=== PATIENT | female | born 1975 | race Caucasian/White ===

== ENCOUNTER 2019-10-17 22:17 | Emergency (ER) | payer OTHER, MEDICARE, SELFPAY ==
--- NOTE | ~2019-10-17 | XR_ITS ---
EXAMINATION: XR foot RT min 3V EXAM DATE: 10/17/2019 23:07 INDICATION: Stubbed toes on chair, 4th and 5th digit pain. TECHNIQUE: Right foot dorsoplantar, lateral and oblique projections obtained and reviewed. There is no prior study for comparison. FINDINGS: Right metatarsal bones unremarkable. There are no acute fractures or dislocations identifi ed. There is no subcutaneous gas. The soft tissue is unremarkable. There are no radiopaque foreig n bodies. IMPRESSION: 1. Right foot exam without acute osseous findings. Reviewed, dictated and finalized at location B.
[2019-10-17 22:26] VITALS: BP 131/95; PULSE 96; RESP 20; TEMP 36.7; O2SAT 97
--- NOTE | 2019-10-17 23:28 | ED.LOWEXIN ---
HPI - Extremity Injury (Lower) General Chief Complaint: Extremity Injury, Lower Stated Complaint: foot pain Time Seen by Provider: 10/17/19 22:26 History of Present Illness HPI Narrative: Patient is a 44-year-old female who presents to the ER after striking her foot on the spindle of a chair while chasing child. This occurred at about 3 in the afternoon. Has been unable to bear weight on the affected part of her foot due to pain. Worse when she flexes and extends at the toes well. No numbness or tingling. Mainly tender over the fourth digit is mildly over the fifth digit. Related Data Home Medications Medication Instructions Recorded Confirmed insulin aspart U-100 [Novolog unit SUBCUT 10/17/19 Flexpen U-100 Insulin] metformin 500 mg PO BID 10/17/19 10/17/19 omeprazole 20 mg PO DAILY 10/17/19 10/17/19 sumatriptan succinate 25 mg PO DAILY 10/17/19 10/17/19 Allergies Allergy/AdvReac Type Severity Reaction Status Date / Time iodine Allergy Mild Rash Verified 10/17/19 22:33 Parada Allergy Severe Anaphylactic Uncoded 10/17/19 22:33 Shock Review of Systems Musculoskeletal: Musculoskeletal: Reports arthralgias, Denies joint swelling and Denies muscle cramps Neurologic: Denies focal weakness and Denies numbness PMFSH Past Medical History Medical History (Updated 10/17/19 @ 23:34 by Aquilino Alford MD) COPD (chronic obstructive pulmonary disease) Diabetes History of bipolar disorder Hyperlipidemia associated with type 2 diabetes mellitus Surgical History Surgical History (Updated 10/17/19 @ 23:32 by Aquilino Alford MD) History of cholecystectomy Social History Social History (Updated 10/17/19 @ 23:32 by Aquilino Alford MD) Smoking status: Never smoker Exam Narrative: Exam Narrative: GENERAL: Well-appearing, well-nourished, and in no acute distress. HEAD: Normocephalic, atraumatic. EXTREMITIES: Tender to palpation of the fourth and fifth digits of the right toe as well as the MTPs. No swelling or bruising. SKIN: Warm, dry, no rash. NEURO: No focal deficits. Alert and oriented x3. PSYCH: Normal mood and affect. Course Course Emergency Course: Nurse applied brandt tape and applied a hard soled shoe and instructed patient on crutch use. Vital Signs Vital signs: Vital Signs Temperature 98.1 F 10/17/19 22:26 Pulse Rate 96 10/17/19 22:26 Respiratory Rate 20 10/17/19 22:26 Blood Pressure 131/95 H 10/17/19 22:26 Pulse Oximetry 97 10/17/19 22:26 Temperature 98.1 F 10/17/19 22:26 Pulse Rate 96 10/17/19 22:26 Respiratory Rate 20 10/17/19 22:26 Blood Pressure 131/95 H 10/17/19 22:26 Pulse Oximetry 97 10/17/19 22:26 MDM - Extremity Injury (Lower) Imaging Data My impression: XR right foot: Questionable fracture of the distal aspect of the proximal phalanx of the fourth digit. Discharge Plan Discharge Clinical Impression: Fracture of toe Patient Disposition: Home, Self-Care Condition: Stable Instructions: Toe Fracture (ED) Additional Instructions: Your weight as tolerated. Over the next week you would benefit from continue to wear your hard soled shoe and using crutches while you heal. There is a questionable fracture on x-ray of the fourth toe of your foot. Prescriptions: New hydrocodone-acetaminophen 5-325 mg tablet 1 tablet PO Q6H PRN (Reason: pain) Qty: 12 RF: 0 No Action metformin 500 mg Tablet 500 mg PO BID RF: 0 sumatriptan succinate 25 mg tablet 25 mg PO DAILY RF: 0 omeprazole 20 mg capsule,delayed release(DR/EC) 20 mg PO DAILY RF: 0 insulin aspart U-100 [Novolog Flexpen U-100 Insulin] 100 unit/mL (3 mL) insulin pen SUBCUT RF: 0 Follow-up/Referrals: Wilmer Carnes MD [Physician] - 1 Week PHYSICIAN,[employer] [Primary Care Provider] -
[2019-10-17 23:49] VITALS: BP 128/79; PULSE 88; RESP 18; O2SAT 97
== END 2019-10-17 23:54 | disposition home or self-care (01) ==
PROVIDERS: Emergency Provider Emergency Medicine
DX: S92.531A Displaced fracture of distal phalanx of right lesser toe(s), initial encounter for closed fracture (principal); J44.9 Chronic obstructive pulmonary disease, unspecified; E11.9 Type 2 diabetes mellitus without complications; Z79.4 Long term (current) use of insulin; Z79.84 Long term (current) use of oral hypoglycemic drugs; E78.5 Hyperlipidemia, unspecified; W22.03XA Walked into furniture, initial encounter
CPT/HCPCS: 73630; 99284

== ENCOUNTER 2019-10-26 10:23 | Outpatient (CLI) | payer OTHER, MEDICARE, SELFPAY ==
--- NOTE | ~2019-10-26 | XR_ITS ---
EXAMINATION: XR abdomen/kub 1V INDICATION: Abdominal pain with recent constipation TECHNIQUE: Supine views of the abdomen were obtained on 2 radiographs. COMPARISON: None FINDINGS: The bowel gas pattern is normal. There are no dilated loops of bowel. Surgical clips in the right upper quadrant are likely from prior cholecystectomy. Surgical changes noted at L4-5. There is mild bilateral hip osteoarthritis. The visualized lung bases are clear. IMPRESSION: 1. Unremarkable abdominal radiographs. Reviewed, dictated and finalized at location A.
[2019-10-26 12:06] LABS: Basophils Absolute Auto 0.1 K/mm3 (0.0-0.1); Basophils Percent Auto 0.9 % (0.2-1.2); Eosinophils Absolute Auto 0.7 K/mm3 (0-0.3); Eosinophils Percent Auto 8.5 % (0-4.4); Hematocrit 43.4 % (37.0-47.0); Hemoglobin 14.5 g/dL (12.0-15.0); Immature Granulocyte Absolute 0.02 K/mm3 (0.00-0.031); Immature Granulocyte Percent A 0.3 % (0-0.5); Lymphocytes Absolute Auto 1.96 K/mm3 (0.9-3.2); Lymphocytes Percent Auto 25.3 % (18.3-44.2); Mean Corpuscular HGB Conc 33.4 g/dl (32-36); Mean Corpuscular Hemoglobin 27.1 pg (26-34); Mean Platelet Volume 9.8 fl (7.4-10.4); Monocytes Absolute Auto 0.3 K/mm3 (0.1-0.6); Monocytes Percent Auto 4.4 % (2.6-8.5); Neutrophils Absolute Auto 4.7 K/mm3 (1.3-6.7); Neutrophils Percent Auto 60.6 % (45.5-73.1); Platelet Count Result 278 k/mm3 (150-375); Red Blood Count 5.36 M/mm3 (4.2-5.4); Red Cell Distribution Width 13.8 % (11.5-14.5); White Blood Count 7.8 K/mm3 (4.5-10.0)
[2019-10-26 12:24] LABS: Alanine Aminotransferase 63 U/L (4-35); Albumin Level 4.2 g/dL (3.5-5.1); Alkaline Phosphatase 83 U/L (38-126); Anion Gap 6 mmol/L (8-16); Aspartate Amino Transferase 53 U/L (14-36); Blood Urea Nitrogen 11 mg/dL (7-17); Calcium 9.1 mg/dL (8.4-10.2); Carbon Dioxide 24 mmol/L (22-30); Chloride 104 mmol/L (98-107); Cholesterol 249 mg/dL (0-200); Estimated Glomerular Filt Rate > 60; Glucose 263 mg/dL (65-105); HDL Direct 50 mg/dL; Potassium 4.1 mmol/L (3.4-5.0); Sodium 134 mmol/L (137-145); Triglycerides 226 mg/dL (<150)
[2019-10-26 12:32] LABS: Microalbumin Urine Random 15.4 mg/L (0-16.7)
[2019-10-26 12:33] LABS: Creatinine Urine 197.7 mg/dL; MALB Creatinine Ratio 7.8 mg/g (0-30)
[2019-10-26 12:35] LABS: LDL Cholesterol Direct 149 mg/dL
[2019-10-26 12:37] LABS: Hemoglobin A1C 8.7 % (<5.7)
[2019-10-26 12:54] LABS: Thyroid Stimulating Hormone 0.528 uIU/mL (0.465-4.680)
[2019-10-26 13:16] LABS: Free T4 Free Thyroxine 1.29 ng/mL (0.78-2.19); Vitamin D 25 Hydroxy 32.6 ng/mL
== END 2019-10-26 10:24 | disposition home or self-care (01) ==
LOC: ANHIMG 10:38
PROVIDERS: PCP Family Medicine; Visit Provider Nurse Practitioner
DX: R10.9 Unspecified abdominal pain (principal); K59.00 Constipation, unspecified
CPT/HCPCS: 36415; 74018; 80053; 80061; 82043; 82306; 83036; 84439; 84443; 84480; 85025

== ENCOUNTER 2020-06-06 14:34 | Outpatient (CLI) | payer MEDICARE, SELFPAY | END 2020-06-06 14:35 | disposition home or self-care (01) | LOC: ANHCOVIDVC 14:34 | PROVIDERS: PCP Family Medicine | DX: Z23 Encounter for immunization (principal) | CPT/HCPCS: 0001A; 91300 ==

== ENCOUNTER 2020-06-27 14:39 | Outpatient (CLI) | payer MEDICARE, SELFPAY | END 2020-06-27 14:40 | disposition home or self-care (01) | LOC: ANHCOVIDVC 14:40 | PROVIDERS: PCP Family Medicine | DX: Z23 Encounter for immunization (principal) | CPT/HCPCS: 0002A; 91300 ==

== ENCOUNTER 2020-11-10 07:52 | Outpatient (CLI) | payer MEDICARE, SELFPAY ==
[2020-11-10 08:43] LABS: Basophils Absolute Auto 0.1 K/mm3 (0.0-0.1); Basophils Percent Auto 0.7 % (0.2-1.2); Eosinophils Absolute Auto 0.4 K/mm3 (0-0.3); Eosinophils Percent Auto 6.4 % (0-4.4); Hematocrit 40.8 % (37.0-47.0); Hemoglobin 13.7 g/dL (12.0-15.0); Immature Granulocyte Absolute 0.01 K/mm3 (0.00-0.031); Immature Granulocyte Percent A 0.1 % (0-0.5); Lymphocytes Absolute Auto 1.54 K/mm3 (0.9-3.2); Mean Corpuscular HGB Conc 33.6 g/dl (32-36); Mean Corpuscular Hemoglobin 27.4 pg (26-34); Mean Corpuscular Volume 81.6 fl (80-100); Mean Platelet Volume 9.7 fl (7.4-10.4); Monocytes Absolute Auto 0.3 K/mm3 (0.1-0.6); Monocytes Percent Auto 4.8 % (2.6-8.5); Neutrophils Absolute Auto 4.4 K/mm3 (1.3-6.7); Platelet Count Result 258 k/mm3 (150-375); Red Cell Distribution Width 13.9 % (11.5-14.5); White Blood Count 6.7 K/mm3 (4.5-10.0)
[2020-11-10 09:19] LABS: Alanine Aminotransferase 92 U/L (4-35); Albumin Level 4.2 g/dL (3.5-5.1); Alkaline Phosphatase 79 U/L (38-126); Anion Gap 9 mmol/L (8-16); Aspartate Amino Transferase 70 U/L (14-36); Bilirubin,Total 1.2 mg/dL (0.2-1.3); Blood Urea Nitrogen 10 mg/dL (7-17); CRP < 0.5 mg/dL (<1.0); Carbon Dioxide 21 mmol/L (22-30); Chloride 106 mmol/L (98-107); Creatine Kinase 65 U/L (30-135); Estimated Glomerular Filt Rate > 60; Glucose 252 mg/dL (65-110); Potassium 4.2 mmol/L (3.4-5.0); Sodium 136 mmol/L (137-145)
[2020-11-10 09:22] LABS: Complement C3 130 mg/dL (88-165); Immunoglobulin A 148 mg/dL (70-400)
[2020-11-10 09:45] LABS: Total Triiodothyronine (T3) 1.18 NG/ML (0.97-1.69)
[2020-11-10 10:14] LABS: Erythrocyte Sedimentation Rate 23 mm/hr (0-20)
[2020-11-10 10:23] LABS: Rheumatoid Factor < 8.6 IU/ML (<12)
[2020-11-10 11:26] LABS: Hepatitis C Virus Antibody Negative (Negative)
[2020-11-13 18:59] LABS: ANA Pattern Nuclear, Speckled; Anti Nuclear Antibody Titer >=1:1280 (Negative)
[2020-11-13 19:59] LABS: Anti Centromere B Antibody <1.0; Chromatin Antibody <1.0; RNP Antibodies <1.0; SS-A <1.0; SS-B <1.0; Scleroderma 70 Antibody <1.0
[2020-11-14 23:57] LABS: Histone Antibody <1.0 U (<1.0)
[2020-11-15 11:09] LABS: Complement Total CH50 >60 U/mL (31-60)
== END 2020-11-10 07:53 | disposition home or self-care (01) ==
PROVIDERS: PCP Family Medicine; Visit Provider Nurse Practitioner
DX: M79.642 Pain in left hand (principal); M79.641 Pain in right hand
CPT/HCPCS: 36415; 80053; 82550; 82784; 83516; 84480; 84550; 85025; 85652; 86038; 86039; 86140; 86160; 86162; 86225; 86235; 86430; 86803

== ENCOUNTER 2021-03-15 10:37 | Emergency (ER) | payer MEDICARE, SELFPAY ==
--- NOTE | ~2021-03-15 | XR_ITS ---
EXAMINATION: XR chest 1V portable DATE: 03/15/2021 11:05 INDICATION: Cough, shortness of breath. COVID positive. TECHNIQUE: frontal view of the chest was obtained. COMPARISON: None FINDINGS: The lungs are clear with no focal airspace opacities, pulmonary edema, pleural effusion or pneumothor ax. The cardiomediastinal silhouette is normal. Mild scattered degenerative skeletal changes in the s pine and bilateral shoulders. IMPRESSION: 1. No acute cardiopulmonary disease. Reviewed, dictated and finalized at location A. PHERE ARCHITECT
[2021-03-15 10:40] VITALS: BP 170/84; PULSE 85; RESP 16; TEMP 36.6; O2SAT 97
[2021-03-15 11:24] VITALS: O2SAT 98
[2021-03-15] MEDS: IPRATROPIUM BR 0.02% INH SOLN 0.5 MG/2.5 ML VIAL INHALATION (11:26)
[2021-03-15] MEDS: ALBUTEROL SULFATE NEB 2.5 MG/0.5 ML INH 5 MG INHALATION (11:26)
[2021-03-15 11:29] VITALS: PULSE 81; RESP 21
[2021-03-15 12:10] VITALS: BP 133/75; PULSE 88; O2SAT 96
--- NOTE | 2021-03-15 12:47 | ED.GENADULT ---
HPI - General Adult General Chief complaint: Upper Respiratory Infection <Nati Wallis PA-C - Last Filed: 03/15/21 13:37> Stated complaint: fever, sob <Nati Wallis PA-C - Last Filed: 03/15/21 13:37> Time Seen by Provider: 03/15/21 10:50 <Nati Wallis PA-C - Last Filed: 03/15/21 13:37> Source: patient <NATALY Miles Last Filed: 03/15/21 13:37> Mode of arrival: ambulatory <NATALY Miles Last Filed: 03/15/21 13:37> Limitations: no limitations <NATALY Miles Last Filed: 03/15/21 13:37> History of Present Illness HPI narrative: Patient is a 45-year-old female with asthma presenting chief complaint of chest congestion and low-grade fevers over the past few days. Patient reports that she has had a cough. She reports she has been using her albuterol inhaler but has not noticed any wheezing. Patient reports that she saw her primary care provider 2 days ago who prescribed hydrochlorothiazide, but she has not taken it. Patient reports that she has a history of bronchitis and pneumonia so she wants to make sure that was not the cause of her symptoms.Patient denies chest pain, n/v/d, or any other emergent symptoms. <Nati Wallis PA-C - Last Filed: 03/15/21 13:37> Related Data Home medications: Home Medications Medication Instructions Recorded Confirmed insulin aspart U-100 [Novolog unit SUBCUT 10/17/19 Flexpen U-100 Insulin] metformin 500 mg PO BID 10/17/19 10/17/19 omeprazole 20 mg PO DAILY 10/17/19 10/17/19 sumatriptan succinate 25 mg PO DAILY 10/17/19 10/17/19 <Nati Wallis PA-C - Last Filed: 03/15/21 13:37> Allergies/adverse reactions: Allergies Allergy/AdvReac Type Severity Reaction Status Date / Time iodine Allergy Mild Rash Verified 10/17/19 22:33 Parada Allergy Severe Anaphylactic Uncoded 10/17/19 22:33 Shock <Nati Wallis PA-C - Last Filed: 03/15/21 13:37> Review of Systems Review of Systems: CONSTITUTIONAL: Reports intermittent low-grade fever denies chills, or sweats. EYES: Denies visual changes, redness, or discharge. ENT: Denies rhinorrhea, congestion, sore throat, or otalgia. CARDIOVASCULAR: Denies chest pain, palpitations, or edema. RESPIRATORY: Reports cough and chest congestion GASTROINTESTINAL: Denies abdominal pain, nausea, vomiting, or diarrhea. GENITOURINARY: Denies dysuria or hematuria. SKIN: Denies rash or itching. MUSCULOSKELETAL: Denies back pain, joint pain, or myalgia. NEUROLOGIC: Denies headache, numbness, dizziness, or weakness. PSYCHIATRIC: Denies anxiety or depression. <Nait Wallis PA-C - Last Filed: 03/15/21 13:37> PMFSH Past Medical History Medical History: Medical History (Updated 03/15/21 @ 12:52 by Nati Wallis PA-C) COPD (chronic obstructive pulmonary disease) Diabetes History of bipolar disorder Hyperlipidemia associated with type 2 diabetes mellitus <Nati Wallis PA-C - Last Filed: 03/15/21 13:37> Surgical History Surgical History: Surgical History (Updated 10/17/19 @ 23:32 by Aquilino Alford MD) History of cholecystectomy <Nati Wallis PA-C - Last Filed: 03/15/21 13:37> Social History Social History: Social History (Updated 10/17/19 @ 23:32 by Aquilino Alford MD) Smoking status: Never smoker <Nati Wallis PA-C - Last Filed: 03/15/21 13:37> Exam Narrative: GENERAL: Well-appearing, well-nourished, and in no acute distress. HEAD: Normocephalic, atraumatic. EYES: PERRLA and EOMI. CHEST: Clear to auscultation. No respiratory distress. No wheezes rales or rhonchi. No tachypnea. Air movement noted. HEART: Regular rate and rhythm. EXTREMITIES: Normal range of motion. No edema. SKIN: Warm, dry, no rash. NEURO: No focal deficits. Alert and oriented x3. PSYCH: Normal mood and affect. <Nati Wallis PA-C - Last Filed: 03/15/21 13:37> Course BUSINESS AGENT/PA Physician Supervision For this patient encounter, I reviewe
[2021-03-15 13:27] VITALS: BP 132/77; PULSE 82; RESP 18; TEMP 37; O2SAT 100
== END 2021-03-15 13:29 | disposition home or self-care (01) ==
PROVIDERS: Emergency Provider Emergency Medicine; PCP Family Medicine
DX: U07.1 COVID-19 (principal); E11.69 Type 2 diabetes mellitus with other specified complication; E78.5 Hyperlipidemia, unspecified; J44.9 Chronic obstructive pulmonary disease, unspecified; Z79.4 Long term (current) use of insulin; Z79.84 Long term (current) use of oral hypoglycemic drugs; Z87.01 Personal history of pneumonia (recurrent)
CPT/HCPCS: 71045; 94640; 99283

== ENCOUNTER 2021-06-05 10:03 | Emergency (ER) | payer MEDICARE, SELFPAY ==
[2021-06-05 10:07] VITALS: BP 126/90; PULSE 98; RESP 12; TEMP 36.4; O2SAT 100
[2021-06-05 10:13] VITALS: BP 126/90; PULSE 98; RESP 12; TEMP 36.4; O2SAT 100
--- NOTE | 2021-06-05 10:14 | ED.URI ---
HPI - URI/Sore Throat General Chief Complaint: Upper Respiratory Infection Stated Complaint: COUGH/DRY THROAT/WEAK Time Seen by Provider: 06/05/21 10:14 Source: patient Mode of arrival: ambulatory Limitations: no limitations History of Present Illness HPI Narrative: 45-year-old female presents with complaint of runny nose, nasal congestion, postnasal drainage, hoarse voice, ears itching, cough for 1 week. States that she is getting short of breath with coughing fits and with exertion over the last 2 to 3 days. Reports history of COPD and asthma and has been out of inhalers. Did have nebulizer treatment but ran out of that 1 week ago. Does have appointment with new product test specialist coming up. Denies fever, chills, body aches. Had her Covid booster 1 week ago. Took Zyrtec for 1 to 2 days but did not help so she stopped. History of seasonal allergies when she lived in [place] but reports no problems here since. All systems reviewed and negative except as noted above. Related Data Home Medications Medication Instructions Recorded Confirmed insulin aspart U-100 [Novolog unit SUBCUT 10/17/19 Flexpen U-100 Insulin] metformin 500 mg PO BID 10/17/19 10/17/19 omeprazole 20 mg PO DAILY 10/17/19 10/17/19 sumatriptan succinate 25 mg PO DAILY 10/17/19 10/17/19 Allergies Allergy/AdvReac Type Severity Reaction Status Date / Time iodine Allergy Mild Rash Verified 10/17/19 22:33 Parada Allergy Severe Anaphylactic Uncoded 10/17/19 22:33 Shock Review of Systems Review of Systems: CONSTITUTIONAL: Denies fever, chills, or sweats. EYES: Denies visual changes, redness, or discharge. ENT: Reports rhinorrhea, congestion, sore throat. Denies otalgia. CARDIOVASCULAR: Denies chest pain, palpitations, or edema. RESPIRATORY: Reports cough or dyspnea. GASTROINTESTINAL: Denies abdominal pain, nausea, vomiting, or diarrhea. GENITOURINARY: Denies dysuria or hematuria. SKIN: Denies rash or itching. MUSCULOSKELETAL: Denies back pain, joint pain, or myalgia. NEUROLOGIC: Denies headache, numbness, or weakness. PSYCHIATRIC: Denies anxiety or depression. All other systems reviewed are negative, except as documented in HPI. [facility] Past Medical History Medical History (Updated 06/05/21 @ 10:23 by Viola Nelson NP) COPD (chronic obstructive pulmonary disease) Diabetes History of bipolar disorder Hyperlipidemia associated with type 2 diabetes mellitus Surgical History Surgical History (Updated 10/17/19 @ 23:32 by Aquilino Alford MD) History of cholecystectomy Social History Social History (Updated 10/17/19 @ 23:32 by Aquilino Alford MD) Smoking status: Never smoker Comments At time of signature, agree with nursing past medical, surgical, social and family history. There is no relevant family history pertinent to the presenting complaint. Exam Narrative: GENERAL: This is a well-nourished, well-developed patient, in no apparent distress. HEAD: normocephalic, atraumatic. EYES: PERRL. Sclera clear/white. Vision is grossly intact. EARS: External ears normal, auditory canals clear and without drainage, TMs normal without perforation. Hearing grossly intact. NOSE: External nose normal with clear nasal discharge, nares without redness, no rhinorrhea. THROAT: Mucous membranes moist, mild erythema to posterior pharynx with clear postnasal drainage. Hoarse voice noted. NECK: Neck supple, non-tender without lymphadenopathy, masses or thyromegaly. CARDIOVASCULAR: Regular rate and rhythm without murmurs, gallops, or rubs. RESPIRATORY: Clear to auscultation. Breath sounds equal bilaterally. Mild expiratory wheeze to lower lobes. SKIN: warm, Dry, intact with no suspicious lesions or rash, good texture and turgor. NEURO: awake, alert, and oriented to person, place and time. There were no obvious focal neurologic abnormalities. EXTREMITIES: Normal range of motion to all extremities. Course Course Level of Care: Express Care Visit
== END 2021-06-05 10:29 | disposition home or self-care (01) ==
PROVIDERS: Emergency Provider Nurse Practitioner Family; PCP Family Medicine
DX: J06.9 Acute upper respiratory infection, unspecified (principal); J30.2 Other seasonal allergic rhinitis; J04.0 Acute laryngitis; J44.9 Chronic obstructive pulmonary disease, unspecified; E11.9 Type 2 diabetes mellitus without complications; E78.5 Hyperlipidemia, unspecified; Z79.84 Long term (current) use of oral hypoglycemic drugs; Z79.4 Long term (current) use of insulin
CPT/HCPCS: 99213; G0463

== ENCOUNTER 2021-08-06 15:20 | Outpatient (CLI) | payer MEDICARE, SELFPAY ==
--- NOTE | ~2021-08-06 | US_ITS ---
EXAMINATION: US soft tissue head and neck DATE: 08/06/2021 15:46 INDICATION: Enlarged lymph node. TECHNIQUE: Multiple grayscale and Doppler ultrasound images of the neck were obtained. COMPARISON: None FINDINGS: There are normal lymph nodes in right neck. IMPRESSION: 1. No abnormal neck mass or lymphadenopathy. Reviewed, dictated and finalized at location B.
== END 2021-08-06 15:21 ==
LOC: MICIMG 15:22
PROVIDERS: PCP Family Medicine; Visit Provider Nurse Practitioner Adult Health
DX: R59.1 Generalized enlarged lymph nodes (principal)
CPT/HCPCS: 76536

== ENCOUNTER 2021-09-04 15:43 | Outpatient (CLI) | payer MEDICARE, SELFPAY ==
--- NOTE | ~2021-09-04 | XR_ITS ---
XR chest 2V 09/04/2021 16:16 Indication: Shortness of breath. Post Covid. Procedure: 2 view chest Comparison: 03/15/2021 Findings: Heart size normal. No focal air space disease, pulmonary edema, pleural effusion or suspect ed pneumothorax. No acute osseous abnormality. Impression: 1: No acute cardiopulmonary disease. Reviewed, dictated and finalized at location A. Impression: 1: No acute cardiopulmonary disease.
== END 2021-09-04 15:44 | disposition home or self-care (01) ==
PROVIDERS: PCP Family Medicine; Visit Provider Internal Medicine Pulmonary Disease
DX: U09.9 Post COVID-19 condition, unspecified (principal)
CPT/HCPCS: 71046

== ENCOUNTER 2021-09-14 07:59 | Outpatient (CLI) | payer MEDICARE, SELFPAY ==
[2021-09-14 08:45] VITALS: PULSE 80; O2SAT 96
[2021-09-14 08:50] VITALS: PULSE 89; O2SAT 97
[2021-09-14 09:05] VITALS: PULSE 84; O2SAT 97
--- NOTE | 2021-09-14 09:09 | HOMEO2EVAL ---
Evaluation was performed at [facility] Home Oxygen Evaluation RC: Home Oxygen (O2) Evaluation Start: 09/14/21 09:03 Freq: Status: Active Protocol: RPE Activity Type Activity Date Activity User E-sign Co-sign Detail Recorded Client Recorded Date Recorded By Document 09/14/21 08:45 [facility] [email or web address] 09/14/21 09:07 [facility] Document 09/14/21 08:50 [facility] [email or web address] 09/14/21 09:07 [facility] Document 09/14/21 09:05 [facility] [email or web address] 09/14/21 09:07 [facility] 09/14/21 09/14/21 09/14/21 08:45 08:50 09:05 Home O2 Evaluation Test Phase Resting Exercise Resting Oxygen Delivery Room Air Room Air Room Air Pulse Oximetry (90-100 %) 96 97 97 Pulse Rate (60-100 beats/min) 80 89 84 Activity Tolerance Good Good Good Ambulation Distance (feet) 300 Ambulation Distance (meters) 91.43 Home Oxygen Evaluation Comments PATIENT DOES NOT REQUIRE HOME O2. Treatment Charges O2 Evaluation - Outpatient
== END 2021-09-14 08:00 | disposition home or self-care (01) ==
PROVIDERS: PCP Family Medicine; Visit Provider Internal Medicine Pulmonary Disease
DX: R06.02 Shortness of breath (principal)
CPT/HCPCS: 94618

== ENCOUNTER 2021-10-09 07:58 | Outpatient (CLI) | payer MEDICARE, SELFPAY ==
--- NOTE | 2021-11-12 21:35 | WPDSLEEPSTUD ---
Sleep Study Date of Study: 10/09/21 Ordering Provider: Marv Armstrong MD Interpreting Physician: Michelle Carmen DO Sleep Study Type: Split Polysomnogram Height: 1.57 m Weight: 92.533 kg Body Mass Index: 37.3 Neck Circumference (inches): 14 [place]: 18 Reason for Sleep Study The patient had a sleep study on April 09, 2018 with an AHI of 13 and a REM AHI of 60.8 with desaturation down to 73%. CPAP titration on May 21, 2018 showed an optimal pressure of CPAP 11 cm H2O with residual AHI being 0. The patient has not been compliant with CPAP. Needs to requalify for PAP Therapy. Sleep History The patient is a 46-year-old female with asthma-COPD overlap, post COVID syndrome, diabetes, hyperlipidemia, GERD, migraines and previously diagnosed sleep apnea that had a sleep study ordered by her nremt so she can requalify for PAP therapy. *The patient didn't fill out the sleep intake forms.* [facility] Past Medical History Medical History COPD (chronic obstructive pulmonary disease) Diabetes History of bipolar disorder Hyperlipidemia associated with type 2 diabetes mellitus Surgical History Surgical History History of cholecystectomy Social History Social History Smoking status: Former smoker Medications Home Medications Medication Instructions Recorded Confirmed Type insulin aspart U-100 100 unit/mL unit subcut 10/17/19 10/25/21 History (3 mL) subcutaneous pen (Novolog Flexpen U-100 Insulin aspart) metformin 500 mg tablet 500 mg PO BID 10/17/19 10/25/21 History omeprazole 20 mg capsule,delayed 20 mg PO DAILY 10/17/19 10/25/21 History release sumatriptan succinate 25 mg tablet 25 mg PO DAILY 10/17/19 10/25/21 History albuterol sulfate 2.5 mg/3 mL 2.5 mg (3 mL) inhalation Q4-6H PRN 06/05/21 10/25/21 Rx (0.083 %) solution for nebulization shortness of breath or wheezing #90 mL fluticasone propionate 50 1 spray intranasal BID #16 grams 06/05/21 10/25/21 Rx mcg/actuation nasal spray,suspension (Flonase Allergy Relief) fluticasone fur. 200 mcg-umeclid 1 inh inhalation DAILY #60 ea 08/29/21 10/25/21 Rx 62.5 mcg-vilant 25 mcg inhalat.powder eszopiclone 2 mg tablet 2 mg PO QHS #1 tablet 09/20/21 10/25/21 Rx prednisone 20 mg tablet 40 mg PO DAILY 5 days #10 tabs 10/19/21 10/25/21 Rx azithromycin 250 mg tablet See Rx Instructions PO .COMPLEX #6 10/21/21 10/25/21 Rx tabs albuterol sulfate 90 mcg/actuation 2 puff inhalation QID PRN 10/25/21 10/25/21 Rx aerosol inhaler shortness of breath or wheezing #8.5 grams budesonide 0.5 mg/2 mL suspension 0.5 mg (2 mL) inhalation DAILY #60 10/25/21 10/25/21 Rx for nebulization mL ipratropium 0.5 mg-albuterol 3 mg 3 ml inhalation Q4H #180 mL 10/25/21 10/25/21 Rx (2.5 mg base)/3 mL nebulization soln prednisone 10 mg tablet 60 mg PO DAILY #30 tabs 10/25/21 10/25/21 Rx Sleep Procedure This test was performed using the [employer] multiple channel system including EOG, EEG, submental EMG, EKG, nasal and oral airflow using thermistors and nasal pressure sensors, chest and abdominal belts for body position data, and pulse oximetry. Video monitoring was also performed. The study was scored using [facility] guidelines. Sleep Architecture Diagnostic: The patient had a total recording time of 173.2 minutes and total sleep time of 126 minutes. The sleep efficiency was 72.7%. Sleep latency was 6.7. REM sleep was not achieved during this portion of the study. The patient had 15 awakenings. The patient spent 13.5 minutes, 10.7% of total sleep time in stage N1. The patient spent 107 minutes, 84.9% of total sleep time in stage N2. The patient spent 5.5 minutes, 4.4% of total sleep time in stage N3. The patient spent 0 minutes in REM sleep. Treatment: The homa
[2021-11-12 21:41] VITALS: BMI 37.3
== END 2021-10-10 05:44 | disposition home or self-care (01) ==
LOC: ANHCSM 08:00
PROVIDERS: PCP Family Medicine; Visit Provider Internal Medicine Pulmonary Disease
DX: G47.10 Hypersomnia, unspecified (principal); G47.33 Obstructive sleep apnea (adult) (pediatric)
CPT/HCPCS: 95811

== ENCOUNTER 2021-10-18 06:50 | Outpatient (CLI) | payer MEDICARE, SELFPAY ==
--- NOTE | 2021-10-18 07:15 | ECHO_ITS ---
Patient Info Name: Oumou Middleton Age: 46 years : 1975 Gender: Female Ht: 62 in Wt: 205 lbs BSA: 2.06 m2 HR: 73 bpm BP: 117 / 89 mmHg Technical Quality: Fair Exam Date: 10/18/2021 8:18 AM Exam Location: [facility] Patient Status: Outpatient Admit Date: 10/18/2021 Staff Ordering Physician: Marv Armstrong MD Churn Operator: Elizabeth Ramirez RDCS Attending Provider: Marv Armstrong MD Referring Physician: Nathaniel WATSON; Exam Type: CA echo doppler color flow Study Info Indications U09.9 - POST COVID-19 CONDITION, UNSPECIFIED Complete two-dimensional, color flow and Doppler transthoracic echocardiogram is performed. Summary 1. Complete two-dimensional, color flow and Doppler transthoracic echocardiogram is performed. 2. Left ventricular chamber dimension is normal. 3. Left ventricular systolic function is normal, estimated at 55-60%. 4. The left ventricular diastolic function is grade II diastolic dysfunction. 5. E/e' 12 is mildly elevated. 6. Global longitudinal strain is mildly abnormal at -16.1%. 7. No pulmonary hypertension, estimated pulmonary arterial systolic pressure is 21 mmHg. Left Ventricle E/e' 12 is mildly elevated. Global longitudinal strain is mildly abnormal at -16.1%. Left ventricular chamber dimension is normal. Left ventricular systolic function is normal, estimated at 55-60%. The left ventricular diastolic function is grade II diastolic dysfunction. Right Ventricle Right ventricular systolic function is normal and with normal TAPSE 2.2 cm. Right ventricular chamber dimension is normal. Left Atria Left atrial chamber dimension is normal. Right Atria Right atrial chamber dimension is normal. Aortic Valve The aortic valve is not well visualized. Cannot determine number of aortic valve leaflets. There is no aortic valve stenosis based on normal valve area and gradients. There is no aortic valve regurgitation. Pulmonic Valve There is no pulmonic regurgitation. Mitral Valve There is no mitral valve stenosis. There is no mitral valve regurgitation. Tricuspid Valve There is no tricuspid valve regurgitation. No pulmonary hypertension, estimated pulmonary arterial systolic pressure is 21 mmHg. Pericardium/Pleural There is no pericardial effusion. Inferior Vena Cava Normal inferior vena cava with >50% collapse upon inspiration consistent with normal right atrial pressure, 5 mmHg. Aorta The aortic root size at the sinus of Valsalva is not well visualized. Left Ventricular Outflow Tract Name Value Normal LVOT 2D LVOT Diameter 2.0 cm LVOT Doppler LVOT Peak Gradient 3 mmHg LVOT Mean Gradient 2 mmHg LVOT VTI 17 cm LVOT VTI/AV VTI Ratio 0.9 LVOT Stroke Volume 55 ml LVOT CO 4.4 l/min LVOT CI 2.1 l/min/m2 Pulmonic Valve Name Value
--- NOTE | 2021-10-18 12:16 | WPDPFTINT ---
PFT Procedure Performed PFT Procedure Performed Spirometry with Pre/Post Bronchodilator Plethysmography (Lung Vol) Diffusing Cap (DLCO) Flow Vol Loop PFT Interpretation This is a pulmonary function test with pre and post-bronchodilator spirometry, plethysmography and diffusing capacity. The test was performed and results interpreted in accordance with the 2019 and 2005 ATS/ERS Task Force guidelines respectively using the Global Lung Function Initiative-2012 reference equations. Patient demonstrated good effort and cooperation. Reproducibility criteria were met. The quality of the pre bronchodilator spirometry maneuver was Grade B and post bronchodilator spirometry maneuver was Grade E. Of note the patient had coughing throughout all testing. Patient had difficulty with maximal inspiration. Patient could only complete 1 post bronchodilator maneuver due to the coughing. Findings: Spirometry: The contour the pre bronchodilator inspiratory and expiratory flow tracing are normal. The pre bronchodilator FVC is 3.02 L, 89% predicted. The pre bronchodilator FEV1 is 2.49 L, 91% predicted. The pre bronchodilator FEV1: FVC ratio was 82%. The post bronchodilator FVC is 2.76 L, representing a 9% decrease. The post bronchodilator FEV1 is 2.37 L, representing a 5% decrease. The post bronchodilator FEV1: FVC ratio was 86%. Plethysmography: The total lung capacity is 3.77 L, 77% predicted. The functional residual capacity is 2.19 L, 80% predicted. The residual volume is 0.75 L, 44% predicted. Diffusing capacity: The diffusing capacity unadjusted for hemoglobin and carboxyhemoglobin is 16.7, 74% predicted. The diffusing capacity adjusted for alveolar volume is 4.68, 100% predicted. Impression: There is a mild restrictive ventilatory abnormality with a normal FEV1. The spirometry is normal without evidence of an obstructive abnormality. The post bronchodilator spirometry was performed only once due to coughing and therefore reproducibility was not confirmed, using the available data there is no significant improvement after inhaling a single dose of albuterol. The diffusing capacity is normal. There are no prior studies for comparison
== END 2021-10-18 06:51 | disposition home or self-care (01) ==
PROVIDERS: PCP Family Medicine; Visit Provider Internal Medicine Pulmonary Disease
DX: R06.00 Dyspnea, unspecified (principal); U09.9 Post COVID-19 condition, unspecified; R94.2 Abnormal results of pulmonary function studies; R93.1 Abnormal findings on diagnostic imaging of heart and coronary circulation
CPT/HCPCS: 93306; 94060; 94726; 94729

== ENCOUNTER 2021-10-19 13:04 | Emergency (ER) | payer MEDICARE, SELFPAY ==
[2021-10-19] VITALS (13 sets, daily range): BP systolic 118–158; BP diastolic 66–94; PULSE 88–111; RESP 9–28; TEMP 36.4; O2SAT 98–100
--- NOTE | ~2021-10-19 | CT_ITS ---
EXAMINATION: CT soft tissue neck chest wo DATE: 10/19/2021 15:04 INDICATION: Stridor. Shortness of breath. TECHNIQUE: Computed tomography (CT) of the neck and chest was performed without intravenous contrast. Automated exposure control and iterative reconstruction technique were employed. The dose-length pro duct was 1289.87 mGy-cm. COMPARISON: None FINDINGS: CT NECK: There are no pathologically enlarged lymph nodes. The pharynx and larynx are normal. There i s mild cervical spondylosis. CT CHEST: The lungs demonstrate minimal atelectasis. No pleural effusion. The heart size is normal. N o pericardial effusion. There are no pathologically enlarged lymph nodes. There is mild thoracic spon dylosis. IMPRESSION: 1. No etiology for the patient's symptoms. Reviewed, dictated and finalized at location A.
--- NOTE | 2021-10-19 13:10 | ECG_ITS ---
Measurements Intervals [place] Rate: 95 P: 34 [place]: 182 QRS: 8 QRSD: 81 T: 58 QT: 322 QTc: 406 Interpretive Statements SINUS RHYTHM NO PREVIOUS ECG AVAILABLE FOR COMPARISON Electronically Signed On 10-23-2021 20:21:50 CDT by Ashlee Negro M.D.
--- NOTE | 2021-10-19 13:25 | ED.GENADULT ---
HPI - General Adult General Chief complaint: Shortness of Breath/Dyspnea Stated complaint: SOB Time Seen by Provider: 10/19/21 13:08 History of Present Illness HPI narrative: 46-year-old female with diagnosis of long COVID presented to the emergency department for evaluation of increased difficulty breathing. Patient states since she was diagnosed with COVID in February she has had intermittent issues with breathing. Patient has been following up with her silverlight developer, Dr. Armstrong. Patient had pulmonary function testing yesterday and states since then she has had increased difficulty breathing. Patient presented to an urgent care and was transferred to the hospital by ambulance. Patient is speaking during inspiration and does have some stridorous sound. Related Data Home Medications Medication Instructions Recorded Confirmed insulin aspart U-100 100 unit/mL unit subcut 10/17/19 09/20/21 (3 mL) subcutaneous pen (Novolog Flexpen U-100 Insulin aspart) metformin 500 mg tablet 500 mg PO BID 10/17/19 09/20/21 omeprazole 20 mg capsule,delayed 20 mg PO DAILY 10/17/19 09/20/21 release sumatriptan succinate 25 mg tablet 25 mg PO DAILY 10/17/19 09/20/21 Allergies Allergy/AdvReac Type Severity Reaction Status Date / Time lynn Allergy Severe Anaphylactic Verified 10/19/21 13:23 Shock lynn flavor Allergy Severe Anaphylactic Verified 10/19/21 13:23 Shock iodine Allergy Mild Rash Verified 10/19/21 13:23 Review of Systems Review of Systems: CONSTITUTIONAL: Denies fever, chills, or sweats. EYES: Denies visual changes, redness, or discharge. ENT: Denies rhinorrhea, congestion, sore throat, or otalgia. CARDIOVASCULAR: Denies chest pain, palpitations, or edema. RESPIRATORY: See HPI GASTROINTESTINAL: Denies abdominal pain, nausea, vomiting, or diarrhea. GENITOURINARY: Denies dysuria or hematuria. SKIN: Denies rash or itching. MUSCULOSKELETAL: Denies back pain, joint pain, or myalgia. NEUROLOGIC: Denies headache, numbness, or weakness. [facility] Past Medical History Medical History COPD (chronic obstructive pulmonary disease) Diabetes History of bipolar disorder Hyperlipidemia associated with type 2 diabetes mellitus Surgical History Surgical History History of cholecystectomy Social History Social History Smoking status: Former smoker Exam Narrative: APPEARANCE: Well appearing, no pain, no distress, well-nourished. HEAD: normocephalic, atraumatic. EYES: PERRLA/EOMI, conjunctivae clear. NOSE: Normal no drainage THROAT: Pharynx clear, no exudate. NECK: Supple. No adenopathy, no masses. RESPIRATORY: Airway patent, respirations nonlabored. Patient had intermittent stridorous inspirations. CARDIOVASCULAR: Regular rate and rhythm without murmurs rubs or gallops. ABDOMINAL: Soft, nontender, nondistended, normal bowel sounds MUSCULOSKELETAL: Moves all extremities. Strength/ROM intact, No edema, No calf tenderness. NEURO: Alert. Cranial nerves II through XII intact. Grossly intact SKIN: Warm, dry. Normal Color Course Course Emergency Course: CT showed no structural abnormality no evidence of pneumonia. Patient was resting comfortably with no stridor after her initial breathing treatment. Case was discussed with pulmonology and Dr. Alcala was comfortable with starting a prednisone treatment for the next 5 days and recommended close follow-up. I feel the patient is safe for discharge to home and patient is well-appearing. Patient was also comfortable to plan for discharge to home and she was updated on reasons to return to the ED. Vital Signs Vital signs: Vital Signs Temperature 97.6 F 10/19/21 13:00 Pulse Rate 97 10/19/21 13:00 Respiratory Rate 28 H 10/19/21 13:00 Blood Pressure 158/94 H 10/19/21 13:00 Pulse Oximetry 98 10/19/21 1
[2021-10-19] MEDS: ALBUTEROL SULFATE NEB 2.5 MG/3 ML INH 5 MG INHALATION ×2 (13:27→15:59)
[2021-10-19] MEDS: IPRATROPIUM BR 0.02% INH SOLN 0.5 MG/2.5 ML VIAL 1 MG INHALATION (13:27)
[2021-10-19] MEDS: methylPREDNISolone SOD SUCC 125 MG VIAL IV PUSH (13:35)
[2021-10-19] MEDS: LORazepam INJ (*CRX) 2 MG/ML VIAL 0.5 MG IV PUSH (13:35)
[2021-10-19 13:58] LABS: Basophils Absolute Auto 0.1 K/mm3 (0.0-0.1); Basophils Percent Auto 0.7 % (0.2-1.2); Eosinophils Absolute Auto 0.2 K/mm3 (0-0.3); Eosinophils Percent Auto 2.4 % (0-4.4); Hematocrit 38.9 % (37.0-47.0); Hemoglobin 12.9 g/dL (12.0-15.0); Immature Granulocyte Absolute 0.02 K/mm3 (0.00-0.031); Immature Granulocyte Percent A 0.3 % (0-0.5); Mean Corpuscular HGB Conc 33.2 g/dl (32-36); Mean Corpuscular Hemoglobin 27.5 pg (26-34); Mean Corpuscular Volume 82.9 fl (80-100); Mean Platelet Volume 9.4 fl (7.4-10.4); Monocytes Absolute Auto 0.5 K/mm3 (0.1-0.6); Monocytes Percent Auto 6.2 % (2.6-8.5); Neutrophils Percent Auto 67.4 % (45.5-73.1); Platelet Count Result 220 k/mm3 (150-375); Red Blood Count 4.69 M/mm3 (4.2-5.4); Red Cell Distribution Width 13.8 % (11.5-14.5); White Blood Count 7.4 K/mm3 (4.5-10.0)
[2021-10-19 14:17] LABS: Potassium 3.8 mmol/L (3.4-5.0)
[2021-10-19 14:53] LABS: Alanine Aminotransferase 63 U/L (6-35); Albumin Level 4.1 g/dL (3.5-5.1); Alkaline Phosphatase 82 U/L (38-126); Anion Gap 7 mmol/L (8-16); Aspartate Amino Transferase 52 U/L (14-36); Bilirubin,Total 1.5 mg/dL (0.2-1.3); Blood Urea Nitrogen 9 mg/dL (7-17); Calcium 9.3 mg/dL (8.4-10.2); Carbon Dioxide 23 mmol/L (22-30); Chloride 103 mmol/L (98-107); Estimated Glomerular Filt Rate > 60; Glucose 205 mg/dL (65-110); Sodium 133 mmol/L (137-145)
[2021-10-19] MEDS: predniSONE 20 MG TABLET 40 MG PO (15:49)
== END 2021-10-19 16:15 | disposition home or self-care (01) ==
PROVIDERS: Emergency Provider Emergency Medicine; PCP Family Medicine
DX: R05.9 Cough, unspecified (principal); U09.9 Post COVID-19 condition, unspecified; R06.9 Unspecified abnormalities of breathing; J44.9 Chronic obstructive pulmonary disease, unspecified; E11.69 Type 2 diabetes mellitus with other specified complication; E78.5 Hyperlipidemia, unspecified; F31.9 Bipolar disorder, unspecified; Z79.4 Long term (current) use of insulin; Z79.84 Long term (current) use of oral hypoglycemic drugs
CPT/HCPCS: 36415; 70490; 71250; 80053; 85025; 93005; 94640; 96374; 96375; 99284; J2060; J2930; J7512

== ENCOUNTER 2021-10-21 11:29 | Emergency (ER) | payer MEDICARE, SELFPAY ==
--- NOTE | ~2021-10-21 | XR_ITS ---
EXAMINATION: XR chest 1V portable INDICATION: Cough and shortness of breath TECHNIQUE: Portable AP chest at 1152 hours COMPARISON: 09/04/2021 FINDINGS: The lungs are free of acute opacities. No pleural effusion or pneumothorax. The cardiomedia stinal silhouette is normal. The visualized bones and soft tissues are unremarkable. IMPRESSION: 1. No acute cardiopulmonary abnormality. Reviewed, dictated and finalized at location A.
[2021-10-21 11:30] VITALS: BP 142/78; PULSE 101; RESP 22; TEMP 36.1; O2SAT 99
--- NOTE | 2021-10-21 12:42 | ED.GENADULT ---
HPI - General Adult General Chief complaint: Shortness of Breath/Dyspnea Stated complaint: SOB Time Seen by Provider: 10/21/21 11:54 History of Present Illness HPI narrative: 46-year-old female presenting the emergency department for evaluation of increased shortness of breath. Patient did have COVID back in February and has since been following up with her range ecologist for symptoms of long COVID. Patient had a pulmonary function test last week and states since then she has had increased shortness of breath. Patient was evaluated in the emergency department a few days ago and had negative work-up patient states that she did feel improved at that time. Patient states that she did go to work yesterday and her symptoms began to worsen again. Patient was inquiring if I recommend that she should stay home from work. Patient does have some expiratory stridor but patient is also speaking on the inspiration. Patient is in no distress. Related Data Home Medications Medication Instructions Recorded Confirmed insulin aspart U-100 100 unit/mL unit subcut 10/17/19 09/20/21 (3 mL) subcutaneous pen (Novolog Flexpen U-100 Insulin aspart) metformin 500 mg tablet 500 mg PO BID 10/17/19 09/20/21 omeprazole 20 mg capsule,delayed 20 mg PO DAILY 10/17/19 09/20/21 release sumatriptan succinate 25 mg tablet 25 mg PO DAILY 10/17/19 09/20/21 Allergies Allergy/AdvReac Type Severity Reaction Status Date / Time lynn Allergy Severe Anaphylactic Verified 10/19/21 13:23 Shock lynn flavor Allergy Severe Anaphylactic Verified 10/19/21 13:23 Shock iodine Allergy Mild Rash Verified 10/19/21 13:23 Review of Systems Review of Systems: CONSTITUTIONAL: Denies fever, chills, or sweats. EYES: Denies visual changes, redness, or discharge. ENT: Denies rhinorrhea, congestion, sore throat, or otalgia. CARDIOVASCULAR: Denies chest pain, palpitations, or edema. RESPIRATORY: Patient reports some shortness of breath and increased cough GASTROINTESTINAL: Denies abdominal pain, nausea, vomiting, or diarrhea. GENITOURINARY: Denies dysuria or hematuria. SKIN: Denies rash or itching. MUSCULOSKELETAL: Denies back pain, joint pain, or myalgia. NEUROLOGIC: Denies headache, numbness, or weakness. [facility] Past Medical History Medical History COPD (chronic obstructive pulmonary disease) Diabetes History of bipolar disorder Hyperlipidemia associated with type 2 diabetes mellitus Surgical History Surgical History History of cholecystectomy Social History Social History Smoking status: Former smoker Exam Narrative: APPEARANCE: Well appearing, no pain, no distress, well-nourished. HEAD: normocephalic, atraumatic. EYES: PERRLA/EOMI, conjunctivae clear. NOSE: Normal no drainage EARS:TMS clear with good light reflex. THROAT: Pharynx clear, no exudate. RESPIRATORY: Airway patent, respirations nonlabored. No wheezing on exam. Patient does have audible inspiration. Also speaking on inspiration rather than expiration CARDIOVASCULAR: Regular rate and rhythm without murmurs rubs or gallops. ABDOMINAL: Soft, nontender, nondistended, normal bowel sounds MUSCULOSKELETAL: Moves all extremities. Strength/ROM intact, No edema, No calf tenderness. NEURO: Alert. Cranial nerves II through XII intact. SKIN: Warm, dry. Normal Color Course Course Emergency Course: Patient did feel improved with treatment. Patient is still on her steroid burst. Patient was advised to have close follow-up with her range ecologist Dr. Armstrong. Patient was comfortable with the plan for discharge and close follow-up. Vital Signs Vital signs: Vital Signs Temperature 96.9 F L 10/21/21 11:30 Pulse Rate 101 H 10/21/21 11:30 Respiratory Rate 22 H 10/21/21 11:30 Blood Pressure 142/78 H 10/21/21 11:30 Pulse Oximet
[2021-10-21] MEDS: IPRATROPIUM BR 0.02% INH SOLN 0.5 MG/2.5 ML VIAL 1 MG INHALATION (12:50)
[2021-10-21] MEDS: ALBUTEROL SULFATE NEB 2.5 MG/3 ML INH 15 MG INHALATION (12:50)
[2021-10-21 12:51] VITALS: PULSE 74; RESP 36
[2021-10-21 14:02] VITALS: PULSE 106; RESP 24
[2021-10-21 14:14] VITALS: BP 144/72; PULSE 102; RESP 18; O2SAT 97
== END 2021-10-21 15:13 | disposition home or self-care (01) ==
PROVIDERS: Emergency Provider Emergency Medicine; PCP Family Medicine
DX: R05.9 Cough, unspecified (principal); U09.9 Post COVID-19 condition, unspecified; J44.9 Chronic obstructive pulmonary disease, unspecified; E11.69 Type 2 diabetes mellitus with other specified complication; E78.5 Hyperlipidemia, unspecified; Z79.84 Long term (current) use of oral hypoglycemic drugs; Z79.4 Long term (current) use of insulin; Z87.891 Personal history of nicotine dependence
CPT/HCPCS: 71045; 94640; 99283

== ENCOUNTER 2022-07-12 09:00 | Outpatient (RCR) | payer MEDICARE, SELFPAY ==
--- NOTE | 2022-07-01 16:23 | PTOPEVAL1 ---
Assessment and note entered by Ethel Connell, PT Evaluation Information Assessment Status Evaluation Diagnosis BPPV/ vestibular therapy Onset Mar 2022 Subjective Information increase dizziness with ear infections in Mar 2022 saw ENT at [facility]--they did hearing test- was normal; imaging of head; swab of ear-- was told ear was swollen and could not swab them; did not like them there; saw her general dr- Dr. Carnes and her ear infections were cleared, then went to Dr Esparza, ENT. symptoms: dizzy, room is shifting, off balance with walking and stumble- like floor is moving; room is spinning; ears ring all time and pop; increase: bend forward to grape picker something, driving and turn head, walking and turning head, sweeping floor; sit to stand; rolling in bed, Dizziness Handicap Index score 76/100; have had 3 falls in the past month; vision checked in April- sent for further testing for glaucoma not have results yet Reported Pain Level Pain Score Self Report Additional Pain Score Comments pain range of the past week: 2-5/10; sharp pain in L ear; migraines about once/week; nasal congestion, popping in ears; problems with focusing when someone is talking with her; problems sleeping when lie on her L side- L ear throbs; Assessment PT Clinical Summary Oumou has the diagnosis of BPPV, vestibular therapy. Her self assessment Dizziness handicap index score is 76/100. Her medical history includes multiple risk factors for vestibular issues: tinnitis both ears, migraines, neck pain, ear pain, ear infection, septal deviation, sinus/allergy issues, multiple meds, long COVID. With the testing: positional changes increase her dizziness, but also had onset of increase with sitting still and talking with giving her history; unsteady gait/ balance, reports 3 falls in the past month. Dizziness increased with eye tracking and gaze stabilization.
--- NOTE | 2022-07-19 10:11 | PCPTNOTE ---
pt called and canceled today's appt; saw the Dr yesterday and to have more testing--HOLD PT at this time.
--- NOTE | 2022-08-22 15:18 | PTOPDC ---
Assessment and note entered by Ethel Connell, PT Evaluation Information Assessment PT Clinical Summary Oumou has received the PT evaluation and one treatment session. She then called and canceled 07-19-22, after seeing the dr and he said to HOLD PT. No further word from pt, therefore she will be discharged at this time. The goals were not addressed. Plan of Care PT Services Indicated No
== END 2022-08-23 13:07 | disposition home or self-care (01) ==
LOC: ANHPT 09:00
PROVIDERS: PCP Family Medicine; Visit Provider Otolaryngology
DX: H81.10 Benign paroxysmal vertigo, unspecified ear (principal)
CPT/HCPCS: 97162; 97530

== ENCOUNTER 2022-07-25 15:20 | Outpatient (CLI) | payer MEDICARE, SELFPAY ==
--- NOTE | ~2022-07-25 | CT_ITS ---
EXAMINATION: CT sinus wo con DATE: 07/25/2022 15:47 INDICATION: Chronic sinusitis. TECHNIQUE: Computed tomography (CT) of the paranasal sinuses was performed without intravenous contra st. Coronal reconstructions were obtained. The dose-length product was 329.94 mGy-cm. COMPARISON: None FINDINGS: There is opacification of a single small right ethmoid air cell and there is minimal mucosal thickeni ng at the cephalad left maxillary sinus along a small George cell. Remainder of the paranasal sinuses are unremarkable. Bilateral ostiomeatal units are patent. The ortega of the paranasal sinuses appear intact with no wall thickening or sclerosis to suggest sequela of chronic sinusitis. Nasal septum is midline. Bilateral orbits are normal. Mastoid air cells and middle ear cavities are clear. The brain appears normal. Maxillofacial soft tissues are unremarkable. IMPRESSION: 1. Minimal sinus disease as detailed above. Reviewed, dictated and finalized at location A.
== END 2022-07-25 15:21 | disposition home or self-care (01) ==
PROVIDERS: PCP Family Medicine; Visit Provider Otolaryngology
DX: J32.9 Chronic sinusitis, unspecified (principal); R44.8 Other symptoms and signs involving general sensations and perceptions; J34.89 Other specified disorders of nose and nasal sinuses; R09.81 Nasal congestion; R09.82 Postnasal drip; J34.3 Hypertrophy of nasal turbinates; J34.2 Deviated nasal septum
CPT/HCPCS: 70486

== ENCOUNTER 2022-08-15 08:01 | Emergency (ER) | payer MEDICARE, SELFPAY ==
--- NOTE | ~2022-08-15 | XR_ITS ---
AP, oblique, and lateral views of the left first toe CLINICAL HISTORY: Injury FINDINGS: Possible small avulsion fracture from the dorsal aspect of the base of the distal phalanx o f the great toe. No other fracture or dislocation seen. Joint spaces are preserved. Soft tissues are unremarkable. IMPRESSION: Possible small oblique avulsion fracture of the dorsal aspect of the base of the distal phalanx of th e great toe. Correlate for point tenderness. Reviewed, dictated and finalized at location M. IMPRESSION: Possible small oblique avulsion fracture of the dorsal aspect of the base of th e distal phalanx of the great toe. Correlate for point tenderness.
[2022-08-15 08:04] VITALS: BP 131/72; PULSE 96; RESP 18; TEMP 36.6; O2SAT 100
--- NOTE | 2022-08-15 08:50 | PC.NURSE ---
Radiology at bedside to obtain xray of toe.
[2022-08-15] MEDS: IBUPROFEN 600 MG TABLET PO (09:12)
--- NOTE | 2022-08-15 09:40 | ED.LOWEXIN ---
HPI - Extremity Injury (Lower) General Chief Complaint: Extremity Injury, Lower Stated Complaint: broken toe Time Seen by Provider: 08/15/22 08:21 History of Present Illness HPI Narrative: Patient is a 46-year-old female who presents ER with concerns for broken toe. She was bringing her dog back from using the restroom when she struck her french on the crate and then bent her left great toe down under her foot. She had sudden onset pain. It is increased throughout the evening. She has pain with attempts to ambulate. No numbness or tingling. She does report new swelling. No alleviating factors but then not standing on it. Related Data Home Medications Medication Instructions Recorded Confirmed metformin 500 mg tablet 500 mg PO BID 10/17/19 07/18/22 omeprazole 20 mg capsule,delayed 20 mg PO DAILY 10/17/19 07/18/22 release sumatriptan succinate 25 mg tablet 25 mg PO DAILY 10/17/19 07/18/22 semaglutide 0.25 mg or 0.5 mg (2 0.25 mg subcut WEEKLY 07/18/22 07/18/22 mg/3 mL) subcutaneous pen injector (Ozempic) Allergies Allergy/AdvReac Type Severity Reaction Status Date / Time lynn Allergy Severe Anaphylactic Verified 07/18/22 15:39 Shock lynn flavor Allergy Severe Anaphylactic Verified 07/18/22 15:39 Shock iodine Allergy Mild Rash Verified 07/18/22 15:39 Review of Systems Musculoskeletal: Musculoskeletal: Reports arthralgias, Reports joint swelling and Denies muscle cramps Integumentary/Breasts: Skin/Breast: Denies rash and Denies skin ulcer Neurologic: Denies focal weakness and Denies numbness PMFSH Past Medical History Medical History COPD (chronic obstructive pulmonary disease) Diabetes History of bipolar disorder Hyperlipidemia associated with type 2 diabetes mellitus Surgical History Surgical History History of cholecystectomy Social History Social History Smoking status: Former smoker Alcohol intake: current Lack of Transportation: No Lack of Food: Never True Current Housing: I Have Housing Concerned About Future Housing: No Difficulty Paying Gas/Electric Bills: No Difficulty Paying for Meds: YES Currently Unemployed: No Education: High School Diploma/GED Difficulty w/ Childcare or Family Care: No Exam Narrative: GENERAL: Well-appearing, well-nourished, and in no acute distress. HEAD: Normocephalic, atraumatic. ENT: Mucous membranes moist. HEART: Regular rate and rhythm. Normal peripheral pulses. EXTREMITIES: Left great toe with bruising and swelling at the DIP with point tenderness. No other abnormalities of the foot or toes on the left side. Normal perfusion and sensation. SKIN: Warm, dry, no rash. NEURO: Alert and oriented x3. PSYCH: Normal mood and affect. Course Course Emergency Course: Patient resting comfortably. She has been put in a postop shoe. Educated on the diagnosis and treatment plan for her fractured toe. She is verbalized understanding. Vital Signs Vital signs: Vital Signs Temperature 97.9 F 08/15/22 08:04 Pulse Rate 96 08/15/22 08:04 Respiratory Rate 18 08/15/22 08:04 Blood Pressure 131/72 08/15/22 08:04 Pulse Oximetry 100 08/15/22 08:04 Oxygen Delivery Room Air 08/15/22 08:04 Temperature 97.9 F 08/15/22 08:04 Pulse Rate 96 08/15/22 08:04 Respiratory Rate 18 08/15/22 08:04 Blood Pressure 131/72 08/15/22 08:04 Pulse Oximetry 100 08/15/22 08:04 Oxygen Delivery Room Air 08/15/22 08:04 MDM - Extremity Injury (Lower) Imaging Data Radiologist's impression: ITS Impressions Toe X-Ray 08/15/22 09:09 IMPRESSION: Possible small oblique avulsion fracture of the dorsal aspect of the base of the distal phalanx of the great toe. Correlate for point tenderness. Discharge Plan Discharge
[2022-08-15 10:05] VITALS: BP 121/81; PULSE 83; RESP 16; O2SAT 97
== END 2022-08-15 10:24 | disposition home or self-care (01) ==
PROVIDERS: Emergency Provider Emergency Medicine; PCP Family Medicine
DX: S92.422A Displaced fracture of distal phalanx of left great toe, initial encounter for closed fracture (principal); J44.9 Chronic obstructive pulmonary disease, unspecified; E11.69 Type 2 diabetes mellitus with other specified complication; E78.49 Other hyperlipidemia; Z87.891 Personal history of nicotine dependence; Z90.49 Acquired absence of other specified parts of digestive tract; Z79.85 Long-term (current) use of injectable non-insulin antidiabetic drugs; Z79.84 Long term (current) use of oral hypoglycemic drugs; W22.8XXA Striking against or struck by other objects, initial encounter
CPT/HCPCS: 73660; 99284; A9270

== ENCOUNTER 2022-09-26 13:01 | Outpatient (CLI) | payer MEDICARE, SELFPAY ==
[2022-09-26 14:08] LABS: Anion Gap 4 mmol/L (8-16); Blood Urea Nitrogen 8 mg/dL (7-17); Calcium 9.3 mg/dL (8.4-10.2); Carbon Dioxide 27 mmol/L (22-30); Chloride 106 mmol/L (98-107); Estimated Glomerular Filt Rate > 60; Glucose 102 mg/dL (65-110); Sodium 137 mmol/L (137-145)
== END 2022-09-26 13:02 | disposition home or self-care (01) ==
LOC: ANHSURGERY 13:25
PROVIDERS: Anesthesiology; PCP Family Medicine; Visit Provider Otolaryngology
DX: Z01.818 Encounter for other preprocedural examination (principal); E11.9 Type 2 diabetes mellitus without complications
CPT/HCPCS: 36415; 80048

== ENCOUNTER 2022-10-01 00:06 | Day surgery (SDC) | payer MEDICARE, SELFPAY ==
[2022-09-25 14:16] VITALS: BMI 32.2
--- NOTE | 2022-09-25 14:28 | PC.NURSE ---
Report to the Outpatient Waiting Room, entrance under the green pavilion located off [facility], at time __1200 on date __10/01/22_. Planned Procedure Time: _1400_. Time changes happen often and if your time is changed the preop area will call you the afternoon before. - You and your visitor will be asked to self-screen and do not enter if you have any COVID symptoms. - A mask is optional within the hospital at this time. Patients may have clear liquids (water, carbonated beverages, clear teas, apple juice) until 3 hours prior to surgery with a maximum of 20 ounces. - No food from midnight until time of surgery - Infants may have breast milk until 4 hours before surgery, formula 6 hours prior to surgery. - Children will be allowed to drink immediately following surgery. If applicable, please bring a bottle or sippy cup to assist with drinking. Juice, water, soda, and popsicles are readily available. For infants on formula, please bring formula the day of surgery. Pacifiers are allowed. Take the following medications with a SIP of water the morning of surgery: ___INHALERS, UPDRAFT IF NEEDED DO NOT STOP ANY OF YOUR OTHER PRESCRIPTION MEDICATIONS PRIOR TO SURGERY ?EXCEPT THE FOLLOWING Medications to discontinue per physician NONE Date to take last dose Please no make-up, nail malagasy, hairspray, perfume, deodorant, or body powder the day of surgery. No jewelry (including any body piercings) or valuables the day of surgery, leave them at home. Please take a shower or bath the night before, or the morning of, surgery with an antibacterial soap. Wear comfortable, loose fitting clothing. Children are encouraged to wear pajamas. - Jewelry must be removed prior to entering the operating room. Rings and piercings that are not removed may be cut off. - The hospital will not accept responsibility for valuables. - Please leave all valuables, including medications, at home the day of surgery. If you are going home after surgery, a licensed transport driver must drive you home. - NO public transportation without another adult if you receive anesthesia. - We recommend that an adult stay with you for 24 hours following discharge. - We also recommend that you do not drive, make important decision, drink alcoholic beverages, or take any drugs that were not prescribed by your health care provider for at least 24 hours after your discharge time. For Pediatric surgeries, we recommend two adults accompany the child home. Follow any additional instructions given to you from your surgeon. If you or anyone in your household have experienced Covid symptoms in the past week, please notify your surgeon or the nurse liaison at the phone number below for possible testing. Telephone instructions given to PATIENT__and asked if any additional questions and then verbalized understanding. Patient advised to call surgeon office or pre surgery nurse liaison [phone] if any additional questions.
--- NOTE | 2022-09-30 13:07 | PM.IMHP ---
H&P: HPI History of Present Illness Date/Time: 09/30/22 13:07 Chief Complaint: septal deviation turbinate hypertrophy chronic sinusitis the right anterior ethmoid Narrative: planned surgical procedure Review of Systems Review of Systems: All systems reviewed & are unremarkable except as noted in HPI and below [facility] Past Medical History Medical History COPD (chronic obstructive pulmonary disease) Diabetes History of bipolar disorder Hyperlipidemia associated with type 2 diabetes mellitus Surgical History Surgical History History of cholecystectomy Social History Social History Smoking packs per day: 2.5 Smoking cigarettes per day: 50.0 Years smoked: 17 Smoking pack-years: 42.50 Smoking status: Former smoker Additional smoking assessment comments: HAS NOT SMOKED FOR 4 MONTHS Alcohol intake: current Alcohol use details: 2 TIMES PER YEAR Lack of Transportation: No Lack of Food: Never True Current Housing: I Have Housing Concerned About Future Housing: No Difficulty Paying Gas/Electric Bills: No Difficulty Paying for Meds: YES Currently Unemployed: No Education: High School Diploma/GED Difficulty w/ Childcare or Family Care: No Living arrangements: with family Meds Home Medications and Allergies Home Medications Medication Instructions Recorded Confirmed Type metformin 500 mg tablet 500 mg PO BID 10/17/19 09/25/22 History omeprazole 20 mg capsule,delayed 20 mg PO DAILY 10/17/19 09/25/22 History release sumatriptan succinate 25 mg tablet 25 mg PO DAILY PRN MIGRANE 10/17/19 09/25/22 History albuterol sulfate 2.5 mg/3 mL 2.5 mg (3 mL) inhalation Q4-6H PRN 06/05/21 09/25/22 Rx (0.083 %) solution for nebulization shortness of breath or wheezing #90 mL albuterol sulfate 90 mcg/actuation 2 puff inhalation QID PRN 10/25/21 09/25/22 Rx aerosol inhaler shortness of breath or wheezing #8.5 grams ipratropium 0.5 mg-albuterol 3 mg 3 ml inhalation Q4H #180 mL 10/25/21 09/25/22 Rx (2.5 mg base)/3 mL nebulization soln fluticasone fur. 200 mcg-umeclid 1 inh inhalation DAILY #60 ea 02/28/22 09/25/22 Rx 62.5 mcg-vilant 25 mcg inhalat.powder semaglutide 0.25 mg or 0.5 mg (2 0.25 mg subcut WEEKLY 07/18/22 09/25/22 History mg/3 mL) subcutaneous pen injector (Ozempic) Allergies Allergy/AdvReac Type Severity Reaction Status Date / Time lynn Allergy Severe Anaphylactic Verified 09/25/22 09:06 Shock lynn flavor Allergy Severe Anaphylactic Verified 09/25/22 09:06 Shock iodine Allergy Mild Rash Verified 09/25/22 09:06 Exam Narrative: septal deviation turbinate hypertrophy chronic appearing sinuses Assessment and Plan Assessment and plan (1) Chronic sinusitis: Code(s): J32.9 - Chronic sinusitis, unspecified Status: Acute Assessment and Plan: plan OR right-sided image guided endoscopic right-sided anterior ethmoidectomy. Discuss with patient she is having recurrent sinus infections we could consider anterior based ESS as well. Septoplasty turbinate reduction with outfracture bilaterally. Risks were discussed including septal perforation regrowth the turbinates postoperative bleeding postoperative infection need for multiple debridements the resolve symptoms she needs or sinus opening there does not diseased on the CT. CSF leak brain brain damage change in vision total blindness. Need further procedures failure to resolve symptoms especially if due to headache gayatri (2) Nasal obstruction: Code(s): J34.89 - Other specified disorders of nose and nasal sinuses Status: Acute (3) Nasal congestion: Code(s): R09.81 - Nasal congestion Status: Acute (4) Nasal septal deviation: Code(s): J34.2 - Deviated n
[2022-10-01] VITALS (10 sets, daily range): BP systolic 111–159; BP diastolic 58–93; PULSE 78–99; RESP 10–18; TEMP 36.2–36.3; O2SAT 92–100
--- NOTE | 2022-10-01 07:18 | WPDHPUPDATE1 ---
History and Physical Update Update Date/Time: 10/01/22 07:18 History and Physical has been reviewed, including an updated exam of the patient. There are NO changes in the patient's condition. Risks, benefits, and alternatives have been discussed and questions answered. Patient agrees to proceed with procedure.
[2022-10-01] MEDS: ACETAMINOPHEN 500 MG TABLET 1000 MG PO (08:58)
[2022-10-01] MEDS: LACTATED RINGERS 1,000 ML 30 ML IV CONT ×3 (09:20→14:35)
--- NOTE | 2022-10-01 09:46 | WPDANESEPPF ---
Anes - Initial Pre Proc Eval Procedure: Operation Date: 10/01/22 11:00 Proposed Procedures p Image Guided Right Anterior Ethmoidectomy, Bilateral Inferior Turbinectomy with Outfracture, - Gustavo Esparza MD s Endoscopic Septoplasty - Gustavo Esparza MD Date/Time: 10/01/22 09:46 Surgeon: Gustavo Esparza MD Pre Op Diagnosis: chronic sinusitis Patient Data Age: 47 Gender: F Height: 1.57 m Weight: 85 kg Last Vital Signs Temp 36.3 C L 10/01/22 09:13 Pulse 89 10/01/22 09:13 Resp 18 10/01/22 09:13 BP 155/87 H 10/01/22 09:13 Pulse Ox 100 10/01/22 09:13 O2 Del Method Room Air 10/01/22 09:13 Allergies Allergy/AdvReac Type Severity Reaction Status Date / Time lynn Allergy Severe Anaphylactic Verified 10/01/22 08:54 Shock lynn flavor Allergy Severe Anaphylactic Verified 10/01/22 08:54 Shock iodine Allergy Mild Rash Verified 10/01/22 08:54 Home Medications Medication Instructions Recorded Confirmed Type metformin 500 mg tablet 500 mg PO BID 10/17/19 09/25/22 History omeprazole 20 mg capsule,delayed 20 mg PO DAILY 10/17/19 09/25/22 History release sumatriptan succinate 25 mg tablet 25 mg PO DAILY PRN MIGRANE 10/17/19 09/25/22 History albuterol sulfate 2.5 mg/3 mL 2.5 mg (3 mL) inhalation Q4-6H PRN 06/05/21 09/25/22 Rx (0.083 %) solution for nebulization shortness of breath or wheezing #90 mL albuterol sulfate 90 mcg/actuation 2 puff inhalation QID PRN 10/25/21 09/25/22 Rx aerosol inhaler shortness of breath or wheezing #8.5 grams ipratropium 0.5 mg-albuterol 3 mg 3 ml inhalation Q4H #180 mL 10/25/21 09/25/22 Rx (2.5 mg base)/3 mL nebulization soln fluticasone fur. 200 mcg-umeclid 1 inh inhalation DAILY #60 ea 02/28/22 09/25/22 Rx 62.5 mcg-vilant 25 mcg inhalat.powder semaglutide 0.25 mg or 0.5 mg (2 0.25 mg subcut WEEKLY 07/18/22 09/25/22 History mg/3 mL) subcutaneous pen injector (Ozempic) Patient hx anesthesia problems: other (had to stay overnight after lap rhona due to her DINESH) Family hx anesthesia problems: none Results Review: All pre-operative results and documents have been reviewed as part of the pre-operative evaluation. [facility] Past Medical History Medical History (Updated 10/01/22 @ 09:47 by Manny Amaya DO) Asthma COPD (chronic obstructive pulmonary disease) Diabetes History of bipolar disorder Hyperlipidemia associated with type 2 diabetes mellitus DINESH (obstructive sleep apnea) Surgical History Surgical History History of cholecystectomy Social History Social History Smoking packs per day: 2.5 Smoking cigarettes per day: 50.0 Years smoked: 17 Smoking pack-years: 42.50 Smoking status: Former smoker Additional smoking assessment comments: HAS NOT SMOKED FOR 4 MONTHS Alcohol intake: current Alcohol use details: 2 TIMES PER YEAR Lack of Transportation: No Lack of Food: Never True Current Housing: I Have Housing Concerned About Future Housing: No Difficulty Paying Gas/Electric Bills: No Difficulty Paying for Meds: YES Currently Unemployed: No Education: High School Diploma/GED Difficulty w/ Childcare or Family Care: No Living arrangements: with family Deannes - [employer] Final PreProcedure Day of Procedure 10/01/22 09:46 Patient weight: obese Heart: regular rate and rhythm Lungs: clear to auscultation Airway: Mallampati scale class III Neurological: alert and oriented Last oral intake: >/= 8 hours ASA classification: III Emergent: no Anesthetic plan: proceed Anesthesia type and monitoring: general ETT and standard monitoring Results Review: All pre-operative results and documents have been reviewed as part of the pre-operative evaluation. Informed Consent: The patient's anesthetic plan and its attendant risks and benefits were discussed with the patient/
--- NOTE | 2022-10-01 11:04 | SUR.PREOP ---
Discussed delay with patient. Voiced understanding.
[2022-10-01 11:27] LABS: Glucose Point of Care 93 mg/dl (65-105)
[2022-10-01] MEDS: ceFAZolin 2 GM/D5W 50 ML 2 GM/50 ML BAG IVPB (12:12)
[2022-10-01] MEDS: OXYMETAZOLINE HCL 0.05% NAS 15 ML BTL (*BKC) 1 SPRAY NASAL (12:13)
[2022-10-01] MEDS: LIDO 1%/EPINEPHRINE 1:100,000 20 ML VIAL 10 ML INFILTRATE (12:14)
[2022-10-01] MEDS: MUPIROCIN 2% OINT 22 GM TUBE 1 APPLIC EACH NARE ×2 (13:09→13:14)
[2022-10-01 13:42] LABS: Glucose Point of Care 130 mg/dl (65-105)
[2022-10-01] MEDS: fentaNYL CITRATE INJ (*CRX) 100 MCG/2 ML VIAL 25 MCG IV PUSH ×7 (13:44→15:12)
[2022-10-01] MEDS: ONDANSETRON INJ 4 MG/2 ML VIAL IV PUSH (13:52)
--- NOTE | 2022-10-01 14:07 | W.PM.PROC2 ---
Procedure Note - Detailed Date of Procedure 10/01/22 Pre-op Diagnosis chronic sinusitis Nasal obstruction nasal congestion septal deviation turbinate hypertrophy Post-op Diagnosis Same Procedure Performed endoscopic assisted septoplasty, turbinate reduction with outfracture, right-sided anterior ethmoidectomy image guided endoscopic Surgeon Gustavo Esparza MD Anesthesia General Findings edematous tissue in the right anterior ethmoids severely deviated rightward nasal septum corrected small perforation right-sided non on the left large turbinates well reduced Description of Procedure patient identified consent verified preop. Patient brought operating room. Time-out performed. General anesthesia induced endotracheal tube secured. Patient prepped draped position procedure confirmed 2nd time-out performed. Image guidance initiated confirmed. Afrin-soaked pledgets placed for 5 minutes then removed. 0 degree endoscope utilized. 14 cc 1% lidocaine 1 100,000 parts epinephrine injected the bilateral nasal septum. Left-sided Marlo incision left nasal septal flap elevated 7 [place] suction perforation osteotome utilized to cross over the septum. Right-sided nasal septal flap elevated 7 [place]ian suction. Deviated septum removed osteotome Meet Nguyen forceps and Janice forceps. Marlo incision closed 3 interrupted 5 0 fast gut sutures. Turbinates reduced submucosal plane with microdebrider turbinate blade and outfractured with [place] elevator. The insertion point was cauterized as well as mulberry tips. Right-sided anterior ethmoidectomy performed under image guidance with [place] and microdebrider. There was polypoid edema in 1-2 cells Nova pack was placed on the right side. Patient tolerated the procedure well no complications blood loss about 25 cc. I performed all dictated portions procedure 0 Higgins splints were also placed insertion tear sutured anteriorly using 3-0 mattressed nylon suture. Was ensured to be lateral to the right middle turbinate. Estimated Blood Loss -25.0 Drains No Packing Yes ( Nova pack) Pathology None sent Complications No immediate complications Condition Stable Disposition PACU [facility] Billing Surgery - Charge Forward: Surgery Billing
[2022-10-01] MEDS: diphenhydrAMINE HCl INJ 50 MG/ML VIAL 25 MG IV PUSH (14:25)
[2022-10-01] MEDS: SCOPOLAMINE 1.5 MG PATCH TRANSDERM (14:25)
[2022-10-01] MEDS: oxyCODONE HCL (*CRX) 5 MG TAB IR PO (15:50)
--- NOTE | 2022-10-01 22:40 | P.PNAN_ITS ---
Anes - Eval Final PreProcedure Day of Procedure 10/01/22 22:40 Patient weight: obese Heart: regular rate and rhythm Lungs: clear to auscultation Airway: Mallampati scale class II Neurological: alert and oriented Last oral intake: >/= 8 hours ASA classification: III Emergent: yes Anesthetic plan: proceed Anesthesia type and monitoring: general ETT and standard monitoring Results Review: All pre-operative results and documents have been reviewed as part of the pre- operative evaluation. Informed Consent: The patient's anesthetic plan and its attendant risks and benefits were discussed with the patient/family/POA. Questions were solicited and answers provided to the satisfaction of the patient/family/POA.
== END 2022-10-01 16:30 | disposition home or self-care (01) ==
PROVIDERS: PCP Family Medicine; Visit Provider Otolaryngology
PROC: (CPT 31254; principal; 2022-10-01 11:00)
PROC: (CPT 30520; 2022-10-01 11:00)
DX: J32.9 Chronic sinusitis, unspecified (principal); J34.2 Deviated nasal septum; J34.3 Hypertrophy of nasal turbinates; J34.89 Other specified disorders of nose and nasal sinuses; R09.81 Nasal congestion; J44.9 Chronic obstructive pulmonary disease, unspecified; E11.9 Type 2 diabetes mellitus without complications; E78.5 Hyperlipidemia, unspecified; G47.33 Obstructive sleep apnea (adult) (pediatric); Z79.51 Long term (current) use of inhaled steroids; Z79.899 Other long term (current) drug therapy; Z79.84 Long term (current) use of oral hypoglycemic drugs; Z87.891 Personal history of nicotine dependence; E66.9 Obesity, unspecified; Z68.34 Body mass index [BMI] 34.0-34.9, adult
CPT/HCPCS: 31254; 61782; 30520; 30140; 82948; A9270; J0330; J0690; J1100; J1200; J2250; J2371; J2405; J2704; J3010; J7120

== ENCOUNTER 2022-10-01 21:01 | Day surgery (SDC) | payer MEDICARE, SELFPAY ==
[2022-10-01 21:04] VITALS: BP 156/84; PULSE 92; RESP 16; TEMP 36.7; O2SAT 99
--- NOTE | 2022-10-01 21:30 | ED.GENADULT ---
HPI - General Adult General Chief complaint: Unspecified <NATALY Jean Last Filed: 10/02/22 02:41> Stated complaint: surgery today, coughing up blood <Iona Foy PA-C - Last Filed: 10/02/22 02:41> Time Seen by Provider: 10/01/22 21:10 <Iona Foy PA-C - Last Filed: 10/02/22 02:41> History of Present Illness HPI narrative: 47-year-old female with a history of migraines, BPPV, chronic sinusitis, DINESH, asthma, diabetes reports for evaluation for epistaxis x 4 hours. Patient had a endoscopic assisted septoplasty and turbinate reduction today performed by ENT Dr. Esparza. Patient states she had mild bleeding after surgery, however when she got home the bleeding increased. She has been spitting up blood and states the blood in the back of her throat. Reports she contacted Dr. Esparza who advised her to come to the ED and states he would evaluate her at that time. She is reporting a frontal headache and through her sinuses with associated photophobia and nausea. She has a history of migraines and states she feels like this headache is turning into a migraine. Denies chest pain or shortness of breath, fever, vomiting. <NATALY Jean Last Filed: 10/02/22 02:41> Related Data Home medications: Home Medications Medication Instructions Recorded Confirmed metformin 500 mg tablet 500 mg PO BID 10/17/19 09/25/22 omeprazole 20 mg capsule,delayed 20 mg PO DAILY 10/17/19 09/25/22 release sumatriptan succinate 25 mg tablet 25 mg PO DAILY PRN MIGRANE 10/17/19 09/25/22 semaglutide 0.25 mg or 0.5 mg (2 0.25 mg subcut WEEKLY 07/18/22 09/25/22 mg/3 mL) subcutaneous pen injector (ServiceT[employer]) <Iona Foy PA-C - Last Filed: 10/02/22 02:41> Allergies/adverse reactions: Allergies Allergy/AdvReac Type Severity Reaction Status Date / Time lynn Allergy Severe Anaphylactic Verified 10/01/22 21:08 Shock lynn flavor Allergy Severe Anaphylactic Verified 10/01/22 21:08 Shock iodine Allergy Mild Rash Verified 10/01/22 21:08 <Iona Foy PA-C - Last Filed: 10/02/22 02:41> Review of Systems Review of Systems: CONSTITUTIONAL: Denies fever, chills EYES: Denies visual changes, redness, or discharge. ENT: See HPI CARDIOVASCULAR: Denies chest pain, palpitations, or edema. RESPIRATORY: Denies cough or dyspnea. GASTROINTESTINAL: Denies abdominal pain, nausea, vomiting, or diarrhea. GENITOURINARY: Denies dysuria or hematuria. SKIN: Denies rash or itching. MUSCULOSKELETAL: Denies back pain, joint pain, or myalgia. NEUROLOGIC: Denies headache, numbness, dizziness, or weakness. PSYCHIATRIC: Denies anxiety or depression. <Iona Foy PA-C - Last Filed: 10/02/22 02:41> [facility] Past Medical History Medical History: Medical History Asthma COPD (chronic obstructive pulmonary disease) Diabetes History of bipolar disorder Hyperlipidemia associated with type 2 diabetes mellitus DINESH (obstructive sleep apnea) <Iona Foy PA-C - Last Filed: 10/02/22 02:41> Surgical History Surgical History: Surgical History History of cholecystectomy <Iona Foy PA-C - Last Filed: 10/02/22 02:41> Social History Social History: Social History Smoking packs per day: 2.5 Smoking cigarettes per day: 50.0 Years smoked: 17 Smoking pack-years: 42.50 Smoking status: Former smoker Additional smoking assessment comments: HAS NOT SMOKED FOR 4 MONTHS Alcohol intake: current Alcohol use details: 2 TIMES PER YEAR Lack of Transportation: No Lack of Food: Never True Current Housing: I Have Housing Concerned About Future Housing: No Difficulty Paying Gas/Electric Bills: No Difficulty Paying for Meds: YES Currently Unemployed: No Education: High School Dipl
--- NOTE | 2022-10-01 21:36 | WPDCN ---
Assessment and Plan Assessment and plan (1) Postoperative hemorrhage: Status: Acute Assessment and Plan: plan OR nasal endoscopy control of epistaxis/postoperative hemorrhage. Risks were discussed in failure to resolve symptoms continued bleeding and bleeding vessel not identified. Patient voiced understanding of these risks and agreed. HPI Data of Consult Date/Time: 10/01/22 21:36 Primary Care Provider: Wilmer Carnes MD Consult Narrative Narrative: Oumou Middleton is a 47 year old female Does right-sided anterior ethmoidectomy septoplasty to reduction. Minimal bleeding and drop. Bleeding postoperatively which resolved in PACU. Patient reports he began bleeding again. ENT consult to manage bleeding Review of Systems Review of Systems: All systems reviewed & are unremarkable except as noted in HPI and below [facility] Past Medical History Medical History Asthma COPD (chronic obstructive pulmonary disease) Diabetes History of bipolar disorder Hyperlipidemia associated with type 2 diabetes mellitus DINESH (obstructive sleep apnea) Surgical History Surgical History History of cholecystectomy Social History Social History Smoking packs per day: 2.5 Smoking cigarettes per day: 50.0 Years smoked: 17 Smoking pack-years: 42.50 Smoking status: Former smoker Additional smoking assessment comments: HAS NOT SMOKED FOR 4 MONTHS Alcohol intake: current Alcohol use details: 2 TIMES PER YEAR Lack of Transportation: No Lack of Food: Never True Current Housing: I Have Housing Concerned About Future Housing: No Difficulty Paying Gas/Electric Bills: No Difficulty Paying for Meds: YES Currently Unemployed: No Education: High School Diploma/GED Difficulty w/ Childcare or Family Care: No Living arrangements: with family Meds Home Medications and Allergies Home Medications Medication Instructions Recorded Confirmed Type metformin 500 mg tablet 500 mg PO BID 10/17/19 09/25/22 History omeprazole 20 mg capsule,delayed 20 mg PO DAILY 10/17/19 09/25/22 History release sumatriptan succinate 25 mg tablet 25 mg PO DAILY PRN MIGRANE 10/17/19 09/25/22 History albuterol sulfate 2.5 mg/3 mL 2.5 mg (3 mL) inhalation Q4-6H PRN 04/12/22 08/02/23 Rx (0.083 %) solution for nebulization shortness of breath or wheezing #90 mL albuterol sulfate 90 mcg/actuation 2 puff inhalation QID PRN 10/25/21 09/25/22 Rx aerosol inhaler shortness of breath or wheezing #8.5 grams ipratropium 0.5 mg-albuterol 3 mg 3 ml inhalation Q4H #180 mL 10/25/21 09/25/22 Rx (2.5 mg base)/3 mL nebulization soln fluticasone fur. 200 mcg-umeclid 1 inh inhalation DAILY #60 ea 02/28/22 09/25/22 Rx 62.5 mcg-vilant 25 mcg inhalat.powder semaglutide 0.25 mg or 0.5 mg (2 0.25 mg subcut WEEKLY 07/18/22 09/25/22 History mg/3 mL) subcutaneous pen injector ([employer] [place]) doxycycline hyclate 100 mg capsule 100 mg PO DAILY #10 caps 10/01/22 Rx oxycodone 5 mg tablet 5 mg PO Q12H PRN pain #10 tabs 10/01/22 Rx prednisone 5 mg tablet 5 mg PO DAILY #10 tabs 10/01/22 Rx Allergies Allergy/AdvReac Type Severity Reaction Status Date / Time lynn Allergy Severe Anaphylactic Verified 10/01/22 21:08 Shock lynn flavor Allergy Severe Anaphylactic Verified 10/01/22 21:08 Shock iodine Allergy Mild Rash Verified 10/01/22 21:08 Vital Signs Vital Signs - 24 hr 10/01/22 21:04 Temperature 36.7 C Pulse Rate 92 Respiratory Rate 16 Blood Pressure 156/84 H Pulse Oximetry 99 Oxygen Delivery Room Air Exam Narrative: of bright red blood coming out of the front of the nose but more importantly there was bright red blood trickling down the back the nose much more than expected for the type procedure the patient.
[2022-10-01] MEDS: ONDANSETRON INJ 4 MG/2 ML VIAL IV PUSH (21:47)
[2022-10-01] MEDS: MORPHINE SULFATE (*CRX) 4 MG/ML INJ IV PUSH (21:47)
[2022-10-01] MEDS: SODIUM CHLORIDE 0.9% IV 1,000 ML 999 ML IV CONT (21:47)
--- NOTE | 2022-10-01 21:53 | WPDANESEPP ---
Anes - Eval Pre Procedure Procedure: Post op control of bleeding Date/Time: 10/01/22 21:53 Surgeon: Isaias Preop Diagnosis: Post op bleed Pre Op Diagnosis: surgery today, coughing up blood Patient Data Age: 47 Gender: F Height: 1.57 m Weight: 85 kg Last Vital Signs Temp 98.1 F 10/01/22 21:04 Pulse 92 10/01/22 21:04 Resp 16 10/01/22 21:04 BP 156/84 H 10/01/22 21:04 Pulse Ox 99 10/01/22 21:04 O2 Del Method Room Air 10/01/22 21:04 Allergies Allergy/AdvReac Type Severity Reaction Status Date / Time lynn Allergy Severe Anaphylactic Verified 10/01/22 21:08 Shock lynn flavor Allergy Severe Anaphylactic Verified 10/01/22 21:08 Shock iodine Allergy Mild Rash Verified 10/01/22 21:08 Home Medications Medication Instructions Recorded Confirmed Type metformin 500 mg tablet 500 mg PO BID 10/17/19 09/25/22 History omeprazole 20 mg capsule,delayed 20 mg PO DAILY 10/17/19 09/25/22 History release sumatriptan succinate 25 mg tablet 25 mg PO DAILY PRN MIGRANE 10/17/19 09/25/22 History albuterol sulfate 2.5 mg/3 mL 2.5 mg (3 mL) inhalation Q4-6H PRN 06/05/21 09/25/22 Rx (0.083 %) solution for nebulization shortness of breath or wheezing #90 mL albuterol sulfate 90 mcg/actuation 2 puff inhalation QID PRN 10/25/21 09/25/22 Rx aerosol inhaler shortness of breath or wheezing #8.5 grams ipratropium 0.5 mg-albuterol 3 mg 3 ml inhalation Q4H #180 mL 10/25/21 09/25/22 Rx (2.5 mg base)/3 mL nebulization soln fluticasone fur. 200 mcg-umeclid 1 inh inhalation DAILY #60 ea 02/28/22 09/25/22 Rx 62.5 mcg-vilant 25 mcg inhalat.powder semaglutide 0.25 mg or 0.5 mg (2 0.25 mg subcut WEEKLY 07/18/22 09/25/22 History mg/3 mL) subcutaneous pen injector (OzempSciona) doxycycline hyclate 100 mg capsule 100 mg PO DAILY #10 caps 10/01/22 Rx oxycodone 5 mg tablet 5 mg PO Q12H PRN pain #10 tabs 10/01/22 Rx prednisone 5 mg tablet 5 mg PO DAILY #10 tabs 10/01/22 Rx Patient hx anesthesia problems: none Family hx anesthesia problems: none Results Review: All pre-operative results and documents have been reviewed as part of the pre-operative evaluation. [facility] Past Medical History Medical History Asthma COPD (chronic obstructive pulmonary disease) Diabetes History of bipolar disorder Hyperlipidemia associated with type 2 diabetes mellitus DINESH (obstructive sleep apnea) Surgical History Surgical History History of cholecystectomy Social History Social History Smoking packs per day: 2.5 Smoking cigarettes per day: 50.0 Years smoked: 17 Smoking pack-years: 42.50 Smoking status: Former smoker Additional smoking assessment comments: HAS NOT SMOKED FOR 4 MONTHS Alcohol intake: current Alcohol use details: 2 TIMES PER YEAR Lack of Transportation: No Lack of Food: Never True Current Housing: I Have Housing Concerned About Future Housing: No Difficulty Paying Gas/Electric Bills: No Difficulty Paying for Meds: YES Currently Unemployed: No Education: High School Diploma/GED Difficulty w/ Childcare or Family Care: No Living arrangements: with family Exam Day of Procedure 10/01/22 21:53 Patient weight: obese Heart: regular rate and rhythm Lungs: clear to auscultation Airway: Mallampati scale class II
[2022-10-01 22:00] LABS: Basophils Absolute Auto 0.1 K/mm3 (0.0-0.1); Basophils Percent Auto 0.5 % (0.2-1.2); Eosinophils Percent Auto 0.1 % (0-4.4); Hemoglobin 13.4 g/dL (12.0-15.0); Immature Granulocyte Absolute 0.04 K/mm3 (0.00-0.031); Immature Granulocyte Percent A 0.4 % (0-0.5); Lymphocytes Absolute Auto 1.09 K/mm3 (0.9-3.2); Lymphocytes Percent Auto 10.3 % (18.3-44.2); Mean Corpuscular HGB Conc 33.5 g/dl (32-36); Mean Corpuscular Hemoglobin 27.7 pg (26-34); Mean Corpuscular Volume 82.6 fl (80-100); Mean Platelet Volume 9.3 fl (7.4-10.4); Monocytes Absolute Auto 0.3 K/mm3 (0.1-0.6); Monocytes Percent Auto 2.8 % (2.6-8.5); Neutrophils Absolute Auto 9.1 K/mm3 (1.3-6.7); Neutrophils Percent Auto 85.9 % (45.5-73.1); Platelet Count Result 285 k/mm3 (150-375); Red Blood Count 4.84 M/mm3 (4.2-5.4); Red Cell Distribution Width 13.7 % (11.5-14.5); White Blood Count 10.6 K/mm3 (4.5-10.0)
[2022-10-01 22:10] LABS: Anion Gap 9 mmol/L (8-16); Blood Urea Nitrogen 9 mg/dL (7-17); Calcium 9.1 mg/dL (8.4-10.2); Carbon Dioxide 23 mmol/L (22-30); Chloride 102 mmol/L (98-107); Estimated CRCL calculation 97 ml/min; Estimated Glomerular Filt Rate > 60; Glucose 169 mg/dL (65-110); Potassium 4.2 mmol/L (3.4-5.0); Sodium 134 mmol/L (137-145)
[2022-10-01 22:12] LABS: Partial Thromboplastin Time 30.2 SECONDS (22.3-36.8); Prothrombin Time 13.2 Seconds (11.1-14.7)
[2022-10-01] MEDS: OXYMETAZOLINE HCL 0.05% NAS 15 ML BTL (*BKC) 1 SPRAY NASAL (22:46)
[2022-10-01] MEDS: MUPIROCIN 2% OINT 22 GM TUBE 1 APPLIC EACH NARE (22:55)
[2022-10-01 23:59] VITALS: BP 159/92; PULSE 102; RESP 10; TEMP 36.8; O2SAT 97
[2022-10-01] MEDS: LACTATED RINGERS 1,000 ML 30 ML IV CONT (23:59)
[2022-10-02] VITALS (9 sets, daily range): BP systolic 170–196; BP diastolic 79–106; PULSE 75–86; RESP 8–12; O2SAT 92–100
--- NOTE | 2022-10-02 00:08 | P.OP_ITS ---
Procedure Note - Detailed Date of Procedure 10/02/22 Pre-op Diagnosis Postoperative epistaxis Post-op Diagnosis Same Procedure Performed control of epistaxis would be complex in nature it is operative, nasal endoscopy Surgeon Gustavo Esparza MD Anesthesia General Indications see above Findings bleeding from bilateral turbinates kind of global oozing but significant bleeding from cancellous bone located the top of the supra the the superior portion of the septoplasty. Description of Procedure Patient identified consent verified preop. Patient brought to the OR. Time- out performed. General anesthesia induced endotracheal tube secured airway. Patient prepped draped position. Time-out performed. Second time-out performed. Higgins splints removed. Afrin-soaked pledgets placed bilaterally. The postoperative right-sided sinus cavity looks good. Suction Bovie electrocautery setting of 15 his unit utilized to cauterize the turbinates bilaterally. The most the majority of blood was noted be coming from the septum and there is a postoperative septal hematoma. The 3 stitches anteriorly in the septum were cut. All the clot and blood were suctioned out of the septum. Significant bleeding was noted coming from cancellous located the superior portion of the septum superior and posterior. This was cauterized with Bovie suction electrocautery at a setting of 15. FloSeal was placed against this. Septum was closed again with 3 interrupted 5 0 fast gut sutures. Higgins splints were placed. The right was made sure to be lateral to the middle turbinate. This was sutured anteriorly using a 3-0 mattressed suture. Total blood loss about 25 cc. No immediate complications. I performed all dictated portions of the procedure. Estimated Blood Loss 25 Drains No Packing No Pathology None sent Complications No immediate complications Condition Stable Disposition PACU [facility] Billing Surgery - Charge Forward: Surgery Billing
[2022-10-02 00:11] LABS: Glucose Point of Care 165 mg/dl (65-105)
[2022-10-02] MEDS: LACTATED RINGERS 1,000 ML 30 ML IV CONT (00:23)
[2022-10-02] MEDS: ONDANSETRON INJ 4 MG/2 ML VIAL IV PUSH (00:42)
[2022-10-02] MEDS: fentaNYL CITRATE INJ (*CRX) 100 MCG/2 ML VIAL 25 MCG IV PUSH ×2 (00:45→00:59)
[2022-10-02] MEDS: oxyCODONE HCL (*CRX) 5 MG TAB IR PO (01:36)
[2022-10-02] MEDS: METOPROLOL TARTRATE INJ 5 MG/5 ML VIAL IV PUSH (01:47)
== END 2022-10-02 02:25 | disposition home or self-care (01) ==
LOC: ANHED 21:28 → ANHSURGERY 21:37
PROVIDERS: Emergency Provider Physician Assistant; PCP Family Medicine; Visit Provider Otolaryngology
PROC: (CPT 31238; principal; 2022-10-01 22:15)
DX: J95.830 Postprocedural hemorrhage of a respiratory system organ or structure following a respiratory system procedure (principal); R04.0 Epistaxis; Y83.8 Other surgical procedures as the cause of abnormal reaction of the patient, or of later complication, without mention of misadventure at the time of the procedure; R51.9 Headache, unspecified; G47.33 Obstructive sleep apnea (adult) (pediatric); E11.9 Type 2 diabetes mellitus without complications; J44.9 Chronic obstructive pulmonary disease, unspecified; E78.5 Hyperlipidemia, unspecified; Z79.84 Long term (current) use of oral hypoglycemic drugs; Z87.891 Personal history of nicotine dependence
CPT/HCPCS: 31238; 36415; 80048; 82948; 85025; 85610; 85730; 96374; 96375; 99285; A9270; J0330; J0690; J1100; J1200; J2250; J2270; J2371; J2405; J2704; J3010; J7030; J7120

== ENCOUNTER 2023-03-17 07:54 | Emergency (ER) | payer OTHER, SELFPAY ==
--- NOTE | ~2023-03-17 | CT_ITS ---
Noncontrast CT scan of the cervical spine Technique: Multiple contiguous axial [address] images of the cervical spine were obtained and rec onstructed in 2D sagittal and coronal planes on the acquisition scanner. Dose reduction technique was used on this scan by utilizing automated exposure control, adjustment of the mA and/or kV according to patient size. The dose-length product (DLP) was 441.20 mGy-cm. Clinical History: Pain Findings: No fractures or dislocations. Unremarkable visualized bony structures. The intervertebral disc spaces are preserved. No prevertebral soft tissue swelling. Impression: No fracture or subluxation of the cervical spine. Reviewed, dictated and finalized at location . [employer]EL[employer] Impression: No fracture or subluxation of the cervical spine.
--- NOTE | ~2023-03-17 | CT_ITS ---
Non-contrast Head CT History: Status post fall Technique: Axial non-contrast imaging of the brain was performed. Dose reduction technique was used on this scan by utilizing automated exposure control and iterative reconstruction technique. The dose -length product (DLP) was 605.33 mGy-cm. Findings: There is no evidence of intracranial hemorrhage, mass lesion, or acute infarct. Brain par enchyma appears normal. The ventricles and subarachnoid spaces are normal in size. The calvarium ap pears normal. The visualized paranasal sinuses and mastoid air cells are clear. There is soft tissue swelling at the occipital scalp. Impression: No intracranial abnormality seen. Occipital scalp soft tissue swelling. Reviewed, dictated and finalized at [facility]. ER THROUGH Impression: No intracranial abnormality seen. Occipital scalp soft tissue swelling.
[2023-03-17 07:52] VITALS: BP 116/75; PULSE 86; RESP 13; TEMP 36.4; O2SAT 99
--- NOTE | 2023-03-17 08:20 | PC.NURSE ---
Patient to CT
[2023-03-17 08:59] VITALS: BP 116/77; PULSE 82; RESP 17; O2SAT 98
--- NOTE | 2023-03-17 10:11 | ED.FALL ---
HPI - Fall General Chief Complaint: Fall Stated Complaint: fall Time Seen by Provider: 03/17/23 08:12 History of Present Illness HPI Narrative: 47-year-old female presenting to the emergency department for evaluation after having a ground level fall on the ice. Patient did strike her head but denies loss consciousness. Patient states after the head injury she did have a period where she fell her speech was off but she was able to text. Upon arrival to emergency department patient is back at her normal baseline. Patient does have a posterior scalp laceration. Related Data Home Medications Medication Instructions Recorded Confirmed metformin 500 mg tablet 500 mg PO BID 10/17/19 02/21/23 omeprazole 20 mg capsule,delayed 20 mg PO DAILY 10/17/19 02/21/23 release sumatriptan succinate 25 mg tablet 25 mg PO DAILY PRN MIGRANE 10/17/19 02/21/23 semaglutide 1 mg/dose (2 mg/1.5 1 mg subcut WEEKLY 10/31/22 02/21/23 mL) subcutaneous pen injector (Ozempic) Allergies Allergy/AdvReac Type Severity Reaction Status Date / Time lynn Allergy Severe Anaphylactic Verified 03/17/23 08:01 Shock lynn flavor Allergy Severe Anaphylactic Verified 03/17/23 08:01 Shock iodine Allergy Mild Rash Verified 03/17/23 08:01 risperidone AdvReac Other Verified 03/17/23 08:01 Review of Systems Review of Systems: All systems reviewed & are unremarkable except as noted in HPI and below PMFSH Past Medical History Medical History Asthma COPD (chronic obstructive pulmonary disease) Diabetes History of bipolar disorder Hyperlipidemia associated with type 2 diabetes mellitus DINESH (obstructive sleep apnea) Surgical History Surgical History History of cholecystectomy Family History Family History (Updated 03/12/23 @ 14:32 by Keyla Martinez CMA) Sibling Cerebrovascular accident Social History Social History Smoking packs per day: 2.5 Smoking cigarettes per day: 50.0 Years smoked: 17 Smoking pack-years: 42.50 Smoking status: Former smoker Additional smoking assessment comments: HAS NOT SMOKED FOR 4 MONTHS Alcohol intake: current Alcohol use details: 2 TIMES PER YEAR Lack of Transportation: No Lack of Food: Never True Current Housing: I Have Housing Concerned About Future Housing: No Difficulty Paying Gas/Electric Bills: No Difficulty Paying for Meds: YES Currently Unemployed: No Education: High School Diploma/GED Difficulty w/ Childcare or Family Care: No Living arrangements: with family Exam Narrative: APPEARANCE: Well appearing, no pain, no distress, well-nourished. HEAD: normocephalic, posterior scalp laceration. EYES: PERRLA/EOMI, conjunctivae clear. NOSE: Normal no drainage EARS:TMS clear with good light reflex. THROAT: Pharynx clear, no exudate. NECK: Supple. No adenopathy, no masses. RESPIRATORY: Airway patent, respirations nonlabored. Clear to auscultation bilaterally, no rales, rhonchi, wheezing. CARDIOVASCULAR: Regular rate and rhythm without murmurs rubs or gallops. ABDOMINAL: Soft, nontender, nondistended, normal bowel sounds MUSCULOSKELETAL: Moves all extremities. Strength/ROM intact, No edema, No calf tenderness. NEURO: Alert. Cranial nerves II through XII intact. Grossly intact Course Course Emergency Course: 47-year-old female present to the emergency department for evaluation after a head injury. While the emergency department patient was alert oriented and neurologically intact with no deficit. Patient's head and cervical spine CT were negative. Patient's laceration was repaired as described in the procedure note. Patient was updated on wound care and of the importance of close follow-up with her physicians. Patient was able to ambulate in the emergency department at her baseline.
[2023-03-17] MEDS: LIDO 1%/EPINEPHRINE 1:100,000 20 ML VIAL 10 ML INFILTRATE (10:29)
[2023-03-17 10:49] VITALS: BP 119/79; PULSE 86; RESP 18; O2SAT 99
== END 2023-03-17 10:57 | disposition home or self-care (01) ==
PROVIDERS: Emergency Provider Emergency Medicine; PCP Family Medicine
DX: S01.01XA Laceration without foreign body of scalp, initial encounter (principal); E11.69 Type 2 diabetes mellitus with other specified complication; E78.5 Hyperlipidemia, unspecified; J44.9 Chronic obstructive pulmonary disease, unspecified; G47.33 Obstructive sleep apnea (adult) (pediatric); Z87.891 Personal history of nicotine dependence; Z90.49 Acquired absence of other specified parts of digestive tract; Z79.85 Long-term (current) use of injectable non-insulin antidiabetic drugs; Z79.84 Long term (current) use of oral hypoglycemic drugs
CPT/HCPCS: 12002; 70450; 72125; 99284

== ENCOUNTER 2023-03-27 14:58 | Emergency (ER) | payer OTHER, SELFPAY ==
[2023-03-27 15:00] VITALS: BP 131/62; PULSE 96; RESP 16; TEMP 36.4; O2SAT 98
[2023-03-27 15:58] LABS: Influenza A QL RT-PCR Negative (Negative); Influenza B QL RT-PCR Negative (Negative); RSV RNA, RT-PCR Positive (Negative); SARS-CoV-2 RNA PCR Negative (Negative)
[2023-03-27] MEDS: predniSONE 20 MG TABLET 40 MG PO (16:25)
[2023-03-27] MEDS: ONDANSETRON HCL ODT 4 MG TABLET PO (16:25)
[2023-03-27 16:45] VITALS: O2SAT 100
[2023-03-27 16:50] VITALS: BP 133/82; PULSE 88; RESP 16; O2SAT 98
--- NOTE | 2023-03-27 18:31 | ED.URI ---
HPI - URI/Sore Throat General Chief Complaint: Upper Respiratory Infection Stated Complaint: UPPER RESP Time Seen by Provider: 03/27/23 16:01 History of Present Illness HPI Narrative: patient states that for last 3-4 days she has had URI symptoms, with congestion, cough. About 10 days ago she had slipped and fallen and landed on her tailbone, and head, and diagnosed with a concussion. Related Data Home Medications Medication Instructions Recorded Confirmed metformin 500 mg tablet 500 mg PO BID 10/17/19 02/21/23 omeprazole 20 mg capsule,delayed 20 mg PO DAILY 10/17/19 02/21/23 release sumatriptan succinate 25 mg tablet 25 mg PO DAILY PRN MIGRANE 10/17/19 02/21/23 semaglutide 1 mg/dose (2 mg/1.5 1 mg subcut WEEKLY 10/31/22 02/21/23 mL) subcutaneous pen injector (Thumb Friendly) Allergies Allergy/AdvReac Type Severity Reaction Status Date / Time lynn Allergy Severe Anaphylactic Verified 03/27/23 15:40 Shock lynn flavor Allergy Severe Anaphylactic Verified 03/27/23 15:40 Shock iodine Allergy Mild Rash Verified 03/27/23 15:40 risperidone AdvReac Other Verified 03/27/23 15:40 Review of Systems Review of Systems: CONST: chills HEENT: congestion, sore throat C/V: No chest pain RESP: cough GI: Nausea : No dysuria. M/S: tailbone pain SKIN: No rash. NEURO: [No focal numbness or weakness] PSYCH: [No depression] [facility] Past Medical History Medical History Asthma COPD (chronic obstructive pulmonary disease) Diabetes History of bipolar disorder Hyperlipidemia associated with type 2 diabetes mellitus DINESH (obstructive sleep apnea) Surgical History Surgical History History of cholecystectomy Family History Family History (Updated 03/12/23 @ 14:32 by Keyla Martinez CMA) Sibling Cerebrovascular accident Social History Social History Smoking packs per day: 2.5 Smoking cigarettes per day: 50.0 Years smoked: 17 Smoking pack-years: 42.50 Smoking status: Former smoker Additional smoking assessment comments: HAS NOT SMOKED FOR 4 MONTHS Alcohol intake: current Alcohol use details: 2 TIMES PER YEAR Lack of Transportation: No Lack of Food: Never True Current Housing: I Have Housing Concerned About Future Housing: No Difficulty Paying Gas/Electric Bills: No Difficulty Paying for Meds: YES Currently Unemployed: No Education: High School Diploma/GED Difficulty w/ Childcare or Family Care: No Living arrangements: with family Exam Narrative: EXAMINATION OF ORGAN SYSTEMS/BODY AREAS: Constitutional: Vital signs per nursing GENERAL:[No acute distress, non-toxic appearing.] HEAD: Normal with no signs of head trauma. EYES: EOMI, conjunctiva normal ENT: nasal congestion LUNGS: Nonlabored breathing. clear to auscultation bilaterally. HEART: [Regular rate and rhythm] ABD: [Soft], [nontender to palpation] EXT: Normal range of motion, normal gait. Some tenderness to tailbone. SKIN: [No rashes or lesions.] NEURO: [Alert and oriented x 3. No gross focal sensory or strength deficits.] PSYCH: Normal affect Course Vital Signs Vital signs: Vital Signs Temperature 97.5 F L 03/27/23 15:00 Pulse Rate 96 03/27/23 15:00 Respiratory Rate 16 03/27/23 15:00 Blood Pressure 131/62 03/27/23 15:00 Pulse Oximetry 98 03/27/23 15:00 Temperature 97.5 F L 03/27/23 15:00 Pulse Rate 88 03/27/23 16:50 Respiratory Rate 16 03/27/23 16:50 Blood Pressure 133/82 03/27/23 16:50 Pulse Oximetry 98 03/27/23 16:50 Oxygen Delivery Room Air 03/27/23 16:45 MDM - URI/Sore Throat MDM Narrative Medical decision making narrative: ED COURSE AND MEDICAL DECISION MAKING: This 47 year old patient presents with symptoms most suggestive of viral upper respirat
== END 2023-03-27 16:51 | disposition home or self-care (01) ==
PROVIDERS: Emergency Medicine; Emergency Provider Emergency Medicine; PCP Nurse Practitioner Adult Health
DX: J20.5 Acute bronchitis due to respiratory syncytial virus (principal); S33.8XXA Sprain of other parts of lumbar spine and pelvis, initial encounter; Z20.822 Contact with and (suspected) exposure to COVID-19; J44.9 Chronic obstructive pulmonary disease, unspecified; E11.69 Type 2 diabetes mellitus with other specified complication; E78.5 Hyperlipidemia, unspecified; G47.33 Obstructive sleep apnea (adult) (pediatric); Z87.891 Personal history of nicotine dependence; Z90.49 Acquired absence of other specified parts of digestive tract; Z79.84 Long term (current) use of oral hypoglycemic drugs; Z79.85 Long-term (current) use of injectable non-insulin antidiabetic drugs; W01.0XXA Fall on same level from slipping, tripping and stumbling without subsequent striking against object, initial encounter
CPT/HCPCS: 87637; 99283; A9270; J7512

== ENCOUNTER 2023-05-22 09:41 | Outpatient (CLI) | payer OTHER, SELFPAY ==
--- NOTE | ~2023-05-22 | MM_ITS ---
EXAMINATION: MM screening [facility] w [facility] HISTORY: Screening mammogram TECHNIQUE: Craniocaudal and mediolateral oblique 3-D tomosynthesis images were obtained and synthetic 2-D images were generated. CAD analysis was submitted and interpreted. COMPARISON: No prior mammogram is available for comparison at this institution. BREAST PARENCHYMAL COMPOSITION: There are scattered areas of fibroglandular density. FINDINGS: There is no evidence of suspicious mass, calcification, or architectural distortion to sugg est malignancy either breast. IMPRESSION: 1. No mammographic evidence of malignancy. 2. Recommend routine screening mammography in one year. BI-RADS Category 1: Negative Reviewed, dictated and finalized at location A.
== END 2023-05-22 09:42 | disposition home or self-care (01) ==
PROVIDERS: PCP Nurse Practitioner Adult Health; Visit Provider Obstetrics & Gynecology
DX: Z12.31 Encounter for screening mammogram for malignant neoplasm of breast (principal)
CPT/HCPCS: 77063; 77067

== ENCOUNTER 2024-02-07 19:50 | Emergency (ER) | payer OTHER, MEDICAID, SELFPAY ==
--- NOTE | ~2024-02-07 | CT_ITS ---
EXAMINATION: CT brain wo con DATE: 02/07/2024 20:26 INDICATION: ams . TECHNIQUE: Computed tomography (CT) of the head was performed without intravenous contrast. The mA wa s adjusted according to patient size. Iterative reconstruction technique was employed. The dose-lengt h product was 681.00 mGy-cm. COMPARISON: 03/17/2023. FINDINGS: No acute intracranial hemorrhage or extra-axial fluid collection. No hydrocephalus, mass, or herniation. No acute ischemic infarct. Unremarkable dural venous sinus attenuation. No acute osseous abnormality. The aerated spaces are clear. IMPRESSION: No acute intracranial process. Reviewed, dictated and finalized at location [facility]. [facility]
--- NOTE | 2024-02-07 20:00 | ECG_ITS ---
Test Date: 2024-02-07 20:06:52 Measurements Intervals [place] Rate: 98 P: 56 TX: 202 QRS: 12 QRSD: 81 T: 76 QT: 331 QTc: 423 Interpretive Statements SINUS RHYTHM POSSIBLE LEFT ATRIAL ENLARGEMENT [-0.1mV P-WAVE IN V1/V2] LOW QRS VOLTAGE IN PRECORDIAL LEADS [QRS DEFLECTION < 1.0 mV IN CHEST LEADS] NONSPECIFIC T-WAVE ABNORMALITY No previous ECG available for comparison Electronically Signed On 02-08-2024 08:41:06 [employer]IC[employer] by Shavon Sanchez M.D.
[2024-02-07 20:01] VITALS: BP 139/83; PULSE 102; RESP 13; TEMP 37.2; O2SAT 99
--- NOTE | 2024-02-07 20:12 | ED_ITS ---
HPI - Neuro Symptoms/Deficit General Chief Complaint: Suspected CVA Stated Complaint: not been right for a while ; shaking, vision issu Time Seen by Provider: 02/07/24 20:01 History of Present Illness HPI Narrative: This is a 48-year-old female with a past medical history significant for PTSD, anxiety and depression. Today she presents to the emergency department with generalized shaking and feeling nauseous. Patient states that she is having uncontrollable spasms in both her arms and legs and previously was diagnosed with frozen shoulder for left upper extremity after a injury. She states that she was going about her day normally and watching TV and felt like her blood sugar might have been elevated as she is a diet-controlled diabetic but did start taking semaglutide recently. Patient was brought back to the emergency department initially for her vague complaints of bilateral shaking with concern that she could be having a stroke although she has an NIH stroke scale 0 with symmetric strength throughout both arms and legs, no facial asymmetry or facial droop. Patient appears to be very anxious and having what appears to be a panic attack at this time with her symmetric shaking of the extremities, normal mental status and lack of focal findings. She has no history of strokes or TIAs, no history of cardiovascular disease. No recent injuries or trauma. Related Data Home Medications ?Medication ?Instructions ?Recorded ?Confirmed ?Last Taken ?Type metformin 500 mg tablet 500 mg PO BID 10/17/19 02/21/23 10/17/19 History omeprazole 20 mg capsule,delayed 20 mg PO DAILY 10/17/19 02/21/23 10/17/19 History release sumatriptan succinate 25 mg tablet 25 mg PO DAILY PRN MIGRANE 10/17/19 02/21/23 10/17/19 History semaglutide 1 mg/dose (2 mg/1.5 1 mg subcut WEEKLY 10/31/22 02/21/23 Unknown History mL) subcutaneous pen injector (Ozempic) Allergies Allergy/AdvReac Type Severity Reaction Status Date / Time lynn Allergy Severe Anaphylactic Verified 03/27/23 15:40 Shock lynn flavor Allergy Severe Anaphylactic Verified 03/27/23 15:40 Shock iodine Allergy Mild Rash Verified 03/27/23 15:40 risperidone AdvReac Other Verified 03/27/23 15:40 Review of Systems 2 Review of Systems: As reviewed above in HPI [facility] Past Medical History Medical History Asthma DINESH (obstructive sleep apnea) COPD (chronic obstructive pulmonary disease) Hyperlipidemia associated with type 2 diabetes mellitus Diabetes History of bipolar disorder Surgical History Surgical History History of cholecystectomy Family History Family History Sibling Cerebrovascular accident Social History Social History Smoking packs per day: 2.5 Smoking cigarettes per day: 50.0 Years smoked: 17 Smoking pack-years: 42.50 Smoking status: Former smoker Additional smoking assessment comments: HAS NOT SMOKED FOR 4 MONTHS Alcohol intake: current Alcohol use details: 2 TIMES PER YEAR Lack of Transportation: No Lack of Food: Never True Current Housing: I Have Housing Concerned About Future Housing: No Difficulty Paying Gas/Electric Bills: No Difficulty Paying for Meds: YES Currently Unemployed: No Education: High School Diploma/GED Difficulty w/ Childcare or Family Care: No Living arrangements: with family Exam 2 Narrative: GENERAL: Very anxious appearing, awake alert oriented answers all questions. NIH stroke scale 0 HEAD: [Normocephalic, atraumatic.] EYES: [PERRLA and EOMI.] ENT: Nares clear, no rhinorrhea or epistaxis. Mucous membranes moist. NECK: Supple. CHEST: [Clear to auscultation. No respiratory distress.] HEART: [Regular rate and rhythm]. No murmur heard. [Normal peripheral pulses.] ABDOMEN: [Soft, nondistended], [nontender], [No rigidity or guarding] EXTREMITIES: Normal range of motion. [No edema.] SKIN: Warm, dry, no rash. NEURO: [No focal deficits]. Alert and oriented [x3.] Moves both arms and legs without any weakness but seems to be shaking them symmetrically and rhythmically without any loss of consciousness. Answers all questions, no aphasia, no facial asymmetry or droop. Seems to be volitionally holding her extremities flexed and when trying to extend them passively she resists this motion full strength. No drift in the arms or legs. PSYCH: Very anxious mood and affect, tearful Course Vital Signs Vital signs: Vital Signs Temperature 37.2 C 02/07/24 20:01 Pulse Rate 102 H 02/07/24 20:01 Respiratory Rate 13 02/07/24 20:01 Blood Pressure 139/83 02/07/24 20:01 Pulse Oximetry 99 02/07/24 20:01 Oxygen Delivery Room Air 02/07/24 20:01 Temperature 37.2 C 02/07/24 20:01 Pulse Rate 83 02/08/24 00:11 Respiratory Rate 18 02/08/24 00:11 Blood Pressure 136/87 02/08/24 00:11 Pulse Oximetry 98 02/08/24 00:11 Oxygen Delivery Room Air 02/07/24 20:01 MDM - Neuro Symptoms/Deficit MDM Narrative Medical decision making narrative: 48-year-old female with a past medical history including anxiety, depression, PTSD and ?frozen shoulder history. Today she presents to the emergency room with generalized shaking, feeling like her extremities are stuck and feeling really anxious. She states she was otherwise feeling fine throughout the day. She recently started semaglutide for diabetes and weight control. Point of care glucose was slightly elevated 206. She has an NIH stroke scale is 0 without any facial asymmetries, facial droop, aphasia, ataxia. She has full strength in both arms and legs without any drift. She is holding her arms and legs flexed very volitionally and actively resists when I try to extend her legs or arms to gauge range of motion and strength. She is very anxious and appears to be having a panic attack. Triage concerns was that this could be a stroke however she has an negative stroke scale and no focality findings that would make me suspicious for that at this time. A CT head was ordered in addition to laboratory assessment, test, urine drug screen, toxicological screenings and she was provide Valium for her muscle cramping and for anxiety. EKG was obtained and nonischemic in nature. Patient was re-evaluated frequently and had complete symptomatic resolution after getting Valium here in the emergency department. She provides me little better collateral information at this time that she is feeling better and states that she recently cut her benzodiazepine therapy completely cold turkey and previously was on 3 times daily. She stopped 4 days prior which could explain that she might be actually undergoing some very mild withdrawal type symptoms from her benzodiazepine therapy chronically. Her laboratory studies were all reassuring as well as her CT scans without any acute evidence of stroke or any other concerns such as a mass. Given her symptomatic improvement resolution with benzodiazepine therapy I believe that could be contributing to the history and presentation today in can combination with her baseline anxiety. Went over this extensively with the patient and the family members at bedside. Ultimately we came to the conclusion that given patient's symptomatic improvement and stable vital signs and workup that she can safely follow up with her outpatient primary care provider and we gave her a prescription for Atarax and encouraged her to make an appointment on a short-term basis to see if she needs any assistance with her benzodiazepine therapy regimen and if she has any worsening or new symptoms to return to the ER at any time. Patient verbalized understanding and was safe for discharge at this time. Medical Records Attestation: I reviewed the patient's medical records. Lab Data Attestation: I reviewed the patient's lab results. 02/07/24 20:07 02/07/24 20:07 Labs: Lab Results 02/07/24 02/07/24 Range/Units 19:55 20:07 WBC 7.7 (4.5-10.0) K/mm3 RBC 4.87 (4.2-5.4) M/mm3 Hgb 13.7 (12.0-15.0) g/dL Hct 41.2 (37.0-47.0) % MCV 84.6 (80-100) fl MCH 28.1 (26-34) pg MCHC 33.3 (32-36) g/dl RDW 13.9 (11.5-14.5) % Plt Count 258 (150-375) k/mm3 MPV 9.4 (7.4-10.4) fl Immature Gran % (Auto) 0.3 (0-0.5) % Neut % (Auto) 59.7 (45.5-73.1) % Lymph % (Auto) 25.4 (18.3-44.2) % [place] % (Auto) 7.1 (2.6-8.5) % Eos % (Auto) 6.9 H (0-4.4) % Baso % (Auto) 0.6 (0.2-1.2) % Lymph # (Auto) 1.96 (0.9-3.2) K/mm3 [place] # (Auto) 0.6 (0.1-0.6) K/mm3 Eos # (Auto) 0.5 H (0-0.3) K/mm3 Baso # (Auto) 0.1 (0.0-0.1) K/mm3 Abs Immat Gran (auto) 0.02 (0.00-0.031) K/mm3 Absolute Neuts (auto) 4.6 (1.3-6.7) K/mm3 Absolute Nucleated RBC 0.000 (0.0-0.012) K/mm3 Nucleated RBC % 0.0 (0.0-0.2) % Sodium 138 (137-145) mmol/L Potassium 4.4 (3.4-5.0) mmol/L Chloride 105 (98-107) mmol/L Carbon Dioxide 24 (22-30) mmol/L Anion Gap 9 (4-12) mmol/L BUN 18 H (7-17) mg/dL Creatinine 0.60 L (0.7-1.0) mg/dL Estim Creat Clear Calc 160 ml/min Estimated GFR > 60 (59 - ) Glucose 209 H (65-110) mg/dL POC Capillary Glucose 209 H (65-105) mg/dl Calcium 9.6 (8.4-10.2) mg/dL Total Bilirubin 1.3 (0.2-1.3) mg/dL AST 49 H (14-36) U/L ALT 47 H (6-35) U/L Alkaline Phosphatase 79 (38-126) U/L Total Protein 9.0 H (6.3-8.2) g/dL Albumin 4.8 (3.5-5.1) g/dL Beta-Hydroxybutyrate/Acetoacetate 0.10 (0.02-0.27) mmol/L Serum HCG, Qual Negative Urine Color Yellow (Yellow) Urine Appearance Clear (Clear) Urine pH 5.5 (5.0-9.0) Ur Specific [place] 1.023 (1.001-1.035) Urine Protein Trace (Negative) mg/dL Urine Glucose (UA) 2+ H (Negative) mg/dL Urine Ketones Negative (Negative) mg/dL Ur Blood (Man) Negative (Negative) Urine Nitrate Negative (Negative) Urine Bilirubin Negative (Negative) Urine Urobilinogen 0.2 (<2.0) mg/dL Leukocyte Esterase Rfl Negative (Negative) TAWNYA/UL Urine RBC 0-2 (0-2) /hpf Urine WBC 0-5 (0-3) /hpf Ur Squamous Epith Cells None seen (Few) /hpf Urine Bacteria None seen /hpf Urine Casts 0-2 Salicylates < 1.0 L (2-20) mg/dL Urine Opiates Screen Negative (Negative) Urine Methadone Screen Negative (Negative) Acetaminophen < 10 L (10-30) ug/mL Ur Barbiturates Screen Negative (Negative) Ur Phencyclidine Scrn Negative (Negative) Ur Amphetamine Screen Negative (Negative) U Benzodiazepines Scrn Negative (Negative) Urine Cocaine Screen Negative (Negative) U Cannabinoids Screen Positive A (Negative) Ethyl Alcohol < 10 (<10) mg/dL Imaging Data Attestation: I personally reviewed and interpreted this imaging study as follows: My impression: Impressions Head CT 02/07/24 20:29 IMPRESSION: No acute intracranial process. Discharge Plan Discharge Clinical Impression: Benzodiazepine withdrawal, Anxiety Patient Disposition: Home, Self-Care Condition: Stable Instructions: Antibiotic Form, Anxiety (ED) Additional Instructions: Your workup is overall very reassuring including her were blood test and CT scans. After he told me live about your history I believe that your recent stopping of benzodiazepine therapy several days ago could have also contributed to your feelings of anxiety and your shaking today. Ultimately we will send you home with some medications to try for this and if you have your as needed benzodiazepines at home for any anxiety continue taking them when you need to. If you have any worsening or new concerns please return to the emergency department otherwise please follow-up with your primary care provider and whoever prescribed her regular medications. Patient Language: Cameroonian Prescriptions: New hydroxyzine HCl 10 mg tablet 10 mg PO TID PRN (Reason: anxiety) Qty: 30 0RF No Action albuterol sulfate 2.5 mg /3 mL (0.083 %) solution for nebulization 2.5 mg inhalation Q4-6H PRN (Reason: shortness of breath or wheezing) Qty: 90 0RF ipratropium-albuterol 0.5 mg-3 mg(2.5 mg base)/3 mL solution for nebulization 3 ml inhalation Q4H Qty: 180 6RF albuterol sulfate 90 mcg/actuation HFA aerosol inhaler 2 puff inhalation QID PRN (Reason: shortness of breath or wheezing) Qty: 8.5 6RF nwzccgchfod-zjoxkhydn-zlmweqen 200-62.5-25 mcg blister with device 1 inh inhalation DAILY Qty: 60 3RF Ozempic 1 mg/dose (2 mg/1.5 mL) pen injector 1 mg subcut WEEKLY mupirocin 2 % ointment 1 applic topical BID Qty: 22 3RF metformin 500 mg Tablet 500 mg PO BID sumatriptan succinate 25 mg tablet 25 mg PO DAILY PRN (Reason: MIGRANE) omeprazole 20 mg capsule,delayed release(DR/EC) 20 mg PO DAILY prednisone 20 mg tablet 40 mg PO DAILY 5 Days Qty: 10 0RF ondansetron 4 mg tablet,disintegrating 4 mg PO Q8H PRN (Reason: nausea and vomiting) Qty: 10 0RF Follow-up/Referrals: Hannah,Marv Chen APRN [Non-Staff] - Stand Alone Forms: Work/School Release IP Time of Disposition: 23:39
[2024-02-07 20:14] LABS: Basophils Absolute Auto 0.1 K/mm3 (0.0-0.1); Basophils Percent Auto 0.6 % (0.2-1.2); Eosinophils Absolute Auto 0.5 K/mm3 (0-0.3); Eosinophils Percent Auto 6.9 % (0-4.4); Hematocrit 41.2 % (37.0-47.0); Hemoglobin 13.7 g/dL (12.0-15.0); Immature Granulocyte Absolute 0.02 K/mm3 (0.00-0.031); Immature Granulocyte Percent A 0.3 % (0-0.5); Lymphocytes Absolute Auto 1.96 K/mm3 (0.9-3.2); Lymphocytes Percent Auto 25.4 % (18.3-44.2); Mean Corpuscular HGB Conc 33.3 g/dl (32-36); Mean Corpuscular Hemoglobin 28.1 pg (26-34); Mean Corpuscular Volume 84.6 fl (80-100); Mean Platelet Volume 9.4 fl (7.4-10.4); Monocytes Absolute Auto 0.6 K/mm3 (0.1-0.6); Monocytes Percent Auto 7.1 % (2.6-8.5); Neutrophils Absolute Auto 4.6 K/mm3 (1.3-6.7); Neutrophils Percent Auto 59.7 % (45.5-73.1); Platelet Count Result 258 k/mm3 (150-375); Red Blood Count 4.87 M/mm3 (4.2-5.4); Red Cell Distribution Width 13.9 % (11.5-14.5); White Blood Count 7.7 K/mm3 (4.5-10.0)
[2024-02-07 20:26] LABS: Acetaminophen < 10 ug/mL (10-30); Alanine Aminotransferase 47 U/L (6-35); Albumin Level 4.8 g/dL (3.5-5.1); Alkaline Phosphatase 79 U/L (38-126); Anion Gap 9 mmol/L (4-12); Aspartate Amino Transferase 49 U/L (14-36); Bilirubin,Total 1.3 mg/dL (0.2-1.3); Blood Urea Nitrogen 18 mg/dL (7-17); Calcium 9.6 mg/dL (8.4-10.2); Carbon Dioxide 24 mmol/L (22-30); Chloride 105 mmol/L (98-107); Estimated CRCL calculation 160 ml/min; Estimated Glomerular Filt Rate > 60; Ethanol < 10 mg/dL (<10); Glucose 209 mg/dL (65-110); Potassium 4.4 mmol/L (3.4-5.0); Salicylate < 1.0 mg/dL (2-20); Sodium 138 mmol/L (137-145)
[2024-02-07 20:31] LABS: SPREG INTERNAL CONTROL Positive; Serum Qual hCG Negative
--- NOTE | 2024-02-07 20:37 | PC.NURSE ---
Attempted to obtain urine sample from pt, pt states she cannot open her eyes and cannot give a sample at this time
--- NOTE | 2024-02-07 20:40 | PC.NURSE ---
pt c/o chest pain, Dr. Shoemaker notified no new orders at this time
[2024-02-07 20:43] LABS: Glucose Point of Care 209 mg/dl (65-105)
[2024-02-07] MEDS: LACTATED RINGERS 1,000 ML 999 ML IV CONT (20:48)
[2024-02-07] MEDS: diazePAM INJ (*CRX) 10 MG/2 ML SYRINGE 5 MG IV PUSH (20:48)
[2024-02-07 21:56] LABS: Add Urine Microscopic? YES; Appearance Urine Clear (Clear); Bacteria Urine None Seen /hpf; Bilirubin Urine Negative (Negative); Blood Urine Negative (Negative); Color Urine Yellow (Yellow); Glucose Urine UA 2+ mg/dL (Negative); Ketones Urine Negative (Negative); Leukocyte Esterase Ur Negative LEU/UL (Negative); Nitrate Urine Negative (Negative); Non Pathogenic Casts 0-2; Protein Urine Trace mg/dL (Negative); RBC Urine 0-2 /hpf (0-2); Specific Grav Ur 1.023 (1.001-1.035); Squamous Epithelial Cell Urine None Seen /hpf (Few); Urobilinogen Urine 0.2 mg/dL (<2.0); WBC Urine 0-5 /hpf (0-3); pH Urine 5.5 (5.0-9.0)
--- NOTE | 2024-02-07 22:19 | PC.NURSE ---
Pt in no signs of distress and is resting quietly, pt states she feels better sometimes, but it comes and goes . Pt ambulated with steady gait to restroom
[2024-02-07 22:22] VITALS: BP 148/76; PULSE 84; RESP 15; O2SAT 95
--- NOTE | 2024-02-07 22:31 | PC.NURSE ---
Called lab to check on progress of UDS, Lab states they have it and they are working on it
[2024-02-07 22:53] LABS: Amphetamine Screen Urine Negative (Negative); Barbiturate Screen Urine Negative (Negative); Benzodiazepines Screen Urine Negative (Negative); Cannabinoid Screen Urine Positive (Negative); Cocaine Screen Urine Negative (Negative); Methadone Screen Urine Negative (Negative); Opiate Screen Urine Negative (Negative); Phencyclidine Screen Urine Negative (Negative)
[2024-02-07 23:26] VITALS: BP 132/60; PULSE 90; RESP 16; O2SAT 99
[2024-02-08 00:11] VITALS: BP 136/87; PULSE 83; RESP 18; O2SAT 98
--- OUTSIDE RECORDS SUMMARY | 2024-02-12 03:26 | XMS_ITS | Encounter Summary ---
Author Organization [facility] Address [address] [place] [address] Care Team Providers Care Technology Adoption Manager Name Role Phone Wilmer Carnes MD Primary Care Provider Encounter Details Date Type Department Care Team (Latest Contact Info) Description 02/18/2023 Travel Social History Tobacco Use Types Packs/Day Years Used Date Smoking Tobacco: Former Cigarettes 0 07/11/1982 - 07/11/2010 Smokeless Tobacco: Never Alcohol Use Standard Drinks/Week Comments Yes 0 (1 standard drink = 0.6 oz pur e alcohol) occasionally Sex and Gender Information Value Date Recorded Sex Assigned at Not on file Gender Identity Not on file Sexual Orientation Not on file documented as of this encounter Functional Status Functional Status Response Date of Assess ment Is person deaf or have serious hearing difficult y? No 02/12/2023 Is person blind or have serious difficulty seein g? No 02/12/2023 Does person have serious dif ficulty walking/climbing stairs? No 02/12/2023 Does person have difficulty dressing/bathing? No 02/12/2023 Does person have difficulty doing errands alone? No 02/12/2023 Cognitive Status Response Date of Assessm ent Does person have difficulty concentrating/remembering/making decisions? No 02/12/2023 documented as of this encounter Plan of Treatment Not on file documented as of this encounter Visit Diagnoses Not on filedocumented in this encounter Care Teams Technology Adoption Manager Relationship Specialty Start Date End Date Wilmer Carnes MD [address] [place] [address] PCP - General Family Medicine 01/16/21 documented as of this encounter
--- OUTSIDE RECORDS SUMMARY | 2024-02-12 03:26 | XMS_ITS | Encounter Summary ---
Author Organization [facility] Address [address] [place] [address] Care Team Providers Care Pattern Drafter Name Role Phone Wilmer Carnes MD Primary Care Provider Reason for Visit * Reason Onset Date Comments Question 02/15/2021 Encounter Details Date Type Department Care Team (Late st Contact Info) Description 02/15/2021 Telephone [facility] - Rheumatology [address], [address] [place] [address] Walter Schaefer DO [address] [place] [address] Question Social History Tobacco Use Types Packs/Day Years [...] on file documented as of this encounter Miscellaneous Notes * Telephone Encounter - Yaneth Gaytan LPN - 02/15/2021 2:51 PM CRITICAL CARE CNS Called patient back with Dr Schaefer's directions : continue taking her hydroxychloriqiune as ordered,it not not contraindicated with antibiotc therapy. No answer so LVM. Also sent her a [employer] message. [facility]AL [facility] CNS * Telephone Encounter - Walter Schaefer DO - 02/15/2021 2:46 PM CST There really is no indication to hold hydroxychloroquine while receiving treatment for an infectionsince it has no significant immune suppressive affects however missing a few days of this medication probably will not cause any significant problem with her underlying rheumatoid arthritis condition. ICAL CARE CNS * Telephone Encounter - Yaneth Gaytan LPN - 02/15/2021 11:31 AM CRITICAL CARE CNS Has sinus infection, just started antibiotics last dorothy, amoxicillin 875 mg BID , does she need to hold her hydroxycholiquine ? Please advise ICAL CARE CNS documented in this encounter Plan of Treatment Not on file documented as of this encounter Visit Diagnoses Not on filedocumented in this encounter Care Teams Pattern Drafter Relationship Specialty Start Date End Date Wilmer Carnes MD [address] [place] [address] PCP - General Family Medicine 01/16/21 documented as of this encounter
--- OUTSIDE RECORDS SUMMARY | 2024-02-12 03:26 | XMS_ITS | Encounter Summary ---
Author Organization [facility] Address [address] [place] [address] Care Team Providers Care Template Reproduction Technician Name Role Phone Wilmer Carnes MD Primary Care Provider [phone] Reason for Visit * Reason Onset Date Comments Surgery Scheduling 01/24/2023 Encounter Details Date Type Department Care Team (Late st Contact Info) Description 01/24/2023 Telephone [facility] - ENT [address], [address] [place] [address] Magdalena Dowd Surgery Scheduling Social History Tobacco Use Types Packs/Day Years [...] encounter Miscellaneous Notes * Telephone Encounter - Magdalena Dowd - 01/24/2023 10:26 AM CST Note in Epic says patient called head and neck and left message saying she wants to reschedule her surgery. Called patient to verify and discuss reschedule. Left 2nd voice message [employer] documented in this encounter Plan of Treatment Not on file documented as of this encounter Visit Diagnoses Not on filedocumented in this encounter Care Teams Template Reproduction Technician Relationship Specialty Start Date End Date Wilmer Carnes MD [address] [place] [id number] PCP - General Family Medicine 01/16/21 documented as of this encounter
--- OUTSIDE RECORDS SUMMARY | 2024-02-12 03:26 | XMS_ITS | Encounter Summary ---
Author Organization [facility] Address [address] [place] [address] Care Team Providers Care Lens Shaper Grinder Name Role Phone Wilmer Carnes MD Primary Care Provider Encounter Details Date Type Department Care Team (Latest Contact Info) Description 11/13/2022 Travel Social History Tobacco Use Types Packs/Day [...] on file documented as of this encounter Plan of Treatment Not on file documented as of this encounter Visit Diagnoses Not on filedocumented in this encounter Care Teams Lens Shaper Grinder Relationship Specialty Start Date End Date Wilmer Carnes MD [address] [place] [address] PCP - General Family Medicine 01/16/21 documented as of this encounter
--- OUTSIDE RECORDS SUMMARY | 2024-02-12 03:26 | XMS_ITS | Encounter Summary ---
Author Organization [facility] Address [address] [place] [address] Care Team Providers Care Parking Control Officer Name Role Phone Wilmer Carnes MD Primary Care Provider Reason for Visit * Auth/Cert (Routine) Specialty Diagnoses / Procedures Referred By Contac t Referred To Contact Diagnoses Nasal valve collapse NASAL VALVE COLLAPSE Procedures CA REPAIR NASAL CAVITY STENOSIS RECONSTRUCTION/REPAIR NASAL Referral ID Status Reason Start Date Expiration Date Visits Re quested Visits Authorized [id number] 1 1 Encounter Details Date Type Department Care Team (Late st Contact Info) Description 02/12/2023 9:07 AM CLIENT EXPERIENCE ADMINISTRATOR Anesthesia Event [facility] [address] [place] [address] Morgan Wesley MD [address] [place] [address] Anesthesia Record Procedure Summary Procedure Name Responsible Anesthesiologist Anesthesia Start Time Anesthesia Stop Time NASAL VALVE REPAIR, LEFT AURICULAR CARTILAGE GRAFT (Nose) Morgan Wesley MD 02/12/23 0907 02/12/23 1039 Events Date Time Event Comment 02/12/2023 0836 0907 An Start 0907 Pt In Room 0907 An Start Data 0911 PT Reassessment 0913 Induction 0916 An Intubation 0919 Anes Ready 0922 Quick Note No temperature probe available. Patient had aydin hugger on at high in pre-op. Lower body aydin hugger covering from foot to upper chest for the duration of procedure intra-op. Will check frequent manual skin temp. 0931 Time Out Anesthesia part icipated in timeout at the time documented in the record by nursing 0934 Quick Note Patient feels w arm to touch. Aydin hugger on at high flow, 43 degrees celcius. 0936 Proc Start 0944 Quick Note Patient feels w arm to touch. Aydin hugger on at high flow, 43 degrees celcius. 1001 Quick Note Patient feels w arm to touch. Aydin hugger on at high flow, 43 degrees celcius. 1017 Quick Note Patient feels w arm to touch. Aydin hugger on at high flow, 43 degrees celcius. 1029 Proc Stop 1029 An Emergence 1029 Quick Note Patient vomited bloody secretion while ETT still in place. Suctioned completely before extubating 1030 Extubation 1034 an stop data 1034 Pt out of Room 1034 ANPTO2 1039 An Stop Meds Name Total ceFAZolin 2,000 mg IVPB 2 g midazolam 2 mg/2mL injection 2 mg fentaNYL 100 mcg/2ml injection 100 mcg lidocaine PF 2% 100 mg propofol 200mg/20mL injection 160 mg rocuronium 50 mg/5 mL injection 70 mg dexamethasone 10 mg/ml PF injection 10 m g neostigmine 1 mg/ml injection 4 mg lidocaine 4% topical solution 4 mg lactated ringers infusion 600 mL * Agents Name Insp. N2O Exp. Sevoflurane Exp. N2O O2 Air Insp. Sevoflurane N2O * Blood No blood administrations on file. Lines, Drains, and Airways Type Details Placement Removal Peripheral IV Date: 02/12/23; Time : 734; Orientation: Right; Placed By: hortencia aj; Tolerance: Well 02/12/23 0735 by Hortencia Thomas RN 02/12/23 1255 by Hortencia Thomas RN ETT Date: 02/12/23; Time : 918; Placed By: Sampson Urrutia DO; Vent: easy with oral airway mask; Induction: Standard IV; Blade Type: Aron; Blade Size: 3; Laryngoscopy View: Grade 2 (partial cords); Intubation Adjuncts: Stylet; Tube: Endotracheal Tube; Placement: Oral; Tube Type: Cuffed-inflated; Tube Size(mm): 7 MM; Measured From: lips; Attempts: 1; Cuff Infated: Air; Cuff Vol(mL): 8 mL; Verified By: Direct visualization, Bilateral breath sounds, Chest Auscultation, CO2 Monitor 02/12/23 0919 by Sampson Urrutia DO 02/12/23 1031 by Sampson Urrutia DO documented in this encounter Social History Tobacco Use Types Packs/Day Years [...] on file documented as of this encounter Progress Notes * Morgan Wesley MD - 02/12/2023 11:21 AM CST ANESTHESIA POSTOP EVALUATION NOTE Procedure: NASAL VALVE REPAIR, LEFT AURICULAR CARTILAGE GRAFT (Nose) Oumou Middleton is a 47 year old female Patient Vitals for the past 6 hrs: BP Temp Pulse Resp SpO2 Pain Rating Score #1 Pain Scale/Observation Pulse - (SPO2/Cuff) 02/12/23 0732 125/91 98 ??F (36.7 ??C) 80 16 97 % 0 N -- 02/12/23 0745 130/78 -- 81 12 97 % -- -- 80 bpm 02/12/23 1035 131/65 -- 83 11 99 % -- -- -- 02/12/23 1040 120/68 98.1 ??F (36.7 ??C) 82 (!) 8 93 % -- -- -- 02/12/23 1045 100/78 -- 82 10 92 % -- -- -- 02/12/23 1050 116/64 -- 75 12 95 % -- -- -- 02/12/23 1100 110/64 -- 81 (!) 0 90 % 3 -- -- 02/12/23 1105 -- -- 85 10 94 % -- -- -- 02/12/23 1115 112/63 -- 73 12 93 % -- -- -- Anesthesia Type: general ETT Pre-op Diagnosis Codes: * Nasal valve collapse [M95.0] Mental Status: awake, alert, oriented and sufficiently recovered from acute administration of anesthesia to participate in the evaluation Neuro Status: No numbness, tingling or visual disturbances Respiratory Function: natural Cardiac Function: stable Postop Pain: acceptable to the patient and adequate Postop Hydration: adequate Postop Nausea: treated/stable Assessment: no apparent anesthetic complications and patient tolerated procedure well Patient Disposition: Release from Anesthesia Care NOTABLE EVENTS: No notable events documented. NT EXPERIENCE ADMINISTRATOR * Morgan Wesley MD - 02/12/2023 8:58 AM CST ANESTHESIA PREOPERATIVE EVALUATION NOTE Procedure: NASAL VALVE REPAIR, AURICULAR CARTILAGE GRAFT (Nose) Vitals: Patient Vitals for the past 6 hrs: BP Temp Pulse Resp SpO2 02/06/23 1058 138/85 97.9 ??F (36.6 ??C) 92 18 100 % LMP: No LMP recorded. Patient is premenopausal. OB Status: Premenopausal ANESTHESIA PRE-EVALUATION NOTE History of Present Illness: 47 year female with a PMHx of Anxiety, Asthma, COPD (inhaler uses rescue inhaler 2-4 times per day d/t nasal obstruction, feeling like she can't get enough air) post surgery in 10/2022 for septoplasty), Type 2 DM (Hgb A1c 5.2 10/2022), Lumbar herniated disc, RA, PTSD, DINESH (cpap) and Nasal valve collapse. She is s/p Septoplasty 10/2022. She is scheduled for a Nasal Valve Repair, Auricular Cartilage Graft (Nose) with Dr. Montano. Allergies: Ranitidine, Risperidone, Parada, Iodine Previous Airway Management: ETT Placed: The patient is a current non-smoker (quit 2010). Physical Exam: Orientation X3 Airway/Mallampati Score: II Mouth Opening Distance: 3 fingerwidths Neck ROM: full TM Distance: > 3 FB Teeth: normal Heart: normal - S1 S2 Lungs: clear to ausculation bilaterally Abdomen Exam: normal Physical Exam Additional Comments: She lives a sedentary lifestyle. She can walk one block without sob or cp Review of Systems: History of anesthetic complications: Yes Sleep Apnea Risk: Yes Malignant Hyperthermia: No Delayed Emergence: Yes (patient states she had to stay overnight 10/2022) Difficult IV Access: Yes GERD: Yes (no meds), well controlled Poor Exercise Tolerance: Yes (limited d/t copd) Recent Chest Pain: No Shortness of Breath: Yes (SERRANO) AICD/Pacemaker: No Renal Disease: No Diagnostic Tests: Lab(s) reviewed: Yes (02/06/2023 grossly wnl). Start of PAT Evaluation: - if BP is poorly controlled (eg SBP >180 or DBP >110) then contact Dr. Kong or KEITH - if patient taking JOSE-I or ARB or Entresto then hold ONLY AM dose on DOS unless severe CHF or poorly controlled HTN This evaluation was based on PAT clinic visit I. Perioperative Cardiac Risk Index Stratification based on 2014 ACC/AHA Guidelines for patients undergoing noncardiac surgery Perioperative risk of a Major Adverse Cardiac Event (MACE) during hospitalization. Add one point (0-6) for each positive RCRI (Revised Cardiac Risk Indicator) 1. Is the Surgical Procedure High-Risk? NO 2. History of Ischemic Heart Disease? NO If yes then paste summary of most recent cath / stress tests under Other Additional Findings/Comments section above: 3. History of CHF? no If yes then paste summary of most recent TTE / SHAWANDA under Other Additional Findings/Comments sectionabove: Murmur? no if yes and without recent echocardiogram then may need TTE contact Dr. Kong or KEITH 4. History of Cerebrovascular Disease? Prior TIA or stroke no If yes then paste summary of most any relevant neurovascular imaging or carotid duplex results under Other Additional Findings/Comments section above: Carotid bruit? no if yes then may need carotid duplex - contact Dr. Kong or KEITH 5. Insulin-Dependent Diabetes? yes No results for input(s): HGBA1C , A1C , LTWBSTINE3C , EAG in the last 55332 hours. Insulin pump? no if yes then patient was instructed to continue at 75% basal rate on DOS? no Long acting insulin: glargine (Lantus,Toujeo, Basaglar), detemir (Lemenir), degludec (Tresiba) NO 6. Preoperative Creatinine > 2 mg/dl? no Baseline Cr? 0.62 Total RCRI / MACE score 1 Point >= 0.9% Functional capacity > 4 METS? no If MACE < 1%, no further testing required. Proceed to surgery. Patient is at low risk of MACE. If MACE > 1% Elevated risk. Need to assess the patient's functional capacity. 4 METs = Can walk up a flight of steps or a hill or walk on level ground at 3 mph If > 4 METs. Proceed to surgery. If < 4 METs or unknown functional capacity then discuss with attending, as further workup may beindicated. II. Consults: NO Copy and paste relevant results Follow up N/A III. CIEDs: Does patient have a CIED (cardiovascular implantable electronic device eg: PM, AICD)? no If yes then copy and paste interrogation report here. Timing of interrogation should be within 1 year for PM and Within 6 months for AICD Rolla Information needed (parachute supervisor, mode, indication for CIED, battery life, magnet function): IV. Anticoagulants: Are they receiving antiplatelet/anticoagulant medications (besides ASA)? What is the periop plan? NO Follow up N/A V. Previous blood transfusion? no If potential for large EBL: then obtain 1st T&S in PAT clinic (unless previously done and no transfusions since). Order repeat T&S (aka re-type) for DOS :If chart review only and h/o previous transfusions without recent T&S, then need to come in for T&S as above and order retype for DOS Patients with previous transfusions may have developed alloantibodies to donor RBC surface antigens, which may cause hemolytic or delayed hemolytic transfusion reactions upon subsequent exposure to donor PRBCs. VII. Known DINESH or STOP-BANG> 5: yes Snoring, Tired, Observed apnea, high blood Pressure, BMI>35, Age>50, Neck circumference>18 If yes then: update Epic problem list to include: DINESH If patient has already diagnosed DINESH and is being admitted then initiate order set: DINESH --> Pul Inpatient Sleep Apnea Standing orders (order set 4525) 1. Also click Home CPAP for hospital use if applicable. 2. Select Phase of Care under options tab in upper right corner. 3. Choose post-op and sign (not sign and hold) phase of care and select the scheduled procedure. Remind patient to bring home unit if staying overnight. If pt has STOP-BANG >=5 with undiagnosed DINESH and is being admitted then order: IP Consult to Lighting Engineering Technician (comment regarding consult for undiagnosed DINESH) - Follow steps 2 and 3 above If pt has STOP-BANG >=5 with undiagnosed DINESH and is outpatient and interested in setting up a sleep study then: - send Epic message to DAVID and cc Dr. Kong Patient was educated about the potential implications of DINESH on their perioperative course and recommendations for follow-up care were addressed - including inpatient consult(s) as above? yes VIII. Known or suspected difficult airway no and complete previous airway management section above If yes then: update Epic problem list to include: difficult airway and call Dr. Kong or AIC IX. Frailty screen: No data recorded X. Suboxone (Buprenorphine / Naloxone) therapy? N/A GLP-1 Agonists yes AND asked to skip last dose within 1 week of surgery XI. Most recent EKG: EKG needed within 6 months if: (ASA >= 3 OR any RCRI) AND non-low risk procedure XI. Additional testing needed within 3 months prior to DOS (if possible, else on DOS): - CBC w/o Diff if ASA >= 3 OR expected blood loss >250 OR previously abnormal - BMP is ASA >= 3 OR taking diuretics, K+ supplements, JOSE-I, ARBs OR any RCRI - CMP (instead of BMP) for patient with chronic liver disease or previously abnormal - PT/ PTT/ INR if recent use of anticoagulants OR scheduled for major vascular procedures includingaortic and carotid stents / aneurysm coiling / TIPS Additional testing needed on DOS : - EPOC blood glucose for patients w/ DM - EPOC whole blood K+ for patient with ESRD or poorly controlled K+ Labs ordered today including PAT and surgeon orders: CBC and BMP Labs/tests ordered or in need of review on DOS: hCG Summary: Oumou Middleton is a 47 year old female presenting for NASAL VALVE REPAIR, AURICULAR CARTILAGE GRAFT (Nose). They have an ASA score of 3 and a RCRI / MACE score of 1 Point >= 0.9% Follow up results - have ALL the above ordered labs and vital signs been reviewed? YES - results are grossly WNL for this patient They ARE OPTIMIZED - PAT EVALUATION COMPLETE Nutressa Lakhani, LARGE ENGINE ASSEMBLER-SHEET METAL SHOP HELPER 02/06/2023 3:29 PM for this procedure. Final clearance pending Exchange Floor Manager evaluation DOS in ACU. Preoperative plan was not discussed w/ PAT attending. To be discussed DOS in ACU. End of PAT Evaluation: ANESTHESIA PLAN ASA Score: 3 NPO Status: No solids since midnight Anesthesia Plan: general ETT Planned Induction: intravenous Planned Postop Destination: PACU Anesthetic plan was discussed with: patient Anesthetic Plan discussion was: Consented Use of blood products were discussed with: patient Use of blood product discussion was: Consented The patient's procedural Anesthetic Plan was discussed with the resident. BMI, Height, Weight Tobacco History Estimated body mass index is 34.5 kg/m?? as calculated from the following: Height as of this encounter: 1.575 m (5' 2 ). Weight as of this encounter: 85.5 kg (188 lb 9.6 oz). Social History Tobacco Use Smoking Status Former ??? Years: 28 ??? Types: Cigarettes ??? Quit date: 07/11/2010 ??? Years since quittin.5 Smokeless Tobacco Never Alcohol History Drug History Social History Substance and Sexual Activity Alcohol Use Yes Comment: occasionally Social History Substance and Sexual Activity Drug Use No Outpatient Medications: Inpatient Medications: No outpatient medications have been marked as taking for the 02/06/23 encounter (Hospital Encounter) with [facility] PAT ROOM 1. No current facility-administered medications for this encounter. Allergies: Allergies Allergen Reactions ??? Ranitidine Unknown ??? Risperidone Other Reaction: OTHER REACTION ??? Parada Anaphylaxis ??? Iodine Rash Relevant Problems Other (+) Seronegative rheumatoid arthritis of multiple sites ([facility]) Problem List: Patient Active Problem List Diagnosis Date Noted ??? Seronegative rheumatoid arthritis of multiple sites ([facility]) 01/16/2021 Priority: Not Prioritized ??? Elevated liver enzymes 01/16/2021 Priority: Not Prioritized ??? ART positive 01/16/2021 Priority: Not Prioritized Laboratory testing collected 11/10/2020 indicated presence of a positive ART at a titer >= 1-1280 with a nuclear dot pattern (multiple nuclear dot (MND), or pseudocentromere, anti-nuclear antibody(ART) is an uncommon pattern associated primarily with primary biliary cirrhosis (PBC) and anti-mitochondrial antibody (AMA). Her lab has also been significant for serum AST elevated at 70 at approximately 2 times upper limit of normal and ALT elevated at 92 at approximately 2.5 times upper limit of normal with consideration for possible autoimmune liver disease. Medical History: Past Medical History: Diagnosis Date ??? Anxiety ??? Asthma Dr. mcdaniels controls ??? [place] ??? [place] ??? Lumbar herniated disc ??? PTSD (post-traumatic stress disorder) ??? Sleep apnea in adult Surgical History: Past Surgical History: Procedure Laterality Date ??? ADENOIDECTOMY ??? Back Surgery Frontal fusion ??? Cholecystectomy ??? Septoplasty 11/01/2022 ON SITE CONSTRUCTION SUPERINTENDENT Status: No LMP recorded. Patient is premenopausal. Premenopausal OB History No obstetric history on file. Covid Vaccine: Lab Results: Recent Labs Component Name 02/06/23 1140 WBC 7.3 RBC 4.83 HCT 39.6 HGB 13.0 PLTCOUNT 248 MCV 82.0 MCH 26.9 MCHC 32.8 MPV 10.1 Recent Labs Component Name 02/06/23 1140 POTASSIUM 3.4* CALCIUM 9.2 CO2 25 GLUCOSE 177* BUN 10 CREATININE 0.62 No results found for requested labs within last 120 days. Recent Labs Result Component Current Result Anion Gap 6 (02/06/2023) eGFR by CKD-EPI >90 (02/06/2023) NT EXPERIENCE ADMINISTRATOR documented in this encounter Procedure Notes * Sampson Urrutia DO - 02/12/2023 9:35 AM CSTAssociated Order(s): ETT Placement Endotracheal Tube Placement: Patient Location: OR. Intubation Event Date/Time: 02/12/2023 9:19 AM Procedure: intubation (03979). Procedure Section: Sedation: under general anesthesia. Indications for Airway Management: anesthesia Procedure pretreatments used? No Induction: standard IV Patient Position: supine and sniffing Mask Ventilation: easy with oral airway. Blade Type: Aron Blade Size: 3 Laryngoscopy View: grade 2 (partial cords) Intubation Adjuncts: stylet Tube: endotracheal tube Placement: oral Tube type: cuff - inflated Tube Size (MM): 7 Measured From: lips Cuff volume (mL): 8 Cuff Inflated With: air Number of Attempts: 1. Placement Verified By: direct visualization, bilateral breath sounds, chest auscultation and CO2 monitor Tube secured with: adhesive tape. Dentition unchanged? Yes Difficult Airway? No. Procedure Start Time: 02/12/2023 9:19 AM. Staff Section Anesthesia Provider: Sampson Urrutia DO, Performed the procedure Provider #1: Morgan Wesley MD. NT EXPERIENCE ADMINISTRATOR documented in this encounter Miscellaneous Notes * Anesthesia Transfer of Care - Kelsie Magana DO - 02/12/2023 10:40 AM CLIENT EXPERIENCE ADMINISTRATOR ANESTHESIA TRANSFER OF CARE NOTE Today's Date: 02/12/2023 Date of : 1975 Patient: Oumou Middleton Procedure(s): NASAL VALVE REPAIR, LEFT AURICULAR CARTILAGE GRAFT Surgeon(s): Primary: Ellis Montano MD Resident - Assisting: Antonio Frausto MD Preop Diagnosis: Pre-op Diagnois: * Nasal valve collapse [M95.0] Pre-op Meds (From admission, onward) Start Stop Status Route Frequency Ordered 02/12/23 0730 acetaminophen (Tylenol) tablet 650 mg 02/12/23 0752 Completed PO PRE-OP ONCE 02/12/23 0718 02/12/23 1032 albuterol-ipratropium (Duo-Neb) nebulizer solution 3 mL -- Verified IN POST-OP MULTIPLE 02/12/23 1032 02/12/23 1032 diphenhydrAMINE (Benadryl) injection 25 mg -- Verified IV ONCE PRN 02/12/23 1032 02/12/23 1032 fentaNYL (PF) (Sublimaze) injection 25 mcg -- Verified IV EVERY 10 MIN PRN 02/12/23 1032 02/12/23 1032 fentaNYL (PF) (Sublimaze) injection 50 mcg -- Verified IV EVERY 10 MIN PRN 02/12/23 1032 02/12/23 1032 HYDROmorphone (Dilaudid) injection 0.5 mg -- Verified IV EVERY 10 MIN PRN 02/12/23 1032 02/12/23 0730 insulin regular human (HumuLIN R; NovoLIN R) 100 UNIT/ML injection 0-6 Units 02/12/23 1929 Verified IV ONCE 02/12/23 0718 02/12/23 1032 labetalol (Normodyne; Trandate) injection 5 mg -- Verified IV POST-OP MULTIPLE 02/12/23 1032 02/12/23 0730 lactated ringers infusion -- Dispensed IV PRE-OP CONTINUOUS 02/12/23 0718 02/12/23 1045 lactated ringers infusion -- Dispensed IV CONTINUOUS 02/12/23 1032 02/12/23 1032 metoclopramide (Reglan) injection 10 mg -- Verified IV ONCE PRN 02/12/23 1032 02/12/23 1032 naloxone (Narcan) injection 0.04 mg -- Verified IV POST-OP MULTIPLE 02/12/23 1032 02/12/23 1032 prochlorperazine (Compazine) injection 10 mg -- Verified IV ONCE PRN 02/12/23 1032 Post-op Diagnosis: * Nasal valve collapse [M95.0] . Allergies Allergen Reactions ??? Risperidone Other Reaction: OTHER REACTION ??? Parada Anaphylaxis ??? Iodine Rash Vitals: Patient Vitals for the past 3 hrs: BP Pulse Resp SpO2 02/12/23 0745 130/78 81 12 97 % Lines, Drains, and Airways Type Details Placement Removal Peripheral IV Date: 02/12/23; Time: 734; Orientation: Right; Location: Wrist; Placed By: hortencia aj; Gauge: 20 Gauge; Locals: None; Tolerance: Well 02/12/23 0735 by Hortencia Thomas RN ETT Date: 02/12/23; Time: 918; Placed By: Sampson Urrutia DO; Vent: easy with oral airway mask; Induction: Standard IV; Blade Type: Aron; Blade Size: 3; Laryngoscopy View: Grade 2 (partial cords);Intubation Adjuncts: Stylet; Tube: Endotracheal Tube; Placement: Oral; Tube Type: Cuffed-inflated; Tube Size(mm): 7 MM; Measured From: lips; Attempts: 1; Cuff Infated: Air; Cuff Vol(mL): 8 mL; Verified By: Direct visualization, Bilateral breath sounds, Chest Auscultation, CO2 Monitor 02/12/23 09 by Sampson Urrutia DO 02/12/23 103 by Sampson Urrutia DO Intraprocedure I/O Totals Intake lactated ringers infusion 600.00 mL Total Intake 600 mL Patient Transfer Location: PACU Transport Airway: supplemental O2 and spontaneous respirations Transport Monitoring: heart rate and continuous pulse oximetry Complications: None Handoff Given? Yes Checklist or Protocol - The lopez handoff elements that must be included in the transfer of care checklist include: 1. Identification of patient. 2. Identification of responsible practitioner (PACU nurse or advanced practitioner). 3. Discussion of pertinent medical history. 4. Discussion of the surgical/procedure course (procedure, reason for surgery, procedure performed). 5. Intraoperative anesthetic management and issue/concerns. 6. Expectations/Plans for the early post-procedure period. 7. Opportunity for questions and acknowledgement of understanding of report from the receiving PACU team. Kelsie Magana DO NT EXPERIENCE ADMINISTRATOR documented in this encounter Plan of Treatment Not on file documented as of this encounter Procedures Procedure Name Priority Date/Time Associated Diagnosis Comments ENDOTRACHEAL TUBE NOTE Routine 02/12/2023 9:35 AM CLIENT EXPERIENCE ADMINISTRATOR documented in this encounter Results * ETT LINE PERFORMABLE (02/12/2023 9:35 AM CLIENT EXPERIENCE ADMINISTRATOR) Narrative Sampson Urrutia DO - 02/12/2023 9:35 AM CLIENT EXPERIENCE ADMINISTRATOR Sampson Urrutia DO ? 02/12/2023 ??9:36 AM Endotracheal Tube Placement: ? Patient Location: OR. Intubation Event Date/Time: ??02/12/2023 9:19 AM Procedure: intubation ([id number]). Procedure Section: ?? Sedation: under general anesthesia. Indications for Airway Management: ??anesthesia Procedure pretreatments used? ??No Induction: standard IV Patient Position: ??supine and sniffing Mask Ventilation: easy with oral airway. Blade Type: Aron Blade Size: 3 Laryngoscopy View: grade 2 (partial cords) Intubation Adjuncts: stylet Tube: endotracheal tube Placement: oral Tube type: cuff - inflated Tube Size (MM): 7 Measured From: lips Cuff volume (mL): ??8 Cuff Inflated With: air Number of Attempts: 1. Placement Verified By: direct visualization, bilateral breath sounds, chest auscultation and CO2 monitor Tube secured with: ??adhesive tape. Dentition unchanged? ??Yes Difficult Airway? ??No. Procedure Start Time: 02/12/2023 9:19 AM. Staff Section ? Anesthesia Provider: Sampson Urrutia, DO, Performed the procedure ? Provider #1: Morgan Wesley MD. Morgan Wesley MD GENERAL ANESTHESI A ORDERABLES documented in this encounter Visit Diagnoses Not on filedocumented in this encounter Administered Medications Inactive Administered Medications - up to 3 most recent administrations Medication Order MAR Action Action Date Dose Rate Site ceFAZolin (Ancef) 2,000 mg in 50 mL IVPB Intravenous, PRN, Starting on Fri02/12/23 at 0931, Until Fri02/12/23 at 1040, Anesthesia Intra-op $ Given 02/12/2023 9:31 AM CLIENT EXPERIENCE ADMINISTRATOR 2 g dexAMETHasone Sod Phosphate PF injection Intravenous, PRN, Starting on Fri02/12/23 at 0938, Until Fri02/12/23 at 1040, Anesthesia Intra-op $ Given 02/12/2023 9:38 AM CLIENT EXPERIENCE ADMINISTRATOR 10 mg fentaNYL (PF) (Sublimaze) injection Intravenous, PRN, Starting on Fri02/12/23 at 0913, Until Fri02/12/23 at 1040, Anesthesia Intra-op $ Given 02/12/2023 10:38 AM CLIENT EXPERIENCE ADMINISTRATOR 50 mcg $ Given 02/12/2023 9:13 AM CLIENT EXPERIENCE ADMINISTRATOR 50 mcg lidocaine (Xylocaine) 4 % solution Topical, PRN, Starting on Fri02/12/23 at 0915, Until Fri02/12/23 at 1040, Anesthesia Intra-op $ Given 02/12/2023 9:15 AM CLIENT EXPERIENCE ADMINISTRATOR 4 mg lidocaine HCl (PF) (Xylocaine MPF) 2 % injection Intravenous, PRN, Starting on Fri02/12/23 at 0913, Until Fri02/12/23 at 1040, Anesthesia Intra-op $ Given 02/12/2023 9:13 AM CLIENT EXPERIENCE ADMINISTRATOR 100 mg midazolam (Versed) injection Intravenous, PRN, Starting on Fri02/12/23 at 0905, Until Fri02/12/23 at 1040, Anesthesia Intra-op $ Given 02/12/2023 9:05 AM CLIENT EXPERIENCE ADMINISTRATOR 2 mg neostigmine (Prostigmin/Bloxiverz) injection Intravenous, PRN, Starting on Fri02/12/23 at 1022, Until Fri02/12/23 at 1049, Anesthesia Intra-op $ Given 02/12/2023 10:22 AM CLIENT EXPERIENCE ADMINISTRATOR 4 mg propofol (Diprivan) injection Intravenous, PRN, Starting on Fri02/12/23 at 0913, Until Fri02/12/23 at 1040, Anesthesia Intra-op $ Given 02/12/2023 9:13 AM CLIENT EXPERIENCE ADMINISTRATOR 160 mg rocuronium (Zemuron) injection Intravenous, PRN, Starting on Fri02/12/23 at 0914, Until Fri02/12/23 at 1040, Anesthesia Intra-op $ Given 02/12/2023 9:14 AM CLIENT EXPERIENCE ADMINISTRATOR 70 mg documented in this encounter Care Teams Parking Control Officer Relationship Specialty Start Date End Date Wilmer Carnes MD [address] [place] [address] PCP - General Family Medicine 01/16/21 documented as of this encounter
--- OUTSIDE RECORDS SUMMARY | 2024-02-12 03:26 | XMS_ITS | Encounter Summary ---
Author Organization [facility] Address [address] [facility] [place] [address] Care Team Providers Care Medical Office Manager Name Role Phone Wilmer Carnes MD Primary Care Provider Reason for Visit * Reason Onset Date Comments Follow-up 02/14/[address] surgery Encounter Details Date Type Department Care Team (Late st Contact Info) Description 02/14/2023 Telephone [facility] - ENT [address] [place] [phone] Veronica Maravilla, RN Follow-up (Note for work after surgery) Social History Tobacco Use Types Packs/Day Years [...] No 02/12/2023 documented as of this encounter Miscellaneous Notes * Telephone Encounter - Veronica Maravilla, RN - 02/14/2023 8:08 AM CST Doing well after surgery, Ear is throbbing, Nose is tender but does not hurt. Asks for note for work, will fax today and mail pt a copy. Reviewed next appt 02/18/23, suggested clarify at upcoming appointment when to return to work at job at [employer]. Pt acknowledges understanding. ICAL TRAINER documented in this encounter Plan of Treatment Not on file documented as of this encounter Visit Diagnoses Not on filedocumented in this encounter Care Teams Medical Office Manager Relationship Specialty Start Date End Date Wilmer Carnes MD [address] [place] [address] PCP - General Family Medicine 01/16/21 documented as of this encounter
--- OUTSIDE RECORDS SUMMARY | 2024-02-12 03:26 | XMS_ITS | Encounter Summary ---
Author Organization [facility] Address [address] [place] [address] Care Team Providers Care Inspector Technician Name Role Phone Wilmer Carnes MD Primary Care Provider Reason for Visit * Reason Onset Date Comments Surgery Rescheduled 01/23/2023 Encounter Details Date Type Department Care Team (Late st Contact Info) Description 01/23/2023 Telephone [facility] - ENT [address] [place] [address] Magdalena Dowd Surgery Rescheduled Social History Tobacco Use Types Packs/Day Years [...] * Telephone Encounter - Magdalena Dowd - 01/23/2023 2:09 PM CST Called patient to discuss rescheduling surgery. 

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
--- OUTSIDE RECORDS SUMMARY | 2024-02-12 03:26 | XMS_ITS | Encounter Summary ---
Author Organization [facility] Health Address [address] [place] [address] Care Team Providers Care Electro Mechanical Technologist Name Role Phone Wilmer Carnes MD Primary Care Provider Reason for Visit * Reason Comments Nose Problem 1 post op Encounter Details Date Type Department Care Team (Late st Contact Info) Description 03/04/2023 2:15 PM PRODUCTION SPECIALIST Office Visit [facility] - ENT [address] [place] [address] [phone] Ellis Montano MD [address] [place] [address] [place] [address] Nasal valve collapse (Primary Dx); Hoarseness or changing voice Social History Tobacco Use Types Packs/Day Years [...] on file documented as of this encounter Last Filed Vital Signs Vital Sign Reading Time Taken Comments Blood Pressure 143/83 03/04/2023 2:33 PM PRODUCTION SPECIALIST Pulse 92 03/04/2023 2:33 PM PRODUCTION SPECIALIST Temperature - - Respiratory Rate - - Oxygen Saturation - - Inhaled Oxygen Concentration - - Weight 86.6 kg (191 lb) 03/04/2023 2:33 PM PRODUCTION SPECIALIST Height 160 cm (5' 3 ) 03/04/2023 2:33 PM PRODUCTION SPECIALIST Body Mass Index 33.83 03/04/2023 2:33 PM PRODUCTION SPECIALIST documented in this encounter Functional Status Functional Status Response [...] No 02/12/2023 documented as of this encounter Patient Instructions * Patient Instructions* Dee Pham - 03/04/2023 2:33 PM PRODUCTION SPECIALIST Thank you for visiting [facility] Otolaryngology - Head & Neck Surgery. We appreciate your confidence in allowing us to participate in your health care. You may receive a survey about your visit with us today. Making our patients happy isn???t just happy talk; it???s ourmission. Please tell us if we made the right impression on you- and how we can serve you better. Please SAVE the information below, it will assist you when it???s time for you to contact us. To MAKE - CHANGE - CANCEL an office appointment If you become ill, need to be seen before your next scheduled appointment, or need to cancel or reschedule an appointment, please call our office at [phone] Friday through Friday from 8:00 am to4:30 pm. You can also request a routine appointment through your [email or web address] account. Prescription Refills Contact your pharmacy to request all refills. The pharmacy will need to fax the request to us at . Please allow a minimum of 48-72 hours for your prescription to be completed. Medical Emergency / After Hours Contact Information If you have a medical emergency, please call 911 or go to the nearest emergency room. For urgent medical calls, which cannot wait until the office opens, please call the medical exchange at and ask the skip hoist operator to page the ENT physician camera person. *Caller ID blocking service will need to be turned off for your call to be returned. We also specialize in Hearing Aids, Allergy testing, swallowing disorders, voice problems, cancer diagnosis, and so much more. Visit our website at [email or web address] for information about our practice and an interactive health encyclopedia. UCTION SPECIALIST documented in this encounter Progress Notes * Ellis Montano MD - 03/04/2023 8:26 PM CST History of Present Illness: 47 year old who presents for postoperative visit. The patient underwent nasal valve repair with bilateral alar pham grafts using auricular cartilage on 02/12/23 for the diagnosis of nasal valve collapse Today the patient returns for post op appointment. She had seen Dr. Stearns in the immediate post op period for removal of left ear bolster. Her breathing is much improved. She returns today because 1-2days ago she had severe sore throat, difficulty swallowing due to the pain, voice changes. Her voice sounds more strained. She has no neck masses, no neck swelling. She is breathing fine. Review of Systems: ROS x 14 was performed and was negative except for : voice changes, throat tightness Past Medical History: Diagnosis Date ??? Anxiety ??? Asthma Dr. mcdaniels controls ??? COPD (chronic obstructive pulmonary disease) (CMS-HCC) ??? Delayed emergence from anesthesia ??? Diabetes (CMS-HCC) ??? Difficult intravenous access ??? Disorder of liver ??? Lumbar herniated disc ??? PTSD (post-traumatic stress disorder) ??? Sleep apnea bipap ??? Sleep apnea in adult PSH: has a past surgical history that includes adenoidectomy; back surgery; cholecystectomy; septoplasty(11/01/2022); and plastic surgery procedure (N/A, 02/12/2023). Current Outpatient Medications Medication Sig Dispense Refill ??? acetaminophen (Tylenol) 325 MG tablet Take 2 (two) tablets by mouth every 6 hours as needed forFever or Pain Maximum allowable Acetaminophen amount = 4 Grams (4000 mg) / 24 hours. 30 tablet 1 ??? albuterol HFA (PROVENTIL;VENTOLIN;PROAIR) 108 (90 Base) MCG/ACT inhaler Inhale 2 (two) puffs bymouth ??? Alcohol Swabs (B-D SINGLE USE SWABS REGULAR) USE TO CHECK BLOOD SUGAR 3 TO 4 TIMES A DAY ??? ALPRAZolam (Xanax) 0.5 MG tablet TAKE 1 ORAL TABLET ONCE A DAY FOR ANXIETY ONSET ??? ARIPiprazole (ABILIFY) 5 MG tablet 1 (one) tablet ??? B-D UF III MINI PEN NEEDLES 31G X 5 MM needle ??? Blood Glucose Monitoring Suppl (ONE TOUCH ULTRA 2) w/Device KIT USE WITH TEST STRIP FOUR TIMES DAILY DIRECTED ??? cyclobenzaprine (FLEXERIL) 10 MG tablet Take 1 (one) tablet by mouth ??? DULoxetine (CYMBALTA) 30 MG capsule Take 1 (one) capsule by mouth once daily ??? estradiol (Estrace) 2 MG tablet Take 1 (one) tablet by mouth once daily ??? fluticasone propionate (Flonase) 50 MCG/ACT nasal spray SHAKE LIQUID AND USE 2 SPRAYS IN EACH NOSTRIL DAILY ??? hydroxychloroquine (PLAQUENIL) 200 MG tablet Take 1 (one) tablet by mouth 2 times daily Reasons: Rheumatoid Arthritis 60 tablet 1 ??? ibuprofen (Motrin) 600 MG tablet Take 1 (one) tablet by mouth every 6 hours as needed for Pain 30 tablet 0 ??? Lancets (ONETOUCH DELICA PLUS 33G EXTRA FINE LANCET) TEST 3 TO 4 TIMES DAILY ??? medroxyPROGESTERone (Provera) 5 MG tablet ??? mupirocin (Bactroban) 2 % ointment ??? norethindrone (Aygestin) 5 MG tablet Take 1 (one) tablet by mouth once daily ??? [employer] Ultra test strip USE WITH METER FOUR TIMES DAILY TO CHECK BLOOD GLUCOSE ??? oxyCODONE, immediate release, (Roxicodone) 5 MG tablet Take 1 (one) tablet by mouth every 6 hours as needed for Pain 12 tablet 0 ??? Ozempic, 1 MG/DOSE, 4 MG/3ML pen INJECT 1 MG UNDER THE SKIN ONCE WEEKLY FOR THE NEXT 12 WEEKS ??? Progesterone 100 MG capsule Take 1 (one) capsule by mouth once daily ??? Respiratory Therapy Supplies (NEBULIZER) WILLI Use as directed ??? SUMAtriptan (Imitrex) 25 MG tablet TAKE 1 TABLET BY MOUTH EVERY 24 HOURS AT ONSET OF MIGRAINE NEEDED No current facility-administered medications for this visit. Allergies Risperidone, Parada, and Iodine Social History Tobacco Use ??? Smoking status: Former Years: 26 Types: Cigarettes Quit date: 07/11/2010 Years since quittin.6 ??? Smokeless tobacco: Never Vaping Use ??? Vaping Use: Never used Substance Use Topics ??? Alcohol use: Yes Comment: occasionally ??? Drug use: No Family History Problem Relation Name Age of Onset ??? Arthritis - Rheumatoid Maternal Grandmother Physical Exam: Gen: awake, alert, NAD Nasal wound: clean, dry, intact, no drainage. Small suture abscess in the right marginal incision, resolved nasal valve collapse, minimal swelling, no bleeding, nasal cavities clear Left ear wound: clean, dry, intact, no drainage. Incision healed well Neck: no masses, normal range of motion Voice: strained and breathy MusculoSkeletal: moves all extremities well CV/Pulm: Breathing comfortably on room air. Extremities warm to palpation. Procedure- Flexible nasolaryngoscopy Due to the need to have clear and detailed visualization of the nasopharynx, oropharynx, hypopharynx, and larynx, a flexible endoscopy was indicated. The procedure and alternatives were explained to the patient and verbal consent was obtained. The patient's nasal cavity was anesthetized with a mixture of topical lidocaine and oxymetazoline. A flexible laryngoscope was advanced through the right nasal cavity. The nasal cavity contained no masses. Mucus membranes moist. There were no masses in the nasopharynx. The tongue base was normal. The true vocal cords were visualized and mobile bilaterally. There were no masses or mucosal lesions in the hypopharynx. 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 Assessment and Plan: The patient is a 47 year old female who presents today for a post operative visit. The patient is s/p nasal valve repair with bilateral alar pham grafts using auricular cartilage on 02/12/23. Her wounds are healed well and her breathing is much improved. She returns today dueto neck tightness, strained voice. We discussed her endoscopic exam findings, showing there is supraglottic hyperfunction with muscle tension dysphonia and otherwise normal neck and larynx exam. We discussed this can happen after general anesthesia with oral intubation. We discussed the planned treatment option of follow up scope exam and voice therapy. No nose blowing 2 more weeks. All of the patient's questions were answered to the best of my ability. F/u with Dr. Antunez and PRINCIPAL MECHANICAL ENGINEER within 1-2 weeks Follow up in 3 months with me UCTION SPECIALIST documented in this encounter Procedure Notes * Ellis Montano MD - 03/04/2023 8:29 PM CSTAssociated Order(s): PROC ENDOSCOPY-LARYNX Procedure(s): UT LARYNGOSCOPY,FLEX FIBER,DIAGNOSTIC Pre-Procedure Diagnose(s): Hoarseness or changing voice Procedure- Flexible nasolaryngoscopy Due to the need to have clear and detailed visualization of the nasopharynx, oropharynx, hypopharynx, and larynx, a flexible endoscopy was indicated. The procedure and alternatives were explained to the patient and verbal consent was obtained. The patient's nasal cavity was anesthetized with a mixture of topical lidocaine and oxymetazoline. A flexible laryngoscope was advanced through the right nasal cavity. The nasal cavity contained no masses. Mucus membranes moist. There were no masses in the nasopharynx. The tongue base was normal. The true vocal cords were visualized and mobile bilaterally. There were no masses or mucosal lesions in the hypopharynx. 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 UCTION SPECIALIST documented in this encounter Plan of Treatment Not on file documented as of this encounter Procedures Procedure Name Priority Date/Time Associated Diagnosis Comments UT LARYNGOSCOPY,FLEX FIBER,DIAGNOSTIC Routine 03/04/2023 8:29 PM PRODUCTION SPECIALIST Hoarseness or changing voice documented in this encounter Results * UT LARYNGOSCOPY,FLEX FIBER,DIAGNOSTIC (03/04/2023 8:29 PM PRODUCTION SPECIALIST) Narrative Ellis Montano MD - 03/04/2023 8:29 PM PRODUCTION SPECIALIST Ellis Montano MD ? 03/04/2023 ??8:33 PM Procedure- Flexible nasolaryngoscopy Due to the need to have clear and detailed visualization of the nasopharynx, oropharynx, hypopharynx, and larynx, a flexible endoscopy was indicated. The procedure and alternatives were explained to the patient and verbal consent was obtained. The patient's nasal cavity was anesthetized with a mixture of topical lidocaine and oxymetazoline. A flexible laryngoscope was advanced through the right nasal cavity. The nasal cavity contained no masses. Mucus membranes moist. There were no masses in the nasopharynx. The tongue base was normal. The true vocal cords were visualized and mobile bilaterally. There were no masses or mucosal lesions in the hypopharynx. 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 Ellis Montano MD PROCEDURE/MINOR SURG ICAL ORDERABLES documented in this encounter Visit Diagnoses Diagnosis Nasal valve collapse- Primary Other diseases of nasal cavity and sinuses Hoarseness or changing voice Other voice and resonance disorders documented in this encounter Care Teams Electro Mechanical Technologist Relationship Specialty Start Date End Date Wilmer Carnes MD [address] [place] [address] PCP - General Family Medicine 01/16/21 documented as of this encounter
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
--- OUTSIDE RECORDS SUMMARY | 2024-02-12 03:26 | XMS_ITS | Referral Summary ---
Author Organization [facility] [employer] Address [address] [place] [address] Care Team Providers Care Broadband Installer Name Role Phone Wlimer Carnes MD Primary Care Provider Source Comments [facility] [employer],non-owned Affiliates and Associated Physician Practices is amultiple site organization consisting of ambulatory clinics and hospital sitesin [place], [place], [place] and [place]. This disclosure is being madepursuant to the Care Everywhere program and may not contain all information available regarding this patient. Last updated 17.[facility] [employer] Allergies Active Allergy Reactions Criticality Noted Date Comments Parada Anaphylaxis High 08/11/2010 Iodine Rash Low 03/17/2010 Risperidone Other Low 01/16/2021 Reaction: OTHER REACTION Medications * Be aware that medications may not be up to date on this document. Alwaysverify current medications with the patient. Medication Sig Dispensed Refills Start Date End Date Status Respiratory Therapy Supplies (NEBULIZER) WILLI Use as directed 08/24/2018 Act zach DULoxetine (CYMBALTA) 30 MG capsule Take 1 (one) capsule by mouth once daily 08/10/2016 Active cyclobenzaprine (FLEXERIL) 10 MG tablet Take 1 (one) tablet by mouth 08/08/2016 Active ARIPiprazole (ABILIFY) 5 MG tablet 1 (one) tablet 09/30/2013 Active albuterol HFA (PROVENTIL;VENTOLI N;PROAIR) 108 (90 Base) MCG/ACT inhaler Inhale 2 (two) puffs by mouth Active hydroxychloroquine (PLAQUENIL) 200 MG tabletIndications: Rheumatoid Arthritis Take 1 (one) tablet by mouth 2 times daily Reasons: Rheumatoid Arthritis 60 tablet 1 01/16/2021 Active SUMAtriptan (Imitrex) 25 MG tablet TAKE 1 TABLET BY MOUTH EVERY 24 HOURS AT ONSET OF MIGRAINE NEEDED 07/04/2022 Active Ozempic, 1 MG/DOSE, 4 MG/3ML pen INJECT 1 MG UNDER THE SKIN ONCE WEEKLY FOR THE NEXT 12 WEEKS 10/29/2022 Active Progesterone 100 MG capsule Take 1 (one) capsule by mouth once daily 11/12/2022 Active mupirocin (Bactroban) 2 % ointment 10/31/2022 Active Lancets (Bill.ForwardTOUCH DELICA PLUS 33G EXTRA FINE LANCET) TEST 3 TO 4 TIMES DAILY 08/05/2022 Active B-D UF III MINI PEN NEEDLES 31G X 5 MM needle 02/07/2021 Active OneTouch Ultra test strip USE WITH METER FOUR TIMES DAILY TO CHECK BLOOD GLUCOSE 08/05/2022 Active fluticasone propionate (Flonase) 50 MCG/ACT nasal spray SHAKE LIQUID AND USE 2 SPRAYS IN EACH NOSTRIL DAILY 03/28/2022 Active Alcohol Swabs (B-D SINGLE USE SWABS REGULAR) USE TO CHECK BLOOD SUGAR 3 TO 4 TIMES A DAY 08/01/2022 Active ALPRAZolam (Xanax) 0.5 MG tablet TAKE 1 ORAL TABLET ONCE A DAY FOR ANXIETY ONSET 07/26/2022 Active Blood Glucose Monitoring Suppl (ONE TOUCH ULTRA 2) w/Device KIT USE WITH TEST STRIP FOUR TIMES DAILY DIRECTED 08/05/2022 Active estradiol (Estrace) 2 MG tablet Take 1 (one) tablet by mouth once daily Active acetaminophen (Tylenol) 325 MG tablet Take 2 (two) tablets by mouth every 6 hours as needed for Fever or Pain Maximum allowable Acetaminophen amount = 4 Grams (4000 mg) / 24 hours. 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 Strong family history for rheumatoid arthritis. Will plan to repeat CRP and sedimentation rate and also check rheumatoid factor and anti CCP antibody again. Baseline bilateral hand and foot radiographs although doubt probable early erosive arthritis changes will be noted. Would refrain from the use of systemic steroid medication due to her diabetes mellitus and potential for adverse and undesirable weight gain side effects. Will discontinue ckbn-vli-rfbwlty ibuprofen in place her on prescription straight naproxen 500 mg twice daily to be taken with meals. Will initiate a DMARD treatment with hydroxychloroquine 200 mg twice daily and at this point will defer initiating methotrexate given her abnormal liver function serum enzyme test results and need for further workup especially in consideration of possible autoimmune liver disease. I have suggested clinical reassessment in 1 month. Elevated liver enzymes 01/16/2021 Assessment & Plan (01/16/2021 3:18 PM CAPITAL MARKETS SPECIALIST): Lab significant for serum AST elevated at 70 at approximately 2 times upper limit of normal and ALT elevated at 92 at approximately 2.5 times upper limit of normal. Laboratory testing collected 11/10/2020 indicated presence of a positive ART at a titer >= 1-1280 with a nuclear dot pattern (multiple nuclear dot (MND), or pseudocentromere, anti-nuclear antibody (ART) is an uncommon pattern associated primarily with primary biliary cirrhosis (PBC) and anti-mitochondrial antibody (AMA). ART positive 01/16/2021 Overview (01/16/2021): Laboratory testing collected 11/10/2020 indicated presence of a positive ART at a titer >= 1-1280 with a nuclear dot pattern (multiple nuclear dot (MND), or pseudocentromere, anti-nuclear antibody (ART) is an uncommon pattern associated primarily with primary biliary cirrhosis (PBC) and anti-mitochondrial antibody (AMA). Her lab has also been significant for serum AST elevated at 70 at approximately 2 times upper limit of normal and ALT elevated at 92 at approximately 2.5 times upper limit of normal with consideration for possible autoimmune liver disease. Assessment & Plan (01/16/2021 3:17 PM CAPITAL MARKETS SPECIALIST): Previous history suggesting non alcoholic fatty liver disease as related to obesity and diabetes mellitus. Laboratory testing collected 11/10/2020 indicated presence of a positive ART at a titer >= 1-1280 with a nuclear dot pattern (multiple nuclear dot (MND), or pseudocentromere, anti-nuclear antibody (ART) is an uncommon pattern associated primarily with primary biliary cirrhosis (PBC) and anti-mitochondrial antibody (AMA). Her lab has also been significant for serum AST elevated at 70 at approximately 2 times upper limit of normal and ALT elevated at 92 at approximately 2.5 times upper limit of normal with consideration for possible autoimmune liver disease. Resolved Problems Problem Noted Date Diagnosed Date [...] Comments Blood Pressure 143/83 03/04/2023 2:33 PM CAPITAL MARKETS SPECIALIST Pulse 92 03/04/2023 2:33 PM CAPITAL MARKETS SPECIALIST Temperature 36.6 ??C (97.8 ??F) 02/12/2023 11:[address] Respiratory Rate 16 02/12/2023 11:39 AM CAPITAL MARKETS SPECIALIST Oxygen Saturation 95% 02/12/2023 12:45 PM CAPITAL MARKETS SPECIALIST Inhaled Oxygen Concentration - - Weight 86.6 kg (191 lb) 03/04/2023 2:33 PM CAPITAL MARKETS SPECIALIST Height 160 cm (5' 3 ) 03/04/2023 2:33 PM CAPITAL MARKETS SPECIALIST Body Mass Index 33.83 03/04/2023 2:33 PM CAPITAL MARKETS SPECIALIST Functional Status Functional Status Response Date of [...] person have difficulty concentrating/remembering/making decisions? No 02/12/2023 Plan of Treatment Not on file Procedures Procedure Name Priority Date/Time Associated Diagnosis Comments GLUCOSE - POINT OF CARE Routine 02/12/2023 7:44 AM CAPITAL MARKETS SPECIALIST from Last 3 Months or Most Recently Relevant to Health Maintenance Results * GLUCOSE - POINT OF CARE (02/12/2023 7:44 AM CAPITAL MARKETS SPECIALIST) Pathologist [facility] Glucose WB/POC 74 70 - 115 mg/dL 02/12/2023 7:47 AM CAPITAL MARKETS SPECIALIST [facility] Specimen Type Venous 02/12/2023 7:47 AM CAPITAL MARKETS SPECIALIST [facility] Blood BLOOD SPECIMEN / Unknown 02/12/2023 7:44 AM CAPITAL MARKETS SPECIALIST 02/12/2023 7:47 AM CAPITAL MARKETS SPECIALIST Ellis Montano MD LAB - POINT OF CARE ORDERABLES Performing Organization Address [facility]/State/ZIP Co de Phone Number [facility] [address] [place] [id number], [facility] [phone] from Last 3 Months or Most Recently Relevant to Health Maintenance Care Teams Broadband Installer Relationship Specialty Start Date End Date Wilmer Carnes MD [address] [place] [address] PCP - General Family Medicine 01/16/21
--- OUTSIDE RECORDS SUMMARY | 2024-02-12 03:26 | XMS_ITS | Encounter Summary ---
Author Organization [facility] Address [address] [place] [address] Care Team Providers Care Sand Plant Attendant Name Role Phone Wilmer Carnes MD Primary Care Provider Reason for Visit * Reason Onset Date Comments Med Question 03/08/2021 Encounter Details Date Type Department Care Team (Late st Contact Info) Description 03/08/2021 Telephone [facility] - Rheumatology [address] [facility], [address] [place] [address] Walter Schaefer DO [address] [facility] [address] [place] [address] Med Question Social History Tobacco Use Types Packs/Day [...] Miscellaneous Notes * Telephone Encounter - Yaneth aGytan LPN - 03/08/2021 2:09 PM TAILOR GARMENT FITTER Called and spoke to patient re Dr Schaefer's instructions, continue with hydroxychlorquine medication but hold naprosyn until well from Covid infection due to possibility of being dehydrated. Patient states she understands and no further questions. OR GARMENT FITTER * Telephone Encounter - Walter Schaefer DO - 03/08/2021 1:32 PM CST She recently been diagnosed by me with a seronegative inflammatory arthritis. ??There is no indication that she would need to stop hydroxychloroquine however would probably hold further use of naproxen in view of an acute COVID infection just in case she becomes dehydrated and it potentially could increase the risk for developing kidney insufficiency. OR GARMENT FITTER * Telephone Encounter - Yaneth Gaytan LPN - 03/08/2021 1:18 PM TAILOR GARMENT FITTER Has covid, ill since Friday, any advice of medication taking/holding? She is under the care of her PCP. She takes naprosyn and hydroxychloroquine. Please advise OR GARMENT FITTER documented in this encounter Plan of Treatment Not on file documented as of this encounter Visit Diagnoses Not on filedocumented in this encounter Care Teams Sand Plant Attendant Relationship Specialty Start Date End Date Wilmer Carnes MD [address] [place], [place] [id number] PCP - General Family Medicine 01/16/21 documented as of this encounter
--- OUTSIDE RECORDS SUMMARY | 2024-02-12 03:26 | XMS_ITS | Encounter Summary ---
Author Organization [facility] Address [address] [place] [address] Care Team Providers Care Public Administration Professor Name Role Phone Wilmer Carnes MD Primary Care Provider Reason for Visit * Reason Comments Surgical Follow-up Encounter Details Date Type Department Care Team (Late st Contact Info) Description 02/18/2023 3:30 PM MASTER POLICE DETECTIVE Office Visit [facility] - ENT [address], [facility] [address] [place] [address] Pillo Stearns MD [address] [facility] [address] [place] [address] Obstruction of nasal valve (Primary Dx) Social History Tobacco Use Types Packs/Day Years [...] No 02/12/2023 documented as of this encounter Progress Notes * Pillo Stearns MD - 02/18/2023 3:36 PM CST Facial Plastic Surgery Post Operative Note Oumou Middleton Post-Op: 1 week after undergoing nasal valve repair with left conchal cartilage grafting . - Pain: 1 - Swelling: Yes - Infection: No - Other: left ear bolster removed, excellent healing. Few sutures clipped inranasally. - Instructed: clean and lubricate QID, saline spray used liberally. - A/P: Doing well. Released to return to work - FU in [address] Charmaine Stearns MD ER POLICE DETECTIVE documented in this encounter Plan of Treatment Not on file documented as of this encounter Visit Diagnoses Diagnosis Obstruction of nasal valve- Primary Other diseases of nasal cavity and sinuses documented in this encounter Care Teams Public Administration Professor Relationship Specialty Start Date End Date Wilmer Carnes MD [address] [place] [address] PCP - General Family Medicine 01/16/21 documented as of this encounter
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
--- OUTSIDE RECORDS SUMMARY | 2024-02-12 03:26 | XMS_ITS | Encounter Summary ---
Author Organization [facility] Address [address] [place] [address] Care Team Providers Care Maintenance Foreman Name Role Phone Wilmer Carnes MD Primary Care Provider [phone] Encounter Details Date Type Department Care Team (Latest Contact Info) Description 02/12/2023 Travel Social History Tobacco Use Types Packs/Day [...] on filedocumented in this encounter Care Teams Maintenance Foreman Relationship Specialty Start Date End Date Wilmer Carnes MD [address] [place] [address] PCP - General Family Medicine 01/16/21 documented as of this encounter
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
--- OUTSIDE RECORDS SUMMARY | 2024-02-12 03:26 | XMS_ITS | Encounter Summary ---
Author Organization [facility] Address [address] [place] [address] Care Team Providers Care Workforce Consultant Name Role Phone Wilmer Carnes MD Primary Care Provider Reason for Visit * Auth/Cert (Routine) Specialty Diagnoses / Procedures Referred By Contac t Referred To Contact Diagnoses Nasal valve collapse NASAL VALVE COLLAPSE Procedures NV REPAIR NASAL CAVITY STENOSIS RECONSTRUCTION/REPAIR NASAL Referral ID Status Reason Start Date Expiration Date Visits Re quested Visits Authorized [id number] 1 1 Encounter Details Date Type Department Care Team (Late st Contact Info) Description 02/12/2023 9:15 AM FIFTH HAND - 02/12/2023 11:20 AM FIFTH HAND Surgery [facility] [address] [place] [address] Ellis Montano MD [address] [place] [address] NASAL VALVE REPAIR, LEFT AURICULAR CARTILAGE GRAFT Surgery Details Date/Time Status Location OR Service Patient Class Case Class Case Type Trauma Case? 02/12/2023 9:15 AM Posted [facility] OR OR 04 ENT Surgery Day Care Elective > 5 days Panel 1 Procedure LRB Anes Op Region Wound Class Comments NASAL VALVE REPAIR, LEFT AUR ICULAR CARTILAGE GRAFT N/A General Nose Clean Contaminated Surgeon Surgeon Role Service Panel Ellis Montano MD Primary ENT 1 Antonio Frausto MD Resident - Assisting ENT 1 Case Notes Scheduling reviewed 02/10cp Special Needs SUPINE, DS 02/06 documented in this encounter Social History Tobacco [...] Sign Reading Time Taken Comments Blood Pressure 112/63 02/12/2023 11:15 AM FIFTH HAND Pulse 73 02/12/2023 11:15 AM FIFTH HAND Temperature 36.7 ??C (98.1 ??F) 02/12/2023 10:[address] Respiratory Rate 12 02/12/2023 11:15 AM FIFTH HAND Oxygen Saturation 93% 02/12/2023 11:15 AM FIFTH HAND Inhaled Oxygen Concentration - - Weight 85.4 kg (188 lb 4.8 oz) 02/12/2023 7:32 A M FIFTH HAND Height 160 cm (5' 3 ) 02/12/2023 7:32 AM FIFTH HAND Body Mass Index 33.36 02/12/2023 7:32 AM FIFTH HAND documented in this encounter Functional Status Functional [...] No 02/12/2023 documented as of this encounter Medications at [...] needed for Pain 30 tablet 02/12/2023 Lancets (TransfercarTOUCH DELICA PLUS 33G EXTRA FINE LANCET) TEST 3 TO 4 TIMES DAILY 08/05/2022 mupirocin (Bactroban) 2 % ointment 10/31/2022 norethindrone (Aygestin) 5 MG tablet Take 1 (one) tablet by mouth once daily 02/08/2023 [employer] Ultra test strip USE WITH METER FOUR [...] for 5 days 10 capsule 02/12/2023 02/17/2023 documented as of this encounter H&P Notes * Antonio Frausto MD - 02/12/2023 8:52 AM CST Otolaryngology Pre-Procedure History and Physical DATE: 02/12/2023 TIME: 8:52 AM PROCEDURE: 1. Open nasal valve repair, auricular cartilage graft HISTORY OF PRESENT ILLNESS (HPI): Oumou Middleton is a 47 year old female with nasal obstruction and nasal valve collapse s/p prior septoplasty. She presents for planned procedures, and there have been no significant interval changes in health since last visit. PAST MEDICAL HISTORY (PMH): Major Medical Past Medical History: Diagnosis Date ??? Anxiety ??? Asthma Dr. mcdaniels controls ??? COPD (chronic obstructive pulmonary disease) (CMS-HCC) ??? Delayed emergence from anesthesia ??? Diabetes (CMS-HCC) ??? Difficult intravenous access ??? Disorder of liver ??? Lumbar herniated disc ??? PTSD (post-traumatic stress disorder) ??? Sleep apnea bipap ??? Sleep apnea in adult Surgical Past Surgical History: Procedure Laterality Date ??? ADENOIDECTOMY ??? Back Surgery Frontal fusion ??? Cholecystectomy ??? Septoplasty 11/01/2022 Family Family History Problem Relation Name Age of Onset ??? Arthritis - Rheumatoid Maternal Grandmother Social History Tobacco Use ??? Smoking status: Former Years: 28 Types: Cigarettes Quit date: 07/11/2010 Years since quittin.6 ??? Smokeless tobacco: Never Substance Use Topics ??? Alcohol use: Yes Comment: occasionally MEDICATIONS Current Facility-Administered Medications Medication Dose Route Frequency Provider Last Rate Last Admin ??? insulin regular human (HumuLIN R; NovoLIN R) 100 UNIT/ML injection 0-6 Units 0-6 Units Intravenous Once Lakhani, Nutressa A, [employer] MEMBER-MAINTENANCE SHOP CLERK ??? lactated ringers infusion Intravenous pre-OP continuous Lakhani, Nutressa A, [employer] MEMBER-MAINTENANCE SHOP CLERK 20 mL/hr at 02/12/23 0751 New Bag at 02/12/23 0751 REVIEW OF SYSTEMS 11 point review of systems was obtained and is negative except for as noted in the HPI and per medical office technician notes PHYSICAL EXAM BP 130/78 Pulse 81 Temp 98 ??F (36.7 ??C) (Oral) Resp 12 Ht 1.6 m (5' 3 ) Wt 85.4 kg (188lb 4.8 oz) SpO2 97% General: NAD HEENT: Eyes: EOMI Ears: Normal landmarks, atraumatic Nose: Septum midline, moist nasal mucosa Oral Cavity, Oropharynx: moist mucosa, uvula midline Laryngopharynx by mirror: deferred Neck: No appreciable LAD Cardiovascular: Warm and well perfused, regular rate and rhythm Respiratory: unlabored breathing bilaterally Neuro/Psych: CN II-XII intact bilaterally ALLERGIES 1. Risperidone 2. Parada 3. iodine PLAN OF CARE - To the OR for Open nasal valve repair, auricular cartilage graft. - Risks, benefits, and alternatives discussed with patient and they elect to proceed. - Consent to be obtained. Resident signature: Daren Frausto MD Otolaryngology Head & Neck Surgery PGY-5 02/12/2023 H HAND Associated attestation - Ellis Montano MD - 02/12/2023 8:57 AM FIFTH HAND Also consented for possible bilateral inferior turbinate reduction documented in this encounter Nursing Notes * Hortencia Thomas RN - 02/12/2023 1:15 PM CST Patient cam back from PACU at 11:35am and had intranasal sutures and left ear bolster. All intact. H HAND documented in this encounter OR Notes * Operative - Ellis Montano MD - 02/12/2023 9:36 AM CST OPERATIVE REPORT NAME: Oumou Middleton : 1975 CSN: [id number] DATE OF OPERATION: 02/12/2023 ATTENDING SURGEON: Ellis Montano MD Pre-Op Diagnosis: -Nasal obstruction -Nasal valve collapse Post-Op Diagnosis: Same Procedure: -Nasal valve repair (CPT 79716) -Auricular cartilage graft (CPT 42586) Operative findings: -Bilateral alar pham grafts placed through marginal incisions, cartilage harvested from left auricular hoda [employer] Daren Frausto MD Indications for procedure: Oumou Middleton is a 47 year old female with a history of septoplasty, turbinate reduction, right anterior ethmoidectomy Sept [address] Gustavo Esparza. I have personally discussed her surgery with Dr. Esparza. She was referred to me because though her septal deviation was fixed, she had external nasal valve collapse as a great contributor to her nasal obstruction. She was evaluated in the officeon 12/12/22 and surgical treatment was discussed in detail. She presents on this date for the scheduled procedure. Details of Procedure: After the patient was identified in the preoperative holding area, She was transported to the operating room. Upon arrival in the OR, the patient and intended procedure were reviewed. She was placed in a supine position on the table. The patient was intubated by Anesthesia and the table was turned 90-180 degrees. The eyes were protected. The patient was examined. All planned incisions were marked. Lidocaine 1% with 1:100,000 epinephrine was injected into the incision sites. The patient was prepped and draped in the usual sterile manner. First we performed the auricular cartilage graft. An incision was made just inside of the rim of the left hoda through the skin. The cartilage was exposed and the anterior skin was elevated off of the hoda cavum and hoda symba cartilage. The cartilage was cut sharply just inside the conchal rim. The posterior skin was preserved, and elevated off the back side of the cartilage. The conchal cartilage was removed en bloc with no breaks. It was placed on the back table and carved into 2 largefusiform shaped pieces with the ideal convexity for use as alar pham grafts. The skin incision onthe ear was closed with 5-0 fast. A large piece of xeroform was cut into 2 and these pieces were used to bolster the ear. The xeroform was secured with 4-0 prolene. We proceeded with the open nasal valve repair. A marginal incision was made in the left nare at thecaudal border of the lateral sebastián of the lower lateral cartilage. This was then opened with scissors, and the dissection was taken over the lower lateral cartilage to create a pocket. The location ofthe maximal supra-alar collapse, which was identified preoperatively, was elevated off of the underlying nasal soft tissue. The dissection pocket was overlying the medial end of the [place] lower lateral cartilage, and extended laterally to the bony piriform rim. The carved auricular cartilage graftwas placed into this pocket, and confirmed to be sitting along the left ala, from piriform rim to the domal cartilage medially. The exact same procedure was done on the right side. The marginal incisions were closed with 5-0 chromic. An intranasal exam was performed, and the patient was found to have a straight septum, healed mucosa, with normal sized bilateral inferior turbinates. Nasal cavities clear. Estimated Blood Loss: minimal Complications: None apparent. Condition: Stable I was present and performed all critical portions of the surgery. Ellis Montano MD Retention Manager Facial Plastic and Reconstructive Surgery Otolaryngology- Head and Neck Surgery H HAND documented in this encounter Plan of Treatment Not on file documented as of this encounter Procedures Procedure Name Priority Date/Time Associated Diagnosis Comments GLUCOSE - POINT OF CARE Routine 02/12/2023 11:45 AM FIFTH HAND NV REPAIR NASAL CAVITY STENOSIS 02/12/2023 9:36 AM FIFTH HAND Nasal valve collapse Case Notes Scheduling reviewed 02/10cp Special Needs SUPINE, DS 02/06 HCG URINE QUALITATIVE - POCT (IP) INTERFACED Routine 02/12/2023 7:46 AM FIFTH HAND GLUCOSE - POINT OF CARE Routine 02/12/2023 7:44 AM FIFTH HAND HCG URINE QUAL POCT NOTIFICATION STAT 02/12/2023 7:41 AM FIFTH HAND Pre-op testing documented in this encounter Results * GLUCOSE - POINT OF CARE (02/12/2023 11:45 AM FIFTH HAND) Glucose WB/POC 92 70 - 115 mg/dL 02/12/2023 11:50 AM FIFTH HAND [facility] Specimen Type Venous 02/12/2023 11:50 AM FIFTH HAND [facility] Blood BLOOD SPECIMEN / Unknown 02/12/2023 11:45 AM FIFTH HAND 02/12/2023 11:50 AM FIFTH HAND Ellis Montano MD LAB - POINT OF CARE ORDERABLES [address] [address], [place] [phone] * HCG URINE QUALITATIVE - POCT (IP) INTERFACED (02/12/2023 7:46 AM FIFTH HAND) HCG Qual Urine Negative Negative 02/12/2023 7:53 AM FIFTH HAND [facility] Urine URINE / Unknown 02/12/2023 7 :46 AM FIFTH HAND 02/12/2023 7:53 AM FIFTH HAND Ellis Montano MD LAB - POINT OF CARE ORDERABLES Performing Organization Address City/[facility]/ZIP Co de Phone Number [address] [address], [place] [phone] * GLUCOSE - POINT OF CARE (02/12/2023 7:44 AM FIFTH HAND) Glucose WB/POC 74 70 - 115 mg/dL 02/12/2023 7:47 AM FIFTH HAND [facility] Specimen Type Venous 02/12/2023 7:47 AM FIFTH HAND [facility] Blood BLOOD SPECIMEN / Unknown 02/12/2023 7:44 AM FIFTH HAND 02/12/2023 7:47 AM FIFTH HAND Ellis Montano MD LAB - POINT OF CARE ORDERABLES Performing Organization Address City/[facility]/ZIP Co de Phone Number [address] [address], [place] [phone] * HCG URINE QUAL POCT NOTIFICATION (02/12/2023 7:41 AM FIFTH HAND) Comment Notification Label Only - See Separate Report 02/12/2023 9:01 AM [facility] Urine URINE / Unknown 02/12/2023 7 :41 AM FIFTH HAND 02/12/2023 7:41 AM FIFTH HAND Ellis Montano MD LAB - URINALYSIS ORD ERABLES [address] [address], [facility] [phone] documented in this encounter Visit Diagnoses Diagnosis Pre-op testing- Primary Preoperative examination, unspecified Nasal obstruction Other diseases of nasal cavity and sinuses Nasal valve collapse Other diseases of nasal cavity and sinuses documented in this encounter Administered Medications Inactive Administered Medications - up to 3 most recent administrations Medication Order MAR Action Action Date Dose Rate Site acetaminophen (Tylenol) tablet 650 mg 650 mg, Oral, PRE-OP ONCE, 1 dose, On Fri02/12/23 at 0730, Patient preference for lesser PRN pain meds may be honored when the patient requests a less strong medication, a lower dose, or a less intrusive route of administration when the lesser drug, dose and route have been ordered for the patient. This patient request must be documented in the MAR., Pre-op $ Given 02/12/2023 7:52 AM FIFTH HAND 650 mg albuterol-ipratropium (Duo-Neb) nebulizer solution 3 mL 3 mL, Inhalation, POST-OP MULTIPLE, Starting on Fri02/12/23 at 1032, Until Fri02/12/23 at 1452, For wheezing. Notify anesthesia immediately., PACU diphenhydrAMINE (Benadryl) injection 25 mg 25 mg, Intravenous, ONCE PRN, Nausea/Vomiting, 1 dose, Starting on Fri02/12/23 at 1032, Until Fri02/12/23 at 1452, Second choice, use if first choice was ineffective., PACU fentaNYL (PF) (Sublimaze) injection 25 mcg 25 mcg, Intravenous, EVERY 10 MIN PRN, Mild Pain, 4 doses, Starting on Fri02/12/23 at 1032, Until Fri02/12/23 at 1452, Maximum total of 4 doses. If patient reaches max total dose, please consult anesthesiologist prior to further administration of pain meds. Hold pain meds if there are signs of hypoventilation. Patient preference for lesser PRN pain meds may be honored when the patient requests a less strong medication, a lower dose, or a less intrusive route of administration when the lesser drug, dose and route have been ordered for the patient. This patient request must be documented in the MAR., PACU fentaNYL (PF) (Sublimaze) injection 50 mcg 50 mcg, Intravenous, EVERY 10 MIN PRN, Moderate Pain, 4 doses, Starting on Fri02/12/23 at 1032, Until Fri02/12/23 at 1452, Maximum total of 4 doses. If patient reaches max total dose, please consult anesthesiologist prior to further administration of pain meds. Hold pain meds if there are signs of hypoventilation. Patient preference for lesser PRN pain meds may be honored when the patient requests a less strong medication, a lower dose, or a less intrusive route of administration when the lesser drug, dose and route have been ordered for the patient. This patient request must be documented in the MAR., PACU HYDROmorphone (Dilaudid) injection 0.5 mg 0.5 mg, Intravenous, EVERY 10 MIN PRN, Severe Pain, 4 doses, Starting on Fri02/12/23 at 1032, Until Fri02/12/23 at 1452, Maximum total of 4 doses If patient reaches max total dose, please consult anesthesiologist prior to further administration of pain meds. Hold pain meds if there are signs of hypoventilation. Patient preference for lesser PRN pain meds may be honored when the patient requests a less strong medication, a lower dose, or a less intrusive route of administration when the lesser drug, dose and route have been ordered for the patient. This patient request must be documented in the MAR., PACU labetalol (Normodyne; Trandate) injection 5 mg 5 mg, Intravenous, POST-OP MULTIPLE, 4 doses, Starting on Fri02/12/23 at 1032, Until Fri02/12/23 at 1452, IV given slowly over 1 minute up to 20 mg. Repeat every 10-15 minutes in 5 mg doses. Hold if heart rate is less than 60. Give for hypertension SBP greater than 180, DBP greater than 100., PACU lactated ringers infusion at 20 mL/hr, Intravenous, PRE-OP CONTINUOUS, Starting on Fri02/12/23 at 0730, Until Fri02/12/23 at 1452, Pre-op $ New Bag/Syringe 02/12/2023 7:51 AM FIFTH HAND 20 mL/hr lactated ringers infusion at 75 mL/hr, Intravenous, CONTINUOUS, Starting on Fri02/12/23 at 1045, Until Fri02/12/23 at 1452, PACU *Current Bag - New Order 02/12/2023 10:35 AM FIFTH HAND 75 mL/hr lidocaine 1% (Xylocaine) - EPINEPHrine 1:100,000 injection PRN, Starting on Fri02/12/23 at 0949, Until Fri02/12/23 at 1036, Intra-op $ Given 02/12/2023 9:49 AM FIFTH HAND 7 mL Operative Site metoclopramide (Reglan) injection 10 mg 10 mg, Intravenous, ONCE PRN, Nausea/Vomiting, 1 dose, Starting on Fri02/12/23 at 1032, Until Fri02/12/23 at 1452, Third choice, use if first and second choice was ineffective., PACU naloxone (Narcan) injection 0.04 mg 0.04 mg, Intravenous, POST-OP MULTIPLE, Starting on Fri02/12/23 at 1032, Until Fri02/12/23 at 1452, If respirations are less than 8 per minute and O2 sat is less than 90%, bag/mask patient and notify anesthesia immediately. If directed to administer naloxone, dilute 0.4mg in 9mL normal saline for dilution of 0.04mg/mL. Administer 1mL over 30 seconds while observing the patient response and titrating to effect. If no response, continue IV naloxone at the same rate up to a total of 0.8 mg of diluted naloxone., PACU prochlorperazine (Compazine) injection 10 mg 10 mg, Intravenous, ONCE PRN, Nausea/Vomiting, 1 dose, Starting on Fri02/12/23 at 1032, Until Fri02/12/23 at 1039, First choice, PACU $ Given 02/12/2023 10:39 AM FIFTH HAND 10 mg documented in this encounter Active and Recently Administered Medications Times are shown in FIFTH HAND. Scheduled Medication Order 02/10/2023 02/11/2023 02/12/2023 acetaminophen (Tylenol) tablet 650 mg (COMPLETED) 650 mg, Oral, PRE-OP ONCE, 1 dose, On Fri02/12/23 at 0730, Patient preference for lesser PRN pain meds may be honored when the patient requests a less strong medication, a lower dose, or a less intrusive route of administration when the lesser drug, dose and route have been ordered for the patient. This patient request must be documented in the MAR., Pre-op 0752 ($ Given - Prov ider: Hortencia Thomas RN - Comment: pre op) albuterol-ipratropium (Duo-Neb) nebulizer solution 3 mL 3 mL, Inhalation, POST-OP MULTIPLE, Starting on Fri02/12/23 at 1032, Until Fri02/12/23 at 1452, For wheezing. Notify anesthesia immediately., PACU insulin regular human (HumuLIN R; NovoLIN R) 100 UNIT/ML injection 0-6 Units 0-6 Units, Intravenous, ONCE, 1 dose, On Fri02/12/23 at 0730, POC Glucose Regular Insulin Dose 0 - 151 mg/dL = 0 units 151 - 180 mg/dL = 2 units 181 - 220 mg/dL = 3 units 221 - 260 mg/dL = 4 units 261 - 300 mg/dL = 5 units Above 300 mg/dL = 6 units . WASTE DISPOSAL INSTRUCTIONS: Black Bin Disposal required., Pre-op 0730 (Due) labetalol (Normodyne; Trandate) injection 5 mg 5 mg, Intravenous, POST-OP MULTIPLE, 4 doses, Starting on Fri02/12/23 at 1032, Until Fri02/12/23 at 1452, IV given slowly over 1 minute up to 20 mg. Repeat every 10-15 minutes in 5 mg doses. Hold if heart rate is less than 60. Give for hypertension SBP greater than 180, DBP greater than 100., PACU naloxone (Narcan) injection 0.04 mg 0.04 mg, Intravenous, POST-OP MULTIPLE, Starting on Fri02/12/23 at 1032, Until Fri02/12/23 at 1452, If respirations are less than 8 per minute and O2 sat is less than 90%, bag/mask patient and notify anesthesia immediately. If directed to administer naloxone, dilute 0.4mg in 9mL normal saline for dilution of 0.04mg/mL. Administer 1mL over 30 seconds while observing the patient response and titrating to effect. If no response, continue IV naloxone at the same rate up to a total of 0.8 mg of diluted naloxone., PACU Continuous Medication Order 02/10/2023 02/11/2023 02/12/2023 lactated ringers infusion at 20 mL/hr, Intravenous, PRE-OP CONTINUOUS, Starting on Fri02/12/23 at 0730, Until Fri02/12/23 at 1452, Pre-op 0751 ($ New Bag/Syri nge - Provider: Hortencia Thomas, ELVIE)1039 (Anesthesia Volume Adjustment - Provider: Kelsie Magana DO) lactated ringers infusion at 75 mL/hr, Intravenous, CONTINUOUS, Starting on Fri02/12/23 at 1045, Until Fri02/12/23 at 1452, PACU 1035 (*Current Bag - New Order - Provider: Gloria Edwards RN) PRN Medication Order 02/10/2023 02/11/2023 02/12/2023 diphenhydrAMINE (Benadryl) injection 25 mg 25 mg, Intravenous, ONCE PRN, Nausea/Vomiting, 1 dose, Starting on Fri02/12/23 at 1032, Until Fri02/12/23 at 1452, Second choice, use if first choice was ineffective., PACU fentaNYL (PF) (Sublimaze) injection 25 mcg 25 mcg, Intravenous, EVERY 10 MIN PRN, Mild Pain, 4 doses, Starting on Fri02/12/23 at 1032, Until Fri02/12/23 at 1452, Maximum total of 4 doses. If patient reaches max total dose, please consult anesthesiologist prior to further administration of pain meds. Hold pain meds if there are signs of hypoventilation. Patient preference for lesser PRN pain meds may be honored when the patient requests a less strong medication, a lower dose, or a less intrusive route of administration when the lesser drug, dose and route have been ordered for the patient. This patient request must be documented in the MAR., PACU fentaNYL (PF) (Sublimaze) injection 50 mcg 50 mcg, Intravenous, EVERY 10 MIN PRN, Moderate Pain, 4 doses, Starting on Fri02/12/23 at 1032, Until Fri02/12/23 at 1452, Maximum total of 4 doses. If patient reaches max total dose, please consult anesthesiologist prior to further administration of pain meds. Hold pain meds if there are signs of hypoventilation. Patient preference for lesser PRN pain meds may be honored when the patient requests a less strong medication, a lower dose, or a less intrusive route of administration when the lesser drug, dose and route have been ordered for the patient. This patient request must be documented in the MAR., PACU HYDROmorphone (Dilaudid) injection 0.5 mg 0.5 mg, Intravenous, EVERY 10 MIN PRN, Severe Pain, 4 doses, Starting on Fri02/12/23 at 1032, Until Fri02/12/23 at 1452, Maximum total of 4 doses If patient reaches max total dose, please consult anesthesiologist prior to further administration of pain meds. Hold pain meds if there are signs of hypoventilation. Patient preference for lesser PRN pain meds may be honored when the patient requests a less strong medication, a lower dose, or a less intrusive route of administration when the lesser drug, dose and route have been ordered for the patient. This patient request must be documented in the MAR., PACU lidocaine 1% (Xylocaine) - EPINEPHrine 1:100,000 injection (CANCELED) PRN, Starting on Fri02/12/23 at 0949, Until Fri02/12/23 at 1036, Intra-op 0949 ($ Given - Prov ider: Ellis Montano MD) metoclopramide (Reglan) injection 10 mg 10 mg, Intravenous, ONCE PRN, Nausea/Vomiting, 1 dose, Starting on Fri02/12/23 at 1032, Until Fri02/12/23 at 1452, Third choice, use if first and second choice was ineffective., PACU prochlorperazine (Compazine) injection 10 mg (COMPLETED) 10 mg, Intravenous, ONCE PRN, Nausea/Vomiting, 1 dose, Starting on Fri02/12/23 at 1032, Until Fri02/12/23 at 1039, First choice, PACU 1039 ($ Given - Prov ider: Gloria Edwards RN) documented in this encounter Care Teams Workforce Consultant Relationship Specialty Start Date End Date Wilmer Carnes MD [address] [place] [address] PCP - General Family Medicine 01/16/21 documented as of this encounter
--- OUTSIDE RECORDS SUMMARY | 2024-02-12 03:26 | XMS_ITS | Encounter Summary ---
Author Organization [facility] Address [address] [facility] [place] [address] Care Team Providers Care Due Diligence Coordinator Name Role Phone Wilmer Carnes MD Primary Care Provider Reason for Visit * Reason Onset Date Comments Speech Therapy 03/06/2023 Encounter Details Date Type Department Care Team (Late st Contact Info) Description 03/06/2023 Telephone [facility] - [facility] [address] [place] [address] Leyla Sears, CARMELA [address] [address] Speech Therapy Social History Tobacco Use Types Packs/Day Years [...] encounter Miscellaneous Notes * Telephone Encounter - Ainsley Salazar - 03/06/2023 10:08 AM PACK OUT OPERATOR Speech Therapy Prior Auth Check Primary Insurance: [employer] HMO-POS CPT Codes Voice/VCD/Chronic Cough/Throat Clearing Eval [id number]: NPR Treat 96015: NPR Only need to check CPT codes that pertain to the visit. Not all codes will be billed for. Please refer to physician's note. OUT OPERATOR documented in this encounter Plan of Treatment Not on file documented as of this encounter Visit Diagnoses Not on filedocumented in this encounter Care Teams Due Diligence Coordinator Relationship Specialty Start Date End Date Wilmer Carnes MD [address] [place] [address] PCP - General Family Medicine 01/16/21 documented as of this encounter
--- OUTSIDE RECORDS SUMMARY | 2024-02-12 03:26 | XMS_ITS | Encounter Summary ---
Author Organization [facility] Address [address] [facility] [place] [address] Care Team Providers Care Donor Technician Name Role Phone Wilmer Carnes MD Primary Care Provider [phone] Reason for Visit * Reason Comments Consultation Encounter Details Date Type Department Care Team (Late st Contact Info) Description 12/12/2022 3:00 PM CDT Office Visit [facility] - ENT [address], [address] [place] [id number] Ellis Montano MD [address] [facility] [address] DEPT [place] [address] Nasal valve collapse (Primary Dx); Smoking Social History Tobacco Use Types Packs/Day Years [...] as of this encounter Progress Notes * Ellis Montano MD - 12/12/2022 4:01 PM CDT History of Present Illness: 47 year old who presents with nasal airway complaints. Patient has hx of COPD, not on oxygen. She is accompanied by her . She is referred by Dr. Gustavo Esparza. I have reviewed his office notes from 10/31/22. The patient describes symptoms as difficult breathing, nasal obstruction, feeling like she can't get enough air. These symptoms are lifelong. The patient currently uses no nasal sprays, but has used Flonase and irrigations in the past prescribed by Dr. Esparza The nasal symptoms are worse on the- Codominant The degree of symptom severity: severe The patient's symptoms are alleviated by certain factors- yes, nose cones help, but she can't standto wear them all the time The patient's symptoms are exacerbated by certain factors- yes, when she sleeps on her right side The patient has history of nasal trauma- no The patient has history of nasal or sinus surgery- yes, FESS and septoplasty with Dr. Esparza Oct 2022 The patient has history of nasal steroid use- yes The patient desires cosmetic changes- no The patient uses nicotine- yes, she smokes 1-2 packs every 3 days. 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 Anxiety ??? Asthma Dr. mcdaniels controls ??? COPD (chronic obstructive pulmonary disease) ([facility]) ??? Diabetes ([facility]) ??? Lumbar herniated disc ??? PTSD (post-traumatic stress disorder) ??? Sleep apnea in adult PSH: has a past surgical history that includes adenoidectomy; back surgery; cholecystectomy; and septoplasty (11/01/2022). Current Outpatient Medications Medication Sig Dispense Refill ??? albuterol HFA (PROVENTIL;VENTOLIN;PROAIR) 108 (90 Base) [...] (one) capsule by mouth once daily ??? fluticasone propionate (Flonase) 50 MCG/ACT nasal spray SHAKE LIQUID AND USE 2 SPRAYS IN EACH NOSTRIL DAILY ??? hydroxychloroquine (PLAQUENIL) 200 MG tablet Take 1 (one) tablet by mouth 2 times daily Reasons: Rheumatoid Arthritis 60 tablet 1 ? ? Insulin Aspart Prot & Aspart (Insulin Asp Prot & Asp FlexPen) (70-30) 100 UNIT/ML SUPN INJECT PER SLIDING SCALE UP TO 40 UNITS PER DAY ??? Lancets (SberbankTOUCH DELICA PLUS 33G EXTRA FINE LANCET) TEST 3 TO 4 TIMES DAILY ??? mupirocin (Bactroban) 2 % ointment ??? JazzD MarketsTouch Ultra test strip USE WITH METER FOUR TIMES DAILY TO CHECK BLOOD GLUCOSE ??? Ozempic, 1 MG/DOSE, 4 MG/3ML pen [...] current facility-administered medications for this visit. Allergies Ranitidine, Risperidone, Parada, and Iodine Social History Tobacco Use ??? Smoking status: Former Years: 26 Types: Cigarettes Quit date: 07/11/2010 Years since quittin.4 ??? Smokeless tobacco: Never Vaping Use ??? Vaping Use: Never used Substance Use Topics ??? Alcohol use: Yes Comment: occasionally ??? Drug use: No Family History Problem Relation Name Age of Onset ??? Arthritis - Rheumatoid Maternal Grandmother Physical Exam: Constitutional: Alert, No acute Distress; Well developed/well nourished Neuro: Facial sensation intact to light touch, facial expressions symmetrical Eyes: conjunctiva clear, EOMI Face/Skin: normal appearance, no lesions/masses Ears: Right: External auricle normal Left: External auricle normal Nose: External- No external skin lesions, nasal dorsum is midline, midvault is midline, nasal tip is midline Internal- Nasal septum is midline, inferior turbinates normal, external nasal valve collapse improved with Terrell and Modified Terrell Mouth: symmetric tongue mobility, no lesions/masses/ulcers Neck: supple, no lymphadenopathy, no masses Voice: strong MusculoSkeletal: moves all extremities well CV/Pulm: Breathing comfortably on room air. Extremities warm to palpation. Procedure- flexible nasal endoscopy The procedure and alternatives were explained to the patient and verbal consent was obtained. The patient's bilateral nasal cavities were anesthetized with mixture of topical lidocaine and oxymetazoline. A zero degree flexible endoscope was advanced into both nasal cavities for evaluations. The patient tolerated the procedure well and there were no complications. Findings- There are no nasal masses, mucosal lesions, polyps, or purulent drainage. Posterior septum is straight. No septal perforation. Nasopharynx clear. Assessment and Plan: The patient is a 47 year old female who presents today with complaints relating to the nasal airway. On exam, the patient has at least 50% obstruction of the right nasal cavity and at least 50% obstruction of the left nasal cavity. The patient's history of nasal valve collapse has resulted in significant anatomic setbacks causing poor nasal function. These static anatomic deformities are not expected to resolve with medications. Instead, we discussed surgical treatment. We discussed surgical treatment in the form of open treatment of nasal valve collapse The surgery would involve a small internal nasal skin incision which has a risk for scarring. In addition to risks of bleeding, infection, pain, there will be postoperative nasal swelling and periorbital swelling,risk for dissatisfaction with the aesthetic appearance of the nose, asymmetry, persistent nasal airway obstruction. The nasal tip may be numb for up to 6 months. Any aesthetic changes to make the nose smaller may result in worse nasal breathing. Any grafts placed into the nose has the potential to make the nose appear bigger. Any aesthetic changes discussed represent goals we strive to achieve, ae sthetic results are dependent on many factors including wound healing, and aesthetic satisfaction cannot be guaranteed. There will be need for harvesting auricular cartilage to use for grafts inside the nose. This would require a postoperative dressing on the ear, slight change in ear position, earasymmetry, and a potential scar. We discussed endonasal approach for nasal valve repair using bilateral alar pham grafts harvestedfrom auricular cartilage. She does not need her septum instrumented. We discussed nicotine cessation and the negative effects of nicotine on wound healing. The patient understands that postoperatively, nicotine use will increase the risks of poor wound healing, poor scarring, and need for revision procedures in the future. This counseling was 3-10 minutes. Plan: -Patient and wish to proceed with surgery -Photos taken, orders submitted Ellis Montano MD Health Safety Manager Facial Plastic and Reconstructive Surgery Otolaryngology- Head and Neck Surgery documented in this encounter Procedure Notes * Ellis Montano MD - 12/12/2022 5:03 PM CDTAssociated Order(s): PROC SINUS ENDOSCOPY Procedure(s): MT NASAL ENDOSCOPY,DX Pre-Procedure Diagnose(s): Nasal valve collapse Procedure- flexible nasal endoscopy The procedure and alternatives were explained to the patient and verbal consent was obtained. The patient's bilateral nasal cavities were anesthetized with mixture of topical lidocaine and oxymetazoline. A zero degree flexible endoscope was advanced into both nasal cavities for evaluations. The patient tolerated the procedure well and there were no complications. Findings- There are no nasal masses, mucosal lesions, polyps, or purulent drainage. Posterior septum is straight. No septal perforation. Nasopharynx clear. documented in this encounter Plan of Treatment Not on file documented as of this encounter Procedures Procedure Name Priority Date/Time Associated Diagnosis Comments MT NASAL ENDOSCOPY,DX Routine 12/12/2022 5:03 PM CDT Nasal valve collapse documented in this encounter Results * MT NASAL ENDOSCOPY,DX (12/12/2022 5:03 PM CDT) Narrative [...] Other diseases of nasal cavity and sinuses Smoking Tobacco use disorder documented in this encounter Care Teams Donor Technician Relationship Specialty Start Date End Date Wilmer Carnes MD [address] [facility] [address] [place] [address] PCP - General Family Medicine 01/16/21 documented as of this encounter
--- OUTSIDE RECORDS SUMMARY | 2024-02-12 03:26 | XMS_ITS | Encounter Summary ---
Author Organization [facility] Address [address] [place] [address] Care Team Providers Care Rn Correctional Name Role Phone Wilmer Carnes MD Primary Care Provider [phone] Encounter Details Date Type Department Care Team (Latest Contact Info) Description 02/06/2023 Travel Social History Tobacco Use Types Packs/Day [...] on filedocumented in this encounter Care Teams Rn Correctional Relationship Specialty Start Date End Date Wilmer Carnes MD [address] [facility] [address] [place] [address] PCP - General Family Medicine 01/16/21 documented as of this encounter
--- OUTSIDE RECORDS SUMMARY | 2024-02-12 03:26 | XMS_ITS | Encounter Summary ---
Author Organization [facility] Address [address] [facility] [place] [address] Care Team Providers Care Farm Equipment Operator Name Role Phone Wilmer Carnes MD Primary Care Provider Reason for Visit * Auth/Cert (Routine) Specialty Diagnoses / Procedures Referred By Contac t Referred To Contact Diagnoses Nasal valve collapse NASAL VALVE COLLAPSE Procedures MT REPAIR NASAL CAVITY STENOSIS RECONSTRUCTION/REPAIR NASAL Referral ID Status Reason Start Date Expiration Date Visits Re quested Visits Authorized [id number] 1 1 Encounter Details Date Type Department Care Team (Latest Contact Info) Description 02/12/2023 6:54 AM ACADEMIC SUPPORT DIRECTOR - 02/12/2023 1:10 PM ACADEMIC SUPPORT DIRECTOR Hospital Encounter [facility] [address] [place] [id number] Ellis Montano MD [address] [place] [address] Surgery General Discharge Disposition: Home or Self Care Social [...] Sign Reading Time Taken Comments Blood Pressure 121/75 02/12/2023 12:45 PM ACADEMIC SUPPORT DIRECTOR Pulse 78 02/12/2023 12:45 PM ACADEMIC SUPPORT DIRECTOR Temperature 36.6 ??C (97.8 ??F) 02/12/2023 11:[address] Respiratory Rate 16 02/12/2023 11:39 AM ACADEMIC SUPPORT DIRECTOR Oxygen Saturation 95% 02/12/2023 12:45 PM ACADEMIC SUPPORT DIRECTOR Inhaled Oxygen Concentration - - Weight 85.4 kg (188 lb 4.8 oz) 02/12/2023 7:32 A M ACADEMIC SUPPORT DIRECTOR Height 160 cm (5' 3 ) 02/12/2023 7:32 AM ACADEMIC SUPPORT DIRECTOR Body Mass Index 33.36 02/12/2023 7:32 AM ACADEMIC SUPPORT DIRECTOR documented in this encounter Functional Status Functional [...] needed for Pain 30 tablet 02/12/2023 Lancets (DogeoTOUCH DELICA PLUS 33G EXTRA FINE LANCET) TEST 3 TO 4 TIMES DAILY 08/05/2022 mupirocin (Bactroban) 2 % ointment 10/31/2022 norethindrone (Aygestin) 5 MG tablet Take 1 (one) tablet by mouth once daily 02/08/[address] Ultra test strip USE WITH METER FOUR [...] controls ??? COPD (chronic obstructive pulmonary disease) ([facility]) ??? Delayed emergence from anesthesia ??? Diabetes [...] 0-6 Units Intravenous Once Lakhani, Nutressa A, COBOL MAINFRAME DEVELOPER-CELLOPHANE TESTER ??? lactated ringers infusion Intravenous pre-OP continuous Lakhani, Nutressa A, COBOL MAINFRAME DEVELOPER-CELLOPHANE TESTER 20 mL/hr at 02/12/23 0751 New Bag at 02/12/23 0751 REVIEW OF SYSTEMS 11 point review of systems was obtained and is negative except for as noted in the HPI and per clinical medical assistant notes PHYSICAL EXAM BP 130/78 Pulse 81 [...] Otolaryngology Head & Neck Surgery PGY-5 02/12/2023 EMIC SUPPORT DIRECTOR Associated attestation - Ellis Montano MD - 02/12/2023 8:57 AM ACADEMIC SUPPORT DIRECTOR Also consented for possible bilateral inferior turbinate reduction documented in this encounter Nursing Notes * Hortencia Thomas RN - 02/12/2023 1:15 PM CST Patient cam back from PACU at 11:35am and had intranasal sutures and left ear bolster. All intact. EMIC SUPPORT DIRECTOR documented in this encounter OR Notes * Operative - Ellis Montano MD - 02/12/2023 9:36 AM CST OPERATIVE REPORT NAME: Oumou Middleton : 1975 CSN: [id number] DATE OF OPERATION: 02/12/2023 ATTENDING SURGEON: Ellis Montano MD Pre-Op Diagnosis: -Nasal obstruction -Nasal valve collapse Post-Op Diagnosis: Same Procedure: -Nasal valve repair (CPT 06388) -Auricular cartilage graft (CPT 92527) Operative findings: -Bilateral alar pham grafts placed through marginal incisions, cartilage harvested from left auricular hoda Cable Former Daren Frausto MD Indications for procedure: Oumou [...] was overlying the medial end of the [place] lower lateral cartilage, and extended laterally to [...] portions of the surgery. Ellis Montano MD Cooperative Manager Facial Plastic and Reconstructive Surgery Otolaryngology- Head and Neck Surgery EMIC SUPPORT DIRECTOR documented in this encounter Plan of Treatment Not on file documented as of this encounter Procedures Procedure Name Priority Date/Time Associated Diagnosis Comments GLUCOSE - POINT OF CARE Routine 02/12/2023 11:45 AM ACADEMIC SUPPORT DIRECTOR MT REPAIR NASAL CAVITY STENOSIS 02/12/2023 9:36 AM ACADEMIC SUPPORT DIRECTOR Nasal valve collapse Case Notes Scheduling reviewed 02/10cp Special Needs SUPINE, DS 02/06 HCG URINE QUALITATIVE - POCT (IP) INTERFACED Routine 02/12/2023 7:46 AM ACADEMIC SUPPORT DIRECTOR GLUCOSE - POINT OF CARE Routine 02/12/2023 7:44 AM ACADEMIC SUPPORT DIRECTOR HCG URINE QUAL POCT NOTIFICATION STAT 02/12/2023 7:41 AM ACADEMIC SUPPORT DIRECTOR Pre-op testing documented in this encounter Results * GLUCOSE - POINT OF CARE (02/12/2023 11:45 AM ACADEMIC SUPPORT DIRECTOR) Glucose WB/POC 92 70 - 115 mg/dL 02/12/2023 11:50 AM ACADEMIC SUPPORT DIRECTOR [facility] Specimen Type Venous 02/12/2023 11:50 AM ACADEMIC SUPPORT DIRECTOR [facility] Blood BLOOD SPECIMEN / Unknown 02/12/2023 11:45 AM ACADEMIC SUPPORT DIRECTOR 02/12/2023 11:50 AM ACADEMIC SUPPORT DIRECTOR Ellis Montano MD LAB - POINT OF CARE ORDERABLES [facility] [address] [place] [address], [facility] [phone] * HCG URINE QUALITATIVE - POCT (IP) INTERFACED (02/12/2023 7:46 AM ACADEMIC SUPPORT DIRECTOR) HCG Qual Urine Negative Negative 02/12/2023 7:53 AM ACADEMIC SUPPORT DIRECTOR [facility] Urine URINE / Unknown 02/12/2023 7 :46 AM ACADEMIC SUPPORT DIRECTOR 02/12/2023 7:53 AM ACADEMIC SUPPORT DIRECTOR Ellis Montano MD LAB - POINT OF CARE ORDERABLES Performing Organization Address [facility]/ZIP Co de Phone Number [address] [address], [place] [phone] * GLUCOSE - POINT OF CARE (02/12/2023 7:44 AM ACADEMIC SUPPORT DIRECTOR) Glucose WB/POC 74 70 - 115 mg/dL 02/12/2023 7:47 AM ACADEMIC SUPPORT DIRECTOR [facility] Specimen Type Venous 02/12/2023 7:47 AM ACADEMIC SUPPORT DIRECTOR [facility] Blood BLOOD SPECIMEN / Unknown 02/12/2023 7:44 AM ACADEMIC SUPPORT DIRECTOR 02/12/2023 7:47 AM ACADEMIC SUPPORT DIRECTOR Ellis Montano MD LAB - POINT OF CARE ORDERABLES Performing Organization Address [facility] Co de Phone Number [address] [address], [place] [phone] * HCG URINE QUAL POCT NOTIFICATION (02/12/2023 7:41 AM ACADEMIC SUPPORT DIRECTOR) Comment Notification Label Only - See Separate Report 02/12/2023 9:01 AM ACADEMIC SUPPORT DIRECTOR [facility] Urine URINE / Unknown 02/12/2023 7 :41 AM ACADEMIC SUPPORT DIRECTOR 02/12/2023 7:41 AM ACADEMIC SUPPORT DIRECTOR Ellis Montano MD LAB - URINALYSIS ORD ERABLES Performing Organization Address [facility]/ZIP Co de Phone Number [address] [address], [place] [phone] documented in this encounter Visit Diagnoses Diagnosis [...] MAR., Pre-op $ Given 02/12/2023 7:52 AM ACADEMIC SUPPORT DIRECTOR 650 mg albuterol-ipratropium (Duo-Neb) nebulizer solution 3 [...] Pre-op $ New Bag/Syringe 02/12/2023 7:51 AM ACADEMIC SUPPORT DIRECTOR 20 mL/hr lactated ringers infusion at 75 mL/hr, Intravenous, CONTINUOUS, Starting on Fri02/12/23 at 1045, Until Fri02/12/23 at 1452, PACU *Current Bag - New Order 02/12/2023 10:35 AM ACADEMIC SUPPORT DIRECTOR 75 mL/hr metoclopramide (Reglan) injection 10 mg 10 mg, [...] choice, PACU $ Given 02/12/2023 10:39 AM ACADEMIC SUPPORT DIRECTOR 10 mg documented in this encounter Active and Recently Administered Medications Times are shown in ACADEMIC SUPPORT DIRECTOR. Scheduled Medication Order 02/10/2023 02/11/2023 02/12/2023 acetaminophen [...] ($ New Bag/Syri nge - Provider: Hortencia Thomas RN)1039 (Anesthesia Volume Adjustment - Provider: Kelsie Magana [...] RN) documented in this encounter Care Teams Farm Equipment Operator Relationship Specialty Start Date End Date Wilmer Cranes MD [address] [place] [address] PCP - General Family Medicine 01/16/21 documented as of this encounter
--- OUTSIDE RECORDS SUMMARY | 2024-02-12 03:26 | XMS_ITS | Encounter Summary ---
Author Organization [facility] Address [address] [place] [address] Care Team Providers Care Fur Floor Worker Name Role Phone Wilmer Carnes MD Primary Care Provider Encounter Details Date Type Department Care Team (Latest Contact Info) Description 02/06/2023 10:58 AM CLAM BED WORKER - 02/06/2023 11:[address] [facility] Hospital Encounter [facility] PAT [address] [place] [phone] Ellis Montano MD [address] [place] [address] Otolaryngology Discharge Disposition: Home or Self Care Anesthesia Record Procedure Summary Procedure Name Responsible [...] Room 1034 ANPTO2 1039 An Stop Meds * Agents No agents on file. * Blood No blood administrations on file. [...] Sign Reading Time Taken Comments Blood Pressure 138/85 02/06/2023 10:58 AM CLAM BED WORKER Pulse 92 02/06/2023 10:58 AM CLAM BED WORKER Temperature 36.6 ??C (97.9 ??F) 02/06/2023 10:[address] Respiratory Rate 18 02/06/2023 10:58 AM CLAM BED WORKER Oxygen Saturation 100% 02/06/2023 10:58 AM CLAM BED WORKER Inhaled Oxygen Concentration - - Weight 85.5 kg (188 lb 9.6 oz) 02/06/2023 10:58 AM CLAM BED WORKER Height 157.5 cm (5' 2 ) 02/06/2023 10:58 AM CLAM BED WORKER Body Mass Index 34.5 02/06/2023 10:58 AM CLAM BED WORKER documented in this encounter Medications at Time of Discharge [...] 08/05/2022 mupirocin (Bactroban) 2 % ointment 10/31/2022 [employer] Ultra test strip USE WITH METER [...] Procedure Name Priority Date/Time Associated Diagnosis Comments CBC W/O DIFFERENTIAL STAT 02/06/2023 11:40 AM CLAM BED WORKER Pre-op evaluation BASIC METABOLIC PANEL (CALCIUM TOTAL) STAT 02/06/2023 11:40 AM CLAM BED WORKER Pre-op evaluation documented in this encounter Results * (ABNORMAL) BASIC METABOLIC PANEL (CALCIUM TOTAL) (02/06/2023 11:40 AM CLAM BED WORKER) BUN 10 7 - 26 mg/dL 02/06/2023 1:10 PM [facility] Creatinine 0.62 0.56 - 0.96 mg/dL 02/06/2023 1:10 PM [facility] Sodium 139 136 - 145 mmol/L 02/06/2023 1:10 PM [facility] Potassium 3.4(L) 3.5 - 4.5 mmol/L 02/06/2023 1:10 PM [facility] Chloride 108(H) 98 - 107 mmol/L 02/06/2023 1:10 PM [facility] CO2 25 22 - 29 mmol/L 02/06/2023 1:10 PM [facility] Glucose 177(H) 70 - 115 mg/dL 02/06/2023 1:10 PM [facility] Calcium 9.2 8.4 - 10.2 mg/dL 02/06/2023 1:10 PM [facility] Anion Gap 6 6 - 16 02/06/2023 1:10 PM [facility] BUN/Creatinine Ratio 16 7 - 23 02/06/2023 1:10 PM [facility] Osmolality Calculated 291 275 - 295 mOsm/kg 02/06/2023 1:10 PM [facility] eGFR by CKD-EPI >90 >=90 mL/min/1.7 3 m2 02/06/2023 1:10 PM [facility] Blood BLOOD SPECIMEN / Unknown Lab Venipuncture / Unknown 02/06/2023 11:40 AM CLAM BED WORKER 02/06/2023 11:[address] [facility] Blessing Lakhani NURSE QUALITY-PRE BILLING CLINICIAN LAB - TREE [employer] FOREMAN RY ORDERABLES [facility] [address] [place] [id number], [facility] [phone] * CBC W/O DIFFERENTIAL (02/06/2023 11:[address] [facility]) Pathologist [facility] WBC 7.3 3.5 - 10.5 10? 3 /uL 02/06/2023 12:07 PM [facility] RBC 4.83 3.80 - 5.20 10? 6 /uL 02/06/2023 12:07 PM [facility] Hemoglobin 13.0 12.0 - 15.6 g/dL 02/06/2023 12:07 PM [facility] Hematocrit 39.6 35.0 - 45.0 % 02/06/2023 12:07 PM [facility] MCV 82.0 80.7 - 98.3 fL 02/06/2023 12:07 PM [facility] MCH 26.9 26.7 - 34.0 pg 02/06/2023 12:07 PM [facility] MCHC 32.8 30.8 - 35.9 g/dL 02/06/2023 12:07 PM [facility] RDW-SD 41.5 36.0 - 50.0 fL 02/06/2023 12:07 PM [facility] RDW-CV 14.0 11.2 - 14.8 % 02/06/2023 12:07 PM [facility] Platelet Count 248 150 - 400 10? 3 /uL 02/06/2023 12:07 PM [facility] MPV 10.1 9.4 - 12.9 fL 02/06/2023 12:07 PM [facility] nRBC Absolute 0.00 0 10? 3 /uL 02/06/2023 12:07 PM [facility] nRBC Auto 0.0 0 /100 WBC 02/06/2023 12:07 PM [facility] Blood BLOOD SPECIMEN / Unknown Lab Venipuncture / Unknown 02/06/2023 11:40 AM CLAM BED WORKER 02/06/2023 11:56 AM CLAM BED WORKER Blessing [employer]hani NURSE QUALITY-PRE BILLING CLINICIAN LAB - HEMATOL OGY ORDERABLES [facility] [address] [place] [phone], [facility] [phone] documented in this encounter Visit Diagnoses Diagnosis Pre-op evaluation- Primary Preoperative examination, unspecified documented in this encounter Care Teams Fur Floor Worker Relationship Specialty Start Date End Date Wilmer Carnes MD [address] [place] [address] PCP - General Family Medicine 01/16/21 documented as of this encounter
--- OUTSIDE RECORDS SUMMARY | 2024-02-12 03:26 | XMS_ITS | Encounter Summary ---
Author Organization [facility] Health Address [address] [place] [address] Care Team Providers Care Finished Stock Inspector Name Role Phone Wilmer Carnes MD Primary Care Provider [phone] Encounter Details Date Type Department Care Team (Latest Contact Info) Description 01/16/2021 4:04 PM BED RUBBER - 01/16/2021 11:59 PM [facility] Hospital Encounter [facility] Health Imaging Services [address] [place] [address] Walter Schaefer DO [address] [place] [phone] Discharge Disposition: Home or Self Care Social [...] Sig Dispensed Refills Start Date End Date albuterol HFA (PROVENTIL;VENTOLIN;P ROAIR) 108 (90 Base) MCG/ACT inhaler Inhale 2 (two) puffs by mouth ARIPiprazole (ABILIFY) 5 MG tablet 1 (one) tablet 09/30/2013 cyclobenzaprine (FLEXERIL) 10 MG tablet Take 1 (one) tablet by mouth 08/08/2016 DULoxetine (CYMBALTA) 30 MG capsule Take 1 (one) capsule by mouth once daily 08/10/2016 hydroxychloroquine (PLAQUENIL) 200 MG tabletIndications:Rhe umatoid Arthritis Take 1 (one) tablet by mouth 2 times daily Reasons: Rheumatoid Arthritis 60 tablet 1 01/16/2021 Respiratory Therapy Supplies (NEBULIZER) WILLI Use as directed 08/24/2018 Barium Sulfate (VOLUMEN PO) 12/12/2022 benzonatate (TESSALON) 200 MG capsuleIndications:Co ugh Take 1 capsule by mouth 3 times daily as needed for Cough 30 capsule 01/18/2019 12/12/2022 diazePAM (VALIUM) 5 MG tablet Take 5 mg by mouth 3 times daily as needed for Anxiety 12/12/2022 insulin aspart (NOVOLOG) vial 12/12/2022 LANTUS SOLOSTAR pen ADMINISTER 30 UNITS UNDER THE SKIN EVERY EVENING 06/09/2020 12/12/2022 metFORMIN (GLUCOPHAGE) 1000 MG tablet Take 1,000 mg by mouth once daily 12/12/2022 naproxen (NAPROSYN) 500 MG tabletIndications:Rhe umatoid Arthritis Take 1 (one) tablet by mouth 2 times daily Reasons: Rheumatoid Arthritis 60 tablet 1 01/16/2021 12/12/2022 rizatriptan (MAXALT) 10 MG tablet TK ONE T PO MAY REPEAT Q TWO H FOR TWO DOSES. MAX OF 3 TS PER 24 H. 0 11/03/2018 12/12/2022 traZODone (DESYREL) 100 MG tablet Take 100 mg by mouth 09/30/20132022 documented as of this encounter Progress Notes * Walter Schaefer DO - 01/16/2021 11:59 PM CST Appearance of Achilles and calcaneal and the sites potentially would raise consideration of polyarticular spondyloarthritis/psoriatic arthritis versus seronegative rheumatoid arthritis. No change in initial current treatment recommendations to initiate a trial of hydroxychloroquine and naproxen and recheck in 1 month. 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 No change in initial treatment recommendations including the start of hydroxychloroquine and naproxen and recheck in 1 month. RUBBER documented in this encounter Plan of Treatment Not on file documented as of this encounter Procedures Procedure Name Priority Date/Time Associated Diagnosis Comments XR FOOT BILAT 3VW OR MORE Routine 01/16/2021 4:28 PM BED RUBBER 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) XR HAND BILAT 3VW OR MORE Routine 01/16/2021 4:28 PM BED RUBBER 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) documented in this encounter Results * XR HAND BILAT 3VW OR MORE (01/16/2021 4:28 PM BED RUBBER) Anatomical Region Laterality Modality Upper Extremity, Wrist / Hand Ra diographic Imaging 01/16/2021 4:33 PM BED RUBBER Narrative 01/16/2021 4:43 PM BED RUBBER BILATERAL HANDS, THREE VIEW HISTORY: Pain. There [...] Ayon on 01/16/2021 at 4:43 PM Walter Schaefer DO DIAGNOSTIC IMAGING O RDERABLES * XR FOOT BILAT 3VW OR MORE (01/16/2021 4:28 PM BED RUBBER) Anatomical Region Laterality Modality Ankle / Foot, Lower Extremity Ra diographic Imaging 01/16/2021 4:41 PM BED RUBBER Narrative 01/16/2021 5:06 PM BED RUBBER BILATERAL FEET, SIX VIEW HISTORY: Seronegative arthropathy. [...] Walter Schaefer DO DIAGNOSTIC IMAGING O RDERABLES documented in this encounter Visit Diagnoses Diagnosis 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) documented in this encounter Care Teams Finished Stock Inspector Relationship Specialty Start Date End Date Wilmer Carnes MD [address] [place] [address] PCP - General Family Medicine 01/16/21 documented as of this encounter
--- OUTSIDE RECORDS SUMMARY | 2024-02-12 03:26 | XMS_ITS | Encounter Summary ---
Author Organization [facility] Address [address] [place] [address] Care Team Providers Care Dry Boss Name Role Phone Wilmer Carnes MD Primary Care Provider [phone] Reason for Visit * Reason Onset Date Comments Appointment 01/22/2023 Encounter Details Date Type Department Care Team (Late st Contact Info) Description 01/22/2023 Telephone [facility] - ENT [address] [place] [phone] Ellis Montano MD [address] [place] [address] [place] [address] Appointment Social History Tobacco Use Types Packs/Day Years [...] encounter Miscellaneous Notes * Telephone Encounter - Elena Astudillo - 01/22/2023 3:32 PM FIRMWARE ARCHITECT The patient left a message on the H&N line requesting to reschedule her surgery with Dr. Montano that's scheduled on 02/12. WARE ARCHITECT documented in this encounter Plan of Treatment Not on file documented as of this encounter Visit Diagnoses Not on filedocumented in this encounter Care Teams Dry Boss Relationship Specialty Start Date End Date Wilmer Carnes MD [address] [place] [id number] PCP - General Family Medicine 01/16/21 documented as of this encounter
--- OUTSIDE RECORDS SUMMARY | 2024-02-12 03:27 | XMS_ITS | Clinical Summary ---
Author Organization [facility] Address [facility] [place] [address] [place] [address] Care Team Providers Care Highway Maintenance Supervisor Name Role Phone Holger Soriano Primary Care Provider [phone] Allergies Active Allergy Reactions Criticality Noted Date Comments Parada Anaphylaxis High 08/11/2010 Iodinated Contrast Media Unknown 07/06/2014 Itching Iodine Rash,Hives,Other (se e comment) Medium 03/17/2010 Reaction: Hives, Lidocaine Hives 06/17/2023 Ranitidine Unknown 09/03/2020 Risperidone Other (see comment) Low 01/16/2021 Reaction: OTHER REACTION Medications albuterol sulfate HFA 108 (90 Base) MCG/ACT inhalerIndicat ions:Acute cough,Wheezing Inhale 2 puffs into the lungs every 4 (four) hours as needed for Wheezing or Shortness of breath. 18 g 04/01/19 24 Active QUEtiapine (SEROQUEL) 100 MG tabletIndicati ons:Bipolar I disorder with depression (CMS/HCC [facility]) Take 1 tablet (100 mg total) by mouth nightly at bedtime. at bedtime 90 tablet 09/16/19 24 Active DULoxetine (CYMBALTA) 30 MG capsuleIndicat ions:Depressio n, unspecified depression type Take 1 capsule (30 mg total) by mouth daily. 180 capsule 1 09/16/19 24 Active semaglutide (OZEMPIC) 1 mg/dose injection (PEN)Indicatio ns:Diabetes Mellitus Inject 1 mg into the skin once a week. Indications: Diabetes 3 mL 3 11/19/19 24 025 Active SUMAtriptan (IMITREX) 25 MG tabletIndicati ons:Migraine with status migrainosus, not intractable, unspecified migraine type Take 1 tablet (25 mg total) by mouth daily as needed for Migraine. Max of 8 tablets (200 mg) in a 24 hour period. 30 tablet 2 11/28/19 24 Active terconazole (TERAZOL 3) 0.8 % vaginal creamIndicatio ns:Acute vaginitis Place 1 applicator vaginally nightly at bedtime. 1 g 12/29/19 24 Active meloxicam (MOBIC) 15 MG tabletIndicati ons:Acute bilateral low back pain with bilateral sciatica TAKE 1 TABLET (15 MG TOTAL) BY MOUTH DAILY. 30 tablet 1 12/31/19 24 Active gabapentin (NEURONTIN) 300 MG capsuleIndicat ions:Chronic left shoulder pain Take 1 tablet in the morning and 2 tablets at night time. 90 capsule 1 01/20/20 24 Active nystatin (MYCOSTATIN) powderIndicati ons:Intertrigo Apply topically 2 (two) times daily for 30 days. 60 g 3 01/20/20 24 024 Active fluticasone propionate (FLONASE) 50 MCG/ACT nasal sprayIndicatio ns:Acute non-recurrent frontal sinusitis 2 sprays by Nasal route daily for 30 days. 2 puffs each nostril twice a day for 3 days, then 2 puffs each nostril daily 18.2 mL 1 01/20/20 24 024 Active progesterone (PROMETRIUM) 100 MG capsuleIndicat ions:Menopausa l and female climacteric states Take 1 capsule (100 mg total) by mouth daily. 90 capsule 01/20/20 24 Active estradiol (ESTRACE) 2 MG tabletIndicati ons:Menopausal and female climacteric states Take 1 tablet (2 mg total) by mouth daily. 90 tablet 01/20/20 24 025 Active hydrOXYzine (ATARAX) 10 MG tablet Take 1 tablet (10 mg total) by mouth. 02/08/20 24 Active cyclobenzaprin e (FLEXERIL) 10 MG tablet Take 1 tablet (10 mg total) by mouth as needed. FOR MUSCLE SPASMS 12/22/19 24 Active fluticasone propionate (FLONASE) 50 MCG/ACT nasal spray 2 sprays by Each Nostril route daily. SHAKE LIQUID 03/28/19 024 Discontinued estradiol (ESTRACE) 2 MG tabletIndicati ons:Menopausal and female climacteric states Take 1 tablet (2 mg total) by mouth daily. 28 tablet 2 03/18/19 24 024 Discontinued(Re order) progesterone (PROMETRIUM) 100 MG capsuleIndicat ions:Menopausa l and female climacteric states take 1 capsule by mouth every day 90 capsule 1 06/10/19 24 024 Discontinued(Re order) diazePAM (VALIUM) 5 MG tabletIndicati ons:Acute bilateral low back pain with bilateral sciatica Take 1 tablet (5 mg total) by mouth every 12 (twelve) hours as needed for Anxiety. 10 tablet 11/07/19 24 024 Discontinued gabapentin (NEURONTIN) 300 MG capsuleIndicat ions:Chronic left shoulder pain Take 2 capsules (600 mg total) by mouth every evening for 30 days. 60 capsule 1 12/22/19 24 024 Discontinued cyclobenzaprin e (FLEXERIL) 10 MG tabletIndicati ons:Other muscle spasm Take 1 tablet (10 mg total) by mouth as needed. FOR MUSCLE SPASMS 90 tablet 12/22/19 24 024 diazePAM (VALIUM) 5 MG tabletIndicati ons:Chronic low back pain, unspecified back pain laterality, unspecified whether sciatica present Take 2 tablets 30-60 minutes prior to scheduled MRI 2 tablet 12/24/19 24 024 Discontinued cefdinir (OMNICEF) 300 MG Cap capsuleIndicat ions:Bronchiti s Take 1 capsule (300 mg total) by mouth 2 (two) times daily. 20 capsule 12/29/19 24 024 Discontinued amoxicillin (AMOXIL) 875 MG tabletIndicati ons:Acute non-recurrent frontal sinusitis Take 1 tablet (875 mg total) by mouth 2 (two) times daily for 10 days. 20 tablet 01/20/20 24 024 Active Problems Problem Noted Date Diagnosed Date Frozen shoulder 12/23/2023 Assessment & Plan (12/23/2023 8:14 PM CDT): Recommendation at this time, we went over the risks and benefits as well as the alternatives. She's already failed conservative therapy. We'll get her set up with manipulation under anesthesia with injection to the left shoulder. Get her set up for an MRI to the lumbar spine. History of spinal fusion 12/23/2023 Low back pain 12/23/2023 Bilateral lower extremity pain 12/23/2023 Left shoulder pain 10/23/2023 Numbness and tingling in left arm 07/09/2023 Radiculopathy of cervicothoracic region 07/07/19 24 Complex regional pain syndro me type 1 of left upper extremity 07/07/2023 Assessment & Plan (07/07/2023 6:54 PM CDT): Diagnosis, more consistent with complex regional pain syndrome, although she did have a head injury, the MRI of her brain was unremarkable, no evidence of an intracranial issue. Recommendation at this time: We discussed the risks, benefits, as well as the alternatives. We will get an MRI of her neck with the numbness and tingling and the intractable pain down the left upper extremity. We'll get her started on meloxicam and then Valium for the MRI. We'll see you back after the MRI. If there's no significant relief, could consider steroid injection to the shoulder and or an arthrogram of the shoulder. All questions answered. Disrupted sleep-wake cycle 01/28/2022 Tinnitus of both ears 01/28/2022 ART positive 01/16/2021 Overview (11/07/2023): Laboratory testing collected 11/10/2020 indicated presence of [...] with consideration for possible autoimmune liver disease. Last Assessment & Plan: Previous history suggesting non alcoholic fatty liver [...] with consideration for possible autoimmune liver disease. 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 Will discontinue odby-olr-mrkdkek ibuprofen in place her on prescription straight [...] have suggested clinical reassessment in 1 month. Restless legs syndrome (RLS) 08/24/2018 Hypersomnia 03/31/2018 Mild persistent asthma without complication ([facility]HS /HCC) 03/31/2018 DINESH (obstructive sleep apnea) 03/31/2018 Dermatitis of foot 11/28/2016 Diabetic polyneuropathy asso ciated with type 2 diabetes mellitus ([facility]) 11/28/2016 Posttraumatic stress disorder 10/04/2013 Overview (11/07/2023): PTSD Type 2 diabetes mellitus ([facility]) 10/04 Overview (11/07/2023): Diabetes mellitus type 2 Encounters Date Type Department Care Team Description 02/11/2024 Smaato Message Enc [facility] Interventional [facility] [place] [address] [id number] [facility] Provider Pain Clinic Referral 02/09/2024 9:47 AM FILER FINISH - 02/09/2024 11:59 PM FILER FINISH Hospital Encounter [facility] Laboratory [address] [place], [place] [phone] Holger Soriano PA Arrived Discharge Disposition: Home or Self Care (Routine Discharge) 02/09/2024 8:20 AM FILER FINISH Office Visit [facility] Family & Internal Medicine [facility] [address] [place] [address] Holger Soriano PA ER F/U (Pt was seen at [facility] 02/07/2024 for extreme muscle spasms. Pt stated she couldn't talk, breath and felt like her body wasn't her body) 02/09/2024 Telephone [facility] & Internal [facility] [address] [place] [address] Holger Soriano PA Other (MRI order ) 02/09/2024 Travel 02/05/2024 10:55 AM FILER FINISH - 02/05/2024 11:59 PM FILER FINISH Hospital Encounter [facility] Outpatient Rehab [address] [place] [address] Padmaja Marie, PT Holger Soriano PA Back Pain; Shoulder Pain Discharge Disposition: Home or Self Care (Routine Discharge) 02/05/2024 Telephone [facility] Orthopedic Surgery [address] [phone] Ihsan Macias DO Pre-op Question(s) 02/05/2024 Travel 01/20/2024 10:20 AM FILER FINISH Office Visit [facility] Internal [address] [phone] Holger Soriano PA Follow Up (1 month follow up); Medication Management; Sinus Problem (Pt c/o sinus congestion X 3 days/Pt completed antibiotics for same symptom 1 week ago) 01/20/2024 8:58 AM FILER FINISH - 01/20/2024 11:59 PM FILER FINISH Hospital Encounter [facility] Outpatient Rehab [address] [place] [address] Holger Soriano PA Eddy, Sandi L, PTA Shoulder Pain; Back Pain Discharge Disposition: Home or Self Care (Routine Discharge) 01/20/2024 Travel 01/12/2024 1:00 PM FILER FINISH - 01/12/2024 11:59 PM FILER FINISH Hospital Encounter [facility] Outpatient Rehab [address] [place] [address] Padmaja Marie, PT Holger Soriano PA Back Pain; Shoulder Pain Discharge Disposition: Home or Self Care (Routine Discharge) 01/12/2024 Travel 01/09/2024 8:23 AM FILER FINISH - 01/09/2024 11:59 PM FILER FINISH Hospital Encounter [facility] Outpatient Rehab [address] [place] [address] Padmaja Marie, PT Ihsan Macias DO Bowen, Jeremy S, PA Shoulder Pain Discharge Disposition: Home or Self Care (Routine Discharge) 01/09/2024 Travel 01/01/[address] [facility] [place] [address] Ihsan Macias DO 12/31/2023 Telephone [facility] Orthopedic Surgery [address] [address] Ihsan Macias DO Question 12/30/2023 11:59 PM FILER FINISH Anesthesia Event [facility] Surgery [address] [place] [address] Lalita Rodriguez, HUMAN RESOURCES TRAINEE 12/30/2023 Telephone [facility] One Day Services [address] [place] [address] Raven Watson RN Surgery 12/29/2023 1:33 PM FILER FINISH - 12/29/2023 11:59 PM FILER FINISH Hospital Encounter [facility] Cardiopulmonary Services [address] [place] [address] Ihsan Macias DO Discharge Disposition: Home or Self Care (Routine Discharge) 12/29/2023 1:20 PM FILER FINISH Office Visit [facility] Family & Internal Medicine [address] [phone] Holger Soriano PA Billhartz, Lynn D, PA Sinus Problem (S/s x 3-4 weeks ) 12/29/2023 10:15 AM FILER FINISH - 12/29/2023 1:32 PM FILER FINISH Hospital Encounter [facility] Outpatient Rehab [address] [place] [address] Padmaja Marie, PT Holger Soriano PA Back Pain Discharge Disposition: Home or Self Care (Routine Discharge) 12/29/2023 Travel 12/25/2023 9:56 AM CDT - 12/25/2023 11:59 PM CDT Hospital Encounter [facility] Outpatient Rehab [address] [place] [address] Padmaja Marie, PT Holger Soriano PA Back Pain Discharge Disposition: Home or Self Care (Routine Discharge) 12/25/2023 Telephone [facility] Orthopedic Surgery [facility] [address] [address] Ihsan Macias, Surgery Questions 12/25/2023 Travel 12/24/2023 Prep for Procedure [facility] Orthopedic Surgery [facility] [address] [address] Ihsan Macias DO 12/23/2023 7:30 AM CDT - 12/23/2023 11:59 PM CDT Hospital Encounter [facility] Outpatient Rehab [address] [place] [address] Sampson Mukherjee, PT Ihsan Macias DO Shoulder Pain Discharge Disposition: Home or Self Care (Routine Discharge) 12/23/2023 Travel 12/22/2023 4:00 PM CDT Office Visit [facility] Orthopedic Surgery [address] [address] Ihsan Macias DO Follow Up (Left shoulder/neck pain) 12/22/2023 2:20 PM CDT Office Visit [facility] Family & Internal Medicine [facility] [address] [place] [address] Holger Soriano PA Follow Up (3 month follow up); Diabetes 12/22/2023 9:54 AM CDT - 12/22/2023 11:59 PM CDT Hospital Encounter [facility] Outpatient Rehab [id number] [place] [address] Padmaja Marie, PT Holger Soriano PA Shoulder Pain Discharge Disposition: Home or Self Care (Routine Discharge) 12/22/2023 Telephone [facility] Family & Internal Medicine [facility] [address] [place] [phone] Holger Soriano PA Question; Forms 12/22/2023 Travel 12/18/2023 9:26 AM CDT - 12/18/2023 11:59 PM CDT Hospital Encounter [facility] [address] [place] [address] Padmaja aMrie, PT Holger Soriano PA Shoulder Pain; Back Pain Discharge Disposition: Home or Self Care (Routine Discharge) 12/18/2023 Travel 12/11/2023 8:06 AM CDT - 12/11/2023 11:59 PM CDT Hospital Encounter [facility] [address] [place] [address] Padmaja Marie, Holger Patel PA Shoulder Pain; Back Pain Discharge Disposition: Home or Self Care (Routine Discharge) 12/11/2023 Travel 12/10/2023 1:29 PM CDT - 12/10/2023 11:59 PM CDT Hospital Encounter [facility] [address] [place] [address] Ihsan Macias, DO Discharge Disposition: Home or Self Care (Routine Discharge) 12/10/2023 Travel 12/08/2023 4:45 PM CDT - 12/08/2023 11:59 PM CDT Hospital Encounter [facility] [address] [place] [address] Padmaja Marie, Holger Patel PA Shoulder Pain; Back Pain Discharge Disposition: Home or Self Care (Routine Discharge) 12/08/2023 Travel 12/04/2023 9:33 AM CDT - 12/04/2023 11:59 PM CDT Hospital Encounter [facility] [address] [place] [address] Padmaja Marie, PT Holger Soriano PA Shoulder Pain (Shoulder Re-eval/) Discharge Disposition: Home or Self Care (Routine Discharge) 12/04/2023 Travel 12/02/2023 3:20 PM CDT Office Visit [facility] Family & Internal [address] [phone] Dionne Haskins PA Sinus Problem (Stuffy head, drainage, pressure to eyes-no fever-x1 week) 12/02/2023 1:45 PM CDT - 12/02/2023 11:59 PM CDT Hospital Encounter [facility] [address] [place] [address] Holger Soriano PA Korte, Heather E, MANAGER FRENCH Shoulder Pain; Back Pain Discharge Disposition: Home or Self Care (Routine Discharge) 12/02/2023 Travel 11/28/2023 MyChart Message Enc [facility] [address] [phone] [facility] Provider medication 11/27/2023 3:30 PM CDT - 11/27/2023 11:59 PM CDT Hospital Encounter [facility] [address] [place] [address] Padmaja Marie, PT Holger oSriano PA Shoulder Pain; Back Pain Discharge Disposition: Home or Self Care (Routine Discharge) 11/27/2023 Travel 11/24/2023 9:00 AM CDT - 11/24/2023 11:59 PM CDT Hospital Encounter [facility] [address] [place] [address] Holger Soriano PA Sackett, Kim, CAROLA Back Pain; Shoulder Pain Discharge Disposition: Home or Self Care (Routine Discharge) 11/24/2023 Travel 11/21/2023 7:45 AM CDT - 11/21/2023 11:59 PM CDT Hospital Encounter [facility] [address] [place] [phone] Padmaja Marie, PT Holger Soriano PA Back Pain; Shoulder Pain Discharge Disposition: Home or Self Care (Routine Discharge) 11/21/2023 Travel 11/19/2023 Telephone [facility] Family [facility] [address] [place] [address] Holger Soriano PA Medication 11/17/2023 1:39 PM CDT - 11/17/2023 11:59 PM CDT Hospital Encounter [facility] Outpatient Rehab [address] [place] [address] Padmaja Marie, PT Holger Soriano PA Shoulder Pain Discharge Disposition: Home or Self Care (Routine Discharge) 11/17/2023 Travel from Last 3 Months Immunizations Name Administration Dates Next Due Fluarix 10/30/2012 Flucelvax 2 YRS+ (Multi-Dose Vial) 01/12/2020 Fluzone 6 Months+ Quad (0.5 mL Prefilled Syringe) 10/30/2016,12/06/2014 Influenza (Generic) 11/26/2018,12/20/2015,2012 Influenza Adult (Generic) 01/12/2020,10/30/2016, 12/06/2014 Pneumovax 23 25 Mcg/0.5Ml Ij Inj 11/26/2018 Family History Medical History Relation Comments Dementia Maternal Grandmother Dementia Mother Osteoarthritis Mother Ovarian Cancer Mother Thyroid cancer Mother Endometriosis Sister Thyroid cancer Sister thyroid cancer Sister Relation Status Comments Maternal Grandmother Mother Sister Social History Tobacco Use Types Packs/Day Years Used Date Smoking Tobacco: Former Cigarettes Q uit: 03/18/2023 Passive Smoke Exposure: Current Smokeless Tobacco: Never Tobacco Cessation:Counseling Given: Yes Comments:na Alcohol Use Standard Drinks/Week Comments Yes 0 (1 standard drink = 0.6 oz pur e alcohol) socially PHQ-2 Answer Date Recorded Patient Health Questionnaire-2 Score 4 09/16/2023 Comments No Sex and Gender Information Value Date Recorded Sex Assigned at Female 06/05/2023 1:14 PM CDT Legal Sex Female 5:27 PM CDT Gender Identity Female 06/05/2023 1:14 PM CDT Sexual Orientation Straight 06/05/2023 1: 14 PM CDT Last Filed Vital Signs Vital Sign Reading Time Taken Comments Blood Pressure 155/89 02/09/2024 8:59 AM FILER FINISH Pulse 78 02/09/2024 8:59 AM FILER FINISH Temperature 36.7 ??C (98.1 ??F) 02/09/2024 8:59 AM CS T Respiratory Rate 22 02/09/2024 8:59 AM FILER FINISH Oxygen Saturation 98% 02/09/2024 8:59 AM FILER FINISH Inhaled Oxygen Concentration - - Weight 88.7 kg (195 lb 9.6 oz) 02/09/2024 8:59 A M FILER FINISH Height 159.4 cm (5' 2.75 ) 02/09/2024 8:59 AM CS T Body Mass Index 34.93 02/09/2024 8:59 AM FILER FINISH Plan of Treatment Upcoming Encounters Date Type Department Care Team (Late st Contact Info) Description 02/12/2024 9:00 AM FILER FINISH Appointment [facility] Outpatient Rehab [id number] [place] [address] [place] [address] [place] [address] [place] [address] [place] [address] 02/12/2024 2:00 PM FILER FINISH Appointment [facility] [address] [place] [address] [place] [address] [place] [address] 02/16/2024 9:00 AM FILER FINISH Appointment [facility] Outpatient Rehab [address] [place] [address] [place] [address] [place] [address] [place] [address] [place] [address] 02/19/2024 8:45 AM FILER FINISH Appointment [facility]patient [facility]hab [address] [place] [address] [place] [address] [place] [address] [place] [address] [place] [address] 02/19/2024 9:00 AM FILER FINISH Appointment [facility]patient [facility]hab [address] [place] [address] [place] [address] [place] [address] [place] [address] [place] [address] 02/23/2024 9:00 AM FILER FINISH Appointment [facility]hab [address] [place] [address] [place] [address] [place] [address] [place] [address] [place] [address] 02/24/2024 1:30 PM FILER FINISH Appointment [facility] [address] [place] [address] Ihsan Macias, [address] [place] [address] 02/26/2024 9:00 AM FILER FINISH Appointment [facility] Outpatient Rehab [address] [place] [address] [place] [address] [place] [address] [place] [address] [place] [address] 02/26/2024 9:15 AM FILER FINISH Appointment [facility] Outpatient Rehab [address] [place] [address] [place] [address] [place] [address] [place] [address] [place] [address] 03/01/2024 9:00 AM FILER FINISH Appointment [facility] Outpatient Rehab [address] [place] [address] [place] [address] [place] [address] [place] [address] [place] [address] Lorene Branch, MANAGER FRENCH 03/02/2024 12:27 PM FILER FINISH Hospital Encounter [facility] Surgery [address] [place] [address] [place] [address] [place] [address] 03/02/2024 12:27 PM FILER FINISH - 03/02/2024 1:07 PM FILER FINISH Surgery [facility] [address] [place] [address] [place] [address] [place] [address] MANIPULATION SHOULDER 03/05/2024 9:00 AM FILER FINISH Appointment [facility] Outpatient Rehab [address] [place] [address] [place] [address] [place] [address] Lorene Branch, MANAGER FRENCH 03/08/2024 9:00 AM FILER FINISH Appointment [facility]hab [address] [place] [address] [place] [address] [place] [address] Lorene Branch, MANAGER FRENCH 03/11/2024 9:15 AM FILER FINISH Appointment [facility]hab [address] [place] [address] [place] [address] [place] [address] Lorene Branch, MANAGER FRENCH 03/15/2024 9:00 AM FILER FINISH Appointment [facility] [address] [place] [address] [place] [address] [place] [address] Lorene Branch, MANAGER FRENCH 03/18/2024 9:15 AM FILER FINISH Appointment [facility] Outpatient Rehab [address] [place] [address], [place] [address] [place] [address] [place] [address] Lorene Branch, MANAGER FRENCH 03/22/2024 9:00 AM FILER FINISH Appointment [facility]hab [address] [place] [address] [place] [address] [place] [address] Lorene Branch, MANAGER FRENCH 03/25/2024 9:15 AM FILER FINISH Appointment [facility] [address] [place] [address] [place] [address] [place], [place] [phone] Lorene Branch, MANAGER FRENCH 04/21/2024 11:20 AM FILER FINISH Office Visit [facility] Family [facility] [address] [place] [phone] [place] [address] [place] [address] Scheduled Procedures Name Priority Associated Diagnoses Date/Ti me MANIPULATION SHOULDER Adhesive capsulitis of left shoulder 03/02/2024 12:27 PM FILER FINISH INJECTION JOINT Adhesive capsulitis of left shoulder 03/02/2024 12:27 PM FILER FINISH Health Maintenance Due Date Last Done Comments Cervical Cancer Screening Pap Smear (Age 30 to 64) Every 3 Years 1973 Colorectal Cancer Screening Colonoscopy (10 Years) 1973 Kidney Health Evaluation 1973 Lipid Panel 1973 Annual Physical 1976 Diabetes: Retinopathy Eye Exam 09/11/1991 Hepatitis C 09/11/1991 DTaP, Tdap and Td Vaccines (1 - Tdap) 1992 Hepatitis B Vaccines (1 of 3 - 19+ 3-dose series) 1992 Cervical Cancer Screening Pap with HPV Testing (Age 30 to 64) Every 5 Years 09/11/2003 Cervical Cancer Screening with HPV 09/11/2003 Pneumococcal Vaccine: Pediatrics (0 to 5 Years) and At-Risk Patients (6 to 64 Years) (2 of 2 - PCV) 11/27/2019 11/26/2018 Mammogram Screening 06/19/2020 06/19/2018 Zoster Vaccines (1 of 2) 09/11/2023 COVID-19 Vaccine (3 - season) 2023 06/27/2020, 06/06/2020 Influenza Adult (#1) 2023 01/12/2020, 01/12/2020, 11/26/2018, Additional history exists Hemoglobin A1C 06/21/2024 12/22/2023, 05/26, 03/18/2023 Meningococcal Vaccine Aged Out No mariana maykel eligible based on patient's age to complete this topic RSV Immunizations Under 20 Months Aged Out No longer eligible based on patient's age to complete this topic Procedures Procedure Name Priority Date/Time Associated Diagnosis Comments TSH W/REFLEX Routine 02/09/2024 9:50 AM FILER FINISH Post concussion syndrome Muscle spasm Vitamin D deficiency Type 2 diabetes mellitus without complications ([facility]) VITAMIN D, 25 OH Routine 02/09/2024 9:50 AM FILER FINISH Vitamin D deficiency MAGNESIUM STAT 02/09/2024 9:50 AM FILER FINISH Post concussion syndrome Muscle spasm CBC W/DIFF AUTOMATED STAT 02/09/2024 9:50 AM FILER FINISH Post concussion syndrome Muscle spasm COMPREHENSIVE METABOLIC PANEL STAT 02/09/2024 9:50 AM FILER FINISH Muscle spasm ECG 12-LEAD Routine 12/29/2023 1:41 PM FILER FINISH Adhesive capsulitis of left shoulder ART positive Type 2 diabetes mellitus without complication, without long-term current use of insulin ([facility]) CORONAVIRUS (COVID-19) INFLUENZA A & B ANTIGEN IA PANEL Routine 12/29/2023 Bronchitis Suspected COVID-19 virus infection COLLECT.CAPILLARY (FNGR,HEEL,EAR) Routine 12/22/2023 2:01 PM CDT Type 2 diabetes mellitus without complication, without long-term current use of insulin ([facility]) HEMOGLOBIN, GLYCOSYLATED Routine 12/22/2023 Type 2 diabetes mellitus without complication, without long-term current use of insulin ([facility]) MRI CERV SPINE WO CON Routine 12/10/2023 2:35 PM CDT Radiculopathy of cervicothoracic region Numbness and tingling in left arm from Last 3 Months Results * TSH W/REFLEX (02/09/2024 9:50 AM FILER FINISH) TSH 0.761 0.358 - 3.74 uIU/ML 02/09/2024 11:36 AM FILER FINISH [facility] Comment: HIGH DOSES OF BIOTIN MAY INTERFERE WITH THIS TEST RESULT. CORRELATION TO CLINICAL HISTORY AND PRESENTATION RECOMMENDED. FREE T4 NOT INDICATED 02/09/2024 9:50 AM FILER FINISH us [facility] Final Result [facility] [address] [place] [address], [place] [phone] * (ABNORMAL) COMPREHENSIVE METABOLIC PANEL (02/09/2024 9:50 AM FILER FINISH) GLUCOSE 90 70 - 99 MG/DL 02/09/2024 10:20 AM FILER FINISH [facility] BUN 14 7 - 18 MG/DL 02/09/2024 10:20 AM FILER FINISH [facility] CREATININE S/P/B 0.63 0.55 - 1.02 MG/DL 02/09/2024 10:20 AM FILER FINISH [facility] SODIUM S/P/B 141 136 - 145 MMOL/L 02/09/2024 10:[address] [facility] POTASSIUM S/P/B 4.1 3.5 - 5.1 MMOL/L 02/09/2024 10:[address] [facility] CHLORIDE S/P/B 107 100 - 108 MMOL/L 02/09/2024 10:[address] [facility] CO2 25.3 21 - 32 MMOL/L 02/09/2024 10:[address] [facility] CALCIUM S/P/B 9.1 8.5 - 10.1 MG/DL 02/09/2024 10:[address] [facility] BILIRUBIN TOTAL S/P/B 1.2 0.2 - 1.2 MG/DL 02/09/2024 10:[address] [facility] TOTAL PROTEIN S/P/B 7.9 6.4 - 8.2 G/DL 02/09/2024 10:[address] [facility] ALBUMIN S/P/B 3.8 3.4 - 5.0 G/DL 02/09/2024 10:[address] [facility] AST 35 15 - 37 U/L 02/09/2024 10:[address] [facility] ALT 49 14 - 55 U/L 02/09/2024 10:[address] [facility] ALKALINE PHOSPHATASE S/P/B 86 50 - 136 U/L 02/09/2024 10:[address] [facility] ANION GAP 8.7 5 - 15 MMOL/L 02/09/2024 10:[address] [facility] BUN CREATININE RATIO 22.2 6 - 26 02/09/2024 10:[address] [facility] A/G RATIO 0.9(L) 1.0 - 2.0 RATIO 02/09/2024 10:[address] [facility] GFR ESTIMATE >90 >90 ML/MIN/1.7 3 M2 02/09/2024 10:[address] [facility] Comment: NOTE: eGFR is not calculated for patients <18 years of age. This is an estimated GFR calculation using the new CKD EPI creatinine equation without race and so does not require a correction factor for race. This estimated GFR should not be used for calculating drug doses. 02/09/2024 9:50 AM FILER FINISH us [facility] Final Result [facility] [address] [place] [address], [place] [phone] * (ABNORMAL) CBC W/DIFF AUTOMATED (02/09/2024 9:50 AM FILER FINISH) WBC 7.25 4.4 - 11.0 x10'3/uL 02/09/2024 10:[address] [facility] RBC 4.92 4.50 - 5.10 x10'6/uL 02/09/2024 10:[address] [facility] HGB 13.9 12.3 - 15.3 G/DL 02/09/2024 10:[address] [facility] HCT 41.3 35.9 - 44.6 % 02/09/2024 10:[address] [facility] MCV 83.9 80.0 - 96.0 FL 02/09/2024 10:[address] [facility] MCH 28.3 25.3 - 30.9 PG 02/09/2024 10:[address] [facility] MCHC 33.7 31.0 - 34.1 G/DL 02/09/2024 10:[address] [facility] RDW 13.8 12.4 - 15.1 % 02/09/2024 10:[address] [facility] PLT 244 151 - 353 x10'3/uL 02/09/2024 10:[address] [facility] MPV 9.1(L) 9.6 - 12.0 FL 02/09/2024 10:[address] [facility] RBC MORPHOLOGY NORMAL 02/09/2024 10:[address] [facility] PLT MORPH. NORMAL 02/09/2024 10:[address] [facility] WBC MORPHOLOGY NORMAL 02/09/2024 10:[address] [facility] LYMPHOCYTES % 24.7 15.8 - 45.0 % 02/09/2024 10:[address] [facility] NEUTROPHILS % 59.3 42.1 - 71.9 % 02/09/2024 10:[address] [facility] MONOCYTES % 4.8(L) 5.7 - 12.5 % 02/09/2024 10:[address] [facility] EOSINOPHILS 10.3(H) 0.0 - 5.6 % 02/09/2024 10:[address] [facility] BASOPHILS 0.8 0.0 - 1.3 % 02/09/2024 10:[address] [facility] ABS. NEUTROPHILS 4.29 1.40 - 6.00 x10'3/uL 02/09/2024 10:[address] [facility] IMMATURE GRANS % 0.1 0.0 - 0.5 % 02/09/2024 10:[address] [facility] ABS. LYMPHOCYTES 1.79 0.80 - 4.70 x10'3/uL 02/09/2024 10:[address] [facility] 02/09/2024 9:50 AM FILER FINISH [facility] Final Result Performing Organization Address [facility] de Phone Number [facility] [address] [place] [address], [place] [phone] * (ABNORMAL) VITAMIN D, 25 OH (02/09/2024 9:50 AM FILER FINISH) VITAMIN D 25 HYDROXY S/P/B 15(L) 30 - 100 NG/ML 02/09/2024 10:43 AM FILER FINISH [facility] Comment: ? INTERPRETATION ? DEFICIENT ??<20 ? INSUFFICIENT 20-29 ?SUFFICIENT 30-100 02/09/2024 9:50 AM FILER FINISH us [facility] Final Result Performing Organization Address [facility] de Phone Number [facility] [address] [place] [address], [place] [phone] * MAGNESIUM (02/09/2024 9:50 AM FILER FINISH) Pathologist [facility] MAGNESIUM 1.9 1.8 - 2.4 MG/DL 02/09/2024 10:20 AM FILER FINISH [facility] 02/09/2024 9:50 AM FILER FINISH us [facility] Final Result Performing Organization Address [facility] Co de Phone Number [facility] [address] [place] [address], [place] [phone] * ECG 12 lead (12/29/2023 1:41 PM FILER FINISH) 12/29/2023 1:41 PM FILER FINISH Narrative [facility] [place] ([facility]) RAD - 12/30/2023 8:20 AM FILER FINISH ?[facility] ? Test Date: ?2023-12-29 Pat Name: ? OUMOU DOUBET ? Department: ?? 85 ? Room: ? Gender: ? Female ? [place] Man: ?? : ?1975 ? Requested By: IHSAN MACIAS Order Number: [id number] ? Reading MD: ?? Blue Paul ? Measurements Intervals ?[place] ? Rate: ? 80 ? P: ?49 NC: ? 200 ?QRS: ?25 QRSD: ? 83 ? T: ?80 QT: ? 373 ? QTc: ?432 ? Interpretive Statements SINUS RHYTHM LOW QRS VOLTAGE IN PRECORDIAL LEADS ??[QRS DEFLECTION < 1.0 mV IN CHEST LEADS] No previous ECG available for comparison R FINISH Procedure Note Blue Paul MD - 12/30/2023 [facility] Test Date: 2023-12-29 Pat Name: OUMOU MIDDLETON Department: 85 Room: Gender: Female [place] Man: : 1975 Requested By: IHSAN MACIAS Order Number: [id number] Loreta MD: Blue Paul Measurements Intervals [place]an Rate: 80 P: 49 NC: 200 QRS: 25 QRSD: 83 T: 80 QT: 373 QTc: 432 Interpretive Statements SINUS RHYTHM LOW QRS VOLTAGE IN PRECORDIAL LEADS [QRS DEFLECTION < 1.0 mV IN CHESTLEADS] No previous ECG available for comparison R FINISH us Ihsan Macias DO ECG ORDERABLES Final Result [facility] ([facility]) RAD * CORONAVIRUS (COVID-19) INFLUENZA A & B ANTIGEN IA PANEL (12/29/2023) CORONAVIRUS ANTIGEN IA NEGATIVE NEGATIVE -[address], [place] INFLUENZA A NEGATIVE NEGATIVE -[address], [place] INFLUENZA B NEGATIVE NEGATIVE -[address], [place] Internal Control: VALID VALID -[id number] [facility] [place] NASAL STRUCTURE / Unknown 12/29/2023 [facility] - GENERAL ORDER DORIS Final Result -[address], [place] [address] [place] [address], * A1C (BACK OFFICE) (12/22/2023) Pathologist [facility] HGB A1C 5.2 % -[address] [address] [facility] [place] 12/22/2023 [facility] Final Result Performing Organization Address [facility]/ZIP Co de Phone Number -[address], [place] [address] [place] [address], * MRI CERV SPINE WO CON (12/10/2023 2:35 PM CDT) Anatomical Region Laterality Modality Spine Magnetic Resonan ce 12/10/2023 3:45 PM CDT Impressions 12/10/2023 3:48 PM CDT IMPRESSION: 1. ??Small broad-based midline disc protrusion at C5/C6 causing minimal effacement of ventral thecal sac. ??No significant cervical central canal or neural foraminal stenosis. 2. ??No acute osseous abnormality or ligamentous injury. Referred By: IHSAN MACIAS Interpreted By: Morgan Borjas MD, 12/10/2023 3:45 PM Narrative 12/10/2023 3:48 PM CDT [facility] [address] [facility] [place] [address] EXAMINATION:MRI of the cervical spine without contrast 12/10/2023 INDICATION:Cervical pain, left upper extremity paresthesias TECHNIQUE: Multiplanar multisequence MR imaging of the cervical spine was performed without intravenous contrast. COMPARISON: None FINDINGS:Cervical spine is in anatomic alignment with preservation of vertebral body heights and disc spaces. ??Bone marrow signal is within normal limits with no acute fracture or dislocation. ??No ligamentous discontinuity or signal abnormality. Partially visualized intrarenal contents are unremarkable. ??The cervical spinal cord is unremarkable in course caliber contour and signal. ??No prevertebral edema. ??No paraspinal mass or fluid collection No stenosis at the foramen magnum or C1/C2 level C2/C3: Negative C3/C4: Negative C4/C5: Negative C5/C6: Small broad-based midline protrusion causing minimal effacement of ventral thecal sac. C6/C7: Negative C7/T1: Negative. Flow voids are noted within the carotid and vertebral arteries. ??The left vertebral artery is dominant. Procedure Note Morgan Borjas MD - 12/10/2023 [facility] [address] [facility] [place] [address] EXAMINATION:MRI of the cervical spine without contrast 12/10/2023 INDICATION:Cervical pain, left upper extremity paresthesias TECHNIQUE: Multiplanar multisequence MR imaging of the cervical spine wasperformed without intravenous contrast. COMPARISON: None FINDINGS:Cervical spine is in anatomic alignment with preservation ofvertebral body heights and disc spaces. Bone marrow signal is withinnormal limits with no acute fracture or dislocation. No ligamentousdiscontinuity or signal abnormality. Partially visualized intrarenal contents are unremarkable. The cervicalspinal cord is unremarkable in course caliber contour and signal. Noprevertebral edema. No paraspinal mass or fluid collection No stenosis at the foramen magnum or C1/C2 level C2/C3: Negative C3/C4: Negative C4/C5: Negative C5/C6: Small broad-based midline protrusion causing minimal effacement ofventral thecal sac. C6/C7: Negative C7/T1: Negative. Flow voids are noted within the carotid and vertebral arteries. The leftvertebral artery is dominant. IMPRESSION: 1. Small broad-based midline disc protrusion at C5/C6 causing minimaleffacement of ventral thecal sac. No significant cervical central canalor neural foraminal stenosis. 2. No acute osseous abnormality or ligamentous injury. Referred By: IHSAN MACIAS Interpreted By: Morgan Borjas MD, 12/10/2023 3:45 PM us Ihsanhayder Macias DO MRI Final Result from Last 3 Months Insurance [facility] MEDICAID Care Teams Highway Maintenance Supervisor Relationship Specialty [place] [address] [place] [address] PCP - General Physician [employer] 09/16/23
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
--- OUTSIDE RECORDS SUMMARY | 2024-02-12 03:27 | XMS_ITS | Encounter Summary ---
Author Organization [facility] Address [facility] [place] [place] [address] [place] [address] Care Team Providers Care Parts Counterman Name Role Phone Holger Soriano Primary Care Provider [phone] Encounter Details Date Type Department Care Team (Latest Contact Info) Description 02/09/2024 9:47 AM QUALITY ASSURANCE TESTER - 02/09/2024 11:59 PM [facility] Hospital Encounter [facility] [address] [place] [address] [place] [address] [place], [place] [phone] Arrived Discharge Disposition: Home or Self Care (Routine Discharge) Social History Tobacco Use Types Packs/Day Years Used Date Smoking Tobacco: Former Cigarettes Q uit: 03/18/2023 Passive Smoke Exposure: Current Smokeless Tobacco: Never Comments:na Alcohol Use Standard Drinks/Week Comments Yes [...] Orientation Straight 06/05/2023 1: 14 PM CDT documented as of this encounter Medications at Time of Discharge albuterol sulfate HFA 108 (90 Base) MCG/ACT inhalerIndication s:Acute cough,Wheezing Inhale 2 puffs into the lungs every 4 (four) hours as needed for Wheezing or Shortness of breath. 18 g 04/01/2023 cyclobenzaprine (FLEXERIL) 10 MG tablet Take 1 tablet (10 mg total) by mouth as needed. FOR MUSCLE SPASMS 12/22/2023 DULoxetine (CYMBALTA) 30 MG capsuleIndication s:Depression, unspecified depression type Take 1 capsule (30 mg total) by mouth daily. 180 capsule 1 09/16/2023 estradiol (ESTRACE) 2 MG tabletIndications :Menopausal and female climacteric states Take 1 tablet (2 mg total) by mouth daily. 90 tablet 01/20/2024 5 fluticasone propionate (FLONASE) 50 MCG/ACT nasal sprayIndications: Acute non-recurrent frontal sinusitis 2 sprays by Nasal route daily for 30 days. 2 puffs each nostril twice a day for 3 days, then 2 puffs each nostril daily 18.2 mL 1 01/20/2024 gabapentin (NEURONTIN) 300 MG capsuleIndication s:Chronic left shoulder pain Take 1 tablet in the morning and 2 tablets at night time. 90 capsule 1 01/20/2024 hydrOXYzine (ATARAX) 10 MG tablet Take 1 tablet (10 mg total) by mouth. 02/08/2024 meloxicam (MOBIC) 15 MG tabletIndications :Acute bilateral low back pain with bilateral sciatica TAKE 1 TABLET (15 MG TOTAL) BY MOUTH DAILY. 30 tablet 1 12/31/2023 nystatin (MYCOSTATIN) powderIndications :Intertrigo Apply topically 2 (two) times daily for 30 days. 60 g 3 01/20/2024 4 progesterone (PROMETRIUM) 100 MG capsuleIndication s:Menopausal and female climacteric states Take 1 capsule (100 mg total) by mouth daily. 90 capsule 01/20/2024 QUEtiapine (SEROQUEL) 100 MG tabletIndications :Bipolar I disorder with depression (CMS/HCC HHS/HCC) Take 1 tablet (100 mg total) by mouth nightly at bedtime. at bedtime 90 tablet 09/16/2023 semaglutide (OZEMPIC) 1 mg/dose injection (PEN)Indications: Diabetes Mellitus Inject 1 mg into the skin once a week. Indications: Diabetes 3 mL 3 11/19/2023 SUMAtriptan (IMITREX) 25 MG tabletIndications :Migraine with status migrainosus, not intractable, unspecified migraine type Take 1 tablet (25 mg total) by mouth daily as needed for Migraine. Max of 8 tablets (200 mg) in a 24 hour period. 30 tablet 2 11/28/2023 terconazole (TERAZOL 3) 0.8 % vaginal creamIndications: Acute vaginitis Place 1 applicator vaginally nightly at bedtime. 1 g 12/29/2023 documented as of this encounter Plan of Treatment Upcoming Encounters Date Type Department Care Team (Late st Contact Info) Description 02/12/2024 9:00 AM QUALITY ASSURANCE TESTER Appointment [facility] [id number] [place] [address] [place] [address] [place] [address] [place] [address] [place] [address] 02/12/2024 2:00 PM QUALITY ASSURANCE TESTER Appointment [address] [address] [place] [address] [place] [address] 02/16/2024 9:00 AM QUALITY ASSURANCE TESTER Appointment [facility] [address] [place] [address] [place] [address] [place] [address] [place] [address] [place] [address] 02/19/2024 8:45 AM QUALITY ASSURANCE TESTER Appointment [facility] [address] [place] [address] [place] [address] [place] [address] [place] [address] [place] [address] 02/19/2024 9:00 AM QUALITY ASSURANCE TESTER Appointment [facility] [address] [place] [address] [place] [address] [place] [address] [place] [address] [place] [address] 02/23/2024 9:00 AM QUALITY ASSURANCE TESTER Appointment [facility] [address] [place] [address] [place] [address] [place] [address] [place] [address] [place] [address] 02/24/2024 1:30 PM QUALITY ASSURANCE TESTER Appointment [address] [address] [place] [address] [place] [address] 02/26/2024 9:00 AM QUALITY ASSURANCE TESTER Appointment [facility] [address] [place] [address] [place] [address] [place] [address] [place] [address] [place] [address] 02/26/2024 9:15 AM QUALITY ASSURANCE TESTER Appointment [facility] [address] [place] [address] [place] [address] [place] [address] [place] [address] [place] [address] 03/01/2024 9:00 AM QUALITY ASSURANCE TESTER Appointment [facility] [address] [place] [address] [place] [address] [place] [address] [place] [address] [place] [address] Lorene Branch, COOPERATIVE MANAGER 03/02/2024 12:27 PM QUALITY ASSURANCE TESTER Hospital Encounter [facility] [id number] [place] [address] [place] [address] [place] [address] 03/02/2024 12:27 PM QUALITY ASSURANCE TESTER - 03/02/2024 1:07 PM QUALITY ASSURANCE TESTER Surgery [facility] [address] [place] [address] [place] [address] [place] [address] MANIPULATION SHOULDER 03/05/2024 9:00 AM QUALITY ASSURANCE TESTER Appointment [facility] [address] [place] [address] [place] [address] [place] [address] Lorene Branch, COOPERATIVE MANAGER 03/08/2024 9:00 AM QUALITY ASSURANCE TESTER Appointment [facility] [address] [place] [address] [place] [address] [place] [address] Lorene Branch, COOPERATIVE MANAGER 03/11/2024 9:15 AM QUALITY ASSURANCE TESTER Appointment [facility] [address] [place] [address] [place] [address] [place] [address] Lorene Branch, COOPERATIVE MANAGER 03/15/2024 9:00 AM QUALITY ASSURANCE TESTER Appointment [facility] [address] [place] [address] [place] [address] [place] [address] Lorene Branch, COOPERATIVE MANAGER 03/18/2024 9:15 AM QUALITY ASSURANCE TESTER Appointment [facility] [address] [place] [address] [place] [address] [place] [address] Lorene Branch, COOPERATIVE MANAGER 03/22/2024 9:00 AM QUALITY ASSURANCE TESTER Appointment [facility] [address] [place] [address] [place] [address] [place] [address] Lorene Branch, COOPERATIVE MANAGER 03/25/2024 9:15 AM QUALITY ASSURANCE TESTER Appointment [facility] [address] [place] [address] [place] [address] [place] [address] Lorene Branch, COOPERATIVE MANAGER 04/21/2024 11:20 AM QUALITY ASSURANCE TESTER Office Visit [facility] Family [facility] Internal [facility] [address] [place] [address] [place] [address] [place] [address] Scheduled Procedures Name Priority Associated Diagnoses Date/Ti me MANIPULATION SHOULDER Adhesive capsulitis of left shoulder 03/02/2024 12:27 PM QUALITY ASSURANCE TESTER INJECTION JOINT Adhesive capsulitis of left shoulder 03/02/2024 12:27 PM QUALITY ASSURANCE TESTER documented as of this encounter Procedures Procedure Name Priority Date/Time Associated Diagnosis Comments TSH W/REFLEX Routine 02/09/2024 9:50 AM QUALITY ASSURANCE TESTER Post concussion syndrome Muscle spasm Vitamin D deficiency Type 2 diabetes mellitus without complications ([facility]/HCC HHS/HCC) COMPREHENSIVE METABOLIC PANEL STAT 02/09/2024 9:50 AM QUALITY ASSURANCE TESTER Muscle spasm CBC W/DIFF AUTOMATED STAT 02/09/2024 9:50 AM QUALITY ASSURANCE TESTER Post concussion syndrome Muscle spasm VITAMIN D, 25 OH Routine 02/09/2024 9:50 AM QUALITY ASSURANCE TESTER Vitamin D deficiency MAGNESIUM STAT 02/09/2024 9:50 AM QUALITY ASSURANCE TESTER Post concussion syndrome Muscle spasm documented in this encounter Results * TSH W/REFLEX (02/09/2024 9:50 AM QUALITY ASSURANCE TESTER) TSH 0.761 0.358 - 3.74 uIU/ML 02/09/2024 11:36 [address] [facility] Comment: HIGH DOSES OF BIOTIN MAY INTERFERE WITH THIS TEST RESULT. CORRELATION TO CLINICAL HISTORY AND PRESENTATION RECOMMENDED. FREE T4 NOT INDICATED 02/09/2024 9:50 AM QUALITY ASSURANCE TESTER [facility] Final Result Performing Organization Address [facility] de Phone Number [facility] [address] [place] [address], * (ABNORMAL) VITAMIN D, 25 OH (02/09/2024 9:50 AM QUALITY ASSURANCE TESTER) VITAMIN D 25 HYDROXY S/P/B 15(L) 30 - 100 NG/ML 02/09/2024 10:43 AM QUALITY ASSURANCE TESTER [facility] Comment: ? INTERPRETATION ? DEFICIENT ??<20 ? INSUFFICIENT 20-29 ?SUFFICIENT 30-100 02/09/2024 9:50 AM QUALITY ASSURANCE TESTER [facility] Final Result Performing Organization Address [facility] Co de Phone Number [facility] [address] [place] [address], [place] [phone] * MAGNESIUM (02/09/2024 9:50 AM QUALITY ASSURANCE TESTER) Pathologist [facility] MAGNESIUM 1.9 1.8 - 2.4 MG/DL 02/09/2024 10:20 AM [facility] 02/09/2024 9:50 AM QUALITY ASSURANCE TESTER [facility] Final Result [facility] [address] [place] [address], * (ABNORMAL) CBC W/DIFF AUTOMATED (02/09/2024 9:50 AM QUALITY ASSURANCE TESTER) [facility] WBC 7.25 4.4 - 11.0 x10'3/uL 02/09/2024 10:06 AM [facility] RBC 4.92 4.50 - 5.10 x10'6/uL 02/09/2024 10:06 AM [facility] HGB 13.9 12.3 - 15.3 G/DL 02/09/2024 10:06 AM [facility] HCT 41.3 35.9 - 44.6 % 02/09/2024 10:06 AM [facility] MCV 83.9 80.0 - 96.0 FL 02/09/2024 10:06 AM [facility] MCH 28.3 25.3 - 30.9 PG 02/09/2024 10:06 AM [facility] MCHC 33.7 31.0 - 34.1 G/DL 02/09/2024 10:06 AM [facility] RDW 13.8 12.4 - 15.1 % 02/09/2024 10:06 AM [facility] PLT 244 151 - 353 x10'3/uL 02/09/2024 10:06 AM [facility] MPV 9.1(L) 9.6 - 12.0 FL 02/09/2024 10:06 AM [facility] RBC MORPHOLOGY NORMAL 02/09/2024 10:06 AM [facility] PLT MORPH. NORMAL 02/09/2024 10:06 AM [facility] WBC MORPHOLOGY NORMAL 02/09/2024 10:06 AM [facility] LYMPHOCYTES % 24.7 15.8 - 45.0 % 02/09/2024 10:06 AM [facility] NEUTROPHILS % 59.3 42.1 - 71.9 % 02/09/2024 10:06 AM [facility] MONOCYTES % 4.8(L) 5.7 - 12.5 % 02/09/2024 10:06 AM [facility] EOSINOPHILS 10.3(H) 0.0 - 5.6 % 02/09/2024 10:06 AM [facility] BASOPHILS 0.8 0.0 - 1.3 % 02/09/2024 10:06 AM [facility] ABS. NEUTROPHILS 4.29 1.40 - 6.00 x10'3/uL 02/09/2024 10:06 AM [facility] IMMATURE GRANS % 0.1 0.0 - 0.5 % 02/09/2024 10:06 AM [facility] ABS. LYMPHOCYTES 1.79 0.80 - 4.70 x10'3/uL 02/09/2024 10:06 AM [facility] 02/09/2024 9:50 AM QUALITY ASSURANCE TESTER us [facility] Final Result [facility] [address] [place] [address], [place] [phone] * (ABNORMAL) COMPREHENSIVE METABOLIC PANEL (02/09/2024 9:50 AM [facility]) [facility] GLUCOSE 90 70 - 99 MG/DL 02/09/2024 10:20 AM [facility] BUN 14 7 - 18 MG/DL 02/09/2024 10:20 AM [facility] CREATININE S/P/B 0.63 0.55 - 1.02 MG/DL 02/09/2024 10:20 AM [facility] SODIUM S/P/B 141 136 - 145 MMOL/L 02/09/2024 10:20 AM [facility] POTASSIUM S/P/B 4.1 3.5 - 5.1 MMOL/L 02/09/2024 10:20 AM [facility] CHLORIDE S/P/B 107 100 - 108 MMOL/L 02/09/2024 10:20 AM [facility] CO2 25.3 21 - 32 MMOL/L 02/09/2024 10:20 AM [facility] CALCIUM S/P/B 9.1 8.5 - 10.1 MG/DL 02/09/2024 10:20 AM [facility] BILIRUBIN TOTAL S/P/B 1.2 0.2 - 1.2 MG/DL 02/09/2024 10:20 AM [facility] TOTAL PROTEIN S/P/B 7.9 6.4 - 8.2 G/DL 02/09/2024 10:20 AM [facility] ALBUMIN S/P/B 3.8 3.4 - 5.0 G/DL 02/09/2024 10:20 AM [facility] AST 35 15 - 37 U/L 02/09/2024 10:20 AM [facility] ALT 49 14 - 55 U/L 02/09/2024 10:20 AM [facility] ALKALINE PHOSPHATASE S/P/B 86 50 - 136 U/L 02/09/2024 10:20 AM [facility] ANION GAP 8.7 5 - 15 MMOL/L 02/09/2024 10:20 AM [facility] BUN CREATININE RATIO 22.2 6 - 26 02/09/2024 10:20 AM [facility] A/G RATIO 0.9(L) 1.0 - 2.0 RATIO 02/09/2024 10:20 AM [facility] GFR ESTIMATE >90 >90 ML/MIN/1.7 3 M2 02/09/2024 10:20 AM [facility] Comment: NOTE: eGFR is not calculated for patients <18 years of age. This is an estimated GFR calculation using the new CKD EPI creatinine equation without race and so does not require a correction factor for race. This estimated GFR should not be used for calculating drug doses. 02/09/2024 9:50 AM QUALITY ASSURANCE TESTER us [facility] Final Result Performing Organization Address City/State/[facility] Co de Phone Number [facility] [address] [place] [address], [place] [phone] documented in this encounter Visit Diagnoses Diagnosis Frozen shoulder- Primary Adhesive capsulitis of shoulder Muscle spasm Spasm of muscle Post concussion syndrome Postconcussion syndrome Vitamin D deficiency Unspecified vitamin D deficiency Type 2 diabetes mellitus without complications (CMS/HCC HHS/HCC) Type II or unspecified type diabetes mellitus without mention of complication, not stated as uncontrolled Adhesive capsulitis of left shoulder Adhesive capsulitis of shoulder documented in this encounter Additional Health Concerns Assessment Noted Time PHQ-9 Depression Total Score: 24 024 3:24 PM CDT documented as of this encounter Care Teams Parts Counterman Relationship Specialty [place] [address] [place] [address] PCP - General Physician Ice Delivery Driver Medical 09/16/23 documented as of this encounter
--- OUTSIDE RECORDS SUMMARY | 2024-02-12 03:27 | XMS_ITS | Encounter Summary ---
Author Organization [facility] Address [address] [place] [address] Care Team Providers Care Oral Surgery Physician Name Role Phone Unavailable Primary Care Provider Unavailabl e Reason for Visit * Reason Comments Fall Pt fell yesterday mo rning at work and is having right hip, left shoulder and low back pain. Encounter Details Date Type Department Care Team (Late st Contact Info) Description 03/17/2010 12:40 AM [facility] - 03/17/2010 3:56 AM [facility] Emergency ER at [address] [address] Florentin Galvez MD [address] [place] [id number] Multiple joint pain; Fall from other slipping, tripping, or stumbling Discharge Disposition: Home or Self Care Social History Tobacco Use Types Packs/Day Years Used Date Smoking Tobacco: Every Day Smokeless Tobacco: Never Alcohol Use Standard Drinks/Week Comments No 0 (1 standard drink = 0.6 oz pur e alcohol) Sex and Gender Information Value Date Recorded Sex Assigned at Not on file Gender Identity Not on file Sexual Orientation Not on file documented as of this encounter Last Filed Vital Signs Vital Sign Reading Time Taken Comments Blood Pressure 136/85 03/17/2010 12:47 AM [facility] Pulse 84 03/17/2010 12:47 AM [facility] Temperature 36.4 ??C (97.6 ??F) 03/17/2010 12:[address] Respiratory Rate 20 03/17/2010 12:47 AM [facility] Oxygen Saturation 100% 03/17/2010 12:47 AM [facility] Inhaled Oxygen Concentration - - Weight 111.1 kg (245 lb) 03/17/2010 12:47 AM [facility] Height 157.5 cm (5' 2 ) 03/17/2010 12:47 AM [facility] Body Mass Index 44.81 03/17/2010 12:47 AM [facility] documented in this encounter Discharge Instructions * Discharge Instructions* Jaja Faye Rubin Girard-, POSITION CLASSIFICATION MANAGER - 03/17/2010 3:02 AM [facility] Myalgia, Muscle Pain Myalgia is the medical term for muscle pain. It is a symptom of many things. Nearly everyone at some time in their life has this. The most common cause for muscle pain is overuse or straining and more so when you are not in shape. Injuries and muscle bruises cause myalgias. Muscle pain without a history of injury can also be caused by a virus. It frequently comes along with the flu. Myalgia not caused by muscle strain can be present in a large number of infectious diseases. Some autoimmune diseases like lupus and fibromyalgia can cause muscle pain. Myalgia may be mild, or severe. SYMPTOMS The symptoms of myalgia are simply muscle pain. Most of the time this is short lived and the pain goes away without treatment. DIAGNOSIS Myalgia is diagnosed by your caregiver by taking your history. This means you tell him when the problems began, what they are, and what has been happening. If this has not been a bed bug exterminator problem, your caregiver may want to watch for a while to see what will happen. If it has been assisted, they may want to do additional testing. TREATMENT The treatment depends on what the underlying cause of the muscle pain is. Often anti-inflammatory medications will help. HOME CARE INSTRUCTIONS ?? If the pain in your muscles came from overuse, slow down your activities until the problems go away. ?? Myalgia from overuse of a muscle can be treated with alternating hot and cold packs on the muscle affected or with cold for the first couple days. If either heat or cold seems to make things worse, stop their use. ?? Apply ice to the sore area for 15 to 20 minutes four times per day while awake for the first 2 days of muscle soreness, or as directed. Put the ice in a plastic bag and place a towel between the bag of ice and your skin. ?? Only take evzb-yrq-cbfteth or prescription medicines for pain, discomfort, or fever as directed by your caregiver. ?? Regular gentle exercise may help if you are not active. ?? Stretching before strenuous exercise can help lower the risk of myalgia. It is normal when beginning an exercise regimen to feel some muscle pain after exercising. Muscles that have not been used frequently will be sore at first. If the pain is extreme, this may mean injury to a muscle. seek medical care if: ?? You have an increase in muscle pain that is not relieved with medication. ?? You begin to run a temperature. ?? You develop nausea and vomiting. ?? You develop a stiff and painful neck. ?? You develop a rash. ?? You develop muscle pain after a tick bite. ?? You have continued muscle pain while working out even after you are in good condition. seek immediate medical care if: Any of your problems are getting worse and medications are not helping. MAKE SURE YOU: ?? Understand these instructions. ?? Will watch your condition. ?? Will get help right away if you are not doing well or get worse. Document Released: 03/01/2008 Document Re-Released: 05/09/2009 ExitCare?? Patient Information ??2010 [employer]. Musculo-Skeletal Pain You have muscle and andrea aches and pains. These pains can occur in any part of the body. There is often not a definite cause or reason for these pains. Your caregiver may treat you without knowing the cause of the pain. They may treat you if laboratory (blood or urine), x-ray, and other tests werenormal. These pains may be caused by a virus. The discomfort may also come from overuse. Overuse includes working out too hard when your body is not fit. Andrea aches also come from weather changes. Bone is sensitive to atmospheric pressure changes. It is important to follow up with you caregiver if you have a painful condition and no reason can be found for the pain. If the pain becomes worse or does not go away, it may be necessary to repeat tests or do additional testing. Your caregiver may need to look further for a possible cause. HOME CARE INSTRUCTIONS ?? Only take oldw-ywc-nnvbbqq or prescription medicines for pain, discomfort, or fever as directed by your caregiver. ?? For the protection of your privacy, test results can not be given over the phone. Make sure you receive the results of your test. Ask as to how these results are to be obtained if you have not been informed. It is your responsibility to obtain your test results. ?? You may continue all activities unless the activities cause more pain. When the pain lessens, itis important to gradually resume normal activities. Resume activities by beginning slowly. Gradually increase the intensity and duration of the activities or exercise. During periods of severe pain, bed rest may be helpful. Lay or sit in any position that is comfortable. ?? Ice used for acute (sudden) conditions may be effective. Use a large plastic bag filled with iceand wrapped in a towel. This may provide pain relief. If ice is not helpful, try applying heat. This may provides comfort. Use ice or heat for thirty minutes four times per day. Do not sleep with a heating pad. If you are diabetic, do not use a heating pad unless instructed to do so. ?? See your caregiver for continued problems. They can help or refer you for exercises or physical therapy if necessary. If given medications for your condition do not drive, operate machinery or power tools, or sign legal documents for 24 hours. Do not drink alcohol. Do not take sleeping pills or other medications that may interfere with treatment. SEEK IMMEDIATE MEDICAL CARE IF ?? You have pain that is getting worse and is not relieved by medications. ?? You develop chest pain that is associated with shortness or breath, sweating, nausea, or vomiting. ?? Your pain becomes localized to the abdomen. ?? You develop any new symptoms that seem different or that concern you. MAKE SURE YOU: ?? Understand these instructions. ?? Will watch your condition. ?? Will get help right away if you are not doing well or get worse. Document Released: 02/10/2006 Document Re-Released: 01/23/2009 ExitCare?? Patient Information ??2009 [employer]. [facility] * Discharge Instructions* Document, Scanned - 03/17/2010 8:33 AM [facility] documented in this encounter Medications at Time of Discharge Medication Sig Dispensed Refills Start Date End Date cyclobenzaprine (FLEXERIL) 10 MG tablet Take 1 Tab by mouth 3 times daily as needed for Muscle Spasms for 5 days. 15 Tab 0 03/17/2010 03/22/2010 ibuprofen (MOTRIN) 800 MG tablet Take 1 Tab by mouth every 8 hours as needed for Pain (with food). 20 Tab 0 03/17/2010 08/12/2010 traMADol (ULTRAM) 50 MG tablet Take 1 Tab by mouth 2 times daily as needed for Pain. 20 Tab 0 03/17/2010 08/12/2010 documented as of this encounter ED Notes * Pamella Nieto RN - 03/17/2010 2:38 AM CST Patient returned from radiology at this time. [facility] * Liam Laird - 03/17/2010 2:08 AM CST HCG performed in order for xray to run procedures. [facility] * Liam Laird - 03/17/2010 2:08 AM CST HCG test negative. [facility] * Pamella Nieto RN - 03/17/2010 1:55 AM CST Guardian returned call with 20 minute ETA. [facility] * Pamella Nieto RN - 03/17/2010 1:47 AM CST Guardian notified at this time. [facility] * Jaja Faye-, LEONILA - 03/17/2010 1:04 AM CST Images from the original note were not included. 03/17/2010 1:04 AM Oumou Middleton [id number] [facility] EMERGENCY DEPARTMENT History Chief Complaint Patient presents with ??? Fall Pt fell yesterday morning at work and is having right hip, left shoulder and low back pain. HPI Comments: Pt in with left shoulder, right hip, and lower back pain. After the fall last night on ice. Pt states continue to work soon after the fall, then pain worse today so came in for evaluation. Denies of LOC. Trauma The history is provided by the patient. Episode onset: yesterday. She came to the ER via personal transport. She was found alert by EMS personnel. Incident location: at work. There was no loss of consciousness. The current glascow coma score is 15.Body Location: right hip, lower back and left shoulder pain.The amount of blood lost was moderate. The pain has been constant since the injury. The pain is moderate. Pertinent negatives include no abdominal pain, no chest pain, no disorientation, no numbness, no shortness of breath, no tingling or no visual change.The police were not notified of theincident.The fall occurred walking.She fell from a height of 1 - 2 ft. The point of impact was the left side. She landed on concrete. She was ambulatory at the scene.There was no entrapment after thefall. Past Medical History Diagnosis Date ??? ASTHMA Past Surgical History Procedure Date ??? Adenoidectomy History Social History ??? Marital Status: Spouse Name: N/A Number of Children: N/A ??? Years of Education: N/A Occupational History ??? Not on file. Social History Main Topics ??? Smoking status: Current Everyday Smoker ??? Smokeless tobacco: Never Used ??? Alcohol Use: No ??? Drug Use: No ??? Sexually Active: Not on file Other Topics Concern ??? Not on file Social History Narrative ??? No narrative on file Medications Current outpatient prescriptions Medication Sig Dispense Refill ??? ibuprofen (MOTRIN) 800 MG tablet Take 1 Tab by mouth every 8 hours as needed for Pain (with food). 20 Tab 0 ??? cyclobenzaprine (FLEXERIL) 10 MG tablet Take 1 Tab by mouth 3 times daily as needed for Muscle Spasms for 5 days. 15 Tab 0 ??? traMADol (ULTRAM) 50 MG tablet Take 1 Tab by mouth 2 times daily as needed for Pain. 20 Tab 0 Review of Systems Respiratory: Negative for shortness of breath. Cardiovascular: Negative for chest pain. Gastrointestinal: Negative for abdominal pain. Musculoskeletal: Positive for back pain and joint pain. Has left shoulder, right hip, and lower back pain Neurological: Negative for tingling and numbness. All other systems reviewed and are negative. BP 136/85 Pulse 84 Temp 97.6 ??F Resp 20 Ht 5' 2 (1.575 m) Wt 245 lb (111.131 kg) [id number]% Physical Exam Constitutional: She is oriented to person, place, and time. Morbidly obese white female c/o multiple areas of pain from falling last night. Neck: Normal range of motion. Neck supple. Cardiovascular: Normal rate and regular rhythm. Pulmonary/Chest: Effort normal and breath sounds normal. Abdominal: Soft. Bowel sounds are normal. Musculoskeletal: Normal range of motion. She exhibits tenderness. She exhibits no edema. Arms: Legs: Left shoulder : has limited ROM to all directions due to pain. No visible abnormal findings. Has pain to right posterior hip on palpation and on flexion of the right hip. Has pain to lower back on palpation. No visible abnormal findings. Neurological: She is alert and oriented to person, place, and time. Gait normal. GCS score is 15. Skin: Skin is warm and dry. Procedures Procedures EKG Interpretation Lab/SPO2 Interpretation XR LUMBAR SPINE 2 OR 3 VW (Results Pending) XR HIP 2+ VW RIGHT (Results Pending) XR SHOULDER 2+ VW LEFT (Results Pending) Medical Decision Making I have reviewed the: Nursing Notes and Vitals. I have interpreted the following results: X-Ray. Progress Notes Pt ambulated to bathroom with even steady gait with no limping. ED Plan/Course: Pt to f/u with PMD or work comp doctor or referred doctor in 3-5 days for re-evaluation Xrays to left shoulder, right hip, and s pine: unremarkable Pain meds Rx provided with discharge instruction Clinical Impression Encounter Diagnoses Name Primary? Multiple joint pain ??? Fall from other slipping, tripping, or stumbling [facility] documented in this encounter Miscellaneous Notes * Miscellaneous Scans - Document, Scanned - 03/17/2010 8:38 AM [facility] documented in this encounter Plan of Treatment Not on file documented as of this encounter Procedures Procedure Name Priority Date/Time Associated Diagnosis Comments XR LUMBAR SPINE 2 OR 3VW STAT 03/17/2010 2:32 AM [facility] XR SHOULDER LEFT 2VW OR MORE STAT 03/17/2010 2:31 AM [facility] XR HIP RIGHT 2VW OR MORE STAT 03/17/2010 2:30 AM [facility] HCG URINE QUALITATIVE - POINT OF CARE STAT 03/17/2010 2:06 AM [facility] documented in this encounter Results * XR LUMBAR SPINE 2 OR 3 VW (03/17/2010 2:32 AM [facility]) Anatomical Region Laterality Modality Spine Radiographic Evelyn ging 03/17/2010 9:01 AM [facility] Impressions 03/17/2010 10:00 AM [facility] No acute osseous abnormality. Narrative 03/17/2010 10:00 AM [facility] LUMBOSACRAL SPINE 2 VIEWS INDICATION: ??Low back pain, trauma and injury. FINDINGS: AP and lateral views of the lumbar spine show mild endplate degenerative changes. There is no acute fracture, subluxation or dislocation. Procedure Note Nakul Hopkins MD - 03/17/2010 LUMBOSACRAL SPINE 2 VIEWS INDICATION: Low back pain, trauma and injury. FINDINGS: AP and lateral views of the lumbar spine show mild endplate degenerative changes. There is no acute fracture, subluxation or dislocation. IMPRESSION No acute osseous abnormality. Jaja Christopher INDUSTRIAL AUTOMATION SPECIALIST-[employer]ANCHISE BUSINESS CONSULTANT DIAGNOSTIC IMAGING ORDERABLES * XR SHOULDER 2+ VW LEFT (03/17/2010 2:31 AM [facility]) Anatomical Region Laterality Modality Upper Extremity Radiographic Evelyn ging 03/17/2010 9:00 AM [facility] Impressions 03/17/2010 10:00 AM [facility] No acute osseous abnormality. Narrative 03/17/2010 10:00 AM [facility] LEFT SHOULDER 2 VIEWS INDICATION: ??Left shoulder [...] IMPRESSION No acute osseous abnormality. So Samuel [facility] ORDERABLES * XR HIP 2+ VW RIGHT (03/17/2010 2:30 AM [facility]) Anatomical Region Laterality Modality Pelvis, Lower Extremity Radiogra phic Imaging 03/17/2010 9:01 AM [facility] Impressions 03/17/2010 10:00 AM [facility] ??No acute osseous abnormality. Narrative 03/17/2010 10:00 AM [facility] RIGHT HIP 2 VIEWS INDICATION: ??Right hip [...] - POINT OF CARE (03/17/2010 2:06 AM [facility]) HCG Qual Urine neg Negative [facility] POCT TESTING QC Verified yes Yes [facility] POC T TESTING Urine specimen (specimen) URINE / Unknown 03/17/2010 2:06 AM [facility] So Samuel Christopher [facility] - POIN T OF CARE ORDERABLES [facility] POCT TESTING [id number] [place] [address] documented in this encounter Visit Diagnoses Diagnosis Multiple joint pain Pain in joint, multiple sites Fall from other slipping, tripping, or stumbling Fall Unspecified fall documented in this encounter Administered Medications Inactive Administered Medications - up to 3 most recent administrations Medication Order MAR Action Action Date Dose Rate Site cyclobenzaprine (FLEXERIL) tablet 10 mg 10 mg, Oral, ONCE, 1 dose, On 03/17/10 at 0200 $ Given 03/17/2010 2:05 AM [facility] 10 mg ketorolac (TORADOL) 30 mg/ml injection ADS Med 1 dose, Starting on 03/17/10 at 0200, Until 03/17/10 at 0205, PAMELLA NIETO: Cabinet Override . WASTE DISPOSAL INSTRUCTIONS: Black Bin Disposal required. . ketorolac (TORADOL) injection 60 mg 60 mg, Intramuscular, ONCE, 1 dose, On 03/17/10 at 0200, . WASTE DISPOSAL INSTRUCTIONS: Black Bin Disposal required. . $ Given 03/17/2010 2:05 AM [facility] 60 mg documented in this encounter Active and Recently Administered Medications Times are shown in [facility]. Scheduled Medication Order 03/15/2010 03/16/2010 03/17/2010 cyclobenzaprine (FLEXERIL) tablet 10 mg (COMPLETED) 10 mg, Oral, ONCE, 1 dose, On 03/17/10 at 0200 0205 ($ Given - Prov ider: Pamella Nieto, RN) ketorolac (TORADOL) injection 60 mg (COMPLETED) 60 mg, Intramuscular, ONCE, 1 dose, On 03/17/10 at 0200, . WASTE DISPOSAL INSTRUCTIONS: Black Bin Disposal required. . 0205 ($ Given - Prov ider: Pamella Nieto, RN) documented in this encounter
--- OUTSIDE RECORDS SUMMARY | 2024-02-12 03:27 | XMS_ITS | Encounter Summary ---
Author Organization [facility] Address [address] [place] [address] Care Team Providers Care Account Collector Name Role Phone Unavailable Primary Care Provider Unavailabl e Reason for Visit * Reason Onset Date Comments Follow-up 01/20/2019 Encounter Details Date Type Department Care Team (Late st Contact Info) Description 01/20/2019 Telephone [facility] [place] [facility] [address] [id number] Britt Santillan Follow-up Social History Tobacco Use Types Packs/Day Years [...]
--- OUTSIDE RECORDS SUMMARY | 2024-02-12 03:27 | XMS_ITS | Encounter Summary ---
Author Organization [facility] Address [address] [place] [address] Care Team Providers Care Semiconductor Manufacturing Technician Name Role Phone Wilmer Carnes MD Primary Care Provider [phone] Reason for Visit * Reason Comments Establish Care +ART, joint pain Encounter Details Date Type Department Care Team (Late st Contact Info) Description 01/16/2021 2:40 PM CURRICULUM MANAGER Office Visit [facility] - Rheumatology [address], [address] [place] [address] Walter Schaefer DO [address] [place] [address] 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) (Primary Dx); Elevated liver enzymes; ART positive Social History Tobacco Use Types Packs/Day Years [...] Sign Reading Time Taken Comments Blood Pressure 110/60 01/16/2021 2:48 PM CURRICULUM MANAGER Pulse 90 01/16/2021 2:48 PM CURRICULUM MANAGER Temperature 36.1 ??C (97 ??F) 01/16/2021 2:48 PM CURRICULUM MANAGER Respiratory Rate 16 01/16/2021 2:48 PM CURRICULUM MANAGER Oxygen Saturation 94% 01/16/2021 2:48 PM CURRICULUM MANAGER Inhaled Oxygen Concentration - - Weight 93.4 kg (206 lb) 01/16/2021 2:48 PM CURRICULUM MANAGER Height 157.5 cm (5' 2 ) 01/16/2021 2:48 PM CURRICULUM MANAGER Body Mass Index 37.68 01/16/2021 2:48 PM CURRICULUM MANAGER documented in this encounter Patient Instructions * Patient Instructions* Silvano DO Walter - 01/16/2021 3:23 PM CURRICULUM MANAGER Images from the original note were not included. Patient Education Rheumatoid Arthritis CLIENT SERVICES MANAGER: Rheumatoid arthritis is a long-term autoimmune disease that causes inflammation and damage to your joints. RA causes your body's immune system to attack the synovial membrane (lining) in your joints.RA can also affect other organs, such as your eyes, heart, or lungs. It may also increase your riskof osteoporosis (weakened bones). Common symptoms include the following: ?? Joint pain and stiffness that lasts longer than 1 hour ?? Swollen joints in the same joint on both sides of your body ?? Loss of joint movement ?? Firm, round nodules (growths) on your joints ?? Fatigue or muscle weakness ?? Loss of appetite or weight loss Call your doctor or casting house worker if: ?? You have a fever. ?? You have increased joint swelling, pain, or redness. ?? Your skin is itchy, swollen, or has a rash. ?? Your symptoms are getting worse, even with treatment. ?? You have questions or concerns about your condition or care. Treatment: The goal of treatment within the first year is remission (no pain or inflammation). If full remission cannot be reached, the goal is as few arthritis flares as possible. Early treatment can also help prevent or slow joint damage. Treatment may change after the first year, depending on how your body responds. ?? Antirheumatics help slow the progress of RA, and reduce pain, stiffness, and inflammation. ?? NSAIDs , such as ibuprofen, help decrease swelling, pain, and fever. This medicine is available with or without a doctor's order. NSAIDs can cause stomach bleeding or kidney problems in certain people. If you take blood thinner medicine, always ask your healthcare provider if NSAIDs are safe foryou. Always read the medicine label and follow directions. ?? Steroids help decrease inflammation. ?? Biologic therapy helps decrease joint swelling, pain, and stiffness. These medicines increase the risk of serious infection and need careful monitoring. ?? Surgery may be needed to remove all or part of your joint. An implant may be placed to help reduce pain and repair the joint. Manage your symptoms: ?? Rest when needed. Rest is important if your joints are painful. Limit your activities until yoursymptoms improve. Gradually start your normal activities when you can do them without pain. Avoid motions and activities that cause strain on your joints, such as heavy exercise and lifting. ?? Use ice or heat. Both can help decrease swelling and pain. Ice may also help prevent tissue damage. Use an ice pack, or put crushed ice in a plastic bag. Cover it with a towel and place it on yourjoint for 15 to 20 minutes every hour or as directed. You can apply heat for 20 minutes every 2 hours. Heat treatment includes hot packs, heat lamps, warm baths, or showers. ?? Elevate your joint. Elevation helps reduce swelling and pain. Raise your joint above the level of your heart as often as you can. Prop your painful joint on pillows to keep it above your heart comfortably. Manage RA: ?? Talk to your healthcare providers about your arthritis medicines. Some medicines may only be needed when you have arthritis pain. You may need to take other medicines every day to prevent arthritis from getting worse. Your healthcare providers will help you understand all your medicines and whento take them. It is important to take the medicines as directed, even if you start to feel better. You can continue to have joint damage and inflammation even if you do not feel it. ?? Eat a variety of healthy foods. Healthy foods include fruits, vegetables, whole-grain breads, low-fat dairy products, beans, lean meats, and fish. Ask if you need to be on a special diet. A diet rich in calcium and vitamin D may decrease your risk of osteoporosis. Foods high in calcium include milk, cheese, broccoli, and tofu. Vitamin D may be found in meat, fish, fortified milk, cereal and bread. Ask if you need calcium or vitamin D supplements. ?? Maintain a healthy weight. This may help decrease strain on joints in your back, knees, ankles, and feet. Ask your healthcare provider what a healthy weight is for you. Ask him or her to help you create a weight loss plan if you are overweight. Exercise can help you maintain a healthy weight. ?? Go to physical or occupational therapy as directed. Physical activity can help relieve pain and stiffness. A physical therapist can teach you exercises to improve flexibility and range of motion. You may also be shown ldh-axxyyx-qdavcnf exercises that are safe for your joints, such as swimming. An occupational therapist can help you learn to do your daily activities when your joints are stiff or sore. ?? Do not smoke. Nicotine and other chemicals in cigarettes and cigars can damage your bones and joints. Ask your healthcare provider for information if you currently smoke and need help to quit. E-cigarettes or smokeless tobacco still contain nicotine. Talk to your healthcare provider before you use these products. RA medicines and : ?? Men: Talk to your doctor about your RA and the medicines you take. Some medicines may keep your partner from getting . Talk to your doctor if you and your partner are discussing . ?? Women: Talk to your vocational rehabilitation administrator about contraceptives. Tell him or her about your RA and what medicines you take. He or she will tell you what the best contraceptive for will be. Not all contraceptives are effective if you have RA and are taking certain medicines. You may not be able to breastfeed if you are taking certain RA medicines. Support devices to help manage arthritis: ?? Orthotic shoes or insoles help support your feet when you walk. ?? Crutches, a cane, or a walker may help decrease your risk for falling. They also decrease stresson affected joints. ?? Devices to prevent falls include raised toilet seats and bathtub bars to help you get up from sitting. Handrails can be placed in areas where you need balance and support. ?? Devices to help with support and rest include splints to wear on your hands and a firm pillow while you sleep. Use a pillow that is firm enough to support your neck and head. Ask your healthcare provider about vaccines: RA or its treatment may increase your risk for infections. Vaccines can help protect you from infections caused by certain bacteria or viruses. Follow up with your healthcare provider as directed: Write down your questions so you remember to ask them during your visits. ?? Copyright [employer] 2020 Information is for End User's use only and may not be sold, redistributed or otherwise used for commercial purposes. All illustrations and images included in CareNotes?? are the copyrighted property of [employer] or [employer] The above information is an congressional aide only. It is not intended as medical advice for individual conditions or treatments. Talk to your doctor, nurse or pharmacist before following any medical regimen to see if it is safe and effective for you. Patient Education Hydroxychloroquine (By mouth) Hydroxychloroquine (zfe-cmhq-vt-YQUN-gu-cxuh) Prevents and treats malaria. Also treats lupus and arthritis. Also treats coronavirus (COVID-19) incertain hospitalized patients. Brand Name(s): Plaquenil There may be other brand names for this medicine. When This Medicine Should Not Be Used: This medicine is not right for everyone. Do not use it if you had an allergic reaction to hydroxychloroquine or similar medicines. This medicine may increase your risk of heart rhythm problems (including QT prolongation, ventricular fibrillation, ventricular tachycardia). Hydroxychloroquine should only be used for COVID-19 in a hospital or during clinical trials. Do not take any medicine that contains hydroxychloroquine unless prescribed by your doctor. How to Use This Medicine: Tablet ?? Your doctor will tell you how much medicine to use. Do not use more than directed. ?? Swallow the tablet whole. Do not crush, break, or chew it. It is best to take this medicine withfood or milk. ?? Take all of the medicine in your prescription to clear up your infection, even if you feel better after the first few doses. ?? Missed dose: Take a dose as soon as you remember. If it is almost time for your next dose, wait until then and take a regular dose. Do not take extra medicine to make up for a missed dose. ?? Store the medicine in a closed container at room temperature, away from heat, moisture, and direct light. Drugs and Foods to Avoid: Ask your doctor or pharmacist before using any other medicine, including ljvk-mwz-llffpgx medicines, vitamins, and herbal products. ?? Some medicines can affect how hydrochloroquine works. Tell your doctor if you are using any of the following: ? Ampicillin, azithromycin, cimetidine, cyclosporine, digoxin, mefloquine, methotrexate, praziquantel, tamoxifen ? Medicine for diabetes, including insulin ? Medicine for heart rhythm problems ? Medicine for seizures ?? Take antacids or kaolin at least 4 hours before or after taking this medicine. ?? Do not drink alcohol while you are using this medicine. Warnings While Using This Medicine: ?? Tell your doctor if you are or , or if you have kidney disease, liver disease, heart disease, diabetes, stomach or bowel problems, nerve problems, blood disorders (including G6PD deficiency, porphyria), psoriasis, or vision or eye problems. Tell your doctor if you drink alcohol. ?? This medicine may cause the following problems: ? Changes in vision, eye damage ? Heart problems ? Changes in heart rhythm, including as QT prolongation ? Muscle and nerve problem ? Changes in mood or behavior ? Low blood sugar levels ? Serious skin reactions ?? This medicine may make you bleed, bruise, or get infections more easily. Take precautions to prevent illness and injury. Wash your hands often. ?? Your doctor will do lab tests at regular visits to check on the effects of this medicine. Keep all appointments. ?? Keep all medicine out of the reach of children. Never share your medicine with anyone. Possible Side Effects While Using This Medicine: Call your doctor right away if you notice any of these side effects: ?? Allergic reaction: Itching or hives, swelling in your face or hands, swelling or tingling in your mouth or throat, chest tightness, trouble breathing ?? Blistering, peeling, red skin rash ?? Blurred vision, hearing problems ?? Dark urine or pale stools, nausea, vomiting, loss of appetite, stomach pain, yellow skin or eyes ?? Fast, pounding, or uneven heartbeat ?? Increased hunger, headache, confusion, shaking, trembling, sweating ?? Lightheadedness, dizziness, fainting ?? Muscle pain, tenderness, or weakness ?? Unusual bleeding or bruising ?? Unusual changes in mood or behavior, or thoughts of hurting yourself or others If you notice these less serious side effects, talk with your doctor: ?? Diarrhea ?? Tiredness If you notice other side effects that you think are caused by this medicine, tell your doctor. Call your doctor for medical advice about side effects. You may report side effects to FDA at 7-641-BWN-1403 ?? Copyright [employer] 2020 Information is for End User's use only and may not be sold, redistributed or otherwise used for commercial purposes. The above information is an congressional aide only. It is not intended as medical advice for individual conditions or treatments. Talk to your doctor, nurse or pharmacist before following any medical regimen to see if it is safe and effective for you. Patient Education Naproxen (By mouth) Naproxen (na-PROX-en) Treats fever and pain. Also treats arthritis, gout, and menstrual cramps or pain. This medicine is an NSAID. Brand Name(s): Aleve, Aleve Arthritis, All Day Pain Relief, All Day Relief, Anaprox, Anaprox DS, ECNaprosyn, Flanax Pain Relief, [facility] All Day Pain Relief, [facility] Naproxen Sodium, Good Sense Naproxen Sodium, Leader All Day Pain Relief, Mediproxen, Naprelan, Naprosyn There may be other brand names for this medicine. When This Medicine Should Not Be Used: This medicine is not right for everyone. Do not use it if you had an allergic reaction (including asthma) to naproxen, aspirin, or other NSAIDs. Do not use it if you have had a heart surgery (such ascoronary artery bypass graft). How to Use This Medicine: Liquid Filled Capsule, Liquid, Tablet, Coated Tablet, Long Acting Tablet ?? Your doctor will tell you how much medicine to use. Do not use more than directed. ?? Take this medicine with food or milk so it does not upset your stomach. Drink a full glass of water after each dose. ?? Delayed-release tablet: Swallow whole. Do not crush, break, or chew it. ?? Oral liquid: Shake well just before you measure the dose. Measure the oral liquid medicine with a marked measuring spoon, oral syringe, or medicine cup. ?? Follow the instructions on the medicine label if you are using this medicine without a prescription. ?? This medicine should come with a Medication Guide. Ask your pharmacist for a copy if you do not have one. ?? Missed dose: Take a dose as soon as you remember. If it is almost time for your next dose, wait until then and take a regular dose. Do not take extra medicine to make up for a missed dose. ?? Store the medicine in a closed container at room temperature, away from heat, moisture, and direct light. Oral liquid: Do not freeze. Drugs and Foods to Avoid: Ask your doctor or pharmacist before using any other medicine, including tjdz-reh-qxnqect medicines, vitamins, and herbal products. ?? Do not use any other NSAID medicine unless your doctor says it is okay. Some other NSAIDs are aspirin, celecoxib, diclofenac, diflunisal, ibuprofen, or salsalate. ?? Some medicines can affect how naproxen works. Tell your doctor if you are using any of the following: ? Cholestyramine, cyclosporine, digoxin, lithium, methotrexate, probenecid, sucralfate ? Antacids ? Blood pressure medicine ? Blood thinner (including warfarin) ? Diuretic (water pill) ? Medicine to treat depression ? Steroid medicine ?? Do not drink alcohol while you are using this medicine. Warnings While Using This Medicine: ?? Tell your doctor if you are or . Do not use this medicine during the laterpart of a , unless your doctor tells you to. ?? Tell your doctor if you have kidney disease, liver disease, anemia, asthma, bleeding problems, high blood pressure, heart failure, a recent heart attack, or a history of stomach or bowel problems (including ulcers or bleeding). Tell your doctor if you smoke or drink alcohol. ?? This medicine may cause the following problems: ? Higher risk of blood clots, heart attack, stroke, or heart failure ? Bleeding and ulcers in the stomach or intestines ? Liver damage ? Kidney damage ? High potassium levels in the blood ? Serious skin reactions ?? Call your doctor if symptoms get worse, pain lasts more than 10 days, or fever lasts more than 3days. ?? Tell any doctor or dentist who treats that you are using this medicine, especially if you have surgery or a procedure. ?? This medicine may make you dizzy or drowsy. Do not drive or do anything else that could be dangerous until you know how this medicine affects you. ?? Ovulation may be delayed in some women while this medicine is being used. Talk to your doctor ifyou have concerns about this. ?? Tell any doctor or dentist who treats you that you are using this medicine. This medicine may affect certain medical test results. ?? Your doctor will do lab tests at regular visits to check on the effects of this medicine. Keep all appointments. ?? Keep all medicine out of the reach of children. Never share your medicine with anyone. Possible Side Effects While Using This Medicine: Call your doctor right away if you notice any of these side effects: ?? Allergic reaction: Itching or hives, swelling in your face or hands, swelling or tingling in your mouth or throat, chest tightness, trouble breathing ?? Blistering, peeling, red skin rash ?? Bloody or black, tarry stools, severe stomach pain, vomiting blood or something that looks like coffee grounds ?? Change in how much or how often you urinate ?? Chest pain that may spread, trouble breathing, unusual sweating, fainting ?? Dark urine or pale stools, nausea, vomiting, loss of appetite, stomach pain, yellow skin or eyes ?? Numbness or weakness on one side of your body, sudden or severe headache, problems with vision, speech, or walking ?? Rapid weight gain, swelling in your hands, ankles, or feet ?? Unusual bleeding, bruising, or weakness ?? Vision changes If you notice these less serious side effects, talk with your doctor: ?? Mild nausea, diarrhea, or constipation ?? Ringing in your ears, dizziness, headache If you notice other side effects that you think are caused by this medicine, tell your doctor. Call your doctor for medical advice about side effects. You may report side effects to FDA at 3-868-KKG-7493 ?? Copyright [employer] 2020 Information is for End User's use only and may not be sold, redistributed or otherwise used for commercial purposes. The above information is an congressional aide only. It is not intended as medical advice for individual conditions or treatments. Talk to your doctor, nurse or pharmacist before following any medical regimen to see if it is safe and effective for you. ICULUM MANAGER documented in this encounter Progress Notes * Walter Schaefer DO - 01/17/2021 4:04 PM CST Negative antibody testing results for antibodies that can be associated with chronic autoimmune hepatitis or primary biliary cirrhosis. ICULUM MANAGER * Walter Schaefer DO - 01/16/2021 2:40 PM CST Images from the original note were not included. RHEUMATOLOGY INITIAL OFFICE VISIT NOTE 01/16/2021 REFERRING PHYSICIAN/PROVIDER: Wilmer Carnes [address] [place] [address] REASON FOR CONSULT: Chief Complaint Patient presents with ??? Establish Care +ART, joint pain HISTORY OF PRESENTING ILLNESS: Oumou Middleton is a 45 year old female who has a history of diabetes mellitus was referred to rheumatology for evaluation of the development of painful swelling and stiffness of the fingers of bothhands that began developing about 4 months ago followed by the development of pain felt along the plantar aspect of the metatarsophalangeal joints of both feet. 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 In the morning she has to walk on her heels due to significant pain felt across the plantar aspect of her toes. She has been unable to wear her rings due to swelling on her fingers. She began noticing a developing nodule over her left thumb that made her worried about the possibility of rheumatoid arthritis. She has a strong family history of rheumatoid arthritis affecting many relatives on her maternal side including her maternal grandmother, great maternal aunt and perhaps also involving her mother. Interestingly her early laboratory testing returned un remarkable results for rheumatoid factor and anti CCP antibody and also had a normal C-reactive protein however quite high titer antinuclear antibody was detected (see below). She has been utilizing ogoy-ddb-lrwrjdy ibuprofen 400 mg taken every 4-6 hours with some modest relief. She has previously been told that she has evidence of ???fatty liver disease?? and has done quite well with weight loss measures decreasing down from the 400 lb range to her current weight but still is having trouble with controlling her blood sugars. She has an upcoming follow-up appointment scheduled with her tail end rider. We also reviewed the results of her elevated serum liver transaminase enzyme results which would certainly raise consideration of possible fatty liver disease however cannot exclude the possibility of autoimmune liver disease especially given her strongly positive ART with the dot pattern. Outside records reviewed: Records received from [facility] in [facility] I included single a chart note with an encounter date of 11/09/2020 indicating that the patient was presenting for evaluation of left hand pain. She had noted that her left hand had been hurting when she could hardly close her hand. The thumb was hurting as well on both sides and stated she had to popher thumb to relieve the pressure. Her hand had been swelling where she could no longer put her rings on because they would get stuck. Patient was concerned about having rheumatoid arthritis in her hands. Left hand pain score was rated 8-9/10. Examination identified swelling and tenderness to the eva ints of both hands left worse than right and she had nodules noted on the sides of some fingers andhad difficulty making a fist with her left hand. Laboratory testing collected 11/10/2020 indicated presence of [...] approximately 2.5 times upper limit of normal. Rheumatoid factor negative. Comprehensive chemistry profile with a low serum sodium it potassium 2, chloride 1 glucose elevated to 152. Serum uric acid at 4.0 mg/dL. Serum calcium 9.0. Totalbilirubin 1.2. CK 65. C-reactive protein less than 0.5. Total protein 8.0. Albumin 4.2. Alkaline phosphatase 79. Anti Ny antibody negative, anticentromere B antibody negative, anti histone antibody negative, C3 complement 130, C4 complement 28.2, total complement greater than 60, anti CCP antibody negative. Laboratory testing collected on 10/26/2019 included 25 hydroxy vitamin-D 32.6. Hemoglobin A1c 8.7%. CBC is white blood cell count 7600, hemoglobin 14.5 g, hematocrit 43.4% platelet count [id number]. REVIEW OF SYSTEMS: ROS See pertinent positive and/or negative in HPI All other systems are negative PAST MEDICAL HISTORY: Past Medical History: Diagnosis Date ??? Anxiety ??? Asthma Dr. mcdaniels controls ??? COPD (chronic obstructive pulmonary disease) ??? Diabetes ??? Lumbar herniated disc ??? PTSD (post-traumatic stress disorder) ??? Sleep apnea in adult PAST SURGICAL HISTORY: Past Surgical History: Procedure Laterality Date ??? ADENOIDECTOMY ??? Back Surgery Frontal fusion ??? Cholecystectomy FAMILY HISTORY: Family History Problem Relation Name Age of Onset ??? Arthritis - Rheumatoid Maternal Grandmother Allergies Allergen Reactions ??? Ranitidine Unknown ??? Risperidone Other Reaction: OTHER REACTION ??? Parada Anaphylaxis ??? Iodine Rash Social history Social History Socioeconomic History ??? Marital status: Spouse name: Not on file ??? Number of children: Not on file ??? Years of education: Not on file ??? Highest education level: Not on file Occupational History ??? Not on file Tobacco Use ??? Smoking status: Former Smoker Years: 28.00 Quit date: 07/11/2010 Years since quittin.5 ??? Smokeless tobacco: Never Used Vaping Use ??? Vaping Use: Never used Substance and Sexual Activity ??? Alcohol use: Yes Comment: occasionally ??? Drug use: No ??? Sexual activity: Not on file Other Topics Concern ??? Not on file Social History Narrative ??? Not on file Social Determinants of Health Financial Resource Strain: Not on file Food Insecurity: Not on file Transportation Needs: Not on file Physical Activity: Not on file Stress: Not on file Social Connections: Not on file Intimate Partner Violence: Not on file Housing Stability: Not on file There is no immunization history on file for this patient. Current Outpatient Medications Medication Sig Dispense Refill ??? albuterol HFA (PROVENTIL;VENTOLIN;PROAIR) 108 (90 Base) MCG/ACT inhaler Inhale 2 puffs by mouth ??? ARIPiprazole (ABILIFY) 5 MG tablet 5 mg ??? Barium Sulfate (VOLUMEN PO) ??? benzonatate (TESSALON) 200 MG capsule Take 1 capsule by mouth 3 times daily as needed for Cough30 capsule 0 ??? cyclobenzaprine (FLEXERIL) 10 MG tablet Take 10 mg by mouth ??? diazePAM (VALIUM) 5 MG tablet Take 5 mg by mouth 3 times daily as needed for Anxiety ??? DULoxetine (CYMBALTA) 30 MG capsule Take 30 mg by mouth once daily ??? hydroxychloroquine (PLAQUENIL) 200 MG tablet Take 1 (one) tablet by mouth 2 times daily Reasons: Rheumatoid Arthritis 60 tablet 1 ??? insulin aspart (NOVOLOG) vial ??? LANTUS SOLOSTAR pen ADMINISTER 30 UNITS UNDER THE SKIN EVERY EVENING ??? metFORMIN (GLUCOPHAGE) 1000 MG tablet Take 1,000 mg by mouth once daily ??? naproxen (NAPROSYN) 500 MG tablet Take 1 (one) tablet by mouth 2 times daily Reasons: Rheumatoid Arthritis 60 tablet 1 ??? Respiratory Therapy Supplies (NEBULIZER) WILLI Use as directed ??? rizatriptan (MAXALT) 10 MG tablet TK ONE T PO MAY REPEAT Q TWO H FOR TWO DOSES. MAX OF 3 TS PER24 H. 0 ??? traZODone (DESYREL) 100 MG tablet Take 100 mg by mouth No current facility-administered medications for this visit. VITALS: Wt Readings from Last 3 Encounters: 01/16/21 93.4 kg (206 lb) 01/18/19 93 kg (205 lb) 08/11/10 111.1 kg (245 lb) Temp Readings from Last 3 Encounters: 01/16/21 97 ??F (36.1 ??C) 01/18/19 98.6 ??F (37 ??C) (Oral) 08/12/10 97.8 ??F (36.6 ??C) BP Readings from Last 3 Encounters: 01/16/21 110/60 01/18/19 122/76 08/12/10 92/52 Pulse Readings from Last 3 Encounters: 01/16/21 90 01/18/19 83 08/12/10 75 Physical Exam GEN: NAD. Accompanied by her to the office. HEENT: Anicteric, noninjected sclera, no appearance of episcleritis, scleritis or ciliary flush. MSK: Physical Exam SKIN: No rash, but with a small nontender left thumb palmar nodule identified. EXT: No distal LE edema PSYCH: Alert. Appropriate. LABS: No results for input(s): WBC, RBC, HGB, HCT, MCV, MCHC, PLTCOUNT, NEUTPCT, LYMPHPCT, MONOCYTPCT, EOSINPCT, BASOPHILPCT, GRANSIMMPCT, NEUTABS, LYMPHABS, MONOCYTABS, EOSINABS, BASOABS, IMMGRANSABS in the last 61625 hours. No results for input(s): SODIUM, POTASSIUM, CHLORIDE, CO2, BUN, CREATININE, GLUCOSE, CALCIUM, ALBUMIN, ALKPHOS, ALT, AST, TBIL, TPROT, EGFR in the last 90300 hours. No results for input(s): CRP in the last 82591 hours. No results for input(s): SEDRATE in the last 65263 hours. No results for input(s): RAQNT in the last 35611 hours. No results for input(s): CCPIGG in the last 60435 hours. No results for input(s): ART, ANATITER in the last 01361 hours. No results for input(s): DNAABDS in the last 49950 hours. No results for input(s): C3 in the last 75207 hours., No results for input(s): C4 in the last 83986ohqkb. No results for input(s): SMAB, SMRNPAB, SSAAB, SSBAB, NTA48BW in the last 78863 hours. No results for input(s): CK in the last 15017 hours., No results for input(s): COLORUA, CLARITYUA, SPECGRAVUA, PHUA, PROTEINUA, BLOODUA, LEUKOCYTEUA, NITRITEUA, GLUCOSEUA, KETONEUA, BILIRUBINUA, UROBILINUA, REDSUBUA, WBCUAAUTO, RBCUAAUTO, EPITHUAAUTO, BACTUAAUTO, YEASTUAAUTO, SPERMUAAUTO, CASTUAAUTO, CRYSUAAUTO, MUCUSUAAUTO in the last 40077 hours. No results for input(s): BRNAVMUMC4LZ in the last 32980 hours. IMAGING: XR RIBS UNILATERAL RIGHT W PA CHEST Narrative: INDICATION: Right rib pain Two views of the right ribs are provided in a single PA view the chest. Lung roca are clear. Heart size and mediastinal contour within normal limits. There are low lung volumes. Views of the ribs show no fracture or dislocation. There is no hemothorax or pneumothorax. Impression: No fracture. XR LUMBAR SPINE 2 OR 3 VW Narrative: INDICATION: Back pain AP and lateral views of the lumbosacral spine are provided. There is normal alignment. There is normal mineralization. No fracture or compression is noted. Tiny anterior osteophytes are present. Impression: No fracture. XR HIP 2+ VW LEFT Narrative: INDICATION: Left hip pain Two views of the left hip are provided. There is no acute fracture, dislocation or destructive lesion. There is minimal degenerative change. Small calcification is seen adjacent to the greater trochanter. Impression: No fracture. XR TIBIA AND FIBULA 2 VW RIGHT Narrative: INDICATION: Right lower leg pain AP and lateral views of the right tibia and fibula are provided. There is no acute fracture, dislocation or destructive lesion. Alignment of the knee and ankle joints are unremarkable. There is soft tissue swelling about the ankle. Impression: No fracture is seen. XR PELVIS 1 OR 2 VW Narrative: INDICATION: Pelvic pain A single AP view of the pelvis shows both hips are located. No fracture or destructive lesion is seen. Mineralization is within normal limits. Impression: No fracture. CT SOFT TISSUE NECK W0 CONTRAST Narrative: CT EXAMINATION OF THE NECK INDICATION: Neck [...] lips appear thickened. I consulted with our fiber technologist who indicated the patient did not appear to have bruising or thickening of the lips therefore this could be an artifact secondary to the cervical collar. This report was transcribed with a computerized speech recognition system. In an effort to expedite patient care, it has not been adjusted for typographical, grammatical or syntax problems by a trained medical services assistant. For questions about the report, please contact the Radiology Department. Impression: No hematoma or fluid collection can be identified in the neck. The cervical esophagus appears normal in caliber. Mild supraglottic thickening is noted on the left. The etiology of this finding is unclear. Direct visual inspection of the larynx is recommended. CT CHEST NON CONTRAST Narrative: CT EXAMINATION OF THE CHEST WITHOUT CONTRAST [...] be identified. The no pleural effusions. No kqwgnji-twc-nrhycsi rib fracture identified. The heart size appears normal. This report was transcribed with a computerized speech recognition system. In an effort to expedite patient care, it has not been adjusted for typographical, grammatical or syntax problems by a trained medical services assistant. For questions about the report, please contact the Radiology Department. Impression: Essentially negative study. No pneumothorax or lung contusion can be identified. CT CERVICAL SPINE NON CONTRAST Narrative: Examination: CT Cervical Spine, without contrast. Indication: [...] or syntax problems by a trained medical services assistant. For questions about the report, please contact the Radiology Department. Impression: No fracture can be identified. Please see above. CT HEAD - NON CONTRAST Narrative: EXAMINATION: CT BRAIN WITHOUT CONTRAST. Indication: Trauma [...] or syntax problems by a trained medical services assistant. Findings: There is no intracranial mass-effect or midline shift identified. The ventricular system is normal in size for the stated age. No focal intraparenchymal hemorrhage can be identified. If the patient's symptoms persist or worsen, a followup brain CT or MRI is recommended for further evaluation. Impression: No acute intracranial findings. Emergency noncontrast brain CT. Please see above. Orders Placed This Encounter ??? XR FOOT BILAT 3VW OR MORE ??? XR HAND BILAT 3VW OR MORE ??? SMOOTH MUSCLE ANTIBODY ??? MITOCHONDRIAL ANTIBODY SCREEN ??? C-REACTIVE PROTEIN ??? ERYTHROCYTE SEDIMENTATION RATE ??? CYCLIC CITRUL PEPTIDE ANTIBODY IGG/IGA (CCP) ??? RHEUMATOID FACTOR BLOOD QUANTITATIVE ??? naproxen (NAPROSYN) 500 MG tablet ??? hydroxychloroquine (PLAQUENIL) 200 MG tablet ICD-10-CM 1. Seronegative rheumatoid arthritis of multiple sites Active M06.09 2. Elevated liver enzymes R74.8 3. 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 Strong family [...] undesirable weight gain side effects. Will discontinue bsbg-nsi-flbnvzs ibuprofen in place her on prescription straight naproxen 500 mg twice daily to be taken with meals. Will initiate a DMARD treatment with hydroxychloroquine 200 mg twice daily and at this point will defer initiating methotrexate given her abnormal liver function serum enzyme testresults and need for further workup especially in consideration of possible autoimmune liver disease. I have suggested clinical reassessment in 1 month. Orders: - C-REACTIVE PROTEIN - ERYTHROCYTE SEDIMENTATION RATE - CYCLIC CITRUL PEPTIDE ANTIBODY IGG/IGA (CCP) - RHEUMATOID FACTOR BLOOD QUANTITATIVE - XR FOOT BILAT 3VW OR MORE; Future - XR HAND BILAT 3VW OR MORE; Future - naproxen (NAPROSYN) 500 MG tablet; Take 1 (one) tablet by mouth 2 times daily Reasons: RheumatoidArthritis - hydroxychloroquine (PLAQUENIL) 200 MG tablet; Take 1 (one) tablet by mouth 2 times daily Reasons:Rheumatoid Arthritis Elevated liver enzymes Assessment & Plan: Lab significant for serum AST elevated at 70 at approximately 2 times upper limit of normal and ALTelevated at 92 at approximately 2.5 times upper limit of normal. Laboratory testing collected 11/10/2020 indicated presence of a positive ART at a titer >= 1-1280 with a nuclear dot pattern (multiple nuclear dot (MND), or pseudocentromere, anti-nuclear antibody (ART) is an uncommon pattern associ ated primarily with primary biliary cirrhosis (PBC) and anti-mitochondrial antibody (AMA). Orders: - SMOOTH MUSCLE ANTIBODY - MITOCHONDRIAL ANTIBODY SCREEN ART positive Assessment & Plan: Previous history suggesting non [...] with consideration for possible autoimmune liver disease. I have reviewed the potential side effects associated with the use of hydroxychloroquine including but not limited to the recurrence of ocular toxicity and the for an annual eye screening examinations for the safe long-term use of this medication. Oumou Middleton has voiced good understanding of these risks, need for appropriate monitoring and is in agreement to continue initiate use of this medication. All questions were answered. No follow-ups on file. Thank you for allowing me to participate in the rheumatologic care of your pleasant patient. Ple[place] not hesitate to contact me if I can provide any additional follow-up information that you may require. Walter Schaefer D.O., [facility] Medical group Division of Rheumatology at [facility] The total time spent today in the visit with the patient for this initial encounter, including performing chart preparation, review of available data, and documentation, patient education, not related to any procedure or preventative visit services was 60 minutes. Portions of the record was created with voice recognition software.Variances in billet recorder may occur Walter Schaefer DO 01/16/2021 3:22 PM ICULUM MANAGER documented in this encounter Plan of Treatment Not on file documented as of this encounter Procedures Procedure Name Priority Date/Time Associated Diagnosis Comments MITOCHONDRIAL ANTIBODY SCREEN Routine 01/16/2021 3:53 PM CURRICULUM MANAGER Elevated liver enzymes CYCLIC CITRUL PEPTIDE ANTIBODY IGG/IGA (CCP) Routine 01/16/2021 3:53 PM CURRICULUM MANAGER 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) RHEUMATOID FACTOR BLOOD QUANTITATIVE Routine 01/16/2021 3:53 PM CURRICULUM MANAGER 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) C-REACTIVE PROTEIN Routine 01/16/2021 3: 53 PM CURRICULUM MANAGER 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) SMOOTH MUSCLE ANTIBODY Routine 3:53 PM CURRICULUM MANAGER Elevated liver enzymes ERYTHROCYTE SEDIMENTATION RATE Routine 01/16/2021 3:53 PM CURRICULUM MANAGER 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) documented in this encounter Results * XR HAND BILAT 3VW OR MORE (01/16/2021 4:28 PM CURRICULUM MANAGER) Anatomical Region Laterality Modality Upper Extremity, Wrist / Hand Ra diographic Imaging 01/16/2021 4:33 PM CURRICULUM MANAGER Narrative 01/16/2021 4:43 PM CURRICULUM MANAGER BILATERAL HANDS, THREE VIEW HISTORY: Pain. There [...] BILAT 3VW OR MORE (01/16/2021 4:28 PM CURRICULUM MANAGER) Anatomical Region Laterality Modality Ankle / Foot, Lower Extremity Ra diographic Imaging 01/16/2021 4:41 PM CURRICULUM MANAGER Narrative 01/16/2021 5:06 PM CURRICULUM MANAGER BILATERAL FEET, SIX VIEW HISTORY: Seronegative arthropathy. [...] Schaefer DO DIAGNOSTIC IMAGING O RDERABLES * RHEUMATOID FACTOR BLOOD QUANTITATIVE (01/16/2021 3:53 PM CURRICULUM MANAGER) Rheumatoid Factor <15 <30 IU/mL [facility] INSURANCE BILL Blood BLOOD SPECIMEN / Unknown 01/16/2021 3:53 PM CURRICULUM MANAGER 01/16/2021 Narrative Resulting Agency Comment Lab Testing performed at: [address] ??[facility] [id number] Walter Schaefer DO LAB - CHEMISTRY JASMIN BARBOUR [facility] INSURANCE BILL [address] [place] [address] * CYCLIC CITRUL PEPTIDE ANTIBODY IGG/IGA (CCP) (01/16/2021 3:53 PM CURRICULUM MANAGER) CCP Antibodies IgG/IgA 7 0 - 19 units [facility] INSURANCE BILL Comment: ? Negative ? <20 ? Weak positive ?20 - 39 ? Moderate positive ??40 - 59 ? Strong positive ?>59 Blood BLOOD SPECIMEN / Unknown 01/16/2021 3:53 PM CURRICULUM MANAGER 01/16/2021 Narrative Resulting Agency Comment Lab Testing performed at: [address] ??[facility] [id number] Walter Schaefer DO LAB - SEROLOGY ORDER DORIS [facility] INSURANCE BILL [address] [place] [address] * ERYTHROCYTE SEDIMENTATION RATE (01/16/2021 3:53 PM CURRICULUM MANAGER) Erythrocyte Sedimentation Rate Westergren 12 0 - 20 MM/HR [facility] INSURANCE BILL Blood BLOOD SPECIMEN / Unknown 01/16/2021 3:53 PM CURRICULUM MANAGER 01/16/2021 Narrative Resulting Agency Comment Lab Testing performed at: [address] ??[facility] [id number] Walter Schaefer DO LAB - HEMATOLOGY ORD HERMELINDA Performing Organization Address [facility] de Phone Number [facility] INSURANCE BILL [address] [place] [address] * (ABNORMAL) C-REACTIVE PROTEIN (01/16/2021 3:53 PM CURRICULUM MANAGER) Pathologist [facility] C-Reactive Protein 0.74(H) <=0.50 mg/dL [facility] INSURANCE BILL Blood BLOOD SPECIMEN / Unknown 01/16/2021 3:53 PM CURRICULUM MANAGER 01/16/2021 Narrative Resulting Agency Comment Lab Testing performed at: [address] ??[facility] [id number] Walter Schaefer DO LAB - CHEMISTRY JASMIN BARBOUR Performing Organization Address [facility] de Phone Number [facility] INSURANCE BILL [address] [place] [address] * MITOCHONDRIAL ANTIBODY SCREEN (01/16/2021 3:53 PM CURRICULUM MANAGER) Pathologist [facility] Mitochondrial M2 Antibody <20.0 0.0 - 20.0 Units [facility] INSURANCE BILL Comment: ? Negative ?0.0 - 20.0 ? Equivocal ??20.1 - 24.9 ? Positive ? >24.9 ? . ? Mitochondrial (M2) Antibodies are found in 90-96% of ? patients with primary biliary cirrhosis. FASTING Blood BLOOD SPECIMEN / Unknown 01/16/2021 3:53 PM CURRICULUM MANAGER 01/16/2021 Narrative Resulting Agency Comment Lab Testing performed at: [facility] [address] ??[facility] [id number] Walter Schaefer DO LAB - CHEMISTRY JASMIN BARBOUR [facility] INSURANCE BILL [address] [place] [address] * SMOOTH MUSCLE ANTIBODY (01/16/2021 3:53 PM CURRICULUM MANAGER) Actin (Smooth Muscle) Antibody 13 0 - 19 [facility] Comment: ?Negative ? 0 - 19 ?Weak positive ? 20 - 30 ?Moderate to strong positive ? >30 ?. ?Actin Antibodies are found in 52-85% of patients with ?autoimmune hepatitis or chronic active hepatitis and ?in 22% of patients with primary biliary cirrhosis. FASTING Blood BLOOD SPECIMEN / Unknown 01/16/2021 3:53 PM CURRICULUM MANAGER 01/16/2021 Narrative Resulting Agency Comment Lab Testing performed at: [facility] [address] ??[facility] [id number] Walter Schaefer DO LAB - SEROLOGY ORDER DORIS [facility] INSURANCE BILL [address] [place] [address] documented in this encounter Visit Diagnoses Diagnosis 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)- Primary Elevated liver enzymes Nonspecific elevation of levels of transaminase or lactic acid dehydrogenase (LDH) ART positive Other and unspecified nonspecific immunological findings 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) * Assessment & Plan Note - Walter Schaefer DO - 01/16/2021 3:18 PM CSTAssociated Problem(s): 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) Describes onset of features 4 months ago initially involving 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 Strong family [...] undesirable weight gain side effects. Will discontinue nedv-dnj-vgjvrsi ibuprofen in place her on prescription straight naproxen 500 mg twice daily to be taken with meals. Will initiate a DMARD treatment with hydroxychloroquine 200 mg twice daily and at this point will defer initiating methotrexate given her abnormal liver function serum enzyme testresults and need for further workup especially in consideration of possible autoimmune liver disease. I have suggested clinical reassessment in 1 month. ICULUM MANAGER * Assessment & Plan Note - Walter Schaefer DO - 01/16/2021 3:17 PM CSTAssociated Problem(s): Elevated liver enzymes Lab significant for serum AST elevated at 70 at approximately 2 times upper limit of normal and ALTelevated at 92 at approximately 2.5 times upper limit of normal. Laboratory testing collected 11/10/2020 indicated presence of a positive ART at a titer >= 1-1280 with a nuclear dot pattern (multiple nuclear dot (MND), or pseudocentromere, anti-nuclear antibody (ART) is an uncommon pattern associ ated primarily with primary biliary cirrhosis (PBC) and anti-mitochondrial antibody (AMA). ICULUM MANAGER * Assessment & Plan Note - Walter Schaefer DO - 01/16/2021 3:16 PM CSTAssociated Problem(s): ART positive Previous history suggesting non alcoholic fatty liver [...] with consideration for possible autoimmune liver disease. ICULUM MANAGER documented in this encounter Care Teams Semiconductor Manufacturing Technician Relationship Specialty Start Date End Date Wilmer Carnes MD [address] [place] [address] PCP - General Family Medicine 01/16/21 documented as of this encounter
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
--- OUTSIDE RECORDS SUMMARY | 2024-02-12 03:27 | XMS_ITS | Encounter Summary ---
Author Organization [facility] Address [facility] [place] [address] [place] [address] Care Team Providers Care Seismographer Name Role Phone Holger Soriano Primary Care Provider [phone] Reason for Visit * Reason Onset Date Comments Other 02/09/2024 MRI order Encounter Details Date Type Department Care Team (Late st Contact Info) Description 02/09/2024 Telephone [facility] Family & Internal Medicine [facility] [address] [place] [address] [place]ger Sor[place] [id number] [place] [address] Other (MRI order ) Social History Tobacco Use Types Packs/Day Years [...] PM CDT documented as of this encounter Progress Notes * Susana Nunez MA - 02/10/2024 1:53 PM CST FYI WASHER * Alejandra Zamudio LPN - 02/10/2024 1:33 PM CST Pt called states she is having the trouble with her speech and getting words to come out right she is not having muscle spasms but the speech is a little worse than when she went to ER last time Denies CP SOB states she is not having any problems cognitively I Spoke to Chin DOWNEY she said that if she feels worse go to ER but Adelina said waiting until 02/12/24 for MRI is ok Informed pt V/U states if this last more than 2 hours she will go to ER other horne just wanted to inform PCP of above WASHER * Susana Nunez MA - 02/09/2024 3:09 PM CST I spoke to Adelina and he is fine with her waiting until 02/12/24 since it is only 3 days away WASHER * Alejandra Zamudio LPN - 02/09/2024 11:09 AM CST Pt called she was seen by Adelina pt said that she was told that [facility] wanted MRI brain STAT and at [facility] earliest is 02/12/24 I spoke to Chin DOWNEY and the order say CHELE and the is only 3 days away She will talk to adelina but for now pt to keep 02/12/24 date Pt V/U We will call her if needs sooner [phone] WASHER documented in this encounter Plan of Treatment Upcoming Encounters Date Type Department Care Team (Late st Contact Info) Description 02/12/2024 9:00 AM POT WASHER Appointment [facility] [address] [place] [address] [place] [address] [place] [address] [place] [address] [place] [address] 02/12/2024 2:00 PM [address] [facility] MRI [address] [place] [address] [place] [address] [place] [address] 02/16/2024 9:00 AM POT WASHER Appointment [facility] [address] [place] [address] [place] [address] [place] [address] [place] [address] [place] [address] 02/19/2024 8:45 AM POT WASHER [facility]oint[address] [facility] [address] [place] [address] [place] [address] [place] [address] [place] [address] [place] [address] 02/19/2024 9:00 AM POT WASHER Appointment [facility] [address] [place] [address] [place] [address] [place] [address] [place] [address] [place] [address] 02/23/2024 9:00 AM POT WASHER [facility]ointment [facility] [address] [place] [address] [place] [address] [place] [address] [place] [address] [place] [address] 02/24/2024 1:30 PM POT WASHER Appointment [address] [address] [place] [address] [place] [address] 02/26/2024 9:00 AM POT WASHER Appointment [facility] [address] [place] [address] [place] [address] [place] [address] [place] [address] [place] [address] 02/26/2024 9:15 AM POT WASHER Appointment [facility] [address] [place] [address] [place] [address] [place] [address] [place] [address] [place] [address] 03/01/2024 9:00 AM POT WASHER Appointment [facility] [address] [place] [address] [place] [address] [place] [address] [place] [address] [place] [address] Lorene Branch, CREPE MAKER 03/02/2024 12:27 PM POT WASHER Hospital Encounter [facility] [address] [place] [address] [place] [address] [place] [address] 03/02/2024 12:27 PM POT WASHER - 03/02/2024 1:07 PM POT WASHER Surgery [facility] [address] [place] [address] [place] [address] [place] [address] MANIPULATION SHOULDER 03/05/2024 9:00 AM POT WASHER Appointment [facility] [address] [place] [address] [place] [address] [place] [address] Lorene Branch, CREPE MAKER 03/08/2024 9:00 AM POT WASHER Appointment [facility] [address] [place] [address] [place] [address] [place] [address] Lorene Branch, CREPE MAKER 03/11/2024 9:15 AM POT WASHER Appointment [facility] [address] [place] [address] [place] [address] [place] [address] Lorene Branch, CREPE MAKER 03/15/2024 9:00 AM POT WASHER Appointment [facility] [address] [place] [address] [place] [address] [place] [address] Lorene Branch, CREPE MAKER 03/18/2024 9:15 AM POT WASHER Appoint[address] [facility] [address] [place] [address] [place] [address] [place] [address] Lorene Branch, CREPE MAKER 03/22/2024 9:00 AM POT WASHER Appointment [facility] [address] [place] [address] [place] [address] [place] [address] Lorene Branch, CREPE MAKER 03/25/2024 9:15 AM POT WASHER Appointment [facility] [address] [place] [address] [place] [address] [place] [address] Lorene Branch, CREPE MAKER 04/21/2024 11:20 AM POT WASHER Office Visit [facility] Family & Internal Medicine [facility] [address] [place] [phone] [place] [address] [place] [address] Scheduled Procedures Name Priority Associated Diagnoses Date/Ti me MANIPULATION SHOULDER Adhesive capsulitis of left shoulder 03/02/2024 12:27 PM POT WASHER INJECTION JOINT Adhesive capsulitis of left shoulder 03/02/2024 12:27 PM POT WASHER documented as of this encounter Visit Diagnoses Not on filedocumented in this encounter Additional Health Concerns Assessment Noted Time PHQ-9 Depression Total Score: 024 3:24 PM CDT documented as of this encounter Care Teams Seismographer Relationship Specialty [place] [address] [place] [address] PCP - General Physician Air Quality Manager Medical 09/16/23 documented as of this encounter
--- OUTSIDE RECORDS SUMMARY | 2024-02-12 03:27 | XMS_ITS | Encounter Summary ---
Author Organization [facility] Address [address] [place] [address] Care Team Providers Care Scrap Hooker Name Role Phone Unavailable Primary Care Provider Unavailabl e Reason for Visit * Reason Onset Date Comments Referral 12/08/2020 to [facility] Rheumatol vidal Encounter Details Date Type Department Care Team (Late st Contact Info) Description 12/08/2020 Telephone [facility] - Rheumatology [address], [address] [place] [address] Walter Schaefer DO [address] [place] [address] Referral (to [facility] Rheumatology) Social History Tobacco Use Types Packs/Day Years [...] Telephone Encounter - Yaneth Gaytan LPN - 12/08/2020 4:16 PM CDT Called patient as a referral to [facility] Rheumatology by Dr Wilmer Carnes for +ART, ongoing joint pain in hands and feet. Scheduled CIGARETTE MAKING EXAMINER appt with Dr Schaefer. documented in this encounter Plan of Treatment Not on file documented as of this encounter Visit Diagnoses Not on filedocumented in this encounter
--- OUTSIDE RECORDS SUMMARY | 2024-02-12 03:28 | XMS_ITS | Encounter Summary ---
Author Organization [facility] Address [facility] [place] [address] [place] [address] Care Team Providers Care Ergonomics Consultant Name Role Phone Holger Soriano Primary Care Provider [phone] Reason for Visit * Reason Onset Date Comments Question 12/31/2023 Encounter Details Date Type Department Care Team (Late st Contact Info) Description 12/31/2023 Telephone [facility] Orthopedic Surgery [facility] [address] [address] [facility] [address] [place] [address] [place] [address] [place], [place] [phone] Question Social History Tobacco Use Types Packs/Day [...] as of this encounter Progress Notes * Anali Cormier RN - 01/02/2024 10:42 AM CST Left a voice message informing patient that she can continue physical therapy if she would like. Dr. Logan said that it probably wouldn't hurt but can be expensive and he would rather her have therapy after her shoulder manipulation. Advised the patient to contact our office if she has any further questions or concerns. ECTOR PROCESS * Anali Cormier RN - 01/01/2024 10:11 AM CST Patient had to reschedule her left shoulder manipulation surgery until 03/02/2024. Asking if she should continue PT until her surgery? Please advise. ECTOR PROCESS * Kimberly Langley - 12/31/2023 4:20 PM CST Patient called and wants to know if doctor wants her to continue PT, please call her at [phone] ECTOR PROCESS documented in this encounter Plan of Treatment Upcoming Encounters Date Type Department Care Team (Late st Contact Info) Description 02/12/2024 9:00 AM INSPECTOR PROCESS Appointment [facility] [address] [place] [address] [place] [address] [place] [address] [place] [address] [place] [address] 02/12/2024 2:00 PM INSPECTOR PROCESS Appointment [facility] [address] [place] [address] [place] [address] [place] [address] 02/16/2024 9:00 AM INSPECTOR PROCESS Appointment [facility] [address] [place] [address] [place] [address] [place] [address] [place] [address] [place] [address] 02/19/2024 8:45 AM INSPECTOR PROCESS Appointment [facility] [address] [place] [address] [place] [address] [place] [address] [place] [address] [place] [address] 02/19/2024 9:00 AM INSPECTOR PROCESS Appointment [facility] [address] [place] [address] [place] [address] [place] [address] [place] [address] [place] [address] 02/23/2024 9:00 AM INSPECTOR PROCESS Appointment [facility] [address] [place] [address] [place] [address] [place] [address] [place] [address] [place] [address] 02/24/2024 1:30 PM INSPECTOR PROCESS Appointment [facility] [address] [place] [address] Ihsan LoganDO [address] [place] [address] 02/26/2024 9:00 AM INSPECTOR PROCESS Appointment [facility] [address] [place] [address] [place] [address] [place] [address] [place] [address] [place] [address] 02/26/2024 9:15 AM INSPECTOR PROCESS Appointment [facility] [address] [place] [address] [place] [address] [place] [address] [place] [address] [place] [address] 03/01/2024 9:00 AM INSPECTOR PROCESS Appointment [facility] [address] [place] [address] [place] [address] [place] [address] [place] [address] [place] [address] Lorene Branch, GREASE CUP FILLER 03/02/2024 12:27 PM INSPECTOR PROCESS Hospital Encounter [facility] [address] [place] [address] [place] [address] [place] [address] 03/02/2024 12:27 PM INSPECTOR PROCESS - 03/02/2024 1:07 PM INSPECTOR PROCESS Surgery [facility] [address] [place] [address] [place] [address] [place] [address] MANIPULATION SHOULDER 03/05/2024 9:00 AM INSPECTOR PROCESS Appointment [facility] [address] [place] [address] [place] [address] [place] [address] Lorene Branch, GREASE CUP FILLER 03/08/2024 9:00 AM INSPECTOR PROCESS Appointment [facility] [address] [place] [address] [place] [address] [place] [address] Lorene Branch, GREASE CUP FILLER 03/11/2024 9:15 AM INSPECTOR PROCESS Appointment [facility] [address] [place] [address] [place] [address] [place] [address] Lorene Branch, GREASE CUP FILLER 03/15/2024 9:00 AM INSPECTOR PROCESS Appointment [facility] [address] [place] [address] [place] [address] [place] [address] Lorene Branch, GREASE CUP FILLER 03/18/2024 9:15 AM INSPECTOR PROCESS Appointment [facility] [address] [place] [address] [place] [address] [place] [address] Lorene Branch, GREASE CUP FILLER 03/22/2024 9:00 AM INSPECTOR PROCESS Appointment [facility] [address] [place] [address] [place] [address] [place] [address] Lorene Branch, GREASE CUP FILLER 03/25/2024 9:15 AM INSPECTOR PROCESS [facility]ment [facility] [address] [place] [address] [place] [address] [place] [address] Lorene Branch, GREASE CUP FILLER 04/21/2024 11:20 AM INSPECTOR PROCESS Office Visit [facility] Medical Group Family & Internal Medicine [address] [address] [place] [address] [place], [place] [id number] Scheduled Procedures Name Priority Associated Diagnoses Date/Ti me MANIPULATION SHOULDER Adhesive capsulitis of left shoulder 03/02/2024 12:27 PM INSPECTOR PROCESS INJECTION JOINT Adhesive capsulitis of left shoulder 03/02/2024 12:27 PM INSPECTOR PROCESS documented as of this encounter Visit Diagnoses Not on filedocumented in this encounter Additional Health Concerns Assessment Noted Time PHQ-9 Depression Total Score: 24 024 3:24 PM CDT documented as of this encounter Care Teams Ergonomics Consultant Relationship Specialty [place] [address] [place] [address] PCP - General Physician Landscape Horticulture Instructor Medical 09/16/23 documented as of this encounter
--- OUTSIDE RECORDS SUMMARY | 2024-02-12 03:28 | XMS_ITS | Encounter Summary ---
Author Organization [facility] Address [facility]. [place], [place] [address] [place] [address] Care Team Providers Care Codifier Name Role Phone Holger Soriano Primary Care Provider [phone] Reason for Visit * Reason Comments Back Pain Shoulder Pain * Physical Medicine (Urgent) - Authorized Specialty Diagnoses / Procedures Referred By Contac t Referred To Contact PHYSICAL THERAPY Diagnoses Left shoulder pain Low back pain Procedures OFFICE/OUTPATIENT NEW LOW MDM 30-44 MINUTES OFFICE/OUTPT VISIT,NEW,LEVL IV OFFICE/OUTPT VISIT,NEW,LEVL V OFFICE/OUTPT VISIT,EST,LEVL III OFFICE/OUTPT VISIT,EST,LEVL IV OFFICE/OUTPT VISIT,EST,[place] [address] [place] [address] Phone: tel: fax: [facility] [address] [place] [address] Phone: tel: fax: Referral ID Status Reason Start Date Expiration Date Visits Requested Visits Authorized [id number] Authorized Physical Therapy 10/13/2023 11/11/2024 99 99 Encounter Details Date Type Department Care Team (Latest Contact Info) Description 02/05/2024 10:55 AM SENIOR UI WEB DEVELOPER - 02/05/2024 11:59 PM [facility] Hospital Encounter [facility] [address] [place] [address] [place] [address] [place], [place] [id number] [place] [address] [place], [place] [id number] Back Pain; Shoulder Pain Discharge Disposition: Home [...] total) by mouth daily. 90 tablet 01/20/2024 fluticasone propionate (FLONASE) 50 MCG/ACT nasal sprayIndications: Acute non-recurrent frontal sinusitis 2 sprays by Nasal route daily for 30 days. 2 puffs each nostril twice a day for 3 days, then 2 puffs each nostril daily 18.2 mL 1 01/20/2024 4 gabapentin (NEURONTIN) 300 MG capsuleIndication s:Chronic left shoulder pain Take 1 tablet in the morning and 2 tablets at night time. 90 capsule 1 01/20/2024 meloxicam (MOBIC) 15 MG tabletIndications :Acute bilateral low back pain with bilateral sciatica TAKE 1 TABLET (15 MG TOTAL) BY MOUTH DAILY. 30 tablet 1 12/31/2023 nystatin (MYCOSTATIN) powderIndications :Intertrigo Apply topically 2 (two) times daily for 30 days. 60 g 3 01/20/2024 progesterone (PROMETRIUM) 100 MG capsuleIndication s:Menopausal and [...] week. Indications: Diabetes 3 mL 3 11/19/2023 5 SUMAtriptan (IMITREX) 25 MG tabletIndications :Migraine with [...] g 12/29/2023 documented as of this encounter Progress Notes * Padmaja Marie, PT - 02/05/2024 11:00 AM CST Physical Therapy Visit Note: Patient Name: Oumou Middleton Diagnosis: Left shoulder pain (primary encounter diagnosis) SUBJECTIVE Therapy Visit Start Time: 1057 Stop Time: 1200 Time Calculation (min): 63 min Treatment Day: 18 for SH/ 7 for LB Total Approved Visits: 20 for SH (re-eval 10th visit for SH), 16 for back Therapy Plan of Care: 2x/week for 8 weeks Current Therapy Orders: eval and tx Diagnosis: L shoulder pain, low back pain Referring Provider: Holger Soriano Date of Injury: Shoulder- Fell Feb 2023 but pain started in Nov 2022. Low back - exacerbated early Oct. 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[employer], [employer] Job Duties: Has help at work to lift things currently Subjective Note: Missed a few appointments for the flu and work. Confirmed she is going on a 12 day cruise in March. Back and hips have been hurting, numbness going down the L leg when standing for too long. OBJECTIVE Treatment provided today: Therapeutic Exercise - 61519 Number of Minutes - 43192: 43 Exercise: Pulleys scaption, butterfly x 3 min each (longer holds) with MHP Exercise: Wall slides flexion and scap (towel), with light assist from RUE x 10 each with MHP on Exercise: gentle PROM L shoulder all planes (supine, with MHP held down by sheet) LLLD x 20 min Exercise: prone over 1 pillow - L piriformis release & rolling stick over B glute x 8 min, hip IR PROM gentle x 10 long holds Manual Therapy - 10230 Number of Minutes - 34670: 20 Modalities Non-Timed Hot Pack - 38271: MHP to L shoulder and low back throughout tx as able Education Was Education Provided: Yes Topic: ex technique, PT POC Recipient: Patient Method: Demonstration, Verbal, Return Demonstration Response: Verbalized understanding, Asked questions ASSESSMENT Assessment Note: Ongoing significant limitation in ER ROM but slight improvement noted in flexion and scaptionwithout significant pain/grimacing today. Improved ability to relax LLE in prone position after useof rolling stick and gentle PROM. Response to Treatment : No adverse reactions Goal Progression: ongoing/progressing Continue on Functional Deficit of: L shoulder pain with dressing, bathing, work, sleep PLAN Plan Next Visit Plan: Progress activities as tolerated. Total Time Total Time in Minutes: 63 Timed Code Treatment Minutes : 63 OR UI WEB DEVELOPER documented in this encounter Plan of Treatment Upcoming Encounters Date Type Department Care Team (Late st Contact Info) Description 02/12/2024 9:00 AM SENIOR UI WEB DEVELOPER Appointment [facility] [address] [place] [address] [place] [address] [place] [address] [place] [address] [place] [address] 02/12/2024 2:00 PM SENIOR UI WEB DEVELOPER Appointment [address] [address] [place] [address] [place] [address] 02/16/2024 9:00 AM SENIOR UI WEB DEVELOPER Appointment [facility] [address] [place] [address] [place] [address] [place] [address] [place] [address] [place] [address] 02/19/2024 8:45 AM SENIOR UI WEB DEVELOPER Appointment [facility] [address] [place] [address] [place] [address] [place] [address] [place] [address] [place] [address] 02/19/2024 9:00 AM SENIOR UI WEB DEVELOPER Appointment [facility] [address] [place] [address] [place] [address] [place] [address] [place] [address] [place] [address] 02/23/2024 9:00 AM SENIOR UI WEB DEVELOPER Appointment [facility] [address] [place] [address] [place] [address] [place] [address] [place] [address] [place] [address] 02/24/2024 1:30 PM SENIOR UI WEB DEVELOPER Appointment [facility] [address] [place] [address] Ihsan Logan, [id number] [place] [address] 02/26/2024 9:00 AM SENIOR UI WEB DEVELOPER Appointment [facility] [address] [place] [address] [place] [address] [place] [address] [place] [address] [place] [address] 02/26/2024 9:15 AM SENIOR UI WEB DEVELOPER Appointment [facility] [address] [place] [address] [place] [address] [place] [address] [place] [address] [place] [address] 03/01/2024 9:00 AM SENIOR UI WEB DEVELOPER Appointment [facility] [address] [place] [address] [place] [address] [place] [address] [place] [address] [place] [address] Lorene Branch, CAKE WRAPPER 03/02/2024 12:27 PM SENIOR UI WEB DEVELOPER Hospital Encounter [facility] [address] [place] [address] Ihsan Logan, [address] [place] [address] 03/02/2024 12:27 PM SENIOR UI WEB DEVELOPER - 03/02/2024 1:07 PM SENIOR UI WEB DEVELOPER Surgery [facility] [address] [place] [address] [place] [address] [place] [address] MANIPULATION SHOULDER 03/05/2024 9:00 AM SENIOR UI WEB DEVELOPER Appointment [facility] [address] [place] [address] [place] [address] [place] [address] Lorene Branch, CAKE WRAPPER 03/08/2024 9:00 AM SENIOR UI WEB DEVELOPER Appointment [facility] [address] [place] [address] [place] [address] [place] [address] Lorene Branch, CAKE WRAPPER 03/11/2024 9:15 AM SENIOR UI WEB DEVELOPER Appointment [facility] [address] [place] [address] [place] [address] [place] [address] Lorene Branch, CAKE WRAPPER 03/15/2024 9:00 AM SENIOR UI WEB DEVELOPER Appointment [facility] [address] [place] [address] [place] [address] [place] [address] Lorene Branch, CAKE WRAPPER 03/18/2024 9:15 AM SENIOR UI WEB DEVELOPER Appointment [facility] [address] [place] [address] [place] [address] [place] [address] Lorene Branch, CAKE WRAPPER 03/22/2024 9:00 AM SENIOR UI WEB DEVELOPER Appointment [facility] [address] [place] [address] [place] [address] [place] [address] Lorene Branch, CAKE WRAPPER 03/25/2024 9:15 AM SENIOR UI WEB DEVELOPER Appointment [facility] [address] [place] [address] [place] [address] [place] [address] Lorene Branch PTA 04/21/2024 11:20 AM SENIOR UI WEB DEVELOPER Office Visit [facility] Family & Internal Medicine [facility] [address] [place] [phone] [place] [address] [place] [address] Scheduled Procedures Name Priority Associated Diagnoses Date/Ti me MANIPULATION SHOULDER Adhesive capsulitis of left shoulder 03/02/2024 12:27 PM SENIOR UI WEB DEVELOPER INJECTION JOINT Adhesive capsulitis of left shoulder 03/02/2024 12:27 PM SENIOR UI WEB DEVELOPER documented as of this encounter Visit Diagnoses Diagnosis Frozen shoulder- Primary Adhesive capsulitis of shoulder Left shoulder pain- Primary Pain in joint, shoulder region Adhesive capsulitis of left shoulder Adhesive capsulitis of shoulder documented in this encounter Additional Health Concerns Assessment Noted Time PHQ-9 Depression Total Score: 24 024 3:24 PM CDT documented as of this encounter Care Teams Codifier Relationship Specialty [place] [address] [place] [address] PCP - General Physician [employer] 09/16/23 documented as of this encounter
--- OUTSIDE RECORDS SUMMARY | 2024-02-12 03:28 | XMS_ITS | Encounter Summary ---
Author Organization [facility] Address [facility]. [place], [place] [address] [place] [address] Care Team Providers Care [place] Name Role Phone Holger Soriano Primary Care Provider [phone] Reason for Visit * Reason Comments Shoulder Pain * Physical Medicine (Urgent) - Authorized Specialty Diagnoses / Procedures Referred By Contac t Referred To Contact PHYSICAL THERAPY Diagnoses Left shoulder pain Low back pain Procedures OFFICE/OUTPATIENT NEW LOW MDM 30-44 MINUTES OFFICE/OUTPT VISIT,NEW,LEVL IV OFFICE/OUTPT VISIT,NEW,LEVL V OFFICE/OUTPT VISIT,EST,LEVL III OFFICE/OUTPT VISIT,EST,LEVL IV OFFICE/OUTPT VISIT,EST,[place] [address] [place] [address] Phone: tel: fax: [facility] [address] [place] [address] Phone: tel: fax: Referral ID Status Reason Start Date Expiration Date Visits Requested Visits Authorized [id number] Authorized Physical Therapy 10/13/2023 11/11/2024 99 99 Encounter Details Date Type Department Care Team (Late st Contact Info) Description 01/09/2024 8:23 AM CORD TIRE BUILDER - 01/09/2024 11:59 PM CORD TIRE BUILDER Hospital Encounter [facility] [address] [place] [address] [place] [address] [place], [place] [id number] [place] [address] [place], [place] [address] [place] [address] [place], [place] [id number] Shoulder Pain Discharge Disposition: Home or Self [...] by mouth daily. 180 capsule 1 09/16/2023 meloxicam (MOBIC) 15 MG tabletIndications :Acute bilateral low back pain with bilateral sciatica TAKE 1 TABLET (15 MG TOTAL) BY MOUTH DAILY. 30 tablet 1 12/31/2023 QUEtiapine (SEROQUEL) 100 MG tabletIndications :Bipolar I disorder with depression (CMS/HCC [facility]/HCC) Take 1 tablet (100 mg total) by [...] vaginally nightly at bedtime. 1 g 12/29/2023 cefdinir (OMNICEF) 300 MG Cap capsuleIndication s:Bronchitis Take 1 capsule (300 mg total) by mouth 2 (two) times daily. 20 capsule 12/29/2023 4 cyclobenzaprine (FLEXERIL) 10 MG tabletIndications :Other muscle spasm Take 1 tablet (10 mg total) by mouth as needed. FOR MUSCLE SPASMS 90 tablet 12/22/2023 4 diazePAM (VALIUM) 5 MG tabletIndications :Acute bilateral low back pain with bilateral sciatica Take 1 tablet (5 mg total) by mouth every 12 (twelve) hours as needed for Anxiety. 10 tablet 11/07/2023 4 diazePAM (VALIUM) 5 MG tabletIndications :Chronic low back pain, unspecified back pain laterality, unspecified whether sciatica present Take 2 tablets 30-60 minutes prior to scheduled MRI 2 tablet 12/24/2023 4 estradiol (ESTRACE) 2 MG tabletIndications :Menopausal and female climacteric states Take 1 tablet (2 mg total) by mouth daily. 28 tablet 2 03/18/2023 4 fluticasone propionate (FLONASE) 50 MCG/ACT nasal spray 2 sprays by Each Nostril route daily. SHAKE LIQUID 03/28/2022 4 gabapentin (NEURONTIN) 300 MG capsuleIndication s:Chronic left shoulder pain Take 2 capsules (600 mg total) by mouth every evening for 30 days. 60 capsule 1 12/22/2023 4 progesterone (PROMETRIUM) 100 MG capsuleIndication s:Menopausal and female climacteric states take 1 capsule by mouth every day 90 capsule 1 06/10/2023 4 documented as of this encounter Progress Notes * Padmaja Marie, PT - 01/09/2024 8:30 AM CSTEncounter addended by: Padmaja Marie, PT on: 01/09/2024 1:55 PM Actions taken: Episode edited, Chief Complaint modified TIRE BUILDER * Padmaja Marie, PT - 01/09/2024 8:30 AM CST Physical Therapy Visit Note: Patient Name: Oumou Middleton Diagnosis: Left shoulder pain (primary encounter diagnosis) SUBJECTIVE Therapy Visit Start Time: 829 Stop Time: 919 Time Calculation (min): 50 min Treatment Day: 15 for SH/4 for LB Total Approved Visits: 20 for [...] exacerbated early Oct. 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[employer], [employer] Job Duties: Has help at work to lift things currently Subjective Note: Manipulation for shoulder got cancelled because she had bronchitis. Only days available to [facility] were the day before linda or hermann de la cruz so she decided to move it to Mar 02. Her arm has actually been okay except for yesterday she started getting tingling and pain in the usual spot again, describes it as nerve pain. Cannot even twist her hand up or down now. Huge knot in that area. Cannot even turn the door knob which she used to be able to do. Was told to save her PT until her manipulation but does not want to lose progress and is getting new insurance anyways. Says she triedto call to cancel her previous few visits but did not have service - went to [facility] to fiber picker hernew service dog. Reported Falls since last visit: no Medications changes since last visit : no OBJECTIVE Treatment provided today: Therapeutic Exercise - 47387 Number of Minutes - 29867: 35 Exercise: NEXT- Pulleys scaption, butterfly x 2-3 min each (longer holds) with MHP Exercise: next- Table slides (longer holds) flexion, scaption, ER x [address] each [address] (chair laterally attable) Exercise: next - Supine cane flex x 10 Exercise: PROM L shoulder all planes x 20 min (supine, with MHP held down by sheet) LLLD Exercise: next- chin tucks supine (gentle) Exercise: HELD- hip IR/ER PROM in supine x 10 each (slow,gentle, longer holds into IR) Exercise: HELD- supine with MHP to low back, LEs on orange SB: LTR, distraction, DKTC x 15 Exercise: HELD- supine with MHP to low back: hamstring stretching 20 x 3 each, held- gentle sciatic nerve glides x 5 each LE Exercise: HELD- slant board L3 x 2 min Patient/Family Education: Home exercise program, Edema management Other (Comments): Time also includes education on PT POC, home modalities, edema management. Manual Therapy - 28636 Number of Minutes - 16019: 15 Instrument Assisted STM: IASTM (no cups) to L upper arm (supine, pillow under LUE) attempting to disperse swelling in mid humerus area Modalities Non-Timed Hot Pack - 61261: MHP to L shoulder and low back in supine today during tx Education Was Education Provided: Yes Topic: ex technique, PT POC Recipient: Patient Method: Verbal, Demonstration Response: Verbalized understanding, Asked questions ASSESSMENT Assessment Note: Pt returns to PT today after about 10 days. She continues with severe limitations throughout all planes of L shoulder. Pronation/supination limited and painful as well. Performed PROM at low load/long duration holds using MHP to control pain and promote relaxation. Also performed IASTM in attempt to decrease pain as well as control mild edema noted to upper arm upon entering clinic today. Will continue with current POC addressing both SH and back regions as requested by patient. Continue on Functional Deficit of: L shoulder pain with dressing, bathing, work, sleep PLAN Plan Next Visit Plan: Continue progressing activities as tolerated Total Time Total Time in Minutes: 50 Timed Code Treatment Minutes : 50 TIRE BUILDER documented in this encounter Plan of Treatment Upcoming Encounters Date Type Department Care Team (Late st Contact Info) Description 02/12/2024 9:00 AM CORD TIRE BUILDER Appointment [facility] [address] [place] [address] [place] [address] [place] [address] [place] [address] [place] [address] 02/12/2024 2:00 PM CORD TIRE BUILDER Appointment [address] [address] [place] [address] [place] [address] 02/16/2024 9:00 AM CORD TIRE BUILDER Appointment [facility] [address] [place] [address] [place] [address] [place] [address] [place] [address] [place] [address] 02/19/2024 8:45 AM CORD TIRE BUILDER Appointment [facility] [address] [place] [address] [place] [address] [place] [address] [place] [address] [place] [address] 02/19/2024 9:00 AM CORD TIRE BUILDER Appointment [facility] [address] [place] [address] [place] [address] [place] [address] [place] [address] [place] [address] 02/23/2024 9:00 AM CORD TIRE BUILDER Appointment [facility] [address] [place] [address] [place] [address] [place] [address] [place] [address] [place] [address] 02/24/2024 1:30 PM CORD TIRE BUILDER Appointment [facility] [address] [place] [address] Ihsan Logan, [address] [place] [address] 02/26/2024 9:00 AM CORD TIRE BUILDER Appointment [facility] [address] [place] [address] [place] [address] [place] [address] [place] [address] [place] [address] 02/26/2024 9:15 AM CORD TIRE BUILDER Appointment [facility] [address] [place] [address] [place] [address] [place] [address] [place] [address] [place] [address] 03/01/2024 9:00 AM CORD TIRE BUILDER Appointment [facility] [address] [place] [address] [place] [address] [place] [address] [place] [address] [place] [address] Lorene Branch, [employer] 03/02/2024 12:27 PM CORD TIRE BUILDER Hospital Encounter [address] [address] [place] [address] [place] [address] 03/02/2024 12:27 PM CORD TIRE BUILDER - 03/02/2024 1:07 PM CORD TIRE BUILDER Surgery [facility] [address] [place] [address] [place] [address] [place] [address] MANIPULATION SHOULDER 03/05/2024 9:00 AM CORD TIRE BUILDER Appointment [facility] [address] [place] [address] [place] [address] [place] [address] Lorene Branch, [employer] 03/08/2024 9:00 AM CORD TIRE BUILDER Appointment [facility] [address] [place] [address] [place] [address] [place] [address] Lorene Branch, [employer] 03/11/2024 9:15 AM CORD TIRE BUILDER Appointment [facility] [address] [place] [address] [place] [address] [place] [address] Lorene Branch, [employer] 03/15/2024 9:00 AM CORD TIRE BUILDER Appointment [facility] [address] [place] [address] [place] [address] [place] [address] Lorene Branch, [employer] 03/18/2024 9:15 AM CORD TIRE BUILDER Appointment [facility] [address] [place] [address] [place] [address] [place] [address] Lorene Branch, [employer] 03/22/2024 9:00 AM CORD TIRE BUILDER Appointment [facility] [address] [place] [address] [place] [address] [place] [address] Jose CarlosChantal hernandezreginald Kennedy, [employer] 03/25/2024 9:15 AM CORD TIRE BUILDER Appointment [facility] [address] [place] [address] [place] [address] [place] [address] Jose CarlosLorene hernandez Marcia, [employer] 04/21/2024 11:20 AM CORD TIRE BUILDER Office Visit [facility] Family & Internal Medicine - [place] [address] [place] [address] [place] [address] [place] [address] Scheduled Procedures Name Priority Associated Diagnoses Date/Ti me MANIPULATION SHOULDER Adhesive capsulitis of left shoulder 03/02/2024 12:27 PM CORD TIRE BUILDER INJECTION JOINT Adhesive capsulitis of left shoulder 03/02/2024 12:27 PM CORD TIRE BUILDER documented as of this encounter Visit Diagnoses Diagnosis Frozen shoulder- Primary Adhesive capsulitis of shoulder Left shoulder pain- Primary Pain in joint, shoulder region Adhesive capsulitis of left shoulder Adhesive capsulitis of shoulder documented in this encounter Additional Health Concerns Assessment Noted Time PHQ-9 Depression Total Score: 24 024 3:24 PM CDT documented as of this encounter Care Teams [place] Relationship Specialty [place] [address] [place] [address] PCP - General Physician Fur Blowing Machine Operator Medical 09/16/23 documented as of this encounter
--- OUTSIDE RECORDS SUMMARY | 2024-02-12 03:28 | XMS_ITS | Encounter Summary ---
Author Organization [facility] Address [facility]6 [facility]. [place], [place] [id number] [place] [address] Care Team Providers Care Dynamite Packing Machine Operator Name Role Phone Holger Soriano Primary Care Provider [phone] Encounter Details Date Type Department Care Team (Latest Contact Info) Description 02/05/2024 Travel Social History Tobacco Use Types Packs/Day [...] PM CDT documented as of this encounter Plan of Treatment Upcoming Encounters Date Type Department Care Team (Late st Contact Info) Description 02/12/2024 9:00 AM RATTLE LEAK AND SQUEAK REPAIRER Appointment [facility] Outpatient Rehab [address] [place], [place] [id number] [place] [address] [place], [place] [id number] [place] [address] [place] [address] 02/12/2024 2:00 PM RATTLE LEAK AND SQUEAK REPAIRER Appointment [facility] [address] [place] [address] [place] [address] [place] [address] 02/16/2024 9:00 AM RATTLE LEAK AND SQUEAK REPAIRER Appointment [facility] Outpatient Rehab [address] [place] [address] [place] [address] [place] [address] [place] [address] [place] [address] 02/19/2024 8:45 AM RATTLE LEAK AND SQUEAK REPAIRER Appointment [facility]patient Rehab [address] [place] [address] [place] [address] [place] [address] [place] [address] [place] [address] 02/19/2024 9:00 AM RATTLE LEAK AND SQUEAK REPAIRER Appointment [facility] Outpatient Rehab [address] [place] [address] [place] [address] [place] [address] [place] [address] [place] [address] 02/23/2024 9:00 AM RATTLE LEAK AND SQUEAK REPAIRER Appointment [facility]hab [address] [place] [address] [place] [address] [place] [address] [place] [address] [place] [address] 02/24/2024 1:30 PM RATTLE LEAK AND SQUEAK REPAIRER Appointment [facility] [place] [address] [place] [address] [place] [address] [place] [address] 02/26/2024 9:00 AM RATTLE LEAK AND SQUEAK REPAIRER Appointment [facility]hab [address] [place] [address] [place] [address] [place] [address] [place] [address] [place] [address] 02/26/2024 9:15 AM RATTLE LEAK AND SQUEAK REPAIRER Appointment [facility]hab [address] [place] [address] [place] [address] [place] [address] [place] [address] [place] [address] 03/01/2024 9:00 AM RATTLE LEAK AND SQUEAK REPAIRER Appointment [facility]hab [address] [place] [address] [place] [address] [place] [address] [place] [address] [place] [address] Lorene Branch, DERRICK MAN 03/02/2024 12:27 PM RATTLE LEAK AND SQUEAK REPAIRER Hospital Encounter [facility] [address] [place] [address] [place] [address] [place] [address] 03/02/2024 12:27 PM RATTLE LEAK AND SQUEAK REPAIRER - 03/02/2024 1:07 PM RATTLE LEAK AND SQUEAK REPAIRER Surgery [facility] Surgery [address] [place] [address] [place] [address] [place] [address] MANIPULATION SHOULDER 03/05/2024 9:00 AM RATTLE LEAK AND SQUEAK REPAIRER Appointment [facility] [address] [place] [address] [place] [address] [place] [address] Lorene Branch, DERRICK MAN 03/08/2024 9:00 AM RATTLE LEAK AND SQUEAK REPAIRER Appointment [facility] [address] [place] [address] [place] [address] [place] [address] Lorene Branch, DERRICK MAN 03/11/2024 9:15 AM RATTLE LEAK AND SQUEAK REPAIRER Appointment [facility] [address] [place] [address] [place] [address] [place] [address] Lorene Branch, DERRICK MAN 03/15/2024 9:00 AM RATTLE LEAK AND SQUEAK REPAIRER Appointment [facility] [address] [place] [address] [place] [address] [place] [address] Lorene Branch, DERRICK MAN 03/18/2024 9:15 AM RATTLE LEAK AND SQUEAK REPAIRER Appointment [facility] [address] [place] [address] [place] [address] [place] [address] Lorene Branch, DERRICK MAN 03/22/2024 9:00 AM RATTLE LEAK AND SQUEAK REPAIRER Appointment [facility] [address] [place] [address] [place] [address] [place] [address] Lorene Branch, DERRICK MAN 03/25/2024 9:15 AM RATTLE LEAK AND SQUEAK REPAIRER Appointment [facility] [address] [place] [address] [place] [address] [place] [address] Lorene Branch, DERRICK MAN 04/21/2024 11:20 AM RATTLE LEAK AND SQUEAK REPAIRER Office Visit [facility] Family & Internal Medicine - [address] [address] [place] [address] [place] [address] Scheduled Procedures Name Priority Associated Diagnoses Date/Ti me MANIPULATION SHOULDER Adhesive capsulitis of left shoulder 03/02/2024 12:27 PM RATTLE LEAK AND SQUEAK REPAIRER INJECTION JOINT Adhesive capsulitis of left shoulder 03/02/2024 12:27 PM RATTLE LEAK AND SQUEAK REPAIRER documented as of this encounter Visit Diagnoses Not on filedocumented in this encounter Additional Health Concerns Assessment Noted Time PHQ-9 Depression Total Score: 024 3:24 PM CDT documented as of this encounter Care Teams Dynamite Packing Machine Operator Relationship Specialty [place] [address] [place] [address] PCP - General Physician Metal Alloy Scientist Medical 09/16/23 documented as of this encounter
--- OUTSIDE RECORDS SUMMARY | 2024-02-12 03:28 | XMS_ITS | Encounter Summary ---
Author Organization [facility] Address [facility]. [place], [place] [address] [place] [address] Care Team Providers Care Dietetics Teacher Name Role Phone Holger Soriano Primary Care Provider [phone] Encounter Details Date Type Department Care Team (Latest Contact Info) Description 01/09/2024 Travel Social History Tobacco Use Types Packs/Day [...] st Contact Info) Description 02/12/2024 9:00 AM ACTIVITIES LEADER Appointment [facility] Outpatient Rehab [address] [place], [place] [id number] [place] [address] [place], [place] [id number] [place] [address] [place] [address] 02/12/2024 2:00 PM ACTIVITIES LEADER Appointment [facility] [place] [address] [place] [address] [place] [address] [place] [address] 02/16/2024 9:00 AM ACTIVITIES LEADER Appointment [facility] Outpatient Rehab [address] [place] [address] [place] [address] [place] [address] [place] [address] [place] [address] 02/19/2024 8:45 AM ACTIVITIES LEADER Appointment [facility]patient [facility]hab [address] [place] [address] [place] [address] [place] [address] [place] [address] [place] [address] 02/19/2024 9:00 AM ACTIVITIES LEADER Appointment [facility]patient [facility]hab [address] [place] [address] [place] [address] [place] [address] [place] [address] [place] [address] 02/23/2024 9:00 AM ACTIVITIES LEADER Appointment [facility]hab [address] [place] [address] [place] [address] [place] [address] [place] [address] [place] [address] 02/24/2024 1:30 PM ACTIVITIES LEADER Appointment [facility] MRI [address] [place] [address] [place] [address] [place] [address] 02/26/2024 9:00 AM ACTIVITIES LEADER Appointment [facility]patient [facility]hab [address] [place] [address] [place] [address] [place] [address] [place] [address] [place] [address] 02/26/2024 9:15 AM ACTIVITIES LEADER Appointment [facility]hab [address] [place] [address] [place] [address] [place] [address] [place] [address] [place] [address] 03/01/2024 9:00 AM ACTIVITIES LEADER Appointment [facility]hab [address] [place] [address] [place] [address] [place] [address] [place] [address] [place] [address] Lorene Branch, PATTERNMAKER APPRENTICE METAL 03/02/2024 12:27 PM ACTIVITIES LEADER Hospital Encounter [facility] Surgery [address] [place] [address] [place] [address] [place] [address] 03/02/2024 12:27 PM ACTIVITIES LEADER - 03/02/2024 1:07 PM ACTIVITIES LEADER Surgery [facility] Surgery [address] [place] [address] [place] [address] [place] [address] MANIPULATION SHOULDER 03/05/2024 9:00 AM ACTIVITIES LEADER Appointment [facility] Out[facility]hab [address] [place] [address] [place] [address] [place] [address] Lorene Branch, PATTERNMAKER APPRENTICE METAL 03/08/2024 9:00 AM ACTIVITIES LEADER Appointment [facility] [address] [place] [address] [place] [address] [place] [address] Lorene Branch, PATTERNMAKER APPRENTICE METAL 03/11/2024 9:15 AM ACTIVITIES LEADER Appointment [facility] [address] [place] [address] [place] [address] [place] [address] Lorene Branch, PATTERNMAKER APPRENTICE METAL 03/15/2024 9:00 AM ACTIVITIES LEADER Appointment [facility] [address] [place] [address] [place] [address] [place] [address] Lorene Branch, PATTERNMAKER APPRENTICE METAL 03/18/2024 9:15 AM ACTIVITIES LEADER Appointment [facility] [address] [place] [address] [place] [address] [place] [address] Lorene Branch, PATTERNMAKER APPRENTICE METAL 03/22/2024 9:00 AM ACTIVITIES LEADER Appointment [facility] [address] [place] [address] [place] [address] [place] [address] Lorene Branch, PATTERNMAKER APPRENTICE METAL 03/25/2024 9:15 AM ACTIVITIES LEADER Appointment [facility] [address] [place] [address] [place] [address] [place] [address] Lorene Branch, PATTERNMAKER APPRENTICE METAL 04/21/2024 11:20 AM ACTIVITIES LEADER Office Visit [facility] Family & Internal Medicine - [address] [address] [place] [address] [place] [address] Scheduled Procedures Name Priority Associated Diagnoses Date/Ti me MANIPULATION SHOULDER Adhesive capsulitis of left shoulder 03/02/2024 12:27 PM ACTIVITIES LEADER INJECTION JOINT Adhesive capsulitis of left shoulder 03/02/2024 12:27 PM ACTIVITIES LEADER documented as of this encounter Visit Diagnoses Not on filedocumented in this encounter Additional Health Concerns Assessment Noted Time PHQ-9 Depression Total Score: 024 3:24 PM CDT documented as of this encounter Care Teams Dietetics Teacher Relationship Specialty [place] [address] [place] [address] PCP - General Physician Business Law Professor Medical 09/16/23 documented as of this encounter
--- OUTSIDE RECORDS SUMMARY | 2024-02-12 03:28 | XMS_ITS | Encounter Summary ---
Author Organization [facility] Address [facility] [place] [address] [place] [address] Care Team Providers Care Grease Monkey Name Role Phone Holger Soriano Primary Care Provider [phone] Reason for Visit * Reason Comments Follow Up 1 month follow up Medication Management Sinus Problem Pt c/o sinus congest ion X 3 daysPt completed antibiotics for same symptom 1 week ago Encounter Details Date Type Department Care Team (Late st Contact Info) Description 01/20/2024 10:20 AM PRINTED CIRCUIT DESIGNER Office Visit [facility] Medical [facility] Family & Internal Medicine [facility] [id number] [place] [phone] Holger Soriano [place] [id number] [place] [phone] Follow Up (1 month follow up); Medication Management; Sinus Problem (Pt c/o sinus congestion X 3 days/Pt completed antibiotics for same symptom 1 week ago) Social History Tobacco Use Types Packs/Day Years [...] PM CDT documented as of this encounter Last Filed Vital Signs Vital Sign Reading Time Taken Comments Blood Pressure 127/85 01/20/2024 10:11 AM PRINTED CIRCUIT DESIGNER Pulse 84 01/20/2024 10:11 AM PRINTED CIRCUIT DESIGNER Temperature 36.8 ??C (98.2 ??F) 01/20/2024 10:[address] Respiratory Rate 18 01/20/2024 10:11 AM PRINTED CIRCUIT DESIGNER Oxygen Saturation 100% 01/20/2024 10:11 AM PRINTED CIRCUIT DESIGNER Inhaled Oxygen Concentration - - Weight 88 kg (194 lb) 01/20/2024 10:11 AM PRINTED CIRCUIT DESIGNER Height 159.4 cm (5' 2.75 ) 01/20/2024 10:[address] Body Mass Index 34.64 01/20/2024 10:11 AM PRINTED CIRCUIT DESIGNER documented in this encounter Progress Notes * TYLER Weaver - 01/20/2024 10:20 AM CST Reason for Visit: Follow Up (1 month follow up), Medication Management, and Sinus Problem (Pt c/o sinus congestion X 3 days/Pt completed antibiotics for same symptom 1 week ago) History of Present Illness: 48-year-old female here for follow-up on left shoulder pain. Currently seeing Dr. Logan for this and undergoing physical therapy. Possible neck being the etiology of her pain was evaluated with MRIshowing broad-based disc bulge with mild protrusion and to the spinal canal at level C5-C6. No encroachment on the neural foramina bilaterally seen. She is scheduled to have a exam under anesthesia for presumed adhesive capsulitis on March 02, [address] Logan. Patient still having pain going down the arm. She states she has dry needling by day and at physical therapy that this relieves the pain 80%. This makes me believe that this pain that she is having is muscular in nature. Complains of sinus pressure pain for 4 to 5 days. She was treated for this earlier this month and is now coming back again. Complains of green thick mucus as well. No fever no chills no shortness of breath or wheezing. Complains of persistent foul-smelling rash in the intertriginous areas of her abdominal fold and underneath her breasts. She tried the Zeasorb powder does not seem to keep it away but does help. We will try some nystatin powder in combination with this. Perimenopausal symptoms with hot flashes especially at nighttime. Patient is currently on 2 mg of estradiol and 100 mg progesterone daily. She was given this by previous PCP. I would recommend she see PLANT AND EQUIPMENT WORKER for further evaluation and treatment of this. She is also already on Cymbalta so an SSRI most likely would not help with her current symptoms. Continue hormonal medication and follow-up with PLANT AND EQUIPMENT WORKER. Patient has not had a normal menses since May 2023. Follow Up Sinus Problem ROS: Review of Systems Medications: Current Outpatient Medications: albuterol sulfate HFA 108 (90 Base) MCG/ACT inhaler, Inhale 2 puffs into the lungs every 4 (four) hours as needed for Wheezing or Shortness of breath., Disp: 18 g, Rfl: 0 amoxicillin (AMOXIL) 875 MG tablet, Take 1 tablet (875 mg total) by mouth 2 (two) times daily for 10 days., Disp: 20 tablet, Rfl: 0 cyclobenzaprine (FLEXERIL) 10 MG tablet, Take 1 tablet (10 mg total) by mouth as needed. FOR MUSCLESPASMS, Disp: 90 tablet, Rfl: 0 DULoxetine (CYMBALTA) 30 MG capsule, Take 1 capsule (30 mg total) by mouth daily., Disp: 180 capsule, Rfl: 1 estradiol (ESTRACE) 2 MG tablet, Take 1 tablet (2 mg total) by mouth daily., Disp: 90 tablet, Rfl: 0 fluticasone propionate (FLONASE) 50 MCG/ACT nasal spray, 2 sprays by Nasal route daily for 30 days.2 puffs each nostril twice a day for 3 days, then 2 puffs each nostril daily, Disp: 18.2 mL, Rfl: 1 gabapentin (NEURONTIN) 300 MG capsule, Take 1 tablet in the morning and 2 tablets at night time., Disp: 90 capsule, Rfl: 1 meloxicam (MOBIC) 15 MG tablet, TAKE 1 TABLET (15 MG TOTAL) BY MOUTH DAILY., Disp: 30 tablet, Rfl: 1 nystatin (MYCOSTATIN) powder, Apply topically 2 (two) times daily for 30 days., Disp: 60 g, Rfl: 3 progesterone (PROMETRIUM) 100 MG capsule, Take 1 capsule (100 mg total) by mouth daily., Disp: 90 capsule, Rfl: 0 QUEtiapine (SEROQUEL) 100 MG tablet, Take 1 tablet (100 mg total) by mouth nightly at bedtime. at bedtime, Disp: 90 tablet, Rfl: 0 semaglutide (OZEMPIC) 1 mg/dose injection (PEN), Inject 1 mg into the skin once a week. Indications: Diabetes, Disp: 3 mL, Rfl: 3 SUMAtriptan (IMITREX) 25 MG tablet, Take 1 tablet (25 mg total) by mouth daily as needed for Migraine. Max of 8 tablets (200 mg) in a 24 hour period., Disp: 30 tablet, Rfl: 2 terconazole (TERAZOL 3) 0.8 % vaginal cream, Place 1 applicator vaginally nightly at bedtime., Disp: 1 g, Rfl: 0 Allergies Allergen Reactions Parada Anaphylaxis Iodine Rash, Hives and Other (see comment) Reaction: Hives, Iodinated Contrast Media Unknown Itching Lidocaine Hives Ranitidine Unknown Risperidone Other (see comment) Reaction: OTHER REACTION Past Medical History: Diagnosis Date ADHD Asthma ([facility]) COPD (chronic obstructive pulmonary disease) ([facility]) DINESH (obstructive sleep apnea) Past Surgical History: Procedure Laterality Date EAR CARTILAGE GRAFT TO FACE LAPAROSCOPIC CHOLECYSTECTOMY 2006 had reaction to anesthesia with this procedure REPAIR OF NASAL SEPTUM hemorrhage SINUS SURGERY PROC UNLISTED SPINAL FUSION,ANT,EA ADNL LEVEL L4-L5 Social History Socioeconomic History Marital status: Tobacco Use Smoking status: Former Current packs/day: 0.00 Types: Cigarettes Quit date: 03/18/2023 Years since quittin.8 Passive exposure: Current Smokeless tobacco: Never Tobacco comments: na Vaping Use Vaping status: Never Used Substance and Sexual Activity Alcohol use: Yes Comment: socially Drug use: Never Comment: na Social History Narrative Lives with E-Cigarettes Questions Responses E-Cigarette Use Never User Cartridges/Day na Family History Problem Relation Name Age of Onset Thyroid cancer Mother Dementia Mother Ovarian Cancer Mother Osteoarthritis Mother Endometriosis Sister Thyroid cancer Sister Other (thyroid cancer) Sister Dementia Maternal Grandmother Family Status Relation Name Status Mother (Not Specified) Sister (Not Specified) MGM (Not Specified) No partnership data on file Physical Exam Vitals reviewed. Constitutional: Appearance: Normal appearance. HENT: Head: Comments: TTP over frontal sinuses Right Ear: Tympanic membrane normal. Left Ear: Tympanic membrane normal. Nose: Nose normal. Mouth/Throat: Mucous membranes are moist. Oropharynx is clear. Eyes: Pupils: Pupils are equal, round, and reactive to light. Cardiovascular: Rate and Rhythm: Normal rate and regular rhythm. Pulses: Normal pulses. Heart sounds: Normal heart sounds. No murmur heard. No gallop. Pulmonary: Effort: Pulmonary effort is normal. No respiratory distress. Breath sounds: Normal breath sounds. No wheezing or rales. Musculoskeletal: Cervical back: Normal range of motion. Skin: General: Skin is warm and dry. Capillary Refill: Capillary refill takes less than 2 seconds. Neurological: Mental Status: She is alert. Psychiatric: Mood and Affect: Mood normal. Behavior: Behavior normal. Thought Content: Thought content normal. Judgment: Judgment normal. Filed Vitals: 01/20/24 1011 BP: 127/85 Pulse: 84 Resp: 18 Temp: 98.2 ??F (36.8 ??C) TempSrc: Core SpO2: 100% Weight: 88 kg (194 lb) Height: 1.594 m (5' 2.75 ) Diagnoses/Impression: 1. Chronic left shoulder pain gabapentin (NEURONTIN) 300 MG capsule 2. Intertrigo nystatin (MYCOSTATIN) powder 3. Acute non-recurrent frontal sinusitis fluticasone propionate (FLONASE) 50 MCG/ACT nasal spray amoxicillin (AMOXIL) 875 MG tablet 4. Menopausal and female climacteric states progesterone (PROMETRIUM) 100 MG capsule estradiol (ESTRACE) 2 MG tablet Recommendations and Plan: Medications as directed follow-up in 3 months. Orders Placed This Encounter gabapentin (NEURONTIN) 300 MG capsule nystatin (MYCOSTATIN) powder fluticasone propionate (FLONASE) 50 MCG/ACT nasal spray amoxicillin (AMOXIL) 875 MG tablet progesterone (PROMETRIUM) 100 MG capsule estradiol (ESTRACE) 2 MG tablet Reviewed and updated this visit by provider: Allergies TYLER WEAVER Referring Provider: No ref. provider found PCP: TYLER WEAVER TED CIRCUIT DESIGNER TED CIRCUIT DESIGNER documented in this encounter Plan of Treatment Upcoming Encounters Date Type Department Care Team (Late st Contact Info) Description 02/12/2024 9:00 AM PRINTED CIRCUIT DESIGNER Appointment [facility] [address] [place] [address] [place] [address] [place] [address] [place] [address] [place] [address] 02/12/2024 2:00 PM PRINTED CIRCUIT DESIGNER Appointment [facility] [address] [place] [address] [place] [address] [place] [address] 02/16/2024 9:00 AM PRINTED CIRCUIT DESIGNER Appointment [facility] [address] [place] [address] [place] [address] [place] [address] [place] [address] [place] [address] 02/19/2024 8:45 AM PRINTED CIRCUIT DESIGNER Appointment [facility] [address] [place] [address] [place] [address] [place] [address] [place] [address] [place] [phone] 02/19/2024 9:00 AM PRINTED CIRCUIT DESIGNER Appointment [facility] [address] [place] [address] [place] [address] [place] [address] [place] [address] [place] [address] 02/23/2024 9:00 AM PRINTED CIRCUIT DESIGNER Appointment [facility] [address] [place] [address] [place] [address] [place] [address] [place] [address] [place] [address] 02/24/2024 1:30 PM PRINTED CIRCUIT DESIGNER Appointment [facility] [address] [place] [address] [place] [address] [place] [address] [place] [address] 02/26/2024 9:00 AM PRINTED CIRCUIT DESIGNER Appointment [facility] [address] [place] [address] [place] [address] [place] [address] [place] [address] [place] [address] 02/26/2024 9:15 AM PRINTED CIRCUIT DESIGNER Appointment [facility] [address] [place] [address] [place] [address] [place] [address] [place] [address] [place] [address] 03/01/2024 9:00 AM PRINTED CIRCUIT DESIGNER Appointment [facility] [address] [place] [address] [place] [address] [place] [address] [place] [address] [place] [address] Lorene Branch, CAROLA 03/02/2024 12:27 PM PRINTED CIRCUIT DESIGNER Hospital Encounter [address] [address] [place] [address] [place] [address] 03/02/2024 12:27 PM PRINTED CIRCUIT DESIGNER - 03/02/2024 1:07 PM [facility] Surgery [facility] [address] [place] [address] [place] [address] [place] [address] MANIPULATION SHOULDER 03/05/2024 9:00 AM PRINTED CIRCUIT DESIGNER Appointment [facility] [address] [place] [address] [place] [address] [place] [address] Lorene Branch, LAWN MOWER REPAIRER 03/08/2024 9:00 AM PRINTED CIRCUIT DESIGNER Appointment [facility] [address] [place] [address] [place] [address] [place] [address] Lorene Branch, LAWN MOWER REPAIRER 03/11/2024 9:15 AM PRINTED CIRCUIT DESIGNER Appointment [facility] [address] [place] [address] [place] [address] [place] [address] Lorene Branch, LAWN MOWER REPAIRER 03/15/2024 9:00 AM PRINTED CIRCUIT DESIGNER Appointment [facility] [address] [place] [address] [place] [address] [place] [address] Lorene Branch, LAWN MOWER REPAIRER 03/18/2024 9:15 AM PRINTED CIRCUIT DESIGNER Appointment [facility] [address] [place] [address] [place] [address] [place] [address] Lorene Branch, LAWN MOWER REPAIRER 03/22/2024 9:00 AM PRINTED CIRCUIT DESIGNER Appointment [facility] [address] [place] [address] [place] [address] [place] [address] Lorene Branch, LAWN MOWER REPAIRER 03/25/2024 9:15 AM PRINTED CIRCUIT DESIGNER Appointment [facility] [address] [place] [address] [place] [address] [place] [address] Lorene Branch, LAWN MOWER REPAIRER 04/21/2024 11:20 AM PRINTED CIRCUIT DESIGNER Office Visit [facility] Medical Group Family & Internal Medicine [facility] [address] [place] [phone] [place] [address] [place] [address] Scheduled Procedures Name Priority Associated Diagnoses Date/Ti me MANIPULATION SHOULDER Adhesive capsulitis of left shoulder 03/02/2024 12:27 PM PRINTED CIRCUIT DESIGNER INJECTION JOINT Adhesive capsulitis of left shoulder 03/02/2024 12:27 PM PRINTED CIRCUIT DESIGNER documented as of this encounter Visit Diagnoses Diagnosis Frozen shoulder- Primary Adhesive capsulitis of shoulder Chronic left shoulder pain- Primary Pain in joint, shoulder region Intertrigo Other specified erythematous condition Acute non-recurrent frontal sinusitis Menopausal and female climacteric states Adhesive capsulitis of left shoulder Adhesive capsulitis of shoulder documented in this encounter Additional Health Concerns Assessment Noted Time PHQ-9 Depression Total Score: 24 024 3:24 PM CDT documented as of this encounter Care Teams Grease Monkey Relationship Specialty [place] [address] [place] [address] PCP - General Physician [facility] 09/16/23 documented as of this encounter
--- OUTSIDE RECORDS SUMMARY | 2024-02-12 03:28 | XMS_ITS | Encounter Summary ---
Author Organization [facility] Address [facility] 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 Does not want to have surgery during the holidays. New surgery date scheduled for 03/02/2024. Patients insurance is switching as of 02/25/2024. Advised patient that I need her new insurance information as soon as possible for her surgery to get authorized. Patient aware that, if insurance doesnot authorize in time, she may have to push back her surgery from 03/02/2024. [facility] surgery team and Dr. Logan notified. SEWER * Anali Cormier RN - 12/30/2023 2:54 PM CST Attempted to contact patient. No answer. Left a voice message asking the patient to return my call regarding her upcoming surgery and recent URI diagnosis. SEWER documented in this encounter Plan of Treatment Upcoming Encounters Date Type Department Care Team (Late st Contact Info) Description 02/12/2024 9:00 AM HEEL SEWER Appointment [facility] [address] [place] [address] [place] [address] [place] [address] [place] [address] [place] [address] 02/12/2024 2:00 PM HEEL SEWER Appointment [facility] MRI [address] [place] [address] [place] [address] [place] [address] 02/16/2024 9:00 AM HEEL SEWER Appointment [facility] [address] [place] [address] [place] [address] [place] [address] [place] [address] [place] [address] 02/19/2024 8:45 AM HEEL SEWER Appointment [facility] [address] [place] [address] [place] [address] [place] [address] [place] [address] [place] [address] 02/19/2024 9:00 AM HEEL SEWER Appointment [facility] [address] [place] [address] [place] [address] [place] [address] [place] [address] [place] [address] 02/23/2024 9:00 AM HEEL SEWER Appointment [facility] [address] [place] [address] [place] [address] [place] [address] [place] [address] [place] [address] 02/24/2024 1:30 PM HEEL SEWER Appointment [facility] MRI [address] [place] [address] [place] [address] [place] [address] 02/26/2024 9:00 AM HEEL SEWER Appointment [facility] [address] [place] [address] [place] [address] [place] [address] [place] [address] [place] [address] 02/26/2024 9:15 AM HEEL SEWER Appointment [facility] [address] [place] [address] [place] [address] [place] [address] [place] [address] [place] [address] 03/01/2024 9:00 AM HEEL SEWER Appointment [facility] [address] [place] [address] [place] [address] [place] [address] [place] [address] [place] [address] Lorene Branch PTA 03/02/2024 12:27 PM HEEL SEWER Hospital Encounter [facility] Surgery [address] [place] [address] Ihsan Logan, [address] [place] [address] 03/02/2024 12:27 PM HEEL SEWER - 03/02/2024 1:07 PM HEEL SEWER Surgery [facility] [address] [place] [address] Logan IhsanDO [address] [place] [address] MANIPULATION SHOULDER 03/05/2024 9:00 AM HEEL SEWER Appointment [facility] [address] [place] [address] [place] [address] [place] [address] Lorene Branch, RODEO CLOWN 03/08/2024 9:00 AM HEEL SEWER Appointment [facility] [address] [place] [address] [place] [address] [place] [address] Lorene Branch, RODEO CLOWN 03/11/2024 9:15 AM HEEL SEWER Appointment [facility] [address] [place] [address] [place] [address] [place] [address] Lorene Branch, RODEO CLOWN 03/15/2024 9:00 AM HEEL SEWER Appointment [facility] [address] [place] [address] [place] [address] [place] [address] Lorene Branch, RODEO CLOWN 03/18/2024 9:15 AM HEEL SEWER Appointment [facility] [address] [place] [address] [place] [address] [place] [address] Lorene Branch, RODEO CLOWN 03/22/2024 9:00 AM HEEL SEWER Appointment [facility] [address] [place] [address] [place] [address] [place] [address] Lorene Branch, RODEO CLOWN 03/25/2024 9:15 AM HEEL SEWER Appointment [facility] [address] [place] [address] [place] [address] [place] [address] Lorene Branch, RODEO CLOWN 04/21/2024 11:20 AM HEEL SEWER Office Visit [facility] Family & Internal Medicine [address] [phone] [place] [address] [place], [place] [phone] Scheduled Procedures Name Priority Associated Diagnoses Date/Ti me MANIPULATION SHOULDER Adhesive capsulitis of left shoulder 03/02/2024 12:27 PM HEEL SEWER INJECTION JOINT Adhesive capsulitis of left shoulder 03/02/2024 12:27 PM HEEL SEWER documented as of this encounter Visit Diagnoses Not on filedocumented in this encounter Additional Health Concerns Assessment Noted Time PHQ-9 Depression Total Score: 24 024 3:24 PM CDT documented as of this encounter Care Teams Coating Machine Helper Relationship Specialty Start Date End Date Holger Soriano PA [address] [place] [address] PCP - General Physician Air Technician Medical 09/16/23 documented as of this encounter
--- OUTSIDE RECORDS SUMMARY | 2024-02-12 03:28 | XMS_ITS | Encounter Summary ---
Author Organization [facility] Address Critical access hospital6 [facility] [place] [address] [place] [address] Care Team Providers Care Senior Corporate Strategy Manager Name Role Phone Holger Soriano Primary Care Provider Reason for Referral * Surgical (Routine) - New Request Specialty Diagnoses / Procedures Referred By Shmuel angel Referred To Contact Diagnoses Adhesive capsulitis of left shoulder Procedures Case request operating room: MANIPULATION SHOULDER, [place] [address] [place] [address] Phone: tel: fax: Referral ID Status Reason Start Date Expiration Date V isits Requested Visits Authorized [id number] New Request 01/01/2024 12/31/2024 1 1 ICER Encounter Details Date Type Department Care Team (Late st Contact Info) Description 01/01/[address] [facility] [address] [place], [place] [id number] [place] [address] [place] [address] Social History Tobacco Use Types Packs/Day Years [...] st Contact Info) Description 02/12/2024 9:00 AM FISH ICER Appointment [facility]hab [address] [place] [address] [place] [address] [place] [address] [place] [address] [place] [address] 02/12/2024 2:00 PM FISH ICER [facility]oint[address] [facility] [address] [place] [address] [place] [address] [place] [address] 02/16/2024 9:00 AM FISH ICER Appointment [facility] Rehab [address] [place] [address] [place] [address] [place] [address] [place] [address] [place] [address] 02/19/2024 8:45 AM FISH ICER Appointment [facility] Outpatient Rehab [address] [place] [address] [place] [address] [place] [address] [place] [address] [place] [address] 02/19/2024 9:00 AM FISH ICER Appointment [facility] Outpatient Rehab [address] [place] [address] [place] [address] [place] [address] [place] [address] [place] [address] 02/23/2024 9:00 AM FISH ICER Appointment [facility] Outpatient Rehab [address] [place] [address] [place] [address] [place] [address] Holger Soriano, TYLER [address] [place] [address] 02/24/2024 1:30 PM FISH ICER Appointment [facility] [place] [address] [place] [address] Ihsan Logan, [address] [place] [address] 02/26/2024 9:00 AM FISH ICER Appointment [facility] Outpatient Rehab [address] [place] [address] [place] [address] [place] [address] [place] [address] [place] [address] 02/26/2024 9:15 AM FISH ICER Appointment [facility] Out[facility]hab [address] [place] [address] [place] [address] [place] [address] [place] [address] [place] [address] 03/01/2024 9:00 AM FISH ICER Appointment [facility] [address] [place] [address] [place] [address] [place] [address] [place] [address] [place] [address] Lorene Branch, CLEANING PORTER 03/02/2024 12:27 PM FISH ICER Hospital Encounter [facility] [address] [address] [place] [address] [place] [address] 03/02/2024 12:27 PM FISH ICER - 03/02/2024 1:07 PM FISH ICER Surgery [facility] Surgery [address] [place] [address] [place] [address] [place] [address] MANIPULATION SHOULDER 03/05/2024 9:00 AM FISH ICER Appointment [facility] [address] [place] [address] [place] [address] [place] [address] Lorene Branch, CLEANING PORTER 03/08/2024 9:00 AM FISH ICER Appointment [facility] [address] [place] [address] [place] [address] [place] [address] Lorene Branch, CLEANING PORTER 03/11/2024 9:15 AM FISH ICER Appointment [facility]hab [address] [place] [address] [place] [address] [place] [address] Lorene Branch, CLEANING PORTER 03/15/2024 9:00 AM FISH ICER Appointment [facility] [address] [place] [address] [place] [address] [place] [address] Lorene Branch, CLEANING PORTER 03/18/2024 9:15 AM FISH ICER Appointment [facility] [address] [place] [address] [place] [address] [place] [address] Lorene Branch, CLEANING PORTER 03/22/2024 9:00 AM FISH ICER Appointment [facility]hab [address] [place] [address] [place] [address] [place] [address] Lorene Branch, CLEANING PORTER 03/25/2024 9:15 AM FISH ICER Appointment [facility]hab [address] [place] [address] [place] [address] [place] [address] Lorene Branch, CLEANING PORTER 04/21/2024 11:20 AM FISH ICER Office Visit [facility] Family & Internal Medicine [facility] [address] [place] [address] [place] [address] [place] [address] Scheduled Procedures Name Priority Associated Diagnoses Date/Ti me MANIPULATION SHOULDER Adhesive capsulitis of left shoulder 03/02/2024 12:27 PM FISH ICER INJECTION JOINT Adhesive capsulitis of left shoulder 03/02/2024 12:27 PM FISH ICER documented as of this encounter Visit Diagnoses Diagnosis Adhesive capsulitis of left shoulder- Primary Adhesive capsulitis of shoulder Adhesive capsulitis of left shoulder Adhesive capsulitis of shoulder documented in this encounter Additional Health Concerns Assessment Noted Time PHQ-9 Depression Total Score: 024 3:24 PM CDT documented as of this encounter Care Teams Senior Corporate Strategy Manager Relationship Specialty [place] [address] [place] [address] PCP - General Physician Clinical Supervisor Medical 09/16/23 documented as of this encounter
--- OUTSIDE RECORDS SUMMARY | 2024-02-12 03:28 | XMS_ITS | Encounter Summary ---
Author Organization [facility] Address [facility]. [place], [place] [address] [place] [address] Care Team Providers Care Printer'S Devil Name Role Phone Holger Soriano Primary Care Provider [phone] Encounter Details Date Type Department Care Team (Latest Contact Info) Description 02/09/2024 Travel Social History Tobacco Use Types Packs/Day [...] st Contact Info) Description 02/12/2024 9:00 AM DENTAL HYGIENIST MOBILE COORDINATOR Appointment [facility] Outpatient Rehab [address] [place], [place] [id number] [place] [address] [place] [address] [place] [address] [place] [address] 02/12/2024 2:00 PM DENTAL HYGIENIST MOBILE COORDINATOR Appointment [facility] MRI [address] [place] [address] [place] [address] [place] [address] 02/16/2024 9:00 AM DENTAL HYGIENIST MOBILE COORDINATOR Appointment [facility] Outpatient Rehab [address] [place] [address] [place] [address] [place] [address] [place] [address] [place] [address] 02/19/2024 8:45 AM DENTAL HYGIENIST MOBILE COORDINATOR Appointment [facility] Outpatient Rehab [address] [place] [address] [place] [address] [place] [address] [place] [address] [place] [address] 02/19/2024 9:00 AM DENTAL HYGIENIST MOBILE COORDINATOR Appointment [facility] Outpatient Rehab [address] [place] [address] [place] [address] [place] [address] [place] [address] [place] [address] 02/23/2024 9:00 AM DENTAL HYGIENIST MOBILE COORDINATOR Appointment [facility] Outpatient Rehab [address] [place] [address] [place] [address] [place] [address] [place] [address] [place] [address] 02/24/2024 1:30 PM DENTAL HYGIENIST MOBILE COORDINATOR Appointment [facility] MRI [address] [place] [address] [place] [address] [place] [address] 02/26/2024 9:00 AM DENTAL HYGIENIST MOBILE COORDINATOR Appointment [facility] Outpatient Rehab [address] [place] [address] [place] [address] [place] [address] [place] [address] [place] [address] 02/26/2024 9:15 AM DENTAL HYGIENIST MOBILE COORDINATOR Appointment [facility] Outpatient Rehab [address] [place] [address] [place] [address] [place] [address] [place] [address] [place] [address] 03/01/2024 9:00 AM DENTAL HYGIENIST MOBILE COORDINATOR Appointment [facility] Outpatient Rehab [address] [place] [address] [place] [address] [place] [address] [place] [address] [place] [address] Lorene Branch, CONDUIT CLEANER 03/02/2024 12:27 PM DENTAL HYGIENIST MOBILE COORDINATOR Hospital Encounter [facility] Surgery [address] [place] [address] [place] [address] [place] [address] 03/02/2024 12:27 PM DENTAL HYGIENIST MOBILE COORDINATOR - 03/02/2024 1:07 PM DENTAL HYGIENIST MOBILE COORDINATOR Surgery [facility] Surgery [address] [place] [address] [place] [address] [place] [address] MANIPULATION SHOULDER 03/05/2024 9:00 AM DENTAL HYGIENIST MOBILE COORDINATOR Appointment [facility] Outpatient Rehab [address] [place] [address] [place] [address] [place] [address] Lorene Branch, CONDUIT CLEANER 03/08/2024 9:00 AM DENTAL HYGIENIST MOBILE COORDINATOR Appointment [facility] Outpatient Rehab [address] [place] [address] [place] [address] [place] [address] Lorene Branch, CONDUIT CLEANER 03/11/2024 9:15 AM DENTAL HYGIENIST MOBILE COORDINATOR Appointment [facility] Outpatient Rehab [address] [place] [address] [place] [address] [place] [address] Lorene Branch, CONDUIT CLEANER 03/15/2024 9:00 AM DENTAL HYGIENIST MOBILE COORDINATOR Appointment [facility] Outpatient Rehab [address] [place] [address] [place] [address] [place] [address] Lorene Branch, CONDUIT CLEANER 03/18/2024 9:15 AM DENTAL HYGIENIST MOBILE COORDINATOR Appointment [facility] Outpatient Rehab [address] [place] [address] [place] [address] [place] [address] Lorene Branch, CONDUIT CLEANER 03/22/2024 9:00 AM DENTAL HYGIENIST MOBILE COORDINATOR Appointment [facility] Outpatient Rehab [address] [place] [address] [place] [address] [place] [address] Lorene Branch, CONDUIT CLEANER 03/25/2024 9:15 AM DENTAL HYGIENIST MOBILE COORDINATOR Appointment [facility] Outpatient Rehab [address] [place] [address] [place] [address] [place] [address] Lorene Branch, CONDUIT CLEANER 04/21/2024 11:20 AM DENTAL HYGIENIST MOBILE COORDINATOR Office Visit [facility] Family & Internal Medicine - [address] [address] [place] [address] [place] [address] Scheduled Procedures Name Priority Associated Diagnoses Date/Ti me MANIPULATION SHOULDER Adhesive capsulitis of left shoulder 03/02/2024 12:27 PM DENTAL HYGIENIST MOBILE COORDINATOR INJECTION JOINT Adhesive capsulitis of left shoulder 03/02/2024 12:27 PM DENTAL HYGIENIST MOBILE COORDINATOR documented as of this encounter Visit Diagnoses Not on filedocumented in this encounter Additional Health Concerns Assessment Noted Time PHQ-9 Depression Total Score: 024 3:24 PM CDT documented as of this encounter Care Teams Printer'S Devil Relationship Specialty [place] [address] [place] [address] PCP - General Physician Glass Laminating Operator Medical 09/16/23 documented as of this encounter
--- OUTSIDE RECORDS SUMMARY | 2024-02-12 03:28 | XMS_ITS | Encounter Summary ---
Author Organization [facility] Address [facility]. [place], [place] [address] [place] [address] Care Team Providers Care International Marketing Intern Name Role Phone Holger Soriano Primary Care Provider [phone] Encounter Details Date Type Department Care Team (Latest Contact Info) Description 01/20/2024 Travel Social History Tobacco Use Types Packs/Day [...] st Contact Info) Description 02/12/2024 9:00 AM OIL DISTRIBUTOR Appointment [facility] Outpatient Rehab [address] [place], [place] [address] [place] [address] [place] [address] [place] [address] [place] [address] 02/12/2024 2:00 PM OIL DISTRIBUTOR Appointment [facility] MRI [address] [place] [address] [place] [address] [place] [address] 02/16/2024 9:00 AM OIL DISTRIBUTOR Appointment [facility] Outpatient Rehab [address] [place] [address] [place] [address] [place] [address] [place] [address] [place] [address] 02/19/2024 8:45 AM OIL DISTRIBUTOR Appointment [facility] Outpatient Rehab [address] [place] [address] [place] [address] [place] [address] [place] [address] [place] [address] 02/19/2024 9:00 AM OIL DISTRIBUTOR Appointment [facility] Outpatient Rehab [address] [place] [address] [place] [address] [place] [address] [place] [address] [place] [address] 02/23/2024 9:00 AM OIL DISTRIBUTOR Appointment [facility] Outpatient Rehab [address] [place] [address] [place] [address] [place] [address] [place] [address] [place] [address] 02/24/2024 1:30 PM OIL DISTRIBUTOR Appointment [facility] MRI [address] [place] [address] [place] [address] [place] [address] 02/26/2024 9:00 AM OIL DISTRIBUTOR Appointment [facility] Outpatient Rehab [address] [place] [address] [place] [address] [place] [address] [place] [address] [place] [address] 02/26/2024 9:15 AM OIL DISTRIBUTOR Appointment [facility] Outpatient Rehab [address] [place] [address] [place] [address] [place] [address] [place] [address] [place] [address] 03/01/2024 9:00 AM OIL DISTRIBUTOR Appointment [facility] Outpatient Rehab [address] [place] [address] [place] [address] [place] [address] [place] [address] [place] [address] Lorene Branch, PLACEMENT OFFICER 03/02/2024 12:27 PM OIL DISTRIBUTOR Hospital Encounter [facility] Surgery [address] [place] [address] [place] [address] [place] [address] 03/02/2024 12:27 PM OIL DISTRIBUTOR - 03/02/2024 1:07 PM OIL DISTRIBUTOR Surgery [facility] Surgery [address] [place] [address] [place] [address] [place] [address] MANIPULATION SHOULDER 03/05/2024 9:00 AM OIL DISTRIBUTOR Appointment [facility] Outpatient Rehab [address] [place] [address] [place] [address] [place] [address] Lorene Branch, PLACEMENT OFFICER 03/08/2024 9:00 AM OIL DISTRIBUTOR Appointment [facility] Outpatient Rehab [address] [place] [address] [place] [address] [place] [address] Lorene Branch, PLACEMENT OFFICER 03/11/2024 9:15 AM OIL DISTRIBUTOR Appointment [facility] Outpatient Rehab [address] [place] [address] [place] [address] [place] [address] Lorene Branch, PLACEMENT OFFICER 03/15/2024 9:00 AM OIL DISTRIBUTOR Appointment [facility] Outpatient Rehab [address] [place] [address] [place] [address] [place] [address] Lorene Branch, PLACEMENT OFFICER 03/18/2024 9:15 AM OIL DISTRIBUTOR Appointment [facility] Outpatient Rehab [address] [place] [address] [place] [address] [place] [address] Lorene Branch, PLACEMENT OFFICER 03/22/2024 9:00 AM OIL DISTRIBUTOR Appointment [facility] Outpatient Rehab [address] [place] [address] [place] [address] [place] [address] Lorene Branch, PLACEMENT OFFICER 03/25/2024 9:15 AM OIL DISTRIBUTOR Appointment [facility] Outpatient Rehab [address] [place] [address] [place] [address] [place] [address] Lorene Branch, PLACEMENT OFFICER 04/21/2024 11:20 AM OIL DISTRIBUTOR Office Visit [facility] Family & Internal Medicine - [address] [address] [place] [address] [place] [address] Scheduled Procedures Name Priority Associated Diagnoses Date/Ti me MANIPULATION SHOULDER Adhesive capsulitis of left shoulder 03/02/2024 12:27 PM OIL DISTRIBUTOR INJECTION JOINT Adhesive capsulitis of left shoulder 03/02/2024 12:27 PM OIL DISTRIBUTOR documented as of this encounter Visit Diagnoses Not on filedocumented in this encounter Additional Health Concerns Assessment Noted Time PHQ-9 Depression Total Score: 024 3:24 PM CDT documented as of this encounter Care Teams International Marketing Intern Relationship Specialty [place] [address] [place] [address] PCP - General Physician Oil Tank Car Cleaner Medical 09/16/23 documented as of this encounter
--- OUTSIDE RECORDS SUMMARY | 2024-02-12 03:28 | XMS_ITS | Encounter Summary ---
Author Organization [facility] Address [facility] [place] [address] [place] [address] Care Team Providers Care Media Production Operator Name Role Phone Holger Soriano Primary Care Provider [phone] Encounter Details Date Type Department Care Team (Late st Contact Info) Description 01/08/2024 11:59 PM VIRTUALIZATION CONSULTANT Anesthesia Event [facility] [address] [place], [place] [id number] Lalita Rodriguez, [address] [place] [address] Anesthesia Record Procedure Summary Procedure Name Responsible Anesthesiologist Anesthesia Start Time Anesthesia Stop Time MANIPULATION SHOULDER (Left: Shoulder) Events No events on file. Meds * Agents No agents on file. * Blood No blood administrations on file. Lines, Drains, and Airways No LDAs on file. documented in this encounter Social History Tobacco [...] PM CDT documented as of this encounter OR Notes * Anesthesia Preprocedure Evaluation - Laltia Rodriguez CRNA - 12/30/2023 12:26 PM CST Anesthesia ROS/MED History Reviewed: Patient summary Pre-Anesthetic State: Pulmonary (+) COPD, sleep apnea, asthma Cardiovascular Neuro/Psych (+) neuromuscular disease Substance Use GI/Hepatic/Renal Endo/Other GENERAL COMMENTS Pt at Drs office on 12/29/2023 with URI symptoms nasal congestion, sore throat and headache. Feverish at home per pt. NeedsTo be symptom free 2 weeks. SINUS RHYTHM LOW QRS VOLTAGE IN PRECORDIAL LEADS [QRS DEFLECTION < 1.0 mV IN CHEST LEADS] No previous ECG available for comparison UALIZATION CONSULTANT NPO Status: Physical Exam STOP-Bang Assessment: Anesthesia Plan . UALIZATION CONSULTANT documented in this encounter Plan of Treatment Upcoming Encounters Date Type Department Care Team (Late st Contact Info) Description 02/12/2024 9:00 AM VIRTUALIZATION CONSULTANT Appointment [facility] Outpatient Rehab [address] [place] [address] [place] [address] [place] [address] [place] [address] [place] [address] 02/12/2024 2:00 PM VIRTUALIZATION CONSULTANT Appointment [facility] [place] [address] [place] [address] [place] [address] [place] [address] 02/16/2024 9:00 AM VIRTUALIZATION CONSULTANT Appointment [facility] Outpatient Rehab [address] [place] [address] [place] [address] [place] [address] [place] [address] [place] [address] 02/19/2024 8:45 AM VIRTUALIZATION CONSULTANT Appointment [facility] Outpatient Rehab [address] [place] [address] [place] [address] [place] [address] [place] [address] [place] [address] 02/19/2024 9:00 AM VIRTUALIZATION CONSULTANT Appointment [facility] Outpatient Rehab [address] [place] [address] [place] [address] [place] [address] [place] [address] [place] [address] 02/23/2024 9:00 AM VIRTUALIZATION CONSULTANT Appointment [facility] Outpatient Rehab [address] [place] [address] [place] [address] [place] [address] [place] [address] [place] [address] 02/24/2024 1:30 PM VIRTUALIZATION CONSULTANT Appointment [facility] MRI [address] [place] [address] [place] [address] [place] [address] 02/26/2024 9:00 AM VIRTUALIZATION CONSULTANT Appointment [facility] Outpatient Rehab [address] [place] [address] [place] [address] [place] [address] [place] [address] [place] [address] 02/26/2024 9:15 AM VIRTUALIZATION CONSULTANT Appointment [facility] Outpatient Rehab [address] [place] [address] [place] [address] [place] [address] [place] [address] [place] [address] 03/01/2024 9:00 AM VIRTUALIZATION CONSULTANT Appointment [facility] Outpatient Rehab [address] [place] [address] [place] [address] [place] [address] [place] [address] [place] [address] Lorene Branch, VINEYARD TENDER 03/02/2024 12:27 PM VIRTUALIZATION CONSULTANT Hospital Encounter [facility] Surgery [address] [place] [address] [place] [address] [place] [address] 03/02/2024 12:27 PM VIRTUALIZATION CONSULTANT - 03/02/2024 1:07 PM VIRTUALIZATION CONSULTANT Surgery [facility] [address] [address] [place] [address] [place] [address] MANIPULATION SHOULDER 03/05/2024 9:00 AM VIRTUALIZATION CONSULTANT Appointment [facility] Outpatient Rehab [address] [address] [place] [address] [place] [address] Lorene Branch, VINEYARD TENDER 03/08/2024 9:00 AM VIRTUALIZATION CONSULTANT Appointment [facility] Outpatient Rehab [address] [address] [place] [address] [place] [address] Lorene Branch, VINEYARD TENDER 03/11/2024 9:15 AM VIRTUALIZATION CONSULTANT Appointment [facility] Outpatient Rehab [address] [address] [place] [address] [place] [address] Lorene Branch, VINEYARD TENDER 03/15/2024 9:00 AM VIRTUALIZATION CONSULTANT Appointment [facility] Outpatient Rehab [address] [address] [place] [address] [place] [address] Lorene Branch, VINEYARD TENDER 03/18/2024 9:15 AM VIRTUALIZATION CONSULTANT Appointment [facility] Outpatient Rehab [address] [address] [place] [address] [place] [address] Lorene Branch, VINEYARD TENDER 03/22/2024 9:00 AM VIRTUALIZATION CONSULTANT Appointment [facility] Outpatient Rehab [address] [address] [place] [address] [place] [address] Lorene Branch, VINEYARD TENDER 03/25/2024 9:15 AM VIRTUALIZATION CONSULTANT Appointment [facility] Outpatient Rehab [address] [address] [place] [address] [place] [address] Lorene Branch, VINEYARD TENDER 04/21/2024 11:20 AM VIRTUALIZATION CONSULTANT Office Visit [facility] Medical Group Family & Internal Medicine [address] [address] [place] [address] [place] [address] Scheduled Procedures Name Priority Associated Diagnoses Date/Ti me MANIPULATION SHOULDER Adhesive capsulitis of left shoulder 03/02/2024 12:27 PM VIRTUALIZATION CONSULTANT INJECTION JOINT Adhesive capsulitis of left shoulder 03/02/2024 12:27 PM VIRTUALIZATION CONSULTANT documented as of this encounter Visit Diagnoses Not on filedocumented in this encounter Additional Health Concerns Assessment Noted Time PHQ-9 Depression Total Score: 24 09/15/ 024 3:24 PM CDT documented as of this encounter Care Teams Media Production Operator Relationship Specialty [place] [address] [facility] [place] [address] PCP - General Physician Recruiting Scheduler Medical 09/16/23 documented as of this encounter
--- OUTSIDE RECORDS SUMMARY | 2024-02-12 03:28 | XMS_ITS | Encounter Summary ---
Author Organization [facility] Address [facility] [place] [place], [place] [address] [place] [address] Care Team Providers Care Psychiatric Np Name Role Phone Holger Soriano Primary Care Provider [phone] Encounter Details Date Type Department Care Team (Latest Contact Info) Description 01/12/2024 Travel Social History Tobacco Use Types Packs/Day [...] st Contact Info) Description 02/12/2024 9:00 AM ACCESS TECH Appointment [facility] Outpatient Rehab [address] [place], [place] [id number] [place] [address] [place], [place] [phone] [place] [address] [place] [address] 02/12/2024 2:00 PM ACCESS TECH Appointment [facility] [place] [address] [place] [address] [place] [address] [place] [address] 02/16/2024 9:00 AM ACCESS TECH Appointment [facility] Outpatient Rehab [address] [place] [address] [place] [address] [place] [address] [place] [address] [place] [address] 02/19/2024 8:45 AM ACCESS TECH Appointment [facility] Outpatient Rehab [address] [place] [address] [place] [address] [place] [address] [place] [address] [place] [address] 02/19/2024 9:00 AM ACCESS TECH Appointment [facility] Outpatient Rehab [address] [place] [address] [place] [address] [place] [address] [place] [address] [place] [address] 02/23/2024 9:00 AM ACCESS TECH Appointment [facility] Outpatient Rehab [address] [place] [address] [place] [address] [place] [address] [place] [address] [place] [address] 02/24/2024 1:30 PM ACCESS TECH Appointment [facility] [place] [address] [place] [address] [place] [address] [place] [address] 02/26/2024 9:00 AM ACCESS TECH Appointment [facility] Outpatient Rehab [address] [place] [address] [place] [address] [place] [address] [place] [address] [place] [address] 02/26/2024 9:15 AM ACCESS TECH Appointment [facility] Outpatient Rehab [address] [place] [address] [place] [address] [place] [address] [place] [address] [place] [address] 03/01/2024 9:00 AM ACCESS TECH Appointment [facility] Outpatient Rehab [address] [place] [address] [place] [address] [place] [address] [place] [address] [place] [address] Lorene Branch, GREEN CHAIN WORKER 03/02/2024 12:27 PM ACCESS TECH Hospital Encounter [facility] Surgery [address] [place] [address] [place] [address] [place] [address] 03/02/2024 12:27 PM ACCESS TECH - 03/02/2024 1:07 PM ACCESS TECH Surgery [facility] Surgery [address] [place] [address] [place] [address] [place] [address] MANIPULATION SHOULDER 03/05/2024 9:00 AM ACCESS TECH Appointment [facility] Outpatient Rehab [address] [place] [address] [place] [address] [place] [address] Lorene Branch, GREEN CHAIN WORKER 03/08/2024 9:00 AM ACCESS TECH Appointment [facility] Outpatient Rehab [address] [place] [address] [place] [address] [place] [address] Lorene Branch, GREEN CHAIN WORKER 03/11/2024 9:15 AM ACCESS TECH Appointment [facility] Outpatient Rehab [address] [place] [address] [place] [address] [place] [address] Lorene Branch, GREEN CHAIN WORKER 03/15/2024 9:00 AM ACCESS TECH Appointment [facility] Outpatient Rehab [address] [place] [address] [place] [address] [place] [address] Lorene Branch, GREEN CHAIN WORKER 03/18/2024 9:15 AM ACCESS TECH Appointment [facility] Outpatient Rehab [address] [place] [address] [place] [address] [place] [address] Lorene Branch, GREEN CHAIN WORKER 03/22/2024 9:00 AM ACCESS TECH Appointment [facility] Outpatient Rehab [address] [place] [address] [place] [address] [place] [address] Lorene Branch, GREEN CHAIN WORKER 03/25/2024 9:15 AM ACCESS TECH Appointment [facility] Outpatient Rehab [address] [place] [address] [place] [address] [place] [address] Lorene Branch, GREEN CHAIN WORKER 04/21/2024 11:20 AM ACCESS TECH Office Visit [facility] Family & Internal Medicine - [address] [address] [place] [address] [place] [address] Scheduled Procedures Name Priority Associated Diagnoses Date/Ti me MANIPULATION SHOULDER Adhesive capsulitis of left shoulder 03/02/2024 12:27 PM ACCESS TECH INJECTION JOINT Adhesive capsulitis of left shoulder 03/02/2024 12:27 PM ACCESS TECH documented as of this encounter Visit Diagnoses Not on filedocumented in this encounter Additional Health Concerns Assessment Noted Time PHQ-9 Depression Total Score: 024 3:24 PM CDT documented as of this encounter Care Teams Psychiatric Np Relationship Specialty [place] [address] [place] [address] PCP - General Physician [employer] [facility] 09/16/23 documented as of this encounter
--- OUTSIDE RECORDS SUMMARY | 2024-02-12 03:28 | XMS_ITS | Encounter Summary ---
Author Organization [facility] Address [facility] [place] [address] [place] [address] Care Team Providers Care Pens And Pencils Repairer Name Role Phone Holger Soriano Primary Care Provider [phone] Encounter Details Date Type Department Care Team (Latest Contact Info) Description 12/29/2023 1:33 PM BRIM IRONER HAND - 12/29/2023 11:59 PM [facility] Hospital Encounter [facility] Cardiopulmonary Services [address] [place], [place] [id number] [place] [address] [place] [address] Discharge Disposition: Home or Self Care (Routine [...] by mouth daily. 180 capsule 1 09/16/2023 QUEtiapine (SEROQUEL) 100 MG tabletIndications :Bipolar I [...] 30 days. 60 capsule 1 12/22/2023 4 meloxicam (MOBIC) 15 MG tabletIndications :Acute bilateral low back pain with bilateral sciatica TAKE 1 TABLET (15 MG TOTAL) BY MOUTH DAILY. 30 tablet 12/04/2023 4 progesterone (PROMETRIUM) 100 MG capsuleIndication s:Menopausal and female climacteric states take 1 capsule by mouth every day 90 capsule 1 06/10/2023 4 documented as of this encounter Plan of Treatment Upcoming Encounters Date Type Department Care Team (Late st Contact Info) Description 02/12/2024 9:00 AM BRIM IRONER HAND Appointment [facility] Outpatient Rehab [address] [place] [address] [place] [address] [place] [address] [place] [address] [place] [address] 02/12/2024 2:00 PM BRIM IRONER HAND Appointment [facility] [place] [address] [place] [address] [place] [address] [place] [address] 02/16/2024 9:00 AM BRIM IRONER HAND Appointment [facility] Outpatient Rehab [address] [place] [address] [place] [address] [place] [address] [place] [address] [place] [address] 02/19/2024 8:45 AM BRIM IRONER HAND Appointment [facility] Outpatient Rehab [address] [place] [address] [place] [address] [place] [address] [place] [address] [place] [address] 02/19/2024 9:00 AM BRIM IRONER HAND Appointment [facility] Outpatient Rehab [address] [place] [address] [place] [address] [place] [address] [place] [address] [place] [address] 02/23/2024 9:00 AM BRIM IRONER HAND Appointment [facility] [address] [place] [address] [place] [address] [place] [address] [place] [address] [place] [address] 02/24/2024 1:30 PM BRIM IRONER HAND Appointment [facility] [address] [place] [address] Ihsan LoganDO [address] [place] [address] 02/26/2024 9:00 AM BRIM IRONER HAND Appointment [facility] Outpatient Rehab [address] [place] [address] [place] [address] [place] [address] [place] [address] [place] [address] 02/26/2024 9:15 AM BRIM IRONER HAND Appointment [facility] Outpatient Rehab [address] [place] [address] [place] [address] [place] [address] [place] [address] [place] [address] 03/01/2024 9:00 AM BRIM IRONER HAND Appointment [facility] Outpatient Rehab [address] [place] [address] [place] [address] [place] [address] [place] [address] [place] [address] Lorene Branch, MUCK BOSS 03/02/2024 12:27 PM [facility]IM IRONER HAND Hospital Encounter [facility] [address] [place] [address] [place] [address] [place] [address] 03/02/2024 12:27 PM BRIM IRONER HAND - 03/02/2024 1:07 PM BRIM IRONER HAND Surgery [facility] [address] [place] [address] [place] [address] [place] [address] MANIPULATION SHOULDER 03/05/2024 9:00 AM BRIM IRONER HAND Appointment [facility] Outpatient Rehab [address] [place] [address] [place] [address] [place] [address] Lorene Branch, MUCK BOSS 03/08/2024 9:00 AM BRIM IRONER HAND Appointment [facility] Outpatient Rehab [address] [place] [address] [place] [address] [place] [address] Lorene Branch, MUCK BOSS 03/11/2024 9:15 AM BRIM IRONER HAND Appointment [facility] Outpatient Rehab [address] [place] [address] [place] [address] [place] [address] Lorene Branch, MUCK BOSS 03/15/2024 9:00 AM BRIM IRONER HAND Appointment [facility] Outpatient Rehab [address] [place] [address] [place] [address] [place] [address] Lorene Branch, MUCK BOSS 03/18/2024 9:15 AM BRIM IRONER HAND Appointment [facility] Outpatient Rehab [address] [place] [address] [place] [address] [place] [address] Lorene Branch, MUCK BOSS 03/22/2024 9:00 AM BRIM IRONER HAND Appointment [facility] Outpatient Rehab [address] [place] [address] [place] [address] [place] [address] Lorene Branch, MUCK BOSS 03/25/2024 9:15 AM BRIM IRONER HAND Appointment [facility] Outpatient Rehab [address] [place] [address] [place] [address] [place] [address] Lorene Branch, MUCK BOSS 04/21/2024 11:20 AM BRIM IRONER HAND Office Visit [facility] Family & Internal Medicine [address] [phone] [place] [address] [place] [address] Scheduled Procedures Name Priority Associated Diagnoses Date/Ti me MANIPULATION SHOULDER Adhesive capsulitis of left shoulder 03/02/2024 12:27 PM BRIM IRONER HAND INJECTION JOINT Adhesive capsulitis of left shoulder 03/02/2024 12:27 PM BRIM IRONER HAND documented as of this encounter Procedures Procedure Name Priority Date/Time Associated Diagnosis Comments ECG 12-LEAD Routine 12/29/2023 1:41 PM BRIM IRONER HAND Adhesive capsulitis of left shoulder ART positive Type 2 diabetes mellitus without complication, without long-term current use of insulin ([facility]/HCC [facility]CC) documented in this encounter Results * ECG 12 lead (12/29/2023 1:41 PM BRIM IRONER HAND) 12/29/2023 1:41 PM BRIM IRONER HAND Narrative [facility] RAD - 12/30/2023 8:20 AM BRIM IRONER HAND ?[facility] ? Test Date: ?2023-12-29 Pat Name: ? OUMOU DOUBET ? Department: ?? 85 ? Room: ? Gender: ? Female ? Smocking Machine Operator: ?? : ?1975 ? Requested By: IHSAN LOGAN Order Number: [id number] ? Reading : ?? Blue Paul ? Measurements Intervals ?[place] ? Rate: ? 80 ? P: ?49 NH: ? 200 ?QRS: ?25 QRSD: ? 83 ? T: ?80 QT: ? 373 ? QTc: ?432 ? Interpretive Statements SINUS RHYTHM LOW QRS VOLTAGE IN PRECORDIAL LEADS ??[QRS DEFLECTION < 1.0 mV IN CHEST LEADS] No previous ECG available for comparison IRONER HAND Procedure Note Blue Paul MD - 12/30/2023 [facility] Date: 2023-12-29 Pat Name: OUMOU MIDDLETON Department: 85 Room: Gender: Female Smocking Machine Operator: : 1975 Requested By: IHSAN LOGAN Order Number: [id number] Loreta MD: Blue Paul Measurements Intervals [place] Rate: 80 P: 49 NH: 200 QRS: 25 QRSD: 83 T: 80 QT: 373 QTc: 432 Interpretive Statements SINUS RHYTHM LOW QRS VOLTAGE IN PRECORDIAL LEADS [QRS DEFLECTION < 1.0 mV IN CHESTLEADS] No previous ECG available for comparison IRONER HAND us Ihsan Logan DO ECG ORDERABLES Final Result [facility]) [facility] documented in this encounter Visit Diagnoses Diagnosis Adhesive capsulitis of left shoulder Adhesive capsulitis of shoulder ART positive Other and unspecified nonspecific immunological findings Type 2 diabetes mellitus without complication, without long-term current use of insulin ([facility]) Adhesive capsulitis of left shoulder Adhesive capsulitis of shoulder documented in this encounter Additional Health Concerns Assessment Noted Time PHQ-9 Depression Total Score: 24 024 3:24 PM CDT documented as of this encounter Care Teams Pens And Pencils Repairer Relationship Specialty [place] [address] [place] [address] PCP - General Physician [employer] [facility] 09/16/23 documented as of this encounter
--- OUTSIDE RECORDS SUMMARY | 2024-02-12 03:28 | XMS_ITS | Encounter Summary ---
Author Organization [facility] Address [facility] [place], [place] [address] [place] [address] Care Team Providers Care Fur Tinter Name Role Phone Holger Soriano Primary Care Provider [phone] Reason for Visit * Reason Comments Shoulder Pain Back Pain * Physical Medicine (Urgent) - Authorized Specialty Diagnoses / Procedures Referred By Shmuel t Referred To Contact PHYSICAL THERAPY Diagnoses Left shoulder pain Low back pain Procedures OFFICE/OUTPATIENT NEW LOW MDM 30-44 MINUTES OFFICE/OUTPT VISIT,NEW,LEVL IV OFFICE/OUTPT VISIT,NEW,LEVL V OFFICE/OUTPT VISIT,EST,LEVL III OFFICE/OUTPT VISIT,EST,LEVL IV OFFICE/OUTPT VISIT,EST[place] [address] [place] [address] Phone: tel: fax: [facility] Outpatient Rehab [address] [place] [address] Phone: tel: fax: Referral ID Status Reason Start Date Expiration Date Visits Requested Visits Authorized [id number] Authorized Physical Therapy 10/13/2023 11/11/2024 99 99 Encounter Details Date Type Department Care Team (Latest Contact Info) Description 01/20/2024 8:58 AM BEACH LIFEGUARD - 01/20/2024 11:59 PM BEACH LIFEGUARD Hospital Encounter [facility] Outpatient Rehab [address] [place], [place] [address] [place] [address] [place] [address] Lorene Branch PTA Shoulder Pain; Back Pain Discharge Disposition: [...] vaginally nightly at bedtime. 1 g 12/29/2023 amoxicillin (AMOXIL) 875 MG tabletIndications :Acute non-recurrent frontal sinusitis Take 1 tablet (875 mg total) by mouth 2 (two) times daily for 10 days. 20 tablet 01/20/2024 4 cyclobenzaprine (FLEXERIL) 10 MG tabletIndications :Other muscle spasm Take 1 tablet (10 mg total) by mouth as needed. FOR MUSCLE SPASMS 90 tablet 12/22/2023 4 documented as of this encounter Progress Notes * Lorene Branch, HEEL CEMENTER - 01/20/2024 9:00 AM CST Physical Therapy Visit Note: Patient Name: Oumou Middleton Diagnosis: Left shoulder pain (primary encounter diagnosis) SUBJECTIVE Therapy Visit Start Time: 906 Stop Time: 1001 Time Calculation (min): 55 min Treatment Day: 17 for SH / 6 for LB Total Approved Visits: 20 for [...] exacerbated early Oct. 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[employer] Job Duties: Has help at work to lift things currently Subjective Note: Patient reports that her SH is tense today. States that she hasn't had to take any pain pillssince starting the dry needling, but still can't lift her arm up. Reports that she continues to have L hip pain, but was able to lift her leg better after last appt with use of roller. Pain Current Location of Pain: L SH , L hip Current Pain Level: 7/10, 8-9/10 OBJECTIVE Treatment provided today: Therapeutic Exercise - 82451 Number of Minutes - 35634: 40 Exercise: Pulleys scaption, butterfly x 2-3 min each (longer holds) with MHP Exercise: Wall slides flexion and scap (towel), with light assist from RUE x 10 each with MHP on Exercise: Table slides (longer holds) flexion, scaption, ER x [address] (chair laterally at table) - slow, long holds Exercise: next - Supine cane flex x 10 Exercise: gentle PROM L shoulder all planes (supine, with MHP held down by sheet) LLLD Exercise: next- chin tucks supine (gentle) Exercise: prone over 1 pillow - L piriformis release & rolling stick over L glute x 8 min, hip IR PROM gentle x 10 long holds Exercise: HELD- hip IR/ER PROM in supine x 10 each (slow,gentle, longer holds into IR) Exercise: HELD- supine with MHP to low back, LEs on orange SB: LTR, distraction, DKTC x 15 Exercise: HELD- supine with MHP to low back: hamstring stretching 20 x 3 each, held- gentle sciatic nerve glides x 5 each LE Exercise: HELD- slant board L3 x 2 min Manual Therapy - 34087 Number of Minutes - 44680: 15 Instrument Assisted STM: IASTM (no cups) to L upper arm (supine, pillow under LUE) attempting to disperse swelling in mid humerus area Modalities Non-Timed Hot Pack - 61172: MHP to L shoulder and low back in supine today during tx Education Was Education Provided: Yes Topic: ther ex, avoiding SH shrug bilaterally, cervical stretches Recipient: Patient Method: Demonstration, Verbal, Return Demonstration Response: Verbalized understanding, Asked questions ASSESSMENT Assessment Note: Utilized heat to LB and L SH as able throughout treatment. Pt presents with pain and sorenessin both L hip and L SH. Tightness noted with piriformis release with limited hip rotation . Gentle L SH ROM in supine as well as MTT to L upper arm for swelling and pain. Pt continues to hold L arm very stiff and guarded and encouraged pt to try to let it relax with walking and daily activiites. Response to Treatment : L hip feeling better Continue on Functional Deficit of: L shoulder pain with dressing, bathing, work, sleep PLAN Plan Next Visit Plan: Continue PT per POC Total Time Total Time in Minutes: 55 Timed Code Treatment Minutes : 55 H LIFEGUARD documented in this encounter Plan of Treatment Upcoming Encounters Date Type Department Care Team (Late st Contact Info) Description 02/12/2024 9:00 AM BEACH LIFEGUARD Appointment [facility] Outpatient Rehab [address] [place] [address] [place] [address] [place] [address] [place] [address] [place] [address] 02/12/2024 2:00 PM BEACH LIFEGUARD Appointment [facility] MRI [address] [place] [address] [place] [address] [place] [address] 02/16/2024 9:00 AM BEACH LIFEGUARD Appointment [facility] Outpatient Rehab [address] [place] [address] [place] [address] [place] [address] [place] [address] [place] [address] 02/19/2024 8:45 AM BEACH LIFEGUARD Appointment [facility] Outpatient Rehab [address] [place] [address] [place] [address] [place] [address] [place] [address] [place] [address] 02/19/2024 9:00 AM BEACH LIFEGUARD Appointment [facility] [address] [place] [address] [place] [address] [place] [address] [place] [address] [place] [address] 02/23/2024 9:00 AM BEACH LIFEGUARD Appointment [facility] [address] [place] [address] [place] [address] [place] [address] [place] [address] [place] [address] 02/24/2024 1:30 PM BEACH LIFEGUARD Appointment [facility] [address] [place] [address] [place] [address] [place] [address] 02/26/2024 9:00 AM BEACH LIFEGUARD Appointment [facility] Outpatient Rehab [address] [place] [address] [place] [address] [place] [address] [place] [address] [place] [address] 02/26/2024 9:15 AM BEACH LIFEGUARD Appointment [facility] Outpatient Rehab [address] [place] [address] [place] [address] [place] [address] [place] [address] [place] [address] 03/01/2024 9:00 AM BEACH LIFEGUARD Appointment [facility] Outpatient Rehab [address] [place] [address] [place] [address] [place] [address] [place] [address] [place] [address] Lorene Branch, HEEL CEMENTER 03/02/2024 12:27 PM BEACH LIFEGUARD Hospital Encounter [facility] [address] [place] [address] [place] [address] [place] [address] 03/02/2024 12:27 PM BEACH LIFEGUARD - 03/02/2024 1:07 PM BEACH LIFEGUARD Surgery [facility] [address] [place] [address] [place] [address] [place] [address] MANIPULATION SHOULDER 03/05/2024 9:00 AM BEACH LIFEGUARD Appointment [facility] Outpatient Rehab [address] [place] [address] [place] [address] [place] [address] Lorene Branch, HEEL CEMENTER 03/08/2024 9:00 AM BEACH LIFEGUARD Appointment [facility] Outpatient Rehab [address] [place] [address] [place] [address] [place] [address] Lorene Branch, HEEL CEMENTER 03/11/2024 9:15 AM BEACH LIFEGUARD Appointment [facility] Outpatient Rehab [address] [place] [address] [place] [address] [place] [address] Lorene Branch, HEEL CEMENTER 03/15/2024 9:00 AM BEACH LIFEGUARD Appointment [facility] Outpatient Rehab [address] [place] [address] [place] [address] [place] [address] Lorene Branch, HEEL CEMENTER 03/18/2024 9:15 AM BEACH LIFEGUARD Appointment [facility]patient [facility]hab [address] [place] [address] [place] [address] [place] [address] Lorene Branch, HEEL CEMENTER 03/22/2024 9:00 AM BEACH LIFEGUARD Appointment [facility] Outpatient [facility]hab [address] [place] [address] [place] [address] [place] [address] Lorene Branch, HEEL CEMENTER 03/25/2024 9:15 AM BEACH LIFEGUARD Appointment [facility] [address] [place] [address] [place] [address] [place] [address] Lorene Branch, HEEL CEMENTER 04/21/2024 11:20 AM BEACH LIFEGUARD Office Visit [facility] Medical Group Family & Internal Medicine [address] [phone] [place] [address] [place] [address] Scheduled Procedures Name Priority Associated Diagnoses Date/Ti me MANIPULATION SHOULDER Adhesive capsulitis of left shoulder 03/02/2024 12:27 PM BEACH LIFEGUARD INJECTION JOINT Adhesive capsulitis of left shoulder 03/02/2024 12:27 PM BEACH LIFEGUARD documented as of this encounter Visit Diagnoses Diagnosis Frozen shoulder- Primary Adhesive capsulitis of shoulder Left shoulder pain- Primary Pain in joint, shoulder region Adhesive capsulitis of left shoulder Adhesive capsulitis of shoulder documented in this encounter Additional Health Concerns Assessment Noted Time PHQ-9 Depression Total Score: 024 3:24 PM CDT documented as of this encounter Care Teams Fur Tinter Relationship Specialty [place] [address] [place] [address] PCP - General Physician Director Style Medical 09/16/23 documented as of this encounter
--- OUTSIDE RECORDS SUMMARY | 2024-02-12 03:28 | XMS_ITS | Encounter Summary ---
Author Organization [facility] Address [facility]. [place], [place] [id number] [place] [address] Care Team Providers Care Title Camera Operator Name Role Phone Holger Soriano Primary Care Provider [phone] Reason for Visit * Reason Comments Back Pain Shoulder Pain * Physical Medicine (Urgent) - Authorized Specialty Diagnoses / Procedures Referred By Contac t Referred To Contact PHYSICAL THERAPY Diagnoses Left shoulder pain Low back pain Procedures OFFICE/OUTPATIENT NEW LOW MDM 30-44 MINUTES OFFICE/OUTPT VISIT,NEW,LEVL IV OFFICE/OUTPT VISIT,NEW,LEVL V OFFICE/OUTPT VISIT,EST,LEVL III OFFICE/OUTPT VISIT,EST,LEVL IV OFFICE/OUTPT VISIT,EST[place] [address] [place] [address] Phone: tel: fax: [facility] [address] [place] [address] Phone: tel: fax: Referral ID Status Reason Start Date Expiration Date Visits Requested Visits Authorized [id number] Authorized Physical Therapy 10/13/2023 11/11/2024 99 99 Encounter Details Date Type Department Care Team (Latest Contact Info) Description 01/12/2024 1:00 PM ENGLISH TEACHER - 01/12/2024 11:59 PM ENGLISH TEACHER Hospital Encounter [facility] [address] [place] [address] [place] [address] [place], [place] [id number] [place] [address] [place], [place] [id number] Back Pain; Shoulder Pain Discharge Disposition: Home [...] as of this encounter Progress Notes * Sampson Mukherjee, PT - 01/12/2024 1:00 PM CSTEncounter addended by: Sampson Mukherjee PT on: 01/12/2024 3:20 PM Actions taken: Clinical Note Signed ISH TEACHER * Sampson Mukhejree, PT - 01/12/2024 1:00 PM CST Physical Therapy Visit Note: Patient Name: Oumou Middleton Diagnosis: Left shoulder pain (primary encounter diagnosis) SUBJECTIVE Therapy Visit Start Time: 1302 Stop Time: 1400 Time Calculation (min): 58 min Treatment Day: 16 for SH/5 for LB Total Approved Visits: 20 for [...] exacerbated early Oct. 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 Still having a hard time moving her arm. Says she needs help with her left hip, was crying this morning due to pain trying to put on her shoes. Has to sit on the edge of tub to pull her leg in. OBJECTIVE Treatment provided today: Therapeutic Exercise - 42916 Number of Minutes - 29855: 43 Exercise: Pulleys scaption, butterfly x 2-3 min each (longer holds) with MHP Exercise: Table slides (longer holds) flexion, scaption, ER x [address] each way (chair laterally at table) - slow, long holds Exercise: prone over 1 pillow - L piriformis release & rolling stick over L glute x 8 min, hip IR PROM gentle x 10 long holds Manual Therapy - 46311 Number of Minutes - 48252: 15 TDN not included in time / charge Myofacial release prone to upper trap, levator x 15 TDN Procedure: Informed consent obtained after thorough explanation of risks and benefits of TDN. Signed consent form may be found scanned in medical record. Pre-procedure time out performed which included verification of name, , and site of treatment. 70% isopropyl alcohol wipe down performed to treatment site with single use sterile prep pads. I was present at bedside throughout the procedure for patient safety. 3 -.30 x 30 Serin J type needle used to infraspinatus, supraspinatus, TM 4 -.30 x 40 Serin J type needle used to upper trapezius L Modalities Non-Timed Hot Pack - 62540: MHP to L shoulder and low back in supine today during tx Education Was Education Provided: Yes Topic: ther ex, avoiding SH shrug bilaterally Recipient: Patient Method: Demonstration, Verbal, Return Demonstration Response: Verbalized understanding, Asked questions ASSESSMENT Assessment Note: Oumou responded well to gentle AAROM activities for L shoulder today using pulleys and table slides. Performed release and use of rolling stick to L glute due to pain and limited ROM noted this AM. Hip IR ROM slightly improves after several reps with long duration holds. Improved active ROMwith decreased pain noted to L hip at end of session. However she notes pain in R shoulder and limited ROM from laying prone with RUE under her head. Response to Treatment : L hip feels better Continue on Functional Deficit of: L shoulder pain with dressing, bathing, work, sleep PLAN Plan Next Visit Plan: Continue PT per POC Total Time Total Time in Minutes: 58 Timed Code Treatment Minutes : 58 ISH TEACHER ISH TEACHER documented in this encounter Plan of Treatment Upcoming Encounters Date Type Department Care Team (Late st Contact Info) Description 02/12/2024 9:00 AM ENGLISH TEACHER Appointment [facility] [address] [place], [place] [id number] [place] [address] [place], [place] [id number] [place] [address] [place] [address] 02/12/2024 2:00 PM ENGLISH TEACHER Appointment [address] [address] [place] [address] [place] [address] 02/16/2024 9:00 AM ENGLISH TEACHER Appointment [facility] [address] [place] [address] [place] [address] [place] [address] [place] [address] [place] [address] 02/19/2024 8:45 AM ENGLISH TEACHER Appointment [facility] [address] [place] [address] [place] [address] [place] [address] [place] [address] [place] [address] 02/19/2024 9:00 AM ENGLISH TEACHER Appointment [facility] [address] [place] [address] [place] [address] [place] [address] [place] [address] [place] [address] 02/23/2024 9:00 AM ENGLISH TEACHER Appointment [facility] [address] [place] [address] [place] [address] [place] [address] [place] [address] [place] [address] 02/24/2024 1:30 PM ENGLISH TEACHER Appointment [address] [address] Ihsan Logan [address] [place] [address] 02/26/2024 9:00 AM ENGLISH TEACHER Appointment [facility] [address] [place] [address] [place] [address] [place] [address] [place] [address] [place] [address] 02/26/2024 9:15 AM ENGLISH TEACHER Appointment [facility] [address] [place] [address] [place] [address] [place] [address] [place] [address] [place] [address] 03/01/2024 9:00 AM ENGLISH TEACHER Appointment [facility] [address] [place] [address] [place] [address] [place] [address] [place] [address] [place] [address] Lorene Branch, RUG RECEIVING CLERK 03/02/2024 12:27 PM ENGLISH TEACHER Hospital Encounter [facility] [address] [place] [address] [place] [address] [place] [address] 03/02/2024 12:27 PM ENGLISH TEACHER - 03/02/2024 1:07 PM ENGLISH TEACHER Surgery [facility] Surgery [address] [place] [address] [place] [address] [place] [address] MANIPULATION SHOULDER 03/05/2024 9:00 AM ENGLISH TEACHER Appointment [facility] [address] [place] [address] [place] [address] [place] [address] Lorene Branch, RUG RECEIVING CLERK 03/08/2024 9:00 AM ENGLISH TEACHER Appointment [facility] [address] [place] [address] [place] [address] [place] [address] Lorene Branch, RUG RECEIVING CLERK 03/11/2024 9:15 AM ENGLISH TEACHER Appointment [facility] [address] [place] [address] [place] [address] [place] [address] Lorene Branch, RUG RECEIVING CLERK 03/15/2024 9:00 AM ENGLISH TEACHER Appointment [facility] [address] [place] [address] [place] [address] [place] [address] Lorene Brnach, RUG RECEIVING CLERK 03/18/2024 9:15 AM ENGLISH TEACHER Appointment [facility] [address] [place] [address] [place] [address] [place] [address] Lorene Branch, RUG RECEIVING CLERK 03/22/2024 9:00 AM ENGLISH TEACHER Appointment [facility] [address] [place] [address] [place] [address] [place] [address] Lorene Branch, RUG RECEIVING CLERK 03/25/2024 9:15 AM ENGLISH TEACHER Appointment [facility] [address] [place] [address] [place] [address] [place] [address] Lorene Branch, RUG RECEIVING CLERK 04/21/2024 11:20 AM ENGLISH TEACHER Office Visit [facility] Family & Internal Medicine [facility] [address] [place] [address] [place] [address] [place] [address] Scheduled Procedures Name Priority Associated Diagnoses Date/Ti me MANIPULATION SHOULDER Adhesive capsulitis of left shoulder 03/02/2024 12:27 PM ENGLISH TEACHER INJECTION JOINT Adhesive capsulitis of left shoulder 03/02/2024 12:27 PM ENGLISH TEACHER documented as of this encounter Visit Diagnoses Diagnosis Frozen shoulder- Primary Adhesive capsulitis of shoulder Left shoulder pain- Primary Pain in joint, shoulder region Adhesive capsulitis of left shoulder Adhesive capsulitis of shoulder documented in this encounter Additional Health Concerns Assessment Noted Time PHQ-9 Depression Total Score: 024 3:24 PM CDT documented as of this encounter Care Teams Title Camera Operator Relationship Specialty [place] [address] [place] [address] PCP - General Physician Poultry Veterinarian Medical 09/16/23 documented as of this encounter
--- OUTSIDE RECORDS SUMMARY | 2024-02-12 03:28 | XMS_ITS | Encounter Summary ---
Author Organization [facility] Address Critical access hospital6 [facility] [place] [address] [place] [address] Care Team Providers Care Flight Steward Name Role Phone Holger Soriano Primary Care Provider [phone] Reason for Visit * Reason Onset Date Comments Pre-op Question(s) 02/05/2024 Encounter Details Date Type Department Care Team (Late st Contact Info) Description 02/05/2024 Telephone [facility] Medical [facility] Orthopedic Surgery [facility] [address] [address] [facility] [address] [place] [address] [place] [address] [place], [place] [phone] Pre-op Question(s) Social History Tobacco Use Types Packs/Day Years [...] Progress Notes * Anali Cormier RN - 02/05/2024 2:26 PM CST Patients insurance will change as of 02/25/2024 [facility] and [place] secondary. Will now have [facility] PPO plan and Medicare A&B. Unsure as to if [facility] will be primary or not due to her disability. Medicare ID#: [id number] [facility] ID#: [id number] Patient also said that she has been unable to schedule her lumbar spine MRI. Number for Central Scheduling given to the patient. SENIOR SOFTWARE ENGINEER JAVA * Veronica Melton - 02/05/2024 12:47 PM CST Patient called in to let us know that her new insurance is now in effect and wanted to know if their is anything she needs to do to be able to have surgery 03/02/24, also has questions regarding the MRI that Dr Logan ordered SENIOR SOFTWARE ENGINEER JAVA documented in this encounter Plan of Treatment Upcoming Encounters Date Type Department Care Team (Late st Contact Info) Description 02/12/2024 9:00 AM IT SENIOR SOFTWARE ENGINEER JAVA Appointment [facility] [address] [place] [address] [place] [address] [place] [address] [place] [address] [place] [address] 02/12/2024 2:00 PM IT SENIOR SOFTWARE ENGINEER JAVA [facility]ment [facility] [address] [place] [address] [place] [address] [place] [address] 02/16/2024 9:00 AM IT SENIOR SOFTWARE ENGINEER JAVA App[facility]ment [facility] [address] [place] [address] [place] [address] [place] [address] [place] [address] [place] [address] 02/19/2024 8:45 AM IT SENIOR SOFTWARE ENGINEER JAVA Appointment [facility] [address] [place] [address] [place] [address] [place] [address] [place] [address] [place] [address] 02/19/2024 9:00 AM IT SENIOR SOFTWARE ENGINEER JAVA Appointment [facility] [address] [place] [address] [place] [address] [place] [address] [place] [address] [place] [address] 02/23/2024 9:00 AM IT SENIOR SOFTWARE ENGINEER JAVA Appointment [facility] [address] [place] [address] [place] [address] [place] [address] [place] [address] [place] [address] 02/24/2024 1:30 PM IT SENIOR SOFTWARE ENGINEER JAVA Appointment [facility] MRI [address] [place] [address] [place] [address] [place] [address] 02/26/2024 9:00 AM IT SENIOR SOFTWARE ENGINEER JAVA Appointment [facility] [address] [place] [address] [place] [address] [place] [address] [place] [address] [place] [address] 02/26/2024 9:15 AM IT SENIOR SOFTWARE ENGINEER JAVA Appointment [facility] [address] [place] [address] [place] [address] [place] [address] [place] [address] [place] [address] 03/01/2024 9:00 AM IT SENIOR SOFTWARE ENGINEER JAVA Appointment [facility] [address] [place] [address] [place] [address] [place] [address] [place] [address] [place] [address] Lorene Branch, CHIEF HYDROELECTRIC STATION OPERATOR 03/02/2024 12:27 PM IT SENIOR SOFTWARE ENGINEER JAVA Hospital Encounter [facility] Surgery [address] [place] [address] [place] [address] [place] [address] 03/02/2024 12:27 PM IT SENIOR SOFTWARE ENGINEER JAVA - 03/02/2024 1:07 PM IT SENIOR SOFTWARE ENGINEER JAVA Surgery [facility] Surgery [address] [place] [address] [place] [address] [place] [address] MANIPULATION SHOULDER 03/05/2024 9:00 AM IT SENIOR SOFTWARE ENGINEER JAVA Appointment [facility] [address] [place] [address] [place] [address] [place] [address] Lorene Branch, CHIEF HYDROELECTRIC STATION OPERATOR 03/08/2024 9:00 AM IT SENIOR SOFTWARE ENGINEER JAVA Appointment [facility] [address] [place] [address] [place] [address] [place] [address] Lorene Branch, CHIEF HYDROELECTRIC STATION OPERATOR 03/11/2024 9:15 AM IT SENIOR SOFTWARE ENGINEER JAVA Appointment [facility] [address] [place] [address] [place] [address] [place] [address] Lorene Branch, CHIEF HYDROELECTRIC STATION OPERATOR 03/15/2024 9:00 AM IT SENIOR SOFTWARE ENGINEER JAVA Appointment [facility] [address] [place] [address] [place] [address] [place] [address] Lorene Branch, CHIEF HYDROELECTRIC STATION OPERATOR 03/18/2024 9:15 AM IT SENIOR SOFTWARE ENGINEER JAVA Appointment [facility] [address] [place] [address] [place] [address] [place] [address] Lorene Branch, CHIEF HYDROELECTRIC STATION OPERATOR 03/22/2024 9:00 AM IT SENIOR SOFTWARE ENGINEER JAVA Appointment [facility] [address] [place] [address] [place] [address] [place] [address] Lorene Branch, CHIEF HYDROELECTRIC STATION OPERATOR 03/25/2024 9:15 AM IT SENIOR SOFTWARE ENGINEER JAVA Appointment [facility] [address] [place] [address] [place] [address] [place] [address] Lorene Branch, CHIEF HYDROELECTRIC STATION OPERATOR 04/21/2024 11:20 AM IT SENIOR SOFTWARE ENGINEER JAVA Office Visit [facility] Medical [facility] Family & Internal Medicine [facility] [address] [place] [address] [place] [address] [place] [address] Scheduled Procedures Name Priority Associated Diagnoses Date/Ti me MANIPULATION SHOULDER Adhesive capsulitis of left shoulder 03/02/2024 12:27 PM IT SENIOR SOFTWARE ENGINEER JAVA INJECTION JOINT Adhesive capsulitis of left shoulder 03/02/2024 12:27 PM IT SENIOR SOFTWARE ENGINEER JAVA documented as of this encounter Visit Diagnoses Not on filedocumented in this encounter Additional Health Concerns Assessment Noted Time PHQ-9 Depression Total Score: 24 024 3:24 PM CDT documented as of this encounter Care Teams Flight Steward Relationship Specialty [place] [address] [place] [address] PCP - General Physician Temporary Staff Accountant Medical 09/16/23 documented as of this encounter
--- OUTSIDE RECORDS SUMMARY | 2024-02-12 03:28 | XMS_ITS | Encounter Summary ---
Author Organization [facility] Address [facility] [place] [address] [place] [address] Care Team Providers Care Outreach Counselor Name Role Phone Holger Soriano Primary Care Provider [phone] Reason for Referral * Imaging (Urgent) - Authorized Specialty Diagnoses / Procedures Referred By Contac t Referred To Contact RADIOLOGY Diagnoses Post concussion syndrome Procedures [place] [address] [place] [address] Phone: tel: fax: Referral ID Status Reason Start Date Expiration Date V isits Requested Visits Authorized [id number] Authorized 02/09/2024 03/10/2025 1 1 PAPER PHOTO EDITOR Reason for Visit * Reason Comments ER F/U Pt was seen at [facility] ER 02/07/2024 for extreme muscle spasms. Pt stated she couldn't talk, breath and felt like her body wasn't her body Encounter Details Date Type Department Care Team (Late st Contact Info) Description 02/09/2024 8:20 AM NEWSPAPER PHOTO EDITOR Office Visit [facility] Family & Internal Medicine [facility] [address] [place] [address] [place] [address] [place] [address] ER F/U (Pt was seen at [place] [facility] 02/07/2024 for extreme muscle spasms. Pt stated she couldn't talk, breath and felt like her body wasn't her body) Social History Tobacco Use Types Packs/Day Years [...] Comments Blood Pressure 155/89 02/09/2024 8:59 AM NEWSPAPER PHOTO EDITOR Pulse 78 02/09/2024 8:59 AM NEWSPAPER PHOTO EDITOR Temperature 36.7 ??C (98.1 ??F) 02/09/2024 8:59 AM CS T Respiratory Rate 22 02/09/2024 8:59 AM NEWSPAPER PHOTO EDITOR Oxygen Saturation 98% 02/09/2024 8:59 AM NEWSPAPER PHOTO EDITOR Inhaled Oxygen Concentration - - Weight 88.7 kg (195 lb 9.6 oz) 02/09/2024 8:59 A M NEWSPAPER PHOTO EDITOR Height 159.4 cm (5' 2.75 ) 02/09/2024 8:59 AM CS T Body Mass Index 34.93 02/09/2024 8:59 AM NEWSPAPER PHOTO EDITOR documented in this encounter Progress Notes * Yajaira Nunez MA - 02/09/2024 8:20 AM CSTAddended by: YAJAIRA NUNEZ on: 02/09/2024 11:13 AM Modules accepted: Orders PAPER PHOTO EDITOR * TYLER Weaver - 02/09/2024 8:20 AM CST Reason for Visit: ER F/U (Pt was seen at [place] [facility] 02/07/2024 for extreme muscle spasms. Pt stated she couldn't talk, breath and felt like her body wasn't her body) History of Present Illness: 48-year-old female here for follow-up from ER visit on 02/07/2024. She states she had multiple symptoms with facial twitching muscle spasms of bilateral upper extremities and felt like her whole bodywas going into spasm. She went to [facility] where they had a CT of her head and did not find anything. They did give her some IV Valium which she states did not really help much but was discharged after they cannot find anything. She states they concluded that her problem was due to benzodiazepine withdrawal. Patient states she had not taken any benzodiazepine in the last 2 weeks prior to onsetof the symptoms. Noted no new medications no new supplements [id number]. No new no illicit drug use. She did have a concussion in February 2023 and MRI was done post concussion which was normal. Currently denies any residual side effects although she states she can feel like she is on the verge of having it again with facial twitching. Patient states the ER did not run any labs we do not have the ER visit report yet denies headache blurry vision weakness at this time ROS: Review of Systems All other systems reviewed and are negative. Medications: Current Outpatient Medications: albuterol sulfate HFA 108 (90 Base) MCG/ACT inhaler, Inhale 2 puffs into the lungs every 4 (four) hours as needed for Wheezing or Shortness of breath., Disp: 18 g, Rfl: 0 cyclobenzaprine (FLEXERIL) 10 MG tablet, Take 1 tablet (10 mg total) by mouth as needed. FOR MUSCLESPASMS, Disp: , Rfl: DULoxetine (CYMBALTA) 30 MG capsule, Take 1 [...] night time., Disp: 90 capsule, Rfl: 1 hydrOXYzine (ATARAX) 10 MG tablet, Take 1 tablet (10 mg total) by mouth., Disp: , Rfl: meloxicam (MOBIC) 15 MG tablet, TAKE 1 [...] Past Medical History: Diagnosis Date ADHD Asthma ([facility]) COPD (chronic obstructive pulmonary disease) ([facility]) DINESH (obstructive sleep apnea) Past Surgical History: [...] Vitals reviewed. Constitutional: Appearance: Normal appearance. HENT: Right Ear: Tympanic membrane normal. Left Ear: [...] refill takes less than 2 seconds. Neurological: General: No focal deficit present. Mental Status: She is alert. Mental status is at baseline. She is disoriented. Cranial Nerves: No cranial nerve deficit. Sensory: No sensory deficit. Motor: No weakness. Coordination: Coordination abnormal. Gait: Gait normal. Deep Tendon Reflexes: Reflexes normal. Comments: Abnormal [id number] test. Psychiatric: Mood and Affect: Mood normal. Behavior: Behavior normal. Thought Content: Thought content normal. Judgment: Judgment normal. Filed Vitals: 02/09/24 0859 BP: (!) 155/89 Pulse: 78 Resp: 22 Temp: 98.1 ??F (36.7 ??C) TempSrc: Temporal SpO2: 98% Weight: 88.7 kg (195 lb 9.6 oz) Height: 1.594 m (5' 2.75 ) Diagnoses/Impression: 1. Post concussion syndrome CBC W/DIFF AUTOMATED MAGNESIUM MRI BRAIN WWO CON 2. Muscle spasm COMPREHENSIVE METABOLIC PANEL CBC W/DIFF AUTOMATED MAGNESIUM 3. Vitamin D deficiency VITAMIN D, 25 OH Recommendations and Plan: Will get MRI and check labs on her. May need referral to neurology Orders Placed This Encounter COMPREHENSIVE METABOLIC PANEL CBC W/DIFF AUTOMATED MAGNESIUM VITAMIN D, 25 OH MRI BRAIN WWO CON hydrOXYzine (ATARAX) 10 MG tablet cyclobenzaprine (FLEXERIL) 10 MG tablet Reviewed and updated this visit by provider: TYLER WEAVER Referring Provider: No ref. provider found PCP: TYLER WEAVER PAPER PHOTO EDITOR documented in this encounter Plan of Treatment Upcoming Encounters Date Type Department Care Team (Late st Contact Info) Description 02/12/2024 9:00 AM NEWSPAPER PHOTO EDITOR Appointment [facility] [address] [place] [address] [place] [address] [place] [address] [place] [address] [place], [place] [id number] 02/12/2024 2:00 PM NEWSPAPER PHOTO EDITOR Appointment [facility] [place] [address] [place] [address] [place] [address] [place] [address] 02/16/2024 9:00 AM NEWSPAPER PHOTO EDITOR Appointment [facility] [address] [place] [address] [place] [address] [place] [address] [place] [address] [place] [address] 02/19/2024 8:45 AM NEWSPAPER PHOTO EDITOR Appointment [facility]hab [address] [place] [address] [place] [address] [place] [address] [place] [address] [place] [address] 02/19/2024 9:00 AM NEWSPAPER PHOTO EDITOR Appointment [facility] [address] [place] [address] [place] [address] [place] [address] [place] [address] [place] [address] 02/23/2024 9:00 AM NEWSPAPER PHOTO EDITOR Appointment [facility] [address] [place] [address] [place] [address] [place] [address] [place] [address] [place] [address] 02/24/2024 1:30 PM NEWSPAPER PHOTO EDITOR Appointment [facility] [place] [address] [place] [address] Ihsan Logan, [address] [place] [address] 02/26/2024 9:00 AM NEWSPAPER PHOTO EDITOR Appointment [facility]hab [address] [place] [address] [place] [address] [place] [address] [place] [address] [place] [address] 02/26/2024 9:15 AM NEWSPAPER PHOTO EDITOR Appointment [facility] Outpatient Rehab [address] [place] [address] [place] [address] [place] [address] [place] [address] [place] [address] 03/01/2024 9:00 AM NEWSPAPER PHOTO EDITOR Appointment [facility] [address] [place] [address] [place] [address] [place] [address] Holger Soriano, TYLER [address] [place] [address] Lorene Branch, SHOE PARTS CASER 03/02/2024 12:27 PM NEWSPAPER PHOTO EDITOR Hospital Encounter [address] [address] [place] [address] [place] [address] 03/02/2024 12:27 PM NEWSPAPER PHOTO EDITOR - 03/02/2024 1:07 PM NEWSPAPER PHOTO EDITOR Surgery [facility] Surgery [address] [place] [address] [place] [address] [place] [address] MANIPULATION SHOULDER 03/05/2024 9:00 AM NEWSPAPER PHOTO EDITOR Appointment [facility] Out[facility]hab [address] [place] [address] [place] [address] [place] [address] Lorene Branch, SHOE PARTS CASER 03/08/2024 9:00 AM NEWSPAPER PHOTO EDITOR Appointment [facility]hab [address] [place] [address] [place] [address] [place] [address] Lorene Branch, SHOE PARTS CASER 03/11/2024 9:15 AM NEWSPAPER PHOTO EDITOR Appointment [facility] Outpatient [facility]hab [address] [place] [address] [place] [address] [place] [address] Lorene Branch, SHOE PARTS CASER 03/15/2024 9:00 AM NEWSPAPER PHOTO EDITOR Appointment [facility] [address] [place] [address] [place] [address] [place] [address] Lorene Branch, SHOE PARTS CASER 03/18/2024 9:15 AM NEWSPAPER PHOTO EDITOR Appointment [facility] Out[facility]hab [address] [place] [address] [place] [address] [place] [address] Lorene Branch, SHOE PARTS CASER 03/22/2024 9:00 AM NEWSPAPER PHOTO EDITOR Appointment [facility]hab [address] [place] [address] [place] [address] [place] [address] Lorene Branch, SHOE PARTS CASER 03/25/2024 9:15 AM NEWSPAPER PHOTO EDITOR Appointment [facility]hab [address] [place] [address] [place] [address] [place] [address] Lorene Branch, SHOE PARTS CASER 04/21/2024 11:20 AM NEWSPAPER PHOTO EDITOR Office Visit [facility] Family & Internal Medicine [facility] [address] [place] [phone] [place] [address] [place] [address] Scheduled Orders Name Type Priority Associated Diagnoses Orde r Schedule MRI BRAIN WWO CON MRI CHELE Post concussion syndrome Expected: 02/09/2024, Expires: 02/08/2025 Scheduled Procedures Name Priority Associated Diagnoses Date/Ti me MANIPULATION SHOULDER Adhesive capsulitis of left shoulder 03/02/2024 12:27 PM NEWSPAPER PHOTO EDITOR INJECTION JOINT Adhesive capsulitis of left shoulder 03/02/2024 12:27 PM NEWSPAPER PHOTO EDITOR documented as of this encounter Results * TSH W/REFLEX (02/09/2024 9:50 AM NEWSPAPER PHOTO EDITOR) TSH 0.761 0.358 - 3.74 uIU/ML 02/09/2024 11:36 AM NEWSPAPER PHOTO EDITOR [facility] Comment: HIGH DOSES OF BIOTIN MAY INTERFERE WITH THIS TEST RESULT. CORRELATION TO CLINICAL HISTORY AND PRESENTATION RECOMMENDED. FREE T4 NOT INDICATED 02/09/2024 9:50 AM NEWSPAPER PHOTO EDITOR [facility] Final Result Performing Organization Address [facility] Co de Phone Number [facility] [address] [place] [address], * (ABNORMAL) VITAMIN D, 25 OH (02/09/2024 9:50 AM NEWSPAPER PHOTO EDITOR) [facility] VITAMIN D 25 HYDROXY S/P/B 15(L) 30 - 100 NG/ML 02/09/2024 10:43 AM NEWSPAPER PHOTO EDITOR [facility] Comment: ? INTERPRETATION ? DEFICIENT ??<20 ? INSUFFICIENT 20-29 ?SUFFICIENT 30-100 02/09/2024 9:50 AM NEWSPAPER PHOTO EDITOR [facility] Final Result Performing Organization Address [facility] Co de Phone Number [facility] [address] [place] [address], * MAGNESIUM (02/09/2024 9:50 AM NEWSPAPER PHOTO EDITOR) [facility] MAGNESIUM 1.9 1.8 - 2.4 MG/DL 02/09/2024 10:20 AM NEWSPAPER PHOTO EDITOR [facility] 02/09/2024 9:50 AM NEWSPAPER PHOTO EDITOR [facility] Final Result Performing Organization Address [facility] Co de Phone Number [facility] [address] [place] [address], * (ABNORMAL) CBC W/DIFF AUTOMATED (02/09/2024 9:50 AM NEWSPAPER PHOTO EDITOR) [facility] WBC 7.25 4.4 - 11.0 x10'3/uL 02/09/2024 10:06 AM [facility] RBC 4.92 4.50 - 5.10 x10'6/uL 02/09/2024 10:06 AM [facility] HGB 13.9 12.3 - 15.3 G/DL 02/09/2024 10:06 AM [facility] HCT 41.3 35.9 - 44.6 % 02/09/2024 10:06 AM [facility] MCV 83.9 80.0 - 96.0 FL 02/09/2024 10:06 AM [facility] MCH 28.3 25.3 - 30.9 PG 02/09/2024 10:06 AM [facility] MCHC 33.7 31.0 - 34.1 G/DL 02/09/2024 10:06 AM [facility] RDW 13.8 12.4 - 15.1 % 02/09/2024 10:06 AM [facility] PLT 244 151 - 353 x10'3/uL 02/09/2024 10:06 AM [facility] MPV 9.1(L) 9.6 - 12.0 FL 02/09/2024 10:06 AM [facility] RBC MORPHOLOGY NORMAL 02/09/2024 10:06 AM [facility] PLT MORPH. NORMAL 02/09/2024 10:06 AM [facility] WBC MORPHOLOGY NORMAL 02/09/2024 10:06 AM [facility] LYMPHOCYTES % 24.7 15.8 - 45.0 % 02/09/2024 10:06 AM [facility] NEUTROPHILS % 59.3 42.1 - 71.9 % 02/09/2024 10:06 AM [facility] MONOCYTES % 4.8(L) 5.7 - 12.5 % 02/09/2024 10:06 AM [facility] EOSINOPHILS 10.3(H) 0.0 - 5.6 % 02/09/2024 10:06 AM [facility] BASOPHILS 0.8 0.0 - 1.3 % 02/09/2024 10:06 AM [facility] ABS. NEUTROPHILS 4.29 1.40 - 6.00 x10'3/uL 02/09/2024 10:06 AM [facility] IMMATURE GRANS % 0.1 0.0 - 0.5 % 02/09/2024 10:06 AM [facility] ABS. LYMPHOCYTES 1.79 0.80 - 4.70 x10'3/uL 02/09/2024 10:06 AM [facility] 02/09/2024 9:50 AM [facility] Final Result [facility] [address] [place] [address], * (ABNORMAL) COMPREHENSIVE METABOLIC PANEL (02/09/2024 9:50 AM NEWSPAPER PHOTO EDITOR) GLUCOSE 90 70 - 99 MG/DL 02/09/2024 10:20 AM [facility] BUN 14 7 - 18 MG/DL 02/09/2024 10:20 AM [facility] CREATININE S/P/B 0.63 0.55 - 1.02 MG/DL 02/09/2024 10:20 AM [facility] SODIUM S/P/B 141 136 - 145 MMOL/L 02/09/2024 10:20 AM [facility] POTASSIUM S/P/B 4.1 3.5 - 5.1 MMOL/L 02/09/2024 10:20 AM [facility] CHLORIDE S/P/B 107 100 - 108 MMOL/L 02/09/2024 10:20 AM [facility] CO2 25.3 21 - 32 MMOL/L 02/09/2024 10:20 AM [facility] CALCIUM S/P/B 9.1 8.5 - 10.1 MG/DL 02/09/2024 10:20 AM [facility] BILIRUBIN TOTAL S/P/B 1.2 0.2 - 1.2 MG/DL 02/09/2024 10:20 AM [facility] TOTAL PROTEIN S/P/B 7.9 6.4 - 8.2 G/DL 02/09/2024 10:20 AM [facility] ALBUMIN S/P/B 3.8 3.4 - 5.0 G/DL 02/09/2024 10:20 AM [facility] AST 35 15 - 37 U/L 02/09/2024 10:20 AM [facility] ALT 49 14 - 55 U/L 02/09/2024 10:20 AM [facility] ALKALINE PHOSPHATASE S/P/B 86 50 - 136 U/L 02/09/2024 10:20 AM [facility] ANION GAP 8.7 5 - 15 MMOL/L 02/09/2024 10:20 AM [facility] BUN CREATININE RATIO 22.2 6 - 26 02/09/2024 10:20 AM [facility] A/G RATIO 0.9(L) 1.0 - 2.0 RATIO 02/09/2024 10:20 AM [facility] GFR ESTIMATE >90 >90 ML/MIN/1.7 3 M2 02/09/2024 10:20 AM NEWSPAPER PHOTO EDITOR [facility] Comment: NOTE: eGFR is not calculated for patients <18 years of age. This is an estimated GFR calculation using the new CKD EPI creatinine equation without race and so does not require a correction factor for race. This estimated GFR should not be used for calculating drug doses. 02/09/2024 9:50 AM NEWSPAPER PHOTO EDITOR [facility] Final Result [facility] [address] [place] [address], documented in this encounter Visit Diagnoses Diagnosis Frozen shoulder- Primary Adhesive capsulitis of shoulder Post concussion syndrome- Primary Postconcussion syndrome Muscle spasm Spasm of muscle Vitamin D deficiency Unspecified vitamin D deficiency Type 2 diabetes mellitus without complications ([facility]) Type II or unspecified type diabetes mellitus without mention of complication, not stated as uncontrolled Adhesive capsulitis of left shoulder Adhesive capsulitis of shoulder documented in this encounter Additional Health Concerns Assessment Noted Time PHQ-9 Depression Total Score: 24 024 3:24 PM CDT documented as of this encounter Care Teams Outreach Counselor Relationship Specialty [place] [address] [place] [address] PCP - General Physician Salon Assistant Medical 09/16/23 documented as of this encounter
--- OUTSIDE RECORDS SUMMARY | 2024-02-12 03:28 | XMS_ITS | Encounter Summary ---
Author Organization [facility] Address [facility]. [place], [place] [address] [place] [address] Care Team Providers Care Material Handling Warehouse Supervisor Name Role Phone Holger oSriano Primary Care Provider [phone] Encounter Details Date Type Department Care Team (Latest Contact Info) Description 12/29/2023 Travel Social History Tobacco Use Types Packs/Day [...] st Contact Info) Description 02/12/2024 9:00 AM HYDROLOGY TECHNICIAN Appointment [facility] [address] [place], [place] [id number] [place] [address] [place] [phone] [place] [address] [place] [address] 02/12/2024 2:00 PM HYDROLOGY TECHNICIAN Appointment [facility] MRI [address] [place] [address] [place] [address] [place] [address] 02/16/2024 9:00 AM HYDROLOGY TECHNICIAN Appointment [facility] [address] [place] [address] [place] [address] [place] [address] [place] [address] [place] [address] 02/19/2024 8:45 AM HYDROLOGY TECHNICIAN Appointment [facility] [address] [place] [address] [place] [address] [place] [address] [place] [address] [place] [address] 02/19/2024 9:00 AM HYDROLOGY TECHNICIAN Appointment [facility] [address] [place] [address] [place] [address] [place] [address] [place] [address] [place] [address] 02/23/2024 9:00 AM HYDROLOGY TECHNICIAN Appointment [facility] [address] [place] [address] [place] [address] [place] [address] [place] [address] [place] [address] 02/24/2024 1:30 PM HYDROLOGY TECHNICIAN Appointment [facility] [address] [place] [address] [place] [address] [place] [address] 02/26/2024 9:00 AM HYDROLOGY TECHNICIAN Appointment [facility] [address] [place] [address] [place] [address] [place] [address] [place] [address] [place] [address] 02/26/2024 9:15 AM HYDROLOGY TECHNICIAN Appointment [facility] [address] [place] [address] [place] [address] [place] [address] [place] [address] [place] [address] 03/01/2024 9:00 AM HYDROLOGY TECHNICIAN Appointment [facility] [address] [place] [address] [place] [address] [place] [address] [place] [address] [place] [address] Lorene Branch, MARKET RISK SPECIALIST 03/02/2024 12:27 PM HYDROLOGY TECHNICIAN Hospital Encounter [facility] Surgery [address] [place] [address] [place] [address] [place] [address] 03/02/2024 12:27 PM HYDROLOGY TECHNICIAN - 03/02/2024 1:07 PM HYDROLOGY TECHNICIAN Surgery [facility] [address] [place] [address] [place] [address] [place] [address] MANIPULATION SHOULDER 03/05/2024 9:00 AM HYDROLOGY TECHNICIAN Appointment [facility] [address] [place] [address] [place] [address] [place] [address] Lorene Branch, MARKET RISK SPECIALIST 03/08/2024 9:00 AM HYDROLOGY TECHNICIAN Appointment [facility] [address] [place] [address] [place] [address] [place] [address] Lorene Branch, MARKET RISK SPECIALIST 03/11/2024 9:15 AM HYDROLOGY TECHNICIAN Appointment [facility] [address] [place] [address] [place] [address] [place] [address] Lorene Branch, MARKET RISK SPECIALIST 03/15/2024 9:00 AM HYDROLOGY TECHNICIAN Appointment [facility] [address] [place] [address] [place] [address] [place] [address] Lorene Branch, MARKET RISK SPECIALIST 03/18/2024 9:15 AM HYDROLOGY TECHNICIAN Appointment [facility] [address] [place] [address] [place] [address] [place] [address] Lorene Branch, MARKET RISK SPECIALIST 03/22/2024 9:00 AM HYDROLOGY TECHNICIAN Appointment [facility] [address] [place] [address] [place] [address] [place] [address] Lorene Branch, MARKET RISK SPECIALIST 03/25/2024 9:15 AM HYDROLOGY TECHNICIAN Appointment [facility] [address] [place] [address] [place] [address] [place] [address] Lorene Branch, MARKET RISK SPECIALIST 04/21/2024 11:20 AM HYDROLOGY TECHNICIAN Office Visit [facility] Family & Internal Medicine - [address] [phone] [place] [address] [place] [address] Scheduled Procedures Name Priority Associated Diagnoses Date/Ti me MANIPULATION SHOULDER Adhesive capsulitis of left shoulder 03/02/2024 12:27 PM HYDROLOGY TECHNICIAN INJECTION JOINT Adhesive capsulitis of left shoulder 03/02/2024 12:27 PM HYDROLOGY TECHNICIAN documented as of this encounter Visit Diagnoses Not on filedocumented in this encounter Additional Health Concerns Infection Onset Date Last Indicated Resolved Time COVID-19 Rule Out 12/29/2023 12/29/2023 12/29/2023 12:59 PM HYDROLOGY TECHNICIAN Assessment Noted Time PHQ-9 Depression Total Score: 024 3:24 PM CDT documented as of this encounter Care Teams Material Handling Warehouse Supervisor Relationship Specialty [place] [address] [place] [address] PCP - General Physician Scallop Binder Medical 09/16/23 documented as of this encounter
--- OUTSIDE RECORDS SUMMARY | 2024-02-12 03:28 | XMS_ITS | Encounter Summary ---
Author Organization [facility] Address [facility]. [place], [place] [address] [place] [id number] Care Team Providers Care Cloth Grader Name Role Phone Holger Soriano Primary Care Provider [phone] Reason for Visit * Reason Comments Sinus Problem S/s x 3-4 weeks Encounter Details Date Type Department Care Team (Late st Contact Info) Description 12/29/2023 1:20 PM PREFITTER Office Visit [facility] Family & Internal Medicine [facility] [address] [place] [address] [place] [address] [place] [address] [place] [address] [place] [address] Sinus Problem (S/s x 3-4 weeks ) Social History Tobacco Use Types Packs/Day Years Used Date Smoking Tobacco: Former Cigarettes Q uit: 03/18/2023 Passive Smoke Exposure: Current Smokeless Tobacco: Never Tobacco Cessation:Counseling Given: No Comments:na Alcohol Use Standard Drinks/Week Comments Yes [...] Sign Reading Time Taken Comments Blood Pressure 137/82 12/29/2023 11:55 AM PREFITTER Pulse 81 12/29/2023 11:55 AM PREFITTER Temperature 36.4 ??C (97.6 ??F) 12/29/2023 11:[address] Respiratory Rate 18 12/29/2023 11:55 AM PREFITTER Oxygen Saturation 99% 12/29/2023 11:55 AM PREFITTER Inhaled Oxygen Concentration - - Weight 87.6 kg (193 lb 3.2 oz) 12/29/2023 11:55 AM PREFITTER Height 159.4 cm (5' 2.75 ) 12/29/2023 11:[address] Body Mass Index 34.5 12/29/2023 11:55 AM PREFITTER documented in this encounter Patient Instructions * Attachments The following attachments cannot be sent through Care Everywhere. * Acute bronchitis (Puerto Rican) * Sinusitis Discharge Instructions, Adult ([place]ican) documented in this encounter Progress Notes * TYLER White - 12/29/2023 1:20 PM CSTAddended by: YANG HASKINS on: 12/29/2023 01:26 PM Modules accepted: Orders ITTER * TYLER White - 12/29/2023 1:20 PM CST Images from the original note were not included. _ Reason for Visit: Sinus Problem (S/s x 3-4 weeks ) History of Present Illness: HPI Oumou Middleton is a 48-year-old female here for patient or evaluation through the walk-in clinic for symptoms of upper respiratory infection to include nasal congestion, sore throat, and headache. Patient denies symptoms of visual disturbance or vomiting. Patient has noticed a fever. Patient has a cough with out wheezing. Patient denies shortness of breath. Patient has not had loose stools. Patient has been symptomatic for 3 to 4 weeks but did have a period of time in between there there where she felt improved. ROS: Review of Systems Feeling ill. Denies vision or hearing problems. Denies dysphagia, heartburn or indigestion. No dyspnea or chest pain on exertion. No nausea, abdominal pain, change in bowel habits, black or bloody stools. No urinary tract symptoms. No muscle or joint aches or pains. No foot or leg edema. No numbness, tingling,or weakness. No anxiety or depressive symptoms, Sleeping well. No significant weight gain or loss. Positive fatigue. Medications: Outpatient Medications Marked as Taking for the 12/29/23 encounter (Office Visit) with TYLER White Medication Sig Dispense Refill albuterol sulfate HFA 108 (90 Base) MCG/ACT inhaler Inhale 2 puffs into the lungs every 4 (four) hours as needed for Wheezing or Shortness of breath. 18 g 0 cefdinir (OMNICEF) 300 MG Cap capsule Take 1 capsule (300 mg total) by mouth 2 (two) times daily. 20 capsule 0 cyclobenzaprine (FLEXERIL) 10 MG tablet Take 1 tablet (10 mg total) by mouth as needed. FOR MUSCLE SPASMS 90 tablet 0 DULoxetine (CYMBALTA) 30 MG capsule Take 1 capsule (30 mg total) by mouth daily. 180 capsule 1 estradiol (ESTRACE) 2 MG tablet Take 1 tablet (2 mg total) by mouth daily. 28 tablet 2 fluticasone propionate (FLONASE) 50 MCG/ACT nasal spray 2 sprays by Each Nostril route daily. SHAKELIQUID gabapentin (NEURONTIN) 300 MG capsule Take 2 capsules (600 mg total) by mouth every evening for 30 days. 60 capsule 1 meloxicam (MOBIC) 15 MG tablet TAKE 1 TABLET (15 MG TOTAL) BY MOUTH DAILY. 30 tablet 0 progesterone (PROMETRIUM) 100 MG capsule take 1 capsule by mouth every day 90 capsule 1 QUEtiapine (SEROQUEL) 100 MG tablet Take 1 tablet (100 mg total) by mouth nightly at bedtime. at bedtime 90 tablet 0 semaglutide (OZEMPIC) 1 mg/dose injection (PEN) Inject 1 mg into the skin once a week. Indications:Diabetes 3 mL 3 SUMAtriptan (IMITREX) 25 MG tablet Take 1 tablet (25 mg total) by mouth daily as needed for Migraine. Max of 8 tablets (200 mg) in a 24 hour period. 30 tablet 2 terconazole (TERAZOL 3) 0.8 % vaginal cream Place 1 applicator vaginally nightly at bedtime. 1 g 0 Review of patient's allergies indicates: Allergen Reactions Parada Anaphylaxis Iodine Rash, Hives and Other (see comment) Reaction: Hives, Iodinated Contrast Media Unknown Itching Lidocaine Hives Ranitidine Unknown Risperidone Other (see comment) Reaction: OTHER REACTION Past Medical History: Diagnosis Date ADHD Asthma (HHS/HCC) COPD (chronic obstructive pulmonary disease) (CMS/HCC HHS/HCC) DINESH (obstructive sleep apnea) Past Surgical History: Procedure Laterality Date EAR CARTILAGE GRAFT TO FACE LAPAROSCOPIC CHOLECYSTECTOMY 2006 had reaction to anesthesia with this procedure REPAIR OF NASAL SEPTUM hemorrhage SINUS SURGERY PROC UNLISTED SPINAL FUSION,ANT,EA ADNL LEVEL L4-L5 Social History Tobacco Use Smoking status: Former Current packs/day: 0.00 Types: Cigarettes Quit date: 03/18/2023 Years since quittin.7 Passive exposure: Current Smokeless tobacco: Never Tobacco comments: na Vaping Use Vaping status: Never Used Substance Use Topics Alcohol use: Yes Comment: socially Drug use: Never Comment: na Family History Problem Relation Name Age of Onset Thyroid cancer Mother Dementia Mother Ovarian Cancer Mother Osteoarthritis Mother Endometriosis Sister Thyroid cancer Sister Other (thyroid cancer) Sister Dementia Maternal Grandmother Family Status Relation Name Status Mother (Not Specified) Sister (Not Specified) MGM (Not Specified) No partnership data on file Physical Exam Constitutional: Patient is oriented to person, place, and time. Patient appears well-developed and well-nourished. HENT: Right Ear: External ear normal. Left Ear: External ear normal. TMs do reveal air-fluid levels bilaterally. Head: Normocephalic. Maxillary and frontal sinus tenderness Nose: Nose normal. Turbinates are swollen Mouth/Throat: Oropharynx is clear and moist. Positive postnasal drainage yellow in color Eyes: Pupils are equal, round, and reactive to light. Neck: No JVD present. No thyromegaly present. No nuchal rigidity Cardiovascular: Normal rate, regular rhythm, normal heart sounds and intact distal pulses. No murmur heard. Pulmonary/Chest: No respiratory distress. Patient has no wheezes. Patient has no rales. Patient exhibits no tenderness. Abdominal: Patient exhibits no distension and no mass. There is no tenderness. There is no rebound and no guarding. Musculoskeletal: Normal range of motion. Patient exhibits no edema, tenderness or deformity. Lymphadenopathy: Patient has positive cervical adenopathy. Neurological: Patient is alert and oriented to person, place, and time. Skin: No rash noted. No erythema. Psychiatric: Patient has a normal mood and affect. The behavior is normal. Thought content normal. No data to display Vitals: 12/29/23 1155 BP: 137/82 Pulse: 81 Body mass index is 34.5 kg/m??. Assessment and Plan Encounter Diagnose(s) ICD-10-CM SNOMED CT(R) 1. Bronchitis J40 BRONCHITIS CORONAVIRUS (COVID-19) INFLUENZA A & B ANTIGEN IA PANEL cefdinir (OMNICEF) 300 MG Cap capsule 2. Suspected COVID-19 virus infection Z20.822 SUSPECTED COVID-19 CORONAVIRUS (COVID-19) INFLUENZA A& B ANTIGEN IA PANEL 3. Acute non-recurrent frontal sinusitis J01.10 ACUTE FRONTAL SINUSITIS 4. Acute vaginitis N76.0 ACUTE VAGINITIS terconazole (TERAZOL 3) 0.8 % vaginal cream Had to use Terazol instead of diflucan due to interaction QT with Seroquel Orders Placed This Encounter cefdinir (OMNICEF) 300 MG Cap capsule terconazole (TERAZOL 3) 0.8 % vaginal cream CORONAVIRUS (COVID-19) INFLUENZA A & B ANTIGEN IA PANEL Patient was told to push liquids and get lots of rest. Patient was told to use Tylenol for fever. Patient was told that if symptoms do not improve to utilize the emergency room, call their PCP, or follow back up with the walk-in clinic. If patient needs any additional time off not discussed and spelled out in a work release at this office visit they will need to contact the PCP or be seen in the walk in clinic. Patient should follow annual wellness exams recommended for age and sex of patient. Items to consider but not limited included yearly annual fasting labs, colonscopy or cologuard when indicated. PSA and prostate for males. Mammogram and female exam for females, Portions of this note were dictated using [employer] speech recognition software. Occasional wrong wordor sound-alike substitutions may have occurred due to the inherent limitations of voice recognition software. Please read the chart carefully and recognize, using context, where the substitutions may have occurred. Yang Haskins PA-C evaluated and Dr. Veronique Guzman reviewed and agrees with plan. Cosigned by Veronique Guzman MD at 12/30/2023 10:40 PM PREFITTER ITTER ITTER ITTER documented in this encounter Plan of Treatment Upcoming Encounters Date Type Department Care Team (Late st Contact Info) Description 02/12/2024 9:00 AM PREFITTER Appointment [facility] [address] [place] [address] [place] [address] [place] [address] [place] [address] [place] [address] 02/12/2024 2:00 PM PREFITTER Appointment [facility] [address] [place] [address] [place] [address] [place] [address] 02/16/2024 9:00 AM PREFITTER Appointment [facility] [address] [place] [address] [place] [address] [place] [address] [place] [address] [place] [address] 02/19/2024 8:45 AM PREFITTER Appointment [facility] [address] [place] [address] [place] [address] [place] [address] [place] [address] [place] [address] 02/19/2024 9:00 AM PREFITTER Appointment [facility] [address] [place] [address] [place] [address] [place] [address] [place] [address] [place] [address] 02/23/2024 9:00 AM PREFITTER Appointment [facility] [address] [place] [address] [place] [address] [place] [address] Holger Soriano, TYLER [address] [place] [address] 02/24/2024 1:30 PM PREFITTER Appointment [facility] [place] [address] [place] [address] Ihsan Logan, [address] [place] [address] 02/26/2024 9:00 AM PREFITTER Appointment [facility] [address] [place] [address] [place] [address] [place] [address] [place] [address] [place] [address] 02/26/2024 9:15 AM PREFITTER Appointment [facility] [address] [place] [address] [place] [address] [place] [address] [place] [address] [place] [address] 03/01/2024 9:00 AM PREFITTER Appointment [facility] [address] [place] [address] [place] [address] [place] [address] [place] [address] [place] [address] Lorene Branch, AUTO WHEEL ALIGNMENT SPECIALIST 03/02/2024 12:27 PM PREFITTER Hospital Encounter [address] [address] [place] [address] [place] [address] 03/02/2024 12:27 PM PREFITTER - 03/02/2024 1:07 PM PREFITTER Surgery [facility] Surgery [address] [place] [address] [place] [address] [place] [address] MANIPULATION SHOULDER 03/05/2024 9:00 AM PREFITTER Appointment [facility] [address] [place] [address] [place] [address] [place] [address] Lorene Branch, AUTO WHEEL ALIGNMENT SPECIALIST 03/08/2024 9:00 AM PREFITTER Appointment [facility] [address] [place] [address] [place] [address] [place] [address] Lorene Branch, AUTO WHEEL ALIGNMENT SPECIALIST 03/11/2024 9:15 AM PREFITTER Appointment [facility] [address] [place] [address] [place] [address] [place] [address] Lorene Branch, AUTO WHEEL ALIGNMENT SPECIALIST 03/15/2024 9:00 AM PREFITTER Appointment [facility] [address] [place] [address] [place] [address] [place] [address] Lorene Branch, AUTO WHEEL ALIGNMENT SPECIALIST 03/18/2024 9:15 AM PREFITTER Appointment [facility] [address] [place] [address] [place] [address] [place] [address] Lorene Branch, AUTO WHEEL ALIGNMENT SPECIALIST 03/22/2024 9:00 AM PREFITTER Appointment [facility] [address] [place] [address] [place] [address] [place] [address] Lorene Branch, AUTO WHEEL ALIGNMENT SPECIALIST 03/25/2024 9:[address] [facility] [address] [place] [address] [place] [address] [place] [address] Lorene Branch, AUTO WHEEL ALIGNMENT SPECIALIST 04/21/2024 11:20 AM PREFITTER Office Visit [facility] Family & Internal Medicine [facility] [address] [place] [address] [place] [address] [place] [address] Scheduled Procedures Name Priority Associated Diagnoses Date/Ti me MANIPULATION SHOULDER Adhesive capsulitis of left shoulder 03/02/2024 12:27 PM PREFITTER INJECTION JOINT Adhesive capsulitis of left shoulder 03/02/2024 12:27 PM PREFITTER documented as of this encounter Procedures Procedure Name Priority Date/Time Associated Diagnosis Comments CORONAVIRUS (COVID-19) INFLUENZA A & B ANTIGEN IA PANEL Routine 12/29/2023 Bronchitis Suspected COVID-19 virus infection documented in this encounter Results * CORONAVIRUS (COVID-19) INFLUENZA A & B ANTIGEN IA PANEL (12/29/2023) CORONAVIRUS ANTIGEN IA NEGATIVE NEGATIVE -[id number] [facility] INFLUENZA A NEGATIVE NEGATIVE -61217 [facility] INFLUENZA B NEGATIVE NEGATIVE MG-[id number] [facility] Internal Control: VALID VALID -[id number] [facility] NASAL STRUCTURE / Unknown 12/29/2023 us Yang [facility] - GENERAL ORDER DORIS Final Result [id number] [address] [place] [address] [place] [address], documented in this encounter Visit Diagnoses Diagnosis Bronchitis- Primary Bronchitis, not specified as acute or chronic Suspected COVID-19 virus infection Acute non-recurrent frontal sinusitis Acute vaginitis Vaginitis and vulvovaginitis, unspecified Adhesive capsulitis of left shoulder Adhesive capsulitis of shoulder documented in this encounter Additional Health Concerns Assessment Noted Time PHQ-9 Depression Total Score: 024 3:24 PM CDT documented as of this encounter Care Teams Cloth Grader Relationship Specialty [place] [address] [place] [address] PCP - General Physician Train Driver Medical 09/16/23 documented as of this encounter
--- OUTSIDE RECORDS SUMMARY | 2024-02-12 03:29 | XMS_ITS | Encounter Summary ---
Author Organization [facility] Address [facility]. [place], [place] [address] [place] [id number] Care Team Providers Care Director Of Event Sales Name Role Phone Holger Soriano Primary Care Provider [phone] Reason for Visit * Reason Comments Shoulder Pain Shoulder Re-eval * Physical Medicine (Urgent) - Authorized Specialty Diagnoses / Procedures Referred By Shmuel angel Referred To Contact PHYSICAL THERAPY Diagnoses Left shoulder pain Low back pain Procedures OFFICE/OUTPATIENT NEW LOW MDM 30-44 MINUTES OFFICE/OUTPT VISIT,NEW,LEVL IV OFFICE/OUTPT VISIT,NEW,LEVL V OFFICE/OUTPT VISIT,EST,LEVL III OFFICE/OUTPT VISIT,EST,LEVL IV OFFICE/OUTPT VISIT,[place] [address] [place] [address] Phone: tel: fax: [facility] [address] [place] [address] Phone: tel: fax: Referral ID Status Reason Start Date Expiration Date Visits Requested Visits Authorized [id number] Authorized Physical Therapy 10/13/2023 11/11/2024 99 [phone] Encounter Details Date Type Department Care Team (Latest Contact Info) Description 12/04/2023 9:33 AM CDT - 12/04/2023 11:59 PM CDT Hospital Encounter [facility] [address] [place] [address] [place] [address] [place], [place] [phone] [place] [address] [place], [place] [phone] Shoulder Pain (Shoulder Re-eval/) Discharge Disposition: Home or Self Care (Routine Discharge) Social History Tobacco Use Types Packs/Day Years Used Date Smoking Tobacco: Former Cigarettes Q uit: 03/18/2023 Passive Smoke Exposure: Current Smokeless Tobacco: Never Alcohol Use Standard Drinks/Week Comments Yes 0 (1 standard drink = 0.6 oz pur e alcohol) PHQ-2 Answer Date Recorded Patient Health Questionnaire-2 [...] or Shortness of breath. 18 g 04/01/2023 DULoxetine (CYMBALTA) 30 MG capsuleIndication s:Depression, unspecified [...] 24 hour period. 30 tablet 2 11/28/2023 cyclobenzaprine (FLEXERIL) 10 MG tablet Take 1 tablet (10 mg total) by mouth as needed. FOR MUSCLE SPASMS 07/01/2023 4 diazePAM (VALIUM) 5 MG tabletIndications :Acute bilateral low back pain with bilateral sciatica Take 1 tablet (5 mg total) by mouth every 12 (twelve) hours as needed for Anxiety. 10 tablet 11/07/2023 4 doxycycline hyclate (VIBRAMYCIN) 100 MG capsuleIndication s:Acute non-recurrent frontal sinusitis Take 1 capsule (100 mg total) by mouth 2 (two) times daily for 10 days. 20 capsule 12/02/2023 4 estradiol (ESTRACE) 2 MG tabletIndications :Menopausal and female climacteric states Take 1 tablet (2 mg total) by mouth daily. 28 tablet 2 03/18/2023 4 fluconazole (DIFLUCAN) 150 MG tabletIndications :Acute non-recurrent frontal sinusitis One now one in a week.Patient has taken with Seroquel in the past without incident. 2 tablet 12/02/2023 4 fluticasone propionate (FLONASE) 50 MCG/ACT nasal spray 2 sprays by Each Nostril route daily. SHAKE LIQUID 03/28/2022 4 gabapentin (NEURONTIN) 300 MG capsuleIndication s:Chronic left shoulder pain TAKE 1 CAPSULE(300 MG) BY MOUTH EVERY EVENING 30 capsule 11/11/2023 4 meloxicam (MOBIC) 15 MG tabletIndications :Acute bilateral low back pain with bilateral sciatica TAKE 1 TABLET (15 MG TOTAL) BY MOUTH DAILY. 30 tablet 12/04/2023 4 ondansetron (ZOFRAN) 4 MG tabletIndications :Type 2 diabetes mellitus without complication, with long-term current use of insulin ([facility]) Take 1 tablet (4 mg total) by mouth every 8 (eight) hours as needed for Nausea. 20 tablet 11/19/2023 4 progesterone (PROMETRIUM) 100 MG capsuleIndication s:Menopausal and female climacteric states take 1 capsule by mouth every day 90 capsule 1 06/10/2023 4 documented as of this encounter Progress Notes * Padmaja Marcia Marie, PT - 12/04/2023 10:15 AM CDT [facility] [address] [facility] [address] Dept: [phone] Dept Physical Therapy Recertification Patient name: Oumou Middleton : 1975 Date: 12/04/23 Diagnosis: The encounter diagnosis was Left shoulder pain. Referring Provider: Bo Date of reporting period from 10/23/23 to 12/04/23 Visits: 10 for L shoulder (also completed a LBP evaluation but no further tx for low back performedfor emph on L shoulder) Subjective: Pain Level: L shoulder 4-5/10, up to 8/10 with end range stretches Current Function: Does note overall she is making some progress with PT. On good days she can lift a gallon of milk or quickly grab her dog's collar without dropping to her knees in pain. Function continues to fluctuate. Used to not be able to put her arms up into the sink to do dishes, some daysnow she can but then other days she cannot tolerate this. Takes regular cycle of meloxicam and gabapentin to control pain. Has not yet tried injection but did take prednisone when the pain first started. Does feel like recent increase in pain is from weather changing. Also notes ongoing tingling across shoulder blades. Objective Data: Eval Status (10/23/23) Current Status (12/04/23) CERVICAL AROM in Degrees Flexion: 25% (pain B scap) Extension: 50% (pain B scap) Rotation R: 60 (L side neck pain) Rotation L: 45 (L side neck pain) CERVICAL AROM in Degrees Flexion: 25% (pain B scap) Extension: 50% (pain B scap) Rotation R: 60 (L side neck pain) Rotation L: 60 (L side neck pain) SHOULDER AROM in Degrees Flexion L: 70 active, 102 self AAROM - pain ABDuction L: 90 (pain) Internal rotation L: 40 (pain) External rotation L: 10 (pain) Functional IR L: L lateral hip (pain) Functional ER L: L side of forehead (pain) SHOULDER AROM in Degrees Flexion L: 110 active, 120 AAROM (pain) ABDuction L: 95 (pain) (Scaption 110) Internal rotation L: 55 (pain) External rotation L: 12 (pain) Functional IR L: L back pocket with thumb and index finger (pain) Functional ER L: C2 (pain) Goals: (to be achieved by discharge) PROGRESSING FOR NEW EX- Decreased knowledge of how to manage symptoms independently: GOAL: Patient able to perform individualized home exercise program for independent symptom management within 8 weeks. ONGOING- Impaired sleep: GOAL: Patient to report pain less than or equal to 1/10, as shown by visual analog scale, for restful sleeping in bed within 8 weeks. PROGRESSING- Impaired overhead dressing: GOAL: Patient to increase Left shoulder flexion active range of motion to greater than or equal to 150 degrees to assist with overhead dressing within 8 weeks PROGRESSING- Impaired ability to wash hair: GOAL: Patient to exhibit Left functional external rotation to at least C7 to allow reaching behind head and washing hair within 8 weeks. PROGRESSING- Impaired ability to reach behind back: GOAL: Patient to exhibit Left functional internal rotation to at least T8 to allow reaching behind their back for washing and dressing within 8 weeks. ONGOING- Limited strength affecting functional activity: GOAL: Patient to increase Left shoulder strength to 4/5 so they can return to lifting objects at work within 8 weeks. PROGRESSING SLOWLY- Functional/Disability scale shows deficits in activity: GOAL: Patient to score at least 40% disability on the Quick DASH scale to demonstrate improvement in overall function within 8 weeks. PROGRESSING SLOWLY- Other GOAL: Patient to report at least 50% decrease in LUE numbness and tingling for improved comfort with sleeping and driving within 8 weeks. PROGRESSING- Patient to improve B cervical ROT to at least 70 degrees and flexion to 75% for improved ability to turn head with driving and working within 8 weeks. Assessment Statement: Oumou is making progress toward her PT goals. Pain levels remain high though she notes subjective function is gradually improving. ROM overall has improved but still painful. Cervical ROM has improved as well, and she demonstrates some signs/symptoms of nerve tension in her LUE. I do feel continued skilled PT is appropriate to continue addressing her functional deficits and improve use of LUE. Recommendations: Continue PT 2x/week for 10 additional visits - total of 20 per POC Therapist: Padmaja Marie, PT Date: 12/04/23 Time: 10:11 AM I certify that the above rehabilitative services are required, authorized, and reviewed. Physician signature: Date: Time: Patient Name: Oumou Middleton : 1975 Cosigned by TYLER Weaver at 12/05/2023 8:15 AM CDT * Padmaja Marie, PT - 12/04/2023 10:15 AM CDT Physical Therapy Visit Note: Patient Name: Oumou Middleton Diagnosis: Left shoulder pain (primary encounter diagnosis) SUBJECTIVE Therapy Visit Start Time: 1015 Stop Time: 1120 Time Calculation (min): 65 min Treatment Day: 10 for SH/1 for LB (SH re-eval today, pt wants to focus on that) Total Approved Visits: 20 for both SH (re-eval 10th visit for SH), 16 for back Therapy Plan of Care: 2x/week for 8 weeks Current Therapy Orders: eval and tx Diagnosis: L shoulder pain, low back pain Referring Provider: Holger Suarez MD Visit: MRI 12/10/23 Date of Injury: Shoulder- Fell Feb 2023 but pain started in Nov 2022. Low back - exacerbated early Oct. 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 PROM: gentle, slow PROM all planes (with MHP held down with sheet) x 8 min - supine LEs on bolster (pillow under LUE also with towel roll) Exercise: Pulleys scaption, butterfly x 2-3 min each (longer holds) with MHP Exercise: Wall slides flexion and scap (towel), with light assist from RUE x 10 each with MHP on Exercise: Table slides (longer holds) flexion, scaption, ER x [address] (chair laterally at table) Exercise: next- SB on table SH flexion and scap x 15 each Exercise: next - Supine cane flex x 10 Exercise: next - pendulums fwd/retro and L/R x 10 ea direction Exercise: supine median nerve glides 2 x 10 gentle Exercise: Chin tucks standing x 5 (inc pain) Exercise: Seated ER with cane (neutral SH) x 10 - next Exercise: cervical distraction x 10, cervical ROT and SB PROM x [address] Exercise: held - SO release x 3 Exercise: next- attempt LTR, DKTC, lumbar distraction on SB as tolerated Exercise: next- may trial prone over pillows/prone lying as tolerated, or lumbar ext at wall Other (Comments): Time also includes objective measures for re-evaluation today. See note for details. Education Was Education Provided: Yes Topic: ther ex, progress with PT, PT POC Recipient: Patient Method: Demonstration, Verbal, Return Demonstration Response: Verbalized understanding, Asked questions, Demonstrates adequately ASSESSMENT Assessment Note: Oumou is making progress toward her PT goals. Ongoing high level of pain at this time. ROM measurements are improving. See note for details. Response to Treatment : pt pleased she is making progress Continue on Functional Deficit of: L shoulder pain with dressing, bathing, work, sleep PLAN Plan Next Visit Plan: Continue PT per POC, 2x/week for 10 additional minutes Total Time Total Time in Minutes: 65 Timed Code Treatment Minutes : 65 documented in this encounter Plan of Treatment Upcoming Encounters Date Type Department Care Team (Late [facility] Info) Description 02/12/2024 9:00 AM CARDIOVASCULAR TECHNOLOGIST Appointment [facility] [address] [place] [address] [place] [address] [place] [address] [place] [address] [place] [address] 02/12/2024 2:00 PM CARDIOVASCULAR TECHNOLOGIST Appointment [facility] [address] [place] [address] [place] [address] [place] [address] 02/16/2024 9:00 AM CARDIOVASCULAR TECHNOLOGIST Appointment [facility] [address] [place] [address] [place] [address] [place] [address] [place] [address] [place] [address] 02/19/2024 8:45 AM CARDIOVASCULAR TECHNOLOGIST Appointment [facility] [address] [place] [address] [place] [address] [place] [address] [place] [address] [place] [address] 02/19/2024 9:00 AM CARDIOVASCULAR TECHNOLOGIST Appointment [facility] [address] [place] [address] [place] [address] [place] [address] [place] [address] [place] [address] 02/23/2024 9:00 AM CARDIOVASCULAR TECHNOLOGIST Appointment [facility] [address] [place] [address] [place] [address] [place] [address] [place] [address] [place] [address] 02/24/2024 1:30 PM CARDIOVASCULAR TECHNOLOGIST Appointment [facility] [address] [place] [address] Ihsan Logan, [address] [place] [address] 02/26/2024 9:00 AM CARDIOVASCULAR TECHNOLOGIST Appointment [facility] [address] [place] [address] [place] [address] [place] [address] [place] [address] [place], [place] [id number] 02/26/2024 9:15 AM CARDIOVASCULAR TECHNOLOGIST Appointment [facility] [address] [place] [address] [place] [address] [place] [address] [place] [address] [place] [address] 03/01/2024 9:00 AM CARDIOVASCULAR TECHNOLOGIST Appointment [facility] [address] [place] [address] [place] [address] [place] [address] [place] [address] [place] [address] Lorene Branch, RAILCAR FOREMAN 03/02/2024 12:27 PM CARDIOVASCULAR TECHNOLOGIST Hospital Encounter [facility] [address] [place] [address] [place] [address] [place] [address] 03/02/2024 12:27 PM CARDIOVASCULAR TECHNOLOGIST - 03/02/2024 1:07 PM CARDIOVASCULAR TECHNOLOGIST Surgery [facility] [address] [place] [address] [place] [address] [place] [address] MANIPULATION SHOULDER 03/05/2024 9:00 AM CARDIOVASCULAR TECHNOLOGIST Appointment [facility] [address] [place] [address] [place] [address] [place] [address] Lorene Branch, RAILCAR FOREMAN 03/08/2024 9:00 AM CARDIOVASCULAR TECHNOLOGIST Appointment [facility] [address] [place] [address] [place] [address] [place] [address] Lorene Branch, RAILCAR FOREMAN 03/11/2024 9:15 AM CARDIOVASCULAR TECHNOLOGIST Appointment [facility] [address] [place] [address] [place] [address] [place] [address] Lorene Branch, RAILCAR FOREMAN 03/15/2024 9:00 AM CARDIOVASCULAR TECHNOLOGIST Appointment [facility] [address] [place] [address] [place] [address] [place] [address] Lorene Branch, RAILCAR FOREMAN 03/18/2024 9:15 AM CARDIOVASCULAR TECHNOLOGIST Appointment [facility] [address] [place] [address] [place] [address] [place] [address] Lorene Branch, RAILCAR FOREMAN 03/22/2024 9:00 AM CARDIOVASCULAR TECHNOLOGIST Appointment [facility] [address] [place] [address] [place] [address] [place] [address] Lorene Branch, RAILCAR FOREMAN 03/25/2024 9:15 AM CARDIOVASCULAR TECHNOLOGIST Appointment [facility] [address] [place] [address] [place] [address] [place] [address] Lornee Branch, RAILCAR FOREMAN 04/21/2024 11:20 AM CARDIOVASCULAR TECHNOLOGIST Office Visit [facility] [address] [place] [phone] [place] [address] [place], [place] [phone] Scheduled Procedures Name Priority Associated Diagnoses Date/Ti me MANIPULATION SHOULDER Adhesive capsulitis of left shoulder 03/02/2024 12:27 PM CARDIOVASCULAR TECHNOLOGIST INJECTION JOINT Adhesive capsulitis of left shoulder 03/02/2024 12:27 PM CARDIOVASCULAR TECHNOLOGIST documented as of this encounter Visit Diagnoses Diagnosis Left shoulder pain- Primary Pain in joint, shoulder region Adhesive capsulitis of left shoulder Adhesive capsulitis of shoulder documented in this encounter Additional Health Concerns Assessment Noted Time PHQ-9 Depression Total Score: 024 3:24 PM CDT documented as of this encounter Care Teams Director Of Event Sales Relationship Specialty [place] [address] [place] [address] PCP - General Physician Food Cart Attendant Medical 09/16/23 documented as of this encounter
--- OUTSIDE RECORDS SUMMARY | 2024-02-12 03:29 | XMS_ITS | Encounter Summary ---
Author Organization [facility] Address [facility]. [place], [place] [address] [place] [id number] Care Team Providers Care Chief Of Service Name Role Phone Holger Soriano Primary Care Provider [phone] Reason for Visit * Reason Comments Back Pain Shoulder Pain * Physical Medicine (Urgent) - Authorized Specialty Diagnoses / Procedures Referred By Shmuel t Referred To Contact PHYSICAL THERAPY Diagnoses Left shoulder pain Low back pain Procedures OFFICE/OUTPATIENT NEW LOW MDM 30-44 MINUTES OFFICE/OUTPT VISIT,NEW,LEVL IV OFFICE/OUTPT VISIT,NEW,LEVL V OFFICE/OUTPT VISIT,EST,LEVL III OFFICE/OUTPT VISIT,EST,LEVL IV OFFICE/OUTPT VISIT,[place] [address] [place] [address] Phone: tel: fax: [facility] Outpatient Rehab [address] [place] [address] Phone: tel: fax: Referral ID Status Reason Start Date Expiration Date Visits Requested Visits Authorized [id number] Authorized Physical Therapy 10/13/2023 11/11/2024 99 99 Encounter Details Date Type Department Care Team (Latest Contact Info) Description 11/24/2023 9:00 AM CDT - 11/24/2023 11:59 PM CDT Hospital Encounter [facility] Outpatient Rehab [address] [place], [place] [id number] [place] [address] [place] [address] Era Field PTA Back Pain; Shoulder Pain Discharge Disposition: Home [...] Indications: Diabetes 3 mL 3 11/19/2023 5 cyclobenzaprine (FLEXERIL) 10 MG tablet Take 1 tablet (10 mg total) by mouth as needed. FOR MUSCLE SPASMS 07/01/2023 4 diazePAM (VALIUM) 5 MG tabletIndications :Acute bilateral low back pain with bilateral sciatica Take 1 tablet (5 mg total) by mouth every 12 (twelve) hours as needed for Anxiety. 10 tablet 11/07/2023 4 DULoxetine (CYMBALTA) 30 MG capsule Take 1 capsule (30 mg total) by mouth daily. 4 estradiol (ESTRACE) 2 MG tabletIndications :Menopausal [...] pain with bilateral sciatica Take 1 tablet (15 mg total) by mouth daily. 30 tablet 11/07/2023 4 ondansetron (ZOFRAN) 4 MG tabletIndications :Type 2 diabetes mellitus without complication, with long-term current use of insulin ([facility]/HCC HHS/HCC) Take 1 tablet (4 mg total) by mouth every 8 (eight) hours as needed for Nausea. 20 tablet 11/19/2023 4 progesterone (PROMETRIUM) 100 MG capsuleIndication s:Menopausal and female climacteric states take 1 capsule by mouth every day 90 capsule 1 06/10/2023 4 SUMAtriptan (IMITREX) 25 MG tabletIndications :Migraine with status migrainosus, not intractable, unspecified migraine type Take 1 tablet (25 mg total) by mouth daily as needed for Migraine. Max of 8 tablets (200 mg) in a 24 hour period. 30 tablet 2 09/16/2023 4 documented as of this encounter Progress Notes * Era Field PTA - 11/24/2023 9:00 AM CDT Physical Therapy Visit Note: Patient Name: Oumou Middleton Diagnosis: Left shoulder pain SUBJECTIVE Therapy Visit Start Time: 902 Stop Time: 944 Time Calculation (min): 42 min Treatment Day: 7 for SH/1 for LB Total Approved Visits: 16 per POC for both SH and back Therapy Plan of Care: 2x/week for 8 weeks Current Therapy Orders: eval and tx Diagnosis: L shoulder pain, low back pain Referring Provider: Holger Suarez MD Visit: MRI 12/10/23 Date of Injury: Shoulder- Fell Feb 2023 but pain started in Nov 2022. Low back - exacerbated early Oct. 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[employer] Job Duties: Has help at work to lift things currently Subjective Note: My SH is stiff and sore. My back is much looser. 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 Exercise: Pulleys scaption, butterfly x 2 min each (longer holds) Exercise: Wall slides flexion (towel), with light assist from RUE x 10 Exercise: Table slides (longer holds) flexion, scaption x [address] Exercise: SB on table SH flexion x 15 Exercise: Supine cane flex x 10 Exercise: next - pendulums fwd/retro and L/R x 10 ea direction (held due to back pain) Exercise: PROM all planes (with MHP) x 15 min (gentle, slow) Exercise: joint mobs - next Exercise: Chin tucks supine x 15 Exercise: cervical retraction + extension progression as appropriate Exercise: Seated ER with cane (neutral SH) x 10 Exercise: cervical distraction x 5, cervical ROT PROM x [address] Exercise: SO release x 3 Exercise: Gentle elbow PROM flex/ext x 10 with gentle distraction (unable to extend elbow today dueto pain) Exercise: held - attempted gentle distraction and LTR with LEs on orange SB but inc pain (pt crying) Modalities Non-Timed Electrical Stimulation Unattended - 29047/G0283: IFC to low back x 15 min (supine, bolster under knees) (performed cervical/SH stretches during) Hot Pack - 95545: MHP to L shoulder and low back Other (Comments): Not performed this session Home Exercise Program Current Home Exercise Program: Continue HEP Education Was Education Provided: Yes Topic: PT POC, ther ex, modalities/IFC Recipient: Patient Method: Demonstration, Verbal, Return Demonstration Response: Verbalized understanding, Asked questions ASSESSMENT Assessment Note: Focus was on SH this session. Her pain levels have decreased since beginning PT intervention.She continues to have lateral elbow pain and stiffness with elbow EXT. Tenderness during cervical distraction, rotation and SO release, L>R. During pulleys she was unable to keep SH @ 90??flexion & neutral ABD. Response to Treatment : I feel a little better. Continue on Functional Deficit of: L shoulder pain with dressing, bathing, work, sleep PLAN Plan Next Visit Plan: Progress activities for SH/low back as tolerated Total Time Total Time in Minutes: 42 Timed Code Treatment Minutes : 42 documented in this encounter Plan of Treatment Upcoming Encounters Date Type Department Care Team (Late st Contact Info) Description 02/12/2024 9:00 AM HOMICIDE INVESTIGATOR Appointment [facility] Outpatient Rehab [address] [place] [address] [place] [address] [place] [address] [place] [address] [place] [address] 02/12/2024 2:00 PM HOMICIDE INVESTIGATOR Appointment [facility] MRI [address] [place] [address] [place] [address] [place] [address] 02/16/2024 9:00 AM HOMICIDE INVESTIGATOR Appointment [facility] Outpatient Rehab [address] [place] [address] [place] [address] [place] [address] [place] [address] [place] [address] 02/19/2024 8:45 AM HOMICIDE INVESTIGATOR Appointment [facility] Outpatient Rehab [address] [place] [address] [place] [address] [place] [address] [place] [address] [place] [address] 02/19/2024 9:00 AM HOMICIDE INVESTIGATOR Appointment [facility] Outpatient Rehab [address] [place] [address] [place] [address] [place] [address] [place] [address] [place] [address] 02/23/2024 9:00 AM HOMICIDE INVESTIGATOR Appointment [facility] Outpatient Rehab [address] [place] [address] [place] [address] [place] [address] [place] [address] [place] [address] 02/24/2024 1:30 PM HOMICIDE INVESTIGATOR Appointment [facility] [address] [place] [address] [place] [address] [place] [address] 02/26/2024 9:00 AM HOMICIDE INVESTIGATOR Appointment [facility] Outpatient Rehab [address] [place] [address] [place] [address] [place] [address] [place] [address] [place] [address] 02/26/2024 9:15 AM HOMICIDE INVESTIGATOR Appointment [facility] Outpatient Rehab [address] [place] [address] [place] [address] [place] [address] [place] [address] [place] [address] 03/01/2024 9:00 AM HOMICIDE INVESTIGATOR Appointment [facility] Outpatient Rehab [address] [place] [address] [place] [address] [place] [address] [place] [address] [place] [address] Lorene Branch, TOOL LATHE OPERATOR 03/02/2024 12:27 PM HOMICIDE INVESTIGATOR Hospital Encounter [facility] Surgery [address] [place] [address] [place] [address] [place] [address] 03/02/2024 12:27 PM HOMICIDE INVESTIGATOR - 03/02/2024 1:07 PM HOMICIDE INVESTIGATOR Surgery [facility] [address] [place] [address] [place] [address] [place] [address] MANIPULATION SHOULDER 03/05/2024 9:00 AM HOMICIDE INVESTIGATOR Appointment [facility] Outpatient Rehab [address] [place] [address] [place] [address] [place] [address] Lorene Branch, TOOL LATHE OPERATOR 03/08/2024 9:00 AM HOMICIDE INVESTIGATOR Appointment [facility] Outpatient Rehab [address] [place] [address] [place] [address] [place] [address] Lorene Branch, TOOL LATHE OPERATOR 03/11/2024 9:15 AM HOMICIDE INVESTIGATOR Appointment [facility] Outpatient Rehab [address] [place] [address] [place] [address] [place] [address] Lorene Branch, TOOL LATHE OPERATOR 03/15/2024 9:00 AM HOMICIDE INVESTIGATOR Appointment [facility] Outpatient Rehab [address] [place] [address] [place] [address] [place] [address] Lorene Branch, TOOL LATHE OPERATOR 03/18/2024 9:15 AM HOMICIDE INVESTIGATOR Appointment [facility] Outpatient Rehab [address] [place] [address] [place] [address] [place] [address] Lorene Branch, TOOL LATHE OPERATOR 03/22/2024 9:00 AM HOMICIDE INVESTIGATOR Appointment [facility] Outpatient Rehab [address] [place] [address] [place] [address] [place] [address] Lorene Branch, TOOL LATHE OPERATOR 03/25/2024 9:15 AM HOMICIDE INVESTIGATOR Appointment [facility] Outpatient Rehab [address] [place] [address] [place] [address] [place] [address] Lorene Branch, TOOL LATHE OPERATOR 04/21/2024 11:20 AM HOMICIDE INVESTIGATOR Office Visit [facility] Family & Internal Medicine - [address] [address] [place] [address] [place] [address] Scheduled Procedures Name Priority Associated Diagnoses Date/Ti me MANIPULATION SHOULDER Adhesive capsulitis of left shoulder 03/02/2024 12:27 PM HOMICIDE INVESTIGATOR INJECTION JOINT Adhesive capsulitis of left shoulder 03/02/2024 12:27 PM HOMICIDE INVESTIGATOR documented as of this encounter Visit Diagnoses Diagnosis Left shoulder pain- Primary Pain in joint, shoulder region Adhesive capsulitis of left shoulder Adhesive capsulitis of shoulder documented in this encounter Additional Health Concerns Assessment Noted Time PHQ-9 Depression Total Score: 24 024 3:24 PM CDT documented as of this encounter Care Teams Chief Of Service Relationship Specialty [place] [address] [place] [address] PCP - General Physician Customer Project Manager Medical 09/16/23 documented as of this encounter
--- OUTSIDE RECORDS SUMMARY | 2024-02-12 03:29 | XMS_ITS | Encounter Summary ---
Author Organization [facility] Address [facility]. [place], [place] [address] [place] [address] Care Team Providers Care Side Hemmer Name Role Phone Holger Soriano Primary Care Provider [phone] Reason for Referral * Physical Medicine (Routine) - Canceled Specialty Diagnoses / Procedures Referred By Shmuel angel Referred To Contact PHYSICAL THERAPY Diagnoses Numbness and tingling in left arm Adhesive capsulitis of left shoulder Procedures OFFICE/OUTPATIENT NEW LOW MDM 30-44 MINUTES OFFICE/OUTPT VISIT,NEW,LEVL IV OFFICE/OUTPT VISIT,NEW,LEVL V OFFICE/OUTPT VISIT,EST,LEVL III OFFICE/OUTPT VISIT,EST,LEVL IV OFFICE/OUTPT VISIT,[place] [address] [place] [address] Phone: tel: fax: [facility] [address] [place] [address] Phone: tel: fax: Referral ID Status Reason Start Date Expiration Date V isits Requested Visits Authorized [id number] Canceled Physical Therapy 12/22/2023 01/20/2025 1 1 Scheduling Instructions Patient is scheduled for a left shoulder manipulation on 01/08/2024. Will need PT daily x4 days post surgery then as directed by physical therapist to maintain ROM. * Imaging (Routine) - Authorized Specialty Diagnoses / Procedures Referred By Contac t Referred To Contact RADIOLOGY Diagnoses Numbness and tingling in left arm Chronic low back pain, unspecified back pain laterality, unspecified whether sciatica present Procedures [place] [address] [place] [address] Phone: tel: fax: Referral ID Status Reason Start Date Expiration Date V isits Requested Visits Authorized [id number] Authorized 12/22/2023 12/21/2024 1 1 Reason for Visit * Reason Comments Follow Up Left shoulder/neck p ain * Consultation (Urgent) - Authorized Specialty Diagnoses / Procedures Referred By Contact Referred To Contact ORTHOPAEDICS / ORTHOPAEDICS SURGERY Diagnoses Pain in left arm Procedures OFFICE/OUTPATIENT NEW LOW MDM 30-44 MINUTES OFFICE/OUTPT VISIT,NEW,LEVL IV OFFICE/OUTPT VISIT,NEW,LEVL V OFFICE/OUTPT VISIT,EST,LEVL III OFFICE/OUTPT VISIT,EST,LEVL IV OFFICE/OUTPT VISIT,EST,LEVL V Marv Young, GRACE Phone: tel: fax: [facility] [address] [employer] [address] [place] [address] Phone: tel: fax: Referral ID Status Reason Start Date Expiration Date Visits Requested Visits Authorized [id number] Authorized Specialty Services 07/05/2024 99 99 Encounter Details Date Type Department Care Team (Late st Contact Info) Description 12/22/2023 4:00 PM CDT Office Visit [facility] [address] [employer] [address] [place] [address] [place] [address] [place] [address] Follow Up (Left shoulder/neck pain) Social History Tobacco Use Types Packs/Day Years [...] Sign Reading Time Taken Comments Blood Pressure 128/82 12/22/2023 3:06 PM CDT Pulse 77 12/22/2023 3:06 PM CDT Temperature 36.8 ??C (98.2 ??F) 12/22/2023 3:06 PM CD T Respiratory Rate 19 12/22/2023 3:06 PM CDT Oxygen Saturation 97% 12/22/2023 3:06 PM CDT Inhaled Oxygen Concentration - - Weight 86.4 kg (190 lb 6.4 oz) 12/22/2023 3:06 P M CDT Height 157.5 cm (5' 2 ) 12/22/2023 3:06 PM CDT Body Mass Index 34.82 12/22/2023 3:06 PM CDT documented in this encounter Progress Notes * Alexis Collazo - 12/23/2023 8:14 PM CDTAssociated Problem(s): Frozen shoulder Recommendation at this time, we went over the risks and benefits as well as the alternatives. She'salready failed conservative therapy. We'll get her set up with manipulation under anesthesia with injection to the left shoulder. Get her set up for an MRI to the lumbar spine. * Ihsan Logan DO - 12/22/2023 4:00 PM CDT Images from the original note were not included. Office Visit Reason for Visit: Follow Up (Left shoulder/neck pain) History of Present Illness: Oumou Middleton is a 48-year-old female who presents for follow up on left shoulder/neck pain. Thepatient states she's having arm, back, and neck pain. She gets a shooting pain across her back to her shoulders then down. It goes from a shooting pain to hot. She's taking prednisone pills and it's helped, but when she doesn't take them, the pain comes back. She's thrown her back out three times. She's also had a spinal fusion at L4-5. X-rays were reviewed. She has failed formal therapy and homeexercises with no significant improvement. Review of Systems: Constitutional: Negative for chills and fever. HENT: Negative for sore throat and trouble swallowing. Eyes: Negative for pain and discharge. Respiratory: Negative for chest tightness and shortness of breath. Cardiovascular: Negative for chest pain and palpitations. Gastrointestinal: Negative for abdominal pain and nausea. Endocrine: Negative for cold intolerance and heat intolerance. Genitourinary: Negative for difficulty urinating and dysuria. Skin: Negative for rash and wound. Allergic/Immunologic: Negative for immunocompromised state. Neurological: Negative for light-headedness and numbness. Hematological: Negative for adenopathy. Does not bruise/bleed easily. Psychiatric/Behavioral: Negative for agitation and confusion. All other systems reviewed and are negative. Outpatient Medications Marked as Taking for the 12/22/23 encounter (Office Visit) with Ihsan Logan, Medication Sig Dispense Refill albuterol sulfate HFA 108 (90 Base) MCG/ACT inhaler Inhale 2 puffs into the lungs every 4 (four) hours as needed for Wheezing or Shortness of breath. 18 g 0 cyclobenzaprine (FLEXERIL) 10 MG tablet Take 1 tablet (10 mg total) by mouth as needed. FOR MUSCLE SPASMS 90 tablet 0 diazePAM (VALIUM) 5 MG tablet Take 1 tablet (5 mg total) by mouth every 12 (twelve) hours as neededfor Anxiety. 10 tablet 0 diazePAM (VALIUM) 5 MG tablet Take 2 tablets 30-60 minutes prior to scheduled MRI 2 tablet 0 DULoxetine (CYMBALTA) 30 MG capsule [...] a 24 hour period. 30 tablet 2 Review of patient's allergies indicates: Allergen Reactions Parada Anaphylaxis Iodine Rash, Hives and Other (see comment) Reaction: Hives, Iodinated Contrast Media Unknown Itching Lidocaine Hives Ranitidine Unknown Risperidone Other (see comment) Reaction: OTHER REACTION Past Medical History: Diagnosis Date ADHD Asthma ([facility]/HCC) COPD (chronic obstructive pulmonary disease) ([facility] HHS/HCC) History reviewed. No pertinent surgical history. Social History Tobacco Use Smoking status: Former Current packs/day: 0.00 Types: Cigarettes Quit date: 03/18/2023 Years since quittin.7 Passive exposure: Current Smokeless tobacco: Never Tobacco comments: na Vaping Use Vaping status: Never Used Substance Use Topics Alcohol use: Yes Drug use: Never Comment: na Family History Problem Relation Name Age of Onset Thyroid cancer Mother Dementia Mother Ovarian Cancer Mother Osteoarthritis Mother Endometriosis Sister Thyroid cancer Sister Other (thyroid cancer) Sister Dementia Maternal Grandmother Vital Signs: Filed Vitals: 12/22/23 1506 BP: 128/82 Pulse: 77 Resp: 19 Temp: 98.2 ??F (36.8 ??C) TempSrc: Core SpO2: 97% Weight: 86.4 kg (190 lb 6.4 oz) Height: 1.575 m (5' 2 ) Estimated BMI Today: Estimated body mass index is 34.82 kg/m?? as calculated from the following: Height as of this encounter: 1.575 m (5' 2 ). Weight as of this encounter: 86.4 kg (190 lb 6.4 oz). Physical Exam: Constitutional: she is oriented to person, place, and time. she appears well- developed and well-nourished. No distress. HENT: Head: Normocephalic and atraumatic. Eyes: Conjunctivae are normal. No scleral icterus. Neck: Neck supple. Cardiovascular: Regular rate and intact distal pulses. Pulmonary/Chest: Effort normal. No stridor. No respiratory distress. Neurological: she is alert and oriented to person, place, and time. Skin: Skin is warm and dry. Psychiatric: she has a normal mood and affect. Nursing note and vitals reviewed. Ortho Exam: Markedly diminished range of motion about the left shoulder, greater than 50%. Marked tenderness topalpation over the sternoclavicular joint, AC joint, biceps tendon. Compartments are soft and nontender with no evidence of DVT or infection. No open wounds or skin ulcerations. There is no clubbing,cyanosis, edema, or adenopathy although she feels like she may be a little bit more swollen on the left chest wall a little bit. Imaging: XR SHOULDER LT 3V on 05/29/23. No evidence of fracture, dislocation, or subluxation. MRI SHOULDER LT WO CON 06/18/23. Mild impingement, mild bursitis, mild effusion. No evidence of fracture, dislocation, or subluxation. No evidence of a rotator cuff tear. Assessment/Plan: Problem List Items Addressed This Visit Nervous Numbness and tingling in left arm Relevant Orders MRI LUMB SPINE WO CON Ambulatory referral to Physical Therapy History of spinal fusion Orthopedic/Musculoskeletal Frozen shoulder - Primary Recommendation at this time, we went over the risks and benefits as well as the alternatives. She'salready failed conservative therapy. We'll get her set up with manipulation under anesthesia with injection to the left shoulder. Get her set up for an MRI to the lumbar spine. Relevant Orders Ambulatory referral to Physical Therapy Low back pain Relevant Medications diazePAM (VALIUM) 5 MG tablet Other Relevant Orders MRI LUMB SPINE WO CON Bilateral lower extremity pain IHSAN LOGAN DO 12/22/2023 Alexis Hodgson scribe, am personally taking down the notes in the presence of IHSAN LOGAN DO. [12/24/23, 7:05 PM] IIhsan DO personally performed the services described in this documentation. All medical record entries and diagnoses made by the ireneibe were at my direction and in my presence. I have reviewed the chart and agree that the record reflects my personal performance and is accurate and complete. H REPAIR PERSON documented in this encounter Plan of Treatment Upcoming Encounters Date Type Department Care Team (Late st Contact Info) Description 02/12/2024 9:00 AM WATCH REPAIR PERSON Appointment [facility] [address] [place] [address] [place] [address] [place] [address] [place] [address] [place] [address] 02/12/2024 2:00 PM WATCH REPAIR PERSON Appointment [facility] [address] [place] [address] [place] [address] [place] [address] 02/16/2024 9:00 AM WATCH REPAIR PERSON Appointment [facility] [address] [place] [address] [place] [address] [place] [address] [place] [address] [place] [address] 02/19/2024 8:45 AM WATCH REPAIR PERSON Appointment [facility] [address] [place] [address] [place] [address] [place] [address] [place] [address] [place] [address] 02/19/2024 9:00 AM WATCH REPAIR PERSON Appointment [facility] [address] [place] [address] [place] [address] [place] [address] [place] [address] [place] [address] 02/23/2024 9:00 AM WATCH REPAIR PERSON Appointment [facility] [address] [place] [address] [place] [address] [place] [address] [place] [address] [place] [address] 02/24/2024 1:30 PM WATCH REPAIR PERSON Appointment [facility] [address] [place] [address] [place] [address] [place] [address] 02/26/2024 9:00 AM WATCH REPAIR PERSON Appointment [facility] [address] [place] [address] [place] [address] [place] [address] [place] [address] [place] [address] 02/26/2024 9:15 AM WATCH REPAIR PERSON Appointment [facility] [address] [place] [address] [place] [address] [place] [address] [place] [address] [place] [address] 03/01/2024 9:00 AM WATCH REPAIR PERSON Appointment [facility] [address] [place] [address] [place] [address] [place] [address] [place] [address] [place] [address] Lorene Branch, PENSION FUND MANAGER 03/02/2024 12:27 PM WATCH REPAIR PERSON Hospital Encounter [facility] [address] [place] [address] [place] [address] [place] [address] 03/02/2024 12:27 PM WATCH REPAIR PERSON - 03/02/2024 1:07 PM WATCH REPAIR PERSON Surgery [facility] [address] [place] [address] [place] [address] [place] [address] MANIPULATION SHOULDER 03/05/2024 9:00 AM WATCH REPAIR PERSON Appointment [facility] [address] [place] [address] [place] [address] [place] [address] Lorene Branch, PENSION FUND MANAGER 03/08/2024 9:00 AM WATCH REPAIR PERSON Appointment [facility] [address] [place] [address] [place] [address] [place] [address] Lorene Branch, PENSION FUND MANAGER 03/11/2024 9:15 AM WATCH REPAIR PERSON Appointment [facility] [address] [place] [address] [place] [address] [place] [address] Lorene Branch, PENSION FUND MANAGER 03/15/2024 9:00 AM WATCH REPAIR PERSON Appointment [facility] [address] [place] [address] [place] [address] [place] [address] Lorene Branch, PENSION FUND MANAGER 03/18/2024 9:15 AM WATCH REPAIR PERSON Appointment [facility] [address] [place] [address] [place] [address] [place] [address] Lorene Branch, PENSION FUND MANAGER 03/22/2024 9:00 AM WATCH REPAIR PERSON Appointment [facility] [address] [place] [address] [place] [address] [place] [address] Lorene Branch, PENSION FUND MANAGER 03/25/2024 9:15 AM WATCH REPAIR PERSON Appointment [facility] [address] [place] [address] [place] [address] [place] [address] Lorene Branch, PENSION FUND MANAGER 04/21/2024 11:20 AM WATCH REPAIR PERSON Office Visit [facility] Family [facility] Internal [facility] [address] [place] [phone] [place] [address] [place] [address] Scheduled Orders Name Type Priority Associated Diagnoses Orde r Schedule MRI LUMB SPINE WO CON MRI Routine Numbness and tingling in left arm Chronic low back pain, unspecified back pain laterality, unspecified whether sciatica present Expected: 12/22/2023, Expires: 12/21/2024 Scheduled Procedures Name Priority Associated Diagnoses Date/Ti me MANIPULATION SHOULDER Adhesive capsulitis of left shoulder 03/02/2024 12:27 PM WATCH REPAIR PERSON INJECTION JOINT Adhesive capsulitis of left shoulder 03/02/2024 12:27 PM WATCH REPAIR PERSON Scheduled Referrals Name Type Priority Associated Diagnoses Orde r Schedule Ambulatory referral to Physical Therapy Referral Routine Numbness and tingling in left arm Adhesive capsulitis of left shoulder Ordered: 12/22/2023 documented as of this encounter Visit Diagnoses Diagnosis Adhesive capsulitis of left shoulder- Primary Adhesive capsulitis of shoulder History of spinal fusion Arthrodesis status Chronic low back pain, unspecified back pain laterality, unspecified whether sciatica present Bilateral lower extremity pain Pain in limb Numbness and tingling in left arm Disturbance of skin sensation Adhesive capsulitis of left shoulder Adhesive capsulitis of shoulder documented in this encounter Additional Health Concerns Infection Onset Date Last Indicated Resolved Time COVID-19 Rule Out 12/29/2023 12/29/2023 12/29/2023 12:59 PM WATCH REPAIR PERSON Assessment Noted Time PHQ-9 Depression Total Score: 024 3:24 PM CDT documented as of this encounter Care Teams Side Hemmer Relationship Specialty [place] [address] [place] [address] PCP - General Physician Support Coordinator Medical 09/16/23 documented as of this encounter
--- OUTSIDE RECORDS SUMMARY | 2024-02-12 03:29 | XMS_ITS | Encounter Summary ---
Author Organization [facility] Address [facility]. [place], [place] [address] [place] [address] Care Team Providers Care Electric Spot Welder Name Role Phone Holger Soriano Primary Care Provider [phone] Encounter Details Date Type Department Care Team (Latest Contact Info) Description 12/22/2023 Travel Social History Tobacco Use Types Packs/Day [...] st Contact Info) Description 02/12/2024 9:00 AM WEARING APPAREL ASSEMBLER Appointment [facility] [address] [place], [place] [id number] [place] [address] [place], [place] [id number] [place] [address] [place], [place] [id number] 02/12/2024 2:00 PM WEARING APPAREL ASSEMBLER [facility]ointment [facility] [address] [place] [address] [place] [address] [place] [address] 02/16/2024 9:00 AM WEARING APPAREL ASSEMBLER Appointment [facility] [address] [place] [address] [place] [address] [place] [address] [place] [address] [place] [address] 02/19/2024 8:45 AM WEARING APPAREL ASSEMBLER Appointment [facility] [address] [place] [address] [place] [address] [place] [address] [place] [address] [place] [address] 02/19/2024 9:00 AM WEARING APPAREL ASSEMBLER Appointment [facility] [address] [place] [address] [place] [address] [place] [address] [place] [address] [place] [address] 02/23/2024 9:00 AM WEARING APPAREL ASSEMBLER Appointment [facility] [address] [place] [address] [place] [address] [place] [address] [place] [address] [place] [address] 02/24/2024 1:30 PM WEARING APPAREL ASSEMBLER [facility]ointment [facility] [address] [place] [address] [place] [address] [place] [address] 02/26/2024 9:00 AM WEARING APPAREL ASSEMBLER Appointment [facility] [address] [place] [address] [place] [address] [place] [address] [place] [address] [place] [address] 02/26/2024 9:15 AM WEARING APPAREL ASSEMBLER Appointment [facility] [address] [place] [address] [place] [address] [place] [address] [place] [address] [place] [address] 03/01/2024 9:00 AM WEARING APPAREL ASSEMBLER Appointment [facility] [address] [place] [address] [place] [address] [place] [address] [place] [address] [place] [address] Lorene Branch, PLATE MILL HAND 03/02/2024 12:27 PM WEARING APPAREL ASSEMBLER Hospital Encounter [facility] [address] [place] [address] [place] [address] [place] [address] 03/02/2024 12:27 PM WEARING APPAREL ASSEMBLER - 03/02/2024 1:07 PM WEARING APPAREL ASSEMBLER Surgery [address] [address] [place] [address] [place] [address] MANIPULATION SHOULDER 03/05/2024 9:00 AM WEARING APPAREL ASSEMBLER Appointment [facility] [address] [place] [address] [place] [address] [place] [address] Lorene Branch, PLATE MILL HAND 03/08/2024 9:00 AM WEARING APPAREL ASSEMBLER Appointment [facility] [address] [place] [address] [place] [address] [place] [address] Lorene Branch, PLATE MILL HAND 03/11/2024 9:15 AM WEARING APPAREL ASSEMBLER Appointment [facility] [address] [place] [address] [place] [address] [place] [address] Lorene Branch, PLATE MILL HAND 03/15/2024 9:00 AM WEARING APPAREL ASSEMBLER Appointment [facility] [address] [place] [address] [place] [address] [place] [address] Lorene Branch, PLATE MILL HAND 03/18/2024 9:15 AM WEARING APPAREL ASSEMBLER Appointment [facility] [address] [place] [address] [place] [address] [place] [address] Lorene Branch, PLATE MILL HAND 03/22/2024 9:00 AM WEARING APPAREL ASSEMBLER Appointment [facility] [address] [place] [address] [place] [address] [place] [address] Lorene Branch, PLATE MILL HAND 03/25/2024 9:15 AM WEARING APPAREL ASSEMBLER Appointment [facility] [address] [place] [address] [place] [address] [place] [address] Loreen Branch, PLATE MILL HAND 04/21/2024 11:20 AM WEARING APPAREL ASSEMBLER Office Visit [facility] Family & Internal Medicine - [address] [phone] [place] [address] [place] [address] Scheduled Procedures Name Priority Associated Diagnoses Date/Ti me MANIPULATION SHOULDER Adhesive capsulitis of left shoulder 03/02/2024 12:27 PM WEARING APPAREL ASSEMBLER INJECTION JOINT Adhesive capsulitis of left shoulder 03/02/2024 12:27 PM WEARING APPAREL ASSEMBLER documented as of this encounter Visit Diagnoses Not on filedocumented in this encounter Additional Health Concerns Assessment Noted Time PHQ-9 Depression Total Score: 024 3:24 PM CDT documented as of this encounter Care Teams Electric Spot Welder Relationship Specialty [place] [address] [place] [address] PCP - General Physician Snow Ranger Medical 09/16/23 documented as of this encounter
--- OUTSIDE RECORDS SUMMARY | 2024-02-12 03:29 | XMS_ITS | Encounter Summary ---
Author Organization [facility] Address [facility] [place] [address] [place] [address] Care Team Providers Care Tank Filler Name Role Phone Holger Soriano Primary Care Provider [phone] Encounter Details Date Type Department Care Team (Latest Contact Info) Description 12/10/2023 Travel Social History Tobacco Use Types Packs/Day [...] Contact Info) Description 02/12/2024 9:00 AM HEEL SEAT FITTER Appointment [facility] Out[facility]hab [address] [place] [address] [place] [address] [place] [address] [place] [address] [place], [place] [address] 02/12/2024 2:00 PM HEEL SEAT FITTER Appointment [facility] MRI [address] [place] [address] [place] [address] [place] [address] 02/16/2024 9:00 AM HEEL SEAT FITTER Appointment [facility] Outpatient Rehab [address] [place] [address] [place] [address] [place] [address] [place] [address] [place] [address] 02/19/2024 8:45 AM HEEL SEAT FITTER Appointment [facility] Outpatient Rehab [address] [place] [address] [place] [address] [place] [address] [place] [address] [place] [address] 02/19/2024 9:00 AM HEEL SEAT FITTER Appointment [facility] Outpatient Rehab [address] [place] [address] [place] [address] [place] [address] [place] [address] [place] [address] 02/23/2024 9:00 AM HEEL SEAT FITTER Appointment [facility] Outpatient Rehab [address] [place] [address] [place] [address] [place] [address] [place] [address] [place] [address] 02/24/2024 1:30 PM HEEL SEAT FITTER Appointment [facility] [address] [place] [address] [place] [address] [place] [address] 02/26/2024 9:00 AM HEEL SEAT FITTER Appointment [facility] Outpatient Rehab [address] [place] [address] [place] [address] [place] [address] [place] [address] [place] [address] 02/26/2024 9:15 AM HEEL SEAT FITTER Appointment [facility] Outpatient Rehab [address] [place] [address] [place] [address] [place] [address] [place] [address] [place] [address] 03/01/2024 9:00 AM HEEL SEAT FITTER Appointment [facility] Out[facility] Rehab [address] [place] [address] [place] [address] [place] [address] [place] [address] [place] [address] Lorene Branch, LOCAL COMPANY TRUCK DRIVER 03/02/2024 12:27 PM HEEL SEAT FITTER Hospital Encounter [facility] [id number] [place] [address] [place] [address] [place] [address] 03/02/2024 12:27 PM HEEL SEAT FITTER - 03/02/2024 1:07 PM HEEL SEAT FITTER Surgery [address] [address] [place] [address] [place] [address] MANIPULATION SHOULDER 03/05/2024 9:00 AM HEEL SEAT FITTER Appointment [facility] Out[facility]hab [address] [place] [address] [place] [address] [place] [address] Lorene Branch, LOCAL COMPANY TRUCK DRIVER 03/08/2024 9:00 AM HEEL SEAT FITTER Appointment [facility] Out[facility] [address] [place] [address] [place] [address] [place] [address] Lorene Branch, LOCAL COMPANY TRUCK DRIVER 03/11/2024 9:15 AM HEEL SEAT FITTER Appointment [facility] Out[facility]hab [address] [place] [address] [place] [address] [place] [address] Lorene Branch, LOCAL COMPANY TRUCK DRIVER 03/15/2024 9:00 AM HEEL SEAT FITTER Appointment [facility] [address] [place] [address] [place] [address] [place] [address] Lorene Branch, [employer]AL COMPANY TRUCK DRIVER 03/18/2024 9:15 AM HEEL SEAT FITTER Appointment [facility] [address] [place] [address] [place] [address] [place] [address] Lorene Branch, [employer]AL COMPANY TRUCK DRIVER 03/22/2024 9:00 AM HEEL SEAT FITTER Appointment [facility] [address] [place] [address] [place] [address] [place] [address] Lorene Branch, LOCAL COMPANY TRUCK DRIVER 03/25/2024 9:15 AM HEEL SEAT FITTER Appointment [facility] [address] [place] [address] [place] [address] [place] [address] Lorene Branch, [employer] COMPANY TRUCK DRIVER 04/21/2024 11:20 AM HEEL SEAT FITTER Office Visit [facility] Family & Internal Medicine - [address] [address] [place] [address] [place] [address] Scheduled Procedures Name Priority Associated Diagnoses Date/Ti me MANIPULATION SHOULDER Adhesive capsulitis of left shoulder 03/02/2024 12:27 PM HEEL SEAT FITTER INJECTION JOINT Adhesive capsulitis of left shoulder 03/02/2024 12:27 PM HEEL SEAT FITTER documented as of this encounter Visit Diagnoses Not on filedocumented in this encounter Additional Health Concerns Assessment Noted Time PHQ-9 Depression Total Score: 024 3:24 PM CDT documented as of this encounter Care Teams Tank Filler Relationship Specialty [place] [address] [place] [address] PCP - General Physician Morgue Technician Medical 09/16/23 documented as of this encounter
--- OUTSIDE RECORDS SUMMARY | 2024-02-12 03:29 | XMS_ITS | Encounter Summary ---
Author Organization [facility] Address [facility] [place] [address] [place] [address] Care Team Providers Care Senior Network Security Architect Name Role Phone Holger Soriano Primary Care Provider [phone] Encounter Details Date Type Department Care Team (Late st Contact Info) Description 12/24/2023 Prep for Procedure [facility] Orthopedic Surgery [facility] [address] [facility] [address] [place] [address] [place] [address] [place] [address] Social History Tobacco Use Types [...] st Contact Info) Description 02/12/2024 9:00 AM BAKERY HELPER Appointment [facility] Outpatient Rehab [address] [place] [address] [place] [address] [place] [address] [place] [address] [place] [address] 02/12/2024 2:00 PM BAKERY HELPER Appointment [facility] MRI [address] [place] [address] [place] [address] [place] [address] 02/16/2024 9:00 AM BAKERY HELPER Appointment [facility] Outpatient Rehab [address] [place] [address] [place] [address] [place] [address] [place] [address] [place] [address] 02/19/2024 8:45 AM BAKERY HELPER Appointment [facility]patient [facility]hab [address] [place] [address] [place] [address] [place] [address] [place] [address] [place] [address] 02/19/2024 9:00 AM BAKERY HELPER Appointment [facility]patient [facility]hab [address] [place] [address] [place] [address] [place] [address] [place] [address] [place] [address] 02/23/2024 9:00 AM BAKERY HELPER Appointment [facility]patient [facility]hab [address] [place] [address] [place] [address] [place] [address] [place] [address] [place] [address] 02/24/2024 1:30 PM BAKERY HELPER Appointment [facility] MRI [address] [place] [address] [place] [address] [place] [address] 02/26/2024 9:00 AM BAKERY HELPER Appointment [facility] Outpatient [facility]hab [address] [place] [address] [place] [address] [place] [address] [place] [address] [place] [address] 02/26/2024 9:15 AM BAKERY HELPER Appointment [facility]hab [address] [place] [address] [place] [address] [place] [address] [place] [address] [place] [address] 03/01/2024 9:00 AM BAKERY HELPER Appointment [facility]hab [address] [place] [address] [place] [address] [place] [address] [place] [address] [place] [address] Lorene Branch, OIL PIT ATTENDANT 03/02/2024 12:27 PM BAKERY HELPER Hospital Encounter [facility] Surgery [address] [place] [address] [place] [address] [place] [address] 03/02/2024 12:27 PM BAKERY HELPER - 03/02/2024 1:07 PM BAKERY HELPER Surgery [facility] Surgery [address] [place] [address] [place] [address] [place] [address] MANIPULATION SHOULDER 03/05/2024 9:00 AM BAKERY HELPER Appointment [facility]hab [address] [place] [address] [place] [address] [place] [address] Lorene Branch, OIL PIT ATTENDANT 03/08/2024 9:00 AM BAKERY HELPER Appointment [facility]hab [address] [place] [address] [place] [address] [place] [address] Lorene Branch, OIL PIT ATTENDANT 03/11/2024 9:15 AM BAKERY HELPER Appointment [facility] [address] [place] [address] [place] [address] [place] [address] Lorene Branch, OIL PIT ATTENDANT 03/15/2024 9:00 AM BAKERY HELPER Appointment [facility] [address] [place] [address] [place] [address] [place] [address] Lorene Branch, OIL PIT ATTENDANT 03/18/2024 9:15 AM BAKERY HELPER Appointment [facility] [address] [place] [address] [place] [address] [place] [address] Lorene Branch, OIL PIT ATTENDANT 03/22/2024 9:00 AM BAKERY HELPER Appointment [facility] [address] [place] [address] [place] [address] [place] [address] Lorene Branch, OIL PIT ATTENDANT 03/25/2024 9:15 AM BAKERY HELPER Appointment [facility] [address] [place] [address] [place] [address] [place] [address] Jose CarlosLorene CAROLA Kennedy 04/21/2024 11:20 AM BAKERY HELPER Office Visit [facility] Family & Internal Medicine [facility] [address] [place] [address] Holger Soriano, TYLER [address] [place] [address] Scheduled Procedures Name Priority Associated Diagnoses Date/Ti me MANIPULATION SHOULDER Adhesive capsulitis of left shoulder 03/02/2024 12:27 PM BAKERY HELPER INJECTION JOINT Adhesive capsulitis of left shoulder 03/02/2024 12:27 PM BAKERY HELPER documented as of this encounter Results * ECG 12 lead (12/29/2023 1:41 PM BAKERY HELPER) 12/29/2023 1:41 PM BAKERY HELPER Narrative [facility] RAD - 12/30/2023 8:20 AM BAKERY HELPER [facility] Test Date: ?2023-12-29 Pat Name: ? MARY LOU DOUBET ? Department: ?? 85 ? Room: ? Gender: ? Female ? General Inspector: ?? : ?1975 ? Requested By: IHSAN LOGAN Order Number: [id number] ? Reading MD: ?? Blue Paul ? Measurements Intervals ?[place] ? Rate: ? 80 ? P: ?49 NE: ? 200 ?QRS: ?25 QRSD: ? 83 ? T: ?80 QT: ? 373 ? QTc: ?432 ? Interpretive Statements SINUS RHYTHM LOW QRS VOLTAGE IN PRECORDIAL LEADS ??[QRS DEFLECTION < 1.0 mV IN CHEST LEADS] No previous ECG available for comparison RY HELPER Procedure Note Blue Paul MD - 12/30/2023 [facility] Date: 2023-12-29 Pat Name: [facility] Department: Room: Gender: Female General Inspector: : 1975 Requested By: IHSAN LOGNA Order Number: [id number] Reading MD: Blue Paul Measurements Intervals [place] Rate: 80 P: 49 NE: 200 QRS: 25 QRSD: 83 T: 80 QT: 373 QTc: 432 Interpretive Statements SINUS RHYTHM LOW QRS VOLTAGE IN PRECORDIAL LEADS [QRS DEFLECTION < 1.0 mV IN CHESTLEADS] No previous ECG available for comparison RY HELPER us Ihsan Logan DO ECG ORDERABLES Final Result [facility]) [facility] documented in this encounter Visit Diagnoses Diagnosis Adhesive capsulitis of left shoulder- Primary Adhesive capsulitis of shoulder ART positive Other and unspecified nonspecific immunological findings Type 2 diabetes mellitus without complication, without long-term current use of insulin ([facility] HHS/HCC) Adhesive capsulitis of left shoulder Adhesive capsulitis of shoulder ART positive Other and unspecified nonspecific immunological findings Type 2 diabetes mellitus without complication, without long-term current use of insulin ([facility] HHS/HCC) Adhesive capsulitis of left shoulder Adhesive capsulitis of shoulder documented in this encounter Additional Health Concerns Assessment Noted Time PHQ-9 Depression Total Score: 24 024 3:24 PM CDT documented as of this encounter Care Teams Senior Network Security Architect Relationship Specialty [place] [address] [place] [address] PCP - General Physician Excavator Operator Medical 09/16/23 documented as of this encounter
--- OUTSIDE RECORDS SUMMARY | 2024-02-12 03:29 | XMS_ITS | Encounter Summary ---
Author Organization [facility] Address [facility]6 [facility] [place], [place] [address] [place] [address] Care Team Providers Care Database Tester Name Role Phone Holger Soriano Primary Care Provider [phone] Reason for Visit * Reason Comments Shoulder Pain Back Pain * Physical Medicine (Urgent) - Authorized Specialty Diagnoses / Procedures Referred By Shmuel t Referred To Contact PHYSICAL THERAPY Diagnoses Left shoulder pain Low back pain Procedures OFFICE/OUTPATIENT NEW LOW MDM 30-44 MINUTES OFFICE/OUTPT VISIT,NEW,LEVL IV OFFICE/OUTPT VISIT,NEW,LEVL V OFFICE/OUTPT VISIT,EST,LEVL III OFFICE/OUTPT VISIT,EST,LEVL IV OFFICE/OUTPT VISIT,EST[place] [address] [place] [address] Phone: tel: fax: [facility] [address] [place] [address] Phone: tel: fax: Referral ID Status Reason Start Date Expiration Date Visits Requested Visits Authorized [id number] Authorized Physical Therapy 10/13/2023 11/11/2024 99 99 Encounter Details Date Type Department Care Team (Latest Contact Info) Description 11/27/2023 3:30 PM CDT - 11/27/2023 11:59 PM CDT Hospital Encounter [facility] Outpatient [facility]hab [address] [place] [address] [place] [address] [place] [address] [place] [address] [place] [address] Shoulder Pain; Back Pain Discharge Disposition: Home [...] complication, with long-term current use of insulin (CMS/HCC HHS/HCC) Take 1 tablet (4 mg total) by mouth every 8 (eight) hours as needed for Nausea. 20 tablet 11/19/2023 4 progesterone (PROMETRIUM) 100 MG capsuleIndication s:Menopausal and female climacteric states take 1 capsule by mouth every day 90 capsule 1 06/10/2023 4 documented as of this encounter Progress Notes * Padmaja Marie, PT - 11/27/2023 3:30 PM CDT Physical Therapy Visit Note: Patient Name: Oumou Middleton Diagnosis: Left shoulder pain (primary encounter diagnosis) SUBJECTIVE Therapy Visit Start Time: 1540 Stop Time: 1628 Time Calculation (min): 48 min Treatment Day: 8 for SH/1 for LB (pt requested emph on SH today) Total Approved Visits: 16 per POC for both SH and back Therapy Plan of Care: 2x/week for 8 weeks Current Therapy Orders: eval and tx Diagnosis: L shoulder pain, low back pain Referring Provider: Holger Suarez MD Visit: MRI 12/10/23 Date of Injury: Shoulder- Fell Feb 2023 but pain started in Nov 2022. Low back - exacerbated early Oct. 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[employer], [employer] Job Duties: Has help at work to lift things currently Subjective Note: Has been using her L arm more doing some cleaning, so this pain is intense today. Was able tomove it better yesterday but today can hardly move it. Low back still hurting. Started getting dizzy coming to PT due to low blood sugar, so she is eating a candy bar. Has been fighting a migraine for the last 2 days. Started up the day after PT, not sure if it was from PT session or not. 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 PROM: gentle, slow PROM all planes (with MHP held down with sheet) x 15 min - supine LEs on bolster(pillow under LUE), also performed gentle elbow flex/ext x 10 in supinated position Exercise: Pulleys scaption, butterfly x 2 min each (longer holds) (consider MHP with this next) Exercise: Table slides (longer holds) flexion, scaption x [address] (chair laterally at table) Exercise: Supine cane flex x 10 - next Exercise: supine median nerve glides 2 x 10 gentle (instructed for HEP also 11/26) Exercise: cervical retraction + extension progression as appropriate Exercise: cervical distraction x 5, cervical ROT PROM x [address] Exercise: SO release x 3 Exercise: next- attempt LTR, DKTC, lumbar distraction on SB as tolerated Exercise: next- may trial prone over pillows/prone lying as tolerated, or lumbar ext at wall Modalities Non-Timed Electrical Stimulation Unattended - 71979/G0283: HELD TODAY- IFC to low back x 15 min (supine, bolster under knees) (performed cervical/SH stretches during) Hot Pack - 33153: MHP to L shoulder and low back (during SH PROM today - no back tx today 11/26) Home Exercise Program Current Home Exercise Program: gentle median nerve glides in supine as judy Education Was Education Provided: Yes Topic: ther ex, HEP, PT POC Recipient: Patient Method: Demonstration, Verbal, Return Demonstration Response: Verbalized understanding, Asked questions, Demonstrates adequately ASSESSMENT Assessment Note: Continued emph on SH tx today, as pt expresses concern for inc pain with decreased ROM today compared to how she felt yesterday. Significant pain and tightness in all planes. Able to achieve near full elbow ext in supination but inc pain in pronation. Pain occuring both in the elbow and SH today. Also very tight and guarded with cervical ROM again today. Pt becomes tearful with transfers/bed mobility. Also provided towel over eyes due to light sensitivity with migraine today. Continue on Functional Deficit of: L shoulder pain with dressing, bathing, work, sleep PLAN Plan Next Visit Plan: Continue ROM/pain relief techniques as able. Introduce low back interventions as able. Total Time Total Time in Minutes: 48 Timed Code Treatment Minutes : 48 documented in this encounter Plan of Treatment Upcoming Encounters Date Type Department Care Team (Late st Contact Info) Description 02/12/2024 9:00 AM EMBOSSER OPERATOR Appointment [facility] [address] [place] [id number] [place] [address] [place], [place] [address] [place] [address] [place] [address] 02/12/2024 2:00 PM EMBOSSER OPERATOR Appointment [facility] MRI [address] [place] [address] [place] [address] [place] [address] 02/16/2024 9:00 AM EMBOSSER OPERATOR Appointment [facility] [address] [place] [address] [place] [address] [place] [address] [place] [address] [place] [address] 02/19/2024 8:45 AM EMBOSSER OPERATOR Appointment [facility]hab [address] [place] [address] [place] [address] [place] [address] [place] [address] [place] [address] 02/19/2024 9:00 AM EMBOSSER OPERATOR Appointment [facility]hab [address] [place] [address] [place] [address] [place] [address] [place] [address] [place] [address] 02/23/2024 9:00 AM EMBOSSER OPERATOR Appointment [facility] [address] [place] [address] [place] [address] [place] [address] [place] [address] [place] [address] 02/24/2024 1:30 PM EMBOSSER OPERATOR Appointment [facility] [address] [place] [address] [place] [address] [place] [address] 02/26/2024 9:00 AM EMBOSSER OPERATOR Appointment [facility]hab [address] [place] [address] [place] [address] [place] [address] [place] [address] [place] [address] 02/26/2024 9:15 AM EMBOSSER OPERATOR Appointment [facility] [address] [place] [address] [place] [address] [place] [address] [place] [address] [place] [address] 03/01/2024 9:00 AM EMBOSSER OPERATOR Appointment [facility] [address] [place] [address] [place] [address] [place] [address] [place] [address] [place] [address] Lorene Branch, SURGICAL SERVICES TECH 03/02/2024 12:27 PM EMBOSSER OPERATOR Hospital Encounter [address] [address] [place] [address] [place] [address] 03/02/2024 12:27 PM EMBOSSER OPERATOR - 03/02/2024 1:07 PM EMBOSSER OPERATOR Surgery [address] [address] [place] [address] [place] [address] MANIPULATION SHOULDER 03/05/2024 9:00 AM EMBOSSER OPERATOR Appointment [facility] [address] [place] [address] [place] [address] [place] [address] Lorene Branch, SURGICAL SERVICES TECH 03/08/2024 9:00 AM EMBOSSER OPERATOR Appointment [facility] [address] [place] [address] [place] [address] [place] [address] Lorene Branch, SURGICAL SERVICES TECH 03/11/2024 9:15 AM EMBOSSER OPERATOR Appointment [facility] [address] [place] [address] [place] [address] [place] [address] Lorene Branch, SURGICAL SERVICES TECH 03/15/2024 9:00 AM EMBOSSER OPERATOR Appointment [facility] [address] [place] [address] [place] [address] [place] [address] Lorene Branch, SURGICAL SERVICES TECH 03/18/2024 9:15 AM EMBOSSER OPERATOR Appointment [facility] [address] [place] [address] [place] [address] [place] [address] Lorene Branch, SURGICAL SERVICES TECH 03/22/2024 9:00 AM EMBOSSER OPERATOR Appointment [facility] [address] [place] [address] [place] [address] [place] [address] Lorene Branch, SURGICAL SERVICES TECH 03/25/2024 9:15 AM EMBOSSER OPERATOR Appointment [facility] [address] [place] [address] [place] [address] [place] [address] Lorene Branch, SURGICAL SERVICES TECH 04/21/2024 11:20 AM EMBOSSER OPERATOR Office Visit [facility] Family & Internal Medicine - [address] [phone] [place] [address] [place] [address] Scheduled Procedures Name Priority Associated Diagnoses Date/Ti me MANIPULATION SHOULDER Adhesive capsulitis of left shoulder 03/02/2024 12:27 PM EMBOSSER OPERATOR INJECTION JOINT Adhesive capsulitis of left shoulder 03/02/2024 12:27 PM EMBOSSER OPERATOR documented as of this encounter Visit Diagnoses Diagnosis Left shoulder pain- Primary Pain in joint, shoulder region Adhesive capsulitis of left shoulder Adhesive capsulitis of shoulder documented in this encounter Additional Health Concerns Assessment Noted Time PHQ-9 Depression Total Score: 024 3:24 PM CDT documented as of this encounter Care Teams Database Tester Relationship Specialty [place] [address] [place] [address] PCP - General Physician Premium Note Interest Calculator Clerk Medical 09/16/23 documented as of this encounter
--- OUTSIDE RECORDS SUMMARY | 2024-02-12 03:29 | XMS_ITS | Encounter Summary ---
Author Organization [facility] Address [facility]. [place], [place] [id number] [place] [address] Care Team Providers Care Fourth Grade Teacher Name Role Phone Holger Soriano Primary Care Provider [phone] Encounter Details Date Type Department Care Team (Latest Contact Info) Description 12/25/2023 Travel Social History Tobacco Use Types Packs/Day [...] st Contact Info) Description 02/12/2024 9:00 AM BATCH AND FURNACE OPERATOR Appointment [facility] [address] [place], [place] [id number] [place] [address] [place], [place] [id number] [place] [address] [place] [address] 02/12/2024 2:00 PM BATCH AND FURNACE OPERATOR Appointment [facility] [address] [place] [address] [place] [address] [place] [address] 02/16/2024 9:00 AM BATCH AND FURNACE OPERATOR Appointment [facility] [address] [place] [address] [place] [address] [place] [address] [place] [address] [place] [address] 02/19/2024 8:45 AM BATCH AND FURNACE OPERATOR Appointment [facility] [address] [place] [address] [place] [address] [place] [address] [place] [address] [place] [address] 02/19/2024 9:00 AM BATCH AND FURNACE OPERATOR Appointment [facility] [address] [place] [address] [place] [address] [place] [address] [place] [address] [place] [address] 02/23/2024 9:00 AM BATCH AND FURNACE OPERATOR Appointment [facility] [address] [place] [address] [place] [address] [place] [address] [place] [address] [place] [address] 02/24/2024 1:30 PM BATCH AND FURNACE OPERATOR Appointment [facility] [address] [place] [address] [place] [address] [place] [address] 02/26/2024 9:00 AM BATCH AND FURNACE OPERATOR Appointment [facility] [address] [place] [address] [place] [address] [place] [address] [place] [address] [place] [address] 02/26/2024 9:15 AM BATCH AND FURNACE OPERATOR Appointment [facility] [address] [place] [address] [place] [address] [place] [address] [place] [address] [place] [address] 03/01/2024 9:00 AM BATCH AND FURNACE OPERATOR Appointment [facility] [address] [place] [address] [place] [address] [place] [address] [place] [address] [place] [address] Lorene Branch, STARS COORDINATOR 03/02/2024 12:27 PM BATCH AND FURNACE OPERATOR Hospital Encounter [facility] [address] [place] [address] [place] [address] [place] [address] 03/02/2024 12:27 PM BATCH AND FURNACE OPERATOR - 03/02/2024 1:07 PM BATCH AND FURNACE OPERATOR Surgery [facility] [address] [place] [address] [place] [address] [place] [address] MANIPULATION SHOULDER 03/05/2024 9:00 AM BATCH AND FURNACE OPERATOR Appointment [facility] [address] [place] [address] [place] [address] [place] [address] Lorene Branch, STARS COORDINATOR 03/08/2024 9:00 AM BATCH AND FURNACE OPERATOR Appointment [facility] [address] [place] [address] [place] [address] [place] [address] Lorene Branch, STARS COORDINATOR 03/11/2024 9:15 AM BATCH AND FURNACE OPERATOR Appointment [facility] [address] [place] [address] [place] [address] [place] [address] Lorene Branch, STARS COORDINATOR 03/15/2024 9:00 AM BATCH AND FURNACE OPERATOR Appointment [facility] [address] [place] [address] [place] [address] [place] [address] Lorene Branch, STARS COORDINATOR 03/18/2024 9:15 AM BATCH AND FURNACE OPERATOR Appointment [facility] [address] [place] [address] [place] [address] [place] [address] Lorene Branch, STARS COORDINATOR 03/22/2024 9:00 AM BATCH AND FURNACE OPERATOR Appointment [facility] [address] [place] [address] [place] [address] [place] [address] Lorene Branch, STARS COORDINATOR 03/25/2024 9:15 AM BATCH AND FURNACE OPERATOR Appointment [facility] [address] [place] [address] [place] [address] [place] [address] Lorene Branch, STARS COORDINATOR 04/21/2024 11:20 AM BATCH AND FURNACE OPERATOR Office Visit [facility] Family & Internal Medicine - [address] [address] [place] [address] [place] [address] Scheduled Procedures Name Priority Associated Diagnoses Date/Ti me MANIPULATION SHOULDER Adhesive capsulitis of left shoulder 03/02/2024 12:27 PM BATCH AND FURNACE OPERATOR INJECTION JOINT Adhesive capsulitis of left shoulder 03/02/2024 12:27 PM BATCH AND FURNACE OPERATOR documented as of this encounter Visit Diagnoses Not on filedocumented in this encounter Additional Health Concerns Assessment Noted Time PHQ-9 Depression Total Score: 024 3:24 PM CDT documented as of this encounter Care Teams Fourth Grade Teacher Relationship Specialty [place] [address] [place] [address] PCP - General Physician [facility] 09/16/23 documented as of this encounter
--- OUTSIDE RECORDS SUMMARY | 2024-02-12 03:29 | XMS_ITS | Encounter Summary ---
Author Organization [facility] Address [facility]6 [facility]. [place], [place] [address] [place] [address] Care Team Providers Care Director Of Purchasing Name Role Phone Holger Soriano Primary Care Provider [phone] Reason for Visit * Reason Comments Shoulder Pain * Physical Medicine (Urgent) - Authorized Specialty Diagnoses / Procedures Referred By Contac t Referred To Contact PHYSICAL THERAPY Diagnoses Left shoulder pain Low back pain Procedures OFFICE/OUTPATIENT NEW LOW MDM 30-44 MINUTES OFFICE/OUTPT VISIT,NEW,LEVL IV OFFICE/OUTPT VISIT,NEW,LEVL V OFFICE/OUTPT VISIT,EST,LEVL III OFFICE/OUTPT VISIT,EST,LEVL IV OFFICE/OUTPT VISIT,EST[place] [address] [place] [address] Phone: tel: fax: [facility] [address] [place] [address] Phone: tel: fax: Referral ID Status Reason Start Date Expiration Date Visits Requested Visits Authorized [id number] Authorized Physical Therapy 10/13/2023 11/11/2024 99 99 Encounter Details Date Type Department Care Team (Latest Contact Info) Description 12/22/2023 9:54 AM CDT - 12/22/2023 11:59 PM CDT Hospital Encounter [facility] [address] [place], [place] [id number] [place] [address] [place], [place] [id number] [place] [address] [place], [place] [phone] Shoulder Pain Discharge Disposition: Home or Self [...] tablet 2 11/28/2023 cyclobenzaprine (FLEXERIL) 10 MG tabletIndications :Other muscle [...] Progress Notes * Padmaja Marie, PT - 12/22/2023 10:00 AM CDT Physical Therapy Visit Note: Patient Name: Oumou Middleton Diagnosis: Left shoulder pain (primary encounter diagnosis) SUBJECTIVE Therapy Visit Start Time: 1001 Stop Time: 1116 Time Calculation (min): 75 min Treatment Day: 13 for SH/2 for LB Total Approved Visits: 20 for [...] exacerbated early Oct. 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[employer] works [employer] Job Duties: Has help at work to lift things currently Subjective Note: Having a rough time. Her dog was hit by a car over the weekend while she was walking it. She had to jump into the ditch to avoid being hit. Was able to move it for 2 days after last session with less pain but then tightened up again. Feeling very tight this morning. Sees her PCP and Dr. Logan today. 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 PROM: gentle, slow PROM all planes (with MHP held down with sheet) x 15 min - supine LEs on bolster(pillow under LUE also with towel roll) Exercise: Pulleys scaption, butterfly x 2-3 min each (longer holds) with MHP Exercise: Wall slides flexion and scap (towel), with light assist from RUE x 10 each with MHP on Exercise: Table slides (longer holds) flexion, scaption, ER x [address] each [address] (chair laterally at table) Exercise: Chin tucks standing x 10, + R ROT x 10, + L ROT x 1 but inc pain in UT/spasms Other (Comments): IASTM before PROM see below Manual Therapy - 36258 Number of Minutes - 73251: 15 Instrument Assisted STM: IASTM (no cups) to L upper arm (supine, pillow under LUE) - before PROM Modalities Non-Timed Electrical Stimulation Unattended - Minutes- 46971: 15 Electrical Stimulation Unattended - 65704/G0283: IFC to L shoulder at end of session - supine with bolster under LEs. Also with MHP to L shoulder and low back for comfort Hot Pack - 13874: MHP to L shoulder and low back while in supine. MHP also with pulleys and table slides today Total Non- Timed Modality Minutes: 15 Education Was Education Provided: Yes Topic: ther ex, PT POC Recipient: Patient Method: Verbal, Demonstration, Return Demonstration Response: Verbalized understanding, Asked questions, Demonstrates adequately ASSESSMENT Assessment Note: Not as painful with PROM and decreased tenderness with IASTM performed today. Pt did have radiating pain down to L upper trap and upper arm after performing chin tucks + L ROT today. No increased pain with regular or R ROT chin tucks. Continues to demonstrate signs and symptoms of both cervical pathology as well as adhesive capsulitis. Continues to be tearful with pain when spasms occur. Response to Treatment : no adverse reactions Goal Progression: very gradual progression Continue on Functional Deficit of: L shoulder pain with dressing, bathing, work, sleep PLAN Plan Next Visit Plan: Continue PT per POC, progress as tolerated. Total Time Total Time in Minutes: 75 Timed Code Treatment Minutes : 60 documented in this encounter Plan of Treatment Upcoming Encounters Date Type Department Care Team (Late [facility]) Description 02/12/2024 9:00 AM PESTICIDE APPLICATOR Appointment [facility] [address] [place] [address] [place] [address] [place] [address] [place] [address] [place] [address] 02/12/2024 2:00 PM PESTICIDE APPLICATOR Appointment [facility] [address] [place] [address] [place] [address] [place] [address] 02/16/2024 9:00 AM PESTICIDE APPLICATOR Appointment [facility] [address] [place] [address] [place] [address] [place] [address] [place] [address] [place] [address] 02/19/2024 8:45 AM PESTICIDE APPLICATOR Appointment [facility] [address] [place] [address] [place] [address] [place] [address] [place] [address] [place] [address] 02/19/2024 9:00 AM PESTICIDE APPLICATOR Appointment [facility] [address] [place] [address] [place] [address] [place] [address] [place] [address] [place] [address] 02/23/2024 9:00 AM PESTICIDE APPLICATOR Appointment [facility] [address] [place] [address] [place] [address] [place] [address] [place] [address] [place] [address] 02/24/2024 1:30 PM PESTICIDE APPLICATOR Appointment [facility] [address] [place] [address] [place] [address] [place] [address] 02/26/2024 9:00 AM PESTICIDE APPLICATOR Appointment [facility] [address] [place] [address] [place] [address] [place] [address] [place] [address] [place] [address] 02/26/2024 9:15 AM PESTICIDE APPLICATOR Appointment [facility] [address] [place] [address] [place] [address] [place] [address] [place] [address] [place] [address] 03/01/2024 9:00 AM PESTICIDE APPLICATOR Appointment [facility] [address] [place] [address] [place] [address] [place] [address] [place] [address] [place] [address] Lorene Branch, ENTRY MANAGER 03/02/2024 12:27 PM PESTICIDE APPLICATOR Hospital Encounter [facility] [address] [place] [address] [place] [address] [place] [address] 03/02/2024 12:27 PM PESTICIDE APPLICATOR - 03/02/2024 1:07 PM PESTICIDE APPLICATOR Surgery [facility] [address] [place] [address] [place] [address] [place] [address] MANIPULATION SHOULDER 03/05/2024 9:00 AM PESTICIDE APPLICATOR Appointment [facility] [address] [place] [address] [place] [address] [place] [address] Lorene Branch, ENTRY MANAGER 03/08/2024 9:00 AM PESTICIDE APPLICATOR Appointment [facility] [address] [place] [address] [place] [address] [place] [address] Lorene Branch, ENTRY MANAGER 03/11/2024 9:15 AM PESTICIDE APPLICATOR Appointment [facility] [address] [place] [address] [place] [address] [place] [address] Lorene Branch, ENTRY MANAGER 03/15/2024 9:00 AM PESTICIDE APPLICATOR Appointment [facility] [address] [place] [address] [place] [address] [place] [address] Lorene Barnch, ENTRY MANAGER 03/18/2024 9:15 AM PESTICIDE APPLICATOR Appointment [facility] [address] [place] [address] [place] [address] [place] [address] Lorene Branch, ENTRY MANAGER 03/22/2024 9:00 AM PESTICIDE APPLICATOR Appointment [facility] [address] [place] [address] [place] [address] [place] [address] Lorene Branch, ENTRY MANAGER 03/25/2024 9:15 AM PESTICIDE APPLICATOR [facility]ointment [facility] [address] [place] [address] [place] [address] [place] [address] Lorene Branch, ENTRY MANAGER 04/21/2024 11:20 AM PESTICIDE APPLICATOR Office Visit [facility] Family & Internal Medicine [address] [phone] [place] [address] [place], [place] [phone] Scheduled Procedures Name Priority Associated Diagnoses Date/Ti me MANIPULATION SHOULDER Adhesive capsulitis of left shoulder 03/02/2024 12:27 PM PESTICIDE APPLICATOR INJECTION JOINT Adhesive capsulitis of left shoulder 03/02/2024 12:27 PM PESTICIDE APPLICATOR documented as of this encounter Visit Diagnoses Diagnosis Left shoulder pain- Primary Pain in joint, shoulder region Adhesive capsulitis of left shoulder Adhesive capsulitis of shoulder documented in this encounter Additional Health Concerns Assessment Noted Time PHQ-9 Depression Total Score: 024 3:24 PM CDT documented as of this encounter Care Teams Director Of Purchasing Relationship Specialty [place] [address] [place] [address] PCP - General Physician [facility] 09/16/23 documented as of this encounter
--- OUTSIDE RECORDS SUMMARY | 2024-02-12 03:29 | XMS_ITS | Encounter Summary ---
Author Organization [facility] Address [facility]. [place], [place] [address] [place] [address] Care Team Providers Care Wireless Network Engineer Name Role Phone Holger Soriano Primary Care Provider [phone] Reason for Visit * Reason Comments Shoulder Pain Back Pain * Physical Medicine (Urgent) - Authorized Specialty Diagnoses / Procedures Referred By Shmuel t Referred To Contact PHYSICAL THERAPY Diagnoses Left shoulder pain Low back pain Procedures OFFICE/OUTPATIENT NEW LOW MDM 30-44 MINUTES OFFICE/OUTPT VISIT,NEW,LEVL IV OFFICE/OUTPT VISIT,NEW,LEVL V OFFICE/OUTPT VISIT,EST,LEVL III OFFICE/OUTPT VISIT,EST,LEVL IV OFFICE/OUTPT VISIT,EST[place] [address] [place] [address] Phone: tel: fax: [facility] [address] [place] [address] Phone: tel: fax: Referral ID Status Reason Start Date Expiration Date Visits Requested Visits Authorized [id number] Authorized Physical Therapy 10/13/2023 11/11/2024 99 99 Encounter Details Date Type Department Care Team (Latest Contact Info) Description 12/08/2023 4:45 PM CDT - 12/08/2023 11:59 PM CDT Hospital Encounter [facility] [address] [place] [address] [place] [address] [place] [address] [place] [address] [place] [address] Shoulder Pain; Back Pain Discharge Disposition: Home [...] (FLEXERIL) 10 MG tabletIndications :Other muscle spasm take 1 tablet by mouth three times a day as needed for muscle spasms 30 tablet 12/08/2023 4 diazePAM (VALIUM) 5 MG tabletIndications :Acute [...] complication, with long-term current use of insulin ([facility]) Take 1 tablet (4 mg total) by mouth every 8 (eight) hours as needed for Nausea. 20 tablet 11/19/2023 4 progesterone (PROMETRIUM) 100 MG capsuleIndication s:Menopausal and female climacteric states take 1 capsule by mouth every day 90 capsule 1 06/10/2023 4 documented as of this encounter Progress Notes * Padmaja Marie, PT - 12/08/2023 5:00 PM CDT Physical Therapy Visit Note: Patient Name: Oumou Middleton Diagnosis: Left shoulder pain (primary encounter diagnosis) SUBJECTIVE Therapy Visit Start Time: 1653 Stop Time: 1755 Time Calculation (min): 62 min Treatment Day: 10 for SH/2 for LB (LB tx only today) Total Approved Visits: 20 for both SH (re-eval 10th visit for SH), 16 for back Therapy Plan of Care: 2x/week for 8 weeks Current Therapy Orders: eval and tx Diagnosis: L shoulder pain, low back pain Referring Provider: Holger Suarez MD Visit: Cervical MRI 12/10/23 Date of Injury: Shoulder- Fell Feb 2023 but pain started in Nov 2022. Low back - exacerbated early Oct. 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[employer], [employer], [employer] Job Duties: Has help at work to lift things currently Subjective Note: Back really hurting, wants to focus on that today. Low and middle to upper back are hurting. Lower back hurts with sit to stand. The longer she stands the worse her mid to upper back hurts and tingles. Just came from work today for about 5 hours. Feels her L shoulder is swollen also. Hurts upinto her L upper trap. Can hardly move when she gets home from work. 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 Also LTR, knees to L only x 20 Exercise: prone over 1 pillow x 5 min with gentle STM to L lumbar paraspinals. Gentle TYLER glides grade 1 2 x 10 (instructed in prone over pillows to prone progression for HEP) Patient/Family Education: Home exercise program, Joint Protection Principles Other (Comments): Performed supine activities with MHP and IFC. See modalities. Education on lumbaranatomy, HEP including attempting prone lying/LTR (knees to left), x-ray results also performed today. Modalities Non-Timed Electrical Stimulation Unattended - Minutes- 79477: 15 Electrical Stimulation Unattended - 68925/G0283: IFC to low back x 15 min (supine, bolster under knees) (during supine activities today) Total Non- Timed Modality Minutes: 15 Education Was Education Provided: Yes Topic: see above Recipient: Patient Method: Verbal, Demonstration Response: Asked questions, Verbalized understanding ASSESSMENT Assessment Note: Increased time required for all bed mobility today. Pain does relieve some after interventions today until attempting to return to sitting EOB position. Palpable muscle guarding felt to L low back with reports of spasm during session. Tx emph on back today per pt request. Continue on Functional Deficit of: L shoulder pain with dressing, bathing, work, sleep PLAN Plan Next Visit Plan: Cont PT per POC. Total Time Total Time in Minutes: 77 Timed Code Treatment Minutes : 62 documented in this encounter Plan of Treatment Upcoming Encounters Date Type Department Care Team (Late st Contact Info) Description 02/12/2024 9:00 AM FINANCIAL INVESTMENT ADVISER Appointment [facility] [address] [place] [address] [place] [address] [place] [address] [place] [address] [place] [address] 02/12/2024 2:00 PM FINANCIAL INVESTMENT ADVISER Appointment [facility] [address] [place] [address] [place] [address] [place] [address] 02/16/2024 9:00 AM FINANCIAL INVESTMENT ADVISER Appointment [facility] [address] [place] [address] [place] [address] [place] [address] [place] [address] [place] [address] 02/19/2024 8:45 AM FINANCIAL INVESTMENT ADVISER Appointment [facility] [address] [place] [address] [place] [address] [place] [address] [place] [address] [place] [address] 02/19/2024 9:00 AM FINANCIAL INVESTMENT ADVISER Appointment [facility] [address] [place] [address] [place] [address] [place] [address] [place] [address] [place] [address] 02/23/2024 9:00 AM FINANCIAL INVESTMENT ADVISER Appointment [facility] [address] [place] [address] [place] [address] [place] [address] [place] [address] [place] [address] 02/24/2024 1:30 PM FINANCIAL INVESTMENT ADVISER Appointment [facility] [address] [place] [address] [place] [address] [place] [address] 02/26/2024 9:00 AM FINANCIAL INVESTMENT ADVISER Appointment [facility] [address] [place] [address] [place] [address] [place] [address] [place] [address] [place] [address] 02/26/2024 9:15 AM FINANCIAL INVESTMENT ADVISER Appointment [facility] [address] [place] [address] [place] [address] [place] [address] [place] [address] [place] [address] 03/01/2024 9:00 AM FINANCIAL INVESTMENT ADVISER Appointment [facility] [address] [place] [address] [place] [address] [place] [address] [place] [address] [place] [address] Lorene Branch, KILN MAINTENANCE 03/02/2024 12:27 PM FINANCIAL INVESTMENT ADVISER Hospital Encounter [facility] [id number] [place] [address] [place] [address] [place] [address] 03/02/2024 12:27 PM FINANCIAL INVESTMENT ADVISER - 03/02/2024 1:07 PM FINANCIAL INVESTMENT ADVISER Surgery [address] [address] [place] [address] [place] [address] MANIPULATION SHOULDER 03/05/2024 9:00 AM FINANCIAL INVESTMENT ADVISER Appointment [facility] [address] [place] [address] [place] [address] [place] [address] Lorene Branch, KILN MAINTENANCE 03/08/2024 9:00 AM FINANCIAL INVESTMENT ADVISER Appointment [facility] [address] [place] [address] [place] [address] [place] [address] Lorene Branch, KILN MAINTENANCE 03/11/2024 9:15 AM FINANCIAL INVESTMENT ADVISER Appointment [facility] [address] [place] [address] [place] [address] [place] [address] Lorene Branch, KILN MAINTENANCE 03/15/2024 9:00 AM FINANCIAL INVESTMENT ADVISER Appointment [facility] [address] [place] [address] [place] [address] [place] [address] Lorene Branch, KILN MAINTENANCE 03/18/2024 9:15 AM FINANCIAL INVESTMENT ADVISER Appointment [facility] [address] [place] [address] [place] [address] [place] [address] Lorene Branch, KILN MAINTENANCE 03/22/2024 9:00 AM FINANCIAL INVESTMENT ADVISER Appointment [facility] [address] [place] [address] [place] [address] [place] [address] Lorene Branch, KILN MAINTENANCE 03/25/2024 9:15 AM FINANCIAL INVESTMENT ADVISER Appointment [facility] [address] [place] [address] [place] [address] [place] [address] Lornee Branch, KILN MAINTENANCE 04/21/2024 11:20 AM FINANCIAL INVESTMENT ADVISER Office Visit [facility] Family & Internal Medicine - [address] [address] [place] [address] [place] [address] Scheduled Procedures Name Priority Associated Diagnoses Date/Ti me MANIPULATION SHOULDER Adhesive capsulitis of left shoulder 03/02/2024 12:27 PM FINANCIAL INVESTMENT ADVISER INJECTION JOINT Adhesive capsulitis of left shoulder 03/02/2024 12:27 PM FINANCIAL INVESTMENT ADVISER documented as of this encounter Visit Diagnoses Diagnosis Left shoulder pain- Primary Pain in joint, shoulder region Adhesive capsulitis of left shoulder Adhesive capsulitis of shoulder documented in this encounter Additional Health Concerns Assessment Noted Time PHQ-9 Depression Total Score: 024 3:24 PM CDT documented as of this encounter Care Teams Wireless Network Engineer Relationship Specialty [place] [address] [place] [address] PCP - General Physician Risk Consulting Treasury Director Medical 09/16/23 documented as of this encounter
--- OUTSIDE RECORDS SUMMARY | 2024-02-12 03:29 | XMS_ITS | Encounter Summary ---
Author Organization [facility] Address [facility]. [place], [place] [address] [place] [address] Care Team Providers Care Department Operations Manager Name Role Phone Holger Soriano Primary Care Provider [phone] Reason for Visit * Reason Comments Shoulder Pain Back Pain * Physical Medicine (Urgent) - Authorized Specialty Diagnoses / Procedures Referred By Shmuel t Referred To Contact PHYSICAL THERAPY Diagnoses Left shoulder pain Low back pain Procedures OFFICE/OUTPATIENT NEW LOW MDM 30-44 MINUTES OFFICE/OUTPT VISIT,NEW,LEVL IV OFFICE/OUTPT VISIT,NEW,LEVL V OFFICE/OUTPT VISIT,EST,LEVL III OFFICE/OUTPT VISIT,EST,LEVL IV OFFICE/OUTPT VISIT,EST,[place] [address] [place] [address] Phone: tel: fax: [facility] [address] [place] [address] Phone: tel: fax: Referral ID Status Reason Start Date Expiration Date Visits Requested Visits Authorized [id number] Authorized Physical Therapy 10/13/2023 11/11/2024 99 99 Encounter Details Date Type Department Care Team (Latest Contact Info) Description 12/18/2023 9:26 AM CDT - 12/18/2023 11:59 PM CDT Hospital Encounter [facility] [address] [place], [place] [address] [place] [address] [place] [address] [place] [address] [place] [address] Shoulder Pain; Back Pain Discharge Disposition: Home [...] needed for Anxiety. 10 tablet 11/07/2023 4 estradiol (ESTRACE) 2 MG tabletIndications :Menopausal [...] complication, with long-term current use of insulin ([facility]) Take 1 tablet (4 mg total) by mouth every 8 (eight) hours as needed for Nausea. 20 tablet 11/19/2023 4 progesterone (PROMETRIUM) 100 MG capsuleIndication s:Menopausal and female climacteric states take 1 capsule by mouth every day 90 capsule 1 06/10/2023 4 documented as of this encounter Progress Notes * Padmaja Marie, PT - 12/18/2023 9:30 AM CDT Physical Therapy Visit Note: Patient Name: Oumou Middleton Diagnosis: Left shoulder pain (primary encounter diagnosis) SUBJECTIVE Therapy Visit Start Time: 929 Stop Time: 5 Time Calculation (min): 65 min Treatment Day: 12 for SH/2 for LB Total Approved Visits: [...] exacerbated early Oct. 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 Back is actually feeling pretty good, only hurts at work. Hurts to drape her arm over her body pillow after about an hour. Feelslike a sharp electrical feeling when she goes to move it. Response to prior treatment: was sore in the usual spot but overall felt like it helped. 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[employer], 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, 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 PROM: gentle, slow PROM all planes (with MHP held down with sheet) x 15 min - supine LEs on bolster(pillow under LUE also with towel roll) Exercise: Pulleys scaption, butterfly x 2-3 min each (longer holds) with MHP Exercise: Table slides (longer holds) flexion, scaption, ER x [address] each [address] (chair laterally at table) Other (Comments): IASTM before PROM see below Manual Therapy - 76184 Number of Minutes - 68363: 15 Instrument Assisted STM: IASTM (hands and cups) to L upper arm (supine, pillow under LUE) - before PROM Modalities Non-Timed Electrical Stimulation Unattended - Minutes- 73236: 15 Electrical Stimulation Unattended - 42614/G0283: IFC to L shoulder at end of session - supine with bolster under LEs. Also with MHP to L shoulder and low back for comfort Hot Pack - 44485: MHP to L shoulder and low back while in supine. MHP also with pulleys and table slides today Total Non- Timed Modality Minutes: 15 Education Was Education Provided: Yes Topic: ex technique/ROM, IFC Recipient: Patient Method: Return Demonstration, Demonstration, Verbal Response: Verbalized understanding, Asked questions, Demonstrates adequately ASSESSMENT Assessment Note: Improved ER ROM after several reps table slides in this plane. However PROM in all planes wasdecreased some from last session. Tight end feel noted in each direction, pt continues to grimace in pain. Utilized IFC for pain relief as pt has responded well to this in the past. She did demonstrate slightly less guarded UE movement afterwards. Response to Treatment : it still spasms some but feels better after tx/IFC Continue on Functional Deficit of: L shoulder pain with dressing, bathing, work, sleep PLAN Total Time Total Time in Minutes: 65 Timed Code Treatment Minutes : 50 documented in this encounter Plan of Treatment Upcoming Encounters Date Type Department Care Team (Late st Contact Info) Description 02/12/2024 9:00 AM CQ DEVELOPER Appointment [facility] [address] [place], [place] [id number] [place] [address] [place] [address] [place] [address] [place], [place] [id number] 02/12/2024 2:00 PM CQ DEVELOPER Appointment [facility] [address] [place] [address] [place] [address] [place] [address] 02/16/2024 9:00 AM CQ DEVELOPER Appointment [facility] [address] [place] [address] [place] [address] [place] [address] [place] [address] [place] [address] 02/19/2024 8:45 AM CQ DEVELOPER Appointment [facility] [address] [place] [address] [place] [address] [place] [address] [place] [address] [place] [address] 02/19/2024 9:00 AM CQ DEVELOPER Appointment [facility] [address] [place] [address] [place] [address] [place] [address] [place] [address] [place] [address] 02/23/2024 9:00 AM CQ DEVELOPER Appointment [facility] [address] [place] [address] [place] [address] [place] [address] [place] [address] [place] [address] 02/24/2024 1:30 PM CQ DEVELOPER Appointment [facility] [address] [place] [address] Ihsan Logan, [address] [place] [address] 02/26/2024 9:00 AM CQ DEVELOPER Appointment [facility] [address] [place] [address] [place] [address] [place] [address] [place] [address] [place] [address] 02/26/2024 9:15 AM CQ DEVELOPER Appointment [facility] [address] [place] [address] [place] [address] [place] [address] [place] [address] [place] [address] 03/01/2024 9:00 AM CQ DEVELOPER Appointment [facility] [address] [place] [address] [place] [address] [place] [address] [place] [address] [place] [address] Lorene Branch, ELECTRONIC VIDEO GAMES SERVICER 03/02/2024 12:27 PM CQ DEVELOPER Hospital Encounter [facility] [address] [place] [address] [place] [address] [place] [address] 03/02/2024 12:27 PM CQ DEVELOPER - 03/02/2024 1:07 PM CQ DEVELOPER Surgery [facility] [address] [place] [address] [place] [address] [place] [address] MANIPULATION SHOULDER 03/05/2024 9:00 AM CQ DEVELOPER Appointment [facility] [address] [place] [address] [place] [address] [place] [address] Lorene Branch, ELECTRONIC VIDEO GAMES SERVICER 03/08/2024 9:00 AM CQ DEVELOPER Appointment [facility] [address] [place] [address] [place] [address] [place] [address] Lorene Branch, ELECTRONIC VIDEO GAMES SERVICER 03/11/2024 9:15 AM CQ DEVELOPER Appointment [facility] [address] [place] [address] [place] [address] [place] [address] Lorene Branch, ELECTRONIC VIDEO GAMES SERVICER 03/15/2024 9:00 AM CQ DEVELOPER Appointment [facility] [address] [place] [address] [place] [address] [place] [address] Lorene Branch, ELECTRONIC VIDEO GAMES SERVICER 03/18/2024 9:15 AM CQ DEVELOPER Appointment [facility] [address] [place] [address] [place] [address] [place] [address] Lorene Branch, ELECTRONIC VIDEO GAMES SERVICER 03/22/2024 9:00 AM CQ DEVELOPER Appointment [facility] [address] [place] [address] [place] [address] [place] [address] Lorene Branch, ELECTRONIC VIDEO GAMES SERVICER 03/25/2024 9:15 AM CQ DEVELOPER Appointment [facility] [address] [place] [address] [place] [address] [place] [address] Lorene Branch, ELECTRONIC VIDEO GAMES SERVICER 04/21/2024 11:20 AM CQ DEVELOPER Office Visit [facility] Family & Internal Medicine [address] [address] [place] [address] [place] [address] Scheduled Procedures Name Priority Associated Diagnoses Date/Ti me MANIPULATION SHOULDER Adhesive capsulitis of left shoulder 03/02/2024 12:27 PM CQ DEVELOPER INJECTION JOINT Adhesive capsulitis of left shoulder 03/02/2024 12:27 PM CQ DEVELOPER documented as of this encounter Visit Diagnoses Diagnosis Left shoulder pain- Primary Pain in joint, shoulder region Adhesive capsulitis of left shoulder Adhesive capsulitis of shoulder documented in this encounter Additional Health Concerns Assessment Noted Time PHQ-9 Depression Total Score: 024 3:24 PM CDT documented as of this encounter Care Teams Department Operations Manager Relationship Specialty [place] [address] [place] [address] PCP - General Physician Acquisitions Editor Medical 09/16/23 documented as of this encounter
--- OUTSIDE RECORDS SUMMARY | 2024-02-12 03:29 | XMS_ITS | Encounter Summary ---
Author Organization [facility] Address [facility] [place] [address] [place] [address] Care Team Providers Care Acid Conditioner Name Role Phone Holger Soriano Primary Care Provider [phone] Encounter Details Date Type Department Care Team (Latest Contact Info) Description 11/24/2023 Travel Social History Tobacco Use Types Packs/Day [...] st Contact Info) Description 02/12/2024 9:00 AM PUBLIC AFFAIRS OFFICER Appointment [facility] Outpatient Rehab [address] [place] [address] [place] [address] [place] [address] [place] [address] [place] [id number] 02/12/2024 2:00 PM PUBLIC AFFAIRS OFFICER Appointment [facility] [place] [address] [place] [address] [place] [address] [place] [address] 02/16/2024 9:00 AM PUBLIC AFFAIRS OFFICER Appointment [facility] Outpatient Rehab [address] [place] [address] [place] [address] [place] [address] [place] [address] [place] [address] 02/19/2024 8:45 AM PUBLIC AFFAIRS OFFICER Appointment [facility] Outpatient Rehab [address] [place] [address] [place] [address] [place] [address] [place] [address] [place] [address] 02/19/2024 9:00 AM PUBLIC AFFAIRS OFFICER Appointment [facility] Outpatient Rehab [address] [place] [address] [place] [address] [place] [address] [place] [address] [place] [address] 02/23/2024 9:00 AM PUBLIC AFFAIRS OFFICER Appointment [facility] Outpatient Rehab [address] [place] [address] [place] [address] [place] [address] [place] [address] [place] [address] 02/24/2024 1:30 PM PUBLIC AFFAIRS OFFICER Appointment [facility] [address] [place] [address] [place] [address] [place] [address] 02/26/2024 9:00 AM PUBLIC AFFAIRS OFFICER Appointment [facility] Outpatient Rehab [address] [place] [address] [place] [address] [place] [address] [place] [address] [place] [address] 02/26/2024 9:15 AM PUBLIC AFFAIRS OFFICER Appointment [facility] Outpatient Rehab [address] [place] [address] [place] [address] [place] [address] [place] [address] [place] [address] 03/01/2024 9:00 AM PUBLIC AFFAIRS OFFICER Appointment [facility] Outpatient Rehab [address] [place] [address] [place] [address] [place] [address] [place] [address] [place] [address] Lorene Branch, OVERHAULER HELPER 03/02/2024 12:27 PM PUBLIC AFFAIRS OFFICER Hospital Encounter [facility] [id number] [place] [address] [place] [address] [place] [address] 03/02/2024 12:27 PM PUBLIC AFFAIRS OFFICER - 03/02/2024 1:07 PM PUBLIC AFFAIRS OFFICER Surgery [address] [address] [place] [address] [place] [address] MANIPULATION SHOULDER 03/05/2024 9:00 AM PUBLIC AFFAIRS OFFICER Appointment [facility] Outpatient Rehab [address] [place] [address] [place] [address] [place] [address] Lorene Branch, OVERHAULER HELPER 03/08/2024 9:00 AM PUBLIC AFFAIRS OFFICER Appointment [facility] Outpatient Rehab [address] [place] [address] [place] [address] [place] [address] Lorene Branch, OVERHAULER HELPER 03/11/2024 9:15 AM PUBLIC AFFAIRS OFFICER Appointment [facility] Outpatient Rehab [address] [place] [address] [place] [address] [place] [address] Lorene Branch, OVERHAULER HELPER 03/15/2024 9:00 AM PUBLIC AFFAIRS OFFICER Appointment [facility] [address] [place] [address] [place] [address] [place] [address] Lorene Branch, OVERHAULER HELPER 03/18/2024 9:15 AM PUBLIC AFFAIRS OFFICER Appointment [facility] [address] [place] [address] [place] [address] [place] [address] Lorene Branch, OVERHAULER HELPER 03/22/2024 9:00 AM PUBLIC AFFAIRS OFFICER Appointment [facility] [address] [place] [address] [place] [address] [place] [address] Lorene Branch, OVERHAULER HELPER 03/25/2024 9:15 AM PUBLIC AFFAIRS OFFICER Appointment [facility] [address] [place] [address] [place] [address] [place] [address] Lorene Branch, OVERHAULER HELPER 04/21/2024 11:20 AM PUBLIC AFFAIRS OFFICER Office Visit [facility] Family & Internal Medicine - [address] [address] [place] [address] [place] [address] Scheduled Procedures Name Priority Associated Diagnoses Date/Ti me MANIPULATION SHOULDER Adhesive capsulitis of left shoulder 03/02/2024 12:27 PM PUBLIC AFFAIRS OFFICER INJECTION JOINT Adhesive capsulitis of left shoulder 03/02/2024 12:27 PM PUBLIC AFFAIRS OFFICER documented as of this encounter Visit Diagnoses Not on filedocumented in this encounter Additional Health Concerns Assessment Noted Time PHQ-9 Depression Total Score: 024 3:24 PM CDT documented as of this encounter Care Teams Acid Conditioner Relationship Specialty [place] [address] [place] [address] PCP - General Physician Tool Hardener Medical 09/16/23 documented as of this encounter
--- OUTSIDE RECORDS SUMMARY | 2024-02-12 03:29 | XMS_ITS | Encounter Summary ---
Author Organization [facility] Address Critical access hospital6 [facility] [place] [address] [place] [address] Care Team Providers Care Coremaker Helper Name Role Phone Holger Soriano Primary Care Provider [phone] Encounter Details Date Type Department Care Team (Latest Contact Info) Description 12/04/2023 Travel Social History Tobacco Use Types Packs/Day [...] st Contact Info) Description 02/12/2024 9:00 AM TITLE SUPERVISOR Appointment [facility] Outpatient Rehab [address] [place] [address] [place] [address] [place] [address] [place] [address] [place] [address] 02/12/2024 2:00 PM TITLE SUPERVISOR Appointment [facility] MRI [address] [place] [address] [place] [address] [place] [address] 02/16/2024 9:00 AM TITLE SUPERVISOR Appointment [facility] Outpatient Rehab [address] [place] [address] [place] [address] [place] [address] [place] [address] [place] [address] 02/19/2024 8:45 AM TITLE SUPERVISOR Appointment [facility] Outpatient Rehab [address] [place] [address] [place] [address] [place] [address] [place] [address] [place] [address] 02/19/2024 9:00 AM TITLE SUPERVISOR Appointment [facility] Outpatient Rehab [address] [place] [address] [place] [address] [place] [address] [place] [address] [place] [address] 02/23/2024 9:00 AM TITLE SUPERVISOR Appointment [facility] Outpatient Rehab [address] [place] [address] [place] [address] [place] [address] [place] [address] [place] [address] 02/24/2024 1:30 PM TITLE SUPERVISOR Appointment [facility] [address] [place] [address] [place] [address] [place] [address] 02/26/2024 9:00 AM TITLE SUPERVISOR Appointment [facility] Outpatient Rehab [address] [place] [address] [place] [address] [place] [address] [place] [address] [place] [address] 02/26/2024 9:15 AM TITLE SUPERVISOR Appointment [facility] Outpatient Rehab [address] [place] [address] [place] [address] [place] [address] [place] [address] [place] [address] 03/01/2024 9:00 AM TITLE SUPERVISOR Appointment [facility] Outpatient Rehab [address] [place] [address] [place] [address] [place] [address] [place] [address] [place] [address] Lorene Branch, PRE OWNED SALES CONSULTANT 03/02/2024 12:27 PM TITLE SUPERVISOR Hospital Encounter [facility] [id number] [place] [address] [place] [address] [place] [address] 03/02/2024 12:27 PM TITLE SUPERVISOR - 03/02/2024 1:07 PM TITLE SUPERVISOR Surgery [address] [address] [place] [address] [place] [address] MANIPULATION SHOULDER 03/05/2024 9:00 AM TITLE SUPERVISOR Appointment [facility] Outpatient Rehab [address] [place] [address] [place] [address] [place] [address] Lorene Branch, PRE OWNED SALES CONSULTANT 03/08/2024 9:00 AM TITLE SUPERVISOR Appointment [facility] Outpatient Rehab [address] [place] [address] [place] [address] [place] [address] Lorene Branch, PRE OWNED SALES CONSULTANT 03/11/2024 9:15 AM TITLE SUPERVISOR Appointment [facility] Outpatient Rehab [address] [place] [address] [place] [address] [place] [address] Lorene Branch, PRE OWNED SALES CONSULTANT 03/15/2024 9:00 AM TITLE SUPERVISOR Appointment [facility] [address] [place] [address] [place] [address] [place] [address] Lorene Branch, PRE OWNED SALES CONSULTANT 03/18/2024 9:15 AM TITLE SUPERVISOR Appointment [facility] [address] [place] [address] [place] [address] [place] [address] Lorene Branch, PRE OWNED SALES CONSULTANT 03/22/2024 9:00 AM TITLE SUPERVISOR Appointment [facility] [address] [place] [address] [place] [address] [place] [address] Lorene Branch, PRE OWNED SALES CONSULTANT 03/25/2024 9:15 AM TITLE SUPERVISOR Appointment [facility] [address] [place] [address] [place] [address] [place] [address] Lorene Branch, PRE OWNED SALES CONSULTANT 04/21/2024 11:20 AM TITLE SUPERVISOR Office Visit [facility] Family & Internal Medicine - [address] [address] [place] [address] [place] [address] Scheduled Procedures Name Priority Associated Diagnoses Date/Ti me MANIPULATION SHOULDER Adhesive capsulitis of left shoulder 03/02/2024 12:27 PM TITLE SUPERVISOR INJECTION JOINT Adhesive capsulitis of left shoulder 03/02/2024 12:27 PM TITLE SUPERVISOR documented as of this encounter Visit Diagnoses Not on filedocumented in this encounter Additional Health Concerns Assessment Noted Time PHQ-9 Depression Total Score: 024 3:24 PM CDT documented as of this encounter Care Teams Coremaker Helper Relationship Specialty [place] [address] [place] [address] PCP - General Physician Auto Body Repair Teacher Medical 09/16/23 documented as of this encounter
--- OUTSIDE RECORDS SUMMARY | 2024-02-12 03:29 | XMS_ITS | Encounter Summary ---
Author Organization [facility] Address [facility] [place] [address] [place] [address] Care Team Providers Care Ibm Mainframe Developer Name Role Phone Holger Christopher Primary Care Provider [phone] Reason for Visit * Reason Onset Date Comments Question 12/22/2023 Forms 12/22/2023 Encounter Details Date Type Department Care Team (Late st Contact Info) Description 12/22/2023 Telephone [facility] Family & Internal Medicine [facility] [address] [place] [address] [place] [address] [place] [address] Question; Forms Social History Tobacco Use Types Packs/Day Years [...] Progress Notes * Susana Nunez MA - 12/23/2023 11:19 AM CDT desk editor spoke to patient and informed her of information below. No questions/concerns. * Susana Nunez MA - 12/23/2023 9:07 AM CDT [facility] to inform her of information below * Susana Nunez MA - 12/22/2023 4:05 PM CDT Please advise * Liam Bonds - 12/22/2023 3:54 PM CDT Pt stopped by saw dr logan on 12/22/23 stated that she is needing Manipulation on her left shoulder for her frozen shoulder. She is going to be put under and he is going to break up the muscles and is needing a note from Dr christopher for insurance purposes saying it is safe for the pt to do this type of Surgery he is not cutting her open she stated that she had her Deviated septum fixed in January by Dr Esparza stated that she did just fine being under while doing so. Please advise. Appt date 01/08/24 documented in this encounter Plan of Treatment Upcoming Encounters Date Type Department Care Team (Late st Contact Info) Description 02/12/2024 9:00 AM HYDRAULIC STRAINER OPERATOR Appointment [facility] Outpatient Rehab [address] [place], [place] [id number] [place] [address] [place] [address] [place] [address] [place], [place] [address] 02/12/2024 2:00 PM HYDRAULIC STRAINER OPERATOR Appointment [facility] MRI [address] [place] [address] [place] [address] [place] [address] 02/16/2024 9:00 AM HYDRAULIC STRAINER OPERATOR Appointment [facility] Outpatient Rehab [address] [place] [address] [place] [address] [place] [address] [place] [address] [place] [address] 02/19/2024 8:45 AM HYDRAULIC STRAINER OPERATOR Appointment [facility] Outpatient Rehab [address] [place] [address] [place] [address] [place] [address] [place] [address] [place] [address] 02/19/2024 9:00 AM HYDRAULIC STRAINER OPERATOR Appointment [facility] Outpatient Rehab [address] [place] [address] [place] [address] [place] [address] [place] [address] [place] [address] 02/23/2024 9:00 AM HYDRAULIC STRAINER OPERATOR Appointment [facility] Outpatient Rehab [address] [place] [address] [place] [address] [place] [address] [place] [address] [place] [address] 02/24/2024 1:30 PM HYDRAULIC STRAINER OPERATOR Appointment [facility] MRI [address] [place] [address] [place] [address] [place] [address] 02/26/2024 9:00 AM HYDRAULIC STRAINER OPERATOR Appointment [facility] Outpatient Rehab [address] [place] [address] [place] [address] [place] [address] [place] [address] [place] [address] 02/26/2024 9:15 AM HYDRAULIC STRAINER OPERATOR Appointment [facility] Outpatient Rehab [address] [place] [address] [place] [address] [place] [address] [place] [address] [place] [address] 03/01/2024 9:00 AM HYDRAULIC STRAINER OPERATOR Appointment [facility] Outpatient Rehab [address] [place] [address] [place] [address] [place] [address] [place] [address] [place] [address] Lorene Branch, SLIVER CHOPPER 03/02/2024 12:27 PM HYDRAULIC STRAINER OPERATOR Hospital Encounter [facility] Surgery [address] [place] [address] [place] [address] [place] [address] 03/02/2024 12:27 PM HYDRAULIC STRAINER OPERATOR - 03/02/2024 1:07 PM HYDRAULIC STRAINER OPERATOR Surgery [address] [address] [place] [address] [place] [address] MANIPULATION SHOULDER 03/05/2024 9:00 AM HYDRAULIC STRAINER OPERATOR Appointment [facility] Outpatient Rehab [address] [place] [address] [place] [address] [place] [address] Lorene Branch, SLIVER CHOPPER 03/08/2024 9:00 AM HYDRAULIC STRAINER OPERATOR Appointment [facility] Outpatient Rehab [address] [place] [address] [place] [address] [place] [address] Lorene Branch, SLIVER CHOPPER 03/11/2024 9:15 AM HYDRAULIC STRAINER OPERATOR Appointment [facility] Outpatient Rehab [address] [place] [address] [place] [address] [place] [address] Lorene Branch, SLIVER CHOPPER 03/15/2024 9:00 AM HYDRAULIC STRAINER OPERATOR Appointment [facility] Outpatient Rehab [address] [place] [address] [place] [address] [place] [address] Lorene Branch, SLIVER CHOPPER 03/18/2024 9:15 AM HYDRAULIC STRAINER OPERATOR Appointment [facility] Outpatient Rehab [address] [place] [address] [place] [address] [place] [address] Lorene Branch, SLIVER CHOPPER 03/22/2024 9:00 AM HYDRAULIC STRAINER OPERATOR Appointment [facility] Outpatient Rehab [address] [place] [address] [place] [address] [place] [address] Lorene Branch, SLIVER CHOPPER 03/25/2024 9:15 AM HYDRAULIC STRAINER OPERATOR Appointment [facility] Outpatient Rehab [address] [place] [address] [place] [address] [place] [address] Lorene Branch, SLIVER CHOPPER 04/21/2024 11:20 AM HYDRAULIC STRAINER OPERATOR Office Visit [facility] Family & Internal Medicine [address] [address] [place] [address] [place] [address] Scheduled Procedures Name Priority Associated Diagnoses Date/Ti me MANIPULATION SHOULDER Adhesive capsulitis of left shoulder 03/02/2024 12:27 PM HYDRAULIC STRAINER OPERATOR INJECTION JOINT Adhesive capsulitis of left shoulder 03/02/2024 12:27 PM HYDRAULIC STRAINER OPERATOR documented as of this encounter Visit Diagnoses Not on filedocumented in this encounter Additional Health Concerns Assessment Noted Time PHQ-9 Depression Total Score: 024 3:24 PM CDT documented as of this encounter Care Teams Ibm Mainframe Developer Relationship Specialty [place] [address] [place] [address] PCP - General Physician Fireworks Assembly Supervisor Medical 09/16/23 documented as of this encounter
--- OUTSIDE RECORDS SUMMARY | 2024-02-12 03:29 | XMS_ITS | Encounter Summary ---
Author Organization [facility] Address [facility] [place], [place] [address] [place] [address] Care Team Providers Care Curb Setter Helper Name Role Phone Holger Soriano Primary Care Provider [phone] Encounter Details Date Type Department Care Team (Latest Contact Info) Description 12/23/2023 Travel Social History Tobacco Use Types Packs/Day [...] Contact Info) Description 02/12/2024 9:00 AM FISH SEINER Appointment [facility] Outpatient Rehab [address] [place], [place] [address] [place] [address] [place] [phone] [place] [address] [place], [place] [address] 02/12/2024 2:00 PM FISH SEINER Appointment [facility] [place] [address] [place] [address] [place] [address] [place] [address] 02/16/2024 9:00 AM FISH SEINER Appointment [facility] Outpatient Rehab [address] [place] [address] [place] [address] [place] [address] [place] [address] [place] [address] 02/19/2024 8:45 AM FISH SEINER Appointment [facility] Outpatient Rehab [address] [place] [address] [place] [address] [place] [address] [place] [address] [place] [address] 02/19/2024 9:00 AM FISH SEINER Appointment [facility] Outpatient Rehab [address] [place] [address] [place] [address] [place] [address] [place] [address] [place] [address] 02/23/2024 9:00 AM FISH SEINER Appointment [facility] Outpatient Rehab [address] [place] [address] [place] [address] [place] [address] [place] [address] [place] [address] 02/24/2024 1:30 PM FISH SEINER Appointment [facility] MRI [address] [place] [address] [place] [address] [place] [address] 02/26/2024 9:00 AM FISH SEINER Appointment [facility] Outpatient Rehab [address] [place] [address] [place] [address] [place] [address] [place] [address] [place] [address] 02/26/2024 9:15 AM FISH SEINER Appointment [facility] Outpatient Rehab [address] [place] [address] [place] [address] [place] [address] [place] [address] [place] [address] 03/01/2024 9:00 AM FISH SEINER Appointment [facility] Outpatient Rehab [address] [place] [address] [place] [address] [place] [address] [place] [address] [place] [address] Lorene Branch, CHILD DEVELOPMENT ASSISTANT 03/02/2024 12:27 PM FISH SEINER Hospital Encounter [facility] Surgery [address] [place] [address] [place] [address] [place] [address] 03/02/2024 12:27 PM FISH SEINER - 03/02/2024 1:07 PM FISH SEINER Surgery [address] [address] [place] [address] [place] [address] MANIPULATION SHOULDER 03/05/2024 9:00 AM FISH SEINER Appointment [facility] Outpatient Rehab [address] [place] [address] [place] [address] [place] [address] Lorene Branch, CHILD DEVELOPMENT ASSISTANT 03/08/2024 9:00 AM FISH SEINER Appointment [facility] Outpatient Rehab [address] [place] [address] [place] [address] [place] [address] Lorene Branch, CHILD DEVELOPMENT ASSISTANT 03/11/2024 9:15 AM FISH SEINER Appointment [facility]patient [facility]hab [address] [place] [address] [place] [address] [place] [address] Lorene Branch, CHILD DEVELOPMENT ASSISTANT 03/15/2024 9:00 AM FISH SEINER Appointment [facility]hab [address] [place] [address] [place] [address] [place] [address] Lorene Branch, CHILD DEVELOPMENT ASSISTANT 03/18/2024 9:15 AM FISH SEINER Appointment [facility]hab [address] [place] [address] [place] [address] [place] [address] Lorene Branch, CHILD DEVELOPMENT ASSISTANT 03/22/2024 9:00 AM FISH SEINER Appointment [facility]hab [address] [place] [address] [place] [address] [place] [address] Lorene Branch, CHILD DEVELOPMENT ASSISTANT 03/25/2024 9:15 AM FISH SEINER Appointment [facility]hab [address] [place] [address] [place] [address] [place] [address] Lorene Branch, CHILD DEVELOPMENT ASSISTANT 04/21/2024 11:20 AM FISH SEINER Office Visit [facility] Family & Internal Medicine - [address] [address] [place] [address] [place] [address] Scheduled Procedures Name Priority Associated Diagnoses Date/Ti me MANIPULATION SHOULDER Adhesive capsulitis of left shoulder 03/02/2024 12:27 PM FISH SEINER INJECTION JOINT Adhesive capsulitis of left shoulder 03/02/2024 12:27 PM FISH SEINER documented as of this encounter Visit Diagnoses Not on filedocumented in this encounter Additional Health Concerns Assessment Noted Time PHQ-9 Depression Total Score: 024 3:24 PM CDT documented as of this encounter Care Teams Curb Setter Helper Relationship Specialty [place] [address] [place] [address] PCP - General Physician Hand Candle Dipper Medical 09/16/23 documented as of this encounter
--- OUTSIDE RECORDS SUMMARY | 2024-02-12 03:29 | XMS_ITS | Encounter Summary ---
Author Organization [facility] Address [facility]6 [facility] [place] [address] [place] [address] Care Team Providers Care Refining Engineer Name Role Phone Holger Soriano Primary Care Provider [phone] Encounter Details Date Type Department Care Team (Latest Contact Info) Description 11/27/2023 Travel Social History Tobacco Use Types Packs/Day [...] st Contact Info) Description 02/12/2024 9:00 AM BORING MACHINE OPERATOR HORIZONTAL Appointment [facility]hab [address] [place] [address] [place] [address] [place] [address] [place] [address] [place] [address] 02/12/2024 2:00 PM BORING MACHINE OPERATOR HORIZONTAL Appointment [facility] MRI [address] [place] [address] [place] [address] [place] [address] 02/16/2024 9:00 AM BORING MACHINE OPERATOR HORIZONTAL Appointment [facility]patient Rehab [address] [place] [address] [place] [address] [place] [address] [place] [address] [place] [address] 02/19/2024 8:45 AM BORING MACHINE OPERATOR HORIZONTAL Appointment [facility]patient Rehab [address] [place] [address] [place] [address] [place] [address] [place] [address] [place] [address] 02/19/2024 9:00 AM BORING MACHINE OPERATOR HORIZONTAL Appointment [facility] Outpatient Rehab [address] [place] [address] [place] [address] [place] [address] [place] [address] [place] [address] 02/23/2024 9:00 AM BORING MACHINE OPERATOR HORIZONTAL Appointment [facility]patient [facility]hab [address] [place] [address] [place] [address] [place] [address] [place] [address] [place] [address] 02/24/2024 1:30 PM BORING MACHINE OPERATOR HORIZONTAL Appointment [facility] [address] [place] [address] [place] [address] [place] [address] 02/26/2024 9:00 AM BORING MACHINE OPERATOR HORIZONTAL Appointment [facility]patient [facility]hab [address] [place] [address] [place] [address] [place] [address] [place] [address] [place] [address] 02/26/2024 9:15 AM BORING MACHINE OPERATOR HORIZONTAL Appointment [facility]patient Rehab [address] [place] [address] [place] [address] [place] [address] [place] [address] [place] [address] 03/01/2024 9:00 AM BORING MACHINE OPERATOR HORIZONTAL Appointment [facility] Outpatient Rehab [address] [place] [address] [place] [address] [place] [address] [place] [address] [place] [address] Lorene Branch, CUT IN STATION OPERATOR 03/02/2024 12:27 PM BORING MACHINE OPERATOR HORIZONTAL Hospital Encounter [facility] [id number] [place] [address] [place] [address] [place] [address] 03/02/2024 12:27 PM BORING MACHINE OPERATOR HORIZONTAL - 03/02/2024 1:07 PM BORING MACHINE OPERATOR HORIZONTAL Surgery [address] [address] [place] [address] [place] [address] MANIPULATION SHOULDER 03/05/2024 9:00 AM BORING MACHINE OPERATOR HORIZONTAL Appointment [facility] [address] [place] [address] [place] [address] [place] [address] Lorene Branch, CUT IN STATION OPERATOR 03/08/2024 9:00 AM BORING MACHINE OPERATOR HORIZONTAL Appointment [facility] [address] [place] [address] [place] [address] [place] [address] Lorene Branch, CUT IN STATION OPERATOR 03/11/2024 9:15 AM BORING MACHINE OPERATOR HORIZONTAL Appointment [facility] [address] [place] [address] [place] [address] [place] [address] Lorene Branch, CUT IN STATION OPERATOR 03/15/2024 9:00 AM BORING MACHINE OPERATOR HORIZONTAL Appointment [facility] [address] [place] [address] [place] [address] [place] [address] Lorene Branch, CUT IN STATION OPERATOR 03/18/2024 9:15 AM BORING MACHINE OPERATOR HORIZONTAL Appointment [facility] [address] [place] [address] [place] [address] [place] [address] Lorene Branch, CUT IN STATION OPERATOR 03/22/2024 9:00 AM BORING MACHINE OPERATOR HORIZONTAL Appointment [facility] [address] [place] [address] [place] [address] [place] [address] Lorene Branch, CUT IN STATION OPERATOR 03/25/2024 9:15 AM BORING MACHINE OPERATOR HORIZONTAL Appointment [facility] [address] [place] [address] [place] [address] [place] [address] Lorene Branch, CUT IN STATION OPERATOR 04/21/2024 11:20 AM BORING MACHINE OPERATOR HORIZONTAL Office Visit [facility] Medical Group Family & Internal Medicine - [address] [address] [place] [address] [place] [address] Scheduled Procedures Name Priority Associated Diagnoses Date/Ti me MANIPULATION SHOULDER Adhesive capsulitis of left shoulder 03/02/2024 12:27 PM BORING MACHINE OPERATOR HORIZONTAL INJECTION JOINT Adhesive capsulitis of left shoulder 03/02/2024 12:27 PM BORING MACHINE OPERATOR HORIZONTAL documented as of this encounter Visit Diagnoses Not on filedocumented in this encounter Additional Health Concerns Assessment Noted Time PHQ-9 Depression Total Score: 024 3:24 PM CDT documented as of this encounter Care Teams Refining Engineer Relationship Specialty [place] [address] [place] [address] PCP - General Physician Warp Tension Tester Medical 09/16/23 documented as of this encounter
--- OUTSIDE RECORDS SUMMARY | 2024-02-12 03:29 | XMS_ITS | Encounter Summary ---
Author Organization [facility] Address [facility]6 [facility] [place] [address] [place] [address] Care Team Providers Care Engineer Systems Name Role Phone Holger Soriano Primary Care Provider [phone] Encounter Details Date Type Department Care Team (Latest Contact Info) Description 12/08/2023 Travel Social History Tobacco Use Types Packs/Day [...] st Contact Info) Description 02/12/2024 9:00 AM TAKE OFF MAN Appointment [facility]hab [address] [place] [address] [place] [address] [place] [address] [place] [address] [place] [id number] 02/12/2024 2:00 PM TAKE OFF MAN Appointment [facility] MRI [address] [place] [address] [place] [address] [place] [address] 02/16/2024 9:00 AM TAKE OFF MAN Appointment [facility]hab [address] [place] [address] [place] [address] [place] [address] [place] [address] [place] [address] 02/19/2024 8:45 AM TAKE OFF MAN Appointment [facility]hab [address] [place] [address] [place] [address] [place] [address] [place] [address] [place] [address] 02/19/2024 9:00 AM TAKE OFF MAN Appointment [facility]hab [address] [place] [address] [place] [address] [place] [address] [place] [address] [place] [address] 02/23/2024 9:00 AM TAKE OFF MAN Appointment [facility]hab [address] [place] [address] [place] [address] [place] [address] [place] [address] [place] [address] 02/24/2024 1:30 PM TAKE OFF MAN Appointment [facility] [address] [place] [address] [place] [address] [place] [address] 02/26/2024 9:00 AM TAKE OFF MAN Appointment [facility] [address] [place] [address] [place] [address] [place] [address] [place] [address] [place] [address] 02/26/2024 9:15 AM TAKE OFF MAN Appointment [facility] [address] [place] [address] [place] [address] [place] [address] [place] [address] [place] [address] 03/01/2024 9:00 AM TAKE OFF MAN Appointment [facility] [address] [place] [address] [place] [address] [place] [address] [place] [address] [place] [address] Lorene Branch, EXECUTIVE SALES ASSISTANT 03/02/2024 12:27 PM TAKE OFF MAN Hospital Encounter [facility] [id number] [place] [address] [place] [address] [place] [address] 03/02/2024 12:27 PM TAKE OFF MAN - 03/02/2024 1:07 PM TAKE OFF MAN Surgery [address] [address] [place] [address] [place] [address] MANIPULATION SHOULDER 03/05/2024 9:00 AM TAKE OFF MAN Appointment [facility] [address] [place] [address] [place] [address] [place] [address] Lorene Branch, EXECUTIVE SALES ASSISTANT 03/08/2024 9:00 AM TAKE OFF MAN Appointment [facility] [address] [place] [address] [place] [address] [place] [address] Lorene Branch, EXECUTIVE SALES ASSISTANT 03/11/2024 9:15 AM TAKE OFF MAN Appointment [facility] [address] [place] [address] [place] [address] [place] [address] Lorene Branch, EXECUTIVE SALES ASSISTANT 03/15/2024 9:00 AM TAKE OFF MAN Appointment [facility] [address] [place] [address] [place] [address] [place] [address] Lorene Branch, EXECUTIVE SALES ASSISTANT 03/18/2024 9:15 AM TAKE OFF MAN Appointment [facility] [address] [place] [address] [place] [address] [place] [address] Lorene Branch, EXECUTIVE SALES ASSISTANT 03/22/2024 9:00 AM TAKE OFF MAN Appointment [facility] [address] [place] [address] [place] [address] [place] [address] Lorene Branch, EXECUTIVE SALES ASSISTANT 03/25/2024 9:15 AM TAKE OFF MAN Appointment [facility] [address] [place] [address] [place] [address] [place] [address] Lorene Branch, EXECUTIVE SALES ASSISTANT 04/21/2024 11:20 AM TAKE OFF MAN Office Visit [facility] Medical Group Family & Internal Medicine - [address] [address] [place] [address] [place] [address] Scheduled Procedures Name Priority Associated Diagnoses Date/Ti me MANIPULATION SHOULDER Adhesive capsulitis of left shoulder 03/02/2024 12:27 PM TAKE OFF MAN INJECTION JOINT Adhesive capsulitis of left shoulder 03/02/2024 12:27 PM TAKE OFF MAN documented as of this encounter Visit Diagnoses Not on filedocumented in this encounter Additional Health Concerns Assessment Noted Time PHQ-9 Depression Total Score: 024 3:24 PM CDT documented as of this encounter Care Teams Engineer Systems Relationship Specialty [place] [address] [place] [address] PCP - General Physician Geochemist Medical 09/16/23 documented as of this encounter
--- OUTSIDE RECORDS SUMMARY | 2024-02-12 03:29 | XMS_ITS | Encounter Summary ---
Author Organization [facility] Address [facility]6 [facility]. [place], [place] [address] [place] [address] Care Team Providers Care Fur Examiner Name Role Phone Holger Soriano Primary Care Provider [phone] Encounter Details Date Type Department Care Team (Late st Contact Info) Description 11/28/2023 Handpay Message Enc [facility] Medical Group Family & Internal Medicine [facility] [address] [place] [address] [facility], [facility] Provider medication Social History Tobacco Use Types Packs/Day Years [...] Encounters Date Type Department Care Team (Late Contact Info) Description 02/12/2024 9:00 AM INSOLE CEMENTER Appointment [facility] Outpatient Rehab [address] [place] [address] [place] [address] [place] [address] [place] [address] [place] [address] 02/12/2024 2:00 PM INSOLE CEMENTER Appointment [facility] [place] [address] [place] [address] [place] [address] [place] [address] 02/16/2024 9:00 AM INSOLE CEMENTER Appointment [facility] Outpatient Rehab [address] [place] [address] [place] [address] [place] [address] [place] [address] [place] [address] 02/19/2024 8:45 AM INSOLE CEMENTER Appointment [facility] Outpatient Rehab [address] [place] [address] [place] [address] [place] [address] [place] [address] [place] [address] 02/19/2024 9:00 AM INSOLE CEMENTER Appointment [facility] Outpatient Rehab [address] [place] [address] [place] [address] [place] [address] [place] [address] [place] [address] 02/23/2024 9:00 AM INSOLE CEMENTER Appointment [facility] Outpatient Rehab [address] [place] [address] [place] [address] [place] [address] [place] [address] [place] [address] 02/24/2024 1:30 PM INSOLE CEMENTER Appointment [address] [address] Ihsan Logan [address] [place] [address] 02/26/2024 9:00 AM INSOLE CEMENTER Appointment [facility] Outpatient Rehab [address] [place] [address] [place] [address] [place] [address] [place] [address] [place] [address] 02/26/2024 9:15 AM INSOLE CEMENTER Appointment [facility] Outpatient Rehab [address] [place] [address] [place] [address] [place] [address] [place] [address] [place] [address] 03/01/2024 9:00 AM INSOLE CEMENTER Appointment [facility] Outpatient Rehab [address] [place] [address] [place] [address] [place] [address] [place] [address] [place] [address] Lorene Branch, NAIL MAKING MACHINE TENDER 03/02/2024 12:27 PM INSOLE CEMENTER Hospital Encounter [facility] [address] [place] [address] [place] [address] [place] [address] 03/02/2024 12:27 PM INSOLE CEMENTER - 03/02/2024 1:07 PM INSOLE CEMENTER Surgery [facility] Surgery [address] [place] [address] [place] [address] [place] [address] MANIPULATION SHOULDER 03/05/2024 9:00 AM INSOLE CEMENTER Appointment [facility] Outpatient Rehab [address] [place] [address] [place] [address] [place] [address] Lorene Branch, NAIL MAKING MACHINE TENDER 03/08/2024 9:00 AM INSOLE CEMENTER Appointment [facility] Outpatient Rehab [address] [place] [address] [place] [address] [place], [place] [address] Lorene Branch, NAIL MAKING MACHINE TENDER 03/11/2024 9:15 AM INSOLE CEMENTER Appointment [facility] Outpatient Rehab [address] [place] [address] [place] [address] [place] [address] Lorene Branch, NAIL MAKING MACHINE TENDER 03/15/2024 9:00 AM INSOLE CEMENTER Appointment [facility] Outpatient Rehab [address] [place] [address] [place] [address] [place] [address] Lorene Branch, NAIL MAKING MACHINE TENDER 03/18/2024 9:15 AM INSOLE CEMENTER Appointment [facility] Outpatient Rehab [address] [place] [address] [place] [address] [place] [address] Lorene Branch, NAIL MAKING MACHINE TENDER 03/22/2024 9:00 AM INSOLE CEMENTER Appointment [facility] Outpatient Rehab [address] [place] [address] [place] [address] [place] [address] Lorene Branch, NAIL MAKING MACHINE TENDER 03/25/2024 9:15 AM INSOLE CEMENTER Appointment [facility] Outpatient Rehab [address] [place] [address] [place] [address] [place] [address] Lorene Branch, NAIL MAKING MACHINE TENDER 04/21/2024 11:20 AM INSOLE CEMENTER Office Visit [facility] Medical Group Family & Internal Medicine [facility] [address] [place] [address] [place] [address] [place] [address] Scheduled Procedures Name Priority Associated Diagnoses Date/Ti me MANIPULATION SHOULDER Adhesive capsulitis of left shoulder 03/02/2024 12:27 PM INSOLE CEMENTER INJECTION JOINT Adhesive capsulitis of left shoulder 03/02/2024 12:27 PM INSOLE CEMENTER documented as of this encounter Visit Diagnoses Not on filedocumented in this encounter Additional Health Concerns Infection Onset Date Last Indicated Resolved Time COVID-19 Rule Out 12/29/2023 12/29/2023 12/29/2023 12:59 PM INSOLE CEMENTER Assessment Noted Time PHQ-9 Depression Total Score: 024 3:24 PM CDT documented as of this encounter Care Teams Fur Examiner Relationship Specialty [place] [address] [place] [address] PCP - General Physician Roentgenology Teacher Medical 09/16/23 documented as of this encounter
--- OUTSIDE RECORDS SUMMARY | 2024-02-12 03:29 | XMS_ITS | Encounter Summary ---
Author Organization [facility] Address [facility]6 [place] [address] [place] [address] Care Team Providers Care Radiation Engineer Name Role Phone Holger Soriano Primary Care Provider [phone] Encounter Details Date Type Department Care Team (Latest Contact Info) Description 12/18/2023 Travel Social History Tobacco Use Types Packs/Day [...] st Contact Info) Description 02/12/2024 9:00 AM WOMEN'S SOCCER COACH Appointment [facility] Outpatient Rehab [address] [place] [address] [place] [address] [place] [address] [place] [address] [place] [address] 02/12/2024 2:00 PM WOMEN'S SOCCER COACH Appointment [facility] MRI [address] [place] [address] [place] [address] [place] [address] 02/16/2024 9:00 AM WOMEN'S SOCCER COACH Appointment [facility] Outpatient Rehab [address] [place] [address] [place] [address] [place] [address] [place] [address] [place] [address] 02/19/2024 8:45 AM WOMEN'S SOCCER COACH Appointment [facility] Outpatient Rehab [address] [place] [address] [place] [address] [place] [address] [place] [address] [place] [address] 02/19/2024 9:00 AM WOMEN'S SOCCER COACH Appointment [facility] Outpatient Rehab [address] [place] [address] [place] [address] [place] [address] [place] [address] [place] [address] 02/23/2024 9:00 AM WOMEN'S SOCCER COACH Appointment [facility] Outpatient Rehab [address] [place] [address] [place] [address] [place] [address] [place] [address] [place] [address] 02/24/2024 1:30 PM WOMEN'S SOCCER COACH Appointment [facility] [address] [place] [address] [place] [address] [place] [address] 02/26/2024 9:00 AM WOMEN'S SOCCER COACH Appointment [facility] Outpatient Rehab [address] [place] [address] [place] [address] [place] [address] [place] [address] [place] [address] 02/26/2024 9:15 AM WOMEN'S SOCCER COACH Appointment [facility]patient Rehab [address] [place] [address] [place] [address] [place] [address] [place] [address] [place] [address] 03/01/2024 9:00 AM WOMEN'S SOCCER COACH Appointment [facility]patient [facility]hab [address] [place] [address] [place] [address] [place] [address] [place] [address] [place] [address] Lorene Branch, TELEVISION SCHEDULE COORDINATOR 03/02/2024 12:27 PM WOMEN'S SOCCER COACH Hospital Encounter [facility] [address] [place] [address] [place] [address] [place] [address] 03/02/2024 12:27 PM WOMEN'S SOCCER COACH - 03/02/2024 1:07 PM WOMEN'S SOCCER COACH Surgery [address] [address] [place] [address] [place] [address] MANIPULATION SHOULDER 03/05/2024 9:00 AM WOMEN'S SOCCER COACH Appointment [facility] Out[facility]hab [address] [place] [address] [place] [address] [place] [address] Lorene Branch, TELEVISION SCHEDULE COORDINATOR 03/08/2024 9:00 AM WOMEN'S SOCCER COACH Appointment [facility] [address] [place] [address] [place] [address] [place] [address] Lorene Branch, TELEVISION SCHEDULE COORDINATOR 03/11/2024 9:15 AM WOMEN'S SOCCER COACH Appointment [facility]hab [address] [place] [address] [place] [address] [place] [address] Lorene Branch, TELEVISION SCHEDULE COORDINATOR 03/15/2024 9:00 AM WOMEN'S SOCCER COACH Appointment [facility] [address] [place] [address] [place] [address] [place] [address] Lorene Branch, TELEVISION SCHEDULE COORDINATOR 03/18/2024 9:15 AM WOMEN'S SOCCER COACH Appointment [facility] [address] [place] [address] [place] [address] [place] [address] Lorene Branch, TELEVISION SCHEDULE COORDINATOR 03/22/2024 9:00 AM WOMEN'S SOCCER COACH Appointment [facility] [address] [place] [address] [place] [address] [place] [address] Lorene Branch, TELEVISION SCHEDULE COORDINATOR 03/25/2024 9:15 AM WOMEN'S SOCCER COACH Appointment [facility] [address] [place] [address] [place] [address] [place] [address] Lorene Branch, TELEVISION SCHEDULE COORDINATOR 04/21/2024 11:20 AM WOMEN'S SOCCER COACH Office Visit [facility] Medical Group Family & Internal Medicine - [address] [address] [place] [address] [place] [address] Scheduled Procedures Name Priority Associated Diagnoses Date/Ti me MANIPULATION SHOULDER Adhesive capsulitis of left shoulder 03/02/2024 12:27 PM WOMEN'S SOCCER COACH INJECTION JOINT Adhesive capsulitis of left shoulder 03/02/2024 12:27 PM WOMEN'S SOCCER COACH documented as of this encounter Visit Diagnoses Not on filedocumented in this encounter Additional Health Concerns Assessment Noted Time PHQ-9 Depression Total Score: 024 3:24 PM CDT documented as of this encounter Care Teams Radiation Engineer Relationship Specialty [place] [address] [place] [address] PCP - General Physician Phototypesetter Operator Medical 09/16/23 documented as of this encounter
--- OUTSIDE RECORDS SUMMARY | 2024-02-12 03:29 | XMS_ITS | Encounter Summary ---
Author Organization [facility] Address [facility]6 [facility]. [place], [place] [id number] [place] [id number] Care Team Providers Care Placement Secretary Name Role Phone Holger Soriano Primary Care Provider [phone] Reason for Visit * Reason Comments Back Pain * Physical Medicine (Urgent) - Authorized Specialty Diagnoses / Procedures Referred By Contac t Referred To Contact PHYSICAL THERAPY Diagnoses Left shoulder pain Low back pain Procedures OFFICE/OUTPATIENT NEW LOW MDM 30-44 MINUTES OFFICE/OUTPT VISIT,NEW,LEVL IV OFFICE/OUTPT VISIT,NEW,LEVL V OFFICE/OUTPT VISIT,EST,LEVL III OFFICE/OUTPT VISIT,EST,LEVL IV OFFICE/OUTPT VISIT,[place] [address] [place] [address] Phone: tel: fax: [facility] [address] [place] [address] Phone: tel: fax: Referral ID Status Reason Start Date Expiration Date Visits Requested Visits Authorized [id number] Authorized Physical Therapy 10/13/2023 11/11/2024 99 99 Encounter Details Date Type Department Care Team (Latest Contact Info) Description 12/29/2023 10:15 AM HOTEL LOBBY [facility]CIERGE - 12/29/2023 1:32 PM [facility]EL [facility] Hospital Encounter [facility] [address] [place] [address] [place] [address] [place] [address] [place] [address] [place] [address] Back Pain Discharge Disposition: Home or Self [...] Progress Notes * Padmaja Marie, PT - 12/29/2023 10:15 AM CST Physical Therapy Visit Note: Patient Name: Oumou Middleton Diagnosis: Left shoulder pain (primary encounter diagnosis) SUBJECTIVE Therapy Visit Start Time: 1018 Stop Time: 1130 Time Calculation (min): 72 min Treatment Day: 14 for SH/4 for LB Total Approved Visits: [...] exacerbated early Oct. 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[employer] Job Duties: Has help at work to lift things currently Subjective Note: Pt reports that she feels like she has french splints [place] the [place]. Not surewhy because she walks on the treadmill, stairmaster, leg press for exercise. Legs are really hurting, R worse than L today. Started hurting within an hour of her being there but then was there for about 7 hours. Also has another sinus infection so going to the walk in clinic after this. Also getting her ECG done in the ED after her appt today. Compliance to Home Program: yes Reported Falls since last visit: no Medications changes since last visit : no OBJECTIVE Treatment provided today: Objective Observation: DF strength grossly 3 to 3+/5 bilaterally - increased pain and tearful with testing Therapeutic Exercise - 74586 Number of Minutes - 66872: 57 Supine (Reps/Sets): HOLDING ON SHOULDER TX UNTIL MANIPULATION 01/07 Exercise: hip IR/ER PROM in supine x 10 each (slow,gentle, longer holds into IR) (MHP to opposite french during) Exercise: supine with MHP to low back, LEs on orange SB: LTR, distraction, DKTC x 15 (MHP to shins during also) Exercise: supine with MHP to low back: hamstring stretching 20 x 3 each, held- gentle sciatic nerve glides x 5 each LE Exercise: slant board L3 x 2 min Exercise: gentle ankle PF/DF ROM, long holds (LE resting on orange SB and MHP to shins) x 5, 20 holds each (performed today due to french pain) Manual Therapy - 17396 Number of Minutes - 33854: 15 Myofascial Release: upper trap, levator L Intervention: TDN not included in time / charge Education Was Education Provided: Yes Topic: ther ex Recipient: Patient Method: Demonstration, Verbal Response: Verbalized understanding, Asked questions ASSESSMENT Assessment Note: Pt notes pain relief with use of MHP and gentle ROM to B shins today. However she notes increased pain again upon standing back up and pivoting to turn while walking. Ongoing L hip pain with R hamstring and ROT PROM stretches today. No increased L hip pain with L hamstring stretch, actually feels relief of pain. Goal Progression: ongoing Continue on Functional Deficit of: L shoulder pain with dressing, bathing, work, sleep PLAN Plan Next Visit Plan: continue PT per POC Total Time Total Time in Minutes: 72 Timed Code Treatment Minutes : 72 L LOBBY CONCIERGE documented in this encounter Plan of Treatment Upcoming Encounters Date Type Department Care Team (Late st Contact Info) Description 02/12/2024 9:00 AM [facility] Appointment [facility] [address] [place] [address] [place] [address] [place] [address] [place] [address] [place] [address] 02/12/2024 2:00 PM [facility] Appointment [facility] MRI [address] [place] [address] [place] [address] [place] [address] 02/16/2024 9:00 AM [facility] Appointment [facility] [address] [place] [address] [place] [address] [place] [address] [place] [address] [place] [address] 02/19/2024 8:45 AM [facility]ER[facility] Appointment [facility] [address] [place] [address] [place] [address] [place] [address] [place] [address] [place] [address] 02/19/2024 9:00 AM [facility] Appointment [facility] [address] [place] [address] [place] [address] [place] [address] [place] [address] [place] [address] 02/23/2024 9:00 AM [facility] Appointment [facility] [address] [place] [address] [place] [address] [place] [address] [place] [address] [place] [address] 02/24/2024 1:30 PM [facility] Appointment [facility] MRI [address] [place] [address] Desmond IhsnaDO [address] [place] [address] 02/26/2024 9:00 AM [facility]CIER[facility] Appointment [facility] [address] [place] [address] [place] [address] [place] [address] [place] [address] [place] [address] 02/26/2024 9:15 AM [facility]EL [facility] CONCIER[facility] Appointment [facility] [address] [place] [address] [place] [address] [place] [address] [place] [address] [place] [address] 03/01/2024 9:00 AM [facility]ER[facility] Appointment [facility] [address] [place] [address] [place] [address] [place] [address] [place] [address] [place] [address] Lorene Branch, DRESS DESIGNER 03/02/2024 12:27 PM [facility] Hospital Encounter [facility] [address] [place] [address] [place] [address] [place] [address] 03/02/2024 12:27 PM [facility]OTEL [facility]CIER[facility] - 03/02/2024 1:07 PM HOTEL [facility]BY CON[facility]ER[facility] Surgery [facility] [address] [place] [address] [place] [address] [place] [address] MANIPULATION SHOULDER 03/05/2024 9:00 AM HOTEL LOBBY CONCIER[facility] Appointment [facility] [address] [place] [address] [place] [address] [place] [address] Lorene Branch, DRESS DESIGNER 03/08/2024 9:00 AM HOTEL [facility]CIER[facility] Appointment [facility] [address] [place] [address] [place] [address] [place] [address] Lorene Branch, DRESS DESIGNER 03/11/2024 9:15 AM [facility]EL [facility]CIER[facility] Appointment [facility] [address] [place] [address] [place] [address] [place] [address] Lorene Branch, DRESS DESIGNER 03/15/2024 9:00 AM [facility]ER[facility] Appointment [facility] [address] [place] [address] [place] [address] [place] [address] Lorene Branch, DRESS DESIGNER 03/18/2024 9:15 AM [facility]BY CONCIER[facility] Appointment [facility] [address] [place] [address] [place] [address] [place] [address] Lorene Branch, DRESS DESIGNER 03/22/2024 9:00 AM [facility]CIER[facility] Appointment [facility] [address] [place] [address] [place] [address] [place] [address] Lorene Branch, DRESS DESIGNER 03/25/2024 9:15 AM HOTEL L[facility]BY CONCIER[facility] Appointment [facility] [address] [place] [address] [place] [address] [place] [address] Lorene Branch, DRESS DESIGNER 04/21/2024 11:20 AM HOTEL [facility] CONCIER[facility] Office Visit [facility] [address] [phone] [place] [address] [place] [address] Scheduled Procedures Name Priority Associated Diagnoses Date/Ti me MANIPULATION SHOULDER Adhesive capsulitis of left shoulder 03/02/2024 12:27 PM [facility] INJECTION JOINT Adhesive capsulitis of left shoulder 03/02/2024 12:27 PM HOTEL [facility]BY CONCIERGE documented as of this encounter Visit Diagnoses Diagnosis Left shoulder pain- Primary Pain in joint, shoulder region Adhesive capsulitis of left shoulder Adhesive capsulitis of shoulder documented in this encounter Additional Health Concerns Infection Onset Date Last Indicated Resolved Time COVID-19 Rule Out 12/29/2023 12/29/2023 12/29/2023 12:59 PM [facility] Assessment Noted Time PHQ-9 Depression Total Score: 024 3:24 PM CDT documented as of this encounter Care Teams Placement Secretary Relationship Specialty [place] [address] [place] [address] PCP - General Physician [facility] 09/16/23 documented as of this encounter
--- OUTSIDE RECORDS SUMMARY | 2024-02-12 03:29 | XMS_ITS | Encounter Summary ---
Author Organization [facility] Address [facility]. [place], [place] [address] [place] [address] Care Team Providers Care Deputy United [place] Marshal Name Role Phone Holger Soriano Primary Care Provider [phone] Reason for Referral * Consultation/Treatment (Routine) - New Request Specialty Diagnoses / Procedures Referred By Contac t Referred To Contact PAIN MANAGEMENT / [facility] Pain Management Diagnoses Chronic left shoulder pain Procedures OFFICE/OUTPATIENT NEW LOW MDM 30-44 MINUTES OFFICE/OUTPT VISIT,NEW,LEVL IV OFFICE/OUTPT VISIT,NEW,LEVL V OFFICE/OUTPT VISIT,EST,LEVL III OFFICE/OUTPT VISIT,EST,LEVL IV OFFICE/OUTPT VISIT,[place] [address] [place] [address] Phone: tel: fax: Lor Welch MD [facility] [address] [place] [address] Phone: tel: fax: Referral ID Status Reason Start Date Expiration Date Visits Requested Visits Authorized [id number] New Request Specialty Services 12/21/2024 1 1 * Surgical (Routine) - Authorized Specialty Diagnoses / Procedures Referred By Contac t Referred To Contact SURGERY Diagnoses Encounter for screening colonoscopy Rectal prolapse Procedures OFFICE/OUTPATIENT NEW LOW MDM 30-44 MINUTES OFFICE/OUTPT VISIT,NEW,LEVL IV OFFICE/OUTPT VISIT,NEW,LEVL V OFFICE/OUTPT VISIT,EST,LEVL III OFFICE/OUTPT VISIT,EST,LEVL IV OFFICE/OUTPT VISIT,EST,[place] [address] [place] [address] Phone: tel: [place]: [place] [address] [facility] [address] [place] [address] Phone: tel: fax: Referral ID Status Reason Start Date Expiration Date V isits Requested Visits Authorized [id number] Authorized 12/22/2023 01/21/2025 99 99 Reason for Visit * Reason Comments Follow Up 3 month follow up Diabetes Encounter Details Date Type Department Care Team (Late st Contact Info) Description 12/22/2023 2:20 PM CDT Office Visit [facility] Medical Group Family & Internal Medicine [facility] [id number] [place] [phone] [place] [address] [place] [address] Follow Up (3 month follow up); Diabetes Social History Tobacco Use Types Packs/Day Years [...] Sign Reading Time Taken Comments Blood Pressure 124/63 12/22/2023 1:59 PM CDT Pulse 77 12/22/2023 1:59 PM CDT Temperature 36.8 ??C (98.2 ??F) 12/22/2023 1:59 PM CD T Respiratory Rate 16 12/22/2023 1:59 PM CDT Oxygen Saturation 97% 12/22/2023 1:59 PM CDT Inhaled Oxygen Concentration - - Weight 86.6 kg (191 lb) 12/22/2023 1:59 PM CDT Height 157.5 cm (5' 2 ) 12/22/2023 1:59 PM CDT Body Mass Index 34.93 12/22/2023 1:59 PM CDT documented in this encounter Patient Instructions * Patient Instructions* TYLER Weaver - 12/22/2023 2:20 PM CDT Zeasorb powder use twice Night splints for carpal tunnel Increase ozempic after finishing 1mg documented in this encounter Progress Notes * TYLER Weaver - 12/22/2023 2:20 PM CDT Reason for Visit: Follow Up (3 month follow up) and Diabetes History of Present Illness: 48-year-old female here for 3-month follow-up on multiple medical problems 1. Diabetes: Hemoglobin A1c 5.2 stable from last appointment. She is on 1 mg of Ozempic. The patient has history of morbid obesity weighing over 400 pounds and now weighs 190 but has been stable herefor at least 3 years. Will try to increase Ozempic to help with weight loss as well as manage her diabetes. Patient has 2 mg at home to start after finishing the 1 mg doses that she has now. 2. Chronic left shoulder pain. She is seeing Dr. Logan orthopedic surgeon today for follow-up on her MRI of her neck which was essentially normal she did have 1 broad-based disc bulging but not impinging on any neural foramen. She is seeing physical therapy as well. She has muscle spasm in the trap that seems to be entrapping a nerve. Recommend pain management referral and/or dry needling which physical therapy can do downstairs. She will see them on and mention that to them at that appointment. Will also have her take gabapentin 600 mg nightly. She states she was taking 300 mg nightly and it would wear off. Still having trouble sleeping due to the left shoulder pain Pait. 3. Rectal prolapse: Patient states she has had rectal prolapse that is recurring over the last 3 years. Patient states she has mentioned it to several providers and has not gotten anywhere. Also needs a screening colonoscopy as she is 48 years old. Has episodes of constipation and diarrhea. Patientstates rectum sometimes will come out a few inches. And she has to push it back in. Will will referher to a surgeon for the colonoscopy and possible repair of rectal prolapse. 4. Complains of bilateral 3rd through 5th fingers going numb while driving and also waking up at night with those feeling fingers numb. Did not cause pain at this time. She is on meloxicam and is been on this for chronic low back pain. Will have her get night splints use that nightly and follow-up in 1 month. 5. Chronic sweating and skin breakdown underneath her pannus. Due to the massive weight loss of over 200 pounds patient has a large pannus complains of skin breakdown and sores underneath this. She has tried baby powder and other powders in the past. I will have her get Zeasorb to use once or twicea day she can also can also use this underneath her breasts which she is complaining of similar symptoms. Will follow-up in 1 month on this. Follow Up Diabetes ROS: Review of Systems All other systems [...] FOR MUSCLESPASMS, Disp: 90 tablet, Rfl: 0 diazePAM (VALIUM) 5 MG tablet, Take 1 tablet (5 mg total) by mouth every 12 (twelve) hours as needed for Anxiety., Disp: 10 tablet, Rfl: 0 DULoxetine (CYMBALTA) 30 MG capsule, Take 1 capsule (30 mg total) by mouth daily., Disp: 180 capsule, Rfl: 1 estradiol (ESTRACE) 2 MG tablet, Take 1 tablet (2 mg total) by mouth daily., Disp: 28 tablet, Rfl: 2 fluticasone propionate (FLONASE) 50 MCG/ACT nasal spray, 2 sprays by Each Nostril route daily. SHAKE LIQUID, Disp: , Rfl: gabapentin (NEURONTIN) 300 MG capsule, Take 2 capsules (600 mg total) by mouth every evening for 30days., Disp: 60 capsule, Rfl: 1 meloxicam (MOBIC) 15 MG tablet, TAKE 1 TABLET (15 MG TOTAL) BY MOUTH DAILY., Disp: 30 tablet, Rfl: 0 progesterone (PROMETRIUM) 100 MG capsule, take 1 capsule by mouth every day, Disp: 90 capsule, Rfl:1 QUEtiapine (SEROQUEL) 100 MG tablet, Take 1 [...] hour period., Disp: 30 tablet, Rfl: 2 Review of patient's allergies indicates: Allergen Reactions Parada Anaphylaxis Iodine Rash, Hives and Other (see comment) Reaction: Hives, Iodinated Contrast Media Unknown Itching Lidocaine Hives Ranitidine Unknown Risperidone Other (see comment) Reaction: OTHER REACTION Past Medical History: Diagnosis Date ADHD Asthma ([facility]) COPD (chronic obstructive pulmonary disease) ([facility]) History reviewed. No pertinent surgical history. Social History Socioeconomic History Marital status: Tobacco Use Smoking status: Former Current packs/day: 0.00 Types: Cigarettes Quit date: 03/18/2023 Years since quittin.7 Passive exposure: Current Smokeless tobacco: Never Tobacco comments: na Vaping Use Vaping status: Never Used Substance and Sexual Activity Alcohol use: Yes Drug use: Never Comment: na Social History [...] Capillary refill takes less than 2 seconds. Comments: Large abdominal pannus with intertriginous redness. No erosions or skin breakdown at thistime. No evidence of fungal infection at this time. Neurological: Mental Status: She is alert. Psychiatric: Mood and Affect: Mood normal. Behavior: Behavior normal. Thought Content: Thought content normal. Judgment: Judgment normal. Filed Vitals: 12/22/23 1359 BP: 124/63 Pulse: 77 Resp: 16 Temp: 98.2 ??F (36.8 ??C) TempSrc: Core SpO2: 97% Weight: 86.6 kg (191 lb) Height: 1.575 m (5' 2 ) Results for orders placed or performed in visit on 12/22/23 A1C (BACK OFFICE) Result Value Ref Range HGB A1C 5.2 % Diagnoses/Impression: 1. Type 2 diabetes mellitus without complication, without long-term current use of insulin ([facility]) A1C (BACK OFFICE) COLLECT.CAPILLARY (FNGR,HEEL,EAR) 2. Encounter for screening colonoscopy Ambulatory referral to General Surgery (OTHER) CANCELED: Ambulatory referral to Gastroenterology (OTHER) 3. Chronic left shoulder pain gabapentin (NEURONTIN) 300 MG capsule Ambulatory Referral to Pain Management 4. Other muscle spasm cyclobenzaprine (FLEXERIL) 10 MG tablet 5. Rectal prolapse Ambulatory referral to General Surgery (OTHER) 6. Bilateral carpal tunnel syndrome Recommendations and Plan: Medications as directed. 600 mg gabapentin nightly. Will follow-up in 1 month Ozempic increased to 2 mg after finishing 1 mg weekly. Referrals to general surgery for colonoscopy and possible repair of rectal prolapse. Referral to pain management for chronic left shoulder pain. Orders Placed This Encounter COLLECT.CAPILLARY (FNGR,HEEL,EAR) A1C (BACK OFFICE) Ambulatory referral to General Surgery (OTHER) Ambulatory Referral to Pain Management gabapentin (NEURONTIN) 300 MG capsule cyclobenzaprine (FLEXERIL) 10 MG tablet Reviewed and updated this visit by provider: Addendum: Dr. Logan would like to do a manipulation under anesthesia for left frozen shoulder. Pt is medically cleared for this procedure. TYLER WEAVER Referring Provider: No ref. provider found PCP: TYLER WEAVER documented in this encounter Plan of Treatment Upcoming Encounters Date Type Department Care Team (Late st Contact Info) Description 02/12/2024 9:00 AM CHIEF OPERATING OFFICER Appointment [facility] [address] [place] [address] [place] [address] [place] [address] [place] [address] [place] [address] 02/12/2024 2:00 PM CHIEF OPERATING OFFICER Appointment [facility] [place] [address] [place] [address] [place] [address] [place] [address] 02/16/2024 9:00 AM CHIEF OPERATING OFFICER Appointment [facility] [address] [place] [address] [place] [address] [place] [address] [place] [address] [place] [address] 02/19/2024 8:45 AM CHIEF OPERATING OFFICER Appointment [facility] [address] [place] [address] [place] [address] [place] [address] [place] [address] [place] [address] 02/19/2024 9:00 AM CHIEF OPERATING OFFICER Appointment [facility] [address] [place] [address] [place] [address] [place] [address] [place] [address] [place] [address] 02/23/2024 9:00 AM CHIEF OPERATING OFFICER Appointment [facility] [address] [place] [address] [place] [address] [place] [address] [place] [address] [place] [address] 02/24/2024 1:30 PM CHIEF OPERATING OFFICER Appointment [facility] [place] [address] [place] [address] Ihsan Logan, [address] [place] [address] 02/26/2024 9:00 AM CHIEF OPERATING OFFICER Appointment [facility] [id number] [place] [address] [place] [address] [place] [address] [place] [address] [place] [address] 02/26/2024 9:15 AM CHIEF OPERATING OFFICER Appointment [facility] [address] [place] [address] [place] [address] [place] [address] [place] [address] [place] [address] 03/01/2024 9:00 AM CHIEF OPERATING OFFICER Appointment [facility] [address] [place] [address] [place] [address] [place] [address] [place] [address] [place] [address] Lorene Branch, WEB SYSTEMS DEVELOPER 03/02/2024 12:27 PM CHIEF OPERATING OFFICER Hospital Encounter [facility] [address] [place] [address] [place] [address] [place] [address] 03/02/2024 12:27 PM CHIEF OPERATING OFFICER - 03/02/2024 1:07 PM CHIEF OPERATING OFFICER Surgery [facility] [address] [place] [address] [place] [address] [place] [address] MANIPULATION SHOULDER 03/05/2024 9:00 AM CHIEF OPERATING OFFICER Appointment [facility] [address] [place] [address] [place] [address] [place] [address] Lorene Branch, WEB SYSTEMS DEVELOPER 03/08/2024 9:00 AM CHIEF OPERATING OFFICER Appointment [facility] [address] [place] [address] [place] [address] [place] [address] Lorene Branch, WEB SYSTEMS DEVELOPER 03/11/2024 9:15 AM CHIEF OPERATING OFFICER Appointment [facility] [address] [place] [address] [place] [address] [place] [address] Lorene Branch, WEB SYSTEMS DEVELOPER 03/15/2024 9:00 AM CHIEF OPERATING OFFICER Appointment [facility] [address] [place] [address] [place] [address] [place] [address] Lorene Branch, WEB SYSTEMS DEVELOPER 03/18/2024 9:15 AM CHIEF OPERATING OFFICER Appointment [facility] [address] [place] [address] [place] [address] [place] [address] Lorene Branch, WEB SYSTEMS DEVELOPER 03/22/2024 9:00 AM CHIEF OPERATING OFFICER Appointment [facility] [address] [place] [address] [place] [address] [place] [address] Lorene Branch, WEB SYSTEMS DEVELOPER 03/25/2024 9:15 AM CHIEF OPERATING OFFICER Appointment [facility] [address] [place] [address] [place] [address] [place] [address] Lorene Branch, WEB SYSTEMS DEVELOPER 04/21/2024 11:20 AM CHIEF OPERATING OFFICER Office Visit [facility] Medical Group Family & Internal Medicine [address] [phone] [place] [address] [place], [place] [id number] Scheduled Procedures Name Priority Associated Diagnoses Date/Ti me MANIPULATION SHOULDER Adhesive capsulitis of left shoulder 03/02/2024 12:27 PM CHIEF OPERATING OFFICER INJECTION JOINT Adhesive capsulitis of left shoulder 03/02/2024 12:27 PM CHIEF OPERATING OFFICER Scheduled Referrals Name Type Priority Associated Diagnoses Orde r Schedule Ambulatory referral to General Surgery (OTHER) Referral Routine Encounter for screening colonoscopy Rectal prolapse Ordered: 12/22/2023 Ambulatory Referral to Pain Management Referral Routine Chronic left shoulder pain Ordered: 12/22/2023 documented as of this encounter Procedures Procedure Name Priority Date/Time Associated Diagnosis Comments COLLECT.CAPILLARY (FNGR,HEEL,EAR) Routine 12/22/2023 2:01 PM CDT Type 2 diabetes mellitus without complication, without long-term current use of insulin ([facility]) HEMOGLOBIN, GLYCOSYLATED Routine 12/22/2023 Type 2 diabetes mellitus without complication, without long-term current use of insulin ([facility]) documented in this encounter Results * A1C (BACK OFFICE) (12/22/2023) HGB A1C 5.2 % [id number] 12/22/2023 us Holger [facility] Final Result Performing Organization Address City/[facility]/ZIP Co de Phone Number [phone] [facility] [address] [place] [address], documented in this encounter Visit Diagnoses Diagnosis Type 2 diabetes mellitus without complication, without long-term current use of insulin ([facility])- Primary Encounter for screening colonoscopy Special screening for malignant neoplasms, colon Chronic left shoulder pain Pain in joint, shoulder region Other muscle spasm Rectal prolapse Bilateral carpal tunnel syndrome Carpal tunnel syndrome Adhesive capsulitis of left shoulder Adhesive capsulitis of shoulder documented in this encounter Additional Health Concerns Assessment Noted Time PHQ-9 Depression Total Score: 024 3:24 PM CDT documented as of this encounter Care Teams Deputy [place] Marshal Relationship Specialty [place] [address] [place] [address] PCP - General Physician Lubricator Granulator Medical 09/16/23 documented as of this encounter
--- OUTSIDE RECORDS SUMMARY | 2024-02-12 03:29 | XMS_ITS | Encounter Summary ---
Author Organization [facility] Address Counts include 234 beds at the [facility]6 [facility] [place] [address] [place] [address] Care Team Providers Care Patient Scheduler Name Role Phone Holger Soriano Primary Care Provider [phone] Reason for Visit * Reason Onset Date Comments Surgery Questions 12/25/2023 Encounter Details Date Type Department Care Team (Late st Contact Info) Description 12/25/2023 Telephone [facility] Medical Group Orthopedic Surgery [facility] [address] [address] [facility] [address] [place], [place] [id number] [place] [address] [place] [address] Surgery Questions Social History Tobacco Use Types Packs/Day Years [...] Progress Notes * Anali Cormier RN - 12/25/2023 12:56 PM CDT Attempted to contact patient. No answer. Left a voice message informing patient that the EKG can bedone on a walk in basis. She needs to go to the outpatient registration portion of the hospital where they can check her in and take her back to have the testing done. Advised to contact our office if she had any further questions or concerns. * Kimberly Langley - 12/25/2023 11:20 AM CDT Patient just came by and showed me her phone messages she got from [facility] that showed appts she did not know about and test for an ECG, she did not know about. Please call her and explain what she needs to do at [phone] documented in this encounter Plan of Treatment Upcoming Encounters Date Type Department Care Team (Late st Contact Info) Description 02/12/2024 9:00 AM BUS DRIVER/MONITOR Appointment [facility] [address] [place] [address] [place] [address] [place] [address] [place] [address] [place], [place] [id number] 02/12/2024 2:00 PM BUS DRIVER/MONITOR Appointment [facility] [address] [place] [address] [place] [address] [place], [place] [id number] 02/16/2024 9:00 AM BUS DRIVER/MONITOR Appointment [facility] [address] [place] [address] [place] [address] [place] [address] [place] [address] [place] [address] 02/19/2024 8:45 AM BUS DRIVER/MONITOR Appointment [facility] [address] [place] [address] [place] [address] [place] [address] [place] [address] [place] [address] 02/19/2024 9:00 AM BUS DRIVER/MONITOR Appointment [facility] [address] [place] [address] [place] [address] [place] [address] [place] [address] [place] [address] 02/23/2024 9:00 AM BUS DRIVER/MONITOR Appointment [facility] [address] [place] [address] [place] [address] [place] [address] [place] [address] [place] [address] 02/24/2024 1:30 PM BUS DRIVER/MONITOR Appointment [facility] [place] [address] [place] [address] [place] [address] [place] [address] 02/26/2024 9:00 AM BUS DRIVER/MONITOR Appointment [facility] [address] [place] [address] [place] [address] [place] [address] [place] [address] [place] [address] 02/26/2024 9:15 AM BUS DRIVER/MONITOR Appointment [facility] [address] [place] [address] [place] [address] [place] [address] [place] [address] [place] [address] 03/01/2024 9:00 AM BUS DRIVER/MONITOR Appointment [facility] [address] [place] [address] [place] [address] [place] [address] [place] [address] [place] [address] oLrene Branch PTA 03/02/2024 12:27 PM BUS DRIVER/MONITOR Hospital Encounter [facility] Surgery [address] [place] [address] [place] [address] [place] [address] 03/02/2024 12:27 PM BUS DRIVER/MONITOR - 03/02/2024 1:07 PM BUS DRIVER/MONITOR Surgery [facility] [address] [place] [address] [place] [address] [place] [address] MANIPULATION SHOULDER 03/05/2024 9:00 AM BUS DRIVER/MONITOR Appointment [facility] Out[facility] [address] [place] [address] [place] [address] [place] [address] Lorene Branch, CEPHALOMETRIC TRACER 03/08/2024 9:00 AM BUS DRIVER/MONITOR Appointment [facility] [address] [place] [address] [place] [address] [place] [address] Lorene Branch, CEPHALOMETRIC TRACER 03/11/2024 9:15 AM BUS DRIVER/MONITOR Appointment [facility] [address] [place] [address] [place] [address] [place] [address] Lorene Branch, CEPHALOMETRIC TRACER 03/15/2024 9:00 AM BUS DRIVER/MONITOR Appointment [facility] [address] [place] [address] [place] [address] [place] [address] Lorene Branch, CEPHALOMETRIC TRACER 03/18/2024 9:15 AM BUS DRIVER/MONITOR Appointment [facility] [address] [place] [address] [place] [address] [place] [address] Lorene Branch, CEPHALOMETRIC TRACER 03/22/2024 9:00 AM BUS DRIVER/MONITOR Appointment [facility] [address] [place] [address] [place] [address] [place] [address] Lorene Branch, CEPHALOMETRIC TRACER 03/25/2024 9:15 AM BUS DRIVER/MONITOR Appointment [facility] [address] [place] [address] [place] [address] [place] [address] Lorene Branch, CEPHALOMETRIC TRACER 04/21/2024 11:20 AM BUS DRIVER/MONITOR Office Visit [facility] Medical Group Family & Internal Medicine [address] [address] [place] [address] [place] [address] Scheduled Procedures Name Priority Associated Diagnoses Date/Ti me MANIPULATION SHOULDER Adhesive capsulitis of left shoulder 03/02/2024 12:27 PM BUS DRIVER/MONITOR INJECTION JOINT Adhesive capsulitis of left shoulder 03/02/2024 12:27 PM BUS DRIVER/MONITOR documented as of this encounter Visit Diagnoses Not on filedocumented in this encounter Additional Health Concerns Assessment Noted Time PHQ-9 Depression Total Score: 24 024 3:24 PM CDT documented as of this encounter Care Teams Patient Scheduler Relationship Specialty [place] [address] [place] [address] PCP - General Physician Artificial Log Machine Operator Medical 09/16/23 documented as of this encounter
--- OUTSIDE RECORDS SUMMARY | 2024-02-12 03:29 | XMS_ITS | Encounter Summary ---
Author Organization [facility] Address [facility]. [place], [place] [address] [place] [address] Care Team Providers Care Telegraph Repeater Mechanic Name Role Phone Holger Soriano Primary Care Provider [phone] Reason for Visit * Reason Comments Shoulder Pain Back Pain * Physical Medicine (Urgent) - Authorized Specialty Diagnoses / Procedures Referred By Shmuel t Referred To Contact PHYSICAL THERAPY Diagnoses Left shoulder pain Low back pain Procedures OFFICE/OUTPATIENT NEW LOW MDM 30-44 MINUTES OFFICE/OUTPT VISIT,NEW,LEVL IV OFFICE/OUTPT VISIT,NEW,LEVL V OFFICE/OUTPT VISIT,EST,LEVL III OFFICE/OUTPT VISIT,EST,LEVL IV OFFICE/OUTPT VISIT,EST,[place] [address] [place] [address] Phone: tel: fax: [facility] [address] [place] [address] Phone: tel: fax: Referral ID Status Reason Start Date Expiration Date Visits Requested Visits Authorized [id number] Authorized Physical Therapy 10/13/2023 11/11/2024 99 99 Encounter Details Date Type Department Care Team (Latest Contact Info) Description 12/02/2023 1:45 PM CDT - 12/02/2023 11:59 PM CDT Hospital Encounter [facility] [address] [place], [place] [id number] [place] [address] [place] [address] Isabela Pedro PTA Shoulder Pain; Back Pain Discharge Disposition: [...] complication, with long-term current use of insulin ([facility]) Take 1 tablet (4 mg total) by mouth every 8 (eight) hours as needed for Nausea. 20 tablet 11/19/2023 4 progesterone (PROMETRIUM) 100 MG capsuleIndication s:Menopausal and female climacteric states take 1 capsule by mouth every day 90 capsule 1 06/10/2023 4 documented as of this encounter Progress Notes * Isabela Pedro PTA - 12/02/2023 1:45 PM CDTEncounter addended by: Isabela Pedro PTA on: 12/02/2023 4:01 PM Actions taken: Flowsheet accepted, Clinical Note Signed, Charge Capture section accepted * Isabela Pedro PTA - 12/02/2023 1:45 PM CDT Physical Therapy Visit Note: Patient Name: Oumou Middleton Diagnosis: Left shoulder pain (primary encounter diagnosis) SUBJECTIVE Therapy Visit Start Time: 1350 Stop Time: 1440 Time Calculation (min): 50 min Treatment Day: 9 for SH/1 for LB (emphasis on L SH this session) Total Approved Visits: 16 per POC for both SH and back Therapy Plan of Care: 2x/week for 8 weeks Current Therapy Orders: eval and tx Diagnosis: L shoulder pain, low back pain Referring Provider: Holger Suarez MD Visit: MRI 12/10/23 Date of Injury: Shoulder- Fell Feb 2023 but pain started in Nov 2022. Low back - exacerbated early Oct. 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[employer], [email or web address] Job Duties: Has help at work to lift things currently Subjective Note: Pt reports that since the weather has gotten colder that her L SH is more limited and painful. She explains that the same thing happened with her R SH when it was frozen previously. Oumou reports her low back is also painful and she was unable to stand up fully this morning when she got outof bed; she explains it was 4-5 minutes before she was able to stand fully erect. She reports having numbness in lateral B LEs. 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 PROM: gentle, slow PROM all planes (with MHP held down with sheet) x 8 min - supine LEs on bolster (pillow under LUE) Exercise: Pulleys scaption, butterfly x 2 min each (longer holds) with MHP Exercise: Wall slides flexion (towel), with light assist from RUE x 10 Exercise: Table slides (longer holds) flexion, scaption x [address] (chair laterally at table) Exercise: SB on table SH flexion and scap x 15 each Exercise: next - Supine cane flex x 10 Exercise: next - pendulums fwd/retro and L/R x 10 ea direction Exercise: joint mobs - next Exercise: supine median nerve glides 2 x 10 gentle (instructed for HEP also 11/26) Exercise: Chin tucks seated x 15; chin tucks seated with rot x 7 L, x 8 R (has c/o dizziness) Exercise: cervical retraction + extension progression as appropriate - next Exercise: Seated ER with cane (neutral SH) x 10 - next Exercise: cervical distraction x 10, cervical ROT PROM x [address] Exercise: held - SO release x 3 (held this session as pt reports it caused migraine previously) Exercise: next- attempt LTR, DKTC, lumbar distraction on SB as tolerated Exercise: next- may trial prone over pillows/prone lying as tolerated, or lumbar ext at wall Modalities Non-Timed Electrical Stimulation Unattended - 13228/G0283: HELD TODAY- IFC to low back x 15 min (supine, bolster under knees) (performed cervical/SH stretches during) Hot Pack - 47370: MHP to L shoulder and low back (during SH PROM today - no back tx today 12/01) Home Exercise Program Current Home Exercise Program: Continue current HEP. Education Was Education Provided: Yes Topic: ther ex technique, home modalities for pain management, PT POC Recipient: Patient Method: Demonstration, Verbal, Return Demonstration Response: Verbalized understanding, Asked questions, Demonstrates adequately ASSESSMENT Assessment Note: Pt is able to complete AAROM and PROM ex but continues to be limited by painful symptoms in LSH and low back. MHP on L SH for all ex except wall slides and AAROM on SB and MHP does slightly decrease tightness. She notes the most pain in L bicep and deltoid t/o rx. She was able to tolerate cervical PROM and gentle distraction and SH PROM in supine with MHP under low back and on L SH and with L UE propped on pillow. She needed several rest breaks due to increased pain throughout rx. Response to Treatment : Dizzy immediately after standing from plinthe but improved with standing rest break; low back feels better but L SH is painful Continue on Functional Deficit of: L shoulder pain with dressing, bathing, work, sleep PLAN Plan Next Visit Plan: Continue ROM/pain relief techniques as able. Introduce low back interventions as able. Total Time Total Time in Minutes: 50 Timed Code Treatment Minutes : 50 documented in this encounter Plan of Treatment Upcoming Encounters Date Type Department Care Team (Late st Contact Info) Description 02/12/2024 9:00 AM ENVIRONMENTAL HEALTH INSPECTOR Appointment [facility] [address] [place] [address] [place] [address] [place] [address] [place] [address] [place] [address] 02/12/2024 2:00 PM ENVIRONMENTAL HEALTH INSPECTOR [place]ointment [facility] [place] [address] [place] [address] [place] [address] [place] [address] 02/16/2024 9:00 AM ENVIRONMENTAL HEALTH INSPECTOR Appointment [facility] [address] [place] [address] [place] [address] [place] [address] [place] [address] [place] [address] 02/19/2024 8:45 AM ENVIRONMENTAL HEALTH INSPECTOR Appointment [facility] [address] [place] [address] [place] [address] [place] [address] [place] [address] [place] [address] 02/19/2024 9:00 AM ENVIRONMENTAL HEALTH INSPECTOR Appointment [facility] [address] [place] [address] [place] [address] [place] [address] [place] [address] [place] [address] 02/23/2024 9:00 AM ENVIRONMENTAL HEALTH INSPECTOR Appointment [facility] [address] [place] [address] [place] [address] [place] [address] [place] [address] [place] [address] 02/24/2024 1:30 PM ENVIRONMENTAL HEALTH INSPECTOR Appointment [facility] [address] [place] [address] Ihsan Logan, [address] [place] [address] 02/26/2024 9:00 AM ENVIRONMENTAL HEALTH INSPECTOR Appointment [facility] [address] [place] [address] [place] [address] [place] [address] [place] [address] [place] [address] 02/26/2024 9:15 AM ENVIRONMENTAL HEALTH INSPECTOR Appointment [facility] [address] [place] [address] [place] [address] [place] [address] [place] [address] [place] [address] 03/01/2024 9:00 AM ENVIRONMENTAL HEALTH INSPECTOR Appointment [facility] [address] [place] [address] [place] [address] [place] [address] [place] [address] [place] [address] Lorene Branch, RACE RELATIONS ADVISER 03/02/2024 12:27 PM ENVIRONMENTAL HEALTH INSPECTOR Hospital Encounter [facility] [address] [place] [address] [place] [address] [place] [address] 03/02/2024 12:27 PM ENVIRONMENTAL HEALTH INSPECTOR - 03/02/2024 1:07 PM ENVIRONMENTAL HEALTH INSPECTOR Surgery [facility] [address] [place] [address] [place] [address] [place] [address] MANIPULATION SHOULDER 03/05/2024 9:00 AM ENVIRONMENTAL HEALTH INSPECTOR Appointment [facility] [address] [place] [address] [place] [address] [place] [address] Lorene Branch, RACE RELATIONS ADVISER 03/08/2024 9:00 AM ENVIRONMENTAL HEALTH INSPECTOR Appointment [facility] [address] [place] [address] [place] [address] [place] [address] Lorene Branch, RACE RELATIONS ADVISER 03/11/2024 9:15 AM ENVIRONMENTAL HEALTH INSPECTOR Appointment [facility] [address] [place] [address] [place] [address] [place] [address] Lorene Branch, RACE RELATIONS ADVISER 03/15/2024 9:00 AM ENVIRONMENTAL HEALTH INSPECTOR Appointment [facility] [address] [place] [address] [place] [address] [place] [address] Lorene Branch, RACE RELATIONS ADVISER 03/18/2024 9:15 AM ENVIRONMENTAL HEALTH INSPECTOR Appointment [facility] [address] [place] [address] [place] [address] [place] [address] [place] [address] Lorene Branch, RACE RELATIONS ADVISER 03/22/2024 9:00 AM ENVIRONMENTAL HEALTH INSPECTOR Appointment [facility] [address] [place] [address] [place] [address] [place] [address] Lorene Branch, RACE RELATIONS ADVISER 03/25/2024 9:15 AM ENVIRONMENTAL HEALTH INSPECTOR Appointment [facility] [address] [place] [address] [place] [address] [place], [place] [id number] Lorene Branch, RACE RELATIONS ADVISER 04/21/2024 11:20 AM ENVIRONMENTAL HEALTH INSPECTOR Office Visit [facility] [address] [place] [phone] [place] [address] [place] [address] Scheduled Procedures Name Priority Associated Diagnoses Date/Ti me MANIPULATION SHOULDER Adhesive capsulitis of left shoulder 03/02/2024 12:27 PM ENVIRONMENTAL HEALTH INSPECTOR INJECTION JOINT Adhesive capsulitis of left shoulder 03/02/2024 12:27 PM ENVIRONMENTAL HEALTH INSPECTOR documented as of this encounter Visit Diagnoses Diagnosis Left shoulder pain- Primary Pain in joint, shoulder region Adhesive capsulitis of left shoulder Adhesive capsulitis of shoulder documented in this encounter Additional Health Concerns Assessment Noted Time PHQ-9 Depression Total Score: 24 024 3:24 PM CDT documented as of this encounter Care Teams Telegraph Repeater Mechanic Relationship Specialty Start Date End Date [place]ger Soriano [place] [id number] [place] [address] PCP - General Physician [employer] 09/16/23 documented as of this encounter
--- OUTSIDE RECORDS SUMMARY | 2024-02-12 03:29 | XMS_ITS | Encounter Summary ---
Author Organization [facility] Address [facility]6 [facility]. [place], [place] [address] [place] [address] Care Team Providers Care Food Service Kitchen Supervisor Name Role Phone Holger Soriano Primary Care Provider [phone] Reason for Visit * Reason Comments Shoulder Pain * Physical Medicine (Urgent) - Authorized Specialty Diagnoses / Procedures Referred By Shmuel t Referred To Contact PHYSICAL THERAPY Diagnoses Left shoulder pain Low back pain Procedures OFFICE/OUTPATIENT NEW LOW MDM 30-44 MINUTES OFFICE/OUTPT VISIT,NEW,LEVL IV OFFICE/OUTPT VISIT,NEW,LEVL V OFFICE/OUTPT VISIT,EST,LEVL III OFFICE/OUTPT VISIT,EST,LEVL IV OFFICE/OUTPT VISIT,EST,[place] [address] [place] [address] Phone: tel: fax: [facility] [address] [place] [address] Phone: tel: fax: Referral ID Status Reason Start Date Expiration Date Visits Requested Visits Authorized [id number] Authorized Physical Therapy 10/13/2023 11/11/2024 99 99 Encounter Details Date Type Department Care Team (Late st Contact Info) Description 12/23/2023 7:30 AM CDT - 12/23/2023 11:59 PM CDT Hospital Encounter [facility] [address] [place], [place] [phone] [place] [address] [place] [phone] [place] [address] [place], [place] [phone] Shoulder Pain Discharge Disposition: Home or Self [...] Progress Notes * Sampson Mukherjee, PT - 12/23/2023 7:30 AM CDT Physical Therapy Visit Note: Patient Name: Oumou Middleton Diagnosis: Left shoulder pain (primary encounter diagnosis) SUBJECTIVE Therapy Visit Start Time: 729 Total Approved Visits: 20 for SH (re-eval 10th visit for SH), 16 for back Therapy Plan of Care: 2x/week for 8 weeks Current Therapy Orders: eval and tx Diagnosis: L shoulder pain, low back pain Referring Provider: Holger Soriano Date of Injury: Shoulder- Fell Feb 2023 but pain started in Nov 2022. Low back - exacerbated early Oct. 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[employer], [employer], [employer] Job Duties: Has help at work to lift things currently Subjective Note: Presents for trial of TDN. Scheduled for [place] January 07. 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 6 -.30 x 40 Serin J type needle used to upper trap x 3, TM,infraspinatus, supraspinatus Education Was Education Provided: Yes Topic: HEP Recipient: Patient Method: Verbal, Demonstration, Return Demonstration Response: Verbalized understanding, Asked questions, Demonstrates adequately ASSESSMENT Assessment Note: Tolerated TDN well with positive response- patient states her arm feel looser. She would liketo incorporate TDN in next session due to immediate comfort and release of muscle spasm noted today. She acknowledges understanding of HEP, LLLD. Response to Treatment : no adverse reactions Continue on Functional Deficit of: L shoulder pain with dressing, bathing, work, sleep PLAN Plan Next Visit Plan: Continue PT per POC, progress as tolerated. Total Time Total Time in Minutes: 45 Timed Code Treatment Minutes : 45 documented in this encounter Plan of Treatment Upcoming Encounters Date Type Department Care Team ([facility]) Description 02/12/2024 9:00 AM VACUUM TANK TENDER Appointment [facility] [address] [place] [address] [place] [address] [place] [address] [place] [address] [place] [address] 02/12/2024 2:00 PM VACUUM TANK TENDER [facility]ointment [facility] [address] [place] [address] [place] [address] 02/16/2024 9:00 AM VACUUM TANK TENDER Appointment [facility] [address] [place] [address] [place] [address] [place] [address] [place] [address] [place] [address] 02/19/2024 8:45 AM VACUUM TANK TENDER Appointment [facility] [address] [place] [address] [place] [address] [place] [address] [place] [address] [place] [address] 02/19/2024 9:00 AM VACUUM TANK TENDER Appointment [facility] [address] [place] [address] [place] [address] [place] [address] [place] [address] [place] [address] 02/23/2024 9:00 AM VACUUM TANK TENDER Appointment [facility] [address] [place] [address] [place] [address] [place] [address] [place] [address] [place] [address] 02/24/2024 1:30 PM VACUUM TANK TENDER Appointment [facility] [address] [place] [address] [place] [address] [place] [address] 02/26/2024 9:00 AM VACUUM TANK TENDER Appointment [facility] [address] [place] [address] [place] [address] [place] [address] [place] [address] [place] [address] 02/26/2024 9:15 AM VACUUM TANK TENDER Appointment [facility] [address] [place] [address] [place] [address] [place] [address] [place] [address] [place] [address] 03/01/2024 9:00 AM VACUUM TANK TENDER Appointment [facility] [address] [place] [address] [place] [address] [place] [address] [place] [address] [place] [address] Lorene Branch, FORM COVERER 03/02/2024 12:27 PM VACUUM TANK TENDER Hospital Encounter [facility] [address] [place] [address] [place] [address] [place] [address] 03/02/2024 12:27 PM VACUUM TANK TENDER - 03/02/2024 1:07 PM VACUUM TANK TENDER Surgery [facility] [address] [place] [address] [place] [address] [place] [address] MANIPULATION SHOULDER 03/05/2024 9:00 AM VACUUM TANK TENDER Appointment [facility] [address] [place] [address] [place] [address] [place] [address] Lorene Branch, FORM COVERER 03/08/2024 9:00 AM VACUUM TANK TENDER Appointment [facility] [address] [place] [address] [place] [address] [place] [address] Lorene Branch, FORM COVERER 03/11/2024 9:15 AM VACUUM TANK TENDER Appointment [facility] [address] [place] [address] [place] [address] [place] [address] Lorene Branch, FORM COVERER 03/15/2024 9:00 AM VACUUM TANK TENDER Appointment [facility] [address] [place] [address] [place] [address] [place] [address] Lorene Branch, FORM COVERER 03/18/2024 9:15 AM VACUUM TANK TENDER Appointment [facility] [address] [place] [address] [place] [address] [place] [address] Lorene Branch, FORM COVERER 03/22/2024 9:00 AM VACUUM TANK TENDER Appointment [facility] [address] [place] [address] [place] [address] [place] [address] Lorene Branch, FORM COVERER 03/25/2024 9:15 AM VACUUM TANK TENDER Appointment [facility] [address] [place] [address] [place] [address] [place] [address] Lorene Branch, FORM COVERER 04/21/2024 11:20 AM VACUUM TANK TENDER Office Visit [facility] Family [facility] - [place] [address] [place] [phone] [place] [address] [place], [place] [phone] Scheduled Procedures Name Priority Associated Diagnoses Date/Ti me MANIPULATION SHOULDER Adhesive capsulitis of left shoulder 03/02/2024 12:27 PM VACUUM TANK TENDER INJECTION JOINT Adhesive capsulitis of left shoulder 03/02/2024 12:27 PM VACUUM TANK TENDER documented as of this encounter Visit Diagnoses Diagnosis Left shoulder pain- Primary Pain in joint, shoulder region Adhesive capsulitis of left shoulder Adhesive capsulitis of shoulder documented in this encounter Additional Health Concerns Assessment Noted Time PHQ-9 Depression Total Score: 24 024 3:24 PM CDT documented as of this encounter Care Teams Food Service Kitchen Supervisor Relationship Specialty [place] [address] [place] [address] PCP - General Physician Data Officer Medical 09/16/23 documented as of this encounter
--- OUTSIDE RECORDS SUMMARY | 2024-02-12 03:29 | XMS_ITS | Encounter Summary ---
Author Organization [facility] Address [facility] [place] [address] [place] [address] Care Team Providers Care Supplier Quality Specialist Name Role Phone Holger Soriano Primary Care Provider Reason for Referral * Imaging (Routine) - Closed Specialty Diagnoses / Procedures Referred By Shmuel anegl Referred To Contact RADIOLOGY Diagnoses Radiculopathy of cervicothoracic region Numbness and tingling in left arm Procedures MRI CERV SPINE WO CON Ihsan Logan DO Phone: tel: fax: Referral ID Status Reason Start Date Expiration Date Visits Re quested Visits Authorized [id number] Closed 07/07/2023 08/05/2024 1 1 Reason for Visit * Imaging (Routine) - Closed Specialty Diagnoses / Procedures Referred By Shmuel angel Referred To Contact RADIOLOGY Diagnoses Radiculopathy of cervicothoracic region Numbness and tingling in left arm Procedures MRI CERV SPINE WO CON Ihsan Logan DO Phone: tel: fax: Referral ID Status Reason Start Date Expiration Date Visits Re quested Visits Authorized [id number] Closed 07/07/2023 08/05/2024 1 1 Encounter Details Date Type Department Care Team (Late st Contact Info) Description 12/10/2023 1:29 PM CDT - 12/10/2023 11:59 PM CDT Hospital Encounter [facility] [address] [place] [address] LoganIhsan monterroso, [address] [place] [address] Discharge Disposition: Home or Self Care (Routine [...] complication, with long-term current use of insulin ([facility]) Take 1 tablet (4 mg total) by mouth every 8 (eight) hours as needed for Nausea. 20 tablet 11/19/2023 4 progesterone (PROMETRIUM) 100 MG capsuleIndication s:Menopausal and female climacteric states take 1 capsule by mouth every day 90 capsule 1 06/10/2023 documented as of this encounter Plan of Treatment Upcoming Encounters Date Type Department Care Team (Late st [facility]) Description 02/12/2024 9:00 AM STILL RUNNER Appointment [facility] [address] [place] [address] [place] [address] [place] [address] [place] [address] [place], [place] [id number] 02/12/2024 2:00 PM STILL RUNNER [facility]ment [facility] [address] [place] [address] [place] [address] [place] [address] 02/16/2024 9:00 AM STILL RUNNER Appointment [facility] [address] [place] [address] [place] [address] [place] [address] [place] [address] [place] [address] 02/19/2024 8:45 AM STILL RUNNER Appointment [facility] [address] [place] [address] [place] [address] [place] [address] [place] [address] [place] [address] 02/19/2024 9:00 AM STILL RUNNER Appointment [facility] [address] [place] [address] [place] [address] [place] [address] [place] [address] [place] [address] 02/23/2024 9:00 AM STILL RUNNER Appointment [facility] [address] [place] [address] [place] [address] [place] [address] [place] [address] [place] [address] 02/24/2024 1:30 PM STILL RUNNER Appointment [facility] [address] [place] [address] Ihsan Logan, [address] [place] [address] 02/26/2024 9:00 AM STILL RUNNER Appointment [facility] [address] [place] [address] [place] [address] [place] [address] [place] [address] [place] [address] 02/26/2024 9:15 AM STILL RUNNER Appointment [facility] [address] [place] [address] [place] [address] [place] [address] [place] [address] [place] [address] 03/01/2024 9:00 AM STILL RUNNER Appointment [facility] [address] [place] [address] [place] [address] [place] [address] [place] [address] [place] [address] Lorene Branch, RN WOUND CARE 03/02/2024 12:27 PM STILL RUNNER Hospital Encounter [address] [address] [place] [address] [place] [address] 03/02/2024 12:27 PM STILL RUNNER - 03/02/2024 1:07 PM STILL RUNNER Surgery [facility] Surgery [address] [place] [address] [place] [address] [place] [address] MANIPULATION SHOULDER 03/05/2024 9:00 AM STILL RUNNER Appointment [facility] Outpatient [facility]hab [address] [place] [address] [place] [address] [place] [address] Lorene Branch, RN WOUND CARE 03/08/2024 9:00 AM STILL RUNNER Appointment [facility] Outpatient [facility]hab [address] [place] [address] [place] [address] [place] [address] Lorene Branch, RN WOUND CARE 03/11/2024 9:15 AM STILL RUNNER Appointment [facility] [address] [place] [address] [place] [address] [place] [address] Lorene Branch, RN WOUND CARE 03/15/2024 9:00 AM STILL RUNNER Appointment [facility] [address] [place] [address] [place] [address] [place] [address] Lorene Branch, RN WOUND CARE 03/18/2024 9:15 AM STILL RUNNER Appointment [facility] [address] [place] [address] [place] [address] [place] [address] Lorene Branch, RN WOUND CARE 03/22/2024 9:00 AM STILL RUNNER Appointment [facility] [address] [place] [address] [place] [address] [place] [address] Lorene Branch, RN WOUND CARE 03/25/2024 9:15 AM STILL RUNNER Appointment [facility] [address] [place], [place] [id number] [place] [address] [place], [place] [phone] Lorene Branch, RN WOUND CARE 04/21/2024 11:20 AM STILL RUNNER Office Visit [facility] Family & Internal Medicine [facility] [address] [place] [address] [place] [address] [place] [address] Scheduled Procedures Name Priority Associated Diagnoses Date/Ti me MANIPULATION SHOULDER Adhesive capsulitis of left shoulder 03/02/2024 12:27 PM STILL RUNNER INJECTION JOINT Adhesive capsulitis of left shoulder 03/02/2024 12:27 PM STILL RUNNER documented as of this encounter Procedures Procedure Name Priority Date/Time Associated Diagnosis Comments MRI CERV SPINE WO CON Routine 12/10/2023 2:35 PM CDT Radiculopathy of cervicothoracic region Numbness and tingling in left arm documented in this encounter Results * MRI CERV SPINE WO CON (12/10/2023 2:35 PM CDT) Anatomical Region Laterality Modality Spine Magnetic Resonan ce 12/10/2023 3:45 PM CDT Impressions 12/10/2023 3:48 PM CDT IMPRESSION: 1. ??Small broad-based midline disc protrusion at C5/C6 causing minimal effacement of ventral thecal sac. ??No significant cervical central canal or neural foraminal stenosis. 2. ??No acute osseous abnormality or ligamentous injury. Referred By: IHSAN LOGAN Interpreted By: Morgan Borjas MD, 12/10/2023 3:45 PM Narrative 12/10/2023 3:[address] [facility] [address] [place] [address] EXAMINATION:MRI of the cervical spine without contrast [...] Procedure Note Morgan Borjas MD - 12/10/2023 [facility] [address] [place] [address] EXAMINATION:MRI of the cervical spine without contrast [...] abnormality or ligamentous injury. Referred By: IHSAN LOGAN Interpreted By: Morgan Borjas MD, 12/10/2023 3:45 PM Ihsan Logan DO MRI Final Result documented in this encounter Visit Diagnoses Diagnosis Radiculopathy of cervicothoracic region Brachial neuritis or radiculitis nos Numbness and tingling in left arm Disturbance of skin sensation Adhesive capsulitis of left shoulder Adhesive capsulitis of shoulder documented in this encounter Additional Health Concerns Assessment Noted Time PHQ-9 Depression Total Score: 024 3:24 PM CDT documented as of this encounter Care Teams Supplier Quality Specialist Relationship Specialty [place] [address] [place] [address] PCP - General Physician Drill Rig Operator [employer] 09/16/23 documented as of this encounter
--- OUTSIDE RECORDS SUMMARY | 2024-02-12 03:29 | XMS_ITS | Encounter Summary ---
Author Organization [facility] Address [facility] [place] [address] [place] [address] Care Team Providers Care Film Examiner Name Role Phone Holger Soriano Primary Care Provider [phone] Reason for Visit * Reason Comments Sinus Problem Stuffy head, drainag e, pressure to eyes-no fever-x1 week Encounter Details Date Type Department Care Team (Late st Contact Info) Description 12/02/2023 3:20 PM CDT Office Visit [facility] Medical [facility] Family & Internal Medicine [facility] [id number] [place] [phone] Dionne H[place]ins [place] [phone] [place] [address] Sinus Problem (Stuffy head, drainage, pressure to eyes-no fever-x1 week) Social History Tobacco Use Types Packs/Day Years Used Date Smoking Tobacco: Former Cigarettes Q uit: 03/18/2023 Passive Smoke Exposure: Current Smokeless Tobacco: Never Tobacco Cessation:Counseling Given: No Alcohol Use Standard Drinks/Week Comments Yes 0 [...] Sign Reading Time Taken Comments Blood Pressure 120/77 12/02/2023 3:13 PM CDT Pulse 72 12/02/2023 3:13 PM CDT Temperature 37 ??C (98.6 ??F) 12/02/2023 3:13 PM CDT Respiratory Rate 20 12/02/2023 3:13 PM CDT Oxygen Saturation 98% 12/02/2023 3:13 PM CDT Inhaled Oxygen Concentration - - Weight 85.7 kg (189 lb) 12/02/2023 3:13 PM CDT Height 157.5 cm (5' 2 ) 12/02/2023 3:13 PM CDT Body Mass Index 34.57 12/02/2023 3:13 PM CDT documented in this encounter Patient Instructions * Attachments The following attachments cannot be sent through Care Everywhere. * Sinusitis Discharge Instructions, Adult ([place]uxembourgish) documented in this encounter Progress Notes * TYLER White - 12/02/2023 3:20 PM CDT Images from the original note were not included. _ Reason for Visit: Sinus Problem (Stuffy head, drainage, pressure to eyes-no fever-x1 week) History of Present Illness: KEL Midd[place] is a 48-year-old female here for patient or evaluation through the walk-in clinic for symptoms of upper respiratory infection to include nasal congestion, sore throat, and headache. Planes of a lot of stuffiness in her head and pressure behind her eyes. Patient denies symptoms of visual disturbance or vomiting. Patient has not noticed a fever. Patient has a slight cough with out wheezing. Patient denies shortness of breath. Patient has not had loose stools. Patient has been symptomatic for 7+ days and is not improving with symptoms. ROS: Review of Systems Feeling ill. Denies [...] Outpatient Medications Marked as Taking for the 12/02/23 encounter (Office Visit) with TYLER White Medication Sig Dispense Refill albuterol sulfate HFA 108 (90 Base) MCG/ACT inhaler Inhale 2 puffs into the lungs every 4 (four) hours as needed for Wheezing or Shortness of breath. 18 g 0 cyclobenzaprine (FLEXERIL) 10 MG tablet Take 1 tablet (10 mg total) by mouth as needed. FOR MUSCLE SPASMS diazePAM (VALIUM) 5 MG tablet Take 1 tablet (5 mg total) by mouth every 12 (twelve) hours as neededfor Anxiety. 10 tablet 0 doxycycline hyclate (VIBRAMYCIN) 100 MG capsule Take 1 capsule (100 mg total) by mouth 2 (two) times daily for 10 days. 20 capsule 0 DULoxetine (CYMBALTA) 30 MG capsule Take 1 capsule (30 mg total) by mouth daily. 180 capsule 1 estradiol (ESTRACE) 2 MG tablet Take 1 tablet (2 mg total) by mouth daily. 28 tablet 2 fluconazole (DIFLUCAN) 150 MG tablet One now one in a week.Patient has taken with Seroquel in the past without incident. 2 tablet 0 fluticasone propionate (FLONASE) 50 MCG/ACT nasal spray 2 sprays by Each Nostril route daily. SHAKELIQUID gabapentin (NEURONTIN) 300 MG capsule TAKE 1 CAPSULE(300 MG) BY MOUTH EVERY EVENING 30 capsule 0 meloxicam (MOBIC) 15 MG tablet Take 1 tablet (15 mg total) by mouth daily. 30 tablet 0 ondansetron (ZOFRAN) 4 MG tablet Take 1 tablet (4 mg total) by mouth every 8 (eight) hours as needed for Nausea. 20 tablet 0 progesterone (PROMETRIUM) 100 MG capsule [...] Past Medical History: Diagnosis Date ADHD Asthma ([facility]) COPD (chronic obstructive pulmonary disease) ([facility]) History reviewed. No pertinent surgical history. Social History Tobacco Use Smoking status: Former Current packs/day: 0.00 Types: Cigarettes Quit date: 03/18/2023 Years since quittin.7 Passive exposure: Current Smokeless tobacco: Never Vaping Use Vaping status: Never Used Substance Use Topics Alcohol use: Yes Drug use: Never Family History Problem Relation Name Age of Onset Dementia Mother Ovarian Cancer Mother Osteoarthritis Mother Endometriosis Sister Thyroid cancer Sister Dementia Maternal Grandmother Family Status Relation Name Status Mother (Not Specified) Sister (Not Specified) MGM (Not Specified) No partnership data on file Physical Exam Constitutional: Patient is oriented to person, place, and time. Patient appears well-developed and well-nourished. HENT: Right Ear: External ear normal. Left Ear: External ear normal. Tympanic membrane's do reveal slight bulging and air-fluid levels bilaterally Head: Normocephalic. Maxillary and frontal sinus tenderness Nose: Nose normal. Turbinates are swollen Mouth/Throat: Oropharynx is clear and moist. Positive postnasal drainage Eyes: Pupils are equal, round, and reactive [...] content normal. No data to display Vitals: 12/02/23 1513 Patient Position: Sitting BP Location: Left arm Cuff size: Adult Long BP: 120/77 Pulse: 72 Body mass index is 34.57 kg/m??. Assessment and Plan Encounter Diagnose(s) ICD-10-CM SNOMED CT(R) 1. Acute non-recurrent frontal sinusitis J01.10 ACUTE FRONTAL SINUSITIS fluconazole (DIFLUCAN) 150 MG tablet doxycycline hyclate (VIBRAMYCIN) 100 MG capsule Orders Placed This Encounter fluconazole (DIFLUCAN) 150 MG tablet doxycycline hyclate (VIBRAMYCIN) 100 MG capsule Patient was told to push liquids and [...] Portions of this note were dictated using [employer] speech recognition software. Occasional wrong wordor sound-alike substitutions may have occurred due to the inherent limitations of voice recognition software. Please read the chart carefully and recognize, using context, where the substitutions may have occurred. Dionne Haskins PA-C evaluated and Dr. Veronique Guzman reviewed and agrees with plan. documented in this encounter Plan of Treatment Upcoming Encounters Date Type Department Care Team (Late st Contact Info) Description 02/12/2024 9:00 AM DIRECTOR ERP Appointment [facility] [address] [place], [place] [id number] [place] [address] [place] [address] [place] [address] [place] [address] 02/12/2024 2:00 PM DIRECTOR ERP Appointment [facility] [address] [place] [address] [place] [address] [place] [address] 02/16/2024 9:00 AM DIRECTOR ERP Appointment [facility] [address] [place] [address] [place] [address] [place] [address] [place] [address] [place] [address] 02/19/2024 8:45 AM DIRECTOR ERP Appointment [facility] [address] [place] [address] [place] [address] [place] [address] [place] [address] [place] [address] 02/19/2024 9:00 AM DIRECTOR ERP Appointment [facility]patient [facility] [address] [place] [address] [place] [address] [place] [address] [place] [address] [place] [address] 02/23/2024 9:00 AM DIRECTOR ERP Appointment [facility] [address] [place] [address] [place] [address] [place] [address] [place] [address] [place] [address] 02/24/2024 1:30 PM DIRECTOR ERP Appointment [facility] [address] [place] [address] Ihsan Logan, [address] [place] [address] 02/26/2024 9:00 AM DIRECTOR ERP Appointment [facility]patient [facility]hab [id number] [place] [address] [place] [address] [place] [address] [place] [address] [place] [address] 02/26/2024 9:15 AM DIRECTOR ERP Appointment [facility]patient [facility] [address] [place] [address] [place] [address] [place] [address] [place] [address] [place] [address] 03/01/2024 9:00 AM DIRECTOR ERP Appointment [facility]patient [facility] [address] [place] [address] [place] [address] [place] [address] [place] [address] [place] [address] Lorene Branch, CARDIAC TECH 03/02/2024 12:27 PM DIRECTOR ERP Hospital Encounter [facility] Surgery [address] [place] [address] [place] [address] [place] [address] 03/02/2024 12:27 PM DIRECTOR ERP - 03/02/2024 1:07 PM DIRECTOR ERP Surgery [facility] Surgery [address] [place] [address] [place] [address] [place] [address] MANIPULATION SHOULDER 03/05/2024 9:00 AM DIRECTOR ERP Appointment [facility] Outpatient Rehab [address] [place] [address] [place] [address] [place] [address] Lorene Branch, CARDIAC TECH 03/08/2024 9:00 AM DIRECTOR ERP Appointment [facility] Outpatient [facility]hab [address] [place] [address] [place] [address] [place] [address] Lorene Branch, CARDIAC TECH 03/11/2024 9:15 AM DIRECTOR ERP Appointment [facility]patient [facility]hab [address] [place] [address] [place] [address] [place] [address] Lorene Branch, CARDIAC TECH 03/15/2024 9:00 AM DIRECTOR ERP Appointment [facility] Outpatient [facility]hab [address] [place] [address] [place] [address] [place] [address] Lorene Branch, CARDIAC TECH 03/18/2024 9:15 AM DIRECTOR ERP Appointment [facility] Outpatient [facility]hab [address] [place] [address] [place] [address] [place] [address] Lorene Branch, CARDIAC TECH 03/22/2024 9:00 AM DIRECTOR ERP Appointment [facility] Outpatient [facility]hab [address] [place] [address] [place] [address] [place] [address] Lorene Branch, CARDIAC TECH 03/25/2024 9:15 AM DIRECTOR ERP Appointment [facility] Outpatient [facility]hab [address] [place] [address] [place] [address] [place] [address] Lorene Branch, CARDIAC TECH 04/21/2024 11:20 AM DIRECTOR ERP Office Visit [facility] Medical Group Family & Internal Medicine - [address] [phone] Holger Soriano PA [address] [place] [address] Scheduled Procedures Name Priority Associated Diagnoses Date/Ti me MANIPULATION SHOULDER Adhesive capsulitis of left shoulder 03/02/2024 12:27 PM DIRECTOR ERP INJECTION JOINT Adhesive capsulitis of left shoulder 03/02/2024 12:27 PM DIRECTOR ERP documented as of this encounter Visit Diagnoses Diagnosis Acute non-recurrent frontal sinusitis- Primary Adhesive capsulitis of left shoulder Adhesive capsulitis of shoulder documented in this encounter Additional Health Concerns Assessment Noted Time PHQ-9 Depression Total Score: 024 3:24 PM CDT documented as of this encounter Care Teams Film Examiner Relationship Specialty [place] [address] [place] [address] PCP - General Physician Armature Winder [employer] 09/16/23 documented as of this encounter
--- OUTSIDE RECORDS SUMMARY | 2024-02-12 03:29 | XMS_ITS | Encounter Summary ---
Author Organization [facility] Address [facility] [place] [address] [place] [address] Care Team Providers Care Plumber Assistant Name Role Phone Holger Soriano Primary Care Provider [phone] Encounter Details Date Type Department Care Team (Latest Contact Info) Description 12/02/2023 Travel Social History Tobacco Use Types Packs/Day [...] st Contact Info) Description 02/12/2024 9:00 AM MATRIX DRIER TENDER Appointment [facility] [address] [place] [address] [place] [address] [place] [address] [place] [address] [place], [place] [id number] 02/12/2024 2:00 PM MATRIX DRIER TENDER Appointment [facility] [place] [address] [place] [address] [place] [address] [place] [address] 02/16/2024 9:00 AM MATRIX DRIER TENDER Appointment [facility] [address] [place] [address] [place] [address] [place] [address] [place] [address] [place] [address] 02/19/2024 8:45 AM MATRIX DRIER TENDER Appointment [facility] [address] [place] [address] [place] [address] [place] [address] [place] [address] [place] [address] 02/19/2024 9:00 AM MATRIX DRIER TENDER Appointment [facility] [address] [place] [address] [place] [address] [place] [address] [place] [address] [place] [address] 02/23/2024 9:00 AM MATRIX DRIER TENDER Appointment [facility] [address] [place] [address] [place] [address] [place] [address] [place] [address] [place] [address] 02/24/2024 1:30 PM MATRIX DRIER TENDER Appointment [facility] [address] [place] [address] [place] [address] [place] [address] 02/26/2024 9:00 AM MATRIX DRIER TENDER Appointment [facility] [address] [place] [address] [place] [address] [place] [address] [place] [address] [place] [address] 02/26/2024 9:15 AM MATRIX DRIER TENDER Appointment [facility] [address] [place] [address] [place] [address] [place] [address] [place] [address] [place] [address] 03/01/2024 9:00 AM MATRIX DRIER TENDER Appointment [facility] [address] [place] [address] [place] [address] [place] [address] [place] [address] [place] [address] Lorene Branch, SUGAR CANE PLANTING EQUIPMENT OPERATOR 03/02/2024 12:27 PM MATRIX DRIER TENDER Hospital Encounter [facility] [id number] [place] [address] [place] [address] [place] [address] 03/02/2024 12:27 PM MATRIX DRIER TENDER - 03/02/2024 1:07 PM MATRIX DRIER TENDER Surgery [address] [address] [place] [address] [place] [address] MANIPULATION SHOULDER 03/05/2024 9:00 AM MATRIX DRIER TENDER Appointment [facility] [address] [place] [address] [place] [address] [place] [address] Lorene Branch, SUGAR CANE PLANTING EQUIPMENT OPERATOR 03/08/2024 9:00 AM MATRIX DRIER TENDER Appointment [facility] [address] [place] [address] [place] [address] [place] [address] Lorene Branch, SUGAR CANE PLANTING EQUIPMENT OPERATOR 03/11/2024 9:15 AM MATRIX DRIER TENDER Appointment [facility] [address] [place] [address] [place] [address] [place] [address] Lorene Branch, SUGAR CANE PLANTING EQUIPMENT OPERATOR 03/15/2024 9:00 AM MATRIX DRIER TENDER Appointment [facility] [address] [place] [address] [place] [address] [place] [address] Lorene Branch, SUGAR CANE PLANTING EQUIPMENT OPERATOR 03/18/2024 9:15 AM MATRIX DRIER TENDER Appointment [facility] [address] [place] [address] [place] [address] [place] [address] Lorene Branch, SUGAR CANE PLANTING EQUIPMENT OPERATOR 03/22/2024 9:00 AM MATRIX DRIER TENDER Appointment [facility] [address] [place] [address] [place] [address] [place] [address] Lorene Branch, SUGAR CANE PLANTING EQUIPMENT OPERATOR 03/25/2024 9:15 AM MATRIX DRIER TENDER Appointment [facility] [address] [place] [address] [place] [address] [place] [address] Lorene Branch, SUGAR CANE PLANTING EQUIPMENT OPERATOR 04/21/2024 11:20 AM MATRIX DRIER TENDER Office Visit [facility] Family & Internal Medicine - [address] [address] [place] [address] [place] [address] Scheduled Procedures Name Priority Associated Diagnoses Date/Ti me MANIPULATION SHOULDER Adhesive capsulitis of left shoulder 03/02/2024 12:27 PM MATRIX DRIER TENDER INJECTION JOINT Adhesive capsulitis of left shoulder 03/02/2024 12:27 PM MATRIX DRIER TENDER documented as of this encounter Visit Diagnoses Not on filedocumented in this encounter Additional Health Concerns Assessment Noted Time PHQ-9 Depression Total Score: 024 3:24 PM CDT documented as of this encounter Care Teams Plumber Assistant Relationship Specialty [place] [address] [place] [address] PCP - General Physician Rn Women Services Medical 09/16/23 documented as of this encounter
--- OUTSIDE RECORDS SUMMARY | 2024-02-12 03:29 | XMS_ITS | Encounter Summary ---
Author Organization [facility] Address [facility] [facility] [place] [address] [place] [address] Care Team Providers Care Stock Supervisor Name Role Phone Holger Soriano Primary Care Provider [phone] Encounter Details Date Type Department Care Team (Latest Contact Info) Description 12/11/2023 Travel Social History Tobacco Use Types Packs/Day [...] st Contact Info) Description 02/12/2024 9:00 AM OPERATIONS ASST Appointment [facility] [address] [place] [address] [place] [address] [place] [address] [place] [address] [place] [id number] 02/12/2024 2:00 PM OPERATIONS ASST Appointment [facility] [place] [address] [place] [address] [place] [address] [place] [address] 02/16/2024 9:00 AM OPERATIONS ASST Appointment [facility] [address] [place] [address] [place] [address] [place] [address] [place] [address] [place] [address] 02/19/2024 8:45 AM OPERATIONS ASST Appointment [facility] [address] [place] [address] [place] [address] [place] [address] [place] [address] [place] [address] 02/19/2024 9:00 AM OPERATIONS ASST Appointment [facility] [address] [place] [address] [place] [address] [place] [address] [place] [address] [place] [address] 02/23/2024 9:00 AM OPERATIONS ASST Appointment [facility] [address] [place] [address] [place] [address] [place] [address] [place] [address] [place] [address] 02/24/2024 1:30 PM OPERATIONS ASST Appointment [facility] [address] [place] [address] [place] [address] [place] [address] 02/26/2024 9:00 AM OPERATIONS ASST Appointment [facility] [address] [place] [address] [place] [address] [place] [address] [place] [address] [place] [address] 02/26/2024 9:15 AM OPERATIONS ASST Appointment [facility] [address] [place] [address] [place] [address] [place] [address] [place] [address] [place] [address] 03/01/2024 9:00 AM OPERATIONS ASST Appointment [facility] [address] [place] [address] [place] [address] [place] [address] [place] [address] [place] [address] Lorene Branch, MAINTENANCE AND ENGINEERING MANAGER 03/02/2024 12:27 PM OPERATIONS ASST Hospital Encounter [facility] [address] [place] [address] [place] [address] [place] [address] 03/02/2024 12:27 PM OPERATIONS ASST - 03/02/2024 1:07 PM OPERATIONS ASST Surgery [address] [address] [place] [address] [place] [address] MANIPULATION SHOULDER 03/05/2024 9:00 AM OPERATIONS ASST Appointment [facility] [address] [place] [address] [place] [address] [place] [address] Lorene Branch, MAINTENANCE AND ENGINEERING MANAGER 03/08/2024 9:00 AM OPERATIONS ASST Appointment [facility] [address] [place] [address] [place] [address] [place] [address] Lorene Branch, MAINTENANCE AND ENGINEERING MANAGER 03/11/2024 9:15 AM OPERATIONS ASST Appointment [facility] [address] [place] [address] [place] [address] [place] [address] Lorene Branch, MAINTENANCE AND ENGINEERING MANAGER 03/15/2024 9:00 AM OPERATIONS ASST Appointment [facility] [address] [place] [address] [place] [address] [place] [address] Lorene Branch, MAINTENANCE AND ENGINEERING MANAGER 03/18/2024 9:15 AM OPERATIONS ASST Appointment [facility] [address] [place] [address] [place] [address] [place] [address] Lorene Branch, MAINTENANCE AND ENGINEERING MANAGER 03/22/2024 9:00 AM OPERATIONS ASST Appointment [facility] [address] [place] [address] [place] [address] [place] [address] Lorene Branch, MAINTENANCE AND ENGINEERING MANAGER 03/25/2024 9:15 AM OPERATIONS ASST Appointment [facility] [address] [place] [address] [place] [address] [place] [address] Lorene Branch, MAINTENANCE AND ENGINEERING MANAGER 04/21/2024 11:20 AM OPERATIONS ASST Office Visit [facility] Family & Internal Medicine - [address] [address] [place] [address] [place] [address] Scheduled Procedures Name Priority Associated Diagnoses Date/Ti me MANIPULATION SHOULDER Adhesive capsulitis of left shoulder 03/02/2024 12:27 PM OPERATIONS ASST INJECTION JOINT Adhesive capsulitis of left shoulder 03/02/2024 12:27 PM OPERATIONS ASST documented as of this encounter Visit Diagnoses Not on filedocumented in this encounter Additional Health Concerns Assessment Noted Time PHQ-9 Depression Total Score: 024 3:24 PM CDT documented as of this encounter Care Teams Stock Supervisor Relationship Specialty [place] [address] [place] [address] PCP - General Physician Customer Service Representative Medical 09/16/23 documented as of this encounter
--- OUTSIDE RECORDS SUMMARY | 2024-02-12 03:29 | XMS_ITS | Encounter Summary ---
Author Organization [facility] Address [facility]. [place], [place] [address] [place] [address] Care Team Providers Care Director Of Student Life Name Role Phone Holger Soriano Primary Care Provider [phone] Reason for Visit * Reason Comments Back Pain * Physical Medicine (Urgent) - Authorized Specialty Diagnoses / Procedures Referred By Contac t Referred To Contact PHYSICAL THERAPY Diagnoses Left shoulder pain Low back pain Procedures OFFICE/OUTPATIENT NEW LOW MDM 30-44 MINUTES OFFICE/OUTPT VISIT,NEW,LEVL IV OFFICE/OUTPT VISIT,NEW,LEVL V OFFICE/OUTPT VISIT,EST,LEVL III OFFICE/OUTPT VISIT,EST,LEVL IV OFFICE/OUTPT VISIT,[place] [address] [place] [address] Phone: tel: fax: [facility] [address] [place] [address] Phone: tel: fax: Referral ID Status Reason Start Date Expiration Date Visits Requested Visits Authorized [id number] Authorized Physical Therapy 10/13/2023 11/11/2024 99 99 Encounter Details Date Type Department Care Team (Latest Contact Info) Description 12/25/2023 9:56 AM CDT - 12/25/2023 11:59 PM CDT Hospital Encounter [facility] [address] [place], [place] [id number] [place] [address] [place], [place] [id number] [place] [address] [place], [place] [id number] Back Pain Discharge Disposition: Home or Self [...] Progress Notes * Sampson Mukherjee, PT - 12/25/2023 10:00 AM CDT Physical Therapy Visit Note: Patient Name: Oumou Middleton Diagnosis: Left shoulder pain (primary encounter diagnosis) SUBJECTIVE Therapy Visit Start Time: 1000 Stop Time: 1115 Time Calculation (min): 75 min Treatment Day: 14 for SH/3 for LB Total Approved Visits: 20 for [...] exacerbated early Oct. 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[employer] Job Duties: Has help at work to lift things currently Subjective Note: [place] better after th dry needling until last night. Notes she did work yesterday and tried touse it gingerly but wonders if that is why she is feeling her shoulder knot up again. 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 L leg is tight today as well as the back. Reported Falls since last visit: no Medications changes since last visit : taking gabapentin 600 instead of 300 now OBJECTIVE Treatment provided today: Therapeutic Exercise - 48754 Number of Minutes - 74519: 45 Supine (Reps/Sets): HOLDING ON SHOULDER TX UNTIL MANIPULATION 01/07 Exercise: hip IR/ER PROM in supine x 10 each (slow,gentle, longer holds) (very limited IR bilaterally) Exercise: supine with MHP, LEs on orange SB: LTR, distraction, DKTC x 15 Exercise: supine with MHP: hamstring stretching 20 x 3 each, gentle sciatic nerve glides x 5 each LE Exercise: slant board L3 x 2 min Patient/Family Education: Home exercise program, Joint Protection Principles Other (Comments): instruction in seated hamstring stretch/hip hinging for HEP Manual Therapy - 80318 Number of Minutes - 78662: 30 Myofascial Release: upper trap, levator L Intervention: TDN not included in time / charge TDN Procedure: Informed consent obtained after thorough [...] 30 Serin J type needle used to infra, supra, TM L 4 -.30 x 40 Serin J type needle used to upper trap L Education Was Education Provided: Yes Topic: ex technique, PT POC Recipient: Patient Method: Verbal, Demonstration, Return Demonstration Response: Asked questions, Verbalized understanding, Demonstrates adequately ASSESSMENT Assessment Note: Patient has significant tightness into B hip IR and causes pain on contralateral side of low back. Hamstring tightness noted bilaterally with increased pain and decreased ROM with sciatic nerveglides. Continue on Functional Deficit of: L shoulder pain with dressing, bathing, work, sleep PLAN Plan Next Visit Plan: Progress activities as tolerated. Total Time Total Time in Minutes: 75 Timed Code Treatment Minutes : 75 documented in this encounter Plan of Treatment Upcoming Encounters Date Type Department Care Team (Late st Contact Info) Description 02/12/2024 9:00 AM CREDIT CARD CLERK Appointment [facility] [address] [place] [address] [place] [address] [place] [address] [place] [address] [place] [address] 02/12/2024 2:00 PM CREDIT CARD CLERK Appointment [facility] [place] [address] [place] [address] [place] [address] [place] [address] 02/16/2024 9:00 AM CREDIT CARD CLERK Appointment [facility] [address] [place] [address] [place] [address] [place] [address] [place] [address] [place] [address] 02/19/2024 8:45 AM CREDIT CARD CLERK Appointment [facility] [address] [place] [address] [place] [address] [place] [address] [place] [address] [place] [address] 02/19/2024 9:00 AM CREDIT CARD CLERK Appointment [facility] [address] [place] [address] [place] [address] [place] [address] [place] [address] [place] [address] 02/23/2024 9:00 AM CREDIT CARD CLERK Appointment [facility] [address] [place] [address] [place] [address] [place] [address] [place] [address] [place] [address] 02/24/2024 1:30 PM CREDIT CARD CLERK Appointment [facility] MRI [address] [place] [address] Ihsan Logan, [address] [place] [address] 02/26/2024 9:00 AM CREDIT CARD CLERK Appointment [facility] [address] [place] [address] [place] [address] [place] [address] [place] [address] [place] [address] 02/26/2024 9:15 AM CREDIT CARD CLERK Appointment [facility] [address] [place] [address] [place] [address] [place] [address] [place] [address] [place] [address] 03/01/2024 9:00 AM CREDIT CARD CLERK Appointment [facility] [address] [place] [address] [place] [address] [place] [address] [place] [address] [place] [address] Lorene Branch, TERRITORY ACCOUNT EXECUTIVE 03/02/2024 12:27 PM CREDIT CARD CLERK Hospital Encounter [facility] Surgery [address] [place] [address] [place] [address] [place] [address] 03/02/2024 12:27 PM CREDIT CARD CLERK - 03/02/2024 1:07 PM CREDIT CARD CLERK Surgery [facility] [address] [place] [address] [place] [address] [place] [address] MANIPULATION SHOULDER 03/05/2024 9:00 AM CREDIT CARD CLERK Appointment [facility] [address] [place] [address] [place] [address] [place] [address] Lorene Branch, TERRITORY ACCOUNT EXECUTIVE 03/08/2024 9:00 AM CREDIT CARD CLERK Appointment [facility] [address] [place] [address] [place] [address] [place] [address] Lorene Branch, TERRITORY ACCOUNT EXECUTIVE 03/11/2024 9:15 AM CREDIT CARD CLERK Appointment [facility] [address] [place] [address] [place] [address] [place] [address] Lorene Branch, TERRITORY ACCOUNT EXECUTIVE 03/15/2024 9:00 AM CREDIT CARD CLERK Appointment [facility] [address] [place] [address] [place] [address] [place] [address] Lorene Branch, TERRITORY ACCOUNT EXECUTIVE 03/18/2024 9:15 AM CREDIT CARD CLERK Appointment [facility] [address] [place] [address] [place] [address] [place] [address] Lorene Branch, TERRITORY ACCOUNT EXECUTIVE 03/22/2024 9:00 AM CREDIT CARD CLERK Appointment [facility] [address] [place] [address] [place] [address] [place] [address] Lorene Branch, TERRITORY ACCOUNT EXECUTIVE 03/25/2024 9:15 AM CREDIT CARD CLERK Appointment [facility] [address] [place] [address] [place] [address] [place] [address] Lorene Branch, TERRITORY ACCOUNT EXECUTIVE 04/21/2024 11:20 AM CREDIT CARD CLERK Office Visit [facility] Family & Internal Medicine [address] [address] [place] [address] [place] [address] Scheduled Procedures Name Priority Associated Diagnoses Date/Ti me MANIPULATION SHOULDER Adhesive capsulitis of left shoulder 03/02/2024 12:27 PM CREDIT CARD CLERK INJECTION JOINT Adhesive capsulitis of left shoulder 03/02/2024 12:27 PM CREDIT CARD CLERK documented as of this encounter Visit Diagnoses Diagnosis Left shoulder pain- Primary Pain in joint, shoulder region Adhesive capsulitis of left shoulder Adhesive capsulitis of shoulder documented in this encounter Additional Health Concerns Assessment Noted Time PHQ-9 Depression Total Score: 24 024 3:24 PM CDT documented as of this encounter Care Teams Director Of Student Life Relationship Specialty [place] [address] [place] [address] PCP - General Physician Real Estate Office Manager Medical 09/16/23 documented as of this encounter
--- OUTSIDE RECORDS SUMMARY | 2024-02-12 03:29 | XMS_ITS | Encounter Summary ---
Author Organization [facility] Address [facility]6 [facility]. [place], [place] [address] [place] [address] Care Team Providers Care Stud Setter Name Role Phone Holger Soriano Primary Care Provider [phone] Reason for Visit * Reason Comments Shoulder Pain Back Pain * Physical Medicine (Urgent) - Authorized Specialty Diagnoses / Procedures Referred By Shmuel t Referred To Contact PHYSICAL THERAPY Diagnoses Left shoulder pain Low back pain Procedures OFFICE/OUTPATIENT NEW LOW MDM 30-44 MINUTES OFFICE/OUTPT VISIT,NEW,LEVL IV OFFICE/OUTPT VISIT,NEW,LEVL V OFFICE/OUTPT VISIT,EST,LEVL III OFFICE/OUTPT VISIT,EST,LEVL IV OFFICE/OUTPT VISIT,EST[place] [address] [place] [address] Phone: tel: fax: [facility] Outpatient Rehab [address] [place] [address] Phone: tel: fax: Referral ID Status Reason Start Date Expiration Date Visits Requested Visits Authorized [id number] Authorized Physical Therapy 10/13/2023 11/11/2024 99 [phone] Encounter Details Date Type Department Care Team (Latest Contact Info) Description 12/11/2023 8:06 AM CDT - 12/11/2023 11:59 PM CDT Hospital Encounter [facility] Outpatient Rehab [address] [place] [address] [place] [address] [place] [address] [place] [address] [place] [address] Shoulder Pain; Back Pain Discharge Disposition: Home [...] complication, with long-term current use of insulin ([facility]) Take 1 tablet (4 mg total) by mouth every 8 (eight) hours as needed for Nausea. 20 tablet 11/19/2023 4 progesterone (PROMETRIUM) 100 MG capsuleIndication s:Menopausal and female climacteric states take 1 capsule by mouth every day 90 capsule 1 06/10/2023 4 documented as of this encounter Progress Notes * Padmaja Marie, PT - 12/11/2023 8:15 AM CDT Physical Therapy Visit Note: Patient Name: Oumou Middleton Diagnosis: Left shoulder pain (primary encounter diagnosis) SUBJECTIVE Therapy Visit Start Time: 814 Stop Time: 909 Time Calculation (min): 55 min Treatment Day: 11 for SH/2 for LB Total Approved Visits: [...] exacerbated early Oct. 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[employer], [employer] Job Duties: Has help at work to lift things currently Subjective Note: Pt reports that she woke up in pain this morning in her SH. Has been up since 4am. Wants to focus on this today. Feels very tight. 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 Less resistance felt with PROM after performing IASTM and appeared less painful (less facial grimacing). Response to Treatment : no adverse reaction Goal Progression: ongoing Continue on Functional Deficit of: L shoulder pain with dressing, bathing, work, sleep PLAN Plan Next Visit Plan: Assess response to IASTM. Progress as tolerated Total Time Total Time in Minutes: 55 Timed Code Treatment Minutes : 55 documented in this encounter Plan of Treatment Upcoming Encounters Date Type Department Care Team (Late st Contact Info) Description 02/12/2024 9:00 AM DUMPMAN Appointment [facility] Outpatient Rehab [address] [place] [address] [place] [address] [place] [address] [place] [address] [place] [address] 02/12/2024 2:00 PM DUMPMAN Appointment [facility] MRI [address] [place] [address] [place] [address] [place] [address] 02/16/2024 9:00 AM DUMPMAN Appointment [facility] Outpatient Rehab [address] [place] [address] [place] [address] [place] [address] [place] [address] [place] [address] 02/19/2024 8:45 AM DUMPMAN Appointment [facility] Outpatient Rehab [address] [place] [address] [place] [address] [place] [address] [place] [address] [place] [address] 02/19/2024 9:00 AM DUMPMAN Appointment [facility] Outpatient Rehab [address] [place] [address] [place] [address] [place] [address] [place] [address] [place] [address] 02/23/2024 9:00 AM DUMPMAN Appointment [facility] Outpatient Rehab [address] [place] [address] [place] [address] [place] [address] [place] [address] [place] [address] 02/24/2024 1:30 PM DUMPMAN Appointment [facility] MRI [address] [place] [address] Ihsan Logan, [address] [place] [address] 02/26/2024 9:00 AM DUMPMAN Appointment [facility] Outpatient Rehab [address] [place] [address] [place] [address] [place] [address] [place] [address] [place] [address] 02/26/2024 9:15 AM DUMPMAN Appointment [facility] Outpatient [facility]hab [address] [place] [address] [place] [address] [place] [address] [place] [address] [place] [address] 03/01/2024 9:00 AM DUMPMAN Appointment [facility] Outpatient Rehab [address] [place] [address] [place] [address] [place] [address] [place] [address] [place] [address] Lorene Branch, OBSERVATION NURSE 03/02/2024 12:27 PM DUMPMAN Hospital Encounter [facility] Surgery [address] [place] [address] [place] [address] [place] [address] 03/02/2024 12:27 PM DUMPMAN - 03/02/2024 1:07 PM DUMPMAN Surgery [facility] [address] [place] [address] [place] [address] [place] [address] MANIPULATION SHOULDER 03/05/2024 9:00 AM DUMPMAN Appointment [facility] Outpatient Rehab [address] [place] [address] [place] [address] [place] [address] Lorene Branch, OBSERVATION NURSE 03/08/2024 9:00 AM DUMPMAN Appointment [facility] Outpatient [facility]hab [address] [place] [address] [place] [address] [place] [address] Lorene Branch, OBSERVATION NURSE 03/11/2024 9:15 AM DUMPMAN Appointment [facility] Outpatient Rehab [address] [place] [address] [place] [address] [place] [address] Lorene Branch, OBSERVATION NURSE 03/15/2024 9:00 AM DUMPMAN Appointment [facility] Outpatient [facility]hab [address] [place] [address] [place] [address] [place] [address] Lorene Branch, OBSERVATION NURSE 03/18/2024 9:15 AM DUMPMAN Appointment [facility] Outpatient [facility] [address] [place] [address] [place] [address] [place] [address] Lorene Branch, OBSERVATION NURSE 03/22/2024 9:00 AM DUMPMAN Appointment [facility] Outpatient Rehab [address] [place] [address] [place] [address] [place] [address] Lorene Branch, OBSERVATION NURSE 03/25/2024 9:15 AM DUMPMAN Appointment [facility] Outpatient Rehab [address] [place] [address] [place] [address] [place] [address] Lorene Branch, OBSERVATION NURSE 04/21/2024 11:20 AM DUMPMAN Office Visit [facility] Family & Internal Medicine [facility] [address] [place] [address] [place] [address] [place] [address] Scheduled Procedures Name Priority Associated Diagnoses Date/Ti me MANIPULATION SHOULDER Adhesive capsulitis of left shoulder 03/02/2024 12:27 PM DUMPMAN INJECTION JOINT Adhesive capsulitis of left shoulder 03/02/2024 12:27 PM DUMPMAN documented as of this encounter Visit Diagnoses Diagnosis Left shoulder pain- Primary Pain in joint, shoulder region Adhesive capsulitis of left shoulder Adhesive capsulitis of shoulder documented in this encounter Additional Health Concerns Assessment Noted Time PHQ-9 Depression Total Score: 24 024 3:24 PM CDT documented as of this encounter Care Teams Stud Setter Relationship Specialty Start Date End Date [place]ger Soriano [place] [address] [place] [address] PCP - General Physician [employer] Director Medical 09/16/23 documented as of this encounter
--- OUTSIDE RECORDS SUMMARY | 2024-02-12 03:30 | XMS_ITS | Encounter Summary ---
Author Organization [facility] Address [facility]6 [place] [address] [place] [address] Care Team Providers Care Anchor Operator Name Role Phone Marv Young NP Primary Care Provide r Brennon Flores MD Primary Care Provider [phone] Holger Soriano Primary Care Provider [phone] Encounter Details Date Type Department Care Team (Late Contact Info) Description 08/12/2023 RealOps Message Enc [facility] Family & Internal Medicine [facility] [address] [place] [address] [facility] Provider medications Social History Tobacco Use Types Packs/Day Years Used Date Smoking Tobacco: Former Cigarettes Q uit: 03/18/2023 Passive Smoke Exposure: Current Smokeless Tobacco: Never Alcohol Use Standard Drinks/Week Comments Yes 0 (1 standard drink = 0.6 oz pur e alcohol) PHQ-2 Answer Date Recorded Patient Health Questionnaire-2 Score 0 05/16/2023 Comments No Sex and Gender Information Value Date Recorded Sex Assigned at Female 06/05/2023 1:14 PM CDT Legal Sex Female 5:27 PM CDT Gender Identity Female 06/05/2023 1:14 PM CDT Sexual Orientation Straight 06/05/2023 1: 14 PM CDT documented as of this encounter Plan of Treatment Upcoming Encounters Date Type Department Care Team (Late Contact Info) Description 02/12/2024 9:00 AM MANAGER OF RADIOLOGY Appointment [facility] Outpatient Rehab [id number] [place] [address] [place] [address] [place] [address] [place] [address] [place] [address] 02/12/2024 2:00 PM MANAGER OF RADIOLOGY Appointment [facility] MRI [address] [place] [address] [place] [address] [place] [address] 02/16/2024 9:00 AM MANAGER OF RADIOLOGY Appointment [facility] Outpatient Rehab [address] [place] [address] [place] [address] [place] [address] [place] [address] [place] [address] 02/19/2024 8:45 AM MANAGER OF RADIOLOGY Appointment [facility] Outpatient Rehab [address] [place] [address] [place] [address] [place] [address] [place] [address] [place] [address] 02/19/2024 9:00 AM MANAGER OF RADIOLOGY Appointment [facility] Outpatient Rehab [address] [place] [address] [place] [address] [place] [address] [place] [address] [place] [address] 02/23/2024 9:00 AM MANAGER OF RADIOLOGY Appointment [facility] Outpatient Rehab [address] [place] [address] [place] [address] [place] [address] [place] [address] [place] [address] 02/24/2024 1:30 PM MANAGER OF RADIOLOGY Appointment [address] [address] Ihsan Logan, [address] [place] [address] 02/26/2024 9:00 AM MANAGER OF RADIOLOGY Appointment [facility] Outpatient Rehab [address] [place] [address] [place] [address] [place] [address] [place] [address] [place] [address] 02/26/2024 9:15 AM MANAGER OF RADIOLOGY Appointment [facility] Outpatient Rehab [address] [place] [address] [place] [address] [place] [address] [place] [address] [place] [address] 03/01/2024 9:00 AM MANAGER OF RADIOLOGY Appointment [facility] Outpatient [facility]hab [address] [place] [address] [place] [address] [place] [address] [place] [address] [place] [address] Lorene Branch, COMPTROLLER 03/02/2024 12:27 PM MANAGER OF RADIOLOGY Hospital Encounter [facility] [address] [place] [address] [place] [address] [place] [address] 03/02/2024 12:27 PM MANAGER OF RADIOLOGY - 03/02/2024 1:07 PM MANAGER OF RADIOLOGY Surgery [facility] Surgery [address] [place] [address] [place] [address] [place] [address] MANIPULATION SHOULDER 03/05/2024 9:00 AM MANAGER OF RADIOLOGY Appointment [facility] Outpatient [facility]hab [address] [place] [address] [place] [address] [place] [address] Lorene Branch, COMPTROLLER 03/08/2024 9:00 AM MANAGER OF RADIOLOGY Appointment [facility] Out[facility]hab [address] [place] [address] [place] [address] [place] [address] Lorene Branch, COMPTROLLER 03/11/2024 9:15 AM MANAGER OF RADIOLOGY Appointment [facility] Outpatient Rehab [address] [place] [address] [place] [address] [place] [address] Lorene Branch, COMPTROLLER 03/15/2024 9:00 AM MANAGER OF RADIOLOGY Appointment [facility] Outpatient [facility]hab [address] [place] [address] [place] [address] [place] [address] Lorene Branch, COMPTROLLER 03/18/2024 9:15 AM MANAGER OF RADIOLOGY Appointment [facility] Outpatient [facility]hab [address] [place] [address] [place] [address] [place] [address] Lorene Branch, COMPTROLLER 03/22/2024 9:00 AM MANAGER OF RADIOLOGY Appointment [facility] Outpatient Rehab [address] [place] [address] [place] [address] [place] [address] Lorene Branch, COMPTROLLER 03/25/2024 9:15 AM MANAGER OF RADIOLOGY Appointment [facility] Outpatient Rehab [address] [place] [address] [place] [address] [place] [address] Lorene Branch, COMPTROLLER 04/21/2024 11:20 AM MANAGER OF RADIOLOGY Office Visit [facility] Family & Internal Medicine [facility] [address] [place] [address] [place] [address] [place] [address] Scheduled Procedures Name Priority Associated Diagnoses Date/Ti me MANIPULATION SHOULDER Adhesive capsulitis of left shoulder 03/02/2024 12:27 PM MANAGER OF RADIOLOGY INJECTION JOINT Adhesive capsulitis of left shoulder 03/02/2024 12:27 PM MANAGER OF RADIOLOGY documented as of this encounter Visit Diagnoses Not on filedocumented in this encounter Additional Health Concerns Infection Onset Date Last Indicated Resolved Time COVID-19 Rule Out 10/17/2023 10/17/2023 10/17/2023 10:57 AM CDT COVID-19 Rule Out 12/29/2023 12/29/2023 12/29/2023 12:59 PM MANAGER OF RADIOLOGY Assessment Noted Time PHQ-9 Depression Total Score: 5 03/18/19 2:22 PM MANAGER OF RADIOLOGY documented as of this encounter Care Teams Anchor Operator Relationship Specialty Start Date End Date Marv Young NP PCP - General NURSE [facility] 03/11/23 09/14/23 [place] [address] [facility] [address] [place] [address] PCP - General INTERNAL MEDICINE 09/15/23 09/15/23 [place] [address] [place] [address] PCP - General Physician Exercise Instructor Medical 09/16/23 documented as of this encounter
--- OUTSIDE RECORDS SUMMARY | 2024-02-12 03:30 | XMS_ITS | Encounter Summary ---
Author Organization [facility] Address [facility]6 [facility] [place], [place] [id number] [place] [address] Care Team Providers Care Solvent Station Attendant Name Role Phone Holger Soriano Primary Care Provider [phone] Encounter Details Date Type Department Care Team (Latest Contact Info) Description 11/07/2023 2:30 PM CDT - 11/07/2023 11:59 PM CDT Hospital Encounter [facility] [address] [place] [address] Syeda Sahni, [facility] [address] [facility], [address] [place] [address] Discharge Disposition: Home or Self Care (Routine [...] at bedtime. at bedtime 90 tablet 09/16/2023 cyclobenzaprine (FLEXERIL) 10 MG tablet Take 1 [...] capsuleIndication s:Chronic left shoulder pain Take 1 capsule (300 mg total) by mouth every evening for 30 days. 30 capsule 10/17/2023 4 meloxicam (MOBIC) 15 MG tabletIndications :Acute bilateral low back pain with bilateral sciatica Take 1 tablet (15 mg total) by mouth daily. 30 tablet 11/07/2023 4 progesterone (PROMETRIUM) 100 MG capsuleIndication s:Menopausal and female climacteric states take 1 capsule by mouth every day 90 capsule 1 06/10/2023 4 semaglutide (OZEMPIC) 1 mg/dose injection (PEN)Indications: Type 2 diabetes mellitus without complication, with long-term current use of insulin ([facility]) Inject 1 mg into the skin once a week. 3 mL 3 07/04/2023 4 SUMAtriptan (IMITREX) 25 MG tabletIndications :Migraine with status migrainosus, not intractable, unspecified migraine type Take 1 tablet (25 mg total) by mouth daily as needed for Migraine. Max of 8 tablets (200 mg) in a 24 hour period. 30 tablet 2 09/16/2023 4 documented as of this encounter Plan of Treatment Upcoming Encounters Date Type Department Care Team (Late st Contact Info) Description 02/12/2024 9:00 AM HOSPITAL WARD CLERK Appointment [facility] [address] [place] [address] [place] [address] [place] [address] [place] [address] [place] [address] 02/12/2024 2:00 PM HOSPITAL WARD CLERK Appointment [facility] [address] [place] [address] [place] [address] [place] [address] 02/16/2024 9:00 AM HOSPITAL WARD CLERK Appointment [facility] [address] [place] [address] [place] [address] [place] [address] [place] [address] [place] [address] 02/19/2024 8:45 AM HOSPITAL WARD CLERK Appointment [facility] [address] [place] [address] [place] [address] [place] [address] [place] [address] [place] [address] 02/19/2024 9:00 AM HOSPITAL WARD CLERK Appointment [facility] [address] [place] [address] [place] [address] [place] [address] [place] [address] [place] [address] 02/23/2024 9:00 AM HOSPITAL WARD CLERK Appointment [facility] [address] [place] [address] [place] [address] [place] [address] [place] [address] [place] [address] 02/24/2024 1:30 PM HOSPITAL WARD CLERK Appointment [facility] [address] [place] [address] [place] [address] [place] [address] 02/26/2024 9:00 AM HOSPITAL WARD CLERK Appointment [facility] [address] [place] [address], [place] [address] [place] [address] [place] [address] [place] [address] [place] [address] 02/26/2024 9:15 AM HOSPITAL WARD CLERK Appointment [facility] [address] [place] [address] [place] [address] [place] [address] [place] [address] [place] [address] 03/01/2024 9:00 AM HOSPITAL WARD CLERK Appointment [facility] [address] [place] [address] [place] [address] [place] [address] [place] [address] [place] [address] Lorene Branch, TRAVELING NURSE 03/02/2024 12:27 PM HOSPITAL WARD CLERK Hospital Encounter [address] [address] [place] [address] [place] [address] 03/02/2024 12:27 PM HOSPITAL WARD CLERK - 03/02/2024 1:07 PM HOSPITAL WARD CLERK Surgery [facility] Surgery [address] [place] [address] [place] [address] [place] [address] MANIPULATION SHOULDER 03/05/2024 9:00 AM HOSPITAL WARD CLERK Appointment [facility] [address] [place] [address] [place] [address] [place] [address] Lorene Branch, TRAVELING NURSE 03/08/2024 9:00 AM HOSPITAL WARD CLERK Appointment [facility] [address] [place] [address] [place] [address] [place] [address] Lorene Branch, TRAVELING NURSE 03/11/2024 9:15 AM HOSPITAL WARD CLERK Appointment [facility] [address] [place] [address] [place] [address] [place] [address] Lorene Branch, TRAVELING NURSE 03/15/2024 9:00 AM HOSPITAL WARD CLERK Appointment [facility] [address] [place] [address] [place] [address] [place] [address] Lorene Branch, TRAVELING NURSE 03/18/2024 9:15 AM HOSPITAL WARD CLERK Appointment [facility] [address] [place] [address] [place] [address] [place] [address] Chantal Branchreginald Kennedy, TRAVELING NURSE 03/22/2024 9:00 AM HOSPITAL WARD CLERK Appointment [facility] [address] [place] [address] [place] [address] [place], [place] [id number] hCantal Branchreginald Kennedy, TRAVELING NURSE 03/25/2024 9:15 AM HOSPITAL WARD CLERK Appointment [facility] [address] [place] [address] [place] [address] [place] [address] Jose Carlos, Lorene L, TRAVELING NURSE 04/21/2024 11:20 AM HOSPITAL WARD CLERK Office Visit [facility] Medical [facility] Family & Internal Medicine [facility] [address] [place] [phone] [place] [address] [place], [place] [id number] Scheduled Procedures Name Priority Associated Diagnoses Date/Ti me MANIPULATION SHOULDER Adhesive capsulitis of left shoulder 03/02/2024 12:27 PM HOSPITAL WARD CLERK INJECTION JOINT Adhesive capsulitis of left shoulder 03/02/2024 12:27 PM HOSPITAL WARD CLERK documented as of this encounter Procedures Procedure Name Priority Date/Time Associated Diagnosis Comments XR LUMB SPINE 3V Routine 11/07/2023 2:42 PM CDT Acute bilateral low back pain with bilateral sciatica documented in this encounter Results * XR LUMB SPINE 3V (11/07/2023 2:42 PM CDT) Anatomical Region Laterality Modality Spine Radiographic Evelyn ging 11/07/2023 6:26 PM CDT Impressions 11/07/2023 6:28 PM CDT IMPRESSION: 1. ??No acute findings. Postoperative findings as detailed above. Ordered By: SYEDA SAHNI Interpreted By: Justice Walker, 11/07/2023 6:26 PM Narrative 11/07/2023 6:[address] [facility] [address] [place] [address] IMAGING STUDIES: ? XR LUMB SPINE 3V ? DATE: ??11/07/2023 2:31 PM COMPARISON: ??No comparisons. CLINICAL HISTORY: ??back pain, prior surgery, fall in February ?? . FINDINGS: No evidence of acute fracture or dislocation. Osteopenia limits exam. Vertebral body heights are well-maintained.. No spondylolisthesis. Mild to moderate multilevel endplate and facet joint degenerative change. Interbody fusion at L4-5. Anterior fixating plate and screws are intact at L4 and L5.. Minor degenerative change in both sacroiliac joints. No paraspinal lesions. Procedure Note Basil Walker MD - 11/07/2023 [facility] [address] [place] [address] IMAGING STUDIES: XR LUMB SPINE 3V DATE: 11/07/2023 2:31 PM COMPARISON: No comparisons. CLINICAL HISTORY: back pain, prior surgery, fall in February . FINDINGS: No evidence of acute fracture or dislocation. Osteopenia limits exam. Vertebral body heights are well-maintained.. No spondylolisthesis. Mild tomoderate multilevel endplate and facet joint degenerative change. Interbody fusion at L4-5. Anterior fixating plate and screws are intact atL4 and L5.. Minor degenerative change in both sacroiliac joints. No paraspinallesions. IMPRESSION: 1. No acute findings. Postoperative findings as detailed above. Ordered By: SYEDA SAHNI Interpreted By: Justice Walker, 11/07/2023 6:26 PM us Syeda R Mayco [facility] Final Re sult documented in this encounter Visit Diagnoses Diagnosis Acute bilateral low back pain with bilateral sciatica Adhesive capsulitis of left shoulder Adhesive capsulitis of shoulder documented in this encounter Additional Health Concerns Assessment Noted Time PHQ-9 Depression Total Score: 024 3:24 PM CDT documented as of this encounter Care Teams Solvent Station Attendant Relationship Specialty [place] [address] [place] [address] PCP - General Physician Hemstitcher Medical 09/16/23 documented as of this encounter
--- OUTSIDE RECORDS SUMMARY | 2024-02-12 03:30 | XMS_ITS | Encounter Summary ---
Author Organization [facility] Address [facility] [place] [address] [place] [address] Care Team Providers Care Wash Driller Name Role Phone Holger Soriano Primary Care Provider [phone] Encounter Details Date Type Department Care Team (Latest Contact Info) Description 10/23/2023 Travel Social History Tobacco Use Types Packs/Day [...] st Contact Info) Description 02/12/2024 9:00 AM ACADEMIC PROGRAM SPECIALIST Appointment [facility] [address] [place] [address] [place] [address] [place] [address] [place] [address] [place], [place] [id number] 02/12/2024 2:00 PM ACADEMIC PROGRAM SPECIALIST Appointment [facility] MRI [address] [place] [address] [place] [address] [place] [address] 02/16/2024 9:00 AM ACADEMIC PROGRAM SPECIALIST Appointment [facility] [address] [place] [address] [place] [address] [place] [address] [place] [address] [place] [address] 02/19/2024 8:45 AM ACADEMIC PROGRAM SPECIALIST Appointment [facility] [address] [place] [address] [place] [address] [place] [address] [place] [address] [place] [address] 02/19/2024 9:00 AM ACADEMIC PROGRAM SPECIALIST Appointment [facility] [address] [place] [address] [place] [address] [place] [address] [place] [address] [place] [address] 02/23/2024 9:00 AM ACADEMIC PROGRAM SPECIALIST Appointment [facility] [address] [place] [address] [place] [address] [place] [address] [place] [address] [place] [address] 02/24/2024 1:30 PM ACADEMIC PROGRAM SPECIALIST Appointment [facility] [address] [place] [address] [place] [address] [place] [address] 02/26/2024 9:00 AM ACADEMIC PROGRAM SPECIALIST Appointment [facility] [address] [place] [address] [place] [address] [place] [address] [place] [address] [place] [address] 02/26/2024 9:15 AM ACADEMIC PROGRAM SPECIALIST Appointment [facility] [address] [place] [address] [place] [address] [place] [address] [place] [address] [place] [address] 03/01/2024 9:00 AM ACADEMIC PROGRAM SPECIALIST Appointment [facility] [address] [place] [address] [place] [address] [place] [address] [place] [address] [place] [address] Lorene Branch, CLOTH BIN PACKER 03/02/2024 12:27 PM ACADEMIC PROGRAM SPECIALIST Hospital Encounter [facility] [address] [place] [address] [place] [address] [place] [address] 03/02/2024 12:27 PM ACADEMIC PROGRAM SPECIALIST - 03/02/2024 1:07 PM ACADEMIC PROGRAM SPECIALIST Surgery [address] [address] [place] [address] [place] [address] MANIPULATION SHOULDER 03/05/2024 9:00 AM ACADEMIC PROGRAM SPECIALIST Appointment [facility] [address] [place] [address] [place] [address] [place] [address] Lorene Branch, CLOTH BIN PACKER 03/08/2024 9:00 AM ACADEMIC PROGRAM SPECIALIST Appointment [facility] [address] [place] [address] [place] [address] [place] [address] Lorene Branch, CLOTH BIN PACKER 03/11/2024 9:15 AM ACADEMIC PROGRAM SPECIALIST Appointment [facility] [address] [place] [address] [place] [address] [place] [address] Lorene Branch, CLOTH BIN PACKER 03/15/2024 9:00 AM ACADEMIC PROGRAM SPECIALIST Appointment [facility] [address] [place] [address] [place] [address] [place] [address] Lorene Branch, CLOTH BIN PACKER 03/18/2024 9:15 AM ACADEMIC PROGRAM SPECIALIST Appointment [facility] [address] [place] [address] [place] [address] [place] [address] Lorene Branch, CLOTH BIN PACKER 03/22/2024 9:00 AM ACADEMIC PROGRAM SPECIALIST Appointment [facility] [address] [place] [address] [place] [address] [place] [address] Lorene Branch, CLOTH BIN PACKER 03/25/2024 9:15 AM ACADEMIC PROGRAM SPECIALIST Appointment [facility] [address] [place] [address] [place] [address] [place] [address] Lorene Branch, CLOTH BIN PACKER 04/21/2024 11:20 AM ACADEMIC PROGRAM SPECIALIST Office Visit [facility] Medical Group Family & Internal Medicine - [address] [address] [place] [address] [place] [address] Scheduled Procedures Name Priority Associated Diagnoses Date/Ti me MANIPULATION SHOULDER Adhesive capsulitis of left shoulder 03/02/2024 12:27 PM ACADEMIC PROGRAM SPECIALIST INJECTION JOINT Adhesive capsulitis of left shoulder 03/02/2024 12:27 PM ACADEMIC PROGRAM SPECIALIST documented as of this encounter Visit Diagnoses Not on filedocumented in this encounter Additional Health Concerns Assessment Noted Time PHQ-9 Depression Total Score: 024 3:24 PM CDT documented as of this encounter Care Teams Wash Driller Relationship Specialty [place] [address] [place] [address] PCP - General Physician Hand I Blocker Medical 09/16/23 documented as of this encounter
--- OUTSIDE RECORDS SUMMARY | 2024-02-12 03:30 | XMS_ITS | Encounter Summary ---
Author Organization [facility] Address [facility]6 [facility] [place], [place] [address] [place] [address] Care Team Providers Care Portrait Consultant Name Role Phone Holger Soriano Primary Care Provider [phone] Reason for Referral * Physical Medicine (Urgent) - Authorized Specialty Diagnoses / Procedures Referred By Contac t Referred To Contact PHYSICAL THERAPY Diagnoses Left shoulder pain Low back pain Procedures OFFICE/OUTPATIENT NEW LOW MDM 30-44 MINUTES OFFICE/OUTPT VISIT,NEW,LEVL IV OFFICE/OUTPT VISIT,NEW,LEVL V OFFICE/OUTPT VISIT,EST,LEVL III OFFICE/OUTPT VISIT,EST,LEVL IV OFFICE/OUTPT VISIT,EST[place] [address] [place] [address] Phone: tel: fax: [facility] [address] [place] [address] Phone: tel: fax: Referral ID Status Reason Start Date Expiration Date Visits Requested Visits Authorized [id number] Authorized Physical Therapy 10/13/2023 11/11/2024 99 99 Reason for Visit * Reason Onset Date Comments Orders 10/08/2023 Encounter Details Date Type Department Care Team (Late st Contact Info) Description 10/08/2023 Telephone [facility] Family & Internal Medicine [facility] [address] [place] [address] [place] [address] [place] [address] Orders Social History Tobacco Use Types Packs/Day Years [...] as of this encounter Progress Notes * Jasiel Barber RN - 11/13/2023 4:10 PM CDTAddended by: JASIEL BARBER on: 11/13/2023 04:10 PM Modules accepted: Orders * Jasiel Barber RN - 11/13/2023 3:52 PM CDTAddended by: JASIEL BARBER on: 11/13/2023 03:52 PM Modules accepted: Orders * Isabela Fernandes RN - 10/15/2023 4:07 PM CDT Noted. * Ani Rayo - 10/15/2023 2:55 PM CDT Pt called to check on referral Let pt know that it was sent and she would need to wait for a call * Isabela Fernandes RN - 10/13/2023 1:58 PM CDT Referral placed. * Isabela Fernandes RN - 10/13/2023 1:58 PM CDTAddended by: ISABELA FERNANDES on: 10/13/2023 01:58 PM Modules accepted: Orders * Jen De Guzman - 10/13/2023 11:08 AM CDT Pt came by the clinic to check and see if this referral was placed. Please send referral to [facility]. Thanks * Chanelle Buckner MA - 10/09/2023 8:29 AM CDT Okay to place PT referral? * Jen De Guzman - 10/08/2023 4:14 PM CDT Pt called as she is under the care of a chiropractor for L frozen shoulder and was recommended to be referred for PT. Pt is asked for PT for her L shoulder to be done here at [facility]. Thanks documented in this encounter Plan of Treatment Upcoming Encounters Date Type Department Care Team (Late st Contact Info) Description 02/12/2024 9:00 AM SOLAR INSTALLATION SUPERVISOR Appointment [facility] [address] [place], [place] [id number] [place] [address] [place], [place] [address] [place] [address] [place] [address] 02/12/2024 2:00 PM SOLAR INSTALLATION SUPERVISOR Appointment [facility] MRI [address] [place] [address] [place] [address] [place] [address] 02/16/2024 9:00 AM SOLAR INSTALLATION SUPERVISOR Appointment [facility] [address] [place] [address] [place] [address] [place] [address] [place] [address] [place] [address] 02/19/2024 8:45 AM SOLAR INSTALLATION SUPERVISOR Appointment [facility] [address] [place] [address] [place] [address] [place] [address] [place] [address] [place] [address] 02/19/2024 9:00 AM SOLAR INSTALLATION SUPERVISOR Appointment [facility] [address] [place] [address] [place] [address] [place] [address] [place] [address] [place] [address] 02/23/2024 9:00 AM SOLAR INSTALLATION SUPERVISOR Appointment [facility] [address] [place] [address] [place] [address] [place] [address] [place] [address] [place] [address] 02/24/2024 1:30 PM SOLAR INSTALLATION SUPERVISOR Appointment [address] [address] [place] [address] [place] [address] 02/26/2024 9:00 AM SOLAR INSTALLATION SUPERVISOR Appointment [facility] [address] [place] [address] [place] [address] [place] [address] [place] [address] [place] [address] 02/26/2024 9:15 AM SOLAR INSTALLATION SUPERVISOR Appointment [facility] [address] [place] [address] [place] [address] [place] [address] [place] [address] [place] [address] 03/01/2024 9:00 AM SOLAR INSTALLATION SUPERVISOR Appointment [facility] [address] [place] [address] [place] [address] [place] [address] [place] [address] [place] [address] Lorene Branch, PASSENGER CAR INSPECTOR 03/02/2024 12:27 PM SOLAR INSTALLATION SUPERVISOR Hospital Encounter [facility] Surgery [address] [place] [address] [place] [address] [place] [address] 03/02/2024 12:27 PM SOLAR INSTALLATION SUPERVISOR - 03/02/2024 1:07 PM SOLAR INSTALLATION SUPERVISOR Surgery [facility] Surgery [address] [place] [address] [place] [address] [place] [address] MANIPULATION SHOULDER 03/05/2024 9:00 AM SOLAR INSTALLATION SUPERVISOR Appointment [facility] [address] [place] [address] [place] [address] [place] [address] Lorene Branch, PASSENGER CAR INSPECTOR 03/08/2024 9:00 AM SOLAR INSTALLATION SUPERVISOR Appointment [facility] [address] [place] [address] [place] [address] [place] [address] Lorene Branch, PASSENGER CAR INSPECTOR 03/11/2024 9:15 AM SOLAR INSTALLATION SUPERVISOR Appointment [facility] [address] [place] [address] [place] [address] [place] [address] Lorene Branch, PASSENGER CAR INSPECTOR 03/15/2024 9:00 AM SOLAR INSTALLATION SUPERVISOR Appointment [facility] [address] [place] [address] [place] [address] [place] [address] Lorene Branch, PASSENGER CAR INSPECTOR 03/18/2024 9:15 AM SOLAR INSTALLATION SUPERVISOR Appointment [facility] [address] [place] [address] [place] [address] [place] [address] Lorene Branch, PASSENGER CAR INSPECTOR 03/22/2024 9:00 AM SOLAR INSTALLATION SUPERVISOR Appointment [facility] [address] [place] [address] [place] [address] [place] [address] Lorene Branch, PASSENGER CAR INSPECTOR 03/25/2024 9:15 AM SOLAR INSTALLATION SUPERVISOR Appointment [facility] [address] [place] [address] [place] [address] [place] [address] Lorene Branch, PASSENGER CAR INSPECTOR 04/21/2024 11:20 AM SOLAR INSTALLATION SUPERVISOR Office Visit [facility] Family & Internal Medicine [address] [address] [place] [address] [place] [address] Scheduled Procedures Name Priority Associated Diagnoses Date/Ti me MANIPULATION SHOULDER Adhesive capsulitis of left shoulder 03/02/2024 12:27 PM SOLAR INSTALLATION SUPERVISOR INJECTION JOINT Adhesive capsulitis of left shoulder 03/02/2024 12:27 PM SOLAR INSTALLATION SUPERVISOR Scheduled Referrals Name Type Priority Associated Diagnoses Orde r Schedule Ambulatory referral to Physical Therapy Referral Routine Left shoulder pain Low back pain Ordered: 11/13/2023 documented as of this encounter Visit Diagnoses Diagnosis Left shoulder pain- Primary Pain in joint, shoulder region Low back pain Lumbago Adhesive capsulitis of left shoulder Adhesive capsulitis of shoulder documented in this encounter Additional Health Concerns Infection Onset Date Last Indicated Resolved Time COVID-19 Rule Out 10/17/2023 10/17/2023 10/17/2023 10:57 AM CDT Assessment Noted Time PHQ-9 Depression Total Score: 24 024 3:24 PM CDT documented as of this encounter Care Teams Portrait Consultant Relationship Specialty [place] [address] [place] [address] PCP - General Physician Print Room Worker Medical 09/16/23 documented as of this encounter
--- OUTSIDE RECORDS SUMMARY | 2024-02-12 03:30 | XMS_ITS | Encounter Summary ---
Author Organization [facility] Address [facility] [place] [address] [place] [address] Care Team Providers Care Digital Design Engineer Name Role Phone Holger Soriano Primary Care Provider [phone] Reason for Visit * Reason Comments Follow Up 3 month follow upPt has not had any of her medication due to no refill from previous PCP Diabetes Depression Insomnia NOS Encounter Details Date Type Department Care Team (Late st Contact Info) Description 09/16/2023 2:20 PM CDT Office Visit [facility] Medical Group Family & Internal Medicine [facility] [address] [place] [address] Marv Young, GRACE [address] [place] [address] [place] [address] Holger Soriano [place] [id number] [place] [id number] Follow Up (3 month follow up/Pt has not had any of her medication due to no refill from previous PCP); Diabetes; Depression; Insomnia NOS Social History Tobacco Use Types Packs/Day Years Used Date Smoking Tobacco: Former Cigarettes Q uit: 03/18/2023 Passive Smoke Exposure: Current Smokeless Tobacco: Never Tobacco Cessation:Counseling Given: Yes Alcohol Use Standard Drinks/Week Comments Yes 0 (1 standard drink = 0.6 oz pur e alcohol) PHQ-2 Answer Date Recorded Patient Health Questionnaire-2 Score 4 09/16/2023 Comments No Sex and Gender Information Value Date Recorded Sex Assigned at Female 06/05/2023 1:14 PM CDT Legal Sex Female 5:27 PM CDT Gender Identity Female 06/05/2023 1:14 PM CDT Sexual Orientation Straight 06/05/2023 1 :14 PM CDT documented as of this encounter Last Filed Vital Signs Vital Sign Reading Time Taken Comments Blood Pressure 129/88 09/16/2023 2:36 PM CDT Pulse 84 09/16/2023 2:36 PM CDT Temperature 36.7 ??C (98 ??F) 09/16/2023 2:36 PM CDT Respiratory Rate 18 09/16/2023 2:36 PM CDT Oxygen Saturation 98% 09/16/2023 2:36 PM CDT Inhaled Oxygen Concentration - - Weight 84.8 kg (187 lb) 09/16/2023 2:36 PM CDT Height 157.5 cm (5' 2 ) 09/16/2023 2:36 PM CDT Body Mass Index 34.2 09/16/2023 2:36 PM CDT documented in this encounter Progress Notes * TYLER Weaver - 09/16/2023 2:20 PM CDT Reason for Visit: Follow Up (3 month follow up/Pt has not had any of her medication due to no refill from previous PCP), Diabetes, Depression, and Insomnia NOS History of Present Illness: 48-year-old female here to transfer care from [place] to [place]. She was to see Dr. Tripp but patient states she does not want to have to see another doctor. Would rather stick with me. Patient has multiple medical problems as been out of her medications for 2 months now. Hannah would not refill her medications because she had moved out of town temporarily but was back a month ago. 1.Type 2 diabetes without long-term insulin. Patient was on Ozempic 1 mg weekly. Tolerating it welland losing weight. Hemoglobin A1c was controlled nicely at 5.2. Denies any nausea vomiting or abdominal pain. 2. Bipolar with depression patient was on duloxetine 30 mg daily Abilify 15 mg daily and Seroquel 100 mg daily. She also takes Xanax 0.5 mg as needed but usually not more than once a day. I told her she should not be on the Abilify and Seroquel they are very similar medications and can discern thatshe may have adverse reactions due to this. So we will hold off on the Abilify for now. Denies SI/HI. I reviewed her depression and anxiety screenings and discussed them with patient. 3. Mild intermittent asthma controlled with albuterol HFA only uses less than 4 times a month. 4. Left shoulder pain radiating from the neck: Patient has seen Dr. Logan in the past for this MRIshowed no rotator cuff tear. Patient states that he may be ordering another MRI but would like to get a C-spine MRI first. Thinking it may be radiation from the neck. Patient was taking meloxicam 15 mg daily. Will have her do this for now and she needs to follow-up with Dr. Logan. The MRI [place] but she states she has moved back and she should be able to go ahead and call and get this scheduled no numbness or weakness in the left arm or hand. Pain with lifting things overhead Follow Up Diabetes Depression ROS: Review of Systems Psychiatric/Behavioral: Positive for depression. All other systems reviewed and are negative. Medications: Current Outpatient Medications: ALPRAZolam (XANAX) 0.5 MG tablet, Take 1 tablet (0.5 mg total) by mouth daily as needed for Sleep.,Disp: 30 tablet, Rfl: 2 DULoxetine (CYMBALTA) 30 MG capsule, Take 1 capsule (30 mg total) by mouth daily., Disp: 180 capsule, Rfl: 1 meloxicam (MOBIC) 15 MG tablet, Take 1 tablet (15 mg total) by mouth daily., Disp: 30 tablet, Rfl: 2 QUEtiapine (SEROQUEL) 100 MG tablet, Take 1 tablet (100 mg total) by mouth nightly at bedtime. at bedtime, Disp: 90 tablet, Rfl: 0 semaglutide (OZEMPIC) 1 mg/dose injection (PEN), Inject 1 mg into the skin once a week for 28 days.Indications: Diabetes, Disp: 3 mL, Rfl: 0 SUMAtriptan (IMITREX) 25 MG tablet, Take 1 tablet (25 mg total) by mouth daily as needed for Migraine. Max of 8 tablets (200 mg) in a 24 hour period., Disp: 30 tablet, Rfl: 2 albuterol sulfate HFA 108 (90 Base) MCG/ACT inhaler, Inhale 2 puffs into the lungs every 4 (four) hours as needed for Wheezing or Shortness of breath. (Patient not taking: Reported on 09/16/2023), Disp: 18 g, Rfl: 0 cyclobenzaprine (FLEXERIL) 10 MG tablet, Take 1 tablet (10 mg total) by mouth as needed. FOR MUSCLESPASMS (Patient not taking: Reported on 09/16/2023), Disp: , Rfl: diazePAM (VALIUM) 10 MG tablet, Take 1 tablet (10 mg total) by mouth every 6 (six) hours as needed for Anxiety. One tablet 45 minutes prior to MRI (Patient not taking: Reported on 09/16/2023), Disp: 1tablet, Rfl: 0 DULoxetine (CYMBALTA) 30 MG capsule, Take 1 capsule (30 mg total) by mouth daily. (Patient not taking: Reported on 09/16/2023), Disp: , Rfl: estradiol (ESTRACE) 2 MG tablet, Take 1 tablet (2 mg total) by mouth daily. (Patient not taking: Reported on 09/16/2023), Disp: 28 tablet, Rfl: 2 fluticasone propionate (FLONASE) 50 MCG/ACT nasal spray, 2 sprays by Each Nostril route daily. SHAKE LIQUID (Patient not taking: Reported on 09/16/2023), Disp: , Rfl: progesterone (PROMETRIUM) 100 MG capsule, take 1 capsule by mouth every day (Patient not taking: Reported on 09/16/2023), Disp: 90 capsule, Rfl: 1 semaglutide (OZEMPIC) 1 mg/dose injection (PEN), Inject 1 mg into the skin once a week. (Patient not taking: Reported on 09/16/2023), Disp: 3 mL, Rfl: 3 Allergies Allergen Reactions Parada Anaphylaxis Iodine Rash, Hives and Other (see comment) Reaction: Hives, Iodinated Contrast Media Unknown Itching Lidocaine Hives Ranitidine Unknown Risperidone Other (see comment) Reaction: OTHER REACTION Past Medical History: Diagnosis Date ADHD Asthma ([facility]) COPD (chronic obstructive pulmonary disease) ([facility]) History reviewed. No pertinent surgical history. Social History Socioeconomic History Marital status: Tobacco Use Smoking status: Former Current packs/day: 0.00 Types: Cigarettes Quit date: 03/18/2023 Years since quittin.4 Passive exposure: Current Smokeless tobacco: Never Vaping Use Vaping status: Never Used Substance and Sexual Activity Alcohol use: Yes Drug use: Never Social History Narrative Lives with E-Cigarettes Questions Responses E-Cigarette Use Never User Family History Problem Relation Name Age of Onset Dementia Mother Ovarian Cancer Mother Osteoarthritis Mother Endometriosis Sister Dementia Maternal Grandmother Family Status Relation Name Status Mother (Not Specified) Sister (Not Specified) MGM (Not Specified) No partnership data on file Physical Exam Vitals reviewed. Constitutional: Appearance: Normal appearance. She is obese. Neurological: Mental Status: She is alert. Psychiatric: Mood and Affect: Mood normal. Behavior: Behavior normal. Thought Content: Thought content normal. Judgment: Judgment normal. Filed Vitals: 09/16/23 1436 BP: 129/88 Pulse: 84 Resp: 18 Temp: 98 ??F (36.7 ??C) TempSrc: Core SpO2: 98% Weight: 84.8 kg (187 lb) Height: 1.575 m (5' 2 ) Diagnoses/Impression: 1. Type 2 diabetes mellitus without complication, with long-term current use of insulin (CMS/HCC HHS/HCC) semaglutide (OZEMPIC) 1 mg/dose injection (PEN) 2. Migraine with status migrainosus, not intractable, unspecified migraine type SUMAtriptan (IMITREX) 25 MG tablet 3. Bipolar I disorder with depression (CMS/HCC HHS/HCC) QUEtiapine (SEROQUEL) 100 MG tablet 4. Mild intermittent asthma without complication (HHS/HCC) 5. Radiculopathy of cervicothoracic region meloxicam (MOBIC) 15 MG tablet 6. Depression, unspecified depression type DULoxetine (CYMBALTA) 30 MG capsule 7. Generalized anxiety disorder ALPRAZolam (XANAX) 0.5 MG tablet Recommendations and Plan: Continue medications as below follow-up in 3 months sooner if needed. Orders Placed This Encounter cyclobenzaprine (FLEXERIL) 10 MG tablet SUMAtriptan (IMITREX) 25 MG tablet semaglutide (OZEMPIC) 1 mg/dose injection (PEN) QUEtiapine (SEROQUEL) 100 MG tablet meloxicam (MOBIC) 15 MG tablet DULoxetine (CYMBALTA) 30 MG capsule ALPRAZolam (XANAX) 0.5 MG tablet Reviewed and updated this visit by provider: TYLER WEAVER Referring Provider: No ref. provider found PCP: TYLER WEAVER documented in this encounter Plan of Treatment Upcoming Encounters Date Type Department Care Team (Late st Contact Info) Description 02/12/2024 9:00 AM COPY CENTER ASSOCIATE Appointment [facility] [address] [place] [address] [place] [address] [place] [address] [place] [address] [place], [place] [id number] 02/12/2024 2:00 PM COPY CENTER ASSOCIATE Appointment [facility] [address] [place] [address] [place] [address] [place] [address] 02/16/2024 9:00 AM COPY CENTER ASSOCIATE Appointment [facility] [address] [place] [address] [place] [address] [place] [address] [place] [address] [place], [place] [id number] 02/19/2024 8:45 AM COPY CENTER ASSOCIATE Appointment [facility] [address] [place] [address] [place] [address] [place] [address] [place] [address] [place] [address] 02/19/2024 9:00 AM COPY CENTER ASSOCIATE Appointment [facility] [address] [place] [address] [place] [address] [place] [address] [place] [address] [place] [address] 02/23/2024 9:00 AM COPY CENTER ASSOCIATE Appointment [facility] [address] [place] [address] [place] [address] [place] [address] [place] [address] [place] [address] 02/24/2024 1:30 PM COPY CENTER ASSOCIATE Appointment [facility] MRI [address] [place] [address] Ihsan Logan, [address] [place] [address] 02/26/2024 9:00 AM COPY CENTER ASSOCIATE Appointment [facility] [address] [place] [address] [place] [address] [place] [address] [place] [address] [place] [address] 02/26/2024 9:15 AM COPY CENTER ASSOCIATE Appointment [facility] [address] [place] [address] [place] [address] [place] [address] [place] [address] [place] [address] 03/01/2024 9:00 AM COPY CENTER ASSOCIATE Appointment [facility] [address] [place] [address] [place] [address] [place] [address] [place] [address] [place] [address] Lorene Branch, COLOR PRINTER OPERATOR 03/02/2024 12:27 PM COPY CENTER ASSOCIATE Hospital Encounter [address] [address] [place] [address] [place] [address] 03/02/2024 12:27 PM COPY CENTER ASSOCIATE - 03/02/2024 1:07 PM COPY CENTER ASSOCIATE Surgery [facility] Surgery [address] [place] [address] [place] [address] [place] [address] MANIPULATION SHOULDER 03/05/2024 9:00 AM COPY CENTER ASSOCIATE Appointment [facility] [address] [place] [address] [place] [address] [place] [address] Lorene Branch, COLOR PRINTER OPERATOR 03/08/2024 9:00 AM COPY CENTER ASSOCIATE Appointment [facility] [address] [place] [address] [place] [address] [place] [address] Lorene Branch, COLOR PRINTER OPERATOR 03/11/2024 9:15 AM COPY CENTER ASSOCIATE Appointment [facility] [address] [place] [address] [place] [address] [place] [address] Lorene Branch, COLOR PRINTER OPERATOR 03/15/2024 9:00 AM COPY CENTER ASSOCIATE Appointment [facility] [address] [place] [address] [place] [address] [place] [address] Lorene Branch, COLOR PRINTER OPERATOR 03/18/2024 9:15 AM COPY CENTER ASSOCIATE Appointment [facility] [address] [place] [address] [place] [address] [place] [address] Lorene Branch, COLOR PRINTER OPERATOR 03/22/2024 9:00 AM COPY CENTER ASSOCIATE Appointment [facility] [address] [place] [address] [place] [address] [place] [address] Lorene Branch, COLOR PRINTER OPERATOR 03/25/2024 9:15 AM COPY CENTER ASSOCIATE Appointment [facility] [address] [place] [address] [place] [address] [place] [address] Lorene Branch, COLOR PRINTER OPERATOR 04/21/2024 11:20 AM COPY CENTER ASSOCIATE Office Visit [facility] Medical Group Family & Internal Medicine [facility] [address] [place] [id number] [place] [address] [place] [address] Scheduled Procedures Name Priority Associated Diagnoses Date/Ti me MANIPULATION SHOULDER Adhesive capsulitis of left shoulder 03/02/2024 12:27 PM COPY CENTER ASSOCIATE INJECTION JOINT Adhesive capsulitis of left shoulder 03/02/2024 12:27 PM COPY CENTER ASSOCIATE documented as of this encounter Visit Diagnoses Diagnosis Type 2 diabetes mellitus without complication, with long-term current use of insulin ([facility])- Primary Migraine with status migrainosus, not intractable, unspecified migraine type Bipolar I disorder with depression ([facility]) Bipolar I disorder, most recent episode (or current) depressed, unspecified Mild intermittent asthma without complication ([facility]) Unspecified asthma Radiculopathy of cervicothoracic region Brachial neuritis or radiculitis nos Depression, unspecified depression type Generalized anxiety disorder Adhesive capsulitis of left shoulder Adhesive capsulitis of shoulder documented in this encounter Additional Health Concerns Assessment Noted Time PHQ-9 Depression Total Score: 24 024 3:24 PM CDT documented as of this encounter Care Teams Digital Design Engineer Relationship Specialty Start Date End Date Holger Soriano PA [address] [place] [address], [place] [address] PCP - General Physician Conference Center Manager Medical 09/16/23 documented as of this encounter
--- OUTSIDE RECORDS SUMMARY | 2024-02-12 03:30 | XMS_ITS | Encounter Summary ---
Author Organization [facility] Address [facility] [place] [address] [place] [address] Care Team Providers Care Epitaxial Reactor Technician Name Role Phone Marv Young NP Primary Care Provide r Reason for Visit * Reason Onset Date Comments Medication Request 07/08/2023 Encounter Details Date Type Department Care Team (Late st Contact Info) Description 07/08/2023 Telephone [facility] Medical Group Family & Internal Medicine [facility] [address] [place] [address] Marv Young, GRACE [address] [facility] [place] [address] Medication Request Social History Tobacco Use Types Packs/Day Years [...] as of this encounter Progress Notes * Marv Young NP - 07/08/2023 2:59 PM CDT Patient getting one last refill. She will be seen by ortho this coming next week for a shoulder injection. MRI on board as well. documented in this encounter Plan of Treatment Upcoming Encounters Date Type Department Care Team (Late st Contact Info) Description 02/12/2024 9:00 AM EXECUTIVE SEARCH CONSULTANT Appointment [facility] [address] [place] [address] [place] [address] [place] [address] [place] [address] [place] [address] 02/12/2024 2:00 PM EXECUTIVE SEARCH CONSULTANT [facility]ointment [facility] [address] [place] [address] [place] [address] [place] [address] 02/16/2024 9:00 AM EXECUTIVE SEARCH CONSULTANT [facility]ointment [facility] [address] [place] [address] [place] [address] [place] [address] [place] [address] [place] [address] 02/19/2024 8:45 AM EXECUTIVE SEARCH CONSULTANT Appointment [facility] [address] [place] [address] [place] [address] [place] [address] [place] [address] [place] [address] 02/19/2024 9:00 AM EXECUTIVE SEARCH CONSULTANT Appointment [facility] [address] [place] [address] [place] [address] [place] [address] [place] [address] [place] [address] 02/23/2024 9:00 AM EXECUTIVE SEARCH CONSULTANT Appointment [facility] [address] [place] [address] [place] [address] [place] [address] [place] [address] [place] [address] 02/24/2024 1:30 PM EXECUTIVE SEARCH CONSULTANT Appointment [facility] [address] [place] [address] Ihsan Logan, [address] [place] [address] 02/26/2024 9:00 AM EXECUTIVE SEARCH CONSULTANT Appointment [facility] [address] [place] [address] [place] [address] [place] [address] [place] [address] [place] [address] 02/26/2024 9:15 AM EXECUTIVE SEARCH CONSULTANT Appointment [facility] [address] [place] [address] [place] [address] [place] [address] [place] [address] [place] [address] 03/01/2024 9:00 AM EXECUTIVE SEARCH CONSULTANT Appointment [facility] [address] [place] [address] [place] [address] [place] [address] [place] [address] [place] [address] Lorene Branch, SHEET METAL WORKER APPRENTICE 03/02/2024 12:27 PM EXECUTIVE SEARCH CONSULTANT Hospital Encounter [address] [address] [place] [address] [place] [address] 03/02/2024 12:27 PM EXECUTIVE SEARCH CONSULTANT - 03/02/2024 1:07 PM EXECUTIVE SEARCH CONSULTANT Surgery [facility] Surgery [address] [place] [address] [place] [address] [place] [address] MANIPULATION SHOULDER 03/05/2024 9:00 AM EXECUTIVE SEARCH CONSULTANT Appointment [facility] [address] [place] [address] [place] [address] [place] [address] Lorene Branch, SHEET METAL WORKER APPRENTICE 03/08/2024 9:00 AM EXECUTIVE SEARCH CONSULTANT Appointment [facility] [address] [place] [address] [place] [address] [place] [address] Lorene Branch, SHEET METAL WORKER APPRENTICE 03/11/2024 9:15 AM EXECUTIVE SEARCH CONSULTANT Appointment [facility] [address] [place] [address] [place] [address] [place] [address] Lorene Branch, SHEET METAL WORKER APPRENTICE 03/15/2024 9:00 AM EXECUTIVE SEARCH CONSULTANT Appointment [facility] [address] [place] [address] [place] [address] [place] [address] Lorene Branch, SHEET METAL WORKER APPRENTICE 03/18/2024 9:15 AM EXECUTIVE SEARCH CONSULTANT Appointment [facility] [address] [place] [address] [place] [address] [place] [address] Lorene Branch, SHEET METAL WORKER APPRENTICE 03/22/2024 9:00 AM EXECUTIVE SEARCH CONSULTANT Appointment [facility] [address] [place] [address] [place] [address] [place] [address] Jose Carlos Lorene L, SHEET METAL WORKER APPRENTICE 03/25/2024 9:15 AM EXECUTIVE SEARCH CONSULTANT Appointment [facility] [address] [place] [address] [place] [address] [place], [place] [id number] Lorene Branch Marcia, SHEET METAL WORKER APPRENTICE 04/21/2024 11:20 AM EXECUTIVE SEARCH CONSULTANT Office Visit [facility] Medical Group Family & Internal Medicine - [place] [address] [place] [phone] [place] [address] [place] [address] Scheduled Procedures Name Priority Associated Diagnoses Date/Ti me MANIPULATION SHOULDER Adhesive capsulitis of left shoulder 03/02/2024 12:27 PM EXECUTIVE SEARCH CONSULTANT INJECTION JOINT Adhesive capsulitis of left shoulder 03/02/2024 12:27 PM EXECUTIVE SEARCH CONSULTANT documented as of this encounter Visit Diagnoses Diagnosis Chronic left shoulder pain Pain in joint, shoulder region Adhesive capsulitis of left shoulder Adhesive capsulitis of shoulder documented in this encounter Additional Health Concerns Assessment Noted Time PHQ-9 Depression Total Score: 5 03/18/19 24 2:22 PM EXECUTIVE SEARCH CONSULTANT documented as of this encounter Care Teams Epitaxial Reactor Technician Relationship Specialty Start Date End Date Marv Yuong NP PCP - General NURSE PRACTITIONER ADULT HEALTH 03/11/23 09/14/23 documented as of this encounter
--- OUTSIDE RECORDS SUMMARY | 2024-02-12 03:30 | XMS_ITS | Encounter Summary ---
Author Organization [facility] Address Pending sale to [facility] [place] [address] [place] [address] Care Team Providers Care Hosiery Mender Name Role Phone Holger Soriano Primary Care Provider [phone] Reason for Visit * Reason Onset Date Comments Error 10/23/2023 Encounter Details Date Type Department Care Team (Late st Contact Info) Description 10/23/2023 Telephone [facility] Medical Group Family & Internal Medicine [facility] [address] [place] [address] [place] [address] [place] [address] Error Social History Tobacco Use Types Packs/Day Years [...] as of this encounter Progress Notes * Violeta Haong - 10/23/2023 12:23 PM CDT Error documented in this encounter Plan of Treatment Upcoming Encounters Date Type Department Care Team (Late st [facility]) Description 02/12/2024 9:00 AM FIRE PREVENTION CAPTAIN Appointment [facility] [address] [place] [address] [place] [address] [place] [address] [place] [address] [place] [address] 02/12/2024 2:00 PM FIRE PREVENTION CAPTAIN Appointment [facility] [address] [place] [address] [place] [address] [place] [address] 02/16/2024 9:00 AM FIRE PREVENTION CAPTAIN Appointment [facility] [address] [place] [address] [place] [address] [place] [address] [place] [address] [place] [address] 02/19/2024 8:45 AM FIRE PREVENTION CAPTAIN Appointment [facility] [address] [place] [address] [place] [address] [place] [address] [place] [address] [place] [address] 02/19/2024 9:00 AM FIRE PREVENTION CAPTAIN Appointment [facility] [address] [place] [address] [place] [address] [place] [address] [place] [address] [place] [address] 02/23/2024 9:00 AM FIRE PREVENTION CAPTAIN Appointment [facility] [address] [place] [address] [place] [address] [place] [address] [place] [address] [place] [address] 02/24/2024 1:30 PM FIRE PREVENTION CAPTAIN Appointment [facility] [address] [place] [address] Ihsan Logan, [address] [place] [address] 02/26/2024 9:00 AM FIRE PREVENTION CAPTAIN Appointment [facility] [address] [place] [address] [place] [address] [place] [address] [place] [address] [place], [place] [id number] 02/26/2024 9:15 AM FIRE PREVENTION CAPTAIN Appointment [facility] [address] [place] [address] [place] [address] [place] [address] [place] [address] [place] [address] 03/01/2024 9:00 AM FIRE PREVENTION CAPTAIN Appointment [facility] [address] [place] [address] [place] [address] [place] [address] [place] [address] [place] [address] Lorene Branch, FLOOR INSTALLATION MECHANIC 03/02/2024 12:27 PM FIRE PREVENTION CAPTAIN Hospital Encounter [facility] Surgery [address] [place] [address] [place] [address] [place] [address] 03/02/2024 12:27 PM FIRE PREVENTION CAPTAIN - 03/02/2024 1:07 PM FIRE PREVENTION CAPTAIN Surgery [facility] Surgery [address] [place] [address] [place] [address] [place] [address] MANIPULATION SHOULDER 03/05/2024 9:00 AM FIRE PREVENTION CAPTAIN Appointment [facility] [address] [place] [address] [place] [address] [place] [address] Lorene Barnch, FLOOR INSTALLATION MECHANIC 03/08/2024 9:00 AM FIRE PREVENTION CAPTAIN Appointment [facility] [address] [place] [address] [place] [address] [place] [address] Lorene Branch, FLOOR INSTALLATION MECHANIC 03/11/2024 9:15 AM FIRE PREVENTION CAPTAIN Appointment [facility] [address] [place] [address] [place] [address] [place] [address] Lorene Branch, FLOOR INSTALLATION MECHANIC 03/15/2024 9:00 AM FIRE PREVENTION CAPTAIN Appointment [facility] [address] [place] [address] [place] [address] [place] [address] Lorene Branch, FLOOR INSTALLATION MECHANIC 03/18/2024 9:15 AM FIRE PREVENTION CAPTAIN Appointment [facility] [address] [place] [address] [place] [address] [place] [address] Lorene Branch, FLOOR INSTALLATION MECHANIC 03/22/2024 9:00 AM FIRE PREVENTION CAPTAIN Appointment [facility] [address] [place] [address] [place] [address] [place] [address] Lorene Branch, FLOOR INSTALLATION MECHANIC 03/25/2024 9:15 AM FIRE PREVENTION CAPTAIN Appointment [facility] [address] [place] [address] [place] [address] [place] [address] Lorene Branch, FLOOR INSTALLATION MECHANIC 04/21/2024 11:20 AM FIRE PREVENTION CAPTAIN Office Visit [facility] Medical Group Family & Internal Medicine [facility] [address] [place] [phone] [place] [address] [place] [address] Scheduled Procedures Name Priority Associated Diagnoses Date/Ti me MANIPULATION SHOULDER Adhesive capsulitis of left shoulder 03/02/2024 12:27 PM FIRE PREVENTION CAPTAIN INJECTION JOINT Adhesive capsulitis of left shoulder 03/02/2024 12:27 PM FIRE PREVENTION CAPTAIN documented as of this encounter Visit Diagnoses Not on filedocumented in this encounter Additional Health Concerns Assessment Noted Time PHQ-9 Depression Total Score: 24 024 3:24 PM CDT documented as of this encounter Care Teams Hosiery Mender Relationship Specialty [place] [address] [place] [address] PCP - General Physician Systems Engineer Medical 09/16/23 documented as of this encounter
--- OUTSIDE RECORDS SUMMARY | 2024-02-12 03:30 | XMS_ITS | Encounter Summary ---
Author Organization [facility] Address [facility] [place] [address] [place] [address] Care Team Providers Care Distribution Spec Name Role Phone Holger Soriano Primary Care Provider [phone] Encounter Details Date Type Department Care Team (Latest Contact Info) Description 11/07/2023 Travel Social History Tobacco Use Types Packs/Day [...] st Contact Info) Description 02/12/2024 9:00 AM PRODUCT COMMUNICATIONS MANAGER Appointment [facility] [address] [place] [address] [place] [address] [place] [address] [place] [address] [place] [id number] 02/12/2024 2:00 PM PRODUCT COMMUNICATIONS MANAGER Appointment [facility] [address] [place] [address] [place] [address] [place] [address] 02/16/2024 9:00 AM PRODUCT COMMUNICATIONS MANAGER Appointment [facility] [address] [place] [address] [place] [address] [place] [address] [place] [address] [place] [address] 02/19/2024 8:45 AM PRODUCT COMMUNICATIONS MANAGER Appointment [facility] [address] [place] [address] [place] [address] [place] [address] [place] [address] [place] [address] 02/19/2024 9:00 AM PRODUCT COMMUNICATIONS MANAGER Appointment [facility] [address] [place] [address] [place] [address] [place] [address] [place] [address] [place] [address] 02/23/2024 9:00 AM PRODUCT COMMUNICATIONS MANAGER Appointment [facility] [address] [place] [address] [place] [address] [place] [address] [place] [address] [place] [address] 02/24/2024 1:30 PM PRODUCT COMMUNICATIONS MANAGER Appointment [facility] [address] [place] [address] [place] [address] [place] [address] 02/26/2024 9:00 AM PRODUCT COMMUNICATIONS MANAGER Appointment [facility] [address] [place] [address] [place] [address] [place] [address] [place] [address] [place] [address] 02/26/2024 9:15 AM PRODUCT COMMUNICATIONS MANAGER Appointment [facility] [address] [place] [address] [place] [address] [place] [address] [place] [address] [place] [address] 03/01/2024 9:00 AM PRODUCT COMMUNICATIONS MANAGER Appointment [facility] [address] [place] [address] [place] [address] [place] [address] [place] [address] [place] [address] Lorene Branch, RECREATION FACILITY ATTENDANT 03/02/2024 12:27 PM PRODUCT COMMUNICATIONS MANAGER Hospital Encounter [facility] [id number] [place] [address] [place] [address] [place] [address] 03/02/2024 12:27 PM PRODUCT COMMUNICATIONS MANAGER - 03/02/2024 1:07 PM PRODUCT COMMUNICATIONS MANAGER Surgery [address] [address] [place] [address] [place] [address] MANIPULATION SHOULDER 03/05/2024 9:00 AM PRODUCT COMMUNICATIONS MANAGER Appointment [facility] [address] [place] [address] [place] [address] [place] [address] Lorene Branch, RECREATION FACILITY ATTENDANT 03/08/2024 9:00 AM PRODUCT COMMUNICATIONS MANAGER Appointment [facility] [address] [place] [address] [place] [address] [place] [address] Lorene Branch, RECREATION FACILITY ATTENDANT 03/11/2024 9:15 AM PRODUCT COMMUNICATIONS MANAGER Appointment [facility] [address] [place] [address] [place] [address] [place] [address] Lorene Branch, RECREATION FACILITY ATTENDANT 03/15/2024 9:00 AM PRODUCT COMMUNICATIONS MANAGER Appointment [facility] [address] [place] [address] [place] [address] [place] [address] Lorene Branch, RECREATION FACILITY ATTENDANT 03/18/2024 9:15 AM PRODUCT COMMUNICATIONS MANAGER Appointment [facility] [address] [place] [address] [place] [address] [place] [address] Lorene Branch, RECREATION FACILITY ATTENDANT 03/22/2024 9:00 AM PRODUCT COMMUNICATIONS MANAGER Appointment [facility] [address] [place] [address] [place] [address] [place] [address] Lorene Branch, RECREATION FACILITY ATTENDANT 03/25/2024 9:15 AM PRODUCT COMMUNICATIONS MANAGER Appointment [facility] [address] [place] [address] [place] [address] [place] [address] Lorene Branch, RECREATION FACILITY ATTENDANT 04/21/2024 11:20 AM PRODUCT COMMUNICATIONS MANAGER Office Visit [facility] Medical Group Family & Internal Medicine - [address] [address] [place] [address] [place] [address] Scheduled Procedures Name Priority Associated Diagnoses Date/Ti me MANIPULATION SHOULDER Adhesive capsulitis of left shoulder 03/02/2024 12:27 PM PRODUCT COMMUNICATIONS MANAGER INJECTION JOINT Adhesive capsulitis of left shoulder 03/02/2024 12:27 PM PRODUCT COMMUNICATIONS MANAGER documented as of this encounter Visit Diagnoses Not on filedocumented in this encounter Additional Health Concerns Assessment Noted Time PHQ-9 Depression Total Score: 024 3:24 PM CDT documented as of this encounter Care Teams Distribution Spec Relationship Specialty [place] [address] [place] [address] PCP - General Physician Rn Plastic Surgery Medical 09/16/23 documented as of this encounter
--- OUTSIDE RECORDS SUMMARY | 2024-02-12 03:30 | XMS_ITS | Encounter Summary ---
Author Organization [facility] Address [facility]. [place], [place] [address] [place] [address] Care Team Providers Care Ed Physicians Name Role Phone Holger Soriano Primary Care Provider [phone] Reason for Visit * Reason Comments Shoulder Pain Left SH pain * Physical Medicine (Urgent) - Authorized Specialty Diagnoses / Procedures Referred By Contteri t Referred To Contact PHYSICAL THERAPY Diagnoses Left shoulder pain Low back pain Procedures OFFICE/OUTPATIENT NEW LOW MDM 30-44 MINUTES OFFICE/OUTPT VISIT,NEW,LEVL IV OFFICE/OUTPT VISIT,NEW,LEVL V OFFICE/OUTPT VISIT,EST,LEVL III OFFICE/OUTPT VISIT,EST,LEVL IV OFFICE/OUTPT VISIT,EST,[place] [address] [place] [address] Phone: tel: fax: [facility] [address] [place] [address] Phone: tel: fax: Referral ID Status Reason Start Date Expiration Date Visits Requested Visits Authorized [id number] Authorized Physical Therapy 10/13/2023 11/11/2024 99 [phone] Encounter Details Date Type Department Care Team (Latest Contact Info) Description 11/12/2023 3:30 PM CDT - 11/12/2023 11:59 PM CDT Hospital Encounter [facility] [address] [place], [place] [phone] [place] [address] [place] [address] Era Field PTA Shoulder Pain (Left SH pain/) Discharge Disposition: Home or Self Care (Routine [...] mouth as needed. FOR MUSCLE SPASMS 07/01/2023 diazePAM (VALIUM) 5 MG tabletIndications :Acute bilateral [...] complication, with long-term current use of insulin ([facility]) Inject 1 mg into the [...] of this encounter Progress Notes * Era Field, ESCALATOR OPERATOR - 11/12/2023 3:30 PM CDT Physical Therapy Visit Note: Patient Name: Oumou Middleton Diagnosis: Left shoulder pain (primary encounter diagnosis) SUBJECTIVE Therapy Visit Start Time: 1531 Stop Time: 1620 Time Calculation (min): 49 min Treatment Day: 4 Total Approved Visits: 16 per POC Therapy Plan of Care: 2x/week for 8 weeks Current Therapy Orders: eval and tx Diagnosis: L shoulder pain Referring Provider: Holger Soriano Date of Injury: Fell Feb 2023 but pain started in Nov 2022 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 My back is killing me. I have a hard time putting weight on the L side. It started about 2 weeks ago, that it has got worse, but it has been hurting for over a month. I get a tingling and hot feeling from the base of my neck to in between my SH blades. Reported Falls since last visit: no Medications changes since last visit : Flexeril, meloxicam Pain Current Location of Pain: L shoulder, low back left side Current Pain Level: tight, 8/10 constant OBJECTIVE Treatment provided today: Therapeutic Exercise - 80397 Number of Minutes - 06561: 49 Exercise: Pulleys scaption, butterfly x 2 min each (longer holds) (difficult to isolate flex and scap motions) Exercise: Wall slides flexion (towel), with light assist from RUE x 10 Exercise: next - Table slides (longer holds) flexion, scaption x [address] Exercise: SB on table SH flexion x 15 (Pt liked this exercises, it felt good.) Exercise: Supine cane flex x 10 Exercise: next - pendulums fwd/retro and L/R x 10 ea direction Exercise: PROM all planes (with MHP) x 15 min (gentle, slow) (use largest MHP and then a sheet to hold MHP in place) Exercise: joint mobs - next Exercise: Chin tucks supine x 15 Exercise: cervical retraction + extension progression as appropriate Exercise: Seated ER with cane (neutral SH) x 10 (very limited ROM without compensation) Exercise: cervical distraction x 5 (next cervical PROM) Exercise: 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 She is taking meds for pain control. PT principal secretary called to get referral for LBP, as it has not been put through per Sheryl Mao's Assessment/POC. Increase in SH symptoms with certain exercises. She did have N/T in B hands during ther ex, when SH were above 90??. Initiated SO release, that was tight and caused lightheadedness that subsidedafter release. Pt has large breast that most likely play into her symptoms. Response to Treatment : It feels better, but still sore. Continue on Functional Deficit of: L shoulder pain with dressing, bathing, work, sleep PLAN Plan Next Visit Plan: Continue progressing PT per POC. Total Time Total Time in Minutes: 49 Timed Code Treatment Minutes : 49 documented in this encounter Plan of Treatment Upcoming Encounters Date Type Department Care Team (Late st Contact Info) Description 02/12/2024 9:00 AM ASSISTED LIVING EXECUTIVE DIRECTOR Appointment [facility] [address] [place] [address] [place] [address] [place] [address] [place] [address] [place] [address] 02/12/2024 2:00 PM ASSISTED LIVING EXECUTIVE DIRECTOR Appointment [facility] [address] [place] [address] [place] [address] [place] [address] 02/16/2024 9:00 AM ASSISTED LIVING EXECUTIVE DIRECTOR Appointment [facility] [address] [place] [address] [place] [address] [place] [address] [place] [address] [place] [address] 02/19/2024 8:45 AM ASSISTED LIVING EXECUTIVE DIRECTOR Appointment [facility] [address] [place] [address] [place] [address] [place] [address] [place] [address] [place] [address] 02/19/2024 9:00 AM ASSISTED LIVING EXECUTIVE DIRECTOR Appointment [facility] [address] [place] [address] [place] [address] [place] [address] [place] [address] [place] [address] 02/23/2024 9:00 AM ASSISTED LIVING EXECUTIVE DIRECTOR Appointment [facility] [address] [place] [address] [place] [address] [place] [address] [place] [address] [place] [address] 02/24/2024 1:30 PM ASSISTED LIVING EXECUTIVE DIRECTOR Appointment [facility] [address] [place] [address] Ihsan Logan, [address] [place] [address] 02/26/2024 9:00 AM ASSISTED LIVING EXECUTIVE DIRECTOR Appointment [facility] [address] [place] [address] [place] [address] [place] [address] [place] [address] [place] [address] 02/26/2024 9:15 AM ASSISTED LIVING EXECUTIVE DIRECTOR Appointment [facility] [address] [place] [address] [place] [address] [place] [address] [place] [address] [place] [address] 03/01/2024 9:00 AM ASSISTED LIVING EXECUTIVE DIRECTOR Appointment [facility] [address] [place] [address] [place] [address] [place] [address] [place] [address] [place] [address] Lorene Branch PTA 03/02/2024 12:27 PM ASSISTED LIVING EXECUTIVE DIRECTOR Hospital Encounter [facility] [address] [place] [address] Ihsan Logan, [address] [place] [address] 03/02/2024 12:27 PM ASSISTED LIVING EXECUTIVE DIRECTOR - 03/02/2024 1:07 PM ASSISTED LIVING EXECUTIVE DIRECTOR Surgery [facility] [address] [place] [address] [place] [address] [place] [address] MANIPULATION SHOULDER 03/05/2024 9:00 AM ASSISTED LIVING EXECUTIVE DIRECTOR Appointment [facility] [address] [place] [address] [place] [address] [place] [address] Lorene Branch, ESCALATOR OPERATOR 03/08/2024 9:00 AM ASSISTED LIVING EXECUTIVE DIRECTOR Appointment [facility] [address] [place] [address] [place] [address] [place] [address] Lorene Branch, ESCALATOR OPERATOR 03/11/2024 9:15 AM ASSISTED LIVING EXECUTIVE DIRECTOR Appointment [facility] [address] [place] [address] [place] [address] [place] [address] Lorene Branch, ESCALATOR OPERATOR 03/15/2024 9:00 AM ASSISTED LIVING EXECUTIVE DIRECTOR Appointment [facility] [address] [place] [address] [place] [address] [place] [address] Lorene Branch, ESCALATOR OPERATOR 03/18/2024 9:15 AM ASSISTED LIVING EXECUTIVE DIRECTOR Appointment [facility] [address] [place] [address] [place] [address] [place] [address] Lorene Branch, ESCALATOR OPERATOR 03/22/2024 9:00 AM ASSISTED LIVING EXECUTIVE DIRECTOR Appointment [facility] [address] [place] [address] [place] [address] [place] [address] Lorene Branch, ESCALATOR OPERATOR 03/25/2024 9:15 AM ASSISTED LIVING EXECUTIVE DIRECTOR Appointment [facility] [address] [place] [address] [place] [address] [place], [place] [id number] Lorene Branch, ESCALATOR OPERATOR 04/21/2024 11:20 AM ASSISTED LIVING EXECUTIVE DIRECTOR Office Visit [facility] Medical Group Family & Internal Medicine - [place] [address] [place] [phone] [place] [address] [place] [address] Scheduled Procedures Name Priority Associated Diagnoses Date/Ti me MANIPULATION SHOULDER Adhesive capsulitis of left shoulder 03/02/2024 12:27 PM ASSISTED LIVING EXECUTIVE DIRECTOR INJECTION JOINT Adhesive capsulitis of left shoulder 03/02/2024 12:27 PM ASSISTED LIVING EXECUTIVE DIRECTOR documented as of this encounter Visit Diagnoses Diagnosis Left shoulder pain- Primary Pain in joint, shoulder region Adhesive capsulitis of left shoulder Adhesive capsulitis of shoulder documented in this encounter Additional Health Concerns Assessment Noted Time PHQ-9 Depression Total Score: 24 024 3:24 PM CDT documented as of this encounter Care Teams Ed Physicians Relationship Specialty Start Date End Date Holger Soriano PA [address] [place] [address] PCP - General Physician [employer] Specialist Medical 09/16/23 documented as of this encounter
--- OUTSIDE RECORDS SUMMARY | 2024-02-12 03:30 | XMS_ITS | Encounter Summary ---
Author Organization [facility] Address [facility]. [place], [place] [address] [place] [id number] Care Team Providers Care Environmental Engineering Technician Name Role Phone Holger Soriano Primary Care Provider [phone] Reason for Visit * Reason Comments Shoulder Pain * Physical Medicine (Urgent) - Authorized Specialty Diagnoses / Procedures Referred By Contac t Referred To Contact PHYSICAL THERAPY Diagnoses Left shoulder pain Low back pain Procedures OFFICE/OUTPATIENT NEW LOW MDM 30-44 MINUTES OFFICE/OUTPT VISIT,NEW,LEVL IV OFFICE/OUTPT VISIT,NEW,LEVL V OFFICE/OUTPT VISIT,EST,LEVL III OFFICE/OUTPT VISIT,EST,LEVL IV OFFICE/OUTPT VISIT,[place] [address] [place] [address] Phone: tel: fax: [facility] [address] [place] [address] Phone: tel: fax: Referral ID Status Reason Start Date Expiration Date Visits Requested Visits Authorized [id number] Authorized Physical Therapy 10/13/2023 11/11/2024 99 99 Encounter Details Date Type Department Care Team (Latest Contact Info) Description 10/30/2023 7:22 AM CDT - 10/30/2023 11:59 PM CDT Hospital Encounter [facility] [address] [place], [place] [id number] [place] [address] [place], [place] [phone] [place] [address] [place], [place] [id number] Shoulder Pain Discharge Disposition: Home or Self [...] albuterol sulfate HFA 108 (90 Base) MCG/ACT inhalerIndications:A cute cough,Wheezing Inhale 2 puffs into the lungs every 4 (four) hours as needed for Wheezing or Shortness of breath. 18 g 04/01/2023 DULoxetine (CYMBALTA) 30 MG capsuleIndications:D epression, unspecified depression type Take 1 capsule (30 mg total) by mouth daily. 180 capsule 1 09/16/2023 QUEtiapine (SEROQUEL) 100 MG tabletIndications:Bi polar I disorder with depression (CMS/HCC HHS/HCC) Take 1 tablet (100 mg total) by mouth nightly at bedtime. at bedtime 90 tablet 09/16/2023 cyclobenzaprine (FLEXERIL) 10 MG tablet Take 1 tablet (10 mg total) by mouth as needed. FOR MUSCLE SPASMS 07/01/2023 diazePAM (VALIUM) 10 MG tabletIndications:Ra diculopathy of cervicothoracic region Take 1 tablet (10 mg total) by mouth every 6 (six) hours as needed for Anxiety. One tablet 45 minutes prior to MRI 1 tablet 07/07/2023 4 DULoxetine (CYMBALTA) 30 MG capsule Take 1 capsule (30 mg total) by mouth daily. 4 estradiol (ESTRACE) 2 MG tabletIndications:Me nopausal and female climacteric states Take 1 tablet (2 mg total) by mouth daily. 28 tablet 2 03/18/2023 4 fluticasone propionate (FLONASE) 50 MCG/ACT nasal spray 2 sprays by Each Nostril route daily. SHAKE LIQUID 03/28/2022 4 gabapentin (NEURONTIN) 300 MG capsuleIndications:C hronic left shoulder pain Take 1 capsule (300 mg total) by mouth every evening for 30 days. 30 capsule 10/17/2023 4 meloxicam (MOBIC) 15 MG tabletIndications:Ra diculopathy of cervicothoracic region Take 1 tablet (15 mg total) by mouth daily. 30 tablet 2 09/16/2023 4 progesterone (PROMETRIUM) 100 MG capsuleIndications:M enopausal and female climacteric states take 1 capsule by mouth every day 90 capsule 1 06/10/2023 4 semaglutide (OZEMPIC) 1 mg/dose injection (PEN)Indications:Typ e 2 diabetes mellitus without complication, with long-term current use of insulin ([facility]/HCC [facility]) Inject 1 mg into the skin once a week. 3 mL 3 07/04/2023 4 SUMAtriptan (IMITREX) 25 MG tabletIndications:Janet godoy with status migrainosus, not intractable, unspecified migraine type Take 1 tablet (25 mg total) by mouth daily as needed for Migraine. Max of 8 tablets (200 mg) in a 24 hour period. 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 Hadcovid so had to cancel her last appointment. Compliance to Home Program: still trying to do them but was sick since last visit Reported Falls since last visit: no Medications changes since last visit : no Pain Current Location of Pain: L shoulder Current Pain Level: tight OBJECTIVE Treatment provided today: Therapeutic Exercise - 02175 Number of Minutes - 06323: 46 Exercise: pulleys scaption, butterfly x 2 min each (longer holds) (difficult to isolate flex and scap motions) Exercise: wall slides flexion (towel), with light assist from RUE x 10 Exercise: table slides (longer holds) flexion, scaption x [address] Exercise: SB on table - next Exercise: supine cane flex x 10 Exercise: pendulums - next Exercise: PROM all planes (with MHP) x 15 min (gentle, slow) Exercise: joint mobs - next Exercise: chin tucks supine x 10 Exercise: cervical retraction + extension progression as appropriate Exercise: Seated ER with cane (neutral SH) x 10 Exercise: cervical distraction x 5 (next cervical PROM) Exercise: 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 End range in all planes produces pain that does reduce some with rest. Improved flexion ROM noted after several reps with assist using cane. Passive ROM performed very slow and gently today, pt hesitant to relax secondary to a bad experience at a past PT appointment. Response to Treatment : feels good right now Continue on Functional Deficit of: L shoulder pain with dressing, bathing, work, sleep PLAN Plan Next Visit Plan: Continue progressing PT per POC. Total Time Total Time in Minutes: 46 Timed Code Treatment Minutes : 46 documented in this encounter Plan of Treatment Upcoming Encounters Date Type Department Care Team (Late [facility]) Description 02/12/2024 9:00 AM RN ORTHOPAEDIC Appointment [facility] [address] [place] [address] [place] [address] [place] [address] [place] [address] [place], [place] [id number] 02/12/2024 2:00 PM RN ORTHOPAEDIC Appointment [facility] [address] [place] [address] [place] [address] [place] [address] 02/16/2024 9:00 AM RN ORTHOPAEDIC Appointment [facility] [address] [place] [address] [place] [address] [place] [address] [place] [address] [place] [address] 02/19/2024 8:45 AM RN ORTHOPAEDIC Appointment [facility] [address] [place] [address] [place] [address] [place] [address] [place] [address] [place] [address] 02/19/2024 9:00 AM RN ORTHOPAEDIC Appointment [facility] [address] [place] [address] [place] [address] [place] [address] [place] [address] [place] [address] 02/23/2024 9:00 AM RN ORTHOPAEDIC Appointment [facility] [address] [place] [address] [place] [address] [place] [address] [place] [address] [place] [address] 02/24/2024 1:30 PM RN ORTHOPAEDIC Appointment [facility] [address] [place] [address] Ihsan Logan, [address] [place] [address] 02/26/2024 9:00 AM RN ORTHOPAEDIC Appointment [facility] [address] [place] [address] [place] [address] [place] [address] [place] [address] [place] [address] 02/26/2024 9:15 AM RN ORTHOPAEDIC Appointment [facility] [address] [place] [address] [place] [address] [place] [address] [place] [address] [place] [address] 03/01/2024 9:00 AM RN ORTHOPAEDIC Appointment [facility] [address] [place] [address] [place] [address] [place] [address] [place] [address] [place] [address] Lorene Branch, SCENERY BUILDER 03/02/2024 12:27 PM RN ORTHOPAEDIC Hospital Encounter [address] [address] [place] [address] [place] [address] 03/02/2024 12:27 PM RN ORTHOPAEDIC - 03/02/2024 1:07 PM RN ORTHOPAEDIC Surgery [facility] [address] [place] [address] [place] [address] [place] [address] MANIPULATION SHOULDER 03/05/2024 9:00 AM RN ORTHOPAEDIC Appointment [facility] [address] [place] [address] [place] [address] [place] [address] Lorene Branch, SCENERY BUILDER 03/08/2024 9:00 AM RN ORTHOPAEDIC Appointment [facility] [address] [place] [address] [place] [address] [place] [address] Lorene Branch, SCENERY BUILDER 03/11/2024 9:15 AM RN ORTHOPAEDIC Appointment [facility] [address] [place] [address] [place] [address] [place] [address] Lorene Branch, SCENERY BUILDER 03/15/2024 9:00 AM RN ORTHOPAEDIC Appointment [facility] [address] [place] [address] [place] [address] [place] [address] Lorene Branch, SCENERY BUILDER 03/18/2024 9:15 AM RN ORTHOPAEDIC Appointment [facility] [address] [place] [address] [place] [address] [place] [address] Lorene Branch, SCENERY BUILDER 03/22/2024 9:00 AM RN ORTHOPAEDIC Appointment [facility] [address] [place] [address] [place] [address] [place] [address] Lorene Branch, CAROLA 03/25/2024 9:15 AM RN ORTHOPAEDIC Appointment [facility] [address] [place] [address] [place] [address] [place] [address] Lorene Branch, SCENERY BUILDER 04/21/2024 11:20 AM RN ORTHOPAEDIC Office Visit [facility] Family & Internal Medicine [facility] [address] [place] [phone] [place] [address] [place] [address] Scheduled Procedures Name Priority Associated Diagnoses Date/Ti me MANIPULATION SHOULDER Adhesive capsulitis of left shoulder 03/02/2024 12:27 PM RN ORTHOPAEDIC INJECTION JOINT Adhesive capsulitis of left shoulder 03/02/2024 12:27 PM RN ORTHOPAEDIC documented as of this encounter Visit Diagnoses Diagnosis Left shoulder pain- Primary Pain in joint, shoulder region Adhesive capsulitis of left shoulder Adhesive capsulitis of shoulder documented in this encounter Additional Health Concerns Assessment Noted Time PHQ-9 Depression Total Score: 24 024 3:24 PM CDT documented as of this encounter Care Teams Environmental Engineering Technician Relationship Specialty [place] [address] [place] [address] PCP - General Physician Client Experience Administrator Medical 09/16/23 documented as of this encounter
--- OUTSIDE RECORDS SUMMARY | 2024-02-12 03:30 | XMS_ITS | Encounter Summary ---
Author Organization [facility] Address [facility] [place] [address] [place] [address] Care Team Providers Care Industrial Sales Manager Name Role Phone Marv Young NP Primary Care Provide r Encounter Details Date Type Department Care Team (Latest Contact Info) Description 07/07/2023 Travel Social History Tobacco Use Types Packs/Day [...] st Contact Info) Description 02/12/2024 9:00 AM HANDHOLE MACHINE OPERATOR Appointment [facility] [address] [place] [address] [place] [address] [place] [address] [place] [address] [place] [address] 02/12/2024 2:00 PM HANDHOLE MACHINE OPERATOR Appointment [facility] [address] [place] [address] [place] [address] [place] [address] 02/16/2024 9:00 AM HANDHOLE MACHINE OPERATOR Appointment [facility] [address] [place] [address] [place] [address] [place] [address] [place] [address] [place] [address] 02/19/2024 8:45 AM HANDHOLE MACHINE OPERATOR Appointment [facility] [address] [place] [address] [place] [address] [place] [address] [place] [address] [place] [address] 02/19/2024 9:00 AM HANDHOLE MACHINE OPERATOR Appointment [facility] [address] [place] [address] [place] [address] [place] [address] [place] [address] [place] [address] 02/23/2024 9:00 AM HANDHOLE MACHINE OPERATOR Appointment [facility] [address] [place] [address] [place] [address] [place] [address] [place] [address] [place] [address] 02/24/2024 1:30 PM HANDHOLE MACHINE OPERATOR Appointment [facility] [address] [place] [address] [place] [address] [place] [address] 02/26/2024 9:00 AM HANDHOLE MACHINE OPERATOR Appointment [facility] [address] [place] [address] [place] [address] [place] [address] [place] [address] [place] [address] 02/26/2024 9:15 AM HANDHOLE MACHINE OPERATOR Appointment [facility] [address] [place] [address] [place] [address] [place] [address] [place] [address] [place] [address] 03/01/2024 9:00 AM HANDHOLE MACHINE OPERATOR Appointment [facility] [address] [place] [address] [place] [address] [place] [address] [place] [address] [place] [address] Lorene Branch, PUFF IRONER 03/02/2024 12:27 PM HANDHOLE MACHINE OPERATOR Hospital Encounter [facility] [address] [place] [address] [place] [address] [place] [address] 03/02/2024 12:27 PM HANDHOLE MACHINE OPERATOR - 03/02/2024 1:07 PM HANDHOLE MACHINE OPERATOR Surgery [address] [address] [place] [address] [place] [address] MANIPULATION SHOULDER 03/05/2024 9:00 AM HANDHOLE MACHINE OPERATOR Appointment [facility] [address] [place] [address] [place] [address] [place] [address] Lorene Branch, PUFF IRONER 03/08/2024 9:00 AM HANDHOLE MACHINE OPERATOR Appointment [facility] [address] [place] [address] [place] [address] [place] [address] Lorene Branch, PUFF IRONER 03/11/2024 9:15 AM HANDHOLE MACHINE OPERATOR Appointment [facility] [address] [place] [address] [place] [address] [place] [address] Lorene Branch, PUFF IRONER 03/15/2024 9:00 AM HANDHOLE MACHINE OPERATOR Appointment [facility] [address] [place] [address] [place] [address] [place] [address] Lorene Branch, PUFF IRONER 03/18/2024 9:15 AM HANDHOLE MACHINE OPERATOR Appointment [facility] [address] [place] [address] [place] [address] [place] [address] Lorene Branch, PUFF IRONER 03/22/2024 9:00 AM HANDHOLE MACHINE OPERATOR Appointment [facility] [address] [place] [address] [place] [address] [place] [address] Lorene Branch, PUFF IRONER 03/25/2024 9:15 AM HANDHOLE MACHINE OPERATOR Appointment [facility] [address] [place] [address] [place] [address] [place] [address] Lorene Branch, PUFF IRONER 04/21/2024 11:20 AM HANDHOLE MACHINE OPERATOR Office Visit [facility] Family [facility] [place] [address] [place] [address] [place] [address] [place] [address] Scheduled Procedures Name Priority Associated Diagnoses Date/Ti me MANIPULATION SHOULDER Adhesive capsulitis of left shoulder 03/02/2024 12:27 PM HANDHOLE MACHINE OPERATOR INJECTION JOINT Adhesive capsulitis of left shoulder 03/02/2024 12:27 PM HANDHOLE MACHINE OPERATOR documented as of this encounter Visit Diagnoses Not on filedocumented in this encounter Additional Health Concerns Assessment Noted Time PHQ-9 Depression Total Score: 5 03/18/19 2:22 PM HANDHOLE MACHINE OPERATOR documented as of this encounter Care Teams Industrial Sales Manager Relationship Specialty Start Date End Date Marv Young NP PCP - General NURSE PRACTITIONER [facility] 03/11/23 09/14/23 documented as of this encounter
--- OUTSIDE RECORDS SUMMARY | 2024-02-12 03:30 | XMS_ITS | Encounter Summary ---
Author Organization [facility] Address [facility]. [place], [place] [address] [place] [address] Care Team Providers Care Forensic Scientist Name Role Phone Hogler Soriano Primary Care Provider [phone] Reason for Visit * Reason Comments Shoulder Pain * Physical Medicine (Urgent) - Authorized Specialty Diagnoses / Procedures Referred By Contac t Referred To Contact PHYSICAL THERAPY Diagnoses Left shoulder pain Low back pain Procedures OFFICE/OUTPATIENT NEW LOW MDM 30-44 MINUTES OFFICE/OUTPT VISIT,NEW,LEVL IV OFFICE/OUTPT VISIT,NEW,LEVL V OFFICE/OUTPT VISIT,EST,LEVL III OFFICE/OUTPT VISIT,EST,LEVL IV OFFICE/OUTPT VISIT,EST[place] [address] [place] [address] Phone: tel: fax: [facility] [address] [place] [address] Phone: tel: fax: Referral ID Status Reason Start Date Expiration Date Visits Requested Visits Authorized [id number] Authorized Physical Therapy 10/13/2023 11/11/2024 99 99 Encounter Details Date Type Department Care Team (Latest Contact Info) Description 11/04/2023 8:50 AM CDT - 11/04/2023 11:59 PM CDT Hospital Encounter [facility] [address] [place] [address] [place] [address] [place] [address] Willis Isabela HenryCAROLA Shoulder Pain Discharge Disposition: Home or Self [...] minutes prior to MRI 1 tablet 07/07/2023 09/13/202 4 DULoxetine (CYMBALTA) 30 MG capsule Take [...] complication, with long-term current use of insulin ([facility]/HCC HHS/HCC) Inject 1 mg into the skin once a week. 3 mL 3 07/04/2023 4 SUMAtriptan (IMITREX) 25 MG tabletIndications:Mi graine with status migrainosus, not intractable, unspecified migraine type Take 1 tablet (25 mg total) by mouth daily as needed for Migraine. Max of 8 tablets (200 mg) in a 24 hour period. 30 tablet 2 09/16/2023 4 documented as of this encounter Progress Notes * Isabela Pedro, REEXAMINER - 11/04/2023 9:15 AM CDT Physical Therapy Visit Note: Patient Name: Oumou Middleton Diagnosis: Left shoulder pain (primary encounter diagnosis) SUBJECTIVE Therapy Visit Start Time: 917 Stop Time: 1005 Time Calculation (min): 47 min Treatment Day: 3 Total Approved Visits: 16 per POC Therapy Plan of Care: 2x/week for 8 weeks Current Therapy Orders: eval and tx Diagnosis: L shoulder pain Referring Provider: Holger Soriano Date of Injury: Fell Feb 2023 but pain started in Nov 2022 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[employer], [employer] Job Duties: Has help at work to lift things currently Subjective Note: Pt reports her L shoulder is very painful today and explains that it even hurts for the bra strap to push on that shoulder. Pt also reports increased low back pain and thinks it is due to the weather changing. Pt states that she feels like her L SH and bicep have just gotten tighter since theday after the last treatment and that each day the tightness incraeses. Response to prior treatment: Initially felt better and looser after last session but by the next day it was tight again. Reported Falls since last visit: no Medications changes since last visit : no Pain Current Location of Pain: L shoulder, low back left side Current Pain Level: L SH 9/10; LB 5/10 OBJECTIVE Treatment provided today: Therapeutic Exercise - 11920 Number of Minutes - 00356: 47 Exercise: pulleys scaption, butterfly x 2 min each (longer holds) (difficult to isolate flex and scap motions) Exercise: wall slides flexion (towel), with light assist from RUE x 10 Exercise: table slides (longer holds) flexion, scaption x [address] Exercise: SB on table SH flexion x 10 Exercise: supine cane flex x 10 Exercise: pendulums fwd/retro and L/R x 10 ea direction Exercise: PROM all planes (with MHP) x 15 min (gentle, slow) (use largest MHP and then a sheet to hold MHP in place) Exercise: joint mobs - next Exercise: chin tucks supine x 15 Exercise: cervical retraction + extension progression as appropriate Exercise: Seated ER with cane (neutral SH) x 10 (very limited ROM without compensation) Exercise: cervical distraction x 5 (next cervical PROM) Exercise: 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 InitiatedSH flex on SB which slightly increased ROM but c/o increased L SH pain. MHP slightly decreases painful symptoms during PROM. Pt remains guarded with all active and passive motion of L SH. Trigger point noted medial to inferior angle of L scapula during PROM which pt describes as tingling . Pt is tearful at times with ther ex due to increased pain, but is motivated to participate to return to PLOF. Response to Treatment : A little looser but still painful Continue on Functional Deficit of: L shoulder pain with dressing, bathing, work, sleep PLAN Plan Next Visit Plan: Continue progressing PT per POC. Total Time Total Time in Minutes: 47 Timed Code Treatment Minutes : 47 documented in this encounter Plan of Treatment Upcoming Encounters Date Type Department Care Team (Late st Contact Info) Description 02/12/2024 9:00 AM CLINICAL SERVICES SPECIALIST Appointment [facility] [address] [place] [address] [place] [address] [place] [address] [place] [address] [place] [address] 02/12/2024 2:00 PM CLINICAL SERVICES SPECIALIST Appointment [facility] [place] [address] [place] [address] [place] [address] [place] [address] 02/16/2024 9:00 AM CLINICAL SERVICES SPECIALIST Appointment [facility] [address] [place] [address] [place] [address] [place] [address] [place] [address] [place] [address] 02/19/2024 8:45 AM CLINICAL SERVICES SPECIALIST Appointment [facility] [address] [place] [address] [place] [address] [place] [address] [place] [address] [place] [address] 02/19/2024 9:00 AM CLINICAL SERVICES SPECIALIST Appointment [facility] [address] [place] [address] [place] [address] [place] [address] [place] [address] [place] [address] 02/23/2024 9:00 AM CLINICAL SERVICES SPECIALIST Appointment [facility] [address] [place] [address] [place] [address] [place] [address] [place] [address] [place] [address] 02/24/2024 1:30 PM CLINICAL SERVICES SPECIALIST Appointment [facility] [address] [place] [address] [place] [address] [place] [address] 02/26/2024 9:00 AM CLINICAL SERVICES SPECIALIST Appointment [facility] [address] [place] [address] [place] [address] [place] [address] [place] [address] [place] [address] 02/26/2024 9:15 AM CLINICAL SERVICES SPECIALIST Appointment [facility] [address] [place] [address] [place] [address] [place] [address] [place] [address] [place] [address] 03/01/2024 9:00 AM CLINICAL SERVICES SPECIALIST Appointment [facility] [address] [place] [address] [place] [address] [place] [address] [place] [address] [place] [address] Lorene Branch PTA 03/02/2024 12:27 PM CLINICAL SERVICES SPECIALIST Hospital Encounter [facility] [address] [place] [address] Ihsan Logan, [address] [place] [address] 03/02/2024 12:27 PM CLINICAL SERVICES SPECIALIST - 03/02/2024 1:07 PM CLINICAL SERVICES SPECIALIST Surgery [facility] [address] [place] [address] [place]DO [address] [place] [address] MANIPULATION SHOULDER 03/05/2024 9:00 AM CLINICAL SERVICES SPECIALIST Appointment [facility] [address] [place] [address] [place] [address] [place] [address] Lorene Branch, REEXAMINER 03/08/2024 9:00 AM CLINICAL SERVICES SPECIALIST Appointment [facility] [address] [place] [address] [place] [address] [place] [address] Lorene Branch, REEXAMINER 03/11/2024 9:15 AM CLINICAL SERVICES SPECIALIST Appointment [facility] [address] [place] [address] [place] [address] [place] [address] Lorene Branch, REEXAMINER 03/15/2024 9:00 AM CLINICAL SERVICES SPECIALIST Appointment [facility] [address] [place] [address] [place] [address] [place] [address] Lorene Branch, REEXAMINER 03/18/2024 9:15 AM CLINICAL SERVICES SPECIALIST Appointment [facility] [address] [place] [address] [place] [address] [place] [address] Lorene Branch, REEXAMINER 03/22/2024 9:00 AM CLINICAL SERVICES SPECIALIST Appointment [facility] [address] [place] [address] [place] [address] [place] [address] Lorene Branch, REEXAMINER 03/25/2024 9:15 AM CLINICAL SERVICES SPECIALIST Appointment [facility] [address] [place] [address] [place] [address] [place] [address] Lorene Branch, REEXAMINER 04/21/2024 11:20 AM CLINICAL SERVICES SPECIALIST Office Visit [facility] Family & Internal Medicine [address] [phone] [place] [address] [place], [place] [id number] Scheduled Procedures Name Priority Associated Diagnoses Date/Ti me MANIPULATION SHOULDER Adhesive capsulitis of left shoulder 03/02/2024 12:27 PM CLINICAL SERVICES SPECIALIST INJECTION JOINT Adhesive capsulitis of left shoulder 03/02/2024 12:27 PM CLINICAL SERVICES SPECIALIST documented as of this encounter Visit Diagnoses Diagnosis Left shoulder pain- Primary Pain in joint, shoulder region Adhesive capsulitis of left shoulder Adhesive capsulitis of shoulder documented in this encounter Additional Health Concerns Assessment Noted Time PHQ-9 Depression Total Score: 24 024 3:24 PM CDT documented as of this encounter Care Teams Forensic Scientist Relationship Specialty [place] [address] [place] [address] PCP - General Physician Bottling Room Worker Medical 09/16/23 documented as of this encounter
--- OUTSIDE RECORDS SUMMARY | 2024-02-12 03:30 | XMS_ITS | Encounter Summary ---
Author Organization [facility] Address [facility] [place] [address] [place] [address] Care Team Providers Care Scratcher Tender Name Role Phone Holger Soriano Primary Care Provider Encounter Details Date Type Department Care Team (Latest Contact Info) Description 11/12/2023 Travel Social History Tobacco Use Types Packs/Day [...] st Contact Info) Description 02/12/2024 9:00 AM PATROL MOTHER Appointment [facility] [address] [place] [address] [place] [address] [place] [address] [place] [address] [place] [id number] 02/12/2024 2:00 PM PATROL MOTHER Appointment [facility] MRI [address] [place] [address] [place] [address] [place] [address] 02/16/2024 9:00 AM PATROL MOTHER Appointment [facility] [address] [place] [address] [place] [address] [place] [address] [place] [address] [place] [address] 02/19/2024 8:45 AM PATROL MOTHER Appointment [facility] [address] [place] [address] [place] [address] [place] [address] [place] [address] [place] [address] 02/19/2024 9:00 AM PATROL MOTHER Appointment [facility] [address] [place] [address] [place] [address] [place] [address] [place] [address] [place] [address] 02/23/2024 9:00 AM PATROL MOTHER Appointment [facility] [address] [place] [address] [place] [address] [place] [address] [place] [address] [place] [address] 02/24/2024 1:30 PM PATROL MOTHER Appointment [facility] [address] [place] [address] [place] [address] [place] [address] 02/26/2024 9:00 AM PATROL MOTHER Appointment [facility] [address] [place] [address] [place] [address] [place] [address] [place] [address] [place] [address] 02/26/2024 9:15 AM PATROL MOTHER Appointment [facility] [address] [place] [address] [place] [address] [place] [address] [place] [address] [place] [address] 03/01/2024 9:00 AM PATROL MOTHER Appointment [facility] [address] [place] [address] [place] [address] [place] [address] [place] [address] [place] [address] Lorene Branch, FUR MIXER 03/02/2024 12:27 PM PATROL MOTHER Hospital Encounter [facility] [id number] [place] [address] [place] [address] [place] [address] 03/02/2024 12:27 PM PATROL MOTHER - 03/02/2024 1:07 PM PATROL MOTHER Surgery [address] [address] [place] [address] [place] [address] MANIPULATION SHOULDER 03/05/2024 9:00 AM PATROL MOTHER Appointment [facility] [address] [place] [address] [place] [address] [place] [address] Lorene Branch, FUR MIXER 03/08/2024 9:00 AM PATROL MOTHER Appointment [facility] [address] [place] [address] [place] [address] [place] [address] Lorene Branch, FUR MIXER 03/11/2024 9:15 AM PATROL MOTHER Appointment [facility] [address] [place] [address] [place] [address] [place] [address] Lorene Branch, FUR MIXER 03/15/2024 9:00 AM PATROL MOTHER Appointment [facility] [address] [place] [address] [place] [address] [place] [address] Lorene Branch, FUR MIXER 03/18/2024 9:15 AM PATROL MOTHER Appointment [facility] [address] [place] [address] [place] [address] [place] [address] Lorene Branch, FUR MIXER 03/22/2024 9:00 AM PATROL MOTHER Appointment [facility] [address] [place] [address] [place] [address] [place] [address] Lorene Branch, FUR MIXER 03/25/2024 9:15 AM PATROL MOTHER Appointment [facility] [address] [place] [address] [place] [address] [place] [address] Lorene Branch, FUR MIXER 04/21/2024 11:20 AM PATROL MOTHER Office Visit [facility] Family & Internal Medicine - [address] [phone] [place] [address] [place] [address] Scheduled Procedures Name Priority Associated Diagnoses Date/Ti me MANIPULATION SHOULDER Adhesive capsulitis of left shoulder 03/02/2024 12:27 PM PATROL MOTHER INJECTION JOINT Adhesive capsulitis of left shoulder 03/02/2024 12:27 PM PATROL MOTHER documented as of this encounter Visit Diagnoses Not on filedocumented in this encounter Additional Health Concerns Assessment Noted Time PHQ-9 Depression Total Score: 024 3:24 PM CDT documented as of this encounter Care Teams Scratcher Tender Relationship Specialty [place] [address] [place] [address] PCP - General Physician Financial Planning Consultant Medical 09/16/23 documented as of this encounter
--- OUTSIDE RECORDS SUMMARY | 2024-02-12 03:30 | XMS_ITS | Encounter Summary ---
Author Organization [facility] Address [facility] [place] [address] [place] [address] Care Team Providers Care Internet Webmaster Name Role Phone Holger Soriano Primary Care Provider [phone] Encounter Details Date Type Department Care Team (Latest Contact Info) Description 10/17/2023 Travel Social History Tobacco Use Types Packs/Day [...] st Contact Info) Description 02/12/2024 9:00 AM ANTENNA MACHINE OPERATOR Appointment [facility] [address] [place] [address] [place] [address] [place] [address] [place] [address] [place] [address] 02/12/2024 2:00 PM ANTENNA MACHINE OPERATOR Appointment [facility] MRI [address] [place] [address] [place] [address] [place] [address] 02/16/2024 9:00 AM ANTENNA MACHINE OPERATOR Appointment [facility] [address] [place] [address] [place] [address] [place] [address] [place] [address] [place] [address] 02/19/2024 8:45 AM ANTENNA MACHINE OPERATOR Appointment [facility] [address] [place] [address] [place] [address] [place] [address] [place] [address] [place] [address] 02/19/2024 9:00 AM ANTENNA MACHINE OPERATOR Appointment [facility] [address] [place] [address] [place] [address] [place] [address] [place] [address] [place] [address] 02/23/2024 9:00 AM ANTENNA MACHINE OPERATOR Appointment [facility] [address] [place] [address] [place] [address] [place] [address] [place] [address] [place] [address] 02/24/2024 1:30 PM ANTENNA MACHINE OPERATOR Appointment [facility] [address] [place] [address] [place] [address] [place] [address] 02/26/2024 9:00 AM ANTENNA MACHINE OPERATOR Appointment [facility] [address] [place] [address] [place] [address] [place] [address] [place] [address] [place] [address] 02/26/2024 9:15 AM ANTENNA MACHINE OPERATOR Appointment [facility] [address] [place] [address] [place] [address] [place] [address] [place] [address] [place] [address] 03/01/2024 9:00 AM ANTENNA MACHINE OPERATOR Appointment [facility] [address] [place] [address] [place] [address] [place] [address] [place] [address] [place] [address] Lorene Branch, ACCOUNTS PAYABLE SPECIALIST 03/02/2024 12:27 PM ANTENNA MACHINE OPERATOR Hospital Encounter [facility] [address] [place] [address] [place] [address] [place] [address] 03/02/2024 12:27 PM ANTENNA MACHINE OPERATOR - 03/02/2024 1:07 PM ANTENNA MACHINE OPERATOR Surgery [address] [address] [place] [address] [place] [address] MANIPULATION SHOULDER 03/05/2024 9:00 AM ANTENNA MACHINE OPERATOR Appointment [facility] [address] [place] [address] [place] [address] [place] [address] Lorene Branch, ACCOUNTS PAYABLE SPECIALIST 03/08/2024 9:00 AM ANTENNA MACHINE OPERATOR Appointment [facility] [address] [place] [address] [place] [address] [place] [address] Lorene Branch, ACCOUNTS PAYABLE SPECIALIST 03/11/2024 9:15 AM ANTENNA MACHINE OPERATOR Appointment [facility] [address] [place] [address] [place] [address] [place] [address] Lorene Branch, ACCOUNTS PAYABLE SPECIALIST 03/15/2024 9:00 AM ANTENNA MACHINE OPERATOR Appointment [facility] [address] [place] [address] [place] [address] [place] [address] Lorene Branch, ACCOUNTS PAYABLE SPECIALIST 03/18/2024 9:15 AM ANTENNA MACHINE OPERATOR Appointment [facility] [address] [place] [address] [place] [address] [place] [address] Lorene Branch, ACCOUNTS PAYABLE SPECIALIST 03/22/2024 9:00 AM ANTENNA MACHINE OPERATOR Appointment [facility] [address] [place] [address] [place] [address] [place] [address] Lorene Branch, ACCOUNTS PAYABLE SPECIALIST 03/25/2024 9:15 AM ANTENNA MACHINE OPERATOR Appointment [facility] [address] [place] [address] [place] [address] [place] [address] Lorene Branch, ACCOUNTS PAYABLE SPECIALIST 04/21/2024 11:20 AM ANTENNA MACHINE OPERATOR Office Visit [facility] Family & Internal Medicine - [address] [address] [place] [address] [place] [address] Scheduled Procedures Name Priority Associated Diagnoses Date/Ti me MANIPULATION SHOULDER Adhesive capsulitis of left shoulder 03/02/2024 12:27 PM ANTENNA MACHINE OPERATOR INJECTION JOINT Adhesive capsulitis of left shoulder 03/02/2024 12:27 PM ANTENNA MACHINE OPERATOR documented as of this encounter Visit Diagnoses Not on filedocumented in this encounter Additional Health Concerns Infection Onset Date Last Indicated Resolved Time COVID-19 Rule Out 10/17/2023 10/17/2023 10/17/2023 10:57 AM CDT Assessment Noted Time PHQ-9 Depression Total Score: 024 3:24 PM CDT documented as of this encounter Care Teams Internet Webmaster Relationship Specialty [place] [address] [place] [address] PCP - General Physician Career Technical Counselor Medical 09/16/23 documented as of this encounter
--- OUTSIDE RECORDS SUMMARY | 2024-02-12 03:30 | XMS_ITS | Encounter Summary ---
Author Organization [facility] Address [facility] [place], [place] [address] [place] [id number] Care Team Providers Care Service Desk Agent Name Role Phone Holger Soriano Primary Care Provider [phone] Reason for Visit * Reason Comments Back Pain Shoulder Pain * Physical Medicine (Urgent) - Authorized Specialty Diagnoses / Procedures Referred By Shmuel t Referred To Contact PHYSICAL THERAPY Diagnoses Left shoulder pain Low back pain Procedures OFFICE/OUTPATIENT NEW LOW MDM 30-44 MINUTES OFFICE/OUTPT VISIT,NEW,LEVL IV OFFICE/OUTPT VISIT,NEW,LEVL V OFFICE/OUTPT VISIT,EST,LEVL III OFFICE/OUTPT VISIT,EST,LEVL IV OFFICE/OUTPT VISIT,[place] [address] [place] [address] Phone: tel: fax: [facility] [address] [place] [address] Phone: tel: fax: Referral ID Status Reason Start Date Expiration Date Visits Requested Visits Authorized [id number] Authorized Physical Therapy 10/13/2023 11/11/2024 99 99 Encounter Details Date Type Department Care Team (Latest Contact Info) Description 11/21/2023 7:45 AM CDT - 11/21/2023 11:59 PM CDT Hospital Encounter [facility] [address] [place], [place] [id number] [place] [address] [place] [address] [place] [address] [place] [address] Back Pain; Shoulder Pain Discharge Disposition: Home [...] week. Indications: Diabetes 3 mL 3 11/19/2023 cyclobenzaprine (FLEXERIL) 10 MG tablet Take 1 [...] complication, with long-term current use of insulin ([facility]/HCC HHS/HCC) Take 1 tablet (4 mg [...] Progress Notes * Padmaja Haskins, PT - 11/21/2023 7:45 AM CDT Physical Therapy Visit Note: Patient Name: Oumou Middleton Diagnosis: Left shoulder pain (primary encounter diagnosis) SUBJECTIVE Therapy Visit Start Time: 748 Stop Time: 903 Time Calculation (min): 75 min Treatment Day: 6 for SH/ 1 for back Total Approved Visits: 16 per POC for both SH and back Therapy Plan of Care: 2x/week for 8 weeks Current Therapy Orders: eval and tx Diagnosis: L shoulder pain, low back pain Referring Provider: Holger Soriano Date of Injury: Shoulder- Fell Feb 2023 but pain started in Nov 2022. Low back - exacerbated early Oct. 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 May trial progressing to lumbar ext to determinepreference pending symptom control next visit. Modalities Non-Timed Electrical Stimulation Unattended - Minutes- 59477: 15 Electrical Stimulation Unattended - 86883/G0283: IFC to low back x 15 min (supine, bolster under knees) (performed cervical/SH stretches during) Hot Pack - 60629: MHP to L shoulder and low back Total Non- Timed Modality Minutes: 15 Education Was Education Provided: Yes Topic: PT POC, ther ex, modalities/IFC Recipient: Patient Method: Demonstration, Verbal, Return Demonstration Response: Verbalized understanding, Asked questions ASSESSMENT Assessment Note: Pt tolerating very minimal activity today compared to previous session. Pt did not take any pain medications before evaluation/session today. Pain relieved some with modalities today. See low back evaluation note. Response to Treatment : painful Goal Progression: ongoing Continue on Functional Deficit of: L shoulder pain with dressing, bathing, work, sleep PLAN Plan Next Visit Plan: Progress activities for SH/low back as tolerated Total Time Total Time in Minutes: 45 Timed Code Treatment Minutes : 30 * Padmaja Haskins, PT - 11/21/2023 7:45 AM CDT PT Initial Evaluation-Lumbar: Diagnosis: Left shoulder pain (primary encounter diagnosis) SUBJECTIVE Therapy Visit Start Time: 748 Stop Time: 903 Time Calculation (min): 75 min Visit Diagnosis: LBP Referring Provider: Holger Soriano Current Therapy Orders: eval and tx Date of Injury/Onset: worse starting 2 weeks ago Date of Surgery/Weeks post-op: anterior fusion L4-5 in 2018 Subjective History of Present Condition: Pt reports about 2 weeks ago she really noticed her back pain gettingworse. Did have surgery back in 2018. After she fell in the winter she was having some pain but it just progressively got worse. 2-3 weeks ago she says her back gave out and she could hardly walk. Now at the point where she is limping. Worst pain comes with sit to stand, especially toilet. All the p ain is on the left side, and goes down into the back of her L leg. It becomes very painful to weight bear when her back goes out. Nothing that she knows of will relieve the pain when she gets it, just has to wait for it pass unless she can lay perfectly flat for a long time (4-5 hours). Has triedmany modalities, medications, massage. Does get N/T in both legs but has had this since her surgery(outer thighs). Does feel now like her L leg will give out or she has to drag it. Having trouble getting pants on and socks/shoes. Other (Comments): Already coming to PT for L shoulder pain. Pain Current Pain Level: 8/10 Lowest Pain Level: 6/10 Highest Pain Level: 10/10 Activities That Increase Pain: sit to stand transfers, putting on shoes/socks Location of Pain: Back, L leg currently Review With Patient Medication Reviewed: on file Diagnostics: x-ray on file Patient stated goals for therapy: decrease pain OBJECTIVE Posture Lumbar: decreased lordosis Functional mobility Other (Comments): Pt very guarded with ambulation and bed mobility. Tearful with nearly all movement today. Lumbar Spine AROM Flexion: 25% Extension: 15% Side Bending R: 25% Side Bending L: 25% Rotation R: minimal Rotation L: minimal Flexibility Other (Comments): Difficult to assess due to limited mobility today LUMBAR STRENGTH Iliopsoas R: 4+/5 Iliopsoas L: 4/5 Quadriceps R: 5/5 Quadriceps L: 4-/5 Anterior Tibialis R: 4+/5 Anterior Tibialis L: 3+/5 Joint Play Assessment Lumbar intervertebral mobility: Unable to get into prone position today to assess Lumbar Special Tests Slump: positive ASSESSMENT Assessment Note: Oumou is 48 year old female who presents to [facility] PT with c/o low back and LLE pain. Currently being treated for L shoulder/cervical pain as well. Evaluation today was somewhat limited by pain that inhibited most movement. She demo LE weakness, more prominant in LLE. Slump test positive for disc pathology. Lumbar ROM is limited throughout. Pt would benefit from skilled PT to control pain and improve these deficits to optimize her functional mobility. Therapy Diagnosis: back pain Problem List: Decreased Flexibility, Decreased ROM, Decreased Strength, Limited Functional Activities, Gait Abnormality, Pain Prognosis: Good, Fair PT EVAL COMPLEXITY PT - Personal Factors/Comorbidities Impacting Care: 1-2 personal factors/comorbidities PT - Examination of Body Systems: Moderate (3 or more Elements) PT - Clinical Presentation of Patient: Evolving and changing characteristics PT - Decision Making: Moderate PT Eval Moderate Complexity - Minutes - 03085: 45 (includes chart review and documentation time) Education Was Education Provided: Yes Topic: ther ex, PT POC, differential diagnosis Recipient: Patient Method: Demonstration, Verbal, Return Demonstration Response: Verbalized understanding, Asked questions PLAN Plan Treatments/Interventions: Therapeutic Activities - 71623, Neuromuscular Re- education - 49664, Gait Training - 33391, Therapeutic Exercise - 64828, Electrical Stimulation Unattended - 73453, Ultrasound - 27483, Mechanical Traction - 50130, Manual Therapy - 12997, Hot/Cold Pack - , Dry Needling - , Dry Needling - Therapy Frequency: 2 times/week Duration of treatment time: 8 weeks Instruction Provided Comments: Did not have time to issue HEP for low back today. Will issue at later date. TREATMENT PROVIDED TODAY Total Times Evaluation + Treatment = Total Time For Today's Visit: 45 Goals: Functional deficits and goals: Decreased knowledge of how to manage symptoms independently: GOAL: Patient able to perform individualized home exercise program for independent symptom management within 8 weeks. Pain affects functional tasks: GOAL: Patient to rate back pain no greater than 3/10, as shown by visual analog scale, to assist with the task of sit to stand transfers within 8 weeks. Impaired sleep: GOAL: Patient to rate back pain no greater than 3/10, as shown by visual analog scale to sleep undisturbed through the night without pain medications within 8 weeks. Impaired lower extremity dressing and washing: GOAL: Patient to demonstrate trunk ROM WFL for improved ease with donning shoes and socks and washing lower extremities within 8 weeks. Poor body mechanics: GOAL: Patient will improve hip strength and core strength to 4+/5 to demonstrate proper body mechanics with squatting and lifting within 8 weeks. THE PROVIDER, I AM IN AGREEMENT WITH THE STATED THERAPY PLAN OF CARE. Provider Signature: Date: In signing this document, provider certifies that prescribed rehabilitation is a medical necessity. Date: 11/21/2023 Patient Name: Oumou Middleton Patient : 1975 Patient [facility] [address] [facility] [address] Dept: [phone] Dept Cosigned by TYLER Weaver at 11/21/2023 10:39 AM CDT documented in this encounter Plan of Treatment Upcoming Encounters Date Type Department Care Team (Late st Contact Info) Description 02/12/2024 9:00 AM PALLET REPAIRER Appointment [facility] [address] [place] [address] [place] [address] [place] [address] [place] [address] [place] [address] 02/12/2024 2:00 PM PALLET REPAIRER Appointment [facility] [place] [address] [place] [address] [place] [address] [place] [address] 02/16/2024 9:00 AM PALLET REPAIRER Appointment [facility] [address] [place] [address] [place] [address] [place] [address] [place] [address] [place] [address] 02/19/2024 8:45 AM PALLET REPAIRER Appointment [facility] [address] [place] [address] [place] [address] [place] [address] [place] [address] [place] [address] 02/19/2024 9:00 AM PALLET REPAIRER Appointment [facility] [address] [place] [address] [place] [address] [place] [address] [place] [address] [place] [address] 02/23/2024 9:00 AM PALLET REPAIRER Appointment [facility] [address] [place] [address] [place] [address] [place] [address] [place] [address] [place] [address] 02/24/2024 1:30 PM PALLET REPAIRER Appointment [address] [address] [place] [address] [place] [address] 02/26/2024 9:00 AM PALLET REPAIRER Appointment [facility] [address] [place] [address] [place] [address] [place] [address] [place] [address] [place] [address] 02/26/2024 9:15 AM PALLET REPAIRER Appointment [facility] [address] [place] [address] [place] [address] [place] [address] [place] [address] [place] [address] 03/01/2024 9:00 AM PALLET REPAIRER Appointment [facility] [address] [place] [address] [place] [address] [place] [address] [place] [address] [place] [address] Lorene Branch, [employer] 03/02/2024 12:27 PM PALLET REPAIRER Hospital Encounter [facility] [address] [place] [address] [place] [address] [place] [address] 03/02/2024 12:27 PM PALLET REPAIRER - 03/02/2024 1:07 PM PALLET REPAIRER Surgery [facility] [address] [place] [address] [place] [address] [place] [address] MANIPULATION SHOULDER 03/05/2024 9:00 AM PALLET REPAIRER Appointment [facility] [address] [place] [address] [place] [address] [place] [address] Lorene Branch, [employer] 03/08/2024 9:00 AM PALLET REPAIRER Appointment [facility] [address] [place] [address] [place] [address] [place] [address] Lorene Branch, [employer] 03/11/2024 9:15 AM PALLET REPAIRER Appointment [facility] [address] [place] [address] [place] [address] [place] [address] Lorene Branch, [employer] 03/15/2024 9:00 AM PALLET REPAIRER Appointment [facility] [address] [place] [address] [place] [address] [place] [address] Lorene Branch, [employer] 03/18/2024 9:15 AM PALLET REPAIRER Appointment [facility] [address] [place] [address] [place] [address] [place] [address] Lorene Branch, [employer] 03/22/2024 9:00 AM PALLET REPAIRER Appointment [facility] [address] [place] [address] [place] [address] [place] [address] Lorene Branch, [employer] 03/25/2024 9:15 AM PALLET REPAIRER Appointment [facility] [address] [place] [address] [place] [address] [place] [address] Lorene Branch PTA 04/21/2024 11:20 AM PALLET REPAIRER Office Visit [facility] [address] [place] [address] [place] [address] [place] [address] Scheduled Procedures Name Priority Associated Diagnoses Date/Ti me MANIPULATION SHOULDER Adhesive capsulitis of left shoulder 03/02/2024 12:27 PM PALLET REPAIRER INJECTION JOINT Adhesive capsulitis of left shoulder 03/02/2024 12:27 PM PALLET REPAIRER documented as of this encounter Visit Diagnoses Diagnosis Left shoulder pain- Primary Pain in joint, shoulder region Adhesive capsulitis of left shoulder Adhesive capsulitis of shoulder documented in this encounter Additional Health Concerns Assessment Noted Time PHQ-9 Depression Total Score: 024 3:24 PM CDT documented as of this encounter Care Teams Service Desk Agent Relationship Specialty [place] [address] [place] [address] PCP - General Physician [employer] Route Supervisor Medical 09/16/23 documented as of this encounter
--- OUTSIDE RECORDS SUMMARY | 2024-02-12 03:30 | XMS_ITS | Encounter Summary ---
Author Organization [facility] Address [facility] [place] [address] [place] [address] Care Team Providers Care Business Performance Manager Name Role Phone Marv Young NP Primary Care Provide r Reason for Referral * Imaging (Routine) - Closed Specialty Diagnoses / Procedures Referred By Contac t Referred To Contact RADIOLOGY Diagnoses Radiculopathy of cervicothoracic region Numbness and tingling in left arm Procedures MRI CERV SPINE WO CON Ihsan Logan DO Phone: tel: fax: Referral ID Status Reason Start Date Expiration Date Visits Re quested Visits Authorized [id number] Closed 07/07/2023 08/05/2024 1 1 Reason for Visit * Reason Comments Shoulder Pain Left Shoulder/Arm Pa in * Consultation (Urgent) - Authorized Specialty Diagnoses / Procedures Referred By Contact Referred To Contact ORTHOPAEDICS / ORTHOPAEDICS SURGERY Diagnoses Pain in left arm Procedures OFFICE/OUTPATIENT NEW LOW MDM 30-44 MINUTES OFFICE/OUTPT VISIT,NEW,LEVL IV OFFICE/OUTPT VISIT,NEW,LEVL V OFFICE/OUTPT VISIT,EST,LEVL III OFFICE/OUTPT VISIT,EST,LEVL IV OFFICE/OUTPT VISIT,EST,LEVL V Marv Young, GRACE Phone: tel: fax: [facility] Orthopedic [facility] [address] [facility] [address] [place] [address] Phone: tel: fax: Referral ID Status Reason Start Date Expiration Date Visits Requested Visits Authorized [id number] Authorized Specialty Services 07/05/2024 99 99 Encounter Details Date Type Department Care Team (Late st Contact Info) Description 07/07/2023 3:00 PM CDT Office Visit [facility] Orthopedic Surgery - [place] [address] [place], [place] [id number] [place] [address] [place] [address] Shoulder Pain (Left Shoulder/Arm Pain) Social History Tobacco Use Types Packs/Day Years [...] Sign Reading Time Taken Comments Blood Pressure 153/89 07/07/2023 2:54 PM CDT Pulse 77 07/07/2023 2:54 PM CDT Temperature 35.7 ??C (96.2 ??F) 07/07/2023 2:54 PM CD T Respiratory Rate - - Oxygen Saturation 96% 07/07/2023 2:54 PM CDT Inhaled Oxygen Concentration - - Weight 88.3 kg (194 lb 9.6 oz) 07/07/2023 2:54 P M CDT Height 157.5 cm (5' 2 ) 07/07/2023 2:54 PM CDT Body Mass Index 35.59 07/07/2023 2:54 PM CDT documented in this encounter Progress Notes * Lauren Stvil - 07/07/2023 6:54 PM CDTAssociated Problem(s): Complex regional pain syndrome type 1 of left upper extremity Diagnosis, more consistent with complex regional pain syndrome, although she did have a head injury, the MRI of her brain was unremarkable, no evidence of an intracranial issue. Recommendation at this time: We discussed the risks, benefits, as well as the alternatives. We willget an MRI of her neck with the numbness and tingling and the intractable pain down the left upper extremity. We'll get her started on meloxicam and then Valium for the MRI. We'll see you back after the MRI. If there's no significant relief, could consider steroid injection to the shoulder and or an arthrogram of the shoulder. All questions answered. * Ihsan Logan DO - 07/07/2023 3:00 PM CDT Images from the original note were not included. Office Visit Reason for Visit: Shoulder Pain (Left Shoulder/Arm Pain) History of Present Illness: Oumou Middleton is a 47-year-old female who presents for Left shoulder/arm pain. The patient states that she had a fall Jnauary 2023 on the concrete in the back porch. She notes that she was going to walk her dogs and ended up falling from the second step on her back. The patient had a concussion with a 2 inch laceration at the back of the head.. After the fall shehad arm pain which was throught to be a tear or strain but her shoulder also began to hurt with certain movements. Shenotes that one day her puppy was laying on her arm and when he got up her arm popped and she experienced extreme pain. The patient notes that her pain was so severe she had emesis and was taken to the emergency room. The patient states that she is claustrophobic and was sent to take several MRIs which were painful due to the position she had to lay. The patient stated that he pain scale is usually at a 10 and can get even worse. She was previously seen by Dr. Murillo. However, she could not be seen after her visit to the ER because Dr. Morgan does not accept her insunrance. Dr. Young prescribed the patient 25 mg of Tramadol and told the patient it was safe to return to work as there was no tear in imaging. 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 She reports numbness that radiates to her pinky and a burning pain. Dr. Wall prescribed the patient prednisone for swelling and hydrocodone. She notes that she takes half a pill if it is severeduring the day, a whole pill if she experiences pain at night. However, she notes that her pain canbe so severe to where she has to take two or three throughout the night. The patient has taken ibuprofen every six hours, Naproxen, and Cymbalta. She currently takes Xanax for anxiety. Review of Systems: Constitutional: Negative for chills [...] Outpatient Medications Marked as Taking for the 07/07/23 encounter (Office Visit) with Ihsan Logan, DO Medication Sig Dispense Refill albuterol sulfate HFA 108 (90 Base) MCG/ACT inhaler Inhale 2 puffs into the lungs every 4 (four) hours as needed for Wheezing or Shortness of breath. 18 g 0 ALPRAZolam (XANAX) 0.5 MG tablet TAKE 1 ORAL TABLET ONCE A DAY FOR ANXIETY ONSET ARIPiprazole (ABILIFY) 15 MG tablet Take 1 tablet (15 mg total) by mouth daily. 30 tablet 2 cyclobenzaprine (FLEXERIL) 5 MG tablet Take 1 tablet (5 mg total) by mouth as needed. diazePAM (VALIUM) 10 MG tablet Take 1 tablet (10 mg total) by mouth every 6 (six) hours as needed for Anxiety. One tablet 45 minutes prior to MRI 1 tablet 0 DULoxetine (CYMBALTA) 30 MG capsule TAKE 1 CAPSULE BY MOUTH 2 TIMES DAILY. 180 capsule 1 DULoxetine (CYMBALTA) 30 MG capsule Take 1 capsule (30 mg total) by mouth daily. estradiol (ESTRACE) 2 MG tablet Take 1 tablet (2 mg total) by mouth daily. 28 tablet 2 famotidine (PEPCID) 20 MG tablet Take 1 tab by mouth every morning. 90 tablet 1 fluticasone propionate (FLONASE) 50 MCG/ACT nasal spray 2 sprays by Each Nostril route daily. SHAKELIQUID [DISCONTINUED] HYDROcodone-acetaminophen (NORCO) 5-325 MG tablet Take 1-2 tablets by mouth every 6 (six) hours as needed for Pain. Indications: Chronic Pain 60 tablet 0 meloxicam (MOBIC) 15 MG tablet Take 1 tablet (15 mg total) by mouth daily. 30 tablet 2 predniSONE (DELTASONE) 20 MG tablet Take 3 tablets for 3 days, then 2 tabs for 3 days, then 1 tab for 3 days, then 1/2 tab for 4 days. 20 tablet 0 progesterone (PROMETRIUM) 100 MG capsule take 1 capsule by mouth every day 90 capsule 1 QUEtiapine (SEROQUEL) 100 MG tablet TAKE 1 TABLET BY MOUTH NIGHTLY AT BEDTIME. 90 tablet 0 semaglutide (OZEMPIC) 1 mg/dose injection (PEN) Inject 1 mg into the skin once a week. 3 mL 3 SUMAtriptan (IMITREX) 25 MG tablet Take 1 tablet (25 mg total) by mouth daily as needed for Migraine. Max of 8 tablets (200 mg) in a 24 hour period. 30 tablet 2 traMADol (ULTRAM) 50 MG tablet Take 1 tablet (50 mg total) by mouth every 6 (six) hours as needed for Pain. Indications: Acute Pain < 7 Day Supply 28 tablet 0 traZODone (DESYREL) 100 MG tablet TAKE 1 TABLET (100 MG TOTAL) BY MOUTH NIGHTLY AT BEDTIME FOR 30 DAYS. 90 tablet 0 Review of patient's allergies indicates: Allergen Reactions Parada Anaphylaxis Iodine Rash, Hives and Other (see comment) Reaction: Hives, Iodinated Contrast Media Unknown Itching Lidocaine Hives Ranitidine Unknown Risperidone Other (see comment) Reaction: OTHER REACTION Past Medical History: Diagnosis Date ADHD Asthma ([facility]) COPD (chronic obstructive pulmonary disease) ([facility]) History reviewed. No pertinent surgical history. Social History Tobacco Use Smoking status: Former Current packs/day: 0.00 Types: Cigarettes Quit date: 03/18/2023 Years since quittin.3 Passive exposure: Current Smokeless tobacco: Never Vaping Use Vaping status: Never Used Substance Use Topics Alcohol use: Yes Drug use: Never Family History Problem Relation Name Age of Onset Dementia Mother Ovarian Cancer Mother Osteoarthritis Mother Endometriosis Sister Dementia Maternal Grandmother Vital Signs: Filed Vitals: 07/07/23 1454 BP: (!) 153/89 Pulse: 77 Temp: 96.2 ??F (35.7 ??C) TempSrc: Temporal SpO2: 96% Weight: 88.3 kg (194 lb 9.6 oz) Height: 1.575 m (5' 2 ) Estimated BMI Today: Estimated body mass index is 35.59 kg/m?? as calculated from the following: Height as of this encounter: 1.575 m (5' 2 ). Weight as of this encounter: 88.3 kg (194 lb 9.6 oz). Physical Exam: Constitutional: she is oriented [...] Nursing note and vitals reviewed. Ortho Exam: Positive spurling. Head is normocephallic and atruamatic. She has a scar in the back that is well healed. The compartments are otherwise soft and not tender, although she has significant amount of guarding to her left shoulder. There's no open wound or skin breakdown. There's no clubbing cyanosis,edema, adenopathy. No swelling, no redness. She denies that there was any before to suggest complex regional pain syndrome. Marked decreased range of motion. May now have a component of adhesive capsulitis. Radial, ulnar and median nerves are intact with motor sensation, although she has more dysesthesia than the ulnar nerve distribution. Imaging: MRI SHOULDER LT WO CON 06/18/23 MRI HUMERUS LT WO CON 06/04/23 XR HUMERUS LT MIN 2V 05/29/23 XR SHOULDER LT 3V 05/29/23 X-rays and MRI of both her shoulder and her humerus show no evidence of fracture, dislocation, or evidence of a rotator cuff tear. Assessment/Plan: Problem List Items Addressed This Visit Nervous Numbness and tingling in left arm Relevant Orders MRI CERV SPINE WO CON Orthopedic/Musculoskeletal Radiculopathy of cervicothoracic region - Primary Relevant Medications meloxicam (MOBIC) 15 MG tablet diazePAM (VALIUM) 10 MG tablet Other Relevant Orders MRI CERV SPINE WO CON Complex regional pain syndrome type 1 of left upper extremity Diagnosis, more consistent with complex regional pain syndrome, although she did have a head injury, the MRI of her brain was unremarkable, no evidence of an intracranial issue. Recommendation at this time: We discussed the risks, benefits, as well as the alternatives. We willget an MRI of her neck with the numbness and tingling and the intractable pain down the left upper extremity. We'll get her started on meloxicam and then Valium for the MRI. We'll see you back after the MRI. If there's no significant relief, could consider steroid injection to the shoulder and or an arthrogram of the shoulder. All questions answered. I, Ihsan Logan DO personally performed the services described in this documentation. All medical record entries and diagnoses made by the scribe were at my direction and in my presence. I have reviewed the chart and agree that the record reflects my personal performance and is accurate and complete. By signing below, ILauren attest that this documentation has been prepared in the presence of and under the direction of Dr. Ihsan Logan DO. Portions of this note were dictated using [employer] speech recognition software. Occasional wrong wordor sound-alike substitutions may have occurred due to the inherent limitations of voice recognition software. Please read the chart carefully and recognize, using context, where the substitutions may have occurred. documented in this encounter Plan of Treatment Upcoming Encounters Date Type Department Care Team (Late st Contact Info) Description 02/12/2024 9:00 AM ENVIRONMENTAL CONSTRUCTION ENGINEER Appointment [facility] Outpatient Rehab [address] [place] [address] [place] [address] [place] [address] [place] [address] [place] [address] 02/12/2024 2:00 PM ENVIRONMENTAL CONSTRUCTION ENGINEER Appointment [facility] MRI [address] [place] [address] [place] [address] [place] [address] 02/16/2024 9:00 AM ENVIRONMENTAL CONSTRUCTION ENGINEER Appointment [facility] Outpatient Rehab [address] [place] [address] [place] [address] [place] [address] [place] [address] [place] [address] 02/19/2024 8:45 AM ENVIRONMENTAL CONSTRUCTION ENGINEER Appointment [facility] Outpatient Rehab [address] [place] [address] [place] [address] [place] [address] [place] [address] [place] [address] 02/19/2024 9:00 AM ENVIRONMENTAL CONSTRUCTION ENGINEER Appointment [facility] Outpatient Rehab [address] [place] [address] [place] [address] [place] [address] [place] [address] [place] [address] 02/23/2024 9:00 AM ENVIRONMENTAL CONSTRUCTION ENGINEER Appointment [facility] Outpatient Rehab [address] [place] [address] [place] [address] [place] [address] [place] [address] [place] [address] 02/24/2024 1:30 PM ENVIRONMENTAL CONSTRUCTION ENGINEER [facility] [address] [place] [address] [place] [address] [place] [address] 02/26/2024 9:00 AM ENVIRONMENTAL CONSTRUCTION ENGINEER Appointment [facility] Outpatient Rehab [address] [place] [address] [place] [address] [place] [address] [place] [address] [place] [address] 02/26/2024 9:15 AM ENVIRONMENTAL CONSTRUCTION ENGINEER Appointment [facility] Outpatient Rehab [address] [place] [address] [place] [address] [place] [address] [place] [address] [place] [address] 03/01/2024 9:00 AM ENVIRONMENTAL CONSTRUCTION ENGINEER Appointment [facility] Outpatient Rehab [address] [place] [address] [place] [address] [place] [address] [place] [address] [place], [place] [id number] Lorene Branch, HIDE HANDLER 03/02/2024 12:27 PM ENVIRONMENTAL CONSTRUCTION ENGINEER Hospital Encounter [facility] [address] [place] [address] [place] [address] [place] [address] 03/02/2024 12:27 PM ENVIRONMENTAL CONSTRUCTION ENGINEER - 03/02/2024 1:07 PM ENVIRONMENTAL CONSTRUCTION ENGINEER Surgery [facility] [address] [place] [address] [place] [address] [place] [address] MANIPULATION SHOULDER 03/05/2024 9:00 AM ENVIRONMENTAL CONSTRUCTION ENGINEER Appointment [facility] Outpatient Rehab [address] [place] [address] [place] [address] [place], [place] [id number] Lorene Branch, HIDE HANDLER 03/08/2024 9:00 AM ENVIRONMENTAL CONSTRUCTION ENGINEER Appointment [facility] Outpatient Rehab [address] [place] [address] [place] [address] [place] [address] Lorene Branch, HIDE HANDLER 03/11/2024 9:15 AM ENVIRONMENTAL CONSTRUCTION ENGINEER Appointment [facility] Outpatient Rehab [address] [place] [address] [place] [address] [place] [address] Lorene Branch, HIDE HANDLER 03/15/2024 9:00 AM ENVIRONMENTAL CONSTRUCTION ENGINEER Appointment [facility] Outpatient Rehab [address] [place] [address] [place] [address] [place] [address] Lorene Branch, HIDE HANDLER 03/18/2024 9:15 AM ENVIRONMENTAL CONSTRUCTION ENGINEER Appointment [facility] Outpatient Rehab [address] [place] [address] [place] [address] [place] [address] Lorene Branch, HIDE HANDLER 03/22/2024 9:00 AM ENVIRONMENTAL CONSTRUCTION ENGINEER Appointment [facility] Outpatient Rehab [address] [place] [address] [place] [address] [place] [address] Lorene Branch, HIDE HANDLER 03/25/2024 9:15 AM ENVIRONMENTAL CONSTRUCTION ENGINEER Appointment [facility] Outpatient Rehab [address] [place] [address] [place] [address] [place], [place] [id number] Lorene Branch, HIDE HANDLER 04/21/2024 11:20 AM ENVIRONMENTAL CONSTRUCTION ENGINEER Office Visit [facility] Family & Internal Medicine - [place] [address] [place] [address] [place] [address] [place] [address] Scheduled Procedures Name Priority Associated Diagnoses Date/Ti me MANIPULATION SHOULDER Adhesive capsulitis of left shoulder 03/02/2024 12:27 PM ENVIRONMENTAL CONSTRUCTION ENGINEER INJECTION JOINT Adhesive capsulitis of left shoulder 03/02/2024 12:27 PM ENVIRONMENTAL CONSTRUCTION ENGINEER documented as of this encounter Results * MRI CERV SPINE [...] 3:45 PM Narrative 12/10/2023 3:48 PM CDT [facility] [address] [place] [address] EXAMINATION:MRI of the cervical spine without contrast [...] Procedure Note Morgan Borjas MD - 12/10/2023 [facility] [address] [facility] [place] [address] EXAMINATION:MRI of the cervical spine without contrast [...] Morgan Borjas MD, 12/10/2023 3:45 PM us Ihsan Logan DO MRI Final Result documented in this encounter Visit Diagnoses Diagnosis Radiculopathy of cervicothoracic region- Primary Brachial neuritis or radiculitis nos Numbness and tingling in left arm Disturbance of skin sensation Complex regional pain syndrome type 1 of left upper extremity Radiculopathy of cervicothoracic region Brachial neuritis or radiculitis nos Numbness and tingling in left arm Disturbance of skin sensation Adhesive capsulitis of left shoulder Adhesive capsulitis of shoulder documented in this encounter Additional Health Concerns Assessment Noted Time PHQ-9 Depression Total Score: 5 03/18/19 24 2:22 PM ENVIRONMENTAL CONSTRUCTION ENGINEER documented as of this encounter Care Teams Business Performance Manager Relationship Specialty Start Date End Date Marv Young NP PCP - General NURSE PRACTITIONER ADULT HEALTH 03/11/23 09/14/23 documented as of this encounter
--- OUTSIDE RECORDS SUMMARY | 2024-02-12 03:30 | XMS_ITS | Encounter Summary ---
Author Organization [facility] Address [facility] [place] [address] [place] [address] Care Team Providers Care Laser Beam Machine Operator Name Role Phone Holger Soriano Primary Care Provider [phone] Encounter Details Date Type Department Care Team (Latest Contact Info) Description 11/17/2023 Travel Social History Tobacco Use Types Packs/Day [...] st Contact Info) Description 02/12/2024 9:00 AM MANAGEMENT SUPERVISOR Appointment [facility] Outpatient Rehab [address] [place] [address] [place] [address] [place] [address] [place] [address] [place] [id number] 02/12/2024 2:00 PM MANAGEMENT SUPERVISOR Appointment [facility] [address] [place] [address] [place] [address] [place] [address] 02/16/2024 9:00 AM MANAGEMENT SUPERVISOR Appointment [facility] Outpatient Rehab [address] [place] [address] [place] [address] [place] [address] [place] [address] [place] [address] 02/19/2024 8:45 AM MANAGEMENT SUPERVISOR Appointment [facility]patient Rehab [address] [place] [address] [place] [address] [place] [address] [place] [address] [place] [address] 02/19/2024 9:00 AM MANAGEMENT SUPERVISOR Appointment [facility]hab [address] [place] [address] [place] [address] [place] [address] [place] [address] [place] [address] 02/23/2024 9:00 AM MANAGEMENT SUPERVISOR Appointment [facility]hab [address] [place] [address] [place] [address] [place] [address] [place] [address] [place] [address] 02/24/2024 1:30 PM MANAGEMENT SUPERVISOR Appointment [facility] [address] [place] [address] [place] [address] [place] [address] 02/26/2024 9:00 AM MANAGEMENT SUPERVISOR Appointment [facility] Outpatient Rehab [address] [place] [address] [place] [address] [place] [address] [place] [address] [place] [address] 02/26/2024 9:15 AM MANAGEMENT SUPERVISOR Appointment [facility]hab [address] [place] [address] [place] [address] [place] [address] [place] [address] [place] [address] 03/01/2024 9:00 AM MANAGEMENT SUPERVISOR Appointment [facility]hab [address] [place] [address] [place] [address] [place] [address] [place] [address] [place] [address] Lorene Branch, HOME VISITOR HOME BASE HEAD START 03/02/2024 12:27 PM MANAGEMENT SUPERVISOR Hospital Encounter [facility] [id number] [place] [address] [place] [address] [place] [address] 03/02/2024 12:27 PM MANAGEMENT SUPERVISOR - 03/02/2024 1:07 PM MANAGEMENT SUPERVISOR Surgery [address] [address] [place] [address] [place] [address] MANIPULATION SHOULDER 03/05/2024 9:00 AM MANAGEMENT SUPERVISOR Appointment [facility] Outpatient Rehab [address] [place] [address] [place] [address] [place] [address] Lorene Branch, HOME VISITOR HOME BASE HEAD START 03/08/2024 9:00 AM MANAGEMENT SUPERVISOR Appointment [facility]hab [address] [place] [address] [place] [address] [place] [address] Lorene Branch, HOME VISITOR HOME BASE HEAD START 03/11/2024 9:15 AM MANAGEMENT SUPERVISOR Appointment [facility] [address] [place] [address] [place] [address] [place] [address] Lorene Branch, HOME VISITOR HOME BASE HEAD START 03/15/2024 9:00 AM MANAGEMENT SUPERVISOR Appointment [facility] [address] [place] [address] [place] [address] [place] [address] Lorene Branch, HOME VISITOR HOME BASE HEAD START 03/18/2024 9:15 AM MANAGEMENT SUPERVISOR Appointment [facility] [address] [place] [address] [place] [address] [place] [address] Lorene Branch, HOME VISITOR HOME BASE HEAD START 03/22/2024 9:00 AM MANAGEMENT SUPERVISOR Appointment [facility] [address] [place] [address] [place] [address] [place] [address] Lorene Branch, HOME VISITOR HOME BASE HEAD START 03/25/2024 9:15 AM MANAGEMENT SUPERVISOR Appointment [facility] [address] [place] [address] [place] [address] [place] [address] Lorene Branch, HOME VISITOR HOME BASE HEAD START 04/21/2024 11:20 AM MANAGEMENT SUPERVISOR Office Visit [facility] Medical Group Family & Internal Medicine - [address] [address] [place] [address] [place] [address] Scheduled Procedures Name Priority Associated Diagnoses Date/Ti me MANIPULATION SHOULDER Adhesive capsulitis of left shoulder 03/02/2024 12:27 PM MANAGEMENT SUPERVISOR INJECTION JOINT Adhesive capsulitis of left shoulder 03/02/2024 12:27 PM MANAGEMENT SUPERVISOR documented as of this encounter Visit Diagnoses Not on filedocumented in this encounter Additional Health Concerns Assessment Noted Time PHQ-9 Depression Total Score: 024 3:24 PM CDT documented as of this encounter Care Teams Laser Beam Machine Operator Relationship Specialty [place] [address] [place] [address] PCP - General Physician [employer] 09/16/23 documented as of this encounter
--- OUTSIDE RECORDS SUMMARY | 2024-02-12 03:30 | XMS_ITS | Encounter Summary ---
Author Organization [facility] Address [facility] [place] [address] [place] [address] Care Team Providers Care Grommet Machine Operator Name Role Phone Holger Soriano Primary Care Provider Encounter Details Date Type Department Care Team (Latest Contact Info) Description 11/21/2023 Travel Social History Tobacco Use Types Packs/Day [...] st Contact Info) Description 02/12/2024 9:00 AM AIRCRAFT MAINTENANCE INSTRUCTOR Appointment [facility] [address] [place] [address] [place] [address] [place] [address] [place] [address] [place], [place] [id number] 02/12/2024 2:00 PM AIRCRAFT MAINTENANCE INSTRUCTOR Appointment [facility] [place] [address] [place] [address] [place] [address] [place] [address] 02/16/2024 9:00 AM AIRCRAFT MAINTENANCE INSTRUCTOR Appointment [facility] [address] [place] [address] [place] [address] [place] [address] [place] [address] [place] [address] 02/19/2024 8:45 AM AIRCRAFT MAINTENANCE INSTRUCTOR Appointment [facility] [address] [place] [address] [place] [address] [place] [address] [place] [address] [place] [address] 02/19/2024 9:00 AM AIRCRAFT MAINTENANCE INSTRUCTOR Appointment [facility] [address] [place] [address] [place] [address] [place] [address] [place] [address] [place] [address] 02/23/2024 9:00 AM AIRCRAFT MAINTENANCE INSTRUCTOR Appointment [facility] [address] [place] [address] [place] [address] [place] [address] [place] [address] [place] [address] 02/24/2024 1:30 PM AIRCRAFT MAINTENANCE INSTRUCTOR Appointment [facility] [address] [place] [address] [place] [address] [place] [address] 02/26/2024 9:00 AM AIRCRAFT MAINTENANCE INSTRUCTOR Appointment [facility] [address] [place] [address] [place] [address] [place] [address] [place] [address] [place] [address] 02/26/2024 9:15 AM AIRCRAFT MAINTENANCE INSTRUCTOR Appointment [facility] [address] [place] [address] [place] [address] [place] [address] [place] [address] [place] [address] 03/01/2024 9:00 AM AIRCRAFT MAINTENANCE INSTRUCTOR Appointment [facility] [address] [place] [address] [place] [address] [place] [address] [place] [address] [place] [address] Lorene Branch, MARZIPAN MAKER 03/02/2024 12:27 PM AIRCRAFT MAINTENANCE INSTRUCTOR Hospital Encounter [facility] [id number] [place] [address] [place] [address] [place] [address] 03/02/2024 12:27 PM AIRCRAFT MAINTENANCE INSTRUCTOR - 03/02/2024 1:07 PM AIRCRAFT MAINTENANCE INSTRUCTOR Surgery [address] [address] [place] [address] [place] [address] MANIPULATION SHOULDER 03/05/2024 9:00 AM AIRCRAFT MAINTENANCE INSTRUCTOR Appointment [facility] [address] [place] [address] [place] [address] [place] [address] Lorene Branch, MARZIPAN MAKER 03/08/2024 9:00 AM AIRCRAFT MAINTENANCE INSTRUCTOR Appointment [facility] [address] [place] [address] [place] [address] [place] [address] Lorene Branch, MARZIPAN MAKER 03/11/2024 9:15 AM AIRCRAFT MAINTENANCE INSTRUCTOR Appointment [facility] [address] [place] [address] [place] [address] [place] [address] Lorene Branch, MARZIPAN MAKER 03/15/2024 9:00 AM AIRCRAFT MAINTENANCE INSTRUCTOR Appointment [facility] [address] [place] [address] [place] [address] [place] [address] Lorene Branch, MARZIPAN MAKER 03/18/2024 9:15 AM AIRCRAFT MAINTENANCE INSTRUCTOR Appointment [facility] [address] [place] [address] [place] [address] [place] [address] Lorene Branch, MARZIPAN MAKER 03/22/2024 9:00 AM AIRCRAFT MAINTENANCE INSTRUCTOR Appointment [facility] [address] [place] [address] [place] [address] [place] [address] Lorene Branch, MARZIPAN MAKER 03/25/2024 9:15 AM AIRCRAFT MAINTENANCE INSTRUCTOR Appointment [facility] [address] [place] [address] [place] [address] [place] [address] Lorene Branch, MARZIPAN MAKER 04/21/2024 11:20 AM AIRCRAFT MAINTENANCE INSTRUCTOR Office Visit [facility] Family & Internal Medicine - [address] [address] [place] [address] [place] [address] Scheduled Procedures Name Priority Associated Diagnoses Date/Ti me MANIPULATION SHOULDER Adhesive capsulitis of left shoulder 03/02/2024 12:27 PM AIRCRAFT MAINTENANCE INSTRUCTOR INJECTION JOINT Adhesive capsulitis of left shoulder 03/02/2024 12:27 PM AIRCRAFT MAINTENANCE INSTRUCTOR documented as of this encounter Visit Diagnoses Not on filedocumented in this encounter Additional Health Concerns Assessment Noted Time PHQ-9 Depression Total Score: 024 3:24 PM CDT documented as of this encounter Care Teams Grommet Machine Operator Relationship Specialty [place] [address] [place] [address] PCP - General Physician [facility] 09/16/23 documented as of this encounter
--- OUTSIDE RECORDS SUMMARY | 2024-02-12 03:30 | XMS_ITS | Encounter Summary ---
Author Organization [facility] Address [facility]6 [facility]. [place], [place] [address] [place] [address] Care Team Providers Care [employer] Social Studies Tutor Name Role Phone Brennon Flores MD Primary Care Provider [phone] Holger Soriano Primary Care Provider [phone] Encounter Details Date Type Department Care Team (Late Contact Info) Description 09/15/2023 [employer] Message Enc [facility] Family & Internal Medicine [facility] [address] [place] [address] Kayla, [facility] Provider Rescedule appt Social History Tobacco Use Types Packs/Day Years [...] st Contact Info) Description 02/12/2024 9:00 AM MANAGER DISH Appointment [facility] [address] [place] [address] [place] [address] [place] [address] [place] [address] [place] [address] 02/12/2024 2:00 PM MANAGER DISH Appointment [facility] [place] [address] [place] [address] [place] [address] [place] [address] 02/16/2024 9:00 AM MANAGER DISH Appointment [facility] [address] [place] [address] [place] [address] [place] [address] [place] [address] [place] [address] 02/19/2024 8:45 AM MANAGER DISH Appointment [facility] [address] [place] [address] [place] [address] [place] [address] [place] [address] [place] [address] 02/19/2024 9:00 AM MANAGER DISH Appointment [facility] [address] [place] [address] [place] [address] [place] [address] [place] [address] [place] [address] 02/23/2024 9:00 AM MANAGER DISH Appointment [facility] [address] [place] [address] [place] [address] [place] [address] [place] [address] [place] [address] 02/24/2024 1:30 PM MANAGER DISH Appointment [address] [address] [place] [address] [place] [address] 02/26/2024 9:00 AM MANAGER DISH Appointment [facility] [address] [place] [address] [place] [address] [place] [address] [place] [address] [place] [address] 02/26/2024 9:15 AM MANAGER DISH Appointment [facility] [address] [place] [address] [place] [address] [place] [address] [place] [address] [place] [address] 03/01/2024 9:00 AM MANAGER DISH Appointment [facility] [address] [place] [address] [place] [address] [place] [address] [place] [address] [place] [address] Lorene Branch, CRNA 03/02/2024 12:27 PM MANAGER DISH Hospital Encounter [facility] Surgery [address] [place] [address] [place] [address] [place] [address] 03/02/2024 12:27 PM MANAGER DISH - 03/02/2024 1:07 PM MANAGER DISH Surgery [facility] Surgery [address] [place] [address] [place] [address] [place] [address] MANIPULATION SHOULDER 03/05/2024 9:00 AM MANAGER DISH Appointment [facility] [address] [place] [address] [place] [address] [place] [address] Lorene Branch, CRNA 03/08/2024 9:00 AM MANAGER DISH Appointment [facility] [address] [place] [address] [place] [address] [place] [address] Lorene Branch, CRNA 03/11/2024 9:15 AM MANAGER DISH Appointment [facility] [address] [place] [address] [place] [address] [place] [address] Lorene Branch, CRNA 03/15/2024 9:00 AM MANAGER DISH Appointment [facility] [address] [place] [address] [place] [address] [place] [address] Lorene Branch, CRNA 03/18/2024 9:15 AM MANAGER DISH Appointment [facility] [address] [place] [address] [place] [address] [place] [address] Lorene Branch, CRNA 03/22/2024 9:00 AM MANAGER DISH Appointment [facility] [address] [place] [address] [place] [address] [place] [address] Lorene Branch, CRNA 03/25/2024 9:15 AM MANAGER DISH Appointment [facility] [address] [place] [address] [place] [address] [place] [address] Lorene Branch, CRNA 04/21/2024 11:20 AM MANAGER DISH Office Visit [facility] Family & Internal Medicine [facility] [address] [place] [address] [place] [address] [place] [address] Scheduled Procedures Name Priority Associated Diagnoses Date/Ti me MANIPULATION SHOULDER Adhesive capsulitis of left shoulder 03/02/2024 12:27 PM MANAGER DISH INJECTION JOINT Adhesive capsulitis of left shoulder 03/02/2024 12:27 PM MANAGER DISH documented as of this encounter Visit Diagnoses Not on filedocumented in this encounter Additional Health Concerns Infection Onset Date Last Indicated Resolved Time COVID-19 Rule Out 10/17/2023 10/17/2023 10/17/2023 10:57 AM CDT COVID-19 Rule Out 12/29/2023 12/29/2023 12/29/2023 12:59 PM MANAGER DISH Assessment Noted Time PHQ-9 Depression Total Score: 5 03/18/19 2:22 PM MANAGER DISH documented as of this encounter Care Teams [employer] Social Studies Tutor Relationship Specialty Start Date End Date Bren[place] Flores [place] [address] [place] [address] PCP - General INTERNAL MEDICINE 09/15/23 09/15/23 [place] [address] [place] [address] PCP - General Physician [facility] 09/16/23 documented as of this encounter
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
--- OUTSIDE RECORDS SUMMARY | 2024-02-12 03:30 | XMS_ITS | Encounter Summary ---
Author Organization [facility] Address [facility] [place] [address] [place] [address] Care Team Providers Care Engineering Production Worker Name Role Phone Holger Soriano Primary Care Provider [phone] Reason for Visit * Reason Onset Date Comments Medication 11/19/2023 Encounter Details Date Type Department Care Team (Late st Contact Info) Description 11/19/2023 Telephone [facility] Family & Internal Medicine [facility] [address] [place] [address] [place] [address] [place] [address] Medication Social History Tobacco Use Types Packs/Day Years [...] as of this encounter Progress Notes * Sanjuana Choi MA - 11/19/2023 11:02 AM CDT Pt informed. * TYLER Weaver - 11/19/2023 10:16 AM CDT Meds sent * Sanjuana Choi MA - 11/19/2023 10:12 AM CDT Patient called in and informed us the pharmacy filled her Ozempic, but used an old prescription from a provider that is no longer practicing with our office. They filled Ozempic 2mg and patient is very nauseous and fatigued. Wants to know if she can take anything for the nausea and if we can send in a correct prescription for Ozempic 1mg? Please advise? documented in this encounter Plan of Treatment Upcoming Encounters Date Type Department Care Team (Late st Contact Info) Description 02/12/2024 9:00 AM ASPHALT PLANT WORKER Appointment [facility] [address] [place] [address] [place] [address] [place] [address] [place] [address] [place] [address] 02/12/2024 2:00 PM ASPHALT PLANT WORKER Appointment [facility] MRI [address] [place] [address] [place] [address] [facility] [place] [address] 02/16/2024 9:00 AM ASPHALT PLANT WORKER Appointment [facility] [address] [place] [address] [place] [address] [place] [address] [place] [address] [place] [address] 02/19/2024 8:45 AM ASPHALT PLANT WORKER Appointment [facility] [address] [place] [address] [place] [address] [place] [address] [place] [address] [place] [address] 02/19/2024 9:00 AM ASPHALT PLANT WORKER Appointment [facility] [address] [place] [address] [place] [address] [place] [address] [place] [address] [place] [address] 02/23/2024 9:00 AM ASPHALT PLANT WORKER Appointment [facility] [address] [place] [address] [place] [address] [place] [address] [place] [address] [place] [address] 02/24/2024 1:30 PM ASPHALT PLANT WORKER Appointment [facility] [address] [place] [address] Ihsan Logan, [address] [place] [address] 02/26/2024 9:00 AM ASPHALT PLANT WORKER Appointment [facility] [address] [place] [address] [place] [address] [place] [address] [place] [address] [place] [address] 02/26/2024 9:15 AM ASPHALT PLANT WORKER Appointment [facility] [address] [place] [address] [place] [address] [place] [address] [place] [address] [place] [address] 03/01/2024 9:00 AM ASPHALT PLANT WORKER Appointment [facility] [address] [place] [address] [place] [address] [place] [address] [place] [address] [place] [address] Lorene Branch, PROGRAM CONTROL ANALYST 03/02/2024 12:27 PM ASPHALT PLANT WORKER Hospital Encounter [facility] [address] [place] [address] [place] [address] [place] [address] 03/02/2024 12:27 PM ASPHALT PLANT WORKER - 03/02/2024 1:07 PM ASPHALT PLANT WORKER Surgery [facility] [address] [place] [address] [place] [address] [place] [address] MANIPULATION SHOULDER 03/05/2024 9:00 AM ASPHALT PLANT WORKER Appointment [facility] [address] [place] [address] [place] [address] [place] [address] Lorene Branch, PROGRAM CONTROL ANALYST 03/08/2024 9:00 AM ASPHALT PLANT WORKER Appointment [facility] [address] [place] [address] [place] [address] [place] [address] Lorene Branch, PROGRAM CONTROL ANALYST 03/11/2024 9:15 AM ASPHALT PLANT WORKER Appointment [facility] [address] [place] [address] [place] [address] [place] [address] Lorene Branch, PROGRAM CONTROL ANALYST 03/15/2024 9:00 AM ASPHALT PLANT WORKER Appointment [facility] [address] [place] [address] [place] [address] [place] [address] Lorene Branch, PROGRAM CONTROL ANALYST 03/18/2024 9:15 AM ASPHALT PLANT WORKER Appointment [facility] [address] [place] [address] [place] [address] [place], [place] [id number] Lorene Branch, PROGRAM CONTROL ANALYST 03/22/2024 9:00 AM ASPHALT PLANT WORKER Appointment [facility] [address] [place] [address] [place] [address] [place] [address] Lorene Branch, PROGRAM CONTROL ANALYST 03/25/2024 9:15 AM ASPHALT PLANT WORKER Appointment [facility] [address] [place] [address] [place] [address] [place], [place] [address] Lorene Branch, PROGRAM CONTROL ANALYST 04/21/2024 11:20 AM ASPHALT PLANT WORKER Office Visit [facility] Family & Internal Medicine - [address] [address] [place] [address] [place] [address] Scheduled Procedures Name Priority Associated Diagnoses Date/Ti me MANIPULATION SHOULDER Adhesive capsulitis of left shoulder 03/02/2024 12:27 PM ASPHALT PLANT WORKER INJECTION JOINT Adhesive capsulitis of left shoulder 03/02/2024 12:27 PM ASPHALT PLANT WORKER documented as of this encounter Visit Diagnoses Diagnosis Type 2 diabetes mellitus without complication, with long-term current use of insulin ([facility]) Adhesive capsulitis of left shoulder Adhesive capsulitis of shoulder documented in this encounter Additional Health Concerns Assessment Noted Time PHQ-9 Depression Total Score: 24 024 3:24 PM CDT documented as of this encounter Care Teams Engineering Production Worker Relationship Specialty [place] [address] [place] [address] PCP - General Physician Assistant Cross Country Coach Medical 09/16/23 documented as of this encounter
--- OUTSIDE RECORDS SUMMARY | 2024-02-12 03:30 | XMS_ITS | Encounter Summary ---
Author Organization [facility] Address [facility] Formerly [facility] [place] [address] [place] [address] Care Team Providers Care Real Estate Sales Supervisor Name Role Phone Holger Soriano Primary Care Provider [phone] Reason for Visit * Reason Comments Cough Sx started Friday e vening Sore Throat Fever Body Aches Congestion Encounter Details Date Type Department Care Team (Late st Contact Info) Description 10/17/2023 10:40 AM CDT Office Visit [facility] Family & Internal Medicine [facility] [id number] [place] [phone] [place] Soriano [place] [id number] [place] [address] Cough (Sx started Friday evening ); Sore Throat; Fever; Body Aches; Congestion Social History Tobacco Use Types Packs/Day Years [...] Sign Reading Time Taken Comments Blood Pressure 135/85 10/17/2023 10:26 AM CDT Pulse 75 10/17/2023 10:26 AM CDT Temperature 36.9 ??C (98.5 ??F) 10/17/2023 10:26 AM C DT Respiratory Rate 16 10/17/2023 10:26 AM CDT Oxygen Saturation 98% 10/17/2023 10:26 AM CDT Inhaled Oxygen Concentration - - Weight 84.8 kg (187 lb) 10/17/2023 10:26 AM CDT Height 157.5 cm (5' 2 ) 10/17/2023 10:26 AM CDT Body Mass Index 34.2 10/17/2023 10:26 AM CDT documented in this encounter Progress Notes * TYLER Weaver - 10/17/2023 10:40 AM CDT Reason for Visit: Cough (Sx started Friday evening ), Sore Throat, Fever, Body Aches, and Congestion History of Present Illness: 48-year-old female complains of headache congestion sore throat persistent cough and chest tightness x 1 week. She was doing better for few days and then got worse. No fever no chills. Also complains of left shoulder pain has been increasing recently. She was sent to our orthopedic surgeon which recommended a steroid injection but at the time she did not want it. She has been seeing chiropractor for manipulation and has been having increased lateral shoulder pain shooting down the arm. Appears to be neuropathic in nature. She really needs to have a steroid injection to help with frozen shoulder. Recommend she follow-up with orthopedic surgeon for this. In the meantime we willtry gabapentin for the pain Cough Associated symptoms include a fever and a sore throat. Sore Throat Associated symptoms include congestion and coughing. Fever Associated symptoms include congestion, coughing and a sore throat. Congestion Associated symptoms include congestion, coughing, a fever and a sore throat. ROS: Review of Systems Constitutional: Positive for fever. HENT: Positive for congestion and sore throat. Respiratory: Positive for cough. All other systems reviewed and are negative. Medications: Current Outpatient Medications: albuterol sulfate HFA 108 (90 Base) MCG/ACT inhaler, Inhale 2 puffs into the lungs every 4 (four) hours as needed for Wheezing or Shortness of breath., Disp: 18 g, Rfl: 0 azithromycin (ZITHROMAX Z-ISAIAH) 250 MG tablet, Take 2 tablets by mouth on day one then 1 daily for four days., Disp: 6 tablet, Rfl: 0 diazePAM (VALIUM) 10 MG tablet, Take 1 tablet (10 mg total) by mouth every 6 (six) hours as needed for Anxiety. One tablet 45 minutes prior to MRI, Disp: 1 tablet, Rfl: 0 DULoxetine (CYMBALTA) 30 MG capsule, Take 1 capsule (30 mg total) by mouth daily., Disp: , Rfl: DULoxetine (CYMBALTA) 30 MG [...] Rfl: gabapentin (NEURONTIN) 300 MG capsule, Take 1 capsule (300 mg total) by mouth every evening for 30 days., Disp: 30 capsule, Rfl: 0 meloxicam (MOBIC) 15 MG tablet, Take 1 tablet (15 mg total) by mouth daily., Disp: 30 tablet, Rfl: 2 progesterone (PROMETRIUM) 100 MG capsule, take 1 capsule by mouth every day, Disp: 90 capsule, Rfl:1 QUEtiapine (SEROQUEL) 100 MG tablet, Take 1 tablet (100 mg total) by mouth nightly at bedtime. at bedtime, Disp: 90 tablet, Rfl: 0 semaglutide (OZEMPIC) 1 mg/dose injection (PEN), Inject 1 mg into the skin once a week., Disp: 3 mL, Rfl: 3 SUMAtriptan (IMITREX) 25 MG tablet, Take 1 tablet (25 mg total) by mouth daily as needed for Migraine. Max of 8 tablets (200 mg) in a 24 hour period., Disp: 30 tablet, Rfl: 2 cyclobenzaprine (FLEXERIL) 10 MG tablet, Take 1 tablet (10 mg total) by mouth as needed. FOR MUSCLESPASMS (Patient not taking: Reported on 09/16/2023), Disp: , Rfl: Allergies Allergen Reactions Parada Anaphylaxis Iodine Rash, Hives and Other (see comment) Reaction: Hives, Iodinated Contrast Media Unknown Itching Lidocaine Hives Ranitidine Unknown Risperidone Other (see comment) Reaction: OTHER REACTION Past Medical History: Diagnosis Date ADHD Asthma ([facility]) COPD (chronic obstructive pulmonary disease) ([facility]) History reviewed. No pertinent surgical history. Social History Socioeconomic History Marital status: Tobacco Use Smoking status: Former Current packs/day: 0.00 Types: Cigarettes Quit date: 03/18/2023 Years since quittin.5 Passive exposure: Current Smokeless tobacco: Never Vaping [...] is normal. No respiratory distress. Breath sounds: No wheezing or rales. Comments: Positive end expiratory wheezing and decreased inspiratory effort Musculoskeletal: Cervical back: Normal range of motion. Skin: General: Skin is warm and dry. Capillary Refill: Capillary refill takes less than 2 seconds. Neurological: Mental Status: She is alert. Psychiatric: Mood and Affect: Mood normal. Behavior: Behavior normal. Thought Content: Thought content normal. Judgment: Judgment normal. Filed Vitals: 10/17/23 1026 BP: 135/85 Pulse: 75 Resp: 16 Temp: 98.5 ??F (36.9 ??C) SpO2: 98% Weight: 84.8 kg (187 lb) Height: 1.575 m (5' 2 ) Results for orders placed or performed in visit on 10/17/23 CORONAVIRUS (COVID-19) INFLUENZA A & B ANTIGEN IA PANEL Specimen: NASAL Result Value Ref Range CORONAVIRUS ANTIGEN IA NEGATIVE NEGATIVE INFLUENZA A NEGATIVE NEGATIVE INFLUENZA B NEGATIVE NEGATIVE Internal Control: VALID VALID RAPID STREP A Specimen: THROAT Result Value Ref Range RAPID STREP TEST NEGATIVE NEGATIVE Internal Control: VALID VALID Diagnoses/Impression: 1. Suspected COVID-19 virus infection CORONAVIRUS (COVID-19) INFLUENZA A & B ANTIGEN IA PANEL 2. Sore throat RAPID STREP A CULTURE STREP A 3. Acute bronchiolitis due to unspecified organism azithromycin (ZITHROMAX Z- ISAIAH) 250 MG tablet methylPREDNISolone acetate (DEPO-Medrol) injection 80 mg 4. Chronic left shoulder pain gabapentin (NEURONTIN) 300 MG capsule Recommendations and Plan: Medication as directed follow-up as needed Orders Placed This Encounter azithromycin (ZITHROMAX Z-ISAIAH) 250 MG tablet methylPREDNISolone acetate (DEPO-Medrol) injection 80 mg gabapentin (NEURONTIN) 300 MG capsule CORONAVIRUS (COVID-19) INFLUENZA A & B ANTIGEN IA PANEL RAPID STREP A CULTURE STREP A Reviewed and updated this visit by provider: TYLER WEAVER Referring Provider: No ref. provider found PCP: TYLER WEAVER documented in this encounter Plan of Treatment Upcoming Encounters Date Type Department Care Team (Late st Contact Info) Description 02/12/2024 9:00 AM BIBLICAL STUDIES PROFESSOR Appointment [facility] Outpatient Rehab [address] [place] [address] [place] [address] [place] [address] [place] [address] [place] [address] 02/12/2024 2:00 PM BIBLICAL STUDIES PROFESSOR Appointment [facility] [place] [address] [place] [address] [place] [address] [place] [address] 02/16/2024 9:00 AM BIBLICAL STUDIES PROFESSOR Appointment [facility]hab [address] [place] [address] [place] [address] [place] [address] [place] [address] [place] [address] 02/19/2024 8:45 AM BIBLICAL STUDIES PROFESSOR Appointment [facility]hab [address] [place] [address] [place] [address] [place] [address] [place] [address] [place] [address] 02/19/2024 9:00 AM BIBLICAL STUDIES PROFESSOR Appointment [facility]hab [address] [place] [address] [place] [address] [place] [address] [place] [address] [place] [address] 02/23/2024 9:00 AM BIBLICAL STUDIES PROFESSOR Appointment [facility]patient [facility]hab [address] [place] [address] [place] [address] [place] [address] [place] [address] [place] [address] 02/24/2024 1:30 PM BIBLICAL STUDIES PROFESSOR Appointment [facility] [address] [place] [address] Ihsan Logan, [address] [place] [address] 02/26/2024 9:00 AM BIBLICAL STUDIES PROFESSOR Appointment [facility]hab [address] [place] [address] [place] [address] [place] [address] [place] [address] [place] [address] 02/26/2024 9:15 AM BIBLICAL STUDIES PROFESSOR Appointment [facility]hab [address] [place] [address] [place] [address] [place] [address] [place] [address] [place] [address] 03/01/2024 9:00 AM BIBLICAL STUDIES PROFESSOR Appointment [facility]hab [address] [place] [address] [place] [address] [place] [address] [place] [address] [place] [address] Lorene Branch, OTHER SPORTS COACH OR INSTRUCTOR 03/02/2024 12:27 PM BIBLICAL STUDIES PROFESSOR Hospital Encounter [facility] Surgery [address] [place] [address] [place] [address] [place] [address] 03/02/2024 12:27 PM BIBLICAL STUDIES PROFESSOR - 03/02/2024 1:07 PM BIBLICAL STUDIES PROFESSOR Surgery [facility] Surgery [address] [place] [address] [place] [address] [place] [address] MANIPULATION SHOULDER 03/05/2024 9:00 AM BIBLICAL STUDIES PROFESSOR Appointment [facility]hab [address] [place] [address] [place] [address] [place] [address] Lorene Branch, OTHER SPORTS COACH OR INSTRUCTOR 03/08/2024 9:00 AM BIBLICAL STUDIES PROFESSOR Appointment [facility]hab [address] [place] [address] [place] [address] [place] [address] Lorene Branch, OTHER SPORTS COACH OR INSTRUCTOR 03/11/2024 9:15 AM BIBLICAL STUDIES PROFESSOR Appointment [facility]hab [address] [place] [address] [place] [address] [place] [address] Lorene Branch, OTHER SPORTS COACH OR INSTRUCTOR 03/15/2024 9:00 AM BIBLICAL STUDIES PROFESSOR Appointment [facility] [address] [place] [address] [place] [address] [place] [address] Lorene Branch, OTHER SPORTS COACH OR INSTRUCTOR 03/18/2024 9:15 AM BIBLICAL STUDIES PROFESSOR Appointment [facility] [address] [place] [address] [place] [address] [place] [address] Lorene Branch, OTHER SPORTS COACH OR INSTRUCTOR 03/22/2024 9:00 AM BIBLICAL STUDIES PROFESSOR Appointment [facility] [address] [place] [address] [place] [address] [place] [address] Lorene Branch, OTHER SPORTS COACH OR INSTRUCTOR 03/25/2024 9:15 AM BIBLICAL STUDIES PROFESSOR Appointment [facility] [address] [place] [address] [place] [address] [place] [address] Lorene Branch, OTHER SPORTS COACH OR INSTRUCTOR 04/21/2024 11:20 AM BIBLICAL STUDIES PROFESSOR Office Visit [facility] Family & Internal Medicine [facility] [address] [place] [phone] [place] [address] [place] [address] Scheduled Procedures Name Priority Associated Diagnoses Date/Ti me MANIPULATION SHOULDER Adhesive capsulitis of left shoulder 03/02/2024 12:27 PM BIBLICAL STUDIES PROFESSOR INJECTION JOINT Adhesive capsulitis of left shoulder 03/02/2024 12:27 PM BIBLICAL STUDIES PROFESSOR documented as of this encounter Procedures Procedure Name Priority Date/Time Associated Diagnosis Comments CORONAVIRUS (COVID-19) INFLUENZA A & B ANTIGEN IA PANEL Routine 10/17/2023 Suspected COVID-19 virus infection RAPID STREP A Routine 10/17/2023 Sore throat documented in this encounter Results * CULTURE STREP A (10/17/2023 10:59 AM CDT) SPEC DESCRIPTION THROAT 10/17/2023 12:21 PM CDT [facility] SPECIAL REQUESTS NO SPECIAL REQUEST 10/17/2023 12:21 PM CDT [facility] CULTURE RESULT NO STREPTOCOCCUS PYOGENES (GROUP A) ISOLATED 10/20/2023 7:13 AM CDT [facility] THROAT SWAB / Unknown 10/17/2023 10:59 AM CDT 10/17/2023 12:31 PM CDT Holger SCOTT MICROBIOLOGY - GENERAL ORDERAB LES Final Result [facility] [address] [place] [address], [place] [phone] [facility] [address] [place] [address], [place] [phone] * RAPID STREP A (10/17/2023) RAPID STREP TEST NEGATIVE NEGATIVE [id number] ALEXEI COWAN Internal Control: VALID VALID [id number] ARVIND HILLMAN [place] STRUCTURE OF ANTERIOR PORTION OF NECK / Unknown 10/17/2023 Holger SCOTT MICROBIOLOGY - GENERAL ORDERAB LES Final Result [id number] ARVIND HILLMAN, [place] [address] [place] [address], * CORONAVIRUS (COVID-19) INFLUENZA A & B ANTIGEN IA PANEL (10/17/2023) CORONAVIRUS ANTIGEN IA NEGATIVE NEGATIVE -[id number], [place] INFLUENZA A NEGATIVE NEGATIVE -[address], [place] INFLUENZA B NEGATIVE NEGATIVE [id number] [facility], [place] Internal Control: VALID VALID -[id number], [place] NASAL STRUCTURE / Unknown 10/17/2023 us Holger SCOTT MICROBIOLOGY - GENERAL ORDERAB LES Final Result Performing Organization Address [facility] Co de Phone Number -[phone] ARVIND HILLMAN, [place] [address] [place] [address], documented in this encounter Visit Diagnoses Diagnosis Suspected COVID-19 virus infection- Primary Sore throat Acute pharyngitis Acute bronchiolitis due to unspecified organism Chronic left shoulder pain Pain in joint, shoulder region Adhesive capsulitis of left shoulder Adhesive capsulitis of shoulder documented in this encounter Administered Medications Inactive Administered Medications - up to 3 most recent administrations Medication Order MAR Action Action Date Dose Rate Site methylPREDNISolone acetate (DEPO-Medrol) injection 80 mg 80 mg, Intramuscular, Once, 1 dose, On Fri10/17/23 at 1130, Shake WellIndications:Acute bronchiolitis due to unspecified organism Given 10/17/2023 11:16 AM CDT 80 mg Left Dorsal Gluteal documented in this encounter Additional Health Concerns Infection Onset Date Last Indicated Resolved Time COVID-19 Rule Out 10/17/2023 10/17/2023 10/17/2023 10:57 AM CDT Assessment Noted Time PHQ-9 Depression Total Score: 24 024 3:24 PM CDT documented as of this encounter Care Teams Real Estate Sales Supervisor Relationship Specialty [place] [address] [place] [address] PCP - General Physician Various [employer]ional[employer] Teacher Medical 09/16/23 documented as of this encounter
--- OUTSIDE RECORDS SUMMARY | 2024-02-12 03:30 | XMS_ITS | Encounter Summary ---
Author Organization [facility] Address [facility] [place] [address] [place] [address] Care Team Providers Care Television Program Director Name Role Phone Holger Soriano Primary Care Provider [phone] Encounter Details Date Type Department Care Team (Latest Contact Info) Description 11/04/2023 Travel Social History Tobacco Use Types Packs/Day [...] st Contact Info) Description 02/12/2024 9:00 AM SCHOOL PLANT CONSULTANT Appointment [facility] Outpatient Rehab [address] [place] [address] [place] [address] [place] [address] [place] [address] [address] [place] [id number] 02/12/2024 2:00 PM SCHOOL PLANT CONSULTANT Appointment [facility] [place] [address] [place] [address] [place] [address] [place] [address] 02/16/2024 9:00 AM SCHOOL PLANT CONSULTANT Appointment [facility]patient Rehab [address] [place] [address] [place] [address] [place] [address] [place] [address] [place] [address] 02/19/2024 8:45 AM SCHOOL PLANT CONSULTANT Appointment [facility]patient Rehab [address] [place] [address] [place] [address] [place] [address] [place] [address] [place] [address] 02/19/2024 9:00 AM SCHOOL PLANT CONSULTANT Appointment [facility]patient Rehab [address] [place] [address] [place] [address] [place] [address] [place] [address] [place] [address] 02/23/2024 9:00 AM SCHOOL PLANT CONSULTANT Appointment [facility]hab [address] [place] [address] [place] [address] [place] [address] [place] [address] [place] [address] 02/24/2024 1:30 PM SCHOOL PLANT CONSULTANT Appointment [facility] [address] [place] [address] [place] [address] [place] [address] 02/26/2024 9:00 AM SCHOOL PLANT CONSULTANT Appointment [facility]hab [address] [place] [address] [place] [address] [place] [address] [place] [address] [place] [address] 02/26/2024 9:15 AM SCHOOL PLANT CONSULTANT Appointment [facility]hab [address] [place] [address] [place] [address] [place] [address] [place] [address] [place] [address] 03/01/2024 9:00 AM SCHOOL PLANT CONSULTANT Appointment [facility]hab [address] [place] [address] [place] [address] [place] [address] [place] [address] [place] [address] Lorene Branch, LIGHT RAIL TRANSIT OPERATOR 03/02/2024 12:27 PM SCHOOL PLANT CONSULTANT Hospital Encounter [facility] [address] [place] [address] [place] [address] [place] [address] 03/02/2024 12:27 PM SCHOOL PLANT CONSULTANT - 03/02/2024 1:07 PM SCHOOL PLANT CONSULTANT Surgery [address] [address] [place] [address] [place] [address] MANIPULATION SHOULDER 03/05/2024 9:00 AM SCHOOL PLANT CONSULTANT Appointment [facility] Outpatient Rehab [address] [place] [address] [place] [address] [place] [address] Lorene Branch, LIGHT RAIL TRANSIT OPERATOR 03/08/2024 9:00 AM SCHOOL PLANT CONSULTANT Appointment [facility] [address] [place] [address] [place] [address] [place] [address] Lorene Branch, LIGHT RAIL TRANSIT OPERATOR 03/11/2024 9:15 AM SCHOOL PLANT CONSULTANT Appointment [facility] [address] [place] [address] [place] [address] [place] [address] Lorene Branch, LIGHT RAIL TRANSIT OPERATOR 03/15/2024 9:00 AM SCHOOL PLANT CONSULTANT Appointment [facility] [address] [place] [address] [place] [address] [place] [address] Lorene Branch, LIGHT RAIL TRANSIT OPERATOR 03/18/2024 9:15 AM SCHOOL PLANT CONSULTANT Appointment [facility] [address] [place] [address] [place] [address] [place] [address] Lorene Branch, LIGHT RAIL TRANSIT OPERATOR 03/22/2024 9:00 AM SCHOOL PLANT CONSULTANT Appointment [facility] [address] [place] [address] [place] [address] [place] [address] Lorene Branch, LIGHT RAIL TRANSIT OPERATOR 03/25/2024 9:15 AM SCHOOL PLANT CONSULTANT Appointment [facility] [address] [place] [address] [place] [address] [place] [address] Lorene Branch, LIGHT RAIL TRANSIT OPERATOR 04/21/2024 11:20 AM SCHOOL PLANT CONSULTANT Office Visit [facility] Family & Internal Medicine - [address] [phone] [place] [address] [place] [address] Scheduled Procedures Name Priority Associated Diagnoses Date/Ti me MANIPULATION SHOULDER Adhesive capsulitis of left shoulder 03/02/2024 12:27 PM SCHOOL PLANT CONSULTANT INJECTION JOINT Adhesive capsulitis of left shoulder 03/02/2024 12:27 PM SCHOOL PLANT CONSULTANT documented as of this encounter Visit Diagnoses Not on filedocumented in this encounter Additional Health Concerns Assessment Noted Time PHQ-9 Depression Total Score: 024 3:24 PM CDT documented as of this encounter Care Teams Television Program Director Relationship Specialty [place] [address] [place] [address] PCP - General Physician Boat Tender Medical 09/16/23 documented as of this encounter
--- OUTSIDE RECORDS SUMMARY | 2024-02-12 03:30 | XMS_ITS | Encounter Summary ---
Author Organization [facility] Address [facility] [place] [address] [place] [address] Care Team Providers Care Neurosurgical Physician Assistant Name Role Phone Holger Soriano Primary Care Provider [phone] Encounter Details Date Type Department Care Team (Latest Contact Info) Description 10/30/2023 Travel Social History Tobacco Use Types Packs/Day [...] st Contact Info) Description 02/12/2024 9:00 AM RESEARCH AND DEVELOPMENT RESEARCHER Appointment [facility] Outpatient Rehab [address] [place] [address] [place] [address] [place] [address] [place] [address] [place] [id number] 02/12/2024 2:00 PM RESEARCH AND DEVELOPMENT RESEARCHER Appointment [facility] MRI [address] [place] [address] [place] [address] [place] [address] 02/16/2024 9:00 AM RESEARCH AND DEVELOPMENT RESEARCHER Appointment [facility] Outpatient Rehab [address] [place] [address] [place] [address] [place] [address] [place] [address] [place] [address] 02/19/2024 8:45 AM RESEARCH AND DEVELOPMENT RESEARCHER Appointment [facility] Outpatient Rehab [address] [place] [address] [place] [address] [place] [address] [place] [address] [place] [address] 02/19/2024 9:00 AM RESEARCH AND DEVELOPMENT RESEARCHER Appointment [facility] Outpatient Rehab [address] [place] [address] [place] [address] [place] [address] [place] [address] [place] [address] 02/23/2024 9:00 AM RESEARCH AND DEVELOPMENT RESEARCHER Appointment [facility]patient Rehab [address] [place] [address] [place] [address] [place] [address] [place] [address] [place] [address] 02/24/2024 1:30 PM RESEARCH AND DEVELOPMENT RESEARCHER Appointment [facility] [address] [place] [address] [place] [address] [place] [address] 02/26/2024 9:00 AM RESEARCH AND DEVELOPMENT RESEARCHER Appointment [facility] Outpatient Rehab [address] [place] [address] [place] [address] [place] [address] [place] [address] [place] [address] 02/26/2024 9:15 AM RESEARCH AND DEVELOPMENT RESEARCHER Appointment [facility]patient Rehab [address] [place] [address] [place] [address] [place] [address] [place] [address] [place] [address] 03/01/2024 9:00 AM RESEARCH AND DEVELOPMENT RESEARCHER Appointment [facility]patient [facility]hab [address] [place] [address] [place] [address] [place] [address] [place] [address] [place] [address] Lorene Branch, PRINTED CIRCUIT BOARD PCB DESIGNER 03/02/2024 12:27 PM RESEARCH AND DEVELOPMENT RESEARCHER Hospital Encounter [facility] [id number] [place] [address] [place] [address] [place] [address] 03/02/2024 12:27 PM RESEARCH AND DEVELOPMENT RESEARCHER - 03/02/2024 1:07 PM RESEARCH AND DEVELOPMENT RESEARCHER Surgery [address] [address] [place] [address] [place] [address] MANIPULATION SHOULDER 03/05/2024 9:00 AM RESEARCH AND DEVELOPMENT RESEARCHER Appointment [facility]hab [address] [place] [address] [place] [address] [place] [address] Lorene Branch, PRINTED CIRCUIT BOARD PCB DESIGNER 03/08/2024 9:00 AM RESEARCH AND DEVELOPMENT RESEARCHER Appointment [facility] [address] [place] [address] [place] [address] [place] [address] Lorene Branch, PRINTED CIRCUIT BOARD PCB DESIGNER 03/11/2024 9:15 AM RESEARCH AND DEVELOPMENT RESEARCHER Appointment [facility] [address] [place] [address] [place] [address] [place] [address] Lorene Branch, PRINTED CIRCUIT BOARD PCB DESIGNER 03/15/2024 9:00 AM RESEARCH AND DEVELOPMENT RESEARCHER Appointment [facility] [address] [place] [address] [place] [address] [place] [address] Lorene Branch, PRINTED CIRCUIT BOARD PCB DESIGNER 03/18/2024 9:15 AM RESEARCH AND DEVELOPMENT RESEARCHER Appointment [facility] [address] [place] [address] [place] [address] [place] [address] Lorene Branch, PRINTED CIRCUIT BOARD PCB DESIGNER 03/22/2024 9:00 AM RESEARCH AND DEVELOPMENT RESEARCHER Appointment [facility] [address] [place] [address] [place] [address] [place] [address] Lorene Branch, PRINTED CIRCUIT BOARD PCB DESIGNER 03/25/2024 9:15 AM RESEARCH AND DEVELOPMENT RESEARCHER Appointment [facility] [address] [place] [address] [place] [address] [place] [address] Lorene Branch, PRINTED CIRCUIT BOARD PCB DESIGNER 04/21/2024 11:20 AM RESEARCH AND DEVELOPMENT RESEARCHER Office Visit [facility] Family & Internal Medicine - [address] [phone] [place] [address] [place] [address] Scheduled Procedures Name Priority Associated Diagnoses Date/Ti me MANIPULATION SHOULDER Adhesive capsulitis of left shoulder 03/02/2024 12:27 PM RESEARCH AND DEVELOPMENT RESEARCHER INJECTION JOINT Adhesive capsulitis of left shoulder 03/02/2024 12:27 PM RESEARCH AND DEVELOPMENT RESEARCHER documented as of this encounter Visit Diagnoses Not on filedocumented in this encounter Additional Health Concerns Assessment Noted Time PHQ-9 Depression Total Score: 024 3:24 PM CDT documented as of this encounter Care Teams Neurosurgical Physician Assistant Relationship Specialty [place] [address] [place] [address] PCP - General Physician Power Shovel Mechanic Medical 09/16/23 documented as of this encounter
--- OUTSIDE RECORDS SUMMARY | 2024-02-12 03:30 | XMS_ITS | Encounter Summary ---
Author Organization [facility] Address [facility]. [place], [place] [address] [place] [address] Care Team Providers Care Access Developer Name Role Phone Holger Soriano Primary Care Provider [phone] Reason for Visit * Reason Comments Shoulder Pain * Physical Medicine (Urgent) - Authorized Specialty Diagnoses / Procedures Referred By Contac t Referred To Contact PHYSICAL THERAPY Diagnoses Left shoulder pain Low back pain Procedures OFFICE/OUTPATIENT NEW LOW MDM 30-44 MINUTES OFFICE/OUTPT VISIT,NEW,LEVL IV OFFICE/OUTPT VISIT,NEW,LEVL V OFFICE/OUTPT VISIT,EST,LEVL III OFFICE/OUTPT VISIT,EST,LEVL IV OFFICE/OUTPT VISIT,EST[place] [address] [place] [address] Phone: tel: fax: [facility] [address] [place] [address] Phone: tel: fax: Referral ID Status Reason Start Date Expiration Date Visits Requested Visits Authorized [id number] Authorized Physical Therapy 10/13/2023 11/11/2024 99 99 Encounter Details Date Type Department Care Team (Latest Contact Info) Description 11/17/2023 1:39 PM CDT - 11/17/2023 11:59 PM CDT Hospital Encounter [facility] [address] [place], [place] [id number] [place] [address] [place], [place] [id number] [place] [address] [place], [place] [id number] Shoulder Pain Discharge Disposition: Home or Self [...] long-term current use of insulin ([facility]/HCC [facility]/HCC) Inject 1 mg into the skin once [...] Progress Notes * Padmaja Haskins, PT - 11/17/2023 1:45 PM CDT Physical Therapy Visit Note: Patient Name: Oumou Middleton Diagnosis: Left shoulder pain (primary encounter diagnosis) SUBJECTIVE Therapy Visit Start Time: 1345 Stop Time: 1433 Time Calculation (min): 48 min Treatment Day: 5 Total Approved Visits: 16 per POC Therapy Plan of Care: 2x/week for 8 weeks Current Therapy Orders: eval and tx Diagnosis: L shoulder pain Referring Provider: Holger Soriano Date of Injury: Fell Feb 2023 but pain started in Nov 2022 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 Having a hard time walking. Had tomiss a few appiontments because of this and can tell her shoulder is suffering. Had a lot of pain in the shoulder yesterday. Sharp pain that even that even took her breath away while trying to dangleher arm to the side. Has also been noticing more numbness in her fingers with driving and sitting in her recliner (occurs in both hands). 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 Pt achieves minimal ER ROM in neutral today but self corrects her compensations. Tx somewhatlimited by back pain. Global ROM in L shoulder remains significantly limited. Response to Treatment : feels good Continue on Functional Deficit of: L shoulder pain with dressing, bathing, work, sleep PLAN Plan Next Visit Plan: Progress activities as tolerated. Low back evaluation to be performed also. Total Time Total Time in Minutes: 48 Timed Code Treatment Minutes : 48 documented in this encounter Plan of Treatment Upcoming Encounters Date Type Department Care Team (Late st Contact Info) Description 02/12/2024 9:00 AM RADIATION CONTROL TECHNICIAN Appointment [facility] Out[facility] [id number] [place] [address] [place] [address] [place] [address] [place] [address] [place] [address] 02/12/2024 2:00 PM RADIATION CONTROL TECHNICIAN Appointment [facility] [address] [place] [address] [place] [address] [place] [address] 02/16/2024 9:00 AM RADIATION CONTROL TECHNICIAN Appointment [facility] [address] [place] [address] [place] [address] [place] [address] [place] [address] [place] [address] 02/19/2024 8:45 AM RADIATION CONTROL TECHNICIAN Appointment [facility] [address] [place] [address] [place] [address] [place] [address] [place] [address] [place] [address] 02/19/2024 9:00 AM RADIATION CONTROL TECHNICIAN Appointment [facility] [address] [place] [address] [place] [address] [place] [address] [place] [address] [place] [address] 02/23/2024 9:00 AM RADIATION CONTROL TECHNICIAN Appointment [facility] [address] [place] [address] [place] [address] [place] [address] [place] [address] [place] [address] 02/24/2024 1:30 PM RADIATION CONTROL TECHNICIAN Appointment [facility] [place] [address] [place] [address] [place] [address] [place] [address] 02/26/2024 9:00 AM RADIATION CONTROL TECHNICIAN Appointment [facility] [address] [place] [address] [place] [address] [place] [address] [place] [address] [place] [address] 02/26/2024 9:15 AM RADIATION CONTROL TECHNICIAN Appointment [facility] [address] [place] [address] [place] [address] [place] [address] [place] [address] [place] [address] 03/01/2024 9:00 AM RADIATION CONTROL TECHNICIAN Appointment [facility] [address] [place] [address] [place] [address] [place] [address] [place] [address] [place] [address] Lorene Branch, BUSINESS PERFORMANCE MANAGER 03/02/2024 12:27 PM RADIATION CONTROL TECHNICIAN Hospital Encounter [facility] [address] [place] [address] [place] [address] [place] [address] 03/02/2024 12:27 PM RADIATION CONTROL TECHNICIAN - 03/02/2024 1:07 PM RADIATION CONTROL TECHNICIAN Surgery [facility] [address] [place] [address] [place] [address] [place] [address] MANIPULATION SHOULDER 03/05/2024 9:00 AM RADIATION CONTROL TECHNICIAN Appointment [facility] [address] [place] [address] [place] [address] [place] [address] Lorene Branch, BUSINESS PERFORMANCE MANAGER 03/08/2024 9:00 AM RADIATION CONTROL TECHNICIAN Appointment [facility] [address] [place] [address] [place] [address] [place] [address] Lorene Branch, BUSINESS PERFORMANCE MANAGER 03/11/2024 9:15 AM RADIATION CONTROL TECHNICIAN Appointment [facility] [address] [place] [address] [place] [address] [place] [address] Lorene Branch, BUSINESS PERFORMANCE MANAGER 03/15/2024 9:00 AM RADIATION CONTROL TECHNICIAN Appointment [facility] [address] [place] [address] [place] [address] [place] [address] Lorene Branch, BUSINESS PERFORMANCE MANAGER 03/18/2024 9:15 AM RADIATION CONTROL TECHNICIAN Appointment [facility] [address] [place] [address] [place] [address] [place] [address] Lorene Branch, BUSINESS PERFORMANCE MANAGER 03/22/2024 9:00 AM RADIATION CONTROL TECHNICIAN Appointment [facility] [address] [place] [address] [place] [address] [place], [place] [address] Lorene Branch, BUSINESS PERFORMANCE MANAGER 03/25/2024 9:15 AM RADIATION CONTROL TECHNICIAN Appointment [facility] [address] [place] [address] [place] [address] [place], [place] [id number] Lorene Branch, BUSINESS PERFORMANCE MANAGER 04/21/2024 11:20 AM RADIATION CONTROL TECHNICIAN Office Visit [facility] Family & Internal Medicine [facility] [address] [place] [phone] [place] [address] [place] [address] Scheduled Procedures Name Priority Associated Diagnoses Date/Ti me MANIPULATION SHOULDER Adhesive capsulitis of left shoulder 03/02/2024 12:27 PM RADIATION CONTROL TECHNICIAN INJECTION JOINT Adhesive capsulitis of left shoulder 03/02/2024 12:27 PM RADIATION CONTROL TECHNICIAN documented as of this encounter Visit Diagnoses Diagnosis Left shoulder pain- Primary Pain in joint, shoulder region Adhesive capsulitis of left shoulder Adhesive capsulitis of shoulder documented in this encounter Additional Health Concerns Assessment Noted Time PHQ-9 Depression Total Score: 24 024 3:24 PM CDT documented as of this encounter Care Teams Access Developer Relationship Specialty [place] [address] [place] [address] PCP - General Physician State Appellate Clerk Medical 09/16/23 documented as of this encounter
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
--- OUTSIDE RECORDS SUMMARY | 2024-02-12 03:30 | XMS_ITS | Encounter Summary ---
Author Organization [facility] Address [facility] [place] [address] [place] [address] Care Team Providers Care Strap Stitcher Name Role Phone Holger Soriano Primary Care Provider [phone] Reason for Visit * Reason Onset Date Comments Referral 11/12/2023 Encounter Details Date Type Department Care Team (Late st Contact Info) Description 11/12/2023 Telephone [facility] [address] [place], [place] [id number] Litzy Ferro, PT [address] [place], [place] [phone] Referral Social History Tobacco Use Types Packs/Day Years [...] as of this encounter Progress Notes * Clarice Crooks RN - 11/13/2023 4:11 PM CDT Low back pain added. * RAVI Joy - 11/13/2023 2:20 PM CDT PT was ordered by [facility] 10/13/23. Okay to add shoulder and and back pain * Clarice Crooks RN - 11/13/2023 9:37 AM CDT Did you order physical therapy? OK to add back to referral? * Joan Gregorio - 11/12/2023 3:50 PM CDT We are seeing patient for left shoulder pain. She saw Sri Herring on 11/07/23 for low back pain, can we please get a referral for low back. Thank you. documented in this encounter Plan of Treatment Upcoming Encounters Date Type Department Care Team (Late st Contact Info) Description 02/12/2024 9:00 AM SEAM PRESS OPERATOR Appointment [facility] [address] [place] [address] [place] [address] [place] [address] [place] [address] [place] [address] 02/12/2024 2:00 PM SEAM PRESS OPERATOR Appointment [facility] [place] [address] [place] [address] [place] [address] [place] [address] 02/16/2024 9:00 AM SEAM PRESS OPERATOR Appointment [facility] [address] [place] [address] [place] [address] [place] [address] [place] [address] [place] [address] 02/19/2024 8:45 AM SEAM PRESS OPERATOR Appointment [facility] [address] [place] [address] [place] [address] [place] [address] [place] [address] [place] [address] 02/19/2024 9:00 AM SEAM PRESS OPERATOR Appointment [facility] [address] [place] [address] [place] [address] [place] [address] [place] [address] [place] [address] 02/23/2024 9:00 AM SEAM PRESS OPERATOR Appointment [facility] [address] [place] [address] [place] [address] [place] [address] [place] [address] [place] [address] 02/24/2024 1:30 PM SEAM PRESS OPERATOR Appointment [facility] [address] [place] [address] Desmond IhsanDO [address] [place] [address] 02/26/2024 9:00 AM SEAM PRESS OPERATOR Appointment [facility] [address] [place] [address] [place] [address] [place] [address] [place] [address] [place] [address] 02/26/2024 9:15 AM SEAM PRESS OPERATOR Appointment [facility] [address] [place] [address] [place] [address] [place] [address] [place] [address] [place] [address] 03/01/2024 9:00 AM SEAM PRESS OPERATOR Appointment [facility] [address] [place] [address] [place] [address] [place] [address] [place] [address] [place] [address] Lorene Branch, NEGATIVE TURNER APPRENTICE 03/02/2024 12:27 PM SEAM PRESS OPERATOR Hospital Encounter [facility] [address] [place] [address] [place] [address] [place] [address] 03/02/2024 12:27 PM SEAM PRESS OPERATOR - 03/02/2024 1:07 PM SEAM PRESS OPERATOR Surgery [facility] [address] [place] [address] [place] [address] [place] [address] MANIPULATION SHOULDER 03/05/2024 9:00 AM SEAM PRESS OPERATOR Appointment [facility] [address] [place] [address] [place] [address] [place] [address] Lorene Branch, NEGATIVE TURNER APPRENTICE 03/08/2024 9:00 AM SEAM PRESS OPERATOR Appointment [facility] [address] [place] [address] [place] [address] [place] [address] Lorene Branch, NEGATIVE TURNER APPRENTICE 03/11/2024 9:15 AM SEAM PRESS OPERATOR Appointment [facility] [address] [place] [address] [place] [address] [place] [address] Lorene Branch, NEGATIVE TURNER APPRENTICE 03/15/2024 9:00 AM SEAM PRESS OPERATOR Appointment [facility] [address] [place] [address] [place] [address] [place] [address] Lorene Branch, NEGATIVE TURNER APPRENTICE 03/18/2024 9:15 AM SEAM PRESS OPERATOR Appointment [facility] [address] [place] [address] [place] [address] [place] [address] Lorene Branch, NEGATIVE TURNER APPRENTICE 03/22/2024 9:00 AM SEAM PRESS OPERATOR Appointment [facility] [address] [place] [address] [place] [address] [place] [address] Lorene Branch, NEGATIVE TURNER APPRENTICE 03/25/2024 9:15 AM SEAM PRESS OPERATOR Appointment [facility] [address] [place] [address] [place] [address] [place] [address] Lorene Branch, NEGATIVE TURNER APPRENTICE 04/21/2024 11:20 AM SEAM PRESS OPERATOR Office Visit [facility] Family & Internal Medicine [facility] [id number] [place] [address] [place] [address] [place] [address] Scheduled Procedures Name Priority Associated Diagnoses Date/Ti me MANIPULATION SHOULDER Adhesive capsulitis of left shoulder 03/02/2024 12:27 PM SEAM PRESS OPERATOR INJECTION JOINT Adhesive capsulitis of left shoulder 03/02/2024 12:27 PM SEAM PRESS OPERATOR documented as of this encounter Visit Diagnoses Not on filedocumented in this encounter Additional Health Concerns Assessment Noted Time PHQ-9 Depression Total Score: 24 024 3:24 PM CDT documented as of this encounter Care Teams Strap Stitcher Relationship Specialty [place] [address] [place] [address] PCP - General Physician Clinic Physician Medical 09/16/23 documented as of this encounter
--- OUTSIDE RECORDS SUMMARY | 2024-02-12 03:30 | XMS_ITS | Encounter Summary ---
Author Organization [facility] Address [facility] [place] [address] [place] [address] Care Team Providers Care Mortgage Funder Name Role Phone Holger Soriano Primary Care Provider [phone] Encounter Details Date Type Department Care Team (Latest Contact Info) Description 10/17/2023 12:21 PM CDT - 10/17/2023 11:59 PM CDT Hospital Encounter [facility] Laboratory [address] [place], [place] [phone] [place] [address] [place], [place] [id number] Discharge Disposition: Home or Self Care (Routine [...] at bedtime. at bedtime 90 tablet 09/16/2023 azithromycin (ZITHROMAX Z-ISAIAH) 250 MG tabletIndications:Ac daria bronchiolitis due to unspecified organism Take 2 tablets by mouth on day one then 1 daily for four days. 6 tablet 10/17/2023 4 cyclobenzaprine (FLEXERIL) 10 MG tablet Take 1 tablet (10 mg total) by mouth as needed. FOR MUSCLE SPASMS 07/01/2023 4 diazePAM (VALIUM) 10 MG tabletIndications:Ra diculopathy of [...] complication, with long-term current use of insulin ([facility]) Inject 1 mg into the [...] st Contact Info) Description 02/12/2024 9:00 AM BIOLOGY DEPARTMENT CHAIR Appointment [facility] Outpatient Rehab [address] [place] [address] [place] [address] [place] [address] [place] [address] [place] [address] 02/12/2024 2:00 PM BIOLOGY DEPARTMENT CHAIR Appointment [facility] [address] [place] [address] [place] [address] [place] [address] 02/16/2024 9:00 AM BIOLOGY DEPARTMENT CHAIR Appointment [facility] Outpatient Rehab [address] [place] [address] [place] [address] [place] [address] [place] [address] [place] [address] 02/19/2024 8:45 AM BIOLOGY DEPARTMENT CHAIR Appointment [facility] Outpatient Rehab [address] [place] [address] [place] [address] [place] [address] [place] [address] [place] [address] 02/19/2024 9:00 AM BIOLOGY DEPARTMENT CHAIR Appointment [facility] Outpatient Rehab [address] [place] [address] [place] [address] [place] [address] [place] [address] [place] [address] 02/23/2024 9:00 AM BIOLOGY DEPARTMENT CHAIR Appointment [facility] Outpatient Rehab [address] [place] [address] [place] [address] [place] [address] [place] [address] [place] [address] 02/24/2024 1:30 PM BIOLOGY DEPARTMENT CHAIR Appointment [facility] MRI [address] [place] [address] [place] [address] [place] [address] 02/26/2024 9:00 AM BIOLOGY DEPARTMENT CHAIR Appointment [facility] Outpatient Rehab [address] [place] [address] [place] [address] [place] [address] [place] [address] [place] [address] 02/26/2024 9:15 AM BIOLOGY DEPARTMENT CHAIR Appointment [facility] Outpatient Rehab [address] [place] [address] [place] [address] [place] [address] [place] [address] [place] [address] 03/01/2024 9:00 AM BIOLOGY DEPARTMENT CHAIR Appointment [facility] Outpatient Rehab [address] [place] [address] [place] [address] [place] [address] [place] [address] [place] [address] Lorene Branch PTA 03/02/2024 12:27 PM BIOLOGY DEPARTMENT CHAIR Hospital Encounter [facility] Surgery [address] [place] [address] [place] [address] [place] [address] 03/02/2024 12:27 PM BIOLOGY DEPARTMENT CHAIR - 03/02/2024 1:07 PM BIOLOGY DEPARTMENT CHAIR Surgery [facility] [address] [place] [address] [place] [address] [place] [address] MANIPULATION SHOULDER 03/05/2024 9:00 AM BIOLOGY DEPARTMENT CHAIR Appointment [facility] Outpatient Rehab [address] [place] [address] [place] [address] [place] [address] Lorene Branch, BASKET GRADER 03/08/2024 9:00 AM BIOLOGY DEPARTMENT CHAIR Appointment [facility] Outpatient Rehab [address] [place] [address] [place] [address] [place] [address] Lorene Branch, BASKET GRADER 03/11/2024 9:15 AM BIOLOGY DEPARTMENT CHAIR Appointment [facility] Outpatient Rehab [address] [place] [address] [place] [address] [place] [address] Lorene Branch, BASKET GRADER 03/15/2024 9:00 AM BIOLOGY DEPARTMENT CHAIR Appointment [facility] Outpatient Rehab [address] [place] [address] [place] [address] [place] [address] Lorene Branch, BASKET GRADER 03/18/2024 9:15 AM BIOLOGY DEPARTMENT CHAIR Appointment [facility] Outpatient Rehab [address] [place] [address] [place] [address] [place] [address] Lorene Branch, BASKET GRADER 03/22/2024 9:00 AM BIOLOGY DEPARTMENT CHAIR Appointment [facility] Outpatient Rehab [address] [place] [address] [place] [address] [place], [place] [id number] Lorene Branch, BASKET GRADER 03/25/2024 9:15 AM BIOLOGY DEPARTMENT CHAIR Appointment [facility] Outpatient Rehab [address] [place] [address] [place] [address] [place] [address] Lorene Branch, BASKET GRADER 04/21/2024 11:20 AM BIOLOGY DEPARTMENT CHAIR Office Visit [facility] Family & Internal Medicine - [address] [phone] [place] [address] [place] [address] Scheduled Procedures Name Priority Associated Diagnoses Date/Ti me MANIPULATION SHOULDER Adhesive capsulitis of left shoulder 03/02/2024 12:27 PM BIOLOGY DEPARTMENT CHAIR INJECTION JOINT Adhesive capsulitis of left shoulder 03/02/2024 12:27 PM BIOLOGY DEPARTMENT CHAIR documented as of this encounter Procedures Procedure Name Priority Date/Time Associated Diagnosis Comments CULTURE STREP A Routine 10/17/2023 10:59 AM CDT Sore throat documented in this encounter Results * CULTURE STREP A (10/17/2023 10:59 AM CDT) SPEC DESCRIPTION THROAT 10/17/2023 12:21 PM CDT [facility] SPECIAL REQUESTS NO SPECIAL REQUEST 10/17/2023 12:21 PM CDT [facility] CULTURE RESULT NO STREPTOCOCCUS PYOGENES (GROUP A) ISOLATED 10/20/2023 7:13 AM CDT [facility] THROAT SWAB / Unknown 10/17/2023 10:59 AM CDT 10/17/2023 12:31 PM CDT us Holger SCOTT MICROBIOLOGY - GENERAL ORDERAB LES Final Result [facility] [address] [place] [address], [facility] [address] [place] [address], documented in this encounter Visit Diagnoses Diagnosis Sore throat Acute pharyngitis Adhesive capsulitis of left shoulder Adhesive capsulitis of shoulder documented in this encounter Additional Health Concerns Assessment Noted Time PHQ-9 Depression Total Score: 24 024 3:24 PM CDT documented as of this encounter Care Teams Mortgage Funder Relationship Specialty [place] [address] [place] [address] PCP - General Physician Manager Ethics Medical 09/16/23 documented as of this encounter
--- OUTSIDE RECORDS SUMMARY | 2024-02-12 03:30 | XMS_ITS | Encounter Summary ---
Author Organization [facility] Address [id number] [place] [address] [place] [address] Care Team Providers Care Machined Parts Metal Sprayer Name Role Phone Holger Soriano Primary Care Provider Reason for Visit * Reason Onset Date Comments Question 10/20/2023 Encounter Details Date Type Department Care Team (Late st Contact Info) Description 10/20/2023 Telephone [facility] Medical [facility] Family & Internal Medicine [facility] [address] [place] [address] [place] [address] [place] [address] Question Social History Tobacco Use Types Packs/Day [...] of this encounter Progress Notes * Isabela Dias RN - 10/20/2023 11:16 AM CDT Please advise. Thanks! * Rand Galvez - 10/20/2023 10:30 AM CDT Oumou calling to give an update from her Friday appointment: Still coughing a lot, low grade fever and weakness. CB # [phone] documented in this encounter Plan of Treatment Upcoming Encounters Date Type Department Care Team (Late st Contact Info) Description 02/12/2024 9:00 AM SKIN SPECIALIST Appointment [facility] [address] [place] [address] [place] [address] [place] [address] [place] [address] [place] [address] 02/12/2024 2:00 PM SKIN SPECIALIST Appointment [facility] [address] [place] [address] [place] [address] [place] [address] 02/16/2024 9:00 AM SKIN SPECIALIST [facility]ointment [facility] [address] [place] [address] [place] [address] [place] [address] [place] [address] [place] [address] 02/19/2024 8:45 AM SKIN SPECIALIST [facility]ointment [facility] [address] [place] [address] [place] [address] [place] [address] [place] [address] [place] [address] 02/19/2024 9:00 AM SKIN SPECIALIST Appointment [facility] Outpatient Rehab [address] [place] [address] [place] [address] [place] [address] [place] [address] [place] [address] 02/23/2024 9:00 AM SKIN SPECIALIST Appointment [facility] Outpatient Rehab [address] [place] [address] [place] [address] [place] [address] [place] [address] [place] [address] 02/24/2024 1:30 PM SKIN SPECIALIST Appointment [facility] [address] [place] [address] [place] [address] [place] [address] 02/26/2024 9:00 AM SKIN SPECIALIST Appointment [facility] Outpatient Rehab [address] [place] [address] [place] [address] [place] [address] [place] [address] [place] [address] 02/26/2024 9:15 AM SKIN SPECIALIST Appointment [facility] Outpatient Rehab [address] [place] [address] [place] [address] [place] [address] [place] [address] [place] [address] 03/01/2024 9:00 AM SKIN SPECIALIST Appointment [facility] Outpatient Rehab [address] [place] [address] [place] [address] [place] [address] [place] [address] [place] [address] Lorene Branch, ANIME ARTIST 03/02/2024 12:27 PM SKIN SPECIALIST Hospital Encounter [facility] [address] [place] [address] [place] [address] [place] [address] 03/02/2024 12:27 PM SKIN SPECIALIST - 03/02/2024 1:07 PM SKIN SPECIALIST Surgery [facility] Surgery [address] [place] [address] [place]hs[place] [address] [place] [address] MANIPULATION [facility] 03/05/2024 9:00 AM SKIN SPECIALIST Appointment [facility] Outpatient Rehab [address] [place] [address] [place] [address] [place] [address] Lorene Branch, ANIME ARTIST 03/08/2024 9:00 AM SKIN SPECIALIST Appointment [facility] Outpatient Rehab [address] [place] [address] [place] [address] [place] [address] Lorene Branch, ANIME ARTIST 03/11/2024 9:15 AM SKIN SPECIALIST Appointment [facility] Outpatient Rehab [address] [place] [address] [place] [address] [place] [address] Lorene Branch, ANIME ARTIST 03/15/2024 9:00 AM SKIN SPECIALIST Appointment [facility] Outpatient Rehab [address] [place] [address] [place] [address] [place] [address] Lorene Branch, ANIME ARTIST 03/18/2024 9:15 AM SKIN SPECIALIST Appointment [facility] Outpatient Rehab [address] [place] [address] [place] [address] [place] [address] Lorene Branch, ANIME ARTIST 03/22/2024 9:00 AM SKIN SPECIALIST Appointment [facility] Outpatient Rehab [address] [place] [address] [place] [address] [place] [address] Lorene Branch, ANIME ARTIST 03/25/2024 9:15 AM SKIN SPECIALIST Appointment [facility] Outpatient Rehab [address] [place] [address] [place] [address] [place] [address] Lorene Branch, ANIME ARTIST 04/21/2024 11:20 AM SKIN SPECIALIST Office Visit [facility] Medical Group Family & Internal Medicine [facility] [address] [place] [phone] [place] [address] [place] [address] Scheduled Procedures Name Priority Associated Diagnoses Date/Ti me MANIPULATION SHOULDER Adhesive capsulitis of left shoulder 03/02/2024 12:27 PM SKIN SPECIALIST INJECTION JOINT Adhesive capsulitis of left shoulder 03/02/2024 12:27 PM SKIN SPECIALIST documented as of this encounter Visit Diagnoses Not on filedocumented in this encounter Additional Health Concerns Assessment Noted Time PHQ-9 Depression Total Score: 024 3:24 PM CDT documented as of this encounter Care Teams Machined Parts Metal Sprayer Relationship Specialty [place] [address] [place] [address] PCP - General Physician Social Services Technician Medical 09/16/23 documented as of this encounter
--- OUTSIDE RECORDS SUMMARY | 2024-02-12 03:30 | XMS_ITS | Encounter Summary ---
Author Organization [facility] Address Counts include 234 beds at the [facility] [place] [address] [place] [address] Care Team Providers Care Employee Development Manager Name Role Phone Holger Soriano Primary Care Provider Encounter Details Date Type Department Care Team (Latest Contact Info) Description 09/16/2023 Travel Social History Tobacco Use Types Packs/Day [...] Contact Info) Description 02/12/2024 9:00 AM OIL FIELD LABORER Appointment [facility] Outpatient Rehab [address] [place] [address] [place] [address] [place] [address] [place] [address] [place] [address] 02/12/2024 2:00 PM OIL FIELD LABORER Appointment [facility] MRI [address] [place] [address] [place] [address] [place] [address] 02/16/2024 9:00 AM OIL FIELD LABORER Appointment [facility] Outpatient Rehab [address] [place] [address] [place] [address] [place] [address] [place] [address] [place] [address] 02/19/2024 8:45 AM OIL FIELD LABORER Appointment [facility] Outpatient Rehab [address] [place] [address] [place] [address] [place] [address] [place] [address] [place] [address] 02/19/2024 9:00 AM OIL FIELD LABORER Appointment [facility] Outpatient Rehab [address] [place] [address] [place] [address] [place] [address] [place] [address] [place] [address] 02/23/2024 9:00 AM OIL FIELD LABORER Appointment [facility] Outpatient Rehab [address] [place] [address] [place] [address] [place] [address] [place] [address] [place] [address] 02/24/2024 1:30 PM OIL FIELD LABORER Appointment [facility] [address] [place] [address] [place] [address] [place] [address] 02/26/2024 9:00 AM OIL FIELD LABORER Appointment [facility] Outpatient Rehab [address] [place] [address] [place] [address] [place] [address] [place] [address] [place] [address] 02/26/2024 9:15 AM OIL FIELD LABORER Appointment [facility] Outpatient Rehab [address] [place] [address] [place] [address] [place] [address] [place] [address] [place] [address] 03/01/2024 9:00 AM OIL FIELD LABORER Appointment [facility] Outpatient Rehab [address] [place] [address] [place] [address] [place] [address] [place] [address] [place] [address] Lorene Branch, SHOE TURNER 03/02/2024 12:27 PM OIL FIELD LABORER Hospital Encounter [facility] [address] [place] [address] [place] [address] [place] [address] 03/02/2024 12:27 PM OIL FIELD LABORER - 03/02/2024 1:07 PM OIL FIELD LABORER Surgery [address] [address] [place] [address] [place] [address] MANIPULATION SHOULDER 03/05/2024 9:00 AM OIL FIELD LABORER Appointment [facility] Outpatient Rehab [address] [place] [address] [place] [address] [place] [address] Lorene Branch, SHOE TURNER 03/08/2024 9:00 AM OIL FIELD LABORER Appointment [facility] Outpatient Rehab [address] [place] [address] [place] [address] [place] [address] Lorene Branch, SHOE TURNER 03/11/2024 9:15 AM OIL FIELD LABORER Appointment [facility] Outpatient Rehab [address] [place] [address] [place] [address] [place] [address] Lorene Branch, SHOE TURNER 03/15/2024 9:00 AM OIL FIELD LABORER Appointment [facility] [address] [place] [address] [place] [address] [place] [address] Lorene Branch, SHOE TURNER 03/18/2024 9:15 AM OIL FIELD LABORER Appointment [facility] [address] [place] [address] [place] [address] [place] [address] Lorene Branch, SHOE TURNER 03/22/2024 9:00 AM OIL FIELD LABORER Appointment [facility] [address] [place] [address] [place] [address] [place] [address] Lorene Branch, SHOE TURNER 03/25/2024 9:15 AM OIL FIELD LABORER Appointment [facility] [address] [place] [address] [place] [address] [place] [address] Lorene Branch, SHOE TURNER 04/21/2024 11:20 AM OIL FIELD LABORER Office Visit [facility] Medical Group Family & Internal Medicine - [address] [address] [place] [address] [place] [address] Scheduled Procedures Name Priority Associated Diagnoses Date/Ti me MANIPULATION SHOULDER Adhesive capsulitis of left shoulder 03/02/2024 12:27 PM OIL FIELD LABORER INJECTION JOINT Adhesive capsulitis of left shoulder 03/02/2024 12:27 PM OIL FIELD LABORER documented as of this encounter Visit Diagnoses Not on filedocumented in this encounter Additional Health Concerns Assessment Noted Time PHQ-9 Depression Total Score: 024 3:24 PM CDT documented as of this encounter Care Teams Employee Development Manager Relationship Specialty [place] [address] [place] [address] PCP - General Physician Community Engagement Leader Medical 09/16/23 documented as of this encounter
--- OUTSIDE RECORDS SUMMARY | 2024-02-12 03:30 | XMS_ITS | Encounter Summary ---
Author Organization [facility] Address [facility] [place] [address] [place] [address] Care Team Providers Care Coal Miner Name Role Phone Marv Young NP Primary Care Provide r Brennon Flores MD Primary Care Provider [phone] Holger Soriano Primary Care Provider [phone] Encounter Details Date Type Department Care Team (Late st Contact Info) Description 09/11/2023 [employer] Message Enc [facility] Medical [facility] Family & Internal Medicine [facility] [address] [place] [address] Kayla, [facility] Provider reschedule appoitment Social History Tobacco Use Types Packs/Day Years [...] st Contact Info) Description 02/12/2024 9:00 AM CO FOUNDER AND CHAIRMAN Appointment [facility] [address] [place] [address] [place] [address] [place] [address] [place] [address] [place] [address] 02/12/2024 2:00 PM CO FOUNDER AND CHAIRMAN Appointment [place] [address] [place] [address] [place] [address] [place] [address] 02/16/2024 9:00 AM CO FOUNDER AND CHAIRMAN Appointment [facility] [address] [place] [address] [place] [address] [place] [address] [place] [address] [place] [address] 02/19/2024 8:45 AM CO FOUNDER AND CHAIRMAN Appointment [facility] [address] [place] [address] [place] [address] [place] [address] [place] [address] [place] [address] 02/19/2024 9:00 AM CO FOUNDER AND CHAIRMAN Appointment [facility] [address] [place] [address] [place] [address] [place] [address] [place] [address] [place] [address] 02/23/2024 9:00 AM CO FOUNDER AND CHAIRMAN Appointment [facility] [address] [place] [address] [place] [address] [place] [address] [place] [address] [place] [address] 02/24/2024 1:30 PM CO FOUNDER AND CHAIRMAN Appointment [facility] MRI [address] [place] [address] Ihsan Logan, [address] [place] [address] 02/26/2024 9:00 AM CO FOUNDER AND CHAIRMAN Appointment [facility] [address] [place] [address] [place] [address] [place] [address] [place] [address] [place] [address] 02/26/2024 9:15 AM CO FOUNDER AND CHAIRMAN Appointment [facility] [address] [place] [address] [place] [address] [place] [address] [place] [address] [place] [address] 03/01/2024 9:00 AM CO FOUNDER AND CHAIRMAN Appointment [facility] [address] [place] [address] [place] [address] [place] [address] [place] [address] [place] [address] Lorene Branch, SUPPLY CLERK 03/02/2024 12:27 PM CO FOUNDER AND CHAIRMAN Hospital Encounter [facility] Surgery [address] [place] [address] [place] [address] [place] [address] 03/02/2024 12:27 PM CO FOUNDER AND CHAIRMAN - 03/02/2024 1:07 PM CO FOUNDER AND CHAIRMAN Surgery [facility] Surgery [address] [place] [address] [place] [address] [place] [address] MANIPULATION SHOULDER 03/05/2024 9:00 AM CO FOUNDER AND CHAIRMAN Appointment [facility] [address] [place] [address] [place] [address] [place] [address] Lorene Branch, SUPPLY CLERK 03/08/2024 9:00 AM CO FOUNDER AND CHAIRMAN Appointment [facility] [address] [place] [address] [place] [address] [place] [address] Lorene Branch, SUPPLY CLERK 03/11/2024 9:15 AM CO FOUNDER AND CHAIRMAN Appointment [facility] [address] [place] [address] [place] [address] [place] [address] Lorene Branch, SUPPLY CLERK 03/15/2024 9:00 AM CO FOUNDER AND CHAIRMAN Appointment [facility] [address] [place] [address] [place] [address] [place] [address] Lorene Branch, SUPPLY CLERK 03/18/2024 9:15 AM CO FOUNDER AND CHAIRMAN Appointment [facility] [address] [place] [address] [place] [address] [place] [address] Lorene Branch, SUPPLY CLERK 03/22/2024 9:00 AM CO FOUNDER AND CHAIRMAN Appointment [facility] [address] [place] [address] [place] [address] [place] [address] Lorene Branch, SUPPLY CLERK 03/25/2024 9:15 AM CO FOUNDER AND CHAIRMAN Appointment [facility] [address] [place] [address] [place] [address] [place] [address] Lorene Branch, SUPPLY CLERK 04/21/2024 11:20 AM CO FOUNDER AND CHAIRMAN Office Visit [facility] Family & Internal Medicine [facility] [address] [place] [phone] [place] [address] [place], [place] [id number] Scheduled Procedures Name Priority Associated Diagnoses Date/Ti me MANIPULATION SHOULDER Adhesive capsulitis of left shoulder 03/02/2024 12:27 PM CO FOUNDER AND CHAIRMAN INJECTION JOINT Adhesive capsulitis of left shoulder 03/02/2024 12:27 PM CO FOUNDER AND CHAIRMAN documented as of this encounter Visit Diagnoses Not on filedocumented in this encounter Additional Health Concerns Infection Onset Date Last Indicated Resolved Time COVID-19 Rule Out 10/17/2023 10/17/2023 10/17/2023 10:57 AM CDT COVID-19 Rule Out 12/29/2023 12/29/2023 12/29/2023 12:59 PM CO FOUNDER AND CHAIRMAN Assessment Noted Time PHQ-9 Depression Total Score: 5 03/18/19 2:22 PM CO FOUNDER AND CHAIRMAN documented as of this encounter Care Teams Coal Miner Relationship Specialty Start Date End Date Marv Young NP PCP - General NURSE PRACTITIONER ADULT HEALTH 03/11/23 09/14/23 [place] [address] [address] PCP - General INTERNAL MEDICINE 09/15/23 09/15/23 [place] [address] [place] [address] PCP - General Physician Clinical Sciences Professor Medical 09/16/23 documented as of this encounter
--- OUTSIDE RECORDS SUMMARY | 2024-02-12 03:30 | XMS_ITS | Encounter Summary ---
Author Organization [facility] Address [facility] [place] [address] [place] [address] Care Team Providers Care Instructional Technology Specialist Name Role Phone Marv Young NP Primary Care Provide r Brennon Flores MD Primary Care Provider [phone] Holger Soriano Primary Care Provider [phone] Encounter Details Date Type Department Care Team (Late st Contact Info) Description 08/22/2023 [employer] Message Enc [facility] Medical Group Family & Internal Medicine [facility] [address] [place] [address] [facility] medication refills Social History Tobacco Use Types Packs/Day Years [...] st Contact Info) Description 02/12/2024 9:00 AM TEST CONDUCTOR Appointment [facility] Out[facility]hab [address] [place] [address], [place] [address] [place] [address] [place] [address] [place] [address] [place] [address] 02/12/2024 2:00 PM TEST CONDUCTOR Appointment [facility] [place] [address] [place] [address] [place] [address] [place] [address] 02/16/2024 9:00 AM TEST CONDUCTOR Appointment [facility] [address] [place] [address] [place] [address] [place] [address] [place] [address] [place] [address] 02/19/2024 8:45 AM TEST CONDUCTOR Appointment [facility] [address] [place] [address] [place] [address] [place] [address] [place] [address] [place] [address] 02/19/2024 9:00 AM TEST CONDUCTOR Appointment [facility] [address] [place] [address] [place] [address] [place] [address] [place] [address] [place] [address] 02/23/2024 9:00 AM TEST CONDUCTOR Appointment [facility] [address] [place] [address] [place] [address] [place] [address] [place] [address] [place] [address] 02/24/2024 1:30 PM TEST CONDUCTOR Appointment [address] [address] Ihsan Logan, [address] [place] [address] 02/26/2024 9:00 AM TEST CONDUCTOR Appointment [facility] [address] [place] [address] [place] [address] [place] [address] [place] [address] [place] [address] 02/26/2024 9:15 AM TEST CONDUCTOR Appointment [facility] [address] [place] [address] [place] [address] [place] [address] [place] [address] [place] [address] 03/01/2024 9:00 AM TEST CONDUCTOR Appointment [facility] [address] [place] [address] [place] [address] [place] [address] [place] [address] [place] [address] Lorene Branch, RESERVATIONS MANAGER 03/02/2024 12:27 PM TEST CONDUCTOR Hospital Encounter [facility] Surgery [address] [place] [address] [place] [address] [place] [address] 03/02/2024 12:27 PM TEST CONDUCTOR - 03/02/2024 1:07 PM TEST CONDUCTOR Surgery [facility] Surgery [address] [place] [address] [place] [address] [place] [address] MANIPULATION SHOULDER 03/05/2024 9:00 AM TEST CONDUCTOR Appointment [facility] [address] [place] [address] [place] [address] [place] [address] Lorene Branch, RESERVATIONS MANAGER 03/08/2024 9:00 AM TEST CONDUCTOR Appointment [facility] [address] [place] [address] [place] [address] [place] [address] Lorene Branch, RESERVATIONS MANAGER 03/11/2024 9:15 AM TEST CONDUCTOR Appointment [facility] [address] [place] [address] [place] [address] [place] [address] Lorene Branch, RESERVATIONS MANAGER 03/15/2024 9:00 AM TEST CONDUCTOR Appointment [facility] [address] [place] [address] [place] [address] [place] [address] Lorene Branch, RESERVATIONS MANAGER 03/18/2024 9:15 AM TEST CONDUCTOR Appointment [facility] [address] [place] [address] [place] [address] [place] [address] Lorene Branch, RESERVATIONS MANAGER 03/22/2024 9:00 AM TEST CONDUCTOR Appointment [facility] [address] [place] [address] [place] [address] [place] [address] Lorene Branch, RESERVATIONS MANAGER 03/25/2024 9:15 AM TEST CONDUCTOR Appointment [facility] [address] [place] [address] [place] [address] [place] [address] Lorene Branch, RESERVATIONS MANAGER 04/21/2024 11:20 AM TEST CONDUCTOR Office Visit [facility] Medical Group Family & Internal Medicine [facility] [address] [place] [address] [place] [address] [place] [address] Scheduled Procedures Name Priority Associated Diagnoses Date/Ti me MANIPULATION SHOULDER Adhesive capsulitis of left shoulder 03/02/2024 12:27 PM TEST CONDUCTOR INJECTION JOINT Adhesive capsulitis of left shoulder 03/02/2024 12:27 PM TEST CONDUCTOR documented as of this encounter Visit Diagnoses Not on filedocumented in this encounter Additional Health Concerns Infection Onset Date Last Indicated Resolved Time COVID-19 Rule Out 10/17/2023 10/17/2023 10/17/2023 10:57 AM CDT COVID-19 Rule Out 12/29/2023 12/29/2023 12/29/2023 12:59 PM TEST CONDUCTOR Assessment Noted Time PHQ-9 Depression Total Score: 5 03/18/19 24 2:22 PM TEST CONDUCTOR documented as of this encounter Care Teams Instructional Technology Specialist Relationship Specialty Start Date End Date Marv Young NP PCP - General NURSE PRACTITIONER ADULT HEALTH 03/11/23 09/14/23 [place] [address] [facility] [address] [place] [address] PCP - General INTERNAL MEDICINE 09/15/23 09/15/23 [place] [address] [place] [address] PCP - General Physician [facility] 09/16/23 documented as of this encounter
--- OUTSIDE RECORDS SUMMARY | 2024-02-12 03:31 | XMS_ITS | Encounter Summary ---
Author Organization [facility] Address [facility] [place] [address] [place] [address] Care Team Providers Care Concrete Batching Plant Operator Name Role Phone Marv Young VALET RUNNER Primary Care Provide r Encounter Details Date Type Department Care Team (Late st Contact Info) Description 05/23/2023 Care Management [facility] Medical Group Family & Internal Medicine [address] [address] Marv Young, VALET RUNNER [address] [facility] [place] [address] Social History Tobacco Use Types Packs/Day Years [...] Progress Notes * Jasiel Barber RN - 05/23/2023 2:13 PM CDTAddended by: JASIEL BARBER on: 05/26/2023 04:02 PM Modules accepted: Orders * Marv Young NP - 05/23/2023 2:13 PM CDT MRI needs to be ordered for possible left arm bicep tear. Work note created and given to patient. documented in this encounter Plan of Treatment Upcoming Encounters Date Type Department Care Team (Late st Contact Info) Description 02/12/2024 9:00 AM SHAREPOINT ARCHITECT Appointment [facility] Out[facility] [address] [place] [address] [place] [address] [place] [address] [place] [address] [place] [address] 02/12/2024 2:00 PM SHAREPOINT ARCHITECT Appointment [facility] [address] [place] [address] [place] [address] [place] [address] 02/16/2024 9:00 AM SHAREPOINT ARCHITECT Appointment [facility] [address] [place] [address] [place] [address] [place] [address] [place] [address] [place] [address] 02/19/2024 8:45 AM SHAREPOINT ARCHITECT Appointment [facility] [address] [place] [address] [place] [address] [place] [address] [place] [address] [place] [address] 02/19/2024 9:00 AM SHAREPOINT ARCHITECT Appointment [facility] [address] [place] [address] [place] [address] [place] [address] [place] [address] [place] [address] 02/23/2024 9:00 AM SHAREPOINT ARCHITECT Appointment [facility] [address] [place] [address] [place] [address] [place] [address] [place] [address] [place] [address] 02/24/2024 1:30 PM SHAREPOINT ARCHITECT Appointment [facility] [address] [place] [address] Ihsan Logan, [address] [place] [address] 02/26/2024 9:00 AM SHAREPOINT ARCHITECT Appointment [facility] [address] [place] [address] [place] [address] [place] [address] [place] [address] [place] [address] 02/26/2024 9:15 AM SHAREPOINT ARCHITECT Appointment [facility] [address] [place] [address] [place] [address] [place] [address] [place] [address] [place] [address] 03/01/2024 9:00 AM SHAREPOINT ARCHITECT Appointment [facility] [address] [place] [address] [place] [address] [place] [address] Holger Soriano, TYLER [address] [place] [address] Lorene Branch, POWERHOUSE LABORER 03/02/2024 12:27 PM SHAREPOINT ARCHITECT Hospital Encounter [address] [address] [place] [address] [place] [address] 03/02/2024 12:27 PM SHAREPOINT ARCHITECT - 03/02/2024 1:07 PM SHAREPOINT ARCHITECT Surgery [facility] Surgery [address] [place] [address] [place] [address] [place] [address] MANIPULATION SHOULDER 03/05/2024 9:00 AM SHAREPOINT ARCHITECT Appointment [facility] [address] [place] [address] [place] [address] [place] [address] Lorene Branch, POWERHOUSE LABORER 03/08/2024 9:00 AM SHAREPOINT ARCHITECT Appointment [facility] [address] [place] [address] [place] [address] [place] [address] Lorene Branch, POWERHOUSE LABORER 03/11/2024 9:15 AM SHAREPOINT ARCHITECT Appointment [facility] [address] [place] [address] [place] [address] [place] [address] Lorene Branch, POWERHOUSE LABORER 03/15/2024 9:00 AM SHAREPOINT ARCHITECT Appointment [facility] [address] [place] [address] [place] [address] [place] [address] Lornee Branch, POWERHOUSE LABORER 03/18/2024 9:15 AM SHAREPOINT ARCHITECT Appointment [facility] [address] [place] [address] [place] [address] [place] [address] Lorene Branch, POWERHOUSE LABORER 03/22/2024 9:00 AM SHAREPOINT ARCHITECT Appointment [facility] [address] [place] [address] [place] [address] [place] [address] Lorene Branch, POWERHOUSE LABORER 03/25/2024 9:15 AM SHAREPOINT ARCHITECT Appointment [facility] [address] [place] [address] [place] [address] [place] [address] Lorene Branch, POWERHOUSE LABORER 04/21/2024 11:20 AM SHAREPOINT ARCHITECT Office Visit [facility] Medical Group Family & Internal Medicine [facility] [address] [place] [phone] [place] [address] [place] [address] Scheduled Procedures Name Priority Associated Diagnoses Date/Ti me MANIPULATION SHOULDER Adhesive capsulitis of left shoulder 03/02/2024 12:27 PM SHAREPOINT ARCHITECT INJECTION JOINT Adhesive capsulitis of left shoulder 03/02/2024 12:27 PM SHAREPOINT ARCHITECT documented as of this encounter Visit Diagnoses Diagnosis Strain of left biceps, initial encounter- Primary Tendinopathy of left biceps tendon Adhesive capsulitis of left shoulder Adhesive capsulitis of shoulder documented in this encounter Additional Health Concerns Assessment Noted Time PHQ-9 Depression Total Score: 5 03/18/19 24 2:22 PM SHAREPOINT ARCHITECT documented as of this encounter Care Teams Concrete Batching Plant Operator Relationship Specialty Start Date End Date Marv Young NP PCP - General NURSE PRACTITIONER ADULT HEALTH 03/11/23 09/14/23 documented as of this encounter
--- OUTSIDE RECORDS SUMMARY | 2024-02-12 03:31 | XMS_ITS | Encounter Summary ---
Author Organization [facility] Address [facility] [place] [address] [place] [address] Care Team Providers Care Planetarium Technician Name Role Phone Marv Young INSIDE SOLAR SALES CONSULTANT Primary Care Provide r Reason for Visit * Reason Onset Date Comments FYI 05/29/2023 Encounter Details Date Type Department Care Team (Late st Contact Info) Description 05/29/2023 Telephone [facility] Family & Internal Medicine [facility] [id number] [place] [phone] Marv Young, INSIDE SOLAR SALES CONSULTANT [address] [facility] [place] [address] FYI Social History Tobacco Use Types Packs/Day Years [...] Progress Notes * Susana Nunez MA - 05/29/2023 11:02 AM CDT FYI * Stacy Isaac - 05/29/2023 10:55 AM CDT PT called backing stating she has an appt w/Dr Darren Morgan Orthopedic Surgoen on FridayJune 01 FYI * Sanjuana Choi MA - 05/29/2023 10:48 AM CDT FYI * Alvina Gross - 05/29/2023 9:33 AM CDT Patient called and stated that her dog hit her sore arm, and has caused her excruciating pain in her shoulder as well as her arm now, She went to the ER and the ER doctor recommended that she have the MRI of her shoulder, and humerus. She also said that the ER referred her to Orthopedic Spine Surgeon Darren Morgan DO. She has been trying to contact their office and has been unsuccessful so far. She said once she hears from Dr. Morgan's office she will call our office back. documented in this encounter Plan of Treatment Upcoming Encounters Date Type Department Care Team (Late st Contact Info) Description 02/12/2024 9:00 AM MANAGER FRAUD Appointment [facility] [address] [place] [address] [place] [address] [place] [address] [place] [address] [place] [address] 02/12/2024 2:00 PM MANAGER FRAUD [facility]ointment [facility] MRI [address] [place] [address] [place] [address] [place] [address] 02/16/2024 9:00 AM MANAGER FRAUD Appointment [facility] [address] [place] [address] [place] [address] [place] [address] [place] [address] [place] [address] 02/19/2024 8:45 AM MANAGER FRAUD Appointment [facility] [address] [place] [address] [place] [address] [place] [address] [place] [address] [place] [address] 02/19/2024 9:00 AM MANAGER FRAUD Appointment [facility] [address] [place] [address] [place] [address] [place] [address] [place] [address] [place] [address] 02/23/2024 9:00 AM MANAGER FRAUD Appointment [facility] [address] [place] [address] [place] [address] [place] [address] [place] [address] [place] [address] 02/24/2024 1:30 PM MANAGER FRAUD [facility]oint[address] [facility] MRI [address] [place] [address] Ihsan Logan, [address] [place] [address] 02/26/2024 9:00 AM MANAGER FRAUD Appointment [facility] [address] [place] [address] [place] [address] [place] [address] [place] [address] [place] [address] 02/26/2024 9:15 AM MANAGER FRAUD Appointment [facility] [address] [place] [address] [place] [address] [place] [address] [place] [address] [place] [address] 03/01/2024 9:00 AM MANAGER FRAUD [address]oint[address] [facility] [address] [place] [address] [place] [address] [place] [address] [place] [address] [place] [address] Lorene Branch, CRAWLER DRAGLINE OPERATOR 03/02/2024 12:27 PM MANAGER FRAUD Hospital Encounter [facility] [id number] [place] [address] [place] [address] [place] [address] 03/02/2024 12:27 PM MANAGER FRAUD - 03/02/2024 1:07 PM MANAGER FRAUD Surgery [facility] Surgery [address] [place] [address] [place] [address] [place] [address] MANIPULATION SHOULDER 03/05/2024 9:00 AM MANAGER FRAUD Appointment [facility] [address] [place] [address] [place] [address] [place] [address] Lorene Branch, CRAWLER DRAGLINE OPERATOR 03/08/2024 9:00 AM MANAGER FRAUD Appointment [facility] [address] [place] [address] [place] [address] [place] [address] Lorene Barnch, CRAWLER DRAGLINE OPERATOR 03/11/2024 9:15 AM MANAGER FRAUD Appointment [facility] [address] [place] [address] [place] [address] [place] [address] Lorene Branch, CRAWLER DRAGLINE OPERATOR 03/15/2024 9:00 AM MANAGER FRAUD Appointment [facility] [address] [place] [address] [place] [address] [place] [address] Lorene Branch, CRAWLER DRAGLINE OPERATOR 03/18/2024 9:15 AM MANAGER FRAUD Appointment [facility] [address] [place] [address] [place] [address] [place] [address] Lorene Branch, CRAWLER DRAGLINE OPERATOR 03/22/2024 9:00 AM MANAGER FRAUD Appointment [facility] [address] [place] [address] [place] [address] [place] [address] Lorene Branch, CRAWLER DRAGLINE OPERATOR 03/25/2024 9:15 AM MANAGER FRAUD Appointment [facility] [address] [place] [address] [place] [address] [place] [address] Lorene Branch, CRAWLER DRAGLINE OPERATOR 04/21/2024 11:20 AM MANAGER FRAUD Office Visit [facility] Family & Internal Medicine - [address] [phone] [place] [address] [place] [address] Scheduled Procedures Name Priority Associated Diagnoses Date/Ti me MANIPULATION SHOULDER Adhesive capsulitis of left shoulder 03/02/2024 12:27 PM MANAGER FRAUD INJECTION JOINT Adhesive capsulitis of left shoulder 03/02/2024 12:27 PM MANAGER FRAUD documented as of this encounter Visit Diagnoses Not on filedocumented in this encounter Additional Health Concerns Assessment Noted Time PHQ-9 Depression Total Score: 5 03/18/19 24 2:22 PM MANAGER FRAUD documented as of this encounter Care Teams Planetarium Technician Relationship Specialty Start Date End Date Marv Young NP PCP - General NURSE PRACTITIONER ADULT HEALTH 03/11/23 09/14/23 documented as of this encounter
--- OUTSIDE RECORDS SUMMARY | 2024-02-12 03:31 | XMS_ITS | Encounter Summary ---
Author Organization [facility] Address [facility] [place] [address] [place] [address] Care Team Providers Care Explosives Handler Name Role Phone Marv Young NP Primary Care Provide r Reason for Referral * Medication Prior Authorization - Denied Specialty Diagnoses / Procedures Referred By Contac t Referred To Contact Stacy Ny MD [address] [place] [phone] Phone: tel: fax: Referral ID Status Reason Start Date Expiration Date Visits Re quested Visits Authorized [id number] Denied 1 1 Reason for Visit * Reason Comments Shoulder Pain Encounter Details Date Type Department Care Team (Late st Contact Info) Description 05/29/2023 1:34 AM CDT - 05/29/2023 2:37 AM CDT Emergency [facility] Emergency Room [address] [place] [address] Stacy Ny MD [address] [place] [id number] Shoulder Pain Discharge Disposition: Home or Self Care (Routine Discharge) Social History Tobacco Use Types Packs/Day Years Used Date Smoking Tobacco: Former Cigarettes Q uit: 03/18/2023 Passive Smoke Exposure: Current Smokeless Tobacco: Never Tobacco Cessation:Counseling Given: Not Answered Alcohol Use Standard Drinks/Week Comments Yes 0 [...] Sign Reading Time Taken Comments Blood Pressure 142/99 05/29/2023 1:45 AM CDT Pulse 87 05/29/2023 1:45 AM CDT Temperature 36.6 ??C (97.9 ??F) 05/29/2023 1:45 AM C DT Respiratory Rate 16 05/29/2023 1:45 AM CDT Oxygen Saturation 100% 05/29/2023 1:45 AM CDT Inhaled Oxygen Concentration - - Weight 85.7 kg (189 lb) 05/29/2023 1:45 AM CDT Height 157.5 cm (5' 2 ) 05/29/2023 1:45 AM CDT Body Mass Index 34.57 05/29/2023 1:45 AM CDT documented in this encounter Discharge Instructions * Discharge Instructions* Stacy Schreiber MD - 05/29/2023 1:55 AM CDT You had a shoulder injury. You will be sent home with prescriptions for lidocaine patches Please schedule a follow up appointment with your primary care physician within the next 5-7 days Please return to the Emergency Department for any new or worsening concern You can go to a walk in orthopedic injury clinic: [facility] System: [facility] and [facility] [id number] [place] [address], [address] [place] [address] Free surface lot parking Hours: Friday-: Noon - 7:00 pm Hours: Friday: Noon - 6:00 pm Friday: 8:00 am - Noon [address], [address] [place] [address] Free surface lot parking Hours: Friday-: Noon - 7:00 pm Hours: Friday: Noon - 6:[address] [facility] - Now Open! Medical Office Building [address] [facility], [address] [place] [address] Free surface lot parking Hours: Friday-: Noon - 7:00 pm Friday: Noon - 6:00 pm Friday: 8:00 am - Noon Orthopedic Injury Clinic in [facility] and [facility] Orth[facility] ([facility]) [place] [address] [address] [place] [address] [facility] Orthopedic and Walk-in Care at the [facility] Medicine [facility] Orthopedics & Sports Medicine at [place] [phone] Call to see if they take walk ins * Attachments The following attachments cannot be sent through Care Everywhere. * Shoulder Pain ED ([place]) documented in this encounter Medications at Time of Discharge albuterol sulfate HFA 108 (90 Base) MCG/ACT inhalerIndication s:Acute cough,Wheezing Inhale 2 puffs into the lungs every 4 (four) hours as needed for Wheezing or Shortness of breath. 18 g 04/01/2023 acetaminophen (TYLENOL) 325 MG tablet PLEASE SEE ATTACHED FOR DETAILED DIRECTIONS 02/12/2023 4 ALPRAZolam (XANAX) 0.5 MG tablet TAKE 1 ORAL TABLET ONCE A DAY FOR ANXIETY ONSET 07/26/2022 4 ARIPiprazole (ABILIFY) 15 MG tabletIndications :Depression, unspecified depression type Take 1 tablet (15 mg total) by mouth daily. 30 tablet 2 03/18/2023 4 DULoxetine (CYMBALTA) 30 MG capsuleIndication s:Depression, unspecified depression type Take 1 capsule (30 mg total) by mouth 2 (two) times daily. 60 capsule 2 03/18/2023 4 estradiol (ESTRACE) 2 MG tabletIndications :Menopausal and female climacteric states Take 1 tablet (2 mg total) by mouth daily. 28 tablet 2 03/18/2023 4 famotidine (PEPCID) 20 MG tabletIndications :Gastroesophageal reflux disease without esophagitis Take 1 tab by mouth every morning. 90 tablet 1 03/18/2023 4 fluticasone propionate (FLONASE) 50 MCG/ACT nasal spray 2 sprays by Each Nostril route daily. SHAKE LIQUID 03/28/2022 4 ibuprofen (MOTRIN) 600 MG tablet Take 1 tablet (600 mg total) by mouth every 6 (six) hours as needed. 02/12/2023 4 lidocaine (LIDODERM) 5 % Place 1 patch onto the skin daily for 30 days. Remove & Discard patch within 12 hours or as directed by 30 patch 05/29/2023 4 naproxen (NAPROSYN) 500 MG tabletIndications :Tendinopathy of left biceps tendon,Strain of left biceps, initial encounter Take 1 tablet (500 mg total) by mouth 2 (two) times daily with meals. 60 tablet 05/16/2023 4 OZEMPIC 1 mg/dose injection (PEN) INJECT 1 MG UNDER THE SKIN ONCE WEEKLY FOR THE NEXT 12 WEEKS 10/29/2022 4 progesterone (PROMETRIUM) 100 MG capsuleIndication s:Menopausal and female climacteric states Take 1 capsule (100 mg total) by mouth daily. 30 capsule 2 03/18/2023 4 QUEtiapine (SEROQUEL) 100 MG tabletIndications :Bipolar I disorder with depression ([facility] HHS/HCC) Take 1 tablet (100 mg total) by mouth nightly at bedtime. 90 tablet 03/18/2023 4 semaglutide (OZEMPIC) 1 mg/dose injection (PEN)Indications: Type 2 diabetes mellitus without complication, with long-term current use of insulin ([facility] H[facility]/HCC) Inject 1 mg into the skin once a week for 84 days. 3 mL 2 03/18/2023 4 SUMAtriptan (IMITREX) 25 MG tabletIndications :Migraine with status migrainosus, not intractable, unspecified migraine type Take 1 tablet (25 mg total) by mouth daily as needed for Migraine. Max of 8 tablets (200 mg) in a 24 hour period. 30 tablet 2 03/18/2023 4 traMADol (ULTRAM) 50 MG tabletIndications :Acute Pain < 7 Day Supply Take 1 tablet (50 mg total) by mouth every 6 (six) hours as needed for Pain. Indications: Acute Pain < 7 Day Supply 28 tablet 05/27/2023 4 documented as of this encounter ED Notes * Shawn Castrejon RN - 05/29/2023 1:43 AM CDT Pt to the ed with c/o left shoulder pain. Reports falling back in February and has had difficulties with the left arm since the fall. States tonight her dog pulled her left arm back and she is now having limited movement as well as increased pain in left shoulder. Took flexeril at 1700 when event happened. * Stacy Schreiber MD - 05/29/2023 1:27 AM CDT Chief Complaint Chief Complaint Patient presents with Shoulder Pain History of Present Illness Patient is a 47 yo F w/ PMH of ADHD presenting w/ shoulder pain. She had a fall in February and landed hitting her head and left shoulder. Since then she has had left arm pain. She was playing with her dog a few days ago and felt a strain in her bicep. She has had pain with movement and decreased ROM since then. Tonight, her dog accidentally hit her arm upwards causing worsening pain. She's been pr escribed tramadol and naproxen which she hasn't been able to slate picker yet, has an MRI scheduled on 06/12. She is having worsening pain tonight, no paresthesias or weakness. No rashes, wounds, swelling,bruising, erythema, warmth. No other complaints at this time. Medical History ALLERGIES: Review of patient's allergies indicates: Allergen Reactions Parada Anaphylaxis Iodine Rash, Hives and Other (see comment) Reaction: Hives, Iodinated Contrast Media Unknown Itching Ranitidine Unknown Risperidone Other (see comment) Reaction: OTHER REACTION MEDICATIONS: Prior to Admission medications Medication Sig Start Date End Date Taking? Authorizing Provider lidocaine (LIDODERM) 5 % Place 1 patch onto the skin daily for 30 days. Remove & Discard patch within 12 hours or as directed by 05/29/23 06/28/23 Yes Stacy Schreiber MD acetaminophen (TYLENOL) 325 MG tablet PLEASE SEE ATTACHED FOR DETAILED DIRECTIONS 02/12/23 Default History Genericprovider albuterol sulfate HFA 108 (90 Base) MCG/ACT inhaler Inhale 2 puffs into the lungs every 4 (four) hours as needed for Wheezing or Shortness of breath. 04/01/23 Ruthy Siddiqui NP ALPRAZolam (XANAX) 0.5 MG tablet TAKE 1 ORAL TABLET ONCE A DAY FOR ANXIETY ONSET 07/26/22 Default History Genericprovider ARIPiprazole (ABILIFY) 15 MG tablet Take 1 tablet (15 mg total) by mouth daily. 03/18/23 Marv Young NP DULoxetine (CYMBALTA) 30 MG capsule Take 1 capsule (30 mg total) by mouth 2 (two) times daily. 03/18/23 Mavr Young NP estradiol (ESTRACE) 2 MG tablet Take 1 tablet (2 mg total) by mouth daily. 03/18/23 Marv Young NP famotidine (PEPCID) 20 MG tablet Take 1 tab by mouth every morning. 03/18/23 Marv Young NP fluticasone propionate (FLONASE) 50 MCG/ACT nasal spray 2 sprays by Each Nostril route daily. SHAKELIQUID 03/28/22 Default History Genericprovider ibuprofen (MOTRIN) 600 MG tablet Take 1 tablet (600 mg total) by mouth every 6 (six) hours as needed. 02/12/23 Default History Genericprovider naproxen (NAPROSYN) 500 MG tablet Take 1 tablet (500 mg total) by mouth 2 (two) times daily with meals. 05/16/23 Marv Young NP OZEMPIC 1 mg/dose injection (PEN) INJECT 1 MG UNDER THE SKIN ONCE WEEKLY FOR THE NEXT 12 WEEKS 10/29/22 Default History Genericprovider progesterone (PROMETRIUM) 100 MG capsule Take 1 capsule (100 mg total) by mouth daily. 03/18/23 Marv Young NP QUEtiapine (SEROQUEL) 100 MG tablet Take 1 tablet (100 mg total) by mouth nightly at bedtime. 03/18/23 06/16/23 Marv Young NP semaglutide (OZEMPIC) 1 mg/dose injection (PEN) Inject 1 mg into the skin once a week for 84 days. 03/18/23 06/10/23 Marv Young NP SUMAtriptan (IMITREX) 25 MG tablet Take 1 tablet (25 mg total) by mouth daily as needed for Migraine. Max of 8 tablets (200 mg) in a 24 hour period. 03/18/23 Marv Young NP traMADol (ULTRAM) 50 MG tablet Take 1 tablet (50 mg total) by mouth every 6 (six) hours as needed for Pain. Indications: Acute Pain < 7 Day Supply 05/27/23 Marv Young NP PAST MEDICAL HISTORY: Past Medical History: Diagnosis Date ADHD Asthma ([facility]) COPD (chronic obstructive pulmonary disease) ([facility]) PAST SURGICAL HISTORY: History reviewed. No pertinent surgical history. FAMILY HISTORY: Family History Problem Relation Name Age of Onset Dementia Mother Endometriosis Sister Dementia Maternal Grandmother SOCIAL HISTORY: Social History Tobacco Use Smoking status: Former Types: Cigarettes Quit date: 03/18/2023 Years since quittin.1 Passive exposure: Current Smokeless tobacco: Never Vaping Use Vaping Use: Never used Substance Use Topics Alcohol use: Yes Drug use: Never Review of Systems Review of Systems Constitutional: Negative for chills and fever. HENT: Negative for congestion and rhinorrhea. Respiratory: Negative for cough and wheezing. Cardiovascular: Negative for chest pain. Gastrointestinal: Negative for abdominal pain, diarrhea, nausea and vomiting. Genitourinary: Negative for dysuria and hematuria. Neurological: Negative for dizziness and light-headedness. Physical Exam Filed Vitals: 05/29/23 0145 BP: (!) 142/99 Pulse: 87 Resp: 16 Temp: 97.9 ??F (36.6 ??C) TempSrc: Temporal SpO2: 100% Weight: 85.7 kg (189 lb) Height: 1.575 m (5' 2 ) Physical Exam Vitals and nursing note reviewed. Constitutional: General: She is not in acute distress. Appearance: Normal appearance. She is not ill-appearing. HENT: Head: Normocephalic and atraumatic. Cardiovascular: Rate and Rhythm: Normal rate and regular rhythm. Pulmonary: Effort: Pulmonary effort is normal. Breath sounds: Normal breath sounds. Abdominal: General: Abdomen is flat. Palpations: Abdomen is soft. Musculoskeletal: Cervical back: No rigidity or tenderness. Comments: Reduced Rom of left shoulder, no bruising, wounds, erythema identified. No warmth to palpation. Radial pulse intact and strong. Able to flex/extend wrist, make an okay sign, thumbs up. Distal sensation intact medially and laterally in all digits, cap refill < 2 seconds. Tender to palpat ion of left shoulder and proximal humerus. Skin: General: Skin is warm and dry. Neurological: General: No focal deficit present. Mental Status: She is alert and oriented to person, place, and time. Psychiatric: Mood and Affect: Mood normal. Behavior: Behavior normal. Diagnostic Studies / Procedures ELECTROCARDIOGRAMS: No results found for this visit on 05/29/23. LABORATORY STUDIES: No results found for this visit on 05/29/23. IMAGING STUDIES XR SHOULDER LT 3V Final Result by User, [id number] (05/28 221) EXAMINATION: XR HUMERUS LT MIN 2V, XR SHOULDER LT 3V, 05/29/2023 2:15 AM TECHNIQUE: AP, AP external rotation, and scapular Y radiographs of the left shoulder. AP and lateral radiographs of the left humerus. HISTORY: Left shoulder pain. Fall 2-3 months ago COMPARISON: None available FINDINGS: The humerus appears intact. Shoulder and elbow appear well aligned. No acute fracture or destructive process of the visualized osseous structures. Rounded ossific densities near the humeral head which could relate to an old injury and/or calcific tendinosis in the appropriate clinical setting. The left lung apex is well aerated. IMPRESSION: 1. No acute radiographic abnormality of the left shoulder or humerus. 2. Ossific densities along the lateral margin of the humeral head which could relate to calcific tendinosis and/or an old injury in the appropriate clinical setting. Referred By: Interpreted By: Sampson Fatima MD, 05/29/2023 2:15 AM XR HUMERUS LT MIN 2V Final Result by User, [id number] (05/28 221) EXAMINATION: XR HUMERUS LT MIN 2V, XR SHOULDER LT 3V, 05/29/2023 2:15 AM TECHNIQUE: AP, AP external rotation, and scapular Y radiographs of the left shoulder. AP and lateral radiographs of the left humerus. HISTORY: Left shoulder pain. Fall 2-3 months ago COMPARISON: None available FINDINGS: The humerus appears intact. Shoulder and elbow appear well aligned. No acute fracture or destructive process of the visualized osseous structures. Rounded ossific densities near the humeral head which could relate to an old injury and/or calcific tendinosis in the appropriate clinical setting. The left lung apex is well aerated. IMPRESSION: 1. No acute radiographic abnormality of the left shoulder or humerus. 2. Ossific densities along the lateral margin of the humeral head which could relate to calcific tendinosis and/or an old injury in the appropriate clinical setting. Referred By: Interpreted By: Sampson Fatima MD, 05/29/2023 2:15 AM ED Course / Medical Decision Making Patient is a 47 yo F presenting w/ shoulder pain and reduced Rom as described above. Hemodynamically stable on arrival in no distress. Distally NVI in the extremity. Concern for bicep tendon tear, patient came in tonight to have Mri done. I explained that from the ER we cannot do MRIs for Msk causes such as a bicep tendon tear. I ordered Xrays to make sure no occult fracture after being hit by her dog. She is tender to palpation, has reduced ROM, likely MSK cause. No CP, dyspnea, nausea, vomiting, unlikely cardiac or pulmonary in nature. Offered blood work but at this time she would like to hold off as she agrees likely MSK in nature. Treating w/ trentco, lidocaine patch. Will give information to f/u with orthopedics. She will call her PCP this morning to update him that she's been seen. Medical Decision Making Clinical Impression Shoulder pain (Primary) No acute findings on xray imaging Disposition: Discharge Stacy Schreiber MD 05/29/23 0232 documented in this encounter Plan of Treatment Upcoming Encounters Date Type Department Care Team (Late st Contact Info) Description 02/12/2024 9:00 AM SHIRT MARKER Appointment [facility] [address] [place] [address] [place] [address] [place] [address] [place] [address] [place] [address] 02/12/2024 2:00 PM SHIRT MARKER Appointment [facility] [place] [address] [place] [address] [place] [address] [place] [address] 02/16/2024 9:00 AM SHIRT MARKER Appointment [facility] [address] [place] [address] [place] [address] [place] [address] [place] [address] [place] [address] 02/19/2024 8:45 AM SHIRT MARKER Appointment [facility] [address] [place] [address] [place] [address] [place] [address] [place] [address] [place] [address] 02/19/2024 9:00 AM SHIRT MARKER Appointment [facility] [address] [place] [address] [place] [address] [place] [address] [place] [address] [place] [address] 02/23/2024 9:00 AM SHIRT MARKER Appointment [facility] [address] [place] [address] [place] [address] [place] [address] [place] [address] [place] [address] 02/24/2024 1:30 PM SHIRT MARKER Appointment [address] [address] [place] [address] [place] [address] 02/26/2024 9:00 AM SHIRT MARKER Appointment [facility] [address] [place] [address] [place] [address] [place] [address] [place] [address] [place] [address] 02/26/2024 9:15 AM SHIRT MARKER Appointment [facility] [address] [place] [address] [place] [address] [place] [address] [place] [address] [place] [address] 03/01/2024 9:00 AM SHIRT MARKER Appointment [facility] [address] [place] [address] [place] [address] [place] [address] [place] [address] [place] [address] Lorene Branch, SHINGLE CARRIER 03/02/2024 12:27 PM SHIRT MARKER Hospital Encounter [facility] Surgery [address] [place] [address] [place] [address] [place] [address] 03/02/2024 12:27 PM SHIRT MARKER - 03/02/2024 1:07 PM SHIRT MARKER Surgery [facility] Surgery [address] [place] [address] [place] [address] [place] [address] MANIPULATION SHOULDER 03/05/2024 9:00 AM SHIRT MARKER Appointment [facility] [address] [place] [address] [place] [address] [place] [address] Lorene Branch, SHINGLE CARRIER 03/08/2024 9:00 AM SHIRT MARKER Appointment [facility] [address] [place] [address] [place] [address] [place] [address] Lorene Branch, SHINGLE CARRIER 03/11/2024 9:15 AM SHIRT MARKER Appointment [facility] [address] [place] [address] [place] [address] [place] [address] Lorene Branch, SHINGLE CARRIER 03/15/2024 9:00 AM SHIRT MARKER Appointment [facility] [address] [place] [address] [place] [address] [place] [address] Lorene Branch, SHINGLE CARRIER 03/18/2024 9:15 AM SHIRT MARKER Appointment [facility] [address] [place] [address] [place] [address] [place] [address] Lorene Branch, SHINGLE CARRIER 03/22/2024 9:00 AM SHIRT MARKER Appointment [facility] [address] [place] [address] [place] [address] [place] [address] Lorene Branch, SHINGLE CARRIER 03/25/2024 9:15 AM SHIRT MARKER Appointment [facility] [address] [place] [address] [place] [address] [place] [address] Lorene Branch, SHINGLE CARRIER 04/21/2024 11:20 AM SHIRT MARKER Office Visit [facility] Family [facility] Internal [facility] [address] [place] [address] [place] [address] [place] [address] Scheduled Procedures Name Priority Associated Diagnoses Date/Ti me MANIPULATION SHOULDER Adhesive capsulitis of left shoulder 03/02/2024 12:27 PM SHIRT MARKER INJECTION JOINT Adhesive capsulitis of left shoulder 03/02/2024 12:27 PM SHIRT MARKER documented as of this encounter Procedures Procedure Name Priority Date/Time Associated Diagnosis Comments XR SHOULDER LT 3V STAT 05/29/2023 2:1 3 AM CDT XR HUMERUS LT MIN 2V STAT 05/29/2023 2:13 AM CDT documented in this encounter Results * XR HUMERUS LT MIN 2V (05/29/2023 2:13 AM CDT) Anatomical Region Laterality Modality Humerus Radiographic Evelyn ging 05/29/2023 2:15 AM CDT Impressions 05/29/2023 2:17 AM CDT IMPRESSION: 1. ??No acute radiographic abnormality of the left shoulder or humerus. 2. ??Ossific densities along the lateral margin of the humeral head which could relate to calcific tendinosis and/or an old injury in the appropriate clinical setting. Referred By: ?? Interpreted By: Sampson Fatima MD, 05/29/2023 2:15 AM Narrative 05/29/2023 2:17 AM CDT EXAMINATION: XR HUMERUS LT MIN 2V, XR SHOULDER LT 3V, 05/29/2023 2:15 AM TECHNIQUE: AP, AP external rotation, and scapular Y radiographs of the left shoulder. ??AP and lateral radiographs of the left humerus. HISTORY: Left shoulder pain. ??Fall 2-3 months ago COMPARISON: None available FINDINGS: The humerus appears intact. ??Shoulder and elbow appear well aligned. ??No acute fracture or destructive process of the visualized osseous structures. ??Rounded ossific densities near the humeral head which could relate to an old injury and/or calcific tendinosis in the appropriate clinical setting. ??The left lung apex is well aerated. Procedure Note Sampson Fatima MD - 05/29/2023 EXAMINATION: XR HUMERUS LT MIN 2V, XR SHOULDER LT 3V, 05/29/2023 2:15 AM TECHNIQUE: AP, AP external rotation, and scapular Y radiographs of theleft shoulder. AP and lateral radiographs of the left humerus. HISTORY: Left shoulder pain. Fall 2-3 months ago COMPARISON: None available FINDINGS: The humerus appears intact. Shoulder and elbow appear wellaligned. No acute fracture or destructive process of the visualizedosseous structures. Rounded ossific densities near the humeral head whichcould relate to an old injury and/or calcific tendinosis in theappropriate clinical setting. The left lung apex is well aerated. IMPRESSION: 1. No acute radiographic abnormality of the left shoulder or humerus. 2. Ossific densities along the lateral margin of the humeral head whichcould relate to calcific tendinosis and/or an old injury in theappropriate clinical setting. Referred By: Interpreted By: Sampson Fatima MD, 05/29/2023 2:15 AM Stacy Ny MD GENERAL IMAGING Final Result * XR SHOULDER LT 3V (05/29/2023 2:13 AM CDT) Anatomical Region Laterality Modality Shoulder Radiographic Evelyn ging 05/29/2023 2:15 AM CDT Impressions 05/29/2023 2:17 AM CDT IMPRESSION: 1. ??No acute radiographic abnormality of the left shoulder or humerus. 2. ??Ossific densities along the lateral margin of the humeral head which could relate to calcific tendinosis and/or an old injury in the appropriate clinical setting. Referred By: ?? Interpreted By: Sampson Fatima MD, 05/29/2023 2:15 AM Narrative 05/29/2023 2:17 AM CDT EXAMINATION: XR HUMERUS LT MIN 2V, XR SHOULDER LT 3V, 05/29/2023 2:15 AM TECHNIQUE: AP, AP external rotation, and scapular Y radiographs of the left shoulder. ??AP and lateral radiographs of the left humerus. HISTORY: Left shoulder pain. ??Fall 2-3 months ago COMPARISON: None available FINDINGS: The humerus appears intact. ??Shoulder and elbow appear well aligned. ??No acute fracture or destructive process of the visualized osseous structures. ??Rounded ossific densities near the humeral head which could relate to an old injury and/or calcific tendinosis in the appropriate clinical setting. ??The left lung apex is well aerated. Procedure Note Sampson Fatima MD - 05/29/2023 EXAMINATION: XR HUMERUS LT MIN 2V, XR SHOULDER LT 3V, 05/29/2023 2:15 AM TECHNIQUE: AP, AP external rotation, and scapular Y radiographs of theleft shoulder. AP and lateral radiographs of the left humerus. HISTORY: Left shoulder pain. Fall 2-3 months ago COMPARISON: None available FINDINGS: The humerus appears intact. Shoulder and elbow appear wellaligned. No acute fracture or destructive process of the visualizedosseous structures. Rounded ossific densities near the humeral head whichcould relate to an old injury and/or calcific tendinosis in theappropriate clinical setting. The left lung apex is well aerated. IMPRESSION: 1. No acute radiographic abnormality of the left shoulder or humerus. 2. Ossific densities along the lateral margin of the humeral head whichcould relate to calcific tendinosis and/or an old injury in theappropriate clinical setting. Referred By: Interpreted By: Sampson Fatima MD, 05/29/2023 2:15 AM Stacy Ny MD GENERAL IMAGING Final Result documented in this encounter Visit Diagnoses Diagnosis Shoulder pain- Primary Pain in joint, shoulder region Adhesive capsulitis of left shoulder Adhesive capsulitis of shoulder documented in this encounter Administered Medications Inactive Administered Medications - up to 3 most recent administrations Medication Order MAR Action Action Date Dose Rate Site HYDROcodone-acetaminophen (NORCO) 5-325 MG tablet 1 tablet 1 tablet, Oral, Once, 1 dose, On Blessing 05/29/23 at 0200, Maximum dose of acetaminophen is 4000 mg from all sources in 24 hours. Given 05/29/2023 2:13 AM CDT 1 tablet HYDROcodone-acetaminophen (NORCO) 5-325 MG tablet 1 tablet 1 tablet, Oral, Every 6 hours PRN, Moderate pain (Scale 4 - 7), 2 doses, Starting on Blessing 05/29/23 at 0225, Until Blessing 05/29/23 at 0442, MEDICATION FOR TAKE HOME Given 05/29/2023 2:32 AM CDT 1 tablet lidocaine 4 % patch 1 patch 1 patch, Transdermal, Administer over 12 Hours, Once, 1 dose, On Blessing 05/29/23 at 0200 Patch Applied 05/29/2023 2:13 AM CDT 1 patch Left Shoulder documented in this encounter Active and Recently Administered Medications Times are shown in CDT. Scheduled Medication Order 05/27/2023 05/28/2023 05/29/2023 HYDROcodone-acetaminophen (NORCO) 5-325 MG tablet 1 tablet (COMPLETED) 1 tablet, Oral, Once, 1 dose, On Blessing 05/29/23 at 0200, Maximum dose of acetaminophen is 4000 mg from all sources in 24 hours. 0213 (Given - Provid er: Shawn Castrejon RN) lidocaine 4 % patch 1 patch 1 patch, Transdermal, Administer over 12 Hours, Once, 1 dose, On Blessing 05/29/23 at 0200 0213 (Patch Applied - Provider: Shawn Castrejon RN)0237 (Due: Patch Removed - Provider: Automatic Discharge Provider - Comment: Time automatically adjusted from order being discontinued) PRN Medication Order 05/27/2023 05/28/2023 05/29/2023 HYDROcodone-acetaminophen (NORCO) 5-325 MG tablet 1 tablet 1 tablet, Oral, Every 6 hours PRN, Moderate pain (Scale 4 - 7), 2 doses, Starting on Blessing 05/29/23 at 0225, Until Blessing 05/29/23 at 0442, MEDICATION FOR TAKE HOME 0232 (Given - Provid er: Shawn Castrejon RN - Comment: med for take home per MD order) documented in this encounter Additional Health Concerns Assessment Noted Time PHQ-9 Depression Total Score: 5 03/18/19 24 2:22 PM SHIRT MARKER documented as of this encounter Care Teams Explosives Handler Relationship Specialty Start Date End Date Marv Young NP PCP - General NURSE PRACTITIONER ADULT HEALTH 03/11/23 09/14/23 documented as of this encounter
--- OUTSIDE RECORDS SUMMARY | 2024-02-12 03:31 | XMS_ITS | Encounter Summary ---
Author Organization [facility] Address [facility] [place] [address] [place] [address] Care Team Providers Care Supervisor Shipfitters Name Role Phone Marv Young NP Primary Care Provide r Encounter Details Date Type Department Care Team (Latest Contact Info) Description 06/17/2023 Travel Social History Tobacco Use Types Packs/Day [...] st Contact Info) Description 02/12/2024 9:00 AM FLAT GRINDER OPERATOR Appointment [facility] [address] [place] [address] [place] [address] [place] [address] [place] [address] [place] [address] 02/12/2024 2:00 PM FLAT GRINDER OPERATOR Appointment [facility] MRI [address] [place] [address] [place] [address] [place] [address] 02/16/2024 9:00 AM FLAT GRINDER OPERATOR Appointment [facility] [address] [place] [address] [place] [address] [place] [address] [place] [address] [place] [address] 02/19/2024 8:45 AM FLAT GRINDER OPERATOR Appointment [facility] [address] [place] [address] [place] [address] [place] [address] [place] [address] [place] [address] 02/19/2024 9:00 AM FLAT GRINDER OPERATOR Appointment [facility] [address] [place] [address] [place] [address] [place] [address] [place] [address] [place] [address] 02/23/2024 9:00 AM FLAT GRINDER OPERATOR Appointment [facility] [address] [place] [address] [place] [address] [place] [address] [place] [address] [place] [address] 02/24/2024 1:30 PM FLAT GRINDER OPERATOR Appointment [facility] [address] [place] [address] [place] [address] [place] [address] 02/26/2024 9:00 AM FLAT GRINDER OPERATOR Appointment [facility]hab [address] [place] [address] [place] [address] [place] [address] [place] [address] [place] [address] 02/26/2024 9:15 AM FLAT GRINDER OPERATOR Appointment [facility] [address] [place] [address] [place] [address] [place] [address] [place] [address] [place] [address] 03/01/2024 9:00 AM FLAT GRINDER OPERATOR Appointment [facility] [address] [place] [address] [place] [address] [place] [address] [place] [address] [place] [address] Lorene Branch, RESEARCH TEST ENGINE EVALUATOR 03/02/2024 12:27 PM FLAT GRINDER OPERATOR Hospital Encounter [facility] Surgery [address] [place] [address] [place] [address] [place] [address] 03/02/2024 12:27 PM FLAT GRINDER OPERATOR - 03/02/2024 1:07 PM FLAT GRINDER OPERATOR Surgery [address] [address] [place] [address] [place] [address] MANIPULATION SHOULDER 03/05/2024 9:00 AM FLAT GRINDER OPERATOR Appointment [facility] Out[facility]hab [address] [place] [address] [place] [address] [place] [address] Lorene Branch, RESEARCH TEST ENGINE EVALUATOR 03/08/2024 9:00 AM FLAT GRINDER OPERATOR Appointment [facility] Out[facility]hab [address] [place] [address] [place] [address] [place] [address] Lorene Branch, RESEARCH TEST ENGINE EVALUATOR 03/11/2024 9:15 AM FLAT GRINDER OPERATOR Appointment [facility] [address] [place] [address] [place] [address] [place] [address] Lorene Branch, RESEARCH TEST ENGINE EVALUATOR 03/15/2024 9:00 AM FLAT GRINDER OPERATOR Appointment [facility] [address] [place] [address] [place] [address] [place] [address] Lorene Branch, RESEARCH TEST ENGINE EVALUATOR 03/18/2024 9:15 AM FLAT GRINDER OPERATOR Appointment [facility] [address] [place] [address] [place] [address] [place] [address] Lorene Branch, RESEARCH TEST ENGINE EVALUATOR 03/22/2024 9:00 AM FLAT GRINDER OPERATOR Appointment [facility] [address] [place] [address] [place] [address] [place] [address] Lorene Branch, RESEARCH TEST ENGINE EVALUATOR 03/25/2024 9:15 AM FLAT GRINDER OPERATOR Appointment [facility] [address] [place] [address] [place] [address] [place] [address] Lorene Branch, RESEARCH TEST ENGINE EVALUATOR 04/21/2024 11:20 AM FLAT GRINDER OPERATOR [facility] - [place] [address] [place] [address] [place] [address] [place] [address] Scheduled Procedures Name Priority Associated Diagnoses Date/Ti me MANIPULATION SHOULDER Adhesive capsulitis of left shoulder 03/02/2024 12:27 PM FLAT GRINDER OPERATOR INJECTION JOINT Adhesive capsulitis of left shoulder 03/02/2024 12:27 PM FLAT GRINDER OPERATOR documented as of this encounter Visit Diagnoses Not on filedocumented in this encounter Additional Health Concerns Assessment Noted Time PHQ-9 Depression Total Score: 5 03/18/19 2:22 PM FLAT GRINDER OPERATOR documented as of this encounter Care Teams Supervisor Shipfitters Relationship Specialty Start Date End Date Marv Young NP PCP - General NURSE PRACTITIONER ADULT HEALTH 03/11/23 09/14/23 documented as of this encounter
--- OUTSIDE RECORDS SUMMARY | 2024-02-12 03:31 | XMS_ITS | Encounter Summary ---
Author Organization [facility] Address [facility] [place] [address] [place] [address] Care Team Providers Care Welt Treater Name Role Phone Marv Young NP Primary Care Provide r Encounter Details Date Type Department Care Team (Late st Contact Info) Description 06/09/2023 Care Management [facility] Family [facility] Internal Medicine [address] [address] Marv Young, GRCAE [address] [facility] [place] [address] Social History Tobacco Use Types [...] Progress Notes * Marv Young NP - 06/09/2023 10:57 AM CDT Patient needs refill of her Tramadol. Patient will be evaluated on 4/23 by me in clinic. documented in this encounter Plan of Treatment Upcoming Encounters Date Type Department Care Team (Late st Contact Info) Description 02/12/2024 9:00 AM MANDARIN TEACHER Appointment [facility] [address] [place] [address] [place] [address] [place] [address] [place] [address] [place] [address] 02/12/2024 2:00 PM MANDARIN TEACHER Appointment [facility] [address] [place] [address] [place] [address] [place] [address] 02/16/2024 9:00 AM MANDARIN TEACHER Appointment [facility] [address] [place] [address] [place] [address] [place] [address] [place] [address] [place] [address] 02/19/2024 8:45 AM MANDARIN TEACHER Appointment [facility] [address] [place] [address] [place] [address] [place] [address] [place] [address] [place] [address] 02/19/2024 9:00 AM MANDARIN TEACHER Appointment [facility] [address] [place] [address] [place] [address] [place] [address] [place] [address] [place] [address] 02/23/2024 9:00 AM MANDARIN TEACHER Appointment [facility] [address] [place] [address] [place] [address] [place] [address] [place] [address] [place] [address] 02/24/2024 1:30 PM MANDARIN TEACHER Appointment [address] [address] Ihsan Logan, [address] [place] [address] 02/26/2024 9:00 AM MANDARIN TEACHER Appointment [facility] [address] [place] [address] [place] [address] [place] [address] [place] [address] [place] [address] 02/26/2024 9:15 AM MANDARIN TEACHER Appointment [facility] [address] [place] [address] [place] [address] [place] [address] [place] [address] [place] [address] 03/01/2024 9:00 AM MANDARIN TEACHER Appointment [facility] [address] [place] [address] [place] [address] [place] [address] [place] [address] [place], [place] [id number] Lorene Barnch, BOOM TENDER 03/02/2024 12:27 PM MANDARIN TEACHER Hospital Encounter [address] [address] [place] [address] [place] [address] 03/02/2024 12:27 PM MANDARIN TEACHER - 03/02/2024 1:07 PM MANDARIN TEACHER Surgery [facility] Surgery [address] [place] [address] [place] [address] [place] [address] MANIPULATION SHOULDER 03/05/2024 9:00 AM MANDARIN TEACHER Appointment [facility] [address] [place] [address] [place] [address] [place] [address] Lorene Branch, BOOM TENDER 03/08/2024 9:00 AM MANDARIN TEACHER Appointment [facility] [address] [place] [address] [place] [address] [place] [address] Lorene Branch, BOOM TENDER 03/11/2024 9:15 AM MANDARIN TEACHER Appointment [facility] [address] [place] [address] [place] [address] [place] [address] Lorene Branch, BOOM TENDER 03/15/2024 9:00 AM MANDARIN TEACHER Appointment [facility] [address] [place] [address] [place] [address] [place] [address] Lorene Branch, BOOM TENDER 03/18/2024 9:15 AM MANDARIN TEACHER Appointment [facility] [address] [place] [address] [place] [address] [place] [address] Lorene Branch, BOOM TENDER 03/22/2024 9:00 AM MANDARIN TEACHER Appointment [facility] [address] [place] [address] [place] [address] [place] [address] Lorene Branch, BOOM TENDER 03/25/2024 9:15 AM MANDARIN TEACHER Appointment [facility] [address] [place], [place] [address] [place] [address] [place], [place] [address] Lorene Branch, BOOM TENDER 04/21/2024 11:20 AM MANDARIN TEACHER [facility] [address] [place] [address] [place] [address] [place] [address] Scheduled Procedures Name Priority Associated Diagnoses Date/Ti me MANIPULATION SHOULDER Adhesive capsulitis of left shoulder 03/02/2024 12:27 PM MANDARIN TEACHER INJECTION JOINT Adhesive capsulitis of left shoulder 03/02/2024 12:27 PM MANDARIN TEACHER documented as of this encounter Visit Diagnoses Diagnosis Tendinopathy of left biceps tendon Muscle strain of left upper arm, sequela Adhesive capsulitis of left shoulder Adhesive capsulitis of shoulder documented in this encounter Additional Health Concerns Assessment Noted Time PHQ-9 Depression Total Score: 5 03/18/19 24 2:22 PM MANDARIN TEACHER documented as of this encounter Care Teams Welt Treater Relationship Specialty Start Date End Date Marv Young NP PCP - General NURSE PRACTITIONER ADULT HEALTH 03/11/23 09/14/23 documented as of this encounter
--- OUTSIDE RECORDS SUMMARY | 2024-02-12 03:31 | XMS_ITS | Encounter Summary ---
Author Organization [facility] Address [facility] [place] [address] [place] [address] Care Team Providers Care Hand Filer Balance Wheel Name Role Phone Marv Young HOSPITAL CARRIER Primary Care Provide r Reason for Visit * Reason Onset Date Comments Joint Pain 06/11/2023 Request Note 06/11/2023 Encounter Details Date Type Department Care Team (Late st Contact Info) Description 06/11/2023 Telephone [facility] Family & Internal Medicine [facility] [id number] [place] [phone] Marv Young, HOSPITAL CARRIER [address] [place] [address] [place] [address] Joint Pain; Request Note Social History Tobacco Use Types Packs/Day Years [...] Progress Notes * Sanjuana Choi MA - 06/20/2023 7:14 AM CDT Advise? * Susana Nunez MA - 06/19/2023 2:50 PM CDT Please advise * Sanjuana Choi MA - 06/17/2023 7:13 AM CDT FYI * Clarice Crooks RN - 06/12/2023 9:43 AM CDT Please review-ok for work note?? * Clarice Crooks RN - 06/11/2023 11:09 AM CDT Please see note below * Rand Galvez - 06/11/2023 10:57 AM CDT Oumou nath states she went back to work on Friday. 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 She said she is hurting so bad, taking pain pills and vomiting from the pain, states she can not focus, shaking. Having trouble doing her job due to arm hurting so bad. Work tells her she can go home but will need a new note. Oumou states they do not have light duty. Informed Oumou Newton is not in the office today. Oumou said she would need a note before she can leave so it is not counted against her. Has an appointment with Dr. Logan on 07/07/2023 Fax number for work to send note: [phone] documented in this encounter Plan of Treatment Upcoming Encounters Date Type Department Care Team (Late st Contact Info) Description 02/12/2024 9:00 AM DESIGN MANAGER Appointment [facility] [address] [place] [address] [place] [address] [place] [address] [place] [address] [place] [address] 02/12/2024 2:00 PM DESIGN MANAGER Appointment [facility] [place] [address] [place] [address] [place] [address] [place] [address] 02/16/2024 9:00 AM DESIGN MANAGER Appointment [facility] [address] [place] [address] [place] [address] [place] [address] [place] [address] [place] [address] 02/19/2024 8:45 AM DESIGN MANAGER Appointment [facility] [address] [place] [address] [place] [address] [place] [address] [place] [address] [place] [address] 02/19/2024 9:00 AM DESIGN MANAGER Appointment [facility] [address] [place] [address] [place] [address] [place] [address] [place] [address] [place] [address] 02/23/2024 9:00 AM DESIGN MANAGER Appointment [facility] [address] [place] [address] [place] [address] [place] [address] [place] [address] [place] [address] 02/24/2024 1:30 PM DESIGN MANAGER Appointment [facility] MRI [address] [place] [address] [place] [address] [place] [address] 02/26/2024 9:00 AM DESIGN MANAGER Appointment [facility] [address] [place] [address] [place] [address] [place] [address] [place] [address] [place] [address] 02/26/2024 9:15 AM DESIGN MANAGER Appointment [facility] [address] [place] [address] [place] [address] [place] [address] [place] [address] [place] [address] 03/01/2024 9:00 AM DESIGN MANAGER Appointment [facility] [address] [place] [address] [place] [address] [place] [address] [place] [address] [place] [address] Lorene Branch, COMPUTER ASSISTANT 03/02/2024 12:27 PM DESIGN MANAGER Hospital Encounter [facility] Surgery [address] [place] [address] [place] [address] [place] [address] 03/02/2024 12:27 PM DESIGN MANAGER - 03/02/2024 1:07 PM DESIGN MANAGER Surgery [facility] Surgery [address] [place] [address] [place] [address] [place] [address] MANIPULATION SHOULDER 03/05/2024 9:00 AM DESIGN MANAGER Appointment [facility] [address] [place] [address] [place] [address] [place] [address] Lorene Branch, COMPUTER ASSISTANT 03/08/2024 9:00 AM DESIGN MANAGER Appointment [facility] [address] [place] [address] [place] [address] [place] [address] Lornee Branch, COMPUTER ASSISTANT 03/11/2024 9:15 AM DESIGN MANAGER Appointment [facility] [address] [place] [address] [place] [address] [place] [address] Lorene Branch, COMPUTER ASSISTANT 03/15/2024 9:00 AM DESIGN MANAGER Appointment [facility] [address] [place] [address] [place] [address] [place] [address] Lorene Branch, COMPUTER ASSISTANT 03/18/2024 9:15 AM DESIGN MANAGER Appointment [facility] [address] [place] [address] [place] [address] [place] [address] Lorene Branch, COMPUTER ASSISTANT 03/22/2024 9:00 AM DESIGN MANAGER Appointment [facility] [address] [place] [address] [place] [address] [place] [address] Lorene Branch, COMPUTER ASSISTANT 03/25/2024 9:15 AM DESIGN MANAGER Appointment [facility] [address] [place] [address] [place] [address] [place], [place] [address] Lorene Branch, COMPUTER ASSISTANT 04/21/2024 11:20 AM DESIGN MANAGER Office Visit [facility] Family & Internal Medicine - [place] [address] [place] [address] [place] [address] [place] [address] Scheduled Procedures Name Priority Associated Diagnoses Date/Ti me MANIPULATION SHOULDER Adhesive capsulitis of left shoulder 03/02/2024 12:27 PM DESIGN MANAGER INJECTION JOINT Adhesive capsulitis of left shoulder 03/02/2024 12:27 PM DESIGN MANAGER documented as of this encounter Visit Diagnoses Not on filedocumented in this encounter Additional Health Concerns Assessment Noted Time PHQ-9 Depression Total Score: 5 03/18/19 24 2:22 PM DESIGN MANAGER documented as of this encounter Care Teams Hand Filer Balance Wheel Relationship Specialty Start Date End Date Marv Young NP PCP - General NURSE PRACTITIONER ADULT HEALTH 03/11/23 09/14/23 documented as of this encounter
--- OUTSIDE RECORDS SUMMARY | 2024-02-12 03:31 | XMS_ITS | Encounter Summary ---
Author Organization [facility] Address [facility] [place] [address] [place] [address] Care Team Providers Care Gang Punch Operator Name Role Phone Marv Young NP Primary Care Provide r Encounter Details Date Type Department Care Team (Latest Contact Info) Description 06/03/2023 Scan HEALTH INFO SRVCS Scanned, Doc Med Group Social History Tobacco Use Types Packs/Day Years [...] st Contact Info) Description 02/12/2024 9:00 AM PERSONAL ASSISTANT Appointment [facility] Outpatient Rehab [address] [place], [place] [id number] [place] [address] [place], [place] [address] [place] [address] [place] [address] 02/12/2024 2:00 PM PERSONAL ASSISTANT Appointment [facility] MRI [address] [place] [address] [place] [address] [place] [address] 02/16/2024 9:00 AM PERSONAL ASSISTANT Appointment [facility] Outpatient Rehab [address] [place] [address] [place] [address] [place] [address] [place] [address] [place] [address] 02/19/2024 8:45 AM PERSONAL ASSISTANT Appointment [facility] Outpatient Rehab [address] [place] [address] [place] [address] [place] [address] [place] [address] [place] [address] 02/19/2024 9:00 AM PERSONAL ASSISTANT Appointment [facility] Outpatient Rehab [address] [place] [address] [place] [address] [place] [address] [place] [address] [place] [address] 02/23/2024 9:00 AM PERSONAL ASSISTANT Appointment [facility] Outpatient Rehab [address] [place] [address] [place] [address] [place] [address] [place] [address] [place] [address] 02/24/2024 1:30 PM PERSONAL ASSISTANT Appointment [facility] [address] [place] [address] [place] [address] [place] [address] 02/26/2024 9:00 AM PERSONAL ASSISTANT Appointment [facility] Outpatient Rehab [address] [place] [address] [place] [address] [place] [address] [place] [address] [place] [address] 02/26/2024 9:15 AM PERSONAL ASSISTANT Appointment [facility] Outpatient Rehab [address] [place] [address] [place] [address] [place] [address] [place] [address] [place] [address] 03/01/2024 9:00 AM PERSONAL ASSISTANT Appointment [facility] Outpatient Rehab [address] [place] [address] [place] [address] [place] [address] [place] [address] [place] [address] Lorene Branch, AUDIO VISUAL PRODUCTION SPECIALIST 03/02/2024 12:27 PM PERSONAL ASSISTANT Hospital Encounter [facility] [id number] [place] [address] [place] [address] [place] [address] 03/02/2024 12:27 PM PERSONAL ASSISTANT - 03/02/2024 1:07 PM PERSONAL ASSISTANT Surgery [address] [address] [place] [address] [place] [address] MANIPULATION SHOULDER 03/05/2024 9:00 AM PERSONAL ASSISTANT Appointment [facility] Outpatient Rehab [address] [place] [address] [place] [address] [place] [address] Lorene Branch, AUDIO VISUAL PRODUCTION SPECIALIST 03/08/2024 9:00 AM PERSONAL ASSISTANT Appointment [facility] Outpatient Rehab [address] [place] [address] [place] [address] [place] [address] Lorene Branch, AUDIO VISUAL PRODUCTION SPECIALIST 03/11/2024 9:15 AM PERSONAL ASSISTANT Appointment [facility] Outpatient Rehab [address] [place] [address] [place] [address] [place] [address] Lorene Branch, AUDIO VISUAL PRODUCTION SPECIALIST 03/15/2024 9:00 AM PERSONAL ASSISTANT Appointment [facility] Outpatient Rehab [address] [place] [address] [place] [address] [place] [address] Lorene Branch, AUDIO VISUAL PRODUCTION SPECIALIST 03/18/2024 9:15 AM PERSONAL ASSISTANT Appointment [facility] Outpatient Rehab [address] [place] [address] [place] [address] [place] [address] Lorene Branch, AUDIO VISUAL PRODUCTION SPECIALIST 03/22/2024 9:00 AM PERSONAL ASSISTANT Appointment [facility] Outpatient Rehab [address] [place] [address] [place] [address] [place] [address] Lorene Branch, AUDIO VISUAL PRODUCTION SPECIALIST 03/25/2024 9:15 AM PERSONAL ASSISTANT Appointment [facility] Outpatient Rehab [address] [place] [address] [place] [address] [place] [address] Lorene Branch, AUDIO VISUAL PRODUCTION SPECIALIST 04/21/2024 11:20 AM PERSONAL ASSISTANT Office Visit [facility] Medical Group Family & Internal Medicine [address] [phone] [place] [address] [place] [address] Scheduled Procedures Name Priority Associated Diagnoses Date/Ti me MANIPULATION SHOULDER Adhesive capsulitis of left shoulder 03/02/2024 12:27 PM PERSONAL ASSISTANT INJECTION JOINT Adhesive capsulitis of left shoulder 03/02/2024 12:27 PM PERSONAL ASSISTANT documented as of this encounter Visit Diagnoses Not on filedocumented in this encounter Additional Health Concerns Assessment Noted Time PHQ-9 Depression Total Score: 5 03/18/19 24 2:22 PM PERSONAL ASSISTANT documented as of this encounter Care Teams Gang Punch Operator Relationship Specialty Start Date End Date Marv Young NP PCP - General NURSE PRACTITIONER ADULT HEALTH 03/11/23 09/14/23 documented as of this encounter
--- OUTSIDE RECORDS SUMMARY | 2024-02-12 03:31 | XMS_ITS | Encounter Summary ---
Author Organization [facility] Address [facility] [place] [address] [place] [address] Care Team Providers Care Liner Inserter Name Role Phone Marv Young NP Primary Care Provide r Encounter Details Date Type Department Care Team (Latest Contact Info) Description 05/16/2023 Travel Social History Tobacco Use Types Packs/Day [...] st Contact Info) Description 02/12/2024 9:00 AM CLIENT DEVELOPMENT CONSULTANT Appointment [facility] Outpatient Rehab [address] [place] [address] [place] [address] [place] [address] [place] [address] [place] [address] 02/12/2024 2:00 PM CLIENT DEVELOPMENT CONSULTANT Appointment [facility] [place] [address] [place] [address] [place] [address] [place] [address] 02/16/2024 9:00 AM CLIENT DEVELOPMENT CONSULTANT Appointment [facility] Outpatient Rehab [address] [place] [address] [place] [address] [place] [address] [place] [address] [place] [address] 02/19/2024 8:45 AM CLIENT DEVELOPMENT CONSULTANT Appointment [facility] Outpatient Rehab [address] [place] [address] [place] [address] [place] [address] [place] [address] [place] [address] 02/19/2024 9:00 AM CLIENT DEVELOPMENT CONSULTANT Appointment [facility] Outpatient Rehab [address] [place] [address] [place] [address] [place] [address] [place] [address] [place] [address] 02/23/2024 9:00 AM CLIENT DEVELOPMENT CONSULTANT Appointment [facility] Outpatient Rehab [address] [place] [address] [place] [address] [place] [address] [place] [address] [place] [address] 02/24/2024 1:30 PM CLIENT DEVELOPMENT CONSULTANT Appointment [facility] [address] [place] [address] [place] [address] [place] [address] 02/26/2024 9:00 AM CLIENT DEVELOPMENT CONSULTANT Appointment [facility] Outpatient Rehab [address] [place] [address] [place] [address] [place] [address] [place] [address] [place] [address] 02/26/2024 9:15 AM CLIENT DEVELOPMENT CONSULTANT Appointment [facility] Outpatient Rehab [address] [place] [address] [place] [address] [place] [address] [place] [address] [place] [address] 03/01/2024 9:00 AM CLIENT DEVELOPMENT CONSULTANT Appointment [facility] Outpatient Rehab [address] [place] [address] [place] [address] [place] [address] [place] [address] [place] [address] Lorene Branch, DOG BOARDER 03/02/2024 12:27 PM CLIENT DEVELOPMENT CONSULTANT Hospital Encounter [facility] Surgery [id number] [place] [address] [place] [address] [place] [address] 03/02/2024 12:27 PM CLIENT DEVELOPMENT CONSULTANT - 03/02/2024 1:07 PM CLIENT DEVELOPMENT CONSULTANT Surgery [address] [address] [place] [address] [place] [address] MANIPULATION SHOULDER 03/05/2024 9:00 AM CLIENT DEVELOPMENT CONSULTANT Appointment [facility] Outpatient Rehab [address] [place] [address] [place] [address] [place] [address] Lorene Branch, DOG BOARDER 03/08/2024 9:00 AM CLIENT DEVELOPMENT CONSULTANT Appointment [facility] Outpatient Rehab [address] [place] [address] [place] [address] [place] [address] Lorene Branch, DOG BOARDER 03/11/2024 9:15 AM CLIENT DEVELOPMENT CONSULTANT Appointment [facility] Outpatient Rehab [address] [place] [address] [place] [address] [place] [address] Lorene Branch, DOG BOARDER 03/15/2024 9:00 AM CLIENT DEVELOPMENT CONSULTANT Appointment [facility] [address] [place] [address] [place] [address] [place] [address] Lorene Branch, DOG BOARDER 03/18/2024 9:15 AM CLIENT DEVELOPMENT CONSULTANT Appointment [facility] [address] [place] [address] [place] [address] [place] [address] Lorene Branch, DOG BOARDER 03/22/2024 9:00 AM CLIENT DEVELOPMENT CONSULTANT Appointment [facility] [address] [place] [address] [place] [address] [place] [address] Lorene Branch, DOG BOARDER 03/25/2024 9:15 AM CLIENT DEVELOPMENT CONSULTANT Appointment [facility] [address] [place] [address] [place] [address] [place] [address] Lorene Branch, DOG BOARDER 04/21/2024 11:20 AM CLIENT DEVELOPMENT CONSULTANT Office Visit [facility] Family & Internal Medicine - [place] [address] [place] [address] [place] [address] [place] [address] Scheduled Procedures Name Priority Associated Diagnoses Date/Ti me MANIPULATION SHOULDER Adhesive capsulitis of left shoulder 03/02/2024 12:27 PM CLIENT DEVELOPMENT CONSULTANT INJECTION JOINT Adhesive capsulitis of left shoulder 03/02/2024 12:27 PM CLIENT DEVELOPMENT CONSULTANT documented as of this encounter Visit Diagnoses Not on filedocumented in this encounter Additional Health Concerns Assessment Noted Time PHQ-9 Depression Total Score: 5 03/18/19 2:22 PM CLIENT DEVELOPMENT CONSULTANT documented as of this encounter Care Teams Liner Inserter Relationship Specialty Start Date End Date Marv Young NP PCP - General NURSE PRACTITIONER ADULT HEALTH 03/11/23 09/14/23 documented as of this encounter
--- OUTSIDE RECORDS SUMMARY | 2024-02-12 03:31 | XMS_ITS | Encounter Summary ---
Author Organization [facility] Address [facility] [place] [address] [place] [address] Care Team Providers Care Tanning Consultant Name Role Phone Marv Young OPERATIONS AND INTELLIGENCE ASSISTANT Primary Care Provide r Reason for Visit * Reason Onset Date Comments Medication Request 06/04/2023 FYI Information 06/04/2023 Encounter Details Date Type Department Care Team (Late st Contact Info) Description 06/04/2023 Telephone [facility] Medical Group Family & Internal Medicine [facility] [address] [place] [phone] Marv Young, OPERATIONS AND INTELLIGENCE ASSISTANT [address] [place] [address] [place] [address] Medication Request (); Information Social History Tobacco Use Types Packs/Day Years [...] as of this encounter Progress Notes * Nicolasa Phipps - 06/04/2023 5:06 PM CDT Pt called back after her MRI stated that she was in a lot of pain due to her laying on her arm. Pt stated that her tramadol is not as effective when it comes to her high pain. Asked if Provider couldsend over a stronger pain med. Informed her that provider is out of the office today but will be back tomorrow. Also informed the nurse and the nurse suggested she go to the ER if she's in that much pain and to let them know if she goes that she had an Mri of that arm done. Pt understood. Pt did not say whether or not she was going to the ER. documented in this encounter Plan of Treatment Upcoming Encounters Date Type Department Care Team (Late st Contact Info) Description 02/12/2024 9:00 AM WAREHOUSE GUARD Appointment [facility] [address] [place] [address] [place] [address] [place] [address] [place] [address] [place] [address] 02/12/2024 2:00 PM WAREHOUSE GUARD [facility]ointment [facility] [address] [place] [address] [place] [address] [place] [address] 02/16/2024 9:00 AM WAREHOUSE GUARD Appointment [facility] [address] [place] [address] [place] [address] [place] [address] [place] [address] [place] [address] 02/19/2024 8:45 AM WAREHOUSE GUARD Appointment [facility]hab [address] [place] [address] [place] [address] [place] [address] [place] [address] [place] [address] 02/19/2024 9:00 AM WAREHOUSE GUARD Appointment [facility]hab [address] [place] [address] [place] [address] [place] [address] [place] [address] [place] [address] 02/23/2024 9:00 AM WAREHOUSE GUARD Appointment [facility]hab [address] [place] [address] [place] [address] [place] [address] [place] [address] [place] [address] 02/24/2024 1:30 PM WAREHOUSE GUARD Appointment [facility] MRI [address] [place] [address] [place] [address] [place] [address] 02/26/2024 9:00 AM WAREHOUSE GUARD Appointment [facility] Rehab [address] [place] [address] [place] [address] [place] [address] [place] [address] [place] [address] 02/26/2024 9:15 AM WAREHOUSE GUARD Appointment [facility]hab [address] [place] [address] [place] [address] [place] [address] [place] [address] [place] [address] 03/01/2024 9:00 AM WAREHOUSE GUARD Appointment [facility]hab [address] [place] [address] [place] [address] [place] [address] [place] [address] [place] [address] Lorene Branch, CORRUGATED SHEET MATERIAL SHEETER 03/02/2024 12:27 PM WAREHOUSE GUARD Hospital Encounter [facility] [address] [place] [address] [place] [address] [place] [address] 03/02/2024 12:27 PM WAREHOUSE GUARD - 03/02/2024 1:07 PM WAREHOUSE GUARD Surgery [facility] [address] [place] [address] [place] [address] [place] [address] MANIPULATION SHOULDER 03/05/2024 9:00 AM WAREHOUSE GUARD Appointment [facility] [address] [place] [address] [place] [address] [place] [address] Lorene Branch, CORRUGATED SHEET MATERIAL SHEETER 03/08/2024 9:00 AM WAREHOUSE GUARD Appointment [facility] [address] [place] [address] [place] [address] [place] [address] Lorene Branch, CORRUGATED SHEET MATERIAL SHEETER 03/11/2024 9:15 AM WAREHOUSE GUARD Appointment [facility] [address] [place] [address] [place] [address] [place] [address] Lorene Branch, CORRUGATED SHEET MATERIAL SHEETER 03/15/2024 9:00 AM WAREHOUSE GUARD Appointment [facility] [address] [place] [address] [place] [address] [place] [address] Lorene Branch, CORRUGATED SHEET MATERIAL SHEETER 03/18/2024 9:15 AM WAREHOUSE GUARD Appointment [facility] [address] [place] [address] [place] [address] [place] [address] Lornee Branch, CORRUGATED SHEET MATERIAL SHEETER 03/22/2024 9:00 AM WAREHOUSE GUARD Appointment [facility] [address] [place] [address] [place] [address] [place], [place] [address] Lorene Branch, CORRUGATED SHEET MATERIAL SHEETER 03/25/2024 9:15 AM WAREHOUSE GUARD Appointment [facility] [address] [place] [address] [place] [address] [place] [address] Lorene Brnach, CORRUGATED SHEET MATERIAL SHEETER 04/21/2024 11:20 AM WAREHOUSE GUARD Office Visit [facility] Medical Group Family & Internal Medicine [facility] [address] [place] [phone] [place] [address] [place] [address] Scheduled Procedures Name Priority Associated Diagnoses Date/Ti me MANIPULATION SHOULDER Adhesive capsulitis of left shoulder 03/02/2024 12:27 PM WAREHOUSE GUARD INJECTION JOINT Adhesive capsulitis of left shoulder 03/02/2024 12:27 PM WAREHOUSE GUARD documented as of this encounter Visit Diagnoses Not on filedocumented in this encounter Additional Health Concerns Assessment Noted Time PHQ-9 Depression Total Score: 5 03/18/19 2:22 PM WAREHOUSE GUARD documented as of this encounter Care Teams Tanning Consultant Relationship Specialty Start Date End Date Marv Young NP PCP - General NURSE PRACTITIONER ADULT HEALTH 03/11/23 09/14/23 documented as of this encounter
--- OUTSIDE RECORDS SUMMARY | 2024-02-12 03:31 | XMS_ITS | Encounter Summary ---
Author Organization [facility] Address [facility] [place], [place] [address] [place] [address] Care Team Providers Care Pesticide Applicator Name Role Phone Marv Young NP Primary Care Provide r Brennon Flores MD Primary Care Provider [phone] Holger Soriano Primary Care Provider [phone] Reason for Visit * Reason Onset Date Comments Request Note (Return To Work) 06/05/2023 Encounter Details Date Type Department Care Team (Late st Contact Info) Description 06/05/2023 Handup Message Enc [facility] Medical [facility] Family & Internal Medicine [address] [phone] [facility] Provider left arm pain Social History Tobacco Use Types Packs/Day Years [...] Progress Notes * Clarice Crooks RN - 06/09/2023 10:42 AM CDT Note written for return to work with NO restrictions. * Sanjuana Choi MA - 06/05/2023 3:01 PM CDT Advise? * Clarice Crooks RN - 06/05/2023 2:07 PM CDT Please note fax #. * Rand Galvez - 06/05/2023 12:11 PM CDT [employer] calling asking to see if [employer] is going to allow her to go back to work or if she needs to be off. She said her employer is calling her as they are working on the schedule. [employer]'s my chart is not working so please call her [phone] * Clarice Crooks RN - 06/05/2023 9:07 AM CDT Just making sure you are aware. I will send her work a letter today, she can return to work full duty? documented in this encounter Plan of Treatment Upcoming Encounters Date Type Department Care Team (Late st Contact Info) Description 02/12/2024 9:00 AM DARK ROOM ATTENDANT Appointment [facility] Outpatient Rehab [address] [place] [address] [place] [address] [place], [place] [address] [place] [address] [place] [address] 02/12/2024 2:00 PM DARK ROOM ATTENDANT Appointment [facility] MRI [address] [place] [address] [place] [address] [place] [address] 02/16/2024 9:00 AM DARK ROOM ATTENDANT Appointment [facility] Outpatient Rehab [address] [place] [address] [place] [address] [place] [address] [place] [address] [place] [address] 02/19/2024 8:45 AM DARK ROOM ATTENDANT Appointment [facility] Outpatient Rehab [address] [place] [address] [place] [address] [place] [address] [place] [address] [place] [address] 02/19/2024 9:00 AM DARK ROOM ATTENDANT Appointment [facility] Outpatient Rehab [address] [place] [address] [place] [address] [place] [address] [place] [address] [place] [address] 02/23/2024 9:00 AM DARK ROOM ATTENDANT Appointment [facility] Outpatient Rehab [address] [place] [address] [place] [address] [place] [address] [place] [address] [place] [address] 02/24/2024 1:30 PM DARK ROOM ATTENDANT Appointment [facility] [address] [place] [address] [place] [address] [place] [address] 02/26/2024 9:00 AM DARK ROOM ATTENDANT Appointment [facility] Outpatient Rehab [address] [place] [address] [place] [address] [place] [address] [place] [address] [place] [address] 02/26/2024 9:15 AM DARK ROOM ATTENDANT Appointment [facility] Outpatient Rehab [address] [place] [address] [place] [address] [place] [address] [place] [address] [place] [address] 03/01/2024 9:00 AM DARK ROOM ATTENDANT Appointment [facility] Outpatient Rehab [address] [place] [address] [place] [address] [place] [address] [place] [address] [place] [address] Lorene Branch, PICKING TECH 03/02/2024 12:27 PM DARK ROOM ATTENDANT Hospital Encounter [facility] Surgery [address] [place] [address] [place] [address] [place] [address] 03/02/2024 12:27 PM DARK ROOM ATTENDANT - 03/02/2024 1:07 PM DARK ROOM ATTENDANT Surgery [facility] Surgery [address] [place] [address] [place] [address] [place] [address] MANIPULATION SHOULDER 03/05/2024 9:00 AM DARK ROOM ATTENDANT Appointment [facility] Outpatient Rehab [address] [place] [address] [place] [address] [place] [address] Lorene Branch, PICKING TECH 03/08/2024 9:00 AM DARK ROOM ATTENDANT Appointment [facility] Outpatient Rehab [address] [place] [address] [place] [address] [place] [address] Lorene Branch, PICKING TECH 03/11/2024 9:15 AM DARK ROOM ATTENDANT Appointment [facility] [address] [place] [address] [place] [address] [place] [address] Lorene Branch, PICKING TECH 03/15/2024 9:00 AM DARK ROOM ATTENDANT Appointment [facility] [address] [place] [address] [place] [address] [place] [address] Lorene Branch, PICKING TECH 03/18/2024 9:15 AM DARK ROOM ATTENDANT Appointment [facility] [address] [place] [address] [place] [address] [place] [address] Lorene Branch, PICKING TECH 03/22/2024 9:00 AM DARK ROOM ATTENDANT Appointment [facility] [address] [place] [address] [place] [address] [place] [address] Lorene Branch, PICKING TECH 03/25/2024 9:15 AM DARK ROOM ATTENDANT Appointment [facility] [address] [place] [address] [place] [address] [place] [address] Lorene Branch, PICKING TECH 04/21/2024 11:20 AM DARK ROOM ATTENDANT Office Visit [facility] Medical Group Family & Internal Medicine - [address] [phone] [place] [address] [place] [address] Scheduled Procedures Name Priority Associated Diagnoses Date/Ti me MANIPULATION SHOULDER Adhesive capsulitis of left shoulder 03/02/2024 12:27 PM DARK ROOM ATTENDANT INJECTION JOINT Adhesive capsulitis of left shoulder 03/02/2024 12:27 PM DARK ROOM ATTENDANT documented as of this encounter Visit Diagnoses Not on filedocumented in this encounter Additional Health Concerns Infection Onset Date Last Indicated Resolved Time COVID-19 Rule Out 10/17/2023 10/17/2023 10/17/2023 10:57 AM CDT COVID-19 Rule Out 12/29/2023 12/29/2023 12/29/2023 12:59 PM DARK ROOM ATTENDANT Assessment Noted Time PHQ-9 Depression Total Score: 5 03/18/19 24 2:22 PM DARK ROOM ATTENDANT documented as of this encounter Care Teams Pesticide Applicator Relationship Specialty Start Date End Date Marv Young NP PCP - General NURSE PRACTITIONER ADULT HEALTH 03/11/23 09/14/23 [place] [address] [address] PCP - General INTERNAL MEDICINE 09/15/23 09/15/23 [place] [address] [place] [address] PCP - General Physician Care Giver Medical 09/16/23 documented as of this encounter
--- OUTSIDE RECORDS SUMMARY | 2024-02-12 03:31 | XMS_ITS | Encounter Summary ---
Author Organization [facility] Address [facility] [place] [address] [place] [address] Care Team Providers Care Hatchery Worker Name Role Phone Marv Young NP Primary Care Provide r Encounter Details Date Type Department Care Team (Latest Contact Info) Description 06/04/2023 Travel Social History Tobacco Use Types Packs/Day [...] st Contact Info) Description 02/12/2024 9:[address] SUPERVISOR Appointment [facility] [address] [place] [address] [place] [address] [place] [address] [place] [address] [place] [address] 02/12/2024 2:[address] SUPERVISOR Appointment [facility] [address] [place] [address] [place] [address] [place] [address] 02/16/2024 9:[address] SUPERVISOR Appointment [facility] [address] [place] [address] [place] [address] [place] [address] [place] [address] [place] [address] 02/19/2024 8:[address] SUPERVISOR Appointment [facility] [address] [place] [address] [place] [address] [place] [address] [place] [address] [place] [address] 02/19/2024 9:[address] SUPERVISOR Appointment [facility] [address] [place] [address] [place] [address] [place] [address] [place] [address] [place] [address] 02/23/2024 9:[address] SUPERVISOR Appointment [facility] [address] [place] [address] [place] [address] [place] [address] [place] [address] [place] [address] 02/24/2024 1:[address] SUPERVISOR Appointment [facility] [address] [place] [address] [place] [address] [place] [address] 02/26/2024 9:[address] SUPERVISOR Appointment [facility] [address] [place] [address] [place] [address] [place] [address] [place] [address] [place] [address] 02/26/2024 9:[address] SUPERVISOR Appointment [facility] [address] [place] [address] [place] [address] [place] [address] [place] [address] [place] [address] 03/01/2024 9:[address] SUPERVISOR Appointment [facility] [address] [place] [address] [place] [address] [place] [address] [place] [address] [place] [address] Lorene Branch, REPLENISHMENT SPECIALIST 03/02/2024 12:[address] SUPERVISOR Hospital Encounter [facility] Surgery [address] [place] [address] [place] [address] [place] [address] 03/02/2024 12:[address] SUPERVISOR - 03/02/2024 1:[address] SUPERVISOR Surgery [address] [address] [place] [address] [place] [address] MANIPULATION SHOULDER 03/05/2024 9:[address] SUPERVISOR Appointment [facility] [address] [place] [address] [place] [address] [place] [address] Lorene Branch, REPLENISHMENT SPECIALIST 03/08/2024 9:[address] SUPERVISOR Appointment [facility] [address] [place] [address] [place] [address] [place] [address] Lorene Branch, REPLENISHMENT SPECIALIST 03/11/2024 9:[address] SUPERVISOR Appointment [facility] [address] [place] [address] [place] [address] [place] [address] Lorene Branch, REPLENISHMENT SPECIALIST 03/15/2024 9:[address] SUPERVISOR Appointment [facility] [address] [place] [address] [place] [address] [place] [address] Lorene Branch, REPLENISHMENT SPECIALIST 03/18/2024 9:[address] SUPERVISOR Appointment [facility] [address] [place] [address] [place] [address] [place] [address] Lorene Branch, REPLENISHMENT SPECIALIST 03/22/2024 9:[address] SUPERVISOR Appointment [facility] [address] [place] [address] [place] [address] [place] [address] Lorene Branch, REPLENISHMENT SPECIALIST 03/25/2024 9:[address] SUPERVISOR Appointment [facility] [address] [place] [address] [place] [address] [place] [address] Lorene Branch, REPLENISHMENT SPECIALIST 04/21/2024 11:[address] SUPERVISOR Office Visit [facility] Family [facility] Internal Medicine - [place] [address] [place] [address] [place] [address] [place] [address] Scheduled Procedures Name Priority Associated Diagnoses Date/Ti me MANIPULATION SHOULDER Adhesive capsulitis of left shoulder 03/02/2024 12:[address] SUPERVISOR INJECTION JOINT Adhesive capsulitis of left shoulder 03/02/2024 12:[address] SUPERVISOR documented as of this encounter Visit Diagnoses Not on filedocumented in this encounter Additional Health Concerns Assessment Noted Time PHQ-9 Depression Total Score: 5 03/18/19 2:[address] SUPERVISOR documented as of this encounter Care Teams Hatchery Worker Relationship Specialty Start Date End Date Marv Young NP PCP - General NURSE [facility]ACTITIONER [facility]ULT [facility] 03/11/23 09/14/23 documented as of this encounter
--- OUTSIDE RECORDS SUMMARY | 2024-02-12 03:31 | XMS_ITS | Encounter Summary ---
Author Organization [facility] Address [facility] [place] [address] [place] [address] Care Team Providers Care Siebel Administrator Name Role Phone Marv Quiroga OPERATIONAL REVIEW SERGEANT Primary Care Provide r Reason for Visit * Reason Comments Follow Up Encounter Details Date Type Department Care Team (Late st Contact Info) Description 06/17/2023 2:20 PM CDT Office Visit [facility] Family & Internal Medicine [address] [address] Marv Quiroga, OPERATIONAL REVIEW SERGEANT [address] [place] [address] [place] [address] Follow Up Social History Tobacco Use Types Packs/Day Years [...] Sign Reading Time Taken Comments Blood Pressure 158/87 06/17/2023 1:52 PM CDT Pulse 84 06/17/2023 1:52 PM CDT Temperature 36.7 ??C (98 ??F) 06/17/2023 1:52 PM CDT Respiratory Rate 16 06/17/2023 1:52 PM CDT Oxygen Saturation 97% 06/17/2023 1:52 PM CDT Inhaled Oxygen Concentration - - Weight 85.3 kg (188 lb) 06/17/2023 1:52 PM CDT Height 157.5 cm (5' 2 ) 06/17/2023 1:52 PM CDT Body Mass Index 34.39 06/17/2023 1:52 PM CDT documented in this encounter Progress Notes * Marv Quiroga, OPERATIONAL REVIEW SERGEANT - 06/17/2023 2:20 PM CDT Reason for Visit: Follow Up History of Present Illness: Oumou Middleton is a 47-year-old female patient who comes into clinic today with continued left shoulder and bicep pain. Patient has shoulder in a sling. Patient is scheduled for a MRI on June 18, 2023. She is also scheduled for an evaluation with an orthopedic doctor in June. Patient will need a refill of her Ozempic. A1c will be performed in clinic today. ROS: Review of Systems Constitutional: Negative. HENT: Negative. Eyes: Negative. Respiratory: Negative. Cardiovascular: Negative. Gastrointestinal: Negative. Endocrine: Negative. Genitourinary: Negative. Musculoskeletal: Positive for back pain, joint swelling, myalgias, neck pain and neck stiffness. Left shoulder swelling. Pain located at the supra & infraspinatus Allergic/Immunologic: Negative. Neurological: Negative. Hematological: Negative. Psychiatric/Behavioral: Negative. Medications: Current Outpatient Medications: albuterol sulfate HFA 108 (90 Base) MCG/ACT inhaler, Inhale 2 puffs into the lungs every 4 (four) hours as needed for Wheezing or Shortness of breath., Disp: 18 g, Rfl: 0 ALPRAZolam (XANAX) 0.5 MG tablet, TAKE 1 ORAL TABLET ONCE A DAY FOR ANXIETY ONSET, Disp: , Rfl: ARIPiprazole (ABILIFY) 15 MG tablet, Take 1 tablet (15 mg total) by mouth daily., Disp: 30 tablet, Rfl: 2 cyclobenzaprine (FLEXERIL) 10 MG tablet, Take 1 tablet (10 mg total) by mouth 3 (three) times dailyas needed for Muscle Spasms., Disp: 30 tablet, Rfl: 0 cyclobenzaprine (FLEXERIL) 5 MG tablet, Take 1 tablet (5 mg total) by mouth as needed., Disp: , Rfl: DULoxetine (CYMBALTA) 30 MG capsule, TAKE 1 CAPSULE BY MOUTH 2 TIMES DAILY., Disp: 180 capsule, Rfl: 1 DULoxetine (CYMBALTA) 30 MG capsule, Take 1 capsule (30 mg total) by mouth daily., Disp: , Rfl: estradiol (ESTRACE) 2 MG tablet, Take 1 tablet (2 mg total) by mouth daily., Disp: 28 tablet, Rfl: 2 famotidine (PEPCID) 20 MG tablet, Take 1 tab by mouth every morning., Disp: 90 tablet, Rfl: 1 fluticasone propionate (FLONASE) 50 MCG/ACT nasal spray, 2 sprays by Each Nostril route daily. SHAKE LIQUID, Disp: , Rfl: HYDROcodone-acetaminophen (NORCO) 5-325 MG tablet, Take 1-2 tablets by mouth every 6 (six) hours asneeded for Pain. Indications: Chronic Pain, Disp: 60 tablet, Rfl: 0 ibuprofen (MOTRIN) 600 MG tablet, Take 1 tablet (600 mg total) by mouth every 6 (six) hours as needed., Disp: , Rfl: lidocaine (LIDODERM) 5 %, Place 1 patch onto the skin daily for 30 days. Remove & Discard patchwithin 12 hours or as directed by MD, Disp: 30 patch, Rfl: 0 naproxen (NAPROSYN) 500 MG tablet, Take 1 tablet (500 mg total) by mouth 2 (two) times daily with meals., Disp: 60 tablet, Rfl: 0 predniSONE (DELTASONE) 20 MG tablet, Take 3 tablets for 3 days, then 2 tabs for 3 days, then 1 tab for 3 days, then 1/2 tab for 4 days., Disp: 20 tablet, Rfl: 0 progesterone (PROMETRIUM) 100 MG capsule, take 1 capsule by mouth every day, Disp: 90 capsule, Rfl:1 QUEtiapine (SEROQUEL) 100 MG tablet, TAKE 1 TABLET BY MOUTH NIGHTLY AT BEDTIME., Disp: 90 tablet, Rfl: 0 semaglutide (OZEMPIC) 2 mg/dose injection (PEN), Inject 2 mg into the skin once a week., Disp: 9 mL, Rfl: 1 SUMAtriptan (IMITREX) 25 MG tablet, Take 1 tablet (25 mg total) by mouth daily as needed for Migraine. Max of 8 tablets (200 mg) in a 24 hour period., Disp: 30 tablet, Rfl: 2 traMADol (ULTRAM) 50 MG tablet, Take 1 tablet (50 mg total) by mouth every 6 (six) hours as needed for Pain. Indications: Acute Pain < 7 Day Supply, Disp: 28 tablet, Rfl: 0 traZODone (DESYREL) 100 MG tablet, TAKE 1 TABLET (100 MG TOTAL) BY MOUTH NIGHTLY AT BEDTIME FOR 30 DAYS., Disp: 90 tablet, Rfl: 0 Allergies Allergen Reactions Parada Anaphylaxis Iodine Rash, Hives and Other (see comment) Reaction: Hives, Iodinated Contrast Media Unknown Itching Lidocaine Hives Ranitidine Unknown Risperidone Other (see comment) Reaction: OTHER REACTION Past Medical History: Diagnosis Date ADHD Asthma ([facility]) COPD (chronic obstructive pulmonary disease) ([facility]) History reviewed. No pertinent surgical history. Social History Socioeconomic History Marital status: Tobacco Use Smoking status: Former Current packs/day: 0.00 Types: Cigarettes Quit date: 03/18/2023 Years since quittin.2 Passive exposure: Current Smokeless tobacco: Never Vaping Use Vaping status: Never Used Substance and Sexual Activity Alcohol use: Yes Drug use: Never Social History Narrative Lives with Family History Problem Relation Name Age of Onset Dementia Mother Ovarian Cancer Mother Osteoarthritis Mother Endometriosis Sister Dementia Maternal Grandmother Family Status Relation Name Status Mother (Not Specified) Sister (Not Specified) MGM (Not Specified) No partnership data on file Filed Vitals: 06/17/23 1352 BP: (!) 158/87 Pulse: 84 Resp: 16 Temp: 98 ??F (36.7 ??C) TempSrc: Temporal SpO2: 97% Weight: 85.3 kg (188 lb) Height: 1.575 m (5' 2 ) Results for orders placed or performed in visit on 06/17/23 A1C (BACK OFFICE) Result Value Ref Range HGB A1C 5.0 % Physical Exam: Physical Exam Constitutional: Appearance: She is obese. HENT: Head: Normocephalic. Mouth/Throat: Pharynx: Oropharynx is clear. Cardiovascular: Rate and Rhythm: Normal rate and regular rhythm. Pulmonary: Effort: Pulmonary effort is normal. Breath sounds: Normal breath sounds. Abdominal: General: Bowel sounds are normal. Musculoskeletal: General: Swelling and signs of injury present. Skin: General: Skin is warm and dry. Neurological: General: No focal deficit present. Mental Status: She is alert and oriented to person, place, and time. Psychiatric: Mood and Affect: Mood normal. Behavior: Behavior normal. Diagnoses/Impression: Oumou was seen today for follow up. Patients left shoulder is in a sling and her pain level is an8 out of 10 when shoulder is moved. Patient doing well when taking [place] (5-325mg) tabs. I am scripting Cyclobenzaprine 10mg for spasms of the shoulder and left trap area. Patient scheduled to complete MRI on 06/17. Once MRI imaging interpreted I will contact patient. Patients in clinic A1C was 5.0%. Patients weight however has not improved since she hasn't been able to be active. Patient will be increased on Ozempic to 2mg SUBQ injection weekly. Diagnoses and all orders for this visit: Type 2 diabetes mellitus without complication, with long-term current use of insulin ([facility]) - A1C (BACK OFFICE) - COLLECT.CAPILLARY (FNGR,HEEL,EAR) - semaglutide (OZEMPIC) 2 mg/dose injection (PEN); Inject 2 mg into the skin once a week. Chronic left shoulder pain Muscle spasm of left shoulder - cyclobenzaprine (FLEXERIL) 10 MG tablet; Take 1 tablet (10 mg total) by mouth 3 (three) times daily as needed for Muscle Spasms. Recommendations and Plan: Complete MRI on 06/17. Orthopedic visit first week of June. MARV QUIROGA NP documented in this encounter Plan of Treatment Upcoming Encounters Date Type Department Care Team (Late st Contact Info) Description 02/12/2024 9:00 AM CORPORATE TAX MANAGER Appointment [facility] [address] [place], [place] [id number] [place] [address] [place], [place] [id number] [place] [address] [place] [address] 02/12/2024 2:00 PM CORPORATE TAX MANAGER Appointment [facility] [address] [place] [address] [place] [address] [place] [address] 02/16/2024 9:00 AM CORPORATE TAX MANAGER Appointment [facility] [address] [place] [address] [place] [address] [place] [address] [place] [address] [place] [address] 02/19/2024 8:45 AM CORPORATE TAX MANAGER Appointment [facility] [address] [place] [address] [place] [address] [place] [address] [place] [address] [place] [address] 02/19/2024 9:00 AM CORPORATE TAX MANAGER Appointment [facility] [address] [place] [address] [place] [address] [place] [address] [place] [address] [place] [address] 02/23/2024 9:00 AM CORPORATE TAX MANAGER Appointment [facility] [address] [place] [address] [place] [address] [place] [address] [place] [address] [place] [address] 02/24/2024 1:30 PM CORPORATE TAX MANAGER Appointment [address] [address] [place] [address] [place] [address] 02/26/2024 9:00 AM CORPORATE TAX MANAGER Appointment [facility] [address] [place] [address] [place] [address] [place] [address] [place] [address] [place] [address] 02/26/2024 9:15 AM CORPORATE TAX MANAGER Appointment [facility] [address] [place] [address] [place] [address] [place] [address] [place] [address] [place] [address] 03/01/2024 9:00 AM CORPORATE TAX MANAGER Appointment [facility] [address] [place] [address] [place] [address] [place] [address] [place] [address] [place] [address] Lorene Branch, FINAL OPERATIONS TECHNICIAN 03/02/2024 12:27 PM CORPORATE TAX MANAGER Hospital Encounter [facility] [address] [place] [address] [place] [address] [place] [address] 03/02/2024 12:27 PM CORPORATE TAX MANAGER - 03/02/2024 1:07 PM CORPORATE TAX MANAGER Surgery [facility] [address] [place] [address] [place] [address] [place] [address] MANIPULATION SHOULDER 03/05/2024 9:00 AM CORPORATE TAX MANAGER Appointment [facility] [address] [place] [address] [place] [address] [place] [address] Lorene Branch, FINAL OPERATIONS TECHNICIAN 03/08/2024 9:00 AM CORPORATE TAX MANAGER Appointment [facility] [address] [place] [address] [place] [address] [place] [address] Lorene Branch, FINAL OPERATIONS TECHNICIAN 03/11/2024 9:15 AM CORPORATE TAX MANAGER Appointment [facility] [address] [place] [address] [place] [address] [place] [address] Lorene Branch, FINAL OPERATIONS TECHNICIAN 03/15/2024 9:00 AM CORPORATE TAX MANAGER Appointment [facility] [address] [place] [address] [place] [address] [place] [address] Lorene Branch, FINAL OPERATIONS TECHNICIAN 03/18/2024 9:15 AM CORPORATE TAX MANAGER Appointment [facility] [address] [place] [address] [place] [address] [place] [address] Lorene Branch, FINAL OPERATIONS TECHNICIAN 03/22/2024 9:00 AM CORPORATE TAX MANAGER Appointment [facility] [address] [place] [address] [place] [address] [place] [address] Lorene Branch, FINAL OPERATIONS TECHNICIAN 03/25/2024 9:15 AM CORPORATE TAX MANAGER Appointment [facility] [address] [place] [address] [place] [address] [place] [address] Lorene Branch, FINAL OPERATIONS TECHNICIAN 04/21/2024 11:20 AM CORPORATE TAX MANAGER Office Visit [facility] Family & Internal Medicine [facility] [address] [place] [address] [place] [address] [facility] [place] [place] [id number] Scheduled Procedures Name Priority Associated Diagnoses Date/Ti me MANIPULATION SHOULDER Adhesive capsulitis of left shoulder 03/02/2024 12:27 PM CORPORATE TAX MANAGER INJECTION JOINT Adhesive capsulitis of left shoulder 03/02/2024 12:27 PM CORPORATE TAX MANAGER documented as of this encounter Procedures Procedure Name Priority Date/Time Associated Diagnosis Comments COLLECT.CAPILLARY (FNGR,HEEL,EAR) Routine 06/17/2023 2:02 PM CDT Type 2 diabetes mellitus without complication, with long-term current use of insulin ([facility]) HEMOGLOBIN, GLYCOSYLATED Routine 06/17/2023 Type 2 diabetes mellitus without complication, with long-term current use of insulin ([facility]) documented in this encounter Results * A1C (BACK OFFICE) (06/17/2023) HGB A1C 5.0 % [id number] 06/17/2023 Marv Quiroga NP LABORATORY Final Result [id number] [facility] [address] [place] [address], [place] [phone] documented in this encounter Visit Diagnoses Diagnosis Type 2 diabetes mellitus without complication, with long-term current use of insulin ([facility])- Primary Chronic left shoulder pain Pain in joint, shoulder region Muscle spasm of left shoulder Adhesive capsulitis of left shoulder Adhesive capsulitis of shoulder documented in this encounter Additional Health Concerns Assessment Noted Time PHQ-9 Depression Total Score: 5 03/18/19 24 2:22 PM CORPORATE TAX MANAGER documented as of this encounter Care Teams Siebel Administrator Relationship Specialty Start Date End Date Marv Quiroga NP PCP - General NURSE PRACTITIONER ADULT HEALTH 03/11/23 09/14/23 documented as of this encounter
--- OUTSIDE RECORDS SUMMARY | 2024-02-12 03:31 | XMS_ITS | Encounter Summary ---
Author Organization [facility] Address [facility]6 [facility] [place] [address] [place] [address] Care Team Providers Care Asphalt Mixer Name Role Phone Marv Young LOOM INSPECTOR Primary Care Provide r Reason for Visit * Reason Onset Date Comments Medication Request 05/26/2023 Encounter Details Date Type Department Care Team (Late st Contact Info) Description 05/26/2023 Telephone [facility] Family & Internal Medicine [facility] [address] [place] [address] Marv Young, LOOM INSPECTOR 6 [facility] [place] [address] Medication Request Social History Tobacco [...] Progress Notes * Sanjuana Choi MA - 05/28/2023 2:18 PM CDT Pt informed. * Sanjuana Choi MA - 05/28/2023 10:42 AM CDT Left message on machine. * Sanjuana Choi MA - 05/27/2023 2:42 PM CDT fyi * Alejandra Zamudio LPN - 05/27/2023 10:21 AM CDT Pt called she is scheduled for MRI in [place] on 06/13/23 9 am * Alejandra Zamudio LPN - 05/27/2023 10:11 AM CDT I called pt informed her the order for MRI in [place] was sent she can get it 06/12/23 Pt states she is still in a lot of pain Read shannan message Please let him know about MRI * Sanjuana Choi MA - 05/26/2023 5:03 PM CDT Advise? * Alejandra Zamudio LPN - 05/26/2023 3:32 PM CDT Pt called states that the flexeril and naproxen are not working for her arm pain and the nurse at said that Aman Hannah was going to order something else Pharm [facility] [phone] documented in this encounter Plan of Treatment Upcoming Encounters Date Type Department Care Team (Late st Contact Info) Description 02/12/2024 9:00 AM DEVICE TEST ENGINEER Appointment [facility]hab [address] [place] [address] [place] [address] [place] [address] [place] [address] [place] [address] 02/12/2024 2:00 PM DEVICE TEST ENGINEER Appointment [facility] MRI [address] [place] [address] [place] [address] [place] [address] 02/16/2024 9:00 AM DEVICE TEST ENGINEER Appointment [facility] [address] [place] [address] [place] [address] [place] [address] [place] [address] [place], [place] [id number] 02/19/2024 8:45 AM DEVICE TEST ENGINEER Appointment [facility]hab [address] [place] [address] [place] [address] [place] [address] [place] [address] [place] [id number] 02/19/2024 9:00 AM DEVICE TEST ENGINEER Appointment [facility]hab [address] [place] [address] [place] [address] [place] [address] [place] [address] [place] [address] 02/23/2024 9:00 AM DEVICE TEST ENGINEER Appointment [facility] [address] [place] [address] [place] [address] [place] [address] [place] [address] [place] [address] 02/24/2024 1:30 PM DEVICE TEST ENGINEER Appointment [facility] [place] [address] [place] [address] Ihsan Logan, [address] [place] [address] 02/26/2024 9:00 AM DEVICE TEST ENGINEER Appointment [facility]hab [address] [place] [address] [place] [address] [place] [address] [place] [address] [place] [address] 02/26/2024 9:15 AM DEVICE TEST ENGINEER Appointment [facility] [address] [place] [address] [place] [address] [place] [address] [place] [address] [place] [address] 03/01/2024 9:00 AM DEVICE TEST ENGINEER Appointment [facility] Outpatient [facility]hab [address] [place] [address] [place] [address] [place] [address] [place] [address] [place] [address] Lorene Branch, TENNIS BALL COVER CEMENTER 03/02/2024 12:27 PM DEVICE TEST ENGINEER Hospital Encounter [address] [address] [place] [address] [place] [address] 03/02/2024 12:27 PM DEVICE TEST ENGINEER - 03/02/2024 1:07 PM DEVICE TEST ENGINEER Surgery [facility] Surgery [address] [place] [address] [place] [address] [place] [address] MANIPULATION SHOULDER 03/05/2024 9:00 AM DEVICE TEST ENGINEER Appointment [facility] Out[facility]hab [address] [place] [address] [place] [address] [place] [address] Lorene Branch, TENNIS BALL COVER CEMENTER 03/08/2024 9:00 AM DEVICE TEST ENGINEER Appointment [facility] [address] [place] [address] [place] [address] [place] [address] Lorene Branch, TENNIS BALL COVER CEMENTER 03/11/2024 9:15 AM DEVICE TEST ENGINEER Appointment [facility] [address] [place] [address] [place] [address] [place] [address] Lorene Branch, TENNIS BALL COVER CEMENTER 03/15/2024 9:00 AM DEVICE TEST ENGINEER Appointment [facility] [address] [place] [address] [place] [address] [place] [address] Lorene Branch, TENNIS BALL COVER CEMENTER 03/18/2024 9:15 AM DEVICE TEST ENGINEER Appointment [facility] [address] [place] [address] [place] [address] [place] [address] Lorene Branch, TENNIS BALL COVER CEMENTER 03/22/2024 9:00 AM DEVICE TEST ENGINEER Appointment [facility] [address] [place] [address] [place] [address] [place] [address] Lorene Branch, TENNIS BALL COVER CEMENTER 03/25/2024 9:15 AM DEVICE TEST ENGINEER Appointment [facility]hab [address] [place] [address] [place] [address] [place], [place] [id number] Jose Carlos Lorene L, TENNIS BALL COVER CEMENTER 04/21/2024 11:20 AM DEVICE TEST ENGINEER Office Visit [facility] Family & Internal Medicine - [place] [address] [place] [address] [place] [address] [place], [place] [phone] Scheduled Procedures Name Priority Associated Diagnoses Date/Ti me MANIPULATION SHOULDER Adhesive capsulitis of left shoulder 03/02/2024 12:27 PM DEVICE TEST ENGINEER INJECTION JOINT Adhesive capsulitis of left shoulder 03/02/2024 12:27 PM DEVICE TEST ENGINEER documented as of this encounter Visit Diagnoses Not on filedocumented in this encounter Additional Health Concerns Assessment Noted Time PHQ-9 Depression Total Score: 5 03/18/19 2:22 PM DEVICE TEST ENGINEER documented as of this encounter Care Teams Asphalt Mixer Relationship Specialty Start Date End Date Marv Young NP PCP - General NURSE PRACTITIONER ADULT HEALTH 03/11/23 09/14/23 documented as of this encounter
--- OUTSIDE RECORDS SUMMARY | 2024-02-12 03:31 | XMS_ITS | Encounter Summary ---
Author Organization [facility] Address [facility]6 [facility] [place] [address] [place] [address] Care Team Providers Care Cloud Operations Engineer Name Role Phone Marv Young PATIENT CARE TECHNICIAN Primary Care Provide r Encounter Details Date Type Department Care Team (Late st Contact Info) Description 05/27/2023 Medication Management [facility] Family & Internal Medicine [address] [address] Marv Young, PATIENT CARE TECHNICIAN [address] [facility] [place] [address] Social History Tobacco Use Types [...] st Contact Info) Description 02/12/2024 9:00 AM DEVELOPMENTAL EDUCATION INSTRUCTOR Appointment [facility] Outpatient Rehab [id number] [place] [address] [place] [address] [place] [address] [place] [address] [place] [address] 02/12/2024 2:00 PM DEVELOPMENTAL EDUCATION INSTRUCTOR Appointment [facility] [place] [address] [place] [address] [place] [address] [place] [address] 02/16/2024 9:00 AM DEVELOPMENTAL EDUCATION INSTRUCTOR Appointment [facility] [address] [place] [address] [place] [address] [place] [address] [place] [address] [place] [address] 02/19/2024 8:45 AM DEVELOPMENTAL EDUCATION INSTRUCTOR Appointment [facility]hab [address] [place] [address] [place] [address] [place] [address] [place] [address] [place] [address] 02/19/2024 9:00 AM DEVELOPMENTAL EDUCATION INSTRUCTOR Appointment [facility]hab [address] [place] [address] [place] [address] [place] [address] [place] [address] [place] [address] 02/23/2024 9:00 AM DEVELOPMENTAL EDUCATION INSTRUCTOR Appointment [facility] [address] [place] [address] [place] [address] [place] [address] [place] [address] [place] [address] 02/24/2024 1:30 PM DEVELOPMENTAL EDUCATION INSTRUCTOR Appointment [address] [address] Ihsan Logan, [address] [place] [address] 02/26/2024 9:00 AM DEVELOPMENTAL EDUCATION INSTRUCTOR Appointment [facility] [address] [place] [address] [place] [address] [place] [address] [place] [address] [place] [address] 02/26/2024 9:15 AM DEVELOPMENTAL EDUCATION INSTRUCTOR Appointment [facility] [address] [place] [address] [place] [address] [place] [address] [place] [address] [place] [address] 03/01/2024 9:00 AM DEVELOPMENTAL EDUCATION INSTRUCTOR Appointment [facility] [address] [place] [address] [place] [address] [place] [address] [place] [address] [place] [address] Lorene Branch, FAMILY ADVOCATE 03/02/2024 12:27 PM DEVELOPMENTAL EDUCATION INSTRUCTOR Hospital Encounter [facility] Surgery [address] [place] [address] [place] [address] [place] [address] 03/02/2024 12:27 PM DEVELOPMENTAL EDUCATION INSTRUCTOR - 03/02/2024 1:07 PM DEVELOPMENTAL EDUCATION INSTRUCTOR Surgery [facility] Surgery [address] [place] [address] [place] [address] [place] [address] MANIPULATION SHOULDER 03/05/2024 9:00 AM DEVELOPMENTAL EDUCATION INSTRUCTOR Appointment [facility] [address] [place] [address] [place] [address] [place] [address] Lorene Branch, FAMILY ADVOCATE 03/08/2024 9:00 AM DEVELOPMENTAL EDUCATION INSTRUCTOR Appointment [facility] [address] [place] [address] [place] [address] [place] [address] Lorene Branch, FAMILY ADVOCATE 03/11/2024 9:15 AM DEVELOPMENTAL EDUCATION INSTRUCTOR Appointment [facility] [address] [place] [address] [place] [address] [place] [address] Lorene Branch, FAMILY ADVOCATE 03/15/2024 9:00 AM DEVELOPMENTAL EDUCATION INSTRUCTOR Appointment [facility] [address] [place] [address] [place] [address] [place] [address] Lorene Branch, FAMILY ADVOCATE 03/18/2024 9:15 AM DEVELOPMENTAL EDUCATION INSTRUCTOR Appointment [facility] [address] [place] [address] [place] [address] [place] [address] Lorene Branch, FAMILY ADVOCATE 03/22/2024 9:00 AM DEVELOPMENTAL EDUCATION INSTRUCTOR Appointment [facility] [address] [place] [address] [place] [address] [place] [address] Lorene Branch, FAMILY ADVOCATE 03/25/2024 9:15 AM DEVELOPMENTAL EDUCATION INSTRUCTOR Appointment [facility] [address] [place] [address] [place] [address] [place] [address] Lorene Branch, FAMILY ADVOCATE 04/21/2024 11:20 AM DEVELOPMENTAL EDUCATION INSTRUCTOR Office Visit [facility] Family & Internal Medicine [facility] [address] [place] [address] [place] [address] [place] [address] Scheduled Procedures Name Priority Associated Diagnoses Date/Ti me MANIPULATION SHOULDER Adhesive capsulitis of left shoulder 03/02/2024 12:27 PM DEVELOPMENTAL EDUCATION INSTRUCTOR INJECTION JOINT Adhesive capsulitis of left shoulder 03/02/2024 12:27 PM DEVELOPMENTAL EDUCATION INSTRUCTOR documented as of this encounter Visit Diagnoses Diagnosis Tendinopathy of left biceps tendon- Primary Muscle strain of left upper arm, sequela Adhesive capsulitis of left shoulder Adhesive capsulitis of shoulder documented in this encounter Additional Health Concerns Assessment Noted Time PHQ-9 Depression Total Score: 5 03/18/19 24 2:22 PM DEVELOPMENTAL EDUCATION INSTRUCTOR documented as of this encounter Care Teams Cloud Operations Engineer Relationship Specialty Start Date End Date Marv Young NP PCP - General NURSE PRACTITIONER ADULT HEALTH 03/11/23 09/14/23 documented as of this encounter
--- OUTSIDE RECORDS SUMMARY | 2024-02-12 03:31 | XMS_ITS | Encounter Summary ---
Author Organization [facility] Address [facility]6 [facility] [place] [address] [place] [address] Care Team Providers Care Corn Shredder Name Role Phone Marv Young NP Primary Care Provide r Encounter Details Date Type Department Care Team (Latest Contact Info) Description 05/29/2023 Travel Social History Tobacco Use Types Packs/Day [...] Contact Info) Description 02/12/2024 9:00 AM CLINICAL REHAB SPECIALIST Appointment [facility] Outpatient Rehab [address] [place] [address] [place] [address] [place] [address] [place] [address] [place] [address] 02/12/2024 2:00 PM CLINICAL REHAB SPECIALIST Appointment [facility] MRI [address] [place] [address] [place] [address] [place] [address] 02/16/2024 9:00 AM CLINICAL REHAB SPECIALIST Appointment [facility] Outpatient [facility]hab [address] [place] [address] [place] [address] [place] [address] [place] [address] [place] [address] 02/19/2024 8:45 AM CLINICAL REHAB SPECIALIST Appointment [facility] Outpatient Rehab [address] [place] [address] [place] [address] [place] [address] [place] [address] [place] [address] 02/19/2024 9:00 AM CLINICAL REHAB SPECIALIST Appointment [facility] Outpatient [facility]hab [address] [place] [address] [place] [address] [place] [address] [place] [address] [place] [address] 02/23/2024 9:00 AM CLINICAL REHAB SPECIALIST Appointment [facility]hab [address] [place] [address] [place] [address] [place] [address] [place] [address] [place] [address] 02/24/2024 1:30 PM CLINICAL REHAB SPECIALIST Appointment [facility] [address] [place] [address] [place] [address] [place] [address] 02/26/2024 9:00 AM CLINICAL REHAB SPECIALIST Appointment [facility]patient [facility]hab [address] [place] [address] [place] [address] [place] [address] [place] [address] [place] [address] 02/26/2024 9:15 AM CLINICAL REHAB SPECIALIST Appointment [facility]patient [facility]hab [address] [place] [address] [place] [address] [place] [address] [place] [address] [place] [address] 03/01/2024 9:00 AM CLINICAL REHAB SPECIALIST Appointment [facility] Out[facility]hab [address] [place] [address] [place] [address] [place] [address] [place] [address] [place] [address] Lorene Branch, FLASK CARRIER 03/02/2024 12:27 PM CLINICAL REHAB SPECIALIST Hospital Encounter [facility] Surgery [address] [place] [address] [place] [address] [place] [address] 03/02/2024 12:27 PM CLINICAL REHAB SPECIALIST - 03/02/2024 1:07 PM CLINICAL REHAB SPECIALIST Surgery [address] [address] [place] [address] [place] [address] MANIPULATION SHOULDER 03/05/2024 9:00 AM CLINICAL REHAB SPECIALIST Appointment [facility] Outpatient Rehab [address] [place] [address] [place] [address] [place] [address] Lorene Branch, FLASK CARRIER 03/08/2024 9:00 AM CLINICAL REHAB SPECIALIST Appointment [facility] Outpatient Rehab [address] [place] [address] [place] [address] [place] [address] Lorene Branch, FLASK CARRIER 03/11/2024 9:15 AM CLINICAL REHAB SPECIALIST Appointment [facility] Outpatient Rehab [address] [place] [address] [place] [address] [place] [address] Lorene Branch, FLASK CARRIER 03/15/2024 9:00 AM CLINICAL REHAB SPECIALIST Appointment [facility] [address] [place] [address] [place] [address] [place] [address] Lorene Branch, FLASK CARRIER 03/18/2024 9:15 AM CLINICAL REHAB SPECIALIST Appointment [facility] [address] [place] [address] [place] [address] [place] [address] Lorene Branch, FLASK CARRIER 03/22/2024 9:00 AM CLINICAL REHAB SPECIALIST Appointment [facility] [address] [place] [address] [place] [address] [place] [address] Lorene Branch, FLASK CARRIER 03/25/2024 9:15 AM CLINICAL REHAB SPECIALIST Appointment [facility] [address] [place] [address] [place] [address] [place] [address] Lorene Branch, FLASK CARRIER 04/21/2024 11:20 AM CLINICAL REHAB SPECIALIST Office Visit [facility] Medical Group Family & Internal Medicine - [place] [address] [place] [address] [place] [address] [place] [address] Scheduled Procedures Name Priority Associated Diagnoses Date/Ti me MANIPULATION SHOULDER Adhesive capsulitis of left shoulder 03/02/2024 12:27 PM CLINICAL REHAB SPECIALIST INJECTION JOINT Adhesive capsulitis of left shoulder 03/02/2024 12:27 PM CLINICAL REHAB SPECIALIST documented as of this encounter Visit Diagnoses Not on filedocumented in this encounter Additional Health Concerns Assessment Noted Time PHQ-9 Depression Total Score: 5 03/18/19 2:22 PM CLINICAL REHAB SPECIALIST documented as of this encounter Care Teams Corn Shredder Relationship Specialty Start Date End Date Marv Young NP PCP - General NURSE PRACTITIONER ADULT HEALTH 03/11/23 09/14/23 documented as of this encounter
--- OUTSIDE RECORDS SUMMARY | 2024-02-12 03:31 | XMS_ITS | Encounter Summary ---
Author Organization [facility] Address [facility] [place] [address] [place] [address] Care Team Providers Care Employee Placement Specialist Name Role Phone Marv Young CATTLE CARE WORKER Primary Care Provide r Reason for Referral * Imaging (Urgent) - Closed Specialty Diagnoses / Procedures Referred By Shmuel angel Referred To Contact RADIOLOGY Diagnoses Acute pain of left shoulder Procedures [place] [address] [place] [address] Phone: tel: fax: Referral ID Status Reason Start Date Expiration Date Visits Re quested Visits Authorized [id number] Closed 06/11/2023 07/10/2024 1 1 Reason for Visit * Imaging (Urgent) - Closed Specialty Diagnoses / Procedures Referred By Contac jeanne Referred To Contact RADIOLOGY Diagnoses Acute pain of left shoulder Procedures [place] [address] [place] [address] Phone: tel: fax: Referral ID Status Reason Start Date Expiration Date Visits Re quested Visits Authorized [id number] Closed 06/11/2023 07/10/2024 1 1 Encounter Details Date Type Department Care Team (Latest Contact Info) Description 06/18/2023 10:11 AM CDT - 06/18/2023 11:59 PM CDT [facility] [address] [place] [address] Negrita Soriano, [place] [address] [place] [address] Discharge Disposition: Home or Self Care (Routine [...] or Shortness of breath. 18 g 04/01/2023 ALPRAZolam (XANAX) 0.5 MG tablet TAKE 1 ORAL TABLET ONCE A DAY FOR ANXIETY ONSET 07/26/2022 4 ARIPiprazole (ABILIFY) 15 MG tabletIndications :Depression, unspecified depression type Take 1 tablet (15 mg total) by mouth daily. 30 tablet 2 03/18/2023 4 cyclobenzaprine (FLEXERIL) 10 MG tabletIndications :Muscle spasm of left shoulder Take 1 tablet (10 mg total) by mouth 3 (three) times daily as needed for Muscle Spasms. 30 tablet 06/17/2023 4 cyclobenzaprine (FLEXERIL) 5 MG tablet Take 1 tablet (5 mg total) by mouth as needed. 4 DULoxetine (CYMBALTA) 30 MG capsuleIndication s:Depression, unspecified depression type TAKE 1 CAPSULE BY MOUTH 2 TIMES DAILY. 180 capsule 1 06/10/2023 4 DULoxetine (CYMBALTA) 30 MG capsule Take [...] Nostril route daily. SHAKE LIQUID 03/28/2022 4 HYDROcodone-aceta minophen (NORCO) 5-325 MG tabletIndications :Chronic Pain Take 1-2 tablets by mouth every 6 (six) hours as needed for Pain. Indications: Chronic Pain 60 tablet 06/11/2023 4 ibuprofen (MOTRIN) 600 MG tablet Take 1 tablet (600 mg total) by mouth every 6 (six) hours as needed. 02/12/2023 4 lidocaine (LIDODERM) 5 % Place 1 patch onto the skin daily for 30 days. Remove & Discard patch within 12 hours or as directed by MD 30 patch 05/29/2023 4 naproxen (NAPROSYN) 500 MG tabletIndications :Tendinopathy of left biceps tendon,Strain of left biceps, initial encounter Take 1 tablet (500 mg total) by mouth 2 (two) times daily with meals. 60 tablet 05/16/2023 4 predniSONE (DELTASONE) 20 MG tabletIndications :Chronic left shoulder pain Take 3 tablets for 3 days, then 2 tabs for 3 days, then 1 tab for 3 days, then 1/2 tab for 4 days. 20 tablet 06/11/2023 4 progesterone (PROMETRIUM) 100 MG capsuleIndication s:Menopausal and female climacteric states take 1 capsule by mouth every day 90 capsule 1 06/10/2023 4 QUEtiapine (SEROQUEL) 100 MG tabletIndications :Bipolar I disorder with depression (CMS/HCC HHS/HCC) TAKE 1 TABLET BY MOUTH NIGHTLY AT BEDTIME. 90 tablet 06/09/2023 4 semaglutide (OZEMPIC) 2 mg/dose injection (PEN)Indications: Type 2 diabetes mellitus without complication, with long-term current use of insulin (CMS/HCC HHS/HCC) Inject 2 mg into the skin once a week. 9 mL 1 06/17/2023 4 SUMAtriptan (IMITREX) 25 MG tabletIndications :Migraine [...] Pain < 7 Day Supply 28 tablet 06/09/2023 4 traZODone (DESYREL) 100 MG tabletIndications :Insomnia, unspecified TAKE 1 TABLET (100 MG TOTAL) BY MOUTH NIGHTLY AT BEDTIME FOR 30 DAYS. 90 tablet 06/13/2023 4 documented as of this encounter Progress Notes * Isabela Dias RN - 06/18/2023 10:30 AM CDT Called pt and informed her of MRI results. She v/u. States she is in so much pain. States she is crying all the time due to it hurting so bad. States the only thing that helps is the meds [facility] gave her. Wants to know if she is supposed to be off work until her ortho apt with Dr Logan on 07-06. Informed her I would send [facility] a message and get back with her. She v/u. documented in this encounter Plan of Treatment Upcoming Encounters Date Type Department Care Team (Late st Contact Info) Description 02/12/2024 9:00 AM CLINICAL ADMINISTRATIVE COORDINATOR Appointment [facility] [address] [place] [address] [place] [address] [place] [address] [place] [address] [place] [address] 02/12/2024 2:00 PM CLINICAL ADMINISTRATIVE COORDINATOR Appointment [facility] [address] [place] [address] [place] [address] [place] [address] 02/16/2024 9:00 AM CLINICAL ADMINISTRATIVE COORDINATOR Appointment [facility] [address] [place] [address] [place] [address] [place] [address] [place] [address] [place] [address] 02/19/2024 8:45 AM CLINICAL ADMINISTRATIVE COORDINATOR Appointment [facility] [address] [place] [address] [place] [address] [place] [address] [place] [address] [place] [address] 02/19/2024 9:00 AM CLINICAL ADMINISTRATIVE COORDINATOR Appointment [facility] [address] [place] [address] [place] [address] [place] [address] [place] [address] [place] [address] 02/23/2024 9:00 AM CLINICAL ADMINISTRATIVE COORDINATOR Appointment [facility] [address] [place] [address] [place] [address] [place] [address] [place] [address] [place] [address] 02/24/2024 1:30 PM CLINICAL ADMINISTRATIVE COORDINATOR Appointment [facility] MRI [address] [place] [address] Ihsan Logan, [address] [place] [address] 02/26/2024 9:00 AM CLINICAL ADMINISTRATIVE COORDINATOR Appointment [facility] [address] [place] [address] [place] [address] [place] [address] [place] [address] [place] [address] 02/26/2024 9:15 AM CLINICAL ADMINISTRATIVE COORDINATOR Appointment [facility] [address] [place] [address] [place] [address] [place] [address] [place] [address] [place] [address] 03/01/2024 9:00 AM CLINICAL ADMINISTRATIVE COORDINATOR Appointment [facility] [address] [place] [address] [place] [address] [place] [address] [place] [address] [place] [address] Lorene [place], [employer]ER 03/02/2024 12:27 PM CLINICAL ADMINISTRATIVE COORDINATOR Hospital Encounter [facility] Surgery [address] [place] [address] [place] [address] [place] [address] 03/02/2024 12:27 PM CLINICAL ADMINISTRATIVE COORDINATOR - 03/02/2024 1:07 PM CLINICAL ADMINISTRATIVE COORDINATOR Surgery [facility] Surgery [address] [place] [address] [place] [address] [place] [address] MANIPULATION SHOULDER 03/05/2024 9:00 AM CLINICAL ADMINISTRATIVE COORDINATOR Appointment [facility] [address] [place] [address] [place] [address] [place] [address] Lorene Branch, [employer]ER 03/08/2024 9:00 AM CLINICAL ADMINISTRATIVE COORDINATOR Appointment [facility] [address] [place] [address] [place] [address] [place] [address] Lorene Branch, [employer]ER 03/11/2024 9:15 AM CLINICAL ADMINISTRATIVE COORDINATOR Appointment [facility] [address] [place] [address] [place] [address] [place] [address] Lorene Branch, COUNTY HE[employer] OFFICER 03/15/2024 9:00 AM CLINICAL ADMINISTRATIVE COORDINATOR Appointment [facility] [address] [place] [address] [place] [address] [place] [address] Lorene Branch, COUNTY [employer]ER 03/18/2024 9:15 AM CLINICAL ADMINISTRATIVE COORDINATOR Appointment [facility] [address] [place] [address] [place] [address] [place] [address] Lorene Branch, [employer]ER 03/22/2024 9:00 AM CLINICAL ADMINISTRATIVE COORDINATOR Appointment [facility] [address] [place] [address] [place] [address] [place] [address] Lorene Branch, [employer]ER 03/25/2024 9:15 AM CLINICAL ADMINISTRATIVE COORDINATOR Appointment [facility] [address] [place] [address] [place] [address] [place] [address] Jose Carlos, Lorene KennedyCAROLA 04/21/2024 11:20 AM CLINICAL ADMINISTRATIVE COORDINATOR Office Visit [facility] [address] [place] [phone] [place] [address] [place], [place] [phone] Scheduled Procedures Name Priority Associated Diagnoses Date/Ti me MANIPULATION SHOULDER Adhesive capsulitis of left shoulder 03/02/2024 12:27 PM CLINICAL ADMINISTRATIVE COORDINATOR INJECTION JOINT Adhesive capsulitis of left shoulder 03/02/2024 12:27 PM CLINICAL ADMINISTRATIVE COORDINATOR documented as of this encounter Procedures Procedure Name Priority Date/Time Associated Diagnosis Comments MRI SHOULDER LT WO CON CHELE 06/18/2023 11:28 AM CDT Chronic left shoulder pain documented in this encounter Results * MRI SHOULDER LT WO CON (06/18/2023 11:28 AM CDT) Anatomical Region Laterality Modality Shoulder Magnetic Resonan ce 06/18/2023 4:29 PM CDT Impressions 06/18/2023 4:31 PM CDT IMPRESSION: 1. ?? Findings concerning for cerebral minimal impingement including narrowing and mild bursitis. No clear evidence of rotator cuff or labral tear. 2. ??Mild glenohumeral joint effusion Ordered By: NEGRITA SORIANO Interpreted By: Bonilla See, 06/18/2023 4:29 PM Narrative 06/18/2023 4:31 PM CDT EXAMINATION: MRI LEFT SHOULDER WITHOUT CONTRAST EXAM DATE: 06/18/2023 10:54 AM REASON FOR EXAM: ??Shoulder pain, rotator cuff disorder suspected, xray done ? Shoulder pain and decreased range of motion COMPARISON: None TECHNIQUE: Multisequence multiplanar imaging of the shoulder without intravenous contrast. FINDINGS: Mild soft tissue swelling. ROTATOR CUFF: No evidence of rotator cuff tear or atrophy. Bursal sided fraying of supraspinatus. BICEPS: Long head biceps anatomically positioned in the intertubercular groove. LABRUM: No evidence of labral tear. ACROMIOCLAVICULAR: Acromioclavicular joint osteoarthritis. Subacromial narrowing and mild bursitis concerning for impingement. GLENOHUMERAL: Mild glenohumeral joint effusion. BONE MARROW: No suspicious lesion or fracture. Procedure Note Bonilla See MD - 06/18/2023 EXAMINATION: MRI LEFT SHOULDER WITHOUT CONTRAST EXAM DATE: 06/18/2023 10:54 AM REASON FOR EXAM: Shoulder pain, rotator cuff disorder suspected, xraydone Shoulder pain and decreased range of motion COMPARISON: None TECHNIQUE: Multisequence multiplanar imaging of the shoulder withoutintravenous contrast. FINDINGS: Mild soft tissue swelling. ROTATOR CUFF: No evidence of rotator cuff tear or atrophy. Bursal sided fraying ofsupraspinatus. BICEPS: Long head biceps anatomically positioned in the intertubercular groove. LABRUM: No evidence of labral tear. ACROMIOCLAVICULAR: Acromioclavicular joint osteoarthritis. Subacromial narrowing and mildbursitis concerning for impingement. GLENOHUMERAL: Mild glenohumeral joint effusion. BONE MARROW: No suspicious lesion or fracture. IMPRESSION: 1. Findings concerning for cerebral minimal impingement includingnarrowing and mild bursitis. No clear evidence of rotator cuff or labraltear. 2. Mild glenohumeral joint effusion Ordered By: NEGRITA SORIANO Interpreted By: Bonilla See, 06/18/2023 4:29 PM Negrita SCOTT MRI Final Result documented in this encounter Visit Diagnoses Diagnosis Chronic left shoulder pain Pain in joint, shoulder region Adhesive capsulitis of left shoulder Adhesive capsulitis of shoulder documented in this encounter Additional Health Concerns Assessment Noted Time PHQ-9 Depression Total Score: 5 03/18/19 24 2:22 PM CLINICAL ADMINISTRATIVE COORDINATOR documented as of this encounter Care Teams Employee Placement Specialist Relationship Specialty Start Date End Date Marv Young NP PCP - General NURSE PRACTITIONER ADULT HEALTH 03/11/23 09/14/23 documented as of this encounter
--- OUTSIDE RECORDS SUMMARY | 2024-02-12 03:31 | XMS_ITS | Encounter Summary ---
Author Organization [facility] Address [facility] Formerly [place] [address] [place] [address] Care Team Providers Care Assistant Paralegal Name Role Phone Marv Quiroga NP Primary Care Provide r Reason for Referral * Imaging (Urgent) - Closed Specialty Diagnoses / Procedures Referred By Shmuel angel Referred To Contact RADIOLOGY Diagnoses Strain of left biceps, initial encounter Tendinopathy of left biceps tendon Procedures MRI HUMERUS LT WO CON Marv Quiroga NP Phone: tel: fax: Referral ID Status Reason Start Date Expiration Date Visits Re quested Visits Authorized [id number] Closed 06/02/2023 06/01/2024 1 1 Reason for Visit * Imaging (Urgent) - Closed Specialty Diagnoses / Procedures Referred By Shmuel angel Referred To Contact RADIOLOGY Diagnoses Strain of left biceps, initial encounter Tendinopathy of left biceps tendon Procedures MRI HUMERUS LT WO CON Marv Quiroga NP Phone: tel: fax: Referral ID Status Reason Start Date Expiration Date Visits Re quested Visits Authorized [id number] Closed 06/02/2023 06/01/2024 1 1 Encounter Details Date Type Department Care Team (Latest Contact Info) Description 06/04/2023 2:34 PM CDT - 06/04/2023 11:59 PM CDT Hospital Encounter [facility] [address] [place] [address] Marv Quiroga, CREDIT CONTROL MANAGER [address] [place] [address] Discharge Disposition: Home or Self Care (Routine [...] MG tabletIndications :Bipolar I disorder with depression ([facility] HHS/HCC) Take 1 tablet (100 mg total) by mouth nightly at bedtime. 90 tablet 03/18/2023 4 semaglutide (OZEMPIC) 1 mg/dose injection (PEN)Indications: Type 2 diabetes mellitus without complication, with long-term current use of insulin ([facility] HHS/[facility]) Inject 1 mg into the skin once a week for 84 days. 3 mL 2 03/18/2023 4 SUMAtriptan (IMITREX) 25 MG tabletIndications :Migraine with status migrainosus, not intractable, unspecified migraine type Take 1 tablet (25 mg total) by mouth daily as needed for Migraine. Max of 8 tablets (200 mg) in a 24 hour period. 30 tablet 2 03/18/2023 traMADol (ULTRAM) 50 MG tabletIndications :Acute Pain < 7 Day Supply Take 1 tablet (50 mg total) by mouth every 6 (six) hours as needed for Pain. Indications: Acute Pain < 7 Day Supply 28 tablet 05/27/2023 4 documented as of this encounter Progress Notes * Marv Quiroga NP - 06/04/2023 4:00 PM CDT Please let patient know that the MRI was negative for bicep muscle or tendon tear. documented in this encounter Plan of Treatment Upcoming Encounters Date Type Department Care Team (Late st Contact Info) Description 02/12/2024 9:00 AM METAPHYSICIAN Appointment [facility] [address] [place] [address] [place] [address] [place] [address] [place] [address] [place] [address] 02/12/2024 2:00 PM METAPHYSICIAN Appointment [facility] [place] [address] [place] [address] [place] [address] [place] [address] 02/16/2024 9:00 AM METAPHYSICIAN Appointment [facility] [address] [place] [address] [place] [address] [place] [address] [place] [address] [place] [address] 02/19/2024 8:45 AM METAPHYSICIAN Appointment [facility] [address] [place] [address] [place] [address] [place] [address] [place] [address] [place] [address] 02/19/2024 9:00 AM METAPHYSICIAN Appointment [facility] [address] [place] [address] [place] [address] [place] [address] [place] [address] [place] [address] 02/23/2024 9:00 AM METAPHYSICIAN Appointment [facility] [address] [place] [address] [place] [address] [place] [address] [place] [address] [place] [address] 02/24/2024 1:30 PM METAPHYSICIAN Appointment [facility] [place] [address] [place] [address] [place] [address] [place] [address] 02/26/2024 9:00 AM METAPHYSICIAN Appointment [facility] [address] [place] [address] [place] [address] [place] [address] [place] [address] [place] [address] 02/26/2024 9:15 AM METAPHYSICIAN Appointment [facility] [address] [place] [address] [place] [address] [place] [address] [place] [address] [place] [address] 03/01/2024 9:00 AM METAPHYSICIAN Appointment [facility] [address] [place] [address] [place] [address] [place] [address] [place] [address] [place] [address] Lorene Branch, INCLUSION INTERN 03/02/2024 12:27 PM METAPHYSICIAN Hospital Encounter [facility] [address] [place] [address] [place] [address] [place] [address] 03/02/2024 12:27 PM METAPHYSICIAN - 03/02/2024 1:07 PM METAPHYSICIAN Surgery [facility] [address] [place] [address] Ihsan Logan, [address] [place] [address] MANIPULATION SHOULDER 03/05/2024 9:00 AM METAPHYSICIAN Appointment [facility] [address] [place] [address] [place] [address] [place] [address] Lorene Branch, INCLUSION INTERN 03/08/2024 9:00 AM METAPHYSICIAN Appointment [facility] [address] [place] [address] [place] [address] [place] [address] Lorene Branch, INCLUSION INTERN 03/11/2024 9:15 AM METAPHYSICIAN Appointment [facility] [address] [place] [address] [place] [address] [place] [address] Lorene Branch, INCLUSION INTERN 03/15/2024 9:00 AM METAPHYSICIAN Appointment [facility] [address] [place] [address] [place] [address] [place] [address] Lorene Branch, INCLUSION INTERN 03/18/2024 9:15 AM METAPHYSICIAN Appointment [facility] [address] [place] [address] [place] [address] [place] [address] Lorene Branch, INCLUSION INTERN 03/22/2024 9:00 AM METAPHYSICIAN Appointment [facility] [address] [place] [address] [place] [address] [place] [address] Lorene Branch, INCLUSION INTERN 03/25/2024 9:15 AM METAPHYSICIAN Appointment [facility] [address] [place] [address] [place] [address] [place] [address] Lorene Branch, INCLUSION INTERN 04/21/2024 11:20 AM METAPHYSICIAN Office Visit [facility] - [place] [id number] [place] [phone] Holger Soriano, TYLER [address] [place] [address] Scheduled Procedures Name Priority Associated Diagnoses Date/Ti me MANIPULATION SHOULDER Adhesive capsulitis of left shoulder 03/02/2024 12:27 PM METAPHYSICIAN INJECTION JOINT Adhesive capsulitis of left shoulder 03/02/2024 12:27 PM METAPHYSICIAN documented as of this encounter Procedures Procedure Name Priority Date/Time Associated Diagnosis Comments MRI HUMERUS LT WO CON CHELE 06/04/2023 4:36 PM CDT Strain of left biceps, initial encounter Tendinopathy of left biceps tendon documented in this encounter Results * MRI HUMERUS LT WO CON (06/04/2023 4:36 PM CDT) Anatomical Region Laterality Modality Humerus Magnetic Resonan ce 06/05/2023 7:34 AM CDT Impressions 06/05/2023 7:42 AM CDT IMPRESSION: 1. ?? No convincing evidence of biceps origin or insertion tear. No abnormal fluid collection or stranding along the course of the muscle, no atrophy, or significant soft tissue swelling. 2. ??Glenohumeral joint effusion at the edge of the [id number]. This examination is not a detailed evaluation of the shoulder or elbow. Ordered By: MARV QUIROGA Interpreted By: Bonilla See, 06/05/2023 7:34 AM Narrative 06/05/2023 7:42 AM CDT EXAMINATION: MRI LEFT HUMERUS WITHOUT CONTRAST EXAM DATE: 06/04/2023 3:32 PM REASON FOR EXAM: ??Arm pain, biceps tendon pathology. ?? COMPARISON: Radiographs 05/29/23 TECHNIQUE: Multiplanar multisequence imaging without intravenous contrast of the left upper extremity. FINDINGS: At the edge of the [id number], there is a joint effusion of the glenohumeral joint. No significant soft tissue swelling in the arm. No lymphadenopathy or abnormal fluid collection or mass. Long and short heads of the biceps. Intact at the origin. Biceps tendon appears intact at the insertion of both insertion is obscured at the edge of the field of view. No obvious biceps tear. No significant soft tissue swelling or bursitis along the biceps. No clear evidence of muscular atrophy. No other evidence of abnormal muscular signal. No obvious nerve impingement in the arm. No marrow signal abnormality. Joints are not well evaluated on this examination primarily designed to evaluate the soft tissue contents of the arm. Procedure Note Bonilla See MD - 06/05/2023 EXAMINATION: MRI LEFT HUMERUS WITHOUT CONTRAST EXAM DATE: 06/04/2023 3:32 PM REASON FOR EXAM: Arm pain, biceps tendon pathology. COMPARISON: Radiographs 05/29/23 TECHNIQUE: Multiplanar multisequence imaging without intravenous contrastof the left upper extremity. FINDINGS: At the edge of the yfuvo-jl-hzrv, there is a joint effusion of theglenohumeral joint. No significant soft tissue swelling in the arm. No lymphadenopathy orabnormal fluid collection or mass. Long and short heads of the biceps. Intact at the origin. Biceps tendonappears intact at the insertion of both insertion is obscured at the edgeof the field of view. No obvious biceps tear. No significant soft tissueswelling or bursitis along the biceps. No clear evidence of muscular atrophy. No other evidence of abnormal muscular signal. No obvious nerveimpingement in the arm. No marrow signal abnormality. Joints are not well evaluated on this examination primarily designed toevaluate the soft tissue contents of the arm. IMPRESSION: 1. No convincing evidence of biceps origin or insertion tear. Noabnormal fluid collection or stranding along the course of the muscle, noatrophy, or significant soft tissue swelling. 2. Glenohumeral joint effusion at the edge of the [id number]-vm-vvnj. Thisexamination is not a detailed evaluation of the shoulder or elbow. Ordered By: MARV QUIROGA Interpreted By: Bonilla See, 06/05/2023 7:34 AM Marv Quiroga NP MRI Final Result documented in this encounter Visit Diagnoses Diagnosis Strain of left biceps, initial encounter Tendinopathy of left biceps tendon Adhesive capsulitis of left shoulder Adhesive capsulitis of shoulder documented in this encounter Additional Health Concerns Assessment Noted Time PHQ-9 Depression Total Score: 5 03/18/19 24 2:22 PM METAPHYSICIAN documented as of this encounter Care Teams Assistant Paralegal Relationship Specialty Start Date End Date Marv Quiroga NP PCP - General NURSE [facility]ACTITIONER [facility]ULT [facility] 03/11/23 09/14/23 documented as of this encounter
--- OUTSIDE RECORDS SUMMARY | 2024-02-12 03:31 | XMS_ITS | Encounter Summary ---
Author Organization [facility] Address [facility] [place] [address] [place] [address] Care Team Providers Care Machinist Brake Name Role Phone Marv Young SAND SHOVELER Primary Care Provide r Reason for Visit * Reason Comments Follow Up Encounter Details Date Type Department Care Team (Late st Contact Info) Description 05/16/2023 2:20 PM CDT Office Visit [facility] Family & Internal Medicine [address] [phone] Marv Young, SAND SHOVELER [address] [place] [address] [place] [address] Follow Up Social History Tobacco [...] Sign Reading Time Taken Comments Blood Pressure 142/83 05/16/2023 2:34 PM CDT Pulse 88 05/16/2023 2:28 PM CDT Temperature 36.5 ??C (97.7 ??F) 05/16/2023 2:28 PM CD T Respiratory Rate 18 05/16/2023 2:28 PM CDT Oxygen Saturation 99% 05/16/2023 2:28 PM CDT Inhaled Oxygen Concentration - - Weight 85.7 kg (189 lb) 05/16/2023 2:28 PM CDT Height 157.5 cm (5' 2 ) 05/16/2023 2:28 PM CDT Body Mass Index 34.57 05/16/2023 2:28 PM CDT documented in this encounter Progress Notes * Jasiel Barber RN - 05/16/2023 2:20 PM CDTAddended by: JASIEL BARBER on: 05/23/2023 12:24 PM Modules accepted: Orders * Marv Young NP - 05/16/2023 2:20 PM CDT Images from the original note were not included. _ Reason for Visit: Follow Up History of Present Illness: Oumou Middleton is a 47-year-old female here for evaluation through the walk in clinic for symptoms of possible strain of left bicep. Per patient, a few days ago she was playing with her dogs rope toy letting the dog pull back and forth. Patients arm extended out to throw rope and dog bit down on toy pulling the toy in opposite direction of where patient was throwing rope toy. Causing the bicep to strain. Patient has been unable to twist jar lids off, lift anything over 10lbs in her left arm, and when she feels the bicep in her arm it is very tender to touch. No bruising noted. ROS: Review of Systems Constitutional: Negative. HENT: Negative. Eyes: Negative. Respiratory: Negative. Cardiovascular: Negative. Gastrointestinal: Negative. Endocrine: Negative. Genitourinary: Negative. Musculoskeletal: Positive for myalgias. Allergic/Immunologic: Negative. Neurological: Negative. Hematological: Negative. Psychiatric/Behavioral: Negative. Feeling ill. Denies headaches, vision or hearing problems. Denies dysphagia, heartburn or indigestion. No dyspnea or chest pain on exertion. No nausea, abdominal pain, change in bowel habits, black or bloody stools. No urinary tract symptoms. No muscle or joint aches or pains. No foot or leg edema.No numbness, tingling,or weakness. No anxiety or depressive symptoms, Sleeping well. No significantweight gain or loss. Positive fatigue. Medications: Outpatient Medications Marked as Taking for the 05/16/23 encounter (Office Visit) with Marv Young NP Medication Sig Dispense Refill acetaminophen (TYLENOL) 325 MG tablet PLEASE SEE ATTACHED FOR DETAILED DIRECTIONS albuterol sulfate HFA 108 (90 Base) MCG/ACT [...] 1 tablet (5 mg total) by mouth 3 (three) times daily asneeded for Muscle Spasms. 30 tablet 0 DULoxetine (CYMBALTA) 30 MG capsule Take 1 capsule (30 mg total) by mouth 2 (two) times daily. 60 capsule 2 estradiol (ESTRACE) 2 MG tablet Take 1 tablet (2 mg total) by mouth daily. 28 tablet 2 famotidine (PEPCID) 20 MG tablet Take 1 tab by mouth every morning. 90 tablet 1 fluticasone propionate (FLONASE) 50 MCG/ACT nasal spray 2 sprays by Each Nostril route daily. SHAKELIQUID ibuprofen (MOTRIN) 600 MG tablet Take 1 tablet (600 mg total) by mouth every 6 (six) hours as needed. naproxen (NAPROSYN) 500 MG tablet Take 1 tablet (500 mg total) by mouth 2 (two) times daily with meals. 60 tablet 0 OZEMPIC 1 mg/dose injection (PEN) INJECT 1 MG UNDER THE SKIN ONCE WEEKLY FOR THE NEXT 12 WEEKS progesterone (PROMETRIUM) 100 MG capsule Take 1 capsule (100 mg total) by mouth daily. 30 capsule 2 QUEtiapine (SEROQUEL) 100 MG tablet Take 1 tablet (100 mg total) by mouth nightly at bedtime. 90 tablet 0 semaglutide (OZEMPIC) 1 mg/dose injection (PEN) Inject 1 mg into the skin once a week for 84 days. 3 mL 2 SUMAtriptan (IMITREX) 25 MG tablet Take 1 tablet (25 mg total) by mouth daily as needed for Migraine. Max of 8 tablets (200 mg) in a 24 hour period. 30 tablet 2 Allergies Allergen Reactions Parada Anaphylaxis Iodine Rash, Hives and Other (see comment) Reaction: Hives, Iodinated Contrast Media Unknown Itching Ranitidine Unknown Risperidone Other (see comment) Reaction: OTHER REACTION Past Medical History: Diagnosis Date ADHD History reviewed. No pertinent surgical history. Social History Tobacco Use Smoking status: Former Types: Cigarettes Quit date: 03/18/2023 Years since quittin.1 Passive exposure: Current Smokeless tobacco: Never Vaping Use Vaping Use: Never used Substance Use Topics Alcohol use: Yes Drug use: Never Family History Problem Relation Name Age of Onset Dementia Mother Endometriosis Sister Dementia Maternal Grandmother Family Status Relation Name Status Mother (Not Specified) Sister (Not Specified) MGM (Not Specified) Physical Exam: Physical Exam Vitals and nursing note reviewed. Constitutional: Appearance: Normal appearance. HENT: Head: Normocephalic. Right Ear: Tympanic membrane, external ear and ear canal normal. Left Ear: Tympanic membrane, external ear and ear canal normal. Nose: Nose normal. Mouth/Throat: Mucous membranes are moist. Oropharynx is clear. Eyes: Pupils: Pupils are equal, round, and reactive to light. Cardiovascular: Rate and Rhythm: Normal rate and regular rhythm. Pulses: Normal pulses. Heart sounds: Normal heart sounds. Pulmonary: Effort: Pulmonary effort is normal. Breath sounds: Normal breath sounds. Abdominal: General: Bowel sounds are normal. Palpations: Abdomen is soft. Musculoskeletal: General: Tenderness present. Comments: Swelling left bicep. No bruising. Skin: General: Skin is warm and dry. Neurological: General: No focal deficit present. Mental Status: She is alert and oriented to person, place, and time. Mental status is at baseline. Psychiatric: Mood and Affect: Mood normal. Behavior: Behavior normal. Thought Content: Thought content normal. Judgment: Judgment normal. No data to display Vitals: 05/16/23 1428 05/16/23 1434 BP: (!) 156/93 (!) 142/83 Pulse: 88 Body mass index is 34.57 kg/m??. Assessment and Plan Omuou was seen today for acute bicep strain. Empty can test negative, Hook Test negative for distal bicep tear. Patient likely has a severe strain of the bicep muscle. I will go ahead and give patient naproxen 500 mg twice daily and cyclobenzaprine 5 mg 3 times daily. Patient has been advised to alternate ice and heat applied to left bicep. Ultrasound ordered to see if bicep is torn. Diagnoses and all orders for this visit: Chronic left shoulder pain Tendinopathy of left biceps tendon - US UP EXT NONVASC COMP LT; Future - naproxen (NAPROSYN) 500 MG tablet; Take 1 tablet (500 mg total) by mouth 2 (two) times daily withmeals. - cyclobenzaprine (FLEXERIL) 5 MG tablet; Take 1 tablet (5 mg total) by mouth 3 (three) times dailyas needed for Muscle Spasms. Strain of left biceps, initial encounter - US UP EXT NONVASC COMP LT; Future - naproxen (NAPROSYN) 500 MG tablet; Take 1 tablet (500 mg total) by mouth 2 (two) times daily withmeals. - cyclobenzaprine (FLEXERIL) 5 MG tablet; Take 1 tablet (5 mg total) by mouth 3 (three) times dailyas needed for Muscle Spasms. documented in this encounter Plan of Treatment Upcoming Encounters Date Type Department Care Team (Late st Contact Info) Description 02/12/2024 9:00 AM TAXI SERVICER Appointment [facility] Outpatient Rehab [address] [place] [address] [place] [address] [place] [address] [place] [address] [place] [address] 02/12/2024 2:00 PM TAXI SERVICER Appointment [facility] [address] [place] [address] [place] [address] [place] [address] 02/16/2024 9:00 AM TAXI SERVICER Appointment [facility]hab [address] [place] [address] [place] [address] [place] [address] [place] [address] [place] [address] 02/19/2024 8:45 AM TAXI SERVICER Appointment [facility]hab [address] [place] [address] [place] [address] [place] [address] [place] [address] [place] [address] 02/19/2024 9:00 AM TAXI SERVICER Appointment [facility] [address] [place] [address] [place] [address] [place] [address] [place] [address] [place] [address] 02/23/2024 9:00 AM TAXI SERVICER Appointment [facility] [address] [place] [address] [place] [address] [place] [address] [place] [address] [place] [address] 02/24/2024 1:30 PM TAXI SERVICER Appointment [facility] [address] [place] [address] [place] [address] [place] [address] 02/26/2024 9:00 AM TAXI SERVICER Appointment [facility] [address] [place] [address] [place] [address] [place] [address] [place] [address] [place] [address] 02/26/2024 9:15 AM TAXI SERVICER Appointment [facility] [address] [place] [address] [place] [address] [place] [address] [place] [address] [place] [address] 03/01/2024 9:00 AM TAXI SERVICER Appointment [facility] [address] [place] [address] [place] [address] [place] [address] [place] [address] [place] [address] Lorene Branch, CLIENT ADMINISTRATOR 03/02/2024 12:27 PM TAXI SERVICER Hospital Encounter [facility] [address] [place] [address] [place] [address] [place] [address] 03/02/2024 12:27 PM TAXI SERVICER - 03/02/2024 1:07 PM TAXI SERVICER Surgery [facility] [address] [place] [address] [place] [address] [place] [address] MANIPULATION SHOULDER 03/05/2024 9:00 AM TAXI SERVICER Appointment [facility] [address] [place] [address] [place] [address] [place] [address] Lorene Branch, CLIENT ADMINISTRATOR 03/08/2024 9:00 AM TAXI SERVICER Appointment [facility] [address] [place] [address] [place] [address] [place] [address] Lorene Branch, CLIENT ADMINISTRATOR 03/11/2024 9:15 AM TAXI SERVICER Appointment [facility] [address] [place] [address] [place] [address] [place] [address] Lorene Branch, CLIENT ADMINISTRATOR 03/15/2024 9:00 AM TAXI SERVICER Appointment [facility] [address] [place] [address] [place] [address] [place] [address] Lorene Branch, CLIENT ADMINISTRATOR 03/18/2024 9:15 AM TAXI SERVICER Appointment [facility] [address] [place] [address] [place] [address] [place] [address] Lorene Branch, CLIENT ADMINISTRATOR 03/22/2024 9:00 AM TAXI SERVICER Appointment [facility] [address] [place] [address] [place] [address] [place] [address] Lorene Branch, CLIENT ADMINISTRATOR 03/25/2024 9:15 AM TAXI SERVICER Appointment [facility] [address] [place] [address] [place] [address] [place] [address] Lorene Branch, CLIENT ADMINISTRATOR 04/21/2024 11:20 AM TAXI SERVICER Office Visit [facility] Family & Internal Medicine - [address] [phone] [place] [address] [place] [address] Scheduled Procedures Name Priority Associated Diagnoses Date/Ti me MANIPULATION SHOULDER Adhesive capsulitis of left shoulder 03/02/2024 12:27 PM TAXI SERVICER INJECTION JOINT Adhesive capsulitis of left shoulder 03/02/2024 12:27 PM TAXI SERVICER documented as of this encounter Visit Diagnoses Diagnosis Chronic left shoulder pain- Primary Pain in joint, shoulder region Tendinopathy of left biceps tendon Strain of left biceps, initial encounter Adhesive capsulitis of left shoulder Adhesive capsulitis of shoulder documented in this encounter Additional Health Concerns Assessment Noted Time PHQ-9 Depression Total Score: 5 03/18/19 2:22 PM TAXI SERVICER documented as of this encounter Care Teams Machinist Brake Relationship Specialty Start Date End Date Marv Young NP PCP - General NURSE [facility] 03/11/23 09/14/23 documented as of this encounter
--- OUTSIDE RECORDS SUMMARY | 2024-02-12 03:31 | XMS_ITS | Encounter Summary ---
Author Organization [facility] Address [facility] [place] [address] [place] [address] Care Team Providers Care Research Chemical Engineer Name Role Phone Marv Young NP Primary Care Provide r Encounter Details Date Type Department Care Team (Latest Contact Info) Description 06/11/2023 Travel Social History Tobacco Use Types Packs/Day [...] st Contact Info) Description 02/12/2024 9:00 AM SKATESMAN Appointment [facility] Outpatient Rehab [address] [place] [address] [place] [address] [place] [address] [place] [address] [place] [address] 02/12/2024 2:00 PM SKATESMAN Appointment [facility] MRI [address] [place] [address] [place] [address] [place] [address] 02/16/2024 9:00 AM SKATESMAN Appointment [facility] Outpatient Rehab [address] [place] [address] [place] [address] [place] [address] [place] [address] [place] [address] 02/19/2024 8:45 AM SKATESMAN Appointment [facility] Outpatient Rehab [address] [place] [address] [place] [address] [place] [address] [place] [address] [place] [address] 02/19/2024 9:00 AM SKATESMAN Appointment [facility] Outpatient Rehab [address] [place] [address] [place] [address] [place] [address] [place] [address] [place] [address] 02/23/2024 9:00 AM SKATESMAN Appointment [facility] Outpatient Rehab [address] [place] [address] [place] [address] [place] [address] [place] [address] [place] [address] 02/24/2024 1:30 PM SKATESMAN Appointment [facility] [address] [place] [address] [place] [address] [place] [address] 02/26/2024 9:00 AM SKATESMAN Appointment [facility] Outpatient Rehab [address] [place] [address] [place] [address] [place] [address] [place] [address] [place] [address] 02/26/2024 9:15 AM SKATESMAN Appointment [facility] Outpatient Rehab [address] [place] [address] [place] [address] [place] [address] [place] [address] [place] [address] 03/01/2024 9:00 AM SKATESMAN Appointment [facility] Outpatient Rehab [address] [place] [address] [place] [address] [place] [address] [place] [address] [place] [address] Lorene Branch, LABOR ECONOMIST 03/02/2024 12:27 PM SKATESMAN Hospital Encounter [facility] Surgery [address] [place] [address] [place] [address] [place] [address] 03/02/2024 12:27 PM SKATESMAN - 03/02/2024 1:07 PM SKATESMAN Surgery [address] [address] [place] [address] [place] [address] MANIPULATION SHOULDER 03/05/2024 9:00 AM SKATESMAN Appointment [facility] Outpatient Rehab [address] [place] [address] [place] [address] [place] [address] Lorene Branch, LABOR ECONOMIST 03/08/2024 9:00 AM SKATESMAN Appointment [facility] Outpatient Rehab [address] [place] [address] [place] [address] [place] [address] Lorene Branch, LABOR ECONOMIST 03/11/2024 9:15 AM SKATESMAN Appointment [facility] Outpatient Rehab [address] [place] [address] [place] [address] [place] [address] Lorene Branch, LABOR ECONOMIST 03/15/2024 9:00 AM SKATESMAN Appointment [facility] [address] [place] [address] [place] [address] [place] [address] Lorene Branch, LABOR ECONOMIST 03/18/2024 9:15 AM SKATESMAN Appointment [facility] [address] [place] [address] [place] [address] [place] [address] Lorene Branch, LABOR ECONOMIST 03/22/2024 9:00 AM SKATESMAN Appointment [facility] [address] [place] [address] [place] [address] [place] [address] Lorene Branch, LABOR ECONOMIST 03/25/2024 9:15 AM SKATESMAN Appointment [facility] [address] [place] [address] [place] [address] [place] [address] Lorene Branch, LABOR ECONOMIST 04/21/2024 11:20 AM SKATESMAN Office Visit [facility] Family & Internal Medicine - [place] [address] [place] [address] [place] [address] [place] [address] Scheduled Procedures Name Priority Associated Diagnoses Date/Ti me MANIPULATION SHOULDER Adhesive capsulitis of left shoulder 03/02/2024 12:27 PM SKATESMAN INJECTION JOINT Adhesive capsulitis of left shoulder 03/02/2024 12:27 PM SKATESMAN documented as of this encounter Visit Diagnoses Not on filedocumented in this encounter Additional Health Concerns Assessment Noted Time PHQ-9 Depression Total Score: 5 03/18/19 2:22 PM SKATESMAN documented as of this encounter Care Teams Research Chemical Engineer Relationship Specialty Start Date End Date Marv Young NP PCP - General NURSE PRACTITIONER ADULT HEALTH 03/11/23 09/14/23 documented as of this encounter
--- OUTSIDE RECORDS SUMMARY | 2024-02-12 03:31 | XMS_ITS | Encounter Summary ---
Author Organization [facility] Address [facility]6 [facility] [place] [address] [place] [address] Care Team Providers Care Bowling Ball Assembler Name Role Phone Marv Young NP Primary Care Provide r Encounter Details Date Type Department Care Team (Latest Contact Info) Description 06/11/2023 Scan HEALTH INFO SRVCS Scanned, Doc Med [...] st Contact Info) Description 02/12/2024 9:00 AM LICENSED TAX CONSULTANT Appointment [facility] Outpatient Rehab [address] [place], [place] [id number] [place] [address] [place] [address] [place] [address] [place] [address] 02/12/2024 2:00 PM LICENSED TAX CONSULTANT Appointment [facility] MRI [address] [place] [address] [place] [address] [place] [address] 02/16/2024 9:00 AM LICENSED TAX CONSULTANT Appointment [facility] Outpatient Rehab [address] [place] [address] [place] [address] [place] [address] [place] [address] [place] [address] 02/19/2024 8:45 AM LICENSED TAX CONSULTANT Appointment [facility] Outpatient Rehab [address] [place] [address] [place] [address] [place] [address] [place] [address] [place] [address] 02/19/2024 9:00 AM LICENSED TAX CONSULTANT Appointment [facility] Outpatient Rehab [address] [place] [address] [place] [address] [place] [address] [place] [address] [place] [address] 02/23/2024 9:00 AM LICENSED TAX CONSULTANT Appointment [facility] Outpatient Rehab [address] [place] [address] [place] [address] [place] [address] [place] [address] [place] [address] 02/24/2024 1:30 PM LICENSED TAX CONSULTANT Appointment [facility] [address] [place] [address] [place] [address] [place] [address] 02/26/2024 9:00 AM LICENSED TAX CONSULTANT Appointment [facility] Outpatient Rehab [address] [place] [address] [place] [address] [place] [address] [place] [address] [place] [address] 02/26/2024 9:15 AM LICENSED TAX CONSULTANT Appointment [facility] Outpatient Rehab [address] [place] [address] [place] [address] [place] [address] [place] [address] [place] [address] 03/01/2024 9:00 AM LICENSED TAX CONSULTANT Appointment [facility] Outpatient Rehab [address] [place] [address] [place] [address] [place] [address] [place] [address] [place] [address] Lorene Branch, DELIVERY OF SHOPPING NEWS 03/02/2024 12:27 PM LICENSED TAX CONSULTANT Hospital Encounter [facility] [address] [place] [address] [place] [address] [place] [address] 03/02/2024 12:27 PM LICENSED TAX CONSULTANT - 03/02/2024 1:07 PM LICENSED TAX CONSULTANT Surgery [address] [address] [place] [address] [place] [address] MANIPULATION SHOULDER 03/05/2024 9:00 AM LICENSED TAX CONSULTANT Appointment [facility] Outpatient Rehab [address] [place] [address] [place] [address] [place] [address] Lorene Branch, DELIVERY OF SHOPPING NEWS 03/08/2024 9:00 AM LICENSED TAX CONSULTANT Appointment [facility] Outpatient Rehab [address] [place] [address] [place] [address] [place] [address] Lorene Branch, DELIVERY OF SHOPPING NEWS 03/11/2024 9:15 AM LICENSED TAX CONSULTANT Appointment [facility] Outpatient Rehab [address] [place] [address] [place] [address] [place] [address] Lorene Branch, DELIVERY OF SHOPPING NEWS 03/15/2024 9:00 AM LICENSED TAX CONSULTANT Appointment [facility] Outpatient Rehab [address] [place] [address] [place] [address] [place] [address] Lorene Branch, DELIVERY OF SHOPPING NEWS 03/18/2024 9:15 AM LICENSED TAX CONSULTANT Appointment [facility] Outpatient Rehab [address] [place] [address] [place] [address] [place] [address] Lorene Branch, DELIVERY OF SHOPPING NEWS 03/22/2024 9:00 AM LICENSED TAX CONSULTANT Appointment [facility] Outpatient Rehab [address] [place] [address] [place] [address] [place] [address] Lorene Branch, DELIVERY OF SHOPPING NEWS 03/25/2024 9:15 AM LICENSED TAX CONSULTANT Appointment [facility] Outpatient Rehab [address] [place] [address] [place] [address] [place] [address] Lorene Branch, DELIVERY OF SHOPPING NEWS 04/21/2024 11:20 AM LICENSED TAX CONSULTANT Office Visit [facility] Medical Group Family & Internal Medicine [address] [address] [place] [address] [place] [address] Scheduled Procedures Name Priority Associated Diagnoses Date/Ti me MANIPULATION SHOULDER Adhesive capsulitis of left shoulder 03/02/2024 12:27 PM LICENSED TAX CONSULTANT INJECTION JOINT Adhesive capsulitis of left shoulder 03/02/2024 12:27 PM LICENSED TAX CONSULTANT documented as of this encounter Visit Diagnoses Not on filedocumented in this encounter Additional Health Concerns Assessment Noted Time PHQ-9 Depression Total Score: 5 03/18/19 24 2:22 PM LICENSED TAX CONSULTANT documented as of this encounter Care Teams Bowling Ball Assembler Relationship Specialty Start Date End Date Marv Young NP PCP - General NURSE PRACTITIONER ADULT HEALTH 03/11/23 09/14/23 documented as of this encounter
--- OUTSIDE RECORDS SUMMARY | 2024-02-12 03:31 | XMS_ITS | Encounter Summary ---
Author Organization [facility] Address [facility]6 [facility] [place], [place] [address] [place] [address] Care Team Providers Care Pigment Pumper Name Role Phone Marv Young NP Primary Care Provide r Brennon Flores MD Primary Care Provider [phone] Holger Soriano Primary Care Provider [phone] Encounter Details Date Type Department Care Team (Late st Contact Info) Description 05/29/2023 Care Management [facility] Family & Internal Medicine [address] [address] Marv Young, GRACE [address] [place] [address] Dr. Cardozo [place] [phone] Social History Tobacco Use Types Packs/Day Years [...] st Contact Info) Description 02/12/2024 9:00 AM SHUTTLE BUS DRIVER Appointment [facility] Outpatient Rehab [address] [place] [address] [place] [address] [place] [address] [place] [address] [place] [address] 02/12/2024 2:00 PM SHUTTLE BUS DRIVER Appointment [facility] MRI [address] [place] [address] [place] [address] [place] [address] 02/16/2024 9:00 AM SHUTTLE BUS DRIVER Appointment [facility] Outpatient Rehab [address] [place] [address] [place] [address] [place] [address] [place] [address] [place] [address] 02/19/2024 8:45 AM SHUTTLE BUS DRIVER Appointment [facility] Outpatient Rehab [address] [place] [address] [place] [address] [place] [address] [place] [address] [place] [address] 02/19/2024 9:00 AM SHUTTLE BUS DRIVER Appointment [facility] Outpatient Rehab [address] [place] [address] [place] [address] [place] [address] [place] [address] [place] [address] 02/23/2024 9:00 AM SHUTTLE BUS DRIVER [facility]ment [facility] [address] [place] [address] [place] [address] [place] [address] [place] [address] [place] [address] 02/24/2024 1:30 PM SHUTTLE BUS DRIVER Appointment [address] [address] [place] [address] [place] [address] 02/26/2024 9:00 AM SHUTTLE BUS DRIVER Appointment [facility] Outpatient Rehab [address] [place] [address] [place] [address] [place] [address] [place] [address] [place] [address] 02/26/2024 9:15 AM SHUTTLE BUS DRIVER Appointment [facility] Outpatient Rehab [address] [place] [address] [place] [address] [place] [address] [place] [address] [place] [address] 03/01/2024 9:00 AM SHUTTLE BUS DRIVER Appointment [facility] Outpatient Rehab [address] [place] [address] [place] [address] [place] [address] [place] [address] [place] [address] Lorene Branch, CEMENT LOADER 03/02/2024 12:27 PM SHUTTLE BUS DRIVER Hospital Encounter [address] [address] [place] [address] [place] [address] 03/02/2024 12:27 PM SHUTTLE BUS DRIVER - 03/02/2024 1:07 PM [facility] Surgery [address] [address] [place] [address] [place] [address] MANIPULATION SHOULDER 03/05/2024 9:00 AM SHUTTLE BUS DRIVER Appointment [facility] Outpatient Rehab [address] [place] [address] [place] [address] [place] [address] Lorene Branch, CEMENT LOADER 03/08/2024 9:00 AM SHUTTLE BUS DRIVER Appointment [facility] Outpatient Rehab [address] [place] [address] [place] [address] [place] [address] Lorene Branch, CEMENT LOADER 03/11/2024 9:15 AM SHUTTLE BUS DRIVER Appointment [facility] Outpatient Rehab [address] [place] [address] [place] [address] [place] [address] Lorene Branch, CEMENT LOADER 03/15/2024 9:00 AM SHUTTLE BUS DRIVER Appointment [facility] Outpatient Rehab [address] [place] [address] [place] [address] [place] [address] Lorene Branch, CEMENT LOADER 03/18/2024 9:15 AM SHUTTLE BUS DRIVER Appointment [facility] Outpatient Rehab [address] [place] [address] [place] [address] [place] [address] Lorene Branch, CEMENT LOADER 03/22/2024 9:00 AM SHUTTLE BUS DRIVER Appointment [facility] Outpatient Rehab [address] [place] [address] [place] [address] [place] [address] Lorene Branch, CEMENT LOADER 03/25/2024 9:15 AM SHUTTLE BUS DRIVER Appointment [facility] Outpatient Rehab [address] [place] [address] [place] [address] [place] [address] Jose Carlos Lorene CAROLA Kennedy 04/21/2024 11:20 AM SHUTTLE BUS DRIVER Office Visit [facility] Family & Internal Medicine [facility] [address] [place] [address] [place] [address] [place] [address] Scheduled Procedures Name Priority Associated Diagnoses Date/Ti me MANIPULATION SHOULDER Adhesive capsulitis of left shoulder 03/02/2024 12:27 PM SHUTTLE BUS DRIVER INJECTION JOINT Adhesive capsulitis of left shoulder 03/02/2024 12:27 PM SHUTTLE BUS DRIVER documented as of this encounter Visit Diagnoses Diagnosis Strain of left biceps, initial encounter- Primary Adhesive capsulitis of left shoulder Adhesive capsulitis of shoulder documented in this encounter Additional Health Concerns Infection Onset Date Last Indicated Resolved Time COVID-19 Rule Out 10/17/2023 10/17/2023 10/17/2023 10:57 AM CDT COVID-19 Rule Out 12/29/2023 12/29/2023 12/29/2023 12:59 PM SHUTTLE BUS DRIVER Assessment Noted Time PHQ-9 Depression Total Score: 5 03/18/19 24 2:22 PM SHUTTLE BUS DRIVER documented as of this encounter Care Teams Pigment Pumper Relationship Specialty Start Date End Date Marv Young NP PCP - General NURSE PRACTITIONER ADULT HEALTH 03/11/23 09/14/23 [place] [id number] [address] PCP - General INTERNAL MEDICINE 09/15/23 09/15/23 [place] [address] [place] [address] PCP - General Physician Haul Truck Driver Medical 09/16/23 documented as of this encounter
--- OUTSIDE RECORDS SUMMARY | 2024-02-12 03:31 | XMS_ITS | Encounter Summary ---
Author Organization [facility] Address [facility] [place] [address] [place] [address] Care Team Providers Care Live Truck Technician Name Role Phone Marv Quiroga NP Primary Care Provide r Reason for Referral * Imaging (Urgent) - Closed Specialty Diagnoses / Procedures Referred By Contac t Referred To Contact RADIOLOGY Diagnoses Acute pain of left shoulder Procedures [place] [address] [place] [address] Phone: tel: fax: Referral ID Status Reason Start Date Expiration Date Visits Re quested Visits Authorized [id number] Closed 06/11/2023 07/10/2024 1 1 Reason for Visit * Reason Comments Pain Pt c/o left shoulder pain. Pt states she had serious fall on the ice in Feb Encounter Details Date Type Department Care Team (Late st Contact Info) Description 06/11/2023 3:00 PM CDT Office Visit [facility] Medical Group Family & Internal Medicine [facility] [address] [place] [address] [place] [address] [place] [address] Pain (Pt c/o left shoulder pain. Pt states she had serious fall on the ice in Feb) Social History Tobacco Use Types Packs/Day Years [...] Sign Reading Time Taken Comments Blood Pressure 157/97 06/11/2023 3:31 PM CDT Pulse 76 06/11/2023 3:19 PM CDT Temperature 36.9 ??C (98.5 ??F) 06/11/2023 3:19 PM CD T Respiratory Rate 18 06/11/2023 3:19 PM CDT Oxygen Saturation 97% 06/11/2023 3:19 PM CDT Inhaled Oxygen Concentration - - Weight 85.3 kg (188 lb) 06/11/2023 3:19 PM CDT Height 157.5 cm (5' 2 ) 06/11/2023 3:19 PM CDT Body Mass Index 34.39 06/11/2023 3:19 PM CDT documented in this encounter Patient Instructions * Patient Instructions* TYLER Weaver - 06/11/2023 3:00 PM CDT Ice, rest. No heat. Do not lift anything more than 2 lbs. documented in this encounter Progress Notes * TYLER Weaver - 06/11/2023 3:00 PM CDT Reason for Visit: Pain (Pt c/o left shoulder pain. Pt states she had serious fall on the ice in Feb) History of Present Illness: 47-year-old female complains of left shoulder pain has been going on since February where she fell on icy parking lot at work. Struck the back of her head has postconcussive syndrome currently with issues with memory. However her main complaint is left shoulder pain that has become severe since beengoing back to work. She has been having bouts of pain on and off since February. A MRI of the humerus only not the shoulder was done that did not show any definitive abnormality but did show effusion of the glenohumeral joint. The joint was not totally examined by the MRI. We will need to get further imaging of the MRI to rule out a rotator cuff tear. She been taking tramadol without any relief ofthe pain. She has not been on any steroids yet for the pain. Pain 10 out of 10, no numbness or tingling in the hand. Cannot extend shoulder or abduct shoulder greater than 60 degrees. Cannot rotate internally no overhead motion. Pain ROS: Review of Systems All other systems [...] Disp: 30 tablet, Rfl: 2 cyclobenzaprine (FLEXERIL) 5 MG tablet, Take 1 [...] with meals., Disp: 60 tablet, Rfl: 0 OZEMPIC 1 mg/dose injection (PEN), INJECT 1 MG UNDER THE SKIN ONCE WEEKLY FOR THE NEXT 12 WEEKS, Disp: , Rfl: predniSONE (DELTASONE) 20 MG tablet, Take 3 [...] AT BEDTIME., Disp: 90 tablet, Rfl: 0 SUMAtriptan (IMITREX) 25 MG tablet, [...] Rfl: 0 traZODone (DESYREL) 100 MG tablet, Take 1 tablet (100 mg total) by mouth nightly at bedtime., Disp:, Rfl: Allergies Allergen Reactions Parada Anaphylaxis Iodine Rash, Hives and Other (see comment) Reaction: Hives, Iodinated Contrast Media Unknown Itching Ranitidine Unknown Risperidone Other (see comment) Reaction: OTHER REACTION Past Medical History: Diagnosis Date ADHD Asthma ([facility]) COPD (chronic obstructive pulmonary disease) ([facility]) History reviewed. No pertinent surgical history. [...] Exam Vitals reviewed. Constitutional: Appearance: Normal appearance. Musculoskeletal: Comments: Left shoulder positive tenderness palpation over the anterior glenoid. Positive Yergason, very limited range of motion due to pain. 2+ radial pulse Lat. Cap refill less than 2 seconds bilateral. Neurological: Mental Status: She is alert. Filed Vitals: 06/11/23 1519 06/11/23 1531 BP: (!) 157/97 (!) 157/97 Pulse: 76 Resp: 18 Temp: 98.5 ??F (36.9 ??C) TempSrc: Core SpO2: 97% Weight: 85.3 kg (188 lb) Height: 1.575 m (5' 2 ) Diagnoses/Impression: 1. Chronic left shoulder pain MRI SHOULDER LT WO CON HYDROcodone-acetaminophen (NORCO) 5-325 MG tablet predniSONE (DELTASONE) 20 MG tablet Recommendations and Plan: Ice rest shoulder sling as needed but continue to try to move the shoulder around but do not lift or raise arm overhead or down exacerbating motions. Patient has appointment with Dr. Desmond Gama. Will get MRI of the shoulder and in this time. Hopefully before her appointment. Start steroidtaper and hydrocodone for pain as needed follow-up as needed Orders Placed This Encounter MRI SHOULDER LT WO CON traZODone (DESYREL) 100 MG tablet cyclobenzaprine (FLEXERIL) 5 MG tablet DULoxetine (CYMBALTA) 30 MG capsule HYDROcodone-acetaminophen (NORCO) 5-325 MG tablet predniSONE (DELTASONE) 20 MG tablet Reviewed and updated this visit by provider: TYLER WEAVER Referring Provider: No ref. provider found PCP: MARV QUIROGA, NEUROLOGY HOSPITALIST documented in this encounter Plan of Treatment Upcoming Encounters Date Type Department Care Team (Late st Contact Info) Description 02/12/2024 9:00 AM STOCK CHECKERER Appointment [facility] Outpatient Rehab [address] [place] [address] [place] [address] [place] [address] [place] [address] [place] [address] 02/12/2024 2:00 PM STOCK CHECKERER Appointment [facility] [place] [address] [place] [address] [place] [address] [place] [address] 02/16/2024 9:00 AM STOCK CHECKERER Appointment [facility] Outpatient Rehab [address] [place] [address] [place] [address] [place] [address] [place] [address] [place], [place] [id number] 02/19/2024 8:45 AM STOCK CHECKERER Appointment [facility] Outpatient Rehab [address] [place] [address] [place] [address] [place] [address] [place] [address] [place] [address] 02/19/2024 9:00 AM STOCK CHECKERER Appointment [facility] Outpatient Rehab [address] [place] [address] [place] [address] [place] [address] [place] [address] [place] [address] 02/23/2024 9:00 AM STOCK CHECKERER Appointment [facility] Outpatient Rehab [address] [place] [address] [place] [address] [place] [address] [place] [address] [place] [address] 02/24/2024 1:30 PM STOCK CHECKERER Appointment [facility] MRI [address] [place] [address] [place] [address] [place] [address] 02/26/2024 9:00 AM STOCK CHECKERER Appointment [facility] Outpatient Rehab [address] [place] [address] [place] [address] [place] [address] [place] [address] [place] [address] 02/26/2024 9:15 AM STOCK CHECKERER Appointment [facility] Outpatient Rehab [address] [place] [address] [place] [address] [place] [address] [place] [address] [place] [address] 03/01/2024 9:00 AM STOCK CHECKERER Appointment [facility] Outpatient Rehab [address] [place] [address] [place] [address] [place] [address] [place] [address] [place] [address] Lorene Branch, DIGITAL PROJECT COORDINATOR 03/02/2024 12:27 PM STOCK CHECKERER Hospital Encounter [address] [address] [place] [address] [place] [address] 03/02/2024 12:27 PM STOCK CHECKERER - 03/02/2024 1:07 PM STOCK CHECKERER Surgery [facility] Surgery [address] [place] [address] [place] [address] [place] [address] MANIPULATION SHOULDER 03/05/2024 9:00 AM STOCK CHECKERER Appointment [facility] Outpatient Rehab [address] [place] [address] [place] [address] [place] [address] Lorene Branch, DIGITAL PROJECT COORDINATOR 03/08/2024 9:00 AM STOCK CHECKERER Appointment [facility] Outpatient Rehab [address] [place] [address] [place] [address] [place] [address] Lorene Branch, DIGITAL PROJECT COORDINATOR 03/11/2024 9:15 AM STOCK CHECKERER Appointment [facility] Outpatient Rehab [address] [place] [address] [place] [address] [place] [address] Lorene Branch, DIGITAL PROJECT COORDINATOR 03/15/2024 9:00 AM STOCK CHECKERER Appointment [facility] Outpatient Rehab [address] [place] [address] [place] [address] [place] [address] Lorene Branch, DIGITAL PROJECT COORDINATOR 03/18/2024 9:15 AM STOCK CHECKERER Appointment [facility] Outpatient Rehab [address] [place] [address] [place] [address] [place] [address] Lorene Branch, DIGITAL PROJECT COORDINATOR 03/22/2024 9:00 AM STOCK CHECKERER Appointment [facility] Outpatient Rehab [address] [place] [address] [place] [address] [place] [address] Lorene Branch, DIGITAL PROJECT COORDINATOR 03/25/2024 9:15 AM STOCK CHECKERER Appointment [facility] Outpatient Rehab [address] [place] [address] Holger Soriano, TYLER [address] [place] [address] Lorene Branch, DIGITAL PROJECT COORDINATOR 04/21/2024 11:20 AM STOCK CHECKERER Office Visit [facility] Medical Group Family & Internal Medicine [facility] [address] [place] [id number] [place] [address] [place], [place] [phone] Scheduled Procedures Name Priority Associated Diagnoses Date/Ti me MANIPULATION SHOULDER Adhesive capsulitis of left shoulder 03/02/2024 12:27 PM STOCK CHECKERER INJECTION JOINT Adhesive capsulitis of left shoulder 03/02/2024 12:27 PM STOCK CHECKERER documented as of this encounter Results * MRI SHOULDER LT WO CON (06/18/2023 11:28 AM CDT) Anatomical Region Laterality Modality Shoulder Magnetic Resonan ce 06/18/2023 4:29 PM CDT Impressions 06/18/2023 4:31 PM CDT IMPRESSION: 1. ?? Findings concerning for cerebral minimal impingement including narrowing and mild bursitis. No clear evidence of rotator cuff or labral tear. 2. ??Mild glenohumeral joint effusion Ordered By: HOLGER SORIANO Interpreted By: Bonilla See, 06/18/2023 4:29 [...] 2. Mild glenohumeral joint effusion Ordered By: HOLGER SORIANO Interpreted By: Bonilla See, 06/18/2023 4:29 PM us Holger SCOTT MRI Final Result documented in this encounter Visit Diagnoses Diagnosis Chronic left shoulder pain- Primary Pain in joint, shoulder region Chronic left shoulder pain Pain in joint, shoulder region Adhesive capsulitis of left shoulder Adhesive capsulitis of shoulder documented in this encounter Additional Health Concerns Assessment Noted Time PHQ-9 Depression Total Score: 5 03/18/19 24 2:22 PM STOCK CHECKERER documented as of this encounter Care Teams Live Truck Technician Relationship Specialty Start Date End Date Marv Quiroga NP PCP - General NURSE PRACTITIONER ADULT HEALTH 03/11/23 09/14/23 documented as of this encounter
--- OUTSIDE RECORDS SUMMARY | 2024-02-12 03:31 | XMS_ITS | Encounter Summary ---
Author Organization [facility] Address [facility] [place] [address] [place] [address] Care Team Providers Care Machine Grinder Name Role Phone Marv Young NP Primary Care Provide r Encounter Details Date Type Department Care Team (Latest Contact Info) Description 06/09/2023 Scan HEALTH INFO SRVCS Scanned, Doc Med [...] st Contact Info) Description 02/12/2024 9:00 AM HIGH SCHOOL LEARNING SUPPORT TEACHER Appointment [facility] Outpatient Rehab [address] [place], [place] [id number] [place] [address] [place], [place] [address] [place] [address] [place] [address] 02/12/2024 2:00 PM HIGH SCHOOL LEARNING SUPPORT TEACHER Appointment [facility] [place] [address] [place] [address] [place] [address] [place] [address] 02/16/2024 9:00 AM HIGH SCHOOL LEARNING SUPPORT TEACHER Appointment [facility] Outpatient Rehab [address] [place] [address] [place] [address] [place] [address] [place] [address] [place] [address] 02/19/2024 8:45 AM HIGH SCHOOL LEARNING SUPPORT TEACHER Appointment [facility] Outpatient Rehab [address] [place] [address] [place] [address] [place] [address] [place] [address] [place] [address] 02/19/2024 9:00 AM HIGH SCHOOL LEARNING SUPPORT TEACHER Appointment [facility] Outpatient Rehab [address] [place] [address] [place] [address] [place] [address] [place] [address] [place] [address] 02/23/2024 9:00 AM HIGH SCHOOL LEARNING SUPPORT TEACHER Appointment [facility] Outpatient Rehab [address] [place] [address] [place] [address] [place] [address] [place] [address] [place] [address] 02/24/2024 1:30 PM HIGH SCHOOL LEARNING SUPPORT TEACHER Appointment [facility] [address] [place] [address] [place] [address] [place] [address] 02/26/2024 9:00 AM HIGH SCHOOL LEARNING SUPPORT TEACHER Appointment [facility] Outpatient Rehab [address] [place] [address] [place] [address] [place] [address] [place] [address] [place] [address] 02/26/2024 9:15 AM HIGH SCHOOL LEARNING SUPPORT TEACHER Appointment [facility] Outpatient Rehab [address] [place] [address] [place] [address] [place] [address] [place] [address] [place] [address] 03/01/2024 9:00 AM HIGH SCHOOL LEARNING SUPPORT TEACHER Appointment [facility] Outpatient Rehab [address] [place] [address] [place] [address] [place] [address] [place] [address] [place] [address] Lorene Branch, BONE PULLER 03/02/2024 12:27 PM HIGH SCHOOL LEARNING SUPPORT TEACHER Hospital Encounter [facility] [id number] [place] [address] [place] [address] [place] [address] 03/02/2024 12:27 PM HIGH SCHOOL LEARNING SUPPORT TEACHER - 03/02/2024 1:07 PM HIGH SCHOOL LEARNING SUPPORT TEACHER Surgery [address] [address] [place] [address] [place] [address] MANIPULATION SHOULDER 03/05/2024 9:00 AM HIGH SCHOOL LEARNING SUPPORT TEACHER Appointment [facility] Outpatient Rehab [address] [place] [address] [place] [address] [place] [address] Lorene Branch, BONE PULLER 03/08/2024 9:00 AM HIGH SCHOOL LEARNING SUPPORT TEACHER Appointment [facility] Outpatient Rehab [address] [place] [address] [place] [address] [place] [address] Lorene Branch, BONE PULLER 03/11/2024 9:15 AM HIGH SCHOOL LEARNING SUPPORT TEACHER Appointment [facility] Outpatient Rehab [address] [place] [address] [place] [address] [place] [address] Lorene Branch, BONE PULLER 03/15/2024 9:00 AM HIGH SCHOOL LEARNING SUPPORT TEACHER Appointment [facility] Outpatient Rehab [address] [place] [address] [place] [address] [place] [address] Lorene Branch, BONE PULLER 03/18/2024 9:15 AM HIGH SCHOOL LEARNING SUPPORT TEACHER Appointment [facility] Outpatient Rehab [address] [place] [address] [place] [address] [place] [address] Lorene Branch, BONE PULLER 03/22/2024 9:00 AM HIGH SCHOOL LEARNING SUPPORT TEACHER Appointment [facility] Outpatient Rehab [address] [place] [address] [place] [address] [place] [address] Lorene Branch, BONE PULLER 03/25/2024 9:15 AM HIGH SCHOOL LEARNING SUPPORT TEACHER Appointment [facility] Outpatient Rehab [address] [place] [address] [place] [address] [place] [address] Lorene Branch, BONE PULLER 04/21/2024 11:20 AM HIGH SCHOOL LEARNING SUPPORT TEACHER Office Visit [facility] Medical Group Family & Internal Medicine [address] [address] [place] [address] [place] [address] Scheduled Procedures Name Priority Associated Diagnoses Date/Ti me MANIPULATION SHOULDER Adhesive capsulitis of left shoulder 03/02/2024 12:27 PM HIGH SCHOOL LEARNING SUPPORT TEACHER INJECTION JOINT Adhesive capsulitis of left shoulder 03/02/2024 12:27 PM HIGH SCHOOL LEARNING SUPPORT TEACHER documented as of this encounter Visit Diagnoses Not on filedocumented in this encounter Additional Health Concerns Assessment Noted Time PHQ-9 Depression Total Score: 5 03/18/19 24 2:22 PM HIGH SCHOOL LEARNING SUPPORT TEACHER documented as of this encounter Care Teams Machine Grinder Relationship Specialty Start Date End Date Marv Young NP PCP - General NURSE PRACTITIONER ADULT HEALTH 03/11/23 09/14/23 documented as of this encounter
--- OUTSIDE RECORDS SUMMARY | 2024-02-12 03:31 | XMS_ITS | Encounter Summary ---
Author Organization [facility] Address [facility] [place] [address] [place] [address] Care Team Providers Care Stable Hand Name Role Phone Marv Young NP Primary Care Provide r Encounter Details Date Type Department Care Team (Late st Contact Info) Description 06/09/2023 Orders Only [facility] Medical Group Family & Internal Medicine [address] [address] Marv Young NP 6 [facility] [place] [address] Social History Tobacco Use Types [...] Notes * Marv Young NP - 06/09/2023 4:59 PM CDT Tramadol script per patient needed to be sent to [facility] in [place]. documented in this encounter Plan of Treatment Upcoming Encounters Date Type Department Care Team (Late st [facility] Info) Description 02/12/2024 9:00 AM CONSTRUCTION FIELD ENGINEER Appointment [facility] Outpatient Rehab [address] [place] [address] [place] [address] [place] [address] [place] [address] [place] [address] 02/12/2024 2:00 PM CONSTRUCTION FIELD ENGINEER Appointment [facility] MRI [address] [place] [address] [place] [address] [place] [address] 02/16/2024 9:00 AM CONSTRUCTION FIELD ENGINEER Appointment [facility] Outpatient Rehab [address] [place] [address] [place] [address] [place] [address] [place] [address] [place] [address] 02/19/2024 8:45 AM CONSTRUCTION FIELD ENGINEER Appointment [facility] Outpatient Rehab [address] [place] [address] [place] [address] [place] [address] [place] [address] [place] [address] 02/19/2024 9:00 AM CONSTRUCTION FIELD ENGINEER Appointment [facility] Outpatient Rehab [address] [place] [address] [place] [address] [place] [address] [place] [address] [place] [address] 02/23/2024 9:00 AM CONSTRUCTION FIELD ENGINEER Appointment [facility] Outpatient Rehab [address] [place] [address] [place] [address] [place] [address] [place] [address] [place] [address] 02/24/2024 1:30 PM CONSTRUCTION FIELD ENGINEER Appointment [facility] [address] [place] [address] Ihsan Logan, [address] [place] [address] 02/26/2024 9:00 AM CONSTRUCTION FIELD ENGINEER Appointment [facility] Outpatient Rehab [address] [place] [address] [place] [address] [place] [address] [place] [address] [place] [address] 02/26/2024 9:15 AM CONSTRUCTION FIELD ENGINEER Appointment [facility] Outpatient Rehab [address] [place] [address] [place] [address] [place] [address] [place] [address] [place] [address] 03/01/2024 9:00 AM CONSTRUCTION FIELD ENGINEER Appointment [facility] Outpatient Rehab [address] [place] [address] [place] [address] [place] [address] [place] [address] [place] [address] Lorene Branch, VP PRODUCTION 03/02/2024 12:27 PM CONSTRUCTION FIELD ENGINEER Hospital Encounter [facility] Surgery [address] [place] [address] [place] [address] [place] [address] 03/02/2024 12:27 PM CONSTRUCTION FIELD ENGINEER - 03/02/2024 1:07 PM CONSTRUCTION FIELD ENGINEER Surgery [facility] Surgery [address] [place] [address] [place] [address] [place] [address] MANIPULATION SHOULDER 03/05/2024 9:00 AM CONSTRUCTION FIELD ENGINEER Appointment [facility] Outpatient Rehab [address] [place] [address] [place] [address] [place] [address] Lorene Branch, VP PRODUCTION 03/08/2024 9:00 AM CONSTRUCTION FIELD ENGINEER Appointment [facility] Outpatient Rehab [address] [place] [address] [place] [address] [place] [address] Lorene Branch, VP PRODUCTION 03/11/2024 9:15 AM CONSTRUCTION FIELD ENGINEER Appointment [facility] Outpatient Rehab [address] [place] [address] [place] [address] [place] [address] Lorene Branch, VP PRODUCTION 03/15/2024 9:00 AM CONSTRUCTION FIELD ENGINEER Appointment [facility] Outpatient Rehab [address] [place] [address] [place] [address] [place] [address] Lorene Branch, VP PRODUCTION 03/18/2024 9:15 AM CONSTRUCTION FIELD ENGINEER Appointment [facility] Outpatient Rehab [address] [place] [address] [place] [address] [place] [address] Lorene Branch, VP PRODUCTION 03/22/2024 9:00 AM CONSTRUCTION FIELD ENGINEER Appointment [facility] Outpatient Rehab [address] [place] [address] [place] [address] [place] [address] Lorene Branch, VP PRODUCTION 03/25/2024 9:15 AM CONSTRUCTION FIELD ENGINEER Appointment [facility] Outpatient Rehab [address] [place] [address] [place] [address] [place] [address] Lorene Branch, VP PRODUCTION 04/21/2024 11:20 AM CONSTRUCTION FIELD ENGINEER Office Visit [facility] Medical Group Family & Internal Medicine [facility] [address] [place] [address] [place] [address] [place] [address] Scheduled Procedures Name Priority Associated Diagnoses Date/Ti me MANIPULATION SHOULDER Adhesive capsulitis of left shoulder 03/02/2024 12:27 PM CONSTRUCTION FIELD ENGINEER INJECTION JOINT Adhesive capsulitis of left shoulder 03/02/2024 12:27 PM CONSTRUCTION FIELD ENGINEER documented as of this encounter Visit Diagnoses Diagnosis Tendinopathy of left biceps tendon Muscle strain of left upper arm, sequela Adhesive capsulitis of left shoulder Adhesive capsulitis of shoulder documented in this encounter Additional Health Concerns Assessment Noted Time PHQ-9 Depression Total Score: 5 03/18/19 2:22 PM CONSTRUCTION FIELD ENGINEER documented as of this encounter Care Teams Stable Hand Relationship Specialty Start Date End Date Marv Young NP PCP - General NURSE PRACTITIONER ADULT HEALTH 03/11/23 09/14/23 documented as of this encounter
--- OUTSIDE RECORDS SUMMARY | 2024-02-12 03:31 | XMS_ITS | Encounter Summary ---
Author Organization [facility] Address [facility] [place] [place] [address] [place] [address] Care Team Providers Care Risk Tech Name Role Phone Marv Young PARTS COUNTER ASSOCIATE Primary Care Provide r Encounter Details Date Type Department Care Team (Late st Contact Info) Description 05/23/2023 Care Management [facility] Medical Group Family & Internal Medicine [address] [address] Marv Young, PARTS COUNTER ASSOCIATE [address] [facility] [place] [address] Social History Tobacco Use Types [...] st Contact Info) Description 02/12/2024 9:00 AM DISPATCHER RADIO Appointment [facility] [id number] [place] [address] [place] [address] [place] [address] [place] [address] [place] [address] 02/12/2024 2:00 PM DISPATCHER RADIO Appointment [facility] [place] [address] [place] [address] [place] [address] [place] [address] 02/16/2024 9:00 AM DISPATCHER RADIO Appointment [facility] [address] [place] [address] [place] [address] [place] [address] [place] [address] [place] [address] 02/19/2024 8:45 AM DISPATCHER RADIO Appointment [facility] [address] [place] [address] [place] [address] [place] [address] [place] [address] [place] [address] 02/19/2024 9:00 AM DISPATCHER RADIO Appointment [facility] [address] [place] [address] [place] [address] [place] [address] [place] [address] [place] [address] 02/23/2024 9:00 AM DISPATCHER RADIO Appointment [facility] [address] [place] [address] [place] [address] [place] [address] [place] [address] [place] [address] 02/24/2024 1:30 PM DISPATCHER RADIO Appointment [address] [address] [place], [address] [place] [address] 02/26/2024 9:00 AM DISPATCHER RADIO Appointment [facility] [address] [place] [address] [place] [address] [place] [address] [place] [address] [place] [address] 02/26/2024 9:15 AM DISPATCHER RADIO Appointment [facility] [address] [place] [address] [place] [address] [place] [address] [place] [address] [place] [address] 03/01/2024 9:00 AM DISPATCHER RADIO Appointment [facility] [address] [place] [address] [place] [address] [place] [address] [place] [address] [place] [address] Lorene Branch, LOAN OPERATIONS MANAGER 03/02/2024 12:27 PM DISPATCHER RADIO Hospital Encounter [facility] Surgery [address] [place] [address] [place] [address] [place] [address] 03/02/2024 12:27 PM DISPATCHER RADIO - 03/02/2024 1:07 PM DISPATCHER RADIO Surgery [facility] Surgery [address] [place] [address] [place] [address] [place] [address] MANIPULATION SHOULDER 03/05/2024 9:00 AM DISPATCHER RADIO Appointment [facility] [address] [place] [address] [place] [address] [place] [address] Lorene Branch, LOAN OPERATIONS MANAGER 03/08/2024 9:00 AM DISPATCHER RADIO Appointment [facility] [address] [place] [address] [place] [address] [place] [address] Lorene Branch, LOAN OPERATIONS MANAGER 03/11/2024 9:15 AM DISPATCHER RADIO Appointment [facility] [address] [place] [address] [place] [address] [place] [address] Lorene Branch, LOAN OPERATIONS MANAGER 03/15/2024 9:00 AM DISPATCHER RADIO Appointment [facility] [address] [place] [address] [place] [address] [place] [address] Lorene Branch, LOAN OPERATIONS MANAGER 03/18/2024 9:15 AM DISPATCHER RADIO Appointment [facility] [address] [place] [address] [place] [address] [place] [address] Lorene Branch, LOAN OPERATIONS MANAGER 03/22/2024 9:00 AM DISPATCHER RADIO Appointment [facility] [address] [place] [address] [place] [address] [place] [address] Lorene Branch, LOAN OPERATIONS MANAGER 03/25/2024 9:15 AM DISPATCHER RADIO Appointment [facility] [address] [place] [address] [place] [address] [place] [address] Jose Carlos Lorene Marcia, LOAN OPERATIONS MANAGER 04/21/2024 11:20 AM DISPATCHER RADIO Office Visit [facility] Medical Group Family & Internal Medicine [facility] [address] [place] [address] [place] [address] [place] [address] Scheduled Procedures Name Priority Associated Diagnoses Date/Ti me MANIPULATION SHOULDER Adhesive capsulitis of left shoulder 03/02/2024 12:27 PM DISPATCHER RADIO INJECTION JOINT Adhesive capsulitis of left shoulder 03/02/2024 12:27 PM DISPATCHER RADIO documented as of this encounter Visit Diagnoses Diagnosis Strain of left biceps, initial encounter- Primary Tendinopathy of left biceps tendon Chronic left shoulder pain Pain in joint, shoulder region Adhesive capsulitis of left shoulder Adhesive capsulitis of shoulder documented in this encounter Additional Health Concerns Assessment Noted Time PHQ-9 Depression Total Score: 5 03/18/19 2:22 PM DISPATCHER RADIO documented as of this encounter Care Teams Risk Tech Relationship Specialty Start Date End Date Marv Young NP PCP - General NURSE PRACTITIONER ADULT HEALTH 03/11/23 09/14/23 documented as of this encounter
--- OUTSIDE RECORDS SUMMARY | 2024-02-12 03:31 | XMS_ITS | Encounter Summary ---
Author Organization [facility] Address [facility]6 [facility] [place] [address] [place] [address] Care Team Providers Care Organ Recovery Coordinator Name Role Phone Jorge Quiroga NP Primary Care Provide r Reason for Referral * Imaging (Urgent) - Closed Specialty Diagnoses / Procedures Referred By Contteri t Referred To Contact RADIOLOGY Diagnoses Strain of left biceps, initial encounter Tendinopathy of left biceps tendon Procedures MRI HUMERUS LT WO CON Jorge Quiroga NP Phone: tel: fax: Referral ID Status Reason Start Date Expiration Date Visits Re quested Visits Authorized [id number] Closed 06/02/2023 06/01/2024 1 1 Reason for Visit * Reason Onset Date Comments Orders 05/26/2023 Encounter Details Date Type Department Care Team (Late st Contact Info) Description 05/26/2023 Telephone [facility] Medical Group Family & Internal Medicine [address] [address] Jorge Quiroga, GRACE [address] [place] [address] [place] [address] Orders Social History Tobacco Use Types Packs/Day [...] of this encounter Progress Notes * Clarice Barber RN - 06/02/2023 11:38 AM CDTAddended by: CLARICE BARBER on: 06/02/2023 11:38 AM Modules accepted: Orders * Alejandra Zamudio LPN - 05/27/2023 10:10 AM CDT I called pt informed order for Miguel has been sent Transferred to central scheduling * Clarice Barber RN - 05/26/2023 4:03 PM CDT Order has been entered. * Rand Galvez - 05/26/2023 3:[address] [facility] can get [facility] in on 06/12/2023 for MRI. Order will need to be changed to [place]. She is asking if this can be done soon as they can not hold the appointment time and will only schedule when they receive new order. documented in this encounter Plan of Treatment Upcoming Encounters Date Type Department Care Team (Late st Contact Info) Description 02/12/2024 9:00 AM METHODS ENGINEER Appointment [facility] [address] [place] [address] [place] [address] [place] [address] [place] [address] [place] [address] 02/12/2024 2:00 PM METHODS ENGINEER Appointment [facility] MRI [address] [place] [address] [place] [address] [place] [address] 02/16/2024 9:00 AM METHODS ENGINEER Appointment [facility] Outpatient Rehab [address] [place] [address] [place] [address] [place] [address] [place] [address] [place] [address] 02/19/2024 8:45 AM METHODS ENGINEER Appointment [facility] Outpatient Rehab [address] [place] [address] [place] [address] [place] [address] [place] [address] [place] [address] 02/19/2024 9:00 AM METHODS ENGINEER Appointment [facility] Outpatient Rehab [address] [place] [address] [place] [address] [place] [address] [place] [address] [place] [address] 02/23/2024 9:00 AM METHODS ENGINEER Appointment [facility]hab [address] [place] [address] [place] [address] [place] [address] [place] [address] [place] [address] 02/24/2024 1:30 PM METHODS ENGINEER Appointment [address] [address] [place] [address] [place] [address] 02/26/2024 9:00 AM METHODS ENGINEER Appointment [facility]patient [facility]hab [address] [place] [address] [place] [address] [place] [address] [place] [address] [place] [address] 02/26/2024 9:15 AM METHODS ENGINEER Appointment [facility]patient [facility]hab [address] [place] [address] [place] [address] [place] [address] [place] [address] [place] [address] 03/01/2024 9:00 AM METHODS ENGINEER Appointment [facility] Outpatient Rehab [address] [place] [address] [place] [address] [place] [address] [place] [address] [place] [address] Lorene Branch, PRESSURE TESTER 03/02/2024 12:27 PM METHODS ENGINEER Hospital Encounter [facility] Surgery [address] [place] [address] [place] [address] [place] [address] 03/02/2024 12:27 PM METHODS ENGINEER - 03/02/2024 1:07 PM METHODS ENGINEER Surgery [facility] Surgery [address] [place] [address] [place] [address] [place] [address] MANIPULATION SHOULDER 03/05/2024 9:00 AM METHODS ENGINEER Appointment [facility] Outpatient Rehab [address] [place] [address] [place] [address] [place] [address] Lorene Branch, PRESSURE TESTER 03/08/2024 9:00 AM METHODS ENGINEER Appointment [facility] Outpatient [facility]hab [address] [place] [address] [place] [address] [place] [address] Lorene Branch, PRESSURE TESTER 03/11/2024 9:15 AM METHODS ENGINEER Appointment [facility] Outpatient Rehab [address] [place] [address] [place] [address] [place] [address] Lorene Branch, PRESSURE TESTER 03/15/2024 9:00 AM METHODS ENGINEER Appointment [facility] Outpatient [facility]hab [address] [place] [address] [place] [address] [place] [address] Lorene Branch, PRESSURE TESTER 03/18/2024 9:15 AM METHODS ENGINEER Appointment [facility] Outpatient [facility]hab [address] [place] [address] [place] [address] [place] [address] Lorene Branch, PRESSURE TESTER 03/22/2024 9:00 AM METHODS ENGINEER Appointment [facility] Outpatient [facility]hab [address] [place] [address] [place] [address] [place] [address] Lorene Branch, PRESSURE TESTER 03/25/2024 9:15 AM METHODS ENGINEER Appointment [facility] Outpatient [facility]hab [address] [place] [address] [place] [address] [place] [address] Lorene Branch, CAROLA 04/21/2024 11:20 AM METHODS ENGINEER Office Visit [facility] Medical Group Family & Internal Medicine [facility] [address] [place] [address] [place] [address] [place], [place] [id number] Scheduled Procedures Name Priority Associated Diagnoses Date/Ti me MANIPULATION SHOULDER Adhesive capsulitis of left shoulder 03/02/2024 12:27 PM METHODS ENGINEER INJECTION JOINT Adhesive capsulitis of left shoulder 03/02/2024 12:27 PM METHODS ENGINEER documented as of this encounter Results * MRI HUMERUS LT [...] joint effusion at the edge of the [id number]-nk-kgav. This examination is not a detailed evaluation of the shoulder or elbow. Ordered By: JORGE QUIROGA Interpreted By: Bonilla See, 06/05/2023 7:34 AM Narrative 06/05/2023 7:42 AM CDT EXAMINATION: MRI LEFT HUMERUS WITHOUT CONTRAST EXAM DATE: 06/04/2023 3:32 PM REASON FOR EXAM: ??Arm pain, biceps tendon pathology. ?? COMPARISON: Radiographs 05/29/23 TECHNIQUE: Multiplanar multisequence imaging without intravenous contrast of the left upper extremity. FINDINGS: At the edge of the [id number]-[id number], there is a joint effusion of the [...] extremity. FINDINGS: At the edge of the ogklg-aj-rocp, there is a joint effusion of theglenohumeral [...] joint effusion at the edge of the sbxdp-qj-cdog. Thisexamination is not a detailed evaluation of the shoulder or elbow. Ordered By: JORGE QUIROGA Interpreted By: Bonilla See, 06/05/2023 7:34 AM Joreg Quiroga NP MRI Final Result documented in this encounter Visit Diagnoses Diagnosis Strain of left biceps, initial encounter- Primary Tendinopathy of left biceps tendon Strain of left biceps, initial encounter Tendinopathy of left biceps tendon Adhesive capsulitis of left shoulder Adhesive capsulitis of shoulder documented in this encounter Additional Health Concerns Assessment Noted Time PHQ-9 Depression Total Score: 5 03/18/19 24 2:22 PM METHODS ENGINEER documented as of this encounter Care Teams Organ Recovery Coordinator Relationship Specialty Start Date End Date Jorge Quiroga NP PCP - General NURSE PRACTITIONER ADULT HEALTH 03/11/23 09/14/23 documented as of this encounter
--- OUTSIDE RECORDS SUMMARY | 2024-02-12 03:31 | XMS_ITS | Encounter Summary ---
Author Organization [facility] Address [facility]6 [facility] [place] [address] [place] [address] Care Team Providers Care Director Of Staff Development Name Role Phone Marv Young PRINCIPAL SOFTWARE ENGINEER Primary Care Provide r Reason for Visit * Reason Onset Date Comments Medication 06/09/2023 Encounter Details Date Type Department Care Team (Late st Contact Info) Description 06/09/2023 Telephone [facility] Medical Group Family & Internal Medicine [facility] [address] [place] [address] Marv Young, PRINCIPAL SOFTWARE ENGINEER [address] [place] [address] [place] [address] Medication Social History Tobacco Use Types Packs/Day [...] Notes * Clarice Crooks RN - 06/09/2023 3:58 PM CDT PLEASE RESEND * Rand Galvez - 06/09/2023 3:52 PM CDT [facility] calling checking on medication. One medication went to [facility] and the other went to [facility]. She has now headed home to [place], can those medications be sent to [facility] in [place]. [facility]. Questions please call [facility]. documented in this encounter Plan of Treatment Upcoming Encounters Date Type Department Care Team (Late st Contact Info) Description 02/12/2024 9:00 AM NECKTIE MAKER Appointment [facility] [address] [place] [address] [place] [address] [place] [address] [place] [address] [place] [address] 02/12/2024 2:00 PM NECKTIE MAKER Appointment [facility] [address] [place] [address] [place] [address] [place] [address] 02/16/2024 9:00 AM NECKTIE MAKER Appointment [facility] [address] [place] [address] [place] [address] [place] [address] [place] [address] [place] [address] 02/19/2024 8:45 AM NECKTIE MAKER Appointment [facility] [address] [place] [address] [place] [address] [place] [address] [place] [address] [place] [address] 02/19/2024 9:00 AM NECKTIE MAKER Appointment [facility] [address] [place] [address] [place] [address] [place] [address] [place] [address] [place] [address] 02/23/2024 9:00 AM NECKTIE MAKER Appointment [facility] [address] [place] [address] [place] [address] [place] [address] [place] [address] [place] [address] 02/24/2024 1:30 PM NECKTIE MAKER Appointment [address] [address] [place] [address] [place] [address] 02/26/2024 9:00 AM NECKTIE MAKER Appointment [facility] [address] [place] [address] [place] [address] [place] [address] [place] [address] [place] [address] 02/26/2024 9:15 AM NECKTIE MAKER Appointment [facility] Outpatient Rehab [address] [place] [address] [place] [address] [place] [address] [place] [address] [place] [address] 03/01/2024 9:00 AM NECKTIE MAKER Appointment [facility]hab [address] [place] [address] [place] [address] [place] [address] [place] [address] [place] [address] Lorene Branch, BALANCE WHEEL ARM BURNISHER 03/02/2024 12:27 PM NECKTIE MAKER Hospital Encounter [address] [address] [place] [address] [place] [address] 03/02/2024 12:27 PM NECKTIE MAKER - 03/02/2024 1:07 PM NECKTIE MAKER Surgery [facility] Surgery [address] [place] [address] [place] [address] [place] [address] [place] [address] MANIPULATION SHOULDER 03/05/2024 9:00 AM NECKTIE MAKER Appointment [facility]hab [address] [place] [address] [place] [address] [place] [address] Lorene Branch, BALANCE WHEEL ARM BURNISHER 03/08/2024 9:00 AM NECKTIE MAKER Appointment [facility]patient [facility]hab [address] [place] [address] [place] [address] [place] [address] Lorene Branch, BALANCE WHEEL ARM BURNISHER 03/11/2024 9:15 AM NECKTIE MAKER Appointment [facility]patient Rehab [address] [place] [address] [place] [address] [place] [address] Lorene Branch, BALANCE WHEEL ARM BURNISHER 03/15/2024 9:00 AM NECKTIE MAKER Appointment [facility]patient [facility]hab [address] [place] [address] [place] [address] [place] [address] Lorene Branch, BALANCE WHEEL ARM BURNISHER 03/18/2024 9:15 AM NECKTIE MAKER Appointment [facility]hab [address] [place] [address] [place] [address] [place] [address] Lorene Branch, BALANCE WHEEL ARM BURNISHER 03/22/2024 9:00 AM NECKTIE MAKER Appointment [facility]hab [address] [place] [address] [place] [address] [place], [place] [id number] Jose Carlos Lorene L, BALANCE WHEEL ARM BURNISHER 03/25/2024 9:15 AM NECKTIE MAKER Appointment [facility]hab [address] [place] [address] [place] [address] [place] [address] Lorene Branch, BALANCE WHEEL ARM BURNISHER 04/21/2024 11:20 AM NECKTIE MAKER Office Visit [facility] Medical Group Family & Internal Medicine [facility] [address] [place] [address] [place] [address] [place] [address] Scheduled Procedures Name Priority Associated Diagnoses Date/Ti me MANIPULATION SHOULDER Adhesive capsulitis of left shoulder 03/02/2024 12:27 PM NECKTIE MAKER INJECTION JOINT Adhesive capsulitis of left shoulder 03/02/2024 12:27 PM NECKTIE MAKER documented as of this encounter Visit Diagnoses Not on filedocumented in this encounter Additional Health Concerns Assessment Noted Time PHQ-9 Depression Total Score: 5 03/18/19 24 2:22 PM NECKTIE MAKER documented as of this encounter Care Teams Director Of Staff Development Relationship Specialty Start Date End Date Marv Young NP PCP - General NURSE PRACTITIONER ADULT HEALTH 03/11/23 09/14/23 documented as of this encounter
--- OUTSIDE RECORDS SUMMARY | 2024-02-12 03:31 | XMS_ITS | Encounter Summary ---
Author Organization [facility] Address [facility] [place] [address] [place] [address] Care Team Providers Care Receptionist Doctor'S Office Name Role Phone Marv Young NP Primary Care Provide r Encounter Details Date Type Department Care Team (Latest Contact Info) Description 05/23/2023 Travel Social History Tobacco Use Types Packs/Day [...] st Contact Info) Description 02/12/2024 9:00 AM MEDICINE WORKER Appointment [facility] Outpatient Rehab [address] [place] [address] [place] [address] [place] [address] [place] [address] [place] [address] 02/12/2024 2:00 PM MEDICINE WORKER Appointment [facility] [place] [address] [place] [address] [place] [address] [place] [address] 02/16/2024 9:00 AM MEDICINE WORKER Appointment [facility] Outpatient Rehab [address] [place] [address] [place] [address] [place] [address] [place] [address] [place] [address] 02/19/2024 8:45 AM MEDICINE WORKER Appointment [facility] Outpatient Rehab [address] [place] [address] [place] [address] [place] [address] [place] [address] [place] [address] 02/19/2024 9:00 AM MEDICINE WORKER Appointment [facility] Outpatient Rehab [address] [place] [address] [place] [address] [place] [address] [place] [address] [place] [address] 02/23/2024 9:00 AM MEDICINE WORKER Appointment [facility] Outpatient Rehab [address] [place] [address] [place] [address] [place] [address] [place] [address] [place] [address] 02/24/2024 1:30 PM MEDICINE WORKER Appointment [facility] [address] [place] [address] [place] [address] [place] [address] 02/26/2024 9:00 AM MEDICINE WORKER Appointment [facility] Outpatient Rehab [address] [place] [address] [place] [address] [place] [address] [place] [address] [place] [address] 02/26/2024 9:15 AM MEDICINE WORKER Appointment [facility] Outpatient Rehab [address] [place] [address] [place] [address] [place] [address] [place] [address] [place] [address] 03/01/2024 9:00 AM MEDICINE WORKER Appointment [facility] Outpatient Rehab [address] [place] [address] [place] [address] [place] [address] [place] [address] [place] [address] Lorene Branch, INDEPENDENT CONTRACTOR 03/02/2024 12:27 PM MEDICINE WORKER Hospital Encounter [facility] Surgery [id number] [place] [address] [place] [address] [place] [address] 03/02/2024 12:27 PM MEDICINE WORKER - 03/02/2024 1:07 PM MEDICINE WORKER Surgery [address] [address] [place] [address] [place] [address] MANIPULATION SHOULDER 03/05/2024 9:00 AM MEDICINE WORKER Appointment [facility] Outpatient Rehab [address] [place] [address] [place] [address] [place] [address] Lorene Branch, INDEPENDENT CONTRACTOR 03/08/2024 9:00 AM MEDICINE WORKER Appointment [facility] Outpatient Rehab [address] [place] [address] [place] [address] [place] [address] Lorene Branch, INDEPENDENT CONTRACTOR 03/11/2024 9:15 AM MEDICINE WORKER Appointment [facility] Outpatient Rehab [address] [place] [address] [place] [address] [place] [address] Lorene Branch, INDEPENDENT CONTRACTOR 03/15/2024 9:00 AM MEDICINE WORKER Appointment [facility] [address] [place] [address] [place] [address] [place] [address] Lorene Branch, INDEPENDENT CONTRACTOR 03/18/2024 9:15 AM MEDICINE WORKER Appointment [facility] [address] [place] [address] [place] [address] [place] [address] Lorene Branch, INDEPENDENT CONTRACTOR 03/22/2024 9:00 AM MEDICINE WORKER Appointment [facility] [address] [place] [address] [place] [address] [place] [address] Lorene Branch, INDEPENDENT CONTRACTOR 03/25/2024 9:15 AM MEDICINE WORKER Appointment [facility] [address] [place] [address] [place] [address] [place] [address] Lorene Branch, INDEPENDENT CONTRACTOR 04/21/2024 11:20 AM MEDICINE WORKER Office Visit [facility] Family & Internal Medicine - [place] [address] [place] [address] [place] [address] [place] [address] Scheduled Procedures Name Priority Associated Diagnoses Date/Ti me MANIPULATION SHOULDER Adhesive capsulitis of left shoulder 03/02/2024 12:27 PM MEDICINE WORKER INJECTION JOINT Adhesive capsulitis of left shoulder 03/02/2024 12:27 PM MEDICINE WORKER documented as of this encounter Visit Diagnoses Not on filedocumented in this encounter Additional Health Concerns Assessment Noted Time PHQ-9 Depression Total Score: 5 03/18/19 2:22 PM MEDICINE WORKER documented as of this encounter Care Teams Receptionist Doctor'S Office Relationship Specialty Start Date End Date Marv Young NP PCP - General NURSE PRACTITIONER ADULT HEALTH 03/11/23 09/14/23 documented as of this encounter
--- OUTSIDE RECORDS SUMMARY | 2024-02-12 03:31 | XMS_ITS | Encounter Summary ---
Author Organization [facility] Address [facility] [place] [address] [place] [address] Care Team Providers Care Monorail Charger Operator Name Role Phone Marv Young BOBBIN CLEANER Primary Care Provide r Reason for Visit * Reason Onset Date Comments Medication Problem 07/01/2023 Encounter Details Date Type Department Care Team (Late st Contact Info) Description 07/01/2023 Telephone [facility] Family & Internal Medicine [facility] [address] [place] [address] Marv Young, BOBBIN CLEANER [address] [facility] [place] [address] Medication Problem Social History Tobacco Use Types Packs/Day Years [...] Progress Notes * Jasiel Barber RN - 07/04/2023 8:33 AM CDTAddended by: JASIEL BARBER on: 07/04/2023 08:33 AM Modules accepted: Orders * Jasiel Barber RN - 07/03/2023 2:37 PM CDT Called and spoke with patient-she indicates she can not afford the 2 mg of Ozempic and would like to go back to the 1 mg if possible. The pharmacy told her it put her on a new tier and it would be $400 instead of the $40. She also indicated her appointment with the orthopedic MD is 07/07/2023 * Alejandra Zamudio LPN - 07/03/2023 2:24 PM CDT Pt forgot about appt on 07/03/23 would the nurse call her back ozempic will cost pt $400 a month because of incrase to 2 mg Can not afford this please call back [phone] * Alvina Gross - 07/01/2023 8:54 AM CDT Patient called and stated that her insurance will on cover herOzempic 100 mg will cost her almost $400 dollars out of pocket. documented in this encounter Plan of Treatment Upcoming Encounters Date Type Department Care Team (Late st Contact Info) Description 02/12/2024 9:00 AM STATION MASTER Appointment [facility] Outpatient Rehab [address] [place] [address] [place] [address] [place], [place] [id number] [place] [address] [place], [place] [id number] 02/12/2024 2:00 PM STATION MASTER Appointment [facility] [address] [place] [address] [place] [address] [place] [address] 02/16/2024 9:00 AM STATION MASTER Appointment [facility] Outpatient Rehab [address] [place] [address] [place] [address] [place] [address] [place] [address] [place] [address] 02/19/2024 8:45 AM STATION MASTER Appointment [facility] Outpatient Rehab [address] [place] [address] [place] [address] [place] [address] [place] [address] [place] [address] 02/19/2024 9:00 AM STATION MASTER Appointment [facility] Outpatient Rehab [address] [place] [address] [place] [address] [place] [address] [place] [address] [place] [address] 02/23/2024 9:00 AM STATION MASTER Appointment [facility] Outpatient Rehab [address] [place] [address] [place] [address] [place] [address] [place] [address] [place] [address] 02/24/2024 1:30 PM STATION MASTER Appointment [facility] MRI [address] [place] [address] [place] [address] [place] [address] 02/26/2024 9:00 AM STATION MASTER Appointment [facility] Outpatient Rehab [address] [place] [address] [place] [address] [place] [address] [place] [address] [place] [address] 02/26/2024 9:15 AM STATION MASTER Appointment [facility] Outpatient Rehab [address] [place] [address] [place] [address] [place] [address] [place] [address] [place] [address] 03/01/2024 9:00 AM STATION MASTER Appointment [facility] Outpatient Rehab [address] [place] [address] [place] [address] [place] [address] [place] [address] [place] [address] Lorene Branch, OUTLET MANAGER 03/02/2024 12:27 PM STATION MASTER Hospital Encounter [facility] Surgery [address] [place] [address] [place] [address] [place] [address] 03/02/2024 12:27 PM STATION MASTER - 03/02/2024 1:07 PM STATION MASTER Surgery [address] [address] [place] [address] [place] [address] MANIPULATION SHOULDER 03/05/2024 9:00 AM STATION MASTER Appointment [facility] Outpatient Rehab [address] [place] [address] [place] [address] [place] [address] Lorene Branch, OUTLET MANAGER 03/08/2024 9:00 AM STATION MASTER Appointment [facility] Outpatient Rehab [address] [place] [address] [place] [address] [place] [address] Lorene Branch, OUTLET MANAGER 03/11/2024 9:15 AM STATION MASTER Appointment [facility] Outpatient Rehab [address] [place] [address] [place] [address] [place] [address] Lorene Branch, OUTLET MANAGER 03/15/2024 9:00 AM STATION MASTER Appointment [facility] Outpatient Rehab [address] [place] [address] [place] [address] [place] [address] Lorene Branch, OUTLET MANAGER 03/18/2024 9:15 AM STATION MASTER Appointment [facility] Outpatient Rehab [address] [place] [address] [place] [address] [place] [address] Lorene Branch, OUTLET MANAGER 03/22/2024 9:00 AM STATION MASTER Appointment [facility] Outpatient Rehab [address] [place] [address] [place] [address] [place] [address] Lorene Branch, OUTLET MANAGER 03/25/2024 9:15 AM STATION MASTER Appointment [facility] Outpatient Rehab [address] [place] [address] [place] [address] [place] [address] Lorene Branch, OUTLET MANAGER 04/21/2024 11:20 AM STATION MASTER Office Visit [facility] Family & Internal Medicine - [address] [address] [place] [address] [place] [address] Scheduled Procedures Name Priority Associated Diagnoses Date/Ti me MANIPULATION SHOULDER Adhesive capsulitis of left shoulder 03/02/2024 12:27 PM STATION MASTER INJECTION JOINT Adhesive capsulitis of left shoulder 03/02/2024 12:27 PM STATION MASTER documented as of this encounter Visit Diagnoses Diagnosis Type 2 diabetes mellitus without complication, with long-term current use of insulin ([facility])- Primary Adhesive capsulitis of left shoulder Adhesive capsulitis of shoulder documented in this encounter Additional Health Concerns Assessment Noted Time PHQ-9 Depression Total Score: 5 03/18/19 24 2:22 PM STATION MASTER documented as of this encounter Care Teams Monorail Charger Operator Relationship Specialty Start Date End Date Marv Young NP PCP - General NURSE PRACTITIONER ADULT HEALTH 03/11/23 09/14/23 documented as of this encounter
--- OUTSIDE RECORDS SUMMARY | 2024-02-12 03:31 | XMS_ITS | Encounter Summary ---
Author Organization [facility] Address [facility] [place] [address] [place] [address] Care Team Providers Care Waxed Bag Machine Operator Name Role Phone Marv Young MEDICAL ASSOCIATE Primary Care Provide r Reason for Visit * Reason Onset Date Comments MRI/CT Orders 06/02/2023 Encounter Details Date Type Department Care Team (Late st Contact Info) Description 06/02/2023 Telephone [facility] Family & Internal Medicine [address] [address] Marv Young, MEDICAL ASSOCIATE [address] [place] [address] [place] [address] MRI/CT Orders Social History Tobacco Use Types Packs/Day [...] Progress Notes * Nicolasa Phipps - 06/04/2023 1:38 PM CDT Pt called, stated that scheduling called her and the mix up with her MRI was fixed, told her that they could get her in for her MRI today 06/04/23 at 4pm. Pt states that she is on her way to do that. Pt also wanted to know if provider found an Orthopedic Surgeon for her since Dr. Morgan does not takeher insurance and can't keep her as a pt. * Clarice Crooks RN - 06/03/2023 9:08 AM CDT Called and spoke with patient. Informed of the situation indicated previously. Given the option of waiting until resolved per ict managers or going to [facility] to [facility]. States she went to the ER on 05/29/2023 and was given percocet (2) tablets and lidoderm patches 5 %-5% patches needed a PA so patient purchased the 4 % OTC patches. States did helped the pain somewhat to allow some sleep. States currently the Tramadol is not working. States she also seen Dr Kidd, orthopedist, but he was not in network so she needs referred to another orthopedic. Spoke to provider, informed of patients pain and updated on MRI issue. States he will order something else for pain once we know when the MRI is scheduled and will give her something to get to that point. Work excuse faxed as requested to [phone] kamla Gutierrez. * Clarice Crooks RN - 06/03/2023 8:38 AM CDT See notes below please. talent acquisition manager is trying to solve the situation. Will call patient and notify. Work note can be made. * Stacy Isaac - 06/03/2023 7:26 AM CDT Pt called checking status and she is needing to know what she needs to do please advise she does not want to do more damage to her arm. C/b # [phone] she also still needs to find an orthopedic surgeon that takes her insurnace as Dr Eli does not. Pt is angry that MRI was moved from the to the and it was placed as urgent does not make sense to her please advise. * Sanjuana Choi MA - 06/03/2023 7:19 AM CDT Advise? * Jen De Guzman - 06/02/2023 4:09 PM CDT Please contact patient as she needs to know if she is cleared to go to work tomorrow, or if she canhave a work excuse. Please contact patient. * Clarice Crooks RN - 06/02/2023 2:12 PM CDT talent acquisition manager is aware and is trying to rectify the issue. * Alejandra Zamudio LPN - 06/02/2023 1:55 PM CDT The 06/13/23 has already been given to another pt per yolis * Alejandra Zamudio LPN - 06/02/2023 12:53 PM CDT Pt called states that since the MRI was changed or canceled from 06/13/23 and put as urgent they rescheduled on the MRI 06/20/23 This makes no sense why later pt is very angry about this and request a call back * Rand Galvez - 06/02/2023 11:42 AM CDT Oumou calling the office, states she just received a text message from [facility] that her MRI has beencancelled 06/13/2023. She is wanting to make sure this is correct and wondering if this is going to be rescheduled sooner? She wanted to make sure the machine or computer did not mess up as she is really needing this done. # [phone] Oumou * Clarice Crooks RN - 06/02/2023 10:05 AM CDT Message sent to provider for advise. * Jen De Guzman - 06/02/2023 9:42 AM CDT Pt came by the clinic as she went to the orthopedic and they are stating that she might have a tornrotator cuff and she is in a lot of pain. She is scheduled for her MRI on 06/12 in [place]. Is there any possible way that we can have her Mri moved to a sooner appt. Please contact pt as thept has questions as when she is to return to work. documented in this encounter Plan of Treatment Upcoming Encounters Date Type Department Care Team (Late st Contact Info) Description 02/12/2024 9:00 AM COPY HOLDER Appointment [facility] Outpatient Rehab [address] [place], [place] [address] [place] [address] [place], [place] [address] [place] [address] [place] [id number] 02/12/2024 2:00 PM COPY HOLDER Appointment [facility] MRI [address] [place] [address] [place] [address] [place] [address] 02/16/2024 9:00 AM COPY HOLDER Appointment [facility] Outpatient Rehab [address] [place] [address] [place] [address] [place] [address] [place] [address] [place] [address] 02/19/2024 8:45 AM COPY HOLDER Appointment [facility] Outpatient Rehab [address] [place] [address] [place] [address] [place] [address] [place] [address] [place] [address] 02/19/2024 9:00 AM COPY HOLDER Appointment [facility] Outpatient Rehab [address] [place] [address] [place] [address] [place] [address] [place] [address] [place] [address] 02/23/2024 9:00 AM COPY HOLDER Appointment [facility] Outpatient Rehab [address] [place] [address] [place] [address] [place] [address] [place] [address] [place] [address] 02/24/2024 1:30 PM COPY HOLDER Appointment [address] [address] [place] [address] [place] [address] 02/26/2024 9:00 AM COPY HOLDER Appointment [facility] Outpatient Rehab [address] [place] [address] [place] [address] [place] [address] [place] [address] [place] [address] 02/26/2024 9:15 AM COPY HOLDER Appointment [facility] Outpatient Rehab [address] [place] [address] [place] [address] [place] [address] [place] [address] [place] [address] 03/01/2024 9:00 AM COPY HOLDER Appointment [facility] Outpatient Rehab [address] [place] [address] [place] [address] [place] [address] [place] [address] [place] [address] Lorene Branch, GLASS FINISHER 03/02/2024 12:27 PM COPY HOLDER Hospital Encounter [facility] [address] [place] [address] [place] [address] [place] [address] 03/02/2024 12:27 PM COPY HOLDER - 03/02/2024 1:07 PM COPY HOLDER Surgery [facility] Surgery [address] [place] [address] [place] [address] [place] [address] MANIPULATION SHOULDER 03/05/2024 9:00 AM COPY HOLDER Appointment [facility] Outpatient Rehab [address] [place] [address] [place] [address] [place] [address] Lorene Branch, GLASS FINISHER 03/08/2024 9:00 AM COPY HOLDER Appointment [facility] Outpatient Rehab [address] [place] [address] [place] [address] [place] [address] Lorene Branch, GLASS FINISHER 03/11/2024 9:15 AM COPY HOLDER Appointment [facility] Outpatient Rehab [address] [place] [address], [place] [address] [place] [address] [place] [address] Lorene Branch, GLASS FINISHER 03/15/2024 9:00 AM COPY HOLDER Appointment [facility] Outpatient Rehab [address] [place] [address] [place] [address] [place] [address] Lorene Branch, GLASS FINISHER 03/18/2024 9:15 AM COPY HOLDER Appointment [facility] Outpatient Rehab [address] [place] [address] [place] [address] [place] [address] Lorene Branch, GLASS FINISHER 03/22/2024 9:00 AM COPY HOLDER Appointment [facility] Outpatient Rehab [address] [place] [address] [place] [address] [place] [address] Lorene Branch, GLASS FINISHER 03/25/2024 9:15 AM COPY HOLDER Appointment [facility] Outpatient Rehab [address] [place] [address] [place] [address] [place] [address] Lorene Branch, GLASS FINISHER 04/21/2024 11:20 AM COPY HOLDER Office Visit [facility] Family & Internal Medicine [facility] [address] [place] [address] [place] [address] [place] [address] Scheduled Procedures Name Priority Associated Diagnoses Date/Ti me MANIPULATION SHOULDER Adhesive capsulitis of left shoulder 03/02/2024 12:27 PM COPY HOLDER INJECTION JOINT Adhesive capsulitis of left shoulder 03/02/2024 12:27 PM COPY HOLDER documented as of this encounter Visit Diagnoses Not on filedocumented in this encounter Additional Health Concerns Assessment Noted Time PHQ-9 Depression Total Score: 5 03/18/19 24 2:22 PM COPY HOLDER documented as of this encounter Care Teams Waxed Bag Machine Operator Relationship Specialty Start Date End Date Marv Young NP PCP - General NURSE PRACTITIONER ADULT HEALTH 03/11/23 09/14/23 documented as of this encounter
--- OUTSIDE RECORDS SUMMARY | 2024-02-12 03:31 | XMS_ITS | Encounter Summary ---
Author Organization [facility] Address [facility]. [place], [place] [address] [place] [address] Care Team Providers Care Slipman Name Role Phone Marv Young NP Primary Care Provide r Reason for Referral * Consultation (Urgent) - Authorized Specialty Diagnoses / Procedures Referred By Contact Referred To Contact ORTHOPAEDICS / ORTHOPAEDICS SURGERY Diagnoses Pain in left arm Procedures OFFICE/OUTPATIENT NEW LOW MDM 30-44 MINUTES OFFICE/OUTPT VISIT,NEW,LEVL IV OFFICE/OUTPT VISIT,NEW,LEVL V OFFICE/OUTPT VISIT,EST,LEVL III OFFICE/OUTPT VISIT,EST,LEVL IV OFFICE/OUTPT VISIT,EST,LEVL V Marv Young NP Phone: tel: fax: [facility] Orthopedic Surgery [address] [address] Phone: tel: fax: Referral ID Status Reason Start Date Expiration Date Visits Requested Visits Authorized [id number] Authorized Specialty Services 07/05/2024 99 99 Scheduling Instructions Please make sure orthopedic is covered by her insurance. Encounter Details Date Type Department Care Team (Late st Contact Info) Description 06/04/2023 MyCTheRouteBoxt Message Enc [facility] Family & Internal Medicine [address] [address] [facility] Provider MRI Social History Tobacco Use Types Packs/Day Years [...] st Contact Info) Description 02/12/2024 9:00 AM RAILROAD PASSENGER AGENT Appointment [facility] Outpatient Rehab [address] [place] [address] [place] [address] [place] [address] [place] [address] [place] [address] 02/12/2024 2:00 PM RAILROAD PASSENGER AGENT Appointment [facility] [place] [address] [place] [address] [place] [address] [place] [address] 02/16/2024 9:00 AM RAILROAD PASSENGER AGENT Appointment [facility] Outpatient Rehab [address] [place] [address] [place] [address] [place] [address] [place] [address] [place] [address] 02/19/2024 8:45 AM RAILROAD PASSENGER AGENT Appointment [facility] Outpatient Rehab [address] [place] [address] [place] [address] [place] [address] [place] [address] [place] [address] 02/19/2024 9:00 AM RAILROAD PASSENGER AGENT Appointment [facility] Outpatient Rehab [address] [place] [address] [place] [address] [place] [address] [place] [address] [place] [address] 02/23/2024 9:00 AM RAILROAD PASSENGER AGENT Appointment [facility] Outpatient Rehab [address] [place] [address] [place] [address] [place] [address] [place] [address] [place] [address] 02/24/2024 1:30 PM RAILROAD PASSENGER AGENT Appointment [facility] [place] [address] [place] [address] [place] [address] [place] [address] 02/26/2024 9:00 AM RAILROAD PASSENGER AGENT Appointment [facility] Outpatient Rehab [address] [place] [address] [place] [address] [place] [address] [place] [address] [place] [address] 02/26/2024 9:15 AM RAILROAD PASSENGER AGENT Appointment [facility] Outpatient Rehab [address] [place] [address] [place] [address] [place] [address] [place] [address] [place] [address] 03/01/2024 9:00 AM RAILROAD PASSENGER AGENT Appointment [facility] Outpatient Rehab [address] [place] [address] [place] [address] [place] [address] [place] [address] [place] [address] Lorene Branch, DIE CASTING MACHINE OPERATOR 03/02/2024 12:27 PM RAILROAD PASSENGER AGENT Hospital Encounter [facility] [address] [place] [address] [place] [address] [place] [address] 03/02/2024 12:27 PM RAILROAD PASSENGER AGENT - 03/02/2024 1:07 PM RAILROAD PASSENGER AGENT Surgery [facility] [address] [place] [address] [place] [address] [place] [address] MANIPULATION SHOULDER 03/05/2024 9:00 AM RAILROAD PASSENGER AGENT Appointment [facility] Outpatient Rehab [address] [place] [address] [place] [address] [place] [address] Lorene Branch, DIE CASTING MACHINE OPERATOR 03/08/2024 9:00 AM RAILROAD PASSENGER AGENT Appointment [facility]patient [facility]hab [address] [place] [address] [place] [address] [place] [address] Lorene Branch, DIE CASTING MACHINE OPERATOR 03/11/2024 9:15 AM RAILROAD PASSENGER AGENT Appointment [facility]patient [facility]hab [address] [place] [address] [place] [address] [place] [address] Lorene Branch, DIE CASTING MACHINE OPERATOR 03/15/2024 9:00 AM RAILROAD PASSENGER AGENT Appointment [facility] Outpatient [facility]hab [address] [place] [address] [place] [address] [place] [address] Lorene Branch, DIE CASTING MACHINE OPERATOR 03/18/2024 9:15 AM RAILROAD PASSENGER AGENT Appointment [facility] Outpatient [facility]hab [address] [place] [address] [place] [address] [place] [address] Lorene Branch, DIE CASTING MACHINE OPERATOR 03/22/2024 9:00 AM RAILROAD PASSENGER AGENT Appointment [facility] Outpatient [facility]hab [address] [place] [address] [place] [address] [place], [place] [address] Lorene Branch, DIE CASTING MACHINE OPERATOR 03/25/2024 9:15 AM RAILROAD PASSENGER AGENT Appointment [facility] Outpatient Rehab [address] [place] [address] [place] [address] [place], [place] [address] Lorene Branch, DIE CASTING MACHINE OPERATOR 04/21/2024 11:20 AM RAILROAD PASSENGER AGENT Office Visit [facility] Medical Group Family & Internal Medicine [facility] [id number] [place] [phone] Holger Soriano, TYLER [address] [place] [address] Scheduled Procedures Name Priority Associated Diagnoses Date/Ti me MANIPULATION SHOULDER Adhesive capsulitis of left shoulder 03/02/2024 12:27 PM RAILROAD PASSENGER AGENT INJECTION JOINT Adhesive capsulitis of left shoulder 03/02/2024 12:27 PM RAILROAD PASSENGER AGENT Scheduled Referrals Name Type Priority Associated Diagnoses Orde r Schedule Ambulatory referral to Orthopedics (OTHER) Referral CHELE Pain in left arm Ordered: 06/05/2023 documented as of this encounter Visit Diagnoses Diagnosis Pain in left arm- Primary Adhesive capsulitis of left shoulder Adhesive capsulitis of shoulder documented in this encounter Additional Health Concerns Assessment Noted Time PHQ-9 Depression Total Score: 5 03/18/19 24 2:22 PM RAILROAD PASSENGER AGENT documented as of this encounter Care Teams Slipman Relationship Specialty Start Date End Date Marv Young NP PCP - General NURSE PRACTITIONER ADULT HEALTH 03/11/23 09/14/23 documented as of this encounter
--- OUTSIDE RECORDS SUMMARY | 2024-02-12 03:31 | XMS_ITS | Encounter Summary ---
Author Organization [facility] Address [facility] [place] [address] [place] [address] Care Team Providers Care Net Mobile Developer Name Role Phone Marv Young LITHOGRAPH PRESS FEEDER Primary Care Provide r Reason for Visit * Reason Onset Date Comments Other 06/23/2023 OV canceled Encounter Details Date Type Department Care Team (Late st Contact Info) Description 06/23/2023 Telephone [facility] Medical Group Family & Internal Medicine [address] [address] Marv Young, LITHOGRAPH PRESS FEEDER [address] [place] [address] [place] [address] Other (OV canceled ) Social History Tobacco Use Types Packs/Day [...] Progress Notes * Susana Nunez MA - 06/23/2023 7:54 AM CDT Noted * Alejandra Zamudio LPN - 06/23/2023 7:35 AM CDT FYI Pt called canceled 06/23/23 with [facility] Decided not to have inj shoulder Will see ortho first [phone] documented in this encounter Plan of Treatment Upcoming Encounters Date Type Department Care Team (Late st Contact Info) Description 02/12/2024 9:00 AM TACO MAKER Appointment [facility] Outpatient Rehab [address] [place] [address] [place] [address] [place] [address] [place] [address] [place] [address] 02/12/2024 2:00 PM TACO MAKER [facility] [address] [place] [address] [place] [address] [place] [address] 02/16/2024 9:00 AM TACO MAKER Appointment [facility] [address] [place] [address] [place] [address] [place] [address] [place] [address] [place] [address] 02/19/2024 8:45 AM TACO MAKER Appointment [facility] Outpatient Rehab [address] [place] [address] [place] [address] [place] [address] [place] [address] [place] [address] 02/19/2024 9:00 AM TACO MAKER Appointment [facility] Outpatient Rehab [address] [place] [address] [place] [address] [place] [address] [place] [address] [place] [address] 02/23/2024 9:00 AM TACO MAKER Appointment [facility] Out[facility]hab [address] [place] [address] [place] [address] [place] [address] [place] [address] [place] [address] 02/24/2024 1:30 PM TACO MAKER [facility] [address] [place] [address] [place] [address] [place] [address] 02/26/2024 9:00 AM TACO MAKER Appointment [facility]hab [address] [place] [address] [place] [address] [place] [address] [place] [address] [place] [address] 02/26/2024 9:15 AM TACO MAKER Appointment [facility] Out[facility]hab [address] [place] [address] [place] [address] [place] [address] [place] [address] [place] [address] 03/01/2024 9:00 AM TACO MAKER Appointment [facility]hab [address] [place] [address] [place] [address] [place] [address] [place] [address] [place] [address] Lorene Branch, TEXTILE TECHNICAL OFFICER 03/02/2024 12:27 PM TACO MAKER Hospital Encounter [facility] Surgery [address] [place] [address] [place] [address] [place] [address] 03/02/2024 12:27 PM TACO MAKER - 03/02/2024 1:07 PM TACO MAKER Surgery [facility] Surgery [address] [place] [address] [place] [address] [place] [address] MANIPULATION SHOULDER 03/05/2024 9:00 AM TACO MAKER Appointment [facility] Out[facility] [address] [place] [address] [place] [address] [place] [address] Lorene Branch, TEXTILE TECHNICAL OFFICER 03/08/2024 9:00 AM TACO MAKER Appointment [facility] [address] [place] [address] [place] [address] [place] [address] Lorene Branch, TEXTILE TECHNICAL OFFICER 03/11/2024 9:15 AM TACO MAKER Appointment [facility] [address] [place] [address] [place] [address] [place] [address] Lorene Branch, TEXTILE TECHNICAL OFFICER 03/15/2024 9:00 AM TACO MAKER Appointment [facility] [address] [place] [address] [place] [address] [place] [address] Lorene Branch, TEXTILE TECHNICAL OFFICER 03/18/2024 9:15 AM TACO MAKER Appointment [facility] [address] [place] [address] [place] [address] [place] [address] Lorene Branch Marcia, TEXTILE TECHNICAL OFFICER 03/22/2024 9:00 AM TACO MAKER Appointment [facility]hab [address] [place] [address] [place] [address] [place] [address] Lorene Branch Marcia, TEXTILE TECHNICAL OFFICER 03/25/2024 9:15 AM TACO MAKER Appointment [facility] [address] [place] [address] [place] [address] [place] [address] Chantal Branchreginald Kennedy, TEXTILE TECHNICAL OFFICER 04/21/2024 11:20 AM TACO MAKER Office Visit [facility] Medical Group Family & Internal Medicine [facility] [address] [place] [address] [phone] [place] [address] [place], [place] [phone] Scheduled Procedures Name Priority Associated Diagnoses Date/Ti me MANIPULATION SHOULDER Adhesive capsulitis of left shoulder 03/02/2024 12:27 PM TACO MAKER INJECTION JOINT Adhesive capsulitis of left shoulder 03/02/2024 12:27 PM TACO MAKER documented as of this encounter Visit Diagnoses Not on filedocumented in this encounter Additional Health Concerns Assessment Noted Time PHQ-9 Depression Total Score: 5 03/18/19 24 2:22 PM TACO MAKER documented as of this encounter Care Teams Net Mobile Developer Relationship Specialty Start Date End Date Marv Young NP PCP - General NURSE PRACTITIONER ADULT HEALTH 03/11/23 09/14/23 documented as of this encounter
--- OUTSIDE RECORDS SUMMARY | 2024-02-12 03:32 | XMS_ITS | Encounter Summary ---
Author Organization [facility] Address [facility] [place] [address] [place] [address] Care Team Providers Care Activities Director Name Role Phone Wilmer Carnes MD Primary Care Provider + [phone] Encounter Details Date Type Department Care Team (Latest Contact Info) Description 09/03/2020 Travel Social History Tobacco Use Types Packs/Day Years Used Date Smoking Tobacco: Never Assessed Comments Unknown Sex and Gender Information Value Date Recorded Sex Assigned at Female 06/05/2023 1:14 PM CDT Legal Sex Female 5:27 PM CDT Gender Identity Female 06/05/2023 1:14 PM CDT Sexual Orientation Straight 06/05/2023 1: 14 PM CDT COVID-19 Exposure Response Date Recorded In the last month, have you been in contact with someone who was confirmed or suspected to have Coronavirus / COVID-19? No / Unsure 09/03/2020 7:34 AM CDT documented as of this encounter Plan of Treatment Upcoming Encounters Date Type Department Care Team (Late st Contact Info) Description 02/12/2024 9:00 AM LIGHT INDUSTRIAL Appointment [facility] Outpatient Rehab [address] [place] [address] [place] [address] [place] [address] [place] [address] [place] [address] 02/12/2024 2:00 PM LIGHT INDUSTRIAL Appointment [facility] [address] [place] [address] [place] [address] [place] [address] 02/16/2024 9:00 AM LIGHT INDUSTRIAL Appointment [facility] Outpatient Rehab [address] [place] [address] [place] [address] [place] [address] [place] [address] [place] [address] 02/19/2024 8:45 AM LIGHT INDUSTRIAL Appointment [facility] Outpatient Rehab [address] [place] [address] [place] [address] [place] [address] [place] [address] [place] [address] 02/19/2024 9:00 AM LIGHT INDUSTRIAL Appointment [facility] Outpatient Rehab [address] [place] [address] [place] [address] [place] [address] [place] [address] [place] [address] 02/23/2024 9:00 AM LIGHT INDUSTRIAL Appointment [facility] Outpatient Rehab [address] [place] [address] [place] [address] [place] [address] [place] [address] [place] [address] 02/24/2024 1:30 PM LIGHT INDUSTRIAL Appointment [address] [address] [place] [address] [place] [address] 02/26/2024 9:00 AM LIGHT INDUSTRIAL Appointment [facility] Outpatient Rehab [address] [place] [address] [place] [address] [place] [address] [place] [address] [place] [address] 02/26/2024 9:15 AM LIGHT INDUSTRIAL Appointment [facility] Outpatient Rehab [address] [place] [address] [place] [address] [place] [address] [place] [address] [place] [address] 03/01/2024 9:00 AM LIGHT INDUSTRIAL Appointment [facility] Outpatient Rehab [address] [place] [address] [place] [address] [place] [address] [place] [address] [place] [address] Lorene Branch, NURSE PRIVATE DUTY 03/02/2024 12:27 PM LIGHT INDUSTRIAL Hospital Encounter [facility] [address] [place] [address] [place] [address] [place] [address] 03/02/2024 12:27 PM LIGHT INDUSTRIAL - 03/02/2024 1:07 PM LIGHT INDUSTRIAL Surgery [facility] Surgery [address] [place] [address] [place] [address] [place] [address] MANIPULATION SHOULDER 03/05/2024 9:00 AM LIGHT INDUSTRIAL Appointment [facility] Outpatient Rehab [address] [place] [address] [place] [address] [place] [address] Lorene Branch, NURSE PRIVATE DUTY 03/08/2024 9:00 AM LIGHT INDUSTRIAL Appointment [facility] Outpatient Rehab [address] [place] [address] [place] [address] [place] [address] Lorene Branch, NURSE PRIVATE DUTY 03/11/2024 9:15 AM LIGHT INDUSTRIAL Appointment [facility] Outpatient Rehab [address] [place] [address] [place] [address] [place] [address] Lorene Branch, NURSE PRIVATE DUTY 03/15/2024 9:00 AM LIGHT INDUSTRIAL Appointment [facility] [address] [place] [address] [place] [address] [place] [address] Lorene Branch, NURSE PRIVATE DUTY 03/18/2024 9:15 AM LIGHT INDUSTRIAL Appointment [facility] [address] [place] [address] [place] [address] [place] [address] Lorene Branch, NURSE PRIVATE DUTY 03/22/2024 9:00 AM LIGHT INDUSTRIAL Appointment [facility] Outpatient Rehab [address] [place] [address] [place] [address] [place] [address] Lorene Branch, NURSE PRIVATE DUTY 03/25/2024 9:15 AM LIGHT INDUSTRIAL Appointment [facility] Outpatient Rehab [address] [place] [address] [place] [address] [place] [address] Lorene Branch, NURSE PRIVATE DUTY 04/21/2024 11:20 AM LIGHT INDUSTRIAL Office Visit [facility] Medical Group Family & Internal Medicine [address] [phone] [place] [address] [place] [address] Scheduled Procedures Name Priority Associated Diagnoses Date/Ti me MANIPULATION SHOULDER Adhesive capsulitis of left shoulder 03/02/2024 12:27 PM LIGHT INDUSTRIAL INJECTION JOINT Adhesive capsulitis of left shoulder 03/02/2024 12:27 PM LIGHT INDUSTRIAL documented as of this encounter Visit Diagnoses Not on filedocumented in this encounter Care Teams Activities Director Relationship Specialty Start Date End Date Wilmer Carnes MD [address] [place] [address] PCP - General FAMILY PRACTICE 09/03/20 03/10/23 documented as of this encounter
--- OUTSIDE RECORDS SUMMARY | 2024-02-12 03:32 | XMS_ITS | Encounter Summary ---
Author Organization [facility] Address [facility] [place] [address] [place] [address] Care Team Providers Care Glass Blowing Instructor Name Role Phone , Joann Mills MD Primary Care Provider Unavailable Encounter Details Date Type Department Care Team (Late st Contact Info) Description 10/29/2012 [place] [address] , Generic ConversionMD Social History Tobacco Use Types Packs/Day Years [...] st Contact Info) Description 02/12/2024 9:00 AM SEWER PIPE CLEANER Appointment [facility] Outpatient Rehab [address] [place] [address] [place] [address] [place] [address] [place] [address] [place] [address] 02/12/2024 2:00 PM SEWER PIPE CLEANER Appointment [facility] MRI [address] [place] [address] [place] [address] [place] [address] 02/16/2024 9:00 AM SEWER PIPE CLEANER Appointment [facility] Outpatient Rehab [address] [place] [address] [place] [address] [place] [address] [place] [address] [place] [address] 02/19/2024 8:45 AM SEWER PIPE CLEANER Appointment [facility] Outpatient Rehab [address] [place] [address] [place] [address] [place] [address] [place] [address] [place] [address] 02/19/2024 9:00 AM SEWER PIPE CLEANER Appointment [facility] Outpatient Rehab [address] [place] [address] [place] [address] [place] [address] [place] [address] [place] [address] 02/23/2024 9:00 AM SEWER PIPE CLEANER Appointment [facility] Outpatient Rehab [address] [place] [address] [place] [address] [place] [address] [place] [address] [place] [address] 02/24/2024 1:30 PM SEWER PIPE CLEANER Appointment [facility] MRI [address] [place] [address] [place] [address] [place] [address] 02/26/2024 9:00 AM SEWER PIPE CLEANER Appointment [facility] Outpatient Rehab [address] [place] [address] [place] [address] [place] [address] [place] [address] [place] [address] 02/26/2024 9:15 AM SEWER PIPE CLEANER Appointment [facility] Outpatient Rehab [address] [place] [address] [place] [address] [place] [address] [place] [address] [place] [address] 03/01/2024 9:00 AM SEWER PIPE CLEANER Appointment [facility] Outpatient Rehab [address] [place] [address] [place] [address] [place] [address] [place] [address] [place] [address] Lorene Branch, SPIN INSTRUCTOR 03/02/2024 12:27 PM SEWER PIPE CLEANER Hospital Encounter [facility] [address] [place] [address] [place] [address] [place] [address] 03/02/2024 12:27 PM SEWER PIPE CLEANER - 03/02/2024 1:07 PM SEWER PIPE CLEANER Surgery [facility] Surgery [address] [place] [address] [place] [address] [place] [address] MANIPULATION SHOULDER 03/05/2024 9:00 AM SEWER PIPE CLEANER Appointment [facility] Outpatient Rehab [address] [place] [address] [place] [address] [place] [address] Lorene Branch, SPIN INSTRUCTOR 03/08/2024 9:00 AM SEWER PIPE CLEANER Appointment [facility] Outpatient Rehab [address] [place] [address] [place] [address] [place] [address] Lorene Branch, SPIN INSTRUCTOR 03/11/2024 9:15 AM SEWER PIPE CLEANER Appointment [facility] Outpatient Rehab [address] [place] [address] [place] [address] [place] [address] Lorene Branch, SPIN INSTRUCTOR 03/15/2024 9:00 AM SEWER PIPE CLEANER Appointment [facility] Outpatient Rehab [address] [place] [address] [place] [address] [place] [address] Lorene Branch, SPIN INSTRUCTOR 03/18/2024 9:15 AM SEWER PIPE CLEANER Appointment [facility] Outpatient [facility]hab [address] [place] [address] [place] [address] [place] [address] Lorene Branch, SPIN INSTRUCTOR 03/22/2024 9:00 AM SEWER PIPE CLEANER Appointment [facility] Outpatient [facility]hab [address] [place] [address] [place] [address] [place] [address] Lorene Branch, SPIN INSTRUCTOR 03/25/2024 9:15 AM SEWER PIPE CLEANER Appointment [facility] [address] [place] [address] [place] [address] [place] [address] Lorene Branch, SPIN INSTRUCTOR 04/21/2024 11:20 AM SEWER PIPE CLEANER Office Visit [facility] Medical Group Family & Internal Medicine - [address] [phone] [place] [address] [place] [address] Scheduled Procedures Name Priority Associated Diagnoses Date/Ti me MANIPULATION SHOULDER Adhesive capsulitis of left shoulder 03/02/2024 12:27 PM SEWER PIPE CLEANER INJECTION JOINT Adhesive capsulitis of left shoulder 03/02/2024 12:27 PM SEWER PIPE CLEANER documented as of this encounter Visit Diagnoses Diagnosis Posttraumatic stress disorder Adhesive capsulitis of left shoulder Adhesive capsulitis of shoulder documented in this encounter Care Teams Glass Blowing Instructor Relationship Specialty Start Date End Date Joann Granados, PCP - General 10/29/12 documented as of this encounter
--- OUTSIDE RECORDS SUMMARY | 2024-02-12 03:32 | XMS_ITS | Encounter Summary ---
Author Organization [facility] Address [facility] [place] [address] [place] [address] Care Team Providers Care Pega Developer Name Role Phone Marv Quiroga NP Primary Care Provide r Reason for Referral * Imaging (Emergency) - Closed Specialty Diagnoses / Procedures Referred By Contac t Referred To Contact RADIOLOGY Diagnoses Post concussion syndrome Aphasia Procedures MRI BRAIN WO CON MRI BRAIN WO CON Marv Quiroga NP Phone: tel: fax: Referral ID Status Reason Start Date Expiration Date Visits Re quested Visits Authorized [id number] Closed 03/19/2023 03/19/2024 1 1 BRIDGE ATTENDANT Encounter Details Date Type Department Care Team (Late st Contact Info) Description 03/19/2023 Orders Only [facility] Family & Internal Medicine [address] [address] Marv Quiroga, GRACE [address] [place], [place] [address] [address] Social History Tobacco Use Types Packs/Day Years Used Date Smoking Tobacco: Every Day Cigarettes Smokeless Tobacco: Never Alcohol Use Standard Drinks/Week Comments Yes 0 (1 standard drink = 0.6 oz pur e alcohol) PHQ-2 Answer Date Recorded Patient Health Questionnaire-2 Score 1 03/18/2023 Comments No Sex and Gender Information Value Date Recorded Sex Assigned at Female 06/05/2023 1:14 PM CDT Legal Sex Female 5:27 PM CDT Gender Identity Female 06/05/2023 1:14 PM CDT Sexual Orientation Straight 06/05/2023 1: 14 PM CDT documented as of this encounter Progress Notes * Jasiel Barber RN - 03/19/2023 11:36 AM CSTAddended by: JASIEL BARBER on: 03/19/2023 11:36 AM Modules accepted: Orders BRIDGE ATTENDANT * Jasiel Barber RN - 03/19/2023 11:36 AM CSTAddended by: JASIEL BARBER on: 03/19/2023 11:36 AM Modules accepted: Orders BRIDGE ATTENDANT documented in this encounter Plan of Treatment Upcoming Encounters Date Type Department Care Team (Late st [facility] Info) Description 02/12/2024 9:00 AM TOLL BRIDGE ATTENDANT Appointment [facility] [address] [place] [address] [place] [address] [place] [address] [place] [address] [place] [address] 02/12/2024 2:00 PM TOLL BRIDGE ATTENDANT Appointment [facility] [place] [address] [place] [address] [place] [address] [place] [address] 02/16/2024 9:00 AM TOLL BRIDGE ATTENDANT Appointment [facility] [address] [place] [address] [place] [address] [place] [address] [place] [address] [place] [address] 02/19/2024 8:45 AM TOLL BRIDGE ATTENDANT Appointment [facility] [address] [place] [address] [place] [address] [place] [address] [place] [address] [place] [address] 02/19/2024 9:00 AM TOLL BRIDGE ATTENDANT Appointment [facility] [address] [place] [address] [place] [address] [place] [address] [place] [address] [place] [address] 02/23/2024 9:00 AM TOLL BRIDGE ATTENDANT Appointment [facility] [address] [place] [address] [place] [address] [place] [address] [place] [address] [place] [address] 02/24/2024 1:30 PM TOLL BRIDGE ATTENDANT Appointment [facility] [place] [address] [place] [address] [place] [address] [place] [address] 02/26/2024 9:00 AM TOLL BRIDGE ATTENDANT Appointment [facility] [address] [place] [address] [place] [address] [place] [address] [place] [address] [place] [address] 02/26/2024 9:15 AM TOLL BRIDGE ATTENDANT Appointment [facility] [address] [place] [address] [place] [address] [place] [address] [place] [address] [place] [address] 03/01/2024 9:00 AM TOLL BRIDGE ATTENDANT Appointment [facility] [address] [place] [address] [place] [address] [place] [address] [place] [address] [place] [address] Lorene Branch, TOBACCO ACREAGE MEASURER 03/02/2024 12:27 PM TOLL BRIDGE ATTENDANT Hospital Encounter [facility] Surgery [address] [place] [address] [place] [address] [place] [address] 03/02/2024 12:27 PM TOLL BRIDGE ATTENDANT - 03/02/2024 1:07 PM TOLL BRIDGE ATTENDANT Surgery [facility] [address] [place] [address] [place] [address] [place] [address] MANIPULATION SHOULDER 03/05/2024 9:00 AM TOLL BRIDGE ATTENDANT Appointment [facility] [address] [place] [address] [place] [address] [place] [address] Lorene Branch, TOBACCO ACREAGE MEASURER 03/08/2024 9:00 AM TOLL BRIDGE ATTENDANT Appointment [facility] [address] [place] [address] [place] [address] [place] [address] Lorene Branch, TOBACCO ACREAGE MEASURER 03/11/2024 9:15 AM TOLL BRIDGE ATTENDANT Appointment [facility] [address] [place] [address] [place] [address] [place] [address] Lorene Branch, TOBACCO ACREAGE MEASURER 03/15/2024 9:00 AM TOLL BRIDGE ATTENDANT Appointment [facility] [address] [place] [address] [place] [address] [place] [address] Lorene Branch, TOBACCO ACREAGE MEASURER 03/18/2024 9:15 AM TOLL BRIDGE ATTENDANT Appointment [facility] [address] [place] [address] [place] [address] [place] [address] Lorene Branch, TOBACCO ACREAGE MEASURER 03/22/2024 9:00 AM TOLL BRIDGE ATTENDANT Appointment [facility] [address] [place] [address] [place] [address] [place], [place] [id number] Lorene Branch, TOBACCO ACREAGE MEASURER 03/25/2024 9:15 AM TOLL BRIDGE ATTENDANT Appointment [facility] [address] [place] [address] [place] [address] [place] [address] Lorene Branch, TOBACCO ACREAGE MEASURER 04/21/2024 11:20 AM TOLL BRIDGE ATTENDANT Office Visit [facility] Family & Internal Medicine [address] [id number] [place] [address] [place] [address] Scheduled Procedures Name Priority Associated Diagnoses Date/Ti me MANIPULATION SHOULDER Adhesive capsulitis of left shoulder 03/02/2024 12:27 PM TOLL BRIDGE ATTENDANT INJECTION JOINT Adhesive capsulitis of left shoulder 03/02/2024 12:27 PM TOLL BRIDGE ATTENDANT documented as of this encounter Results * MRI BRAIN WO CON (03/20/2023 9:18 AM TOLL BRIDGE ATTENDANT) Anatomical Region Laterality Modality Head Magnetic Resonan ce 03/20/2023 9:18 AM TOLL BRIDGE ATTENDANT Impressions 03/20/2023 9:23 AM TOLL BRIDGE ATTENDANT IMPRESSION: 1. Soft tissue edema along the posterior occipital scalp in keeping with clinical history. Questionable low T1 signal within the subjacent occipital calvarium, potentially posttraumatic edema. No obvious displaced fracture identified on MRI, though could consider CT which would better assess underlying osseous detail. 2. No acute intracranial abnormalities identified. Referred By: MARV QUIROGA Interpreted By: Silvano Reyna MD, 03/20/2023 9:18 AM Narrative 03/20/2023 9:23 AM TOLL BRIDGE ATTENDANT INDICATION: Aphasia. Post concussion syndrome. History of fall with head injury. EXAMINATION: MRI brain without contrast. TECHNIQUE: Multiplanar and multisequence MRI images of the brain were obtained without contrast. COMPARISON: None FINDINGS: Soft tissue edema noted along the posterior occipital scalp with overlying skin camilla suggested. Questionable low T1 marrow signal within the subjacent occipital calvarium. No hemorrhagic foci of susceptibility seen on gradient echo images. No diffusion restriction or evidence of acute infarct. No intracranial mass, mass effect, or midline shift. No discrete regions of abnormal parenchymal T2/FLAIR signal intensity identified. Ventricles and extra axial/subarachnoid spaces are unremarkable. No extra-axial collections. Proximal portions of the major intracranial arterial flow voids are patent. Craniocervical junction, sellar content, and pineal region are unremarkable. Procedure Note Silvano Reyna MD - 03/20/2023 INDICATION: Aphasia. Post concussion syndrome. History of fall with headinjury. EXAMINATION: MRI brain without contrast. TECHNIQUE: Multiplanar and multisequence MRI images of the brain wereobtained without contrast. COMPARISON: None FINDINGS: Soft tissue edema noted along the posterior occipital scalp with overlyingskin camilla suggested. Questionable low T1 marrow signal within thesubjacent occipital calvarium. No hemorrhagic foci of susceptibility seenon gradient echo images. No diffusion restriction or evidence of acuteinfarct. No intracranial mass, mass effect, or midline shift. No discreteregions of abnormal parenchymal T2/FLAIR signal intensity identified.Ventricles and extra axial/subarachnoid spaces are unremarkable. Noextra-axial collections. Proximal portions of the major intracranialarterial flow voids are patent. Craniocervical junction, sellar content,and pineal region are unremarkable. IMPRESSION: 1. Soft tissue edema along the posterior occipital scalp in keeping withclinical history. Questionable low T1 signal within the subjacentoccipital calvarium, potentially posttraumatic edema. No obvious displacedfracture identified on MRI, though could consider CT which would betterassess underlying osseous detail. 2. No acute intracranial abnormalities identified. Referred By: MARV QUIROGA Interpreted By: Silvano Reyna MD, 03/20/2023 9:18 AM Marv Quiroga REPTILE KEEPER MRI Final Result documented in this encounter Visit Diagnoses Diagnosis Post concussion syndrome- Primary Postconcussion syndrome Aphasia Post concussion syndrome Postconcussion syndrome Aphasia Adhesive capsulitis of left shoulder Adhesive capsulitis of shoulder documented in this encounter Additional Health Concerns Assessment Noted Time PHQ-9 Depression Total Score: 5 03/18/19 24 2:22 PM TOLL BRIDGE ATTENDANT documented as of this encounter Care Teams Pega Developer Relationship Specialty Start Date End Date Marv Quiroga NP PCP - General NURSE PRACTITIONER ADULT HEALTH 03/11/23 09/14/23 documented as of this encounter
--- OUTSIDE RECORDS SUMMARY | 2024-02-12 03:32 | XMS_ITS | Encounter Summary ---
Author Organization [facility] Address [facility] [place] [address] [place] [address] Care Team Providers Care Supervisor Of Officials Name Role Phone Wilmer Carnes MD Primary Care Provider [phone] Reason for Visit * Reason Comments Eye Pain Encounter Details Date Type Department Care Team (Late st Contact Info) Description 09/03/2020 7:42 AM CDT - 09/03/2020 8:19 AM CDT Emergency [facility] Emergency Room [address] [place] [address] Rand Abbott MD [address] [place] [id number] Eye Pain Discharge Disposition: Home or Self Care [...] AM CDT documented as of this encounter Last Filed Vital Signs Vital Sign Reading Time Taken Comments Blood Pressure 128/70 09/03/2020 7:43 AM CDT Pulse 85 09/03/2020 7:43 AM CDT Temperature 35.8 ??C (96.5 ??F) 09/03/2020 7:43 AM CD T Respiratory Rate 16 09/03/2020 7:43 AM CDT Oxygen Saturation 97% 09/03/2020 7:43 AM CDT Inhaled Oxygen Concentration - - Weight 88.5 kg (195 lb) 09/03/2020 7:43 AM CDT Height 157.5 cm (5' 2 ) 09/03/2020 7:43 AM CDT Body Mass Index 35.67 09/03/2020 7:43 AM CDT documented in this encounter Discharge Instructions * Discharge Instructions* Rand Abbott MD - 09/03/2020 8:12 AM CDT Use antibiotic eyedrops as prescribed. Follow-up with your eye doctor in the next 2 to 3 days if not improving for reevaluation. May use artificial tears to help soothe eye irritation. May take acetaminophen 1000 mg every 6 hours as needed for pain. May take ibuprofen 400 to 600 mg every 6 hours asneeded for pain. * Attachments The following attachments cannot be sent through Care Everywhere. * Conjunctivitis (Pinkeye) Discharge Instructions (Serbian) documented in this encounter Medications at Time of Discharge ofloxacin 0.3 % ophthalmic solution 2 drops to right eye every 2 hours while awake for 2 days, then 2 drops every 6 hours for 5 days 5 mL 09/03/2020 03/18/2023 documented as of this encounter ED Notes * Rand Abbott MD - 09/03/2020 8:05 AM CDT Chief Complaint Chief Complaint Patient presents with ??? Eye Pain History of Present Illness Patient is a 44-year-old female who presents to the emergency department with report of right eye redness and pain. Patient wears contact lenses. 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 She did not notice any significant irritation at that time. However, after coming home and taking off her contact lenses she began to notice some irritation to her right eye. She has developed redness and discharge from her eye. She states currently the discharge is watery, but she has noticed some beige-colored discharge and did notice her eyelids were crusted together after sleeping. She reports photophobia and pain with movement of her eye when her eyelid is closed. She has been using art ificial tears with minimal relief. She denies any upper respiratory symptoms/illness symptoms. She has been wearing her glasses since the incident. She has disposable contact lenses that she wears for 1 month at a time. She does not sleep in her contact lenses. She changes her contact lenses the first day of every month. Medical History ALLERGIES: Allergies Allergen Reactions ??? Ranitidine Unknown ??? Contrast [Iodine] Rash MEDICATIONS: Prior to Admission medications Medication Sig Start Date End Date Taking? Authorizing Provider ofloxacin 0.3 % ophthalmic solution 2 drops to right eye every 2 hours while awake for 2 days, then2 drops every 6 hours for 5 days 09/03/20 Yes Rand Abbott MD PAST MEDICAL HISTORY: No past medical history on file. PAST SURGICAL HISTORY: No past surgical history on file. FAMILY HISTORY: No family history on file. SOCIAL HISTORY: Social History Tobacco Use ??? Smoking status: Not on file Substance Use Topics ??? Alcohol use: Not on file ??? Drug use: Not on file Review of Systems Review of Systems Constitutional: Negative for fever. HENT: Positive for rhinorrhea. Negative for sore throat. Eyes: Positive for photophobia, pain, discharge and redness. Negative for visual disturbance. Respiratory: Negative for cough. Gastrointestinal: Negative for diarrhea and vomiting. Neurological: Negative for headaches. All other systems reviewed and are negative. Physical Exam Filed Vitals: 09/03/20 0743 BP: 128/70 Pulse: 85 Resp: 16 Temp: 96.5 ??F (35.8 ??C) TempSrc: Skin SpO2: 97% Weight: 88.5 kg (195 lb) Height: 5' 2 (1.575 m) Physical Exam Vitals and nursing note reviewed. Constitutional: General: She is not in acute distress. Appearance: She is not toxic-appearing. HENT: Head: Normocephalic and atraumatic. Eyes: General: Lids are normal. Lids are everted, no foreign bodies appreciated. Vision grossly intact. Gaze aligned appropriately. Right eye: No foreign body or discharge. Extraocular Movements: Extraocular movements intact. Conjunctiva/sclera: Right eye: Right conjunctiva is injected. Pupils: Pupils are equal, round, and reactive to light. Right eye: No corneal abrasion or fluorescein uptake. Comments: Nurse conducted visual acuity at eye chart and vision was 20/25 in each eye with glasses Cardiovascular: Rate and Rhythm: Normal rate and regular rhythm. Pulmonary: Effort: Pulmonary effort is normal. Breath sounds: Normal breath sounds. Musculoskeletal: General: Normal range of motion. Skin: General: Skin is warm and dry. Neurological: Mental Status: She is alert and oriented to person, place, and time. Psychiatric: Mood and Affect: Mood and affect normal. Behavior: Behavior normal. Diagnostic Studies / Procedures ELECTROCARDIOGRAMS: No results found for this visit on 09/03/20. LABORATORY STUDIES: No results found for this visit on 09/03/20. IMAGING STUDIES No orders to display ED Course / Medical Decision Making MDM Number of Diagnoses or Management Options Conjunctivitis of right eye, unspecified conjunctivitis type Diagnosis management comments: Patient with findings consistent with conjunctivitis. Pain completely relieved with tetracaine drops used for examination. Discussed with patient etiology for conjunctivitis could be irritant, viral, or bacterial. Given patient is a contact lens wearer and does have report of some purulent discharge, antibiotic drops prescribed. Recommended follow-up with her eye doctor if not improving. Patient Progress Patient progress: stable Medications tetracaine 0.5 % ophthalmic solution 1 drop (1 drop Right Eye Given by Other 09/03/20 0758) ophthalmic irrigation (EYE WASH) solution ( Given by Other 09/03/20 0758) Discharge Medication List as of 09/03/2020 8:13 AM START taking these medications Details ofloxacin 0.3 % ophthalmic solution 2 drops to right eye every 2 hours while awake for 2 days, then2 drops every 6 hours for 5 days, Eprescribe Clinical Impression Conjunctivitis of right eye, unspecified conjunctivitis type (Primary) Disposition: Discharge Rand Abbott MD 09/03/20 0819 * Emiyl Contreras RN - 09/03/2020 7:47 AM CDT Patient presents with eye pain she rates at a 4, redness, thick cloudy white drainage, and a possible foreign body that started yesterday while dusting. She was wearing contacts and felt like she gotsomething in her eye and didn't get her contacts out for a few hours after. documented in this encounter Plan of Treatment Upcoming Encounters Date Type Department Care Team (Late st Contact Info) Description 02/12/2024 9:00 AM GLUE MOUNTER OPERATOR Appointment [facility] [address] [place] [address] [place] [address] [place] [address] [place] [address] [place] [address] 02/12/2024 2:00 PM GLUE MOUNTER OPERATOR [facility] [address] [place] [address] [place] [address] [place] [address] 02/16/2024 9:00 AM GLUE MOUNTER OPERATOR [facility]ointment [facility] [address] [place] [address] [place] [address] [place] [address] [place] [address] [place] [address] 02/19/2024 8:45 AM GLUE MOUNTER OPERATOR Appointment [facility] [address] [place] [address] [place] [address] [place] [address] [place] [address] [place] [address] 02/19/2024 9:00 AM GLUE MOUNTER OPERATOR Appointment [facility] [address] [place] [address] [place] [address] [place] [address] [place] [address] [place] [address] 02/23/2024 9:00 AM GLUE MOUNTER OPERATOR Appointment [facility] [address] [place] [address] [place] [address] [place] [address] [place] [address] [place] [address] 02/24/2024 1:30 PM GLUE MOUNTER OPERATOR Appointment [facility] [address] [place] [address] [place] [address] [place] [address] 02/26/2024 9:00 AM GLUE MOUNTER OPERATOR Appointment [facility] [address] [place] [address] [place] [address] [place] [address] [place] [address] [place] [address] 02/26/2024 9:15 AM GLUE MOUNTER OPERATOR Appointment [facility] [address] [place] [address] [place] [address] [place] [address] [place] [address] [place] [address] 03/01/2024 9:00 AM GLUE MOUNTER OPERATOR Appointment [facility] [address] [place] [address] [place] [address] [place] [address] [place] [address] [place] [address] Lorene Branch, INTERMEDIATE FRAME TENDER 03/02/2024 12:27 PM GLUE MOUNTER OPERATOR Hospital Encounter [facility] [address] [place] [address] [place] [address] [place] [address] 03/02/2024 12:27 PM GLUE MOUNTER OPERATOR - 03/02/2024 1:07 PM GLUE MOUNTER OPERATOR Surgery [facility] [address] [place] [address] [place] [address] [place] [address] [facility] 03/05/2024 9:00 AM GLUE MOUNTER OPERATOR Appointment [facility] [address] [place] [address] [place] [address] [place] [address] Lorene Branch, INTERMEDIATE FRAME TENDER 03/08/2024 9:00 AM GLUE MOUNTER OPERATOR Appointment [facility] [address] [place] [address] [place] [address] [place] [address] Lorene Branch, INTERMEDIATE FRAME TENDER 03/11/2024 9:15 AM GLUE MOUNTER OPERATOR Appointment [facility] [address] [place] [address] [place] [address] [place] [address] Lorene Branch, INTERMEDIATE FRAME TENDER 03/15/2024 9:00 AM GLUE MOUNTER OPERATOR Appointment [facility] [address] [place] [address] [place] [address] [place] [address] Lorene Branch, INTERMEDIATE FRAME TENDER 03/18/2024 9:15 AM GLUE MOUNTER OPERATOR Appointment [facility] [address] [place] [address] [place] [address] [place] [address] Lorene Branch, INTERMEDIATE FRAME TENDER 03/22/2024 9:00 AM GLUE MOUNTER OPERATOR Appointment [facility] [address] [place] [address] [place] [address] [place] [address] Lorene Branch, INTERMEDIATE FRAME TENDER 03/25/2024 9:15 AM GLUE MOUNTER OPERATOR Appointment [facility] [address] [place] [address] [place] [address] [place], [place] [id number] Lorene Branch, INTERMEDIATE FRAME TENDER 04/21/2024 11:20 AM GLUE MOUNTER OPERATOR Office Visit [facility] Family & Internal Medicine - [place] [address] [place] [phone] [place] [address] [place] [address] Scheduled Procedures Name Priority Associated Diagnoses Date/Ti me MANIPULATION SHOULDER Adhesive capsulitis of left shoulder 03/02/2024 12:27 PM GLUE MOUNTER OPERATOR INJECTION JOINT Adhesive capsulitis of left shoulder 03/02/2024 12:27 PM GLUE MOUNTER OPERATOR documented as of this encounter Visit Diagnoses Diagnosis Conjunctivitis of right eye, unspecified conjunctivitis type- Primary Adhesive capsulitis of left shoulder Adhesive capsulitis of shoulder documented in this encounter Administered Medications Inactive Administered Medications - up to 3 most recent administrations Medication Order MAR Action Action Date Dose Rate Site ophthalmic irrigation (EYE WASH) solution 1 dose, Starting on 09/03/20 at 0754, Until 09/03/20 at 0758, Created by cabinet override Given by Other 09/03/2020 7:58 AM CDT tetracaine 0.5 % ophthalmic solution 1 drop 1 drop, Right Eye, Once, 1 dose, On 09/03/20 at 0800 Given by Other 09/03/2020 7:58 AM CDT 1 drop documented in this encounter Active and Recently Administered Medications Times are shown in CDT. Scheduled Medication Order 09/01/2020 09/02/2020 09/03/2020 tetracaine 0.5 % ophthalmic solution 1 drop (COMPLETED) 1 drop, Right Eye, Once, 1 dose, On 09/03/20 at 0800 0758 (Given by Other - Provider: Emily Contreras, RN) No Frequency Medication Order 09/01/2020 09/02/2020 09/03/2020 ophthalmic irrigation (EYE WASH) solution (COMPLETED) 1 dose, Starting on 09/03/20 at 0754, Until 09/03/20 at 0758, Created by cabinet override 0758 (Given by Other - Provider: Emily Contreras, ELVIE) documented in this encounter Care Teams Supervisor Of Officials Relationship Specialty Start Date End Date Wilmer Carnes MD [address] [place] [address] PCP - General FAMILY PRACTICE 09/03/20 03/10/23 documented as of this encounter
--- OUTSIDE RECORDS SUMMARY | 2024-02-12 03:32 | XMS_ITS | Encounter Summary ---
Author Organization [facility] Address [facility] [place] [address] [place] [address] Care Team Providers Care Solar Designer/Installer Name Role Phone Marv Young PRINCIPAL DATA ARCHITECT Primary Care Provide r Reason for Visit * Reason Onset Date Comments Question 03/24/2023 Encounter Details Date Type Department Care Team (Late st Contact Info) Description 03/24/2023 Telephone [facility] Medical [facility] Family & Internal Medicine [facility] [address] [place] [address] Marv Young, PRINCIPAL DATA ARCHITECT [address] [place] [address] [place] [address] Question Social History Tobacco Use Types Packs/Day [...] as of this encounter Progress Notes * Cami Rajan RN - 03/25/2023 2:36 PM CST Nurse spoke with pt and she stated she is still coughing up phlegm. Per Aman, she needs to give theABT some time to work and if not feeling well a few days after ABT course is finished, then she needs ot come in. Pt v/u and denied any further questions. SALES REPRESENTATIVE * Stacy Marcia Isaac - 03/24/2023 2:50 PM CST PT called wanting to talk with nurse about concussion please call abck at [phone] SALES REPRESENTATIVE documented in this encounter Plan of Treatment Upcoming Encounters Date Type Department Care Team (Late st Contact [facility]) Description 02/12/2024 9:00 AM HVAC SALES REPRESENTATIVE Appointment [facility] [id number] [place] [address] [place] [address] [place] [address] [place] [address] [place] [address] 02/12/2024 2:00 PM HVAC SALES REPRESENTATIVE Appointment [facility] [address] [place] [address] [place] [address] [place] [address] 02/16/2024 9:00 AM HVAC SALES REPRESENTATIVE Appointment [facility] [address] [place] [address] [place] [address] [place] [address] [place] [address] [place] [address] 02/19/2024 8:45 AM HVAC SALES REPRESENTATIVE Appointment [facility] [address] [place] [address] [place] [address] [place] [address] [place] [address] [place] [address] 02/19/2024 9:00 AM HVAC SALES REPRESENTATIVE Appointment [facility] [address] [place] [address] [place] [address] [place] [address] [place] [address] [place] [address] 02/23/2024 9:00 AM HVAC SALES REPRESENTATIVE Appointment [facility] [address] [place] [address] [place] [address] [place] [address] [place] [address] [place] [address] 02/24/2024 1:30 PM HVAC SALES REPRESENTATIVE Appointment [facility] [address] [place] [address] [place] [address] 02/26/2024 9:00 AM HVAC SALES REPRESENTATIVE Appointment [facility] [address] [place] [address] [place] [address] [place] [address] [place] [address] [place] [address] 02/26/2024 9:15 AM HVAC SALES REPRESENTATIVE Appointment [facility] [address] [place] [address] [place] [address] [place] [address] [place] [address] [place] [address] 03/01/2024 9:00 AM HVAC SALES REPRESENTATIVE Appointment [facility] [address] [place] [address] [place] [address] [place] [address] [place] [address] [place] [address] Lorene Branch, ZINC CHLORIDE OPERATOR 03/02/2024 12:27 PM HVAC SALES REPRESENTATIVE Hospital Encounter [facility] [id number] [place] [address] [place] [address] [place] [address] 03/02/2024 12:27 PM HVAC SALES REPRESENTATIVE - 03/02/2024 1:07 PM HVAC SALES REPRESENTATIVE Surgery [facility] [address] [place] [address] Ihsan Logan, [address] [place] [address] MANIPULATION SHOULDER 03/05/2024 9:00 AM HVAC SALES REPRESENTATIVE Appointment [facility] [address] [place] [address] [place] [address] [place] [address] Lorene Branch, ZINC CHLORIDE OPERATOR 03/08/2024 9:00 AM HVAC SALES REPRESENTATIVE Appointment [facility] [address] [place] [address] [place] [address] [place] [address] Lorene Branch, ZINC CHLORIDE OPERATOR 03/11/2024 9:15 AM HVAC SALES REPRESENTATIVE Appointment [facility] [address] [place] [address] [place] [address] [place] [address] Lorene Branch, ZINC CHLORIDE OPERATOR 03/15/2024 9:00 AM HVAC SALES REPRESENTATIVE Appointment [facility] [address] [place] [address] [place] [address] [place] [address] Lorene Branch, ZINC CHLORIDE OPERATOR 03/18/2024 9:15 AM HVAC SALES REPRESENTATIVE Appointment [facility] [address] [place] [address] [place] [address] [place] [address] Jose Carlos Lorene Marcia, ZINC CHLORIDE OPERATOR 03/22/2024 9:00 AM HVAC SALES REPRESENTATIVE Appointment [facility] [address] [place] [address] [place] [address] [place] [address] Lorene Branch Marcia, ZINC CHLORIDE OPERATOR 03/25/2024 9:15 AM HVAC SALES REPRESENTATIVE Appointment [facility] [address] [place] [address] [place] [address] [place] [address] Lorene Branch, ZINC CHLORIDE OPERATOR 04/21/2024 11:20 AM HVAC SALES REPRESENTATIVE Office Visit [facility] Medical Group Family & Internal Medicine [facility] [address] [place] [address] [place] [address] [place] [address] Scheduled Procedures Name Priority Associated Diagnoses Date/Ti me MANIPULATION SHOULDER Adhesive capsulitis of left shoulder 03/02/2024 12:27 PM HVAC SALES REPRESENTATIVE INJECTION JOINT Adhesive capsulitis of left shoulder 03/02/2024 12:27 PM HVAC SALES REPRESENTATIVE documented as of this encounter Visit Diagnoses Not on filedocumented in this encounter Additional Health Concerns Assessment Noted Time PHQ-9 Depression Total Score: 5 03/18/19 24 2:22 PM HVAC SALES REPRESENTATIVE documented as of this encounter Care Teams Solar Designer/Installer Relationship Specialty Start Date End Date Marv Young NP PCP - General NURSE PRACTITIONER ADULT HEALTH 03/11/23 09/14/23 documented as of this encounter
--- OUTSIDE RECORDS SUMMARY | 2024-02-12 03:32 | XMS_ITS | Encounter Summary ---
Author Organization [facility] Address [facility] [place] [address] [place] [address] Care Team Providers Care Heavy Forger Name Role Phone Marv Young NP Primary Care Provide r Encounter Details Date Type Department Care Team (Latest Contact Info) Description 03/21/2023 Travel Social History Tobacco Use Types Packs/Day [...] Contact Info) Description 02/12/2024 9:00 AM BATCH ROLLER OPERATOR Appointment [facility] [address] [place] [address] [place] [address] [place] [address] [place] [address] [place] [address] 02/12/2024 2:00 PM BATCH ROLLER OPERATOR Appointment [facility] [address] [place] [address] [place] [address] [place] [address] 02/16/2024 9:00 AM BATCH ROLLER OPERATOR Appointment [facility] [address] [place] [address] [place] [address] [place] [address] [place] [address] [place] [address] 02/19/2024 8:45 AM BATCH ROLLER OPERATOR Appointment [facility] [address] [place] [address] [place] [address] [place] [address] [place] [address] [place] [address] 02/19/2024 9:00 AM BATCH ROLLER OPERATOR Appointment [facility] [address] [place] [address] [place] [address] [place] [address] [place] [address] [place] [address] 02/23/2024 9:00 AM BATCH ROLLER OPERATOR Appointment [facility] [address] [place] [address] [place] [address] [place] [address] [place] [address] [place] [address] 02/24/2024 1:30 PM BATCH ROLLER OPERATOR Appointment [facility] MRI [address] [place] [address] Ihsan Logan, [address] [place] [address] 02/26/2024 9:00 AM BATCH ROLLER OPERATOR Appointment [facility] [address] [place] [address] [place] [address] [place] [address] [place] [address] [place] [address] 02/26/2024 9:15 AM BATCH ROLLER OPERATOR Appointment [facility] [address] [place] [address] [place] [address] [place] [address] [place] [address] [place] [address] 03/01/2024 9:00 AM BATCH ROLLER OPERATOR Appointment [facility] [address] [place] [address] [place] [address] [place] [address] [place] [address] [place] [address] Lorene Branch, HALFWAY HOUSE COUNSELOR 03/02/2024 12:27 PM BATCH ROLLER OPERATOR Hospital Encounter [facility] [address] [place] [address] [place] [address] [place] [address] 03/02/2024 12:27 PM BATCH ROLLER OPERATOR - 03/02/2024 1:07 PM BATCH ROLLER OPERATOR Surgery [facility] [address] [place] [address] [place] [address] [place] [address] MANIPULATION SHOULDER 03/05/2024 9:00 AM BATCH ROLLER OPERATOR Appointment [facility] [address] [place] [address] [place] [address] [place] [address] Lorene Branch, HALFWAY HOUSE COUNSELOR 03/08/2024 9:00 AM BATCH ROLLER OPERATOR Appointment [facility] [address] [place] [address] [place] [address] [place] [address] Lorene Branch, HALFWAY HOUSE COUNSELOR 03/11/2024 9:15 AM BATCH ROLLER OPERATOR Appointment [facility] [address] [place] [address] [place] [address] [place] [address] Lorene Branch, HALFWAY HOUSE COUNSELOR 03/15/2024 9:00 AM BATCH ROLLER OPERATOR Appointment [facility] [address] [place] [address] [place] [address] [place] [address] Lorene Branch, HALFWAY HOUSE COUNSELOR 03/18/2024 9:15 AM BATCH ROLLER OPERATOR Appointment [facility] [address] [place] [address] [place] [address] [place] [address] Lorene Branch, HALFWAY HOUSE COUNSELOR 03/22/2024 9:00 AM BATCH ROLLER OPERATOR Appointment [facility] [address] [place] [address] [place] [address] [place] [address] Lorene Branch, HALFWAY HOUSE COUNSELOR 03/25/2024 9:15 AM BATCH ROLLER OPERATOR Appointment [facility] [address] [place] [address] [place] [address] [place] [address] Lorene Branch, HALFWAY HOUSE COUNSELOR 04/21/2024 11:20 AM BATCH ROLLER OPERATOR Office Visit [facility] Medical Group Family & Internal Medicine - [address] [address] [place] [address] [place] [address] Scheduled Procedures Name Priority Associated Diagnoses Date/Ti me MANIPULATION SHOULDER Adhesive capsulitis of left shoulder 03/02/2024 12:27 PM BATCH ROLLER OPERATOR INJECTION JOINT Adhesive capsulitis of left shoulder 03/02/2024 12:27 PM BATCH ROLLER OPERATOR documented as of this encounter Visit Diagnoses Not on filedocumented in this encounter Additional Health Concerns Assessment Noted Time PHQ-9 Depression Total Score: 5 03/18/19 24 2:22 PM BATCH ROLLER OPERATOR documented as of this encounter Care Teams Heavy Forger Relationship Specialty Start Date End Date Marv Young NP PCP - General NURSE PRACTITIONER ADULT HEALTH 03/11/23 09/14/23 documented as of this encounter
--- OUTSIDE RECORDS SUMMARY | 2024-02-12 03:32 | XMS_ITS | Encounter Summary ---
Author Organization [facility] Address [facility] [place] [address] [place] [address] Care Team Providers Care Pharmacy Care Coordinator Name Role Phone Marv Young NP Primary Care Provide r Encounter Details Date Type Department Care Team (Latest Contact Info) Description 04/01/2023 Travel Social History Tobacco Use Types Packs/Day [...] st Contact Info) Description 02/12/2024 9:00 AM GROUP PROGRAM MANAGER Appointment [facility] [address] [place] [address] [place] [address] [place] [address] [place] [address] [place] [address] 02/12/2024 2:00 PM GROUP PROGRAM MANAGER Appointment [facility] MRI [address] [place] [address] [place] [address] [place] [address] 02/16/2024 9:00 AM GROUP PROGRAM MANAGER Appointment [facility] [address] [place] [address] [place] [address] [place] [address] [place] [address] [place] [address] 02/19/2024 8:45 AM GROUP PROGRAM MANAGER Appointment [facility] [address] [place] [address] [place] [address] [place] [address] [place] [address] [place] [address] 02/19/2024 9:00 AM GROUP PROGRAM MANAGER Appointment [facility] [address] [place] [address] [place] [address] [place] [address] [place] [address] [place] [address] 02/23/2024 9:00 AM GROUP PROGRAM MANAGER Appointment [facility] [address] [place] [address] [place] [address] [place] [address] [place] [address] [place] [address] 02/24/2024 1:30 PM GROUP PROGRAM MANAGER Appointment [facility] [address] [place] [address] [place] [address] [place] [address] 02/26/2024 9:00 AM GROUP PROGRAM MANAGER Appointment [facility] [address] [place] [address] [place] [address] [place] [address] [place] [address] [place] [address] 02/26/2024 9:15 AM GROUP PROGRAM MANAGER Appointment [facility] [address] [place] [address] [place] [address] [place] [address] [place] [address] [place] [address] 03/01/2024 9:00 AM GROUP PROGRAM MANAGER Appointment [facility] [address] [place] [address] [place] [address] [place] [address] [place] [address] [place] [address] Lorene Branch, MEDICAL ASSISTANT DERMATOLOGY 03/02/2024 12:27 PM GROUP PROGRAM MANAGER Hospital Encounter [facility] Surgery [address] [place] [address] [place] [address] [place] [address] 03/02/2024 12:27 PM GROUP PROGRAM MANAGER - 03/02/2024 1:07 PM GROUP PROGRAM MANAGER Surgery [address] [address] [place] [address] [place] [address] MANIPULATION SHOULDER 03/05/2024 9:00 AM GROUP PROGRAM MANAGER Appointment [facility] [address] [place] [address] [place] [address] [place] [address] Lorene Branch, MEDICAL ASSISTANT DERMATOLOGY 03/08/2024 9:00 AM GROUP PROGRAM MANAGER Appointment [facility] [address] [place] [address] [place] [address] [place] [address] Lorene Branch, MEDICAL ASSISTANT DERMATOLOGY 03/11/2024 9:15 AM GROUP PROGRAM MANAGER Appointment [facility] [address] [place] [address] [place] [address] [place] [address] Lorene Branch, MEDICAL ASSISTANT DERMATOLOGY 03/15/2024 9:00 AM GROUP PROGRAM MANAGER Appointment [facility] [address] [place] [address] [place] [address] [place] [address] Lorene Branch, MEDICAL ASSISTANT DERMATOLOGY 03/18/2024 9:15 AM GROUP PROGRAM MANAGER Appointment [facility] [address] [place] [address] [place] [address] [place] [address] Lorene Branch, MEDICAL ASSISTANT DERMATOLOGY 03/22/2024 9:00 AM GROUP PROGRAM MANAGER Appointment [facility] [address] [place] [address] [place] [address] [place] [address] Lorene Branch, MEDICAL ASSISTANT DERMATOLOGY 03/25/2024 9:15 AM GROUP PROGRAM MANAGER Appointment [facility] [address] [place] [address] [place] [address] [place] [address] Lorene Branch, MEDICAL ASSISTANT DERMATOLOGY 04/21/2024 11:20 AM GROUP PROGRAM MANAGER Office Visit [facility] Medical Group Family & Internal Medicine - [facility] [address] [place] [address] [place] [address] [place] [address] Scheduled Procedures Name Priority Associated Diagnoses Date/Ti me MANIPULATION SHOULDER Adhesive capsulitis of left shoulder 03/02/2024 12:27 PM GROUP PROGRAM MANAGER INJECTION JOINT Adhesive capsulitis of left shoulder 03/02/2024 12:27 PM GROUP PROGRAM MANAGER documented as of this encounter Visit Diagnoses Not on filedocumented in this encounter Additional Health Concerns Assessment Noted Time PHQ-9 Depression Total Score: 5 03/18/19 2:22 PM GROUP PROGRAM MANAGER documented as of this encounter Care Teams Pharmacy Care Coordinator Relationship Specialty Start Date End Date Marv Young NP PCP - General NURSE PRACTITIONER ADULT HEALTH 03/11/23 09/14/23 documented as of this encounter
--- OUTSIDE RECORDS SUMMARY | 2024-02-12 03:32 | XMS_ITS | Encounter Summary ---
Author Organization [facility] Address [facility] [place] [address] [place] [address] Care Team Providers Care Visitor Services Representative Name Role Phone Marv Young NP Primary Care Provide r Encounter Details Date Type Department Care Team (Latest Contact Info) Description 03/20/2023 Travel Social History Tobacco Use Types Packs/Day [...] st Contact Info) Description 02/12/2024 9:00 AM DRUM LOADER AND UNLOADER Appointment [facility] [address] [place] [address] [place] [address] [place] [address] [place] [address] [place] [address] 02/12/2024 2:00 PM DRUM LOADER AND UNLOADER Appointment [facility] MRI [address] [place] [address] [place] [address] [place] [address] 02/16/2024 9:00 AM DRUM LOADER AND UNLOADER Appointment [facility] [address] [place] [address] [place] [address] [place] [address] [place] [address] [place] [address] 02/19/2024 8:45 AM DRUM LOADER AND UNLOADER Appointment [facility] [address] [place] [address] [place] [address] [place] [address] [place] [address] [place] [address] 02/19/2024 9:00 AM DRUM LOADER AND UNLOADER Appointment [facility] [address] [place] [address] [place] [address] [place] [address] [place] [address] [place] [address] 02/23/2024 9:00 AM DRUM LOADER AND UNLOADER Appointment [facility] [address] [place] [address] [place] [address] [place] [address] [place] [address] [place] [address] 02/24/2024 1:30 PM DRUM LOADER AND UNLOADER Appointment [facility] MRI [address] [place] [address] Ihsan Logan, [address] [place] [address] 02/26/2024 9:00 AM DRUM LOADER AND UNLOADER Appointment [facility] [address] [place] [address] [place] [address] [place] [address] [place] [address] [place] [address] 02/26/2024 9:15 AM DRUM LOADER AND UNLOADER Appointment [facility] [address] [place] [address] [place] [address] [place] [address] [place] [address] [place] [address] 03/01/2024 9:00 AM DRUM LOADER AND UNLOADER Appointment [facility] [address] [place] [address] [place] [address] [place] [address] [place] [address] [place] [address] Lorene Branch, ANDROID FRAMEWORK DEVELOPER 03/02/2024 12:27 PM DRUM LOADER AND UNLOADER Hospital Encounter [facility] Surgery [address] [place] [address] [place] [address] [place] [address] 03/02/2024 12:27 PM DRUM LOADER AND UNLOADER - 03/02/2024 1:07 PM DRUM LOADER AND UNLOADER Surgery [facility] Surgery [address] [place] [address] [place] [address] [place] [address] MANIPULATION SHOULDER 03/05/2024 9:00 AM DRUM LOADER AND UNLOADER Appointment [facility] [address] [place] [address] [place] [address] [place] [address] Lorene Branch, ANDROID FRAMEWORK DEVELOPER 03/08/2024 9:00 AM DRUM LOADER AND UNLOADER Appointment [facility] [address] [place] [address] [place] [address] [place] [address] Lorene Branch, ANDROID FRAMEWORK DEVELOPER 03/11/2024 9:15 AM DRUM LOADER AND UNLOADER Appointment [facility] [address] [place] [address] [place] [address] [place] [address] Lorene Branch, ANDROID FRAMEWORK DEVELOPER 03/15/2024 9:00 AM DRUM LOADER AND UNLOADER Appointment [facility] [address] [place] [address] [place] [address] [place] [address] Lorene Branch, ANDROID FRAMEWORK DEVELOPER 03/18/2024 9:15 AM DRUM LOADER AND UNLOADER Appointment [facility] [address] [place] [address] [place] [address] [place] [address] Lorene Branch, ANDROID FRAMEWORK DEVELOPER 03/22/2024 9:00 AM DRUM LOADER AND UNLOADER Appointment [facility] [address] [place] [address] [place] [address] [place] [address] Lorene Branch, ANDROID FRAMEWORK DEVELOPER 03/25/2024 9:15 AM DRUM LOADER AND UNLOADER Appointment [facility] [address] [place] [address] [place] [address] [place] [address] Lorene Branch, ANDROID FRAMEWORK DEVELOPER 04/21/2024 11:20 AM DRUM LOADER AND UNLOADER [facility] Family & Internal Medicine - [address] [address] [place] [address] [place] [address] Scheduled Procedures Name Priority Associated Diagnoses Date/Ti me MANIPULATION SHOULDER Adhesive capsulitis of left shoulder 03/02/2024 12:27 PM DRUM LOADER AND UNLOADER INJECTION JOINT Adhesive capsulitis of left shoulder 03/02/2024 12:27 PM DRUM LOADER AND UNLOADER documented as of this encounter Visit Diagnoses Not on filedocumented in this encounter Additional Health Concerns Assessment Noted Time PHQ-9 Depression Total Score: 5 03/18/19 24 2:22 PM DRUM LOADER AND UNLOADER documented as of this encounter Care Teams Visitor Services Representative Relationship Specialty Start Date End Date Marv Young NP PCP - General NURSE PRACTITIONER ADULT HEALTH 03/11/23 09/14/23 documented as of this encounter
--- OUTSIDE RECORDS SUMMARY | 2024-02-12 03:32 | XMS_ITS | Encounter Summary ---
Author Organization [facility] Address [facility] [place] [address] [place] [address] Care Team Providers Care Gin Inspector Name Role Phone Marv Young ACTIVITY THERAPY SPECIALIST Primary Care Provide r Reason for Visit * Reason Onset Date Comments Back Pain 03/18/2023 Head injury Encounter Details Date Type Department Care Team (Late st Contact Info) Description 03/18/2023 Telephone [facility] Family & Internal Medicine [address] [address] Marv Young, ACTIVITY THERAPY SPECIALIST 6 [facility] [place] [address] Back Pain (Head injury ) Social History Tobacco Use Types Packs/Day [...] Progress Notes * Clarice Crooks RN - 03/19/2023 1:52 PM CST Patient aware and states she will go to the ER when her gets home- informed her of the appt scheduled for tomorrow at [facility] * Isabela Dias RN - 03/19/2023 9:23 AM CST FYI. Thanks! Zamudio LPN - 03/19/2023 8:01 AM CST I called and spoke to April Young's RN reported all info and recommend to go to ER Pt should wait until gets ok from MD or PCP before taking anymore migraine medicine Which I have informed pt of Zamudio LPN - 03/19/2023 7:49 AM CST Pt called crying about BENOIT shoulder and neck pain prone to migraines she took her migraine med x 2 did not help She is wanting to get something for pain states IBU in not working either Pt con't to have slow speech and word retrieval difficulty PCP Seen pt in office 03/18/23 but he is not in office today I do not have appt today Told her she could go back to ER R/T to concussion and increased BENOIT She denies having blurred vision or seeing spots Not sure if pt is going to go to ER Please call pt back Dias RN - 03/18/2023 10:44 AM CST Just FYI. Thanks! Zamudio LPN - 03/18/2023 10:27 AM CST Pt called this AM stating she fell 03/17/23 hit head went to [place] ER she has a concussion and she is having word retrieval problems and foggy brain I spoke to April Young and he is aware pt already has appt this afternoon to est care Tho she is a previous pt of [facility] She just called again stating she has back pain and thinks she needs a x-ray will add to appt notes [phone] ER BOSS documented in this encounter Plan of Treatment Upcoming Encounters Date Type Department Care Team (Late st Contact Info) Description 02/12/2024 9:00 AM BE[address] [facility] [address] [place] [address] [place] [address] [place] [address] [place] [address] [place], [place] [address] 02/12/2024 2:[address] [facility] [address] [place] [address] [place] [address] [place] [address] 02/16/2024 9:00 AM BEATER [address] [facility] [address] [place] [address] [place] [address] [place] [address] [place] [address] [place] [address] 02/19/2024 8:45 AM [address] [facility] [address] [place] [address] [place] [address] [place] [address] [place] [address] [place] [address] 02/19/2024 9:00 AM BEATER BOSS Appointment [facility] [address] [place] [address] [place] [address] [place] [address] [place] [address] [place] [address] 02/23/2024 9:00 AM BEATER BOSS Appointment [facility] [address] [place] [address] [place] [address] [place] [address] Holger Soriano, TYLER [address] [place] [address] 02/24/2024 1:30 PM BEATER BOSS Appointment [facility] MRI [address] [place] [address] Ihsan Logan, [address] [place] [address] 02/26/2024 9:00 AM BEATER BOSS Appointment [facility] [address] [place] [address] [place] [address] [place] [address] [place] [address] [place] [address] 02/26/2024 9:15 AM BEATER BOSS Appointment [facility] [address] [place] [address] [place] [address] [place] [address] [place] [address] [place] [address] 03/01/2024 9:00 AM BEATER BOSS Appointment [facility] [address] [place] [address] [place] [address] [place] [address] [place] [address] [place] [address] Lorene Branch, OPTICAL ENGINEERING TECHNICIAN 03/02/2024 12:27 PM BEATER BOSS Hospital Encounter [facility] [address] [address] [place] [address] [place] [address] 03/02/2024 12:27 PM BEATER BOSS - 03/02/2024 1:07 PM BEATER BOSS Surgery [facility] Surgery [address] [place] [address] [place] [address] [place] [address] MANIPULATION SHOULDER 03/05/2024 9:00 AM BEATER BOSS Appointment [facility] [address] [place] [address] [place] [address] [place] [address] Lorene Branch, OPTICAL ENGINEERING TECHNICIAN 03/08/2024 9:00 AM BEATER BOSS Appointment [facility] [address] [place] [address] [place] [address] [place] [address] Lorene Branch, OPTICAL ENGINEERING TECHNICIAN 03/11/2024 9:15 AM BEATER BOSS Appointment [facility] [address] [place] [address] [place] [address] [place] [address] Lorene Branch, OPTICAL ENGINEERING TECHNICIAN 03/15/2024 9:00 AM BEATER BOSS Appointment [facility] [address] [place] [address] [place] [address] [place] [address] Lorene Branch, OPTICAL ENGINEERING TECHNICIAN 03/18/2024 9:15 AM BEATER BOSS Appointment [facility] [address] [place] [address] [place] [address] [place] [address] Lorene Branch, OPTICAL ENGINEERING TECHNICIAN 03/22/2024 9:00 AM BEATER BOSS Appointment [facility] [address] [place] [address] [place] [address] [place] [address] Lorene Branch, OPTICAL ENGINEERING TECHNICIAN 03/25/2024 9:15 AM BEATER BOSS Appointment [facility] [address] [place] [address] [place] [address] [place] [address] Lorene Branch, OPTICAL ENGINEERING TECHNICIAN 04/21/2024 11:20 AM BEATER BOSS Office Visit [facility] Family & Internal Medicine [facility] [address] [place] [phone] [place] [address] [place] [address] Scheduled Procedures Name Priority Associated Diagnoses Date/Ti me MANIPULATION SHOULDER Adhesive capsulitis of left shoulder 03/02/2024 12:27 PM BEATER BOSS INJECTION JOINT Adhesive capsulitis of left shoulder 03/02/2024 12:27 PM BEATER BOSS documented as of this encounter Visit Diagnoses Not on filedocumented in this encounter Additional Health Concerns Assessment Noted Time PHQ-9 Depression Total Score: 5 03/18/19 24 2:22 PM BEATER BOSS documented as of this encounter Care Teams Gin Inspector Relationship Specialty Start Date End Date Marv Young NP PCP - General NURSE PRACTITIONER ADULT HEALTH 03/11/23 09/14/23 documented as of this encounter
--- OUTSIDE RECORDS SUMMARY | 2024-02-12 03:32 | XMS_ITS | Encounter Summary ---
Author Organization [facility] Address Critical access hospital6 [facility] [place] [address] [place] [address] Care Team Providers Care Real Estate Recruiter Name Role Phone aMrv Young NP Primary Care Provide r Encounter Details Date Type Department Care Team (Latest Contact Info) Description 03/18/2023 Travel Social History Tobacco Use Types Packs/Day [...] st Contact Info) Description 02/12/2024 9:00 AM AIRBORNE ELECTRONICS ANALYST Appointment [facility] [address] [place] [address] [place] [address] [place] [address] [place] [address] [place] [address] 02/12/2024 2:00 PM AIRBORNE ELECTRONICS ANALYST Appointment [facility] [place] [address] [place] [address] [place] [address] [place] [address] 02/16/2024 9:00 AM AIRBORNE ELECTRONICS ANALYST Appointment [facility] [address] [place] [address] [place] [address] [place] [address] [place] [address] [place] [address] 02/19/2024 8:45 AM AIRBORNE ELECTRONICS ANALYST Appointment [facility] [address] [place] [address] [place] [address] [place] [address] [place] [address] [place] [address] 02/19/2024 9:00 AM AIRBORNE ELECTRONICS ANALYST Appointment [facility] [address] [place] [address] [place] [address] [place] [address] [place] [address] [place] [address] 02/23/2024 9:00 AM AIRBORNE ELECTRONICS ANALYST Appointment [facility] [address] [place] [address] [place] [address] [place] [address] [place] [address] [place] [address] 02/24/2024 1:30 PM AIRBORNE ELECTRONICS ANALYST Appointment [facility] MRI [address] [place] [address] Ihsan Logan, [address] [place] [address] 02/26/2024 9:00 AM AIRBORNE ELECTRONICS ANALYST Appointment [facility]hab [address] [place] [address] [place] [address] [place] [address] [place] [address] [place] [address] 02/26/2024 9:15 AM AIRBORNE ELECTRONICS ANALYST Appointment [facility] [address] [place] [address] [place] [address] [place] [address] [place] [address] [place] [address] 03/01/2024 9:00 AM AIRBORNE ELECTRONICS ANALYST Appointment [facility] [address] [place] [address] [place] [address] [place] [address] [place] [address] [place] [address] Lorene Branch, WILDLIFE CONTROL AGENT 03/02/2024 12:27 PM AIRBORNE ELECTRONICS ANALYST Hospital Encounter [facility] Surgery [address] [place] [address] [place] [address] [place] [address] 03/02/2024 12:27 PM AIRBORNE ELECTRONICS ANALYST - 03/02/2024 1:07 PM AIRBORNE ELECTRONICS ANALYST Surgery [facility] Surgery [address] [place] [address] [place] [address] [place] [address] MANIPULATION SHOULDER 03/05/2024 9:00 AM AIRBORNE ELECTRONICS ANALYST Appointment [facility] [address] [place] [address] [place] [address] [place] [address] Lorene Branch, WILDLIFE CONTROL AGENT 03/08/2024 9:00 AM AIRBORNE ELECTRONICS ANALYST Appointment [facility] [address] [place] [address] [place] [address] [place] [address] Lorene Branch, WILDLIFE CONTROL AGENT 03/11/2024 9:15 AM AIRBORNE ELECTRONICS ANALYST Appointment [facility] [address] [place] [address] [place] [address] [place] [address] Lorene Branch, WILDLIFE CONTROL AGENT 03/15/2024 9:00 AM AIRBORNE ELECTRONICS ANALYST Appointment [facility] [address] [place] [address] [place] [address] [place] [address] Lorene Branch, WILDLIFE CONTROL AGENT 03/18/2024 9:15 AM AIRBORNE ELECTRONICS ANALYST Appointment [facility] [address] [place] [address] [place] [address] [place] [address] Lorene Branch, WILDLIFE CONTROL AGENT 03/22/2024 9:00 AM AIRBORNE ELECTRONICS ANALYST Appointment [facility] [address] [place] [address] [place] [address] [place] [address] Lorene Branch, WILDLIFE CONTROL AGENT 03/25/2024 9:15 AM AIRBORNE ELECTRONICS ANALYST Appointment [facility] [address] [place] [address] [place] [address] [place] [address] Lorene Branch, WILDLIFE CONTROL AGENT 04/21/2024 11:20 AM AIRBORNE ELECTRONICS ANALYST Office Visit [facility] Family & Internal Medicine - [address] [address] [place] [address] [place] [address] Scheduled Procedures Name Priority Associated Diagnoses Date/Ti me MANIPULATION SHOULDER Adhesive capsulitis of left shoulder 03/02/2024 12:27 PM AIRBORNE ELECTRONICS ANALYST INJECTION JOINT Adhesive capsulitis of left shoulder 03/02/2024 12:27 PM AIRBORNE ELECTRONICS ANALYST documented as of this encounter Visit Diagnoses Not on filedocumented in this encounter Additional Health Concerns Assessment Noted Time PHQ-9 Depression Total Score: 5 03/18/19 24 2:22 PM AIRBORNE ELECTRONICS ANALYST documented as of this encounter Care Teams Real Estate Recruiter Relationship Specialty Start Date End Date Marv Young NP PCP - General NURSE PRACTITIONER ADULT HEALTH 03/11/23 09/14/23 documented as of this encounter
--- OUTSIDE RECORDS SUMMARY | 2024-02-12 03:32 | XMS_ITS | Encounter Summary ---
Author Organization [facility] Address Critical access hospital6 [facility] [place] [address] [place] [address] Care Team Providers Care Overhead Door Technician Name Role Phone Marv Young EDUCATIONAL THERAPIST Primary Care Provide r Reason for Visit * Reason Onset Date Comments Advice 03/19/2023 Encounter Details Date Type Department Care Team (Late st Contact Info) Description 03/19/2023 Telephone [facility] Family & Internal Medicine [facility] [address] [place] [address] Marv Young, EDUCATIONAL THERAPIST [address] [place] [address] [place] [address] Advice Social History Tobacco Use Types Packs/Day Years [...] Notes * Clarice Crooks RN - 03/19/2023 11:39 AM CST Called and spoke with CS-new order entered for MRI Brain WO -scheduled for tomorrow at 1630 at [facility] mobile unit-patient will need to arrive approx 1615 and register at the main registration desk at [facility]. Message left for patient to return call to be informed of this information. CTOR TALENT MANAGEMENT * Isabela Dias RN - 03/19/2023 10:47 AM CST LVM for pt to call office. Marv placed order for MRI to be STAT. Can pt come today for this? Is she wanting this still at [facility]? CTOR TALENT MANAGEMENT * Isabela Dias RN - 03/19/2023 9:13 AM CST Please advise. Thanks! CTOR TALENT MANAGEMENT * Jen De Guzman - 03/19/2023 8:16 AM CST Pt called as her appt for MRI is not till 03/26 and her work note is to return to work on 03/24. If the provider wants the Mri sooner, please change the order to [facility]. If not pt will need a new work note with a ate after 03.26.2023. Please advise, thanks CTOR TALENT MANAGEMENT documented in this encounter Plan of Treatment Upcoming Encounters Date Type Department Care Team (Late st Contact Info) Description 02/12/2024 9:00 AM DIRECTOR TALENT MANAGEMENT Appointment [facility] [address] [place], [place] [address] [place] [address] [place] [address] [place] [address] [place], [place] [address] 02/12/2024 2:00 PM DIRECTOR TALENT MANAGEMENT Appointment [facility] [address] [place] [address] [place] [address] [place] [address] 02/16/2024 9:00 AM DIRECTOR TALENT MANAGEMENT Appointment [facility] [address] [place] [address] [place] [address] [place] [address] [place] [address] [place] [address] 02/19/2024 8:45 AM DIRECTOR TALENT MANAGEMENT Appointment [facility] [address] [place] [address] [place] [address] [place] [address] [place] [address] [place] [address] 02/19/2024 9:00 AM DIRECTOR TALENT MANAGEMENT Appointment [facility] [address] [place] [address] [place] [address] [place] [address] [place] [address] [place] [address] 02/23/2024 9:00 AM DIRECTOR TALENT MANAGEMENT Appointment [facility] [address] [place] [address] [place] [address] [place] [address] [place] [address] [place] [address] 02/24/2024 1:30 PM DIRECTOR TALENT MANAGEMENT Appointment [address] [address] Ihsan Logan, [address] [place] [address] 02/26/2024 9:00 AM DIRECTOR TALENT MANAGEMENT Appointment [facility] [address] [place] [address] [place] [address] [place] [address] [place] [address] [place] [address] 02/26/2024 9:15 AM DIRECTOR TALENT MANAGEMENT Appointment [facility] [address] [place] [address] [place] [address] [place] [address] [place] [address] [place] [address] 03/01/2024 9:00 AM DIRECTOR TALENT MANAGEMENT Appointment [facility] [address] [place] [address] [place] [address] [place] [address] [place] [address] [place] [address] Lorene Branch, ONCOLOGY SOCIAL WORKER 03/02/2024 12:27 PM DIRECTOR TALENT MANAGEMENT Hospital Encounter [facility] [address] [place] [address] [place] [address] [place] [address] 03/02/2024 12:27 PM DIRECTOR TALENT MANAGEMENT - 03/02/2024 1:07 PM DIRECTOR TALENT MANAGEMENT Surgery [facility] [address] [place] [address] [place] [address] [place] [address] MANIPULATION SHOULDER 03/05/2024 9:00 AM DIRECTOR TALENT MANAGEMENT Appointment [facility] [address] [place] [address] [place] [address] [place] [address] Lorene Branch, ONCOLOGY SOCIAL WORKER 03/08/2024 9:00 AM DIRECTOR TALENT MANAGEMENT Appointment [facility] [address] [place] [address] [place] [address] [place] [address] Lorene Branch, ONCOLOGY SOCIAL WORKER 03/11/2024 9:15 AM DIRECTOR TALENT MANAGEMENT Appointment [facility] [address] [place] [address] [place] [address] [place] [address] Lorene Branch, ONCOLOGY SOCIAL WORKER 03/15/2024 9:00 AM DIRECTOR TALENT MANAGEMENT Appointment [facility] [address] [place] [address] [place] [address] [place] [address] Lorene Branch, ONCOLOGY SOCIAL WORKER 03/18/2024 9:15 AM DIRECTOR TALENT MANAGEMENT Appointment [facility] [address] [place] [address] [place] [address] [place] [address] Lorene Branch, ONCOLOGY SOCIAL WORKER 03/22/2024 9:00 AM DIRECTOR TALENT MANAGEMENT Appointment [facility] [address] [place] [address] [place] [address] [place] [address] Lorene Branch, ONCOLOGY SOCIAL WORKER 03/25/2024 9:15 AM DIRECTOR TALENT MANAGEMENT Appointment [facility] [address] [place] [address] [place] [address] [place] [address] Lorene Branch, ONCOLOGY SOCIAL WORKER 04/21/2024 11:20 AM DIRECTOR TALENT MANAGEMENT Office Visit [facility] Family & Internal Medicine [address] [address] [place] [address] [place] [address] Scheduled Procedures Name Priority Associated Diagnoses Date/Ti me MANIPULATION SHOULDER Adhesive capsulitis of left shoulder 03/02/2024 12:27 PM DIRECTOR TALENT MANAGEMENT INJECTION JOINT Adhesive capsulitis of left shoulder 03/02/2024 12:27 PM DIRECTOR TALENT MANAGEMENT documented as of this encounter Visit Diagnoses Not on filedocumented in this encounter Additional Health Concerns Assessment Noted Time PHQ-9 Depression Total Score: 5 03/18/19 2:22 PM DIRECTOR TALENT MANAGEMENT documented as of this encounter Care Teams Overhead Door Technician Relationship Specialty Start Date End Date Marv Young NP PCP - General NURSE PRACTITIONER ADULT HEALTH 03/11/23 09/14/23 documented as of this encounter
--- OUTSIDE RECORDS SUMMARY | 2024-02-12 03:32 | XMS_ITS | Encounter Summary ---
Author Organization [facility] Address [facility] [facility] [place] [address] [place] [address] Care Team Providers Care Object Oriented Developer Name Role Phone Marv Young NP Primary Care Provide r Reason for Referral * (Routine) - New Request Specialty Diagnoses / Procedures Referred By Contteri t Referred To Contact Diagnoses Laceration of skin of scalp, sequela Procedures staple removal Marv Young NP Phone: tel: fax: Referral ID Status Reason Start Date Expiration Date V isits Requested Visits Authorized [id number] New Request 03/21/2023 03/21/2024 1 1 PASTER Reason for Visit * Reason Comments Suture Removal Suture removal, havi ng blurred vision and dizziness Encounter Details Date Type Department Care Team (Late st Contact Info) Description 03/21/2023 11:40 AM CORE PASTER Office Visit [facility] Family & Internal Medicine [address] [id number] Marv Young NP [address] [place] [address] [address] [place], [place] [id number] Suture Removal (Suture removal, having blurred vision and dizziness ) Social History Tobacco Use Types Packs/Day Years Used Date Smoking Tobacco: Every Day Cigarettes Smokeless Tobacco: Never Tobacco Cessation:Ready to Q uit: Yes; Counseling Given: Yes Alcohol Use Standard Drinks/Week Comments [...] Sign Reading Time Taken Comments Blood Pressure 164/89 03/21/2023 11:39 AM CORE PASTER Pulse 94 03/21/2023 11:39 AM CORE PASTER Temperature 36.9 ??C (98.4 ??F) 03/21/2023 11:[address] Respiratory Rate 18 03/21/2023 11:39 AM CORE PASTER Oxygen Saturation 97% 03/21/2023 11:39 AM CORE PASTER Inhaled Oxygen Concentration - - Weight 86.2 kg (190 lb) 03/21/2023 11:39 AM CORE PASTER Height 157.5 cm (5' 2 ) 03/21/2023 11:39 AM CORE PASTER Body Mass Index 34.75 03/21/2023 11:39 AM CORE PASTER documented in this encounter Progress Notes * Marv Young, SKEIN MERCERIZING MACHINE OPERATOR - 03/21/2023 11:40 AM CSTAssociated Order(s): staple removal Post-Procedure Diagnose(s): Laceration of skin of scalp, sequela Images from the original note were not included. _ Reason for Visit: Suture Removal (Suture removal, having blurred vision and dizziness ) History of Present Illness: Oumou Middleton is a 47-year-old female here for evaluation through the walk in clinic for suture removal of parag placed in posterior scalp where she hit her head on ice last weekend. ROS: Review of Systems Constitutional: Negative. HENT: Negative. Eyes: Negative. Respiratory: Negative. Cardiovascular: Negative. Gastrointestinal: Negative. Endocrine: Negative. Genitourinary: Negative. Musculoskeletal: Negative. Skin: Positive for wound. [place] present in posterior scalp keeping a 4 inch laceration closed. Allergic/Immunologic: Negative. Neurological: Negative. Hematological: Negative. Psychiatric/Behavioral: [...] Outpatient Medications Marked as Taking for the 03/21/23 encounter (Office Visit) with Marv Young NP Medication Sig Dispense Refill cephALEXin (KEFLEX) 500 MG capsule Take 1 capsule (500 mg total) by mouth 2 (two) times daily for 10 days. 20 capsule 0 Review of patient's allergies indicates: Allergen Reactions Parada Anaphylaxis Iodine Rash, Hives and Other (see comment) Reaction: Hives, Iodinated Contrast Media Unknown Itching Ranitidine Unknown Risperidone Other (see comment) Reaction: OTHER REACTION History reviewed. No pertinent past medical history. History reviewed. No pertinent surgical history. Social History Tobacco Use Smoking status: Every Day Types: Cigarettes Smokeless tobacco: Never Vaping Use Vaping Use: Never used Substance Use Topics Alcohol use: Yes Drug use: Never No family history on file. No family status information on file. Physical Exam: Physical Exam Constitutional: Appearance: She is obese. HENT: Nose: Rhinorrhea present. Mouth/Throat: Posterior oropharyngeal erythema present. Eyes: Pupils: Pupils are equal, round, and reactive to light. Cardiovascular: Rate and Rhythm: Normal rate and regular rhythm. Pulmonary: Effort: Pulmonary effort is normal. Breath sounds: Normal breath sounds. Abdominal: General: Bowel sounds are normal. Musculoskeletal: General: Normal range of motion. Cervical back: Rigidity present. Skin: Comments: Laceration that his healing on posterior head. Parag and sutures both removed. Neurological: Mental Status: She is alert. Psychiatric: Mood and Affect: Mood normal. Behavior: Behavior normal. Staple removal Date/Time: 03/21/2023 12:59 PM Performed by: Marv Young NP Authorized by: Marv Young NP Body area: head/neck Location details: scalp Wound Appearance: tender, moist and clean Sutures Removed: 3 [place] Removed: 6 Patient tolerance: patient tolerated the procedure well with no immediate complications No data to display Vitals: 03/21/23 1139 BP: (!) 164/89 Pulse: 94 Body mass index is 34.75 kg/m??. Assessment and Plan Oumou was seen today for suture removal and for treatment of an acute sinus infection. Diagnoses and all orders for this visit: Acute non-recurrent ethmoidal sinusitis - cephALEXin (KEFLEX) 500 MG capsule; Take 1 capsule (500 mg total) by mouth 2 (two) times daily for 10 days. Portions of this note were dictated using [employer] speech recognition software. Occasional wrong wordor sound-alike substitutions may have occurred due to the inherent limitations of voice recognition software. Please read the chart carefully and recognize, using context, where the substitutions may have occurred. Dionne Haskins PA-C evaluated and Dr Blue Paul reviewed and agrees with plan. PASTER documented in this encounter Plan of Treatment Upcoming Encounters Date Type Department Care Team (Late st Contact Info) Description 02/12/2024 9:00 AM CORE PASTER Appointment [facility] Outpatient Rehab [address] [place] [address] [place] [address] [place] [address] [place] [address] [place] [address] 02/12/2024 2:00 PM CORE PASTER Appointment [facility] [address] [place] [address] [place] [address] [place] [address] 02/16/2024 9:00 AM CORE PASTER Appointment [facility] Outpatient [facility]hab [address] [place] [address] [place] [address] [place] [address] [place] [address] [place] [address] 02/19/2024 8:45 AM CORE PASTER Appointment [facility] Outpatient Rehab [address] [place] [address] [place] [address] [place] [address] [place] [address] [place] [address] 02/19/2024 9:00 AM CORE PASTER Appointment [facility] Outpatient [facility]hab [address] [place] [address] [place] [address] [place] [address] [place] [address] [place] [address] 02/23/2024 9:00 AM CORE PASTER Appointment [facility] Outpatient [facility]hab [address] [place] [address] [place] [address] [place] [address] [place] [address] [place] [address] 02/24/2024 1:30 PM CORE PASTER Appointment [facility] MRI [address] [place] [address] [place] [address] [place] [address] 02/26/2024 9:00 AM CORE PASTER Appointment [facility] Outpatient Rehab [address] [place] [address] [place] [address] [place] [address] [place] [address] [place] [address] 02/26/2024 9:15 AM CORE PASTER Appointment [facility]hab [address] [place] [address] [place] [address] [place] [address] [place] [address] [place] [address] 03/01/2024 9:00 AM CORE PASTER Appointment [facility] Outpatient [facility]hab [address] [place] [address] [place] [address] [place] [address] [place] [address] [place] [address] Lorene Branch PTA 03/02/2024 12:27 PM CORE PASTER Hospital Encounter [facility] Surgery [address] [place] [address] [place] [address] [place] [address] 03/02/2024 12:27 PM CORE PASTER - 03/02/2024 1:07 PM CORE PASTER Surgery [facility] [address] [place] [address] [place]DO [address] [place] [address] MANIPULATION SHOULDER 03/05/2024 9:00 AM CORE PASTER Appointment [facility] Outpatient Rehab [address] [place] [address] [place] [address] [place] [address] Lorene Branch, INTAKE WORKER 03/08/2024 9:00 AM CORE PASTER Appointment [facility] Outpatient [facility]hab [address] [place] [address] [place] [address] [place] [address] Lorene Branch, INTAKE WORKER 03/11/2024 9:15 AM CORE PASTER Appointment [facility] Out[facility]hab [address] [place] [address] [place] [address] [place] [address] Lorene Branch, INTAKE WORKER 03/15/2024 9:00 AM CORE PASTER Appointment [facility] Out[facility] [address] [place] [address] [place] [address] [place] [address] Lorene Branch, INTAKE WORKER 03/18/2024 9:15 AM CORE PASTER Appointment [facility] [address] [place] [address] [place] [address] [place] [address] Lorene Branch, INTAKE WORKER 03/22/2024 9:00 AM CORE PASTER Appointment [facility] [address] [place] [address] [place] [address] [place] [address] Lorene Branch, INTAKE WORKER 03/25/2024 9:15 AM CORE PASTER Appointment [facility] [address] [place] [address] [place] [address] [place] [address] Lorene Branch, INTAKE WORKER 04/21/2024 11:20 AM CORE PASTER Office Visit [facility] Family & Internal Medicine - [address] [id number] [place] [address] [place] [address] Scheduled Procedures Name Priority Associated Diagnoses Date/Ti me MANIPULATION SHOULDER Adhesive capsulitis of left shoulder 03/02/2024 12:27 PM CORE PASTER INJECTION JOINT Adhesive capsulitis of left shoulder 03/02/2024 12:27 PM CORE PASTER documented as of this encounter Procedures Procedure Name Priority Date/Time Associated Diagnosis Comments SUTURE REMOVAL Routine 03/21/2023 12:59 PM CORE PASTER Laceration of skin of scalp, sequela documented in this encounter Results * SUTURE REMOVAL (03/21/2023 12:59 PM CORE PASTER) Narrative Marv Young, SKEIN MERCERIZING MACHINE OPERATOR - 03/21/2023 12:59 PM CORE PASTER Marv Young NP ? 03/21/2023 ??1:02 PM Staple removal Date/Time: 03/21/2023 12:59 PM Performed by: Marv Young NP Authorized by: Marv Young NP ??Body area: head/neck Location details: scalp Wound Appearance: tender, moist and clean Sutures Removed: 3 [place] Removed: 6 Patient tolerance: patient tolerated the procedure well with no immediate complications Marv Young NP PROCEDURE/MINOR SURGI PITER ORDERABLES Final Result documented in this encounter Visit Diagnoses Diagnosis Acute non-recurrent ethmoidal sinusitis- Primary Laceration of skin of scalp, sequela Adhesive capsulitis of left shoulder Adhesive capsulitis of shoulder documented in this encounter Additional Health Concerns Assessment Noted Time PHQ-9 Depression Total Score: 5 03/18/19 24 2:22 PM CORE PASTER documented as of this encounter Care Teams Object Oriented Developer Relationship Specialty Start Date End Date Marv Young NP PCP - General NURSE PRACTITIONER ADULT HEALTH 03/11/23 09/14/23 documented as of this encounter
--- OUTSIDE RECORDS SUMMARY | 2024-02-12 03:32 | XMS_ITS | Encounter Summary ---
Author Organization [facility] Address [facility]. [place], [place] [address] [place] [id number] Care Team Providers Care Rehabilitation Services Counselor Name Role Phone Marv Quiroga NP Primary Care Provide r Reason for Visit * Reason Comments Congestion Chest rattle, draina ge. Was diagnosed with RSV on Friday. Encounter Details Date Type Department Care Team (Late st Contact Info) Description 04/01/2023 1:20 PM ELECTRICAL MAINTENANCE SUPERVISOR Office Visit [facility] Family & Internal Medicine [address] [address] Ruthy Siddiqui NP [address] [place] [address], [address] [place] [address] Congestion (Chest rattle, drainage. Was diagnosed with RSV on Friday. ) Social History Tobacco Use Types Packs/Day [...] Sign Reading Time Taken Comments Blood Pressure 139/87 04/01/2023 12:53 PM ELECTRICAL MAINTENANCE SUPERVISOR Pulse 95 04/01/2023 12:53 PM ELECTRICAL MAINTENANCE SUPERVISOR Temperature 36.8 ??C (98.2 ??F) 04/01/2023 12:[address] Respiratory Rate 20 04/01/2023 12:53 PM ELECTRICAL MAINTENANCE SUPERVISOR Oxygen Saturation 97% 04/01/2023 12:53 PM ELECTRICAL MAINTENANCE SUPERVISOR Inhaled Oxygen Concentration - - Weight 86.2 kg (190 lb) 04/01/2023 12:53 PM ELECTRICAL MAINTENANCE SUPERVISOR Height 157.5 cm (5' 2 ) 04/01/2023 12:53 PM ELECTRICAL MAINTENANCE SUPERVISOR Body Mass Index 34.75 04/01/2023 12:53 PM ELECTRICAL MAINTENANCE SUPERVISOR documented in this encounter Patient Instructions * Attachments The following attachments cannot be sent through Care Everywhere. * Respiratory Syncytial Virus Discharge Instructions, Adult (Slovak) documented in this encounter Progress Notes * Ruthy Siddiqui NP - 04/01/2023 1:20 PM CST Reason for Visit: Congestion (Chest rattle, drainage. Was diagnosed with RSV on Friday. ) History of Present Illness: Patient presents to [facility] with: RSV-- she was dx with RSV 1 week ago at [facility]. She was d/c with prednisone. She finished prednisone. Still having cough, wheezing, n/c, sinus pressure, sob. Has hx of copd and asthma. Using rescue inhaler multiple times a day. Having fevers. Took tylenol last at 0900. ROS: Review of Systems Constitutional: Positive for fever. Negative for chills and malaise/fatigue. HENT: Positive for congestion and sinus pain. Negative for ear pain and sore throat. Respiratory: Positive for cough, sputum production, shortness of breath and wheezing. Cardiovascular: Negative for chest pain. Gastrointestinal: Negative for abdominal pain, diarrhea, nausea and vomiting. Skin: Negative for rash. PHQ-9: 03/18/2023 2:22 PM PHQ2/PHQ 9 DEPRESSION SCREEN QUESTIONAIRE Little interest or pleasure in doing things Not at all Feeling down, depressed, or hopeless Several days Patient Health Questionnaire-2 Score 1 Trouble falling or staying asleep, or sleeping too much Several days Feeling tired or having little energy Several days Poor appetite or overeating Several days Feeling bad about yourself - or that you are a failure or have let yourself or your family down Notat all Trouble concentrating on things, such as reading the newspaper or watching television Several days Moving or speaking so slowly that other people could have noticed? Or the opposite - being so fidgety or restless that you have been moving around a lot more than usual. Not at all Thoughts that you would be better off or hurting yourself in some way Not at all Patient Health Questionnaire-9 Score 5 How difficult have these problems made it for you to do your work, take care of things at home, or get along with other people? Not difficult at all Medications: Current Outpatient Medications: acetaminophen (TYLENOL) 325 MG tablet, PLEASE SEE ATTACHED FOR DETAILED DIRECTIONS, Disp: , Rfl: albuterol sulfate HFA 108 (90 Base) MCG/ACT inhaler, Inhale 2 puffs into the lungs every 4 (four) hours as needed for Wheezing or Shortness of breath., Disp: 18 g, Rfl: 0 ALPRAZolam (XANAX) 0.5 MG tablet, TAKE 1 ORAL TABLET ONCE A DAY FOR ANXIETY ONSET, Disp: , Rfl: amoxicillin-clavulanate (AUGMENTIN) 875-125 MG tablet, Take 1 tablet (875 mg total) by mouth 2 (two) times daily for 10 days., Disp: 20 tablet, Rfl: 0 ARIPiprazole (ABILIFY) 15 MG tablet, Take 1 tablet (15 mg total) by mouth daily., Disp: 30 tablet, Rfl: 2 benzonatate (TESSALON PERLES) 100 MG capsule, Take 2 capsules (200 mg total) by mouth 3 (three) times daily as needed for Cough., Disp: 20 capsule, Rfl: 0 DULoxetine (CYMBALTA) 30 MG capsule, Take 1 capsule (30 mg total) by mouth 2 (two) times daily., Disp: 60 capsule, Rfl: 2 estradiol (ESTRACE) 2 MG tablet, Take 1 tablet (2 mg total) by mouth daily., Disp: 28 tablet, Rfl: 2 famotidine (PEPCID) 20 MG tablet, Take 1 tab by mouth every morning., Disp: 90 tablet, Rfl: 1 fluticasone propionate (FLONASE) 50 MCG/ACT nasal spray, 2 sprays by Each Nostril route daily. SHAKE LIQUID, Disp: , Rfl: ibuprofen (MOTRIN) 600 MG tablet, Take 1 tablet (600 mg total) by mouth every 6 (six) hours as needed., Disp: , Rfl: OZEMPIC 1 mg/dose injection (PEN), INJECT 1 MG UNDER THE SKIN ONCE WEEKLY FOR THE NEXT 12 WEEKS, Disp: , Rfl: predniSONE (DELTASONE) 20 MG tablet, Take 2 tablets (40 mg total) by mouth daily for 5 days., Disp:10 tablet, Rfl: 0 progesterone (PROMETRIUM) 100 MG capsule, Take 1 capsule (100 mg total) by mouth daily., Disp: 30 capsule, Rfl: 2 QUEtiapine (SEROQUEL) 100 MG tablet, Take 1 tablet (100 mg total) by mouth nightly at bedtime., Disp: 90 tablet, Rfl: 0 semaglutide (OZEMPIC) 1 mg/dose injection (PEN), Inject 1 mg into the skin once a week for 84 days., Disp: 3 mL, Rfl: 2 SUMAtriptan (IMITREX) 25 MG tablet, Take 1 tablet (25 mg total) by mouth daily as needed for Migraine. Max of 8 tablets (200 mg) in a 24 hour period., Disp: 30 tablet, Rfl: 2 traZODone (DESYREL) 100 MG tablet, Take 1 tablet (100 mg total) by mouth nightly at bedtime for 30 days., Disp: 30 tablet, Rfl: 2 Review of patient's allergies indicates: Allergen Reactions Parada Anaphylaxis Iodine Rash, Hives and Other (see comment) Reaction: Hives, Iodinated Contrast Media Unknown Itching Ranitidine Unknown Risperidone Other (see comment) Reaction: OTHER REACTION History reviewed. No pertinent past medical history. History reviewed. No pertinent surgical history. Social History Socioeconomic History Marital status: Social History Tobacco Use Smoking status: Former Types: Cigarettes Quit date: 03/18/2023 Years since quittin.0 Passive exposure: Current Smokeless tobacco: Never Vaping Use Vaping Use: Never used Substance Use Topics Alcohol use: Yes Drug use: Never No family history on file. No family status information on file. Filed Vitals: 04/01/23 1253 BP: 139/87 Pulse: 95 Resp: 20 Temp: 98.2 ??F (36.8 ??C) SpO2: 97% Weight: 86.2 kg (190 lb) Height: 1.575 m (5' 2 ) Physical Exam Vitals and nursing note reviewed. Constitutional: General: She is not in acute distress. Appearance: Normal appearance. She is obese. She is not ill-appearing. HENT: Head: Normocephalic and atraumatic. Right Ear: Tympanic membrane and ear canal normal. Left Ear: Tympanic membrane and ear canal normal. Nose: Congestion present. Right sinus exhibits maxillary sinus tenderness and frontal sinus tenderness. Left sinus exhibits maxillary sinus tenderness and frontal sinus tenderness. Mouth/Throat: Mucous membranes are moist. Oropharynx is clear. Eyes: Conjunctiva/sclera: Conjunctivae normal. Cardiovascular: Rate and Rhythm: Normal rate and regular rhythm. Heart sounds: Normal heart sounds. Pulmonary: Effort: Pulmonary effort is normal. No respiratory distress. Breath sounds: Wheezing present. Musculoskeletal: Cervical back: Neck supple. Lymphadenopathy: Cervical: No cervical adenopathy. Skin: General: Skin is warm and dry. Coloration: Skin is not jaundiced. Neurological: Mental Status: She is alert. Psychiatric: Behavior: Behavior is cooperative. Diagnoses/Impression: 1. Acute non-recurrent sinusitis, unspecified location amoxicillin-clavulanate (AUGMENTIN) 875-125 MG tablet 2. Acute cough benzonatate (TESSALON PERLES) 100 MG capsule albuterol sulfate HFA 108 (90 Base) MCG/ACT inhaler 3. Wheezing predniSONE (DELTASONE) 20 MG tablet albuterol sulfate HFA 108 (90 Base) MCG/ACT inhaler 4. RSV/bronchiolitis Recommendations and Plan: 1. Acute non-recurrent sinusitis, unspecified location Recommend tylenol or ibuprofen for any fever or pain, tea with honey, zyrtec or Claritin. You can also try an over the counter decongestant, but do not take products containing pseudoephedrine if youhave high blood pressure. If you have high blood pressure try Coricidin HBP cough and cold, and drink plenty of water. - amoxicillin-clavulanate (AUGMENTIN) 875-125 MG tablet; Take 1 tablet (875 mg total) by mouth 2 (two) times daily for 10 days. Dispense: 20 tablet; Refill: 0 2. Acute cough - benzonatate (TESSALON PERLES) 100 MG capsule; Take 2 capsules (200 mg total) by mouth 3 (three) times daily as needed for Cough. Dispense: 20 capsule; Refill: 0 - albuterol sulfate HFA 108 (90 Base) MCG/ACT inhaler; Inhale 2 puffs into the lungs every 4 (four)hours as needed for Wheezing or Shortness of breath. Dispense: 18 g; Refill: 0 3. Wheezing - predniSONE (DELTASONE) 20 MG tablet; Take 2 tablets (40 mg total) by mouth daily for 5 days. Dispense: 10 tablet; Refill: 0 - albuterol sulfate HFA 108 (90 Base) MCG/ACT inhaler; Inhale 2 puffs into the lungs every 4 (four)hours as needed for Wheezing or Shortness of breath. Dispense: 18 g; Refill: 0 4. RSV/bronchiolitis Provided handout for patient. Follow up with your pcp if you do not improve. Any worsening symptoms, fever not relieved by medication, chest pain, or breathing problems, then go to ER. Patient and/or caregiver verbalized understanding. I personally spent a total of 20 minutes on the day of the encounter. This includes [id number] and dvd-suep-nk-face time I provided on the day of the encounter & excludes time spent performing separately reportable services. RAVI ARGUELLO Referring Provider: No ref. provider found PCP: MARV QUIROGA NP Cosigned by Blue Paul MD at 04/02/2023 8:11 AM ELECTRICAL MAINTENANCE SUPERVISOR TRICAL MAINTENANCE SUPERVISOR TRICAL MAINTENANCE SUPERVISOR documented in this encounter Plan of Treatment Upcoming Encounters Date Type Department Care Team (Late st Contact Info) Description 02/12/2024 9:00 AM ELECTRICAL MAINTENANCE SUPERVISOR Appointment [facility] [address] [place], [place] [id number] [place] [address] [place] [address] [place] [address] [place] [address] 02/12/2024 2:00 PM ELECTRICAL MAINTENANCE SUPERVISOR Appointment [facility] [place] [address] [place] [address] [place] [address] [place] [address] 02/16/2024 9:00 AM ELECTRICAL MAINTENANCE SUPERVISOR Appointment [facility] [address] [place] [address] [place] [address] [place] [address] [place] [address] [place] [address] 02/19/2024 8:45 AM ELECTRICAL MAINTENANCE SUPERVISOR Appointment [facility] [address] [place] [address] [place] [address] [place] [address] [place] [address] [place] [address] 02/19/2024 9:00 AM ELECTRICAL MAINTENANCE SUPERVISOR Appointment [facility] [address] [place] [address] [place] [address] [place] [address] [place] [address] [place] [address] 02/23/2024 9:00 AM ELECTRICAL MAINTENANCE SUPERVISOR Appointment [facility] [address] [place] [address] [place] [address] [place] [address] [place] [address] [place] [address] 02/24/2024 1:30 PM ELECTRICAL MAINTENANCE SUPERVISOR Appointment [facility] [address] [place] [address] [place] [address] [place] [address] 02/26/2024 9:00 AM ELECTRICAL MAINTENANCE SUPERVISOR Appointment [facility] [address] [place] [address] [place] [address] [place] [address] [place] [address] [place] [id number] 02/26/2024 9:15 AM ELECTRICAL MAINTENANCE SUPERVISOR Appointment [facility] [address] [place] [address] [place] [address] [place] [address] [place] [address] [place] [address] 03/01/2024 9:00 AM ELECTRICAL MAINTENANCE SUPERVISOR Appointment [facility] [address] [place] [address] [place] [address] [place] [address] [place] [address] [place] [address] Lorene Branch, GOLF CADDIE 03/02/2024 12:27 PM ELECTRICAL MAINTENANCE SUPERVISOR Hospital Encounter [facility] [id number] [place] [address] [place] [address] [place] [address] 03/02/2024 12:27 PM ELECTRICAL MAINTENANCE SUPERVISOR - 03/02/2024 1:07 PM ELECTRICAL MAINTENANCE SUPERVISOR Surgery [address] [address] [place] [address] [place] [address] MANIPULATION SHOULDER 03/05/2024 9:00 AM ELECTRICAL MAINTENANCE SUPERVISOR Appointment [facility] [address] [place] [address] [place] [address] [place] [address] Lorene Branch, GOLF CADDIE 03/08/2024 9:00 AM ELECTRICAL MAINTENANCE SUPERVISOR Appointment [facility] [address] [place] [address] [place] [address] [place] [address] Lorene Branch, GOLF CADDIE 03/11/2024 9:15 AM ELECTRICAL MAINTENANCE SUPERVISOR Appointment [facility] [address] [place] [address] [place] [address] [place] [address] Lorene Branch, GOLF CADDIE 03/15/2024 9:00 AM ELECTRICAL MAINTENANCE SUPERVISOR Appointment [facility] [address] [place] [address] [place] [address] [place] [address] Lorene Branch, GOLF CADDIE 03/18/2024 9:15 AM ELECTRICAL MAINTENANCE SUPERVISOR Appointment [facility] [address] [place] [address] [place] [address] [place] [address] Lorene Branch, GOLF CADDIE 03/22/2024 9:00 AM ELECTRICAL MAINTENANCE SUPERVISOR Appointment [facility] [address] [place] [address] [place] [address] [place] [address] Lorene Branch, GOLF CADDIE 03/25/2024 9:15 AM ELECTRICAL MAINTENANCE SUPERVISOR Appointment [facility] [address] [place] [address] [place] [address] [place] [address] Lorene Branch, GOLF CADDIE 04/21/2024 11:20 AM ELECTRICAL MAINTENANCE SUPERVISOR Office Visit [facility] Family & Internal Medicine [address] [address] [place] [address] [place] [address] Scheduled Procedures Name Priority Associated Diagnoses Date/Ti me MANIPULATION SHOULDER Adhesive capsulitis of left shoulder 03/02/2024 12:27 PM ELECTRICAL MAINTENANCE SUPERVISOR INJECTION JOINT Adhesive capsulitis of left shoulder 03/02/2024 12:27 PM ELECTRICAL MAINTENANCE SUPERVISOR documented as of this encounter Visit Diagnoses Diagnosis Acute non-recurrent sinusitis, unspecified location- Primary Acute cough Wheezing RSV/bronchiolitis Acute bronchiolitis due to respiratory syncytial virus (RSV) Adhesive capsulitis of left shoulder Adhesive capsulitis of shoulder documented in this encounter Additional Health Concerns Assessment Noted Time PHQ-9 Depression Total Score: 5 03/18/19 24 2:22 PM ELECTRICAL MAINTENANCE SUPERVISOR documented as of this encounter Care Teams Rehabilitation Services Counselor Relationship Specialty Start Date End Date Marv Quiroga NP PCP - General NURSE PRACTITIONER ADULT HEALTH 03/11/23 09/14/23 documented as of this encounter
--- OUTSIDE RECORDS SUMMARY | 2024-02-12 03:32 | XMS_ITS | Encounter Summary ---
Author Organization [facility] Address Critical access hospital[facility] [place] [address] [place] [address] Care Team Providers Care Key Bed Installer Name Role Phone Marv Young NP Primary Care Provide r Brennon Flores MD Primary Care Provider [phone] Holger Soriano Primary Care Provider [phone] Encounter Details Date Type Department Care Team (Late st Contact Info) Description 05/12/2023 Skyepack Message Enc [facility] Family Medicine - [place] [address] [facility] [place] [place] [address] Kayla, [facility] Provider Screening Social History Tobacco Use Types Packs/Day Years [...] st Contact Info) Description 02/12/2024 9:00 AM STUDENT ASSISTANCE COUNSELOR Appointment [facility] [address] [place] [address] [place] [address] [place] [address] [place] [address] [place] [address] 02/12/2024 2:00 PM STUDENT ASSISTANCE COUNSELOR Appointment [facility] [place] [address] [place] [address] [place] [address] [place] [address] 02/16/2024 9:00 AM STUDENT ASSISTANCE COUNSELOR Appointment [facility] [address] [place] [address] [place] [address] [place] [address] [place] [address] [place] [address] 02/19/2024 8:45 AM STUDENT ASSISTANCE COUNSELOR Appointment [facility] [address] [place] [address] [place] [address] [place] [address] [place] [address] [place] [address] 02/19/2024 9:00 AM STUDENT ASSISTANCE COUNSELOR Appointment [facility] [address] [place] [address] [place] [address] [place] [address] [place] [address] [place] [address] 02/23/2024 9:00 AM STUDENT ASSISTANCE COUNSELOR Appointment [facility] [address] [place] [address] [place] [address] [place] [address] [place] [address] [place] [address] 02/24/2024 1:30 PM STUDENT ASSISTANCE COUNSELOR Appointment [address] [address] [place]hs[place] Logan, [address] [place] [address] 02/26/2024 9:00 AM STUDENT ASSISTANCE COUNSELOR Appointment [facility] [address] [place] [address] [place] [address] [place] [address] [place] [address] [place] [address] 02/26/2024 9:15 AM STUDENT ASSISTANCE COUNSELOR Appointment [facility] [address] [place] [address] [place] [address] [place] [address] [place] [address] [place] [address] 03/01/2024 9:00 AM STUDENT ASSISTANCE COUNSELOR Appointment [facility] [address] [place] [address] [place] [address] [place] [address] [place] [address] [place] [address] Lorene Branch, TORPEDO SPECIALIST 03/02/2024 12:27 PM STUDENT ASSISTANCE COUNSELOR Hospital Encounter [facility] Surgery [address] [place] [address] [place] [address] [place] [address] 03/02/2024 12:27 PM STUDENT ASSISTANCE COUNSELOR - 03/02/2024 1:07 PM STUDENT ASSISTANCE COUNSELOR Surgery [facility] Surgery [address] [place] [address] [place] [address] [place] [address] MANIPULATION SHOULDER 03/05/2024 9:00 AM STUDENT ASSISTANCE COUNSELOR Appointment [facility] [address] [place] [address] [place] [address] [place] [address] Lorene Branch, TORPEDO SPECIALIST 03/08/2024 9:00 AM STUDENT ASSISTANCE COUNSELOR Appointment [facility] [address] [place] [address] [place] [address] [place] [address] Lorene Branch, TORPEDO SPECIALIST 03/11/2024 9:15 AM STUDENT ASSISTANCE COUNSELOR Appointment [facility] [address] [place] [address] [place] [address] [place] [address] Lorene Branch, TORPEDO SPECIALIST 03/15/2024 9:00 AM STUDENT ASSISTANCE COUNSELOR Appointment [facility] [address] [place] [address] [place] [address] [place] [address] Lorene Branch, TORPEDO SPECIALIST 03/18/2024 9:15 AM STUDENT ASSISTANCE COUNSELOR Appointment [facility] [address] [place] [address] [place] [address] [place] [address] Lorene Branch, TORPEDO SPECIALIST 03/22/2024 9:00 AM STUDENT ASSISTANCE COUNSELOR Appointment [facility] [address] [place] [address] [place] [address] [place] [address] Lorene Branch, TORPEDO SPECIALIST 03/25/2024 9:15 AM STUDENT ASSISTANCE COUNSELOR Appointment [facility] [address] [place] [address] [place] [address] [place] [address] Lorene Branch, TORPEDO SPECIALIST 04/21/2024 11:20 AM STUDENT ASSISTANCE COUNSELOR Office Visit [facility] Family & Internal Medicine [facility] [address] [place] [address] [place] [address] [place] [address] Scheduled Procedures Name Priority Associated Diagnoses Date/Ti me MANIPULATION SHOULDER Adhesive capsulitis of left shoulder 03/02/2024 12:27 PM STUDENT ASSISTANCE COUNSELOR INJECTION JOINT Adhesive capsulitis of left shoulder 03/02/2024 12:27 PM STUDENT ASSISTANCE COUNSELOR documented as of this encounter Visit Diagnoses Not on filedocumented in this encounter Additional Health Concerns Infection Onset Date Last Indicated Resolved Time COVID-19 Rule Out 10/17/2023 10/17/2023 10/17/2023 10:57 AM CDT COVID-19 Rule Out 12/29/2023 12/29/2023 12/29/2023 12:59 PM STUDENT ASSISTANCE COUNSELOR Assessment Noted Time PHQ-9 Depression Total Score: 5 03/18/19 24 2:22 PM STUDENT ASSISTANCE COUNSELOR documented as of this encounter Care Teams Key Bed Installer Relationship Specialty Start Date End Date Marv Young NP PCP - General NURSE [facility]ACTITION[facility]ULT [facility] 03/11/23 09/14/23 [place] [address] [facility] [address] [place] [address] PCP - General INTERNAL MEDICINE 09/15/23 09/15/23 [place] [address] [place] [address] PCP - General Physician Route Returner Medical 09/16/23 documented as of this encounter
--- OUTSIDE RECORDS SUMMARY | 2024-02-12 03:32 | XMS_ITS | Encounter Summary ---
Author Organization [facility] Address Formerly [facility] [place] [address] [place] [address] Care Team Providers Care Wallpaper Printer Helper Name Role Phone Marv Quiroga NP Primary Care Provide r Reason for Referral * Medication Prior Authorization - Authorized Specialty Diagnoses / Procedures Referred By Contac t Referred To Contact Diagnoses Type 2 diabetes mellitus without complication, with long-term current use of insulin ([facility]) Marv Quiroga NP [address] [place] [address] Phone: tel: fax: Referral ID Status Reason Start Date Expiration Date V isits Requested Visits Authorized [id number] Authorized 03/19/2023 03/19/2024 1 1 E SEINER Reason for Visit * Reason Comments New Patient New patient establis h care was previous pt of shannan blackburn er concussion trouble with word recall and having back pain wants xray Encounter Details Date Type Department Care Team (Late st Contact Info) Description 03/18/2023 2:00 PM PURSE SEINER Office Visit [facility] Family & Internal Medicine [address] [phone] Marv Quiroga, [place] [address] New Patient (New patient establish care was previous pt of shannan blackburn er concussion trouble with word recall and having back pain wants xray) Social History Tobacco Use Types Packs/Day Years Used Date Smoking Tobacco: Every Day Cigarettes Smokeless Tobacco: Never Tobacco Cessation:Ready to Q uit: No; Counseling Given: Yes Alcohol Use Standard Drinks/Week [...] Sign Reading Time Taken Comments Blood Pressure 132/83 03/18/2023 2:08 PM PURSE SEINER Pulse 76 03/18/2023 2:08 PM PURSE SEINER Temperature 36.7 ??C (98 ??F) 03/18/2023 2:08 PM PURSE SEINER Respiratory Rate 16 03/18/2023 2:08 PM PURSE SEINER Oxygen Saturation 98% 03/18/2023 2:08 PM PURSE SEINER Inhaled Oxygen Concentration - - Weight 85.8 kg (189 lb 3.2 oz) 03/18/2023 2:08 P M PURSE SEINER Height 157.5 cm (5' 2 ) 03/18/2023 2:08 PM PURSE SEINER Body Mass Index 34.61 03/18/2023 2:08 PM PURSE SEINER documented in this encounter Progress Notes * Marv Quiroga, INSURANCE VERIFICATION CLERK - 03/18/2023 2:00 PM CST Reason for Visit: New Patient (New patient establish care was previous pt of lois. She was seen at [facility] for a fall where she sustained a concussion. She now has trouble with word recall and having back pain wants xray to make sure that her fusion of her lower spine is not damaged. Patient also needs all her medications refilled. History of Present Illness: Oumou Middleton is a 47-year-old female patient. She has a history of type 2 diabetes that is controlled now by 1 mg of Ozempic weekly. Currently her A1c is 5.2 which has improved from 7.8 as of 6 months ago. Patient's weight has also improved to a 20+ pound weight loss. Patient has a history of bipolar disorder depression and anxiety. She is currently controlled on all of her medications for these conditions and will need refills. Presently the patient is suffering from post concussion syndrome. She is having difficulty completing sentences finding words and recall. The CT exam at [facility] showed no swelling of the brain or bleeding. Due to patient's ongoing symptoms I am going to order an MRI to confirm that there is no further brain damage. ROS: Review of Systems Constitutional: Negative. HENT: Negative. Eyes: Positive for visual disturbance. Left eye twitching Respiratory: Negative. Cardiovascular: Negative. Gastrointestinal: Positive for abdominal distention. GERD Endocrine: Negative. Genitourinary: Negative. Musculoskeletal: Positive for back pain, gait problem and neck stiffness. Allergic/Immunologic: Negative. Neurological: Positive for dizziness, speech difficulty, weakness and light-headedness. Aphasia present. Patient can not think of the word needed to complete thought. Hematological: Negative. Psychiatric/Behavioral: Negative. Medications: Current Outpatient Medications: acetaminophen (TYLENOL) 325 MG tablet, PLEASE SEE ATTACHED FOR DETAILED DIRECTIONS, Disp: , Rfl: albuterol sulfate HFA 108 (90 Base) MCG/ACT inhaler, Inhale 2 puffs into the lungs., Disp: , Rfl: ALPRAZolam (XANAX) 0.5 MG tablet, TAKE 1 ORAL TABLET ONCE A DAY FOR ANXIETY ONSET, Disp: , Rfl: ARIPiprazole (ABILIFY) 15 MG tablet, Take 1 tablet (15 mg total) by mouth daily., Disp: , Rfl: DULoxetine (CYMBALTA) 30 MG capsule, Take 1 capsule (30 mg total) by mouth 2 (two) times daily., Disp: , Rfl: estradiol (ESTRACE) 2 MG tablet, Take 1 tablet (2 mg total) by mouth daily., Disp: , Rfl: famotidine (PEPCID) 20 MG tablet, TAKE 1 TABLET BY MOUTH EVERY MORNING FOR REFLUX, Disp: , Rfl: fluticasone propionate (FLONASE) 50 MCG/ACT nasal spray, 2 sprays by Each Nostril route daily. SHAKE LIQUID, Disp: , Rfl: ibuprofen (MOTRIN) 600 MG tablet, Take 1 tablet (600 mg total) by mouth every 6 (six) hours as needed., Disp: , Rfl: OZEMPIC 1 mg/dose injection (PEN), INJECT 1 MG UNDER THE SKIN ONCE WEEKLY FOR THE NEXT 12 WEEKS, Disp: , Rfl: progesterone (PROMETRIUM) 100 MG capsule, Take 1 capsule (100 mg total) by mouth daily., Disp: , Rfl: QUEtiapine (SEROQUEL) 100 MG tablet, Take 1 tablet (100 mg total) by mouth nightly at bedtime. at bedtime., Disp: , Rfl: SUMAtriptan (IMITREX) 25 MG tablet, TAKE 1 TABLET BY MOUTH EVERY 24 HOURS AT ONSET OF MIGRAINE NEEDED, Disp: , Rfl: traZODone (DESYREL) 100 MG tablet, Take 1 tablet (100 mg total) by mouth., Disp: , Rfl: Review of patient's allergies indicates: Allergen Reactions Parada Anaphylaxis Iodine Rash, Hives and Other (see comment) Reaction: Hives, Iodinated Contrast Media Unknown Itching Ranitidine Unknown Risperidone Other (see comment) Reaction: OTHER REACTION No past medical history on file. No past surgical history on file. Social History Socioeconomic History Marital status: Tobacco Use Smoking status: Every Day Types: Cigarettes Smokeless tobacco: Never Vaping Use Vaping Use: Never used Substance and Sexual Activity Alcohol use: Yes Drug use: Never No family history on file. No family status information on file. Filed Vitals: 03/18/23 1408 BP: 132/83 Pulse: 76 Resp: 16 Temp: 98 ??F (36.7 ??C) TempSrc: Temporal SpO2: 98% Weight: 85.8 kg (189 lb 3.2 oz) Height: 1.575 m (5' 2 ) Results for orders placed or performed in visit on 03/18/23 HEMOGLOBIN, GLYCOSYLATED Result Value Ref Range HGB A1C 5.2 % Physical Exam: Physical Exam Vitals reviewed. HENT: Nose: Nose normal. Mouth/Throat: Mouth: Mucous membranes are dry. Eyes: Extraocular Movements: Extraocular movements intact. Pupils: Pupils are equal, round, and reactive to light. Cardiovascular: Rate and Rhythm: Normal rate and regular rhythm. Pulmonary: Effort: Pulmonary effort is normal. Musculoskeletal: Cervical back: Rigidity present. Skin: General: Skin is warm and dry. Neurological: Mental Status: She is alert. Motor: Weakness present. Coordination: Coordination abnormal. Gait: Gait abnormal. 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 Psychiatric: Mood and Affect: Mood normal. Behavior: Behavior normal. Diagnoses/Impression: Oumou was seen today for new patient. Diagnoses and all orders for this visit: Type 2 diabetes mellitus without complication, with long-term current use of insulin ([facility]) ([facility]) - HEMOGLOBIN, GLYCOSYLATED - COLLECT.CAPILLARY (FNGR,HEEL,EAR) Post concussion syndrome Depression, unspecified depression type Generalized anxiety disorder PTSD (post-traumatic stress disorder) Menopausal and female climacteric states Mild intermittent asthma without complication ([facility]) Gastroesophageal reflux disease without esophagitis Recommendations and Plan: Patient given orders to get MRI to confirm no further worsening brain injury and swelling from her fall and concussion. Xray ordered to confirm her lower lumbar spinal fusion was intact. Patient is concerned something has fractured. Continue all medications as prescribed for diabetes, bipolar/depression/anxiety, and GERD. Follow up in 3 months for A1C check. MARV QUIROGA NP E SEINER * Clarice Crooks RN - 03/18/2023 2:00 PM CST Letter written by provider printed and left at front counter attendant for patient to moss picker today. E SEINER documented in this encounter Plan of Treatment Upcoming Encounters Date Type Department Care Team (Late st Contact Info) Description 02/12/2024 9:00 AM PURSE SEINER Appointment [facility] Out[facility] [address] [place] [address] [place] [address] [place] [address] [place] [address] [place] [address] 02/12/2024 2:00 PM PURSE SEINER Appointment [facility] MRI [address] [place] [address] [place] [address] [place] [address] 02/16/2024 9:00 AM PURSE SEINER Appointment [facility]hab [address] [place] [address] [place] [address] [place] [address] [place] [address] [place] [address] 02/19/2024 8:45 AM PURSE SEINER Appointment [facility]patient [facility]hab [address] [place] [address] [place] [address] [place] [address] [place] [address] [place] [address] 02/19/2024 9:00 AM PURSE SEINER Appointment [facility] [address] [place] [address] [place] [address] [place] [address] [place] [address] [place] [address] 02/23/2024 9:00 AM PURSE SEINER Appointment [facility] [address] [place] [address] [place] [address] [place] [address] [place] [address] [place] [address] 02/24/2024 1:30 PM PURSE SEINER Appointment [facility] [id number] [place] [address] [place] [address] [place] [address] 02/26/2024 9:00 AM PURSE SEINER Appointment [facility] Outpatient Rehab [address] [place] [address] [place] [address] [place] [address] [place] [address] [place] [address] 02/26/2024 9:15 AM PURSE SEINER Appointment [facility]hab [address] [place] [address] [place] [address] [place] [address] [place] [address] [place] [address] 03/01/2024 9:00 AM PURSE SEINER Appointment [facility] [address] [place] [address] [place] [address] [place] [address] [place] [address] [place] [address] Lorene Branch, PRESENTATION SPECIALIST 03/02/2024 12:27 PM PURSE SEINER Hospital Encounter [facility] [address] [place] [address] [place] [address] [place] [address] 03/02/2024 12:27 PM PURSE SEINER - 03/02/2024 1:07 PM PURSE SEINER Surgery [facility] [address] [place] [address] [place] [address] [place] [address] MANIPULATION SHOULDER 03/05/2024 9:00 AM PURSE SEINER Appointment [facility] [address] [place] [address] [place] [address] [place] [address] Lorene Branch, PRESENTATION SPECIALIST 03/08/2024 9:00 AM PURSE SEINER Appointment [facility] [address] [place] [address] [place] [address] [place] [address] Lorene Branch, PRESENTATION SPECIALIST 03/11/2024 9:15 AM PURSE SEINER Appointment [facility] [address] [place] [address] [place] [address] [place] [address] Lorene Branch, PRESENTATION SPECIALIST 03/15/2024 9:00 AM PURSE SEINER Appointment [facility] [address] [place] [address] [place] [address] [place] [address] Lorene Branch, PRESENTATION SPECIALIST 03/18/2024 9:15 AM PURSE SEINER Appointment [facility] [address] [place] [address] [place] [address] [place] [address] Lorene Branch, PRESENTATION SPECIALIST 03/22/2024 9:00 AM PURSE SEINER Appointment [facility] [address] [place] [address] [place] [address] [place] [address] Lorene Branch, PRESENTATION SPECIALIST 03/25/2024 9:15 AM PURSE SEINER Appointment [facility] [address] [place] [address] [place] [address] [place] [address] Lorene Branch, PRESENTATION SPECIALIST 04/21/2024 11:20 AM PURSE SEINER Office Visit [facility] Family & Internal Medicine [address] [phone] [place] [address] [place] [address] Scheduled Procedures Name Priority Associated Diagnoses Date/Ti me MANIPULATION SHOULDER Adhesive capsulitis of left shoulder 03/02/2024 12:27 PM PURSE SEINER INJECTION JOINT Adhesive capsulitis of left shoulder 03/02/2024 12:27 PM PURSE SEINER documented as of this encounter Procedures Procedure Name Priority Date/Time Associated Diagnosis Comments HEMOGLOBIN, GLYCOSYLATED Routine 03/18/2023 Type 2 diabetes mellitus without complication, with long-term current use of insulin ([facility]) COLLECT.CAPILLARY (FNGR,HEEL,EAR) Routine 03/18/2023 Type 2 diabetes mellitus without complication, with long-term current use of insulin ([facility]) documented in this encounter Results * COLLECT.CAPILLARY (FNGR,HEEL,EAR) (03/18/2023) Marv Quiroga NP PROCEDURES-UNRESULTED Final Result * HEMOGLOBIN, GLYCOSYLATED (03/18/2023) HGB A1C 5.2 % [id number] [facility] 03/18/2023 Marv Quiroga INSURANCE VERIFICATION CLERK LABORATORY Final Result Performing Organization Address [facility] [employer] de Phone Number -[phone] [facility] [address] [place] [address], [place] [phone] documented in this encounter Visit Diagnoses Diagnosis Post concussion syndrome- Primary Postconcussion syndrome Type 2 diabetes mellitus without complication, with long-term current use of insulin ([facility]) Depression, unspecified depression type Generalized anxiety disorder PTSD (post-traumatic stress disorder) Posttraumatic stress disorder Menopausal and female climacteric states Mild intermittent asthma without complication ([facility]) Unspecified asthma Gastroesophageal reflux disease without esophagitis Esophageal reflux Acute midline low back pain without sciatica 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 TBI (traumatic brain injury) Aphasia Migraine with status migrainosus, not intractable, unspecified migraine type Insomnia, unspecified type Bipolar I disorder with depression ([facility]) Bipolar I disorder, most recent episode (or current) depressed, unspecified Adhesive capsulitis of left shoulder Adhesive capsulitis of shoulder documented in this encounter Additional Health Concerns Assessment Noted Time PHQ-9 Depression Total Score: 5 03/18/19 24 2:22 PM PURSE SEINER documented as of this encounter Care Teams Wallpaper Printer Helper Relationship Specialty Start Date End Date Marv Quiroga NP PCP - General NURSE PRACTITIONER ADULT HEALTH 03/11/23 09/14/23 documented as of this encounter
--- OUTSIDE RECORDS SUMMARY | 2024-02-12 03:32 | XMS_ITS | Encounter Summary ---
Author Organization [facility] Address [facility]. [place], [place] [address] [place] [address] Care Team Providers Care Edge Grinder Name Role Phone Marv Quiroga NP Primary Care Provide r Reason for Referral * Imaging (Emergency) - Closed Specialty Diagnoses / Procedures Referred By Contac t Referred To Contact RADIOLOGY Diagnoses Post concussion syndrome Aphasia Procedures MRI BRAIN WO CON MRI BRAIN WO CON Marv Quiroga, GRACE Phone: tel: fax: Referral ID Status Reason Start Date Expiration Date Visits Re quested Visits Authorized [id number] Closed 03/19/2023 03/19/2024 1 1 EQUIPMENT MECHANIC Reason for Visit * Imaging (Emergency) - Closed Specialty Diagnoses / Procedures Referred By Contac jeanne Referred To Contact RADIOLOGY Diagnoses Post concussion syndrome Aphasia Procedures MRI BRAIN WO CON MRI BRAIN WO CON Marv Quiroga, GRACE Phone: tel: fax: Referral ID Status Reason Start Date Expiration Date Visits Re quested Visits Authorized [id number] Closed 03/19/2023 03/19/2024 1 1 Encounter Details Date Type Department Care Team (Latest Contact Info) Description 03/20/2023 8:25 AM TEST EQUIPMENT MECHANIC - 03/20/2023 11:59 PM TEST EQUIPMENT MECHANIC Hospital Encounter [facility] [place] [address] Marv Quiroga, GRACE [address] [place] [address] Discharge Disposition: Home or Self Care (Routine [...] this encounter Medications at Time of Discharge acetaminophen (TYLENOL) 325 MG tablet PLEASE SEE ATTACHED FOR DETAILED DIRECTIONS 02/12/2023 4 albuterol sulfate HFA 108 (90 Base) MCG/ACT inhaler Inhale 2 puffs into the lungs. 4 ALPRAZolam (XANAX) 0.5 MG tablet TAKE [...] Each Nostril route daily. SHAKE LIQUID 03/28/2022 ibuprofen (MOTRIN) 600 MG tablet Take 1 tablet (600 mg total) by mouth every 6 (six) hours as needed. 02/12/2023 4 OZEMPIC 1 mg/dose injection (PEN) INJECT 1 MG UNDER THE SKIN ONCE WEEKLY FOR THE NEXT 12 WEEKS 10/29/2022 progesterone (PROMETRIUM) 100 MG capsuleIndication s:Menopausal and female climacteric states Take 1 capsule (100 mg total) by mouth daily. 30 capsule 2 03/18/2023 4 QUEtiapine (SEROQUEL) 100 MG tabletIndications :Bipolar I disorder with depression ([facility]) Take 1 tablet (100 mg total) by mouth nightly at bedtime. 90 tablet 03/18/2023 4 semaglutide (OZEMPIC) 1 mg/dose injection (PEN)Indications: Type 2 diabetes mellitus without complication, with long-term current use of insulin ([facility]) Inject 1 mg into the skin once a week for 84 days. 3 mL 2 03/18/2023 4 SUMAtriptan (IMITREX) 25 MG tabletIndications :Migraine with status migrainosus, not intractable, unspecified migraine type Take 1 tablet (25 mg total) by mouth daily as needed for Migraine. Max of 8 tablets (200 mg) in a 24 hour period. 30 tablet 2 03/18/2023 4 traZODone (DESYREL) 100 MG tabletIndications :Insomnia, unspecified type Take 1 tablet (100 mg total) by mouth nightly at bedtime for 30 days. 30 tablet 2 03/18/2023 4 documented as of this encounter Plan of Treatment Upcoming Encounters Date Type Department Care Team (Late st Contact Info) Description 02/12/2024 9:00 AM TEST EQUIPMENT MECHANIC Appointment [facility] [address] [place], [place] [id number] [place] [address] [place], [place] [id number] [place] [address] [place] [address] 02/12/2024 2:00 PM TEST EQUIPMENT MECHANIC Appointment [address] [address] [place] [address] [place] [address] 02/16/2024 9:00 AM TEST EQUIPMENT MECHANIC Appointment [facility] [address] [place] [address] [place] [address] [place] [address] [place] [address] [place] [address] 02/19/2024 8:45 AM TEST EQUIPMENT MECHANIC Appointment [facility] [address] [place] [address] [place] [address] [place] [address] [place] [address] [place] [address] 02/19/2024 9:00 AM TEST EQUIPMENT MECHANIC Appointment [facility] [address] [place] [address] [place] [address] [place] [address] [place] [address] [place] [address] 02/23/2024 9:00 AM TEST EQUIPMENT MECHANIC Appointment [facility] [address] [place] [address] [place] [address] [place] [address] [place] [address] [place] [address] 02/24/2024 1:30 PM TEST EQUIPMENT MECHANIC Appointment [address] [address] Ihsan Logan [id number] [place] [address] 02/26/2024 9:00 AM TEST EQUIPMENT MECHANIC Appointment [facility] [address] [place] [address] [place] [address] [place] [address] [place] [address] [place] [address] 02/26/2024 9:15 AM TEST EQUIPMENT MECHANIC Appointment [facility] [address] [place] [address] [place] [address] [place] [address] [place] [address] [place] [address] 03/01/2024 9:00 AM TEST EQUIPMENT MECHANIC Appointment [facility] [address] [place] [address] [place] [address] [place] [address] [place] [address] [place] [address] Lorene Branch, BOOKS BINDER 03/02/2024 12:27 PM TEST EQUIPMENT MECHANIC Hospital Encounter [facility] [address] [place] [address] [place] [address] [place] [address] 03/02/2024 12:27 PM TEST EQUIPMENT MECHANIC - 03/02/2024 1:07 PM TEST EQUIPMENT MECHANIC Surgery [facility] [address] [place] [address] [place] [address] [place] [address] MANIPULATION SHOULDER 03/05/2024 9:00 AM TEST EQUIPMENT MECHANIC Appointment [facility] [address] [place] [address] [place] [address] [place] [address] Lorene Branch, BOOKS BINDER 03/08/2024 9:00 AM TEST EQUIPMENT MECHANIC Appointment [facility] [address] [place] [address] [place] [address] [place] [address] Lorene Branch, BOOKS BINDER 03/11/2024 9:15 AM TEST EQUIPMENT MECHANIC Appointment [facility] [address] [place] [address] [place] [address] [place] [address] Lorene Branch, BOOKS BINDER 03/15/2024 9:00 AM TEST EQUIPMENT MECHANIC Appointment [facility] [address] [place] [address] [place] [address] [place] [address] Lorene Branch, BOOKS BINDER 03/18/2024 9:15 AM TEST EQUIPMENT MECHANIC Appointment [facility] [address] [place] [address] [place] [address] [place] [address] Lorene Branch, BOOKS BINDER 03/22/2024 9:00 AM TEST EQUIPMENT MECHANIC Appointment [facility] [address] [place] [address] [place] [address] [place] [address] Lorene Branch, BOOKS BINDER 03/25/2024 9:15 AM TEST EQUIPMENT MECHANIC Appointment [facility] [address] [place] [address] [place] [address] [place] [address] Lorene Branch, BOOKS BINDER 04/21/2024 11:20 AM TEST EQUIPMENT MECHANIC Office Visit [facility] - [place] [address] [place] [address] [place] [address] [place] [address] Scheduled Procedures Name Priority Associated Diagnoses Date/Ti me MANIPULATION SHOULDER Adhesive capsulitis of left shoulder 03/02/2024 12:27 PM TEST EQUIPMENT MECHANIC INJECTION JOINT Adhesive capsulitis of left shoulder 03/02/2024 12:27 PM TEST EQUIPMENT MECHANIC documented as of this encounter Procedures Procedure Name Priority Date/Time Associated Diagnosis Comments MRI BRAIN WO CON STAT 03/20/2023 9:18 AM TEST EQUIPMENT MECHANIC Post concussion syndrome Aphasia documented in this encounter Results * MRI BRAIN WO CON (03/20/2023 9:18 AM TEST EQUIPMENT MECHANIC) Anatomical Region Laterality Modality Head Magnetic Resonan ce 03/20/2023 9:18 AM TEST EQUIPMENT MECHANIC Impressions 03/20/2023 9:23 AM TEST EQUIPMENT MECHANIC IMPRESSION: 1. Soft tissue edema along the [...] 03/20/2023 9:18 AM Narrative 03/20/2023 9:23 AM TEST EQUIPMENT MECHANIC INDICATION: Aphasia. Post concussion syndrome. History of [...] Reyna MD, 03/20/2023 9:18 AM Marv Quiroga NP MRI Final Result documented in this encounter Visit Diagnoses Diagnosis Post concussion syndrome Postconcussion syndrome Aphasia Adhesive capsulitis of left shoulder Adhesive capsulitis of shoulder documented in this encounter Additional Health Concerns Assessment Noted Time PHQ-9 Depression Total Score: 5 03/18/19 24 2:22 PM TEST EQUIPMENT MECHANIC documented as of this encounter Care Teams Edge Grinder Relationship Specialty Start Date End Date Marv Quiroga NP PCP - General NURSE PRACTITIONER ADULT HEALTH 03/11/23 09/14/23 documented as of this encounter
--- OUTSIDE RECORDS SUMMARY | 2024-02-12 03:37 | XMS_ITS | Clinical Summary ---
Author Organization [facility] Address [address] [place] [address] Phone Care Team Providers Care Caretaker Resort Name Role Phone Bhavik Joyner Carl DPM Unavailable [phone] Kaylynn Alvarez APRN, MID LEVEL CLINICIAN Primary Care Provider [phone] Allergies Active Allergy Reactions Criticality Noted Date Comments Iodine Hives 11/28/2016 Risperidone Other (see Comments) Low Medications DULoxetine (CYMBALTA) [address] Particles Take 30 mg by mouth daily. Active metFORMIN (GLUCOPHAGE) 1000 MG Tablet Take 1,000 mg by mouth daily. Active ARIPiprazole (ABILIFY) 15 MG Tablet Take 15 mg by mouth daily. Active insulin aspart (NOVOLOG) 100 UNIT/ML Solution by Subcutaneous route 3 times daily (after meals). Sliding scale Active traZODone (DESYREL) 100 MG Tablet Take 100 mg by mouth as needed for Sleep. Active acetaminophen-c odeine (TYLENOL #4) 300-60 MG Tablet Take 1 Tab by mouth as needed for Pain. Active cyclobenzaprine (FLEXERIL) 10 MG Tablet Take 10 mg by mouth as needed for Muscle spasms. Active betamethasone valerate (VALISONE) 0.1 % CreamIndication s:Dermatitis of foot APPLY TO AFFECTED AREAS TWICE DAILY 30 g 2 7 Active predniSONE (DELTASONE) 20 MG Tablet TK 1 T PO WITH KYLEIGH AND 1 T WITH LUNCH FOR 5 DAYS 0 8 Active albuterol (PROAIR HFA) 108 (90 Base) MCG/ACT Aerosol Solution take 2 Puffs by inhalation every 4 hours as needed. Active rOPINIRole (REQUIP) 2 MG Tablet Take 0.5 Tabs by mouth nightly. 30 Tab 5 9 Active Respiratory Therapy Supplies (NEBULIZER) Device Use as directed 1 Each 9 Active albuterol (ACCUNEB) 0.63 MG/3ML Nebulizer Soln 3 mL by Nebulization route every 4 hours as needed for Shortness of Breath. 450 Vial 3 9 Active predniSONE (DELTASONE) 10 MG Tablet Take 1 Tab by mouth daily. 10 Tab 9 Active azithromycin (ZITHROMAX) 250 MG Tablet 2 tab(s) daily for 1 day, then 1 tab(s) daily for days 2-5. 6 Tab 9 Active Active Problems Problem Noted Date Diagnosed Date Restless legs syndrome (RLS) 08/24/2018 DINESH (obstructive sleep apnea) 03/31/2018 Hypersomnia 03/31/2018 Non morbid obesity 03/31/2018 Mild persistent asthma without complication 06/2018 Diabetic polyneuropathy asso ciated with type 2 diabetes mellitus 11/28/2016 Dermatitis of foot 11/28/2016 Family History Medical History Relation Name Comments Heart Attack Father Relation Name Status Comments Father Social History Tobacco Use Types Packs/Day Years Used Date Smoking Tobacco: Former Cigarettes Smokeless Tobacco: Never Tobacco Cessation:Counseling Given: No Alcohol Use Standard Drinks/Week Comments Yes 0 (1 standard drink = 0.6 oz pur e alcohol) very seldom Comments No Sex and Gender Information Value Date Recorded Sex Assigned at Not on file Legal Sex Female 8:46 PM CDT Gender Identity Not on file Sexual Orientation Not on file Last Filed Vital Signs Vital Sign Reading Time Taken Comments Blood Pressure 100/72 08/24/2018 2:22 PM CDT Pulse 77 08/24/2018 2:22 PM CDT Temperature 37.1 ??C (98.7 ??F) 08/24/2018 2:22 PM CD T Respiratory Rate 18 08/24/2018 2:22 PM CDT Oxygen Saturation 98% 08/24/2018 2:22 PM CDT Inhaled Oxygen Concentration - - Weight 92 kg (202 lb 14.4 oz) 08/24/2018 2:22 PM CDT Height 157.5 cm (5' 2 ) 08/24/2018 2:22 PM CDT Body Mass Index 37.11 08/24/2018 2:22 PM CDT Plan of Treatment Health Maintenance Due Date Last Done Comments Diabetes: Eye Exam 1975 Diabetes: Foot Exam 1975 Hepatitis C Virus (HCV) Screening 1975 TdaP Immunization 1975 Pneumococcal Immunization Combined (1 of 2 - PCV) 09/11/1979 Diabetes: Nephropathy Screening 09/11/1991 Hepatitis B Immunization (1 of 3 - 19+ 3-dose series) 1992 Pap Smear 1994 Cervical Cancer Screening (CCS) 09/11/2003 HPV/Cotest 09/11/2003 Diabetes: Hemoglobin A1c 04/21/2016 10/20/2015 Colonoscopy 2018 Colorectal Cancer Screening 2018 Cologuard 09/11/2023 Immunochemical Fecal Occult Blood 09/11/2023 06/05/2018 Mammogram 09/11/2023 Zoster Immunization (1 of 2) 09/11/2023 Influenza Immunization (#1) 2023 09/0 07/2016, 12/20/2015, 12/06/2014, Additional history exists SARS-COV-2 Immunization ( season) 2023 06/27/2020, 06/06/2020 Respiratory Syncytial Virus (RSV) Immunization (Adult) (1 - 1-dose 75+ series) 2048 Meningococcal Immunization (ACWY) Aged Out No longer eligible based on patient's age to complete this topic Rotavirus Immunization Aged Out No lo nger eligible based on patient's age to complete this topic Procedures Procedure Name Priority Date/Time Associated Diagnosis Comments HEMOGLOBIN A1C W/ ESTIMATED GLUCOSE Routine 10/20/2015 11:08 AM CDT Type 2 diabetes mellitus with hyperglycemia, unspecified long-term insulin use status from Last 3 Months or Most Recently Relevant to Health Maintenance Results * (ABNORMAL) HEMOGLOBIN A1C W/ ESTIMATED GLUCOSE (10/20/2015 11:08 AM CDT) HGB-A1C 11.2(H) 4.4 - 6.4 % 10/20/2015 12:35 PM CDT [facility] Est Average Glucose 274.7 mg/dL 10/20/2015 12:35 PM CDT [facility] Blood specimen (specimen) Venipuncture / Unknown 10/20/2015 11:08 AM CDT 10/20/2015 11:17 AM CDT Narrative [facility] - 10/20/2015 12:35 PM CDT HEMOGLOBIN A1C: DIABETIC PATIENTS: WELL-CONTROLLED: ?? 6.2 - 7.0 INTERMEDIATE WELL-CONTROLLED: ??7.0 - 9.0 POORLY-CONTROLLED: ??>9.0 us Dayan Khan APRN, MID LEVEL CLINICIAN CHEMISTRY ORDERABLES Fin al Result [facility] [address] [place] [address] from Last 3 Months or Most Recently Relevant to Health Maintenance Insurance MEDICARE , [place] [id number] Care Teams Caretaker Resort Relationship Specialty Start Date End Date Kaylynn Alvarez APRN, MID LEVEL CLINICIAN [address] [place] [address] PCP - General Family Medicine 04/06/18 Bhavik Joyner DPM Consulting Physician Podiatry 11/28/16
--- OUTSIDE RECORDS SUMMARY | 2024-02-12 03:38 | XMS_ITS | Encounter Summary ---
Author Organization [facility] Address [address] [place] [address] Phone Care Team Providers Care Squeegee Finisher Name Role Phone Enma Jones MD Primary Care Provider [phone] Reason for Visit * Reason Comments Audiometric Evaluation * (Routine) - Closed Specialty Diagnoses / Procedures Referred By Shmuel angel Referred To Contact Diagnoses Tinnitus of both ears Procedures Tympanometry Aliyah Varghese, GRACE [address] [facility] [address] [place] [address] Phone: tel: fax: [facility] (All Locations) Referral ID Status Reason Start Date Expiration Date Visits Re quested Visits Authorized [id number] Closed 01/28/2022 02/27/2023 1 1 Encounter Details Date Type Department Care Team (Latest Contact Info) Description 03/01/2022 1:00 PM TRAVEL RN Procedure visit [facility] Otolaryngology [address] [facility] [address] [place] [address] eTa Arrington Au.D. [address] [place] [address] Tinnitus of both ears (Primary Dx) Social History Tobacco Use Types Packs/Day Years Used Date Smoking Tobacco: Former Cigarettes Smokeless Tobacco: Never Comments:states she quit eig ht years ago Alcohol Use Standard Drinks/Week Comments No 0 (1 standard drink = 0.6 oz pur e alcohol) AUDIT-C Answer Date Recorded Q1: How often do you have a drink containing alc ohol? Monthly or less 03/01/2022 Average Number of Drinks Not on file 023 Frequency of Binge Drinking Not on file 07/2022 Comments No Sex and Gender Information Value Date Recorded Sex Assigned at Not on file Legal Sex Female 1:16 PM TRAVEL RN Gender Identity Not on file Sexual Orientation Not on file documented as of this encounter Procedure Notes * Tea Arrington Au.D. - 03/01/2022 1:00 PM CST Images from the original note were not included. Procedures Sandra Monterroso, [facility] PATIENT: Oumou Middleton : 1975 TYPE OF SERVICE: Comprehensive Audiometric Evaluation DATE OF SERVICE: 03/01/2022 Referral Source: Aliyah Varghese* Audiogram completed per physician referral. The patient had an appointment with Hermelinda Brizuelairectrodolfo following today's evaluation. See scanned audiogram for results. Detailed medical history was obtained by medical dir and reviewed. Results were reviewed with the patient by aviation safety officer and/or physician. EL RN documented in this encounter Plan of Treatment Not on file documented as of this encounter Procedures Procedure Name Priority Date/Time Associated Diagnosis Comments AUDBASE RESULTS 03/01/2022 12:58 PM TRAVEL RN documented in this encounter Results * AUDBASE RESULTS (03/01/2022 12:58 PM TRAVEL RN) Provider Scanning AUDIOLOGY SERVICES ORDERABLES Final Result documented in this encounter Visit Diagnoses Diagnosis Tinnitus of both ears- Primary Unspecified tinnitus documented in this encounter Orders Audiology Count Last Ordered Date First Orde red Date TYMPANOMETRY 1 03/01/2022 documented in this encounter Care Teams Squeegee Finisher Relationship Specialty Start Date End Date Enma Jones MD PCP - General 10/15/18 04/18/22 Alana Gaytan, [employer]INC[employer]UTIONS ARCHITECT [address] [place] [address] Education Dean Infectious Diseases 01/24/22 documented as of this encounter
--- OUTSIDE RECORDS SUMMARY | 2024-02-12 03:38 | XMS_ITS | Encounter Summary ---
Author Organization [facility] Address [address] [place] [address] Phone Care Team Providers Care Head Buyer Tobacco Name Role Phone Enma Jones MD Primary Care Provider [phone] Encounter Details Date Type Department Care Team (Late st Contact Info) Description 03/27/2022 Telephone [facility] - [facility] ENT [address] [facility] 2nd Floor, [address] [place] [address] Melanie Mendez NP [address] [place], [place] [id number] Social History Tobacco Use Types Packs/Day Years [...] on file Legal Sex Female 1:16 PM DIAL PAINTER Gender Identity Not on file Sexual Orientation Not on file documented as of this encounter Miscellaneous Notes * Telephone Encounter - Rebecca Dimas, [facility] - 03/27/2022 3:32 PM DIAL PAINTER Patient called, she was seen at urgent care and diagnosed with double ear infection and the infection is in her nose. Her sinuses are clogged and she has ear drainage. Per Isamar, she should come in for an appointment. Patient schedule for [facility] tomorr PAINTER documented in this encounter Plan of Treatment Not on file documented as of this encounter Visit Diagnoses Not on filedocumented in this encounter Care Teams Head Buyer Tobacco Relationship Specialty Start Date End Date Enma Jones MD PCP - General 10/15/18 04/18/22 Alana Gaytan, [address] [address] Job Molder Infectious Diseases 01/24/22 documented as of this encounter
--- OUTSIDE RECORDS SUMMARY | 2024-02-12 03:38 | XMS_ITS | Encounter Summary ---
Author Organization [facility] Healthcare Address [address] [place] [id number] Care Team Providers Care Furnace Builder Name Role Phone Enma Jones MD Primary Care Provider [phone] Reason for Referral * Diagnostic Imaging (Routine) - Closed Specialty Diagnoses / Procedures Referred By Contac t Referred To Contact Radiology Diagnoses Dorsalgia Procedures MRI Lumbar Spine WO Contrast Millicent Luo MD Phone: tel: fax: [address] [phone] Referral ID Status Reason Start Date Expiration Date Visits Re quested Visits Authorized [id number] Closed 03/21/2020 04/20/2021 1 1 NURSE * Diagnostic Imaging (Routine) - Closed Specialty Diagnoses / Procedures Referred By Contac t Referred To Contact Radiology Diagnoses Cervicalgia Procedures MRI Cervical Spine WO Contrast Millicent Luo MD Phone: tel: fax: [address] [phone] Referral ID Status Reason Start Date Expiration Date Visits Re quested Visits Authorized [id number] Closed 03/21/2020 04/20/2021 1 1 NURSE Reason for Visit * Diagnostic Imaging (Routine) - Closed Specialty Diagnoses / Procedures Referred By Contac t Referred To Contact Radiology Diagnoses Cervicalgia Procedures MRI Cervical Spine WO Contrast Millicent Luo MD Phone: tel: fax: [address] [phone] Referral ID Status Reason Start Date Expiration Date Visits Re quested Visits Authorized [id number] Closed 03/21/2020 04/20/2021 1 1 Encounter Details Date Type Department Care Team (Latest Contact Info) Description 04/18/2020 9:41 AM POOL NURSE - 04/18/2020 11:59 PM POOL NURSE Hospital Encounter [facility] [address] [place] [id number] Millicent Luo MD [address] [facility] [address] [address] [place] [address] Cervicalgia; Dorsalgia Discharge Disposition: Discharge to home or self care Social History Tobacco Use Types Packs/Day Years Used Date Smoking Tobacco: Former Cigarettes Smokeless Tobacco: Never Comments:states she quit eig ht years ago Alcohol Use Standard Drinks/Week Comments No 0 (1 standard drink = 0.6 oz pur e alcohol) Comments No Sex and Gender Information Value Date Recorded Sex Assigned at Not on file Legal Sex Female 1:16 PM POOL NURSE Gender Identity Not on file Sexual Orientation Not on file documented as of this encounter Medications at Time of Discharge ARIPiprazole (ABILIFY) 5 mg tablet take 1 tablet by oral route every day 0 0 09/30/2013 metFORMIN (GLUCOPHAGE) 1,000 mg tablet Take 1,000 mg by mouth. cetirizine (ZyrTEC) 10 mg tablet TK 1 T PO QD 2 10/30/2016 03/01/2022 cholecalciferol (VITAMIN D-3) 50,000 unit tablet Take 1 tablet (50,000 Units total) by mouth once a week 4 tablet 1 06/19/2018 03/01/2022 clotrimazole 1 % cream 10/30/2016 03/01/2022 cyclobenzaprine (FLEXERIL) 10 mg tablet 08/08/2016 03/01/[address] (CYMBALTA) 30 mg capsule 08/10/2016 03/01/2022 ergocalciferol (VITAMIN D) 50,000 unit capsule TK 1 C PO WEEKLY 0 09/18/2016 03/01/2022 insulin aspart (NovoLOG) 100 unit/mL injection Inject under the skin. 03/01/2022 medroxyPROGESTERo ne (PROVERA) 10 mg tablet Take 1 tablet (10 mg total) by mouth daily for 14 days 14 tablet 07/14/2018 03/01/2022 traZODone (DESYREL) 100 mg tablet take 1 tablet by oral route 2 times every day after meals 0 0 09/30/2013 03/01/2022 documented as of this encounter Discharge Disposition Disposition Code Departure Means Destination Discharge to home or self care documented in this encounter Plan of Treatment Not on file documented as of this encounter Procedures Procedure Name Priority Date/Time Associated Diagnosis Comments MRI CERVICAL SPINE WO CONTRAST Schedule Routine, Read Routine (OP Routine) 04/18/2020 11:12 AM POOL NURSE Cervicalgia MRI LUMBAR SPINE WO CONTRAST Schedule Routine, Read Routine (OP Routine) 04/18/2020 10:32 AM POOL NURSE Dorsalgia documented in this encounter Results * MRI Cervical Spine WO Contrast (04/18/2020 11:12 AM POOL NURSE) Anatomical Region Laterality Modality Spine N/A Magnetic Resonan ce 04/18/2020 10:2 7 AM POOL NURSE Narrative 04/18/2020 12:18 PM POOL NURSE [facility] ?Imaging Result Name: MARY LOU MIDDLETON ? Ordering Phys: MILLICENT LUO Age: 44 ?Date of : 1975 ? Accession Number: [id number] Date of Service: 04/18/2020 ??Gender: F EXAM DESCRIPTION: ?? MRI CERVICAL SPINE WO CONTRAST; MRI LUMBAR SPINE WO CONTRAST REASON FOR STUDY: ??Chronic nontraumatic neck with right shoulder pain x3 months. ??Chronic nontraumatic low back and right leg pain radiating to the knee x3 months. ??No cervical spine surgery. ??Lumbar spinal fusion TECHNIQUE: ??Sagittal and axial imaging of the cervical and lumbar spine includes T1, T2, STIR and gradient echo sequences. COMPARISON: ?? MRI cervical spine without contrast 05/10/2016 ??CERVICAL SPINE: CERVICAL ALIGNMENT: ??Normal. CERVICAL VERTEBRAE: ??No MR evidence of acute-subacute fracture. ??Vertebral body heights unchanged. ??Mild spondylosis. ??Marrow signal within normal limits. CERVICAL DISCS: ??Variable intervertebral disc desiccation C2-3 through C4-5 with slight loss of intervertebral disc height at C4-5. CERVICAL HARDWARE: ??None in the cervical spine. CERVICAL CORD: ??Normal in size and signal intensity. BASE OF BRAIN: ??No significant finding. INDIVIDUAL DISC LEVELS: C1-C2: ??No spinal canal stenosis. C2-C3: ??No diffuse disc bulge or focal herniation. ??Mild bilateral facet arthropathy. ??No spinal canal stenosis. ??No neural foraminal stenosis. C3-C4: ??No diffuse disc bulge or focal herniation. ??Mild bilateral hypertrophic facet arthropathy. ??No spinal canal stenosis. ??No neural foraminal stenosis. C4-C5: ??No diffuse disc bulge or focal herniation. ??Mild bilateral hypertrophic facet arthropathy. ??No spinal canal stenosis. ??No neural foraminal stenosis. C5-C6: ??Mild annular disc bulge slightly indenting the ventral thecal sac. Mild bilateral facet arthropathy. ??No spinal canal stenosis. ??No neural foraminal stenosis. C6-C7: ??No diffuse disc bulge or focal herniation. ??Mild bilateral facet arthropathy. ??No spinal canal stenosis. ??No neural foraminal stenosis. C7-T1: ??No diffuse disc bulge or focal herniation. ??No spinal canal stenosis. No neural foraminal stenosis. CERVICAL OTHER: ??No other significant finding. LUMBAR SPINE: LUMBAR ALIGNMENT: ??Normal. LUMBAR VERTEBRAE: ??No MR evidence of acute-subacute fracture. ??Vertebral body heights unchanged. ??Spondylosis. ??Marrow signal within normal limits. LUMBAR DISCS: ??Of the non fused intervertebral disc levels, variable loss of intervertebral disc height at T10-11 and T11-12. LUMBAR HARDWARE: ??Interval anterior instrumented L4-L5 fusion with bilateral pedicle screws at these levels and L4-5 intervertebral disc spacer. LUMBAR CORD/CAUDA: ??Normal in size and signal intensity with conus medullaris termination at L1. VISUALIZED THORACIC SPINE: Incompletely imaged. ??No significant spinal canal stenosis or neural foraminal stenosis. IVIDUAL DISC LEVELS: T12-L1: No diffuse disc bulge or focal herniation. ??No spinal canal stenosis. No neural foraminal stenosis. L1-2: ??No diffuse disc bulge or focal herniation. ??Mild bilateral hypertrophic facet arthropathy. ??Mild ligamentum flavum thickening. ??No spinal canal stenosis. ??No neural foraminal stenosis. L2-3: ??No diffuse disc bulge or focal herniation. ??Mild bilateral hypertrophic facet arthropathy. ??Mild ligamentum flavum thickening. ??No spinal canal stenosis. ??No neural foraminal stenosis. L3-4: ??No diffuse disc bulge or focal herniation. ??Mild bilateral hypertrophic facet arthropathy. ??No spinal canal stenosis. ??No neural foraminal stenosis. L4-5: ??Fused at this level. ??No diffuse disc bulge or focal herniation. ??Mild bilateral hypertrophic facet arthropathy. ??No spinal canal stenosis. ??Minimal bilateral neural foraminal stenosis neural foraminal stenosis. L5-S1: ??Shallow central disc protrusion. ??Mild bilateral hypertrophic facet arthropathy. ??No spinal canal stenosis. ??No neural foraminal stenosis. LUMBAR OTHER: ??No other significant finding. SACRUM: ??Visualized upper sacrum intact. SOFT TISSUES: ??Limited incidental visualization of a left adnexal complicated cystic structure. OTHER: ??No other significant finding. IMPRESSION: 1. ??Mild spondylosis and degenerative disc disease of the cervical spine as detailed level by level above without spinal canal stenosis or neural foraminal stenosis. 2. ??Interval anterior instrumented spinal fusion L4-L5. 3. ??Spondylosis and degenerative disc disease of the lumbar spine as detailed level by level above without spinal canal stenosis or significant neural foraminal stenosis. 4. ??Limited incidental visualization of a left adnexal complicated cystic structure. ??Pelvic ultrasound recommended for further evaluation. THIS IS AN ELECTRONICALLY VERIFIED FINAL REPORT 04/18/2020 12:15 PM - Electronically signed by Felix Berg M.D. BALDOMERO: BALDOMERO D: ??04/18/2020 12:15 PM T: ??04/18/2020 12:15 PM Report ID: [id number] Reading Location: ??[id number] Procedure Note Felix Berg MD - 04/18/2020 [facility] Imaging Result Name: MARY LOU MIDDLETON Ordering Phys: MILLICENT LUO Age: 44 Date of : 1975 Accession Number: [id number] Date of Service: 04/18/2020 Gender: F EXAM DESCRIPTION: MRI CERVICAL SPINE WO CONTRAST; MRI LUMBAR SPINE WO CONTRAST REASON FOR STUDY: Chronic nontraumatic neck with right shoulder pain x3 months. Chronic nontraumatic low back and right leg pain radiating tothe knee x3 months. No cervical spine surgery. Lumbar spinal fusion TECHNIQUE: Sagittal and axial imaging of the cervical and lumbar spine includes T1, T2, STIR and gradient echo sequences. COMPARISON: MRI cervical spine without contrast 05/10/2016 CERVICAL SPINE: CERVICAL ALIGNMENT: Normal. CERVICAL VERTEBRAE: No MR evidence of acute-subacute fracture.Vertebral body heights unchanged. Mild spondylosis. Marrow signal within normallimits. CERVICAL DISCS: Variable intervertebral disc desiccation C2-3 throughC4-5 with slight loss of intervertebral disc height at C4-5. CERVICAL HARDWARE: None in the cervical spine. CERVICAL CORD: Normal in size and signal intensity. BASE OF BRAIN: No significant finding. INDIVIDUAL DISC LEVELS: C1-C2: No spinal canal stenosis. C2-C3: No diffuse disc bulge or focal herniation. Mild bilateral facet arthropathy. No spinal canal stenosis. No neural foraminal stenosis. C3-C4: No diffuse disc bulge or focal herniation. Mild bilateral hypertrophic facet arthropathy. No spinal canal stenosis. No neural foraminal stenosis. C4-C5: No diffuse disc bulge or focal herniation. Mild bilateral hypertrophic facet arthropathy. No spinal canal stenosis. No neural foraminal stenosis. C5-C6: Mild annular disc bulge slightly indenting the ventral thecalsac. Mild bilateral facet arthropathy. No spinal canal stenosis. No neural foraminal stenosis. C6-C7: No diffuse disc bulge or focal herniation. Mild bilateral facet arthropathy. No spinal canal stenosis. No neural foraminal stenosis. C7-T1: No diffuse disc bulge or focal herniation. No spinal canalstenosis. No neural foraminal stenosis. CERVICAL OTHER: No other significant finding. LUMBAR SPINE: LUMBAR ALIGNMENT: Normal. LUMBAR VERTEBRAE: No MR evidence of acute-subacute fracture. Vertebralbody heights unchanged. Spondylosis. Marrow signal within normal limits. LUMBAR DISCS: Of the non fused intervertebral disc levels, variable lossof intervertebral disc height at T10-11 and T11-12. LUMBAR HARDWARE: Interval anterior instrumented L4-L5 fusion withbilateral pedicle screws at these levels and L4-5 intervertebral disc spacer. LUMBAR CORD/CAUDA: Normal in size and signal intensity with conusmedullaris termination at L1. VISUALIZED THORACIC SPINE: Incompletely imaged. No significant spinalcanal stenosis or neural foraminal stenosis. IVIDUAL DISC LEVELS: T12-L1: No diffuse disc bulge or focal herniation. No spinal canalstenosis. No neural foraminal stenosis. L1-2: No diffuse disc bulge or focal herniation. Mild bilateralhypertrophic facet arthropathy. Mild ligamentum flavum thickening. No spinal canal stenosis. No neural foraminal stenosis. L2-3: No diffuse disc bulge or focal herniation. Mild bilateralhypertrophic facet arthropathy. Mild ligamentum flavum thickening. No spinal canal stenosis. No neural foraminal stenosis. L3-4: No diffuse disc bulge or focal herniation. Mild bilateralhypertrophic facet arthropathy. No spinal canal stenosis. No neural foraminalstenosis. L4-5: Fused at this level. No diffuse disc bulge or focal herniation.Mild bilateral hypertrophic facet arthropathy. No spinal canal stenosis.Minimal bilateral neural foraminal stenosis neural foraminal stenosis. L5-S1: Shallow central disc protrusion. Mild bilateral hypertrophicfacet arthropathy. No spinal canal stenosis. No neural foraminal stenosis. LUMBAR OTHER: No other significant finding. SACRUM: Visualized upper sacrum intact. SOFT TISSUES: Limited incidental visualization of a left adnexalcomplicated cystic structure. OTHER: No other significant finding. IMPRESSION: 1. Mild spondylosis and degenerative disc disease of the cervical spineas detailed level by level above without spinal canal stenosis or neural foraminal stenosis. 2. Interval anterior instrumented spinal fusion L4-L5. 3. Spondylosis and degenerative disc disease of the lumbar spine asdetailed level by level above without spinal canal stenosis or significant neural foraminal stenosis. 4. Limited incidental visualization of a left adnexal complicatedcystic structure. Pelvic ultrasound recommended for further evaluation. THIS IS AN ELECTRONICALLY VERIFIED FINAL REPORT 04/18/2020 12:15 PM - Electronically signed by Felix Berg M.D. BALDOMERO: BALDOMERO Report ID: [id number] Reading Location: [place] [address] [place] Millicent Luo MD IMG MRI PROCEDURES Final Result * MRI Lumbar Spine WO Contrast (04/18/2020 10:32 AM POOL NURSE) Anatomical Region Laterality Modality Spine N/A Magnetic Resonan ce 04/18/2020 9:30 AM POOL NURSE Narrative 04/18/2020 12:18 PM POOL NURSE [facility] ?Imaging Result Name: MARY LOU MIDDLETON ? Ordering Phys: MILLICENT LUO Age: 44 ?Date of : 1975 ? Accession Number: [id number] Date of Service: 04/18/2020 ??Gender: F EXAM DESCRIPTION: ?? MRI CERVICAL SPINE WO CONTRAST; MRI LUMBAR SPINE WO CONTRAST REASON FOR STUDY: ??Chronic nontraumatic neck with right shoulder pain x3 months. ??Chronic nontraumatic low back and right leg pain radiating to the knee x3 months. ??No cervical spine surgery. ??Lumbar spinal fusion TECHNIQUE: ??Sagittal and axial imaging of the cervical and lumbar spine includes T1, T2, STIR and gradient echo sequences. COMPARISON: ?? MRI cervical spine without contrast 05/10/2016 ??CERVICAL SPINE: CERVICAL ALIGNMENT: ??Normal. CERVICAL VERTEBRAE: ??No MR evidence of acute-subacute fracture. ??Vertebral body heights unchanged. ??Mild spondylosis. ??Marrow signal within normal limits. CERVICAL DISCS: ??Variable intervertebral disc desiccation C2-3 through C4-5 with slight loss of intervertebral disc height at C4-5. CERVICAL HARDWARE: ??None in the cervical spine. CERVICAL CORD: ??Normal in size and signal intensity. BASE OF BRAIN: ??No significant finding. INDIVIDUAL DISC LEVELS: C1-C2: ??No spinal canal stenosis. C2-C3: ??No diffuse disc bulge or focal herniation. ??Mild bilateral facet arthropathy. ??No spinal canal stenosis. ??No neural foraminal stenosis. C3-C4: ??No diffuse disc bulge or focal herniation. ??Mild bilateral hypertrophic facet arthropathy. ??No spinal canal stenosis. ??No neural foraminal stenosis. C4-C5: ??No diffuse disc bulge or focal herniation. ??Mild bilateral hypertrophic facet arthropathy. ??No spinal canal stenosis. ??No neural foraminal stenosis. C5-C6: ??Mild annular disc bulge slightly indenting the ventral thecal sac. Mild bilateral facet arthropathy. ??No spinal canal stenosis. ??No neural foraminal stenosis. C6-C7: ??No diffuse disc bulge or focal herniation. ??Mild bilateral facet arthropathy. ??No spinal canal stenosis. ??No neural foraminal stenosis. C7-T1: ??No diffuse disc bulge or focal herniation. ??No spinal canal stenosis. No neural foraminal stenosis. CERVICAL OTHER: ??No other significant finding. LUMBAR SPINE: LUMBAR ALIGNMENT: ??Normal. LUMBAR VERTEBRAE: ??No MR evidence of acute-subacute fracture. ??Vertebral body heights unchanged. ??Spondylosis. ??Marrow signal within normal limits. LUMBAR DISCS: ??Of the non fused intervertebral disc levels, variable loss of intervertebral disc height at T10-11 and T11-12. LUMBAR HARDWARE: ??Interval anterior instrumented L4-L5 fusion with bilateral pedicle screws at these levels and L4-5 intervertebral disc spacer. LUMBAR CORD/CAUDA: ??Normal in size and signal intensity with conus medullaris termination at L1. VISUALIZED THORACIC SPINE: Incompletely imaged. ??No significant spinal canal stenosis or neural foraminal stenosis. IVIDUAL DISC LEVELS: T12-L1: No diffuse disc bulge or focal herniation. ??No spinal canal stenosis. No neural foraminal stenosis. L1-2: ??No diffuse disc bulge or focal herniation. ??Mild bilateral hypertrophic facet arthropathy. ??Mild ligamentum flavum thickening. ??No spinal canal stenosis. ??No neural foraminal stenosis. L2-3: ??No diffuse disc bulge or focal herniation. ??Mild bilateral hypertrophic facet arthropathy. ??Mild ligamentum flavum thickening. ??No spinal canal stenosis. ??No neural foraminal stenosis. L3-4: ??No diffuse disc bulge or focal herniation. ??Mild bilateral hypertrophic facet arthropathy. ??No spinal canal stenosis. ??No neural foraminal stenosis. L4-5: ??Fused at this level. ??No diffuse disc bulge or focal herniation. ??Mild bilateral hypertrophic facet arthropathy. ??No spinal canal stenosis. ??Minimal bilateral neural foraminal stenosis neural foraminal stenosis. L5-S1: ??Shallow central disc protrusion. ??Mild bilateral hypertrophic facet arthropathy. ??No spinal canal stenosis. ??No neural foraminal stenosis. LUMBAR OTHER: ??No other significant finding. SACRUM: ??Visualized upper sacrum intact. SOFT TISSUES: ??Limited incidental visualization of a left adnexal complicated cystic structure. OTHER: ??No other significant finding. IMPRESSION: 1. ??Mild spondylosis and degenerative disc disease of the cervical spine as detailed level by level above without spinal canal stenosis or neural foraminal stenosis. 2. ??Interval anterior instrumented spinal fusion L4-L5. 3. ??Spondylosis and degenerative disc disease of the lumbar spine as detailed level by level above without spinal canal stenosis or significant neural foraminal stenosis. 4. ??Limited incidental visualization of a left adnexal complicated cystic structure. ??Pelvic ultrasound recommended for further evaluation. THIS IS AN ELECTRONICALLY VERIFIED FINAL REPORT 04/18/2020 12:15 PM - Electronically signed by Felix Berg M.D. BALDOMERO: BALDOMERO D: ??04/18/2020 12:15 PM T: ??04/18/2020 12:15 PM Report ID: [id number] Reading Location: ??[id number] Procedure Note Felix Berg MD - 04/18/2020 [facility] Imaging Result Name: MARY LOU MIDDLETON Ordering Phys: MILLICENT LUO Age: 44 Date of : 1975 Accession Number: [id number] Date of Service: 04/18/2020 Gender: F EXAM DESCRIPTION: MRI CERVICAL SPINE WO CONTRAST; MRI LUMBAR SPINE WO CONTRAST REASON FOR STUDY: Chronic nontraumatic neck with right shoulder pain x3 months. Chronic nontraumatic low back and right leg pain radiating tothe knee x3 months. No cervical spine surgery. Lumbar spinal fusion TECHNIQUE: Sagittal and axial imaging of the cervical and lumbar spine includes T1, T2, STIR and gradient echo sequences. COMPARISON: MRI cervical spine without contrast 05/10/2016 CERVICAL SPINE: CERVICAL ALIGNMENT: Normal. CERVICAL VERTEBRAE: No MR evidence of acute-subacute fracture.Vertebral body heights unchanged. Mild spondylosis. Marrow signal within normallimits. CERVICAL DISCS: Variable intervertebral disc desiccation C2-3 throughC4-5 with slight loss of intervertebral disc height at C4-5. CERVICAL HARDWARE: None in the cervical spine. CERVICAL CORD: Normal in size and signal intensity. BASE OF BRAIN: No significant finding. INDIVIDUAL DISC LEVELS: C1-C2: No spinal canal stenosis. C2-C3: No diffuse disc bulge or focal herniation. Mild bilateral facet arthropathy. No spinal canal stenosis. No neural foraminal stenosis. C3-C4: No diffuse disc bulge or focal herniation. Mild bilateral hypertrophic facet arthropathy. No spinal canal stenosis. No neural foraminal stenosis. C4-C5: No diffuse disc bulge or focal herniation. Mild bilateral hypertrophic facet arthropathy. No spinal canal stenosis. No neural foraminal stenosis. C5-C6: Mild annular disc bulge slightly indenting the ventral thecalsac. Mild bilateral facet arthropathy. No spinal canal stenosis. No neural foraminal stenosis. C6-C7: No diffuse disc bulge or focal herniation. Mild bilateral facet arthropathy. No spinal canal stenosis. No neural foraminal stenosis. C7-T1: No diffuse disc bulge or focal herniation. No spinal canalstenosis. No neural foraminal stenosis. CERVICAL OTHER: No other significant finding. LUMBAR SPINE: LUMBAR ALIGNMENT: Normal. LUMBAR VERTEBRAE: No MR evidence of acute-subacute fracture. Vertebralbody heights unchanged. Spondylosis. Marrow signal within normal limits. LUMBAR DISCS: Of the non fused intervertebral disc levels, variable lossof intervertebral disc height at T10-11 and T11-12. LUMBAR HARDWARE: Interval anterior instrumented L4-L5 fusion withbilateral pedicle screws at these levels and L4-5 intervertebral disc spacer. LUMBAR CORD/CAUDA: Normal in size and signal intensity with conusmedullaris termination at L1. VISUALIZED THORACIC SPINE: Incompletely imaged. No significant spinalcanal stenosis or neural foraminal stenosis. IVIDUAL DISC LEVELS: T12-L1: No diffuse disc bulge or focal herniation. No spinal canalstenosis. No neural foraminal stenosis. L1-2: No diffuse disc bulge or focal herniation. Mild bilateralhypertrophic facet arthropathy. Mild ligamentum flavum thickening. No spinal canal stenosis. No neural foraminal stenosis. L2-3: No diffuse disc bulge or focal herniation. Mild bilateralhypertrophic facet arthropathy. Mild ligamentum flavum thickening. No spinal canal stenosis. No neural foraminal stenosis. L3-4: No diffuse disc bulge or focal herniation. Mild bilateralhypertrophic facet arthropathy. No spinal canal stenosis. No neural foraminalstenosis. L4-5: Fused at this level. No diffuse disc bulge or focal herniation.Mild bilateral hypertrophic facet arthropathy. No spinal canal stenosis.Minimal bilateral neural foraminal stenosis neural foraminal stenosis. L5-S1: Shallow central disc protrusion. Mild bilateral hypertrophicfacet arthropathy. No spinal canal stenosis. No neural foraminal stenosis. LUMBAR OTHER: No other significant finding. SACRUM: Visualized upper sacrum intact. SOFT TISSUES: Limited incidental visualization of a left adnexalcomplicated cystic structure. OTHER: No other significant finding. IMPRESSION: 1. Mild spondylosis and degenerative disc disease of the cervical spineas detailed level by level above without spinal canal stenosis or neural foraminal stenosis. 2. Interval anterior instrumented spinal fusion L4-L5. 3. Spondylosis and degenerative disc disease of the lumbar spine asdetailed level by level above without spinal canal stenosis or significant neural foraminal stenosis. 4. Limited incidental visualization of a left adnexal complicatedcystic structure. Pelvic ultrasound recommended for further evaluation. THIS IS AN ELECTRONICALLY VERIFIED FINAL REPORT 04/18/2020 12:15 PM - Electronically signed by Felix Berg M.D. BALDOMERO: BALDOMERO Report ID: [id number] Reading Location: [place] [address] Millicent Luo MD [facility] MRI PROCEDURES Final Result documented in this encounter Visit Diagnoses Diagnosis Cervicalgia Dorsalgia Pain in thoracic spine documented in this encounter Care Teams Furnace Builder Relationship Specialty Start Date End Date Enma Jones MD PCP - General 10/15/18 04/18/22 documented as of this encounter
--- OUTSIDE RECORDS SUMMARY | 2024-02-12 03:38 | XMS_ITS | Encounter Summary ---
Author Organization [facility] Healthcare Address [address] [place] [address] Care Team Providers Care Equipment Planner Name Role Phone Enma Jones MD Primary Care Provider [phone] Encounter Details Date Type Department Care Team (Latest Contact Info) Description 01/24/2022 11:12 AM TRESTLEMAN - 01/24/2022 11:59 PM TRESTLEMAN Hospital Encounter [place] [id number] Discharge Disposition: Discharge to home or self [...] on file Legal Sex Female 1:16 PM TRESTLEMAN Gender Identity Not on file Sexual Orientation [...] on filedocumented in this encounter Care Teams Equipment Planner Relationship Specialty Start Date End Date Enma Jones MD PCP - General 10/15/18 04/18/22 Alana Gaytan [facility] [address] [place] [address] Home Comfort Advisor Infectious Diseases 01/24/22 documented as of this encounter
--- OUTSIDE RECORDS SUMMARY | 2024-02-12 03:38 | XMS_ITS | Referral Summary ---
Author Organization [facility] Address [address] [place] [address] Care Team Providers Care Hand Method Lasting Machine Operator Name Role Phone Wilmer Carnes MD Primary Care Provider [phone] Allergies Active Allergy Reactions Criticality Noted Date Comments Parada Anaphylaxis High 08/11/2010 Iodinated Contrast Media Unknown 07/06/2014 Itching Iodine Other (See comments),Rash,Hives Medium 03/17/2010 Reaction: Hives, Risperidone Other (See comments) Low Reaction: OTHER REACTION Medications ARIPiprazole (ABILIFY) 5 mg tablet take 1 tablet by oral route every day 0 0 4 Active Additional Information Patient taking differently: 15 mg, Reported on 03/28/2022 metFORMIN (GLUCOPHAGE) 1,000 mg tablet Take 1,000 mg by mouth. 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 01/28/2022 COVID-19 hari church manifes ting chronic concentration deficit 01/28/2022 COVID-19 hari church manifesting chronic fatigue 01/28/2022 Tinnitus of both ears 01/28/2022 Disrupted sleep-wake cycle 01/28/2022 Type 2 diabetes mellitus 10/04/2013 Overview (05/31/2016): Diabetes mellitus type 2 Posttraumatic stress disorder 10/04/2013 Overview (05/31/2016): PTSD Social History Tobacco Use Types Packs/Day Years Used Date Smoking Tobacco: Former Cigarettes Smokeless Tobacco: Never Tobacco Cessation:Counseling Given: Not Answered Comments:states she quit eight years ago Alcohol Use Standard Drinks/Week Comments No 0 (1 standard drink = 0.6 oz pur e alcohol) AUDIT-C Answer Date Recorded Q1: How often do you have a drink containing alc ohol? Monthly or less 03/01/2022 Average Number of Drinks Not on file 023 Frequency of Binge Drinking Not on file 07/2022 Personal Safety Answer Date Recorded Getting School Help Needed Not on file 04/20 Comments No Sex and Gender Information Value Date Recorded Sex Assigned at Not on file Legal Sex Female 1:16 PM MANAGER GAME Gender Identity Not on file Sexual Orientation Not on file Last Filed Vital Signs Vital Sign Reading Time Taken Comments Blood Pressure 119/74 01/24/2022 9:39 AM MANAGER GAME Pulse 77 01/24/2022 9:39 AM MANAGER GAME Temperature 37 ??C (98.6 ??F) 01/24/2022 9:39 AM MANAGER GAME Respiratory Rate 18 08/10/2018 12:40 PM CDT Oxygen Saturation 99% 08/10/2018 12:40 PM CDT Inhaled Oxygen Concentration - - Weight 91.8 kg (202 lb 4.8 oz) 01/24/2022 9:39 A M MANAGER GAME Height 157.5 cm (5' 2 ) 07/09/2018 10:05 AM CDT Body Mass Index 37 07/09/2018 10:05 AM CDT Plan of Treatment Not on file Procedures Procedure Name Priority Date/Time Associated Diagnosis Comments EGFR Routine 01/24/2022 11:21 AM MANAGER GAME Long COVID HEMOGLOBIN A1C Routine 10/15/2018 1:00 PM CDT SCREENING MAMMOGRAM BILATERAL W ASHWIN Schedule Routine, Read Routine (OP Routine) 06/19/2018 10:55 AM CDT Visit for screening mammogram Breast pain IMAGING PAP AND HPV MRNA E6/E7 Routine 06/05/2018 3:25 PM CDT Well woman exam HEPATITIS PANEL, ACUTE Routine 07/06/2014 10:46 AM CDT from Last 3 Months or Most Recently Relevant to Health Maintenance Results * eGFR (01/24/2022 11:21 AM MANAGER GAME) eGFR >90 90 - 130 mL/min/1. 73 m2 [facility] Comment: Interpretive Data Reference Interval Normal ?>/= 90 mL/min/1.73m2 Mildly decreased* ? 60 - 89 mL/min/1.73m2 Mildly to moderately decreased ?45 - 59 mL/min/1.73m2 Moderately to severely decreased ??30 - 44 mL/min/1.73m2 Severely decreased ?15 - 29 mL/min/1.73m2 Kidney Failure ?< 15 ??mL/min/1.73m2 *Relative to young adult level Estimated glomerular filtration rate is determined by the 2020 CKD-EPI equation recommended by the National Kidney Foundation (A Unifying Approach to GFR Estimation: Recommendations of the NKF-ASK Task Force on Reassessing the Inclusion of Race in Diagnosing Kidney Disease, JASN 2020). The CKD-EPI equation should not be used for patients with unstable renal function and has not been validated in children and those over 70. Current interpretive data was last reviewed 2020. Blood 01/24/2022 11:2 1 AM MANAGER GAME 01/24/2022 4:16 PM MANAGER GAME Aliyah Varghese NP LAB BLOOD ORDERABLES Final Result [facility] Department [place] [address] * (ABNORMAL) Hemoglobin A1c (10/15/2018 1:00 PM CDT) Hgb A1C 9.6(H) 4.0 - 5.6 % [facility] (SAL) Estimated Average Glucose 229 mg/dL [facility] ([facility]) Comment: The ADA recommends reporting an estimated Average Glucose (eAG) with all Hemoglobin A1c results using the equation derived from a study of 507 normal and diabetic adults. ??Minority populations were underrepresented and children were not included. ?? (Diabetes Care 31:1370-5880, 2007). ??The eAG is not equivalent to a fasting glucose. Blood specimen (specimen) 10/15/2018 1:00 PM CDT 10/15/2018 2:50 PM CDT Enma Jones MD LAB BLOOD ORDERABLES Candy l Result Performing Organization Address City/[facility]/ZIP Co de Phone Number MARIA M [facility]END[facility] 1 [facility] Department [place] [address] * Screening Mammogram Bilateral W Ashwin (06/19/2018 10:55 AM CDT) Anatomical Region Laterality Modality Breast Bilateral Mammography 06/19/2018 11:0 0 AM CDT Impressions 06/19/2018 11:04 AM CDT 1. NO DEFINITIVE MAMMOGRAPHIC EVIDENCE OF MALIGNANCY 2. ??ANNUAL FOLLOW-UP RECOMMENDED BI-RADS 2 Electronically signed by: Darren Medina M.D. Narrative 06/19/2018 11:04 AM CDT SCREENING MAMMOGRAM BILATERAL W ASHWIN HISTORY: Encounter for screening mammogram for malignant neoplasm of breast TECHNIQUE: 2 views of each breast were obtained with bilateral breast tomosynthesis. COMPARISON: None available. FINDINGS: The breasts are heterogeneously dense. No suspicious mass or calcification is seen to suggest mammographic evidence of malignancy. Their are bilateral benign breast calcifications. Digital technology was employed plus computer aided detection software (R2) was utilized in interpretation of these images. ??This facility utilizes a reminder system to notify patient's of yearly mammograms. us Veronica Chacon ELECTRICAL LOGGER IMG MAMMO PROCEDURES Final Resul t * Imaging Pap and HPV mRNA E6/E7 (06/05/2018 3:25 PM CDT) Report status CANCELED [facility] Comment:Result canceled by t he ancillary. CLINICAL INFORMATION: [facility] Comment:Information not prov ided LMP [facility] Comment:INFORMATION NOT PROV IDED Previous Pap [facility] [place] Comment:INFORMATION NOT PROV IDED Prev. Bx [facility] Comment:INFORMATION NOT PROV IDED SOURCE: [facility] Comment:Information not prov ided Pap, specimen adequacy [facility] Comment: Satisfactory for evaluation. Endocervical/transformation zone component present. Age and/or menstrual status not provided Pap, general categorization CANCELED [facility] Comment:Result canceled by t he ancillary. HPV interp [facility] Comment:Negative for intraep ithelial lesion or malignancy. Infection: CANCELED [facility] Comment:Result canceled by t he ancillary. COMMENTS [facility] Comment: This Pap test has been evaluated with computer assisted technology. Refractive Surgeon [facility] Comment:DODGE, CT(ASCP) Review manager clinical research CANCELED [facility] Comment:Result canceled by t he ancillary. Pathologist CANCELED [facility] Comment:Result canceled by t he ancillary. Comment [facility] Comment: EXPLANATORY NOTE: The Pap is a screening test for cervical cancer. It is not a diagnostic test and is subject to false negative and false positive results. It is most reliable when a satisfactory sample, regularly obtained, is submitted with relevant clinical findings and history, and when the Pap result is evaluated along with historic and current clinical information. Human papillomavirus RNA, High Risk E6/E7 Not Detected Not Detected [facility] [place] Comment: This test was performed using the APTIMA HPV Assay ([employer].). This assay detects E6/E7 viral messenger RNA (mRNA) from 14 high-risk HPV types (16,18,31,33,35,39,45,51,52,56,58,59,66,68). The analytical performance characteristics of this assay have been determined by [facility]. The modifications have not been cleared or approved by the FDA. This assay has been validated pursuant to the CLIA regulations and is used for clinical purposes. Endocervical/vag inal 06/05/2018 3:25 PM CDT 06/08/2018 1:03 PM CDT Narrative Resulting Agency Comment Performing Organization Information: ?Site ID: [place] ?Name: [facility] ?Address: [address] [place] [address] ?Director: Av Schreiber D.O., SAI ?Site ID: ?[facility] ?Address: [address] [place] [address] ?Director: Ben Raphael Veronica Chacon ELECTRICAL LOGGER LAB PATHOLOGY ORDERABLES Final R esult [facility] [place], [place] [facility] [place] Lisa KERON * Hepatitis panel, acute (07/06/2014 10:46 AM CDT) HepBsAg NONREACT NONREACTIVE 07/06/2014 11:54 AM LearncafeT [facility] HISTORICAL RESULTS Comment: Siemens CentaurXP using MARGARITA (chemiluminescent immunoassay) technology. NONREACTIVE: IgM antibodies to Hepatitis B Surface antigen not detected. REACTIVE: IgM antibodies to Hepatitis B Surface antigen detected. Reactive results will be confirmed by neutralization testing. HBsAb (immune status) NONREACT NONREACTIVE 07/06/2014 11:43 AM LearncafeT [facility] [email or web address] HISTORICAL RESULTS Comment: Siemens CentaurXP using MARGARITA (chemiluminescent immunoassay) technology. NONREACTIVE: IgM antibodies to Hepatitis B Surface antibody not detected. REACTIVE: IgM antibodies to Hepatitis B Surface antibody detected. Hep B core IgM NONREACT NONREACTIVE 5 12:22 PM CDT [employer] [email or web address] HISTORICAL RESULTS Comment: Siemens CentaurXP using MARGARITA (chemiluminescent immunoassay) technology. NONREACTIVE: IgM antibodies to Hepatitis B Core antigen not detected. EQUIVOCAL: IgM antibodies to Hepatitis B Core antigen may or may not be present. Obtain a ??new specimen and retest. REACTIVE: IgM antibodies to Hepatitis B Core antigen detected. Hep A IgM NONREACT NONREACTIVE 07/06/2014 12:24 PM CDT [facility] HISTORICAL RESULTS Comment: Siemens CentaurXP using MARGARITA (chemiluminescent immunoassay) technology. NONREACTIVE: IgM antibodies to Hepatitis A not detected. This does not exclude possibility of exposure to Hepatitis A or early acute infection. EQUIVOCAL:IgM antibodies to Hepatitis A may or may not be present. Suggest recollection and retest. REACTIVE: Antibodies to Hepatitis A detected. Hep C Ab NONREACT NONREACTIVE 07/06/2014 12:22 PM CDT [facility] HISTORICAL RESULTS Comment: Siemens CentaurXP using MARGARITA (chemiluminescent immunoassay) technology. NONREACTIVE: Antibodies to Hepatitis C not detected. This does not exclude early acute Hepatitis C infection, possibility of exposure to Hepatitis C, antibodies below detection limit, or to lack of antibody reactivity to the antigen used in this assay. EQUIVOCAL: Antibodies to Hepatitis C may or may not be present. ??Sample to be confirmed by real-time PCR method. REACTIVE: Antibodies to Hepatitis C detected. 07/06/2014 10:4 6 AM CDT 07/06/2014 11:05 AM CDT Lorena SCOTT LAB MICROBIOLOGY - GENE [facility] ORDERABLES Final Result [facility] HISTORICAL RESULTS from Last 3 Months or Most Recently Relevant to Health Maintenance Insurance MEDICARE [facility] CARE OTHER HUMA[employer] CHOICE [facility]IC[facility] MEDIC[facility] PPO [facility] MEDICARE HMO Care Teams Hand Method Lasting Machine Operator Relationship Specialty Start Date End Date Wilmer Carnes MD PCP - General Family Medicine 04/19/22 Alana Gaytan [facility] [address] [place] [address] Actuarial Mathematician Infectious Diseases 01/24/22
--- OUTSIDE RECORDS SUMMARY | 2024-02-12 03:38 | XMS_ITS | Clinical Summary ---
Author Organization [facility] Address [address] [place] [address] Care Team Providers Care Strip Presser Name Role Phone Wilmer Carnes MD Primary Care Provider [phone] Allergies Active Allergy Reactions Criticality Noted Date [...] ting chronic concentration deficit 01/28/2022 COVID-19 hari petituler manifesting chronic fatigue 01/28/2022 Tinnitus of both ears 01/28/2022 Disrupted sleep-wake cycle 01/28/2022 Type 2 diabetes mellitus 10/04/2013 Overview (05/31/2016): Diabetes mellitus type 2 Posttraumatic stress disorder 10/04/2013 Overview (05/31/2016): PTSD Surgical History Surgery Date Site/Laterality Comments LAPAROSCOPIC CHOLECYSTECTOMY Laparoscopic cholecystectomy ADENOIDECTOMY Adenoidectomy OTHER SURGICAL HISTORY 08/13/2017 rods in spine Medical History Medical History Date Comments Asthma Asthma; Comments : DWL 12/28/2015 - Depression Depression Polycystic ovary syndrome Diabetes (HCC) Autoimmune disease (CMS/HCC) (HCC) Sleep apnea Anxiety Arthritis Migraine Family History Medical History Relation Name Comments Diabetes Father Diabetes type II Father Diabetes me llitus type 2; Heart attack Father Myocardial infa rction; Heart failure Father CHF; Cause of : CHF Stroke Other 1 Family history of Stroke; Arthritis Other 2 Family history of Arthritis; Coronary artery disease Other 3 Fami ly history of Coronary artery disease; Polycystic ovary syndrome Sister Relation Name Status Comments Father (Age 28) Other 1 Other 2 Other 3 Sister Social History Tobacco Use Types Packs/Day [...] on file Legal Sex Female 1:16 PM DISEASE INTERVENTION SPECIALIST Gender Identity Not on file Sexual Orientation Not on file Obstetrics History Para Term AB IAB SAB Ectopic Multiple Livin g Live Births 3 3 3 0 0 Date Outcome GA Total Labor Labor/2nd/3rd Weight Sex Type Anes PTL Alesha A1 A5 Name Clin SAB SAB SAB Last Filed Vital Signs Vital Sign Reading Time Taken Comments Blood Pressure 119/74 01/24/2022 9:39 AM DISEASE INTERVENTION SPECIALIST Pulse 77 01/24/2022 9:39 AM DISEASE INTERVENTION SPECIALIST Temperature 37 ??C (98.6 ??F) 01/24/2022 9:39 AM DISEASE INTERVENTION SPECIALIST Respiratory Rate 18 08/10/2018 12:40 PM CDT Oxygen Saturation 99% 08/10/2018 12:40 PM CDT Inhaled Oxygen Concentration - - Weight 91.8 kg (202 lb 4.8 oz) 01/24/2022 9:39 A M DISEASE INTERVENTION SPECIALIST Height 157.5 cm (5' 2 ) 07/09/2018 10:05 AM CDT Body Mass Index 37 07/09/2018 10:05 AM CDT Plan of Treatment Health Maintenance Due Date Last Done Comments Albumin Creatinine Ratio, Urine 1973 Colon Cancer Screening-Colonoscopy 1973 Depression Screening 1973 Dilated Eye Exam 1973 Foot Exam 1973 Lipid Panel 1973 DTaP/Tdap/Td Vaccine (1 - Tdap) 1984 Hepatitis B Screening 09/11/1991 Hemoglobin A1C 04/17/2019 10/15/2018 Cervical Cancer Screening 06/06/2019 06/05/2018 Regular Well Visit/Exam 18-64 06/06/2019 06/05/2018 Breast Cancer Screening-Mammogram 06/20/2019 019 Pneumococcal vaccine <65 (2 of 2 - PCV) 11/27/2019 11/26/2018 eGFR 01/24/2023 01/24/2022, 10/15/2018 Zoster Vaccine (1 of 2) 09/11/2023 Influenza Vaccine (#1) 2023 9, 10/30/2016, 12/20/2015, Additional history exists Hepatitis C Screening Completed 07/06/2014 Procedures Procedure Name Priority Date/Time Associated Diagnosis Comments EGFR Routine 01/24/2022 11:21 AM DISEASE INTERVENTION SPECIALIST Long COVID HEMOGLOBIN A1C Routine 10/15/2018 1:00 [...] Maintenance Results * eGFR (01/24/2022 11:21 AM DISEASE INTERVENTION SPECIALIST) eGFR >90 90 - 130 mL/min/1. 73 [...] reviewed 2020. Blood 01/24/2022 11:2 1 AM DISEASE INTERVENTION SPECIALIST 01/24/2022 4:16 PM DISEASE INTERVENTION SPECIALIST Aliyah Varghese WARRANTY COORDINATOR LAB BLOOD ORDERABLES Final Result [facility] M [facility] Department [place] [address] * (ABNORMAL) Hemoglobin A1c (10/15/2018 1:00 PM CDT) Hgb A1C 9.6(H) 4.0 - 5.6 % [facility] ([place]) Estimated Average Glucose 229 mg/dL [facility] ([facility]) Comment: The ADA recommends reporting an estimated Average Glucose (eAG) with all Hemoglobin A1c results using the equation derived from a study of 507 normal and diabetic adults. ??Minority populations were underrepresented and children were not included. ?? (Diabetes Care 31:6536-6396, 2007). ??The eAG is not equivalent to a fasting glucose. Blood specimen (specimen) 10/15/2018 1:00 PM CDT 10/15/2018 2:50 PM CDT Enma Jones MD LAB BLOOD ORDERABLES Candy [email or web address] Result MARIA M [facility] Department [place] [address] * Screening Mammogram Bilateral W Ashwin (06/19/2018 [...] system to notify patient's of yearly mammograms. Veronica Chacon NP IMG MAMMO PROCEDURES Final Resul t * [...] has been evaluated with computer assisted technology. Warehouse Director [facility] Comment:DODGE, [place](ASCP) Review director of hotel CANCELED [facility] Comment:Result canceled [...] was performed using the APTIMA HPV Assay ([employer] This assay detects E6/E7 viral messenger RNA (mRNA) from 14 high-risk HPV types (16,18,31,33,35,39,45,51,52,56,58,59,66,68). The analytical performance characteristics of this assay have been determined by [facility]. The modifications have not been cleared or approved by the FDA. This assay has been validated pursuant to the CLIA regulations and is used for clinical purposes. Endocervical/vag inal 06/05/2018 3:25 PM CDT 06/08/2018 1:03 PM CDT Narrative Resulting Agency Comment Performing Organization Information: ?Site ID: [place] ?Name: [facility] ?Address: [address] [place] [address] ?Director: Av Schreiber D.O., MPH ?Site ID: ?[facility] ?Address: [address] [place] [address] ?Director: Ben Raphael Veronica Chacon WARRANTY COORDINATOR LAB PATHOLOGY ORDERABLES Final R esult [facility] - [place], [place] [facility] - [place], [place] * Hepatitis panel, acute (07/06/2014 10:46 AM CDT) HepBsAg NONREACT NONREACTIVE Comment: Siemens CentaurXP using MARGARITA (chemiluminescent immunoassay) technology. NONREACTIVE: IgM antibodies to Hepatitis B Surface antigen not detected. REACTIVE: IgM antibodies to Hepatitis B Surface antigen detected. Reactive results will be confirmed by neutralization testing. HBsAb (immune status) NONREACT NONREACTIVE 07/06/2014 11:43 AM Row Sham BowT [facility] HISTORICAL RESULTS Comment: Siemens CentaurXP using MARGARITA (chemiluminescent immunoassay) technology. NONREACTIVE: IgM antibodies to Hepatitis B Surface antibody not detected. REACTIVE: IgM antibodies to Hepatitis B Surface antibody detected. Hep B core IgM NONREACT NONREACTIVE 5 12:22 PM CDT [facility] HISTORICAL RESULTS Comment: Siemens CentaurXP using MARGARITA (chemiluminescent immunoassay) technology. NONREACTIVE: IgM antibodies to Hepatitis B Core antigen not detected. EQUIVOCAL: IgM antibodies to Hepatitis B Core antigen may or may not be present. Obtain a ??new specimen and retest. REACTIVE: IgM antibodies to Hepatitis B Core antigen detected. Hep A IgM NONREACT NONREACTIVE Comment: Siemens CentaurXP using MARGARITA (chemiluminescent immunoassay) technology. NONREACTIVE: IgM antibodies to Hepatitis A not detected. This does not exclude possibility of exposure to Hepatitis A or early acute infection. EQUIVOCAL:IgM antibodies to Hepatitis A may or may not be present. Suggest recollection and retest. REACTIVE: Antibodies to Hepatitis A detected. Hep C Ab NONREACT NONREACTIVE Comment: Siemens CentaurXP using MARGARITA (chemiluminescent immunoassay) [...] CDT Lorena SCOTT LAB MICROBIOLOGY - GENE RAL ORDERABLES Final Result [facility] HISTORICAL RESULTS from Last 3 Months or Most Recently Relevant to Health Maintenance Insurance MEDICARE [facility] CARE OTHER HUMANA CHOICE MEDICARE PPO [employer] CHOICE MEDICARE PPO [facility] MEDICARE HMO Care Teams Strip Presser Relationship Specialty Start Date End Date Wilmer Carnes MD PCP - General Family Medicine 04/19/22 Alana Gaytan, [facility] [address] [place] [address] Motorsports Technician Infectious Diseases 01/24/22
--- OUTSIDE RECORDS SUMMARY | 2024-02-12 03:38 | XMS_ITS | Encounter Summary ---
Author Organization [facility] Address [address] [place] [address] Phone Care Team Providers Care Office Coordinator Receptionist Name Role Phone Enma Jones MD Primary Care Provider [phone] Reason for Referral * (Routine) - Closed Specialty Diagnoses / Procedures Referred By Contac t Referred To Contact Diagnoses Tinnitus of both ears Procedures Tympanometry Aliyah Varghese NP [address] [facility] [address] [place] [address] Phone: tel: fax: [facility] (All Locations) Referral ID Status Reason Start Date Expiration Date Visits Re quested Visits Authorized [id number] Closed 01/28/2022 02/27/2023 1 1 ER PRESS OPERATOR Reason for Visit * Reason Comments New Patient * Consultation (Routine) - Closed Specialty Diagnoses / Procedures Referred By Contac t Referred To Contact Infectious Diseases Diagnoses COVID-19 Marv Armstrong MD [address] [facility] [address] [place] [address] Phone: tel: fax: [facility] (All Locations) Referral ID Status Reason Start Date Expiration Date V isits Requested Visits Authorized [id number] Closed Specialty Services Required 09/25/2021 10/25/2022 40 40 Encounter Details Date Type Department Care Team (Late st Contact Info) Description 01/24/2022 9:00 AM VENEER PRESS OPERATOR Office Visit [facility] Infectious Diseases [address] [place] [address] [address] [place] [address] Aliyah Varghese NP [address] [facility] [address] [place] [address] Ben MUELLERID (Primary Dx); COVID-19; 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; COVID-19 long hauler manifesting chronic concentration deficit; COVID-19 long hauler manifesting chronic fatigue; Posttraumatic stress disorder; Tinnitus of both ears; Disrupted sleep-wake cycle Social History Tobacco Use Types Packs/Day Years Used Date Smoking Tobacco: Former Cigarettes Smokeless Tobacco: Never Tobacco Cessation:Counseling Given: Not Answered Comments:states she quit eight years ago Alcohol Use Standard Drinks/Week Comments No 0 (1 standard drink = 0.6 oz pur e alcohol) Comments No Sex and Gender Information Value Date Recorded Sex Assigned at Not on file Legal Sex Female 1:16 PM VENEER PRESS OPERATOR Gender Identity Not on file Sexual Orientation Not on file documented as of this encounter Last Filed Vital Signs Vital Sign Reading Time Taken Comments Blood Pressure 119/74 01/24/2022 9:39 AM VENEER PRESS OPERATOR Pulse 77 01/24/2022 9:39 AM VENEER PRESS OPERATOR Temperature 37 ??C (98.6 ??F) 01/24/2022 9:39 AM VENEER PRESS OPERATOR Respiratory Rate - - Oxygen Saturation - - Inhaled Oxygen Concentration - - Weight 91.8 kg (202 lb 4.8 oz) 01/24/2022 9:39 A M VENEER PRESS OPERATOR Height - - Body Mass Index 37 07/09/2018 10:05 AM CDT documented in this encounter Patient Instructions * Patient Instructions* Aliyah Varghese NP - 01/24/2022 9:00 AM VENEER PRESS OPERATOR [facility] COVID-19 Clinic Phone number: [phone] Clinic fax number: [phone] Please have your labs drawn. We will contact you with results. For your referral to PT, OT, ST, you should receive a phone call to schedule. If you do not get a phone call, please let us know. For a trial of medications to treat overactive mast cells, please start: Famotidine 20 mg twice daily (once in the morning, once in the evening) Cetirizine 10 mg twice daily (once in the morning, once in the evening) Complete an eye exam Disrupted Sleep: - reviewed sleep hygiene, resources provided - trial of melatonin XR, may increase up to 10 mg qhs For changes in smell: Recommend self-directed olfactory training using a smell kit and 20 min daily of intentionally smelling/focusing unique fragrances in 4 different categories (citrus, floral, resinous, spicy). Please use the website [employer] MR[employer].org where directions on smell training and creating a smell kit can be found Please ensure your safety by ensuring smoke and carbon monoxide alarms are working, review food expiration dates and have another smell food if there is a concern For your Hearing test, you should also receive a phone call to schedule. Mental Health Resources [facility] [place] Phone number: [phone] Website with online intake option Three locations in [place]: [facility], [facility], [facility] Service [facility] Doctoral Students supervised by PhD Psychologists Call for an appointment: [phone] [facility] Phone number: [phone] [facility] (therapy): [phone] Psychiatry Resources: [facility]: [phone] [facility] Behavioral Health: [phone] [facility]: [phone] Follow up 6 mos. You will receive electronic pre-visit questionnaires ahead of your visit. Please complete these at least 48 hours in advance of your visit. [employer] PT Resources https://world.physio/toolkit/cmfhb-np-cpx-7199-ewpzkidbqfx-ytgiqw-belgian Body Politic: https://www.Keypritic.com/ [employer] https://www.rcot.co.uk/kmc-idyhhz-ayll-sdcye-tlxebwb-kudnx-covid-19-0 Recommend taking precautions to avoid other viral infections - high-quality mask (ideally N95/KN95) in public indoor spaces - wash hands frequently - keep updated on vaccinations, including COVID vaccines (and boosters) and influenza vaccine ER PRESS OPERATOR documented in this encounter Progress Notes * Aliyah Varghese, GRACE - 01/24/2022 9:00 AM CST [facility] (CARE) from COVID Clinic Initial Visit Chief Complaint: Chief Complaint Patient presents with New Patient HPI: Oumou Middleton is a 46 y.o. White female presenting to for long COVID evaluation. Patient name: Oumou Middleton : 1975 PCP:Enma Jones MD [address] [facility] [address] [facility] [address] Race: White Sex at : female Gender identity: female Vaccine status COVID vaccine: Have not received COVID vaccine Acute COVID Illness Date of COVID illness Feb 2021 Number of COVID infections: 1 Healthcare history (if any) related to acute COVID19 Hospitalization history: I recovered at home Oxygen requirement: O2 home Treatment history: Zpaks Patient is % back to baseline function Educational background: Some College Social Support: Patient's Pete present 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 Type II DM COVID Illness Feb 2021 COVID Vaccines Unknown COVID Care Est 01/24/2022 New patient labs, PT, OT and ST ordered Tympanometry for Tinnitus, Mcas RX trial Patient presents today to establish care for Long Covid symptoms. States she feels like their is aband around her chest. Worse when she lays down, appetite has decreased has had skin rashes, GI issues. Loose stool and diarrhea. Unable to view recent test, had performed PFT's per patient report. CXR completed. Patient states she c/o dizziness, lightheadedness. Patient has an extensive history of PTSD. Will refer to the appropriate specialities. Questionnaires: DN4 Interview of the patient Does the pain have one or more of the following characteristics? Is the pain associated with one or more of the following symptoms in the same area? No flowsheet data found. No flowsheet data found. No flowsheet data found. No flowsheet data found. No flowsheet data found. No flowsheet data found. No flowsheet data found. No flowsheet data found. No flowsheet data found. No flowsheet data found. has a past medical history of Asthma, Depression, and Polycystic ovary syndrome. She has no past medical history of Breast cancer (CMS/HCC) (HCC), Colon cancer (CMS/HCC) (HCC), History of radiation therapy, Lobular carcinoma in situ of breast, Ovarian cancer (HCC), Smoking, or Thyroid cancer (CMS/HCC) (HCC). has a past surgical history that includes Laparoscopic Cholecystectomy; ADENOIDECTOMY; and Other surgical history (08/13/2017). Current Outpatient Medications: ARIPiprazole (ABILIFY) 5 mg tablet, take 1 tablet by oral route every day (Patient taking differently: 15 mg ), Disp: 0, Rfl: 0 cetirizine (ZyrTEC) 10 mg tablet, TK 1 T PO QD, Disp: , Rfl: 2 cholecalciferol (VITAMIN D-3) 50,000 unit tablet, Take 1 tablet (50,000 Units total) by mouth once a week, Disp: 4 tablet, Rfl: 1 clotrimazole 1 % cream, , Disp: , Rfl: cyclobenzaprine (FLEXERIL) 10 mg tablet, , Disp: , Rfl: DULoxetine DR (CYMBALTA) 30 mg capsule, , Disp: , Rfl: ergocalciferol (VITAMIN D) 50,000 unit capsule, TK 1 C PO WEEKLY, Disp: , Rfl: 0 insulin aspart (NovoLOG) 100 unit/mL injection, Inject under the skin., Disp: , Rfl: medroxyPROGESTERone (PROVERA) 10 mg tablet, Take 1 tablet (10 mg total) by mouth daily for 14 days,Disp: 14 tablet, Rfl: 0 metFORMIN (GLUCOPHAGE) 1,000 mg tablet, Take 1,000 mg by mouth., Disp: , Rfl: traZODone (DESYREL) 100 mg tablet, take 1 tablet by oral route 2 times every day after meals, Disp:0, Rfl: 0 Allergies Allergen Reactions Parada Anaphylaxis Iodine Other (See comments), Rash and Hives Reaction: Hives, Risperidone Other (See comments) Reaction: OTHER REACTION Exam: BP 119/74 (BP Location: Left arm, Patient Position: Sitting) Pulse 77 Temp 37 ??C (98.6 ??F) Wt 91.8 kg (202 lb 4.8 oz) BMI 37.00 kg/m?? Physical Exam Vitals reviewed. Constitutional: General: She is not in acute distress. Appearance: Normal appearance. She is normal weight. HENT: Head: Normocephalic. Eyes: General: No scleral icterus. Comments: Patient wears glasses Cardiovascular: Rate and Rhythm: Normal rate and regular rhythm. Pulses: Normal pulses. Heart sounds: S1 normal and S2 normal. Pulmonary: Effort: Pulmonary effort is normal. Breath sounds: Normal breath sounds. Genitourinary: Comments: Abnormal/ patient endorses signs consistent with rectal prolapse Musculoskeletal: Cervical back: No tenderness. Skin: General: Skin is warm and dry. Neurological: Mental Status: She is alert and oriented to person, place, and time. Psychiatric: Mood and Affect: Mood normal. Behavior: Behavior normal. Thought Content: Thought content normal. Judgment: Judgment normal. Data Review / Analysis: Unable to view outside records/ have requested to be sent Assessment & Plan: Post-Acute Sequelae of COVID-19 (PASC): no specific testing is currently available for PASC. Initial assessment includes evaluating for non-COVID conditions that could be contributing to symptoms andevidence of end-organ dysfunction. Assessment and management derived from CDC guidelines, consensus statements, and expert guidance. Fatigue, PESE: most common symptom in PASC. No current evidence of end-organ damage (e.g., heart failure, pulmonary fibrosis). - Lab evaluation for reversible etiologies: CBC with differential, BMP, LFTs, TSH, CRP, ESR, CK - [facility] behavioral recommendations: discussed importance of energy conservation, pacing, and rest. Reviewed need to avoid overexertion or activity that leads to increased fatigue or flares in symptoms(e.g., PEM/PESE). - Recommend activity tracking to identify triggers for PEM / PESE, particularly as flares can be delayed 12-48 hours after activity - Reviewed medications; no current medications likely to be contributing - Support and referrals: PT, OT, and NUCLEAR TECHNOLOGIST [facility] cognitive symptoms: symptoms include brain fog. Neurologic exam today with no focal deficit - laboratory evaluation for reversible factors: B12, thiamine, folate, homocysteine, Vit D, magnesium, LFTs, BMP, TSH, free T3, free T4 - Neuroimaging: deferred as no focal neurologic symptoms and symptoms not progressing - Reviewed [facility] behavioral recommendations of pacing and energy conservation, reiterated that energy management includes cognitive energy - New referrals: OT and NUCLEAR TECHNOLOGIST Shortness of breath or dyspnea: patient had mild-moderate illness without hypoxemia and with SpO2>92% in office today. Patients who did not require hospitalization commonly experience dyspnea of unclear cause. - evaluation with PFTs, including oxygen assessment and DLCO given persistent dyspnea not improving>8 weeks from acute COVID infection. 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: episodic symptoms including generalized flushing and othersymptoms in 2+ organ systems (skin/soft tissue, GI, CV, neuropsychiatric) - tryptase level - trial of antihistamines: cetirizine 10 mg po BID, famotidine 20 mg po BID - endorses constipation and diarrhea - consider referral to Allergy and Immunology Visual Changes: patient currently wearing her glasses - patient encouraged to complete exam 2.2 to Type II DM and Long Covid - patient agrees with plan of care ENT Symptoms Tinnitus: referral to audiology team for hearing evaluation and consideration for further workup and management -smell retraining exercises provided to patient - will reassess hearing for improvement at next visit 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 - will reach out to Colorectal team for either referral and or further guidance Mental Health PTSD: Recommend return to PCP to discuss treatment. Discussed likely benefit of psychotherapy and/or medications such as SSRI. Discussed mindfulness activities and offered resources. - patient states she will seek out a new psychiatrist - behavioral health resources provided to patient COVID-19 Vaccination Eligible for booster(s); recommended vaccination. Encouraged to factor into energy management with increased rest prior to and after vaccination Note and recommendations sent to patient's PCP, Enma Jones MD RTC 6 mos. Instructed to contact clinic with any concerns or questions. My total encounter time on 01/24/2022 was 65 minutes which was spent in the activities documented above. This includes time spent prior to the visit and after the visit in direct care of the patient.This time does not include time spent in any separately reportable services. Aliyah Varghese NP ER PRESS OPERATOR * Alana Gaytan LCSW - 01/24/2022 9:00 AM CST SW met with patient in the exam room. Introduced self and role. Passed on contact phone number and encouraged patient to call with questions/concerns, or if she is needing Community Resources or any Granite Chip Terrazzo Finisher assistance. Patient acknowledged. Patient had some questions about FLMA. 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 Suggested patient have her Computer Applications Engineer, or another specialist that she sees on a regular basis, to complete the request as the ID Clinic is not able to complete FLMA/Disability Claims.Explained that the ID clinic evaluates patients who have continued COVID symptoms/complications, and then any follow up care will be coordinated through their PCP. No other needs were identified or expressed at this time. SW will remain available to patient as needed. ER PRESS OPERATOR documented in this encounter Plan of Treatment Scheduled Orders Name Type Priority Associated Diagnoses Orde r Schedule Tympanometry Audiology Routine Tinnitus of both ears 1 Occurrences starting 01/28/2022 until 01/28/2023 documented as of this encounter Procedures Procedure Name Priority Date/Time Associated Diagnosis Comments EGFR Routine 01/24/2022 11:21 AM VENEER PRESS OPERATOR Long COVID DIFFERENTIAL AUTO Routine 01/24/2022 11: 21 AM VENEER PRESS OPERATOR Long COVID THYROID FUNCTION CASCADE Routine 01/24/2022 11:21 AM VENEER PRESS OPERATOR Long COVID HIV 1/2 ANTIBODY PLUS P24 ANTIGEN Routine 01/24/2022 11:21 AM VENEER PRESS OPERATOR Long COVID CBC WITH AUTO DIFFERENTIAL Routine 01/24/2022 11:21 AM VENEER PRESS OPERATOR Long COVID METHYLMALONIC ACID, SERUM Routine 01/24/2022 11:21 AM VENEER PRESS OPERATOR Long COVID EJ-العراقي VIRUS VCA, IGM Routine 01/24/2022 11:21 AM VENEER PRESS OPERATOR Long COVID EJ العراقي VIRUS VCA, IGG Routine 01/24/2022 11:21 AM VENEER PRESS OPERATOR Long COVID ERYTHROCYTE SEDIMENTATION RATE Routine 01/24/2022 11:21 AM VENEER PRESS OPERATOR Long COVID CRP, HIGH SENSITIVITY Routine 01/24/2022 11:21 AM VENEER PRESS OPERATOR Long COVID T3, FREE Routine 01/24/2022 11:21 AM VENEER PRESS OPERATOR Long COVID VITAMIN B1 Routine 01/24/2022 11:21 AM VENEER PRESS OPERATOR Long COVID MAGNESIUM Routine 01/24/2022 11:21 AM VENEER PRESS OPERATOR Long COVID FOLATE Routine 01/24/2022 11:21 AM VENEER PRESS OPERATOR Long COVID VITAMIN B12 Routine 01/24/2022 11:21 AM VENEER PRESS OPERATOR Long COVID CREATINE KINASE (CK), TOTAL Routine 01/24/2022 11:21 AM VENEER PRESS OPERATOR Long COVID HEPATIC FUNCTION PANEL Routine 11:21 AM VENEER PRESS OPERATOR Long COVID BASIC METABOLIC PANEL Routine 01/24/2022 11:21 AM VENEER PRESS OPERATOR Long COVID documented in this encounter Results * eGFR (01/24/2022 11:21 AM VENEER PRESS OPERATOR) [facility] eGFR >90 90 - 130 mL/min/1. 73 m2 [facility] Comment: Interpretive Data Reference Interval Normal ?>/= [...] reviewed 2020. Blood 01/24/2022 11:2 1 AM VENEER PRESS OPERATOR 01/24/2022 4:16 PM VENEER PRESS OPERATOR us Aliyah Varghese BUNK ASSEMBLER LAB BLOOD ORDERABLES Final Result Performing Organization Address City/State/[facility] Co de Phone Number [facility] [place] [address] * Differential, auto (01/24/2022 11:21 AM VENEER PRESS OPERATOR) Neutrophil abs 4.2 1.7 - 6.5 K/cumm [facility] Imm gran abs 0.0 0.0 - 0.1 K/cumm [facility] Lymphocyte abs 1.8 0.8 - 3.3 K/cumm [facility] Monocyte abs 0.3 0.2 - 0.8 K/cumm [facility] Eosinophil abs 0.4 0.0 - 0.5 K/cumm [facility] Basophil abs 0.1 0.0 - 0.1 K/cumm [facility] Neutrophil pct 62.6 % [facility] Comment: Interpretive Data Percent cell count reference ranges are not reported, since discordance with absolute values may lead to misinterpretation of CBC data. Current Interpretive Data was last revised on 2017. Imm gran pct 0.3 % [facility] Comment: Interpretive Data Percent cell count reference ranges are not reported, since discordance with absolute values may lead to misinterpretation of CBC data. Current Interpretive Data was last revised on 2017. Lymphocyte pct 26.5 % [facility] Comment: Interpretive Data Percent cell count reference ranges are not reported, since discordance with absolute values may lead to misinterpretation of CBC data. Current Interpretive Data was last revised on 2017. Monocyte pct 4.5 % [facility] Comment: Interpretive Data Percent cell count reference ranges are not reported, since discordance with absolute values may lead to misinterpretation of CBC data. Current Interpretive Data was last revised on 2017. Eosinophil pct 5.2 % [facility] Comment: Interpretive Data Percent cell count reference ranges are not reported, since discordance with absolute values may lead to misinterpretation of CBC data. Current Interpretive Data was last revised on 2017. Basophil pct 0.9 % [facility] Comment: Interpretive Data Percent cell count reference ranges are not reported, since discordance with absolute values may lead to misinterpretation of CBC data. Current Interpretive Data was last revised on 2017. Blood 01/24/2022 11:2 1 AM VENEER PRESS OPERATOR 01/24/2022 4:00 PM VENEER PRESS OPERATOR us Aliyah Varghese NP LAB BLOOD ORDERABLES Final Result [facility] [place] [address] * HIV 1/2 Antibody plus p24 Antigen Blood (01/24/2022 11:21 AM VENEER PRESS OPERATOR) HIV 1/2 ab + p24 ag Nonreactive Nonreactive [facility] Comment:Nonreactive for HIV- 1 antigen and HIV-1/HIV-2 antibodies. No laboratory evidence of HIV infection. If acute HIV infection is suspected, consider testing for HIV-1 RNA. Current interpretive data was last revised on 21. Blood 01/24/2022 11:2 1 AM VENEER PRESS OPERATOR 01/24/2022 4:00 PM VENEER PRESS OPERATOR Aliyah Varghese NP LAB MICROBIOLOGY - GE NERAL ORDERABLES Final Result Performing Organization Address [facility] Co de Phone Number [facility] [place] [address] * Ej-العراقي virus VCA, IgM (01/24/2022 11:21 AM VENEER PRESS OPERATOR) EBV VCA IgM Negative Negative [facility] Comment: Interpretive Data Results ? Interpretation Negative ?No detectable IgM antibody to EBV-VCA. ?A negative result indicates no current ?infection with EBV. If clinical suspicion ?of acute EBV infection is present, testing ?should be repeated after one week. Equivocal ? If the sample is equivocal, recommend ?repeating the test with a second sample ?within one week. Positive ?A positive test result indicates a current ?or reactivated infection with EBV. Interpretive data revised 05/21/2016. Blood 01/24/2022 11:2 1 AM VENEER PRESS OPERATOR 01/24/2022 4:00 PM VENEER PRESS OPERATOR Aliyah Varghese NP LAB BLOOD ORDERABLES Final Result Performing Organization Address [facility] Co de Phone Number [facility] [place] [address] * (ABNORMAL) Ej العراقي virus VCA, IgG (01/24/2022 11:21 AM VENEER PRESS OPERATOR) [facility] EBV VCA IgG Positive( A) Negative [facility] Comment: Interpretive Data Results ? Interpretation Negative ?No detectable antibody to VCA IgG ?antibody. Equivocal ? Uncertain immune status, suggest ?sending additional sample. Positive ?Indicates the presence of antibody; ?90% of the adult population will ?have been infected with EBV sometime ?in the past. Interpretive data revised 05/21/2016. Blood 01/24/2022 11:2 1 AM VENEER PRESS OPERATOR 01/24/2022 4:00 PM VENEER PRESS OPERATOR us Aliyah Varghese BUNK ASSEMBLER LAB BLOOD ORDERABLES Final Result Performing Organization Address [facility] [place] [address] * Magnesium (01/24/2022 11:21 AM VENEER PRESS OPERATOR) [facility] Magnesium 2.0 1.4 - 2.5 mg/dL [facility] Blood 01/24/2022 11:2 1 AM VENEER PRESS OPERATOR 01/24/2022 4:00 PM VENEER PRESS OPERATOR Aliyah Varghese BUNK ASSEMBLER LAB BLOOD ORDERABLES Final Result Performing Organization Address [facility] [place] [address] * Vitamin B1 (01/24/2022 11:21 AM VENEER PRESS OPERATOR) Thiamine (Vit B1) 129 70 - 180 nmol/L [facility] Comment: ADDITIONAL INFORMATION This test was developed and its performance characteristics determined by [facility] in a manner consistent with CLIA requirements. This test has not been cleared or approved by the U.S. Food and Drug Administration. Test Performed by: [facility] [address] [place] [address] Machine Stonecutter: Av Pink M.D. Ph.D.; CLIA# [id number] Blood 01/24/2022 11:2 1 AM VENEER PRESS OPERATOR 01/24/2022 4:58 PM VENEER PRESS OPERATOR Aliyah Varghese NP LAB BLOOD ORDERABLES Final Result Performing Organization Address City/[facility] Co de Phone Number [facility] [place] [address] * Folate (01/24/2022 11:21 AM VENEER PRESS OPERATOR) [facility] Folic acid 8.2 >=5.0 ng/mL [facility] Blood 01/24/2022 11:2 1 AM VENEER PRESS OPERATOR 01/24/2022 4:00 PM VENEER PRESS OPERATOR Aliyah Varghese NP LAB BLOOD ORDERABLES Final Result Performing Organization Address [facility] de Phone Number [facility] [place] [address] * Methylmalonic acid, serum (01/24/2022 11:21 AM VENEER PRESS OPERATOR) [facility] MMA 0.11 <=0.40 nmol/mL [facility] Comment: ADDITIONAL INFORMATION This test was developed and its performance characteristics determined by [facility] in a manner consistent with CLIA requirements. This test has not been cleared or approved by the U.S. Food and Drug Administration. Test Performed by: [facility] [address] [address] Machine Stonecutter: Av Pink M.D. Ph.D.; CLIA# [id number] Blood 01/24/2022 11:2 1 AM VENEER PRESS OPERATOR 01/24/2022 5:04 PM VENEER PRESS OPERATOR Aliyah Varghese NP LAB BLOOD ORDERABLES Final Result Performing Organization Address City/[facility]/[place] [address] * Vitamin B12 (01/24/2022 11:21 AM VENEER PRESS OPERATOR) Vitamin B12 564 230 - 1,250 pg/mL [facility] Blood 01/24/2022 11:2 1 AM VENEER PRESS OPERATOR 01/24/2022 4:00 PM VENEER PRESS OPERATOR Aliyah Varghese NP LAB BLOOD ORDERABLES Final Result Performing Organization Address [facility] Co de Phone Number [facility] [place] [address] * Creatine kinase (CK), total (01/24/2022 11:21 AM VENEER PRESS OPERATOR) CK 58 30 - 200 Units/L [facility] Blood 01/24/2022 11:2 1 AM VENEER PRESS OPERATOR 01/24/2022 4:00 PM VENEER PRESS OPERATOR Aliyah Varghese NP LAB BLOOD ORDERABLES Final Result Performing Organization Address City/[facility] [place] [address] * (ABNORMAL) Erythrocyte sedimentation rate (01/24/2022 11:21 AM VENEER PRESS OPERATOR) [facility] Erythrocyte sedimentation rate 25(H) 1 - 20 mm/hr [facility] Blood 01/24/2022 11:2 1 AM VENEER PRESS OPERATOR 01/24/2022 4:00 PM VENEER PRESS OPERATOR Aliyah Varghese NP LAB BLOOD ORDERABLES Final Result Performing Organization Address City/[facility] Co de Phone Number [facility] [place] [address] * CRP (cardiac risk) (01/24/2022 11:21 AM VENEER PRESS OPERATOR) [facility] hsCRP 3.38 mg/L [facility] Comment: Interpretive data Adult only - values greater than or equal to 10 mg/L are consistent with infection or inflammation. ?? Individuals with evidence of active infection, systemic inflammatory processes, or trauma should not be tested until these conditions have abated. When using HS CRP to assess cardiovascular risk, two measurements should be taken, two weeks apart (averaging results). ?? The CDC/AHA recommended the following HS CRP cut off points (tertiles) for CVD assessment. ? Adult low risk ? <1.0 mg/L Average risk ??1.0 - 3.0 mg/L High Risk ?>3.0 mg/L Current interpretive data was last revised on 2017. Blood 01/24/2022 11:2 1 AM VENEER PRESS OPERATOR 01/24/2022 4:00 PM VENEER PRESS OPERATOR Aliyah Varghese NP LAB BLOOD ORDERABLES Final Result Performing Organization Address City/[facility] Co de Phone Number [facility] [place] [address] * T3, free (01/24/2022 11:21 AM VENEER PRESS OPERATOR) [facility] Free T3 3.1 2.0 - 4.4 pg/mL [facility] Blood 01/24/2022 11:2 1 AM VENEER PRESS OPERATOR 01/24/2022 4:00 PM VENEER PRESS OPERATOR Aliyah Varghese BUNK ASSEMBLER LAB BLOOD ORDERABLES Final Result Performing Organization Address City/[facility] Co de Phone Number [facility] [place] [address] * TSH reflex to free T4 (01/24/2022 11:21 AM VENEER PRESS OPERATOR) Pathologist [facility] TSH 0.42 0.30 - 4.20 mcIUnit/mL [facility] Blood 01/24/2022 11:2 1 AM VENEER PRESS OPERATOR 01/24/2022 4:00 PM VENEER PRESS OPERATOR Aliyah Varghese NP LAB BLOOD ORDERABLES Final Result Performing Organization Address [facility] de Phone Number [facility] [place] [address] * (ABNORMAL) Hepatic function panel (01/24/2022 11:21 AM VENEER PRESS OPERATOR) Bilirubin, total 0.8 0.1 - 1.2 mg/dL [facility] Bilirubin, direct <0.2 0.1 - 0.3 mg/dL [facility] Protein, pl 7.7 6.5 - 8.5 g/dL [facility] Albumin 4.5 3.5 - 5.0 g/dL [facility] Alk phos 80 40 - 130 Units/L [facility] ALT 49(H) 7 - 45 Units/L [facility] AST 32 10 - 45 Units/L [facility] Blood 01/24/2022 11:2 1 AM VENEER PRESS OPERATOR 01/24/2022 4:00 PM VENEER PRESS OPERATOR Aliyah Varghese BUNK ASSEMBLER LAB BLOOD ORDERABLES Final Result Performing Organization Address City/[facility] Co de Phone Number [facility] [place] [address] * (ABNORMAL) Basic metabolic panel (01/24/2022 11:21 AM VENEER PRESS OPERATOR) [facility] Sodium 142 135 - 145 mmol/L [facility] Potassium, pl 3.7 3.3 - 4.9 mmol/L [facility] Chloride 105 97 - 110 mmol/L [facility] CO2 24 22 - 32 mmol/L [facility] Anion gap 13 2 - 15 mmol/L [facility] BUN 8 8 - 25 mg/dL [facility] Creatinine 0.56(L) 0.60 - 1.10 mg/dL [facility] Glucose 337(H) 70 - 199 mg/dL [facility] Comment: Interpretive Data Fasting glucose >/= 126 mg/dl is diagnostic for diabetes. ?? Fasting is defined as no caloric intake for at least 8 hours. Fasting glucose between 100 mg/dl to 125 mg/dl is diagnostic of prediabetes. In a patient with classic symptoms of hyperglycemia or hyperglycemic crisis, a random glucose >/= 200 mg/dl is diagnostic for diabetes. In the absence of unequivocal hyperglycemia, results should be confirmed by repeat testing. The classification and Diagnosis of Diabetes Diabetes Care 2017;40 (Suppl. 1):S11. Current interpretive data was last revised 2017. Calcium 9.6 8.5 - 10.3 mg/dL [facility] Blood 01/24/2022 11:2 1 AM VENEER PRESS OPERATOR 01/24/2022 4:00 PM VENEER PRESS OPERATOR Aliyah Varghese NP LAB BLOOD ORDERABLES Final Result [facility] [place] [address] * CBC with auto differential (01/24/2022 11:21 AM VENEER PRESS OPERATOR) [facility] WBC 6.7 3.8 - 9.9 K/cumm [facility] Hgb 13.8 11.9 - 15.5 g/dL [facility] Hct 42.0 35.6 - 45.5 % [facility] Plt 314 150 - 400 K/cumm [facility] MPV 11.2 9.1 - 12.3 fL [facility] RBC 5.07 3.90 - 5.20 M/cumm [facility] MCV 82.8 81.3 - 96.4 fL [facility] MCH 27.2 27.1 - 33.3 pg [facility] MCHC 32.9 32.3 - 35.7 g/dL [facility] RDW CV 13.5 11.1 - 14.9 % [facility] RDW SD 40.4 35.7 - 48.1 fL [facility] NRBC abs 0.00 0.00 - 0.01 K/cumm [facility] Blood 01/24/2022 11:2 1 AM VENEER PRESS OPERATOR 01/24/2022 4:00 PM VENEER PRESS OPERATOR us Aliyah Varghese BUNK ASSEMBLER LAB BLOOD ORDERABLES Final Result Performing Organization Address City/State/[facility] Co de Phone Number [facility] [place] [address] documented in this encounter Visit Diagnoses Diagnosis 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 COVID-19 long hauler manifesting chronic fatigue Posttraumatic stress disorder Tinnitus of both ears Unspecified tinnitus 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
--- OUTSIDE RECORDS SUMMARY | 2024-02-12 03:38 | XMS_ITS | Encounter Summary ---
Author Organization [facility] Address [address] [place] [address] Phone Care Team Providers Care Lacing Operator Name Role Phone Enma Jones MD Primary Care Provider [phone] Reason for Referral * MRI/CAT/PET Scan (Routine) - Closed Specialty Diagnoses / Procedures Referred By Shmuel angel Referred To Contact Radiology Diagnoses Hyperacusis of both ears Procedures CT Temporal Bones WO Contrast Melanie Mendez NP [address] [place] [address] Phone: tel: fax: [address] [address] Referral ID Status Reason Start Date Expiration Date Visits Re quested Visits Authorized [id number] Closed 03/14/2022 04/13/2022 1 1 RTAINMENT MANAGER * Consultation (Routine) - Denied Specialty Diagnoses / Procedures Referred By Contteri t Referred To Contact Otolaryngology Diagnoses Hearing loss, unspecified hearing loss type, unspecified laterality Enma Jones MD [address] [place] [address] Phone: tel: fax: [facility] (All Locations) Referral ID Status Reason Start Date Expiration Date V isits Requested Visits Authorized [id number] Denied Specialty Services Required 02/27/2022 03/29/2023 99 0 Question Answer Please select the performing region: [facility] (All Locations) [167] # of visits: 1 RTAINMENT MANAGER Reason for Visit * Reason Comments Hearing Loss Tinnitus * Consultation (Routine) - Denied Specialty Diagnoses / Procedures Referred By Contac t Referred To Contact Otolaryngology Diagnoses Hearing loss, unspecified hearing loss type, unspecified laterality Enma Jones MD [address] [place] [address] Phone: tel: fax: [facility] (All Locations) Referral ID Status Reason Start Date Expiration Date V isits Requested Visits Authorized [id number] Denied Specialty Services Required 02/27/2022 03/29/2023 99 0 Encounter Details Date Type Department Care Team (Late st Contact Info) Description 03/01/2022 2:00 PM ENTERTAINMENT MANAGER Office Visit [facility] ENT [address] [facility] [address] [place] [address] Melanie Mendez NP [address] [place] [address] Hyperacusis of both ears (Primary Dx); Hearing loss, unspecified hearing loss type, unspecified laterality; Dysfunction of both eustachian tubes; Allergic rhinitis, unspecified seasonality, unspecified trigger; TMJ arthralgia Social History Tobacco Use Types Packs/Day Years [...] on file Legal Sex Female 1:16 PM ENTERTAINMENT MANAGER Gender Identity Not on file Sexual Orientation Not on file documented as of this encounter Ordered Prescriptions Prescription Sig Dispense Quantity Refills Last Filled Start Date End Date triamcinolone (NASACORT) 55 mcg nasal inhaler Administer 2 sprays into each nostril daily 1 g 11 03/01/2022 documented in this encounter Progress Notes * Melanie Mendez, LASER BEAM CUTTER - 03/01/2022 2:00 PM CST Reason for visit: Ms. Middleton is seen for complaint of tinnitus, otalgia. Chief Complaints: (H93.233) Hyperacusis of both ears (primary encounter diagnosis) Plan: CT Temporal Bones WO Contrast (H91.90) Hearing loss, unspecified hearing loss type, unspecified laterality Plan: Ambulatory referral to ENT, Ambulatory referral to ENT HPI: Oumou Middleton is a 46 y.o. female who presents today for evaluation of ears and nose. Previously lived in [place]. Struggled with allergies. After moving here in early 2002 allergy symptomssubsided. Had covid in February last years. Since that time hearing fluctuates. Popping of ears. Itchy eyes Diminished nasal breathing. Post nasal drainage. Mucous in throat causes voice to fluctuate.Ears very sensitive to sound. Hears self breathing, talking loudly. Fluctuating tinnitus left greater than right. Has a history of tmj jaw joint issues. Review of Systems: As above and on the new patients intake form, otherwise the balance of 11 systems was negative. Vital Signs: There were no vitals taken for this visit. Exam: Ears: Right external normal, auditory canal normal, tympanic membrane intact, middle ear space aerated. Left external ear normal, auditory canalnormal, tympanic membrane intact, middle space aerated. Nose: Inflamed, congested mucosa, clear rhinnorhea, right deviation of nasal septum, hypertrophy ofinferior nasal turbinates. Mouth: Uvula midline, pink mucosa, no lesions. Neck: no masses. Audiogram> Bilateral normal hearing. High frequency hyperacusis. Reviewed with patient and , ASSESSMENT (H93.233) Hyperacusis of both ears (primary encounter diagnosis) Plan: CT Temporal Bones WO Contrast (H91.90) Hearing loss, unspecified hearing loss type, unspecified laterality Plan: Ambulatory referral to ENT, Ambulatory referral to ENT PLAN: Ct temporal bones, will call with results Daily nasal saline Nasacort RTAINMENT MANAGER documented in this encounter Plan of Treatment Scheduled Referrals Name Type Priority Associated Diagnoses Orde r Schedule Ambulatory referral to ENT Outpatient Referral Routine Hearing loss, unspecified hearing loss type, unspecified laterality Expected: 03/13/2022 (Approximate), Expires: 02/27/2023 documented as of this encounter Results * CT Temporal Bones WO Contrast (03/14/2022 3:15 PM ENTERTAINMENT MANAGER) Anatomical Region Laterality Modality Head and Neck N/A Computed Tomogra phy 03/14/2022 3:42 PM ENTERTAINMENT MANAGER Impressions 03/14/2022 4:07 PM ENTERTAINMENT MANAGER No definite CT findings to explain the patient's symptoms. Dictated by: Josue Rivera MD The radiology attending physician has personally reviewed this study, and had reviewed and/or edited this written report and agrees with it. Electronically signed by: Amado Vicente M.D. Narrative 03/14/2022 4:07 PM ENTERTAINMENT MANAGER EXAMINATION: CT of the temporal bones without contrast HISTORY: Hyperacusis. TECHNIQUE: CT of the temporal bones was performed according to standard protocol without intravenous contrast. Contrast Information: 0 mL Optiray-350 COMPARISON: None. FINDINGS: The limited examination of the brain is normal. The scalp is normal. The squamosal portions of the temporal bones are normal. Imaged pinnae are normal. RIGHT TEMPORAL BONE: There are high riding right jugular bulb. ??There is focal thinning or potentially focal defect of the sigmoid plate/notch of the proximal sigmoid sinus (3:110). The external auditory canal, including cartilaginous and bony portions, is normal. There is no fluid or mass in the middle ear cavities. The middle ear ossicles are intact, and there are no erosions. The facial nerves, including labyrinthine, geniculate, horizontal, and descending segments, are normal. The bony labyrinths including the cochlea, vestibule, and semicircular canals bilaterally are normal without evidence of dehiscence or congenital malformation. The bone is normal without evidence of otosclerosis. The internal auditory canals are normal. The vestibular aqueducts are normal. The cochlear aqueducts are normal. The mastoids are well developed without evidence of fluid or fracture. LEFT TEMPORAL BONE: The external auditory canal, including cartilaginous and bony portions, is normal. There is no fluid or mass in the middle ear cavities. The middle ear ossicles are intact, and there are no erosions. The facial nerves, including labyrinthine, geniculate, horizontal, and descending segments, are normal. The bony labyrinths including the cochlea, vestibule, and semicircular canals bilaterally are normal without evidence of dehiscence or congenital malformation. The bone is normal without evidence of otosclerosis. The internal auditory canals are normal. The vestibular aqueducts are normal. The cochlear aqueducts are normal. The mastoids are well developed without evidence of fluid or fracture. Procedure Note Amado Vicente MD PhD - 03/14/2022 EXAMINATION: CT of the temporal bones without contrast HISTORY: Hyperacusis. TECHNIQUE: CT of the temporal bones was performed according to standard protocol without intravenous contrast. Contrast Information: 0 mL Optiray-350 COMPARISON: None. FINDINGS: The limited examination of the brain is normal. The scalp is normal. The squamosal portions of the temporal bones are normal. Imaged pinnae are normal. RIGHT TEMPORAL BONE: There are high riding right jugular bulb. There is focal thinning or potentially focal defect of the sigmoid plate/notch of the proximal sigmoid sinus (3:110). The external auditory canal, including cartilaginous and bony portions, is normal. There is no fluid or mass in the middle ear cavities. The middle ear ossicles are intact, and there are no erosions. The facial nerves, including labyrinthine, geniculate, horizontal, and descending segments, are normal. The bony labyrinths including the cochlea, vestibule, and semicircular canals bilaterally are normal without evidence of dehiscence or congenital malformation. The bone is normal without evidence of otosclerosis. The internal auditory canals are normal. The vestibular aqueducts are normal. The cochlear aqueducts are normal. The mastoids are well developed without evidence of fluid or fracture. LEFT TEMPORAL BONE: The external auditory canal, including cartilaginous and bony portions, is normal. There is no fluid or mass in the middle ear cavities. The middle ear ossicles are intact, and there are no erosions. The facial nerves, including labyrinthine, geniculate, horizontal, and descending segments, are normal. The bony labyrinths including the cochlea, vestibule, and semicircular canals bilaterally are normal without evidence of dehiscence or congenital malformation. The bone is normal without evidence of otosclerosis. The internal auditory canals are normal. The vestibular aqueducts are normal. The cochlear aqueducts are normal. The mastoids are well developed without evidence of fluid or fracture. IMPRESSION: No definite CT findings to explain the patient's symptoms. Dictated by: Josue Rivera MD The radiology attending physician has personally reviewed this study, and had reviewed and/or edited this written report and agrees with it. Electronically signed by: Amado Vicente M.D. 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 documented in this encounter Discontinued Medications Medication Sig Discontinue Reason Start Date End Da te cyclobenzaprine (FLEXERIL) 10 mg tablet 08/08/2016 03/01/[address] (CYMBALTA) 30 mg capsule 08/10/2016 03/01/2022 traZODone (DESYREL) 100 mg tablet take 1 tablet by oral route 2 times every day after meals 09/30/2013 03/01/2022 medroxyPROGESTERone (PROVERA) 10 mg tablet Take 1 tablet (10 mg total) by mouth daily for 14 days 07/14/2018 03/01/2022 ergocalciferol (VITAMIN D) 50,000 unit capsule TK 1 C PO WEEKLY 09/18/2016 03/01/19 23 clotrimazole 1 % cream 10/30/2016 cetirizine (ZyrTEC) 10 mg tablet TK 1 T PO QD 10/30/2016 03/01/2022 cholecalciferol (VITAMIN D-3) 50,000 unit tablet Take 1 tablet (50,000 Units total) by mouth once a week 06/19/2018 03/01/2022 insulin aspart (NovoLOG) 100 unit/mL injection Inject under the skin. 03/01/2022 documented as of this encounter Historical Medications * This list may reflect changes made after this encounter. ALPRAZolam (XANAX) 0.5 mg tablet Take 0.5 mg by mouth nightly as needed for anxiety added in this encounter Care Teams Lacing Operator Relationship Specialty Start Date End Date Enma Jones MD PCP - General 10/15/18 04/18/22 Alana Gaytan [facility] [address] [place] [address] Special Agent Secret Service Infectious Diseases 01/24/22 documented as of this encounter
--- OUTSIDE RECORDS SUMMARY | 2024-02-12 03:38 | XMS_ITS | Encounter Summary ---
Author Organization [facility] Address [address] [place] [address] Phone Care Team Providers Care Assistant Media Buyer Name Role Phone Enma Jones MD Primary Care Provider [phone] Encounter Details Date Type Department Care Team (Late st Contact Info) Description 03/21/2022 Documentation [facility] ENT [address] [facility] [address] [place] [address] Melanie Mendez NP [address] [place] [address] Social History Tobacco Use Types Packs/Day Years [...] on file Legal Sex Female 1:16 PM BUSINESS OBJECTS REPORT DEVELOPER Gender Identity Not on file Sexual Orientation Not on file documented as of this encounter Progress [facility] * Melanie Mendez NP - 03/21/2022 12:[address] temporal bone result normal mention of high riding jugular bulb, reviewed with Dr. Mendieta , normal. Left message for patient. NESS OBJECTS REPORT DEVELOPER documented in this encounter Plan of Treatment Not on file documented as of this encounter Visit Diagnoses Not on filedocumented in this encounter Care Teams Assistant Media Buyer Relationship Specialty Start Date End Date Enma Jones MD PCP - General 10/15/18 04/18/22 Alana Gaytan, [facility] [address] [place] [address] High Lead Yarder Infectious Diseases 01/24/22 documented as of this encounter
--- OUTSIDE RECORDS SUMMARY | 2024-02-12 03:38 | XMS_ITS | Encounter Summary ---
Author Organization [facility] Address [address] [place] [address] Phone Care Team Providers Care Structural Worker Name Role Phone Enma Jones MD Primary Care Provider + [phone] Wilmer Carnes MD Primary Care Provider [phone] Encounter Details Date Type Department Care Team (Late st Contact Info) Description 03/28/2022 Documentation [facility] [address] [facility] Office Building [address] [place] [address] Melanie Mendez NP [address] [place] [address] Social History Tobacco Use Types [...] on file 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
--- OUTSIDE RECORDS SUMMARY | 2024-02-12 03:38 | XMS_ITS | Encounter Summary ---
Author Organization [facility] Healthcare Address [address] [place] [address] Care Team Providers Care Cold Saw Operator Name Role Phone Enma Jones MD Primary Care Provider [phone] Reason for Referral * Diagnostic Imaging (Routine) - Closed Specialty Diagnoses / Procedures Referred By Contac t Referred To Contact Diagnoses Ganglion cyst of foot Procedures XR Foot Left 3 or More Views Krys Ward NP [address] [address] Phone: tel: fax: [address] [address] Referral ID Status Reason Start Date Expiration Date Visits Re quested Visits Authorized [id number] Closed 12/31/2018 07/11/2020 1 1 TOW OPERATOR Reason for Visit * Diagnostic Imaging (Routine) - Closed Specialty Diagnoses / Procedures Referred By Contac t Referred To Contact Diagnoses Ganglion cyst of foot Procedures XR Foot Left 3 or More Views Krys Ward NP [address] [address] Phone: tel: fax: [address] [address] Referral ID Status Reason Start Date Expiration Date Visits Re quested Visits Authorized [id number] Closed 12/31/2018 07/11/2020 1 1 Encounter Details Date Type Department Care Team (Latest Contact Info) Description 01/01/2019 12:14 PM SKI TOW OPERATOR - 01/01/2019 11:59 PM SKI TOW OPERATOR Hospital Encounter [facility] [address] [place] [address] Nida Worrell MD [address] [facility] [address] [place] [address] Krys Ward, ERCO MACHINE OPERATOR [address] [address] Ganglion cyst of foot Discharge Disposition: Discharge to home or self [...] on file Legal Sex Female 1:16 PM SKI TOW OPERATOR Gender Identity Not on file Sexual Orientation Not on file documented as of this encounter Medications at Time of Discharge ARIPiprazole (ABILIFY) 5 mg tablet take 1 tablet by oral route every day 0 0 09/30/2013 metFORMIN (GLUCOPHAGE) 1,000 mg tablet Take 1,000 mg by mouth. nystatin cream Apply topically 2 (two) times a day 30 g 1 06/08/2018 0 cetirizine (ZyrTEC) 10 mg tablet TK 1 T PO QD 2 10/30/2016 3 cholecalciferol (VITAMIN D-3) 50,000 unit tablet Take 1 tablet (50,000 Units total) by mouth once a week 4 tablet 1 06/19/2018 3 clotrimazole 1 % cream 10/30/2016 3 cyclobenzaprine (FLEXERIL) 10 mg tablet 08/08/[address] (CYMBALTA) 30 mg capsule 08/10/2016 3 ergocalciferol (VITAMIN D) 50,000 unit capsule TK 1 C PO WEEKLY 0 09/18/2016 3 insulin aspart (NovoLOG) 100 unit/mL injection Inject under the skin. 3 medroxyPROGESTER one (PROVERA) 10 mg tablet Take 1 tablet (10 mg total) by mouth daily for 14 days 14 tablet 07/14/2018 3 traZODone (DESYREL) 100 mg tablet take 1 tablet by oral route 2 times every day after meals 0 0 09/30/2013 3 documented as of this encounter Discharge Disposition Disposition Code Departure Means Destination Discharge to home or self care documented in this encounter Plan of Treatment Not on file documented as of this encounter Procedures Procedure Name Priority Date/Time Associated Diagnosis Comments XR FOOT LEFT 3 OR MORE VIEWS Schedule Routine, Read Routine (OP Routine) 01/01/2019 12:20 PM SKI TOW OPERATOR Ganglion cyst of foot documented in this encounter Results * XR Foot Left 3 or More Views (01/01/2019 12:20 PM SKI TOW OPERATOR) Anatomical Region Laterality Modality Lower Extremities, Foot Left Computed Radiography 01/01/2019 2:53 PM SKI TOW OPERATOR Impressions 01/01/2019 2:55 PM SKI TOW OPERATOR 1. No discretely identifiable radiographic abnormality corresponding to the clinical finding described above. 2. ??Minimal 1st MTP joint degenerative change. 3. ??Small calcaneal spur. Electronically signed by: Jhony Todd Jr., M.D. Narrative 01/01/2019 2:55 PM SKI TOW OPERATOR XR FOOT LEFT 3 OR MORE VIEWS HISTORY: Ganglion, unspecified ankle and foot. Hard, tender lump on bottom of left foot just inferior to the 2nd toe. ??Patient has noticed that for 3 weeks. ??No known injury. COMPARISON: None available. VIEWS: AP, oblique and lateral views FINDINGS: No fracture, dislocation or bone destruction is seen. There is minimal 1st MTP joint degenerative change. ??Small plantar calcaneal spur is noted. ??No soft tissue calcification, mass or foreign body is identified. ?? Procedure Note Jhony Todd Jr., MD - 01/01/2019 XR FOOT LEFT 3 OR MORE VIEWS HISTORY: Ganglion, unspecified ankle and foot. Hard, tender lump on bottom of left foot just inferior to the 2nd toe. Patient has noticed that for 3 weeks. No known injury. COMPARISON: None available. VIEWS: AP, oblique and lateral views FINDINGS: No fracture, dislocation or bone destruction is seen. There is minimal 1st MTP joint degenerative change. Small plantar calcaneal spur is noted. No soft tissue calcification, mass or foreign body is identified. IMPRESSION: 1. No discretely identifiable radiographic abnormality corresponding to the clinical finding described above. 2. Minimal 1st MTP joint degenerative change. 3. Small calcaneal spur. Electronically signed by: Jhony Todd Jr., M.D. Krys Ward ERCO MACHINE OPERATOR IMG XR PROCEDURES Final Resu lt documented in this encounter Visit Diagnoses Diagnosis Ganglion cyst of foot documented in this encounter Care Teams Cold Saw Operator Relationship Specialty Start Date End Date Enma Jones MD PCP - General 10/15/18 04/18/22 documented as of this encounter
--- OUTSIDE RECORDS SUMMARY | 2024-02-12 03:38 | XMS_ITS | Encounter Summary ---
Author Organization [facility] Address [address] [place] [address] Phone Care Team Providers Care Tobacco Dipper Name Role Phone Wilmer Carnes MD Primary Care Provider [phone] Encounter Details Date Type Department Care Team (Late st Contact Info) Description 04/22/2022 Documentation [facility]) - [facility] E[facility] [address] [facility] 2nd Floor, [address] [place] [address] Melanie Mendez NP [address] [place], [place] [id number] Social History Tobacco Use Types Packs/Day Years [...] on file Legal Sex Female 1:16 PM LEADLIGHTER Gender Identity Not on file Sexual Orientation Not on file documented as of this encounter Progress Notes * Clarice Geronimo - 04/22/2022 4:45 PM CST Left message for patient at [phone] letting her know we are NOT contracted with [facility] and referred the patient back to her plan's network for a surgeon that can address the deviated septum issue. LIGHTER documented in this encounter Plan of Treatment Not on file documented as of this encounter Visit Diagnoses Not on filedocumented in this encounter Care Teams Tobacco Dipper Relationship Specialty Start Date End Date Wilmer Carnes MD PCP - General Family Medicine 04/19/22 Alana Gaytan, [address] [address] Technical Communicator Infectious Diseases 01/24/22 documented as of this encounter
--- OUTSIDE RECORDS SUMMARY | 2024-02-12 03:38 | XMS_ITS | Encounter Summary ---
Author Organization [facility] Address [address] [place] [address] Phone Care Team Providers Care Tower Observer Name Role Phone Enma Jones MD Primary Care Provider [phone] Reason for Visit * Reason Comments Otitis Media Seen at urgent care 2 weeks ago for OM, still has ear pain both sides * Consultation (Routine) - Denied Specialty Diagnoses / Procedures Referred By Contteri t Referred To Contact Otolaryngology Diagnoses Hearing loss, unspecified hearing loss type, unspecified laterality Enma Jones MD [address] [address] [place] [address] Phone: tel: fax: [facility] (All Locations) Referral ID Status Reason Start Date Expiration Date V isits Requested Visits Authorized [id number] Denied Specialty Services Required 02/27/2022 03/29/2023 99 0 Encounter Details Date Type Department Care Team (Late st Contact Info) Description 03/28/2022 11:40 AM DRUM HANDLER Office Visit [facility] ENT [address] [facility] [address] Office Building [address] [place] [address] Melanie Mendez NP [address] [place] [address] Dysfunction of both eustachian tubes (Primary Dx); Acute cough; Left chronic serous otitis media; Myringitis Social History Tobacco Use Types Packs/Day Years [...] on file Legal Sex Female 1:16 PM DRUM HANDLER Gender Identity Not on file Sexual Orientation Not on file documented as of this encounter Ordered Prescriptions Prescription Sig Dispense Quantity Refills Last Filled Start Date End Date fluticasone propionate (FLONASE) 50 mcg/actuation nasal spray Administer 2 sprays into each nostril daily 1 each 2 03/28/2022 ciprofloxacin-dexA METHasone (CIPRODEX) otic suspension Administer 4 drops into the left ear 2 (two) times a day for 7 days 7.5 mL 03/28/2022 3 doxycycline (VIBRAMYCIN) 100 mg capsule Take 1 tablet/capsule (100 mg total) by mouth 2 (two) times a day for 10 days 20 tablet/capsul e 03/28/2022 3 fluticasone propionate (FLONASE) 50 mcg/actuation nasal spray Administer 2 sprays into each nostril daily 1 each 2 03/28/2022 3 doxycycline (VIBRAMYCIN) 100 mg capsule Take 1 tablet/capsule (100 mg total) by mouth 2 (two) times a day for 10 days 20 tablet/capsul e 03/28/2022 3 documented in this encounter Progress Notes * Melanie Mendez, GRACE - 03/28/2022 11:40 AM CST Reason for visit: Ms. Middleton is seen for ear pain, cough . Chief Complaints: (H69.83) Dysfunction of both eustachian tubes (primary encounter diagnosis) (R05.1) Acute cough (H65.22) Left chronic serous otitis media (H73.20) Myringitis HPI: Oumou Middleton is a 46 y.o. female who presents today for evaluation of ears and sinus, Recently seen in urgent care placed on steroids 5 days no taper, augmentin, is using mucinex dm.Having difficulty tolerating cpa due to congestion and eara pain at this time Review of Systems: As above and on the new patients intake form, otherwise the balance of 11 systems was negative. Vital Signs: There were no vitals taken for this visit. Exam: Ears: Right external normal, auditory canal normal, tympanic membrane intact, middle ear space aerated. Left external ear normal, auditory canal inflamed tympanic membrane intact,hyperemic, mild fluid. Nose: Inflamed mucosa, clear rhinnorhea, right deviation deviation of nasal septum. Mouth: Uvula midline, pink mucosa, no lesions. Neck: no masses. doxy ASSESSMENT (H69.83) Dysfunction of both eustachian tubes (primary encounter diagnosis) (R05.1) Acute cough (H65.22) Left chronic serous otitis media (H73.20) Myringitis PLAN: Doxycycline Flonase 2 sprays each nostril bid HANDLER documented in this encounter Plan of Treatment Not on file documented as of this encounter Visit Diagnoses Diagnosis Dysfunction of both eustachian tubes- Primary Acute cough Left chronic serous otitis media Simple or unspecified chronic serous otitis media Myringitis Unspecified disorder of tympanic membrane documented in this encounter Discontinued Medications Medication Sig Discontinue Reason Start Date End Da te doxycycline (VIBRAMYCIN) 100 mg capsule Take 1 tablet/capsule (100 mg total) by mouth 2 (two) times a day for 10 days 03/28/2022 03/28/2022 fluticasone propionate (FLONASE) 50 mcg/actuation nasal spray Administer 2 sprays into each nostril daily 03/28/2022 03/28/2022 documented as of this encounter Care Teams Tower Observer Relationship Specialty Start Date End Date Enma Jones MD PCP - General 10/15/18 04/18/22 Alana Gaytan, [address] [address] Push Connector Assembler Infectious Diseases 01/24/22 documented as of this encounter
--- OUTSIDE RECORDS SUMMARY | 2024-02-12 03:38 | XMS_ITS | Encounter Summary ---
Author Organization [facility] Healthcare Address [address] [place] [address] Care Team Providers Care Budget Record Clerk Name Role Phone Enma Jones MD Primary Care Provider [phone] Reason for Referral * MRI/CAT/PET Scan (Routine) - Closed Specialty Diagnoses / Procedures Referred By Contac t Referred To Contact Radiology Diagnoses Hyperacusis of both ears Procedures CT Temporal Bones WO Contrast Melanie Mendez NP [address] [place] [address] Phone: tel: fax: [address] [place] [address] Referral ID Status Reason Start Date Expiration Date Visits Re quested Visits Authorized [id number] Closed 03/14/2022 04/13/2022 1 1 DING PERFORMANCE CONSULTANT Reason for Visit * MRI/CAT/PET Scan (Routine) - Closed Specialty Diagnoses / Procedures Referred By Contac t Referred To Contact Radiology Diagnoses Hyperacusis of both ears Procedures CT Temporal Bones WO Contrast Melanie Mendez NP [address] [place] [address] Phone: tel: fax: [phone] [place] [address] Referral ID Status Reason Start Date Expiration Date Visits Re quested Visits Authorized [id number] Closed 03/14/2022 04/13/2022 1 1 Encounter Details Date Type Department Care Team (Latest Contact Info) Description 03/14/2022 2:56 PM BUILDING PERFORMANCE CONSULTANT - 03/14/2022 11:59 PM BUILDING PERFORMANCE CONSULTANT Hospital Encounter [facility] Imaging [address] [address] Hyperacusis of both ears Discharge Disposition: Discharge to home or self [...] on file Legal Sex Female 1:16 PM BUILDING PERFORMANCE CONSULTANT Gender Identity Not on file Sexual Orientation Not on file documented as of this encounter Medications at Time of Discharge ALPRAZolam (XANAX) 0.5 mg tablet Take 0.5 mg by mouth nightly as needed for anxiety ARIPiprazole (ABILIFY) 5 mg tablet take 1 tablet by oral route every day 0 0 09/30/2013 metFORMIN (GLUCOPHAGE) 1,000 mg tablet Take 1,000 mg by mouth. triamcinolone (NASACORT) 55 mcg nasal inhaler Administer 2 sprays into each nostril daily 1 g 11 03/01/2022 documented as of this encounter Discharge Disposition Disposition Code Departure Means Destination Discharge to home or self care documented in this encounter Plan of Treatment Not on file documented as of this encounter Procedures Procedure Name Priority Date/Time Associated Diagnosis Comments CT TEMPORAL BONES WO CONTRAST Schedule Routine, Read Routine (OP Routine) 03/14/2022 3:15 PM BUILDING PERFORMANCE CONSULTANT Hyperacusis of both ears documented in this encounter Results * CT Temporal Bones WO Contrast (03/14/2022 3:15 PM BUILDING PERFORMANCE CONSULTANT) Anatomical Region Laterality Modality Head and Neck N/A Computed Tomogra phy 03/14/2022 3:42 PM BUILDING PERFORMANCE CONSULTANT Impressions 03/14/2022 4:07 PM BUILDING PERFORMANCE CONSULTANT No definite CT findings to explain the patient's symptoms. Dictated by: Josue Rivera MD The radiology attending physician has personally reviewed this study, and had reviewed and/or edited this written report and agrees with it. Electronically signed by: Amado Vicente M.D. Narrative 03/14/2022 4:07 PM BUILDING PERFORMANCE CONSULTANT EXAMINATION: CT of the temporal bones without [...] signed by: Amado Vicente M.D. Melanie Mendez ORE MINER BLASTING IMG CT PROCEDURES Final R esult documented in this encounter Visit Diagnoses Diagnosis Hyperacusis of both ears documented in this encounter Care Teams Budget Record Clerk Relationship Specialty Start Date End Date Enma Jones MD PCP - General 10/15/18 04/18/22 Alana Gaytan, [facility] [address] [place] [address] Computer Recycling Worker Infectious Diseases 01/24/22 documented as of this encounter
--- OUTSIDE RECORDS SUMMARY | 2024-02-12 03:38 | XMS_ITS | Encounter Summary ---
Author Organization [facility] Address [address] [place] [address] Phone Care Team Providers Care Glazier Stained Glass Name Role Phone Wilmer Carnes MD Primary Care Provider [phone] Reason for Visit * Reason Comments Eustachian Tube Dysfunction Encounter Details Date Type Department Care Team (Late st Contact Info) Description 04/19/2022 1:00 PM JDE DEVELOPER Office Visit [facility] [address] [facility] 2nd Floor, [address] [place] [address] Melanie Leos REAL ESTATE AGENT [address] [place], [place] [id number] Dysfunction of both eustachian tubes (Primary Dx); Dysfunction of left eustachian tube; DNS (deviated nasal septum); Hyperacusis of both ears; Allergic rhinitis, unspecified seasonality, unspecified trigger; Epistaxis Social History Tobacco Use Types Packs/Day Years [...] on file Legal Sex Female 1:16 PM JDE DEVELOPER Gender Identity Not on file Sexual Orientation Not on file documented as of this encounter Ordered Prescriptions Prescription Sig Dispense Quantity Refills Last Filled Start Date End Date fluocinolone in oil (DermOtic) 0.01 % dropsIndications:O titis Externa Eczema 4 drops each ear 1-2 times per wekk HS and prn itching 20 mL 1 04/19/2022 documented in this encounter Progress Notes * Melanie Leos, REAL ESTATE AGENT - 04/19/2022 1:00 PM CST Reason for visit: Ms. Middleton is seen for eustachian tube dysfunction. Chief Complaints: No diagnosis found. LV 03/28/2022 Oumou Middleton is a 46 y.o. female who presents today for evaluation of ears and sinus, Recently seen in urgent care placed on steroids 5 days no taper, augmentin, is using mucinex dm.Having difficulty tolerating cpa due to congestion and ears pain at this time. Patient with long haulcovid symptoms. Patietn states even when she feels well she has difficulty breathing from nase due to congestion. Has tried breathe right strips with out satisfaction. PLAN: Doxycycline Flonase 2 sprays each nostril bid HPI: Oumou Middleton is a 46 y.o. female who presents today for evaluation of ear and sinus. Continues with chest and bronchial congestion. Is seeing assistant coach in a couple weeks. Continues withdrainage.in throat. Not using saline. Has had some bleeding from right nostril. Review of Systems: As above and on the new patients intake form, otherwise the balance of 11 systems was negative. Vital Signs: There were no vitals taken for this visit. Exam: Ears: Right external normal, auditory canal normal, tympanic membrane intact, middle ear space aerated. Left external ear normal, auditory canalnormal, tympanic membrane intact, middle space aerated. Nose: Inflamed mucosa, clear rhinorrhea, S shaped deviation of nasal septum. Prominent blood vesselright anterior septum.. Mouth: Uvula midline, pink mucosa, no lesions. Neck: no masses. Under binocular microscopy the nasal cavity was examined. Area of prominent vessel was identified right anterior nasal septum. The was anestitized using topical 4% lidocaine. Chemical cautery was applied via Silver nitrate stick , to stabilize and provide hemostaisis to the bleeding site. Patient tolerated with mild burning. No active bleeding ASSESSMENT No diagnosis found. PLAN: Saline, saline gel Dermotic 1-2 times per week and prn itching Gentle treatment of nose Consider consult with Dr Boyd regarding deviated nasl septum DEVELOPER DEVELOPER documented in this encounter Miscellaneous Notes * Addendum Note - Melanie Leos NP - 04/19/2022 1:00 PM CSTAddended by: MELANIE LEOS on: 04/19/2022 04:03 PM Modules accepted: Orders DEVELOPER documented in this encounter Plan of Treatment Not on file documented as of this encounter Visit Diagnoses Diagnosis Dysfunction of both eustachian tubes- Primary Dysfunction of left eustachian tube DNS (deviated nasal septum) Deviated nasal septum Hyperacusis of both ears Allergic rhinitis, unspecified seasonality, unspecified trigger Epistaxis documented in this encounter Care Teams Glazier Stained Glass Relationship Specialty Start Date End Date Wilmer Carnes MD PCP - General Family Medicine 04/19/22 Alana Gaytan [facility] [address] [place] [address] Chef Teacher Infectious Diseases 01/24/22 documented as of this encounter
--- OUTSIDE RECORDS SUMMARY | 2024-02-12 03:38 | XMS_ITS | Encounter Summary ---
Author Organization [facility] Address [address] [place] [address] Phone Care Team Providers Care Youth Counselor Name Role Phone Wilmer Carnes MD Primary Care Provider [phone] Encounter Details Date Type Department Care Team (Late st Contact Info) Description 05/02/2022 Documentation [facility]) - [facility] ENT [address] [facility] 2nd Floor, [address] [place] [address] Melanie Mendez NP [address] [place], [place] [id number] Social History Tobacco Use Types Packs/Day Years [...] on file Legal Sex Female 1:16 PM GEOSCIENCE LABORATORY TECHNICIAN Gender Identity Not on file Sexual Orientation Not on file documented as of this encounter Progress Notes * Clarice Geronimo - 05/02/2022 3:37 PM CST Spoke with patient and informed her that since [facility] is not contracted with [facility], it is advised that she contact her insurance and find a surgeon within her network for her Deviated Septum. Patient said she understood what I was telling her. CIENCE LABORATORY TECHNICIAN documented in this encounter Plan of Treatment Not on file documented as of this encounter Visit Diagnoses Not on filedocumented in this encounter Care Teams Youth Counselor Relationship Specialty Start Date End Date Wilmer Carnes MD PCP - General Family Medicine 04/19/22 Alana Gaytan, [address] [address] Wood Grinder Infectious Diseases 01/24/22 documented as of this encounter
--- OUTSIDE RECORDS SUMMARY | 2024-02-12 03:39 | XMS_ITS | Encounter Summary ---
Author Organization [facility] Address [address] [place] [address] Care Team Providers Care Powersaw Supervisor Name Role Phone No, Physician Primary Care Provider [phone] Reason for Referral * OBGYN (Routine) - Closed Specialty Diagnoses / Procedures Referred By Contteri t Referred To Contact Diagnoses Menorrhagia with irregular cycle Procedures Endometrial Biopsy Only Veronica Chacon NP Phone: tel: fax: [facility] Referral ID Status Reason Start Date Expiration Date Visits Re quested Visits Authorized [id number] Closed 07/12/2018 01/21/2020 1 1 Reason for Visit * Reason Comments Procedure EMB Encounter Details Date Type Department Care Team (Late st Contact Info) Description 07/09/2018 10:00 AM CDT Procedure visit [facility] [address] [facility] [address] [place] [address] Veronica Chacon NP [address] [place] [address] [address] [place] [address] Menorrhagia with irregular cycle (Primary Dx) Social History Tobacco Use Types Packs/Day Years Used Date Smoking Tobacco: Every Day Cigarettes Smokeless Tobacco: Never Alcohol Use Standard Drinks/Week Comments No 0 (1 standard drink = 0.6 oz pur e alcohol) Comments No Sex and Gender Information Value Date Recorded Sex Assigned at Not on file 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 Gender Identity Not on file Sexual Orientation Not on file documented as of this encounter Last Filed Vital Signs Vital Sign Reading Time Taken Comments Blood Pressure 112/82 07/09/2018 10:05 AM CDT Pulse - - Temperature - - Respiratory Rate - - Oxygen Saturation - - Inhaled Oxygen Concentration - - Weight 93 kg (205 lb) 07/09/2018 10:05 AM CDT Height 157.5 cm (5' 2 ) 07/09/2018 10:05 AM CDT Body Mass Index 37.49 07/09/2018 10:05 AM CDT documented in this encounter Progress Notes * Veronica Chacon NP - 07/09/2018 10:00 AM CDT Standard Office Visit Note Subjective: HPI: uOmou Middleton is a 42 y.o. female here today for an endometrial biopsy related to irregular, frequent bleeding. She used Cytotec vaginally for the last 2 nights. States she has had some cramping and light blood-tinged mucus since using the Cytotec. I have reviewed: allergies, current medications, past medical history, past surgical history and problem list Review of Systems: Review of Systems Objective: Vitals: 07/09/18 1005 BP: 112/82 BP Location: Right arm Weight: 205 lb (93 kg) Height: 157.5 cm (5' 2 ) Body mass index is 37.49 kg/m??. Physical Exam Constitutional: She is oriented to person, place, and time. She appears well- developed and well-nourished. Cardiovascular: Normal rate and regular rhythm. Pulmonary/Chest: Effort normal and breath sounds normal. Neurological: She is alert and oriented to person, place, and time. Skin: Skin is warm and dry. Psychiatric: She has a normal mood and affect. Her behavior is normal. Nursing note and vitals reviewed. Assessment/Plan: Diagnoses and all orders for this visit: Menorrhagia with irregular cycle (Primary) Comments: See procedure note Orders: - Endometrial Biopsy Only Veronica Chacon NP documented in this encounter Procedure Notes * Veronica Chacon NP - 07/09/2018 10:00 AM CDTAssociated Order(s): Endometrial Biopsy Only Post-Procedure Diagnose(s): Menorrhagia with irregular cycle Endometrial Biopsy Only Date/Time: 07/09/2018 10:45 AM Performed by: Veronica Chacon NP Authorized by: Veronica Chacon NP Consent Given by: Patient Timeout: prior to procedure the correct patient, procedure, and site was verified Verbal consent obtained: Yes Written consent obtained: Yes Risks, alternatives, and patient questions discussed: Yes Preparation: Patient was prepped using a clean technique Indications: Other disorder of menstruation and other abnormal bleeding from female genital tract Procedure: endometrial biopsy with Pipelle A bivalve speculum was placed in the vagina: yes Cervix cleaned and prepped: yes (with peroxide) A paracervical block was performed: no An intracervical block was performed: no The cervix was dilated: no Uterus sounded: yes Uterus sound depth (cm): 6 Specimen collected: specimen collected and sent to pathology Patient tolerance: Patient tolerated the procedure well with no immediate complications Findings: Uterus size: Non-gravid Cervix: normal Adnexa: normal documented in this encounter Plan of Treatment Not on file documented as of this encounter Procedures Procedure Name Priority Date/Time Associated Diagnosis Comments LA ENDOMETRIAL BX W/WO ENDOCERVIX BX W/O DILAT SPX Routine 07/09/2018 10:00 AM CDT Menorrhagia with irregular cycle documented in this encounter Results * LA ENDOMETRIAL BX W/WO ENDOCERVIX BX W/O DILAT SPX (07/09/2018 10:00 AM CDT) Narrative Veronica Chacon NP - 07/09/2018 10:00 AM CDT Veronica Chacon NP ? 07/12/2018 ??9:27 PM Endometrial Biopsy Only Date/Time: 07/09/2018 10:45 AM Performed by: Veronica Chacon NP Authorized by: Veronica Chacon NP Consent Given by: ??Patient Timeout: prior to procedure the correct patient, procedure, and site was verified ?? Verbal consent obtained: Yes ?? Written consent obtained: Yes ?? Risks, alternatives, and patient questions discussed: Yes ?? Preparation: Patient was prepped using a clean technique ?? Indications: Other disorder of menstruation and other abnormal bleeding from female genital tract ?? Procedure: endometrial biopsy with Pipelle ?? A bivalve speculum was placed in the vagina: yes ?? Cervix cleaned and prepped: yes (with peroxide) ?? A paracervical block was performed: no ?? An intracervical block was performed: no ?? The cervix was dilated: no ?? Uterus sounded: yes ?? Uterus sound depth (cm): ??6 Specimen collected: specimen collected and sent to pathology ?? Patient tolerance: ??Patient tolerated the procedure well with no immediate complications Findings: Uterus size: ??Non-gravid Cervix: normal ?? Adnexa: normal ?? us Veronica Chacon NP IN CLINIC/BEDSIDE ORDERABLES Fin al Result documented in this encounter Visit Diagnoses Diagnosis Menorrhagia with irregular cycle- Primary documented in this encounter Discontinued Medications Medication Sig Discontinue Reason Start Date End Da te miSOPROStol (CYTOTEC) 200 mcg tablet Insert vaginally for 2 nights prior to procedure. Therapy completed 06/26/2018 07/09/2018 documented as of this encounter Care Teams Powersaw Supervisor Relationship Specialty Start Date End Date No, Physician PCP - General 06/08/18 10/14/18 documented as of this encounter
--- OUTSIDE RECORDS SUMMARY | 2024-02-12 03:39 | XMS_ITS | Encounter Summary ---
Author Organization [facility] Address [address] [address] Care Team Providers Care Power Generation Engineer Name Role Phone Dylan Burrell NP Primary Care Provider + Reason for Visit * Reason Comments Pain Encounter Details Date Type Department Care Team (Late st Contact Info) Description 05/09/2017 9:15 AM CDT Office Visit [facility] Orthopedics and Sports Medicine [address] [place] [phone] Omer Frederick MD [address] [place] [address] DR [address] [address] Adhesive capsulitis of right shoulder (Primary Dx) Social History Tobacco Use Types Packs/Day Years Used Date Smoking Tobacco: Never Smokeless Tobacco: Never Alcohol Use Standard Drinks/Week Comments No 0 (1 standard drink = 0.6 oz pur e alcohol) Comments Unknown Sex and Gender Information Value Date Recorded Sex Assigned at Not on file 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 Gender Identity Not on file Sexual Orientation Not on file documented as of this encounter Last Filed Vital Signs Vital Sign Reading Time Taken Comments Blood Pressure 111/76 05/09/2017 10:21 AM CDT Pulse 81 05/09/2017 10:21 AM CDT Temperature - - Respiratory Rate - - Oxygen Saturation - - Inhaled Oxygen Concentration - - Weight 89.8 kg (198 lb) 05/09/2017 10:21 AM CDT Height 157.5 cm (5' 2 ) 05/09/2017 10:21 AM CDT Body Mass Index 36.21 05/09/2017 10:21 AM CDT documented in this encounter Progress Notes * Omer Frederick MD - 05/09/2017 9:15 AM CDT FOLLOW UP VISIT Subjective CHIEF COMPLAINT She had concerns including Pain of the Right Shoulder. HISTORY OF PRESENT ILLNESS Chief complaint right shoulder been going on for many months she has history of frozen shoulder reports her blood sugars are down to 9.2 A1c patient worse she felt a pop in her biceps at MRI which was normal pain is moderate nothing makes it better lifting turning makes it worse the pain is continuous intake sheet signed by patient signed by myself Pain Assessment Pain Assessment: 0-10 Pain Score: 8 Pain Location: Shoulder Pain Orientation: Right MEDICATIONS She has a current medication list which includes the following prescription(s): acetaminophen-codeine, abilify, cetirizine, clotrimazole, cyclobenzaprine, duloxetine dr, ergocalciferol, fluconazole, gabapentin, glimepiride, insulin aspart, meloxicam, metformin, mirtazapine, prazosin, simvastatin, avina lfamethoxazole-trimethoprim, tramadol, and trazodone. REVIEW OF SYSTEMS Review of Systems Constitutional: Negative for activity change, appetite change, chills and fever. HENT: Negative for congestion, dental problem, ear pain, hearing loss and voice change. Eyes: Negative for pain and visual disturbance. Respiratory: Negative for apnea, cough, chest tightness and shortness of breath. Cardiovascular: Negative for chest pain, palpitations and leg swelling. Gastrointestinal: Positive for constipation and nausea. Negative for blood in stool, diarrhea and vomiting. Endocrine: Negative for cold intolerance and heat intolerance. Genitourinary: Negative for difficulty urinating and hematuria. Skin: Negative for color change, rash and wound. Allergic/Immunologic: Negative for environmental allergies. Neurological: Negative for dizziness, syncope, numbness and headaches. Hematological: Negative for adenopathy. Does not bruise/bleed easily. Psychiatric/Behavioral: Negative for confusion. The patient is not nervous/anxious and is not hyperactive. Objective PHYSICAL EXAM BP 111/76 (BP Location: Left arm, Patient Position: Sitting) Pulse 81 Ht 157.5 cm (5' 2 ) Wt 89.8 kg (198 lb) BMI 36.21 kg/m?? Right elbow Inspection Erythema: absent Olecranon bursa swelling: absent Swelling: absent Effusion: absent Skin temperature: normal Surgical scar/wound: absent. Palpation Tenderness: present. Tenderness location: Medial biceps muscle. Range of motion The patient has normal range of motion of the right elbow. The patient has pain with range of motion of the right elbow. Active elbow extension: 0. The patient has pain with active elbow extension. Active elbow flexion: 140. The patient has pain with active elbow flexion. Active forearm pronation: 90. The patient does not have pain with foream pronation. Active forearm supination: 90. The patient does not have pain with forearm supination. Strength The patient has 5/5 strength throughtout with exceptions as noted below.Elbow extension: 4/5 and painful Elbow flexion: 3/5 and painful Forearm pronation: 4/5 and pain free Forearm supination: 4/5 and painful EPL: 5/5 and pain free Neurovascular Radial pulse: 2+ The patient has normal sensation. REVIEW OF X-RAYS/STUDIES/LABS Assessment/Plan Oumou was seen today for pain. Diagnoses and all orders for this visit: Adhesive capsulitis of right shoulder PLAN Home exercise program strict blood sugar control spent 15 minutes discussing her dietary habits shetruly in takes approximately 50 carbs every morning and at least 20 g sugar every morning I recommend her seeing a associate pastor immediately and a dietitian she understands when she decreases her carbohydrate intake it will more likely decrease her need for insulin she will follow up with me on a p.r.n. basis I do not think she is a surgical candidate for her frozen shoulder Omer Frederick MD documented in this encounter Plan of Treatment Not on file documented as of this encounter Visit Diagnoses Diagnosis Adhesive capsulitis of right shoulder- Primary documented in this encounter Care Teams Power Generation Engineer Relationship Specialty Start Date End Date Dylan Burrell NP [address] [place] [address] [place] [address] PCP - General Nurse Practitioner 04/09/17 06/07/18 documented as of this encounter
--- OUTSIDE RECORDS SUMMARY | 2024-02-12 03:39 | XMS_ITS | Encounter Summary ---
Author Organization [facility] Address [address] [place] [address] Care Team Providers Care Rigger Helper Name Role Phone No, Physician Primary Care Provider [phone] Reason for Visit * Reason Onset Date Comments cytotec, side effects 07/08/2018 Encounter Details Date Type Department Care Team (Late st Contact Info) Description 07/08/2018 Telephone [facility] [address] [facility] [address] [place] [address] Isabela Chacon RN cytotec, side effects Social History Tobacco Use Types Packs/Day Years Used Date Smoking Tobacco: Every Day Cigarettes Smokeless Tobacco: Never Alcohol Use Standard Drinks/Week Comments No 0 (1 standard drink = 0.6 oz pur e alcohol) Comments No Sex and Gender Information Value Date Recorded Sex Assigned at Not on file 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 Pt called stating she did thefirst night as instructed and had lots of diarrhea and stomach discomfort. Discussed with Veronica, pt informed it is up to her if she can tolerate the second night of meds or not. Educated on benefits ofmeds with procedure, pt states she can deal with the side effects. Encouraged to push fluids to avoid dehydration. documented in this encounter Plan of Treatment Not on file documented as of this encounter Visit Diagnoses Not on filedocumented in this encounter Care Teams Rigger Helper Relationship Specialty Start Date End Date No, Physician PCP - General 06/08/18 10/14/18 documented as of this encounter
--- OUTSIDE RECORDS SUMMARY | 2024-02-12 03:39 | XMS_ITS | Encounter Summary ---
Author Organization [facility] Address [address] [place] [address] Care Team Providers Care Senior Linux Unix Engineer Name Role Phone No, Physician Primary Care Provider [phone] Reason for Visit * Reason Onset Date Comments Lab Results 06/17/2018 Encounter Details Date Type Department Care Team (Late st Contact Info) Description 06/17/2018 Telephone [facility] [address] [facility] [address] [place] [address] Katie Ferguson, medical care manager Results Social History Tobacco Use Types Packs/Day Years Used Date Smoking Tobacco: Every Day Cigarettes Smokeless Tobacco: Never Alcohol Use Standard Drinks/Week Comments No 0 (1 standard drink = 0.6 oz pur e alcohol) Comments No Sex and Gender Information Value Date Recorded Sex Assigned at Not on file 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 Please advise. Thanks! documented in this encounter Plan of Treatment Not on file documented as of this encounter Visit Diagnoses Not on filedocumented in this encounter Care Teams Senior Linux Unix Engineer Relationship Specialty Start Date End Date No, Physician PCP - General 06/08/18 10/14/18 documented as of this encounter
--- OUTSIDE RECORDS SUMMARY | 2024-02-12 03:39 | XMS_ITS | Encounter Summary ---
Author Organization [facility] Address [address] [place] [address] Care Team Providers Care Rn Residential Name Role Phone No, Physician Primary Care Provider [phone] Reason for Visit * Reason Onset Date Comments EMB 06/26/2018 Encounter Details Date Type Department Care Team (Late st Contact Info) Description 06/26/2018 Telephone [facility] [address] [facility] [address] [place] [address] Isabela Chacon RN EMB Social History Tobacco Use Types Packs/Day Years Used Date Smoking Tobacco: Every Day Cigarettes Smokeless Tobacco: Never Alcohol Use Standard Drinks/Week Comments No 0 (1 standard drink = 0.6 oz pur e alcohol) Comments No Sex and Gender Information Value Date Recorded Sex Assigned at Not on file 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 2 tablet 06/26/2018 9 documented in this encounter Miscellaneous Notes * Telephone Encounter - Isabela Chacon RN - 06/26/2018 2:55 PM CDT Pt scheduled for EMB, cytotec erx'd. Pt instructed on use. documented in this encounter Plan of Treatment Not on file documented as of this encounter Visit Diagnoses Not on filedocumented in this encounter Care Teams Rn Residential Relationship Specialty Start Date End Date No, Physician PCP - General 06/08/18 10/14/18 documented as of this encounter
--- OUTSIDE RECORDS SUMMARY | 2024-02-12 03:39 | XMS_ITS | Encounter Summary ---
Author Organization [facility] Address [address] [place] [address] Care Team Providers Care Sulfuric Acid Plant Supervisor Name Role Phone Dayan Khan NP Primary Care Provider [phone] Reason for Referral * MRI/CAT/PET Scan (Routine) - Closed Specialty Diagnoses / Procedures Referred By Shmuel angel Referred To Contact Radiology Diagnoses Biceps muscle strain, right, initial encounter Procedures MRI Humerus Right WO Contrast [place] Phone: tel: fax: Referral ID Status Reason Start Date Expiration Date Visits Re quested Visits Authorized [id number] Closed 03/31/2017 09/27/2017 1 1 FORM PREPARER Encounter Details Date Type Department Care Team (Late st Contact Info) Description 03/31/2017 Orders Only [facility] Orthopedics and Sports Medicine [address] [place] [address] [address], [place] [address] Anna Miner RMA Biceps muscle strain, right, initial encounter (Primary Dx) Social History Tobacco Use Types Packs/Day Years Used Date Smoking Tobacco: Never Smokeless Tobacco: Never Alcohol Use Standard Drinks/Week Comments No 0 (1 standard drink = 0.6 oz pur e alcohol) Comments Unknown Sex and Gender Information Value Date Recorded Sex Assigned at Not on file 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 Electronically signed by: Moise Kline M.D. Edited by: Supriya Rees Narrative 04/23/2017 1:47 PM TAX FORM PREPARER EXAM: MRI HUMERUS RIGHT WO CONTRAST HISTORY: Biceps strain. TECHNIQUE: Multiplanar multisequence COMPARISON: Right shoulder MRI from 01/26/2016 FINDINGS: The biceps muscles demonstrate normal size and signal intensity. ??The biceps tendons appear intact. ??No evidence of biceps tear seen. ??The triceps muscles demonstrate normal size and signal intensity. ??No discontinuity of triceps tendons are noted. ??The elbow joint demonstrates overall normal morphology. ??No abnormal marrow signal seen. ??No elbow joint effusion is noted. Procedure Note Moise Kline MD - 04/23/2017 EXAM: MRI HUMERUS RIGHT WO CONTRAST HISTORY: Biceps strain. TECHNIQUE: Multiplanar multisequence COMPARISON: Right shoulder MRI from 01/26/2016 FINDINGS: The biceps muscles demonstrate normal size and signal intensity. The biceps tendons appear intact. No evidence of biceps tear seen. The triceps muscles demonstrate normal size and signal intensity. No discontinuity of triceps tendons are noted. The elbow joint demonstrates overall normal morphology. No abnormal marrow signal seen. No elbow joint effusion is noted. IMPRESSION: No acute findings. Electronically signed by: Moise Kline M.D. Edited by: Supriya Rees TYLER [place] II IMTerence MRI PROCEDURES Candy l Result documented in this encounter Visit Diagnoses Diagnosis Biceps muscle strain, right, initial encounter Biceps muscle strain, right, initial encounter- Primary documented in this encounter Care Teams Sulfuric Acid Plant Supervisor Relationship Specialty Start Date End Date Dayan [place] [address] PCP - General 05/24/16 04/08/17 documented as of this encounter
--- OUTSIDE RECORDS SUMMARY | 2024-02-12 03:39 | XMS_ITS | Encounter Summary ---
Author Organization [facility] Address [address] [place] [address] Care Team Providers Care Snow Plow Operator Name Role Phone No, Physician Primary Care Provider [phone] Encounter Details Date Type Department Care Team (Late st Contact Info) Description 07/09/2018 Orders Only [facility] [address] [facility] [address] [place] [phone] Veronica Chacon, SURVEILLANCE INVESTIGATOR [address] [facility] [address] [place] [address] Social History Tobacco Use Types Packs/Day Years Used Date Smoking Tobacco: Every Day Cigarettes Smokeless Tobacco: Never Alcohol Use Standard Drinks/Week Comments No 0 (1 standard drink = 0.6 oz pur e alcohol) Comments No Sex and Gender Information Value Date Recorded Sex Assigned at Not on file 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 Clinical information [facility] Comment:Endometrial biopsy PATHOLOGIST [facility] Comment: Joni Michael M.D., Board Certified in Anatomic Pathology and Cytopathology. (electronic signature) Report notes [facility] Comment:Result canceled by t he ancillary. A Clinical impression [facility] Comment:Result canceled by t he ancillary. A source [facility] Comment:Endometrium, biopsy: A procedure [facility]CELED [facility] Comment:Result canceled by t ana ancillary. A Gross description [facility] Comment: Received in formalin, labeled only with 2 patient identifiers, is a 2.0 x 0.5 x 0.3 cm collection of mucus, blood and possible tissue fragments submitted entirely in a single cassette. DJ Due to shrinkage, measurements of certain types of specimens may be different than those at the time of procedure. ??Gross exam(s) performed at: [facility] ??[id number] [place] [phone] ??Payroll Associate: RAVI RAPHAEL MD A Micro description [facility] Comment:Result canceled by jeanne perez ancillary. 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 A comment [facility] Comment: No evidence of hyperplasia or malignancy is identified. ?? 07/09/2018 07/10/2018 3:0 9 AM CDT Narrative [facility] - 07/10/2018 3:11 PM CDT FASTING: UNKNOWN Resulting Agency Comment Performing Organization Information: ?Site ID: ?Name: [facility] ?Address: [address] [place] [id number] ?Director: Ravi Raphael us Veronica Chacon SURVEILLANCE INVESTIGATOR LAB PATHOLOGY ORDERABLES Final R esult [facility] [place], [place] documented in this encounter Visit Diagnoses Not on filedocumented in this encounter Care Teams Snow Plow Operator Relationship Specialty Start Date End Date No, Physician PCP - General 06/08/18 10/14/18 documented as of this encounter
--- OUTSIDE RECORDS SUMMARY | 2024-02-12 03:39 | XMS_ITS | Encounter Summary ---
Author Organization [facility] Address [address] [place] [address] Care Team Providers Care Publications Sales Representative Name Role Phone No, Physician Primary Care Provider [phone] Reason for Referral * Diagnostic Imaging (Routine) - Closed Specialty Diagnoses / Procedures Referred By Shmuel t Referred To Contact Diagnoses Visit for screening mammogram Breast pain Procedures Screening Mammogram Bilateral W Veronica Pryor NP Phone: tel: fax: [address] [address] Referral ID Status Reason Start Date Expiration Date Visits Re quested Visits Authorized [id number] Closed 06/18/2018 12/28/2019 1 1 Reason for Visit * Reason Onset Date Comments mammogram order 06/18/2018 Encounter Details Date Type Department Care Team (Late st Contact Info) Description 06/18/2018 Telephone [facility] [address] [place] [address] [address] [place] [address] Isabela Chacon RN mammogram order Social History Tobacco Use Types Packs/Day Years Used Date Smoking Tobacco: Every Day Cigarettes Smokeless Tobacco: Never Alcohol Use Standard Drinks/Week Comments No 0 (1 standard drink = 0.6 oz pur e alcohol) Comments No Sex and Gender Information Value Date Recorded Sex Assigned at Not on file 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 Order in Psychiatric. documented in this encounter Plan of Treatment Not on file documented as of this encounter Results * Screening Mammogram Bilateral W Ashwin (06/19/2018 [...] NP IMG MAMMO PROCEDURES Final Resul t documented in this encounter Visit Diagnoses Diagnosis Visit for screening mammogram- Primary Breast pain Mastodynia Visit for screening mammogram Breast pain Mastodynia documented in this encounter Care Teams Publications Sales Representative Relationship Specialty Start Date End Date No, Physician PCP - General 06/08/18 10/14/18 documented as of this encounter
--- OUTSIDE RECORDS SUMMARY | 2024-02-12 03:39 | XMS_ITS | Encounter Summary ---
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 Gender Identity Not on file Sexual Orientation Not on file documented as of this encounter Discharge Disposition Disposition Code Departure Means Destination Discharge to home or self care documented in this encounter Plan of Treatment Not on file documented as of this encounter Procedures Procedure Name Priority Date/Time Associated Diagnosis Comments EGFR Routine 10/15/2018 1:00 PM CDT DIFFERENTIAL AUTO Routine 10/15/2018 1:0 0 PM CDT CBC WITH AUTO DIFFERENTIAL Routine 10/15/2018 1:00 PM CDT HEMOGLOBIN A1C Routine 10/15/2018 1:00 PM CDT HEPATIC FUNCTION PANEL Routine 10/15/2018 1:00 PM CDT BASIC METABOLIC PANEL Routine 10/15/2018 1:00 PM CDT documented in this encounter Results * eGFR (10/15/2018 1:00 PM CDT) eGFR 123 mL/min/1.7 3 m2 [facility] ([place]) Comment: Interpretive Data Reference Interval Normal ?>/= 90 mL/min/1.73m2 Mildly decreased* ? 60 - 89 mL/min/1.73m2 Mildly to moderately decreased ?45 - 59 mL/min/1.73m2 Moderately to severely decreased ??30 - 44 mL/min/1.73m2 Severely decreased ?15 - 29 mL/min/1.73m2 Kidney Failure ?< 15 ??mL/min/1.73m2 *Relative to young adult level If -Pakistani multiply value by 1.16. Estimated glomerular filtration rate is determined by the CKD-EPI equation recommended by the National Kidney Foundation (KDIGO 2012 Clinical Practice Guideline for the Evaluation and Management of Chronic Kidney Disease. Kidney Intnl Suppl Feb 2012;3:1). The CKD-EPI equation should not be used for patients with unstable renal function and has not been validated in children and those over 70. Current interpretive data was last reviewed 2015. Blood specimen (specimen) 10/15/2018 1:00 PM CDT 10/15/2018 2:50 PM CDT us Enma Jones MD LAB BLOOD ORDERABLES Candy mcwilliams Result [facility] ([place]) [address] [facility] [place] [address] * Differential, auto (10/15/2018 1:00 PM CDT) Neutrophil abs 4.4 1.7 - 6.5 K/cumm [facility] ([place]) Imm gran abs 0.0 0.0 - 0.1 K/cumm [facility] ([place]) Lymphocyte abs 1.9 0.8 - 3.3 K/cumm [facility] ([place]) Monocyte abs 0.4 0.2 - 0.8 K/cumm [facility] ([place]) Eosinophil abs 0.4 0.0 - 0.5 K/cumm [facility] ([place]) Basophil abs 0.0 0.0 - 0.1 K/cumm [facility] ([place]) Neutrophil pct 61.7 % [facility] ([place] Comment: Interpretive Data Percent cell count reference ranges are not reported, since discordance with absolute values may lead to misinterpretation of CBC data. Current Interpretive Data was last revised on 2017. Imm gran pct 0.1 % [facility] ([place]) Comment: Interpretive Data Percent cell count reference ranges are not reported, since discordance with absolute values may lead to misinterpretation of CBC data. Current Interpretive Data was last revised on 2017. Lymphocyte pct 26.6 % [facility] ([place]) Comment: Interpretive Data Percent cell count reference ranges are not reported, since discordance with absolute values may lead to misinterpretation of CBC data. Current Interpretive Data was last revised on 2017. Monocyte pct 5.0 % [facility] ([place]) Comment: Interpretive Data Percent cell count reference ranges are not reported, since discordance with absolute values may lead to misinterpretation of CBC data. Current Interpretive Data was last revised on 2017. Eosinophil pct 6.0 % [facility] ([place] Comment: Interpretive Data Percent cell count reference ranges are not reported, since discordance with absolute values may lead to misinterpretation of CBC data. Current Interpretive Data was last revised on 2017. Basophil pct 0.6 % [facility] ([place]) Comment: Interpretive Data Percent cell count reference ranges are not reported, since discordance with absolute values may lead to misinterpretation of CBC data. Current Interpretive Data was last revised on 2017. Blood specimen (specimen) 10/15/2018 1:00 PM CDT 10/15/2018 2:50 PM CDT Enma Jones MD LAB BLOOD ORDERABLES Candy l Result Performing Organization Address [facility] de Phone Number [facility] ([place]) [address] [facility] [place] [address] * (ABNORMAL) Hemoglobin A1c (10/15/2018 1:00 PM CDT) Hgb A1C 9.6(H) 4.0 - 5.6 % [facility] ([place]) Estimated Average Glucose 229 mg/dL [facility] ([place]) Comment: The ADA recommends reporting an estimated Average Glucose (eAG) with all Hemoglobin A1c results using the equation derived from a study of 507 normal and diabetic adults. ??Minority populations were underrepresented and children were not included. ?? (Diabetes Care 31:2819-0357, 2008). ??The eAG is not equivalent to a fasting glucose. Blood specimen (specimen) 10/15/2018 1:00 PM CDT 10/15/2018 2:50 PM CDT Enma Jones MD LAB BLOOD ORDERABLES Candy l Result Performing Organization Address [facility] Co de Phone Number [facility] ([place]) [address] [facility] [place] [address] * (ABNORMAL) CBC with auto differential (10/15/2018 1:00 PM CDT) WBC 7.2 3.8 - 9.9 K/cumm [facility] ([place]) Hgb 14.1 11.9 - 15.5 g/dL [facility] ([place]) Hct 43.3 35.6 - 45.5 % [facility] ([place]) Plt 304 150 - 400 K/cumm [facility] ([place]) MPV 10.4 9.1 - 12.3 fL [facility] RBC 5.25(H) 3.90 - 5.20 M/cumm [facility] ([place]) MCV 82.5 81.3 - 96.4 fL [facility] ([place]) MCH 26.9(L) 27.1 - 33.3 pg [facility] ([place]) MCHC 32.6 32.3 - 35.7 g/dL [facility] ([place]) RDW CV 14.2 11.1 - 14.9 % [facility] ([place]) RDW SD 42.5 35.7 - 48.1 fL [facility] NRBC abs 0.00 0.00 - 0.01 K/cumm [facility] ([place]) Blood specimen (specimen) 10/15/2018 1:00 PM CDT 10/15/2018 2:50 PM CDT Enma Jones MD LAB BLOOD ORDERABLES Candy mcwilliams Result [facility] ([place]) [address] [facility] [place] [address] * (ABNORMAL) Basic metabolic panel (10/15/2018 1:00 PM CDT) Sodium 135 135 - 145 mmol/L [facility] ([place] Potassium, pl 3.8 3.3 - 4.9 mmol/L [facility] Chloride 101 97 - 110 mmol/L [facility]) CO2 22 22 - 32 mmol/L [facility] ([place] Anion gap 12 2 - 15 mmol/L [facility] BUN 10 8 - 25 mg/dL [facility] Creatinine 0.43(L) 0.60 - 1.10 mg/dL [facility] ([place]) Glucose 231(H) 70 - 199 mg/dL [facility] ([place]) Comment: Interpretive Data Fasting glucose >/= 126 [...] interpretive data was last revised 2017. Calcium 9.4 8.5 - 10.3 mg/dL [facility] ([place]) Blood specimen (specimen) 10/15/2018 1:00 PM CDT 10/15/2018 2:50 PM CDT Enma Jones MD LAB BLOOD ORDERABLES Candy l Result Performing Organization Address City/[facility]/ZIP Co de Phone Number [facility] ([place]) [address] [facility] [place] [address] * (ABNORMAL) Hepatic function panel (10/15/2018 1:00 PM CDT) Bilirubin, total 0.9 0.1 - 1.2 mg/dL [facility] ([place]) Bilirubin, direct <0.2 0.1 - 0.3 mg/dL [facility] ([place]) Protein, pl 7.9 6.5 - 8.5 g/dL [facility] ([place]) Albumin 4.2 3.5 - 5.0 g/dL [facility] ([place]) Alk phos 77 40 - 130 Units/L [facility] ([place]) ALT 79(H) 7 - 45 Units/L [facility] ([place]) AST 67(H) 10 - 45 Units/L [facility] ([place]) Blood specimen (specimen) 10/15/2018 1:00 PM CDT 10/15/2018 2:50 PM CDT Enma Jones MD LAB BLOOD ORDERABLES Candy l Result Performing Organization Address City/[facility]/ZIP Co de Phone Number [facility] ([place]) [address] [facility] [place] [address] documented in this encounter Visit Diagnoses Not on filedocumented in this encounter Care Teams Pharmacy Stock Clerk Relationship Specialty Start Date End Date Enma Jones MD PCP - General 10/15/18 04/18/22 documented as of this encounter
--- OUTSIDE RECORDS SUMMARY | 2024-02-12 03:39 | XMS_ITS | Encounter Summary ---
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
--- OUTSIDE RECORDS SUMMARY | 2024-02-12 03:39 | XMS_ITS | Encounter Summary ---
Author Organization [facility] Facility Care Team Providers Care Specialty Sales Representative Name Role Phone No, Physician Primary Care Provider [phone] Encounter Details Date Type Department Care Team (Latest Contact Info) Description 08/10/2018 Travel Social History Tobacco Use Types Packs/Day Years Used Date Smoking Tobacco: Former Cigarettes Smokeless Tobacco: Never Comments:states she quit eig ht years ago Alcohol Use Standard Drinks/Week Comments No 0 (1 standard drink = 0.6 oz pur e alcohol) Comments No Sex and Gender Information Value Date Recorded Sex Assigned at Not on file 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
--- OUTSIDE RECORDS SUMMARY | 2024-02-12 03:39 | XMS_ITS | Encounter Summary ---
Author Organization [facility] Healthcare Address [address] [place] [address] Care Team Providers Care Nurses Director Name Role Phone Dylan Burrell YEAST PUSHER Primary Care Provider + Reason for Visit * Reason Comments Eye Pain Encounter Details Date Type Department Care Team (Late st Contact Info) Description 07/27/2017 6:23 PM CDT - 07/27/2017 7:52 PM CDT Emergency [facility] Emergency Department [address] [place] [address] Cabrera Carrera, DO [address] [place] [address] Acute bacterial conjunctivitis of left eye (Primary Dx) Discharge Disposition: Discharge to home or self care Social History Tobacco Use Types Packs/Day Years Used Date Smoking Tobacco: Former Smokeless Tobacco: Never Alcohol Use Standard Drinks/Week Comments No 0 (1 standard drink = 0.6 oz pur e alcohol) Comments No Sex and Gender Information Value Date Recorded Sex Assigned at Not on file 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 Gender Identity Not on file Sexual Orientation Not on file documented as of this encounter Last Filed Vital Signs Vital Sign Reading Time Taken Comments Blood Pressure 112/77 07/27/2017 7:03 PM CDT Pulse 80 07/27/2017 7:03 PM CDT Temperature 37.2 ??C (99 ??F) 07/27/2017 7:03 PM CDT Respiratory Rate 18 07/27/2017 7:03 PM CDT Oxygen Saturation 98% 07/27/2017 7:03 PM CDT Inhaled Oxygen Concentration - - Weight 88.5 kg (195 lb) 07/27/2017 7:03 PM CDT Height 157.5 cm (5' 2 ) 07/27/2017 7:03 PM CDT Body Mass Index 35.67 07/27/2017 7:03 PM CDT documented in this encounter Discharge Instructions * Discharge Instructions* China Carmen NP - 07/27/2017 7:46 PM CDT Use over the counter Tylenol and Motrin per manufacturers guidelines for relief of pain and fever. Call your eye doctor in the morning on 07/28/17 and follow up with him without fail. * Attachments The following attachments cannot be sent through Care Everywhere. * Conjunctivitis (AfterCare(R) Instructions(ER/ED)) (Croatian) documented in this encounter Medications at Time of Discharge ARIPiprazole (ABILIFY) 5 mg tablet take 1 tablet by oral route every day 0 0 09/30/2013 metFORMIN (GLUCOPHAGE) 1,000 mg tablet Take 1,000 mg by mouth. acetaminophen-codein e (TYLENOL with CODEINE #4) 300-60 mg per tablet 08/08/2016 9 cetirizine (ZyrTEC) 10 mg tablet TK 1 T PO QD 2 10/30/2016 3 clotrimazole 1 % cream 10/30/2016 3 cyclobenzaprine (FLEXERIL) 10 mg tablet 08/08/[address] (CYMBALTA) 30 mg capsule 08/10/2016 3 ergocalciferol (VITAMIN D) 50,000 unit capsule TK 1 C PO WEEKLY 0 09/18/2016 3 fluconazole (DIFLUCAN) 150 mg tablet 06/19/2016 9 gabapentin (NEURONTIN) 300 mg capsule 02/10/2017 9 glimepiride (AMARYL) 2 mg tablet take 1 tablet by oral route every day 0 0 09/30/2013 9 insulin aspart (NovoLOG) 100 unit/mL injection Inject under the skin. 3 meloxicam (MOBIC) 15 mg tablet 08/15/2016 9 mirtazapine (REMERON) 15 mg tablet 08/10/2016 9 moxifloxacin (VIGAMOX) 0.5 % ophthalmic solutionIndications: Bacterial Conjunctivitis 1-2 gtt Every 2 hours while awake for the first 2 days and then every 4-8 hours for 5 days. 3 mL 07/27/2017 9 prazosin (MINIPRESS) 1 mg capsule take 1 capsule by oral route at hs 0 0 10/21/2013 9 simvastatin (ZOCOR) 20 mg tablet take 1 tablet by oral route every day in the evening 0 0 09/30/2013 9 sulfamethoxazole-tri methoprim (BACTRIM,SEPTRA) 800-160 mg per tablet 09/09/2016 9 traMADol (ULTRAM) 50 mg tablet take 1 tablet by oral route every 6 hours as needed 0 0 09/30/2013 9 traZODone (DESYREL) 100 mg tablet take 1 tablet by oral route 2 times every day after meals 0 0 09/30/2013 3 documented as of this encounter Ordered Prescriptions Prescription Sig Dispense Quantity Refills Last Filled Start Date End Date moxifloxacin (VIGAMOX) 0.5 % ophthalmic solutionIndications: Bacterial Conjunctivitis 1-2 gtt Every 2 hours while awake for the first 2 days and then every 4-8 hours for 5 days. 3 mL 07/27/2017 9 documented in this encounter Discharge Disposition Disposition Code Departure Means Destination Discharge to home or self care documented in this encounter ED Notes * China Carmen NP - 07/27/2017 7:35 PM CDT HPI Chief Complaint Patient presents with ??? Eye Pain 41 y.o. year old female with PMHX Past Medical History: Asthma; Depression; accompanied by self presents to ED with c/o left eye pain, redness and drainage. Denies fever, chills, nausea, vomiting, diarrhea, SOB, CP, numbness, tingling. Pt states she sleeps in her contacts every night however has an 8 hour time of contact free each day. Pt woke this morning to redness, photophobia and clear drainage to left eye. Pt denies injury. Pt states when she opens her left eye she feels a pulling. Pt has not taken OTC medication for relief of pain. Pt has not worn contacts today. Patient History Patient Active Problem List Diagnosis Date Noted ??? Type 2 diabetes mellitus (CMS/HCC) 10/04/2013 Class: Temporary ??? Posttraumatic stress disorder 10/04/2013 Class: Temporary Past Medical History: Diagnosis Date ??? Asthma Asthma; Comments: DWL 12/28/2015 - ??? Depression Depression Past Surgical History: Procedure Laterality Date ??? ADENOIDECTOMY Adenoidectomy ??? LAPAROSCOPIC CHOLECYSTECTOMY Laparoscopic cholecystectomy Family History Problem Relation Age of Onset ??? Heart failure Father CHF; Cause of : CHF ??? Heart attack Father Myocardial infarction; ??? Diabetes type II Father Diabetes mellitus type 2; ??? Stroke Other Family history of Stroke; ??? Arthritis Other Family history of Arthritis; ??? Coronary artery disease Other Family history of Coronary artery disease; Social History Substance Use Topics ??? Smoking status: Former Smoker ??? Smokeless tobacco: Never Used ??? Alcohol use No Social History Social History Narrative ??? No narrative on file Review of Systems Review of Systems Constitutional: Negative for chills and fever. HENT: Negative. Negative for ear pain and sore throat. Eyes: Positive for photophobia, pain, discharge and redness. Negative for visual disturbance. Respiratory: Negative. Negative for cough and shortness of breath. Cardiovascular: Negative. Negative for chest pain and palpitations. Gastrointestinal: Negative. Negative for abdominal pain and vomiting. Genitourinary: Negative. Negative for dysuria and hematuria. Musculoskeletal: Negative. Negative for arthralgias and back pain. Skin: Negative. Negative for color change and rash. Neurological: Negative. Negative for seizures and syncope. Psychiatric/Behavioral: Negative. All other systems reviewed and are negative. Physical Exam ED Triage Vitals [07/27/17 1903] Temp Pulse Resp BP SpO2 37.2 ??C (99 ??F) 80 18 112/77 98 % Temp src Heart Rate Source Patient Position BP Location FiO2 (%) Tympanic -- -- -- -- Physical Exam Constitutional: She is oriented to person, place, and time. Vital signs are normal. She appears well-developed and well-nourished. Non-toxic appearance. She does not have a sickly appearance. She does not appear ill. No distress. She is not intubated. HENT: Head: Normocephalic and atraumatic. Right Ear: Hearing and external ear normal. Left Ear: Hearing and external ear normal. Nose: Nose normal. Right sinus exhibits no maxillary sinus tenderness and no frontal sinus tenderness. Left sinus exhibits no maxillary sinus tenderness and no frontal sinus tenderness. Mouth/Throat: Uvula is midline, oropharynx is clear and moist and mucous membranes are normal. No oropharyngeal exudate. Eyes: EOM and lids are normal. Pupils are equal, round, and reactive to light. Right eye exhibits no discharge. Left eye exhibits discharge. Left eye exhibits no chemosis, no exudate and no hordeolum. No foreign body present in the left eye. No scleral icterus. Right eye exhibits normal extraocularmotion and no nystagmus. Left eye exhibits normal extraocular motion and no nystagmus. Right pupil is round and reactive. Left pupil is round and reactive. Redness to left sclera and conjunctivae. Clear drainage noticed. Neck: Trachea normal, normal range of motion, full passive range of motion without pain and phonation normal. Neck supple. Cardiovascular: Normal rate, regular rhythm, normal heart sounds, intact distal pulses and normal pulses. PMI is not displaced. Exam reveals no gallop, no friction rub and no decreased pulses. No murmur heard. Pulmonary/Chest: Effort normal and breath sounds normal. No accessory muscle usage. No apnea, no tachypnea and no bradypnea. She is not intubated. No respiratory distress. She has no decreased breathsounds. She has no wheezes. She has no rhonchi. She has no rales. She exhibits no tenderness. Abdominal: Soft. Bowel sounds are normal. She exhibits no shifting dullness, no distension, no pulsatile liver, no fluid wave, no abdominal bruit, no ascites, no pulsatile midline mass and no mass. There is no hepatosplenomegaly, splenomegaly or hepatomegaly. There is no tenderness. There is no rigidity, no rebound, no guarding, no CVA tenderness, no tenderness at McBurney's point and negative Fajardo's sign. No hernia. Hernia confirmed negative in the ventral area, confirmed negative in the right inguinal area and confirmed negative in the left inguinal area. Musculoskeletal: Normal range of motion. She exhibits no edema, tenderness or deformity. Neurological: She is alert and oriented to person, place, and time. No cranial nerve deficit. Skin: Skin is warm and dry. Capillary refill takes less than 2 seconds. No rash noted. She is not diaphoretic. No erythema. Psychiatric: She has a normal mood and affect. Her behavior is normal. Nursing note and vitals reviewed. ED Course & MDM ED Course as of Jul 27 1945 [place] Jul 27, 20171933 Tetracaine 0.5% ophthalmic drops placed in left eye . Eye then stained with Fluorescein strip.Eye examined under Wood's lamp. No foreign bodies, corneal abrasions, or corneal lesions noted.The procedure performed without complications. The patient tolerated procedure well. [GV] ED Course User Index [GV] China Carmen NP [facility] Acute bacterial conjunctivitis of left eye China Carmen NP 07/27/171946 Cosigned by Cabrera Carrera DO at 07/27/2017 7:50 PM CDT * Britt Ruano RN - 07/27/2017 7:02 PM CDT Pt reports waking this am with pain to the left eye. Pt reports clear drainage and reports light sensitivity. Pt reports that she slept in her contacts and is concerned that she scratched her eye in her sleep. Pt denies any additional symptoms at this time. documented in this encounter Plan of Treatment Not on file documented as of this encounter Visit Diagnoses Diagnosis Acute bacterial conjunctivitis of left eye- Primary documented in this encounter Administered Medications Inactive Administered Medications - up to 3 most recent administrations Medication Order MAR Action Action Date Dose Rate Site fluorescein 1 mg ophthalmic strip 1 strip 1 strip, each eye, Once, On 07/27/17 at 1845, For 1 dose Given by Other 07/27/2017 7:47 PM CDT 1 strip tetracaine (PF) (ALTACAINE) 0.5 % ophthalmic solution 1 drop 1 drop, each eye, Once, On 07/27/17 at 1845, For 1 dose, Indications: Administration of Corneal AnesthesiaIndications:Administ ration of Corneal Anesthesia Given by Other 07/27/2017 7:47 PM CDT 1 drop documented in this encounter Active and Recently Administered Medications Times are shown in CDT. Scheduled Medication Order 07/25/2017 07/26/2017 07/27/2017 fluorescein 1 mg ophthalmic strip 1 strip (COMPLETED) 1 strip, each eye, Once, On 07/27/17 at 1845, For 1 dose 1946 (Given by Other - Provider: Britt Ruano, ELVIE) tetracaine (PF) (ALTACAINE) 0.5 % ophthalmic solution 1 drop (COMPLETED) 1 drop, each eye, Once, On 07/27/17 at 1845, For 1 dose, Indications: Administration of Corneal Anesthesia 1946 (Given by Other - Provider: Britt Ruano RN) documented in this encounter Orders Nursing Count Last Ordered Date First Orde red Date NURSING COMMUNICATION 1 07/27/2017 VISUAL ACUITY SCREENING 1 07/27/2017 documented in this encounter Care Teams Nurses Director Relationship Specialty Start Date End Date Dylan Burrell NP [address] [place] [address] DR OVI[address]O [address] [place] [id number] PCP - General Nurse Practitioner 04/09/17 06/07/18 documented as of this encounter
--- OUTSIDE RECORDS SUMMARY | 2024-02-12 03:39 | XMS_ITS | Encounter Summary ---
Author Organization [facility] Address [address] [place] [address] Care Team Providers Care Conservation Or Heritage Architect Name Role Phone No, Physician Primary Care Provider [phone] Reason for Visit * Reason Onset Date Comments biopsy results 07/14/2018 Encounter Details Date Type Department Care Team (Late st Contact Info) Description 07/14/2018 Telephone [place] [address] [facility] [address] [place] [address] Isabela Chacon RN biopsy results Social History Tobacco Use Types Packs/Day Years Used Date Smoking Tobacco: Every Day Cigarettes Smokeless Tobacco: Never Alcohol Use Standard Drinks/Week Comments No 0 (1 standard drink = 0.6 oz pur e alcohol) Comments No Sex and Gender Information Value Date Recorded Sex Assigned at Not on file 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 Meds erx'd, pt to call with update. * Telephone Encounter - Isabela Chacon RN - 07/14/2018 10:53 AM CDT ----- Message from Veronica Chacon NP sent at 07/13/2018 4:11 PM CDT ----- Please call patient with results. No evidence of malignancy. I recommend we start on Provera 10 mg daily x 14 days to help shed the uterine llining. Hopefully this will reset her menstrual cycle. Patient may bleed heavy the first few days of treatment. documented in this encounter Plan of Treatment Not on file documented as of this encounter Visit Diagnoses Not on filedocumented in this encounter Care Teams Conservation Or Heritage Architect Relationship Specialty Start Date End Date No, Physician PCP - General 06/08/18 10/14/18 documented as of this encounter
--- OUTSIDE RECORDS SUMMARY | 2024-02-12 03:39 | XMS_ITS | Encounter Summary ---
Author Organization [facility] Medical [facility] Address [address] [facility] [facility] [address] [place] [address] Care Team Providers Care Manager Field Sales Name Role Phone No, Physician Primary Care Provider [phone] Reason for Visit * Reason Onset Date Comments lab results 06/19/2018 Encounter Details Date Type Department Care Team (Late st Contact Info) Description 06/19/2018 Telephone [place] [address] [facility] [address] [place] [address] Isabela Chacon, clinical laboratory assistant results Social History Tobacco Use Types Packs/Day Years Used Date Smoking Tobacco: Every Day Cigarettes Smokeless Tobacco: Never Alcohol Use Standard Drinks/Week Comments No 0 (1 standard drink = 0.6 oz pur e alcohol) Comments No Sex and Gender Information Value Date Recorded Sex Assigned at Not on file 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 Meds erx'd. * Telephone Encounter - Isabela Chacon RN - 06/19/2018 10:51 AM CDT ----- Message from Veronica Chacon NP sent at 06/19/2018 10:20 AM CDT ----- Overall, lab work looks good except for low vitamin D. Would recommend supplementing with 50,000 iuweekly with a meal and then rechecking level in approximately 8 weeks after treatment. documented in this encounter Plan of Treatment Not on file documented as of this encounter Visit Diagnoses Not on filedocumented in this encounter Care Teams Manager Field Sales Relationship Specialty Start Date End Date No, Physician PCP - General 06/08/18 10/14/18 documented as of this encounter
--- OUTSIDE RECORDS SUMMARY | 2024-02-12 03:39 | XMS_ITS | Encounter Summary ---
Author Organization [facility] Address [address] [address] Care Team Providers Care Radial Saw Operator Name Role Phone Dylan Burrell NP Primary Care Provider + Reason for Visit * Reason Comments Pain Encounter Details Date Type Department Care Team (Late st Contact Info) Description 04/22/2017 1:45 PM HUMAN RESOURCE INTERNSHIP Office Visit [facility] Orthopedics and Sports Medicine [address] [place] [phone] [place], PA [address] [place] [address] [address] [place] [address] Biceps strain, right, subsequent encounter (Primary Dx); Shoulder impingement syndrome, right Social History Tobacco Use Types Packs/Day Years Used Date Smoking Tobacco: Never Smokeless Tobacco: Never Alcohol Use Standard Drinks/Week Comments No 0 (1 standard drink = 0.6 oz pur e alcohol) Comments Unknown Sex and Gender Information Value Date Recorded Sex Assigned at Not on file Legal Sex Female 1:16 PM HUMAN RESOURCE INTERNSHIP Gender Identity Not on file Sexual Orientation Not on file documented as of this encounter Last Filed Vital Signs Vital Sign Reading Time Taken Comments Blood Pressure 108/75 04/22/2017 2:04 PM HUMAN RESOURCE INTERNSHIP Pulse 85 04/22/2017 2:04 PM HUMAN RESOURCE INTERNSHIP Temperature - - Respiratory Rate - - Oxygen Saturation - - Inhaled Oxygen Concentration - - Weight 88.9 kg (196 lb) 04/22/2017 2:04 PM HUMAN RESOURCE INTERNSHIP Height 157.5 cm (5' 2 ) 04/22/2017 2:04 PM HUMAN RESOURCE INTERNSHIP Body Mass Index 35.85 04/22/2017 2:04 PM HUMAN RESOURCE INTERNSHIP documented in this encounter Progress Notes * [place] PA - 04/22/2017 1:45 PM CST Images from the original note were not included. FOLLOW UP VISIT Subjective CHIEF COMPLAINT She had concerns including Pain of the Right Upper Arm. HISTORY OF PRESENT ILLNESS Mrs. Middleton returns to the office today to review the results of her right arm MRI which was done at [facility] on 03/31/2017 for clinical examination suggesting a tear in the medial head of the biceps. Mrs. Middleton has experienced pain in the right arm and shoulder for over the past 3 years with no specific trauma or precipitating event and has been receiving physical therapy at [facility] for he has of capsulitis and impingement. She presented to the office on 03/13/2017 3days following a painful ???pop?? while attempting to lift a gal milk jug. Mrs. Middleton was treatedwith sling for comfort and anti- inflammatory medication. An MRI of the right humerus was obtained to assess for possible biceps tear. Mrs. Middleton continues to have pain in the upper arm at a severitylevel of 9/10. Pain Assessment Pain Assessment: 0-10 Pain Score: 9 Pain Location: Arm Pain Orientation: Right Pain Descriptors: Aching Pain Frequency: Constant/continuous Pain Onset: Ongoing Clinical Progression: Gradually worsening Aggravating Factors: Bending, Stretching, Straightening Result of Injury: No Work-Related Injury: No Patient's Stated Pain Goal: No pain Pain Interventions: Medication (See MAR) MEDICATIONS She has a current medication list [...] chest pain, palpitations and leg swelling. Gastrointestinal: Negative for blood in stool, constipation, diarrhea, nausea and vomiting. Endocrine: Negative for cold intolerance and heat intolerance. Genitourinary: Negative for difficulty urinating and hematuria. Skin: Negative for color change, rash and wound. Allergic/Immunologic: Negative for environmental allergies. Neurological: Negative for dizziness, syncope, numbness and headaches. Hematological: Negative for adenopathy. Does not bruise/bleed easily. Psychiatric/Behavioral: Negative for confusion. The patient is not nervous/anxious and is not hyperactive. Objective PHYSICAL EXAM BP 108/75 Pulse 85 Ht 157.5 cm (5' 2 ) Wt 88.9 kg (196 lb) BMI 35.85 kg/m?? Right elbow Inspection Erythema: absent Olecranon [...] patient has normal sensation. REVIEW OF X-RAYS/STUDIES/LABS dictation from the MRI of the right humerus dated 03/31/2017 is currently unavailable and pending. Assessment/Plan Oumou was seen today for pain. Diagnoses and all orders for this visit: Biceps strain, right, subsequent encounter Shoulder impingement syndrome, right PLAN Pain in the right biceps remains persistent and progressive without clinical findings. Mrs. Middleton will be notified of the radiologist interpretation when available. She is encouraged to continue with activity modification and sling for comfort. Mrs. Middleton is encouraged to call the office anytime she has any problems or concerns during the interim. SHAYAN Govea PA Cosigned by Omer Frederick MD at 04/30/2017 11:03 PM HUMAN RESOURCE INTERNSHIP N RESOURCE INTERNSHIP N RESOURCE INTERNSHIP documented in this encounter Plan of Treatment Not on file documented as of this encounter Visit Diagnoses Diagnosis Biceps strain, right, subsequent encounter- Primary Shoulder impingement syndrome, right documented in this encounter Care Teams Radial Saw Operator Relationship Specialty Start Date End Date Dylan Burrell NP [address] [facility] [address] [place] [id number] PCP - General Nurse Practitioner 04/09/17 06/07/18 documented as of this encounter
--- OUTSIDE RECORDS SUMMARY | 2024-02-12 03:39 | XMS_ITS | Encounter Summary ---
Author Organization [facility] Address [address] [facility] [address] [place] [address] Care Team Providers Care Tracer Clerk Name Role Phone Dylan Burrell NP Primary Care Provider + Encounter Details Date Type Department Care Team (Late st Contact Info) Description 04/23/2017 Telephone [facility] Orthopedics and Sports Medicine [address] [place] [phone] Omer Frederikc MD [address] [place] [address] [address] [address] Social History Tobacco Use Types Packs/Day Years Used Date Smoking Tobacco: Never Smokeless Tobacco: Never Alcohol Use Standard Drinks/Week Comments No 0 (1 standard drink = 0.6 oz pur e alcohol) Comments Unknown Sex and Gender Information Value Date Recorded Sex Assigned at Not on file 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 She states she was waiting for it to be read by a radiologist. Itlooks like it has been read, please advise. CTOR OF BRAND MARKETING documented in this encounter Plan of Treatment Not on file documented as of this encounter Visit Diagnoses Not on filedocumented in this encounter Care Teams Tracer Clerk Relationship Specialty Start Date End Date Dylan Burrell NP [address] [address] PCP - General Nurse Practitioner 04/09/17 06/07/18 documented as of this encounter
--- OUTSIDE RECORDS SUMMARY | 2024-02-12 03:39 | XMS_ITS | Encounter Summary ---
Author Organization [facility] Healthcare Address [address] [place] [address] Care Team Providers Care Senior Quality Assurance Specialist Name Role Phone No, Physician Primary Care Provider [phone] Reason for Referral * Diagnostic Imaging (Routine) - Closed Specialty Diagnoses / Procedures Referred By Contac t Referred To Contact Diagnoses Visit for screening mammogram Breast pain Procedures Screening Mammogram Bilateral W Veronica Pryor NP Phone: tel: fax: [address] [phone] Referral ID Status Reason Start Date Expiration Date Visits Re quested Visits Authorized [id number] Closed 06/18/2018 12/28/2019 1 1 Reason for Visit * Diagnostic Imaging (Routine) - Closed Specialty Diagnoses / Procedures Referred By Contac t Referred To Contact Diagnoses Visit for screening mammogram Breast pain Procedures Screening Mammogram Bilateral W Veronica Pryor NP Phone: tel: fax: [address] [phone] Referral ID Status Reason Start Date Expiration Date Visits Re quested Visits Authorized [id number] Closed 06/18/2018 12/28/2019 1 1 Encounter Details Date Type Department Care Team (Latest Contact Info) Description 06/19/2018 10:35 AM CDT - 06/19/2018 11:59 PM CDT Hospital Encounter [facility] [address] [place] [id number] Eber Groves MD [address] [place] [address] [address] [place] [address] Veronica Chacon NP [address] [place] [address] Visit for screening mammogram; Breast pain Discharge Disposition: Discharge to home or self care Social History Tobacco Use Types Packs/Day Years Used Date Smoking Tobacco: Every Day Cigarettes Smokeless Tobacco: Never Alcohol Use Standard Drinks/Week Comments No 0 (1 standard drink = 0.6 oz pur e alcohol) Comments No Sex and Gender Information Value Date Recorded Sex Assigned at Not on file 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 3 traZODone (DESYREL) 100 mg tablet take 1 tablet by oral route 2 times every day after meals 0 0 09/30/2013 3 documented as of this encounter Discharge Disposition Disposition Code Departure Means Destination Discharge to home or self care documented in this encounter Plan of Treatment Not on file documented as of this encounter Procedures Procedure Name Priority Date/Time Associated Diagnosis Comments SCREENING MAMMOGRAM BILATERAL W ASHWIN Schedule Routine, Read Routine (OP Routine) 06/19/2018 10:55 AM CDT Visit for screening mammogram Breast pain documented in this encounter Results * Screening Mammogram Bilateral [...] encounter Visit Diagnoses Diagnosis Visit for screening mammogram Breast pain Mastodynia documented in this encounter Care Teams Senior Quality Assurance Specialist Relationship Specialty Start Date End Date No, Physician PCP - General 06/08/18 10/14/18 documented as of this encounter
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
--- OUTSIDE RECORDS SUMMARY | 2024-02-12 03:39 | XMS_ITS | Encounter Summary ---
Author Organization [facility] Healthcare Address [address] [place] [address] Care Team Providers Care Undercover Cop Name Role Phone Dylan Burrell NP Primary Care Provider + Encounter Details Date Type Department Care Team (Latest Contact Info) Description 04/25/2017 1:36 PM WORKERS COMPENSATION CLAIMS SUPERVISOR - 04/25/2017 11:59 PM WORKERS COMPENSATION CLAIMS SUPERVISOR Hospital Encounter [facility] [address] [place] [address] Garry Garcia MD [address] [facility] [address] [address] Lumbago Discharge Disposition: Discharge to home or self care Social History Tobacco Use Types Packs/Day Years Used Date Smoking Tobacco: Never Smokeless Tobacco: Never Alcohol Use Standard Drinks/Week Comments No 0 (1 standard drink = 0.6 oz pur e alcohol) Comments Unknown Sex and Gender Information Value Date Recorded Sex Assigned at Not on file Legal Sex Female 1:16 PM WORKERS COMPENSATION CLAIMS SUPERVISOR Gender Identity Not on file Sexual Orientation Not on file documented as of this encounter Medications at Time of Discharge ARIPiprazole (ABILIFY) 5 mg tablet take 1 tablet by oral route every day 0 0 09/30/2013 metFORMIN (GLUCOPHAGE) 1,000 mg tablet Take 1,000 mg by mouth. acetaminophen-cod eine (TYLENOL with CODEINE #4) 300-60 mg per tablet 08/08/2016 06/05/2018 cetirizine (ZyrTEC) 10 mg tablet TK 1 T PO QD 2 10/30/2016 03/01/2022 clotrimazole 1 % cream 10/30/2016 03/01/2022 cyclobenzaprine (FLEXERIL) 10 mg tablet 08/08/2016 03/01/[address] (CYMBALTA) 30 mg capsule 08/10/2016 03/01/2022 ergocalciferol (VITAMIN D) 50,000 unit capsule TK 1 C PO WEEKLY 0 09/18/2016 03/01/2022 fluconazole (DIFLUCAN) 150 mg tablet 06/19/2016 06/05/2018 gabapentin (NEURONTIN) 300 mg capsule 02/10/2017 06/05/2018 glimepiride (AMARYL) 2 mg tablet take 1 tablet by oral route every day 0 0 09/30/2013 06/05/2018 insulin aspart (NovoLOG) 100 unit/mL injection Inject under the skin. 03/01/2022 meloxicam (MOBIC) 15 mg tablet 08/15/2016 06/05/2018 mirtazapine (REMERON) 15 mg tablet 08/10/2016 06/05/2018 prazosin (MINIPRESS) 1 mg capsule take 1 capsule by oral route at hs 0 0 10/21/2013 06/05/2018 simvastatin (ZOCOR) 20 mg tablet take 1 tablet by oral route every day in the evening 0 0 09/30/2013 06/05/2018 sulfamethoxazole- trimethoprim (BACTRIM,SEPTRA) 800-160 mg per tablet 09/09/2016 06/05/2018 traMADol (ULTRAM) 50 mg tablet take 1 tablet by oral route every 6 hours as needed 0 0 09/30/2013 06/05/2018 traZODone (DESYREL) 100 mg tablet take 1 tablet by oral route 2 times every day after meals 0 0 09/30/2013 03/01/2022 documented as of this encounter Discharge Disposition Disposition Code Departure Means Destination Discharge to home or self care documented in this encounter Plan of Treatment Not on file documented as of this encounter Procedures Procedure Name Priority Date/Time Associated Diagnosis Comments MRI LUMBAR SPINE WO CONTRAST Schedule Routine, Read Routine (OP Routine) 04/25/2017 2:19 PM WORKERS COMPENSATION CLAIMS SUPERVISOR Lumbago documented in this encounter Results * MRI Lumbar Spine WO Contrast (04/25/2017 2:19 PM WORKERS COMPENSATION CLAIMS SUPERVISOR) Anatomical Region Laterality Modality Spine N/A Magnetic Resonan ce Impressions 04/25/2017 2:42 PM WORKERS COMPENSATION CLAIMS SUPERVISOR 1. ??SMALL CENTRAL DISC PROTRUSION AT L4-L5 CAUSING MINIMAL CANAL NARROWING. ??THIS IS UNCHANGED. 2. ??MILD FORAMINAL NARROWING AT L4-L5 SECONDARY TO FACET HYPERTROPHY. 3. ??NO EVIDENCE OF FRACTURE OR MALALIGNMENT OF THE LUMBAR COLUMN. Electronically signed by: Javier Rosado M.D. Narrative 04/25/2017 2:42 PM WORKERS COMPENSATION CLAIMS SUPERVISOR MRI LUMBAR SPINE WO CONTRAST HISTORY: Low back pain. ??Chronic low back pain, increasing over the last 2 years. ??Now with right lower extremity numbness. TECHNIQUE: Standard spine imaging was obtained using axial and sagittal T1 and T2 sequences without contrast. COMPARISON: 02/03/2017 FINDINGS: The lumbar column is normally aligned. There is no evidence of fracture, marrow edema, or osseous lesion. The conus medullaris terminates normally at L1. The paraspinal soft tissues are normal. T12/L1: ??The disc is normal. The spinal canal and neural foramina are patent. L1/2: The disc is normal. The spinal canal and neural foramina are patent. L2/3: The disc is normal. The spinal canal and neural foramina are patent. L3/4: The disc is normal. The spinal canal and neural foramina are patent. L4/5: A small central disc protrusion is present which is not significantly changed compared to the previous study. ??Very minimal canal narrowing is present. ??Mild bilateral foraminal narrowing is present secondary to facet hypertrophy. L5/S1: Very minimal central disc bulging is present with no significant canal stenosis. ??The neural foramina appear normal. Procedure Note Javier Rsoado MD - 04/25/2017 MRI LUMBAR SPINE WO CONTRAST HISTORY: Low back pain. Chronic low back pain, increasing over the last 2 years. Now with right lower extremity numbness. TECHNIQUE: Standard spine imaging was obtained using axial and sagittal T1 and T2 sequences without contrast. COMPARISON: 02/03/2017 FINDINGS: The lumbar column is normally aligned. There is no evidence of fracture, marrow edema, or osseous lesion. The conus medullaris terminates normally at L1. The paraspinal soft tissues are normal. T12/L1: The disc is normal. The spinal canal and neural foramina are patent. L1/2: The disc is normal. The spinal canal and neural foramina are patent. L2/3: The disc is normal. The spinal canal and neural foramina are patent. L3/4: The disc is normal. The spinal canal and neural foramina are patent. L4/5: A small central disc protrusion is present which is not significantly changed compared to the previous study. Very minimal canal narrowing is present. Mild bilateral foraminal narrowing is present secondary to facet hypertrophy. L5/S1: Very minimal central disc bulging is present with no significant canal stenosis. The neural foramina appear normal. IMPRESSION: 1. SMALL CENTRAL DISC PROTRUSION AT L4-L5 CAUSING MINIMAL CANAL NARROWING. THIS IS UNCHANGED. 2. MILD FORAMINAL NARROWING AT L4-L5 SECONDARY TO FACET HYPERTROPHY. 3. NO EVIDENCE OF FRACTURE OR MALALIGNMENT OF THE LUMBAR COLUMN. Electronically signed by: Javier Rosado M.D. Garry Garcia MD IMG MRI PROCEDURES Final Result documented in this encounter Visit Diagnoses Diagnosis Lumbago documented in this encounter Care Teams Undercover Cop Relationship Specialty Start Date End Date Dylan Burrell NP [address] [place] [address] [address] OVI[address]O [address] [place] [id number] PCP - General Nurse Practitioner 04/09/17 06/07/18 documented as of this encounter
--- OUTSIDE RECORDS SUMMARY | 2024-02-12 03:39 | XMS_ITS | Encounter Summary ---
Author Organization [facility] Healthcare Address [address] [place] [address] Care Team Providers Care Library Technician Name Role Phone No, Physician Primary Care Provider [phone] Encounter Details Date Type Department Care Team (Late st Contact Info) Description 06/08/2018 4:25 PM CDT Lab [address] Eber Groves MD [address] [place] [address] [address] [place] [address] Veronica Chacon NP [address] [place] [address] [address] [place] [address] Body mass index (BMI) of 37.0-37.9 in adult ; Other fatigue ; Vasomotor symptoms due to menopause; Decreased libido; Symptomatic menopausal or female climacteric states; Well woman exam Discharge Disposition: Discharge to home or self care Social History Tobacco Use Types Packs/Day Years Used Date Smoking Tobacco: Every Day Cigarettes Smokeless Tobacco: Never Alcohol Use Standard Drinks/Week Comments No 0 (1 standard drink = 0.6 oz pur e alcohol) Comments No Sex and Gender Information Value Date Recorded Sex Assigned at Not on file Legal Sex Female 1:16 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 FARMER Gender Identity Not on file Sexual Orientation Not on file documented as of this encounter Discharge Disposition Disposition Code Departure Means Destination Discharge to home or self care documented in this encounter Plan of Treatment Not on file documented as of this encounter Procedures Procedure Name Priority Date/Time Associated Diagnosis Comments VITAMIN D 25 HYDROXY Routine 06/08/2018 4:27 PM CDT Body mass index (BMI) of 37.0-37.9 in adult Other fatigue TESTOSTERONE, TOTAL AND FREE, SERUM Routine 06/08/2018 4:27 PM CDT Vasomotor symptoms due to menopause Decreased libido Symptomatic menopausal or female climacteric states TSH Routine 06/08/2018 4:27 PM CDT Other fatigue Well woman exam Vasomotor symptoms due to menopause T4, FREE Routine 06/08/2018 4:27 PM CDT Other fatigue Well woman exam Vasomotor symptoms due to menopause FOLLICLE STIMULATING HORMONE Routine 06/08/2018 4:27 PM CDT Vasomotor symptoms due to menopause Decreased libido Symptomatic menopausal or female climacteric states documented in this encounter Results * TSH (06/08/2018 4:27 PM CDT) Thyroid Stimulating Hormone 0.34 0.30 - 4.20 mcIUnit/mL [facility] ([facility]) Blood specimen (specimen) 06/08/2018 4:27 PM CDT 06/08/2018 5:13 PM CDT Narrative [facility] ([facility]) - 06/08/2018 5:53 PM CDT Veronica Chacon SENIOR RECRUITER LAB BLOOD ORDERABLES Final Resul t [facility] ([facility]) 1 [facility] Department of Laboratories [place], [place] [id number] * T4, free (06/08/2018 4:27 PM CDT) Free T4 1.26 0.90 - 1.70 ng/dL [facility] ([facility]) Blood specimen (specimen) 06/08/2018 4:27 PM CDT 06/08/2018 5:13 PM CDT Narrative [facility] ([facility]) - 06/08/2018 5:53 PM CDT us Veronica Chacon NP LAB BLOOD ORDERABLES Final Resul t Performing Organization Address [facility] Co de Phone Number [facility] ([place]) 1 [facility] [place] [address] * Follicle stimulating hormone (06/08/2018 4:27 PM CDT) FSH 6.1 IUnits/L [facility] ([facility]) Comment: Interpretive Data Male: Adults: ?1.5 - 12.4 IUnits/L Female: ?? Follicular: ?3.5 - 12.5 IUnits/L Ovulation: ? 4.7 - 21.5 IUnits/L Luteal: ?1.7 - 7.7 IUnits/L Postmenopausal: 25.8 - 134.8 IUnits/L Current interpretive data was last revised 2015. Testing performed by: [facility], [address] [place]., [address] Blood specimen (specimen) 06/08/2018 4:27 PM CDT 06/09/2018 9:21 AM CDT Narrative [facility] ([facility]) - 06/09/2018 9:59 AM CDT us Veronica Chacon NP LAB BLOOD ORDERABLES Final Resul t Performing Organization Address [facility] Co de Phone Number [facility] ([facility]) 1 [facility] [place] [address] * Testosterone, Total and Free, Serum (06/08/2018 4:27 PM CDT) Testosterone 19 8 - 60 ng/dL [facility] ([facility]) Comment: ADDITIONAL INFORMATION Testing performed by Liquid Chromatography-Tandem Mass Spectrometry (LC-MS/MS). This test was developed and its performance characteristics determined by [facility] in a manner consistent with CLIA requirements. This test has not been cleared or approved by the U.S. Food and Drug Administration. Test Performed by: [facility] [address] [place] [address] Testosterone, free 0.23 0.06 - 0.98 ng/dL [facility] ([facility]) Comment: ADDITIONAL INFORMATION Testing performed by [facility]. This test was developed and its performance characteristics determined by [facility] in a manner consistent with CLIA requirements. This test has not been cleared or approved by the U.S. Food and Drug Administration. Blood specimen (specimen) 06/08/2018 4:27 PM CDT 06/08/2018 5:43 PM CDT Narrative [facility] ([facility]) - 06/11/2018 3:08 PM CDT Veronica Chacon NP LAB BLOOD ORDERABLES Final Resul t Performing Organization Address City/[facility]/ZIP Co de Phone Number [facility] ([facility]) 1 [facility] [place] [address] * (ABNORMAL) Vitamin D 25 hydroxy (06/08/2018 4:27 PM CDT) Vitamin D 25-OH 22(L) 30 - 80 ng/mL [facility] ([facility]) Blood specimen (specimen) 06/08/2018 4:27 PM CDT 06/08/2018 5:13 PM CDT Narrative [facility] ([facility]) - 06/08/2018 5:53 PM CDT Veronica Chacon NP LAB BLOOD ORDERABLES Final Resul t [facility] ([facility]) 1 [facility] [place] [address] documented in this encounter Visit Diagnoses Diagnosis Body mass index (BMI) of 37.0-37.9 in adult Other fatigue Vasomotor symptoms due to menopause Decreased libido Symptomatic menopausal or female climacteric states Well woman exam Routine general medical examination at a health care facility documented in this encounter Care Teams Library Technician Relationship Specialty Start Date End Date No, Physician PCP - General 06/08/18 10/14/18 documented as of this encounter
--- OUTSIDE RECORDS SUMMARY | 2024-02-12 03:39 | XMS_ITS | Encounter Summary ---
Author Organization [facility] Healthcare Address [address] [place] [address] Care Team Providers Care Test Developer Name Role Phone Enma Jones MD Primary Care Provider [phone] Reason for Referral * Diagnostic Imaging (Routine) - Closed Specialty Diagnoses / Procedures Referred By Contac t Referred To Contact Diagnoses Ganglion, unspecified ankle and foot Procedures US Lower Extremity Left Limited Krys Ward NP [address] [address] Phone: tel: fax: [address] [phone] Referral ID Status Reason Start Date Expiration Date Visits Re quested Visits Authorized [id number] Closed 12/30/2018 07/10/2020 1 1 P SEGMENT CONSULTANT Reason for Visit * Diagnostic Imaging (Routine) - Closed Specialty Diagnoses / Procedures Referred By Contac t Referred To Contact Diagnoses Ganglion, unspecified ankle and foot Procedures US Lower Extremity Left Limited Krys Ward NP [address] [address] Phone: tel: fax: [address] [phone] Referral ID Status Reason Start Date Expiration Date Visits Re quested Visits Authorized [id number] Closed 12/30/2018 07/10/2020 1 1 Encounter Details Date Type Department Care Team (Latest Contact Info) Description 01/01/2019 12:00 PM GROUP SEGMENT CONSULTANT - 01/01/2019 12:13 PM GROUP SEGMENT CONSULTANT Hospital Encounter [facility] [address] [place] [address] Krys Ward, BAG BLEACHER [address] [address] Ganglion, unspecified ankle and foot Discharge Disposition: Discharge to home or [...] on file Legal Sex Female 1:16 PM GROUP SEGMENT CONSULTANT Gender Identity Not on file Sexual [...] Procedure Name Priority Date/Time Associated Diagnosis Comments US LOWER EXTREMITY LEFT LIMITED Schedule Routine, Read Routine (OP Routine) 01/01/2019 12:46 PM GROUP SEGMENT CONSULTANT Ganglion, unspecified ankle and foot documented in this encounter Results * US Lower Extremity Left Limited (01/01/2019 12:46 PM GROUP SEGMENT CONSULTANT) Anatomical Region Laterality Modality Lower Extremities Left Ultrasound 01/01/2019 2:50 PM GROUP SEGMENT CONSULTANT Impressions 01/01/2019 2:53 PM GROUP SEGMENT CONSULTANT 1. ??No identifiable ganglion cyst or mass corresponding to the lump on plantar surface of foot 2nd toe region. Electronically signed by: Jhony Todd Jr., M.D. Narrative 01/01/2019 2:53 PM GROUP SEGMENT CONSULTANT US LOWER EXTREMITY LEFT LIMITED HISTORY: Ganglion, unspecified ankle and foot. Hard, tender lump on bottom of left foot just inferior to the 2nd toe. ??Patient has noticed that for 3 weeks. ??No known injury. COMPARISON: None available. FINDINGS: Grayscale real-time images were obtained. ??Scanning was performed over the area of lump plantar to the 2nd toe, revealing no discrete mass or cyst. Procedure Note Jhony Todd Jr., MD - 01/01/2019 US LOWER EXTREMITY LEFT LIMITED HISTORY: Ganglion, unspecified ankle and foot. Hard, tender lump on bottom of left foot just inferior to the 2nd toe. Patient has noticed that for 3 weeks. No known injury. COMPARISON: None available. FINDINGS: Grayscale real-time images were obtained. Scanning was performed over the area of lump plantar to the 2nd toe, revealing no discrete mass or cyst. IMPRESSION: 1. No identifiable ganglion cyst or mass corresponding to the lump on plantar surface of foot 2nd toe region. Electronically signed by: Jhony R. Schranck Jr., M.D. Krys Ward BAG BLEACHER IMG US PROCEDURES Final Resu lt documented in this encounter Visit Diagnoses Diagnosis Ganglion, unspecified ankle and foot documented in this encounter Care Teams Test Developer Relationship Specialty Start Date End Date Enma Jones MD PCP - General 10/15/18 04/18/22 documented as of this encounter
--- OUTSIDE RECORDS SUMMARY | 2024-02-12 03:39 | XMS_ITS | Encounter Summary ---
Author Organization [facility] Healthcare Address [address] [place] [address] Care Team Providers Care Dredge Pipe Installer Name Role Phone Dayan Khan NP Primary Care Provider [phone] Reason for Referral * MRI/CAT/PET Scan (Routine) - Closed Specialty Diagnoses / Procedures Referred By Contac t Referred To Contact Radiology Diagnoses Biceps muscle strain, right, initial encounter Procedures MRI Humerus Right WO Contrast [place] Phone: tel: fax: Referral ID Status Reason Start Date Expiration Date Visits Re quested Visits Authorized [id number] Closed 03/31/2017 09/27/2017 1 1 ER OPERATOR Reason for Visit * MRI/CAT/PET Scan (Routine) - Closed Specialty Diagnoses / Procedures Referred By Contac jeanne Referred To Contact Radiology Diagnoses Biceps muscle strain, right, initial encounter Procedures MRI Humerus Right WO Contrast [place] Phone: tel: fax: Referral ID Status Reason Start Date Expiration Date Visits Re quested Visits Authorized [id number] Closed 03/31/2017 09/27/2017 1 1 Encounter Details Date Type Department Care Team (Latest Contact Info) Description 03/31/2017 1:35 PM PUSHER OPERATOR - 03/31/2017 11:59 PM PUSHER OPERATOR Hospital Encounter [facility] 1 [place] [address] [place] [address] [place] [address] [address] [place] [address] Omer Frederick MD [address] [place] [address] DR TESHA Isaac [address] [place] [address] Biceps muscle strain, right, initial encounter Discharge Disposition: Discharge to home or self care Social History Tobacco Use Types Packs/Day Years Used Date Smoking Tobacco: Never Smokeless Tobacco: Never Alcohol Use Standard Drinks/Week Comments No 0 (1 standard drink = 0.6 oz pur e alcohol) Comments Unknown Sex and Gender Information Value Date Recorded Sex Assigned at Not on file Legal Sex Female 1:16 PM PUSHER OPERATOR Gender Identity Not on file Sexual Orientation Not on file documented as of this encounter Medications at Time of Discharge ARIPiprazole (ABILIFY) 5 mg tablet take 1 tablet by oral route every day 0 0 09/30/2013 acetaminophen-cod eine (TYLENOL with CODEINE #4) 300-60 [...] route every day 0 0 09/30/2013 06/05/2018 meloxicam (MOBIC) 15 mg tablet 08/15/2016 06/05/2018 [...] Priority Date/Time Associated Diagnosis Comments MRI HUMERUS RIGHT WO CONTRAST Schedule Routine, Read Routine (OP Routine) 03/31/2017 1:58 PM PUSHER OPERATOR Biceps muscle strain, right, initial encounter documented in this encounter Results * MRI Humerus Right WO Contrast (03/31/2017 1:58 PM PUSHER OPERATOR) Anatomical Region Laterality Modality Upper Extremities Right Magnetic Reson ance Impressions 04/23/2017 1:47 PM PUSHER OPERATOR No acute findings. Electronically signed by: Moise Kline M.D. Edited by: Supriya Tidwell 04/23/2017 1:47 PM PUSHER OPERATOR EXAM: MRI HUMERUS RIGHT WO CONTRAST HISTORY: [...] Diagnosis Biceps muscle strain, right, initial encounter documented in this encounter Care Teams Dredge Pipe Installer Relationship Specialty Start Date End Date Dayna Khan NP [address] [place] [address] PCP - General 05/24/16 04/08/17 documented as of this encounter
--- OUTSIDE RECORDS SUMMARY | 2024-02-12 03:39 | XMS_ITS | Encounter Summary ---
Author Organization [facility] Address [address] [facility] [facility] [address] [place] [address] Care Team Providers Care Director Of Security Name Role Phone Dylan Burrell ANCHOR TACK PULLER Primary Care Provider + Encounter Details Date Type Department Care Team (Late st Contact Info) Description 04/11/2017 Telephone [facility] Medical [facility] [address] [facility] [address] [place] [address] Omer Frederick MD [address] [place] [address] [address] [facility] [address] [place] [address] Social History Tobacco Use Types Packs/Day Years Used Date Smoking Tobacco: Never Smokeless Tobacco: Never Alcohol Use Standard Drinks/Week Comments No 0 (1 standard drink = 0.6 oz pur e alcohol) Comments Unknown Sex and Gender Information Value Date Recorded Sex Assigned at Not on file Legal Sex Female 1:16 PM INSURANCE JOB TITLES Gender Identity Not on file Sexual Orientation Not on file documented as of this encounter Miscellaneous Notes * Telephone Encounter - Britt Ruiz PA - 04/11/2017 4:59 PM INSURANCE JOB TITLES LM for patient with details of situation. RANCE JOB TITLES * Telephone Encounter - Alma Casillas - 04/11/2017 3:57 PM CST Pt is calling because she was told she would hear back about her MRI at [place], but has not heard back. She is having a lot of pain and is worried about it. She is wanting a call at [phone]. RANCE JOB TITLES documented in this encounter Plan of Treatment Not on file documented as of this encounter Visit Diagnoses Not on filedocumented in this encounter Care Teams Director Of Security Relationship Specialty Start Date End Date Dylan Burrell NP [address] [place] [address] [address] [place] [address] PCP - General Nurse Practitioner 04/09/17 06/07/18 documented as of this encounter
--- OUTSIDE RECORDS SUMMARY | 2024-02-12 03:39 | XMS_ITS | Encounter Summary ---
Author Organization [facility] Address [address] [place] [address] Care Team Providers Care Paper Stacker Name Role Phone Dylan Burrell CASINO MANAGER Primary Care Provider + Encounter Details Date Type Department Care Team (Late st Contact Info) Description 04/10/2017 Telephone [facility] Orthopedics and Sports Medicine 4 [facility] [address] [place] [address] Britt Ruiz PA [address] [facility] [address] [place], [place] [id number] Social History Tobacco Use Types Packs/Day Years Used Date Smoking Tobacco: Never Smokeless Tobacco: Never Alcohol Use Standard Drinks/Week Comments No 0 (1 standard drink = 0.6 oz pur e alcohol) Comments Unknown Sex and Gender Information Value Date Recorded Sex Assigned at Not on file Legal Sex Female 1:16 PM DIGITAL COMMUNICATIONS MANAGER Gender Identity Not on file Sexual Orientation Not on file documented as of this encounter Miscellaneous Notes * Telephone Encounter - Ellen Murphy MA - 04/10/2017 3:14 PM CST Tried to call patient, no answer. Umberto goemz said the dr that opened the MRI didn't read it or document the report and he is on vacation this week so they assigned it to another DrBriana And they will get to it as soon as possible. TAL COMMUNICATIONS MANAGER * Telephone Encounter - Britt Ruiz PA - 04/10/2017 2:34 PM DIGITAL COMMUNICATIONS MANAGER Please call patient and inform her no MRI has been read yet and you are calling to check the status TAL COMMUNICATIONS MANAGER * Telephone Encounter - Michelle Toure - 04/10/2017 1:56 PM CST Pt was calling to check on the status of her mri. States she was going to get a call back and she has still not heard anything. She can be reached at [phone] TAL COMMUNICATIONS MANAGER documented in this encounter Plan of Treatment Not on file documented as of this encounter Visit Diagnoses Not on filedocumented in this encounter Care Teams Paper Stacker Relationship Specialty Start Date End Date Dylan Burrell NP [address] [place] [address] [address], [place] [address] PCP - General Nurse Practitioner 04/09/17 06/07/18 documented as of this encounter
--- OUTSIDE RECORDS SUMMARY | 2024-02-12 03:39 | XMS_ITS | Encounter Summary ---
Author Organization [facility] Care Team Providers Care Diversity Intern Name Role Phone Dylan Burrell PARK INTERPRETIVE SPECIALIST Primary Care Provider + Encounter Details Date Type Department Care Team (Latest Contact Info) Description 06/05/2018 Travel Social History Tobacco Use Types Packs/Day Years Used Date Smoking Tobacco: Every Day Cigarettes Smokeless Tobacco: Never Alcohol Use Standard Drinks/Week Comments No 0 (1 standard drink = 0.6 oz pur e alcohol) Comments No Sex and Gender Information Value Date Recorded Sex Assigned at Not on file Legal Sex Female 1:16 PM CREATIVE SERVICES MANAGER Gender Identity Not on file Sexual Orientation Not on file documented as of this encounter Plan of Treatment Not on file documented as of this encounter Visit Diagnoses Not on filedocumented in this encounter Care Teams Diversity Intern Relationship Specialty Start Date End Date Dylan Burrell NP [address] [place] [address] [address] [place] [id number] PCP - General Nurse Practitioner 04/09/17 06/07/18 documented as of this encounter
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
--- OUTSIDE RECORDS SUMMARY | 2024-02-12 03:39 | XMS_ITS | Encounter Summary ---
Author Organization [facility] Medical Group Address [address] [place] [address] Care Team Providers Care Vp Global Name Role Phone Dylan Burrell NP Primary Care Provider + Reason for Visit * Reason Comments Pain Encounter Details Date Type Department Care Team (Late st Contact Info) Description 04/09/2017 3:30 PM FINGERNAIL SCULPTURER Office Visit [facility] Medical [facility] [address] [place] [id number] Britt Ruiz PA [address] [facility] [address] [place] [address] Biceps strain, right, subsequent encounter (Primary Dx) Social History Tobacco Use Types Packs/Day Years Used Date Smoking Tobacco: Never Smokeless Tobacco: Never Alcohol Use Standard Drinks/Week Comments No 0 (1 standard drink = 0.6 oz pur e alcohol) Comments Unknown Sex and Gender Information Value Date Recorded Sex Assigned at Not on file Legal Sex Female 1:16 PM FINGERNAIL SCULPTURER Gender Identity Not on file Sexual Orientation Not on file documented as of this encounter Last Filed Vital Signs Vital Sign Reading Time Taken Comments Blood Pressure 120/79 04/09/2017 3:51 PM FINGERNAIL SCULPTURER Pulse 88 04/09/2017 3:51 PM FINGERNAIL SCULPTURER Temperature - - Respiratory Rate - - Oxygen Saturation - - Inhaled Oxygen Concentration - - Weight 88.9 kg (196 lb) 04/09/2017 3:51 PM FINGERNAIL SCULPTURER Height 157.5 cm (5' 2 ) 04/09/2017 3:51 PM FINGERNAIL SCULPTURER Body Mass Index 35.85 04/09/2017 3:51 PM FINGERNAIL SCULPTURER documented in this encounter Progress Notes * Britt Ruiz PA - 04/09/2017 3:30 PM CST Images from the original note were not included. FOLLOW UP VISIT Subjective CHIEF COMPLAINT She had concerns including Pain of the Right Arm. HISTORY OF PRESENT ILLNESS Patient presents for follow up on her right arm. Patient was seen previously by Kevin Ha PA-C and was diagnosed with biceps strain, due to painful pop while lifting her arm holding a gallon of milk. Patient has been advised to wear a sling for comfort and apply ice and OTC NSAIDS. She has been compliant with the restrictions. MRI was ordered last visit Of her humerus to look at the integrity of per muscle. She states her pain is severe today and is unable to function due to pain. Patient is very emotional today in office. Pain Assessment Pain Assessment: 0-10 Pain Score: 8 MEDICATIONS She has a current medication list [...] is not hyperactive. Objective PHYSICAL EXAM BP 120/79 Pulse 88 Ht 157.5 cm (5' 2 ) Wt [...] painful EPL: 5/5 and pain free Neurovascular The patient has normal vascular on the right side of their body. The patient has normal sensation. REVIEW OF X-RAYS/STUDIES/LABS Assessment/Plan [place] was seen today for pain. Diagnoses and all orders for this visit: Biceps strain, right, subsequent encounter Procedures PLAN Reviewed images with patient. MRI report unavailable from [place] at time of appointment. MRI reviewed with Dr. Guillory and myself, showing edema around medial biceps, proximal attachment hard tovisualize on MRI. Patient advised to continue with previous instructions with OTC NSAIDS, ice and sling for comfort. Patient to FU with Kevin Ha PA-C in 10-14 days for re-evaluation. Will call patient once final report is read from radiologist. Patient was in full agreement of this plan, she is to call if symptoms progress or worsen. TYLER Ye Cosigned by Omer Frederick MD at 04/10/2017 8:09 AM FINGERNAIL SCULPTURER ERNAIL SCULPTURER ERNAIL SCULPTURER documented in this encounter Plan of Treatment Not on file documented as of this encounter Visit Diagnoses Diagnosis Biceps strain, right, subsequent encounter- Primary documented in this encounter Historical Medications * This list may reflect changes made after this encounter. metFORMIN (GLUCOPHAGE) 1,000 mg tablet Take 1,000 mg by mouth. insulin aspart (NovoLOG) 100 unit/mL injection Inject under the skin. 03/01/2022 gabapentin (NEURONTIN) 300 mg capsule 02/10/2017 06/05/2018 added in this encounter Care Teams Vp Global Relationship Specialty Start Date End Date Dylan Burrell NP [address] [place] [address] [address] [place] [address] PCP - General Nurse Practitioner 04/09/17 06/07/18 documented as of this encounter
--- OUTSIDE RECORDS SUMMARY | 2024-02-12 03:40 | XMS_ITS | Encounter Summary ---
Author Organization [facility] Address [address] [place] [address] Care Team Providers Care Lighting Technician Name Role Phone Dayan Khan NP Primary Care Provider [phone] Encounter Details Date Type Department Care Team (Late st Contact Info) Description 07/31/2016 9:06 AM CDT - 07/31/2016 11:59 PM CDT Hospital Encounter [facility] Antoine Spencer MD [address] [address] Domenica Foy NP [address] [place] [address] Discharge Disposition: Discharge to home or self care Social History Tobacco Use Types Packs/Day Years Used Date Smoking Tobacco: Never Alcohol Use Standard Drinks/Week Comments No 0 (1 standard drink = 0.6 oz pur e alcohol) Comments Unknown Sex and Gender Information Value Date Recorded Sex Assigned at Not on file 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 Gender Identity Not on file Sexual Orientation Not on file documented as of this encounter Medications at Time of Discharge ARIPiprazole (ABILIFY) 5 mg tablet take 1 tablet by oral route every day 0 0 09/30/2013 acetaminophen-cod eine (TYLENOL with CODEINE #3) 300-30 mg per tablet take 1 tablet by oral route every 6 hours as needed 0 0 01/23/2016 09/11/2016 cyclobenzaprine (FLEXERIL) 5 mg tablet take 1 tablet by oral route 3 times every day 0 0 09/30/2013 09/11/[address] (CYMBALTA) 20 mg capsule take 1 capsule by oral route 2 times every day 0 0 12/28/2015 09/11/2016 fluconazole (DIFLUCAN) 150 mg tablet 06/19/2016 06/05/2018 glimepiride (AMARYL) 2 mg tablet take 1 tablet by oral route every day 0 0 09/30/2013 06/05/2018 PARoxetine (PAXIL) 10 mg tablet take 1 tablet by oral route every day 0 0 09/30/2013 09/11/2016 prazosin (MINIPRESS) 1 mg capsule take 1 capsule by oral route at hs 0 0 10/21/2013 06/05/2018 simvastatin (ZOCOR) 20 mg tablet take 1 tablet by oral route every day in the evening 0 0 09/30/2013 06/05/2018 traMADol (ULTRAM) 50 mg tablet [...] Procedure Name Priority Date/Time Associated Diagnosis Comments EMG/NCV Routine 07/31/2016 3:25 PM CDT documented in this encounter Results * EMG (07/31/2016 3:25 PM CDT) Anatomical Region Laterality Modality Other 07/31/2016 3:25 PM CDT Narrative 07/31/2016 3:25 PM CDT EMG ??Acc#: ??[id number] DATE OF EXAM: ??Govind ??2016 ?? CLINICAL HISTORY: ? This is a 40 year old patient with history of tingling and numbness of hands. This study was ordered for evaluation of entrapment neuropathy. RESULT: RIGHT ? AMP ??LATENCY CV ? Median motor Wrist APB ??5.6 ??3.05 Median motor Elbow APB ??3.9 ??7.35 53.5 F-wave ??Wrist APB ?25.15 Median sensory Palmar ?? 56.4 ??2.00 59.3 Ulnar motor ??Wrist ADQ ??8.9 ??2.55 Ulnar motor Elbow ADQ ??7.1 ??6.30 58.7 Above ?? Elbow ADQ ??8.2 ??8.20 56.6 F-wave ??Wrist ADQ ?25.85 Ulnar sensory Palmar ?? 20.7 ??1.60 66.7 Median radial dig 1 ? 53.9 ?2.75 ??50.0 Radial Radial ? 60.5 ??2.05 ??66.7 LEFT ? AMP ??LATENCY CV ? Median motor Wrist APB ??8.5 ??3.10 Median motor Elbow APB ??8.1 ??7.20 56.1 F-wave ??Wrist APB ?26.80 Median sensory Palmar ?? 52.7 ??2.00 53.3 Ulnar motor ??Wrist ADQ ??7.7 ??2.65 Ulnar motor Elbow ADQ ??7.6 ??6.10 63.8 Above ?? Elbow ADQ ??6.9 ??8.30 56.6 F-wave ??Wrist ADQ ?25.05 Ulnar sensory Palmar ?? 18.6 ??1.85 55.2 Median radial dig 1 ? 63.0 ?2.55 ??55.6 Radial Radial ? 76.3 ??1.85 ??76.9 Bilateral median and bilateral ulnar orthodromic sensory nerve conduction studies showed normal SNAP peak latencies, amplitudes and sensory nerve conduction velocities. Right median and right radial sensory nerve SNAP peak latency comparison study using ring electrode showed SNAP peak latency 2.75 for the right median nerve and 2.05 for the right radial nerve. ??Left median and left radial sensory nerve SNAP peak latency comparison study using ring electrode showed SNAP peak latency 2.55 for the left median nerve and 1.85 for the left radial nerve. ??Bilateral median and bilateral ulnar motor nerve conduction studies showed normal DMLs, CMAP amplitudes, motor nerve conduction velocities and F-wave latencies. ?? EMG: ??The concentric needle electrode examination was performed on right FDI, APB, flexor carpi radialis, biceps and deltoid. ??There was no evidence of acute or chronic denervation or reinnervation. ??The interference pattern is full in all muscles tested. IMPRESSION: ? THIS IS A SLIGHTLY ABNORMAL STUDY. ??THERE WAS ELECTROPHYSIOLOGICAL EVIDENCE SUGGESTIVE OF VERY MILD BILATERAL MEDIAN SENSORY ENTRAPMENT NEUROPATHY AT THE FLEXOR RETINACULUM, FOR EXAMPLE CARPAL TUNNEL SYNDROME. THE NEEDLE EMG STUDY DID NOT SHOW ANY ONGOING DENERVATION. CLINICAL CORRELATION IS RECOMMENDED. Interpreting Physician: ??DR JORGE PARKER M.D. ??Read on: ??Jul ??2016 10:25A Transcribed by: ??[facility] ??On: Jul ??2016 ??2:53P Approved Electronically by: ??ELENA Garcia, DR PATEL ??on: ??Aug ??2016 ??9:23P Ordering DR: DOMENICA FOY Attending DR: DOMENICA FOY Attending: ??DOMENICA FOY Requesting: ??DOMENICA FOY Requesting Fax: ??[phone] Attending Fax: ??[phone] Attending ID: ??[id number] Requesting ID: ??[id number] Report To 1 ID: ??[id number] Report To 1 Name: ??DOMENICA FOY Report To 1 FAX: ??[phone] NextGen Order #: ?? Procedure Note Miscellaneous, Not In File - 08/29/2016 EMG Acc#: [id number] DATE OF EXAM: Jul 31 2016 CLINICAL HISTORY: This is a 40 year old patient with history of tingling and numbness of hands. This study was ordered for evaluation of entrapment neuropathy. RESULT: RIGHT AMP LATENCY CV Median motor Wrist APB 5.6 3.05 Median motor Elbow APB 3.9 7.35 53.5 F-wave Wrist APB 25.15 Median sensory Palmar 56.4 2.00 59.3 Ulnar motor Wrist ADQ 8.9 2.55 Ulnar motor Elbow ADQ 7.1 6.30 58.7 Above Elbow ADQ 8.2 8.20 56.6 F-wave Wrist ADQ 25.85 Ulnar sensory Palmar 20.7 1.60 66.7 Median radial dig 1 53.9 2.75 50.0 Radial Radial 60.5 2.05 66.7 LEFT AMP LATENCY CV Median motor Wrist APB 8.5 3.10 Median motor Elbow APB 8.1 7.20 56.1 F-wave Wrist APB 26.80 Median sensory Palmar 52.7 2.00 53.3 Ulnar motor Wrist ADQ 7.7 2.65 Ulnar motor Elbow ADQ 7.6 6.10 63.8 Above Elbow ADQ 6.9 8.30 56.6 F-wave Wrist ADQ 25.05 Ulnar sensory Palmar 18.6 1.85 55.2 Median radial dig 1 63.0 2.55 55.6 Radial Radial 76.3 1.85 76.9 Bilateral median and bilateral ulnar orthodromic sensory nerve conduction studies showed normal SNAP peak latencies, amplitudes and sensory nerve conduction velocities. Right median and right radial sensory nerve SNAP peak latency comparison study using ring electrode showed SNAP peak latency 2.75 for the right median nerve and 2.05 for the right radial nerve. Left median and left radial sensory nerve SNAP peak latency comparison study using ring electrode showed SNAP peak latency 2.55 for the left median nerve and 1.85 for the left radial nerve. Bilateral median and bilateral ulnar motor nerve conduction studies showed normal DMLs, CMAP amplitudes, motor nerve conduction velocities and F-wave latencies. EMG: The concentric needle electrode examination was performed on right FDI, APB, flexor carpi radialis, biceps and deltoid. There was no evidence of acute or chronic denervation or reinnervation. The interference pattern is full in all muscles tested. IMPRESSION: THIS IS A SLIGHTLY ABNORMAL STUDY. THERE WAS ELECTROPHYSIOLOGICAL EVIDENCE SUGGESTIVE OF VERY MILD BILATERAL MEDIAN SENSORY ENTRAPMENT NEUROPATHY AT THE FLEXOR RETINACULUM, FOR EXAMPLE CARPAL TUNNEL SYNDROME. THE NEEDLE EMG STUDY DID NOT SHOW ANY ONGOING DENERVATION. CLINICAL CORRELATION IS RECOMMENDED. Interpreting Physician: DR JORGE PARKER M.D. Read on: Jul 31 201610:25A Transcribed by: leonid On: Jul 31 2016 2:53P Approved Electronically by: ELENA Garcia, DR PATEL on: Aug 29 20169:23P Ordering DR: DOMENICA FOY Attending DR: DOMENICA FOY Attending: DOMENICA FOY Requesting: DOMENICA FOY Requesting Attending Attending ID: [id number] Requesting ID: [id number] Report To 1 ID: [id number] Report To 1 Name: DOMENICA FOY Report To 1 FAX: [phone] NextGen Order #: [id number] Domenica Foy HEALTH INFORMATION ASSISTANT NEUROLOGY ORDERABLES Final Res ult documented in this encounter Visit Diagnoses Not on filedocumented in this encounter Care Teams Lighting Technician Relationship Specialty Start Date End Date Dayan Khan, HEALTH INFORMATION [place]IST[place] [place] [address] PCP - General 05/24/16 04/08/17 documented as of this encounter
--- OUTSIDE RECORDS SUMMARY | 2024-02-12 03:40 | XMS_ITS | Encounter Summary ---
Author Organization [facility] Healthcare Address [address] [place] [address] Care Team Providers Care Pad Extraction Tender Name Role Phone Dayan Khan NP Primary Care Provider [phone] Encounter Details Date Type Department Care Team (Latest Contact Info) Description 02/03/2017 6:55 PM ASE CERTIFIED TECHNICIAN - 02/03/2017 11:59 PM ASE CERTIFIED TECHNICIAN Hospital Encounter [address] [address] Domenica Foy, GRACE [address] [place] [address] Lumbar radiculopathy Discharge Disposition: Discharge to home or self care Social History Tobacco Use Types Packs/Day Years Used Date Smoking Tobacco: Never Smokeless Tobacco: Never Alcohol Use Standard Drinks/Week Comments No 0 (1 standard drink = 0.6 oz pur e alcohol) Comments Unknown Sex and Gender Information Value Date Recorded Sex Assigned at Not on file 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 ??L4-L5 annular tear again noted. 2. ??No central canal or neuroforaminal narrowing noted. Electronically signed by: Moise Kline M.D. Narrative 02/03/2017 9:10 PM ASE CERTIFIED TECHNICIAN MRI LUMBAR SPINE WO CONTRAST HISTORY: Radiculopathy, lumbar region COMPARISON: 08/15/2016 TECHNIQUE: Axial T1 and T2; sagittal T1, T2, and inversion recovery FINDINGS: Linear high signal is again noted in the L4-L5 disc consistent with an annular tear. ??No acute fractures, subluxations, or wedge compression deformities are seen. ?? The vertebral body heights and bony alignment are normal. ?? No abnormal marrow signal is seen. ??The conus with normal size and signal intensity ends at the T12/L1 interspace. Segmental analysis: At L1-L2, no central canal or neural foraminal narrowing is seen. At L2-L3, no central canal or neural foraminal narrowing is seen. At L3-L4, no central canal or neural foraminal narrowing is seen. At L4-L5, a diffuse disc protrusion is noted without significant central canal or neuroforaminal narrowing seen. At L5-S1, a central disc protrusion is present without central canal or neuroforaminal narrowing seen. Procedure Note Moise Kline MD - 02/03/2017 MRI LUMBAR SPINE WO CONTRAST HISTORY: Radiculopathy, lumbar region COMPARISON: 08/15/2016 TECHNIQUE: Axial T1 and T2; sagittal T1, T2, and inversion recovery FINDINGS: Linear high signal is again noted in the L4-L5 disc consistent with an annular tear. No acute fractures, subluxations, or wedge compression deformities are seen. The vertebral body heights and bony alignment are normal. No abnormal marrow signal is seen. The conus with normal size and signal intensity ends at the T12/L1 interspace. Segmental analysis: At L1-L2, no central canal or neural foraminal narrowing is seen. At L2-L3, no central canal or neural foraminal narrowing is seen. At L3-L4, no central canal or neural foraminal narrowing is seen. At L4-L5, a diffuse disc protrusion is noted without significant central canal or neuroforaminal narrowing seen. At L5-S1, a central disc protrusion is present without central canal or neuroforaminal narrowing seen. IMPRESSION: 1. L4-L5 annular tear again noted. 2. No central canal or neuroforaminal narrowing noted. Electronically signed by: Moise Kline M.D. Domenica Foy PIPE FITTER SUPERVISOR MAINTENANCE IMG MRI PROCEDURES Final Resul t documented in this encounter Visit Diagnoses Diagnosis Lumbar radiculopathy Thoracic or lumbosacral neuritis or radiculitis, unspecified documented in this encounter Care Teams Pad Extraction Tender Relationship Specialty Start Date End Date Dayan Khan PIPE FITTER SUPERVISOR MAINTE[place] [address] [address] PCP - General 05/24/16 04/08/17 documented as of this encounter
--- OUTSIDE RECORDS SUMMARY | 2024-02-12 03:40 | XMS_ITS | Encounter Summary ---
Author Organization [facility] Healthcare Address [address] [place] [address] Care Team Providers Care Rip Saw Operator Name Role Phone Dayan Khan NP Primary Care Provider [phone] Encounter Details Date Type Department Care Team (Late st Contact Info) Description 12/28/2015 6:35 PM CDT - 12/28/2015 9:55 PM CDT Hospital Encounter [facility] Dylan Castrejon MD [address] [place] [address] Type 2 diabetes mellitus with hyperglycemia (CMS/HCC); Adverse effect of glucocorticoid or synthetic analogue; Other specified places as the place of occurrence of the external cause; Nicotine dependence, uncomplicated; Obesity; exterminator helper current use of insulin (CMS/HCC); residential current use of aspirin; exterminator helper current use of oral hypoglycemic drug; Exposure to other specified factors, initial encounter Social History Tobacco Use Types Packs/Day Years Used Date Smoking Tobacco: Never Alcohol Use Standard Drinks/Week Comments No 0 (1 standard drink = 0.6 oz pur e alcohol) Comments Unknown Sex and Gender Information Value Date Recorded Sex Assigned at Not on file 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 Gender Identity Not on file Sexual Orientation Not on file documented as of this encounter Medications at Time of Discharge ARIPiprazole (ABILIFY) 5 mg tablet take 1 tablet by oral route every day 0 0 09/30/2013 cyclobenzaprine (FLEXERIL) 5 mg tablet take 1 tablet by oral route 3 times every day 0 0 09/30/2013 09/11/[address] (CYMBALTA) 20 mg capsule take 1 capsule by oral route 2 times every day 0 0 12/28/2015 09/11/2016 glimepiride (AMARYL) 2 mg tablet take 1 [...] 09/30/2013 03/01/2022 documented as of this encounter Plan of Treatment Not on file documented as of this encounter Procedures Procedure Name Priority Date/Time Associated Diagnosis Comments BLOOD GLUCOSE, POC Routine 12/28/2015 9: 42 PM CDT BLOOD GLUCOSE, POC Routine 12/28/2015 8: 46 PM CDT SERUM ESTIMATED GLOMERULAR FILTRATION RATE Routine 12/28/2015 7:57 PM CDT PLASMA TROPONIN-T Routine 12/28/2015 7:5 7 PM CDT PLASMA COMPREHENSIVE METABOLIC PANEL Routine 12/28/2015 7:57 PM CDT BLOOD CELL COUNT (CBC) Routine 6 7:57 PM CDT BLOOD CELL MORPHOLOGIC EXAM Routine 12/28/2015 7:57 PM CDT BLOOD GLUCOSE, POC Routine 12/28/2015 7: 26 PM CDT URINALYSIS Routine 12/28/2015 7:20 PM CDT ELECTROCARDIOGRAPHY (ECG) 12/28/2015 DISCHARGE LABORATORY CUMULATIVE REPORT 12/28/2015 documented in this encounter Results * (ABNORMAL) Blood glucose, POC (12/28/2015 9:42 PM CDT) Glucose, POC, bld 190(H) 71 - 98 mg/dl CDR HISTORICAL RESULTS Blood specimen (specimen) 12/28/2015 9:42 PM CDT us Historical Provider MD LAB BLOOD ORDERABLES Candy l Result CDR HISTORICAL RESULTS * (ABNORMAL) Blood glucose, POC (12/28/2015 8:46 PM CDT) Glucose, POC, bld 197(H) 71 - 98 mg/dl CDR HISTORICAL RESULTS Blood specimen (specimen) 12/28/2015 8:46 PM CDT us Historical Provider LAB BLOOD ORDERABLES Candy l Result CDR HISTORICAL RESULTS * (ABNORMAL) Plasma comprehensive metabolic panel (12/28/2015 7:57 PM CDT) Sodium 136 135 - 145 mmol/L CDR HISTORICAL RESULTS K, pl 4.3 3.5 - 5.1 mmol/L CDR HISTORICAL RESULTS Chloride 101 97 - 110 mmol/L CDR HISTORICAL RESULTS CO2 22 22 - 32 mmol/L CDR HISTORICAL RESULTS A. gap 17(H) 8 - 16 mmol/L CDR HISTORICAL RESULTS Glucose 411(H) 70 - 199 mg/dl CDR HISTORICAL RESULTS Comment: Interpretive Data Note:The glucose is assumed non fasting Fastin-99 mg/dL Random: ??70-199 mg/dL Either a fasting glucose > 126 mg/dL or a random glucose > 200 mg/dL plus symptoms is diagnostic of diabetes when confirmed on another day. Fasting values > 100 mg/dL but < 125 mg/dL are diagnostic of impaired fasting glucose. Current interpretive data was last revised on 2014. BUN 8.3 8.0 - 25.0 mg/dl CDR HISTORICAL RESULTS Creatinine 0.47(L) 0.60 - 1.10 mg/dl CDR HISTORICAL RESULTS BUN/creat ratio 18 10 - 20 CDR HISTORICAL RESULTS Calcium 9.0 8.6 - 10.2 mg/dl CDR HISTORICAL RESULTS Protein, sr 6.7 6.0 - 8.4 g/dl CDR HISTORICAL RESULTS Alb 3.8 3.6 - 5.0 g/dl CDR HISTORICAL RESULTS Alk phos 68 40 - 130 Units/L CDR HISTORICAL RESULTS ALT 147(H) 5 - 45 Units/L CDR HISTORICAL RESULTS AST 80(H) 10 - 40 Units/L CDR HISTORICAL RESULTS Bilirubin 0.6 <=1.2 mg/dl CDR HISTORICAL RESULTS Plasma 12/28/2015 7:57 PM CDT Result [facility] Historical Provider MD LAB BLOOD ORDERABLES Candy l Result Performing Organization Address [facility] Co de Phone Number CDR HISTORICAL RESULTS * Plasma troponin-T (12/28/2015 7:57 PM CDT) Pathologist [facility] Troponin T <0.01 0.00 - 0.06 ng/ml CDR HISTORICAL RESULTS Comment: Interpretive Data Troponin table: ? Negative ? 0.00-0.06 ng/ml ? Indeterminate ?0.07-0.10 ng/ml ? Consistent with Myocardial Injury ?Greater than 0.10 ng/ml ?? Current interpretive data was last revised on 2014 Plasma 12/28/2015 7:57 PM CDT Historical Provider MD LAB BLOOD ORDERABLES Candy l Result Performing Organization Address [facility] [[email or web address]] de Phone Number CDR HISTORICAL RESULTS * Blood cell count (CBC) (12/28/2015 7:57 PM CDT) Pathologist [facility] WBC 9.1 3.8 - 9.8 K/cumm CDR HISTORICAL RESULTS RBC 4.96 3.90 - 5.00 M/cumm CDR HISTORICAL RESULTS Hgb 14.0 12.1 - 15.1 g/dl CDR HISTORICAL RESULTS Hct 40.7 36.1 - 44.3 % CDR HISTORICAL RESULTS MCV 82.1 80.0 - 100.0 fl CDR HISTORICAL RESULTS MCH 28.2 26.7 - 33.7 pg CDR HISTORICAL RESULTS MCHC 34.4 32.7 - 36.0 g/dl CDR HISTORICAL RESULTS Rdw 13.1 11.5 - 14.6 % CDR HISTORICAL RESULTS Platelets 258 140 - 440 K/cumm CDR HISTORICAL RESULTS MPV 10.1 8.0 - 12.0 fl CDR HISTORICAL RESULTS NRBC 0.0 0.0 - 0.0 % CDR HIST ORICAL RESULTS NRBC, abs 0.00 0.00 - 0.00 K/cumm CDR HISTORICAL RESULTS Blood specimen (specimen) 12/28/2015 7:57 PM CDT us Historical Provider LAB BLOOD ORDERABLES Candy l Result CDR HISTORICAL RESULTS * Blood cell morphologic exam (12/28/2015 7:57 PM CDT) Pathologist [facility] Neutrophils 61.2 44.0 - 80.0 % CDR HISTORICAL RESULTS Immature granulocytes 0.2 0.0 - 1.0 % CDR HISTORICAL RESULTS Lymphocytes 26.9 13.0 - 44.0 % CDR HISTORICAL RESULTS Monos 6.5 2.0 - 11.0 % CDR HISTORICAL RESULTS Eosinophils 4.5 0.0 - 6.0 % CDR HISTORICAL RESULTS Basophils 0.7 0.0 - 3.0 % CDR HISTORICAL RESULTS Neutrophils, abs 5.5 1.6 - 7.0 K/cumm CDR HISTORICAL RESULTS Immature granulocyte, abs 0.0 0.0 - 0.2 K/cumm CDR HISTORICAL RESULTS Lymphocytes, abs 2.4 0.5 - 4.3 K/cumm CDR HISTORICAL RESULTS Monocytes, absolute 0.6 0.1 - 1.0 K/cumm CDR HISTORICAL RESULTS Eosinophils, abs 0.4 0.0 - 0.6 K/cumm CDR HISTORICAL RESULTS Basophils, abs 0.1 0.0 - 0.3 K/cumm CDR HISTORICAL RESULTS Blood specimen (specimen) 12/28/2015 7:57 PM CDT Result [facility] Provider LAB BLOOD ORDERABLES Candy l Result Performing Organization Address [facility] Phone Number CDR HISTORICAL RESULTS * Serum estimated glomerular filtration rate (12/28/2015 7:57 PM CDT) eGFR >60 ml/min/1.7 3 m2 CDR HISTORICAL RESULTS Comment: Interpretation of Estimated GFR (eGFR): Normal ?>/= 60 mL/min/1.73m2 Possible Chronic Kidney Disease ??15 - 59 mL/min/1.73m2 Possible Kidney Failure ?< 15 ??mL/min/1.73m2 If -Belarusian multiply value by 1.16. ??Estimated glomerular filtration rate is determined by the CKD-EPI equation recommended by the National Kidney Foundation (KDIGO 2012 Clinical Practice Guideline for the Evaluation and Management of Chronic Kidney Disease. ??Kidney Intnl Suppl Feb 2012;3:1). ??The CKD-EPI equation should not be used in acute renal failure or acute kidney injury and is not valid in children. Serum 12/28/2015 7:57 PM CDT Result [facility] Provider LAB BLOOD ORDERABLES Candy l Result Performing Organization Address [facility] Phone Number CDR HISTORICAL RESULTS * (ABNORMAL) Blood glucose, POC (12/28/2015 7:26 PM CDT) Glucose, POC, bld 370(C) 71 - 98 mg/dl CDR HISTORICAL RESULTS Blood specimen (specimen) 12/28/2015 7:26 PM CDT Result [facility] Provider LAB BLOOD ORDERABLES Candy l Result Performing Organization Address [facility] [[email or web address]] de Phone Number CDR HISTORICAL RESULTS * (ABNORMAL) Urinalysis (12/28/2015 7:20 PM CDT) Color, ur Yellow Yellow CDR HISTOR ICAL RESULTS Clarity, ur Clear Clear CDR HIST ORICAL RESULTS Specific gravity, ur >1.030(A) 1.003 - 1.030 CDR HISTORICAL RESULTS Comment:Normal Ranges: 1.003 -1.030 pH, ur 5.0 4.5 - 8.0 CDR HISTOR ICAL RESULTS Comment:Normal ranges: 4.5-8 .0 Protein, ur, quant Negative Negative mg/dl CDR HISTORICAL RESULTS Glucose, ur, quant >=1000(A) Negative mg/dl CDR HISTORICAL RESULTS Ketones, ur Negative Negative CDR HIST ORICAL RESULTS Bilirubin, ur Negative Negative CDR HI STORICAL RESULTS U Blood Negative Negative CDR HISTOR ICAL RESULTS Urobilinogen, quant, ur 0.2 0.2 - 1.0 Yazan Units/dl CDR HISTORICAL RESULTS Comment:Normal Ranges: 0.2-1 .0 EU/dL Nitrites, ur Negative Negative CDR HIS TORICAL RESULTS Leukocyte esterase, ur Negative Negative CDR HISTORICAL RESULTS Urine 12/28/2015 7:20 PM CDT [facility] Provider LAB BLOOD ORDERABLES Candy l Result CDR HISTORICAL RESULTS * DISCHARGE LABORATORY CUMULATIVE REPORT (12/28/2015) Narrative 12/28/2015 Ordered by an unspecified provider. [facility] Provider LAB BLOOD ORDERABLES Candy l Result * ELECTROCARDIOGRAPHY (ECG) (12/28/2015) Narrative 12/28/2015 Ordered by an unspecified provider. [facility] Provider ECG ORDERABLES Final Res ult documented in this encounter Visit Diagnoses Diagnosis Type 2 diabetes mellitus with hyperglycemia (CMS/HCC) (HCC) Adverse effect of glucocorticoid or synthetic analogue Other specified places as the place of occurrence of the external cause Nicotine dependence, uncomplicated Obesity Obesity, unspecified exterminator helper current use of insulin (CMS/HCC) (HCC) exterminator helper current use of aspirin exterminator helper current use of oral hypoglycemic drug Exposure to other specified factors, initial encounter documented in this encounter Care Teams Rip Saw Operator Relationship Specialty Start Date End Date Dayan Khan NP [address] [place] [address] PCP - General 12/28/15 05/09/16 documented as of this encounter
--- OUTSIDE RECORDS SUMMARY | 2024-02-12 03:40 | XMS_ITS | Encounter Summary ---
Author Organization [facility] Healthcare Address [address] [place] [address] Care Team Providers Care Farebox Repairer Name Role Phone Dayan Khan NP Primary Care Provider [phone] Encounter Details Date Type Department Care Team (Late st Contact Info) Description 08/15/2016 9:42 AM CDT - 08/15/2016 11:59 PM CDT Hospital Encounter [facility] INTERIM Antoine Spencer MD [address] [place] [address] Domenica Foy NP [address] [place] [address] Discharge Disposition: Discharge to home or self care Social History Tobacco Use Types Packs/Day Years Used Date Smoking Tobacco: Never Alcohol Use Standard Drinks/Week Comments No 0 (1 standard drink = 0.6 oz pur e alcohol) Comments Unknown Sex and Gender Information Value Date Recorded Sex Assigned at Not on file Legal Sex Female 1:16 PM YOUTH MINISTER Gender Identity Not on file Sexual Orientation Not on file documented as of this encounter Medications at Time of Discharge ARIPiprazole (ABILIFY) 5 mg tablet take 1 tablet by oral route every day 0 0 09/30/2013 acetaminophen-cod eine (TYLENOL with CODEINE #3) 300-30 mg per tablet take 1 tablet by oral route every 6 hours as needed 0 0 01/23/2016 09/11/2016 acetaminophen-cod eine (TYLENOL with CODEINE #4) 300-60 mg per tablet 08/08/2016 06/05/2018 cyclobenzaprine (FLEXERIL) 10 mg tablet 08/08/2016 03/01/2022 cyclobenzaprine (FLEXERIL) 5 mg tablet take 1 tablet by oral route 3 times every day 0 0 09/30/2013 09/11/[address] (CYMBALTA) 20 mg capsule take 1 capsule by oral route 2 times every day 0 0 12/28/2015 09/11/[address] (CYMBALTA) 30 mg capsule 08/10/2016 03/01/2022 fluconazole (DIFLUCAN) 150 mg tablet 06/19/2016 06/05/2018 glimepiride (AMARYL) 2 mg tablet take 1 tablet by oral route every day 0 0 09/30/2013 06/05/2018 meloxicam (MOBIC) 15 mg tablet 08/15/2016 06/05/2018 mirtazapine (REMERON) 15 mg tablet 08/10/2016 06/05/2018 PARoxetine (PAXIL) 10 mg tablet take [...] Diagnosis Comments MRI LUMBAR SPINE WO CONTRAST Routine 08/15/2016 3:13 PM CDT documented in this encounter Results * MRI Lumbar Spine WO Contrast (08/15/2016 3:13 PM CDT) Anatomical Region Laterality Modality Spine N/A Magnetic Resonan ce 08/15/2016 3:13 PM CDT Narrative 08/15/2016 3:13 PM CDT MR Lumbar Spine WO ??Acc#: ??[id number] DATE OF EXAM: ??Aug 15 2016 ?? MR Lumbar Spine WO HISTORY: lumbar radicular pain. ??Lower back and right leg pain and numbness. TECHNIQUE: Sagittal T1, T2, STIR, axial T1 and T2. COMPARISON: None available. FINDINGS: And annular fissure seen within the posterior aspect of the disc at L4-L5. ??Desiccation of the disc at L4-L5. ??Mild posterior disc protrusion versus herniation at L4-L5 which is most prominent centrally extending paracentral regions. ??This causes mild encroachment upon the thecal sac, and some mild foraminal narrowing, somewhat more so on the left than the right. ??No other significant disc bulging or herniation. ??Vertebral body heights are maintained. Borderline to mild central canal stenosis at L4-L5. IMPRESSION: DEGENERATIVE DISC DISEASE AT L4-L5 WITH ANNULAR FISSURE. MILD POSTERIOR DISC PROTRUSION VERSUS HERNIATION WHICH IS MOST PROMINENT CENTRALLY. ??THIS CAUSES MILD ENCROACHMENT UPON THE THECAL SAC. ??BORDERLINE TO MILD CENTRAL CANAL STENOSIS AT THIS LEVEL, AND SOME MILD FORAMINAL NARROWING. Electronically signed by: Ana Laura Coppola M.D ? Interpreting Physician: ??ANA LAURA COPPOLA M.D. ??Read on: ??Aug 15 2016 11:59A Transcribed by: ??PSC ??On: Aug 15 2016 11:57A Approved Electronically by: ??ANA LAURA COPPOLA M.D. ??on: ??Aug 15 2016 11:57A Ordering DR: DOMENICA FOY Attending DR: DOMENICA FOY Attending: ??DOMENICA FOY Requesting: ??DOMENICA FOY Requesting Fax: ??[phone] Attending Fax: ??[phone] Attending ID: ??[id number] Requesting ID: ??[id number] Report To 1 ID: ??[id number] Report To 1 Name: ??DOMENICA FOY Report To 1 FAX: ??[phone] NextGen Order #: ?? Procedure Note Miscellaneous, Not In File / Provider, MD Eloisa - 08/15/2016 MR Lumbar Spine WO Acc#: [id number] DATE OF EXAM: Aug 15 2016 MR Lumbar Spine WO HISTORY: lumbar radicular pain. Lower back and right leg pain and numbness. TECHNIQUE: Sagittal T1, T2, STIR, axial T1 and T2. COMPARISON: None available. FINDINGS: And annular fissure seen within the posterior aspect of the disc at L4-L5. Desiccation of the disc at L4-L5. Mild posterior disc protrusion versus herniation at L4-L5 which is most prominent centrally extending paracentral regions. This causes mild encroachment upon the thecal sac, and some mild foraminal narrowing, somewhat more so on the left than the right. No other significant disc bulging or herniation. Vertebral body heights are maintained. Borderline to mild central canal stenosis at L4-L5. IMPRESSION: DEGENERATIVE DISC DISEASE AT L4-L5 WITH ANNULAR FISSURE. MILD POSTERIOR DISC PROTRUSION VERSUS HERNIATION WHICH IS MOST PROMINENT CENTRALLY. THIS CAUSES MILD ENCROACHMENT UPON THE THECAL SAC. BORDERLINE TO MILD CENTRAL CANAL STENOSIS AT THIS LEVEL, AND SOME MILD FORAMINAL NARROWING. Electronically signed by: Ana Laura Coppola M.D Interpreting Physician: ANA LAURA COPPOLA M.D. Read on: Aug 15 2016 11:59A Transcribed by: [facility] On: Aug 15 2016 11:57A Approved Electronically by: ANA LAURA COPPOLA M.D. on: Aug 15 2016 11:57A Ordering DR: DOMENICA FOY Attending DR: DOMENICA FOY Attending: DOMENICA FOY Requesting: DOMENICA FOY Requesting Attending Attending ID: [id number] Requesting ID: [id number] Report To 1 ID: [id number] Report To 1 Name: DOMENICA FOY Report To 1 FAX: [phone] NextGen Order #: us Not In File Miscellaneous IMG MRI PROCEDURES Fin al Result documented in this encounter Visit Diagnoses Not on filedocumented in this encounter Care Teams Farebox Repairer Relationship Specialty Start Date End Date Dayan [place] [address] PCP - General 05/24/16 04/08/17 documented as of this encounter
--- OUTSIDE RECORDS SUMMARY | 2024-02-12 03:40 | XMS_ITS | Encounter Summary ---
Author Organization [facility] Healthcare Address [address] [place] [address] Care Team Providers Care Supervisor Carpenters Name Role Phone Dayan Khan NP Primary Care Provider [phone] Encounter Details Date Type Department Care Team (Latest Contact Info) Description 02/04/2017 9:08 AM JUMPBASTING FACING BASTER - 02/04/2017 11:59 PM JUMPBASTING FACING BASTER Hospital Encounter [facility] Neurological Disorders Testing [address] [place] [address] Domenica Foy, GRACE [address] [place] [address] Lumbar radiculopathy Discharge Disposition: Discharge to home or self care Social History Tobacco Use Types Packs/Day Years Used Date Smoking Tobacco: Never Smokeless Tobacco: Never Alcohol Use Standard Drinks/Week Comments No 0 (1 standard drink = 0.6 oz pur e alcohol) Comments Unknown Sex and Gender Information Value Date Recorded Sex Assigned at Not on file Legal Sex Female 1:16 PM JUMPBASTING FACING BASTER Gender Identity Not on file Sexual Orientation [...] or self care documented in this encounter Procedure Notes * Marv Webster MD - 02/04/2017 12:00 AM CST EMG NERVE CONDUCTION STUDY Patient History This is a 41-year-old old patient with history of tingling, numbness of lower extremities. The study was ordered for evaluation of peripheral neuropathy. Nerve Conduction Study Bilateral sural and bilateral superficial peroneal antidromic sensory nerve conduction study showednormal SNAP latency, normal amplitude and normal sensory nerve conduction velocity. Bilateral peroneal and bilateral tibial motor nerve conduction study showed normal DML, CMAP amplitudes, motor nerve conduction velocities, and F-wave latencies. The H reflexes for bilateral tibial nerves were within normal limits. EMG Study The concentric needle electrode examination was performed on bilateral tibialis anterior, gastrocnemius medialis, vastus medialis, peroneus longus, and the extensor digitorum brevis. There was no evidence of acute or chronic innervation or reinnervation. The interference pattern is full in all muscles tested. Impression This is a normal study. There was no electrophysiologic evidence suggestive of significant large fiber neuropathy of bilateral lower extremities. The needle EMG study of bilateral lower extremities did not show any ongoing denervation. Clinical correlation is recommended. BASTING FACING BASTER documented in this encounter Plan of Treatment Scheduled Orders Name Type Priority Associated Diagnoses Orde r Schedule EMG Neurology Routine Lumbar radiculopathy Once for 1 Occurrences starting 02/04/2017 until 02/04/2017 documented as of this encounter Visit Diagnoses Diagnosis Lumbar radiculopathy Thoracic or lumbosacral neuritis or radiculitis, unspecified documented in this encounter Care Teams Supervisor Carpenters Relationship Specialty Start Date End Date Dayan Khan NP [address] [place] [address] PCP - General 05/24/16 04/08/17 documented as of this encounter
--- OUTSIDE RECORDS SUMMARY | 2024-02-12 03:40 | XMS_ITS | Encounter Summary ---
Author Organization [facility] Healthcare Address [address] [place] [address] Care Team Providers Care Poultryman Name Role Phone Dayan Khan NP Primary Care Provider [phone] Encounter Details Date Type Department Care Team (Late st Contact Info) Description 01/26/2016 7:32 PM MANAGER ACCESS - 01/26/2016 11:59 PM MANAGER ACCESS Hospital Encounter [facility] Omer Frederick MD [address] [place] [address] [place], [place] [address] [place] [address] Impingement syndrome of right shoulder Social History Tobacco Use Types Packs/Day Years Used Date Smoking Tobacco: Never Alcohol Use Standard Drinks/Week Comments No 0 (1 standard drink = 0.6 oz pur e alcohol) Comments Unknown Sex and Gender Information Value Date Recorded Sex Assigned at Not on file Legal Sex Female 1:16 PM MANAGER ACCESS Gender Identity Not on file Sexual Orientation [...] Name Priority Date/Time Associated Diagnosis Comments MRI UPPER EXTREMITY JOINT WO CONTRAST Routine 01/26/2016 8:01 PM MANAGER ACCESS documented in this encounter Results * MRI Upper Extremity Joint WO Contrast (01/26/2016 8:01 PM MANAGER ACCESS) Anatomical Region Laterality Modality Upper Extremities N/A Magnetic Reson ance 01/26/2016 8:01 PM MANAGER ACCESS Narrative 01/29/2016 8:24 AM MANAGER ACCESS MR Shoulder WO R ??- RIGHT Acc#: ??[id number] DATE OF EXAM: ??Jan ??2015 CLINICAL HISTORY: Impingement syndrome. ??Shoulder pain. ??Status post fall April/May 2015 onto the shoulder. RESULT: TECHNIQUE: ??Axial T1 and PD SPAIR; coronal fat sat T2, PD and PD SPAIR; sagittal T2 weighted SPAIR. FINDINGS: ??There is no localized bone marrow edema. The proximal biceps tendon is intact. There is no focal rotator cuff tear. There is mild to moderate acromioclavicular joint osteoarthritis with a mild degree of direct impingement at the level of the AC joint upon supraspinatus muscle body/tendon complex. IMPRESSION: 1. MILD TO MODERATE AC JOINT OSTEOARTHRITIS WITH MILD DIRECT IMPINGEMENT UPON THE SUPRASPINATUS MUSCLE BODY/TENDON COMPLEX. 2. NO LOCALIZED BONE MARROW EDEMA. 3. NO FOCAL ROTATOR CUFF TEAR. 4. NO SIGNIFICANT JOINT EFFUSION. Interpreting Physician: ??JAQUELINE CARTWRIGHT M.D. ??Read on: ??Dec ??2 2015 ??9:14P Transcribed by: ??vam ??On: Dec ??4 2016 ??4:27P Approved Electronically by: ??JAQUELINE CARTWRIGHT M.D. ??on: ??Dec ??5 2015 ??8:24A Attending: ??JAC HA DONALD Requesting: ??JAC HA DONALD Requesting Fax: ??[phone] Attending Fax: ??[phone] Attending ID: ??[id number] Requesting ID: ??[id number] Report To 1 ID: ??[id number] Report To 1 Name: ??JAC HA DONALD Report To 1 FAX: ??[phone] NextGen Order #: Procedure Note Provider, MD Eloisa - 07/01/2016 MR Shoulder WO R - RIGHT Acc#: [id number] DATE OF EXAM: Jan 26 2016 CLINICAL HISTORY: Impingement syndrome. Shoulder pain. Status post fall April/May 2015onto the shoulder. RESULT: TECHNIQUE: Axial T1 and PD SPAIR; coronal fat sat T2, PD and PD SPAIR;sagittal T2 weighted SPAIR. FINDINGS: There is no localized bone marrow edema. The proximal bicepstendon is intact. There is no focal rotator cuff tear. There is mild tomoderate acromioclavicular joint osteoarthritis with a mild degree ofdirect impingement at the level of the AC joint upon supraspinatus musclebody/tendon complex. IMPRESSION: 1. MILD TO MODERATE AC JOINT OSTEOARTHRITIS WITH MILD DIRECT IMPINGEMENTUPON THE SUPRASPINATUS MUSCLE BODY/TENDON COMPLEX. 2. NO LOCALIZED BONE MARROW EDEMA. 3. NO FOCAL ROTATOR CUFF TEAR. 4. NO SIGNIFICANT JOINT EFFUSION. Interpreting Physician: JAQUELINE CARTWRIGHT M.D. Read on: Jan 26 2016 9:14P Transcribed by: anthony On: Jan 28 2016 4:27P Approved Electronically by: JAQUELINE CARTWRIGHT M.D. on: Jan 29 2016 8:24A Attending: JAC HA DONALD Requesting: JAC HA DONALD Requesting Attending Attending ID: [id number] Requesting ID: [id number] Report To 1 ID: [id number] Report To 1 Name: JAC HA DONALD Report To 1 FAX: [phone] NextGen Order #: Historical Provider MD SERVIN MRI PROCEDURES Final Result documented in this encounter Visit Diagnoses Diagnosis Impingement syndrome of right shoulder documented in this encounter Care Teams Poultryman Relationship Specialty Start Date End Date Dayan Khan NP [address] [place] [address] PCP - General 12/28/15 05/09/16 documented as of this encounter
--- OUTSIDE RECORDS SUMMARY | 2024-02-12 03:40 | XMS_ITS | Encounter Summary ---
Author Organization [facility] Address [address] [place] [address] Care Team Providers Care Assistant Teaching Professor Name Role Phone Dayan Khan NP Primary Care Provider [phone] Encounter Details Date Type Department Care Team (Late st Contact Info) Description 03/11/[address] [facility] Medical [facility] Orthopedics and Sports Medicine [address] [facility] [address] [place] [phone] Omer Frederick MD 4 [facility] [address] [place] [address] Social History Tobacco Use Types Packs/Day Years Used Date Smoking Tobacco: Never Smokeless Tobacco: Never Alcohol Use Standard Drinks/Week Comments No 0 (1 standard drink = 0.6 oz pur e alcohol) Comments Unknown Sex and Gender Information Value Date Recorded Sex Assigned at Not on file Legal Sex Female 1:16 PM SENIOR SOLUTIONS WORKFLOW CONSULTANT Gender Identity Not on file Sexual Orientation Not on file documented as of this encounter Miscellaneous Notes * Telephone Encounter - Michelle Toure - 03/14/2017 1:22 PM CST Lm for pt to return call. Per alpesh pt can be seen earlier if still having problems OR SOLUTIONS WORKFLOW CONSULTANT * Telephone Encounter - Britt Ruiz PA - 03/11/2017 4:09 PM SENIOR SOLUTIONS WORKFLOW CONSULTANT Please have patient come in to be seen. Thank you OR SOLUTIONS WORKFLOW CONSULTANT * Telephone Encounter - Michelle Toure - 03/11/2017 3:44 PM CST Pt is calling and states that her right arm popped and is very painful. PT will not allow her to come until she is seen by someone . She can be reached at [phone] OR SOLUTIONS WORKFLOW CONSULTANT documented in this encounter Plan of Treatment Not on file documented as of this encounter Visit Diagnoses Not on filedocumented in this encounter Care Teams Assistant Teaching Professor Relationship Specialty Start Date End Date Dayan Khan, [place] [address] PCP - General 05/24/16 04/08/17 documented as of this encounter
--- OUTSIDE RECORDS SUMMARY | 2024-02-12 03:40 | XMS_ITS | Encounter Summary ---
Author Organization [facility] Medical [facility] Address [address] [place] [address] Care Team Providers Care Machine Finisher Name Role Phone Dayan Khan AUTOMATIC PROFILE SHAPER OPERATOR Primary Care Provider [phone] Encounter Details Date Type Department Care Team (Late st Contact Info) Description 12/30/2016 Telephone [facility] Orthopedics and Sports Medicine [address] [place] [address] Anna Miner RMA Social History Tobacco Use Types Packs/Day Years Used Date Smoking Tobacco: Never Smokeless Tobacco: Never Alcohol Use Standard Drinks/Week Comments No 0 (1 standard drink = 0.6 oz pur e alcohol) Comments Unknown Sex and Gender Information Value Date Recorded Sex Assigned at Not on file Legal Sex Female 1:16 PM RN LPN LVN Gender Identity Not on file Sexual Orientation Not on file documented as of this encounter Miscellaneous Notes * Telephone Encounter - Anna Miner MA - 12/30/2016 2:01 PM CST Called patient to notify her that PT order has been faxed. LPN LVN documented in this encounter Plan of Treatment Not on file documented as of this encounter Visit Diagnoses Not on filedocumented in this encounter Care Teams Machine Finisher Relationship Specialty Start Date End [place] [address] PCP - General 05/24/16 04/08/17 documented as of this encounter
--- OUTSIDE RECORDS SUMMARY | 2024-02-12 03:40 | XMS_ITS | Encounter Summary ---
Author Organization [facility] Healthcare Address [address] [place] [address] Care Team Providers Care Supervisor Concrete Block Plant Name Role Phone Dayan Khan NP Primary Care Provider [phone] Encounter Details Date Type Department Care Team (Late st Contact Info) Description 05/06/2014 2:26 PM CDT - 05/06/2014 5:56 PM CDT Hospital Encounter [facility] Kendrick Starr MD [address] [facility] [address] [place] [address] Type 2 or unspecified type diabetes mellitus; Tobacco use disorder; Encounter for long-term (current) use of other medications Social History Tobacco Use Types Packs/Day Years Used Date Smoking Tobacco: Never Alcohol Use Standard Drinks/Week Comments No 0 (1 standard drink = 0.6 oz pur e alcohol) Comments Unknown Sex and Gender Information Value Date Recorded Sex Assigned at Not on file Legal Sex 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 Gender Identity Not on file Sexual Orientation Not on file documented as of this encounter Medications at Time of Discharge ARIPiprazole (ABILIFY) 5 mg tablet take 1 tablet by oral route every day 0 0 09/30/2013 cyclobenzaprine (FLEXERIL) 5 mg tablet take 1 tablet by oral route 3 times every day 0 0 09/30/2013 09/11/2016 glimepiride (AMARYL) 2 mg tablet take [...] Name Priority Date/Time Associated Diagnosis Comments BLOOD GLUCOSE Routine 05/06/2014 5:07 PM CDT BLOOD GLUCOSE Routine 05/06/2014 4:04 PM CDT SERUM BASIC METABOLIC PANEL Routine 05/06/2014 3:05 PM CDT BLOOD WBC CELL MORPHOLOGIC EXAM, AUTO Routine 05/06/2014 3:05 PM CDT BLOOD CELL COUNT (CBC) Routine 05/06/2014 3:05 PM CDT BLOOD GLUCOSE Routine 05/06/2014 2:53 PM CDT BLOOD GLUCOSE Routine 05/06/2014 10:05 AM CDT DISCHARGE LABORATORY CUMULATIVE REPORT Routine 05/06/2014 12:00 AM CDT documented in this encounter Results * (ABNORMAL) Blood glucose (05/06/2014 5:07 PM CDT) Glucose, bld 330(H) 70 - 199 mg/dl HISTORICAL RESULTS Blood specimen (specimen) 05/06/2014 5:07 PM CDT us Kendrick Hernandez MD LAB BLOOD ORDERABLES Final Res ult HISTORICAL RESULTS * (ABNORMAL) Blood glucose (05/06/2014 4:04 PM CDT) Glucose, bld 375(H) 70 - 199 mg/dl HISTORICAL RESULTS Blood specimen (specimen) 05/06/2014 4:04 PM CDT us Historical Provider LAB BLOOD ORDERABLES Candy [email or web address] Result HISTORICAL RESULTS * (ABNORMAL) Serum basic metabolic panel (05/06/2014 3:05 PM CDT) BUN 7.4(L) 8.0 - 25.0 mg/dl HISTORICAL RESULTS Sodium 135 135 - 145 mmol/L HISTORICAL RESULTS Potassium, sr 3.8 3.5 - 5.1 mmol/L HISTORICAL RESULTS Chloride 96(L) 97 - 110 mmol/L HISTORICAL RESULTS CO2 25 22 - 32 mmol/L HISTORICAL RESULTS Glucose 473(VH) 70 - 199 mg/dl HISTORICAL RESULTS Comment: Critical value called with verification read back Test(s):GLUCOSE Contact Name:(first, last name):WILLIAN POOL Location:ER Date/Time and Lab ID:05/06/14 16:58 [id number] Note:The glucose is assumed non fasting Fastin-99 mg/dl Random: 70-199 mg/dl Either a fasting glucose > 126 mg/dL or a random glucose > 200 mg/dL plus symptoms is diagnostic of diabetes when confirmed on another day. Fasting values > 100 mg/dl but < 125 mg/dL are diagnostic of impaired fasting glucose. Creatinine 0.54(L) 0.60 - 1.10 mg/dl HISTORICAL RESULTS Comment: eGFR: >70 ml/min/1.73sq.m if non -Icelandic. eGFR: >70 ml/min/1.73sq.m if -Icelandic. AVE GFR for 40-49 yr. age group: ??99 ml/min/1.73sq.m Calculated using MDRD Equation BUN/creat ratio 14 10 - 20 HIST ORICAL RESULTS A. gap 18(H) 8 - 16 mmol/L HISTORICAL RESULTS Osmo, calc 289 275 - 295 mOsm/kg HISTORICAL RESULTS Calcium 9.2 8.6 - 10.2 mg/dl HISTORICAL RESULTS Serum 05/06/2014 3:05 PM CDT Kendrick Hernandez MD LAB [facility]LOOD [facility]AB[facility] Per[facility] Organization Address [place]/[facility] de Phone Number HISTORICAL RESULTS * (ABNORMAL) Blood cell count (CBC) (05/06/2014 3:05 PM CDT) WBC 5.8 4.0 - 10.5 K/cumm HISTORICAL RESULTS RBC 4.75 4.20 - 5.40 M/cumm HISTORICAL RESULTS Hgb 14.2 12.0 - 16.0 g/dl HISTORICAL RESULTS Hct 41.0 37.0 - 47.0 % HISTORICAL RESULTS MCV 86.3 77.0 - 97.0 fl HISTORICAL RESULTS MCH 29.9 23.0 - 34.0 pg HISTORICAL RESULTS MCHC 34.6 32.0 - 36.0 g/dl HISTORICAL RESULTS Rdw 13.7 11.5 - 14.5 % HISTORICAL RESULTS Platelets 199 150 - 400 K/cumm HISTORICAL RESULTS MPV 11.3(H) 7.4 - 10.4 fl HISTORICAL RESULTS Blood specimen (specimen) 05/06/2014 3:05 PM CDT Kendrick Hernandez MD LAB BLOOD ORDERABLES [facility] Per[facility] Organization Address [place]/[facility] de Phone Number HISTORICAL RESULTS * (ABNORMAL) Blood WBC cell morphologic exam, auto (05/06/2014 3:05 PM CDT) Lymphocytes 24.0(L) 25.0 - 33.0 % HISTORICAL RESULTS Monos 7.2 0.0 - 13.0 % HISTORICAL RESULTS Neutrophils 63.6 54.0 - 69.0 % HISTORICAL RESULTS Eosinophils 3.8 0.0 - 10.0 % HISTORICAL RESULTS Basophils 1.2(H) 0.0 - 1.0 % HISTORICAL RESULTS Immature granulocytes 0.2 0.0 - 1.0 % HISTORICAL RESULTS Lymphocytes, abs 1.4 1.2 - 3.4 K/cumm HISTORICAL RESULTS Monocytes, absolute 0.4(L) 1.1 - 1.9 K/cumm HISTORICAL RESULTS Neutrophils, abs 3.7 1.4 - 6.5 K/cumm HISTORICAL RESULTS Eosinophils, abs 0.2 0.0 - 0.7 cells/cum m HISTORICAL RESULTS Basophils, abs 0.1 0.0 - 0.2 K/cumm HISTORICAL RESULTS Immature granulocyte, abs 0.0 0.0 - 0.0 K/cumm HISTORICAL RESULTS Blood specimen (specimen) 05/06/2014 3:05 PM CDT us Kendrick Hernandez MD LAB BLOOD ORDERABLES Final Res ult Performing Organization Address [facility] Co de Phone Number HISTORICAL RESULTS * (ABNORMAL) Blood glucose (05/06/2014 2:53 PM CDT) Glucose, bld 437(H) 70 - 199 mg/dl HISTORICAL RESULTS Blood specimen (specimen) 05/06/2014 2:53 PM CDT us Historical Provider LAB BLOOD ORDERABLES Candy l Result Performing Organization Address [facility] Co de Phone Number HISTORICAL RESULTS * (ABNORMAL) Blood glucose (05/06/2014 10:05 AM CDT) Glucose, bld 457(VH) 70 - 199 mg/dl HISTORICAL RESULTS Venous blood 05/06/2014 10:0 5 AM CDT Narrative HISTORICAL RESULTS - 05/06/2014 6:54 PM CDT CRITICAL WB GLUCOSE CALLED TO WILLIAN POWELL WITH READBACK 05/06/14 15:22 [id number] us Sophie Alonso MD LAB BLOOD ORDERABLES Final Result Performing Organization Address [facility] Co de Phone Number HISTORICAL RESULTS * Discharge Laboratory Cumulative Report (05/06/2014 12:00 AM CDT) 05/06/2014 Narrative HISTORICAL RESULTS - 05/07/2014 3:04 AM CDT Patient No: [id number] ? [facility] Patient Name: OUMOU MIDDLETON ?[facility] Age: 38 YRS ?: 1975 ?Sex:F ?[address] )[id number] ?? Adm Dt: 05/06/2014 ?[place], [place] ??[address] Created: 05/07/2014 ??0304 ?? Pt. Type: E ? Discharge Dt: 05/06/2014 ? Pathologists: Christine Madrid MD Admit Dr. Tesfaye Dr: KENDRICK HERNANDEZ MD ? BLOOD CELL COUNTS ?Collection Date: ?03/13/15 ?Collection Time: ?1505 ? Ref Range: ?? Units: [4.00-10.50] /CMM ? WBC X 10^3 ?5.80 [4.20-5.40] ??/CMM ? RBC X 10^6 ?4.75 [12.0-16.0] ??G/DL ? HGB ? 14.2 [37.0-47.0] ??% ?HCT ? 41.0 [77.0-97.0] ??FL ? MCV ? 86.3 [23.0-34.0] ??PG ? MCH ? 29.9 [32.0-36.0] ??% ?MCHC ?34.6 [11.5-14.5] ??% ?RDW ? 13.7 [150-400] ?? /CMM ? PLT X 10^3 ? 199 ?BLOOD CELL DIFFERENTIAL ?Collection Date: ?15 ?Collection Time: ?1505 ? Ref Range: ?? Units: [54.0-69.0] ??% ?NEUTROPHILS ? 63.6 [25.0-33.0] ??% ?LYMPHOCYTES ? 24.0 L [0.0-13.0] ??% ?MONOCYTES ?7.2 [0.0-10.0] ??% ?EOSINOPHILS ?3.8 [0.0-1.0] ?? % ?BASOPHILS ?1.2 H ? /CMM ? A LYMPHOCYTE ? 1.4 [0.0-1.0] ?? % ?IMM GRAN % ? 0.2 [0.00-0.02] ??/CMM ? A IMM GRAN ?0.01 [1.1-1.9] ?? /CMM ? A MONOCYTE ? 0.4 L [1.4-6.5] ?? /CMM ? A NEUTROPHIL ? 3.7 [0.0-0.7] ?? /CMM ? A EOSINOPHIL ? 0.2 [0.0-0.2] ?? /CMM ? A BASOPHIL ? 0.1 Footnotes and Symbols: L = Low, H = High ?? CONTINUED ?Page: ?? 1 Patient No: [id number] ? [facility] Patient Name: DOUBET, OUMOU J ?[facility] Age: 38 YRS ?: 1975 ?Sex:F ?[address] )[id number] ?? Adm Dt: 05/06/2014 ?[place], [place] ??[address] Created: 05/07/2014 ??0304 ?? Pt. Type: E ? Discharge Dt: 05/06/2014 ? Pathologists: Christine Madrid MD Admit Dr. Tesfaye Dr: KENDRICK HERNANDEZ MD ? GENERAL CHEMISTRY ?Collection Date: ?05/06/14 ? 05/06/14 ?Collection Time: ?1707 ? 1604 ? Ref Range: ?? Units: ??[70-199] ?? MG/DL ?POC GLUCOSE ?330 H ?375 H ?Collection Date: ?05/06/14 ? 05/06/14 ?Collection Time: ?1505 ? 1453 ? Ref Range: ?? Units: [135-145] ?? MMOL/L ? SODIUM ? 135 ??[70-199] ?? MG/DL ?POC GLUCOSE ? 437 H [3.5-5.1] ?? MMOL/L ? POTASSIUM ?3.8 [97.0-110.0] MMOL/L ? CHLORIDE ?96.0 L [22.0-32.0] ??MMOL/L ? TOTAL CO2 ? 24.8 ?? [8-16] ?MMOL/L ? ANION GAP ? 18 H ??[70-199] ?? MG/DL ?GLUCOSE ?473 Cf ?05/06/14 1505 Critical value called with verification read back Test(s):GLUCOSE Contact Name:(first, last name):WILLIAN POOL Location:ER Date/Time and Lab ID:05/06/14 16:58 [id number] [[id number]] ?? MOSM/K ? CALCULATED OSMO ?289 [8.6-10.2] ??MG/DL ?CALCIUM ?9.2 [8.0-25.0] ??MG/DL ?BUN ?7.4 L Footnotes and Symbols: L = Low, H = High, C = Critical, f = Footnote GLUCOSE (04/06/14 -- Current) Note:The glucose is assumed non fasting Fastin-99 mg/dl Random: 70-199 mg/dl Either a fasting glucose > 126 mg/dL or a random glucose > 200 mg/dL plus symptoms is diagnostic of diabetes when confirmed on another day. Fasting values > 100 mg/dl but < 125 mg/dL are diagnostic of impaired fasting glucose. ?? CONTINUED ?Page: ?? 2 Patient No: [id number] ? [facility] Patient Name: OUMOU MIDDLETON ?[facility] Age: 38 YRS ?: 1975 ?Sex:F ?[address] )[id number] ?? Adm Dt: 05/06/2014 ?[place], [place] ??[address] Created: 05/07/2014 ??0304 ?? Pt. Type: E ? Discharge Dt: 05/06/2014 ? Pathologists: Christine Madrid MD Admit Attend Dr: KENDRICK HERNANDEZ MD ? GENERAL CHEMISTRY ?Collection Date: ?05/06/14 ? 05/06/14 ?Collection Time: ?1505 ? 1453 ? Ref Range: ?? Units: ??[10-20] ? B/C RATIO ? 14 [0.60-1.10] ??MG/DL ?CREATININE ?0.54 Lf ?05/06/14 1505 eGFR: >70 ml/min/1.73sq.m if non -Icelandic. eGFR: >70 ml/min/1.73sq.m if -Icelandic. AVE GFR for 40-49 yr. age group: ??99 ml/min/1.73sq.m Calculated using MDRD Equation FOOTNOTE ADDED ON ?? 05/06/14 ?? AT 1659 BY 999 ?WHOLE BLOOD CHEMISTRIES ??[70-199] ?? MG/DL ?GLUCOSE WB CYRUS ? 457 Cf ?05/06/14 1505 CRITICAL WB GLUCOSE CALLED TO WILLIAN POWELL WITH READBACK 05/06/14 15:22 [id number] FOOTNOTE REVISED ON 05/06/14 ?? AT 2354 BY [id number] Footnotes and Symbols: L = Low, C = Critical, f = Footnote ?? END OF CHART ? Page: ?? 3 us Historical Provider LAB BLOOD ORDERABLES Candy mcwilliams Result Performing Organization Address City/State/[facility] Co de Phone Number HISTORICAL RESULTS documented in this encounter Visit Diagnoses Diagnosis Type 2 or unspecified type diabetes mellitus Tobacco use disorder Encounter for long-term (current) use of other medications documented in this encounter Care Teams Supervisor Concrete Block Plant Relationship Specialty Start Date End Date Dayan Khan, HIGH SPEED WARPER TENDER [address] [place] [address] PCP - General 03/05/11 12/27/15 documented as of this encounter
--- OUTSIDE RECORDS SUMMARY | 2024-02-12 03:40 | XMS_ITS | Encounter Summary ---
Author Organization [facility] Healthcare Address [address] [place] [address] Care Team Providers Care Kiln Car Repairer Name Role Phone Dayan Khan NP Primary Care Provider Encounter Details Date Type Department Care Team (Latest Contact Info) Description 07/15/2014 2:15 PM CDT Hospital Encounter 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 ??100 mL of Omnipaque 350 was injected through the right antecubital vein. COMPARISON: None available ?? CT ABDOMEN FINDINGS: Lung Bases: ??The lung bases are clear. Liver/Gallbladder/Bile Ducts: ??No focal liver lesions are identified. There is mild hepatic hypoattenuation. ??The gallbladder is surgically absent. ??There is no bile duct dilatation. Spleen/Pancreas/Kidneys/Adrenal Glands: ??The spleen, pancreas, kidneys, and adrenal glands are normal. Vasculature: Unremarkable Lymph Nodes/Peritoneum/Mesentery/Omentum: ??There is no upper abdominal free fluid, free air, or lymph node enlargement. Stomach and Bowel: ??There is no evidence of a bowel obstruction. Body Wall: ??No significant osseous or soft tissue abnormalities are identified. Support Devices: ??None. CT PELVIS FINDINGS: Bladder: ??No focal abnormalities are identified. Uterus/Adnexa: ??No focal abnormalities are identified. A dominant follicle is present on the right. ??A vaginal tampon is in place. Vasculature: ??Unremarkable Lymph Nodes/Peritoneum/Mesentery/Omentum: ??There is no pelvic free fluid, free air, or lymph node enlargement. Bowel: The appendix is within normal limits ?? Body Wall: ??No significant osseous or soft tissue abnormalities are identified. Support Devices: ??None. COMBINED CONCLUSIONS: ?? Mild hepatic steatosis. ??No intrahepatic or extrahepatic biliary ductal dilatation. THIS IS AN ELECTRONICALLY VERIFIED REPORT 07/17/2014 7:22 AM: ??Nik Acuña M.D. Nik Acuña M.D. JA:steven 06:36 PM 09:08 AM [facility] [EOD] Procedure Note Provider, MD Eloisa - 07/11/2020 EXAMINATION: CT ABDOMEN AND PELVIS WITH CONTRAST HISTORY: Elevated liver function test TECHNIQUE: Contrast enhanced helical CT of the abdomen and pelvis was performed. 100 mL of Omnipaque 350 was injected through the rightantecubital vein. COMPARISON: None available CT ABDOMEN FINDINGS: Lung Bases: The lung bases are clear. Liver/Gallbladder/Bile Ducts: No focal liver lesions are identified.There is mild hepatic hypoattenuation. The gallbladder is surgically absent.There is no bile duct dilatation. Spleen/Pancreas/Kidneys/Adrenal Glands: The spleen, pancreas, kidneys,and adrenal glands are normal. Vasculature: Unremarkable Lymph Nodes/Peritoneum/Mesentery/Omentum: There is no upper abdominalfree fluid, free air, or lymph node enlargement. Stomach and Bowel: There is no evidence of a bowel obstruction. Body Wall: No significant osseous or soft tissue abnormalities areidentified. Support Devices: None. CT PELVIS FINDINGS: Bladder: No focal abnormalities are identified. Uterus/Adnexa: No focal abnormalities are identified. A dominant follicleis present on the right. A vaginal tampon is in place. Vasculature: Unremarkable Lymph Nodes/Peritoneum/Mesentery/Omentum: There is no pelvic free fluid,free air, or lymph node enlargement. Bowel: The appendix is within normal limits Body Wall: No significant osseous or soft tissue abnormalities areidentified. Support Devices: None. COMBINED CONCLUSIONS: Mild hepatic steatosis. No intrahepatic or extrahepatic biliary ductal dilatation. THIS IS AN ELECTRONICALLY VERIFIED REPORT 07/17/2014 7:22 AM: Nik Acuña M.D. Nik Acuña M.D. JA:steven 06:36 PM 09:08 AM [facility] [EOD] Lorena SCOTT IMTerence CT PROCEDURES Final Result documented in this encounter Visit Diagnoses Diagnosis Other specified abnormal findings of blood chemistry Abdominal pain, left upper quadrant documented in this encounter Care Teams Kiln Car Repairer Relationship Specialty Start Date End Date Dayan Khan NP [address] [place] [address] PCP - General 03/05/11 12/27/15 documented as of this encounter
--- OUTSIDE RECORDS SUMMARY | 2024-02-12 03:40 | XMS_ITS | Encounter Summary ---
Author Organization [facility] Healthcare Address [address] [place] [address] Care Team Providers Care Corporate Meeting Planner Name Role Phone Dayan Khan ELECTRICIAN ASSISTANT Primary Care Provider [phone] Encounter Details Date Type Department Care Team (Late st Contact Info) Description 03/06/2011 8:30 AM NUTRITION MANAGER - 03/06/2011 11:59 PM NUTRITION MANAGER Hospital Encounter [facility] Pat[facility] Social History Tobacco Use Types Packs/Day Years Used Date Smoking Tobacco: Never Assessed Comments Unknown Sex and Gender Information Value Date Recorded Sex Assigned at Not on file Legal Sex Female 1:16 PM NUTRITION MANAGER Gender Identity Not on file Sexual Orientation Not on file documented as of this encounter Plan of Treatment Not on file documented as of this encounter Visit Diagnoses Not on filedocumented in this encounter Care Teams Corporate Meeting Planner Relationship Specialty Start Date End Date Dayan Khan, ELECTRICIAN ASSIST[place] [address] PCP - General 03/05/11 12/27/15 documented as of this encounter
--- OUTSIDE RECORDS SUMMARY | 2024-02-12 03:40 | XMS_ITS | Encounter Summary ---
Author Organization [facility] Healthcare Address [address] [place] [address] Care Team Providers Care Candy Cutter Hand Name Role Phone Dayan Khan NP Primary Care Provider [phone] Encounter Details Date Type Department Care Team (Late st Contact Info) Description 03/08/2011 7:18 AM THERAPEUTIC RECREATION DIRECTOR - 03/09/2011 10:10 AM THERAPEUTIC RECREATION DIRECTOR Hospital Encounter [facility] Vipin Shirley MD [address] [place] [address] Calculus of gallbladder with other cholecystitis; Nausea with vomiting; Other abnormal glucose; Asthma; Sleep apnea; Tobacco use disorder; History of allergy to other specified medicinal agents Social History Tobacco Use Types Packs/Day Years Used Date Smoking Tobacco: Never Assessed Comments Unknown Sex and Gender Information Value Date Recorded Sex Assigned at Not on file Legal Sex Female 1:16 PM THERAPEUTIC RECREATION DIRECTOR Gender Identity Not on file Sexual Orientation Not on file documented as of this encounter Last Filed Vital Signs Vital Sign Reading Time Taken Comments Blood Pressure 115/73 03/09/2011 8:00 AM THERAPEUTIC RECREATION DIRECTOR Pulse 75 03/09/2011 8:00 AM THERAPEUTIC RECREATION DIRECTOR Temperature - - Respiratory Rate - - Oxygen Saturation - - Inhaled Oxygen Concentration - - Weight 105.8 kg (233 lb 4 oz) 03/08/2011 11:30 A M THERAPEUTIC RECREATION DIRECTOR Height 157.5 cm (5' 2.01 ) 03/08/2011 11:30 AM C Body Mass Index 42.65 03/08/2011 11:30 AM THERAPEUTIC RECREATION DIRECTOR documented in this encounter Plan of Treatment Not on file documented as of this encounter Visit Diagnoses Diagnosis Calculus of gallbladder with other cholecystitis Nausea with vomiting Other abnormal glucose Asthma Unspecified asthma Sleep apnea Unspecified sleep apnea Tobacco use disorder History of allergy to other specified medicinal agents documented in this encounter Care Teams Candy Cutter Hand Relationship Specialty Start Date End Date Dayan Khan, LOAD PLANNER [address] [place] [address] PCP - General 03/05/11 12/27/15 documented as of this encounter
--- OUTSIDE RECORDS SUMMARY | 2024-02-12 03:40 | XMS_ITS | Encounter Summary ---
Author Organization [facility] Healthcare Address [address] [place] [address] Care Team Providers Care Sash Clamp Operator Name Role Phone Dayan Khan NP Primary Care Provider [phone] Encounter Details Date Type Department Care Team (Late st Contact Info) Description 04/21/2012 8:58 AM METALLURGICAL ENGINEERING TEACHER - 04/21/2012 11:59 PM METALLURGICAL ENGINEERING TEACHER Hospital Encounter [facility] CLINCONV Cabrera Medina MD [address] [place] [id number] Social History Tobacco Use Types Packs/Day Years Used Date Smoking Tobacco: Never Assessed Comments Unknown Sex and Gender Information Value Date Recorded Sex Assigned at Not on file Legal Sex Female 1:16 PM METALLURGICAL ENGINEERING TEACHER Gender Identity Not on file Sexual Orientation Not on file documented as of this encounter Plan of Treatment Not on file documented as of this encounter Visit Diagnoses Not on filedocumented in this encounter Care Teams Sash Clamp Operator Relationship Specialty Start Date End Date Dayan [place] [address] PCP - General 03/05/11 12/27/15 documented as of this encounter
--- OUTSIDE RECORDS SUMMARY | 2024-02-12 03:40 | XMS_ITS | Encounter Summary ---
Author Organization [facility] Healthcare Address [address] [place] [address] Care Team Providers Care Electrician Powerhouse Name Role Phone Dayan Khan NP Primary Care Provider [phone] Encounter Details Date Type Department Care Team (Late st Contact Info) Description 05/10/2016 8:56 AM CDT - 05/10/2016 11:59 PM CDT Hospital Encounter [facility] OP INTERIM Armin Spencer MD [address] [place] [address] Discharge Disposition: Discharge to home or self care Social History Tobacco Use Types Packs/Day Years Used Date Smoking Tobacco: Never Alcohol Use Standard Drinks/Week Comments No 0 (1 standard drink = 0.6 oz pur e alcohol) Comments Unknown Sex and Gender Information Value Date Recorded Sex Assigned at Not on file Legal Sex Female 1:16 PM GRAPHIC ARTS INSTRUCTOR Gender Identity Not on file Sexual Orientation [...] Diagnosis Comments MRI CERVICAL SPINE WO CONTRAST Routine 05/10/2016 2:43 PM CDT documented in this encounter Results * MRI Cervical Spine WO Contrast (05/10/2016 2:43 PM CDT) Anatomical Region Laterality Modality Spine N/A Magnetic Resonan ce 05/10/2016 2:43 PM CDT Narrative 05/10/2016 2:43 PM CDT MR Cervical Spine WO ??Acc#: ??[id number] DATE OF EXAM: ??May 10 2016 CLINICAL HISTORY: Cervical radiculopathy. ??Severe right shoulder pain and right arm pain. RESULT: Sagittal T1 and T2, axial T1 and T2. Mild to moderately diminished signal within the disc, consistent with desiccation. ??Slightly smaller height of the disc at C4- C5 suggesting degenerative disc disease. ??Some minimal disc bulging primarily at C5-C6. ??No discreet disc herniation. ??No central canal stenosis. ??No significant foraminal narrowing. ??Vertebral body heights are maintained. ??No definite abnormal signal identified within the cervical spinal cord. IMPRESSION: VERY MINIMAL DISC BULGING AT C5-C6. ??NO DISCREET DISC HERNIATION. ??NO CENTRAL CANAL STENOSIS. Interpreting Physician: ??ANA LAURA COPPOLA M.D. ??Read on: ??May 10 2016 10:05A Transcribed by: ??mrr ??On: May 10 2016 11:02A Approved Electronically by: ??ANA LAURA COPPOLA M.D. ??on: ??May 10 2016 ??5:07P Attending: ??ARMIN SPENCER Requesting: ??DR ARMIN SPENCER Requesting Fax: ??[phone] Attending Fax: ??-- Attending ID: ??[id number] Requesting ID: ??[id number] Report To 1 ID: ??[id number] Report To 1 Name: ??ARMIN SPENCER Report To 1 FAX: ??-- NextGen Order #: ?? Procedure Note Miscellaneous, Notinfile / Provider, Eloisa, - 07/17/2016 MR Cervical Spine WO Acc#: [id number] DATE OF EXAM: May 10 2016 CLINICAL HISTORY: Cervical radiculopathy. Severe right shoulder pain and right arm pain. RESULT: Sagittal T1 and T2, axial T1 and T2. Mild to moderately diminished signalwithin the disc, consistent with desiccation. Slightly smaller height ofthe disc at C4-C5 suggesting degenerative disc disease. Some minimal discbulging primarily at C5- C6. No discreet disc herniation. No centralcanal stenosis. No significant foraminal narrowing. Vertebral bodyheights are maintained. No definite abnormal signal identified within thecervical spinal cord. IMPRESSION: VERY MINIMAL DISC BULGING AT C5-C6. NO DISCREET DISC HERNIATION. NOCENTRAL CANAL STENOSIS. Interpreting Physician: ANA LAURA COPPOLA M.D. Read on: May 10 2016 10:05A Transcribed by: mrr On: May 10 2016 11:02A Approved Electronically by: ANA LAURA COPPOLA M.D. on: May 10 2016 5:07P Attending: ARMIN SPENCER Requesting: DR ARMIN SPENCER Requesting Attending Fax: -- Attending ID: [id number] Requesting ID: [id number] Report To 1 ID: [id number] Report To 1 Name: ARMIN SPENCER Report To 1 FAX: -- NextGen Order #: us Not In File Miscellaneous IMG MRI PROCEDURES Fin al Result documented in this encounter Visit Diagnoses Not on filedocumented in this encounter Care Teams Electrician Powerhouse Relationship Specialty Start Date End Date Dayan Khan, GRACE [address] [place] [address] PCP - General 05/10/16 05/23/16 documented as of this encounter
--- OUTSIDE RECORDS SUMMARY | 2024-02-12 03:40 | XMS_ITS | Encounter Summary ---
Author Organization [facility] Healthcare Address [address] [place] [address] Care Team Providers Care Replanter Name Role Phone Dayan Khan NP Primary Care Provider [phone] Encounter Details Date Type Department Care Team (Late st Contact Info) Description 09/30/2013 7:04 PM CDT - 09/30/2013 11:59 PM CDT Hospital Encounter [facility] CLINCONV Marcie, Alpa Martinez MD [address] [place] [address] Encounter for routine gynecological examination; Vaginitis and vulvovaginitis Social History Tobacco Use Types Packs/Day Years Used Date Smoking Tobacco: Never Assessed Comments Unknown Sex and Gender Information Value Date Recorded Sex Assigned at Not on file Legal Sex Female 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 us Historical Provider LAB CYTOLOGY ORDERABLES F inal Result * Trichomonas Antigen (09/30/2013 12:00 AM CDT) 09/30/2013 Narrative HISTORICAL RESULTS - 10/01/2013 4:51 PM CDT [facility] ?Patient Name: ?DOUBET, OUMOU J .. ?Med. Rec#: ?? [id number] ?Pt. Acct.#: ??[id number] ?Birthdate: ?? 1975 ?Age / Sex: ?? 38Y / F ?Location: ?[facility] (Laborato ?Admit Date: ??09/30/2013 ?Discharge Date: ? 09/30/2013 ?Doctor: ?Alpa Jack MD ?Patient Type: ?[facility] Ref Lab - [facility] Trichomonas Antigen ? Collected: 09/30/2013 10:30 Specimen: Swab ?? Specimen Source: ENDOCERVICAL Status: Final ??Last Update: 09/30/2013 21:13 Trichomonas Antigen Result: ?? Negative for Trichomonas antigen us Historical Provider LAB MICROBIOLOGY - GENERA L ORDERABLES Final Result HISTORICAL RESULTS * Gram Stain (09/30/2013 12:00 AM CDT) 09/30/2013 Narrative HISTORICAL RESULTS - 10/01/2013 4:51 PM CDT [facility] ?Patient Name: ?OUMOU MIDDLETON .. ?Med. Rec#: ?? [id number] ?Pt. Acct.#: ??[id number] ?Birthdate: ?? 1975 ?Age / Sex: ?? 38Y / F ?Location: ?[facility] (Laborato ?Admit Date: ??09/30/2013 ?Discharge Date: ? 09/30/2013 ?Doctor: ?Alpa Jack MD ?Patient Type: ?[facility] Ref Lab - [facility] Gram Stain ? Collected: 09/30/2013 10:30 Specimen: Swab ?? Specimen Source: ENDOCERVICAL Status: Final ??Last Update: 09/30/2013 22:05 Gram Stain ?? Rare neutrophils seen ?? Many Gram positive bacilli consistent with Lactobacillus ?? seen ?? Many yeast seen ?? Few pseudohyphae seen ?? No bacteria suggestive of Gardnerella seen ?? No intracellular Gram negative diplococci seen us Historical Provider LAB MICROBIOLOGY - GENERA L ORDERABLES Final Result HISTORICAL RESULTS documented in this encounter Visit Diagnoses Diagnosis Encounter for routine gynecological examination Vaginitis and vulvovaginitis documented in this encounter Care Teams Replanter Relationship Specialty Start Date End Date Dayan Khan, SCHEDULING ADMINISTRATOR [address] [place] [address] PCP - General 03/05/11 12/27/15 documented as of this encounter
--- OUTSIDE RECORDS SUMMARY | 2024-02-12 03:40 | XMS_ITS | Encounter Summary ---
Author Organization [facility] Address [address] [place] [address] Care Team Providers Care Game Programer Name Role Phone Dayan Khan NP Primary Care Provider [phone] Encounter Details Date Type Department Care Team (Latest Contact Info) Description 03/13/2017 6:40 AM GREENHOUSE MANAGER - 03/13/2017 11:59 PM GREENHOUSE MANAGER Hospital Encounter [facility] Orthopedics and Sports Medicine [address] [place] [phone] Discharge Disposition: Discharge to home or self care Social History Tobacco Use Types Packs/Day Years Used Date Smoking Tobacco: Never Smokeless Tobacco: Never Alcohol Use Standard Drinks/Week Comments No 0 (1 standard drink = 0.6 oz pur e alcohol) Comments Unknown Sex and Gender Information Value Date Recorded Sex Assigned at Not on file Legal Sex Female 1:16 PM GREENHOUSE MANAGER Gender Identity Not on file Sexual [...] Priority Date/Time Associated Diagnosis Comments XR SHOULDER RIGHT 2 OR MORE VIEWS Schedule Routine, Read Routine (OP Routine) 03/13/2017 8:57 AM GREENHOUSE MANAGER Right shoulder pain, unspecified chronicity documented in this encounter Results * XR Shoulder Right 2 or More Views (03/13/2017 8:57 AM GREENHOUSE MANAGER) Anatomical Region Laterality Modality Upper Extremities, Shoulder Right Radi ographic Imaging Narrative 03/24/2017 11:54 AM GREENHOUSE MANAGER Interpretation of x-rays: ??Four views of the right shoulder taken today in the office demonstrate, in my opinion, no acute bony abnormality, fracture or dislocation. ??The humeral head appears to be well centered within the glenoid fossa without migration. There are sclerotic changes noted at the greater tuberosity and mild degenerative changes noted on the rim of the glenoid fossa. ??The acromion has a type 2 slope with mild degenerative changes of the acromioclavicular joint. ??There is narrowing of the glenohumeral joint space. us TYLER Hamlin II IMG XR PROCEDURES Final Result documented in this encounter Visit Diagnoses Not on filedocumented in this encounter Care Teams Game Programer Relationship Specialty Start Date End Date Dayan Khan, ANALYSIS EVALUATOR [address] [place] [address] PCP - General 05/24/16 04/08/17 documented as of this encounter
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
--- OUTSIDE RECORDS SUMMARY | 2024-02-12 03:40 | XMS_ITS | Encounter Summary ---
Author Organization [facility] Address [address] [facility] [address] [place] [address] Care Team Providers Care Semiconductor Wafers Saw Operator Name Role Phone Dayan Khan NP Primary Care Provider [phone] Reason for Visit * Reason Comments Pain Encounter Details Date Type Department Care Team (Late st Contact Info) Description 03/25/2017 9:00 AM CAD DESIGNER Office Visit [facility] Orthopedics and Sports Medicine [address] [place] [phone] [place], [place] [address] [facility] [address] [place] [address] Biceps strain, right, subsequent encounter (Primary Dx) Social History Tobacco Use Types Packs/Day Years Used Date Smoking Tobacco: Never Smokeless Tobacco: Never Alcohol Use Standard Drinks/Week Comments No 0 (1 standard drink = 0.6 oz pur e alcohol) Comments Unknown Sex and Gender Information Value Date Recorded Sex Assigned at Not on file Legal Sex Female 1:16 PM CAD DESIGNER Gender Identity Not on file Sexual Orientation Not on file documented as of this encounter Last Filed Vital Signs Vital Sign Reading Time Taken Comments Blood Pressure 107/72 03/25/2017 9:12 AM CAD DESIGNER Pulse 92 03/25/2017 9:12 AM CAD DESIGNER Temperature - - Respiratory Rate - - Oxygen Saturation - - Inhaled Oxygen Concentration - - Weight 88.9 kg (196 lb) 03/25/2017 9:12 AM CAD DESIGNER Height 157.5 cm (5' 2 ) 03/25/2017 9:12 AM CAD DESIGNER Body Mass Index 35.85 03/25/2017 9:12 AM CAD DESIGNER documented in this encounter Progress Notes * [place] - 03/25/2017 9:00 AM CST Images from the original note were not included. FOLLOW UP VISIT Subjective CHIEF COMPLAINT She had concerns including Pain of the Right Shoulder. HISTORY OF PRESENT ILLNESS Mrs. Middleton returns to the office today for reexamination of her right upper arm. She was initiallyseen in the office on 03/13/2017 with a painful medial biceps muscle. Several days prior to examination to [facility] had experienced a painful ???pop?? in the upper arm while lifting a gal of milk fromthe refrigerator. Clinical examination suggested biceps strain/possible muscle tear. She was advised to wear a sling for comfort, apply ice, take OTC NSAIDs for anti-inflammatory effect and pain control and to avoid lifting any objects weighing greater than 1 lb with the right arm. She was encouraged to continue with right elbow motion during the interim. She presents to the office today with a pain severity level of 8/10 and very emotional. Mrs. Middleton denies any radicular pain and no numbnessor paresthesias in the right upper extremity. Pain Assessment Pain Assessment: 0-10 Pain Score: 8 Pain Location: Shoulder Pain Orientation: Right Pain Descriptors: Aching Pain Frequency: Constant/continuous Pain Onset: Ongoing Clinical Progression: Gradually worsening Aggravating Factors: Stretching, Straightening Result of Injury: No Work-Related Injury: No Patient's Stated Pain Goal: No pain Pain Interventions: Medication (See MAR) MEDICATIONS She has a current medication list which includes the following prescription(s): acetaminophen-codeine, abilify, cetirizine, clotrimazole, cyclobenzaprine, duloxetine dr, ergocalciferol, fluconazole, glimepiride, meloxicam, mirtazapine, prazosin, simvastatin, sulfamethoxazole-trimethoprim, tramadol,and trazodone. REVIEW OF SYSTEMS Review of Systems [...] is not hyperactive. Objective PHYSICAL EXAM BP 107/72 (BP Location: Right arm, Patient Position: Sitting) Pulse 92 Ht 157.5 cm (5' 2 ) Wt88.9 kg (196 lb) BMI 35.85 kg/m?? Right [...] this visit: Biceps strain, right, subsequent encounter - MRI Humerus Right W WO Contrast; Future PLAN Treatment options were again discussed with Mrs. Middleton and her . She elects to continue with non operative treatment. An MRI of the right upper arm has been requested to assess possible muscle tear of the medial head of the biceps. Oumou will return to the office in 10-14 days to review the results of her MRI. She is encouraged to call the office anytime she has any problems or concernsduring the interim. SHAYAN Govea PA Cosigned by Omer Frederick MD at 03/27/2017 2:01 PM CAD DESIGNER DESIGNER DESIGNER documented in this encounter Plan of Treatment Not on file documented as of this encounter Visit Diagnoses Diagnosis Biceps strain, right, subsequent encounter- Primary documented in this encounter Care Teams Semiconductor Wafers Saw Operator Relationship Specialty Start Date End Date Dayan Khan NP [address] [place] [address] PCP - General 05/24/16 04/08/17 documented as of this encounter
--- OUTSIDE RECORDS SUMMARY | 2024-02-12 03:40 | XMS_ITS | Encounter Summary ---
Author Organization [facility] Healthcare Address [address] [place] [address] Care Team Providers Care Hvac Engineering Technician Name Role Phone Dayan Khan NP Primary Care Provider [phone] Encounter Details Date Type Department Care Team (Late st Contact Info) Description 04/14/2014 10:05 AM CLINICAL INFORMATICS DIRECTOR - 04/14/2014 10:42 AM CLINICAL INFORMATICS DIRECTOR Hospital Encounter [facility] CLINCONV Melvin Nguyen Low back pain; Tobacco use disorder Social History Tobacco Use Types Packs/Day Years Used Date Smoking Tobacco: Never Alcohol Use Standard Drinks/Week Comments No 0 (1 standard drink = 0.6 oz pur e alcohol) Comments Unknown Sex and Gender Information Value Date Recorded Sex Assigned at Not on file Legal Sex Female 1:16 PM CLINICAL INFORMATICS DIRECTOR Gender Identity Not on file Sexual [...] as of this encounter Visit Diagnoses Diagnosis Low back pain Lumbago Tobacco use disorder documented in this encounter Care Teams Hvac Engineering Technician Relationship Specialty Start Date End Date Dayan Khan NP [address] [place] [address] PCP - General 03/05/11 12/27/15 documented as of this encounter
--- OUTSIDE RECORDS SUMMARY | 2024-02-12 03:40 | XMS_ITS | Encounter Summary ---
Author Organization [facility] Address [address] [address] Care Team Providers Care Fundraising Sale Representative Name Role Phone Dayan Khan NP Primary Care Provider Reason for Visit * Reason Comments Pain Encounter Details Date Type Department Care Team (Late st Contact Info) Description 03/13/2017 8:30 AM CLOTHING ROOM SUPERVISOR Office Visit [facility] Orthopedics and Sports Medicine [address] [place] [phone] [place] II, PA [address] [place] [address] [address] [place] [address] Right shoulder pain, unspecified chronicity (Primary Dx); Biceps strain, right, initial encounter; Adhesive capsulitis of right shoulder; Shoulder impingement syndrome, right Social History Tobacco Use Types Packs/Day Years Used Date Smoking Tobacco: Never Smokeless Tobacco: Never Alcohol Use Standard Drinks/Week Comments No 0 (1 standard drink = 0.6 oz pur e alcohol) Comments Unknown Sex and Gender Information Value Date Recorded Sex Assigned at Not on file Legal Sex Female 1:16 PM CLOTHING ROOM SUPERVISOR Gender Identity Not on file Sexual Orientation Not on file documented as of this encounter Last Filed Vital Signs Vital Sign Reading Time Taken Comments Blood Pressure 157/93 03/13/2017 8:49 AM CLOTHING ROOM SUPERVISOR Pulse 83 03/13/2017 8:49 AM CLOTHING ROOM SUPERVISOR Temperature - - Respiratory Rate - - Oxygen Saturation - - Inhaled Oxygen Concentration - - Weight 88.9 kg (196 lb) 03/13/2017 8:49 AM CLOTHING ROOM SUPERVISOR Height 157.5 cm (5' 2 ) 03/13/2017 8:49 AM CLOTHING ROOM SUPERVISOR Body Mass Index 35.85 03/13/2017 8:49 AM CLOTHING ROOM SUPERVISOR documented in this encounter Progress Notes * [place] - 03/13/2017 8:30 AM CST Images from the original note were not included. Subjective Patient ID: Oumou Middleton is a 41 y.o. female. Chief Complaint: Chief Complaint Patient presents with ??? Right Upper Arm - Pain Mrs. Middleton is a very pleasant 41-year-old [id number] lady who has been receiving physicaltherapy at [facility] for adhesive capsulitis with impingement syndrome of the right shoulder presents to the office today for examination of her right upper arm . Oumou has been receiving physical therapy for the past 2 years with gradual improvement in her range of motion. Three days ago she felt a ???pop?? in the mid portion of her right biceps while lifting a gal of milk out of therefrigerator. She has pain with attempts at extending the right elbow and when attempting to lift objects weighing greater than 1 lb. Oumou denies seeing any bruising or deformity in the upper arm. Social History Occupational History ??? Not on file. Social History Main Topics ??? Smoking status: Never Smoker ??? Smokeless tobacco: Never Used ??? Alcohol use No ??? Drug use: Unknown ??? Sexual activity: Not on file Review of Systems Constitutional: Negative for activity [...] not nervous/anxious and is not hyperactive. Objective Right Shoulder Exam Tenderness Right shoulder tenderness location: Midportion of the Medial biceps. Range of Motion Active Abduction: 110 Passive Abduction: 120 Forward Flexion: 130 External Rotation: 30 Internal Rotation 0 degrees: L5 abnormal Muscle Strength Abduction: 4/5 Internal Rotation: 4/5 External Rotation: 3/5 Supraspinatus: 3/5 Subscapularis: 4/5 Biceps: 4/5 Tests Drop Arm: negative Hawkin's test: positive Impingement: positive Sulcus: absent Other Erythema: absent Sensation: normal Pulse: present Comments: No ecchymosis or defect biceps muscle. Negative Yergason's sign. Assessment 1. Right shoulder pain, unspecified chronicity 2. Biceps strain, right, initial encounter 3. Adhesive capsulitis of right shoulder 4. Shoulder impingement syndrome, right Plan Mrs. Middleton was advised to continue with the a home exercise program for range of motion of the right shoulder and to continue a stretching program for the right biceps muscle/tendon complex. She is encouraged to use OTC naproxen 440 mg twice a day for anti-inflammatory effect and pain control. Oumou will return to the office for reexamination in 2-3 weeks and was advised to avoid lifting any objects weighing greater than 1 lb with the right arm. She is also advised to apply ice 30 min 3-4 times daily to the right biceps following stretching. TYLER Hamlin Cosigned by Omer Frederick MD at 03/24/2017 10:16 PM CLOTHING ROOM SUPERVISOR HING ROOM SUPERVISOR HING ROOM SUPERVISOR documented in this encounter Plan of Treatment Not on file documented as of this encounter Procedures Procedure Name Priority Date/Time Associated Diagnosis Comments XR SHOULDER RIGHT 2 OR MORE VIEWS Schedule Routine, Read Routine (OP Routine) 03/13/2017 8:57 AM CLOTHING ROOM SUPERVISOR Right shoulder pain, unspecified chronicity documented in this encounter Results * XR Shoulder Right 2 or More Views (03/13/2017 8:57 AM CLOTHING ROOM SUPERVISOR) Anatomical Region Laterality Modality Upper Extremities, Shoulder Right Radi ographic Imaging Narrative 03/24/2017 11:54 AM CLOTHING ROOM SUPERVISOR Interpretation of x-rays: ??Four views of the [...] is narrowing of the glenohumeral joint space. TYLER Hamlin II IMG XR PROCEDURES Final Result documented in this encounter Visit Diagnoses Diagnosis Right shoulder pain, unspecified chronicity- Primary Biceps strain, right, initial encounter Adhesive capsulitis of right shoulder Shoulder impingement syndrome, right documented in this encounter Care Teams Fundraising Sale Representative Relationship Specialty Start Date End Date Dayan Khan NP [address] [place] [address] PCP - General 05/24/16 04/08/17 documented as of this encounter
--- OUTSIDE RECORDS SUMMARY | 2024-02-12 03:40 | XMS_ITS | Encounter Summary ---
Author Organization [facility] Address [address] [facility] [address] [place] [address] Care Team Providers Care Soft Crab Shedder Name Role Phone Dayan Khan NP Primary Care Provider Reason for Visit * Reason Comments Pain Encounter Details Date Type Department Care Team (Late st Contact Info) Description 11/01/2016 8:45 AM CDT Office Visit [facility] Orthopedics and Sports Medicine [address] [place] [phone] Omer Frederick MD [address] [place] [address] [address] P[address] [address] Adhesive capsulitis of right shoulder (Primary Dx) Social History Tobacco Use Types Packs/Day Years Used Date Smoking Tobacco: Never Smokeless Tobacco: Never Alcohol Use Standard Drinks/Week Comments No 0 (1 standard drink = 0.6 oz pur e alcohol) Comments Unknown Sex and Gender Information Value Date Recorded Sex Assigned at Not on file Legal Sex Female 1:16 PM NON CLINICAL ADVISOR Gender Identity Not on file Sexual Orientation Not on file documented as of this encounter Last Filed Vital Signs Vital Sign Reading Time Taken Comments Blood Pressure 127/92 11/01/2016 9:02 AM CDT Pulse 96 11/01/2016 9:02 AM CDT Temperature - - Respiratory Rate - - Oxygen Saturation - - Inhaled Oxygen Concentration - - Weight 89.8 kg (198 lb) 11/01/2016 9:02 AM CDT Height 157.5 cm (5' 2 ) 11/01/2016 9:02 AM CDT Body Mass Index 36.21 11/01/2016 9:02 AM CDT documented in this encounter Patient Instructions * Patient Instructions* Omer Frederick MD - 11/01/2016 8:45 AM CDT Dx and Tx information given to patient today along with [facility] website. documented in this encounter Progress Notes * Omer Frederick MD - 11/01/2016 8:45 AM CDT FOLLOW UP VISIT Subjective CHIEF COMPLAINT She had concerns including Pain of the Right Shoulder. HISTORY OF PRESENT ILLNESS Follow up on right shoulder adhesive capsulitis. She has been dealing with this for 2 years total, in PT for 3 weeks now and using TENs unit for pain. MEDICATIONS She has a current medication list [...] is not hyperactive. Objective PHYSICAL EXAM BP 127/92 Pulse 96 Ht 157.5 cm (5' 2 ) Wt 89.8 kg (198 lb) BMI 36.21 kg/m?? Right shoulder Inspection Erythema: absent Skin temperature: normal Palpation Tenderness is present. Range of motion The patient has reduced range of motion of the right shoulder. The patient has pain with range of motion of the right shoulder. Active forward flexion: 70 degrees. The patient has pain with active forward flexion of the right shoulder. Active external rotation at 0 degrees: 0 degrees. The patient has pain with active external rotation at 0 degrees of the right shoulder. Passive forward flexion: 140 degrees. The patient has pain with passive forward flexion of the right shoulder. Passive external rotation at 0 degrees: 20 degrees. The patient has pain with passive external rotation at 0 degrees of the right shoulder. Passive external rotation at 90 degrees 0 degrees. The patient has pain with passive external rotation at 90 degrees of the right shoulder. Neurovascular The patient has normal vascular on the right side of her body. She has normal sensation on the right side of her body. REVIEW OF X-RAYS/STUDIES/LABS Assessment/Plan Oumou was seen today for pain. Diagnoses and all orders for this visit: Adhesive capsulitis of right shoulder Procedures PLAN Discussed her plan with her and her physical therapist who is present with her today she is going to continue home exercise program physical therapy and follow-up in 6 months goal is non op treatment documented in this encounter Plan of Treatment Not on file documented as of this encounter Visit Diagnoses Diagnosis Adhesive capsulitis of right shoulder- Primary documented in this encounter Discontinued Medications Medication Sig Discontinue Reason Start Date End Da te DULoxetine DR (CYMBALTA) 20 mg capsule Duplicate order 7 11/01/2016 documented as of this encounter Historical Medications * This list may reflect changes made after this encounter. ergocalciferol (VITAMIN D) 50,000 unit capsule TK 1 C PO WEEKLY 0 09/18/2016 03/01/[address] (CYMBALTA) 20 mg capsule 09/13/2016 11/01/2016 clotrimazole 1 % cream 10/30/2016 03/01/2022 cetirizine (ZyrTEC) 10 mg tablet TK 1 T PO QD 2 10/30/2016 03/01/2022 added in this encounter Care Teams Soft Crab Shedder Relationship Specialty Start Date End Date Dayan Khan NP [address] [place] [address] PCP - General 05/24/16 04/08/17 documented as of this encounter
--- OUTSIDE RECORDS SUMMARY | 2024-02-12 03:40 | XMS_ITS | Encounter Summary ---
Author Organization [facility] Address [address] [facility] [address] [place] [address] Care Team Providers Care Marketing Performance Analyst Name Role Phone Dayan Khan LIQUOR STORE MANAGER Primary Care Provider [phone] Encounter Details Date Type Department Care Team (Late st Contact Info) Description 12/30/2016 Orders Only [facility] Medical [facility] [address] 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
--- OUTSIDE RECORDS SUMMARY | 2024-02-12 03:40 | XMS_ITS | Encounter Summary ---
Author Organization [facility] Healthcare Address [address] [place] [address] Care Team Providers Care Data Processing Equipment Repairer Name Role Phone Unavailable Primary Care Provider Unavailabl e Encounter Details Date Type Department Care Team (Late st Contact Info) Description 08/13/2009 12:52 AM CDT - 08/13/2009 2:05 AM CDT Hospital Encounter [facility] Gary Belcher MD [address] [place] [address] Sprain of ankle; Accidental fall on or from other stairs or steps; Unspecified place of occurrence; External cause status; Tobacco use disorder; Alcohol abuse Social History Tobacco Use Types Packs/Day Years Used Date Smoking Tobacco: Never Assessed Comments Unknown Sex and Gender Information Value Date Recorded Sex Assigned at Not on file 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
--- OUTSIDE RECORDS SUMMARY | 2024-02-12 03:40 | XMS_ITS | Encounter Summary ---
Author Organization [facility] Healthcare Address [address] [place] [address] Care Team Providers Care Caster Operator Name Role Phone Dayan Khan ROOFER GYPSUM Primary Care Provider [phone] Encounter Details Date Type Department Care Team (Late st Contact Info) Description 06/03/2011 8:30 PM CDT - 06/03/2011 11:59 PM CDT Hospital Encounter [facility] MD [address] [place] [id number] Social History Tobacco Use Types Packs/Day Years Used Date Smoking Tobacco: Never Assessed Comments Unknown Sex and Gender Information Value Date Recorded Sex Assigned at Not on file Legal Sex Female 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
--- OUTSIDE RECORDS SUMMARY | 2024-02-12 03:40 | XMS_ITS | Encounter Summary ---
Author Organization [facility] Healthcare Address [address] [place] [address] Care Team Providers Care Mortgage Loan Closer Name Role Phone Dayan Khan NP Primary Care Provider [phone] Encounter Details Date Type Department Care Team (Latest Contact Info) Description 07/06/2014 9:46 AM CDT Hospital Encounter [facility] Lorena Abraham PA [address] [place], [place] [id number] Abnormal results of liver function studies; Abdominal pain, right upper quadrant Social History Tobacco Use Types Packs/Day Years Used Date Smoking Tobacco: Never Alcohol Use Standard Drinks/Week Comments No 0 (1 standard drink = 0.6 oz pur e alcohol) Comments Unknown Sex and Gender Information Value Date Recorded Sex Assigned at Not on file Legal Sex Female 1:16 PM 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 PRESS OPERATOR HELPER Gender Identity Not on file Sexual [...] Name Priority Date/Time Associated Diagnosis Comments MITOCHONDRIAL M2 AB,IGG Routine 07/06/2014 10:46 AM CDT SMOOTH MUSCLE ANTIBODY, QUALITATIVE Routine 07/06/2014 10:46 AM CDT [id number] Routine 07/06/2014 1 0:46 AM CDT ART REFLEX TO QUANTITATIVE Routine 07/06/2014 10:46 AM CDT CERULOPLASMIN Routine 07/06/2014 10:46 AM CDT HEPATITIS PANEL, ACUTE Routine 5 10:46 AM CDT FERRITIN Routine 07/06/2014 10:46 AM CDT HEPATIC FUNCTION PANEL Routine 5 10:46 AM CDT documented in this encounter Results * Ceruloplasmin (07/06/2014 10:46 AM CDT) Ceruloplasmin 31 17 - 54 mg/dL Comment: REFERENCE INTERVAL: Ceruloplasmin ?? Access complete set of age- and/or gender-specific ?? reference intervals for this test in the [email or web address] ?? Test Directory ([facility]). ?? Performed by [facility] [employer] [facility], ?? [address] [place] [address] ?? [facility], Anoop Yadav MD, Lab. Director ?? 07/06/2014 10:4 6 AM CDT 07/06/2014 11:05 AM CDT Lorena SCOTT LAB BLOOD ORDERABLES Fi nal Result Performing Organization Address [facility] Phone Number [facility] HISTORICAL RESULTS * [id number] (07/06/2014 10:46 AM CDT) Pathologist [facility] Npled-5-Cualqj ypsin 174 90 - 200 mg/dL Comment: To convert to umol/L, multiply mg/dL by 0.185 ?? Performed by [facility], ?? [address] [place] [address] ?? www[facility], Anoop Yadav MD, Lab. Director ?? 07/06/2014 10:4 6 AM CDT 07/06/2014 11:05 AM CDT us Lorena SCOTT LAB BLOOD ORDERABLES Fi nal Result Performing Organization Address [facility] Phone Number [facility] HISTORICAL RESULTS * Smooth muscle antibody, qualitative (07/06/2014 10:46 AM CDT) [facility] Smooth Muscle IgG Ab 11 0 - 19 Units Comment: If F-Actin (Smooth Muscle) Antibody, IgG is negative, the ?? Smooth Muscle Antibody titer by IFA is not performed. ?? INTERPRETIVE INFORMATION: F-Actin (Smooth Muscle) Antibody, ?? IgG by PARUL ?19 Units or less ....... Negative ?20 - 30 Units .......... Weak Positive-Suggest repeat ? testing in two to three weeks ? with fresh specimen. ?31 Units or greater..... Positive-Suggestive of ? autoimmune hepatitis type 1 ? or chronic active hepatitis. ?? F-actin antibodies have been shown to have greater ?? sensitivity and specificity for autoimmune liver disease ?? than anti-smooth muscle antibodies. ?? Performed by [facility] [facility], ?? [address] [facility] [place] [id number] ?? www[facility], Anoop Yadav MD, Lab. Director ?? 07/06/2014 10:4 6 AM CDT 07/06/2014 11:05 AM CDT us Lorena Abraham PA LAB BLOOD ORDERABLES Fi nal Result [facility] HISTORICAL RESULTS * Mitochondrial M2 Ab,IgG (07/06/2014 10:46 AM CDT) Mitochondria M2 Ab 3.0 0.0 - 20.0 Units Comment: INTERPRETIVE INFORMATION: Mitochondrial (M2) Antibody, IgG ?20.0 Units or less ......... Negative ?20.1 - 24.9 Units........... Equivocal ?25.0 Units or greater....... Positive ?? Performed by [facility], ?? [address] [facility] [place] [address] ?? www[facility], Anoop Yadav MD, Lab. Director ?? 07/06/2014 10:4 6 AM CDT 07/06/2014 11:05 AM CDT Lorena SCOTT LAB BLOOD ORDERABLES Fi nal Result Performing Organization Address [facility] de Phone Number [facility] HISTORICAL RESULTS * ART reflex to quantitative (07/06/2014 10:46 AM CDT) ART Screen None Detected None Detected Comment: No antibodies to Anti-Nuclear Antibodies (ART) detected. No ?? further testing will be performed. ?? INTERPRETIVE INFORMATION: Anti-Nuclear Antibodies (ART), ?? IgG by PARUL ?? ART specimens are screened using enzyme-linked ?? immunosorbent assay (PARUL) methodology. All PARUL results ?? reported as Detected are further tested by indirect ?? fluorescent assay (IFA) using HEp-2 substrate with an ?? IgG-specific conjugate. The ART PARUL screen is designed to ?? detect antibodies against dsDNA, histone, SS-A (Ro), SS-B ?? (La), Ny, snRNP/Sm, Scl-70, Larissa-1, centromere, and an ?? extract of lysed HEp-2 cells. ART PARUL assays have been ?? reported to have lower sensitivities for antibodies ?? associated with nucleolar and speckled ART-IFA patterns. ?? Performed by [facility] [facility], ?? [address] [place] [address] ?? www[facility], Anoop Yadav MD, Lab. Director ?? 07/06/2014 10:4 6 AM CDT 07/06/2014 11:05 AM CDT Lorena SCOTT LAB BLOOD ORDERABLES Fi nal Result Performing Organization Address [facility] de Phone Number [facility] HISTORICAL RESULTS * Hepatitis panel, acute (07/06/2014 10:46 AM CDT) Pathologist [facility] HepBsAg NONREACT NONREACTIVE Comment: [employer] using MARGARITA (chemiluminescent immunoassay) technology. NONREACTIVE: IgM antibodies to Hepatitis B Surface antigen not detected. REACTIVE: IgM antibodies to Hepatitis B Surface antigen detected. Reactive results will be confirmed by neutralization testing. HBsAb (immune status) NONREACT NONREACTIVE Comment: [employer] using MARGARITA (chemiluminescent immunoassay) technology. NONREACTIVE: IgM antibodies to Hepatitis B Surface antibody not detected. REACTIVE: IgM antibodies to Hepatitis B Surface antibody detected. Hep B core IgM NONREACT NONREACTIVE 5 12:22 PM CDT [facility] HISTORICAL RESULTS Comment: [employer] using MARGARITA [...] CDT Lorena SCOTT LAB MICROBIOLOGY - GENE [facility] ORDERABLES Final Result [facility] HISTORICAL RESULTS * Ferritin (07/06/2014 10:46 AM CDT) Ferritin 261.5 12.0 - 263.0 ng/mL Comment: Female: Premenopause ?13.0-150.0 ng/mL Female: Postmenopause ?? 12.0-263.0 ng/mL 07/06/2014 10:4 6 AM CDT 07/06/2014 11:05 AM CDT Lorena SCOTT LAB BLOOD ORDERABLES Fi nal Result [facility] HISTORICAL RESULTS * (ABNORMAL) Hepatic function panel (07/06/2014 10:46 AM CDT) [facility] Total Protein 7.7 6.4 - 8.3 g/dL Albumin 4.3 3.5 - 5.2 g/dL Globulin 3.4 2.3 - 3.5 gm/dL Albumin/Globulin Ratio 1.3 1.1 - 1.8 Total Bilirubin 0.7 0.0 - 1.2 mg/dL Direct Bilirubin < 0.20 0.00 - 0.25 mg/dL AST 117(H) 0 - 32 U/L ALT 137(H) 0 - 33 U/L Alkaline Phosphatase 76 35 - 104 U/L 07/06/2014 10:4 6 AM CDT 07/06/2014 11:05 AM CDT Lorena SCOTT LAB BLOOD ORDERABLES Fi nal Result [facility] HISTORICAL RESULTS documented in this encounter Visit Diagnoses Diagnosis Abnormal results of liver function studies Nonspecific abnormal results of liver function study Abdominal pain, right upper quadrant documented in this encounter Care Teams Mortgage Loan Closer Relationship Specialty Start Date End Date Dayan Khan NP [address] [place] [address] PCP - General 03/05/11 12/27/15 documented as of this encounter
--- OUTSIDE RECORDS SUMMARY | 2024-02-12 03:40 | XMS_ITS | Encounter Summary ---
Author Organization [facility] Address [address] [facility] [address] [place] [address] Care Team Providers Care Contact Center Manager Name Role Phone Dayan Khan NP Primary Care Provider [phone] Encounter Details Date Type Department Care Team (Late st Contact Info) Description 01/14/2017 Telephone [facility] Orthopedics and Sports Medicine [address] [place] [phone] Omer Frederick MD [address] [place] [address] [address] PARK[address] [address] Social History Tobacco Use Types Packs/Day Years Used Date Smoking Tobacco: Never Smokeless Tobacco: Never Alcohol Use Standard Drinks/Week Comments No 0 (1 standard drink = 0.6 oz pur e alcohol) Comments Unknown Sex and Gender Information Value Date Recorded Sex Assigned at Not on file Legal Sex Female 1:16 PM AIR TRAFFIC COORDINATOR Gender Identity Not on file Sexual Orientation Not on file documented as of this encounter Miscellaneous Notes * Telephone Encounter - Triny Maciel MA - 01/14/2017 4:29 PM AIR TRAFFIC COORDINATOR Patient will do HEP for one month then pt may resume in February. [place] will tell pt to make appt with dr dickerson TRAFFIC COORDINATOR * Telephone Encounter - Jhony De La O - 01/14/2017 4:11 PM CST Patient called and Is about Out of PT Session Thru medicare and Her Therapist would like to know what you Want her to don when sessions run Out She can be Reached at [phone] [place] TRAFFIC COORDINATOR documented in this encounter Plan of Treatment Not on file documented as of this encounter Visit Diagnoses Not on filedocumented in this encounter Care Teams Contact Center Manager Relationship Specialty Start Date End Date Dayan Khan, FRYER OPERATOR [address] [place] [address] PCP - General 05/24/16 04/08/17 documented as of this encounter
--- OUTSIDE RECORDS SUMMARY | 2024-02-12 03:40 | XMS_ITS | Encounter Summary ---
Author Organization [facility] Healthcare Address [address] [place] [address] Care Team Providers Care Range Management Specialist Name Role Phone Dayan Khan NP Primary Care Provider [phone] Encounter Details Date Type Department Care Team (Late st Contact Info) Description 07/25/2014 1:05 PM CDT - 07/25/2014 11:59 PM CDT Hospital Encounter [facility] Mark Shin MD [address] [place] [address] Dayan Khna NP [address] [place] [address] Dietary counseling and surveillance; Type 2 or unspecified type diabetes mellitus Social History Tobacco Use Types Packs/Day Years Used Date Smoking Tobacco: Never Alcohol Use Standard Drinks/Week Comments No 0 (1 standard drink = 0.6 oz pur e alcohol) Comments Unknown Sex and Gender Information Value Date Recorded Sex Assigned at Not on file 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
--- OUTSIDE RECORDS SUMMARY | 2024-02-12 03:40 | XMS_ITS | Encounter Summary ---
Author Organization [facility] Medical [facility] Address [address] [facility] [address] [place] [address] Care Team Providers Care School Cook Name Role Phone Dayan Khan NP Primary Care Provider [phone] Reason for Referral * Physical Therapy (Routine) - Closed Specialty Diagnoses / Procedures Referred By Shmuel angel Referred To Contact Physical Therapy Diagnoses Adhesive capsulitis of right shoulder Omer Frederick MD Phone: tel: fax: [facility] [address] [place] [address] Phone: tel: fax: Referral ID Status Reason Start Date Expiration Date V isits Requested Visits Authorized [id number] Closed Specialty Services Required 09/11/2016 03/10/2017 12 12 Question Answer PTRFR PT Evaluate and Treat Type: PT Evaluate and Treat Therapy options discussed with patient? Yes Location provided for therapy services is: Patient requested/Patient preferred Reason for Visit * Reason Comments Pain Encounter Details Date Type Department Care Team (Late st Contact Info) Description 09/11/2016 11:30 AM CDT Office Visit [facility] Orthopedics and Sports Medicine [address] [place] [phone] Omer Frederick MD [address] [place] [address] DR PARKINSON B [address] [address] Adhesive capsulitis of right shoulder (Primary Dx) Social History Tobacco Use Types Packs/Day Years Used Date Smoking Tobacco: Never Smokeless Tobacco: Never Alcohol Use Standard Drinks/Week Comments No 0 (1 standard drink = 0.6 oz pur e alcohol) Comments Unknown Sex and Gender Information Value Date Recorded Sex Assigned at Not on file Legal Sex Female 1:16 PM [employer] Gender Identity Not on file Sexual Orientation Not on file documented as of this encounter Last Filed Vital Signs Vital Sign Reading Time Taken Comments Blood Pressure 129/81 09/11/2016 11:54 AM CDT Pulse 96 09/11/2016 11:54 AM CDT Temperature - - Respiratory Rate - - Oxygen Saturation - - Inhaled Oxygen Concentration - - Weight 93.4 kg (205 lb 12.8 oz) 017 11:54 AM CDT Height 157.5 cm (5' 2 ) 09/11/2016 11:5 4 AM CDT Body Mass Index 37.64 09/11/2016 11:54 AM CDT documented in this encounter Patient Instructions * Patient Instructions* Omer Frederick MD - 09/11/2016 11:30 AM CDT Dx and Tx information given to patient today along with AAOS website. documented in this encounter Progress Notes * Omer Frederick MD - 09/11/2016 11:30 AM CDT FOLLOW UP VISIT Subjective CHIEF COMPLAINT She had concerns including Pain of the Right Shoulder. HISTORY OF PRESENT ILLNESS Shoulder Pain Patient complaints of right shoulder pain. This is evaluated as a personal injury. The pain is described as sharp, shooting and throbbing. The onset of the pain was gradual, starting about 1 year ago. The pain occurs continuously and lasts 24 hours. Location is global. No history of dislocation. Symptoms are aggravated by all activities. Symptoms are diminished by avoiding the painful activities.Limited activities include: all activities. The following symptoms are reported shloulder stiffnessweakness, swelling and crepitus. 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 Patientgetting pain management Pain Assessment Pain Assessment: 0-10 Pain Score: 6 MEDICATIONS She has a current medication list which includes the following prescription(s): acetaminophen-codeine, abilify, cyclobenzaprine, duloxetine dr, fluconazole, glimepiride, meloxicam, mirtazapine, prazosin, simvastatin, sulfamethoxazole- trimethoprim, tramadol, and trazodone. REVIEW OF SYSTEMS Review [...] is not hyperactive. Objective PHYSICAL EXAM BP 129/81 (BP Location: Left arm, Patient Position: Sitting) Pulse 96 Ht 157.5 cm (5' 2 ) Wt 93.4 kg (205 lb 12.8 oz) BMI 37.64 kg/m?? Right shoulder Inspection Erythema: absent Edema: absent Swelling: absent Scapulothoracic motion: abnormal Palpation Tenderness is present. The patient has tenderness in the aneterior shoulder area(s). Range of motion The patient has reduced range of motion of the right shoulder. The patient has pain with range of motion of the right shoulder. Passive internal rotation at 90 degrees: 50 degrees. Passive external rotation at 90 degrees 10 degrees. Passive abduction: 50 degrees. Strength The patient does not have normal strength at baseline. Shoulder abduction: painful Internal rotation: painful External rotation painful Neurovascular The patient has normal vascular on the right side of her body. She has normal sensation on the right side of her body. Left shoulder The patient has normal inspection, palpation, range of motion, strength, and stability of the left shoulder. REVIEW OF X-RAYS/STUDIES/LABS Assessment/Plan Oumou was seen today for pain. Diagnoses and all orders for this visit: Adhesive capsulitis of right shoulder Procedures PLAN I discussed the nature of the patient's condition in the clinic today. We discussed that adhesive capsulitis is preventing the patient from regaining full range of motion and that the patient would benefit PT and TENS unit. meds per PCP. Omer Frederick MD documented in this encounter Miscellaneous Notes * Addendum Note - Cassi Davis MA - 09/11/2016 11:30 AM CDTAddended by: CASSI DAVIS on: 09/11/2016 12:47 PM Modules accepted: Orders documented in this encounter Plan of Treatment Scheduled Referrals Name Type Priority Associated Diagnoses Order Schedule Ambulatory referral to Physical Therapy Outpatient Referral Routine Adhesive capsulitis of right shoulder Ordered: 09/11/2016 documented as of this encounter Visit Diagnoses Diagnosis Adhesive capsulitis of right shoulder- Primary documented in this encounter Discontinued Medications Medication Sig Discontinue Reason Start Date End Da te DULoxetine DR (CYMBALTA) 20 mg capsule take 1 capsule by oral route 2 times every day Alternate therapy 12/28/2015 09/11/2016 cyclobenzaprine (FLEXERIL) 5 mg tablet take 1 tablet by oral route 3 times every day Alternate therapy 09/30/2013 09/11/2016 acetaminophen-codeine (TYLENOL with CODEINE #3) 300-30 mg per tablet take 1 tablet by oral route every 6 hours as needed Alternate therapy 01/23/2016 09/11/2016 PARoxetine (PAXIL) 10 mg tablet take 1 tablet by oral route every day Alternate therapy 09/30/2013 09/11/2016 documented as of this encounter Historical Medications * This list may reflect changes made after this encounter. Medication Sig Dispense Quantity Refills Last Filled Start D ate End Date sulfamethoxazole-trim ethoprim (BACTRIM,SEPTRA) 800-160 mg per tablet 09/09/201601/2019 mirtazapine (REMERON) 15 mg tablet 08/10/2016 06/05/2018 meloxicam (MOBIC) 15 mg tablet 08/15/2016 06/05/2018 fluconazole (DIFLUCAN) 150 mg tablet 06/19/2016 06/05/[address] (CYMBALTA) 30 mg capsule 08/10/2016 03/01/2022 cyclobenzaprine (FLEXERIL) 10 mg tablet 08/08/2016 03/01/2022 acetaminophen-codeine (TYLENOL with CODEINE #4) 300-60 mg per tablet 08/08/2016 06/05/2018 added in this encounter Orders General Supply Count Last Ordered Date First Or dered Date TENS UNIT 1 09/11/2016 documented in this encounter Care Teams School Cook Relationship Specialty Start Date End Date Dayan Khan, [employer] [address] [place] [address] PCP - General 05/24/16 04/08/17 documented as of this encounter
--- OUTSIDE RECORDS SUMMARY | 2024-02-12 03:43 | XMS_ITS | Continuity of Care Document ---
Author Organization [employer] [facility] Address [address] [place] [address] [address] [place] [address] Phone Care Team Providers Care Event Crew Technician Name Role Phone Elyssa Riley FRANCOa Unavailable Unavailable Procedures Procedure Date Therapeutic Exercise Neuromuscular Re-Ed Manual Therapy Therapeutic Exercise Therapeutic Activities Neuromuscular Re-Ed Manual Therapy Hot or Cold Pack Therapeutic Exercise Neuromuscular Re-Ed Manual Therapy Therapeutic Exercise Neuromuscular Re-Ed Manual Therapy Therapeutic Exercise Neuromuscular Re-Ed Manual Therapy PT Re-evaluation Therapeutic Exercise Manual Therapy Carrying, Moving And Handling Objects-Cu rrent Carrying, Moving And Handling Objects-Go al Therapeutic Exercise Neuromuscular Re-Ed Manual Therapy Therapeutic Exercise Neuromuscular Re-Ed Manual Therapy Therapeutic Exercise Neuromuscular Re-Ed Manual Therapy Hot or Cold Pack Electrical Stimulation Therapeutic Exercise Neuromuscular Re-Ed Manual Therapy Hot or Cold Pack Electrical Stimulation Therapeutic Exercise Neuromuscular Re-Ed Manual Therapy Theratube/band Therapeutic Exercise Neuromuscular Re-Ed Manual Therapy Hot or Cold Pack Electrical Stimulation Therapeutic Exercise Neuromuscular Re-Ed Manual Therapy Hot or Cold Pack Carrying, Moving And Handling Objects-Cu rrent Carrying, Moving And Handling Objects-Go al Therapeutic Exercise Neuromuscular Re-Ed Manual Therapy Hot or Cold Pack Therapeutic Exercise Neuromuscular Re-Ed Manual Therapy Hot or Cold Pack Electrical Stimulation PT Re-evaluation Therapeutic Exercise Manual Therapy Hot or Cold Pack Carrying, Moving And Handling Objects-Cu rrent Carrying, Moving And Handling Objects-Go al Therapeutic Exercise Manual Therapy Hot or Cold Pack Therapeutic Exercise Manual Therapy Hot or Cold Pack Electrical Stimulation Therapeutic Exercise Manual Therapy Hot or Cold Pack Therapeutic Exercise Manual Therapy Hot or Cold Pack Therapeutic Exercise Manual Therapy Hot or Cold Pack Therapeutic Exercise Manual Therapy Hot or Cold Pack Carrying, Moving And Handling Objects-Cu rrent Carrying, Moving And Handling Objects-Go al PT Evaluation High Complexity 7 Therapeutic Exercise Hot or Cold Pack Carrying, Moving And Handling Objects-Cu rrent Carrying, Moving And Handling Objects-Go al PT RE-EVALUATION THERAPEUTIC EXERCISES HOT/COLD PACK Self Care - Current Self Care - Goal Medications Name Dose Freq Route DOC Dec THERAPEUTIC EXERCISES MANUAL THERAPY HOT/COLD PACK THERAPEUTIC EXERCISES MANUAL THERAPY HOT/COLD PACK THERAPEUTIC EXERCISES NEUROMUSCULAR RE-ED MANUAL THERAPY HOT/COLD PACK THERAPEUTIC EXERCISES NEUROMUSCULAR RE-ED MANUAL THERAPY HOT/COLD PACK PT EVALUATION THERAPEUTIC EXERCISES MANUAL THERAPY HOT/COLD PACK Self Care - Current Self Care - Goal Medications Name Dose Freq Route DOC Dec Pain Assess Positive DOC 2015 BMI High F/U Plan DOC Functional Outcome Assessmen t documented, deficits identified, treatment plan es Advance Directives Directive Yes / No Effective Date File Name No Information Encounters Encounter Description Practice Location Reason(s) For Visit Diagnoses Date Provider Providers Copied on Encounter [facility], [id number], tel:[phone] [place] No Information 8 Elyssa Hina. [address] [facility], [facility] [address], [place], [address], [place]. tel:[phone] [facility] [address] [facility] [address], [place], [id number], [place] tel:[phone] [place] No Information 7 Elyssa Hina. [address] [facility], [facility] [address], [place], [address], [place]. tel:[phone] Referring Provider: Omer Frederick, [address] [place] [address] [address] [place], [address]. tel:[phone] [facility], [place], [place], [id number], [place] tel:[phone] [place] No Information 7 Chiquita Cabrales. . Referring Provider: Omer Frederick, [address] [place] [address] [address] [facility] [place] [place], [address]. tel:[phone] [facility] [address], [place], [place], [address], [place] tel:[phone] [place] No Information 7 Orlando Hina. [address] [facility], [address], [place], [place], [facility], [place]. tel:[phone] Referring Provider: Omer Frederick, [address] [place] [address] [address] [facility] [place] [place], [address]. tel:[phone] [facility] [address] [place], [place] [address], [place], [place], [address], [place] tel:[phone] [place] No Information 7 Orlando Hina. [address] [facility], [address], [place], [place], [facility], [place]. tel:[phone] Referring Provider: Omer Frederick, [address] [place] [address] [address] [place], [address]. tel:[phone] [facility] [address] [place], [place] [address], [place], [place], [address], [place] tel:[phone] [place] No Information 7 Elyssa Hina. [address] [facility], [address], [place], [place], [facility], [place]. tel:[phone] Referring Provider: Omer Frederick, [address] [place] [address] [address] [facility] [place] [place], [address]. tel:[phone] [facility] [address], [place], [place], [id number], tel:[phone] [place] No Information 0 7 Orlando Hina. [address] [facility], [address], [place], [address], [place]. tel:[phone] Referring Provider: Omer Frederick, [address] [place] [address] [address] [facility] [place] [place], [address]. tel:[phone] [address], [place], [id number], tel:[phone] [place] No Information Oct-2 6-201 7 Elyssa Hina. [address] [facility], [address], [place], [place], [facility], [place]. tel:[phone] Referring Provider: Omer Frederick, [address] [place] [address] [address] [place], [address]. tel:[phone] [address], [place], [id number], tel:[phone] [place] No Information Oct-2 3-201 7 Elyssa Hina. [address] [facility], [address], [place], [facility], [place]. tel:[phone] Referring Provider: Omer Frederick, [address] [place] [address] [address] [place], [address]. tel:[phone] [address], [place], [id number], tel:[phone] [place] No Information Oct-2 0-201 7 Orlando Hina. [address] [facility], [address], [place], [place], [facility], [place]. tel:[phone] Referring Provider: Omer Frederick, [address] [place] [address] [address] [place], [address]. tel:[phone] [address], [place], [address], [place] tel:[phone] [place] No Information Oct-1 8-201 7 Elyssa Hina. [address] [facility], [address], [place], [place], [facility], . tel:[phone] Referring Provider: Omer Frederick, [address] [place] [address] [address] [place], [address]. tel:[phone] [facility] [address], [place], [place], [address], [place] tel:[phone] [place] No Information 2-201 7 Elyssa Hina. [address] [place] [address], [address], [place], [facility], [place]. tel:[phone] Referring Provider: Omer Frederick, [address] [place] [address] [address] [place], [address]. tel:[phone], [place], [place], [address], [place] tel:[phone] [place] No Information 0 9-201 7 Elyssa Hina. [address] [place] [address], [address], [place], [place], [facility], [place]. tel:[phone] Referring Provider: Omer Frederick, [address] [place] [address] [address] [place], [address]. tel:[phone], [place], [place], [address], [place] tel:[phone] [place] No Information 2 8-201 7 Elyssa Hina. [address] [place] [address], [address], [place], [address], [place]. tel:[phone] Referring Provider: Omer Frederick, [address] [place] [address] [address] [place], [address]. tel:[phone], [place], [place], [address], [place] tel:[phone] [place] No Information Oct-2 1 7 Elyssa Hina. [address] [place] [address], [address], [place], [address], [place]. tel:[phone] Referring Provider: Omer Frederick, [address] [place] [address] [address] [place], [address]. tel:[phone], [place], [place], [address], [place] tel:[phone] [place] No Information 3201 7 Orlando Hina. [address] [facility], [facility] [address], [place], [address], . tel:[phone] Referring Provider: Omer Frederick, [address] [place] [address] [address] [facility] [place] [place], [address]. tel:[phone] [facility] [address], [place], [place], [address], [place] tel:[phone] [place] No Information 0 8-201 7 Elyssa Hina. [address] [facility], [address], [place], [facility], [place]. tel:[phone] Referring Provider: Omer Frederick, [address] [place] [address] [address] [place], [address]. tel:[phone] [facility] [address] [place], [place] [address], [place], [address], [place] tel:[phone] [place] No Information 6201 7 Elyssa Hina. [address] [facility], [address], [place], [address], [place]. tel:[phone] Referring Provider: Omer Frederick, [address] [place] [address] [address] [facility] [place], [address]. tel:[phone] [facility] [address] [facility] [address], [place], [address], [place] tel:[phone] [place] No Information 5201 7 Elyssa Hina. [address] [facility], [address], [place], [address], [place]. tel:[phone] Referring Provider: Omer Frederick, [address] [place] [address] [address] [facility] [place], [address]. tel:[phone] [facility], [address], [place], [address], tel:[phone] [place] No Information Sep-0 9-201 7 Orlando Hina. [address] [facility], [address], [place], [address], [place]. tel:[phone] Referring Provider: Omer Frederick, [address] [place] [address] [address], [place], [address]. tel:[phone] [facility], [address] [place], [place] [address], [place], [place], [address], [place] tel:[phone] [place] No Information 7 Orlando Hina. [address] [facility], [address], [place], [address], [place]. tel:[phone] Referring Provider: Omer Frederick, [address] [place] [address] [address] [facility] [place], [address]. tel:[phone] [facility] [address] [place], [place] [address]uite [facility], [place], [place], [address], [place] tel:[phone] [place] No Information Orlando Hina. [address] [facility], [address], [place], [address], [place]. tel:[phone] Referring Provider: Omer Frederick, 4 [facility] [address] [facility] [place], [address]. tel:[phone] [facility] [address] [place], [place] [address], [place], [place], [address], [place] tel:[phone] [place] No Information Elyssa Hina. [address] [place] [address], [address], [place], [address], [place]. tel:[phone] Referring Provider: Omer Frederick, 4 [facility] [address] [facility] [place] [place], [address]. tel:[phone] [facility] [address] [facility] [facility], [place], [place], [address], [place] tel:[phone] [place] Ot symptoms and signs involving the musculoskelet al systemAdhesiv e capsulitis of right shoulderPost- traumatic stress disorder, unspecified José Manuel-2 5-201 7 Orlando Hina. [address] [place] [address], [address], [place], [address], [place]. tel:[phone] Referring Provider: Omer Frederick, [address] [place] [address] [address] [place], [address]. tel:[phone] [facility], [facility] [address], [place], [place], [address], [place] tel:[phone] [place] No Information Nov-2 3-201 6 Orlando Hina. [address] [place] [address], [address], [place], [address], [place]. tel:[phone] [place] [address] [address], [place], [place], [address], [place] tel:[phone] [place] No Information 1-201 6 Orlando Hina. [address] [place] [address], [address], [place], [address], [place]. tel:[phone] [facility] [address], [place], [place], [address], [place] tel:[phone] [place] No Information 8-201 6 Elyssa Hina. [address] [place] [address], [address], [place], [address], [place]. tel:[phone] [facility] [address], [place], [place], [address], [place] tel:[phone] [place] No Information 1 6-201 6 Elyssa Hina. [address] [place] [address], [address], [place], [address], [place]. tel:[phone] [place] [address] [address], [place], [place], [address], [place] tel:[phone] [place] No Information Nov-0 9-201 6 Elyssa Hina. [address] [place] [address], [address], [place], [address], [place]. tel:[phone] [place] [address] [facility] [address], [place], [place], [address], [place] tel:[phone] [place] Pain in right shoulderStiff ness of right shoulder, not elsewhere classifiedMus ese weakness (generalized) Impingement syndrome of right shoulder 6 Elyssa Santamaria. [address] [facility], [address], [place], [address], [place]. tel:[phone] Family History Family Member Type Diagnosis Age At Onset No Information Payers Payer name Insurance type Covered green party ID Authorjolantaa lenore(s) [place] [id number] Social History Type Description Quantity Date Captured Comments Sex Female Smoking Status No Information Chief Complaint And Reason For Visit No Information Reason For Referral Reason For Referral No Information History Of Present Illness Encounter Date Complaint History Of Prese nt Illness No Information Functional Status Date Functional Assessmen t No Information Instructions Date Instruction Additional Infor mation No Information Assessments Type Assessment Date No Information Patient Care Teams Name Effective Dates (start - stop) Status Members No Information
--- OUTSIDE RECORDS SUMMARY | 2024-02-12 08:23 | XMS_ITS | Encounter Summary ---
Author Organization [facility] Health Address [address] [place] [address] Care Team Providers Care Radiation Oncologist Name Role Phone Wilmer Carnes MD Primary Care Provider Reason for Visit * Reason Comments Nose Problem 1 post op Encounter Details Date Type Department Care Team (Late st Contact Info) Description 03/04/2023 2:15 PM RESEARCH AND EVALUATION MANAGER Office Visit [facility] [address] [place] [address] [phone] Ellis Montano MD [address] [place] [address] [place] [address] Nasal valve collapse (Primary Dx); Hoarseness or [...] Comments Blood Pressure 143/83 03/04/2023 2:33 PM RESEARCH AND EVALUATION MANAGER Pulse 92 03/04/2023 2:33 PM RESEARCH AND EVALUATION MANAGER Temperature - - Respiratory Rate - - Oxygen Saturation - - Inhaled Oxygen Concentration - - Weight 86.6 kg (191 lb) 03/04/2023 2:33 PM RESEARCH AND EVALUATION MANAGER Height 160 cm (5' 3 ) 03/04/2023 2:33 PM RESEARCH AND EVALUATION MANAGER Body Mass Index 33.83 03/04/2023 2:33 PM RESEARCH AND EVALUATION MANAGER documented in this encounter Functional Status Functional [...] Instructions* Dee Pham - 03/04/2023 2:33 PM RESEARCH AND EVALUATION MANAGER Thank you for visiting [facility]. We [...] an appointment, please call our office at [phone] Friday through Friday from 8:00 am to4:30 pm. You can also request a routine appointment through your [email or web address] account. Prescription Refills Contact your pharmacy to [...] the medical exchange at and ask the glue spreading machine operator to page the ENT physician strategic solutions consultant. *Caller ID blocking service will need to be turned off for your call to be returned. We also specialize in Hearing Aids, Allergy testing, swallowing disorders, voice problems, cancer diagnosis, and so much more. Visit our website at [email or web address] for information about our practice and an interactive health encyclopedia. ARCH AND EVALUATION MANAGER documented in this encounter Progress Notes [...] (one) tablet by mouth once daily ??? DUHEM Ultra test strip USE WITH METER FOUR [...] my ability. F/u with Dr. Antunez and CORPORATE LAWYER within 1-2 weeks Follow up in 3 months with me ARCH AND EVALUATION MANAGER documented in this encounter Procedure Notes * Ellis Montano MD - 03/04/2023 8:29 PM CSTAssociated Order(s): PROC ENDOSCOPY-LARYNX Procedure(s): VT LARYNGOSCOPY,FLEX FIBER,DIAGNOSTIC Pre-Procedure Diagnose(s): Hoarseness or changing [...] hypopharynx. 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 ARCH AND EVALUATION MANAGER documented in this encounter Plan of Treatment Not on file documented as of this encounter Procedures Procedure Name Priority Date/Time Associated Diagnosis Comments VT LARYNGOSCOPY,FLEX FIBER,DIAGNOSTIC Routine 03/04/2023 8:29 PM RESEARCH AND EVALUATION MANAGER Hoarseness or changing voice documented in this encounter Results * VT LARYNGOSCOPY,FLEX FIBER,DIAGNOSTIC (03/04/2023 8:29 PM RESEARCH AND EVALUATION MANAGER) Narrative Ellis Montano MD - 03/04/2023 8:29 PM RESEARCH AND EVALUATION MANAGER Ellis Montano MD ? 03/04/2023 ??8:33 PM [...] disorders documented in this encounter Care Teams Radiation Oncologist Relationship Specialty Start Date End Date Wilmer Carnes MD [address] [place] [address] PCP - General Family Medicine 01/16/21 documented as of this encounter
--- OUTSIDE RECORDS SUMMARY | 2024-02-12 08:23 | XMS_ITS | Encounter Summary ---
Author Organization [facility] Address [address] [place] [address] Care Team Providers Care Hairspring Truing Inspector Name Role Phone Wilmer Carnes MD Primary Care Provider [phone] Reason for Visit * Reason Onset Date Comments Surgical Followup 02/21/2023 Encounter Details Date Type Department Care Team (Late st Contact Info) Description 02/21/2023 Telephone [facility] [address] [place] [address] [phone] Ellis Montano MD [address] [place] [address] [place] [address] Surgical Followup Social History Tobacco Use Types [...] in 02/27 at 0815. Spoke with pt. IR CLERK * Telephone Encounter - Aliyah Narvaez RN [...] No bleeding. Asked her to send pictures. IR CLERK * Telephone Encounter - Kalyani Onofre RN - 02/21/2023 10:08 AM CST Pt states saw her regular ENT today, Dr. Esparza, and he said she should contact us about her nose, since she recently had surgery IR CLERK documented in this encounter Plan of Treatment Not on file documented as of this encounter Visit Diagnoses Not on filedocumented in this encounter Care Teams Hairspring Truing Inspector Relationship Specialty Start Date End Date Wilmer Carnes MD [address] [place] [address] PCP - General Family Medicine 01/16/21 documented as of this encounter
--- OUTSIDE RECORDS SUMMARY | 2024-02-12 08:23 | XMS_ITS | Encounter Summary ---
Author Organization [facility] Address [address] [facility] [place] [address] Care Team Providers Care Manager Drug Name Role Phone Wilmer Carnes MD Primary Care Provider Reason for Visit * Reason Onset Date Comments Follow-up 02/14/[address] surgery Encounter Details Date Type Department Care Team (Late st Contact Info) Description 02/14/2023 Telephone [facility] [address] [place] [address] [phone] Veronica Maravilla, RN Follow-up (Note for work [...] to return to work at job at [employer]. Pt acknowledges understanding. ENT DEVELOPER documented in this encounter Plan of Treatment Not on file documented as of this encounter Visit Diagnoses Not on filedocumented in this encounter Care Teams Manager Drug Relationship Specialty Start Date End Date Wilmer Carnes MD [address] [place] [address] PCP - General Family Medicine 01/16/21 documented as of this encounter
--- OUTSIDE RECORDS SUMMARY | 2024-02-12 08:23 | XMS_ITS | Encounter Summary ---
Author Organization [facility] Health Address [address] [place] [address] Care Team Providers Care Rejoiner Name Role Phone Wilmer Carnes MD Primary [...] on filedocumented in this encounter Care Teams Rejoiner Relationship Specialty Start Date End Date Wilmer Carnes MD [address] [facility] [address] [place] [address] PCP - General Family Medicine 01/16/21 documented as of this encounter
--- OUTSIDE RECORDS SUMMARY | 2024-02-12 08:23 | XMS_ITS | Encounter Summary ---
Author Organization [facility] Address [address] [place] [address] Care Team Providers Care Surveyor Rod Helper Name Role Phone Wilmer Carnes MD Primary [...] on filedocumented in this encounter Care Teams Surveyor Rod Helper Relationship Specialty Start Date End Date Wilmer Carnes MD [address] [place] [address] PCP - General Family Medicine 01/16/21 documented as of this encounter
--- OUTSIDE RECORDS SUMMARY | 2024-02-12 08:23 | XMS_ITS | Encounter Summary ---
Author Organization [facility] Health Address [address] [facility] [place] [address] Care Team Providers Care Director Instructional Material Name Role Phone Wilmer Carnes MD Primary Care Provider Reason for Visit * Reason Comments Surgical Follow-up Encounter Details Date Type Department Care Team (Late st Contact Info) Description 02/18/2023 3:30 PM SPRING FORMER MACHINE Office Visit [facility] [address] [place] [address] Pillo Stearns MD [address] [facility] [address] [place] [address] Obstruction of nasal valve (Primary [...] in [address] Charmaine Stearns MD NG FORMER MACHINE documented in this encounter Plan of Treatment Not on file documented as of this encounter Visit Diagnoses Diagnosis Obstruction of nasal valve- Primary Other diseases of nasal cavity and sinuses documented in this encounter Care Teams Director Instructional Material Relationship Specialty Start Date End Date Wilmer Carnes MD [address] [place] [address] PCP - General Family Medicine 01/16/21 documented as of this encounter
--- OUTSIDE RECORDS SUMMARY | 2024-02-12 08:23 | XMS_ITS | Encounter Summary ---
Author Organization [facility] Address [address] [facility] [place] [address] Care Team Providers Care Proof Tester Name Role Phone Wilmer Carnes MD Primary Care Provider Reason for Visit * Reason Onset Date Comments Speech Therapy 03/06/2023 Encounter Details Date Type Department Care Team (Late st Contact Info) Description 03/06/2023 Telephone [facility] [address] [place] [phone] Leyla Sears, CARMELA [address] [place] [address] Speech Therapy Social History Tobacco [...] - Ainsley Salazar - 03/06/2023 10:08 AM SWIMMING COACH OR INSTRUCTOR Speech Therapy Prior Auth Check Primary Insurance: [employer] HMO-POS CPT Codes Voice/VCD/Chronic Cough/Throat Clearing Eval 04739: NPR Treat 41807: NPR Only need to check CPT codes that pertain to the visit. Not all codes will be billed for. Please refer to physician's note. MING COACH OR INSTRUCTOR documented in this encounter Plan of Treatment Not on file documented as of this encounter Visit Diagnoses Not on filedocumented in this encounter Care Teams Proof Tester Relationship Specialty Start Date End Date Wilmer Carnes MD [address] [place] [address] PCP - General Family Medicine 01/16/21 documented as of this encounter
--- OUTSIDE RECORDS SUMMARY | 2024-02-12 08:23 | XMS_ITS | Encounter Summary ---
Author Organization [facility] Health Address [address] [facility] [place] [address] Care Team Providers Care Talent Manager Name Role Phone Wilmer Carnes MD Primary Care Provider Encounter Details Date Type Department Care Team (Latest Contact Info) Description 02/06/2023 11:24 AM SOLAR SALES ASSOCIATE - 02/06/2023 11:59 PM [facility] Hospital Encounter [facility] DRAW STATION [address] [place] [phone] Ellis Montano MD [address] [place] [address] Discharge Disposition: Home or Self Care Social [...] 08/05/2022 mupirocin (Bactroban) 2 % ointment 10/31/2022 [email or web address] Ultra test strip USE WITH METER FOUR [...] on filedocumented in this encounter Care Teams Talent Manager Relationship Specialty Start Date End Date Wilmer Carnes MD [address] [place] [address] PCP - General Family Medicine 01/16/21 documented as of this encounter
--- OUTSIDE RECORDS SUMMARY | 2024-02-12 08:23 | XMS_ITS | Patient Health Summary ---
Author Organization [facility] Address [address] [place] [address] Care Team Providers Care Social Problems Specialist Name Role Phone Wilmer Carnes MD Primary Care Provider [phone] Note from [facility],non-owned Affiliates and Associated Physician Practices is amultiple site organization consisting of ambulatory clinics and hospital sitesin [place], [place], [place] and [place]. This disclosure is being madepursuant to the Care Everywhere program and may not contain all information available regarding this patient. Last updated 17.[facility] Allergies * Parada(Anaphylaxis) -High Criticality * Iodine(Rash) [...] (Bactroban) 2 % ointment(Started 10/31/2022) * Lancets (Capsule TechTOUCH DELICA PLUS 33G EXTRA FINE LANCET)(Started 08/05/2022) TEST 3 TO 4 TIMES DAILY * B-D UF III MINI PEN NEEDLES 31G X 5 MM needle(Started 02/07/2021) * Blitz X Performance InstrumentsTouch Ultra test strip(Started 08/05/2022) USE WITH METER [...] Comments Blood Pressure 143/83 03/04/2023 2:33 PM THERAPEUTIC CASE MANAGER Pulse 92 03/04/2023 2:33 PM THERAPEUTIC CASE MANAGER Temperature 36.6 ??C (97.8 ??F) 02/12/2023 11:[address] Respiratory Rate 16 02/12/2023 11:39 AM THERAPEUTIC CASE MANAGER Oxygen Saturation 95% 02/12/2023 12:45 PM THERAPEUTIC CASE MANAGER Inhaled Oxygen Concentration - - Weight 86.6 kg (191 lb) 03/04/2023 2:33 PM THERAPEUTIC CASE MANAGER Height 160 cm (5' 3 ) 03/04/2023 2:33 PM THERAPEUTIC CASE MANAGER Body Mass Index 33.83 03/04/2023 2:33 PM THERAPEUTIC CASE MANAGER Procedures * FL LARYNGOSCOPY,FLEX FIBER,DIAGNOSTIC(Performed 03/04/2023) Performed for Hoarseness or changing voice * GLUCOSE - POINT OF CARE(Performed 02/12/2023) * FL REPAIR NASAL CAVITY STENOSIS(Performed 02/12/2023) Performed for Nasal valve collapse * ENDOTRACHEAL TUBE NOTE(Performed 02/12/2023) * HCG URINE QUALITATIVE - POCT (IP) INTERFACED(Performed 02/12/2023) * GLUCOSE - POINT OF CARE(Performed 02/12/2023) * HCG URINE QUAL POCT NOTIFICATION(Performed 02/12/2023) Performed for Pre-op testing * BASIC METABOLIC PANEL (CALCIUM TOTAL)(Performed 02/06/2023) Performed for Pre-op evaluation * CBC W/O DIFFERENTIAL(Performed 02/06/2023) Performed for Pre-op evaluation * FL NASAL ENDOSCOPY,DX(Performed 12/12/2022) Performed for Nasal valve collapse * XR HAND BILAT 3VW OR MORE(Performed 01/16/2021) 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 ([facility]) * XR FOOT BILAT 3VW OR MORE(Performed 01/16/2021) 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 ([facility]) * RHEUMATOID FACTOR BLOOD QUANTITATIVE(Performed 01/16/2021) 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 ([facility]) * CYCLIC CITRUL PEPTIDE ANTIBODY IGG/IGA (CCP)(Performed 01/16/2021) 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 ([facility]) * ERYTHROCYTE SEDIMENTATION RATE(Performed 01/16/2021) 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 03/04/2023 ??8:33 [...] - POINT OF CARE (02/12/2023 11:45 AM THERAPEUTIC CASE MANAGER) Only the most recent of2 resultswithin the time period is included. Glucose WB/POC 92 70 - 115 mg/dL 02/12/2023 11:50 AM THERAPEUTIC CASE MANAGER [facility] Specimen Type Venous 02/12/2023 11:50 AM THERAPEUTIC CASE MANAGER [facility] Blood BLOOD SPECIMEN / Unknown 02/12/2023 11:45 AM THERAPEUTIC CASE MANAGER 02/12/2023 11:50 AM THERAPEUTIC CASE MANAGER Ellis Montano MD LAB - POINT OF CARE ORDERABLES [facility] [address] [place] [address], [place] [phone] * ETT LINE PERFORMABLE (02/12/2023 9:35 AM THERAPEUTIC CASE MANAGER) Narrative Sampson Urrutia, DO - 02/12/2023 9:35 AM THERAPEUTIC CASE MANAGER Sampson Urrutia, DO ? 02/12/2023 ??9:36 AM Endotracheal Tube Placement: ? Patient Location: OR. Intubation Event Date/Time: ??02/12/2023 9:19 AM Procedure: intubation ([id number]). Procedure Section: ?? Sedation: under general anesthesia. [...] - POCT (IP) INTERFACED (02/12/2023 7:46 AM THERAPEUTIC CASE MANAGER) HCG Qual Urine Negative Negative 02/12/2023 7:53 AM THERAPEUTIC CASE MANAGER [facility] Urine URINE / Unknown 02/12/2023 7 :46 AM THERAPEUTIC CASE MANAGER 02/12/2023 7:53 AM THERAPEUTIC CASE MANAGER Ellis Montano MD LAB - POINT OF CARE ORDERABLES Performing Organization Address City/[facility]/ZIP Co de Phone Number [address] [address], [place] [phone] * HCG URINE QUAL POCT NOTIFICATION (02/12/2023 7:41 AM THERAPEUTIC CASE MANAGER) Comment Notification Label Only - See Separate Report 02/12/2023 9:01 AM [facility] Urine URINE / Unknown 02/12/2023 7 :41 AM THERAPEUTIC CASE MANAGER 02/12/2023 7:41 AM THERAPEUTIC CASE MANAGER Ellis Montano MD LAB - URINALYSIS ORD ERABLES Performing Organization Address City/[facility]/ZIP Co de Phone Number [address] [address], [facility] [phone] * CBC W/O DIFFERENTIAL (02/06/2023 11:40 AM THERAPEUTIC CASE MANAGER) WBC 7.3 3.5 - 10.5 10? 3 /uL 02/06/2023 12:07 PM [facility] RBC 4.83 3.80 - 5.20 10? 6 /uL 02/06/2023 12:07 PM [facility] Hemoglobin 13.0 12.0 - 15.6 g/dL 02/06/2023 12:07 PM [facility] Hematocrit 39.6 35.0 - 45.0 % 02/06/2023 12:07 PM [facility] MCV 82.0 80.7 - 98.3 fL 02/06/2023 12:07 PM [facility] MCH 26.9 26.7 - 34.0 pg 02/06/2023 12:07 PM [facility] MCHC 32.8 30.8 - 35.9 g/dL 02/06/2023 12:07 PM [facility] RDW-SD 41.5 36.0 - 50.0 fL 02/06/2023 12:07 PM [facility] RDW-CV 14.0 11.2 - 14.8 % 02/06/2023 12:07 PM [facility] Platelet Count 248 150 - 400 10? 3 /uL 02/06/2023 12:07 PM [facility] MPV 10.1 9.4 - 12.9 fL 02/06/2023 12:07 PM [facility] nRBC Absolute 0.00 0 10? 3 /uL 02/06/2023 12:07 PM [facility] nRBC Auto 0.0 0 /100 WBC 02/06/2023 12:07 PM [facility] Blood BLOOD SPECIMEN / Unknown Lab Venipuncture / Unknown 02/06/2023 11:40 AM THERAPEUTIC CASE MANAGER 02/06/2023 11:56 AM THERAPEUTIC CASE MANAGER Blessing Lakhani [employer] LAB - HEMATOL OGY ORDERABLES [facility] [address] [place] [address], [facility] [phone] * (ABNORMAL) BASIC METABOLIC PANEL (CALCIUM TOTAL) (02/06/2023 11:40 AM THERAPEUTIC CASE MANAGER) BUN 10 7 - 26 mg/dL 02/06/2023 1:10 PM [facility] Creatinine 0.62 0.56 - 0.96 mg/dL 02/06/2023 1:10 PM [facility] Sodium 139 136 - 145 mmol/L 02/06/2023 1:10 PM [facility] Potassium 3.4(L) 3.5 - 4.5 mmol/L 02/06/2023 1:10 PM [facility] Chloride 108(H) 98 - 107 mmol/L 02/06/2023 1:10 PM [facility] CO2 25 22 - 29 mmol/L 02/06/2023 1:10 PM [facility] Glucose 177(H) 70 - 115 mg/dL 02/06/2023 1:10 PM [facility] Calcium 9.2 8.4 - 10.2 mg/dL 02/06/2023 1:10 PM [facility] Anion Gap 6 6 - 16 02/06/2023 1:10 PM [facility] BUN/Creatinine Ratio 16 7 - 23 02/06/2023 1:10 PM THERAPEUTIC CASE MANAGER [facility] Osmolality Calculated 291 275 - 295 mOsm/kg 02/06/2023 1:10 PM [facility] eGFR by CKD-EPI >90 >=90 mL/min/1.7 3 m2 02/06/2023 1:10 PM THERAPEUTIC CASE MANAGER [facility] Blood BLOOD SPECIMEN / Unknown Lab Venipuncture / Unknown 02/06/2023 11:40 AM THERAPEUTIC CASE MANAGER 02/06/2023 11:56 AM THERAPEUTIC CASE MANAGER Nutrpatti Lakhani [employer] LAB - SAFETY LAMP KEEPER RY ORDERABLES [facility] [address] [place] [address], [facility] [phone] * FL NASAL ENDOSCOPY,DX (12/12/2022 5:03 PM CDT) Narrative Ellsi Montano MD - 12/12/2022 5:03 PM CDT [...] BILAT 3VW OR MORE (01/16/2021 4:28 PM THERAPEUTIC CASE MANAGER) Anatomical Region Laterality Modality Ankle / Foot, Lower Extremity Ra diographic Imaging 01/16/2021 4:41 PM THERAPEUTIC CASE MANAGER Narrative 01/16/2021 5:06 PM THERAPEUTIC CASE MANAGER BILATERAL FEET, SIX VIEW HISTORY: Seronegative [...] BILAT 3VW OR MORE (01/16/2021 4:28 PM THERAPEUTIC CASE MANAGER) Anatomical Region Laterality Modality Upper Extremity, Wrist / Hand Ra diographic Imaging 01/16/2021 4:33 PM THERAPEUTIC CASE MANAGER Narrative 01/16/2021 4:43 PM THERAPEUTIC CASE MANAGER BILATERAL HANDS, THREE VIEW HISTORY: Pain. [...] * MITOCHONDRIAL ANTIBODY SCREEN (01/16/2021 3:53 PM THERAPEUTIC CASE MANAGER) Mitochondrial M2 Antibody <20.0 0.0 - 20.0 Units [facility] INSURANCE BILL Comment: ? Negative ?0.0 - 20.0 ? Equivocal ??20.1 - 24.9 ? Positive ? >24.9 ? . ? Mitochondrial (M2) Antibodies are found in 90-96% of ? patients with primary biliary cirrhosis. FASTING Blood BLOOD SPECIMEN / Unknown 01/16/2021 3:53 PM THERAPEUTIC CASE MANAGER 01/16/2021 Narrative Resulting Agency Comment Lab Testing performed at: [facility] [address] ??[facility] [phone] Walter Schaefer DO LAB - CHEMISTRY JASMIN BARBOUR [facility] [address] [place] [address] * CYCLIC CITRUL PEPTIDE ANTIBODY IGG/IGA (CCP) (01/16/2021 3:53 PM THERAPEUTIC CASE MANAGER) CCP Antibodies IgG/IgA 7 0 - 19 units [facility] Comment: ? Negative ? <20 ? Weak positive ?20 - 39 ? Moderate positive ??40 - 59 ? Strong positive ?>59 Blood BLOOD SPECIMEN / Unknown 01/16/2021 3:53 PM THERAPEUTIC CASE MANAGER 01/16/2021 Narrative Resulting Agency Comment Lab Testing performed at: [address] ??[facility] [phone] Walter Schaefer DO LAB - SEROLOGY ORDER DORIS [facility] INSURANCE BILL [address] [place] [address] * RHEUMATOID FACTOR BLOOD QUANTITATIVE (01/16/2021 3:53 PM THERAPEUTIC CASE MANAGER) Rheumatoid Factor <15 <30 IU/mL [facility] INSURANCE BILL Blood BLOOD SPECIMEN / Unknown 01/16/2021 3:53 PM THERAPEUTIC CASE MANAGER 01/16/2021 Narrative Resulting Agency Comment Lab Testing performed at: [address] ??[facility] [phone] Walter Schaefer DO LAB - CHEMISTRY JASMIN BARBOUR Performing Organization Address [facility] de Phone Number [facility] INSURANCE BILL [address] [place] [address] * (ABNORMAL) C-REACTIVE PROTEIN (01/16/2021 3:53 PM THERAPEUTIC CASE MANAGER) C-Reactive Protein 0.74(H) <=0.50 mg/dL [facility] INSURANCE BILL Blood BLOOD SPECIMEN / Unknown 01/16/2021 3:53 PM THERAPEUTIC CASE MANAGER 01/16/2021 Narrative Resulting Agency Comment Lab Testing performed at: [address] ??[facility] [phone] Walter Schaefer DO LAB - CHEMISTRY JASMIN BARBOUR Performing Organization Address [facility] de Phone Number [facility] INSURANCE BILL [address] [place] [address] * SMOOTH MUSCLE ANTIBODY (01/16/2021 3:53 PM THERAPEUTIC CASE MANAGER) Actin (Smooth Muscle) Antibody 13 0 [...] BLOOD SPECIMEN / Unknown 01/16/2021 3:53 PM THERAPEUTIC CASE MANAGER 01/16/2021 Narrative Resulting Agency Comment Lab Testing performed at: [facility] [address] ??[facility] [phone] Walter Schaefer DO LAB - SEROLOGY ORDER DORIS Performing Organization Address City/[facility]/ZIP Co de Phone Number [facility] INSURANCE BILL [address] [place] [address] * ERYTHROCYTE SEDIMENTATION RATE (01/16/2021 3:53 PM THERAPEUTIC CASE MANAGER) Pathologist [facility] Erythrocyte Sedimentation Rate Westergren 12 0 - 20 MM/HR [facility] INSURANCE BILL Blood BLOOD SPECIMEN / Unknown 01/16/2021 3:53 PM THERAPEUTIC CASE MANAGER 01/16/2021 Narrative Resulting Agency Comment Lab Testing performed at: [facility] [address] ??[facility] [phone] Walter Schaefer DO LAB - HEMATOLOGY ORD ERABLES Performing Organization Address City/[facility]/ZIP Co de Phone Number [facility] INSURANCE BILL [address] [place] [address] * INFLUENZA A+B - POINT OF CARE (AMB) (01/18/2019 10:45 AM THERAPEUTIC CASE MANAGER) Influenza A Antigen Rapid Negative Negative Influenza B Antigen Rapid Negative Negative Influenza Internal Control present NEGATIVE - POSITIVE Influenza Lot Number [id number] Influenza Expiration Date 06 03 2020 Other NASOPHARYNGEAL SWAB / Unknown 01/18/2019 10:45 AM THERAPEUTIC CASE MANAGER Jaun Lund [employer] LAB - POINT OF CA RE ORDERABLES * (ABNORMAL) CBC W AUTO DIFFERENTIAL (08/12/2010 1:20 AM CDT) WBC 8.7 4.5 - 11.0 1000/mm3 [facility] RBC 4.61 4.2 - 5.4 10X6 [facility] Hemoglobin 13.1 12.0 - 16.0 gm/dl [facility] Hematocrit 38.0 36.0 - 48.0 % [facility] MCV 82.4 80.0 - 99.0 fl [facility] MCH 28.4 25.0 - 31.0 pg [facility] MCHC 34.5 32.0 - 36.0 gm/dl [facility] RDW 13.8 11.5 - 14.5 % [facility] Platelet Count 255 130.0 - 400.0 1000/mm3 [facility] Granulocytes % 79.6(H) 40.0 - 70.0 % [facility] Lymphocytes % 15.6(L) 22.0 - 40.0 % [facility] Monocytes % 4.4 2.0 - 10.0 % [facility] Eosinophils % 0.2 0.0 - 6.0 % [facility] Basophils % 0.2 0.0 - 3.0 % [facility] Granulocytes Absolute 6.92 1.8 - 7.7 [facility] Lymphocytes Absolute 1.36 1.0 - 5.4 [facility] Monocytes Absolute 0.38 0.1 - 1.1 [facility] Eosinophils Absolute 0.02 0.0 - 0.7 [facility] Basophils Absolute 0.02 0.0 - 0.2 [facility] Comment Manual Diff Not Indicated [facility] BLOOD SPECIMEN / Unknown 08/12/2010 1:20 AM CDT 08/12/2010 2:22 AM CDT Aquilino Moore MD LAB - HEMATOLOGY ORD ERABLES [facility] [address] [place] [address] * (ABNORMAL) COMPREHENSIVE METABOLIC PANEL (08/12/2010 1:20 AM CDT) BUN 6(L) 7.0 - 17.0 mg/dl [facility] Sodium 138 137 - 145 mmol/L [facility] Potassium 4.0 3.6 - 5.0 mmol/L [facility] Chloride 104 98.0 - 107.0 mmol/L [facility] Glucose 106(H) 70 - 105 mg/dl [facility] Creatinine 0.5(L) 0.52 - 1.05 mg/dl [facility] AST 44(H) 14.0 - 36.0 U/L [facility] Alkaline Phosphatase 63 38.0 - 126.0 U/L [facility] Calcium 8.8 8.4 - 10.2 mg/dl [facility] Bilirubin Total 0.8 0.2 - 1.3 mg/dl [facility] Albumin 3.8 3.5 - 5.0 gm/dl [facility] Protein Total 6.5 6.3 - 8.2 gm/dl [facility] CO2 27 22.0 - 30.0 mEq/L [facility] ALT 83(H) 9.0 - 52.0 U/L [facility] eGFR by MDRD 139.61 mL/min/1.7 3m2 [facility] BLOOD SPECIMEN / Unknown 08/12/2010 1:20 AM CDT 08/12/2010 2:22 AM CDT Aquilino Moore MD LAB - CHEMISTRY JASMIN BARBOUR Performing Organization Address City/[facility] Co de Phone Number [facility] [address] [place] [address] * MAGNESIUM BLOOD (08/12/2010 1:20 AM CDT) Magnesium 1.9 1.6 - 2.3 mg/dl [facility] BLOOD SPECIMEN / Unknown 08/12/2010 1:20 AM CDT 08/12/2010 2:22 AM CDT Aquilino Moore MD LAB - CHEMISTRY JASMIN BARBOUR Performing Organization Address [facility] Co de Phone Number [facility] [address] [place] [address] * LIPASE BLOOD (08/12/2010 1:20 AM CDT) Lipase 54 23.0 - 300.0 U/L [facility] BLOOD SPECIMEN / Unknown 08/12/2010 1:20 AM CDT 08/12/2010 2:22 AM CDT Aquilino Moore MD LAB - CHEMISTRY JASMIN BARBOUR Performing Organization Address [facility] Co de Phone Number [facility] [address] [place] [address] * AMYLASE BLOOD (08/12/2010 1:20 AM CDT) Amylase 71 30.0 - 110.0 U/L [facility] BLOOD SPECIMEN / Unknown 08/12/2010 1:20 AM CDT 08/12/2010 2:22 AM CDT Aquilino Moore MD LAB - CHEMISTRY ANÍBALCarl BARBOUR Performing Organization Address [facility] de Phone Number [facility] [address] [place] [address] * XR RIBS UNILATERAL RIGHT W PA [...] or syntax problems by a trained medical laboratory scientist. For questions about the report, please contact [...] or syntax problems by a trained medical laboratory scientist. For questions about the report, please contact [...] be identified. The no pleural effusions. No [id number] rib fracture identified. The heart size appears normal. This report was transcribed with a computerized speech recognition system. ??In an effort to expedite patient care, it has not been adjusted for typographical, grammatical or syntax problems by a trained medical laboratory scientist. For questions about the report, please contact [...] be identified. The no pleural effusions. No [id number] rib fracture identified. The heart size appears normal. This report was transcribed with a computerized speech recognition system. In an effort to expedite patient care, it has not been adjusted for typographical, grammatical or syntax problems by a trained medical laboratory scientist. For questions about the report, please contact [...] or syntax problems by a trained medical laboratory scientist. ?? Findings: There is no intracranial mass-effect [...] or syntax problems by a trained medical laboratory scientist. Findings: There is no intracranial mass-effect or [...] lips appear thickened. I consulted with our surgical technologist who indicated the patient did not appear to have bruising or thickening of the lips therefore this could be an artifact secondary to the cervical collar. This report was transcribed with a computerized speech recognition system. ??In an effort to expedite patient care, it has not been adjusted for typographical, grammatical or syntax problems by a trained medical laboratory scientist. For questions about the report, please contact [...] lips appear thickened. I consulted with our surgical technologist who indicated the patient did not appear to have bruising or thickening of the lips therefore this could be an artifact secondary to the cervical collar. This report was transcribed with a computerized speech recognition system. In an effort to expedite patient care, it has not been adjusted for typographical, grammatical or syntax problems by a trained medical laboratory scientist. For questions about the report, please contact [...] HCG Qual Serum Not Detected Not Detected [facility] BLOOD SPECIMEN / Unknown 08/11/2010 8:10 AM CDT 08/11/2010 8:17 AM CDT Eber Mckinney DO LAB - CHEMISTRY OR DERABLES [facility] [address] [place] [address] * XR SHOULDER 2+ VW LEFT (03/17/2010 2:31 AM THERAPEUTIC CASE MANAGER) Anatomical Region Laterality Modality Upper Extremity Radiographic Evelyn ging 03/17/2010 9:00 AM THERAPEUTIC CASE MANAGER Impressions 03/17/2010 10:00 AM THERAPEUTIC CASE MANAGER No acute osseous abnormality. Narrative 03/17/2010 10:00 AM THERAPEUTIC CASE MANAGER LEFT SHOULDER 2 VIEWS INDICATION: ??Left shoulder [...] IMPRESSION No acute osseous abnormality. Jaja Christopher [employer] DIAGNOSTIC IMAGING ORDERABLES * XR HIP 2+ VW RIGHT (03/17/2010 2:30 AM THERAPEUTIC CASE MANAGER) Anatomical Region Laterality Modality Pelvis, Lower Extremity Radiogra phic Imaging 03/17/2010 9:01 AM THERAPEUTIC CASE MANAGER Impressions 03/17/2010 10:00 AM THERAPEUTIC CASE MANAGER ??No acute osseous abnormality. Narrative 03/17/2010 10:00 AM THERAPEUTIC CASE MANAGER RIGHT HIP 2 VIEWS INDICATION: ??Right hip [...] - POINT OF CARE (03/17/2010 2:06 AM THERAPEUTIC CASE MANAGER) HCG Qual Urine neg Negative [facility] POCT TESTING QC Verified yes Yes [facility] POC T TESTING Urine specimen (specimen) URINE / Unknown 03/17/2010 2:06 AM THERAPEUTIC CASE MANAGER So Samuel WREN LAB - POIN T OF CARE ORDERABLES [facility] POCT TESTING [address] [place] [address] Care Teams Social Problems Specialist Relationship Specialty Start Date End Date Wilmer Carnes MD [address] [place] [address] PCP - General Family Medicine 01/16/21
--- OUTSIDE RECORDS SUMMARY | 2024-02-12 08:23 | XMS_ITS | Encounter Summary ---
Author Organization [facility] Health Address [address] [place] [address] Care Team Providers Care Bindery Operator Name Role Phone Wilmer Carnes MD Primary Care Provider Reason for Visit * Auth/Cert (Routine) Specialty Diagnoses / Procedures Referred By Contac t Referred To Contact Diagnoses Nasal valve collapse NASAL VALVE COLLAPSE Procedures DE REPAIR NASAL CAVITY STENOSIS RECONSTRUCTION/REPAIR NASAL Referral ID Status Reason Start Date Expiration Date Visits Re quested Visits Authorized [id number] 1 1 Encounter Details Date Type Department Care Team (Latest Contact Info) Description 02/12/2023 6:54 AM LINE RUNNER - 02/12/2023 1:10 PM LINE RUNNER Hospital Encounter [facility] [address] [place] [id number] Ellis Montano MD [address] [place] [address] Surgery General Discharge Disposition: Home or Self [...] Comments Blood Pressure 121/75 02/12/2023 12:45 PM LINE RUNNER Pulse 78 02/12/2023 12:45 PM LINE RUNNER Temperature 36.6 ??C (97.8 ??F) 02/12/2023 11:[address] Respiratory Rate 16 02/12/2023 11:39 AM LINE RUNNER Oxygen Saturation 95% 02/12/2023 12:45 PM LINE RUNNER Inhaled Oxygen Concentration - - Weight 85.4 kg (188 lb 4.8 oz) 02/12/2023 7:32 A M LINE RUNNER Height 160 cm (5' 3 ) 02/12/2023 7:32 AM LINE RUNNER Body Mass Index 33.36 02/12/2023 7:32 AM LINE RUNNER documented in this encounter Functional Status Functional [...] needed for Pain 30 tablet 02/12/2023 Lancets (SymbioCellTechTOUCH DELICA PLUS 33G EXTRA FINE LANCET) TEST 3 TO 4 TIMES DAILY 08/05/2022 mupirocin (Bactroban) 2 % ointment 10/31/2022 norethindrone (Aygestin) 5 MG tablet Take 1 (one) tablet by mouth once daily 02/08/2023 FIA Formula E Ultra test strip USE WITH METER FOUR [...] controls ??? COPD (chronic obstructive pulmonary disease) ([facility]) ??? Delayed emergence from anesthesia ??? [...] 0-6 Units Intravenous Once Lakhani, Nutressa A, PRIVATE SECTOR EXECUTIVE-ELECTRICAL MANAGER ??? lactated ringers infusion Intravenous pre-OP continuous Lakhani, Nutressa A, PRIVATE SECTOR EXECUTIVE-ELECTRICAL MANAGER 20 mL/hr at 02/12/23 0751 New Bag at 02/12/23 0751 REVIEW OF SYSTEMS 11 point review of systems was obtained and is negative except for as noted in the HPI and per medical information officer notes PHYSICAL EXAM BP 130/78 Pulse 81 [...] Otolaryngology Head & Neck Surgery PGY-5 02/12/2023 RUNNER Associated attestation - Ellis Montano MD - 02/12/2023 8:57 AM LINE RUNNER Also consented for possible bilateral inferior turbinate reduction documented in this encounter Nursing Notes * Hortencia Thomas RN - 02/12/2023 1:15 PM CST Patient cam back from PACU at 11:35am and had intranasal sutures and left ear bolster. All intact. RUNNER documented in this encounter OR Notes * Operative - Ellis Montano MD - 02/12/2023 9:36 AM CST OPERATIVE REPORT NAME: Oumou Middleton : 1975 CSN: [id number] DATE OF OPERATION: 02/12/2023 ATTENDING SURGEON: Ellis Montano MD Pre-Op Diagnosis: -Nasal obstruction -Nasal valve collapse Post-Op Diagnosis: Same Procedure: -Nasal valve repair (CPT 76183) -Auricular cartilage graft (CPT 06290) Operative findings: -Bilateral alar pham grafts placed through marginal incisions, cartilage harvested from left auricular hoda Air Control Electronics Operator Daren Frausto MD Indications for procedure: Oumou [...] was overlying the medial end of the point lay ira lower lateral cartilage, and extended laterally to [...] portions of the surgery. Ellis Montano MD Pastoral Counselor Facial Plastic and Reconstructive Surgery Otolaryngology- Head and Neck Surgery RUNNER documented in this encounter Plan of Treatment Not on file documented as of this encounter Procedures Procedure Name Priority Date/Time Associated Diagnosis Comments GLUCOSE - POINT OF CARE Routine 02/12/2023 11:45 AM LINE RUNNER DE REPAIR NASAL CAVITY STENOSIS 02/12/2023 9:36 AM LINE RUNNER Nasal valve collapse Case Notes Scheduling reviewed 02/10cp Special Needs SUPINE, DS 02/06 HCG URINE QUALITATIVE - POCT (IP) INTERFACED Routine 02/12/2023 7:46 AM LINE RUNNER GLUCOSE - POINT OF CARE Routine 02/12/2023 7:44 AM LINE RUNNER HCG URINE QUAL POCT NOTIFICATION STAT 02/12/2023 7:41 AM LINE RUNNER Pre-op testing documented in this encounter Results * GLUCOSE - POINT OF CARE (02/12/2023 11:45 AM LINE RUNNER) Glucose WB/POC 92 70 - 115 mg/dL 02/12/2023 11:50 AM LINE RUNNER [facility] Specimen Type Venous 02/12/2023 11:50 AM LINE RUNNER [facility] Blood BLOOD SPECIMEN / Unknown 02/12/2023 11:45 AM LINE RUNNER 02/12/2023 11:50 AM LINE RUNNER Ellis Montano MD LAB - POINT OF CARE ORDERABLES [facility] [address] [place] [address], [facility] [phone] * HCG URINE QUALITATIVE - POCT (IP) INTERFACED (02/12/2023 7:46 AM LINE RUNNER) HCG Qual Urine Negative Negative 02/12/2023 7:53 AM LINE RUNNER [facility] Urine URINE / Unknown 02/12/2023 7 :46 AM LINE RUNNER 02/12/2023 7:53 AM LINE RUNNER Ellis Montano MD LAB - POINT OF CARE ORDERABLES Performing Organization Address [facility]/ZIP Co de Phone Number [address] [address], [place] [phone] * GLUCOSE - POINT OF CARE (02/12/2023 7:44 AM LINE RUNNER) Glucose WB/POC 74 70 - 115 mg/dL 02/12/2023 7:47 AM LINE RUNNER [facility] Specimen Type Venous 02/12/2023 7:47 AM LINE RUNNER [facility] Blood BLOOD SPECIMEN / Unknown 02/12/2023 7:44 AM LINE RUNNER 02/12/2023 7:47 AM LINE RUNNER Ellis Montano MD LAB - POINT OF CARE ORDERABLES Performing Organization Address [facility] Co de Phone Number [address] [address], [place] [phone] * HCG URINE QUAL POCT NOTIFICATION (02/12/2023 7:41 AM LINE RUNNER) Comment Notification Label Only - See Separate Report 02/12/2023 9:01 AM LINE RUNNER [facility] Urine URINE / Unknown 02/12/2023 7 :41 AM LINE RUNNER 02/12/2023 7:41 AM LINE RUNNER Ellis Montano MD LAB - URINALYSIS ORD ERABLES Performing Organization Address [facility]/ZIP Co de Phone Number [address] [address], [place] [phone] documented in this encounter Visit Diagnoses Diagnosis [...] MAR., Pre-op $ Given 02/12/2023 7:52 AM LINE RUNNER 650 mg albuterol-ipratropium (Duo-Neb) nebulizer solution 3 [...] Pre-op $ New Bag/Syringe 02/12/2023 7:51 AM LINE RUNNER 20 mL/hr lactated ringers infusion at 75 mL/hr, Intravenous, CONTINUOUS, Starting on Fri02/12/23 at 1045, Until Fri02/12/23 at 1452, PACU *Current Bag - New Order 02/12/2023 10:35 AM LINE RUNNER 75 mL/hr metoclopramide (Reglan) injection 10 mg [...] choice, PACU $ Given 02/12/2023 10:39 AM LINE RUNNER 10 mg documented in this encounter Active and Recently Administered Medications Times are shown in LINE RUNNER. Scheduled Medication Order 02/10/2023 02/11/2023 02/12/2023 acetaminophen [...] RN) documented in this encounter Care Teams Bindery Operator Relationship Specialty Start Date End Date Wilmer Carnes MD [address] [place] [address] PCP - General Family Medicine 01/16/21 documented as of this encounter
--- OUTSIDE RECORDS SUMMARY | 2024-02-12 08:23 | XMS_ITS | Encounter Summary ---
Author Organization [facility] Address [address] [place] [address] Care Team Providers Care Repairer Evaporator Name Role Phone Wilmer Carnes MD Primary [...] on filedocumented in this encounter Care Teams Repairer Evaporator Relationship Specialty Start Date End Date Wilmer Carnes MD [address] [place] [address] PCP - General Family Medicine 01/16/21 documented as of this encounter
--- OUTSIDE RECORDS SUMMARY | 2024-02-12 08:23 | XMS_ITS | Encounter Summary ---
Author Organization [facility] Address [address] [place] [address] Care Team Providers Care Passenger Representative Name Role Phone Wilmer Carnes MD Primary Care Provider Reason for Visit * Auth/Cert (Routine) Specialty Diagnoses / Procedures Referred By Contac t Referred To Contact Diagnoses Nasal valve collapse NASAL VALVE COLLAPSE Procedures [place] REPAIR NASAL CAVITY STENOSIS RECONSTRUCTION/REPAIR NASAL Referral ID Status Reason Start Date Expiration Date Visits Re quested Visits Authorized [id number] 1 1 Encounter Details Date Type Department Care Team (Late st Contact Info) Description 02/12/2023 9:07 [address] MACHINE OPER[address] FORMS Anesthesia Event [facility] [address] [place] [address] Morgan Wesley MD [address] [place] [address] Anesthesia Record Procedure Summary Procedure Name Responsible [...] Care NOTABLE EVENTS: No notable events documented. ING MACHINE OPERATOR ROAD FORMS * Morgan Wesley MD - 02/12/2023 8:58 [...] results for input(s): HGBA1C , A1C , [id number] , EAG in the last 35675 hours. Insulin pump? no if yes then [...] PM and Within 6 months for AICD [place] Information needed (insulation blanket maker, mode, indication for CIED, battery life, magnet [...] being admitted then order: IP Consult to Stemhole Borer (comment regarding consult for undiagnosed DINESH) - [...] OPTIMIZED - PAT EVALUATION COMPLETE Nutressa Lakhani, BOAT LABORER-MEAL GRINDER TENDER 02/06/2023 3:29 PM for this procedure. Final clearance pending Sec Reporting Consultant evaluation DOS in ACU. Preoperative plan was [...] for the 02/06/23 encounter (Hospital Encounter) with [facility] PAT ROOM 1. No current facility-administered medications for this encounter. Allergies: Allergies Allergen Reactions ??? Ranitidine Unknown ??? Risperidone Other Reaction: OTHER REACTION ??? Parada Anaphylaxis ??? Iodine Rash Relevant Problems Other (+) Seronegative rheumatoid arthritis of multiple sites ([facility]) Problem List: Patient Active Problem List Diagnosis Date Noted ??? Seronegative rheumatoid arthritis of multiple sites ([facility]) 01/16/2021 Priority: Not Prioritized ??? Elevated [...] controls ??? COPD (chronic obstructive pulmonary disease) ([facility] ??? Diabetes ([facility]) ??? Lumbar herniated disc ??? PTSD (post-traumatic stress disorder) ??? Sleep apnea in adult Surgical History: Past Surgical History: Procedure Laterality Date ??? ADENOIDECTOMY ??? Back Surgery Frontal fusion ??? Cholecystectomy ??? Septoplasty 11/01/2022 TRANSPORTATION MAINTENANCE SUPERVISOR Status: No LMP recorded. Patient is premenopausal. [...] 6 (02/06/2023) eGFR by CKD-EPI >90 (02/06/2023) ING MACHINE OPERATOR ROAD FORMS documented in this encounter Procedure Notes * Sampson Urrutia DO - 02/12/2023 9:35 AM CSTAssociated Order(s): ETT Placement Endotracheal Tube Placement: Patient Location: OR. Intubation Event Date/Time: 02/12/2023 9:19 AM Procedure: intubation (71329). Procedure Section: Sedation: under general anesthesia. Indications [...] the procedure Provider #1: Morgan Wesley MD. ING MACHINE OPERATOR ROAD FORMS documented in this encounter Miscellaneous Notes * Anesthesia Transfer of Care - Kelsie Magana DO - 02/12/2023 10:40 AM T[address] MACHINE OPERATOR [address]AD FORMS ANESTHESIA TRANSFER OF CARE NOTE Today's Date: [...] the receiving PACU team. Kelsie Magana DO ING MACHINE OPERATOR ROAD FORMS documented in this encounter Plan of Treatment Not on file documented as of this encounter Procedures Procedure Name Priority Date/Time Associated Diagnosis Comments ENDOTRACHEAL TUBE NOTE Routine 02/12/2023 9:35 AM TAMPING MACHINE OPERATOR [address] FORMS documented in this encounter Results * ETT LINE PERFORMABLE (02/12/2023 9:35 AM TAMPING MACHINE OPERATOR ROAD FORMS) Narrative Sampson Urrutia DO - 02/12/2023 9:35 AM TAMPING MACHINE OPERATOR [address] FORMS Sampson Urrutia DO ? 02/12/2023 ??9:36 AM Endotracheal Tube Placement: ? Patient Location: OR. Intubation Event Date/Time: ??02/12/2023 9:19 AM Procedure: intubation (12711). Procedure Section: ?? Sedation: under general anesthesia. [...] Anesthesia Intra-op $ Given 02/12/2023 9:31 AM [address] MACHINE OPER[address] FORMS 2 g dexAMETHasone Sod Phosphate PF injection Intravenous, PRN, Starting on Fri02/12/23 at 0938, Until Fri02/12/23 at 1040, Anesthesia Intra-op $ Given 02/12/2023 9:38 AM [address] MACHINE OPER[address] FORMS 10 mg fentaNYL (PF) (Sublimaze) injection Intravenous, PRN, Starting on Fri02/12/23 at 0913, Until Fri02/12/23 at 1040, Anesthesia Intra-op $ Given 02/12/2023 10:38 AM T[address] MACHINE OPERATOR [address] FORMS 50 mcg $ Given 02/12/2023 9:13 AM TAMPING MACHINE OPERATOR [address] FORMS 50 mcg lidocaine (Xylocaine) 4 % solution Topical, PRN, Starting on Fri02/12/23 at 0915, Until Fri02/12/23 at 1040, Anesthesia Intra-op $ Given 02/12/2023 9:15 AM T[address] MACHINE OPERATOR [address] FORMS 4 mg lidocaine HCl (PF) (Xylocaine MPF) 2 % injection Intravenous, PRN, Starting on Fri02/12/23 at 0913, Until Fri02/12/23 at 1040, Anesthesia Intra-op $ Given 02/12/2023 9:13 AM [address] MACHINE OPER[address] FORMS 100 mg midazolam (Versed) injection Intravenous, PRN, Starting on Fri02/12/23 at 0905, Until Fri02/12/23 at 1040, Anesthesia Intra-op $ Given 02/12/2023 9:05 AM T[address] MACHINE OPERATOR [address] FORMS 2 mg neostigmine (Prostigmin/Bloxiverz) injection Intravenous, PRN, Starting on Fri02/12/23 at 1022, Until Fri02/12/23 at 1049, Anesthesia Intra-op $ Given 02/12/2023 10:22 AM [address] MACHINE OPER[address] FORMS 4 mg propofol (Diprivan) injection Intravenous, PRN, Starting on Fri02/12/23 at 0913, Until Fri02/12/23 at 1040, Anesthesia Intra-op $ Given 02/12/2023 9:13 AM T[address] MACHINE OPER[address] FORMS 160 mg rocuronium (Zemuron) injection Intravenous, PRN, Starting on Fri02/12/23 at 0914, Until Fri02/12/23 at 1040, Anesthesia Intra-op $ Given 02/12/2023 9:14 AM TAMPING MACHINE OPERATOR [address] FORMS 70 mg documented in this encounter Care Teams Passenger Representative Relationship Specialty Start Date End Date Wilmer Carnes MD [address] [place] [address] PCP - General Family Medicine 01/16/21 documented as of this encounter
--- OUTSIDE RECORDS SUMMARY | 2024-02-12 08:23 | XMS_ITS | Referral Summary ---
Author Organization [facility] [employer] Address [address] [place] [address] Care Team Providers Care Multi Operation Machine Operator Name Role Phone Wilmer Carnes MD Primary Care Provider [phone] Source Comments [facility] [employer],non-owned Affiliates and Associated Physician Practices is amultiple site organization consisting of ambulatory clinics and hospital sitesin [place] and [place]. This disclosure is being madepursuant to the Care Everywhere program and may not contain all information available regarding this patient. Last updated 17.[facility] [employer] Allergies Active Allergy Reactions Criticality Noted Date [...] (Bactroban) 2 % ointment 10/31/2022 Active Lancets (ZenDealsTOUCH DELICA PLUS 33G EXTRA FINE LANCET) TEST [...] 01/16/2021 Assessment & Plan (01/16/2021 3:20 PM LENGTH CONTROL TESTER): Describes onset of features 4 months ago initially involving fingers with water main pipe layer stiffness lasting at least 3-4 hours, painful [...] undesirable weight gain side effects. Will discontinue gihl-ohw-spzxbxu ibuprofen in place her on prescription straight [...] 01/16/2021 Assessment & Plan (01/16/2021 3:18 PM LENGTH CONTROL TESTER): Lab significant for serum AST elevated at [...] disease. Assessment & Plan (01/16/2021 3:17 PM LENGTH CONTROL TESTER): Previous history suggesting non alcoholic fatty liver [...] Comments Blood Pressure 143/83 03/04/2023 2:33 PM LENGTH CONTROL TESTER Pulse 92 03/04/2023 2:33 PM LENGTH CONTROL TESTER Temperature 36.6 ??C (97.8 ??F) 02/12/2023 11:[address] Respiratory Rate 16 02/12/2023 11:39 AM LENGTH CONTROL TESTER Oxygen Saturation 95% 02/12/2023 12:45 PM LENGTH CONTROL TESTER Inhaled Oxygen Concentration - - Weight 86.6 kg (191 lb) 03/04/2023 2:33 PM LENGTH CONTROL TESTER Height 160 cm (5' 3 ) 03/04/2023 2:33 PM LENGTH CONTROL TESTER Body Mass Index 33.83 03/04/2023 2:33 PM LENGTH CONTROL TESTER Functional Status Functional Status Response Date of [...] POINT OF CARE Routine 02/12/2023 7:44 AM LENGTH CONTROL TESTER from Last 3 Months or Most Recently Relevant to Health Maintenance Results * GLUCOSE - POINT OF CARE (02/12/2023 7:44 AM LENGTH CONTROL TESTER) Pathologist [facility] Glucose WB/POC 74 70 - 115 mg/dL 02/12/2023 7:47 AM LENGTH CONTROL TESTER [facility] Specimen Type Venous 02/12/2023 7:47 AM LENGTH CONTROL TESTER [facility] Blood BLOOD SPECIMEN / Unknown 02/12/2023 7:44 AM LENGTH CONTROL TESTER 02/12/2023 7:47 AM LENGTH CONTROL TESTER Ellis Montano MD LAB - POINT OF CARE ORDERABLES Performing Organization Address [facility]/State/ZIP Co de Phone Number [facility] [address] [place] [address], [facility] [phone] from Last 3 Months or Most Recently Relevant to Health Maintenance Care Teams Multi Operation Machine Operator Relationship Specialty Start Date End Date Wilmer Carnes MD [address] [place] [address] PCP - General Family Medicine 01/16/21
--- OUTSIDE RECORDS SUMMARY | 2024-02-12 08:23 | XMS_ITS | Encounter Summary ---
Author Organization [facility] Address [address] [place] [address] Care Team Providers Care Tire Mold Engraver Name Role Phone Wilmer Carnes MD Primary Care Provider [phone] Reason for Visit * Auth/Cert (Routine) Specialty Diagnoses / Procedures Referred By Contac t Referred To Contact Diagnoses Nasal valve collapse NASAL VALVE COLLAPSE Procedures TX REPAIR NASAL CAVITY STENOSIS RECONSTRUCTION/REPAIR NASAL Referral ID Status Reason Start Date Expiration Date Visits Re quested Visits Authorized [id number] 1 1 Encounter Details Date Type Department Care Team (Late st Contact Info) Description 02/12/2023 9:15 AM EVP OPERATIONS - 02/12/2023 11:20 AM EVP OPERATIONS Surgery [facility] [address] [place] [address] Ellis Montano MD [address] [place] [address] NASAL VALVE REPAIR, LEFT AURICULAR CARTILAGE GRAFT Surgery Details Date/Time Status Location OR Service Patient Class Case Class Case Type Trauma Case? 02/12/2023 9:15 AM Posted [facility] OR OR 04 ENT Surgery Day Care [...] Comments Blood Pressure 112/63 02/12/2023 11:15 AM EVP OPERATIONS Pulse 73 02/12/2023 11:15 AM EVP OPERATIONS Temperature 36.7 ??C (98.1 ??F) 02/12/2023 10:[address] Respiratory Rate 12 02/12/2023 11:15 AM EVP OPERATIONS Oxygen Saturation 93% 02/12/2023 11:15 AM EVP OPERATIONS Inhaled Oxygen Concentration - - Weight 85.4 kg (188 lb 4.8 oz) 02/12/2023 7:32 A M EVP OPERATIONS Height 160 cm (5' 3 ) 02/12/2023 7:32 AM EVP OPERATIONS Body Mass Index 33.36 02/12/2023 7:32 AM EVP OPERATIONS documented in this encounter Functional Status Functional [...] needed for Pain 30 tablet 02/12/2023 Lancets (TradersHighwayTOUCH DELICA PLUS 33G EXTRA FINE LANCET) TEST 3 TO 4 TIMES DAILY 08/05/2022 mupirocin (Bactroban) 2 % ointment 10/31/2022 norethindrone (Aygestin) 5 MG tablet Take 1 (one) tablet by mouth once daily 02/08/2023 JumpPost Ultra test strip USE WITH METER FOUR [...] 0-6 Units Intravenous Once Lakhani, Nutressa A, ETL ARCHITECT-DRUPAL PHP DEVELOPER ??? lactated ringers infusion Intravenous pre-OP continuous Lakhani, Nutressa A, ETL ARCHITECT-DRUPAL PHP DEVELOPER 20 mL/hr at 02/12/23 0751 New Bag at 02/12/23 0751 REVIEW OF SYSTEMS 11 point review of systems was obtained and is negative except for as noted in the HPI and per medical services assistant notes PHYSICAL EXAM BP 130/78 Pulse [...] Otolaryngology Head & Neck Surgery PGY-5 02/12/2023 OPERATIONS Associated attestation - Ellis Montano MD - 02/12/2023 8:57 AM EVP OPERATIONS Also consented for possible bilateral inferior turbinate reduction documented in this encounter Nursing Notes * Hortencia Thomas RN - 02/12/2023 1:15 PM CST Patient cam back from PACU at 11:35am and had intranasal sutures and left ear bolster. All intact. OPERATIONS documented in this encounter OR Notes * Operative - Ellis Montano MD - 02/12/2023 9:36 AM CST OPERATIVE REPORT NAME: Oumou Middleton : 1975 CSN: [id number] DATE OF OPERATION: 02/12/2023 ATTENDING SURGEON: Ellis Montano MD Pre-Op Diagnosis: -Nasal obstruction -Nasal valve collapse Post-Op Diagnosis: Same Procedure: -Nasal valve repair (CPT 72484) -Auricular cartilage graft (CPT 81552) Operative findings: -Bilateral alar pham grafts placed through marginal incisions, cartilage harvested from left auricular hoda Boarding Room Fixer Daren Frausto MD Indications for procedure: Oumou [...] was overlying the medial end of the [place] lower lateral cartilage, and extended laterally to [...] portions of the surgery. Ellis Montano MD Precision Aircraft Structure Assembler Facial Plastic and Reconstructive Surgery Otolaryngology- Head and Neck Surgery OPERATIONS documented in this encounter Plan of Treatment Not on file documented as of this encounter Procedures Procedure Name Priority Date/Time Associated Diagnosis Comments GLUCOSE - POINT OF CARE Routine 02/12/2023 11:45 AM EVP OPERATIONS TX REPAIR NASAL CAVITY STENOSIS 02/12/2023 9:36 AM EVP OPERATIONS Nasal valve collapse Case Notes Scheduling reviewed 02/10cp Special Needs SUPINE, DS 02/06 HCG URINE QUALITATIVE - POCT (IP) INTERFACED Routine 02/12/2023 7:46 AM EVP OPERATIONS GLUCOSE - POINT OF CARE Routine 02/12/2023 7:44 AM EVP OPERATIONS HCG URINE QUAL POCT NOTIFICATION STAT 02/12/2023 7:41 AM EVP OPERATIONS Pre-op testing documented in this encounter Results * GLUCOSE - POINT OF CARE (02/12/2023 11:45 AM EVP OPERATIONS) Glucose WB/POC 92 70 - 115 mg/dL 02/12/2023 11:50 AM EVP OPERATIONS [facility] Specimen Type Venous 02/12/2023 11:50 AM EVP OPERATIONS [facility] Blood BLOOD SPECIMEN / Unknown 02/12/2023 11:45 AM EVP OPERATIONS 02/12/2023 11:50 AM EVP OPERATIONS Ellis Montano MD LAB - POINT OF CARE ORDERABLES [address] [address], [place] [phone] * HCG URINE QUALITATIVE - POCT (IP) INTERFACED (02/12/2023 7:46 AM EVP OPERATIONS) HCG Qual Urine Negative Negative 02/12/2023 7:53 AM EVP OPERATIONS [facility] Urine URINE / Unknown 02/12/2023 7 :46 AM EVP OPERATIONS 02/12/2023 7:53 AM EVP OPERATIONS Ellis Montano MD LAB - POINT OF CARE ORDERABLES Performing Organization Address City/[facility]/ZIP Co de Phone Number [address] [address], [place] [phone] * GLUCOSE - POINT OF CARE (02/12/2023 7:44 AM EVP OPERATIONS) Glucose WB/POC 74 70 - 115 mg/dL 02/12/2023 7:47 AM EVP OPERATIONS [facility] Specimen Type Venous 02/12/2023 7:47 AM EVP OPERATIONS [facility] Blood BLOOD SPECIMEN / Unknown 02/12/2023 7:44 AM EVP OPERATIONS 02/12/2023 7:47 AM EVP OPERATIONS Ellis Montano MD LAB - POINT OF CARE ORDERABLES Performing Organization Address City/[facility]/ZIP Co de Phone Number [address] [address], [place] [phone] * HCG URINE QUAL POCT NOTIFICATION (02/12/2023 7:41 AM EVP OPERATIONS) Comment Notification Label Only - See Separate Report 02/12/2023 9:01 AM [facility] Urine URINE / Unknown 02/12/2023 7 :41 AM EVP OPERATIONS 02/12/2023 7:41 AM EVP OPERATIONS Ellis Montano MD LAB - URINALYSIS ORD ERABLES [address] [address], [facility] [phone] documented in this encounter Visit Diagnoses Diagnosis [...] MAR., Pre-op $ Given 02/12/2023 7:52 AM EVP OPERATIONS 650 mg albuterol-ipratropium (Duo-Neb) nebulizer solution 3 [...] Pre-op $ New Bag/Syringe 02/12/2023 7:51 AM EVP OPERATIONS 20 mL/hr lactated ringers infusion at 75 mL/hr, Intravenous, CONTINUOUS, Starting on Fri02/12/23 at 1045, Until Fri02/12/23 at 1452, PACU *Current Bag - New Order 02/12/2023 10:35 AM EVP OPERATIONS 75 mL/hr lidocaine 1% (Xylocaine) - EPINEPHrine 1:100,000 injection PRN, Starting on Fri02/12/23 at 0949, Until Fri02/12/23 at 1036, Intra-op $ Given 02/12/2023 9:49 AM EVP OPERATIONS 7 mL Operative Site metoclopramide (Reglan) injection [...] choice, PACU $ Given 02/12/2023 10:39 AM EVP OPERATIONS 10 mg documented in this encounter Active and Recently Administered Medications Times are shown in EVP OPERATIONS. Scheduled Medication Order 02/10/2023 02/11/2023 02/12/2023 acetaminophen [...] RN) documented in this encounter Care Teams Tire Mold Engraver Relationship Specialty Start Date End Date Wilmer Carnes MD [address] [place] [address] PCP - General Family Medicine 01/16/21 documented as of this encounter
--- OUTSIDE RECORDS SUMMARY | 2024-02-12 08:24 | XMS_ITS | Encounter Summary ---
Author Organization [facility] Address [address] [place] [address] Care Team Providers Care Installer Molding And Trim Name Role Phone Wilmer Carnes MD Primary Care Provider Reason for Visit * Reason Comments Establish Care +ART, joint pain Encounter Details Date Type Department Care Team (Late st Contact Info) Description 01/16/2021 2:40 PM RANGER AIDE Office Visit [facility] Medical [facility] - Rheumatology [address], [address] [place] [address] Walter Schaefer DO [address] [place] [address] Seronegative rheumatoid arthritis of multiple [...] Comments Blood Pressure 110/60 01/16/2021 2:48 PM RANGER AIDE Pulse 90 01/16/2021 2:48 PM RANGER AIDE Temperature 36.1 ??C (97 ??F) 01/16/2021 2:48 PM RANGER AIDE Respiratory Rate 16 01/16/2021 2:48 PM RANGER AIDE Oxygen Saturation 94% 01/16/2021 2:48 PM RANGER AIDE Inhaled Oxygen Concentration - - Weight 93.4 kg (206 lb) 01/16/2021 2:48 PM RANGER AIDE Height 157.5 cm (5' 2 ) 01/16/2021 2:48 PM RANGER AIDE Body Mass Index 37.68 01/16/2021 2:48 PM RANGER AIDE documented in this encounter Patient Instructions * Patient Instructions* Silvano DO Walter - 01/16/2021 3:23 PM RANGER AIDE Images from the original note were not included. Patient Education Rheumatoid Arthritis TESTER SOUND: Rheumatoid arthritis is a long-term autoimmune disease [...] or weight loss Call your doctor or anodize machine operator if: ?? You have a fever. ?? [...] of motion. You may also be shown cwh-wiyhpl-sxfxgua exercises that are safe for your joints, [...] discussing . ?? Women: Talk to your gas scrubber operator about contraceptives. Tell him or her about [...] ask them during your visits. ?? Copyright [employer] 2020 Information is for End User's use only and may not be sold, redistributed or otherwise used for commercial purposes. All illustrations and images included in CareNotes?? are the copyrighted property of [employer] or [employer] The above information is an educational psychology professor only. It is not intended as medical advice for individual conditions or treatments. Talk to your doctor, nurse or pharmacist before following any medical regimen to see if it is safe and effective for you. Patient Education Hydroxychloroquine (By mouth) Hydroxychloroquine (vrb-ggxr-ox-DBNV-tq-ctnk) Prevents and treats malaria. Also treats lupus [...] pharmacist before using any other medicine, including obuh-ade-yywrrzi medicines, vitamins, and herbal products. ?? Some [...] may report side effects to FDA at 5-017-WAO-9749 ?? Copyright [employer] 2020 Information is for End User's use only and may not be sold, redistributed or otherwise used for commercial purposes. The above information is an educational psychology professor only. It is not intended as medical [...] pharmacist before using any other medicine, including dhln-shv-oxibxox medicines, vitamins, and herbal products. ?? Do [...] may report side effects to FDA at 9-219-AKJ-2451 ?? Copyright [employer] 2020 Information is for End User's use only and may not be sold, redistributed or otherwise used for commercial purposes. The above information is an educational psychology professor only. It is not intended as medical advice for individual conditions or treatments. Talk to your doctor, nurse or pharmacist before following any medical regimen to see if it is safe and effective for you. ER AIDE documented in this encounter Progress Notes * Walter Schaefer DO - 01/17/2021 4:04 PM CST Negative antibody testing results for antibodies that can be associated with chronic autoimmune hepatitis or primary biliary cirrhosis. ER AIDE * Walter Schaefer DO - 01/16/2021 2:40 PM CST Images from the original note were not included. RHEUMATOLOGY INITIAL OFFICE VISIT NOTE 01/16/2021 REFERRING PHYSICIAN/PROVIDER: Wilmer Carnes [address] [place] [address] REASON FOR CONSULT: Chief Complaint Patient presents [...] in the morning and she does characterized medical transcription editor stiffness lasting at least 3 to3-1/2 hours [...] detected (see below). She has been utilizing iqwa-jxc-hisxchh ibuprofen 400 mg taken every 4-6 hours with some modest relief. She has previously been told that she has evidence of ???fatty liver disease?? and has done quite well with weight loss measures decreasing down from the 400 lb range to her current weight but still is having trouble with controlling her blood sugars. She has an upcoming follow-up appointment scheduled with her bolt sorter. We also reviewed the results of her elevated serum liver transaminase enzyme results which would certainly raise consideration of possible fatty liver disease however cannot exclude the possibility of autoimmune liver disease especially given her strongly positive ART with the dot pattern. Outside records reviewed: Records received from [facility] I included single a chart note [...] hemoglobin 14.5 g, hematocrit 43.4% platelet count 020281. REVIEW OF SYSTEMS: ROS See pertinent positive [...] MONOCYTABS, EOSINABS, BASOABS, IMMGRANSABS in the last 74234 hours. No results for input(s): SODIUM, POTASSIUM, CHLORIDE, CO2, BUN, CREATININE, GLUCOSE, CALCIUM, ALBUMIN, ALKPHOS, ALT, AST, TBIL, TPROT, EGFR in the last 65703 hours. No results for input(s): CRP in the last 10420 hours. No results for input(s): SEDRATE in the last 50739 hours. No results for input(s): RAQNT in the last 84388 hours. No results for input(s): CCPIGG in the last 63539 hours. No results for input(s): ART, ANATITER in the last 73598 hours. No results for input(s): DNAABDS in the last 01163 hours. No results for input(s): C3 in the last 38404 hours., No results for input(s): C4 in the last 89653citwk. No results for input(s): SMAB, SMRNPAB, SSAAB, SSBAB, TYV74IL in the last 43700 hours. No results for input(s): CK in the last 51605 hours., No results for input(s): COLORUA, CLARITYUA, SPECGRAVUA, PHUA, PROTEINUA, BLOODUA, LEUKOCYTEUA, NITRITEUA, GLUCOSEUA, KETONEUA, BILIRUBINUA, UROBILINUA, REDSUBUA, WBCUAAUTO, RBCUAAUTO, EPITHUAAUTO, BACTUAAUTO, YEASTUAAUTO, SPERMUAAUTO, CASTUAAUTO, CRYSUAAUTO, MUCUSUAAUTO in the last 46173 hours. No results for input(s): AFEDGWOBS4QR in the last 18172 hours. IMAGING: XR RIBS UNILATERAL RIGHT W [...] lips appear thickened. I consulted with our nuclear medicine chief technologist who indicated the patient did not appear to have bruising or thickening of the lips therefore this could be an artifact secondary to the cervical collar. This report was transcribed with a computerized speech recognition system. In an effort to expedite patient care, it has not been adjusted for typographical, grammatical or syntax problems by a trained medical transcription editor. For questions about the report, please contact [...] be identified. The no pleural effusions. No ddtgxbi-lrd-omwziqr rib fracture identified. The heart size appears normal. This report was transcribed with a computerized speech recognition system. In an effort to expedite patient care, it has not been adjusted for typographical, grammatical or syntax problems by a trained medical transcription editor. For questions about the report, please contact [...] or syntax problems by a trained medical transcription editor. For questions about the report, please contact [...] or syntax problems by a trained medical transcription editor. Findings: There is no intracranial mass-effect or [...] 4 months ago initially involving fingers with medical transcription editor stiffness lasting at least 3-4 hours, painful [...] undesirable weight gain side effects. Will discontinue ypcn-ufi-ocrzosj ibuprofen in place her on prescription straight [...] that you may require. Walter Schaefer D.O., [facility] Medical group Division of Rheumatology at [facility] The total time spent today in the visit with the patient for this initial encounter, including performing chart preparation, review of available data, and documentation, patient education, not related to any procedure or preventative visit services was 60 minutes. Portions of the record was created with voice recognition software.Variances in senior test engineer may occur Walter Schaefer DO 01/16/2021 3:22 PM ER AIDE documented in this encounter Plan of Treatment Not on file documented as of this encounter Procedures Procedure Name Priority Date/Time Associated Diagnosis Comments MITOCHONDRIAL ANTIBODY SCREEN Routine 01/16/2021 3:53 PM RANGER AIDE Elevated liver enzymes CYCLIC CITRUL PEPTIDE ANTIBODY IGG/IGA (CCP) Routine 01/16/2021 3:53 PM RANGER AIDE 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) RHEUMATOID FACTOR BLOOD QUANTITATIVE Routine 01/16/2021 3:53 PM RANGER AIDE 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) C-REACTIVE PROTEIN Routine 01/16/2021 3: 53 PM RANGER AIDE 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) SMOOTH MUSCLE ANTIBODY Routine 3:53 PM RANGER AIDE Elevated liver enzymes ERYTHROCYTE SEDIMENTATION RATE Routine 01/16/2021 3:53 PM RANGER AIDE 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) documented in this encounter Results * XR HAND BILAT 3VW OR MORE (01/16/2021 4:28 PM RANGER AIDE) Anatomical Region Laterality Modality Upper Extremity, Wrist / Hand Ra diographic Imaging 01/16/2021 4:33 PM RANGER AIDE Narrative 01/16/2021 4:43 PM RANGER AIDE BILATERAL HANDS, THREE VIEW HISTORY: Pain. There [...] BILAT 3VW OR MORE (01/16/2021 4:28 PM RANGER AIDE) Anatomical Region Laterality Modality Ankle / Foot, Lower Extremity Ra diographic Imaging 01/16/2021 4:41 PM RANGER AIDE Narrative 01/16/2021 5:06 PM RANGER AIDE BILATERAL FEET, SIX VIEW HISTORY: Seronegative arthropathy. [...] RHEUMATOID FACTOR BLOOD QUANTITATIVE (01/16/2021 3:53 PM RANGER AIDE) Rheumatoid Factor <15 <30 IU/mL [facility] INSURANCE BILL Blood BLOOD SPECIMEN / Unknown 01/16/2021 3:53 PM RANGER AIDE 01/16/2021 Narrative Resulting Agency Comment Lab Testing performed at: [address] ??[facility] [id number] Walter Schaefer DO LAB - CHEMISTRY JASMIN BARBOUR [facility] INSURANCE BILL [address] [place] [address] * CYCLIC CITRUL PEPTIDE ANTIBODY IGG/IGA (CCP) (01/16/2021 3:53 PM RANGER AIDE) CCP Antibodies IgG/IgA 7 0 - 19 units [facility] INSURANCE BILL Comment: ? Negative ? <20 ? Weak positive ?20 - 39 ? Moderate positive ??40 - 59 ? Strong positive ?>59 Blood BLOOD SPECIMEN / Unknown 01/16/2021 3:53 PM RANGER AIDE 01/16/2021 Narrative Resulting Agency Comment Lab Testing performed at: [address] ??[facility] [id number] Walter Schaefer DO LAB - SEROLOGY ORDER DORIS [facility] INSURANCE BILL [address] [place] [address] * ERYTHROCYTE SEDIMENTATION RATE (01/16/2021 3:53 PM RANGER AIDE) Erythrocyte Sedimentation Rate Westergren 12 0 - 20 MM/HR [facility] INSURANCE BILL Blood BLOOD SPECIMEN / Unknown 01/16/2021 3:53 PM RANGER AIDE 01/16/2021 Narrative Resulting Agency Comment Lab Testing performed at: [address] ??[facility] [id number] Walter Schaefer DO LAB - HEMATOLOGY ORD HERMELINDA Performing Organization Address [facility] de Phone Number [facility] INSURANCE BILL [address] [place] [address] * (ABNORMAL) C-REACTIVE PROTEIN (01/16/2021 3:53 PM RANGER AIDE) Pathologist [facility] C-Reactive Protein 0.74(H) <=0.50 mg/dL [facility] INSURANCE BILL Blood BLOOD SPECIMEN / Unknown 01/16/2021 3:53 PM RANGER AIDE 01/16/2021 Narrative Resulting Agency Comment Lab Testing performed at: [address] ??[facility] [id number] Walter Schaefer DO LAB - CHEMISTRY JASMIN BARBOUR Performing Organization Address [facility] de Phone Number [facility] INSURANCE BILL [address] [place] [address] * MITOCHONDRIAL ANTIBODY SCREEN (01/16/2021 3:53 PM RANGER AIDE) Pathologist [facility] Mitochondrial M2 Antibody <20.0 0.0 - 20.0 Units [facility] INSURANCE BILL Comment: ? Negative ?0.0 - 20.0 ? Equivocal ??20.1 - 24.9 ? Positive ? >24.9 ? . ? Mitochondrial (M2) Antibodies are found in 90-96% of ? patients with primary biliary cirrhosis. FASTING Blood BLOOD SPECIMEN / Unknown 01/16/2021 3:53 PM RANGER AIDE 01/16/2021 Narrative Resulting Agency Comment Lab Testing performed at: [facility] [address] ??[facility] [id number] Walter Schaefer DO LAB - CHEMISTRY JASMIN BARBOUR [facility] INSURANCE BILL [address] [place] [address] * SMOOTH MUSCLE ANTIBODY (01/16/2021 3:53 PM RANGER AIDE) Actin (Smooth Muscle) Antibody 13 0 - 19 [facility] Comment: ?Negative ? 0 - 19 ?Weak positive ? 20 - 30 ?Moderate to strong positive ? >30 ?. ?Actin Antibodies are found in 52-85% of patients with ?autoimmune hepatitis or chronic active hepatitis and ?in 22% of patients with primary biliary cirrhosis. FASTING Blood BLOOD SPECIMEN / Unknown 01/16/2021 3:53 PM RANGER AIDE 01/16/2021 Narrative Resulting Agency Comment Lab Testing performed at: [employer] [facility] [address] ??[facility] [id number] Walter Schaefer DO LAB - SEROLOGY ORDER DORIS [facility] [employer] INSURANCE BILL [address] [place] [address] documented in this encounter Visit Diagnoses Diagnosis [...] 4 months ago initially involving fingers with medical transcription editor stiffness lasting at least 3-4 hours, painful [...] undesirable weight gain side effects. Will discontinue cxmu-uac-kfcmukq ibuprofen in place her on prescription straight [...] have suggested clinical reassessment in 1 month. ER AIDE * Assessment & Plan Note - Walter [...] biliary cirrhosis (PBC) and anti-mitochondrial antibody (AMA). ER AIDE * Assessment & Plan Note - Walter [...] with consideration for possible autoimmune liver disease. ER AIDE documented in this encounter Care Teams Installer Molding And Trim Relationship Specialty Start Date End Date Wilmer Carnes MD [address] [place] [address] PCP - General Family Medicine 01/16/21 documented as of this encounter
--- OUTSIDE RECORDS SUMMARY | 2024-02-12 08:24 | XMS_ITS | Encounter Summary ---
Author Organization [facility] Address [address] [place] [address] Care Team Providers Care Garment Form Assembler Name Role Phone Wilmer Carnes MD Primary [...] on filedocumented in this encounter Care Teams Garment Form Assembler Relationship Specialty Start Date End Date Wilmer Carnes MD [address] [place] [address] PCP - General Family Medicine 01/16/21 documented as of this encounter
--- OUTSIDE RECORDS SUMMARY | 2024-02-12 08:24 | XMS_ITS | Encounter Summary ---
Author Organization [facility] Address [address] [facility] [place] [address] Care Team Providers Care Material Yard Clerk Name Role Phone Wilmer Carnes MD Primary Care Provider Reason for Visit * Reason Onset Date Comments Med Question 03/08/2021 Encounter Details Date Type Department Care Team (Late st Contact Info) Description 03/08/2021 Telephone [facility] - Rheumatology [address], [address] [place] [address] Walter Schaefer DO [address] [place] [address] Med Question Social History Tobacco [...] Encounter - Yaneth Gaytan LPN - 03/08/2021 2:09 PM CNC MACHINIST Called and spoke to patient re Dr Schaefer's instructions, continue with hydroxychlorquine medication but hold naprosyn until well from Covid infection due to possibility of being dehydrated. Patient states she understands and no further questions. MACHINIST * Telephone Encounter - Walter Schaefer DO [...] increase the risk for developing kidney insufficiency. MACHINIST * Telephone Encounter - Yaneth Gaytan LPN - 03/08/2021 1:18 PM CNC MACHINIST Has covid, ill since Friday, any advice of medication taking/holding? She is under the care of her PCP. She takes naprosyn and hydroxychloroquine. Please advise MACHINIST documented in this encounter Plan of Treatment Not on file documented as of this encounter Visit Diagnoses Not on filedocumented in this encounter Care Teams Material Yard Clerk Relationship Specialty Start Date End Date Wilmer Carnes MD [address] [place], [place] [id number] PCP - General Family Medicine 01/16/21 documented as of this encounter
--- OUTSIDE RECORDS SUMMARY | 2024-02-12 08:24 | XMS_ITS | Encounter Summary ---
Author Organization [facility] Address [address] [facility] [place] [address] Care Team Providers Care Straight Cutter Machine Name Role Phone Wilmer Carnes MD Primary Care Provider Encounter Details Date Type Department Care Team (Latest Contact Info) Description 01/16/2021 4:04 PM HULL SORTER - 01/16/2021 11:59 PM [facility] Hospital Encounter [facility] Health Imaging Services [address] [place] [address] Walter Schaefer DO [address] [place] [phone] Discharge Disposition: Home or Self Care Social [...] and naproxen and recheck in 1 month. 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 No change in initial treatment recommendations including the start of hydroxychloroquine and naproxen and recheck in 1 month. SORTER documented in this encounter Plan of Treatment Not on file documented as of this encounter Procedures Procedure Name Priority Date/Time Associated Diagnosis Comments XR FOOT BILAT 3VW OR MORE Routine 01/16/2021 4:28 PM HULL SORTER 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) XR HAND BILAT 3VW OR MORE Routine 01/16/2021 4:28 PM HULL SORTER 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) documented in this encounter Results * XR HAND BILAT 3VW OR MORE (01/16/2021 4:28 PM HULL SORTER) Anatomical Region Laterality Modality Upper Extremity, Wrist / Hand Ra diographic Imaging 01/16/2021 4:33 PM HULL SORTER Narrative 01/16/2021 4:43 PM HULL SORTER BILATERAL HANDS, THREE VIEW HISTORY: Pain. There [...] BILAT 3VW OR MORE (01/16/2021 4:28 PM HULL SORTER) Anatomical Region Laterality Modality Ankle / Foot, Lower Extremity Ra diographic Imaging 01/16/2021 4:41 PM HULL SORTER Narrative 01/16/2021 5:06 PM HULL SORTER BILATERAL FEET, SIX VIEW HISTORY: Seronegative arthropathy. [...] (HCC) documented in this encounter Care Teams Straight Cutter Machine Relationship Specialty Start Date End Date Wilmer Carnes MD [address] [place] [address] PCP - General Family Medicine 01/16/21 documented as of this encounter
--- OUTSIDE RECORDS SUMMARY | 2024-02-12 08:24 | XMS_ITS | Encounter Summary ---
Author Organization [facility] Address [address] [facility] [place] [address] Care Team Providers Care Skip Locator Name Role Phone Unavailable Primary Care Provider Unavailabl e Reason for Visit * Reason Onset Date Comments Referral 12/08/2020 to [facility] Rheumatol vidal Encounter Details Date Type Department Care Team (Late st Contact Info) Description 12/08/2020 Telephone [facility] Group - Rheumatology [address], [address] [place] [address] Walter Schaefer DO [address] [place] [address] Referral (to [facility] Rheumatology) Social History Tobacco Use Types Packs/Day [...] CDT Called patient as a referral to [facility] Rheumatology by Dr Wilmer Carnes for +ART, ongoing joint pain in hands and feet. Scheduled CLINICAL SALES CONSULTANT appt with Dr Schaefer. documented in this encounter Plan of Treatment Not on file documented as of this encounter Visit Diagnoses Not on filedocumented in this encounter
--- OUTSIDE RECORDS SUMMARY | 2024-02-12 08:24 | XMS_ITS | Encounter Summary ---
Author Organization [facility] Address [address] [facility] [place] [address] Care Team Providers Care Developmental Services Worker Name Role Phone Wilmer Carnes MD Primary Care Provider [phone] Reason for Visit * Reason Onset Date Comments Question 02/15/2021 Encounter Details Date Type Department Care Team (Late st Contact Info) Description 02/15/2021 Telephone [facility] Medical Group - Rheumatology [address], [address] [place] [address] Walter Schaefer DO [address] [place] [address] Question Social History Tobacco Use [...] Yaneth Gaytan LPN - 02/15/2021 2:51 PM UNIT COORDINATOR Called patient back with Dr Schaefer's directions : continue taking her hydroxychloriqiune as ordered,it not not contraindicated with antibiotc therapy. No answer so LVM. Also sent her a [employer] message. COORDINATOR * Telephone Encounter - Walter Schaefer DO - 02/15/2021 2:46 PM CST There really is no indication to hold hydroxychloroquine while receiving treatment for an infectionsince it has no significant immune suppressive affects however missing a few days of this medication probably will not cause any significant problem with her underlying rheumatoid arthritis condition. COORDINATOR * Telephone Encounter - Yaneth Gaytan LPN - 02/15/2021 11:31 AM UNIT COORDINATOR Has sinus infection, just started antibiotics last dorothy, amoxicillin 875 mg BID , does she need to hold her hydroxycholiquine ? Please advise COORDINATOR documented in this encounter Plan of Treatment Not on file documented as of this encounter Visit Diagnoses Not on filedocumented in this encounter Care Teams Developmental Services Worker Relationship Specialty Start Date End Date Wilmer Carnes MD [address] [place] [address] PCP - General Family Medicine 01/16/21 documented as of this encounter
--- OUTSIDE RECORDS SUMMARY | 2024-02-12 08:24 | XMS_ITS | Encounter Summary ---
Author Organization [facility] Address [address] [place] [address] Care Team Providers Care Crayon Grader Name Role Phone Wilmer Carnes MD Primary Care Provider Reason for Visit * Reason Onset Date Comments Surgery Scheduling 01/24/2023 Encounter Details Date Type Department Care Team (Late st Contact Info) Description 01/24/2023 Telephone [facility] - ENT [address] [place] [address] Magdalena Dowd Surgery Scheduling Social [...] and discuss reschedule. Left 2nd voice message S BUSHELER documented in this encounter Plan of Treatment Not on file documented as of this encounter Visit Diagnoses Not on filedocumented in this encounter Care Teams Crayon Grader Relationship Specialty Start Date End Date Wilmer Carnes MD [address] [place] [phone] PCP - General Family Medicine 01/16/21 documented as of this encounter
--- OUTSIDE RECORDS SUMMARY | 2024-02-12 08:24 | XMS_ITS | Encounter Summary ---
Author Organization [facility] Address [address] [place] [place] [address] Care Team Providers Care Wood Polisher Name Role Phone Wilmer Carnes MD Primary Care Provider [phone] Reason for Visit * Reason Onset Date Comments Surgery Rescheduled 01/23/2023 Encounter Details Date Type Department Care Team (Late st Contact Info) Description 01/23/2023 Telephone [facility] - ENT [address], [address] [place] [address] Magdalena Dowd Surgery Rescheduled Social [...] to discuss rescheduling surgery. Left voice message L RULE DIE MAKER APPRENTICE documented in this encounter Plan of Treatment Not on file documented as of this encounter Visit Diagnoses Not on filedocumented in this encounter Care Teams Wood Polisher Relationship Specialty Start Date End Date Wilmer Carnes MD [address] [place] [address] PCP - General Family Medicine 01/16/21 documented as of this encounter
--- OUTSIDE RECORDS SUMMARY | 2024-02-12 08:24 | XMS_ITS | Encounter Summary ---
Author Organization [facility] Address [address] [facility] [place] [address] Care Team Providers Care Software Qa Manager Name Role Phone Wilmer Carnes MD Primary Care Provider Reason for Visit * Reason Onset Date Comments Surgery Cancellation 01/28/2023 Encounter Details Date Type Department Care Team (Late st Contact Info) Description 01/28/2023 Telephone [facility] - ENT [address], [address] [place] [address] Magdalena Dowd Surgery Cancellation Social [...] NEEDS TO CANCEL. ASKED FOR RETURN CALL LMER/FUNERAL DIRECTOR documented in this encounter Plan of Treatment Not on file documented as of this encounter Visit Diagnoses Not on filedocumented in this encounter Care Teams Software Qa Manager Relationship Specialty Start Date End Date Wilmer Carnes MD [address] [place] [address] PCP - General Family Medicine 01/16/21 documented as of this encounter
--- OUTSIDE RECORDS SUMMARY | 2024-02-12 08:24 | XMS_ITS | Encounter Summary ---
Author Organization [facility] Address [address] [facility] [place] [address] Care Team Providers Care Environmental Protection Forester Name Role Phone Wilmer Carnes MD Primary Care Provider Reason for Visit * Reason Onset Date Comments Appointment 01/22/2023 Encounter Details Date Type Department Care Team (Late st Contact Info) Description 01/22/2023 Telephone [facility] - ENT [address] [place] [phone] Ellis Montano MD [address] [place] [address] [place] [address] Appointment Social History Tobacco Use Types Packs/Day [...] - Elena Astudillo - 01/22/2023 3:32 PM METAL WASHING MACHINE OPERATOR The patient left a message on the [facility] line requesting to reschedule her surgery with Dr. Montano that's scheduled on 02/12. L WASHING MACHINE OPERATOR documented in this encounter Plan of Treatment Not on file documented as of this encounter Visit Diagnoses Not on filedocumented in this encounter Care Teams Environmental Protection Forester Relationship Specialty Start Date End Date Wilmer Carnes MD [address] [place] [phone] PCP - General Family Medicine 01/16/21 documented as of this encounter
--- OUTSIDE RECORDS SUMMARY | 2024-02-12 08:24 | XMS_ITS | Encounter Summary ---
Author Organization [facility] Address [address] [facility] [place] [address] Care Team Providers Care Appraiser Boats And Marine Name Role Phone Wilmer Carnes MD Primary Care Provider Reason for Visit * Reason Comments Consultation Encounter Details Date Type Department Care Team (Late st Contact Info) Description 12/12/2022 3:00 PM CDT Office Visit [facility] - ENT [address] [place] [phone] Ellis Montano MD [address] [facility] [address] [place] [address] Nasal valve collapse (Primary Dx); Smoking Social [...] controls ??? COPD (chronic obstructive pulmonary disease) [facility]) ??? Diabetes ([facility]) ??? Lumbar herniated disc ??? PTSD [...] TO 40 UNITS PER DAY ??? Lancets (CDPTOUCH DELICA PLUS 33G EXTRA FINE LANCET) TEST 3 TO 4 TIMES DAILY ??? mupirocin (Bactroban) 2 % ointment ??? Deck App TechnologiesTouch Ultra test strip USE WITH METER FOUR [...] normal, external nasal valve collapse improved with Bosque and Modified Bosque Mouth: symmetric tongue mobility, no lesions/masses/ulcers Neck: [...] -Photos taken, orders submitted Ellis Montano MD Dry Cleaning Supervisor Facial Plastic and Reconstructive Surgery Otolaryngology- Head and Neck Surgery documented in this encounter Procedure Notes * Ellis Montano MD - 12/12/2022 5:03 PM CDTAssociated Order(s): PROC SINUS ENDOSCOPY Procedure(s): ID NASAL ENDOSCOPY,DX Pre-Procedure Diagnose(s): Nasal valve collapse [...] Procedure Name Priority Date/Time Associated Diagnosis Comments ID NASAL ENDOSCOPY,DX Routine 12/12/2022 5:03 PM CDT Nasal valve collapse documented in this encounter Results * ID NASAL ENDOSCOPY,DX (12/12/2022 5:03 PM CDT) Narrative [...] disorder documented in this encounter Care Teams Appraiser Boats And Marine Relationship Specialty Start Date End Date Wilmer Carnes MD [address] [place] [address] PCP - General Family Medicine 01/16/21 documented as of this encounter
--- OUTSIDE RECORDS SUMMARY | 2024-02-12 08:26 | XMS_ITS | Encounter Summary ---
Author Organization [facility] Address [address] [place] [address] Care Team Providers Care Supervisor Multifocal Lens Name Role Phone Unavailable Primary Care Provider Unavailabl e Reason for Visit * Reason Comments Cough Encounter Details Date Type Department Care Team (Late st Contact Info) Description 01/18/2019 10:20 AM LEGAL SERVICES PROFESSIONAL Office Visit [facility] [address] [phone] Provider, [facility] Acute non-recurrent maxillary sinusitis (Primary Dx); Cough; [...] Comments Blood Pressure 122/76 01/18/2019 10:24 AM LEGAL SERVICES PROFESSIONAL Pulse 83 01/18/2019 10:24 AM LEGAL SERVICES PROFESSIONAL Temperature 37 ??C (98.6 ??F) 01/18/2019 10:24 AM LEGAL SERVICES PROFESSIONAL Respiratory Rate 16 01/18/2019 10:24 AM LEGAL SERVICES PROFESSIONAL Oxygen Saturation 98% 01/18/2019 10:24 AM LEGAL SERVICES PROFESSIONAL Inhaled Oxygen Concentration - - Weight 93 kg (205 lb) 01/18/2019 10:24 AM LEGAL SERVICES PROFESSIONAL Height 157.5 cm (5' 2 ) 01/18/2019 10:24 AM LEGAL SERVICES PROFESSIONAL Body Mass Index 37.49 01/18/2019 10:24 AM LEGAL SERVICES PROFESSIONAL documented in this encounter Patient Instructions * Patient Instructions* Jaun Lund APRN-INSPECTOR [facility]IC - 01/18/2019 10:56 AM LEGAL SERVICES PROFESSIONAL Images from the original note were not [...] refuse treatment. The above information is an exceptional student education aide only. It is not intended as medical advice for individual conditions or treatments. Talk to your doctor, nurse or pharmacist before following any medical regimen to see if it is safe and effective for you. ?? Copyright [employer] 2019 Information is for End User's use only and may not be sold, redistributed or otherwise used for commercial purposes. All illustrations and images included in CareNotes?? are the copyrighted property of [employer] or [employer] Patient Education Upper Respiratory Infection FURRIER SHOP SUPERVISOR: An upper respiratory infection is also called [...] ask them during your visits. ?? Copyright [employer] 2019 Information is for End User's use only and may not be sold, redistributed or otherwise used for commercial purposes. All illustrations and images included in CareNotes?? are the copyrighted property of [employer] or [employer] The above information is an exceptional student education aide only. It is not intended as medical advice for individual conditions or treatments. Talk to your doctor, nurse or pharmacist before following any medical regimen to see if it is safe and effective for you. L SERVICES PROFESSIONAL documented in this encounter Progress Notes * [...] file Gets together: Not on file Attends orthodox service: Not on file Active member of [...] to Home .HOLGER Luther 01/18/2019 11:05 AM L SERVICES PROFESSIONAL documented in this encounter Plan of Treatment Not on file documented as of this encounter Procedures Procedure Name Priority Date/Time Associated Diagnosis Comments INFLUENZA A+B - POINT OF CARE (AMB) Routine 01/18/2019 10:45 AM LEGAL SERVICES PROFESSIONAL Acute non-recurrent maxillary sinusitis documented in this encounter Results * INFLUENZA A+B - POINT OF CARE (AMB) (01/18/2019 10:45 AM LEGAL SERVICES PROFESSIONAL) Influenza A Antigen Rapid Negative Negative Influenza B Antigen Rapid Negative Negative Influenza Internal Control present NEGATIVE - POSITIVE Influenza Lot Number [id number] Influenza Expiration Date 06 03 2020 Other NASOPHARYNGEAL SWAB / Unknown 01/18/2019 10:45 AM LEGAL SERVICES PROFESSIONAL Jaun Lund APRN-INSPECTOR [facility] LAB - POINT OF CA RE ORDERABLES documented in this encounter Visit Diagnoses Diagnosis Acute non-recurrent maxillary sinusitis- Primary Cough Antibiotic-induced yeast infection documented in this encounter
--- OUTSIDE RECORDS SUMMARY | 2024-02-12 08:27 | XMS_ITS | Encounter Summary ---
Author Organization [facility] Address [facility] [place] [address] [place] [address] Care Team Providers Care Pea Viner Mechanic Name Role Phone Holger Soriano Primary Care Provider [phone] Reason for Referral * Imaging (Urgent) - Authorized Specialty Diagnoses / Procedures Referred By Contac t Referred To Contact RADIOLOGY Diagnoses Post concussion syndrome Procedures [place] [address] [place] [address] Phone: tel: fax: Referral ID Status Reason Start Date Expiration Date V isits Requested Visits Authorized [id number] Authorized 02/09/2024 03/10/2025 1 1 LE AND OUTSOLE SPLITTER Reason for Visit * Reason Comments ER F/U Pt was seen at [facility] ER 02/07/2024 for extreme muscle spasms. Pt stated she couldn't talk, breath and felt like her body wasn't her body Encounter Details Date Type Department Care Team (Late st Contact Info) Description 02/09/2024 8:20 AM INSOLE AND OUTSOLE SPLITTER Office Visit [facility] Medical Group Family & Internal Medicine [facility] [address] [place] [address] [place] [address] [place] [address] ER F/U (Pt was seen at [facility] 02/07/2024 for extreme muscle spasms. Pt [...] Comments Blood Pressure 155/89 02/09/2024 8:59 AM INSOLE AND OUTSOLE SPLITTER Pulse 78 02/09/2024 8:59 AM INSOLE AND OUTSOLE SPLITTER Temperature 36.7 ??C (98.1 ??F) 02/09/2024 8:59 AM CS T Respiratory Rate 22 02/09/2024 8:59 AM INSOLE AND OUTSOLE SPLITTER Oxygen Saturation 98% 02/09/2024 8:59 AM INSOLE AND OUTSOLE SPLITTER Inhaled Oxygen Concentration - - Weight 88.7 kg (195 lb 9.6 oz) 02/09/2024 8:59 A M INSOLE AND OUTSOLE SPLITTER Height 159.4 cm (5' 2.75 ) 02/09/2024 8:59 AM CS T Body Mass Index 34.93 02/09/2024 8:59 AM INSOLE AND OUTSOLE SPLITTER documented in this encounter Progress Notes * Yajaira Nunez MA - 02/09/2024 8:20 AM CSTAddended by: YAJAIRA NUNEZ on: 02/09/2024 11:13 AM Modules accepted: Orders LE AND OUTSOLE SPLITTER * TYLER Weaver - 02/09/2024 8:20 AM CST Reason for Visit: ER F/U (Pt was seen at [facility] 02/07/2024 for extreme muscle spasms. Pt stated she couldn't talk, breath and felt like her body wasn't her body) History of Present Illness: 48-year-old female here for follow-up from ER visit on 02/07/2024. She states she had multiple symptoms with facial twitching muscle spasms of bilateral upper extremities and felt like her whole bodywas going into spasm. She went to [facility] where they had a CT of [...] Noted no new medications no new supplements [id number]. No new no illicit drug use. She [...] Past Medical History: Diagnosis Date ADHD Asthma ([facility]) COPD (chronic obstructive pulmonary disease) ([facility]) DINESH (obstructive sleep apnea) Past Surgical [...] Deep Tendon Reflexes: Reflexes normal. Comments: Abnormal [id number] test. Psychiatric: Mood and Affect: Mood normal. [...] No ref. provider found PCP: TYLER WEAVER LE AND OUTSOLE SPLITTER documented in this encounter Plan of Treatment Upcoming Encounters Date Type Department Care Team (Late st Contact Info) Description 02/12/2024 9:00 AM INSOLE AND OUTSOLE SPLITTER Appointment [facility] [address] [place] [address] [place] [address] [place] [address] [place] [address] [place], [place] [id number] 02/12/2024 2:00 PM INSOLE AND OUTSOLE SPLITTER [place]ointment [facility] [place] [address] [place] [address] [place] [address] [place] [address] 02/16/2024 9:00 AM INSOLE AND OUTSOLE SPLITTER Appointment [facility] [address] [place] [address] [place] [address] [place] [address] [place] [address] [place] [address] 02/19/2024 8:45 AM INSOLE AND OUTSOLE SPLITTER Appointment [facility] [address] [place] [address] [place] [address] [place] [address] [place] [address] [place] [address] 02/19/2024 9:00 AM INSOLE AND OUTSOLE SPLITTER Appointment [facility] [address] [place] [address] [place] [address] [place] [address] [place] [address] [place] [address] 02/23/2024 9:00 AM INSOLE AND OUTSOLE SPLITTER Appointment [facility] [address] [place] [address] [place] [address] [place] [address] [place] [address] [place] [address] 02/24/2024 1:30 PM INSOLE AND OUTSOLE SPLITTER Appointment [facility] [address] [place] [address] Ihsan Logan, [address] [place] [address] 02/26/2024 9:00 AM INSOLE AND OUTSOLE SPLITTER Appointment [facility] [address] [place] [address] [place] [address] [place] [address] [place] [address] [place] [address] 02/26/2024 9:15 AM INSOLE AND OUTSOLE SPLITTER Appointment [facility] [address] [place] [address] [place] [address] [place] [address] [place] [address] [place] [address] 03/01/2024 9:00 AM INSOLE AND OUTSOLE SPLITTER Appointment [facility] [address] [place] [address] [place] [address] [place] [address] Holger Soriano, TYLER [address] [place] [address] Lorene Branch, CONSTRUCTION REPRESENTATIVE 03/02/2024 12:27 PM INSOLE AND OUTSOLE SPLITTER Hospital Encounter [address] [address] [place] [address] [place] [address] 03/02/2024 12:27 PM INSOLE AND OUTSOLE SPLITTER - 03/02/2024 1:07 PM INSOLE AND OUTSOLE SPLITTER Surgery [facility] [address] [place] [address] [place] [address] [place] [address] MANIPULATION SHOULDER 03/05/2024 9:00 AM INSOLE AND OUTSOLE SPLITTER Appointment [facility] [address] [place] [address] [place] [address] [place] [address] Lorene Branch, CONSTRUCTION REPRESENTATIVE 03/08/2024 9:00 AM INSOLE AND OUTSOLE SPLITTER Appointment [facility] [address] [place] [address] [place] [address] [place] [address] Lorene Branch, CONSTRUCTION REPRESENTATIVE 03/11/2024 9:15 AM INSOLE AND OUTSOLE SPLITTER Appointment [facility] [address] [place] [address] [place] [address] [place] [address] Lorene Branch, CONSTRUCTION REPRESENTATIVE 03/15/2024 9:00 AM INSOLE AND OUTSOLE SPLITTER Appointment [facility] [address] [place] [address] [place] [address] [place] [address] Lorene Branch, CONSTRUCTION REPRESENTATIVE 03/18/2024 9:15 AM INSOLE AND OUTSOLE SPLITTER Appointment [facility] [address] [place] [address] [place] [address] [place] [address] Lorene Branch, CONSTRUCTION REPRESENTATIVE 03/22/2024 9:00 AM INSOLE AND OUTSOLE SPLITTER Appointment [facility] [address] [place] [address] [place] [address] [place] [address] Lorene Branch, CONSTRUCTION REPRESENTATIVE 03/25/2024 9:15 AM INSOLE AND OUTSOLE SPLITTER Appointment [facility] [address] [place] [address] [place] [address] [place] [address] Lorene Branch, CONSTRUCTION REPRESENTATIVE 04/21/2024 11:20 AM INSOLE AND OUTSOLE SPLITTER Office Visit [facility] Medical Group Family & Internal Medicine [facility] [address] [place] [phone] [place] [address] [place] [address] Scheduled Orders Name Type Priority Associated Diagnoses Orde r Schedule MRI BRAIN WWO CON MRI CHELE Post concussion syndrome Expected: 02/09/2024, Expires: 02/08/2025 Scheduled Procedures Name Priority Associated Diagnoses Date/Ti me MANIPULATION SHOULDER Adhesive capsulitis of left shoulder 03/02/2024 12:27 PM INSOLE AND OUTSOLE SPLITTER INJECTION JOINT Adhesive capsulitis of left shoulder 03/02/2024 12:27 PM INSOLE AND OUTSOLE SPLITTER documented as of this encounter Results * TSH W/REFLEX (02/09/2024 9:50 AM INSOLE AND OUTSOLE SPLITTER) TSH 0.761 0.358 - 3.74 uIU/ML 02/09/2024 11:36 AM INSOLE AND OUTSOLE SPLITTER [facility] Comment: HIGH DOSES OF BIOTIN MAY INTERFERE WITH THIS TEST RESULT. CORRELATION TO CLINICAL HISTORY AND PRESENTATION RECOMMENDED. FREE T4 NOT INDICATED 02/09/2024 9:50 AM INSOLE AND OUTSOLE SPLITTER [facility] Final Result Performing Organization Address [facility] Co de Phone Number [facility] [address] [place] [address], * (ABNORMAL) VITAMIN D, 25 OH (02/09/2024 9:50 AM INSOLE AND OUTSOLE SPLITTER) [facility] VITAMIN D 25 HYDROXY S/P/B 15(L) 30 - 100 NG/ML 02/09/2024 10:43 AM INSOLE AND OUTSOLE SPLITTER [facility] Comment: ? INTERPRETATION ? DEFICIENT ??<20 ? INSUFFICIENT 20-29 ?SUFFICIENT 30-100 02/09/2024 9:50 AM INSOLE AND OUTSOLE SPLITTER [facility] Final Result Performing Organization Address [facility] Co de Phone Number [facility] [address] [place] [address], * MAGNESIUM (02/09/2024 9:50 AM INSOLE AND OUTSOLE SPLITTER) [facility] MAGNESIUM 1.9 1.8 - 2.4 MG/DL 02/09/2024 10:20 AM INSOLE AND OUTSOLE SPLITTER [facility] 02/09/2024 9:50 AM INSOLE AND OUTSOLE SPLITTER [facility] Final Result Performing Organization Address [facility] Co de Phone Number [facility] [address] [place] [address], * (ABNORMAL) CBC W/DIFF AUTOMATED (02/09/2024 9:50 AM INSOLE AND OUTSOLE SPLITTER) [facility] WBC 7.25 4.4 - 11.0 x10'3/uL 02/09/2024 10:06 AM [facility] RBC 4.92 4.50 - 5.10 x10'6/uL 02/09/2024 10:06 AM [facility] HGB 13.9 12.3 - 15.3 G/DL 02/09/2024 10:06 AM [facility] HCT 41.3 35.9 - 44.6 % 02/09/2024 10:06 AM [facility] MCV 83.9 80.0 - 96.0 FL 02/09/2024 10:06 AM [facility] MCH 28.3 25.3 - 30.9 PG 02/09/2024 10:06 AM [facility] MCHC 33.7 31.0 - 34.1 G/DL 02/09/2024 10:06 AM [facility] RDW 13.8 12.4 - 15.1 % 02/09/2024 10:06 AM [facility] PLT 244 151 - 353 x10'3/uL 02/09/2024 10:06 AM [facility] MPV 9.1(L) 9.6 - 12.0 FL 02/09/2024 10:06 AM [facility] RBC MORPHOLOGY NORMAL 02/09/2024 10:06 AM [facility] PLT MORPH. NORMAL 02/09/2024 10:06 AM [facility] WBC MORPHOLOGY NORMAL 02/09/2024 10:06 AM [facility] LYMPHOCYTES % 24.7 15.8 - 45.0 % 02/09/2024 10:06 AM [facility] NEUTROPHILS % 59.3 42.1 - 71.9 % 02/09/2024 10:06 AM [facility] MONOCYTES % 4.8(L) 5.7 - 12.5 % 02/09/2024 10:06 AM [facility] EOSINOPHILS 10.3(H) 0.0 - 5.6 % 02/09/2024 10:06 AM [facility] BASOPHILS 0.8 0.0 - 1.3 % 02/09/2024 10:06 AM [facility] ABS. NEUTROPHILS 4.29 1.40 - 6.00 x10'3/uL 02/09/2024 10:06 AM [facility] IMMATURE GRANS % 0.1 0.0 - 0.5 % 02/09/2024 10:06 AM [facility] ABS. LYMPHOCYTES 1.79 0.80 - 4.70 x10'3/uL 02/09/2024 10:06 AM [facility] 02/09/2024 9:50 AM [facility] Final Result [facility] [address] [place] [address], * (ABNORMAL) COMPREHENSIVE METABOLIC PANEL (02/09/2024 9:50 AM INSOLE AND OUTSOLE SPLITTER) GLUCOSE 90 70 - 99 MG/DL 02/09/2024 10:20 AM [facility] BUN 14 7 - 18 MG/DL 02/09/2024 10:20 AM [facility] CREATININE S/P/B 0.63 0.55 - 1.02 MG/DL 02/09/2024 10:20 AM [facility] SODIUM S/P/B 141 136 - 145 MMOL/L 02/09/2024 10:20 AM [facility] POTASSIUM S/P/B 4.1 3.5 - 5.1 MMOL/L 02/09/2024 10:20 AM [facility] CHLORIDE S/P/B 107 100 - 108 MMOL/L 02/09/2024 10:20 AM [facility] CO2 25.3 21 - 32 MMOL/L 02/09/2024 10:20 AM [facility] CALCIUM S/P/B 9.1 8.5 - 10.1 MG/DL 02/09/2024 10:20 AM [facility] BILIRUBIN TOTAL S/P/B 1.2 0.2 - 1.2 MG/DL 02/09/2024 10:20 AM [facility] TOTAL PROTEIN S/P/B 7.9 6.4 - 8.2 G/DL 02/09/2024 10:20 AM [facility] ALBUMIN S/P/B 3.8 3.4 - 5.0 G/DL 02/09/2024 10:20 AM [facility] AST 35 15 - 37 U/L 02/09/2024 10:20 AM [facility] ALT 49 14 - 55 U/L 02/09/2024 10:20 AM [facility] ALKALINE PHOSPHATASE S/P/B 86 50 - 136 U/L 02/09/2024 10:20 AM [facility] ANION GAP 8.7 5 - 15 MMOL/L 02/09/2024 10:20 AM [facility] BUN CREATININE RATIO 22.2 6 - 26 02/09/2024 10:20 AM [facility] A/G RATIO 0.9(L) 1.0 - 2.0 RATIO 02/09/2024 10:20 AM [facility] GFR ESTIMATE >90 >90 ML/MIN/1.7 3 M2 02/09/2024 10:20 AM INSOLE AND OUTSOLE SPLITTER [facility] Comment: NOTE: eGFR is not calculated for patients <18 years of age. This is an estimated GFR calculation using the new CKD EPI creatinine equation without race and so does not require a correction factor for race. This estimated GFR should not be used for calculating drug doses. 02/09/2024 9:50 AM INSOLE AND OUTSOLE SPLITTER [facility] Final Result [facility] [address] [place] [address], documented in this encounter Visit Diagnoses Diagnosis Frozen shoulder- Primary Adhesive capsulitis of shoulder Post concussion syndrome- Primary Postconcussion syndrome Muscle spasm Spasm of muscle Vitamin D deficiency Unspecified vitamin D deficiency Type 2 diabetes mellitus without complications ([facility]) Type II or unspecified type diabetes mellitus without mention of complication, not stated as uncontrolled Adhesive capsulitis of left shoulder Adhesive capsulitis of shoulder documented in this encounter Additional Health Concerns Assessment Noted Time PHQ-9 Depression Total Score: 24 024 3:24 PM CDT documented as of this encounter Care Teams Pea Viner Mechanic Relationship Specialty [place] [address] [place] [address] PCP - General Physician Director Of Global Marketing Medical 09/16/23 documented as of this encounter
--- OUTSIDE RECORDS SUMMARY | 2024-02-12 08:27 | XMS_ITS | Encounter Summary ---
Author Organization [facility] Address [facility] [place] [address] [place] [address] Care Team Providers Care Barrel And Receiver Aligner Name Role Phone Holger Soriano Primary Care Provider [phone] Reason for Visit * Reason Onset Date Comments Pre-op Question(s) 02/05/2024 Encounter Details Date Type Department Care Team (Late st Contact Info) Description 02/05/2024 Telephone [facility] Medical Group Orthopedic Surgery [facility] [address] [address] [address] [place] [address] [place] [address] [place], [place] [address] Pre-op Question(s) Social History Tobacco Use Types [...] as of 02/25/2024 [facility] and Medicaid [place] secondary. Will now have [facility] PPO plan and Medicare A&B. Unsure as to if [facility] will be primary or not due to her disability. Medicare ID#: [id number] [facility] ID#: [id number] Patient also said that she has been unable to schedule her lumbar spine MRI. Number for Central Scheduling given to the patient. ESTATE FINANCIAL ANALYST * Veronica Melton - 02/05/2024 12:47 PM CST Patient called in to let us know that her new insurance is now in effect and wanted to know if their is anything she needs to do to be able to have surgery 03/02/24, also has questions regarding the MRI that Dr Logan ordered ESTATE FINANCIAL ANALYST documented in this encounter Plan of Treatment Upcoming Encounters Date Type Department Care Team (Late st Contact Info) Description 02/12/2024 9:00 AM REAL ESTATE FINANCIAL ANALYST Appointment [facility] [address] [place] [address] [place] [address] [place] [address] [place] [address] [place] [address] 02/12/2024 2:00 PM REAL ESTATE FINANCIAL ANALYST [facility]ment [facility] [address] [place] [address] [place] [address] [place] [address] 02/16/2024 9:00 AM REAL ESTATE FINANCIAL ANALYST [facility]ointment [facility] [address] [place] [address] [place] [address] [place] [address] [place] [address] [place] [address] 02/19/2024 8:45 AM REAL ESTATE FINANCIAL ANALYST Appointment [facility] [address] [place] [address] [place] [address] [place] [address] [place] [address] [place] [address] 02/19/2024 9:00 AM REAL ESTATE FINANCIAL ANALYST Appointment [facility] [address] [place] [address] [place] [address] [place] [address] [place] [address] [place] [address] 02/23/2024 9:00 AM REAL ESTATE FINANCIAL ANALYST Appointment [facility] [address] [place] [address] [place] [address] [place] [address] [place] [address] [place] [address] 02/24/2024 1:30 PM REAL ESTATE FINANCIAL ANALYST Appointment [facility] MRI [address] [place] [address] [place] [address] [place] [address] 02/26/2024 9:00 AM REAL ESTATE FINANCIAL ANALYST Appointment [facility] [address] [place] [address] [place] [address] [place] [address] [place] [address] [place] [address] 02/26/2024 9:15 AM REAL ESTATE FINANCIAL ANALYST Appointment [facility] [address] [place] [address] [place] [address] [place] [address] [place] [address] [place] [address] 03/01/2024 9:00 AM REAL ESTATE FINANCIAL ANALYST Appointment [facility] [address] [place] [address] [place] [address] [place] [address] [place] [address] [place] [address] Lorene Branch, MD PSYCHIATRY 03/02/2024 12:27 PM REAL ESTATE FINANCIAL ANALYST Hospital Encounter [facility] Surgery [address] [place] [address] [place] [address] [place] [address] 03/02/2024 12:27 PM REAL ESTATE FINANCIAL ANALYST - 03/02/2024 1:07 PM REAL ESTATE FINANCIAL ANALYST Surgery [facility] [address] [place] [address] [place] [address] [place] [address] MANIPULATION SHOULDER 03/05/2024 9:00 AM REAL ESTATE FINANCIAL ANALYST Appointment [facility] [address] [place] [address] [place] [address] [place] [address] Lorene Branch, MD PSYCHIATRY 03/08/2024 9:00 AM REAL ESTATE FINANCIAL ANALYST Appointment [facility] [address] [place] [address] [place] [address] [place] [address] Lorene Branch, MD PSYCHIATRY 03/11/2024 9:15 AM REAL ESTATE FINANCIAL ANALYST Appointment [facility] [address] [place] [address] [place] [address] [place] [address] Lorene Branch, MD PSYCHIATRY 03/15/2024 9:00 AM REAL ESTATE FINANCIAL ANALYST Appointment [facility] [address] [place] [address] [place] [address] [place] [address] Lorene Branch, MD PSYCHIATRY 03/18/2024 9:15 AM REAL ESTATE FINANCIAL ANALYST Appointment [facility] [address] [place] [address] [place] [address] [place] [address] Lorene Branch, MD PSYCHIATRY 03/22/2024 9:00 AM REAL ESTATE FINANCIAL ANALYST Appointment [facility] [address] [place] [address] [place] [address] [place] [address] Lorene Branch, MD PSYCHIATRY 03/25/2024 9:15 AM REAL ESTATE FINANCIAL ANALYST Appointment [facility] [address] [place] [address] [place] [address] [place] [address] Lorene Branch, MD PSYCHIATRY 04/21/2024 11:20 AM REAL ESTATE FINANCIAL ANALYST Office Visit [facility] Medical Group Family & Internal Medicine [facility] [id number] [place] [phone] [place] [address] [place] [address] Scheduled Procedures Name Priority Associated Diagnoses Date/Ti me MANIPULATION SHOULDER Adhesive capsulitis of left shoulder 03/02/2024 12:27 PM REAL ESTATE FINANCIAL ANALYST INJECTION JOINT Adhesive capsulitis of left shoulder 03/02/2024 12:27 PM REAL ESTATE FINANCIAL ANALYST documented as of this encounter Visit Diagnoses Not on filedocumented in this encounter Additional Health Concerns Assessment Noted Time PHQ-9 Depression Total Score: 24 024 3:24 PM CDT documented as of this encounter Care Teams Barrel And Receiver Aligner Relationship Specialty [place] [address] [place] [address] PCP - General Physician [facility] 09/16/23 documented as of this encounter
--- OUTSIDE RECORDS SUMMARY | 2024-02-12 08:27 | XMS_ITS | Encounter Summary ---
Author Organization [facility] Address [facility] [place] [address] [place] [address] Care Team Providers Care Rebar Bender Name Role Phone Holger Soriano Primary Care Provider [phone] Encounter Details Date Type Department Care Team (Late st Contact Info) Description 01/08/2024 11:59 PM CHIEF CATALYST OPERATOR Anesthesia Event [facility] [address] [place], [place] [id number] Lalita Rodriguez, [address] [place] [address] Anesthesia Record Procedure Summary Procedure Name Responsible [...] OR Notes * Anesthesia Preprocedure Evaluation - Lalita Rodriguez CRNA - 12/30/2023 12:26 PM CST [...] LEADS] No previous ECG available for comparison F CATALYST OPERATOR NPO Status: Physical Exam STOP-Bang Assessment: Anesthesia Plan . F CATALYST OPERATOR documented in this encounter Plan of Treatment Upcoming Encounters Date Type Department Care Team (Late st Contact Info) Description 02/12/2024 9:00 AM CHIEF CATALYST OPERATOR Appointment [facility] Outpatient [facility]hab [address] [place] [address] [place] [address] [place] [address] [place] [address] [place] [address] 02/12/2024 2:00 PM CHIEF CATALYST OPERATOR Appointment [facility] [address] [place] [address] [place] [address] [place] [address] 02/16/2024 9:00 AM CHIEF CATALYST OPERATOR Appointment [facility]patient Rehab [address] [place] [address] [place] [address] [place] [address] [place] [address] [place] [address] 02/19/2024 8:45 AM CHIEF CATALYST OPERATOR Appointment [facility] Outpatient Rehab [address] [place] [address] [place] [address] [place] [address] [place] [address] [place] [address] 02/19/2024 9:00 AM CHIEF CATALYST OPERATOR Appointment [facility] Outpatient Rehab [address] [place] [address] [place] [address] [place] [address] [place] [address] [place] [address] 02/23/2024 9:00 AM CHIEF CATALYST OPERATOR Appointment [facility] Outpatient Rehab [address] [place] [address] [place] [address] [place] [address] [place] [address] [place] [address] 02/24/2024 1:30 PM CHIEF CATALYST OPERATOR Appointment [facility] MRI [address] [place] [address] [place] [address] [place] [address] 02/26/2024 9:00 AM CHIEF CATALYST OPERATOR Appointment [facility] Outpatient Rehab [address] [place] [address] [place] [address] [place] [address] [place] [address] [place] [address] 02/26/2024 9:15 AM CHIEF CATALYST OPERATOR Appointment [facility]patient Rehab [address] [place] [address] [place] [address] [place] [address] [place] [address] [place] [address] 03/01/2024 9:00 AM CHIEF CATALYST OPERATOR Appointment [facility]patient Rehab [address] [place] [address] [place] [address] [place] [address] [place] [address] [place] [address] Lorene Branch, REGULATORY PROCESS MANAGER 03/02/2024 12:27 PM CHIEF CATALYST OPERATOR Hospital Encounter [facility] Surgery [address] [place] [address] [place] [address] [place] [address] 03/02/2024 12:27 PM CHIEF CATALYST OPERATOR - 03/02/2024 1:07 PM CHIEF CATALYST OPERATOR Surgery [facility] [address] [place] [address] [place] [address] [place] [address] MANIPULATION SHOULDER 03/05/2024 9:00 AM CHIEF CATALYST OPERATOR Appointment [facility]patient [facility]hab [address] [place] [address] [place] [address] [place] [address] Lorene Branch, REGULATORY PROCESS MANAGER 03/08/2024 9:00 AM CHIEF CATALYST OPERATOR Appointment [facility] [address] [place] [address] [place] [address] [place] [address] Lorene Branch, REGULATORY PROCESS MANAGER 03/11/2024 9:15 AM CHIEF CATALYST OPERATOR Appointment [facility] [address] [place] [address] [place] [address] [place] [address] Lorene Branch, REGULATORY PROCESS MANAGER 03/15/2024 9:00 AM CHIEF CATALYST OPERATOR Appointment [facility] [address] [place] [address] [place] [address] [place] [address] Lorene Branch, REGULATORY PROCESS MANAGER 03/18/2024 9:15 AM CHIEF CATALYST OPERATOR Appointment [facility] [address] [place] [address] [place] [address] [place] [address] Lorene Branch, REGULATORY PROCESS MANAGER 03/22/2024 9:00 AM CHIEF CATALYST OPERATOR Appointment [facility] [address] [place] [address] [place] [address] [place] [address] Lorene Branch, REGULATORY PROCESS MANAGER 03/25/2024 9:15 AM CHIEF CATALYST OPERATOR Appointment [facility] [address] [place] [address] [place] [address] [place] [address] Lorene Branch, REGULATORY PROCESS MANAGER 04/21/2024 11:20 AM CHIEF CATALYST OPERATOR Office Visit [facility] Family & Internal Medicine [address] [address] [place] [address] [place] [address] Scheduled Procedures Name Priority Associated Diagnoses Date/Ti me MANIPULATION SHOULDER Adhesive capsulitis of left shoulder 03/02/2024 12:27 PM CHIEF CATALYST OPERATOR INJECTION JOINT Adhesive capsulitis of left shoulder 03/02/2024 12:27 PM CHIEF CATALYST OPERATOR documented as of this encounter Visit Diagnoses Not on filedocumented in this encounter Additional Health Concerns Assessment Noted Time PHQ-9 Depression Total Score: 24 09/15/ 024 3:24 PM CDT documented as of this encounter Care Teams Rebar Bender Relationship Specialty [place] [address] [facility] [place] [address] PCP - General Physician Lodging House Keeper Medical 09/16/23 documented as of this encounter
--- OUTSIDE RECORDS SUMMARY | 2024-02-12 08:27 | XMS_ITS | Encounter Summary ---
Author Organization [facility] Address [facility] [place], [place] [address] [place] [address] Care Team Providers Care Miner Assistant Name Role Phone Holger Soriano Primary Care Provider [phone] Encounter Details Date Type Department Care Team [...] st Contact Info) Description 02/12/2024 9:00 AM WIRER PASSENGER CAR Appointment [facility] Outpatient Rehab [address] [place], [place] [address] [place] [address] [place] [address] [place] [address] [place] [address] 02/12/2024 2:00 PM WIRER PASSENGER CAR Appointment [facility] [place] [address] [place] [address] [place] [address] [place] [address] 02/16/2024 9:00 AM WIRER PASSENGER CAR Appointment [facility] Outpatient Rehab [address] [place] [address] [place] [address] [place] [address] [place] [address] [place] [address] 02/19/2024 8:45 AM WIRER PASSENGER CAR Appointment [facility] Outpatient Rehab [address] [place] [address] [place] [address] [place] [address] [place] [address] [place] [address] 02/19/2024 9:00 AM WIRER PASSENGER CAR Appointment [facility] Outpatient Rehab [address] [place] [address] [place] [address] [place] [address] [place] [address] [place] [address] 02/23/2024 9:00 AM WIRER PASSENGER CAR Appointment [facility] Outpatient Rehab [address] [place] [address] [place] [address] [place] [address] [place] [address] [place] [address] 02/24/2024 1:30 PM WIRER PASSENGER CAR Appointment [facility] [place] [address] [place] [address] [place] [address] [place] [address] 02/26/2024 9:00 AM WIRER PASSENGER CAR Appointment [facility] Outpatient Rehab [address] [place] [address] [place] [address] [place] [address] [place] [address] [place] [address] 02/26/2024 9:15 AM WIRER PASSENGER CAR Appointment [facility] Outpatient Rehab [address] [place] [address] [place] [address] [place] [address] [place] [address] [place] [address] 03/01/2024 9:00 AM WIRER PASSENGER CAR Appointment [facility] Outpatient Rehab [address] [place] [address] [place] [address] [place] [address] [place] [address] [place] [address] Lorene Branch, CIRCULAR SAW EDGE FUSER 03/02/2024 12:27 PM WIRER PASSENGER CAR Hospital Encounter [facility] [address] [place] [address] [place] [address] [place] [address] 03/02/2024 12:27 PM WIRER PASSENGER CAR - 03/02/2024 1:07 PM WIRER PASSENGER CAR Surgery [facility] Surgery [address] [place] [address] [place] [address] [place] [address] MANIPULATION SHOULDER 03/05/2024 9:00 AM WIRER PASSENGER CAR Appointment [facility] Outpatient Rehab [address] [place] [address] [place] [address] [place] [address] Lorene Branch, CIRCULAR SAW EDGE FUSER 03/08/2024 9:00 AM WIRER PASSENGER CAR Appointment [facility] Outpatient Rehab [address] [place] [address] [place] [address] [place] [address] Lorene Branch, CIRCULAR SAW EDGE FUSER 03/11/2024 9:15 AM WIRER PASSENGER CAR Appointment [facility] Outpatient Rehab [address] [place] [address] [place] [address] [place] [address] Lorene Branch, CIRCULAR SAW EDGE FUSER 03/15/2024 9:00 AM WIRER PASSENGER CAR Appointment [facility] Outpatient Rehab [address] [place] [address] [place] [address] [place] [address] Lorene Branch, CIRCULAR SAW EDGE FUSER 03/18/2024 9:15 AM WIRER PASSENGER CAR Appointment [facility] Outpatient Rehab [address] [place] [address] [place] [address] [place] [address] Lorene Branch, CIRCULAR SAW EDGE FUSER 03/22/2024 9:00 AM WIRER PASSENGER CAR Appointment [facility] Outpatient Rehab [address] [place] [address] [place] [address] [place] [address] Lorene Branch, CIRCULAR SAW EDGE FUSER 03/25/2024 9:15 AM WIRER PASSENGER CAR Appointment [facility] Outpatient Rehab [address] [place] [address] [place] [address] [place] [address] Lorene Branch, CIRCULAR SAW EDGE FUSER 04/21/2024 11:20 AM WIRER PASSENGER CAR Office Visit [facility] Family & Internal Medicine - [address] [address] [place] [address] [place] [address] Scheduled Procedures Name Priority Associated Diagnoses Date/Ti me MANIPULATION SHOULDER Adhesive capsulitis of left shoulder 03/02/2024 12:27 PM WIRER PASSENGER CAR INJECTION JOINT Adhesive capsulitis of left shoulder 03/02/2024 12:27 PM WIRER PASSENGER CAR documented as of this encounter Visit Diagnoses Not on filedocumented in this encounter Additional Health Concerns Assessment Noted Time PHQ-9 Depression Total Score: 024 3:24 PM CDT documented as of this encounter Care Teams Miner Assistant Relationship Specialty [place] [address] [place] [address] PCP - General Physician Information Security Architect Medical 09/16/23 documented as of this encounter
--- OUTSIDE RECORDS SUMMARY | 2024-02-12 08:27 | XMS_ITS | Encounter Summary ---
Author Organization [facility] Address [facility]. [place], [place] [address] [place] [address] Care Team Providers Care Quality Assurance Practice Manager Name Role Phone Holger Soriano Primary Care Provider [phone] Encounter Details Date Type Department Care Team [...] st Contact Info) Description 02/12/2024 9:00 AM INTERCELL CONNECTOR PLACER Appointment [facility] Outpatient Rehab [address] [place], [place] [address] [place] [address] [place] [id number] [place] [address] [place] [address] 02/12/2024 2:00 PM INTERCELL CONNECTOR PLACER Appointment [facility] MRI [address] [place] [address] [place] [address] [place] [address] 02/16/2024 9:00 AM INTERCELL CONNECTOR PLACER Appointment [facility] Outpatient Rehab [address] [place] [address] [place] [address] [place] [address] [place] [address] [place] [address] 02/19/2024 8:45 AM INTERCELL CONNECTOR PLACER Appointment [facility] Outpatient Rehab [address] [place] [address] [place] [address] [place] [address] [place] [address] [place] [address] 02/19/2024 9:00 AM INTERCELL CONNECTOR PLACER Appointment [facility] Outpatient Rehab [address] [place] [address] [place] [address] [place] [address] [place] [address] [place] [address] 02/23/2024 9:00 AM INTERCELL CONNECTOR PLACER Appointment [facility] Outpatient Rehab [address] [place] [address] [place] [address] [place] [address] [place] [address] [place] [address] 02/24/2024 1:30 PM INTERCELL CONNECTOR PLACER Appointment [facility] [place] [address] [place] [address] [place] [address] [place] [address] 02/26/2024 9:00 AM INTERCELL CONNECTOR PLACER Appointment [facility] Outpatient Rehab [address] [place] [address] [place] [address] [place] [address] [place] [address] [place] [address] 02/26/2024 9:15 AM INTERCELL CONNECTOR PLACER Appointment [facility] Outpatient Rehab [address] [place] [address] [place] [address] [place] [address] [place] [address] [place] [address] 03/01/2024 9:00 AM INTERCELL CONNECTOR PLACER Appointment [facility] Outpatient Rehab [address] [place] [address] [place] [address] [place] [address] [place] [address] [place] [address] Lorene Branch, FAITH DOCTOR 03/02/2024 12:27 PM INTERCELL CONNECTOR PLACER Hospital Encounter [facility] [address] [place] [address] [place] [address] [place] [address] 03/02/2024 12:27 PM INTERCELL CONNECTOR PLACER - 03/02/2024 1:07 PM INTERCELL CONNECTOR PLACER Surgery [facility] Surgery [address] [place] [address] [place] [address] [place] [address] MANIPULATION SHOULDER 03/05/2024 9:00 AM INTERCELL CONNECTOR PLACER Appointment [facility] Outpatient Rehab [address] [place] [address] [place] [address] [place] [address] Lorene Branch, FAITH DOCTOR 03/08/2024 9:00 AM INTERCELL CONNECTOR PLACER Appointment [facility] Outpatient Rehab [address] [place] [address] [place] [address] [place] [address] Lorene Branch, FAITH DOCTOR 03/11/2024 9:15 AM INTERCELL CONNECTOR PLACER Appointment [facility] Outpatient Rehab [address] [place] [address] [place] [address] [place] [address] Lorene Branch, FAITH DOCTOR 03/15/2024 9:00 AM INTERCELL CONNECTOR PLACER Appointment [facility] Outpatient Rehab [address] [place] [address] [place] [address] [place] [address] Lorene Branch, FAITH DOCTOR 03/18/2024 9:15 AM INTERCELL CONNECTOR PLACER Appointment [facility] Outpatient Rehab [address] [place] [address] [place] [address] [place] [address] Lorene Branch, FAITH DOCTOR 03/22/2024 9:00 AM INTERCELL CONNECTOR PLACER Appointment [facility] Outpatient Rehab [address] [place] [address] [place] [address] [place] [address] Lorene Branch, FAITH DOCTOR 03/25/2024 9:15 AM INTERCELL CONNECTOR PLACER Appointment [facility] Outpatient Rehab [address] [place] [address] [place] [address] [place] [address] Lorene Barnch, FAITH DOCTOR 04/21/2024 11:20 AM INTERCELL CONNECTOR PLACER Office Visit [facility] Family & Internal Medicine - [address] [address] [place] [address] [place] [address] Scheduled Procedures Name Priority Associated Diagnoses Date/Ti me MANIPULATION SHOULDER Adhesive capsulitis of left shoulder 03/02/2024 12:27 PM INTERCELL CONNECTOR PLACER INJECTION JOINT Adhesive capsulitis of left shoulder 03/02/2024 12:27 PM INTERCELL CONNECTOR PLACER documented as of this encounter Visit Diagnoses Not on filedocumented in this encounter Additional Health Concerns Assessment Noted Time PHQ-9 Depression Total Score: 024 3:24 PM CDT documented as of this encounter Care Teams Quality Assurance Practice Manager Relationship Specialty [place] [address] [place] [address] PCP - General Physician Security Technician Medical 09/16/23 documented as of this encounter
--- OUTSIDE RECORDS SUMMARY | 2024-02-12 08:27 | XMS_ITS | Clinical Summary ---
Author Organization [facility] Address [facility] 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 Will discontinue vbsq-kok-lrhbyhq ibuprofen in place her on prescription straight [...] asso ciated with type 2 diabetes mellitus ([facility]) 11/28/2016 Posttraumatic stress disorder 10/04/2013 Overview (11/07/2023): PTSD Type 2 diabetes mellitus ([facility]) 10/04 Overview (11/07/2023): Diabetes mellitus type 2 Encounters Date Type Department Care Team Description 02/11/2024 [facility] Message [facility] [place] [address] [phone] Kayla [facility] Provider Pain Clinic Referral 02/09/2024 9:47 AM RESTAURANT TEAM MEMBER - 02/09/2024 11:59 PM RESTAURANT TEAM MEMBER Hospital Encounter [facility] [address] [place], [place] [phone] Holger Soriano PA Arrived Discharge Disposition: Home or Self Care (Routine Discharge) 02/09/2024 8:20 AM RESTAURANT TEAM MEMBER Office Visit [facility] [address] [place] [address] Holger Soriano PA ER F/U (Pt was seen at [facility] 02/07/2024 for extreme muscle spasms. Pt stated she couldn't talk, breath and felt like her body wasn't her body) 02/09/2024 Telephone [facility] [address] [place] [address] Holger Soriano PA Other (MRI order ) 02/09/2024 Travel 02/05/2024 10:55 AM RESTAURANT TEAM MEMBER - 02/05/2024 11:59 PM RESTAURANT TEAM MEMBER Hospital Encounter [facility] [address] [place] [phone] Padmaja Marie, PT Holger Soriano PA Back Pain; Shoulder Pain Discharge Disposition: Home or Self Care (Routine Discharge) 02/05/2024 Telephone [facility] [address] [phone] Ihsan Macias DO Pre-op Question(s) 02/05/2024 Travel 01/20/2024 10:20 AM RESTAURANT TEAM MEMBER Office Visit [facility] Internal [address] [phone] Holger Soriano PA Follow Up (1 month follow up); Medication Management; Sinus Problem (Pt c/o sinus congestion X 3 days/Pt completed antibiotics for same symptom 1 week ago) 01/20/2024 8:58 AM RESTAURANT TEAM MEMBER - 01/20/2024 11:59 PM RESTAURANT TEAM MEMBER Hospital Encounter [facility] [address] [place] [phone] Holger Soriano PA Eddy, Sandi L, PTA Shoulder Pain; Back Pain Discharge Disposition: Home or Self Care (Routine Discharge) 01/20/2024 Travel 01/12/2024 1:00 PM RESTAURANT TEAM MEMBER - 01/12/2024 11:59 PM RESTAURANT TEAM MEMBER Hospital Encounter [facility] [address] [place] [phone] Padmaja Marie, PT Holger Soriano PA Back Pain; Shoulder Pain Discharge Disposition: Home or Self Care (Routine Discharge) 01/12/2024 Travel 01/09/2024 8:23 AM RESTAURANT TEAM MEMBER - 01/09/2024 11:59 PM RESTAURANT TEAM MEMBER Hospital Encounter [facility] [address] [place] [phone] Padmaja Marie, PT Ihsan Macias DO Bowen, Jeremy S, PA Shoulder Pain Discharge Disposition: Home or Self Care (Routine Discharge) 01/09/2024 Travel 01/01/[address] [facility] [place] [address] Ihsan Macias DO 12/31/2023 Telephone [facility] [address] [address] Ihsan Macias DO Question 12/30/2023 11:59 PM RESTAURANT TEAM MEMBER Anesthesia Event [facility] [address] [place] [address] Lalita Rodriguez, PROGRAM ASSISTANT 12/30/[address] [facility] Day [facility] [address] [place] [address] Raven Watson RN Surgery 12/29/2023 1:33 PM RESTAURANT TEAM MEMBER - 12/29/2023 11:59 PM RESTAURANT TEAM MEMBER Hospital Encounter [facility] [address] [place] [address] Ihsan Macias DO Discharge Disposition: Home or Self Care (Routine Discharge) 12/29/2023 1:20 PM RESTAURANT TEAM MEMBER Office Visit [facility] [address] [phone] Holger Soriano PA Billhartz, Lynn D, PA Sinus Problem (S/s x 3-4 weeks ) 12/29/2023 10:15 AM RESTAURANT TEAM MEMBER - 12/29/2023 1:32 PM RESTAURANT TEAM MEMBER Hospital Encounter [facility] [address] [place] [address] Padmaja Marie, PT Holger Soriano PA Back Pain Discharge Disposition: Home or Self Care (Routine Discharge) 12/29/2023 Travel 12/25/2023 9:56 AM CDT - 12/25/2023 11:59 PM CDT Hospital Encounter [facility] [address] [place] [address] Padmaja Marie, PT Holger Soriano PA Back Pain Discharge Disposition: Home or Self Care (Routine Discharge) 12/25/2023 Telephone [facility] [address] [address] Ihsan Macias, Surgery Questions 12/25/2023 Travel 12/24/2023 Prep for Procedure [facility] [address] [address] Ihsan Macias DO 12/23/2023 7:30 AM CDT - 12/23/2023 11:59 PM CDT Hospital Encounter [facility] [address] [place] [address] Sampson Mukherjee, PT Ihsan Macias DO Shoulder Pain Discharge Disposition: Home or Self Care (Routine Discharge) 12/23/2023 Travel 12/22/2023 4:00 PM CDT Office Visit [facility] [address] [address] Ihsan Macias DO Follow Up (Left shoulder/neck pain) 12/22/2023 2:20 PM CDT Office Visit [facility] [address] [place] [address] Holger Soriano PA Follow Up (3 month follow up); Diabetes 12/22/2023 9:54 AM CDT - 12/22/2023 11:59 PM CDT Hospital Encounter [facility] [address] [place] [address] Padmaja Marie, PT Holger Soriano PA Shoulder Pain Discharge Disposition: Home or Self Care (Routine Discharge) 12/22/2023 Telephone [facility] [address] [place] [phone] Holger Soriano PA Question; Forms 12/22/2023 Travel 12/18/2023 9:26 AM CDT - 12/18/2023 11:59 PM CDT Hospital Encounter [facility] [address] [place] [address] Padmaja Marie, PT Holger Soriano PA Shoulder Pain; Back Pain Discharge Disposition: Home or Self Care (Routine Discharge) 12/18/2023 Travel 12/11/2023 8:06 AM CDT - 12/11/2023 11:59 PM CDT Hospital Encounter [facility] [address] [place] [address] Padmaja Marie, Holger Patel PA Shoulder Pain; Back Pain Discharge Disposition: Home or Self Care (Routine Discharge) 12/11/2023 Travel 12/10/2023 1:29 PM CDT - 12/10/2023 11:59 PM CDT Hospital Encounter [facility] [address] [place] [address] Ihsan Macias, DO Discharge Disposition: Home or Self Care (Routine Discharge) 12/10/2023 Travel 12/08/2023 4:45 PM CDT - 12/08/2023 11:59 PM CDT Hospital Encounter [facility] [address] [place] [address] Padmaja Marie, Holger aPtel PA Shoulder Pain; Back Pain Discharge Disposition: Home or Self Care (Routine Discharge) 12/08/2023 Travel 12/04/2023 9:33 AM CDT - 12/04/2023 11:59 PM CDT Hospital Encounter [facility] [address] [place] [address] Padmaja Marie, PT Holger Soriano PA Shoulder Pain (Shoulder Re-eval/) Discharge Disposition: Home or Self Care (Routine Discharge) 12/04/2023 Travel 12/02/2023 3:20 PM CDT Office Visit [facility] [address] [phone] Dionne Haskins PA Sinus Problem (Stuffy head, drainage, pressure to eyes-no fever-x1 week) 12/02/2023 1:45 PM CDT - 12/02/2023 11:59 PM CDT Hospital Encounter [facility] [address] [place] [address] Holger Soriano PA Korte, Heather E, HIM TECH Shoulder Pain; Back Pain Discharge Disposition: Home or Self Care (Routine Discharge) 12/02/2023 Travel 11/28/2023 MyChart Message [facility] [address] [phone] [facility] Provider medication 11/27/2023 3:30 PM CDT - 11/27/2023 11:59 PM CDT Hospital Encounter [facility] [address] [place] [address] Padmaja Marie, PT Holger Soriano PA Shoulder Pain; Back Pain Discharge Disposition: Home or Self Care (Routine Discharge) 11/27/2023 Travel 11/24/2023 9:00 AM CDT - 11/24/2023 11:59 PM CDT Hospital Encounter [facility] [address] [place] [address] Holger Soriano PA Sackett, Kim, CAROLA Back Pain; Shoulder Pain Discharge Disposition: Home or Self Care (Routine Discharge) 11/24/2023 Travel 11/21/2023 7:45 AM CDT - 11/21/2023 11:59 PM CDT Hospital Encounter [facility] [address] [place] [address] Padmaja Marie, PT Holger Soriano PA Back Pain; Shoulder Pain Discharge Disposition: Home or Self Care (Routine Discharge) 11/21/2023 Travel 11/19/2023 Telephone [facility] [address] [place] [address] Holger Soriano PA Medication 11/17/2023 1:39 PM CDT - 11/17/2023 11:59 PM CDT Hospital Encounter [facility] [address] [place] [address] Padmaja Marie, PT Holger Soriano PA Shoulder [...] Comments Blood Pressure 155/89 02/09/2024 8:59 AM RESTAURANT TEAM MEMBER Pulse 78 02/09/2024 8:59 AM RESTAURANT TEAM MEMBER Temperature 36.7 ??C (98.1 ??F) 02/09/2024 8:59 AM CS T Respiratory Rate 22 02/09/2024 8:59 AM RESTAURANT TEAM MEMBER Oxygen Saturation 98% 02/09/2024 8:59 AM RESTAURANT TEAM MEMBER Inhaled Oxygen Concentration - - Weight 88.7 kg (195 lb 9.6 oz) 02/09/2024 8:59 A M RESTAURANT TEAM MEMBER Height 159.4 cm (5' 2.75 ) 02/09/2024 8:59 AM CS T Body Mass Index 34.93 02/09/2024 8:59 AM RESTAURANT TEAM MEMBER Plan of Treatment Upcoming Encounters Date Type Department Care Team (Late st Contact Info) Description 02/12/2024 9:00 AM RESTAURANT TEAM MEMBER Appointment [facility] [id number] [place] [address] [place] [address] [place] [address] [place] [address] [place] [address] 02/12/2024 2:00 PM RESTAURANT TEAM MEMBER Appointment [facility] [address] [place] [address] [place] [address] [place] [address] 02/16/2024 9:00 AM RESTAURANT TEAM MEMBER Appointment [facility] [address] [place] [address] [place] [address] [place] [address] [place] [address] [place] [address] 02/19/2024 8:45 AM RESTAURANT TEAM MEMBER Appointment [facility] [address] [place] [address] [place] [address] [place] [address] [place] [address] [place] [address] 02/19/2024 9:00 AM RESTAURANT TEAM MEMBER Appointment [facility] [address] [place] [address] [place] [address] [place] [address] [place] [address] [place] [address] 02/23/2024 9:00 AM RESTAURANT TEAM MEMBER Appointment [facility] [address] [place] [address] [place] [address] [place] [address] [place] [address] [place] [address] 02/24/2024 1:30 PM RESTAURANT TEAM MEMBER Appointment [facility] [address] [place] [address] Ihsan Macias, [address] [place] [address] 02/26/2024 9:00 AM RESTAURANT TEAM MEMBER Appointment [facility] [address] [place] [address] [place] [address] [place] [address] [place] [address] [place] [address] 02/26/2024 9:15 AM RESTAURANT TEAM MEMBER Appointment [facility] [address] [place] [address] [place] [address] [place] [address] [place] [address] [place] [address] 03/01/2024 9:00 AM RESTAURANT TEAM MEMBER Appointment [facility] [address] [place] [address] [place] [address] [place] [address] [place] [address] [place] [address] Lorene Branch, HIM TECH 03/02/2024 12:27 PM RESTAURANT TEAM MEMBER Hospital Encounter [facility] [address] [place] [address] [place] [address] [place] [address] 03/02/2024 12:27 PM RESTAURANT TEAM MEMBER - 03/02/2024 1:07 PM RESTAURANT TEAM MEMBER Surgery [facility] [address] [place] [address] [place] [address] [place] [address] MANIPULATION SHOULDER 03/05/2024 9:00 AM RESTAURANT TEAM MEMBER Appointment [facility] [address] [place] [address] [place] [address] [place] [address] Lorene Branch, HIM TECH 03/08/2024 9:00 AM RESTAURANT TEAM MEMBER Appointment [facility] [address] [place] [address] [place] [address] [place] [address] Lorene Branch, HIM TECH 03/11/2024 9:15 AM RESTAURANT TEAM MEMBER Appointment [facility] [address] [place] [address] [place] [address] [place] [address] Lorene Branch, HIM TECH 03/15/2024 9:00 AM RESTAURANT TEAM MEMBER Appointment [facility] [address] [place] [address] [place] [address] [place] [address] Lorene Branch, HIM TECH 03/18/2024 9:15 AM RESTAURANT TEAM MEMBER Appointment [facility] [address] [place] [address], [place] [address] [place] [address] [place] [address] Lorene Branch, HIM TECH 03/22/2024 9:00 AM RESTAURANT TEAM MEMBER Appointment [facility] [address] [place] [address] [place] [address] [place] [address] Lorene Branch, HIM TECH 03/25/2024 9:15 AM RESTAURANT TEAM MEMBER Appointment [facility] [address] [place] [address] [place] [address] [place], [place] [phone] Lorene Branch, HIM TECH 04/21/2024 11:20 AM RESTAURANT TEAM MEMBER Office Visit [facility] [address] [place] [phone] [place] [address] [place] [address] Scheduled Procedures Name Priority Associated Diagnoses Date/Ti me MANIPULATION SHOULDER Adhesive capsulitis of left shoulder 03/02/2024 12:27 PM RESTAURANT TEAM MEMBER INJECTION JOINT Adhesive capsulitis of left shoulder 03/02/2024 12:27 PM RESTAURANT TEAM MEMBER Health Maintenance Due Date Last Done Comments [...] Comments TSH W/REFLEX Routine 02/09/2024 9:50 AM RESTAURANT TEAM MEMBER Post concussion syndrome Muscle spasm Vitamin D deficiency Type 2 diabetes mellitus without complications ([facility]) VITAMIN D, 25 OH Routine 02/09/2024 9:50 AM RESTAURANT TEAM MEMBER Vitamin D deficiency MAGNESIUM STAT 02/09/2024 9:50 AM RESTAURANT TEAM MEMBER Post concussion syndrome Muscle spasm CBC W/DIFF AUTOMATED STAT 02/09/2024 9:50 AM RESTAURANT TEAM MEMBER Post concussion syndrome Muscle spasm COMPREHENSIVE METABOLIC PANEL STAT 02/09/2024 9:50 AM RESTAURANT TEAM MEMBER Muscle spasm ECG 12-LEAD Routine 12/29/2023 1:41 PM RESTAURANT TEAM MEMBER Adhesive capsulitis of left shoulder ART positive Type 2 diabetes mellitus without complication, without long-term current use of insulin ([facility]) CORONAVIRUS (COVID-19) INFLUENZA A & B ANTIGEN IA PANEL Routine 12/29/2023 Bronchitis Suspected COVID-19 virus infection COLLECT.CAPILLARY (FNGR,HEEL,EAR) Routine 12/22/2023 2:01 PM CDT Type 2 diabetes mellitus without complication, without long-term current use of insulin ([facility]) HEMOGLOBIN, GLYCOSYLATED Routine 12/22/2023 Type 2 diabetes mellitus without complication, without long-term current use of insulin ([facility]) MRI CERV SPINE WO CON Routine 12/10/2023 2:35 PM CDT Radiculopathy of cervicothoracic region Numbness and tingling in left arm from Last 3 Months Results * TSH W/REFLEX (02/09/2024 9:50 AM RESTAURANT TEAM MEMBER) TSH 0.761 0.358 - 3.74 uIU/ML 02/09/2024 11:36 AM RESTAURANT TEAM MEMBER [facility] Comment: HIGH DOSES OF BIOTIN MAY INTERFERE WITH THIS TEST RESULT. CORRELATION TO CLINICAL HISTORY AND PRESENTATION RECOMMENDED. FREE T4 NOT INDICATED 02/09/2024 9:50 AM RESTAURANT TEAM MEMBER us [facility] Final Result [facility] [address] [place] [address], [place] [phone] * (ABNORMAL) COMPREHENSIVE METABOLIC PANEL (02/09/2024 9:50 AM RESTAURANT TEAM MEMBER) GLUCOSE 90 70 - 99 MG/DL 02/09/2024 10:20 AM RESTAURANT TEAM MEMBER [facility] BUN 14 7 - 18 MG/DL 02/09/2024 10:20 AM RESTAURANT TEAM MEMBER [facility] CREATININE S/P/B 0.63 0.55 - 1.02 MG/DL 02/09/2024 10:20 AM RESTAURANT TEAM MEMBER [facility] SODIUM S/P/B 141 136 - 145 MMOL/L 02/09/2024 10:20 AM [facility] POTASSIUM S/P/B 4.1 3.5 - 5.1 MMOL/L 02/09/2024 10:20 AM [facility] CHLORIDE S/P/B 107 100 - 108 MMOL/L 02/09/2024 10:20 AM [facility] CO2 25.3 21 - 32 MMOL/L 02/09/2024 10:20 AM [facility] CALCIUM S/P/B 9.1 8.5 - 10.1 MG/DL 02/09/2024 10:20 AM [facility] BILIRUBIN TOTAL S/P/B 1.2 0.2 - 1.2 MG/DL 02/09/2024 10:20 AM [facility] TOTAL PROTEIN S/P/B 7.9 6.4 - 8.2 G/DL 02/09/2024 10:20 AM [facility] ALBUMIN S/P/B 3.8 3.4 - 5.0 G/DL 02/09/2024 10:20 AM [facility] AST 35 15 - 37 U/L 02/09/2024 10:20 AM [facility] ALT 49 14 - 55 U/L 02/09/2024 10:20 AM [facility] ALKALINE PHOSPHATASE S/P/B 86 50 - 136 U/L 02/09/2024 10:20 AM [facility] ANION GAP 8.7 5 - 15 MMOL/L 02/09/2024 10:20 AM [facility] BUN CREATININE RATIO 22.2 6 - 26 02/09/2024 10:20 AM [facility] A/G RATIO 0.9(L) 1.0 - 2.0 RATIO 02/09/2024 10:20 AM [facility] GFR ESTIMATE >90 >90 ML/MIN/1.7 3 M2 02/09/2024 10:20 AM [facility] Comment: NOTE: eGFR is not calculated for patients <18 years of age. This is an estimated GFR calculation using the new CKD EPI creatinine equation without race and so does not require a correction factor for race. This estimated GFR should not be used for calculating drug doses. 02/09/2024 9:50 AM RESTAURANT TEAM MEMBER us [facility] Final Result [facility] [address] [place] [address], [place] [phone] * (ABNORMAL) CBC W/DIFF AUTOMATED (02/09/2024 9:50 AM RESTAURANT TEAM MEMBER) WBC 7.25 4.4 - 11.0 x10'3/uL 02/09/2024 10:06 AM [facility] RBC 4.92 4.50 - 5.10 x10'6/uL 02/09/2024 10:06 AM [facility] HGB 13.9 12.3 - 15.3 G/DL 02/09/2024 10:06 AM [facility] HCT 41.3 35.9 - 44.6 % 02/09/2024 10:06 AM [facility] MCV 83.9 80.0 - 96.0 FL 02/09/2024 10:06 AM [facility] MCH 28.3 25.3 - 30.9 PG 02/09/2024 10:06 AM [facility] MCHC 33.7 31.0 - 34.1 G/DL 02/09/2024 10:06 AM [facility] RDW 13.8 12.4 - 15.1 % 02/09/2024 10:06 AM [facility] PLT 244 151 - 353 x10'3/uL 02/09/2024 10:06 AM [facility] MPV 9.1(L) 9.6 - 12.0 FL 02/09/2024 10:06 AM [facility] RBC MORPHOLOGY NORMAL 02/09/2024 10:06 AM [facility] PLT MORPH. NORMAL 02/09/2024 10:06 AM [facility] WBC MORPHOLOGY NORMAL 02/09/2024 10:06 AM [facility] LYMPHOCYTES % 24.7 15.8 - 45.0 % 02/09/2024 10:06 AM [facility] NEUTROPHILS % 59.3 42.1 - 71.9 % 02/09/2024 10:06 AM [facility] MONOCYTES % 4.8(L) 5.7 - 12.5 % 02/09/2024 10:06 AM [facility] EOSINOPHILS 10.3(H) 0.0 - 5.6 % 02/09/2024 10:06 AM [facility] BASOPHILS 0.8 0.0 - 1.3 % 02/09/2024 10:06 AM [facility] ABS. NEUTROPHILS 4.29 1.40 - 6.00 x10'3/uL 02/09/2024 10:06 AM [facility] IMMATURE GRANS % 0.1 0.0 - 0.5 % 02/09/2024 10:06 AM [facility] ABS. LYMPHOCYTES 1.79 0.80 - 4.70 x10'3/uL 02/09/2024 10:06 AM [facility] 02/09/2024 9:50 AM RESTAURANT TEAM MEMBER us [facility] Final Result Performing Organization Address [facility] de Phone Number [facility] [address] [place] [address], [place] [phone] * (ABNORMAL) VITAMIN D, 25 OH (02/09/2024 9:50 AM RESTAURANT TEAM MEMBER) VITAMIN D 25 HYDROXY S/P/B 15(L) 30 - 100 NG/ML 02/09/2024 10:43 AM RESTAURANT TEAM MEMBER [facility] Comment: ? INTERPRETATION ? DEFICIENT ??<20 ? INSUFFICIENT 20-29 ?SUFFICIENT 30-100 02/09/2024 9:50 AM RESTAURANT TEAM MEMBER us [facility] Final Result Performing Organization Address [facility] de Phone Number [facility] [address] [place] [address], [place] [phone] * MAGNESIUM (02/09/2024 9:50 AM RESTAURANT TEAM MEMBER) Pathologist [facility] MAGNESIUM 1.9 1.8 - 2.4 MG/DL 02/09/2024 10:20 AM RESTAURANT TEAM MEMBER [facility] 02/09/2024 9:50 AM RESTAURANT TEAM MEMBER us [facility] Final Result Performing Organization Address [facility] de Phone Number [facility] [address] [place] [address], [place] [phone] * ECG 12 lead (12/29/2023 1:41 PM RESTAURANT TEAM MEMBER) 12/29/2023 1:41 PM RESTAURANT TEAM MEMBER Narrative [facility] ([facility]) RAD - 12/30/2023 8:20 AM RESTAURANT TEAM MEMBER ?[facility] ? Test Date: ?2023-12-29 Pat Name: ? OUMOU DOUBET ? Department: ?? 85 ? Room: ? Gender: ? Female ? Inspector Of Dredging: ?? : ?1975 ? Requested By: IHSAN MACIAS Order Number: [id number] ? Reading MD: ?? Blue Paul ? Measurements Intervals ?Sidney ? Rate: ? 80 ? P: ?49 NE: ? 200 ?QRS: ?25 QRSD: ? 83 ? T: ?80 QT: ? 373 ? QTc: ?432 ? Interpretive Statements SINUS RHYTHM LOW QRS VOLTAGE IN PRECORDIAL LEADS ??[QRS DEFLECTION < 1.0 mV IN CHEST LEADS] No previous ECG available for comparison AURANT TEAM MEMBER Procedure Note Blue Paul MD - 12/30/2023 [facility] Test Date: 2023-12-29 Pat Name: OUMOU MIDDLETON Department: 85 Room: Gender: Female Inspector Of Dredging: : 1975 Requested By: IHSAN MACIAS Order Number: [id number] Loreta MD: Blue Paul Measurements Intervals Sidney Rate: 80 P: 49 NE: 200 QRS: 25 QRSD: 83 T: 80 QT: 373 QTc: 432 Interpretive Statements SINUS RHYTHM LOW QRS VOLTAGE IN PRECORDIAL LEADS [QRS DEFLECTION < 1.0 mV IN CHESTLEADS] No previous ECG available for comparison AURANT TEAM MEMBER us Ihsan Macias DO ECG ORDERABLES Final Result [facility] ([facility]) RAD * CORONAVIRUS (COVID-19) INFLUENZA A & B ANTIGEN IA PANEL (12/29/2023) CORONAVIRUS ANTIGEN IA NEGATIVE NEGATIVE -[address], [place] INFLUENZA A NEGATIVE NEGATIVE -[address], [place] INFLUENZA B NEGATIVE NEGATIVE -[address], [place] Internal Control: VALID VALID -[address] [facility] [place] NASAL STRUCTURE / Unknown 12/29/2023 Dionne [facility] - GENERAL ORDER DORIS Final Result -[id number] ALMA ROSAER KADY, [place] [address] [place] [address], * A1C (BACK OFFICE) (12/22/2023) Pathologist [facility] HGB A1C 5.2 % -57517 Nav[facility] EMERY [facility] [place] 12/22/2023 Hol[facility] Final Result Performing Organization Address [facility]/ZIP Co de Phone Number -[phone] ALMA ROSAER JOEYE, [place] [address] [place] [address], * MRI CERV SPINE WO CON (12/10/2023 [...] 3:45 PM Narrative 12/10/2023 3:48 PM CDT [facility] [address] [facility] [place] [address] EXAMINATION:MRI of the cervical spine without contrast [...] Procedure Note Morgan Borjas MD - 12/10/2023 [facility] [address] [facility] [place] [address] EXAMINATION:MRI of the cervical spine without contrast [...] Final Result from Last 3 Months Insurance [facility] MEDICAID Care Teams Business Dean Relationship Specialty [place] [address] [place] [address] PCP - General Physician Engineer Geophysical Laboratory Medical 09/16/23
--- OUTSIDE RECORDS SUMMARY | 2024-02-12 08:27 | XMS_ITS | Encounter Summary ---
Author Organization [facility] Address [facility] [place] [address] [place] [address] Care Team Providers Care Grocery Clerk Marking Name Role Phone Holger Soriano Primary Care Provider [phone] Reason for Visit * Reason Comments Follow Up 1 month follow up Medication Management Sinus Problem Pt c/o sinus congest ion X 3 daysPt completed antibiotics for same symptom 1 week ago Encounter Details Date Type Department Care Team (Late st Contact Info) Description 01/20/2024 10:20 AM SUEDE CLEANER Office Visit [facility] Medical Group Family & Internal Medicine [facility] [address] [place] [phone] [place]ger Soriano [place] [phone] [place] [address] Follow Up (1 month follow up); [...] Comments Blood Pressure 127/85 01/20/2024 10:11 AM SUEDE CLEANER Pulse 84 01/20/2024 10:11 AM SUEDE CLEANER Temperature 36.8 ??C (98.2 ??F) 01/20/2024 10:[address] Respiratory Rate 18 01/20/2024 10:11 AM SUEDE CLEANER Oxygen Saturation 100% 01/20/2024 10:11 AM SUEDE CLEANER Inhaled Oxygen Concentration - - Weight 88 kg (194 lb) 01/20/2024 10:11 AM SUEDE CLEANER Height 159.4 cm (5' 2.75 ) 01/20/2024 10:[address] Body Mass Index 34.64 01/20/2024 10:11 AM SUEDE CLEANER documented in this encounter Progress Notes * [...] previous PCP. I would recommend she see ELECTROLESS PLATER for further evaluation and treatment of this. She is also already on Cymbalta so an SSRI most likely would not help with her current symptoms. Continue hormonal medication and follow-up with ELECTROLESS PLATER. Patient has not had a normal menses [...] Past Medical History: Diagnosis Date ADHD Asthma ([facility]) COPD (chronic obstructive pulmonary disease) ([facility]) DINESH (obstructive sleep apnea) Past Surgical History: [...] No ref. provider found PCP: TYLER WEAVER E CLEANER E CLEANER documented in this encounter Plan of Treatment Upcoming Encounters Date Type Department Care Team (Late st Contact Info) Description 02/12/2024 9:00 AM SUEDE CLEANER Appointment [facility] [address] [place] [address] [place] [address] [place] [address] [place] [address] [place] [address] 02/12/2024 2:00 PM SUEDE CLEANER Appointment [facility] MRI [address] [place] [address] [place] [address] [place] [address] 02/16/2024 9:00 AM SUEDE CLEANER Appointment [facility] [address] [place] [address] [place] [address] [place] [address] [place] [address] [place] [address] 02/19/2024 8:45 AM SUEDE CLEANER Appointment [facility] [address] [place] [address] [place] [address] [place] [address] [place] [address] [place], [place] [id number] 02/19/2024 9:00 AM SUEDE CLEANER Appointment [facility] [address] [place] [address] [place] [address] [place] [address] [place] [address] [place] [address] 02/23/2024 9:00 AM SUEDE CLEANER Appointment [facility] [address] [place] [address] [place] [address] [place] [address] [place] [address] [place] [address] 02/24/2024 1:30 PM SUEDE CLEANER Appointment [facility] [address] [place] [address] Ihsan Logan [place] [address] [place] [address] 02/26/2024 9:00 AM SUEDE CLEANER Appointment [facility] [address] [place] [address] [place] [address] [place] [address] [place] [address] [place] [address] 02/26/2024 9:15 AM SUEDE CLEANER Appointment [facility] [address] [place] [address] [place] [address] [place] [address] [place] [address] [place] [address] 03/01/2024 9:00 AM SUEDE CLEANER Appointment [facility]hab [address] [place] [address] [place] [address] [place] [address] [place] [address] [place] [address] Lorene Branch, CAROLA 03/02/2024 12:27 PM SUEDE CLEANER Hospital Encounter [address] [address] [place] [address] [place] [address] 03/02/2024 12:27 PM SUEDE CLEANER - 03/02/2024 1:07 PM [facility] Surgery [facility] Surgery [address] [place] [address] [place] [address] [place] [address] MANIPULATION SHOULDER 03/05/2024 9:00 AM SUEDE CLEANER Appointment [facility] [address] [place] [address] [place] [address] [place] [address] Lorene Branch, ACUTE CARE NURSE 03/08/2024 9:00 AM SUEDE CLEANER Appointment [facility] [address] [place] [address] [place] [address] [place] [address] Lorene Branch, ACUTE CARE NURSE 03/11/2024 9:15 AM SUEDE CLEANER Appointment [facility] [address] [place] [address] [place] [address] [place] [address] Lorene Branch, ACUTE CARE NURSE 03/15/2024 9:00 AM SUEDE CLEANER Appointment [facility] [address] [place] [address] [place] [address] [place] [address] Lorene Branch, ACUTE CARE NURSE 03/18/2024 9:15 AM SUEDE CLEANER Appointment [facility] [address] [place] [address] [place] [address] [place] [address] Lorene Branch, ACUTE CARE NURSE 03/22/2024 9:00 AM SUEDE CLEANER Appointment [facility] [address] [place] [address] [place] [address] [place] [address] Lorene Branch, ACUTE CARE NURSE 03/25/2024 9:15 AM SUEDE CLEANER Appointment [facility] [address] [place] [address] [place] [address] [place] [address] Lorene Branch, ACUTE CARE NURSE 04/21/2024 11:20 AM SUEDE CLEANER Office Visit [facility] Medical Group Family & Internal Medicine [facility] [address] [place] [phone] [place] [address] [place] [address] Scheduled Procedures Name Priority Associated Diagnoses Date/Ti me MANIPULATION SHOULDER Adhesive capsulitis of left shoulder 03/02/2024 12:27 PM SUEDE CLEANER INJECTION JOINT Adhesive capsulitis of left shoulder 03/02/2024 12:27 PM SUEDE CLEANER documented as of this encounter Visit [...] documented as of this encounter Care Teams Grocery Clerk Marking Relationship Specialty [place] [address] [place] [address] PCP - General Physician Transitional Nurse Medical 09/16/23 documented as of this encounter
--- OUTSIDE RECORDS SUMMARY | 2024-02-12 08:27 | XMS_ITS | Encounter Summary ---
Author Organization [facility] Address [facility] [place], [place] [address] [place] [address] Care Team Providers Care Ivory Carver Name Role Phone Holger Soriano Primary Care Provider [phone] Reason for Visit * Reason Comments Back Pain Shoulder Pain * Physical Medicine (Urgent) - Authorized Specialty Diagnoses / Procedures Referred By Contac t Referred To Contact PHYSICAL THERAPY Diagnoses Left shoulder pain Low back pain Procedures OFFICE/OUTPATIENT NEW LOW MDM 30-44 MINUTES OFFICE/OUTPT VISIT,NEW,LEVL IV OFFICE/OUTPT VISIT,NEW,LEVL V OFFICE/OUTPT VISIT,EST,LEVL III OFFICE/OUTPT VISIT,EST,LEVL IV OFFICE/OUTPT VISIT,EST[place] [address] [place] [address] Phone: tel: fax: [facility] [address] [place] [address] Phone: tel: fax: Referral ID Status Reason Start Date Expiration Date Visits Requested Visits Authorized [id number] Authorized Physical Therapy 10/13/2023 11/11/2024 99 99 Encounter Details Date Type Department Care Team (Latest Contact Info) Description 01/12/2024 1:00 PM LOOM CONTROL CHAIN BUILDER - 01/12/2024 11:59 PM LOOM CONTROL CHAIN BUILDER Hospital Encounter [facility] [address] [place] [address] [place] [address] [place], [place] [phone] [place] [address] [place], [place] [phone] Back Pain; Shoulder Pain Discharge Disposition: Home [...] 3:20 PM Actions taken: Clinical Note Signed CONTROL CHAIN BUILDER * Sampson Mukherjee, PT - 01/12/2024 1:00 PM CST Physical [...] exacerbated early Oct. 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] 58 Timed Code Treatment Minutes : 58 CONTROL CHAIN BUILDER CONTROL CHAIN BUILDER documented in this encounter Plan of Treatment Upcoming Encounters Date Type Department Care Team (Late st Contact Info) Description 02/12/2024 9:00 AM LOOM CONTROL CHAIN BUILDER Appointment [facility] [address] [place], [place] [phone] [place] [address] [place], [place] [address] [place] [address] [place] [address] 02/12/2024 2:00 PM LOOM CONTROL CHAIN BUILDER Appointment [address] [address] [place] [address] [place] [address] 02/16/2024 9:00 AM LOOM CONTROL CHAIN BUILDER Appointment [facility] [address] [place] [address] [place] [address] [place] [address] [place] [address] [place] [address] 02/19/2024 8:45 AM LOOM CONTROL CHAIN BUILDER Appointment [facility] [address] [place] [address] [place] [address] [place] [address] [place] [address] [place] [address] 02/19/2024 9:00 AM LOOM CONTROL CHAIN BUILDER Appointment [facility] [address] [place] [address] [place] [address] [place] [address] [place] [address] [place] [address] 02/23/2024 9:00 AM LOOM CONTROL CHAIN BUILDER Appointment [facility] [address] [place] [address] [place] [address] [place] [address] [place] [address] [place] [address] 02/24/2024 1:30 PM LOOM CONTROL CHAIN BUILDER Appointment [address] [address] Ihsan Logan [address] [place] [address] 02/26/2024 9:00 AM LOOM CONTROL CHAIN BUILDER Appointment [facility] [address] [place] [address] [place] [address] [place] [address] [place] [address] [place] [address] 02/26/2024 9:15 AM LOOM CONTROL CHAIN BUILDER Appointment [facility] [address] [place] [address] [place] [address] [place] [address] [place] [address] [place] [address] 03/01/2024 9:00 AM LOOM CONTROL CHAIN BUILDER Appointment [facility] [address] [place] [address] [place] [address] [place] [address] [place] [address] [place] [address] Lorene Branch, FOREST BIOMETRICS PROFESSOR 03/02/2024 12:27 PM LOOM CONTROL CHAIN BUILDER Hospital Encounter [facility] Surgery [address] [place] [address] [place] [address] [place] [address] 03/02/2024 12:27 PM LOOM CONTROL CHAIN BUILDER - 03/02/2024 1:07 PM LOOM CONTROL CHAIN BUILDER Surgery [facility] [address] [place] [address] [place] [address] [place] [address] MANIPULATION SHOULDER 03/05/2024 9:00 AM LOOM CONTROL CHAIN BUILDER Appointment [facility] [address] [place] [address] [place] [address] [place] [address] Lorene Branch, FOREST BIOMETRICS PROFESSOR 03/08/2024 9:00 AM LOOM CONTROL CHAIN BUILDER Appointment [facility] [address] [place] [address] [place] [address] [place] [address] Lorene Branch, FOREST BIOMETRICS PROFESSOR 03/11/2024 9:15 AM LOOM CONTROL CHAIN BUILDER Appointment [facility] [address] [place] [address] [place] [address] [place] [address] Lorene Branch, FOREST BIOMETRICS PROFESSOR 03/15/2024 9:00 AM LOOM CONTROL CHAIN BUILDER Appointment [facility] [address] [place] [address] [place] [address] [place] [address] Lorene Branch, FOREST BIOMETRICS PROFESSOR 03/18/2024 9:15 AM LOOM CONTROL CHAIN BUILDER Appointment [facility] [address] [place] [address] [place] [address] [place] [address] Lorene Branch, FOREST BIOMETRICS PROFESSOR 03/22/2024 9:00 AM LOOM CONTROL CHAIN BUILDER Appointment [facility] [address] [place] [address] [place] [address] [place] [address] Lorene Branch, FOREST BIOMETRICS PROFESSOR 03/25/2024 9:15 AM LOOM CONTROL CHAIN BUILDER Appointment [facility] [address] [place] [address] [place] [address] [place] [address] Lorene Branch, FOREST BIOMETRICS PROFESSOR 04/21/2024 11:20 AM LOOM CONTROL CHAIN BUILDER Office Visit [facility] Medical Group Family & Internal Medicine [facility] [address] [place] [address] [place] [address] [place] [address] Scheduled Procedures Name Priority Associated Diagnoses Date/Ti me MANIPULATION SHOULDER Adhesive capsulitis of left shoulder 03/02/2024 12:27 PM LOOM CONTROL CHAIN BUILDER INJECTION JOINT Adhesive capsulitis of left shoulder 03/02/2024 12:27 PM LOOM CONTROL CHAIN BUILDER documented as of this encounter Visit Diagnoses Diagnosis Frozen shoulder- Primary Adhesive capsulitis of shoulder Left shoulder pain- Primary Pain in joint, shoulder region Adhesive capsulitis of left shoulder Adhesive capsulitis of shoulder documented in this encounter Additional Health Concerns Assessment Noted Time PHQ-9 Depression Total Score: 024 3:24 PM CDT documented as of this encounter Care Teams Ivory Carver Relationship Specialty [place] [address] [place] [address] PCP - General Physician Scientific Photographer Medical 09/16/23 documented as of this encounter
--- OUTSIDE RECORDS SUMMARY | 2024-02-12 08:27 | XMS_ITS | Encounter Summary ---
Author Organization [facility] Address [facility] [place] [address] [place] [address] Care Team Providers Care Back Tender Paper Machine Name Role Phone Holger Soriano Primary Care Provider Reason for Visit * Reason Onset Date Comments Question 12/31/2023 Encounter Details Date Type Department Care Team (Late st Contact Info) Description 12/31/[address] [facility] Orthopedic Surgery [facility] [address] [address] [facility] [address] [place] [address] [place] [address] [place], [place] [phone] Question Social History Tobacco Use Types Packs/Day [...] she has any further questions or concerns. GER BUSINESS CONTINUITY * Anali Cormier RN - 01/01/2024 10:11 AM CST Patient had to reschedule her left shoulder manipulation surgery until 03/02/2024. Asking if she should continue PT until her surgery? Please advise. GER BUSINESS CONTINUITY * Kimberly Langley - 12/31/2023 4:20 PM CST Patient called and wants to know if doctor wants her to continue PT, please call her at [phone] GER BUSINESS CONTINUITY documented in this encounter Plan of Treatment Upcoming Encounters Date Type Department Care Team (Late st Contact Info) Description 02/12/2024 9:00 AM MANAGER BUSINESS CONTINUITY Appointment [facility] [address] [place] [address] [place] [address] [place] [address] [place] [address] [place] [address] 02/12/2024 2:00 PM MANAGER BUSINESS CONTINUITY Appointment [facility] MRI [address] [place] [address] [place] [address] [place] [address] 02/16/2024 9:00 AM MANAGER BUSINESS CONTINUITY Appointment [facility] [address] [place] [address] [place] [address] [place] [address] [place] [address] [place] [address] 02/19/2024 8:45 AM MANAGER BUSINESS CONTINUITY Appointment [facility] [address] [place] [address] [place] [address] [place] [address] [place] [address] [place] [address] 02/19/2024 9:00 AM MANAGER BUSINESS CONTINUITY Appointment [facility] [address] [place] [address] [place] [address] [place] [address] [place] [address] [place] [address] 02/23/2024 9:00 AM MANAGER BUSINESS CONTINUITY Appointment [facility] [address] [place] [address] [place] [address] [place] [address] [place] [address] [place] [address] 02/24/2024 1:30 PM MANAGER BUSINESS CONTINUITY Appointment [facility] [address] [place] [address] Ihsan LoganDO [address] [place] [address] 02/26/2024 9:00 AM MANAGER BUSINESS CONTINUITY Appointment [facility] [address] [place] [address] [place] [address] [place] [address] [place] [address] [place] [address] 02/26/2024 9:15 AM MANAGER BUSINESS CONTINUITY Appointment [facility] [address] [place] [address] [place] [address] [place] [address] [place] [address] [place] [address] 03/01/2024 9:00 AM MANAGER BUSINESS CONTINUITY Appointment [facility] [address] [place] [address] [place] [address] [place] [address] [place] [address] [place] [address] Lorene Branch, SCHOOL COUNSELLOR 03/02/2024 12:27 PM MANAGER BUSINESS CONTINUITY Hospital Encounter [facility] [address] [place] [address] [place] [address] [place] [address] 03/02/2024 12:27 PM MANAGER BUSINESS CONTINUITY - 03/02/2024 1:07 PM MANAGER BUSINESS CONTINUITY Surgery [facility] [address] [place] [address] [place] [address] [place] [address] MANIPULATION SHOULDER 03/05/2024 9:00 AM MANAGER BUSINESS CONTINUITY Appointment [facility] [address] [place] [address] [place] [address] [place] [address] Lorene Branch, SCHOOL COUNSELLOR 03/08/2024 9:00 AM MANAGER BUSINESS CONTINUITY Appointment [facility] [address] [place] [address] [place] [address] [place] [address] Lorene Branch, SCHOOL COUNSELLOR 03/11/2024 9:15 AM MANAGER BUSINESS CONTINUITY Appointment [facility] [address] [place] [address] [place] [address] [place] [address] Lorene Branch, SCHOOL COUNSELLOR 03/15/2024 9:00 AM MANAGER BUSINESS CONTINUITY Appointment [facility] [address] [place] [address] [place] [address] [place] [address] Lorene Branch, SCHOOL COUNSELLOR 03/18/2024 9:15 AM MANAGER BUSINESS CONTINUITY Appointment [facility] [address] [place] [address] [place] [address] [place] [address] Lorene Branch, SCHOOL COUNSELLOR 03/22/2024 9:00 AM MANAGER BUSINESS CONTINUITY Appointment [facility] [address] [place] [address] [place] [address] [place] [address] Lorene Branch, SCHOOL COUNSELLOR 03/25/2024 9:15 AM MANAGER BUSINESS CONTINUITY [facility]ment [facility] [address] [place] [address] [place] [address] [place] [address] Lorene Branch, SCHOOL COUNSELLOR 04/21/2024 11:20 AM MANAGER BUSINESS CONTINUITY Office Visit [facility] Family & Internal Medicine [address] [address] [place] [address] [place], [place] [phone] Scheduled Procedures Name Priority Associated Diagnoses Date/Ti me MANIPULATION SHOULDER Adhesive capsulitis of left shoulder 03/02/2024 12:27 PM MANAGER BUSINESS CONTINUITY INJECTION JOINT Adhesive capsulitis of left shoulder 03/02/2024 12:27 PM MANAGER BUSINESS CONTINUITY documented as of this encounter Visit Diagnoses Not on filedocumented in this encounter Additional Health Concerns Assessment Noted Time PHQ-9 Depression Total Score: 24 024 3:24 PM CDT documented as of this encounter Care Teams Back Tender Paper Machine Relationship Specialty [place] [address] [place] [address] PCP - General Physician Tableau Developer Medical 09/16/23 documented as of this encounter
--- OUTSIDE RECORDS SUMMARY | 2024-02-12 08:27 | XMS_ITS | Encounter Summary ---
Author Organization [facility] Address [address] [place] [address] Care Team Providers Care Shoes Salesperson Name Role Phone Unavailable Primary Care Provider Unavailabl e Reason for Visit * Reason Comments Fall Pt fell yesterday mo rning at work and is having right hip, left shoulder and low back pain. Encounter Details Date Type Department Care Team (Late st Contact Info) Description 03/17/2010 12:40 AM EMBEDDED SOFTWARE DEVELOPMENT ENGINEER - 03/17/2010 3:56 AM EMBEDDED SOFTWARE DEVELOPMENT ENGINEER Emergency ER at [address] [address] Florentin Galvez MD [address] [place] [id number] Multiple joint pain; Fall from other [...] Comments Blood Pressure 136/85 03/17/2010 12:47 AM EMBEDDED SOFTWARE DEVELOPMENT ENGINEER Pulse 84 03/17/2010 12:47 AM EMBEDDED SOFTWARE DEVELOPMENT ENGINEER Temperature 36.4 ??C (97.6 ??F) 03/17/2010 12:[address] Respiratory Rate 20 03/17/2010 12:47 AM EMBEDDED SOFTWARE DEVELOPMENT ENGINEER Oxygen Saturation 100% 03/17/2010 12:47 AM EMBEDDED SOFTWARE DEVELOPMENT ENGINEER Inhaled Oxygen Concentration - - Weight 111.1 kg (245 lb) 03/17/2010 12:47 AM EMBEDDED SOFTWARE DEVELOPMENT ENGINEER Height 157.5 cm (5' 2 ) 03/17/2010 12:47 AM EMBEDDED SOFTWARE DEVELOPMENT ENGINEER Body Mass Index 44.81 03/17/2010 12:47 AM EMBEDDED SOFTWARE DEVELOPMENT ENGINEER documented in this encounter Discharge Instructions * Discharge Instructions* Jaja Faye Rubin Girard-, EMBEDDED SYSTEMS SOFTWARE ENGINEER - 03/17/2010 3:02 AM EMBEDDED SOFTWARE DEVELOPMENT ENGINEER Myalgia, Muscle Pain Myalgia is the medical [...] happening. If this has not been a buttermaker problem, your caregiver may want to watch for a while to see what will happen. If it has been skilled nursing, they may want to do additional testing. [...] ice and your skin. ?? Only take [id number] or prescription medicines for pain, discomfort, or [...] Document Re-Released: 05/09/2009 ExitCare?? Patient Information ??2010 [place]. Musculo-Skeletal Pain You have muscle and andrea [...] cause. HOME CARE INSTRUCTIONS ?? Only take [id number]-[id number] or prescription medicines for pain, discomfort, or [...] Document Re-Released: 01/23/2009 ExitCare?? Patient Information ??2009 [place]. DDED SOFTWARE DEVELOPMENT ENGINEER * Discharge Instructions* Document, Scanned - 03/17/2010 8:33 AM EMBEDDED SOFTWARE DEVELOPMENT ENGINEER documented in this encounter Medications at Time [...] Patient returned from radiology at this time. DDED SOFTWARE DEVELOPMENT ENGINEER * Liam Laird - 03/17/2010 2:08 AM CST HCG performed in order for xray to run procedures. DDED SOFTWARE DEVELOPMENT ENGINEER * Liam Laird - 03/17/2010 2:08 AM CST HCG test negative. DDED SOFTWARE DEVELOPMENT ENGINEER * Pamella Nieto RN - 03/17/2010 1:55 AM CST Guardian returned call with 20 minute ETA. DDED SOFTWARE DEVELOPMENT ENGINEER * Pamella Nieto RN - 03/17/2010 1:47 AM CST Guardian notified at this time. DDED SOFTWARE DEVELOPMENT ENGINEER * Jaja Faye-, LEONILA - 03/17/2010 1:04 AM CST Images from the original note were not included. 03/17/2010 1:04 AM Oumou Middleton [id number] [facility] EMERGENCY DEPARTMENT History Chief Complaint Patient presents [...] (1.575 m) Wt 245 lb (111.131 kg) [id number] Physical Exam Constitutional: She is oriented to [...] Fall from other slipping, tripping, or stumbling DDED SOFTWARE DEVELOPMENT ENGINEER documented in this encounter Miscellaneous Notes * Miscellaneous Scans - Document, Scanned - 03/17/2010 8:38 AM EMBEDDED SOFTWARE DEVELOPMENT ENGINEER documented in this encounter Plan of Treatment Not on file documented as of this encounter Procedures Procedure Name Priority Date/Time Associated Diagnosis Comments XR LUMBAR SPINE 2 OR 3VW STAT 03/17/2010 2:32 AM EMBEDDED SOFTWARE DEVELOPMENT ENGINEER XR SHOULDER LEFT 2VW OR MORE STAT 03/17/2010 2:31 AM EMBEDDED SOFTWARE DEVELOPMENT ENGINEER XR HIP RIGHT 2VW OR MORE STAT 03/17/2010 2:30 AM EMBEDDED SOFTWARE DEVELOPMENT ENGINEER HCG URINE QUALITATIVE - POINT OF CARE STAT 03/17/2010 2:06 AM EMBEDDED SOFTWARE DEVELOPMENT ENGINEER documented in this encounter Results * XR LUMBAR SPINE 2 OR 3 VW (03/17/2010 2:32 AM EMBEDDED SOFTWARE DEVELOPMENT ENGINEER) Anatomical Region Laterality Modality Spine Radiographic Evelyn ging 03/17/2010 9:01 AM EMBEDDED SOFTWARE DEVELOPMENT ENGINEER Impressions 03/17/2010 10:00 AM EMBEDDED SOFTWARE DEVELOPMENT ENGINEER No acute osseous abnormality. Narrative 03/17/2010 10:00 AM EMBEDDED SOFTWARE DEVELOPMENT ENGINEER LUMBOSACRAL SPINE 2 VIEWS INDICATION: ??Low back [...] IMPRESSION No acute osseous abnormality. Jaja Christopher REAL ESTATE LEGAL ASSISTANT-COPYMAN DIAGNOSTIC IMAGING ORDERABLES * XR SHOULDER 2+ VW LEFT (03/17/2010 2:31 AM EMBEDDED SOFTWARE DEVELOPMENT ENGINEER) Anatomical Region Laterality Modality Upper Extremity Radiographic Evelyn ging 03/17/2010 9:00 AM EMBEDDED SOFTWARE DEVELOPMENT ENGINEER Impressions 03/17/2010 10:00 AM EMBEDDED SOFTWARE DEVELOPMENT ENGINEER No acute osseous abnormality. Narrative 03/17/2010 10:00 AM EMBEDDED SOFTWARE DEVELOPMENT ENGINEER LEFT SHOULDER 2 VIEWS INDICATION: ??Left shoulder [...] No acute osseous abnormality. So Samuel [facility] ORDERABLES * XR HIP 2+ VW RIGHT (03/17/2010 2:30 AM EMBEDDED SOFTWARE DEVELOPMENT ENGINEER) Anatomical Region Laterality Modality Pelvis, Lower Extremity Radiogra phic Imaging 03/17/2010 9:01 AM EMBEDDED SOFTWARE DEVELOPMENT ENGINEER Impressions 03/17/2010 10:00 AM EMBEDDED SOFTWARE DEVELOPMENT ENGINEER ??No acute osseous abnormality. Narrative 03/17/2010 10:00 AM EMBEDDED SOFTWARE DEVELOPMENT ENGINEER RIGHT HIP 2 VIEWS INDICATION: ??Right hip [...] - POINT OF CARE (03/17/2010 2:06 AM EMBEDDED SOFTWARE DEVELOPMENT ENGINEER) HCG Qual Urine neg Negative [facility] POCT TESTING QC Verified yes Yes [facility] POC T TESTING Urine specimen (specimen) URINE / Unknown 03/17/2010 2:06 AM EMBEDDED SOFTWARE DEVELOPMENT ENGINEER So Samuel Christopher [facility] LAB - POIN T OF CARE ORDERABLES [facility] POCT TESTING [address] [place] [address] documented in this encounter Visit Diagnoses Diagnosis [...] at 0200 $ Given 03/17/2010 2:05 AM EMBEDDED SOFTWARE DEVELOPMENT ENGINEER 10 mg ketorolac (TORADOL) 30 mg/ml injection ADS Med 1 dose, Starting on 03/17/10 at 0200, Until 03/17/10 at 0205, PAMELLA NIETO: Cabinet Override . WASTE DISPOSAL INSTRUCTIONS: Black Bin Disposal required. . ketorolac (TORADOL) injection 60 mg 60 mg, Intramuscular, ONCE, 1 dose, On 03/17/10 at 0200, . WASTE DISPOSAL INSTRUCTIONS: Black Bin Disposal required. . $ Given 03/17/2010 2:05 AM EMBEDDED SOFTWARE DEVELOPMENT ENGINEER 60 mg documented in this encounter Active and Recently Administered Medications Times are shown in EMBEDDED SOFTWARE DEVELOPMENT ENGINEER. Scheduled Medication Order 03/15/2010 03/16/2010 03/17/2010 cyclobenzaprine [...]
--- OUTSIDE RECORDS SUMMARY | 2024-02-12 08:27 | XMS_ITS | Encounter Summary ---
Author Organization [facility] Address Replaced by [facility] [place] [address] [place] [address] Care Team Providers Care Car Mechanic Name Role Phone Holger Soriano Primary Care Provider [phone] Reason for Visit * Reason Onset Date Comments Surgery 12/30/2023 Encounter Details Date Type Department Care Team (Late st Contact Info) Description 12/30/2023 Telephone [facility] [address] [place] [address] Raven Watson returning officer Social History Tobacco Use Types Packs/Day Years [...] to push back her surgery from 03/02/2024. [facility] surgery team and Dr. Logan notified. R TIER * Anali Cormier RN - 12/30/2023 2:54 PM CST Attempted to contact patient. No answer. Left a voice message asking the patient to return my call regarding her upcoming surgery and recent URI diagnosis. R TIER documented in this encounter Plan of Treatment Upcoming Encounters Date Type Department Care Team (Late st Contact Info) Description 02/12/2024 9:00 AM UPPER TIER Appointment [facility] [address] [place] [address] [place] [address] [place] [address] [place] [address] [place] [address] 02/12/2024 2:00 PM UPPER TIER Appointment [facility] [place] [address] [place] [address] [place] [address] [place] [address] 02/16/2024 9:00 AM UPPER TIER Appointment [facility] [address] [place] [address] [place] [address] [place] [address] [place] [address] [place] [address] 02/19/2024 8:45 AM UPPER TIER Appointment [facility] [address] [place] [address] [place] [address] [place] [address] [place] [address] [place] [address] 02/19/2024 9:00 AM UPPER TIER Appointment [facility] [address] [place] [address] [place] [address] [place] [address] [place] [address] [place] [address] 02/23/2024 9:00 AM UPPER TIER Appointment [facility] [address] [place] [address] [place] [address] [place] [address] [place] [address] [place] [address] 02/24/2024 1:30 PM UPPER TIER Appointment [facility] [place] [address] [place] [address] [place] [address] [place] [address] 02/26/2024 9:00 AM UPPER TIER Appointment [facility] [address] [place] [address] [place] [address] [place] [address] [place] [address] [place] [address] 02/26/2024 9:15 AM UPPER TIER Appointment [facility] [address] [place] [address] [place] [address] [place] [address] [place] [address] [place] [address] 03/01/2024 9:00 AM UPPER TIER Appointment [facility] [address] [place] [address] [place] [address] [place] [address] [place] [address] [place] [address] Lorene Branch PTA 03/02/2024 12:27 PM UPPER TIER Hospital Encounter [facility] [address] [place] [address] Ihsan Logan, [address] [place] [address] 03/02/2024 12:27 PM UPPER TIER - 03/02/2024 1:07 PM UPPER TIER Surgery [facility] [address] [place] [address] Logan IhsanDO [address] [place] [address] MANIPULATION SHOULDER 03/05/2024 9:00 AM UPPER TIER Appointment [facility] [address] [place] [address] [place] [address] [place] [address] Lorene Branch, AREA FIELD WORKER 03/08/2024 9:00 AM UPPER TIER Appointment [facility] [address] [place] [address] [place] [address] [place] [address] Lorene Branch, AREA FIELD WORKER 03/11/2024 9:15 AM UPPER TIER Appointment [facility] [address] [place] [address] [place] [address] [place] [address] Lorene Branch, AREA FIELD WORKER 03/15/2024 9:00 AM UPPER TIER Appointment [facility] [address] [place] [address] [place] [address] [place] [address] Lorene Branch, AREA FIELD WORKER 03/18/2024 9:15 AM UPPER TIER Appointment [facility] [address] [place] [address] [place] [address] [place] [address] Lorene Branch, AREA FIELD WORKER 03/22/2024 9:00 AM UPPER TIER Appointment [facility] [address] [place] [address] [place] [address] [place] [address] Lorene Branch, AREA FIELD WORKER 03/25/2024 9:15 AM UPPER TIER Appointment [facility] [address] [place] [address] [place] [address] [place] [address] Lorene Branch, AREA FIELD WORKER 04/21/2024 11:20 AM UPPER TIER Office Visit [facility] Family & Internal Medicine [address] [phone] [place] [address] [place], [place] [id number] Scheduled Procedures Name Priority Associated Diagnoses Date/Ti me MANIPULATION SHOULDER Adhesive capsulitis of left shoulder 03/02/2024 12:27 PM UPPER TIER INJECTION JOINT Adhesive capsulitis of left shoulder 03/02/2024 12:27 PM UPPER TIER documented as of this encounter Visit Diagnoses Not on filedocumented in this encounter Additional Health Concerns Assessment Noted Time PHQ-9 Depression Total Score: 24 024 3:24 PM CDT documented as of this encounter Care Teams Car Mechanic Relationship Specialty Start Date End Date Holger Soriano PA [address] [place] [id number] PCP - General Physician [facility] 09/16/23 documented as of this encounter
--- OUTSIDE RECORDS SUMMARY | 2024-02-12 08:27 | XMS_ITS | Encounter Summary ---
Author Organization [facility] Address [facility]. [place], [place] [id number] [place] [address] Care Team Providers Care Ski Edge Painter Name Role Phone Holger Soriano Primary Care Provider [phone] Encounter Details Date Type Department Care Team [...] st Contact Info) Description 02/12/2024 9:00 AM WAFER BATTER MIXER Appointment [facility] [address] [place], [place] [id number] [place] [address] [place] [id number] [place] [address] [place] [address] 02/12/2024 2:00 PM WAFER BATTER MIXER Appointment [facility] MRI [address] [place] [address] [place] [address] [place] [address] 02/16/2024 9:00 AM WAFER BATTER MIXER Appointment [facility] [address] [place] [address] [place] [address] [place] [address] [place] [address] [place] [address] 02/19/2024 8:45 AM WAFER BATTER MIXER Appointment [facility] [address] [place] [address] [place] [address] [place] [address] [place] [address] [place] [address] 02/19/2024 9:00 AM WAFER BATTER MIXER Appointment [facility] [address] [place] [address] [place] [address] [place] [address] [place] [address] [place] [address] 02/23/2024 9:00 AM WAFER BATTER MIXER Appointment [facility] [address] [place] [address] [place] [address] [place] [address] [place] [address] [place] [address] 02/24/2024 1:30 PM WAFER BATTER MIXER Appointment [facility] [address] [place] [address] [place] [address] [place] [address] 02/26/2024 9:00 AM WAFER BATTER MIXER Appointment [facility] [address] [place] [address] [place] [address] [place] [address] [place] [address] [place] [address] 02/26/2024 9:15 AM WAFER BATTER MIXER Appointment [facility] [address] [place] [address] [place] [address] [place] [address] [place] [address] [place] [address] 03/01/2024 9:00 AM WAFER BATTER MIXER Appointment [facility] [address] [place] [address] [place] [address] [place] [address] [place] [address] [place] [address] Lorene Branch, CURING OVEN TENDER 03/02/2024 12:27 PM WAFER BATTER MIXER Hospital Encounter [facility] [address] [place] [address] [place] [address] [place] [address] 03/02/2024 12:27 PM WAFER BATTER MIXER - 03/02/2024 1:07 PM WAFER BATTER MIXER Surgery [facility] Surgery [address] [place] [address] [place] [address] [place] [address] MANIPULATION SHOULDER 03/05/2024 9:00 AM WAFER BATTER MIXER Appointment [facility] [address] [place] [address] [place] [address] [place] [address] Lorene Branch, CURING OVEN TENDER 03/08/2024 9:00 AM WAFER BATTER MIXER Appointment [facility] [address] [place] [address] [place] [address] [place] [address] Lorene Branch, CURING OVEN TENDER 03/11/2024 9:15 AM WAFER BATTER MIXER Appointment [facility] [address] [place] [address] [place] [address] [place] [address] Lorene Branch, CURING OVEN TENDER 03/15/2024 9:00 AM WAFER BATTER MIXER Appointment [facility] [address] [place] [address] [place] [address] [place] [address] Lorene Branch, CURING OVEN TENDER 03/18/2024 9:15 AM WAFER BATTER MIXER Appointment [facility] [address] [place] [address] [place] [address] [place] [address] Lorene Branch, CURING OVEN TENDER 03/22/2024 9:00 AM WAFER BATTER MIXER Appointment [facility] [address] [place] [address] [place] [address] [place] [address] Lorene Branch, CURING OVEN TENDER 03/25/2024 9:15 AM WAFER BATTER MIXER Appointment [facility] [address] [place] [address] [place] [address] [place] [address] Lorene Branch, CURING OVEN TENDER 04/21/2024 11:20 AM WAFER BATTER MIXER Office Visit [facility] Family & Internal Medicine - [address] [phone] [place] [address] [place] [address] Scheduled Procedures Name Priority Associated Diagnoses Date/Ti me MANIPULATION SHOULDER Adhesive capsulitis of left shoulder 03/02/2024 12:27 PM WAFER BATTER MIXER INJECTION JOINT Adhesive capsulitis of left shoulder 03/02/2024 12:27 PM WAFER BATTER MIXER documented as of this encounter Visit Diagnoses Not on filedocumented in this encounter Additional Health Concerns Assessment Noted Time PHQ-9 Depression Total Score: 024 3:24 PM CDT documented as of this encounter Care Teams Ski Edge Painter Relationship Specialty [place] [address] [place] [address] PCP - General Physician Recreational Programs Director Medical 09/16/23 documented as of this encounter
--- OUTSIDE RECORDS SUMMARY | 2024-02-12 08:27 | XMS_ITS | Encounter Summary ---
Author Organization [facility] Address [facility] access [facility] [place], [place] [address] [place] [address] Care Team Providers Care Probate Lawyer Name Role Phone Holger Soriano Primary Care Provider [phone] Reason for Visit * Reason Comments Shoulder Pain * Physical Medicine (Urgent) - Authorized Specialty Diagnoses / Procedures Referred By Contac t Referred To Contact PHYSICAL THERAPY Diagnoses Left shoulder pain Low back pain Procedures OFFICE/OUTPATIENT NEW LOW MDM 30-44 MINUTES OFFICE/OUTPT VISIT,NEW,LEVL IV OFFICE/OUTPT VISIT,NEW,LEVL V OFFICE/OUTPT VISIT,EST,LEVL III OFFICE/OUTPT VISIT,EST,LEVL IV OFFICE/OUTPT VISIT,[place] [address] [place] [address] Phone: tel: fax: [facility] [address] [place] [address] Phone: tel: fax: Referral ID Status Reason Start Date Expiration Date Visits Requested Visits Authorized [id number] Authorized Physical Therapy 10/13/2023 11/11/2024 99 99 Encounter Details Date Type Department Care Team (Late st Contact Info) Description 01/09/2024 8:23 AM PHOTOGRAPH FINISHER - 01/09/2024 11:59 PM PHOTOGRAPH FINISHER Hospital Encounter [facility] [address] [place] [address] [place] [address] [place], [place] [id number] [place] [address] [place], [place] [address] [place] [address] [place], [place] [id number] Shoulder Pain Discharge Disposition: Home or Self [...] tabletIndications :Bipolar I disorder with depression (CMS/HCC [facility]/HCC) Take 1 tablet (100 mg total) by [...] Actions taken: Episode edited, Chief Complaint modified OGRAPH FINISHER * Padmaja Marie, PT - 01/09/2024 8:30 [...] exacerbated early Oct. 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[employer] Job Duties: Has help at work to lift things currently Subjective Note: Manipulation for shoulder got cancelled because she had bronchitis. Only days available to [facility] were the day before linda or hermann [...] did not have service - went to [facility] to roller picker hernew service dog. Reported Falls since last visit: no Medications changes since last visit : no OBJECTIVE Treatment provided today: Therapeutic Exercise - 33494 Number of Minutes - 20331: 35 Exercise: NEXT- Pulleys scaption, butterfly x [...] home modalities, edema management. Manual Therapy - 73630 Number of Minutes - 26670: 15 Instrument Assisted STM: IASTM (no cups) to L upper arm (supine, pillow under LUE) attempting to disperse swelling in mid humerus area Modalities Non-Timed Hot Pack - 02565: MHP to L shoulder and low back [...] 50 Timed Code Treatment Minutes : 50 OGRAPH FINISHER documented in this encounter Plan of Treatment Upcoming Encounters Date Type Department Care Team (Late st Contact Info) Description 02/12/2024 9:00 AM PHOTOGRAPH FINISHER Appointment [facility] [address] [place] [address] [place] [address] [place] [address] [place] [address] [place] [address] 02/12/2024 2:00 PM PHOTOGRAPH FINISHER Appointment [address] [address] [place] [address] [place] [address] 02/16/2024 9:00 AM PHOTOGRAPH FINISHER Appointment [facility] [address] [place] [address] [place] [address] [place] [address] [place] [address] [place] [address] 02/19/2024 8:45 AM PHOTOGRAPH FINISHER Appointment [facility] [address] [place] [address] [place] [address] [place] [address] [place] [address] [place] [address] 02/19/2024 9:00 AM PHOTOGRAPH FINISHER Appointment [facility] [address] [place] [address] [place] [address] [place] [address] [place] [address] [place] [address] 02/23/2024 9:00 AM PHOTOGRAPH FINISHER Appointment [facility] [address] [place] [address] [place] [address] [place] [address] [place] [address] [place] [address] 02/24/2024 1:30 PM PHOTOGRAPH FINISHER Appointment [facility] [address] [place] [address] Ihsan Logan, [address] [place] [address] 02/26/2024 9:00 AM PHOTOGRAPH FINISHER Appointment [facility] [address] [place] [address] [place] [address] [place] [address] [place] [address] [place] [address] 02/26/2024 9:15 AM PHOTOGRAPH FINISHER Appointment [facility] [address] [place] [address] [place] [address] [place] [address] [place] [address] [place] [address] 03/01/2024 9:00 AM PHOTOGRAPH FINISHER Appointment [facility] [address] [place] [address] [place] [address] [place] [address] [place] [address] [place] [address] Lorene Branch, MEDICAL FRONT DESK SPECIALIST 03/02/2024 12:27 PM PHOTOGRAPH FINISHER Hospital Encounter [address] [address] [place] [address] [place] [address] 03/02/2024 12:27 PM PHOTOGRAPH FINISHER - 03/02/2024 1:07 PM PHOTOGRAPH FINISHER Surgery [facility] Surgery [address] [place] [address] [place] [address] [place] [address] MANIPULATION SHOULDER 03/05/2024 9:00 AM PHOTOGRAPH FINISHER Appointment [facility] [address] [place] [address] [place] [address] [place] [address] Lorene Branch, MEDICAL FRONT DESK SPECIALIST 03/08/2024 9:00 AM PHOTOGRAPH FINISHER Appointment [facility] [address] [place] [address] [place] [address] [place] [address] Lorene Branch, MEDICAL FRONT DESK SPECIALIST 03/11/2024 9:15 AM PHOTOGRAPH FINISHER Appointment [facility] [address] [place] [address] [place] [address] [place] [address] Lorene Branch, MEDICAL FRONT DESK SPECIALIST 03/15/2024 9:00 AM PHOTOGRAPH FINISHER Appointment [facility] [address] [place] [address] [place] [address] [place] [address] Lorene Branch, MEDICAL FRONT DESK SPECIALIST 03/18/2024 9:15 AM PHOTOGRAPH FINISHER Appointment [facility] [address] [place] [address] [place] [address] [place] [address] Lorene Branch, MEDICAL FRONT DESK SPECIALIST 03/22/2024 9:00 AM PHOTOGRAPH FINISHER Appointment [facility] [address] [place] [address] [place] [address] [place] [address] Jose CarlosChantal hernandezreginald Kennedy, MEDICAL FRONT DESK SPECIALIST 03/25/2024 9:15 AM PHOTOGRAPH FINISHER Appointment [facility] [address] [place] [address] [place] [address] [place] [address] Jose CarlosLorene hernandez Marcia, MEDICAL FRONT DESK SPECIALIST 04/21/2024 11:20 AM PHOTOGRAPH FINISHER Office Visit [facility] Family & Internal Medicine - [place] [address] [place] [address] [place] [address] [place] [address] Scheduled Procedures Name Priority Associated Diagnoses Date/Ti me MANIPULATION SHOULDER Adhesive capsulitis of left shoulder 03/02/2024 12:27 PM PHOTOGRAPH FINISHER INJECTION JOINT Adhesive capsulitis of left shoulder 03/02/2024 12:27 PM PHOTOGRAPH FINISHER documented as of this encounter Visit Diagnoses Diagnosis Frozen shoulder- Primary Adhesive capsulitis of shoulder Left shoulder pain- Primary Pain in joint, shoulder region Adhesive capsulitis of left shoulder Adhesive capsulitis of shoulder documented in this encounter Additional Health Concerns Assessment Noted Time PHQ-9 Depression Total Score: 24 024 3:24 PM CDT documented as of this encounter Care Teams Probate Lawyer Relationship Specialty [place] [address] [place] [address] PCP - General Physician Mule Operator Medical 09/16/23 documented as of this encounter
--- OUTSIDE RECORDS SUMMARY | 2024-02-12 08:27 | XMS_ITS | Encounter Summary ---
Author Organization [facility] Address [facility]. [place], [place] [address] [place] [address] Care Team Providers Care Area Relief Pilot Name Role Phone Holger Soriano Primary Care Provider Reason for Visit * Reason Comments Back Pain Shoulder Pain * Physical Medicine (Urgent) - Authorized Specialty Diagnoses / Procedures Referred By Contac t Referred To Contact PHYSICAL THERAPY Diagnoses Left shoulder pain Low back pain Procedures OFFICE/OUTPATIENT NEW LOW MDM 30-44 MINUTES OFFICE/OUTPT VISIT,NEW,LEVL IV OFFICE/OUTPT VISIT,NEW,LEVL V OFFICE/OUTPT VISIT,EST,LEVL III OFFICE/OUTPT VISIT,EST,LEVL IV OFFICE/OUTPT VISIT,EST,[place] [address] [place] [address] Phone: tel: fax: [facility] [address] [place] [address] Phone: tel: fax: Referral ID Status Reason Start Date Expiration Date Visits Requested Visits Authorized [id number] Authorized Physical Therapy 10/13/2023 11/11/2024 99 99 Encounter Details Date Type Department Care Team (Latest Contact Info) Description 02/05/2024 10:55 AM CLEAN UP WORKER - 02/05/2024 11:59 PM [facility] Hospital Encounter [facility] [address] [place] [address] [place] [address] [place], [place] [address] [place] [address] [place], [place] [id number] Back Pain; Shoulder Pain Discharge Disposition: Home [...] exacerbated early Oct. 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[employer] Job Duties: Has help at work to lift things currently Subjective Note: Missed a few appointments for the flu and work. Confirmed she is going on a 12 day cruise in March. Back and hips have been hurting, numbness going down the L leg when standing for too long. OBJECTIVE Treatment provided today: Therapeutic Exercise - 97189 Number of Minutes - 41064: 43 Exercise: Pulleys scaption, butterfly x 3 [...] x 10 long holds Manual Therapy - 55962 Number of Minutes - 32082: 20 Modalities Non-Timed Hot Pack - 84836: MHP to L shoulder and low back [...] 63 Timed Code Treatment Minutes : 63 N UP WORKER documented in this encounter Plan of Treatment Upcoming Encounters Date Type Department Care Team (Late st Contact Info) Description 02/12/2024 9:00 AM CLEAN UP WORKER Appointment [facility] [address] [place] [address] [place] [address] [place] [address] [place] [address] [place] [address] 02/12/2024 2:00 PM CLEAN UP WORKER Appointment [address] [address] [place] [address] [place] [address] 02/16/2024 9:00 AM CLEAN UP WORKER Appointment [facility] [address] [place] [address] [place] [address] [place] [address] [place] [address] [place] [address] 02/19/2024 8:45 AM CLEAN UP WORKER Appointment [facility] [address] [place] [address] [place] [address] [place] [address] [place] [address] [place] [address] 02/19/2024 9:00 AM CLEAN UP WORKER Appointment [facility] [address] [place] [address] [place] [address] [place] [address] [place] [address] [place] [address] 02/23/2024 9:00 AM CLEAN UP WORKER Appointment [facility] [address] [place] [address] [place] [address] [place] [address] [place] [address] [place] [address] 02/24/2024 1:30 PM CLEAN UP WORKER Appointment [facility] MRI [address] [place] [address] Ihsan Logan, [address] [place] [address] 02/26/2024 9:00 AM CLEAN UP WORKER Appointment [facility] [address] [place] [address] [place] [address] [place] [address] [place] [address] [place] [address] 02/26/2024 9:15 AM CLEAN UP WORKER Appointment [facility] [address] [place] [address] [place] [address] [place] [address] [place] [address] [place] [address] 03/01/2024 9:00 AM CLEAN UP WORKER Appointment [facility] [address] [place] [address] [place] [address] [place] [address] [place] [address] [place] [address] Lorene Branch, NEWS SPECIALIST 03/02/2024 12:27 PM CLEAN UP WORKER Hospital Encounter [facility] [address] [place] [address] Ihsan Logan, [address] [place] [address] 03/02/2024 12:27 PM CLEAN UP WORKER - 03/02/2024 1:07 PM CLEAN UP WORKER Surgery [facility] [address] [place] [address] [place] [address] [place] [address] MANIPULATION SHOULDER 03/05/2024 9:00 AM CLEAN UP WORKER Appointment [facility] [address] [place] [address] [place] [address] [place] [address] Lorene Branch, NEWS SPECIALIST 03/08/2024 9:00 AM CLEAN UP WORKER Appointment [facility] [address] [place] [address] [place] [address] [place] [address] Lorene Branch, NEWS SPECIALIST 03/11/2024 9:15 AM CLEAN UP WORKER Appointment [facility] [address] [place] [address] [place] [address] [place] [address] Lorene Branch, NEWS SPECIALIST 03/15/2024 9:00 AM CLEAN UP WORKER Appointment [facility] [address] [place] [address] [place] [address] [place] [address] Lorene Branch, NEWS SPECIALIST 03/18/2024 9:15 AM CLEAN UP WORKER Appointment [facility] [address] [place] [address] [place] [address] [place] [address] Lorene Branch, NEWS SPECIALIST 03/22/2024 9:00 AM CLEAN UP WORKER Appointment [facility] [address] [place] [address] [place] [address] [place] [address] Lorene Branch, NEWS SPECIALIST 03/25/2024 9:15 AM CLEAN UP WORKER Appointment [facility] [address] [place] [address] [place] [address] [place] [address] Lorene Branch PTA 04/21/2024 11:20 AM CLEAN UP WORKER Office Visit [facility] Family & Internal Medicine [facility] [address] [place] [phone] [place] [address] [place] [address] Scheduled Procedures Name Priority Associated Diagnoses Date/Ti me MANIPULATION SHOULDER Adhesive capsulitis of left shoulder 03/02/2024 12:27 PM CLEAN UP WORKER INJECTION JOINT Adhesive capsulitis of left shoulder 03/02/2024 12:27 PM CLEAN UP WORKER documented as of this encounter Visit Diagnoses Diagnosis Frozen shoulder- Primary Adhesive capsulitis of shoulder Left shoulder pain- Primary Pain in joint, shoulder region Adhesive capsulitis of left shoulder Adhesive capsulitis of shoulder documented in this encounter Additional Health Concerns Assessment Noted Time PHQ-9 Depression Total Score: 24 024 3:24 PM CDT documented as of this encounter Care Teams Area Relief Pilot Relationship Specialty [place] [address] [place] [address] PCP - General Physician Relief Operator Medical 09/16/23 documented as of this encounter
--- OUTSIDE RECORDS SUMMARY | 2024-02-12 08:27 | XMS_ITS | Encounter Summary ---
Author Organization [facility] Address [facility] [place], [place] [address] [place] [address] Care Team Providers Care Medical Device Sales Representative Name Role Phone Holger Soriano Primary Care Provider [phone] Reason for Visit * Reason Comments Shoulder Pain Back Pain * Physical Medicine (Urgent) - Authorized Specialty Diagnoses / Procedures Referred By Shmuel t Referred To Contact PHYSICAL THERAPY Diagnoses Left shoulder pain Low back pain Procedures OFFICE/OUTPATIENT NEW LOW MDM 30-44 MINUTES OFFICE/OUTPT VISIT,NEW,LEVL IV OFFICE/OUTPT VISIT,NEW,LEVL V OFFICE/OUTPT VISIT,EST,LEVL III OFFICE/OUTPT VISIT,EST,LEVL IV OFFICE/OUTPT VISIT,EST,[place] [address] [place] [address] Phone: tel: fax: [facility] [address] [place] [address] Phone: tel: fax: Referral ID Status Reason Start Date Expiration Date Visits Requested Visits Authorized [id number] Authorized Physical Therapy 10/13/2023 11/11/2024 99 99 Encounter Details Date Type Department Care Team (Latest Contact Info) Description 01/20/2024 8:58 AM APARTMENT MAINTENANCE SUPERVISOR - 01/20/2024 11:59 PM APARTMENT MAINTENANCE SUPERVISOR Hospital Encounter [facility] [address] [place], [place] [address] [place] [address] [place] [address] Lorene Branch PTA Shoulder Pain; Back Pain [...] this encounter Progress Notes * Lorene Branch, CLOUD SYSTEMS ADMINISTRATOR - 01/20/2024 9:00 AM CST Physical Therapy [...] exacerbated early Oct. 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[employer] Job Duties: Has help at work [...] OBJECTIVE Treatment provided today: Therapeutic Exercise - 55014 Number of Minutes - 32626: 40 Exercise: Pulleys scaption, butterfly x 2-3 [...] L3 x 2 min Manual Therapy - 65547 Number of Minutes - 78721: 15 Instrument Assisted STM: IASTM (no cups) to L upper arm (supine, pillow under LUE) attempting to disperse swelling in mid humerus area Modalities Non-Timed Hot Pack - 49852: MHP to L shoulder and low back [...] 55 Timed Code Treatment Minutes : 55 TMENT MAINTENANCE SUPERVISOR documented in this encounter Plan of Treatment Upcoming Encounters Date Type Department Care Team (Late st Contact Info) Description 02/12/2024 9:00 AM APARTMENT MAINTENANCE SUPERVISOR Appointment [facility] [address] [place] [address] [place] [address] [place] [address] [place] [address] [place] [address] 02/12/2024 2:00 PM APARTMENT MAINTENANCE SUPERVISOR Appointment [facility] MRI [address] [place] [address] [place] [address] [place] [address] 02/16/2024 9:00 AM APARTMENT MAINTENANCE SUPERVISOR Appointment [facility] [address] [place] [address] [place] [address] [place] [address] [place] [address] [place] [address] 02/19/2024 8:45 AM APARTMENT MAINTENANCE SUPERVISOR Appointment [facility] [address] [place] [address] [place] [address] [place] [address] [place] [address] [place] [address] 02/19/2024 9:00 AM APARTMENT MAINTENANCE SUPERVISOR Appointment [facility] [address] [place] [address] [place] [address] [place] [address] [place] [address] [place] [address] 02/23/2024 9:00 AM APARTMENT MAINTENANCE SUPERVISOR Appointment [facility] [address] [place] [address] [place] [address] [place] [address] [place] [address] [place] [address] 02/24/2024 1:30 PM APARTMENT MAINTENANCE SUPERVISOR Appointment [facility] [address] [place] [address] [place] [address] [place] [address] 02/26/2024 9:00 AM APARTMENT MAINTENANCE SUPERVISOR Appointment [facility] [address] [place] [address] [place] [address] [place] [address] [place] [address] [place] [address] 02/26/2024 9:15 AM APARTMENT MAINTENANCE SUPERVISOR Appointment [facility] [address] [place] [address] [place] [address] [place] [address] [place] [address] [place] [address] 03/01/2024 9:00 AM APARTMENT MAINTENANCE SUPERVISOR Appointment [facility] [address] [place] [address] [place] [address] [place] [address] [place] [address] [place] [address] Lorene Branch, CLOUD SYSTEMS ADMINISTRATOR 03/02/2024 12:27 PM APARTMENT MAINTENANCE SUPERVISOR Hospital Encounter [facility] [address] [place] [address] [place] [address] [place] [address] 03/02/2024 12:27 PM APARTMENT MAINTENANCE SUPERVISOR - 03/02/2024 1:07 PM APARTMENT MAINTENANCE SUPERVISOR Surgery [facility] [address] [place] [address] [place] [address] [place] [address] MANIPULATION SHOULDER 03/05/2024 9:00 AM APARTMENT MAINTENANCE SUPERVISOR Appointment [facility] [address] [place] [address] [place] [address] [place] [address] Lorene Branch, CLOUD SYSTEMS ADMINISTRATOR 03/08/2024 9:00 AM APARTMENT MAINTENANCE SUPERVISOR Appointment [facility] [address] [place] [address] [place] [address] [place] [address] Lorene Branch, CLOUD SYSTEMS ADMINISTRATOR 03/11/2024 9:15 AM APARTMENT MAINTENANCE SUPERVISOR Appointment [facility] [address] [place] [address] [place] [address] [place] [address] Lorene Branch, CLOUD SYSTEMS ADMINISTRATOR 03/15/2024 9:00 AM APARTMENT MAINTENANCE SUPERVISOR Appointment [facility] [address] [place] [address] [place] [address] [place] [address] Lorene Branch, CLOUD SYSTEMS ADMINISTRATOR 03/18/2024 9:15 AM APARTMENT MAINTENANCE SUPERVISOR Appointment [facility] [address] [place] [address] [place] [address] [place] [address] Lorene Branch, CLOUD SYSTEMS ADMINISTRATOR 03/22/2024 9:00 AM APARTMENT MAINTENANCE SUPERVISOR Appointment [facility] [address] [place] [address] [place] [address] [place] [address] Lorene Branch, CLOUD SYSTEMS ADMINISTRATOR 03/25/2024 9:15 AM APARTMENT MAINTENANCE SUPERVISOR Appointment [facility] [address] [place] [address] [place] [address] [place] [address] Lorene Branch, CLOUD SYSTEMS ADMINISTRATOR 04/21/2024 11:20 AM APARTMENT MAINTENANCE SUPERVISOR Office Visit [facility] Family & Internal Medicine [address] [phone] [place] [address] [place] [address] Scheduled Procedures Name Priority Associated Diagnoses Date/Ti me MANIPULATION SHOULDER Adhesive capsulitis of left shoulder 03/02/2024 12:27 PM APARTMENT MAINTENANCE SUPERVISOR INJECTION JOINT Adhesive capsulitis of left shoulder 03/02/2024 12:27 PM APARTMENT MAINTENANCE SUPERVISOR documented as of this encounter Visit Diagnoses Diagnosis Frozen shoulder- Primary Adhesive capsulitis of shoulder Left shoulder pain- Primary Pain in joint, shoulder region Adhesive capsulitis of left shoulder Adhesive capsulitis of shoulder documented in this encounter Additional Health Concerns Assessment Noted Time PHQ-9 Depression Total Score: 024 3:24 PM CDT documented as of this encounter Care Teams Medical Device Sales Representative Relationship Specialty [place] [address] [place] [address] PCP - General Physician Territory Business Manager Medical 09/16/23 documented as of this encounter
--- OUTSIDE RECORDS SUMMARY | 2024-02-12 08:27 | XMS_ITS | Encounter Summary ---
Author Organization [facility] Address Formerly [facility] [place] [address] [place] [address] Care Team Providers Care Older Worker Specialist Name Role Phone Holger Soriano Primary Care Provider [phone] Encounter Details Date Type Department Care Team (Latest Contact Info) Description 02/09/2024 9:47 AM PROJECT MANAGER RETAIL - 02/09/2024 11:59 PM [facility] Hospital Encounter [facility] [address] [place] [address] [place] [address] [place], [place] [id number] Arrived Discharge Disposition: Home or Self Care [...] st Contact Info) Description 02/12/2024 9:00 AM PROJECT MANAGER RETAIL Appointment [facility] [id number] [place] [address] [place] [address] [place] [address] [place] [address] [place] [address] 02/12/2024 2:00 PM PROJECT MANAGER RETAIL Appointment [address] [address] [place] [address] [place] [address] 02/16/2024 9:00 AM PROJECT MANAGER RETAIL Appointment [facility] [address] [place] [address] [place] [address] [place] [address] [place] [address] [place] [address] 02/19/2024 8:45 AM PROJECT MANAGER RETAIL Appointment [facility] [address] [place] [address] [place] [address] [place] [address] [place] [address] [place] [address] 02/19/2024 9:00 AM PROJECT MANAGER RETAIL Appointment [facility] [address] [place] [address] [place] [address] [place] [address] [place] [address] [place] [address] 02/23/2024 9:00 AM PROJECT MANAGER RETAIL Appointment [facility] [address] [place] [address] [place] [address] [place] [address] [place] [address] [place] [address] 02/24/2024 1:30 PM PROJECT MANAGER RETAIL Appointment [place] [address] [place] [address] [place] [address] 02/26/2024 9:00 AM PROJECT MANAGER RETAIL Appointment [facility] [address] [place] [address] [place] [address] [place] [address] [place] [address] [place] [address] 02/26/2024 9:15 AM PROJECT MANAGER RETAIL Appointment [facility] [address] [place] [address] [place] [address] [place] [address] [place] [address] [place] [address] 03/01/2024 9:00 AM PROJECT MANAGER RETAIL Appointment [facility] [address] [place] [address] [place] [address] [place] [address] [place] [address] [place] [address] Lorene Branch, TABLE GAMES DEALER 03/02/2024 12:27 PM PROJECT MANAGER RETAIL Hospital Encounter [facility] [address] [place] [address] [place] [address] [place] [address] 03/02/2024 12:27 PM PROJECT MANAGER RETAIL - 03/02/2024 1:07 PM PROJECT MANAGER RETAIL Surgery [facility] [address] [place] [address] [place] [address] [place] [address] MANIPULATION SHOULDER 03/05/2024 9:00 AM PROJECT MANAGER RETAIL Appointment [facility] [address] [place] [address] [place] [address] [place] [address] Lorene Branch, TABLE GAMES DEALER 03/08/2024 9:00 AM PROJECT MANAGER RETAIL Appointment [facility] [address] [place] [address] [place] [address] [place] [address] Lorene Branch, TABLE GAMES DEALER 03/11/2024 9:15 AM PROJECT MANAGER RETAIL Appointment [facility] [address] [place] [address] [place] [address] [place] [address] Lorene Branch, TABLE GAMES DEALER 03/15/2024 9:00 AM PROJECT MANAGER RETAIL Appointment [facility] [address] [place] [address] [place] [address] [place] [address] Lorene Branch, TABLE GAMES DEALER 03/18/2024 9:15 AM PROJECT MANAGER RETAIL Appointment [facility] [address] [place] [address] [place] [address] [place] [address] Lorene Branch, TABLE GAMES DEALER 03/22/2024 9:00 AM PROJECT MANAGER RETAIL Appointment [facility] [address] [place] [address] [place] [address] [place] [address] Lorene Branch, TABLE GAMES DEALER 03/25/2024 9:15 AM PROJECT MANAGER RETAIL Appointment [facility] [address] [place] [address] [place] [address] [place] [address] Lorene Branch, TABLE GAMES DEALER 04/21/2024 11:20 AM PROJECT MANAGER RETAIL Office Visit [facility] Medical Group Family & Internal Medicine [facility] [address] [place] [address] [place] [address] [place] [address] Scheduled Procedures Name Priority Associated Diagnoses Date/Ti me MANIPULATION SHOULDER Adhesive capsulitis of left shoulder 03/02/2024 12:27 PM PROJECT MANAGER RETAIL INJECTION JOINT Adhesive capsulitis of left shoulder 03/02/2024 12:27 PM PROJECT MANAGER RETAIL documented as of this encounter Procedures Procedure Name Priority Date/Time Associated Diagnosis Comments TSH W/REFLEX Routine 02/09/2024 9:50 AM PROJECT MANAGER RETAIL Post concussion syndrome Muscle spasm Vitamin D deficiency Type 2 diabetes mellitus without complications ([facility]/HCC HHS/HCC) COMPREHENSIVE METABOLIC PANEL STAT 02/09/2024 9:50 AM PROJECT MANAGER RETAIL Muscle spasm CBC W/DIFF AUTOMATED STAT 02/09/2024 9:50 AM PROJECT MANAGER RETAIL Post concussion syndrome Muscle spasm VITAMIN D, 25 OH Routine 02/09/2024 9:50 AM PROJECT MANAGER RETAIL Vitamin D deficiency MAGNESIUM STAT 02/09/2024 9:50 AM PROJECT MANAGER RETAIL Post concussion syndrome Muscle spasm documented in this encounter Results * TSH W/REFLEX (02/09/2024 9:50 AM PROJECT MANAGER RETAIL) TSH 0.761 0.358 - 3.74 uIU/ML 02/09/2024 11:36 AM PROJECT MANAGER RETAIL [facility] Comment: HIGH DOSES OF BIOTIN MAY INTERFERE WITH THIS TEST RESULT. CORRELATION TO CLINICAL HISTORY AND PRESENTATION RECOMMENDED. FREE T4 NOT INDICATED 02/09/2024 9:50 AM PROJECT MANAGER RETAIL [facility] Final Result Performing Organization Address [facility] de Phone Number [facility] [address] [place] [address], * (ABNORMAL) VITAMIN D, 25 OH (02/09/2024 9:50 AM PROJECT MANAGER RETAIL) VITAMIN D 25 HYDROXY S/P/B 15(L) 30 - 100 NG/ML 02/09/2024 10:43 AM PROJECT MANAGER RETAIL [facility] Comment: ? INTERPRETATION ? DEFICIENT ??<20 ? INSUFFICIENT 20-29 ?SUFFICIENT 30-100 02/09/2024 9:50 AM PROJECT MANAGER RETAIL [facility] Final Result Performing Organization Address [facility] Co de Phone Number [facility] [address] [place] [address], [place] [phone] * MAGNESIUM (02/09/2024 9:50 AM PROJECT MANAGER RETAIL) Pathologist [facility] MAGNESIUM 1.9 1.8 - 2.4 MG/DL 02/09/2024 10:20 AM [facility] 02/09/2024 9:50 AM PROJECT MANAGER RETAIL [facility] Final Result [facility] [address] [place] [address], * (ABNORMAL) CBC W/DIFF AUTOMATED (02/09/2024 9:50 AM PROJECT MANAGER RETAIL) [facility] WBC 7.25 4.4 - 11.0 x10'3/uL 02/09/2024 10:06 AM [facility] RBC 4.92 4.50 - 5.10 x10'6/uL 02/09/2024 10:06 AM [facility] HGB 13.9 12.3 - 15.3 G/DL 02/09/2024 10:06 AM [facility] HCT 41.3 35.9 - 44.6 % 02/09/2024 10:06 AM [facility] MCV 83.9 80.0 - 96.0 FL 02/09/2024 10:06 AM [facility] MCH 28.3 25.3 - 30.9 PG 02/09/2024 10:06 AM [facility] MCHC 33.7 31.0 - 34.1 G/DL 02/09/2024 10:06 AM [facility] RDW 13.8 12.4 - 15.1 % 02/09/2024 10:06 AM [facility] PLT 244 151 - 353 x10'3/uL 02/09/2024 10:06 AM [facility] MPV 9.1(L) 9.6 - 12.0 FL 02/09/2024 10:06 AM [facility] RBC MORPHOLOGY NORMAL 02/09/2024 10:06 AM [facility] PLT MORPH. NORMAL 02/09/2024 10:06 AM [facility] WBC MORPHOLOGY NORMAL 02/09/2024 10:06 AM [facility] LYMPHOCYTES % 24.7 15.8 - 45.0 % 02/09/2024 10:06 AM [facility] NEUTROPHILS % 59.3 42.1 - 71.9 % 02/09/2024 10:06 AM [facility] MONOCYTES % 4.8(L) 5.7 - 12.5 % 02/09/2024 10:06 AM [facility] EOSINOPHILS 10.3(H) 0.0 - 5.6 % 02/09/2024 10:06 AM [facility] BASOPHILS 0.8 0.0 - 1.3 % 02/09/2024 10:06 AM [facility] ABS. NEUTROPHILS 4.29 1.40 - 6.00 x10'3/uL 02/09/2024 10:06 AM [facility] IMMATURE GRANS % 0.1 0.0 - 0.5 % 02/09/2024 10:06 AM [facility] ABS. LYMPHOCYTES 1.79 0.80 - 4.70 x10'3/uL 02/09/2024 10:06 AM [facility] 02/09/2024 9:50 AM PROJECT MANAGER RETAIL us [facility] Final Result [facility] [address] [place] [address], [place] [phone] * (ABNORMAL) COMPREHENSIVE METABOLIC PANEL (02/09/2024 9:50 AM [facility]) [facility] GLUCOSE 90 70 - 99 MG/DL 02/09/2024 10:20 AM [facility] BUN 14 7 - 18 MG/DL 02/09/2024 10:20 AM [facility] CREATININE S/P/B 0.63 0.55 - 1.02 MG/DL 02/09/2024 10:20 AM [facility] SODIUM S/P/B 141 136 - 145 MMOL/L 02/09/2024 10:20 AM [facility] POTASSIUM S/P/B 4.1 3.5 - 5.1 MMOL/L 02/09/2024 10:20 AM [facility] CHLORIDE S/P/B 107 100 - 108 MMOL/L 02/09/2024 10:20 AM [facility] CO2 25.3 21 - 32 MMOL/L 02/09/2024 10:20 AM [facility] CALCIUM S/P/B 9.1 8.5 - 10.1 MG/DL 02/09/2024 10:20 AM [facility] BILIRUBIN TOTAL S/P/B 1.2 0.2 - 1.2 MG/DL 02/09/2024 10:20 AM [facility] TOTAL PROTEIN S/P/B 7.9 6.4 - 8.2 G/DL 02/09/2024 10:20 AM [facility] ALBUMIN S/P/B 3.8 3.4 - 5.0 G/DL 02/09/2024 10:20 AM [facility] AST 35 15 - 37 U/L 02/09/2024 10:20 AM [facility] ALT 49 14 - 55 U/L 02/09/2024 10:20 AM [facility] ALKALINE PHOSPHATASE S/P/B 86 50 - 136 U/L 02/09/2024 10:20 AM [facility] ANION GAP 8.7 5 - 15 MMOL/L 02/09/2024 10:20 AM [facility] BUN CREATININE RATIO 22.2 6 - 26 02/09/2024 10:20 AM [facility] A/G RATIO 0.9(L) 1.0 - 2.0 RATIO 02/09/2024 10:20 AM [facility] GFR ESTIMATE >90 >90 ML/MIN/1.7 3 M2 02/09/2024 10:20 AM [facility] Comment: NOTE: eGFR is not calculated for patients <18 years of age. This is an estimated GFR calculation using the new CKD EPI creatinine equation without race and so does not require a correction factor for race. This estimated GFR should not be used for calculating drug doses. 02/09/2024 9:50 AM PROJECT MANAGER RETAIL us [facility] Final Result Performing Organization Address City/State/[facility] Co de Phone Number [facility] [address] [place] [address], [place] [phone] documented in this encounter Visit Diagnoses Diagnosis [...] documented as of this encounter Care Teams Older Worker Specialist Relationship Specialty [place] [address] [place] [address] PCP - General Physician Elastic Yarn Twister Helper Medical 09/16/23 documented as of this encounter
--- OUTSIDE RECORDS SUMMARY | 2024-02-12 08:27 | XMS_ITS | Encounter Summary ---
Author Organization [facility] Address [facility] [place], [place] [address] [place] [address] Care Team Providers Care Container Crane Operator Name Role Phone Holger Soriano Primary Care Provider [phone] Encounter Details Date Type Department Care Team [...] st Contact Info) Description 02/12/2024 9:00 AM ROLLING CHAIR PUSHER Appointment [facility] [address] [place], [place] [address] [place] [address] [facility], [place] [address] [place] [address] [place] [address] 02/12/2024 2:00 PM ROLLING CHAIR PUSHER Appointment [facility] MRI [address] [place] [address] [place] [address] [place] [address] 02/16/2024 9:00 AM ROLLING CHAIR PUSHER Appointment [facility] [address] [place] [address] [place] [address] [place] [address] [place] [address] [place] [address] 02/19/2024 8:45 AM ROLLING CHAIR PUSHER Appointment [facility] [address] [place] [address] [place] [address] [place] [address] [place] [address] [place] [address] 02/19/2024 9:00 AM ROLLING CHAIR PUSHER Appointment [facility] [address] [place] [address] [place] [address] [place] [address] [place] [address] [place] [address] 02/23/2024 9:00 AM ROLLING CHAIR PUSHER Appointment [facility] [address] [place] [address] [place] [address] [place] [address] [place] [address] [place] [address] 02/24/2024 1:30 PM ROLLING CHAIR PUSHER Appointment [facility] MRI [address] [place] [address] [place] [address] [place] [address] 02/26/2024 9:00 AM ROLLING CHAIR PUSHER Appointment [facility] [address] [place] [address] [place] [address] [place] [address] [place] [address] [place] [address] 02/26/2024 9:15 AM ROLLING CHAIR PUSHER Appointment [facility] [address] [place] [address] [place] [address] [place] [address] [place] [address] [place] [address] 03/01/2024 9:00 AM ROLLING CHAIR PUSHER Appointment [facility] [address] [place] [address] [place] [address] [place] [address] [place] [address] [place] [address] Lorene Branch, PARAMEDIC RN 03/02/2024 12:27 PM ROLLING CHAIR PUSHER Hospital Encounter [facility] [address] [place] [address] [place] [address] [place] [address] 03/02/2024 12:27 PM ROLLING CHAIR PUSHER - 03/02/2024 1:07 PM ROLLING CHAIR PUSHER Surgery [facility] Surgery [address] [place] [address] [place] [address] [place] [address] MANIPULATION SHOULDER 03/05/2024 9:00 AM ROLLING CHAIR PUSHER Appointment [facility] [address] [place] [address] [place] [address] [place] [address] Lorene Branch, PARAMEDIC RN 03/08/2024 9:00 AM ROLLING CHAIR PUSHER Appointment [facility] [address] [place] [address] [place] [address] [place] [address] Lorene Branch, PARAMEDIC RN 03/11/2024 9:15 AM ROLLING CHAIR PUSHER Appointment [facility] [address] [place] [address] [place] [address] [place] [address] Lorene Branch, PARAMEDIC RN 03/15/2024 9:00 AM ROLLING CHAIR PUSHER Appointment [facility] [address] [place] [address] [place] [address] [place] [address] Lorene Branch, PARAMEDIC RN 03/18/2024 9:15 AM ROLLING CHAIR PUSHER Appointment [facility] [address] [place] [address] [place] [address] [place] [address] Lorene Branch, PARAMEDIC RN 03/22/2024 9:00 AM ROLLING CHAIR PUSHER Appointment [facility] [address] [place] [address] [place] [address] [place] [address] Lorene Branch, PARAMEDIC RN 03/25/2024 9:15 AM ROLLING CHAIR PUSHER Appointment [facility] [address] [place] [address] [place] [address] [place] [address] Lorene Branch, PARAMEDIC RN 04/21/2024 11:20 AM ROLLING CHAIR PUSHER Office Visit [facility] Medical Group Family & Internal Medicine - [address] [phone] [place] [address] [place] [address] Scheduled Procedures Name Priority Associated Diagnoses Date/Ti me MANIPULATION SHOULDER Adhesive capsulitis of left shoulder 03/02/2024 12:27 PM ROLLING CHAIR PUSHER INJECTION JOINT Adhesive capsulitis of left shoulder 03/02/2024 12:27 PM ROLLING CHAIR PUSHER documented as of this encounter Visit Diagnoses Not on filedocumented in this encounter Additional Health Concerns Assessment Noted Time PHQ-9 Depression Total Score: 024 3:24 PM CDT documented as of this encounter Care Teams Container Crane Operator Relationship Specialty [place] [address] [place] [address] PCP - General Physician Negotiations Director Medical 09/16/23 documented as of this encounter
--- OUTSIDE RECORDS SUMMARY | 2024-02-12 08:27 | XMS_ITS | Encounter Summary ---
Author Organization [facility] Address [facility] [place] [address] [place] [address] Care Team Providers Care Campus Ambassador Name Role Phone Holger Soriano Primary Care Provider [phone] Reason for Visit * Reason Onset Date Comments Other 02/09/2024 MRI order Encounter Details Date Type Department Care Team (Late st Contact Info) Description 02/09/2024 Telephone [facility] Medical Group Family & Internal Medicine [facility] [address] [place] [address] [place] [address] [place] [address] Other (MRI order ) Social History [...] MA - 02/10/2024 1:53 PM CST FYI TE NOZZLE OPERATOR * Alejandra Zamudio LPN - 02/10/2024 1:33 [...] just wanted to inform PCP of above TE NOZZLE OPERATOR * Susana Nunez MA - 02/09/2024 3:09 PM CST I spoke to Adelina and he is fine with her waiting until 02/12/24 since it is only 3 days away TE NOZZLE OPERATOR * Alejandra Zamudio LPN - 02/09/2024 11:09 AM CST Pt called she was seen by Adelina pt said that she was told that [employer] wanted MRI brain STAT and at [facility] earliest is 02/12/24 I spoke to Chin DOWNEY and the order say CHELE and the is only 3 days away She will talk to adelina but for now pt to keep 02/12/24 date Pt V/U We will call her if needs sooner [phone] TE NOZZLE OPERATOR documented in this encounter Plan of Treatment Upcoming Encounters Date Type Department Care Team (Late st Contact Info) Description 02/12/2024 9:00 AM GUNITE NOZZLE OPERATOR Appointment [facility] Outpatient Rehab [address] [place] [address] [place] [address] [place] [address] [place] [address] [place] [address] 02/12/2024 2:00 PM GUNITE NOZZLE OPERATOR Appointment [facility] MRI [address] [place] [address] [place] [address] [place] [address] 02/16/2024 9:00 AM GUNITE NOZZLE OPERATOR Appointment [facility]patient [facility]hab [address] [place] [address] [place] [address] [place] [address] [place] [address] [place] [address] 02/19/2024 8:45 AM GUNITE NOZZLE OPERATOR Appointment [facility]hab [address] [place] [address] [place] [address] [place] [address] [place] [address] [place] [address] 02/19/2024 9:00 AM GUNITE NOZZLE OPERATOR Appointment [facility]hab [address] [place] [address] [place] [address] [place] [address] [place] [address] [place] [address] 02/23/2024 9:00 AM GUNITE NOZZLE OPERATOR Appointment [facility]hab [address] [place] [address] [place] [address] [place] [address] [place] [address] [place] [address] 02/24/2024 1:30 PM GUNITE NOZZLE OPERATOR Appointment [address] [address] [place] [address] [place] [address] 02/26/2024 9:00 AM GUNITE NOZZLE OPERATOR Appointment [facility]hab [address] [place] [address] [place] [address] [place] [address] [place] [address] [place] [address] 02/26/2024 9:15 AM GUNITE NOZZLE OPERATOR Appointment [facility]hab [address] [place] [address] [place] [address] [place] [address] [place] [address] [place] [address] 03/01/2024 9:00 AM GUNITE NOZZLE OPERATOR Appointment [facility] [address] [place] [address] [place] [address] [place] [address] [place] [address] [place] [address] Lorene Branch, GRINDING MACHINE OPERATOR 03/02/2024 12:27 PM GUNITE NOZZLE OPERATOR Hospital Encounter [facility] Surgery [address] [place] [address] [place] [address] [place] [address] 03/02/2024 12:27 PM GUNITE NOZZLE OPERATOR - 03/02/2024 1:07 PM GUNITE NOZZLE OPERATOR Surgery [facility] Surgery [address] [place] [address] [place] [address] [place] [address] MANIPULATION SHOULDER 03/05/2024 9:00 AM GUNITE NOZZLE OPERATOR Appointment [facility]patient [facility]hab [address] [place] [address] [place] [address] [place] [address] Lorene Branch, GRINDING MACHINE OPERATOR 03/08/2024 9:00 AM GUNITE NOZZLE OPERATOR Appointment [facility] [address] [place] [address] [place] [address] [place] [address] Lorene Branch, GRINDING MACHINE OPERATOR 03/11/2024 9:15 AM GUNITE NOZZLE OPERATOR Appointment [facility] [address] [place] [address] [place] [address] [place] [address] Lorene Branch, GRINDING MACHINE OPERATOR 03/15/2024 9:00 AM GUNITE NOZZLE OPERATOR Appointment [facility]hab [address] [place] [address] [place] [address] [place] [address] Lorene Branch, GRINDING MACHINE OPERATOR 03/18/2024 9:15 AM GUNITE NOZZLE OPERATOR Appointment [facility] [address] [place] [address] [place] [address] [place] [address] Lorene Branch, GRINDING MACHINE OPERATOR 03/22/2024 9:00 AM GUNITE NOZZLE OPERATOR Appointment [facility] [address] [place] [address] [place] [address] [place] [address] Lorene Branch, GRINDING MACHINE OPERATOR 03/25/2024 9:15 AM GUNITE NOZZLE OPERATOR Appointment [facility] [address] [place] [address] [place] [address] [place] [address] Lorene Branch, GRINDING MACHINE OPERATOR 04/21/2024 11:20 AM GUNITE NOZZLE OPERATOR Office Visit [facility] Medical Group Family & Internal Medicine [facility] [address] [place] [phone] [place] [address] [place] [address] Scheduled Procedures Name Priority Associated Diagnoses Date/Ti me MANIPULATION SHOULDER Adhesive capsulitis of left shoulder 03/02/2024 12:27 PM GUNITE NOZZLE OPERATOR INJECTION JOINT Adhesive capsulitis of left shoulder 03/02/2024 12:27 PM GUNITE NOZZLE OPERATOR documented as of this encounter Visit Diagnoses Not on filedocumented in this encounter Additional Health Concerns Assessment Noted Time PHQ-9 Depression Total Score: 024 3:24 PM CDT documented as of this encounter Care Teams Campus Ambassador Relationship Specialty [place] [address] [place] [address] PCP - General Physician Playback Operator Medical 09/16/23 documented as of this encounter
--- OUTSIDE RECORDS SUMMARY | 2024-02-12 08:27 | XMS_ITS | Encounter Summary ---
Author Organization [facility] Address [facility] [place] [address] [place] [address] Care Team Providers Care Sod Cutter Name Role Phone Holger Soriano Primary Care Provider [phone] Reason for Referral * Surgical (Routine) - New Request Specialty Diagnoses / Procedures Referred By Shmuel angel Referred To Contact Diagnoses Adhesive capsulitis of left shoulder Procedures Case request operating room: MANIPULATION SHOULDER, [place] [address] [place] [address] Phone: tel: fax: Referral ID Status Reason Start Date Expiration Date V isits Requested Visits Authorized [id number] New Request 01/01/2024 12/31/2024 1 1 PLOYMENT INSURANCE DIRECTOR Encounter Details Date Type Department Care Team (Late st Contact Info) Description 01/01/[address] [facility] [address] [place], [place] [id number] [place] [address] [place] [address] Social History Tobacco Use Types [...] st Contact Info) Description 02/12/2024 9:00 AM UNEMPLOYMENT INSURANCE DIRECTOR Appointment [facility] [address] [place] [address] [place] [address] [place] [address] [place] [address] [place] [address] 02/12/2024 2:00 PM UNEMPLOYMENT INSURANCE DIRECTOR Appointment [facility] [address] [place] [address] [place] [address] [place] [address] 02/16/2024 9:00 AM UNEMPLOYMENT INSURANCE DIRECTOR Appointment [facility] [address] [place] [address] [place] [address] [place] [address] [place] [address] [place] [address] 02/19/2024 8:45 AM UNEMPLOYMENT INSURANCE DIRECTOR Appointment [facility] [address] [place] [address] [place] [address] [place] [address] [place] [address] [place] [address] 02/19/2024 9:00 AM UNEMPLOYMENT INSURANCE DIRECTOR Appointment [facility] [address] [place] [address] [place] [address] [place] [address] [place] [address] [place] [address] 02/23/2024 9:00 AM UNEMPLOYMENT INSURANCE DIRECTOR Appointment [facility] [address] [place] [address] [place] [address] [place] [address] Holger Soriano, TYLER [address] [place] [address] 02/24/2024 1:30 PM UNEMPLOYMENT INSURANCE DIRECTOR Appointment [facility] MRI [address] [place] [address] Ihsan Logan, [address] [place] [address] 02/26/2024 9:00 AM UNEMPLOYMENT INSURANCE DIRECTOR Appointment [facility] [address] [place] [address] [place] [address] [place] [address] [place] [address] [place] [address] 02/26/2024 9:15 AM UNEMPLOYMENT INSURANCE DIRECTOR Appointment [facility] [address] [place] [address] [place] [address] [place] [address] [place] [address] [place] [address] 03/01/2024 9:00 AM UNEMPLOYMENT INSURANCE DIRECTOR Appointment [facility] [address] [place] [address] [place] [address] [place] [address] [place] [address] [place] [address] Lorene Branch, PLASTIC MANAGER 03/02/2024 12:27 PM UNEMPLOYMENT INSURANCE DIRECTOR Hospital Encounter [facility] [address] [address] [place] [address] [place] [address] 03/02/2024 12:27 PM UNEMPLOYMENT INSURANCE DIRECTOR - 03/02/2024 1:07 PM UNEMPLOYMENT INSURANCE DIRECTOR Surgery [facility] Surgery [address] [place] [address] [place] [address] [place] [address] MANIPULATION SHOULDER 03/05/2024 9:00 AM UNEMPLOYMENT INSURANCE DIRECTOR Appointment [facility] [address] [place] [address] [place] [address] [place] [address] Lorene Branch, PLASTIC MANAGER 03/08/2024 9:00 AM UNEMPLOYMENT INSURANCE DIRECTOR Appointment [facility] [address] [place] [address] [place] [address] [place] [address] Lorene Branch, PLASTIC MANAGER 03/11/2024 9:15 AM UNEMPLOYMENT INSURANCE DIRECTOR Appointment [facility] [address] [place] [address] [place] [address] [place] [address] Lorene Branch, PLASTIC MANAGER 03/15/2024 9:00 AM UNEMPLOYMENT INSURANCE DIRECTOR Appointment [facility] [address] [place] [address] [place] [address] [place] [address] Lorene Branch, PLASTIC MANAGER 03/18/2024 9:15 AM UNEMPLOYMENT INSURANCE DIRECTOR Appointment [facility] [address] [place] [address] [place] [address] [place] [address] Lorene Branch, PLASTIC MANAGER 03/22/2024 9:00 AM UNEMPLOYMENT INSURANCE DIRECTOR Appointment [facility] [address] [place] [address] [place] [address] [place] [address] Lorene Branch, PLASTIC MANAGER 03/25/2024 9:15 AM UNEMPLOYMENT INSURANCE DIRECTOR Appointment [facility] [address] [place] [address] [place] [address] [place] [address] Lorene Branch, PLASTIC MANAGER 04/21/2024 11:20 AM UNEMPLOYMENT INSURANCE DIRECTOR Office Visit [facility] Family & Internal Medicine [facility] [address] [place] [phone] [place] [address] [place] [address] Scheduled Procedures Name Priority Associated Diagnoses Date/Ti me MANIPULATION SHOULDER Adhesive capsulitis of left shoulder 03/02/2024 12:27 PM UNEMPLOYMENT INSURANCE DIRECTOR INJECTION JOINT Adhesive capsulitis of left shoulder 03/02/2024 12:27 PM UNEMPLOYMENT INSURANCE DIRECTOR documented as of this encounter Visit Diagnoses Diagnosis Adhesive capsulitis of left shoulder- Primary Adhesive capsulitis of shoulder Adhesive capsulitis of left shoulder Adhesive capsulitis of shoulder documented in this encounter Additional Health Concerns Assessment Noted Time PHQ-9 Depression Total Score: 024 3:24 PM CDT documented as of this encounter Care Teams Sod Cutter Relationship Specialty [place] [address] [place] [address] PCP - General Physician Fruit Checker Medical 09/16/23 documented as of this encounter
--- OUTSIDE RECORDS SUMMARY | 2024-02-12 08:27 | XMS_ITS | Encounter Summary ---
Author Organization [facility] Address [facility]6 [facility] [place], [place] [id number] [place] [address] Care Team Providers Care Bindery Machine Setter Name Role Phone Holger Soriano Primary Care Provider [phone] Encounter Details Date Type Department Care Team [...] st Contact Info) Description 02/12/2024 9:00 AM TOOL ROOM ATTENDANT Appointment [facility]hab [address] [place], [place] [address] [place] [address] [place] [address] [place] [address] [place] [address] 02/12/2024 2:00 PM TOOL ROOM ATTENDANT Appointment [facility] MRI [address] [place] [address] [place] [address] [place] [address] 02/16/2024 9:00 AM TOOL ROOM ATTENDANT Appointment [facility] [address] [place] [address] [place] [address] [place] [address] [place] [address] [place] [address] 02/19/2024 8:45 AM TOOL ROOM ATTENDANT Appointment [facility] [address] [place] [address] [place] [address] [place] [address] [place] [address] [place] [address] 02/19/2024 9:00 AM TOOL ROOM ATTENDANT Appointment [facility] [address] [place] [address] [place] [address] [place] [address] [place] [address] [place] [address] 02/23/2024 9:00 AM TOOL ROOM ATTENDANT Appointment [facility] [address] [place] [address] [place] [address] [place] [address] [place] [address] [place] [address] 02/24/2024 1:30 PM TOOL ROOM ATTENDANT Appointment [facility] [address] [place] [address] [place] [address] [place] [address] 02/26/2024 9:00 AM TOOL ROOM ATTENDANT Appointment [facility] [address] [place] [address] [place] [address] [place] [address] [place] [address] [place] [address] 02/26/2024 9:15 AM TOOL ROOM ATTENDANT Appointment [facility] [address] [place] [address] [place] [address] [place] [address] [place] [address] [place] [address] 03/01/2024 9:00 AM TOOL ROOM ATTENDANT Appointment [facility] [address] [place] [address] [place] [address] [place] [address] [place] [address] [place] [address] Lorene Branch, RAM PRESS OPERATOR 03/02/2024 12:27 PM TOOL ROOM ATTENDANT Hospital Encounter [facility] Surgery [address] [place] [address] [place] [address] [place] [address] 03/02/2024 12:27 PM TOOL ROOM ATTENDANT - 03/02/2024 1:07 PM TOOL ROOM ATTENDANT Surgery [facility] Surgery [address] [place] [address] [place] [address] [place] [address] MANIPULATION SHOULDER 03/05/2024 9:00 AM TOOL ROOM ATTENDANT Appointment [facility] [address] [place] [address] [place] [address] [place] [address] Lorene Branch, RAM PRESS OPERATOR 03/08/2024 9:00 AM TOOL ROOM ATTENDANT Appointment [facility] [address] [place] [address] [place] [address] [place] [address] Lorene Branch, RAM PRESS OPERATOR 03/11/2024 9:15 AM TOOL ROOM ATTENDANT Appointment [facility] [address] [place] [address] [place] [address] [place] [address] Lorene Branch, RAM PRESS OPERATOR 03/15/2024 9:00 AM TOOL ROOM ATTENDANT Appointment [facility] [address] [place] [address] [place] [address] [place] [address] Lorene Branch, RAM PRESS OPERATOR 03/18/2024 9:15 AM TOOL ROOM ATTENDANT Appointment [facility] [address] [place] [address] [place] [address] [place] [address] Lorene Branch, RAM PRESS OPERATOR 03/22/2024 9:00 AM TOOL ROOM ATTENDANT Appointment [facility] [address] [place] [address] [place] [address] [place] [address] Lorene Branch, RAM PRESS OPERATOR 03/25/2024 9:15 AM TOOL ROOM ATTENDANT Appointment [facility] [address] [place] [address] [place] [address] [place] [address] Lorene Branch, RAM PRESS OPERATOR 04/21/2024 11:20 AM TOOL ROOM ATTENDANT Office Visit [facility] Family & Internal Medicine - [address] [address] [place] [address] [place] [address] Scheduled Procedures Name Priority Associated Diagnoses Date/Ti me MANIPULATION SHOULDER Adhesive capsulitis of left shoulder 03/02/2024 12:27 PM TOOL ROOM ATTENDANT INJECTION JOINT Adhesive capsulitis of left shoulder 03/02/2024 12:27 PM TOOL ROOM ATTENDANT documented as of this encounter Visit Diagnoses Not on filedocumented in this encounter Additional Health Concerns Assessment Noted Time PHQ-9 Depression Total Score: 024 3:24 PM CDT documented as of this encounter Care Teams Bindery Machine Setter Relationship Specialty [place] [address] [place] [address] PCP - General Physician Manager Operations Research Medical 09/16/23 documented as of this encounter
--- OUTSIDE RECORDS SUMMARY | 2024-02-12 08:28 | XMS_ITS | Encounter Summary ---
Author Organization [facility] Address [facility] [place] [address] [place] [address] Care Team Providers Care Automobile Repossessor Name Role Phone Holger Soriano Primary Care Provider [phone] Encounter Details Date Type Department Care Team (Late st Contact Info) Description 12/24/2023 Prep for Procedure [facility] Orthopedic Surgery [facility] [address] [address] [facility] [address] [place] [address] [place] [address] [place] [address] Social History Tobacco Use Types [...] Contact Info) Description 02/12/2024 9:00 AM SENIOR SECURITY ANALYST Appointment [facility] [address] [place] [address] [place] [address] [place] [address] [place] [address] [place] [address] 02/12/2024 2:00 PM SENIOR SECURITY ANALYST Appointment [facility] MRI [address] [place] [address] [place] [address] [place] [address] 02/16/2024 9:00 AM SENIOR SECURITY ANALYST Appointment [facility] [address] [place] [address] [place] [address] [place] [address] [place] [address] [place] [address] 02/19/2024 8:45 AM SENIOR SECURITY ANALYST Appointment [facility] [address] [place] [address] [place] [address] [place] [address] [place] [address] [place] [address] 02/19/2024 9:00 AM SENIOR SECURITY ANALYST Appointment [facility] [address] [place] [address] [place] [address] [place] [address] [place] [address] [place] [address] 02/23/2024 9:00 AM SENIOR SECURITY ANALYST Appointment [facility] [address] [place] [address] [place] [address] [place] [address] [place] [address] [place] [address] 02/24/2024 1:30 PM SENIOR SECURITY ANALYST Appointment [facility] MRI [address] [place] [address] [place] [address] [place] [address] 02/26/2024 9:00 AM SENIOR SECURITY ANALYST Appointment [facility] [address] [place] [address] [place] [address] [place] [address] [place] [address] [place] [address] 02/26/2024 9:15 AM SENIOR SECURITY ANALYST Appointment [facility] [address] [place] [address] [place] [address] [place] [address] [place] [address] [place] [address] 03/01/2024 9:00 AM SENIOR SECURITY ANALYST Appointment [facility] [address] [place] [address] [place] [address] [place] [address] [place] [address] [place] [address] Lorene Branch, SMOOTH PLATER 03/02/2024 12:27 PM SENIOR SECURITY ANALYST Hospital Encounter [facility] Surgery [address] [place] [address] [place] [address] [place] [address] 03/02/2024 12:27 PM SENIOR SECURITY ANALYST - 03/02/2024 1:07 PM SENIOR SECURITY ANALYST Surgery [facility] Surgery [address] [place] [address] [place] [address] [place] [address] MANIPULATION SHOULDER 03/05/2024 9:00 AM SENIOR SECURITY ANALYST Appointment [facility] [address] [place] [address] [place] [address] [place] [address] Lorene Branch, SMOOTH PLATER 03/08/2024 9:00 AM SENIOR SECURITY ANALYST Appointment [facility] [address] [place] [address] [place] [address] [place] [address] Lorene Branch, SMOOTH PLATER 03/11/2024 9:15 AM SENIOR SECURITY ANALYST Appointment [facility] [address] [place] [address] [place] [address] [place] [address] Lorene Branch, SMOOTH PLATER 03/15/2024 9:00 AM SENIOR SECURITY ANALYST Appointment [facility] [address] [place] [address] [place] [address] [place] [address] Lorene Branch, SMOOTH PLATER 03/18/2024 9:15 AM SENIOR SECURITY ANALYST Appointment [facility] [address] [place] [address] [place] [address] [place] [address] Lorene Branch, SMOOTH PLATER 03/22/2024 9:00 AM SENIOR SECURITY ANALYST Appointment [facility] [address] [place] [address] [place] [address] [place] [address] Lorene Branch, SMOOTH PLATER 03/25/2024 9:15 AM SENIOR SECURITY ANALYST Appointment [facility] [address] [place] [address] [place] [address] [place] [address] Jose CarlosLorene CAROLA Kennedy 04/21/2024 11:20 AM SENIOR SECURITY ANALYST Office Visit [facility] Medical Group Family & Internal Medicine [facility] [address] [place] [address] Holger Soriano, TYLER [address] [place] [address] Scheduled Procedures Name Priority Associated Diagnoses Date/Ti me MANIPULATION SHOULDER Adhesive capsulitis of left shoulder 03/02/2024 12:27 PM SENIOR SECURITY ANALYST INJECTION JOINT Adhesive capsulitis of left shoulder 03/02/2024 12:27 PM SENIOR SECURITY ANALYST documented as of this encounter Results * ECG 12 lead (12/29/2023 1:41 PM SENIOR SECURITY ANALYST) 12/29/2023 1:41 PM SENIOR SECURITY ANALYST Narrative [facility] RAD - 12/30/2023 8:20 AM SENIOR SECURITY ANALYST [facility] ? Test Date: ?2023-12-29 Pat Name: ? MARY LOU DOUBET ? Department: ?? 85 ? Room: ? Gender: ? Female ? Single End Sewer: ?? : ?1975 ? Requested By: IHSAN LOGAN Order Number: [id number] ? Reading MD: ?? Blue Paul ? Measurements Intervals ?[place] ? Rate: ? 80 ? P: ?49 KS: ? 200 ?QRS: ?25 QRSD: ? 83 ? T: ?80 QT: ? 373 ? QTc: ?432 ? Interpretive Statements SINUS RHYTHM LOW QRS VOLTAGE IN PRECORDIAL LEADS ??[QRS DEFLECTION < 1.0 mV IN CHEST LEADS] No previous ECG available for comparison OR SECURITY ANALYST Procedure Note Blue Paul MD - 12/30/2023 [facility] Test Date: 2023-12-29 Pat Name: [facility] Department: Room: Gender: Female Single End Sewer: : 1975 Requested By: IHSAN LOGAN Order Number: [id number] Reading MD: Blue Paul Measurements Intervals [place] Rate: 80 P: 49 KS: 200 QRS: 25 QRSD: 83 T: 80 QT: 373 QTc: 432 Interpretive Statements SINUS RHYTHM LOW QRS VOLTAGE IN PRECORDIAL LEADS [QRS DEFLECTION < 1.0 mV IN CHESTLEADS] No previous ECG available for comparison OR SECURITY ANALYST us Ihsan Logan DO ECG ORDERABLES Final Result [facility] ([facility]) [facility] documented in this encounter Visit Diagnoses Diagnosis Adhesive capsulitis of left shoulder- Primary Adhesive capsulitis of shoulder ART positive Other and unspecified nonspecific immunological findings Type 2 diabetes mellitus without complication, without long-term current use of insulin ([facility] HHS/HCC) Adhesive capsulitis of left shoulder Adhesive capsulitis of shoulder ART positive Other and unspecified nonspecific immunological findings Type 2 diabetes mellitus without complication, without long-term current use of insulin ([facility] HHS/HCC) Adhesive capsulitis of left shoulder Adhesive capsulitis of shoulder documented in this encounter Additional Health Concerns Assessment Noted Time PHQ-9 Depression Total Score: 24 024 3:24 PM CDT documented as of this encounter Care Teams Automobile Repossessor Relationship Specialty [place] [address] [place] [address] PCP - General Physician Service Unit Operator Medical 09/16/23 documented as of this encounter
--- OUTSIDE RECORDS SUMMARY | 2024-02-12 08:28 | XMS_ITS | Encounter Summary ---
Author Organization [facility] Address [facility]6 [facility]. [place], [place] [address] [place] [address] Care Team Providers Care Sonography Technologist Name Role Phone Holger Soriano Primary Care Provider [phone] Reason for Visit * Reason Comments Shoulder Pain * Physical Medicine (Urgent) - Authorized Specialty Diagnoses / Procedures Referred By Shmuel t Referred To Contact PHYSICAL THERAPY Diagnoses Left shoulder pain Low back pain Procedures OFFICE/OUTPATIENT NEW LOW MDM 30-44 MINUTES OFFICE/OUTPT VISIT,NEW,LEVL IV OFFICE/OUTPT VISIT,NEW,LEVL V OFFICE/OUTPT VISIT,EST,LEVL III OFFICE/OUTPT VISIT,EST,LEVL IV OFFICE/OUTPT VISIT,[place] [address] [place] [address] Phone: tel: fax: [facility] [address] [place] [address] Phone: tel: fax: Referral ID Status Reason Start Date Expiration Date Visits Requested Visits Authorized [id number] Authorized Physical Therapy 10/13/2023 11/11/2024 99 99 Encounter Details Date Type Department Care Team (Late st Contact Info) Description 12/23/2023 7:30 AM CDT - 12/23/2023 11:59 PM CDT Hospital Encounter [facility] [address] [place], [place] [id number] [place] [address] [place], [place] [phone] [place] [address] [place], [place] [id number] Shoulder Pain Discharge Disposition: Home or Self [...] exacerbated early Oct. 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[employer], [place], [place] Job Duties: Has help at work to lift things currently Subjective Note: Presents for trial of TDN. Scheduled for [place] January 07. 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 Cardio Equipment: HEP REVIEW LLLD PROM, AAROM Patient/Family Education: Home exercise program, Body mechanics Manual Therapy - 16691 Number of Minutes - 57753: 30 Myofascial Release: upper trap, levator L [...] Date Type Department Care Team (Late [facility]) Description 02/12/2024 9:00 AM APPLE TURNER Appointment [facility] [address] [place] [address] [place] [address] [place] [address] [place] [address] [place] [address] 02/12/2024 2:00 PM APPLE TURNER Appointment [facility] [address] [place] [address] [place] [address] 02/16/2024 9:00 AM APPLE TURNER Appointment [facility] [address] [place] [address] [place] [address] [place] [address] [place] [address] [place] [address] 02/19/2024 8:45 AM APPLE TURNER Appointment [facility] [address] [place] [address] [place] [address] [place] [address] [place] [address] [place] [address] 02/19/2024 9:00 AM APPLE TURNER Appointment [facility] [address] [place] [address] [place] [address] [place] [address] [place] [address] [place] [address] 02/23/2024 9:00 AM APPLE TURNER Appointment [facility] [address] [place] [address] [place] [address] [place] [address] [place] [address] [place] [address] 02/24/2024 1:30 PM APPLE TURNER Appointment [facility] [address] [place] [address] [place] [address] [place] [address] 02/26/2024 9:00 AM APPLE TURNER Appointment [facility] [address] [place] [address] [place] [address] [place] [address] [place] [address] [place] [address] 02/26/2024 9:15 AM APPLE TURNER Appointment [facility] [address] [place] [address] [place] [address] [place] [address] [place] [address] [place] [address] 03/01/2024 9:00 AM APPLE TURNER Appointment [facility] [address] [place] [address] [place] [address] [place] [address] [place] [address] [place] [address] Lorene Branch, ACADEMIC REGISTRAR 03/02/2024 12:27 PM APPLE TURNER Hospital Encounter [facility] [address] [place] [address] [place] [address] [place] [address] 03/02/2024 12:27 PM APPLE TURNER - 03/02/2024 1:07 PM APPLE TURNER Surgery [facility] [address] [place] [address] [place] [address] [place] [address] MANIPULATION SHOULDER 03/05/2024 9:00 AM APPLE TURNER Appointment [facility] [address] [place] [address] [place] [address] [place] [address] Lorene Branch, ACADEMIC REGISTRAR 03/08/2024 9:00 AM APPLE TURNER Appointment [facility] [address] [place] [address] [place] [address] [place] [address] Lorene Branch, ACADEMIC REGISTRAR 03/11/2024 9:15 AM APPLE TURNER Appointment [facility] [address] [place] [address] [place] [address] [place] [address] Lorene Branch, ACADEMIC REGISTRAR 03/15/2024 9:00 AM APPLE TURNER Appointment [facility] [address] [place] [address] [place] [address] [place] [address] Lorene Branch, ACADEMIC REGISTRAR 03/18/2024 9:15 AM APPLE TURNER Appointment [facility] [address] [place] [address] [place] [address] [place] [address] Lorene Branch, ACADEMIC REGISTRAR 03/22/2024 9:00 AM APPLE TURNER Appointment [facility] [address] [place] [address] [place] [address] [place] [address] Lorene Branch, ACADEMIC REGISTRAR 03/25/2024 9:15 AM APPLE TURNER Appointment [facility] [address] [place] [address] [place] [address] [place] [address] Lorene Branch, ACADEMIC REGISTRAR 04/21/2024 11:20 AM APPLE TURNER Office Visit [facility] Family & Internal Medicine - [place] [address] [place] [phone] [place] [address] [place], [place] [phone] Scheduled Procedures Name Priority Associated Diagnoses Date/Ti me MANIPULATION SHOULDER Adhesive capsulitis of left shoulder 03/02/2024 12:27 PM APPLE TURNER INJECTION JOINT Adhesive capsulitis of left shoulder 03/02/2024 12:27 PM APPLE TURNER documented as of this encounter Visit Diagnoses Diagnosis Left shoulder pain- Primary Pain in joint, shoulder region Adhesive capsulitis of left shoulder Adhesive capsulitis of shoulder documented in this encounter Additional Health Concerns Assessment Noted Time PHQ-9 Depression Total Score: 24 024 3:24 PM CDT documented as of this encounter Care Teams Sonography Technologist Relationship Specialty [place] [address] [place] [address] PCP - General Physician Mortgage Coordinator Medical 09/16/23 documented as of this encounter
--- OUTSIDE RECORDS SUMMARY | 2024-02-12 08:28 | XMS_ITS | Encounter Summary ---
Author Organization [facility] Address [facility]6 [facility]. [place], [place] [address] [place] [address] Care Team Providers Care Records Analysis Manager Name Role Phone Holger Soriano Primary Care Provider [phone] Reason for Visit * Reason Comments Shoulder Pain Back Pain * Physical Medicine (Urgent) - Authorized Specialty Diagnoses / Procedures Referred By Shmuel t Referred To Contact PHYSICAL THERAPY Diagnoses Left shoulder pain Low back pain Procedures OFFICE/OUTPATIENT NEW LOW MDM 30-44 MINUTES OFFICE/OUTPT VISIT,NEW,LEVL IV OFFICE/OUTPT VISIT,NEW,LEVL V OFFICE/OUTPT VISIT,EST,LEVL III OFFICE/OUTPT VISIT,EST,LEVL IV OFFICE/OUTPT VISIT,EST,[place] [address] [place] [address] Phone: tel: fax: [facility] [address] [place] [address] Phone: tel: fax: Referral ID Status Reason Start Date Expiration Date Visits Requested Visits Authorized [id number] Authorized Physical Therapy 10/13/2023 11/11/2024 99 99 Encounter Details Date Type Department Care Team (Latest Contact Info) Description 12/18/2023 9:26 AM CDT - 12/18/2023 11:59 PM CDT Hospital Encounter [facility] [address] [place], [place] [phone] [place] [address] [place] [address] [place] [address] [place] [address] Shoulder Pain; Back Pain Discharge Disposition: Home [...] complication, with long-term current use of insulin ([facility]/HCC [facility]/HCC) Take 1 tablet (4 mg total) by [...] exacerbated early Oct. 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 Also with MHP to L shoulder and low back for comfort Hot Pack - 29577: MHP to L shoulder and low back [...] st Contact Info) Description 02/12/2024 9:00 AM CONSUMER AFFAIRS MANAGER Appointment [facility] [address] [place], [place] [phone] [place] [address] [place] [address] [place] [address] [place], [place] [phone] 02/12/2024 2:00 PM CONSUMER AFFAIRS MANAGER Appointment [facility] [address] [place] [address] [place] [address] [place] [address] 02/16/2024 9:00 AM CONSUMER AFFAIRS MANAGER Appointment [facility] [address] [place] [address] [place] [address] [place] [address] [place] [address] [place] [address] 02/19/2024 8:45 AM CONSUMER AFFAIRS MANAGER Appointment [facility] [address] [place] [address] [place] [address] [place] [address] [place] [address] [place] [address] 02/19/2024 9:00 AM CONSUMER AFFAIRS MANAGER Appointment [facility] [address] [place] [address] [place] [address] [place] [address] [place] [address] [place] [address] 02/23/2024 9:00 AM CONSUMER AFFAIRS MANAGER Appointment [facility] [address] [place] [address] [place] [address] [place] [address] [place] [address] [place] [address] 02/24/2024 1:30 PM CONSUMER AFFAIRS MANAGER Appointment [facility] [address] [place] [address] Ihsan Logan, [address] [place] [address] 02/26/2024 9:00 AM CONSUMER AFFAIRS MANAGER Appointment [facility] [address] [place] [address] [place] [address] [place] [address] [place] [address] [place] [address] 02/26/2024 9:15 AM CONSUMER AFFAIRS MANAGER Appointment [facility] [address] [place] [address] [place] [address] [place] [address] [place] [address] [place] [address] 03/01/2024 9:00 AM CONSUMER AFFAIRS MANAGER Appointment [facility] [address] [place] [address] [place] [address] [place] [address] [place] [address] [place] [address] Lorene Branch, ARMOR OFFICER 03/02/2024 12:27 PM CONSUMER AFFAIRS MANAGER Hospital Encounter [facility] [address] [place] [address] [place] [address] [place] [address] 03/02/2024 12:27 PM CONSUMER AFFAIRS MANAGER - 03/02/2024 1:07 PM CONSUMER AFFAIRS MANAGER Surgery [facility] [address] [place] [address] [place] [address] [place] [address] MANIPULATION SHOULDER 03/05/2024 9:00 AM CONSUMER AFFAIRS MANAGER Appointment [facility] [address] [place] [address] [place] [address] [place] [address] Lorene Branch, ARMOR OFFICER 03/08/2024 9:00 AM CONSUMER AFFAIRS MANAGER Appointment [facility] [address] [place] [address] [place] [address] [place] [address] Lorene Branch, ARMOR OFFICER 03/11/2024 9:15 AM CONSUMER AFFAIRS MANAGER Appointment [facility] [address] [place] [address] [place] [address] [place] [address] Lorene Branch, ARMOR OFFICER 03/15/2024 9:00 AM CONSUMER AFFAIRS MANAGER Appointment [facility] [address] [place] [address] [place] [address] [place] [address] Lorene Branch, ARMOR OFFICER 03/18/2024 9:15 AM CONSUMER AFFAIRS MANAGER Appointment [facility] [address] [place] [address] [place] [address] [place] [address] Lorene Branch, ARMOR OFFICER 03/22/2024 9:00 AM CONSUMER AFFAIRS MANAGER Appointment [facility] [address] [place] [address] [place] [address] [place] [address] Lorene Branch, ARMOR OFFICER 03/25/2024 9:15 AM CONSUMER AFFAIRS MANAGER Appointment [facility] [address] [place] [address] [place] [address] [place] [address] Lorene Branch, ARMOR OFFICER 04/21/2024 11:20 AM CONSUMER AFFAIRS MANAGER Office Visit [facility] Family & Internal Medicine [address] [phone] [place] [address] [place] [address] Scheduled Procedures Name Priority Associated Diagnoses Date/Ti me MANIPULATION SHOULDER Adhesive capsulitis of left shoulder 03/02/2024 12:27 PM CONSUMER AFFAIRS MANAGER INJECTION JOINT Adhesive capsulitis of left shoulder 03/02/2024 12:27 PM CONSUMER AFFAIRS MANAGER documented as of this encounter Visit Diagnoses Diagnosis Left shoulder pain- Primary Pain in joint, shoulder region Adhesive capsulitis of left shoulder Adhesive capsulitis of shoulder documented in this encounter Additional Health Concerns Assessment Noted Time PHQ-9 Depression Total Score: 024 3:24 PM CDT documented as of this encounter Care Teams Records Analysis Manager Relationship Specialty [place] [address] [place] [address] PCP - General Physician Icu Nurse Medical 09/16/23 documented as of this encounter
--- OUTSIDE RECORDS SUMMARY | 2024-02-12 08:28 | XMS_ITS | Encounter Summary ---
Author Organization [facility] Address [facility]6 [facility]. [place], [place] [address] [place] [address] Care Team Providers Care Model Maker Apprentice Name Role Phone Holger Soriano Primary Care Provider [phone] Reason for Referral * Physical Medicine (Routine) - Canceled Specialty Diagnoses / Procedures Referred By Shmuel angel Referred To Contact PHYSICAL THERAPY Diagnoses Numbness and tingling in left arm Adhesive capsulitis of left shoulder Procedures OFFICE/OUTPATIENT NEW LOW MDM 30-44 MINUTES OFFICE/OUTPT VISIT,NEW,LEVL IV OFFICE/OUTPT VISIT,NEW,LEVL V OFFICE/OUTPT VISIT,EST,LEVL III OFFICE/OUTPT VISIT,EST,LEVL IV OFFICE/OUTPT VISIT,EST,[place] [address] [place] [address] Phone: tel: fax: [facility] [address] [place] [address] Phone: tel: fax: Referral ID Status Reason Start Date Expiration Date V isits Requested Visits Authorized [id number] Canceled Physical Therapy 12/22/2023 01/20/2025 1 1 [...] [place] [address] [place] [address] Phone: tel: fax: Referral ID Status Reason Start Date Expiration Date V isits Requested Visits Authorized [id number] Authorized 12/22/2023 12/21/2024 1 1 Reason for [...] V Marv Young, GRACE Phone: tel: fax: [facility] [address] [place] [address] Phone: tel: fax: Referral ID Status Reason Start Date Expiration Date Visits Requested Visits Authorized [id number] Authorized Specialty Services 07/05/2024 99 99 Encounter Details Date Type Department Care Team (Late st Contact Info) Description 12/22/2023 4:00 PM CDT Office Visit [facility] [address] [employer] [address] [place] [address] [place] [address] [place] [address] Follow Up (Left shoulder/neck pain) [...] Past Medical History: Diagnosis Date ADHD Asthma ([facility]/HCC) COPD (chronic obstructive pulmonary disease) ([facility]/HCC) History reviewed. No pertinent surgical [...] personal performance and is accurate and complete. FORM ATTENDANT documented in this encounter Plan of Treatment Upcoming Encounters Date Type Department Care Team (Late st Contact Info) Description 02/12/2024 9:00 AM PLATFORM ATTENDANT Appointment [facility] [address] [place] [address] [place] [address] [place] [address] [place] [address] [place] [address] 02/12/2024 2:00 PM PLATFORM ATTENDANT Appointment [facility] MRI [address] [place] [address] [place] [address] [place] [address] 02/16/2024 9:00 AM PLATFORM ATTENDANT Appointment [facility] [address] [place] [address] [place] [address] [place] [address] [place] [address] [place] [address] 02/19/2024 8:45 AM PLATFORM ATTENDANT Appointment [facility] [address] [place] [address] [place] [address] [place] [address] [place] [address] [place] [address] 02/19/2024 9:00 AM PLATFORM ATTENDANT Appointment [facility] [address] [place] [address] [place] [address] [place] [address] [place] [address] [place] [address] 02/23/2024 9:00 AM PLATFORM ATTENDANT Appointment [facility] [address] [place] [address] [place] [address] [place] [address] [place] [address] [place] [address] 02/24/2024 1:30 PM PLATFORM ATTENDANT Appointment [facility] MRI [address] [place] [address] [place] [address] [place] [address] 02/26/2024 9:00 AM PLATFORM ATTENDANT Appointment [facility] [address] [place] [address] [place] [address] [place] [address] [place] [address] [place] [address] 02/26/2024 9:15 AM PLATFORM ATTENDANT Appointment [facility] [address] [place] [address] [place] [address] [place] [address] [place] [address] [place] [address] 03/01/2024 9:00 AM PLATFORM ATTENDANT Appointment [facility] [address] [place] [address] [place] [address] [place] [address] [place] [address] [place] [address] Lorene Branch, TRANSPORTATION AGENT 03/02/2024 12:27 PM PLATFORM ATTENDANT Hospital Encounter [facility] Surgery [address] [place] [address] [place] [address] [place] [address] 03/02/2024 12:27 PM PLATFORM ATTENDANT - 03/02/2024 1:07 PM PLATFORM ATTENDANT Surgery [facility] [address] [place] [address] [place] [address] [place] [address] MANIPULATION SHOULDER 03/05/2024 9:00 AM PLATFORM ATTENDANT Appointment [facility] [address] [place] [address] [place] [address] [place] [address] Lorene Branch, TRANSPORTATION AGENT 03/08/2024 9:00 AM PLATFORM ATTENDANT Appointment [facility] [address] [place] [address] [place] [address] [place] [address] Lorene Branch, TRANSPORTATION AGENT 03/11/2024 9:15 AM PLATFORM ATTENDANT Appointment [facility] [address] [place] [address] [place] [address] [place] [address] Lorene Branch, TRANSPORTATION AGENT 03/15/2024 9:00 AM PLATFORM ATTENDANT Appointment [facility] [address] [place] [address] [place] [address] [place] [address] Lorene Branch, TRANSPORTATION AGENT 03/18/2024 9:15 AM PLATFORM ATTENDANT Appointment [facility] [address] [place] [address] [place] [address] [place] [address] Lorene Branch, TRANSPORTATION AGENT 03/22/2024 9:00 AM PLATFORM ATTENDANT Appointment [facility] [address] [place] [address] [place] [address] [place] [address] Lorene Branch, TRANSPORTATION AGENT 03/25/2024 9:15 AM PLATFORM ATTENDANT Appointment [facility] [address] [place] [address] [place] [address] [place] [address] Lorene Branch, TRANSPORTATION AGENT 04/21/2024 11:20 AM PLATFORM ATTENDANT Office Visit [facility] Family & Internal Medicine [facility] [address] [place] [phone] [place] [address] [place] [address] Scheduled Orders Name Type Priority Associated Diagnoses Orde r Schedule MRI LUMB SPINE WO CON MRI Routine Numbness and tingling in left arm Chronic low back pain, unspecified back pain laterality, unspecified whether sciatica present Expected: 12/22/2023, Expires: 12/21/2024 Scheduled Procedures Name Priority Associated Diagnoses Date/Ti me MANIPULATION SHOULDER Adhesive capsulitis of left shoulder 03/02/2024 12:27 PM PLATFORM ATTENDANT INJECTION JOINT Adhesive capsulitis of left shoulder 03/02/2024 12:27 PM PLATFORM ATTENDANT Scheduled Referrals Name Type Priority Associated Diagnoses [...] Rule Out 12/29/2023 12/29/2023 12/29/2023 12:59 PM PLATFORM ATTENDANT Assessment Noted Time PHQ-9 Depression Total Score: 024 3:24 PM CDT documented as of this encounter Care Teams Model Maker Apprentice Relationship Specialty [place] [address] [place] [address] PCP - General Physician Bacteriology Research Assistant Medical 09/16/23 documented as of this encounter
--- OUTSIDE RECORDS SUMMARY | 2024-02-12 08:28 | XMS_ITS | Encounter Summary ---
Author Organization [facility] Address [facility]. [place], [place] [address] [place] [address] Care Team Providers Care Wine Blender Name Role Phone Holger Soriano Primary Care Provider [phone] Encounter Details Date Type Department Care Team [...] st Contact Info) Description 02/12/2024 9:00 AM DROP SHIPMENT CLERK Appointment [facility] Outpatient Rehab [address] [place], [place] [id number] [place] [address] [place], [place] [id number] [place] [address] [place] [address] 02/12/2024 2:00 PM DROP SHIPMENT CLERK Appointment [facility] [place] [address] [place] [address] [place] [address] [place] [address] 02/16/2024 9:00 AM DROP SHIPMENT CLERK Appointment [facility] Outpatient Rehab [address] [place] [address] [place] [address] [place] [address] [place] [address] [place] [address] 02/19/2024 8:45 AM DROP SHIPMENT CLERK Appointment [facility] Outpatient Rehab [address] [place] [address] [place] [address] [place] [address] [place] [address] [place] [address] 02/19/2024 9:00 AM DROP SHIPMENT CLERK Appointment [facility] Outpatient Rehab [address] [place] [address] [place] [address] [place] [address] [place] [address] [place] [address] 02/23/2024 9:00 AM DROP SHIPMENT CLERK Appointment [facility] Outpatient [facility]hab [address] [place] [address] [place] [address] [place] [address] [place] [address] [place] [address] 02/24/2024 1:30 PM DROP SHIPMENT CLERK Appointment [facility] [place] [address] [place] [address] [place] [address] [place] [address] 02/26/2024 9:00 AM DROP SHIPMENT CLERK Appointment [facility] Outpatient Rehab [address] [place] [address] [place] [address] [place] [address] [place] [address] [place] [address] 02/26/2024 9:15 AM DROP SHIPMENT CLERK Appointment [facility]patient [facility]hab [address] [place] [address] [place] [address] [place] [address] [place] [address] [place] [address] 03/01/2024 9:00 AM DROP SHIPMENT CLERK Appointment [facility]patient [facility]hab [address] [place] [address] [place] [address] [place] [address] [place] [address] [place] [address] Lorene Branch, REINSPECTOR 03/02/2024 12:27 PM DROP SHIPMENT CLERK Hospital Encounter [facility] Surgery [address] [place] [address] [place] [address] [place] [address] 03/02/2024 12:27 PM DROP SHIPMENT CLERK - 03/02/2024 1:07 PM DROP SHIPMENT CLERK Surgery [facility] Surgery [address] [place] [address] [place] [address] [place] [address] MANIPULATION SHOULDER 03/05/2024 9:00 AM DROP SHIPMENT CLERK Appointment [facility] [address] [place] [address] [place] [address] [place] [address] Lorene Branch, REINSPECTOR 03/08/2024 9:00 AM DROP SHIPMENT CLERK Appointment [facility] [address] [place] [address] [place] [address] [place] [address] Lorene Branch, REINSPECTOR 03/11/2024 9:15 AM DROP SHIPMENT CLERK Appointment [facility] [address] [place] [address] [place] [address] [place] [address] Lorene Branch, REINSPECTOR 03/15/2024 9:00 AM DROP SHIPMENT CLERK Appointment [facility] [address] [place] [address] [place] [address] [place] [address] Lorene Branch, REINSPECTOR 03/18/2024 9:15 AM DROP SHIPMENT CLERK Appointment [facility] [address] [place] [address] [place] [address] [place] [address] Lorene Branch, REINSPECTOR 03/22/2024 9:00 AM DROP SHIPMENT CLERK Appointment [facility] [address] [place] [address] [place] [address] [place] [address] Lorene Branch, REINSPECTOR 03/25/2024 9:15 AM DROP SHIPMENT CLERK Appointment [facility] [address] [place] [address] [place] [address] [place] [address] Lorene Branch, REINSPECTOR 04/21/2024 11:20 AM DROP SHIPMENT CLERK Office Visit [facility] Family & Internal Medicine - [address] [address] [place] [address] [place] [address] Scheduled Procedures Name Priority Associated Diagnoses Date/Ti me MANIPULATION SHOULDER Adhesive capsulitis of left shoulder 03/02/2024 12:27 PM DROP SHIPMENT CLERK INJECTION JOINT Adhesive capsulitis of left shoulder 03/02/2024 12:27 PM DROP SHIPMENT CLERK documented as of this encounter Visit Diagnoses Not on filedocumented in this encounter Additional Health Concerns Infection Onset Date Last Indicated Resolved Time COVID-19 Rule Out 12/29/2023 12/29/2023 12/29/2023 12:59 PM DROP SHIPMENT CLERK Assessment Noted Time PHQ-9 Depression Total Score: 024 3:24 PM CDT documented as of this encounter Care Teams Wine Blender Relationship Specialty [place] [address] [place] [address] PCP - General Physician Administrative Support Technician Medical 09/16/23 documented as of this encounter
--- OUTSIDE RECORDS SUMMARY | 2024-02-12 08:28 | XMS_ITS | Encounter Summary ---
Author Organization [facility] Address [facility]6 [facility] [place] [address] [place] [address] Care Team Providers Care Insulator Tester Name Role Phone Holger Soriano Primary Care Provider [phone] Encounter Details Date Type Department Care Team [...] st Contact Info) Description 02/12/2024 9:00 AM FLEET ADMINISTRATOR Appointment [facility] Outpatient Rehab [address] [place] [address] [place] [address] [place] [address] [place] [address] [place], [place] [id number] 02/12/2024 2:00 PM FLEET ADMINISTRATOR Appointment [facility] MRI [address] [place] [address] [place] [address] [place] [address] 02/16/2024 9:00 AM FLEET ADMINISTRATOR Appointment [facility] Outpatient Rehab [address] [place] [address] [place] [address] [place] [address] [place] [address] [place] [address] 02/19/2024 8:45 AM FLEET ADMINISTRATOR Appointment [facility] Outpatient Rehab [address] [place] [address] [place] [address] [place] [address] [place] [address] [place] [address] 02/19/2024 9:00 AM FLEET ADMINISTRATOR Appointment [facility] Outpatient Rehab [address] [place] [address] [place] [address] [place] [address] [place] [address] [place] [address] 02/23/2024 9:00 AM FLEET ADMINISTRATOR Appointment [facility] Outpatient Rehab [address] [place] [address] [place] [address] [place] [address] [place] [address] [place] [address] 02/24/2024 1:30 PM FLEET ADMINISTRATOR Appointment [facility] [address] [place] [address] [place] [address] [place] [address] 02/26/2024 9:00 AM FLEET ADMINISTRATOR Appointment [facility] Outpatient Rehab [address] [place] [address] [place] [address] [place] [address] [place] [address] [place] [address] 02/26/2024 9:15 AM FLEET ADMINISTRATOR Appointment [facility] Outpatient Rehab [address] [place] [address] [place] [address] [place] [address] [place] [address] [place] [address] 03/01/2024 9:00 AM FLEET ADMINISTRATOR Appointment [facility] Outpatient Rehab [address] [place] [address] [place] [address] [place] [address] [place] [address] [place] [address] Lorene Branch, SHAPER AND PRESSER 03/02/2024 12:27 PM FLEET ADMINISTRATOR Hospital Encounter [facility] [id number] [place] [address] [place] [address] [place] [address] 03/02/2024 12:27 PM FLEET ADMINISTRATOR - 03/02/2024 1:07 PM FLEET ADMINISTRATOR Surgery [address] [address] [place] [address] [place] [address] MANIPULATION SHOULDER 03/05/2024 9:00 AM FLEET ADMINISTRATOR Appointment [facility] Outpatient Rehab [address] [place] [address] [place] [address] [place] [address] Lorene Branch, SHAPER AND PRESSER 03/08/2024 9:00 AM FLEET ADMINISTRATOR Appointment [facility] Outpatient Rehab [address] [place] [address] [place] [address] [place] [address] Lorene Branch, SHAPER AND PRESSER 03/11/2024 9:15 AM FLEET ADMINISTRATOR Appointment [facility] Outpatient Rehab [address] [place] [address] [place] [address] [place] [address] Lorene Branch, SHAPER AND PRESSER 03/15/2024 9:00 AM FLEET ADMINISTRATOR Appointment [facility] [address] [place] [address] [place] [address] [place] [address] Lorene Branch, SHAPER AND PRESSER 03/18/2024 9:15 AM FLEET ADMINISTRATOR Appointment [facility] [address] [place] [address] [place] [address] [place] [address] Lorene Branch, SHAPER AND PRESSER 03/22/2024 9:00 AM FLEET ADMINISTRATOR Appointment [facility] [address] [place] [address] [place] [address] [place] [address] Lorene Branch, SHAPER AND PRESSER 03/25/2024 9:15 AM FLEET ADMINISTRATOR Appointment [facility] [address] [place] [address] [place] [address] [place] [address] Lorene Branch, SHAPER AND PRESSER 04/21/2024 11:20 AM FLEET ADMINISTRATOR Office Visit [facility] Family & Internal Medicine - [address] [address] [place] [address] [place] [address] Scheduled Procedures Name Priority Associated Diagnoses Date/Ti me MANIPULATION SHOULDER Adhesive capsulitis of left shoulder 03/02/2024 12:27 PM FLEET ADMINISTRATOR INJECTION JOINT Adhesive capsulitis of left shoulder 03/02/2024 12:27 PM FLEET ADMINISTRATOR documented as of this encounter Visit Diagnoses Not on filedocumented in this encounter Additional Health Concerns Assessment Noted Time PHQ-9 Depression Total Score: 024 3:24 PM CDT documented as of this encounter Care Teams Insulator Tester Relationship Specialty [place] [address] [place] [address] PCP - General Physician Dandy Tender Medical 09/16/23 documented as of this encounter
--- OUTSIDE RECORDS SUMMARY | 2024-02-12 08:28 | XMS_ITS | Encounter Summary ---
Author Organization [facility] Address [facility]6 [facility] [place] [address] [place] [address] Care Team Providers Care Senior Technical Support Engineer Name Role Phone Holger Soriano Primary Care Provider [phone] Encounter Details Date Type Department Care Team [...] st Contact Info) Description 02/12/2024 9:00 AM CONTROL MANAGER Appointment [facility] Outpatient Rehab [address] [place] [address] [place] [address] [place] [address] [place] [address] [place], [place] [id number] 02/12/2024 2:00 PM CONTROL MANAGER Appointment [facility] MRI [address] [place] [address] [place] [address] [place] [address] 02/16/2024 9:00 AM CONTROL MANAGER Appointment [facility] Outpatient Rehab [address] [place] [address] [place] [address] [place] [address] [place] [address] [place] [address] 02/19/2024 8:45 AM CONTROL MANAGER Appointment [facility] Outpatient Rehab [address] [place] [address] [place] [address] [place] [address] [place] [address] [place] [address] 02/19/2024 9:00 AM CONTROL MANAGER Appointment [facility] Outpatient Rehab [address] [place] [address] [place] [address] [place] [address] [place] [address] [place] [address] 02/23/2024 9:00 AM CONTROL MANAGER Appointment [facility] Outpatient Rehab [address] [place] [address] [place] [address] [place] [address] [place] [address] [place] [address] 02/24/2024 1:30 PM CONTROL MANAGER Appointment [facility] [address] [place] [address] [place] [address] [place] [address] 02/26/2024 9:00 AM CONTROL MANAGER Appointment [facility] Outpatient Rehab [address] [place] [address] [place] [address] [place] [address] [place] [address] [place] [address] 02/26/2024 9:15 AM CONTROL MANAGER Appointment [facility] Outpatient Rehab [address] [place] [address] [place] [address] [place] [address] [place] [address] [place] [address] 03/01/2024 9:00 AM CONTROL MANAGER Appointment [facility] Outpatient Rehab [address] [place] [address] [place] [address] [place] [address] [place] [address] [place] [address] Lorene Branch, FINANCE LEAD 03/02/2024 12:27 PM CONTROL MANAGER Hospital Encounter [facility] [address] [place] [address] [place] [address] [place] [address] 03/02/2024 12:27 PM CONTROL MANAGER - 03/02/2024 1:07 PM CONTROL MANAGER Surgery [address] [address] [place] [address] [place] [address] MANIPULATION SHOULDER 03/05/2024 9:00 AM CONTROL MANAGER Appointment [facility] Outpatient Rehab [address] [place] [address] [place] [address] [place] [address] Lorene Branch, FINANCE LEAD 03/08/2024 9:00 AM CONTROL MANAGER Appointment [facility] Outpatient Rehab [address] [place] [address] [place] [address] [place] [address] Lorene Branch, FINANCE LEAD 03/11/2024 9:15 AM CONTROL MANAGER Appointment [facility] Outpatient Rehab [address] [place] [address] [place] [address] [place] [address] Lorene Branch, FINANCE LEAD 03/15/2024 9:00 AM CONTROL MANAGER Appointment [facility] [address] [place] [address] [place] [address] [place] [address] Lorene Branch, FINANCE LEAD 03/18/2024 9:15 AM CONTROL MANAGER Appointment [facility] [address] [place] [address] [place] [address] [place] [address] Lorene Branch, FINANCE LEAD 03/22/2024 9:00 AM CONTROL MANAGER Appointment [facility] [address] [place] [address] [place] [address] [place] [address] Lorene Branch, FINANCE LEAD 03/25/2024 9:15 AM CONTROL MANAGER Appointment [facility] [address] [place] [address] [place] [address] [place] [address] Lorene Branch, FINANCE LEAD 04/21/2024 11:20 AM CONTROL MANAGER Office Visit [facility] Family & Internal Medicine - [address] [address] [place] [address] [place] [address] Scheduled Procedures Name Priority Associated Diagnoses Date/Ti me MANIPULATION SHOULDER Adhesive capsulitis of left shoulder 03/02/2024 12:27 PM CONTROL MANAGER INJECTION JOINT Adhesive capsulitis of left shoulder 03/02/2024 12:27 PM CONTROL MANAGER documented as of this encounter Visit Diagnoses Not on filedocumented in this encounter Additional Health Concerns Assessment Noted Time PHQ-9 Depression Total Score: 024 3:24 PM CDT documented as of this encounter Care Teams Senior Technical Support Engineer Relationship Specialty [place] [address] [place] [address] PCP - General Physician Inorganic Chemistry Professor Medical 09/16/23 documented as of this encounter
--- OUTSIDE RECORDS SUMMARY | 2024-02-12 08:28 | XMS_ITS | Encounter Summary ---
Author Organization [facility] Address [facility]. [place], [place] [address] [place] [address] Care Team Providers Care Assistant Plant Controller Name Role Phone Holger Soriano Primary Care Provider [phone] Reason for Referral * Consultation/Treatment (Routine) - New Request Specialty Diagnoses / Procedures Referred By Contac t Referred To Contact PAIN MANAGEMENT / [facility] Pain Management Diagnoses Chronic left shoulder pain Procedures OFFICE/OUTPATIENT NEW LOW MDM 30-44 MINUTES OFFICE/OUTPT VISIT,NEW,LEVL IV OFFICE/OUTPT VISIT,NEW,LEVL V OFFICE/OUTPT VISIT,EST,LEVL III OFFICE/OUTPT VISIT,EST,LEVL IV OFFICE/OUTPT VISIT,[place] [address] [place] [address] Phone: tel: fax: Lor Welch MD [facility] [address] [place] [address] Phone: tel: fax: Referral ID Status Reason Start Date Expiration Date Visits Requested Visits Authorized [id number] New Request Specialty Services 12/21/2024 1 1 * Surgical (Routine) - Authorized Specialty Diagnoses / Procedures Referred By Contac t Referred To Contact SURGERY Diagnoses Encounter for screening colonoscopy Rectal prolapse Procedures OFFICE/OUTPATIENT NEW LOW MDM 30-44 MINUTES OFFICE/OUTPT VISIT,NEW,LEVL IV OFFICE/OUTPT VISIT,NEW,LEVL V OFFICE/OUTPT VISIT,EST,LEVL III OFFICE/OUTPT VISIT,EST,LEVL IV OFFICE/OUTPT VISIT,EST[place] [address] [place] [address] Phone: tel: [place]: [place] [address] [facility] [address] [place] [address] Phone: tel: fax: Referral ID Status Reason Start Date Expiration Date V isits Requested Visits Authorized [id number] Authorized 12/22/2023 01/21/2025 99 99 Reason for Visit * Reason Comments Follow Up 3 month follow up Diabetes Encounter Details Date Type Department Care Team (Late st Contact Info) Description 12/22/2023 2:20 PM CDT Office Visit [facility] Medical Group Family & Internal Medicine [facility] [address] [place] [phone] [place] [address] [place] [address] Follow Up (3 month follow up); Diabetes [...] Past Medical History: Diagnosis Date ADHD Asthma ([facility]) COPD (chronic obstructive pulmonary disease) ([facility]) History reviewed. No pertinent surgical history. Social [...] complication, without long-term current use of insulin ([facility]) A1C (BACK OFFICE) COLLECT.CAPILLARY (FNGR,HEEL,EAR) 2. Encounter [...] st Contact Info) Description 02/12/2024 9:00 AM DESPATCHING AND RECEIVING CLERK Appointment [facility] Outpatient Rehab [address] [place] [address] [place] [address] [place] [address] [place] [address] [place] [address] 02/12/2024 2:00 PM DESPATCHING AND RECEIVING CLERK Appointment [facility] [place] [address] [place] [address] [place] [address] [place] [address] 02/16/2024 9:00 AM DESPATCHING AND RECEIVING CLERK Appointment [facility] Outpatient Rehab [address] [place] [address] [place] [address] [place] [address] [place] [address] [place] [address] 02/19/2024 8:45 AM DESPATCHING AND RECEIVING CLERK Appointment [facility] Outpatient Rehab [address] [place] [address] [place] [address] [place] [address] [place] [address] [place] [address] 02/19/2024 9:00 AM DESPATCHING AND RECEIVING CLERK Appointment [facility] Outpatient Rehab [address] [place] [address] [place] [address] [place] [address] [place] [address] [place] [address] 02/23/2024 9:00 AM DESPATCHING AND RECEIVING CLERK Appointment [facility] Outpatient Rehab [address] [place] [address] [place] [address] [place] [address] [place] [address] [place] [address] 02/24/2024 1:30 PM DESPATCHING AND RECEIVING CLERK Appointment [facility] [place] [address] [place] [address] Ihsan Logan, [address] [place] [address] 02/26/2024 9:00 AM DESPATCHING AND RECEIVING CLERK Appointment [facility] Outpatient Rehab [id number] [place] [address] [place] [address] [place] [address] [place] [address] [place] [address] 02/26/2024 9:15 AM DESPATCHING AND RECEIVING CLERK Appointment [facility] Outpatient Rehab [address] [place] [address] [place] [address] [place] [address] [place] [address] [place] [address] 03/01/2024 9:00 AM DESPATCHING AND RECEIVING CLERK Appointment [facility] Outpatient Rehab [address] [place] [address] [place] [address] [place] [address] [place] [address] [place] [address] Lorene Branch, HOME CHILD CARE PROVIDER 03/02/2024 12:27 PM DESPATCHING AND RECEIVING CLERK Hospital Encounter [facility] [address] [place] [address] [place] [address] [place] [address] 03/02/2024 12:27 PM DESPATCHING AND RECEIVING CLERK - 03/02/2024 1:07 PM DESPATCHING AND RECEIVING CLERK Surgery [facility] [address] [place] [address] [place] [address] [place] [address] MANIPULATION SHOULDER 03/05/2024 9:00 AM DESPATCHING AND RECEIVING CLERK Appointment [facility] Outpatient Rehab [address] [place] [address] [place] [address] [place] [address] Lorene Branch, HOME CHILD CARE PROVIDER 03/08/2024 9:00 AM DESPATCHING AND RECEIVING CLERK Appointment [facility] Outpatient [facility]hab [address] [place] [address] [place] [address] [place] [address] Lorene Branch, HOME CHILD CARE PROVIDER 03/11/2024 9:15 AM DESPATCHING AND RECEIVING CLERK Appointment [facility]patient [facility]hab [address] [place] [address] [place] [address] [place] [address] Lorene Branch, HOME CHILD CARE PROVIDER 03/15/2024 9:00 AM DESPATCHING AND RECEIVING CLERK Appointment [facility]patient [facility]hab [address] [place] [address] [place] [address] [place] [address] Lorene Branch, HOME CHILD CARE PROVIDER 03/18/2024 9:15 AM DESPATCHING AND RECEIVING CLERK Appointment [facility] Outpatient [facility]hab [address] [place] [address] [place] [address] [place] [address] Lorene Branch, HOME CHILD CARE PROVIDER 03/22/2024 9:00 AM DESPATCHING AND RECEIVING CLERK Appointment [facility] Outpatient [facility]hab [address] [place] [address] [place] [address] [place] [address] Lorene Branch, HOME CHILD CARE PROVIDER 03/25/2024 9:15 AM DESPATCHING AND RECEIVING CLERK Appointment [facility] [address] [place] [address] [place] [address] [place] [address] Lorene Branch, HOME CHILD CARE PROVIDER 04/21/2024 11:20 AM DESPATCHING AND RECEIVING CLERK Office Visit [facility] Medical Group Family & Internal Medicine [address] [phone] [place] [address] [place], [place] [phone] Scheduled Procedures Name Priority Associated Diagnoses Date/Ti me MANIPULATION SHOULDER Adhesive capsulitis of left shoulder 03/02/2024 12:27 PM DESPATCHING AND RECEIVING CLERK INJECTION JOINT Adhesive capsulitis of left shoulder 03/02/2024 12:27 PM DESPATCHING AND RECEIVING CLERK Scheduled Referrals Name Type Priority Associated Diagnoses [...] complication, without long-term current use of insulin ([facility]) HEMOGLOBIN, GLYCOSYLATED Routine 12/22/2023 Type 2 diabetes mellitus without complication, without long-term current use of insulin ([facility]) documented in this encounter Results * A1C (BACK OFFICE) (12/22/2023) HGB A1C 5.2 % [id number] T [facility] 12/22/2023 us Holger [facility] Final Result Performing Organization Address City/[facility]/ZIP Co de Phone Number [phone] [facility] [address] [place] [address], documented in this encounter Visit Diagnoses Diagnosis Type 2 diabetes mellitus without complication, without long-term current use of insulin ([facility])- Primary Encounter for screening colonoscopy Special screening [...] as of this encounter Care Teams Assistant Plant Controller Relationship Specialty [place] [address] [place] [address] PCP - General Physician [place] Worker Medical 09/16/23 documented as of this encounter
--- OUTSIDE RECORDS SUMMARY | 2024-02-12 08:28 | XMS_ITS | Encounter Summary ---
Author Organization [facility] Address [facility] [place] [address] [place] [address] Care Team Providers Care Director It Name Role Phone Holger Soriano Primary Care Provider Encounter Details Date Type Department Care Team (Latest Contact Info) Description 12/29/2023 1:33 PM ENVELOPE SEALER OPERATOR - 12/29/2023 11:59 PM [facility] Hospital Encounter [facility] Cardiopulmonary Services [address] [place], [place] [id number] [place] [address] [place] [address] Discharge Disposition: Home or Self [...] st Contact Info) Description 02/12/2024 9:00 AM ENVELOPE SEALER OPERATOR Appointment [facility] Outpatient Rehab [address] [place] [address] [place] [address] [place] [address] [place] [address] [place] [address] 02/12/2024 2:00 PM ENVELOPE SEALER OPERATOR Appointment [facility] [place] [address] [place] [address] [place] [address] [place] [address] 02/16/2024 9:00 AM ENVELOPE SEALER OPERATOR Appointment [facility] Outpatient Rehab [address] [place] [address] [place] [address] [place] [address] [place] [address] [place] [address] 02/19/2024 8:45 AM ENVELOPE SEALER OPERATOR Appointment [facility] Outpatient Rehab [address] [place] [address] [place] [address] [place] [address] [place] [address] [place] [address] 02/19/2024 9:00 AM ENVELOPE SEALER OPERATOR Appointment [facility] Outpatient Rehab [address] [place] [address] [place] [address] [place] [address] [place] [address] [place] [address] 02/23/2024 9:00 AM ENVELOPE SEALER OPERATOR App[facility]ment [facility] [address] [place] [address] [place] [address] [place] [address] [place] [address] [place] [address] 02/24/2024 1:30 PM ENVELOPE SEALER OPERATOR Appointment [facility] [address] [place] [address] Ihsan LoganDO [address] [place] [address] 02/26/2024 9:00 AM ENVELOPE SEALER OPERATOR Appointment [facility] Outpatient Rehab [address] [place] [address] [place] [address] [place] [address] [place] [address] [place] [address] 02/26/2024 9:15 AM ENVELOPE SEALER OPERATOR Appointment [facility] Outpatient Rehab [address] [place] [address] [place] [address] [place] [address] [place] [address] [place] [address] 03/01/2024 9:00 AM ENVELOPE SEALER OPERATOR Appointment [facility] Outpatient Rehab [address] [place] [address] [place] [address] [place] [address] [place] [address] [place] [address] Lorene Branch, WINDOWS SYSTEMS ADMINISTRATOR 03/02/2024 12:27 PM ENVELOPE SEALER OPERATOR Hospital Encounter [facility] [address] [place] [address] [place] [address] [place] [address] 03/02/2024 12:27 PM ENVELOPE SEALER OPERATOR - 03/02/2024 1:07 PM ENVELOPE SEALER OPERATOR Surgery [facility] [address] [place] [address] [place] [address] [place] [address] MANIPULATION SHOULDER 03/05/2024 9:00 AM ENVELOPE SEALER OPERATOR Appointment [facility] Outpatient Rehab [address] [place] [address] [place] [address] [place] [address] Lorene Branch, WINDOWS SYSTEMS ADMINISTRATOR 03/08/2024 9:00 AM ENVELOPE SEALER OPERATOR Appointment [facility] Outpatient Rehab [address] [place] [address] [place] [address] [place] [address] Lorene Branch, WINDOWS SYSTEMS ADMINISTRATOR 03/11/2024 9:15 AM ENVELOPE SEALER OPERATOR Appointment [facility] Outpatient Rehab [address] [place] [address] [place] [address] [place] [address] Lorene Branch, WINDOWS SYSTEMS ADMINISTRATOR 03/15/2024 9:00 AM ENVELOPE SEALER OPERATOR Appointment [facility] Outpatient [facility]hab [address] [place] [address] [place] [address] [place] [address] Lorene Branch, WINDOWS SYSTEMS ADMINISTRATOR 03/18/2024 9:15 AM ENVELOPE SEALER OPERATOR Appointment [facility] Outpatient [facility]hab [address] [place] [address] [place] [address] [place] [address] Lorene Branch, WINDOWS SYSTEMS ADMINISTRATOR 03/22/2024 9:00 AM ENVELOPE SEALER OPERATOR Appointment [facility] Outpatient [facility]hab [address] [place] [address] [place] [address] [place] [address] Lorene Branch, WINDOWS SYSTEMS ADMINISTRATOR 03/25/2024 9:15 AM ENVELOPE SEALER OPERATOR Appointment [facility] Outpatient [facility]hab [address] [place] [address] [place] [address] [place] [address] Lorene Branch, WINDOWS SYSTEMS ADMINISTRATOR 04/21/2024 11:20 AM ENVELOPE SEALER OPERATOR Office Visit [facility] Medical Group Family & Internal Medicine [address] [phone] [place] [address] [place] [address] Scheduled Procedures Name Priority Associated Diagnoses Date/Ti me MANIPULATION SHOULDER Adhesive capsulitis of left shoulder 03/02/2024 12:27 PM ENVELOPE SEALER OPERATOR INJECTION JOINT Adhesive capsulitis of left shoulder 03/02/2024 12:27 PM ENVELOPE SEALER OPERATOR documented as of this encounter Procedures Procedure Name Priority Date/Time Associated Diagnosis Comments ECG 12-LEAD Routine 12/29/2023 1:41 PM ENVELOPE SEALER OPERATOR Adhesive capsulitis of left shoulder ART positive Type 2 diabetes mellitus without complication, without long-term current use of insulin ([facility]) documented in this encounter Results * ECG 12 lead (12/29/2023 1:41 PM ENVELOPE SEALER OPERATOR) 12/29/2023 1:41 PM ENVELOPE SEALER OPERATOR Narrative [facility]) RAD - 12/30/2023 8:20 AM ENVELOPE SEALER OPERATOR ?[facility] ? Test Date: ?2023-12-29 Pat Name: ? OUMOU DOUBET ? Department: ?? 85 ? Room: ? Gender: ? Female ? Carpet Tile Layer: ?? : ?1975 ? Requested By: IHSAN LOGNA Order Number: [id number] ? Reading : ?? Blue Paul ? Measurements Intervals ?Runge ? Rate: ? 80 ? P: ?49 UT: ? 200 ?QRS: ?25 QRSD: ? 83 ? T: ?80 QT: ? 373 ? QTc: ?432 ? Interpretive Statements SINUS RHYTHM LOW QRS VOLTAGE IN PRECORDIAL LEADS ??[QRS DEFLECTION < 1.0 mV IN CHEST LEADS] No previous ECG available for comparison LOPE SEALER OPERATOR Procedure Note Blue Paul MD - 12/30/[facility]23 [facility]: 2023-12-29 Pat Name: OUMOU MIDDLETON Department: 85 Room: Gender: Female Carpet Tile Layer: : 1975 Requested By: IHSAN LOGAN Order Number: [id number] Loreta MD: Blue Paul Measurements Intervals Runge Rate: 80 P: 49 UT: 200 QRS: 25 QRSD: 83 T: 80 QT: 373 QTc: 432 Interpretive Statements SINUS RHYTHM LOW QRS VOLTAGE IN PRECORDIAL LEADS [QRS DEFLECTION < 1.0 mV IN CHESTLEADS] No previous ECG available for comparison LOPE SEALER OPERATOR us Ihsan Logan DO ECG ORDERABLES Final Result [facility] ([facility]) [facility] documented in this encounter Visit Diagnoses Diagnosis Adhesive capsulitis of left shoulder Adhesive capsulitis of shoulder ART positive Other and unspecified nonspecific immunological findings Type 2 diabetes mellitus without complication, without long-term current use of insulin ([facility]) Adhesive capsulitis of left shoulder Adhesive capsulitis of shoulder documented in this encounter Additional Health Concerns Assessment Noted Time PHQ-9 Depression Total Score: 24 024 3:24 PM CDT documented as of this encounter Care Teams Director It Relationship Specialty [place] [address] [place] [address] PCP - General Physician [employer] Worker Medical 09/16/23 documented as of this encounter
--- OUTSIDE RECORDS SUMMARY | 2024-02-12 08:28 | XMS_ITS | Encounter Summary ---
Author Organization [facility] Address [facility] [place] [address] [place] [address] Care Team Providers Care Needle Grinder Name Role Phone Holger Soriano Primary Care Provider [phone] Encounter Details Date Type Department Care Team [...] st Contact Info) Description 02/12/2024 9:00 AM CORK MIXER Appointment [facility] Outpatient Rehab [address] [place] [address] [place] [address] [place] [address] [place] [address] [place], [place] [address] 02/12/2024 2:00 PM CORK MIXER Appointment [facility] MRI [address] [place] [address] [place] [address] [place] [address] 02/16/2024 9:00 AM CORK MIXER Appointment [facility] Outpatient Rehab [address] [place] [address] [place] [address] [place] [address] [place] [address] [place] [address] 02/19/2024 8:45 AM CORK MIXER Appointment [facility] Outpatient Rehab [address] [place] [address] [place] [address] [place] [address] [place] [address] [place] [address] 02/19/2024 9:00 AM CORK MIXER Appointment [facility] Outpatient Rehab [address] [place] [address] [place] [address] [place] [address] [place] [address] [place] [address] 02/23/2024 9:00 AM CORK MIXER Appointment [facility] Outpatient Rehab [address] [place] [address] [place] [address] [place] [address] [place] [address] [place] [address] 02/24/2024 1:30 PM CORK MIXER Appointment [facility] [address] [place] [address] [place] [address] [place] [address] 02/26/2024 9:00 AM CORK MIXER Appointment [facility] Outpatient Rehab [address] [place] [address] [place] [address] [place] [address] [place] [address] [place] [address] 02/26/2024 9:15 AM CORK MIXER Appointment [facility] Outpatient Rehab [address] [place] [address] [place] [address] [place] [address] [place] [address] [place] [address] 03/01/2024 9:00 AM CORK MIXER Appointment [facility] Outpatient Rehab [address] [place] [address] [place] [address] [place] [address] [place] [address] [place] [address] Lorene Branch, HELPDESK ADMINISTRATOR 03/02/2024 12:27 PM CORK MIXER Hospital Encounter [facility] [address] [place] [address] [place] [address] [place] [address] 03/02/2024 12:27 PM CORK MIXER - 03/02/2024 1:07 PM CORK MIXER Surgery [address] [address] [place] [address] [place] [address] MANIPULATION SHOULDER 03/05/2024 9:00 AM CORK MIXER Appointment [facility] Outpatient Rehab [address] [place] [address] [place] [address] [place] [address] Lorene Branch, HELPDESK ADMINISTRATOR 03/08/2024 9:00 AM CORK MIXER Appointment [facility] Outpatient [facility]hab [address] [place] [address] [place] [address] [place] [address] Lorene Branch, HELPDESK ADMINISTRATOR 03/11/2024 9:15 AM CORK MIXER Appointment [facility] Outpatient [facility]hab [address] [place] [address] [place] [address] [place] [address] Lorene Branch, HELPDESK ADMINISTRATOR 03/15/2024 9:00 AM CORK MIXER Appointment [facility] [address] [place] [address] [place] [address] [place] [address] Lorene Branch, HELPDESK ADMINISTRATOR 03/18/2024 9:15 AM CORK MIXER Appointment [facility] [address] [place] [address] [place] [address] [place] [address] Lorene Branch, HELPDESK ADMINISTRATOR 03/22/2024 9:00 AM CORK MIXER Appointment [facility] [address] [place] [address] [place] [address] [place] [address] Lorene Branch, HELPDESK ADMINISTRATOR 03/25/2024 9:15 AM CORK MIXER Appointment [facility] [address] [place] [address] [place] [address] [place] [address] Lorene Branch, HELPDESK ADMINISTRATOR 04/21/2024 11:20 AM CORK MIXER Office Visit [facility] Medical Group Family & Internal Medicine - [address] [address] [place] [address] [place] [address] Scheduled Procedures Name Priority Associated Diagnoses Date/Ti me MANIPULATION SHOULDER Adhesive capsulitis of left shoulder 03/02/2024 12:27 PM CORK MIXER INJECTION JOINT Adhesive capsulitis of left shoulder 03/02/2024 12:27 PM CORK MIXER documented as of this encounter Visit Diagnoses Not on filedocumented in this encounter Additional Health Concerns Assessment Noted Time PHQ-9 Depression Total Score: 024 3:24 PM CDT documented as of this encounter Care Teams Needle Grinder Relationship Specialty [place] [address] [place] [address] PCP - General Physician Interventional Tech Medical 09/16/23 documented as of this encounter
--- OUTSIDE RECORDS SUMMARY | 2024-02-12 08:28 | XMS_ITS | Encounter Summary ---
Author Organization [facility] Address [facility]. [place], [place] [address] [place] [address] Care Team Providers Care Certified Forklift Operator Name Role Phone Holger Soriano Primary Care Provider [phone] Reason for Visit * Reason Comments Shoulder Pain * Physical Medicine (Urgent) - Authorized Specialty Diagnoses / Procedures Referred By Contac t Referred To Contact PHYSICAL THERAPY Diagnoses Left shoulder pain Low back pain Procedures OFFICE/OUTPATIENT NEW LOW MDM 30-44 MINUTES OFFICE/OUTPT VISIT,NEW,LEVL IV OFFICE/OUTPT VISIT,NEW,LEVL V OFFICE/OUTPT VISIT,EST,LEVL III OFFICE/OUTPT VISIT,EST,LEVL IV OFFICE/OUTPT VISIT,EST[place] [address] [place] [address] Phone: tel: fax: [facility] [address] [place] [address] Phone: tel: fax: Referral ID Status Reason Start Date Expiration Date Visits Requested Visits Authorized [id number] Authorized Physical Therapy 10/13/2023 11/11/2024 99 99 Encounter Details Date Type Department Care Team (Latest Contact Info) Description 12/22/2023 9:54 AM CDT - 12/22/2023 11:59 PM CDT Hospital Encounter [facility] [address] [place], [place] [id number] [place] [address] [place], [place] [phone] [place] [address] [place], [place] [id number] Shoulder Pain Discharge Disposition: Home or Self [...] exacerbated early Oct. 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 Also with MHP to L shoulder and low back for comfort Hot Pack - 96264: MHP to L shoulder and low back [...] Encounters Date Type Department Care Team (Late [facility]) Description 02/12/2024 9:00 AM WET END SUPERVISOR Appointment [facility] [address] [place] [address] [place] [address] [place] [address] [place] [address] [place] [address] 02/12/2024 2:00 PM WET END SUPERVISOR Appointment [facility] [address] [place] [address] [place] [address] [place] [address] 02/16/2024 9:00 AM WET END SUPERVISOR Appointment [facility] [address] [place] [address] [place] [address] [place] [address] [place] [address] [place] [address] 02/19/2024 8:45 AM WET END SUPERVISOR Appointment [facility] [address] [place] [address] [place] [address] [place] [address] [place] [address] [place] [address] 02/19/2024 9:00 AM WET END SUPERVISOR Appointment [facility] [address] [place] [address] [place] [address] [place] [address] [place] [address] [place] [address] 02/23/2024 9:00 AM WET END SUPERVISOR Appointment [facility] [address] [place] [address] [place] [address] [place] [address] [place] [address] [place] [address] 02/24/2024 1:30 PM WET END SUPERVISOR Appointment [facility] [address] [place] [address] [place] [address] [place] [address] 02/26/2024 9:00 AM WET END SUPERVISOR Appointment [facility] [address] [place] [address] [place] [address] [place] [address] [place] [address] [place] [address] 02/26/2024 9:15 AM WET END SUPERVISOR Appointment [facility] [address] [place] [address] [place] [address] [place] [address] [place] [address] [place] [address] 03/01/2024 9:00 AM WET END SUPERVISOR Appointment [facility] [address] [place] [address] [place] [address] [place] [address] [place] [address] [place] [address] Lorene Branch, CREATIVE SERVICES WRITER 03/02/2024 12:27 PM WET END SUPERVISOR Hospital Encounter [facility] [address] [place] [address] [place] [address] [place] [address] 03/02/2024 12:27 PM WET END SUPERVISOR - 03/02/2024 1:07 PM WET END SUPERVISOR Surgery [facility] [address] [place] [address] [place] [address] [place] [address] MANIPULATION SHOULDER 03/05/2024 9:00 AM WET END SUPERVISOR Appointment [facility] [address] [place] [address] [place] [address] [place] [address] Lorene Branch, CREATIVE SERVICES WRITER 03/08/2024 9:00 AM WET END SUPERVISOR Appointment [facility] [address] [place] [address] [place] [address] [place] [address] Lorene Branch, CREATIVE SERVICES WRITER 03/11/2024 9:15 AM WET END SUPERVISOR Appointment [facility] [address] [place] [address] [place] [address] [place] [address] Lorene Branch, CREATIVE SERVICES WRITER 03/15/2024 9:00 AM WET END SUPERVISOR Appointment [facility] [address] [place] [address] [place] [address] [place] [address] Lorene Branch, CREATIVE SERVICES WRITER 03/18/2024 9:15 AM WET END SUPERVISOR Appointment [facility] [address] [place] [address] [place] [address] [place] [address] Lorene Branch, CREATIVE SERVICES WRITER 03/22/2024 9:00 AM WET END SUPERVISOR Appointment [facility] [address] [place] [address] [place] [address] [place] [address] Lorene Branch, CREATIVE SERVICES WRITER 03/25/2024 9:15 AM WET END SUPERVISOR Appointment [facility] [address] [place] [address] [place] [address] [place] [address] Lorene Branch, CREATIVE SERVICES WRITER 04/21/2024 11:20 AM WET END SUPERVISOR Office Visit [facility] Medical [facility] Family & Internal Medicine [address] [phone] [place] [address] [place], [place] [phone] Scheduled Procedures Name Priority Associated Diagnoses Date/Ti me MANIPULATION SHOULDER Adhesive capsulitis of left shoulder 03/02/2024 12:27 PM WET END SUPERVISOR INJECTION JOINT Adhesive capsulitis of left shoulder 03/02/2024 12:27 PM WET END SUPERVISOR documented as of this encounter Visit Diagnoses Diagnosis Left shoulder pain- Primary Pain in joint, shoulder region Adhesive capsulitis of left shoulder Adhesive capsulitis of shoulder documented in this encounter Additional Health Concerns Assessment Noted Time PHQ-9 Depression Total Score: 024 3:24 PM CDT documented as of this encounter Care Teams Certified Forklift Operator Relationship Specialty [place] [address] [place] [address] PCP - General Physician Cleaner [employer] 09/16/23 documented as of this encounter
--- OUTSIDE RECORDS SUMMARY | 2024-02-12 08:28 | XMS_ITS | Encounter Summary ---
Author Organization [facility] Address [facility] [place] [address] [place] [address] Care Team Providers Care Loan Examiner Name Role Phone Holger Soriano Primary Care Provider [phone] Reason for Visit * Reason Onset Date Comments Surgery Questions 12/25/2023 Encounter Details Date Type Department Care Team (Late st Contact Info) Description 12/25/2023 Telephone [facility] Medical [facility] Orthopedic Surgery [facility] [address] ARVIND HILLMAN [facility] [address] [place], [place] [phone] [place] [address] [place] [address] Surgery Questions Social History Tobacco [...] me her phone messages she got from [facility] that showed appts she did not know about and test for an ECG, she did not know about. Please call her and explain what she needs to do at [phone] documented in this encounter Plan of Treatment Upcoming Encounters Date Type Department Care Team (Late st Contact Info) Description 02/12/2024 9:00 AM VICE PRESIDENT RESEARCH Appointment [facility] [address] [place] [address] [place] [address] [place] [address] [place] [address] [place], [place] [id number] 02/12/2024 2:00 PM VICE PRESIDENT RESEARCH Appointment [facility] [address] [place] [address] [place] [address] [place], [place] [id number] 02/16/2024 9:00 AM VICE PRESIDENT RESEARCH Appointment [facility] [address] [place] [address] [place] [address] [place] [address] [place] [address] [place] [address] 02/19/2024 8:45 AM VICE PRESIDENT RESEARCH Appointment [facility] [address] [place] [address] [place] [address] [place] [address] [place] [address] [place] [address] 02/19/2024 9:00 AM VICE PRESIDENT RESEARCH Appointment [facility] [address] [place] [address] [place] [address] [place] [address] [place] [address] [place] [address] 02/23/2024 9:00 AM VICE PRESIDENT RESEARCH Appointment [facility] [address] [place] [address] [place] [address] [place] [address] [place] [address] [place] [address] 02/24/2024 1:30 PM VICE PRESIDENT RESEARCH Appointment [facility] MRI [address] [place] [address] [place] [address] [place] [address] 02/26/2024 9:00 AM VICE PRESIDENT RESEARCH Appointment [facility] [address] [place] [address] [place] [address] [place] [address] [place] [address] [place] [address] 02/26/2024 9:15 AM VICE PRESIDENT RESEARCH Appointment [facility] [address] [place] [address] [place] [address] [place] [address] [place] [address] [place] [address] 03/01/2024 9:00 AM VICE PRESIDENT RESEARCH Appointment [facility] [address] [place] [address] [place] [address] [place] [address] [place] [address] [place] [address] Lorene Branch PTA 03/02/2024 12:27 PM VICE PRESIDENT RESEARCH Hospital Encounter [facility] Surgery [address] [place] [address] [place] [address] [place] [address] 03/02/2024 12:27 PM VICE PRESIDENT RESEARCH - 03/02/2024 1:07 PM VICE PRESIDENT RESEARCH Surgery [facility] [address] [place] [address] [place] [address] [place] [address] MANIPULATION SHOULDER 03/05/2024 9:00 AM VICE PRESIDENT RESEARCH Appointment [facility] [address] [place] [address] [place] [address] [place] [address] Lorene Branch, CAN OPERATOR 03/08/2024 9:00 AM VICE PRESIDENT RESEARCH Appointment [facility] [address] [place] [address] [place] [address] [place] [address] Lorene rBanch, CAN OPERATOR 03/11/2024 9:15 AM VICE PRESIDENT RESEARCH Appointment [facility] [address] [place] [address] [place] [address] [place] [address] Lorene Branch, CAN OPERATOR 03/15/2024 9:00 AM VICE PRESIDENT RESEARCH Appointment [facility] [address] [place] [address] [place] [address] [place] [address] Lorene Branch, CAN OPERATOR 03/18/2024 9:15 AM VICE PRESIDENT RESEARCH Appointment [facility] [address] [place] [address] [place] [address] [place] [address] Lorene Branch, CAN OPERATOR 03/22/2024 9:00 AM VICE PRESIDENT RESEARCH Appointment [facility] [address] [place] [address] [place] [address] [place] [address] Lorene Branch, CAN OPERATOR 03/25/2024 9:15 AM VICE PRESIDENT RESEARCH Appointment [facility] [address] [place] [address] [place] [address] [place] [address] Lorene Branch, CAN OPERATOR 04/21/2024 11:20 AM VICE PRESIDENT RESEARCH Office Visit [facility] Medical Group Family & Internal Medicine [address] [phone] [place] [address] [place] [address] Scheduled Procedures Name Priority Associated Diagnoses Date/Ti me MANIPULATION SHOULDER Adhesive capsulitis of left shoulder 03/02/2024 12:27 PM VICE PRESIDENT RESEARCH INJECTION JOINT Adhesive capsulitis of left shoulder 03/02/2024 12:27 PM VICE PRESIDENT RESEARCH documented as of this encounter Visit Diagnoses Not on filedocumented in this encounter Additional Health Concerns Assessment Noted Time PHQ-9 Depression Total Score: 24 024 3:24 PM CDT documented as of this encounter Care Teams Loan Examiner Relationship Specialty [place] [address] [place] [address] PCP - General Physician Marine [employer] Techn[employer] Medical 09/16/23 documented as of this encounter
--- OUTSIDE RECORDS SUMMARY | 2024-02-12 08:28 | XMS_ITS | Encounter Summary ---
Author Organization [facility] Address [facility]. [place], [place] [address] [place] [address] Care Team Providers Care Hydroelectric Mechanic Name Role Phone Holger Soriano Primary Care Provider [phone] Reason for Visit * Reason Comments Sinus Problem S/s x 3-4 weeks Encounter Details Date Type Department Care Team (Late st Contact Info) Description 12/29/2023 1:20 PM RAG COLLECTOR Office Visit [facility] Family & Internal Medicine [facility] [address] [place] [address] [place] [address] [place] [address] [place] [address] [place] [address] Sinus Problem (S/s x 3-4 [...] Comments Blood Pressure 137/82 12/29/2023 11:55 AM RAG COLLECTOR Pulse 81 12/29/2023 11:55 AM RAG COLLECTOR Temperature 36.4 ??C (97.6 ??F) 12/29/2023 11:[address] Respiratory Rate 18 12/29/2023 11:55 AM RAG COLLECTOR Oxygen Saturation 99% 12/29/2023 11:55 AM RAG COLLECTOR Inhaled Oxygen Concentration - - Weight 87.6 kg (193 lb 3.2 oz) 12/29/2023 11:55 AM RAG COLLECTOR Height 159.4 cm (5' 2.75 ) 12/29/2023 11:[address] Body Mass Index 34.5 12/29/2023 11:55 AM RAG COLLECTOR documented in this encounter Patient Instructions * Attachments The following attachments cannot be sent through Care Everywhere. * Acute bronchitis ([place]ri [place]ankan) * Sinusitis Discharge Instructions, Adult ([place]) documented in this encounter Progress Notes * TYLER White - 12/29/2023 1:20 PM CSTAddended by: YANG HASKINS on: 12/29/2023 01:26 PM Modules accepted: Orders COLLECTOR * TYLER White - 12/29/2023 1:20 PM [...] Portions of this note were dictated using LSEO speech recognition software. Occasional wrong wordor sound-alike substitutions may have occurred due to the inherent limitations of voice recognition software. Please read the chart carefully and recognize, using context, where the substitutions may have occurred. Yang Haskins PA-C evaluated and Dr. Veronique Guzman reviewed and agrees with plan. Cosigned by Veronique Guzman MD at 12/30/2023 10:40 PM RAG COLLECTOR COLLECTOR COLLECTOR COLLECTOR documented in this encounter Plan of Treatment Upcoming Encounters Date Type Department Care Team (Late st Contact Info) Description 02/12/2024 9:00 AM RAG COLLECTOR Appointment [facility] [address] [place] [address] [place] [address] [place] [address] [place] [address] [place] [address] 02/12/2024 2:00 PM RAG COLLECTOR Appointment [facility] [address] [place] [address] [place] [address] [place] [address] 02/16/2024 9:00 AM RAG COLLECTOR Appointment [facility] [address] [place] [address] [place] [address] [place] [address] [place] [address] [place] [address] 02/19/2024 8:45 AM RAG COLLECTOR Appointment [facility] [address] [place] [address] [place] [address] [place] [address] [place] [address] [place] [address] 02/19/2024 9:00 AM RAG COLLECTOR Appointment [facility] [address] [place] [address] [place] [address] [place] [address] [place] [address] [place] [address] 02/23/2024 9:00 AM RAG COLLECTOR Appointment [facility] [address] [place] [address] [place] [address] [place] [address] Holger Soriano, TYLER [address] [place] [address] 02/24/2024 1:30 PM RAG COLLECTOR Appointment [facility] [address] [place] [address] Ihsan Logan, [address] [place] [address] 02/26/2024 9:00 AM RAG COLLECTOR Appointment [facility] [address] [place] [address] [place] [address] [place] [address] [place] [address] [place] [address] 02/26/2024 9:15 AM RAG COLLECTOR Appointment [facility] [address] [place] [address] [place] [address] [place] [address] [place] [address] [place] [address] 03/01/2024 9:00 AM RAG COLLECTOR Appointment [facility] [address] [place] [address] [place] [address] [place] [address] [place] [address] [place] [address] Lorene Branch, FILM MOUNTER 03/02/2024 12:27 PM RAG COLLECTOR Hospital Encounter [address] [address] [place] [address] [place] [address] 03/02/2024 12:27 PM RAG COLLECTOR - 03/02/2024 1:07 PM RAG COLLECTOR Surgery [facility] [address] [place] [address] [place] [address] [place] [address] MANIPULATION SHOULDER 03/05/2024 9:00 AM RAG COLLECTOR Appointment [facility] [address] [place] [address] [place] [address] [place] [address] Lorene Branch, FILM MOUNTER 03/08/2024 9:00 AM RAG COLLECTOR Appointment [facility] [address] [place] [address] [place] [address] [place] [address] Lorene Branch, FILM MOUNTER 03/11/2024 9:15 AM RAG COLLECTOR Appointment [facility] [address] [place] [address] [place] [address] [place] [address] Lorene Branch, FILM MOUNTER 03/15/2024 9:00 AM RAG COLLECTOR Appointment [facility] [address] [place] [address] [place] [address] [place] [address] Lorene Branch, FILM MOUNTER 03/18/2024 9:15 AM RAG COLLECTOR Appointment [facility] [address] [place] [address] [place] [address] [place] [address] Lorene Branch, FILM MOUNTER 03/22/2024 9:00 AM RAG COLLECTOR Appointment [facility] [address] [place] [address] [place] [address] [place] [address] Lorene Branch, FILM MOUNTER 03/25/2024 9:15 AM RAG COLLECTOR [facility]ointment [facility] [address] [place] [address] [place] [address] [place] [address] Lorene Branch, FILM MOUNTER 04/21/2024 11:20 AM RAG COLLECTOR Office Visit [facility] Medical Group Family & Internal Medicine [facility] [address] [place] [address] [place] [address] [place] [address] Scheduled Procedures Name Priority Associated Diagnoses Date/Ti me MANIPULATION SHOULDER Adhesive capsulitis of left shoulder 03/02/2024 12:27 PM RAG COLLECTOR INJECTION JOINT Adhesive capsulitis of left shoulder 03/02/2024 12:27 PM RAG COLLECTOR documented as of this encounter Procedures Procedure Name Priority Date/Time Associated Diagnosis Comments CORONAVIRUS (COVID-19) INFLUENZA A & B ANTIGEN IA PANEL Routine 12/29/2023 Bronchitis Suspected COVID-19 virus infection documented in this encounter Results * CORONAVIRUS (COVID-19) INFLUENZA A & B ANTIGEN IA PANEL (12/29/2023) CORONAVIRUS ANTIGEN IA NEGATIVE NEGATIVE -03403 [facility] INFLUENZA A NEGATIVE NEGATIVE -42324 [facility] INFLUENZA B NEGATIVE NEGATIVE [id number] [facility] Internal Control: VALID VALID -50599 [facility] NASAL STRUCTURE / Unknown 12/29/2023 us Yang [facility] MICROBIOLOGY - GENERAL ORDER DORIS Final Result [id number] [address] [place] [address] [place] [address], documented in this encounter Visit Diagnoses Diagnosis [...] documented as of this encounter Care Teams Hydroelectric Mechanic Relationship Specialty [place] [address] [place] [address] PCP - General Physician [employer] Project Manager Medical 09/16/23 documented as of this encounter
--- OUTSIDE RECORDS SUMMARY | 2024-02-12 08:28 | XMS_ITS | Encounter Summary ---
Author Organization [facility] Address [facility]6 [facility]. [place], [place] [address] [place] [address] Care Team Providers Care Mine Motor Operator Name Role Phone Holger Soriano Primary Care Provider [phone] Reason for Visit * Reason Comments Back Pain * Physical Medicine (Urgent) - Authorized Specialty Diagnoses / Procedures Referred By Contac t Referred To Contact PHYSICAL THERAPY Diagnoses Left shoulder pain Low back pain Procedures OFFICE/OUTPATIENT NEW LOW MDM 30-44 MINUTES OFFICE/OUTPT VISIT,NEW,LEVL IV OFFICE/OUTPT VISIT,NEW,LEVL V OFFICE/OUTPT VISIT,EST,LEVL III OFFICE/OUTPT VISIT,EST,LEVL IV OFFICE/OUTPT VISIT,EST[place] [address] [place] [address] Phone: tel: fax: [facility] [address] [place] [address] Phone: tel: fax: Referral ID Status Reason Start Date Expiration Date Visits Requested Visits Authorized [id number] Authorized Physical Therapy 10/13/2023 11/11/2024 99 99 Encounter Details Date Type Department Care Team (Latest Contact Info) Description 12/29/2023 10:15 AM RACETRACK STEWARD - 12/29/2023 1:32 PM RACETRACK STEWARD Hospital Encounter [facility] [address] [place] [address] [place] [address] [place] [address] [place] [address] [place] [address] Back Pain Discharge Disposition: Home or Self [...] exacerbated early Oct. 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[employer], [employer] Job Duties: Has help at work to [...] and tearful with testing Therapeutic Exercise - 65610 Number of Minutes - 07036: 57 Supine (Reps/Sets): HOLDING ON SHOULDER TX [...] due to french pain) Manual Therapy - 38275 Number of Minutes - 61110: 15 Myofascial Release: upper trap, levator L [...] 72 Timed Code Treatment Minutes : 72 TRACK STEWARD documented in this encounter Plan of Treatment Upcoming Encounters Date Type Department Care Team (Late st Contact Info) Description 02/12/2024 9:00 AM RACETRACK STEWARD Appointment [facility] [address] [place] [address] [place] [address] [place] [address] [place] [address] [place] [address] 02/12/2024 2:00 PM RACETRACK STEWARD Appointment [facility] MRI [address] [place] [address] [place] [address] [place] [address] 02/16/2024 9:00 AM RACETRACK STEWARD Appointment [facility] [address] [place] [address] [place] [address] [place] [address] [place] [address] [place] [address] 02/19/2024 8:45 AM RACETRACK STEWARD Appointment [facility] [address] [place] [address] [place] [address] [place] [address] [place] [address] [place] [address] 02/19/2024 9:00 AM RACETRACK STEWARD Appointment [facility] [address] [place] [address] [place] [address] [place] [address] [place] [address] [place] [address] 02/23/2024 9:00 AM RACETRACK STEWARD Appointment [facility] [address] [place] [address] [place] [address] [place] [address] [place] [address] [place] [address] 02/24/2024 1:30 PM RACETRACK STEWARD Appointment [facility] MRI [address] [place] [address] Desmond IhsanDO [address] [place] [address] 02/26/2024 9:00 AM RACETRACK STEWARD Appointment [facility] [address] [place] [address] [place] [address] [place] [address] [place] [address] [place] [address] 02/26/2024 9:15 AM RACETRACK STEWARD Appointment [facility] [address] [place] [address] [place] [address] [place] [address] [place] [address] [place] [address] 03/01/2024 9:00 AM RACETRACK STEWARD Appointment [facility] [address] [place] [address] [place] [address] [place] [address] [place] [address] [place] [address] Lorene Branch, VOCATIONAL ED INSTRUCTOR 03/02/2024 12:27 PM RACETRACK STEWARD Hospital Encounter [facility] [address] [place] [address] [place] [address] [place] [address] 03/02/2024 12:27 PM RACETRACK STEWARD - 03/02/2024 1:07 PM RACETRACK STEWARD Surgery [facility] [address] [place] [address] [place] [address] [place] [address] MANIPULATION SHOULDER 03/05/2024 9:00 AM RACETRACK STEWARD Appointment [facility] [address] [place] [address] [place] [address] [place] [address] Lorene Branch, VOCATIONAL ED INSTRUCTOR 03/08/2024 9:00 AM RACETRACK STEWARD Appointment [facility] [address] [place] [address] [place] [address] [place] [address] Lorene Branch, VOCATIONAL ED INSTRUCTOR 03/11/2024 9:15 AM RACETRACK STEWARD Appointment [facility] [address] [place] [address] [place] [address] [place] [address] Lorene Branch, VOCATIONAL ED INSTRUCTOR 03/15/2024 9:00 AM RACETRACK STEWARD Appointment [facility] [address] [place] [address] [place] [address] [place] [address] Lorene Branch, VOCATIONAL ED INSTRUCTOR 03/18/2024 9:15 AM RACETRACK STEWARD Appointment [facility] [address] [place] [address] [place] [address] [place] [address] Lorene Branch, VOCATIONAL ED INSTRUCTOR 03/22/2024 9:00 AM RACETRACK STEWARD Appointment [facility] [address] [place] [address] [place] [address] [place] [address] Lorene Branch, VOCATIONAL ED INSTRUCTOR 03/25/2024 9:15 AM RACETRACK STEWARD Appointment [facility] [address] [place] [address] [place] [address] [place] [address] Lorene Branch, VOCATIONAL ED INSTRUCTOR 04/21/2024 11:20 AM RACETRACK STEWARD Office Visit [facility] Family & Internal Medicine [address] [address] [place] [address] [place] [address] Scheduled Procedures Name Priority Associated Diagnoses Date/Ti me MANIPULATION SHOULDER Adhesive capsulitis of left shoulder 03/02/2024 12:27 PM RACETRACK STEWARD INJECTION JOINT Adhesive capsulitis of left shoulder 03/02/2024 12:27 PM RACETRACK STEWARD documented as of this encounter Visit Diagnoses Diagnosis Left shoulder pain- Primary Pain in joint, shoulder region Adhesive capsulitis of left shoulder Adhesive capsulitis of shoulder documented in this encounter Additional Health Concerns Infection Onset Date Last Indicated Resolved Time COVID-19 Rule Out 12/29/2023 12/29/2023 12/29/2023 12:59 PM RACETRACK STEWARD Assessment Noted Time PHQ-9 Depression Total Score: 024 3:24 PM CDT documented as of this encounter Care Teams Mine Motor Operator Relationship Specialty [place] [address] [place] [address] PCP - General Physician Child And Youth Program Assistant Medical 09/16/23 documented as of this encounter
--- OUTSIDE RECORDS SUMMARY | 2024-02-12 08:28 | XMS_ITS | Encounter Summary ---
Author Organization [facility] Address [facility]. [place], [place] [address] [place] [address] Care Team Providers Care Treatment Supervisor Name Role Phone Holger Soriano Primary Care Provider [phone] Reason for Visit * Reason Comments Shoulder Pain Back Pain * Physical Medicine (Urgent) - Authorized Specialty Diagnoses / Procedures Referred By Shmuel t Referred To Contact PHYSICAL THERAPY Diagnoses Left shoulder pain Low back pain Procedures OFFICE/OUTPATIENT NEW LOW MDM 30-44 MINUTES OFFICE/OUTPT VISIT,NEW,LEVL IV OFFICE/OUTPT VISIT,NEW,LEVL V OFFICE/OUTPT VISIT,EST,LEVL III OFFICE/OUTPT VISIT,EST,LEVL IV OFFICE/OUTPT VISIT,EST,[place] [address] [place] [address] Phone: tel: fax: [facility] [address] [place] [address] Phone: tel: fax: Referral ID Status Reason Start Date Expiration Date Visits Requested Visits Authorized [id number] Authorized Physical Therapy 10/13/2023 11/11/2024 99 99 Encounter Details Date Type Department Care Team (Latest Contact Info) Description 12/11/2023 8:06 AM CDT - 12/11/2023 11:59 PM CDT Hospital Encounter [facility] [address] [place] [address] [place] [address] [place] [address] [place] [address] [place] [address] Shoulder Pain; Back Pain Discharge Disposition: Home [...] complication, with long-term current use of insulin ([facility]) Take 1 tablet (4 mg total) by [...] exacerbated early Oct. 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 PROM: gentle, [...] before PROM see below Manual Therapy - 26220 Number of Minutes - 46947: 20 Instrument Assisted STM: IASTM (hands and [...] st Contact Info) Description 02/12/2024 9:00 AM HAND SPRAY OPERATOR Appointment [facility] [address] [place] [address] [place] [address] [place] [address] [place] [address] [place] [address] 02/12/2024 2:00 PM HAND SPRAY OPERATOR Appointment [facility] MRI [address] [place] [address] [place] [address] [place] [address] 02/16/2024 9:00 AM HAND SPRAY OPERATOR Appointment [facility] [address] [place] [address] [place] [address] [place] [address] [place] [address] [place] [address] 02/19/2024 8:45 AM HAND SPRAY OPERATOR Appointment [facility] [address] [place] [address] [place] [address] [place] [address] [place] [address] [place] [address] 02/19/2024 9:00 AM HAND SPRAY OPERATOR Appointment [facility] [address] [place] [address] [place] [address] [place] [address] [place] [address] [place] [address] 02/23/2024 9:00 AM HAND SPRAY OPERATOR Appointment [facility] [address] [place] [address] [place] [address] [place] [address] [place] [address] [place] [address] 02/24/2024 1:30 PM HAND SPRAY OPERATOR Appointment [facility] MRI [address] [place] [address] Ihsan Logan, [address] [place] [address] 02/26/2024 9:00 AM HAND SPRAY OPERATOR Appointment [facility] [address] [place] [address] [place] [address] [place] [address] [place] [address] [place] [address] 02/26/2024 9:15 AM HAND SPRAY OPERATOR Appointment [facility] [address] [place] [address] [place] [address] [place] [address] [place] [address] [place] [address] 03/01/2024 9:00 AM HAND SPRAY OPERATOR Appointment [facility] [address] [place] [address] [place] [address] [place] [address] [place] [address] [place] [address] Lorene Branch, FICTION AND NONFICTION WRITER PROSE 03/02/2024 12:27 PM HAND SPRAY OPERATOR Hospital Encounter [facility] Surgery [address] [place] [address] [place] [address] [place] [address] 03/02/2024 12:27 PM HAND SPRAY OPERATOR - 03/02/2024 1:07 PM HAND SPRAY OPERATOR Surgery [facility] [address] [place] [address] [place] [address] [place] [address] MANIPULATION SHOULDER 03/05/2024 9:00 AM HAND SPRAY OPERATOR Appointment [facility] [address] [place] [address] [place] [address] [place] [address] Lorene Branch, FICTION AND NONFICTION WRITER PROSE 03/08/2024 9:00 AM HAND SPRAY OPERATOR Appointment [facility] [address] [place] [address] [place] [address] [place] [address] Lorene Branch, FICTION AND NONFICTION WRITER PROSE 03/11/2024 9:15 AM HAND SPRAY OPERATOR Appointment [facility] [address] [place] [address] [place] [address] [place] [address] Lorene Branch, FICTION AND NONFICTION WRITER PROSE 03/15/2024 9:00 AM HAND SPRAY OPERATOR Appointment [facility] [address] [place] [address] [place] [address] [place] [address] Lorene Branch, FICTION AND NONFICTION WRITER PROSE 03/18/2024 9:15 AM HAND SPRAY OPERATOR Appointment [facility] [address] [place] [address] [place] [address] [place] [address] Lorene Branch, FICTION AND NONFICTION WRITER PROSE 03/22/2024 9:00 AM HAND SPRAY OPERATOR Appointment [facility] [address] [place] [address] [place] [address] [place] [address] Lorene Branch, FICTION AND NONFICTION WRITER PROSE 03/25/2024 9:15 AM HAND SPRAY OPERATOR Appointment [facility] [address] [place] [address] [place] [address] [place] [address] Lorene Branch, FICTION AND NONFICTION WRITER PROSE 04/21/2024 11:20 AM HAND SPRAY OPERATOR Office Visit [facility] Family & Internal Medicine [facility] [address] [place] [address] [place] [address] [place] [address] Scheduled Procedures Name Priority Associated Diagnoses Date/Ti me MANIPULATION SHOULDER Adhesive capsulitis of left shoulder 03/02/2024 12:27 PM HAND SPRAY OPERATOR INJECTION JOINT Adhesive capsulitis of left shoulder 03/02/2024 12:27 PM HAND SPRAY OPERATOR documented as of this encounter Visit Diagnoses Diagnosis Left shoulder pain- Primary Pain in joint, shoulder region Adhesive capsulitis of left shoulder Adhesive capsulitis of shoulder documented in this encounter Additional Health Concerns Assessment Noted Time PHQ-9 Depression Total Score: 24 024 3:24 PM CDT documented as of this encounter Care Teams Treatment Supervisor Relationship Specialty Start Date End Date Holger Soriano [place] [id number] [place] [address] PCP - General Physician Trolley Wire Installer Medical 09/16/23 documented as of this encounter
--- OUTSIDE RECORDS SUMMARY | 2024-02-12 08:28 | XMS_ITS | Encounter Summary ---
Author Organization [facility] Address [facility]6 [facility]. [place], [place] [address] [place] [address] Care Team Providers Care Retail Sales Associate Name Role Phone Holger Soriano Primary Care Provider [phone] Encounter Details Date Type Department Care Team [...] st Contact Info) Description 02/12/2024 9:00 AM THORACIC MEDICINE SPECIALIST Appointment [facility] [address] [place], [place] [address] [place] [address] [place] [address] [place] [address] [place], [place] [address] 02/12/2024 2:00 PM THORACIC MEDICINE SPECIALIST Appointment [facility] MRI [address] [place] [address] [place] [address] [place] [address] 02/16/2024 9:00 AM THORACIC MEDICINE SPECIALIST Appointment [facility] [address] [place] [address] [place] [address] [place] [address] [place] [address] [place] [address] 02/19/2024 8:45 AM THORACIC MEDICINE SPECIALIST Appointment [facility] [address] [place] [address] [place] [address] [place] [address] [place] [address] [place] [address] 02/19/2024 9:00 AM THORACIC MEDICINE SPECIALIST Appointment [facility] [address] [place] [address] [place] [address] [place] [address] [place] [address] [place] [address] 02/23/2024 9:00 AM THORACIC MEDICINE SPECIALIST Appointment [facility] [address] [place] [address] [place] [address] [place] [address] [place] [address] [place] [address] 02/24/2024 1:30 PM THORACIC MEDICINE SPECIALIST Appointment [facility] MRI [address] [place] [address] [place] [address] [place] [address] 02/26/2024 9:00 AM THORACIC MEDICINE SPECIALIST Appointment [facility] [address] [place] [address] [place] [address] [place] [address] [place] [address] [place] [address] 02/26/2024 9:15 AM THORACIC MEDICINE SPECIALIST Appointment [facility] [address] [place] [address] [place] [address] [place] [address] [place] [address] [place] [address] 03/01/2024 9:00 AM THORACIC MEDICINE SPECIALIST Appointment [facility] [address] [place] [address] [place] [address] [place] [address] [place] [address] [place] [address] Lorene Branch, CEMENTER MACHINE 03/02/2024 12:27 PM THORACIC MEDICINE SPECIALIST Hospital Encounter [facility] Surgery [address] [place] [address] [place] [address] [place] [address] 03/02/2024 12:27 PM THORACIC MEDICINE SPECIALIST - 03/02/2024 1:07 PM THORACIC MEDICINE SPECIALIST Surgery [address] [address] [place] [address] [place] [address] MANIPULATION SHOULDER 03/05/2024 9:00 AM THORACIC MEDICINE SPECIALIST Appointment [facility] [address] [place] [address] [place] [address] [place] [address] Lorene Branch, CEMENTER MACHINE 03/08/2024 9:00 AM THORACIC MEDICINE SPECIALIST Appointment [facility] [address] [place] [address] [place] [address] [place] [address] Lorene Branch, CEMENTER MACHINE 03/11/2024 9:15 AM THORACIC MEDICINE SPECIALIST Appointment [facility] [address] [place] [address] [place] [address] [place] [address] Lorene Branch, CEMENTER MACHINE 03/15/2024 9:00 AM THORACIC MEDICINE SPECIALIST Appointment [facility] [address] [place] [address] [place] [address] [place] [address] Lorene Branch, CEMENTER MACHINE 03/18/2024 9:15 AM THORACIC MEDICINE SPECIALIST Appointment [facility] [address] [place] [address] [place] [address] [place] [address] Lorene Branch, CEMENTER MACHINE 03/22/2024 9:00 AM THORACIC MEDICINE SPECIALIST Appointment [facility] [address] [place] [address] [place] [address] [place] [address] Lorene Branch, CEMENTER MACHINE 03/25/2024 9:15 AM THORACIC MEDICINE SPECIALIST Appointment [facility] [address] [place] [address] [place] [address] [place] [address] Lorene Branch, CEMENTER MACHINE 04/21/2024 11:20 AM THORACIC MEDICINE SPECIALIST Office Visit [facility] Family & Internal Medicine - [address] [address] [place] [address] [place] [address] Scheduled Procedures Name Priority Associated Diagnoses Date/Ti me MANIPULATION SHOULDER Adhesive capsulitis of left shoulder 03/02/2024 12:27 PM THORACIC MEDICINE SPECIALIST INJECTION JOINT Adhesive capsulitis of left shoulder 03/02/2024 12:27 PM THORACIC MEDICINE SPECIALIST documented as of this encounter Visit Diagnoses Not on filedocumented in this encounter Additional Health Concerns Assessment Noted Time PHQ-9 Depression Total Score: 024 3:24 PM CDT documented as of this encounter Care Teams Retail Sales Associate Relationship Specialty [place] [address] [place] [address] PCP - General Physician Customer Experience Strategist Medical 09/16/23 documented as of this encounter
--- OUTSIDE RECORDS SUMMARY | 2024-02-12 08:28 | XMS_ITS | Encounter Summary ---
Author Organization [facility] Address [facility] [place] [address] [place] [address] Care Team Providers Care Apple Turner Name Role Phone Holger Soriano Primary Care Provider [phone] Encounter Details Date Type Department Care Team [...] Contact Info) Description 02/12/2024 9:00 AM PRODUCT INTRODUCTION MANAGER Appointment [facility] [address] [place] [address] [place] [address] [place] [address] [place] [address] [place], [place] [id number] 02/12/2024 2:00 PM PRODUCT INTRODUCTION MANAGER Appointment [facility] MRI [address] [place] [address] [place] [address] [place] [address] 02/16/2024 9:00 AM PRODUCT INTRODUCTION MANAGER Appointment [facility] [address] [place] [address] [place] [address] [place] [address] [place] [address] [place] [address] 02/19/2024 8:45 AM PRODUCT INTRODUCTION MANAGER Appointment [facility] [address] [place] [address] [place] [address] [place] [address] [place] [address] [place] [address] 02/19/2024 9:00 AM PRODUCT INTRODUCTION MANAGER Appointment [facility] [address] [place] [address] [place] [address] [place] [address] [place] [address] [place] [address] 02/23/2024 9:00 AM PRODUCT INTRODUCTION MANAGER Appointment [facility] [address] [place] [address] [place] [address] [place] [address] [place] [address] [place] [address] 02/24/2024 1:30 PM PRODUCT INTRODUCTION MANAGER Appointment [facility] [address] [place] [address] [place] [address] [place] [address] 02/26/2024 9:00 AM PRODUCT INTRODUCTION MANAGER Appointment [facility] [address] [place] [address] [place] [address] [place] [address] [place] [address] [place] [address] 02/26/2024 9:15 AM PRODUCT INTRODUCTION MANAGER Appointment [facility] [address] [place] [address] [place] [address] [place] [address] [place] [address] [place] [address] 03/01/2024 9:00 AM PRODUCT INTRODUCTION MANAGER Appointment [facility] [address] [place] [address] [place] [address] [place] [address] [place] [address] [place] [address] Lorene Branch, WOOD ENGRAVER 03/02/2024 12:27 PM PRODUCT INTRODUCTION MANAGER Hospital Encounter [facility] [id number] [place] [address] [place] [address] [place] [address] 03/02/2024 12:27 PM PRODUCT INTRODUCTION MANAGER - 03/02/2024 1:07 PM PRODUCT INTRODUCTION MANAGER Surgery [address] [address] [place] [address] [place] [address] MANIPULATION SHOULDER 03/05/2024 9:00 AM PRODUCT INTRODUCTION MANAGER Appointment [facility] [address] [place] [address] [place] [address] [place] [address] Lorene Branch, WOOD ENGRAVER 03/08/2024 9:00 AM PRODUCT INTRODUCTION MANAGER Appointment [facility] [address] [place] [address] [place] [address] [place] [address] Lorene Branch, WOOD ENGRAVER 03/11/2024 9:15 AM PRODUCT INTRODUCTION MANAGER Appointment [facility] [address] [place] [address] [place] [address] [place] [address] Lorene Branch, WOOD ENGRAVER 03/15/2024 9:00 AM PRODUCT INTRODUCTION MANAGER Appointment [facility] [address] [place] [address] [place] [address] [place] [address] Lorene Branch, WOOD ENGRAVER 03/18/2024 9:15 AM PRODUCT INTRODUCTION MANAGER Appointment [facility] [address] [place] [address] [place] [address] [place] [address] Lorene Branch, WOOD ENGRAVER 03/22/2024 9:00 AM PRODUCT INTRODUCTION MANAGER Appointment [facility] [address] [place] [address] [place] [address] [place] [address] Lorene Branch, WOOD ENGRAVER 03/25/2024 9:15 AM PRODUCT INTRODUCTION MANAGER Appointment [facility] [address] [place] [address] [place] [address] [place] [address] Lorene Branch, WOOD ENGRAVER 04/21/2024 11:20 AM PRODUCT INTRODUCTION MANAGER Office Visit [facility] Medical Group Family & Internal Medicine - [address] [address] [place] [address] [place] [address] Scheduled Procedures Name Priority Associated Diagnoses Date/Ti me MANIPULATION SHOULDER Adhesive capsulitis of left shoulder 03/02/2024 12:27 PM PRODUCT INTRODUCTION MANAGER INJECTION JOINT Adhesive capsulitis of left shoulder 03/02/2024 12:27 PM PRODUCT INTRODUCTION MANAGER documented as of this encounter Visit Diagnoses Not on filedocumented in this encounter Additional Health Concerns Assessment Noted Time PHQ-9 Depression Total Score: 024 3:24 PM CDT documented as of this encounter Care Teams Apple Turner Relationship Specialty [place] [address] [place] [address] PCP - General Physician Panel Maker Medical 09/16/23 documented as of this encounter
--- OUTSIDE RECORDS SUMMARY | 2024-02-12 08:28 | XMS_ITS | Encounter Summary ---
Author Organization [facility] Address [facility] [place] [address] [place] [address] Care Team Providers Care Purse Maker Name Role Phone Holger Christopher Primary Care Provider [phone] Reason for Visit * Reason Onset Date Comments Question 12/22/2023 Forms 12/22/2023 Encounter Details Date Type Department Care Team (Late st Contact Info) Description 12/22/2023 Telephone [facility] Medical Group Family & Internal Medicine [facility] [address] [place] [address] [place] [address] [place] [address] Question; Forms Social History Tobacco [...] Nunez MA - 12/23/2023 11:19 AM CDT help desk representative spoke to patient and informed her of information below. No questions/concerns. * Susana Nunez MA - 12/23/2023 9:07 AM CDT [facility] to inform her of information below * [...] st Contact Info) Description 02/12/2024 9:00 AM ART OBJECTS SALESPERSON Appointment [facility] [address] [place], [place] [address] [place] [address] [place] [address] [place] [address] [place] [address] 02/12/2024 2:00 PM ART OBJECTS SALESPERSON Appointment [facility] MRI [address] [place] [address] [place] [address] [place] [address] 02/16/2024 9:00 AM ART OBJECTS SALESPERSON Appointment [facility] [address] [place] [address] [place] [address] [place] [address] [place] [address] [place] [address] 02/19/2024 8:45 AM ART OBJECTS SALESPERSON Appointment [facility] [address] [place] [address] [place] [address] [place] [address] [place] [address] [place] [address] 02/19/2024 9:00 AM ART OBJECTS SALESPERSON Appointment [facility] [address] [place] [address] [place] [address] [place] [address] [place] [address] [place] [address] 02/23/2024 9:00 AM ART OBJECTS SALESPERSON Appointment [facility] [address] [place] [address] [place] [address] [place] [address] [place] [address] [place] [address] 02/24/2024 1:30 PM ART OBJECTS SALESPERSON Appointment [facility] MRI [address] [place] [address] [place] [address] [place] [address] 02/26/2024 9:00 AM ART OBJECTS SALESPERSON Appointment [facility] [address] [place] [address] [place] [address] [place] [address] [place] [address] [place] [address] 02/26/2024 9:15 AM ART OBJECTS SALESPERSON Appointment [facility] [address] [place] [address] [place] [address] [place] [address] [place] [address] [place] [address] 03/01/2024 9:00 AM ART OBJECTS SALESPERSON Appointment [facility] [address] [place] [address] [place] [address] [place] [address] [place] [address] [place] [address] Lorene Branch, CAT HOOKER 03/02/2024 12:27 PM ART OBJECTS SALESPERSON Hospital Encounter [facility] Surgery [address] [place] [address] [place] [address] [place] [address] 03/02/2024 12:27 PM ART OBJECTS SALESPERSON - 03/02/2024 1:07 PM ART OBJECTS SALESPERSON Surgery [address] [address] [place] [address] [place] [address] MANIPULATION SHOULDER 03/05/2024 9:00 AM ART OBJECTS SALESPERSON Appointment [facility] [address] [place] [address] [place] [address] [place] [address] Lorene Branch, CAT HOOKER 03/08/2024 9:00 AM ART OBJECTS SALESPERSON Appointment [facility] [address] [place] [address] [place] [address] [place] [address] Lorene Branch, CAT HOOKER 03/11/2024 9:15 AM ART OBJECTS SALESPERSON Appointment [facility] [address] [place] [address] [place] [address] [place] [address] Lorene Branch, CAT HOOKER 03/15/2024 9:00 AM ART OBJECTS SALESPERSON Appointment [facility] [address] [place] [address] [place] [address] [place] [address] Lorene Branch, CAT HOOKER 03/18/2024 9:15 AM ART OBJECTS SALESPERSON Appointment [facility] [address] [place] [address] [place] [address] [place] [address] Lorene Branch, CAT HOOKER 03/22/2024 9:00 AM ART OBJECTS SALESPERSON Appointment [facility] [address] [place] [address] [place] [address] [place] [address] Lorene Branch, CAT HOOKER 03/25/2024 9:15 AM ART OBJECTS SALESPERSON Appointment [facility] [address] [place] [address] [place] [address] [place] [address] Lorene Branch, CAT HOOKER 04/21/2024 11:20 AM ART OBJECTS SALESPERSON Office Visit [facility] Medical Group Family & Internal Medicine [address] [address] [place] [address] [place] [address] Scheduled Procedures Name Priority Associated Diagnoses Date/Ti me MANIPULATION SHOULDER Adhesive capsulitis of left shoulder 03/02/2024 12:27 PM ART OBJECTS SALESPERSON INJECTION JOINT Adhesive capsulitis of left shoulder 03/02/2024 12:27 PM ART OBJECTS SALESPERSON documented as of this encounter Visit Diagnoses Not on filedocumented in this encounter Additional Health Concerns Assessment Noted Time PHQ-9 Depression Total Score: 024 3:24 PM CDT documented as of this encounter Care Teams Purse Maker Relationship Specialty [place] [address] [place] [address] PCP - General Physician Field Crop Harvest Worker Medical 09/16/23 documented as of this encounter
--- OUTSIDE RECORDS SUMMARY | 2024-02-12 08:28 | XMS_ITS | Encounter Summary ---
Author Organization [facility] Address [facility]. [place], [place] [address] [place] [address] Care Team Providers Care Supervisor Nuclear Medicine Name Role Phone Holger Soriano Primary Care Provider [phone] Encounter Details Date Type Department Care Team [...] st Contact Info) Description 02/12/2024 9:00 AM METROLOGIST Appointment [facility] Outpatient Rehab [address] [place], [place] [address] [place] [address] [address] [place], [place] [address] [place] [address] [place] [address] 02/12/2024 2:00 PM METROLOGIST Appointment [facility] MRI [address] [place] [address] [place] [address] [place] [address] 02/16/2024 9:00 AM METROLOGIST Appointment [facility]hab [address] [place] [address] [place] [address] [place] [address] [place] [address] [place] [address] 02/19/2024 8:45 AM METROLOGIST Appointment [facility]hab [address] [place] [address] [place] [address] [place] [address] [place] [address] [place] [address] 02/19/2024 9:00 AM METROLOGIST Appointment [facility]hab [address] [place] [address] [place] [address] [place] [address] [place] [address] [place] [address] 02/23/2024 9:00 AM METROLOGIST Appointment [facility]hab [address] [place] [address] [place] [address] [place] [address] [place] [address] [place] [address] 02/24/2024 1:30 PM METROLOGIST Appointment [facility] MRI [address] [place] [address] [place] [address] [place] [address] 02/26/2024 9:00 AM METROLOGIST Appointment [facility]hab [address] [place] [address] [place] [address] [place] [address] [place] [address] [place] [address] 02/26/2024 9:15 AM METROLOGIST Appointment [facility]hab [address] [place] [address] [place] [address] [place] [address] [place] [address] [place] [address] 03/01/2024 9:00 AM METROLOGIST Appointment [facility]hab [address] [place] [address] [place] [address] [place] [address] [place] [address] [place] [address] Lorene Branch, INSPECTOR LINE 03/02/2024 12:27 PM METROLOGIST Hospital Encounter [facility] Surgery [address] [place] [address] [place] [address] [place] [address] 03/02/2024 12:27 PM METROLOGIST - 03/02/2024 1:07 PM METROLOGIST Surgery [facility] Surgery [address] [place] [address] [place] [address] [place] [address] MANIPULATION SHOULDER 03/05/2024 9:00 AM METROLOGIST Appointment [facility] [address] [place] [address] [place] [address] [place] [address] Lorene Branch, INSPECTOR LINE 03/08/2024 9:00 AM METROLOGIST Appointment [facility] [address] [place] [address] [place] [address] [place] [address] Lorene Branch, INSPECTOR LINE 03/11/2024 9:15 AM METROLOGIST Appointment [facility] [address] [place] [address] [place] [address] [place] [address] Lorene Branch, INSPECTOR LINE 03/15/2024 9:00 AM METROLOGIST Appointment [facility] [address] [place] [address] [place] [address] [place] [address] Lorene Branch, INSPECTOR LINE 03/18/2024 9:15 AM METROLOGIST Appointment [facility] [address] [place] [address] [place] [address] [place] [address] Lorene Branch, INSPECTOR LINE 03/22/2024 9:00 AM METROLOGIST Appointment [facility] [address] [place] [address] [place] [address] [place] [address] Lorene Branch, INSPECTOR LINE 03/25/2024 9:15 AM METROLOGIST Appointment [facility] [address] [place] [address] [place] [address] [place] [address] Lorene Branch, INSPECTOR LINE 04/21/2024 11:20 AM METROLOGIST Office Visit [facility] Medical Group Family & Internal Medicine - [address] [address] [place] [address] [place] [address] Scheduled Procedures Name Priority Associated Diagnoses Date/Ti me MANIPULATION SHOULDER Adhesive capsulitis of left shoulder 03/02/2024 12:27 PM METROLOGIST INJECTION JOINT Adhesive capsulitis of left shoulder 03/02/2024 12:27 PM METROLOGIST documented as of this encounter Visit Diagnoses Not on filedocumented in this encounter Additional Health Concerns Assessment Noted Time PHQ-9 Depression Total Score: 024 3:24 PM CDT documented as of this encounter Care Teams Supervisor Nuclear Medicine Relationship Specialty [place] [address] [place] [address] PCP - General Physician Life Enrichment Manager Medical 09/16/23 documented as of this encounter
--- OUTSIDE RECORDS SUMMARY | 2024-02-12 08:28 | XMS_ITS | Encounter Summary ---
Author Organization [facility] Address [facility]. [place], [place] [address] [place] [address] Care Team Providers Care Canopy Inspector Name Role Phone Holger Soriano Primary Care Provider [phone] Reason for Visit * Reason Comments Back Pain * Physical Medicine (Urgent) - Authorized Specialty Diagnoses / Procedures Referred By Contac t Referred To Contact PHYSICAL THERAPY Diagnoses Left shoulder pain Low back pain Procedures OFFICE/OUTPATIENT NEW LOW MDM 30-44 MINUTES OFFICE/OUTPT VISIT,NEW,LEVL IV OFFICE/OUTPT VISIT,NEW,LEVL V OFFICE/OUTPT VISIT,EST,LEVL III OFFICE/OUTPT VISIT,EST,LEVL IV OFFICE/OUTPT VISIT,EST[place] [address] [place] [address] Phone: tel: fax: [facility] [address] [place] [address] Phone: tel: fax: Referral ID Status Reason Start Date Expiration Date Visits Requested Visits Authorized [id number] Authorized Physical Therapy 10/13/2023 11/11/2024 99 99 Encounter Details Date Type Department Care Team (Latest Contact Info) Description 12/25/2023 9:56 AM CDT - 12/25/2023 11:59 PM CDT Hospital Encounter [facility] Outpatient [facility]hab [address] [place], [place] [address] [place] [address] [place], [place] [address] [place] [address] [place], [place] [id number] Back Pain Discharge Disposition: Home or Self [...] exacerbated early Oct. 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[employer] Job Duties: Has help at work to lift things currently Subjective Note: [place] better after th dry needling until last [...] OBJECTIVE Treatment provided today: Therapeutic Exercise - 49534 Number of Minutes - 21573: 45 Supine (Reps/Sets): HOLDING ON SHOULDER TX [...] stretch/hip hinging for HEP Manual Therapy - 38570 Number of Minutes - 38049: 30 Myofascial Release: upper trap, levator L [...] st Contact Info) Description 02/12/2024 9:00 AM ELECTRONIC SCALE SUBASSEMBLER Appointment [facility]hab [address] [place] [address] [place] [address] [place] [address] [place] [address] [place] [address] 02/12/2024 2:00 PM ELECTRONIC SCALE SUBASSEMBLER Appointment [facility] [place] [address] [place] [address] [place] [address] [place] [address] 02/16/2024 9:00 AM ELECTRONIC SCALE SUBASSEMBLER Appointment [facility]hab [address] [place] [address] [place] [address] [place] [address] [place] [address] [place] [address] 02/19/2024 8:45 AM ELECTRONIC SCALE SUBASSEMBLER Appointment [facility]hab [address] [place] [address] [place] [address] [place] [address] [place] [address] [place] [address] 02/19/2024 9:00 AM ELECTRONIC SCALE SUBASSEMBLER Appointment [facility]hab [address] [place] [address] [place] [address] [place] [address] [place] [address] [place] [address] 02/23/2024 9:00 AM ELECTRONIC SCALE SUBASSEMBLER Appointment [facility]hab [address] [place] [address] [place] [address] [place] [address] [place] [address] [place] [address] 02/24/2024 1:30 PM ELECTRONIC SCALE SUBASSEMBLER Appointment [facility] MRI [address] [place] [address] Ihsan Logan, [address] [place] [address] 02/26/2024 9:00 AM ELECTRONIC SCALE SUBASSEMBLER Appointment [facility]hab [address] [place] [address] [place] [address] [place] [address] [place] [address] [place] [address] 02/26/2024 9:15 AM ELECTRONIC SCALE SUBASSEMBLER Appointment [facility] Out[facility]hab [address] [place] [address] [place] [address] [place] [address] [place] [address] [place] [address] 03/01/2024 9:00 AM ELECTRONIC SCALE SUBASSEMBLER Appointment [facility]hab [address] [place] [address] [place] [address] [place] [address] [place] [address] [place] [address] Lorene Branch, ELECTRODYNAMICIST 03/02/2024 12:27 PM ELECTRONIC SCALE SUBASSEMBLER Hospital Encounter [facility] Surgery [address] [place] [address] [place] [address] [place] [address] 03/02/2024 12:27 PM ELECTRONIC SCALE SUBASSEMBLER - 03/02/2024 1:07 PM ELECTRONIC SCALE SUBASSEMBLER Surgery [facility] [address] [place] [address] [place] [address] [place] [address] MANIPULATION SHOULDER 03/05/2024 9:00 AM ELECTRONIC SCALE SUBASSEMBLER Appointment [facility]hab [address] [place] [address] [place] [address] [place] [address] Lorene Branch, ELECTRODYNAMICIST 03/08/2024 9:00 AM ELECTRONIC SCALE SUBASSEMBLER Appointment [facility] [address] [place] [address] [place] [address] [place] [address] Lorene Branch, ELECTRODYNAMICIST 03/11/2024 9:15 AM ELECTRONIC SCALE SUBASSEMBLER Appointment [facility]hab [address] [place] [address] [place] [address] [place] [address] Lorene Branch, ELECTRODYNAMICIST 03/15/2024 9:00 AM ELECTRONIC SCALE SUBASSEMBLER Appointment [facility] [address] [place] [address] [place] [address] [place] [address] Lorene Branch, ELECTRODYNAMICIST 03/18/2024 9:15 AM ELECTRONIC SCALE SUBASSEMBLER Appointment [facility]hab [address] [place] [address] [place] [address] [place] [address] Lorene Branch, ELECTRODYNAMICIST 03/22/2024 9:00 AM ELECTRONIC SCALE SUBASSEMBLER Appointment [facility] [address] [place] [address] [place] [address] [place] [address] Lorene Branch, ELECTRODYNAMICIST 03/25/2024 9:15 AM ELECTRONIC SCALE SUBASSEMBLER Appointment [facility] [address] [place] [address] [place] [address] [place] [address] Lorene Branch, ELECTRODYNAMICIST 04/21/2024 11:20 AM ELECTRONIC SCALE SUBASSEMBLER Office Visit [facility] Medical Group Family & Internal Medicine [address] [address] [place] [address] [place] [address] Scheduled Procedures Name Priority Associated Diagnoses Date/Ti me MANIPULATION SHOULDER Adhesive capsulitis of left shoulder 03/02/2024 12:27 PM ELECTRONIC SCALE SUBASSEMBLER INJECTION JOINT Adhesive capsulitis of left shoulder 03/02/2024 12:27 PM ELECTRONIC SCALE SUBASSEMBLER documented as of this encounter Visit Diagnoses Diagnosis Left shoulder pain- Primary Pain in joint, shoulder region Adhesive capsulitis of left shoulder Adhesive capsulitis of shoulder documented in this encounter Additional Health Concerns Assessment Noted Time PHQ-9 Depression Total Score: 24 024 3:24 PM CDT documented as of this encounter Care Teams Canopy Inspector Relationship Specialty [place] [address] [place] [address] PCP - General Physician Engineering Technology Instructor Medical 09/16/23 documented as of this encounter
--- OUTSIDE RECORDS SUMMARY | 2024-02-12 08:28 | XMS_ITS | Encounter Summary ---
Author Organization [facility] Address [facility]. [place], [place] [address] [place] [address] Care Team Providers Care Administrative Support Clerk Name Role Phone Holger Soriano Primary Care [...] st Contact Info) Description 02/12/2024 9:00 AM STEEL DIE ENGRAVER Appointment [facility] Outpatient Rehab [address] [place], [place] [id number] [place] [address] [place], [place] [address] [place] [address] [place], [place] [id number] 02/12/2024 2:00 PM STEEL DIE ENGRAVER Appointment [facility] [address] [place] [address] [place] [address] [place] [address] 02/16/2024 9:00 AM STEEL DIE ENGRAVER Appointment [facility] Outpatient Rehab [address] [place] [address] [place] [address] [place] [address] [place] [address] [place] [address] 02/19/2024 8:45 AM STEEL DIE ENGRAVER Appointment [facility] Outpatient Rehab [address] [place] [address] [place] [address] [place] [address] [place] [address] [place] [address] 02/19/2024 9:00 AM STEEL DIE ENGRAVER Appointment [facility] Outpatient Rehab [address] [place] [address] [place] [address] [place] [address] [place] [address] [place] [address] 02/23/2024 9:00 AM STEEL DIE ENGRAVER Appointment [facility] Outpatient Rehab [address] [place] [address] [place] [address] [place] [address] [place] [address] [place] [address] 02/24/2024 1:30 PM STEEL DIE ENGRAVER Appointment [facility] [place] [address] [place] [address] [place] [address] [place] [address] 02/26/2024 9:00 AM STEEL DIE ENGRAVER Appointment [facility] Outpatient Rehab [address] [place] [address] [place] [address] [place] [address] [place] [address] [place] [address] 02/26/2024 9:15 AM STEEL DIE ENGRAVER Appointment [facility] Outpatient Rehab [address] [place] [address] [place] [address] [place] [address] [place] [address] [place] [address] 03/01/2024 9:00 AM STEEL DIE ENGRAVER Appointment [facility] Outpatient Rehab [address] [place] [address] [place] [address] [place] [address] [place] [address] [place] [address] Lorene Branch, PLASTIC CNC MACHINE OPERATOR 03/02/2024 12:27 PM STEEL DIE ENGRAVER Hospital Encounter [facility] Surgery [address] [place] [address] [place] [address] [place] [address] 03/02/2024 12:27 PM STEEL DIE ENGRAVER - 03/02/2024 1:07 PM STEEL DIE ENGRAVER Surgery [address] [address] [place] [address] [place] [address] MANIPULATION SHOULDER 03/05/2024 9:00 AM STEEL DIE ENGRAVER Appointment [facility] Outpatient Rehab [address] [place] [address] [place] [address] [place] [address] Lorene Branch, PLASTIC CNC MACHINE OPERATOR 03/08/2024 9:00 AM STEEL DIE ENGRAVER Appointment [facility] Outpatient Rehab [address] [place] [address] [place] [address] [place] [address] Lorene Branch, PLASTIC CNC MACHINE OPERATOR 03/11/2024 9:15 AM STEEL DIE ENGRAVER Appointment [facility] Outpatient Rehab [address] [place] [address] [place] [address] [place] [address] Lorene Branch, PLASTIC CNC MACHINE OPERATOR 03/15/2024 9:00 AM STEEL DIE ENGRAVER Appointment [facility] Outpatient Rehab [address] [place] [address] [place] [address] [place] [address] Lorene Branch, PLASTIC CNC MACHINE OPERATOR 03/18/2024 9:15 AM STEEL DIE ENGRAVER Appointment [facility] Outpatient Rehab [address] [place] [address] [place] [address] [place] [address] Lorene Branch, PLASTIC CNC MACHINE OPERATOR 03/22/2024 9:00 AM STEEL DIE ENGRAVER Appointment [facility] Outpatient Rehab [address] [place] [address] [place] [address] [place] [address] Lorene Branch, PLASTIC CNC MACHINE OPERATOR 03/25/2024 9:15 AM STEEL DIE ENGRAVER Appointment [facility] Outpatient Rehab [address] [place] [address] [place] [address] [place] [address] Lorene Branch, PLASTIC CNC MACHINE OPERATOR 04/21/2024 11:20 AM STEEL DIE ENGRAVER Office Visit [facility] Family & Internal Medicine - [address] [address] [place] [address] [place] [address] Scheduled Procedures Name Priority Associated Diagnoses Date/Ti me MANIPULATION SHOULDER Adhesive capsulitis of left shoulder 03/02/2024 12:27 PM STEEL DIE ENGRAVER INJECTION JOINT Adhesive capsulitis of left shoulder 03/02/2024 12:27 PM STEEL DIE ENGRAVER documented as of this encounter Visit Diagnoses Not on filedocumented in this encounter Additional Health Concerns Assessment Noted Time PHQ-9 Depression Total Score: 024 3:24 PM CDT documented as of this encounter Care Teams Administrative Support Clerk Relationship Specialty [place] [address] [place] [address] PCP - General Physician Circuit Design Engineer Medical 09/16/23 documented as of this encounter
--- OUTSIDE RECORDS SUMMARY | 2024-02-12 08:28 | XMS_ITS | Encounter Summary ---
Author Organization [facility] Address [facility] [place] [address] [place] [address] Care Team Providers Care Spar Machine Operator Name Role Phone Holger Soriano Primary Care Provider [phone] Reason for Referral * Imaging (Routine) - Closed Specialty Diagnoses / Procedures Referred By Shmuel angel Referred To Contact RADIOLOGY Diagnoses Radiculopathy of cervicothoracic region Numbness and tingling in left arm Procedures MRI CERV SPINE WO CON Ihsan Logan DO Phone: tel: fax: Referral ID Status Reason Start Date Expiration Date Visits Re quested Visits Authorized [id number] Closed 07/07/2023 08/05/2024 1 1 Reason for Visit * Imaging (Routine) - Closed Specialty Diagnoses / Procedures Referred By Shmuel angel Referred To Contact RADIOLOGY Diagnoses Radiculopathy of cervicothoracic region Numbness and tingling in left arm Procedures MRI CERV SPINE WO CON Ihsan Logan DO Phone: tel: fax: Referral ID Status Reason Start Date Expiration Date Visits Re quested Visits Authorized [id number] Closed 07/07/2023 08/05/2024 1 1 Encounter Details Date Type Department Care Team (Late st Contact Info) Description 12/10/2023 1:29 PM CDT - 12/10/2023 11:59 PM CDT Hospital Encounter [facility] [address] [facility] [address] LoganIhsan monterroso, [address] [place] [address] Discharge Disposition: Home or Self Care (Routine [...] complication, with long-term current use of insulin ([facility]) Take 1 tablet (4 mg total) by mouth every 8 (eight) hours as needed for Nausea. 20 tablet 11/19/2023 4 progesterone (PROMETRIUM) 100 MG capsuleIndication s:Menopausal and female climacteric states take 1 capsule by mouth every day 90 capsule 1 06/10/2023 documented as of this encounter Plan of Treatment Upcoming Encounters Date Type Department Care Team (Late st [facility]) Description 02/12/2024 9:00 AM TEST WORKER Appointment [facility] [address] [place] [address] [place] [address] [place] [address] [place] [address] [place], [place] [id number] 02/12/2024 2:00 PM TEST WORKER [place] [facility] [place] [address] [place] [address] [place] [address] [place] [address] 02/16/2024 9:00 AM TEST WORKER Appointment [facility] [address] [place] [address] [place] [address] [place] [address] [place] [address] [place] [address] 02/19/2024 8:45 AM TEST WORKER Appointment [facility] [address] [place] [address] [place] [address] [place] [address] [place] [address] [place] [address] 02/19/2024 9:00 AM TEST WORKER Appointment [facility]hab [address] [place] [address] [place] [address] [place] [address] [place] [address] [place] [address] 02/23/2024 9:00 AM TEST WORKER Appointment [facility] [address] [place] [address] [place] [address] [place] [address] [place] [address] [place] [address] 02/24/2024 1:30 PM TEST WORKER Appointment [facility] [address] [place] [address] Ihsan Logan, [address] [place] [address] 02/26/2024 9:00 AM TEST WORKER Appointment [facility] [address] [place] [address] [place] [address] [place] [address] [place] [address] [place] [address] 02/26/2024 9:15 AM TEST WORKER Appointment [facility] [address] [place] [address] [place] [address] [place] [address] [place] [address] [place] [address] 03/01/2024 9:00 AM TEST WORKER Appointment [facility] [address] [place] [address] [place] [address] [place] [address] [place] [address] [place] [address] Lorene Branch, RUSTIC TERRAZZO SETTER 03/02/2024 12:27 PM TEST WORKER Hospital Encounter [address] [address] [place] [address] [place] [address] 03/02/2024 12:27 PM TEST WORKER - 03/02/2024 1:07 PM TEST WORKER Surgery [facility] Surgery [address] [place] [address] [place] [address] [place] [address] MANIPULATION SHOULDER 03/05/2024 9:00 AM TEST WORKER Appointment [facility] [address] [place] [address] [place] [address] [place] [address] Lorene Branch, RUSTIC TERRAZZO SETTER 03/08/2024 9:00 AM TEST WORKER Appointment [facility] [address] [place] [address] [place] [address] [place] [address] Lorene Branch, RUSTIC TERRAZZO SETTER 03/11/2024 9:15 AM TEST WORKER Appointment [facility] [address] [place] [address] [place] [address] [place] [address] Lorene Branch, RUSTIC TERRAZZO SETTER 03/15/2024 9:00 AM TEST WORKER Appointment [facility] [address] [place] [address] [place] [address] [place] [address] Lorene Branch, RUSTIC TERRAZZO SETTER 03/18/2024 9:15 AM TEST WORKER Appointment [facility] [address] [place] [address] [place] [address] [place] [address] Lorene Branch, RUSTIC TERRAZZO SETTER 03/22/2024 9:00 AM TEST WORKER Appointment [facility] [address] [place] [address] [place] [address] [place] [address] Lorene Branch, RUSTIC TERRAZZO SETTER 03/25/2024 9:15 AM TEST WORKER Appointment [facility] [address] [place], [place] [address] [place] [address] [place], [place] [address] Lorene Branch, RUSTIC TERRAZZO SETTER 04/21/2024 11:20 AM TEST WORKER Office Visit [facility] Family & Internal Medicine [facility] [address] [place] [address] [place] [address] [place] [address] Scheduled Procedures Name Priority Associated Diagnoses Date/Ti me MANIPULATION SHOULDER Adhesive capsulitis of left shoulder 03/02/2024 12:27 PM TEST WORKER INJECTION JOINT Adhesive capsulitis of left shoulder 03/02/2024 12:27 PM TEST WORKER documented as of this encounter Procedures Procedure [...] 12/10/2023 3:48 PM CDT [facility] [address] [place] [address] EXAMINATION:MRI of the cervical spine without contrast [...] Borjas MD - 12/10/2023 [facility] [address] [place] [address] EXAMINATION:MRI of the cervical spine without contrast [...] documented as of this encounter Care Teams Spar Machine Operator Relationship Specialty [place] [address] [place] [address] PCP - General Physician National Accounts Sales Medical 09/16/23 documented as of this encounter
--- OUTSIDE RECORDS SUMMARY | 2024-02-12 08:29 | XMS_ITS | Encounter Summary ---
Author Organization [facility] Address [facility]. [place], [place] [address] [place] [address] Care Team Providers Care Logistics Coordinator Name Role Phone Holger Soriano Primary Care Provider [phone] Reason for Visit * Reason Comments Shoulder Pain Back Pain * Physical Medicine (Urgent) - Authorized Specialty Diagnoses / Procedures Referred By Shmuel t Referred To Contact PHYSICAL THERAPY Diagnoses Left shoulder pain Low back pain Procedures OFFICE/OUTPATIENT NEW LOW MDM 30-44 MINUTES OFFICE/OUTPT VISIT,NEW,LEVL IV OFFICE/OUTPT VISIT,NEW,LEVL V OFFICE/OUTPT VISIT,EST,LEVL III OFFICE/OUTPT VISIT,EST,LEVL IV OFFICE/OUTPT VISIT,EST,[place] [address] [place] [address] Phone: tel: fax: [facility] [address] [place] [address] Phone: tel: fax: Referral ID Status Reason Start Date Expiration Date Visits Requested Visits Authorized [id number] Authorized Physical Therapy 10/13/2023 11/11/2024 99 99 Encounter Details Date Type Department Care Team (Latest Contact Info) Description 12/02/2023 1:45 PM CDT - 12/02/2023 11:59 PM CDT Hospital Encounter [facility] [address] [place], [place] [address] [place] [address] [place] [address] Isabela Pedro PTA Shoulder Pain; Back Pain [...] current use of insulin ([facility]) Take 1 tablet (4 mg [...] exacerbated early Oct. 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[employer], [email or web address] Job Duties: Has help at work [...] OBJECTIVE Treatment provided today: Therapeutic Exercise - 24802 Number of Minutes - 54302: 50 Sitting (Reps/Sets): progress to functional work [...] wall Modalities Non-Timed Electrical Stimulation Unattended - 24887/G0283: HELD TODAY- IFC to low back x 15 min (supine, bolster under knees) (performed cervical/SH stretches during) Hot Pack - 22417: MHP to L shoulder and low back [...] st Contact Info) Description 02/12/2024 9:00 AM OUTREACH CLINICIAN Appointment [facility] [address] [place] [address] [place] [address] [place] [address] [place] [address] [place] [address] 02/12/2024 2:00 PM OUTREACH CLINICIAN Appointment [facility] MRI [address] [place] [address] [place] [address] [place] [address] 02/16/2024 9:00 AM OUTREACH CLINICIAN Appointment [facility] [address] [place] [address] [place] [address] [place] [address] [place] [address] [place] [address] 02/19/2024 8:45 AM OUTREACH CLINICIAN Appointment [facility] [address] [place] [address] [place] [address] [place] [address] [place] [address] [place] [address] 02/19/2024 9:00 AM OUTREACH CLINICIAN Appointment [facility] [address] [place] [address] [place] [address] [place] [address] [place] [address] [place] [address] 02/23/2024 9:00 AM OUTREACH CLINICIAN Appointment [facility] [address] [place] [address] [place] [address] [place] [address] [place] [address] [place] [address] 02/24/2024 1:30 PM OUTREACH CLINICIAN Appointment [facility] [address] [place] [address] Ihsan Logan, [address] [place] [address] 02/26/2024 9:00 AM OUTREACH CLINICIAN Appointment [facility] [address] [place] [address] [place] [address] [place] [address] [place] [address] [place] [address] 02/26/2024 9:15 AM OUTREACH CLINICIAN Appointment [facility] [address] [place] [address] [place] [address] [place] [address] [place] [address] [place] [address] 03/01/2024 9:00 AM OUTREACH CLINICIAN Appointment [facility] [address] [place] [address] [place] [address] [place] [address] [place] [address] [place] [address] Lorene Branch, TYPEWRITER ALIGNER 03/02/2024 12:27 PM OUTREACH CLINICIAN Hospital Encounter [facility] Surgery [address] [place] [address] [place] [address] [place] [address] 03/02/2024 12:27 PM OUTREACH CLINICIAN - 03/02/2024 1:07 PM OUTREACH CLINICIAN Surgery [facility] [address] [place] [address] [place] [address] [place] [address] MANIPULATION SHOULDER 03/05/2024 9:00 AM OUTREACH CLINICIAN Appointment [facility] [address] [place] [address] [place] [address] [place] [address] Lorene Branch, TYPEWRITER ALIGNER 03/08/2024 9:00 AM OUTREACH CLINICIAN Appointment [facility] [address] [place] [address] [place] [address] [place] [address] Lorene Branch, TYPEWRITER ALIGNER 03/11/2024 9:15 AM OUTREACH CLINICIAN Appointment [facility] [address] [place] [address] [place] [address] [place] [address] Lorene Branch, TYPEWRITER ALIGNER 03/15/2024 9:00 AM OUTREACH CLINICIAN Appointment [facility] [address] [place] [address] [place] [address] [place] [address] Lorene Branch, TYPEWRITER ALIGNER 03/18/2024 9:15 AM OUTREACH CLINICIAN Appointment [facility] [address] [place] [address] [place] [address] [place] [address] [place] [address] Lorene Branch, TYPEWRITER ALIGNER 03/22/2024 9:00 AM OUTREACH CLINICIAN Appointment [facility] [address] [place] [address] [place] [address] [place] [address] Lorene Branch, TYPEWRITER ALIGNER 03/25/2024 9:15 AM OUTREACH CLINICIAN Appointment [facility] [address] [place] [address] [place] [address] [address], [place] [address] Lorene Branch, TYPEWRITER ALIGNER 04/21/2024 11:20 AM OUTREACH CLINICIAN Office Visit [facility] Family & Internal Medicine [facility] [address] [place] [phone] [place] [address] [place] [address] Scheduled Procedures Name Priority Associated Diagnoses Date/Ti me MANIPULATION SHOULDER Adhesive capsulitis of left shoulder 03/02/2024 12:27 PM OUTREACH CLINICIAN INJECTION JOINT Adhesive capsulitis of left shoulder 03/02/2024 12:27 PM OUTREACH CLINICIAN documented as of this encounter Visit Diagnoses Diagnosis Left shoulder pain- Primary Pain in joint, shoulder region Adhesive capsulitis of left shoulder Adhesive capsulitis of shoulder documented in this encounter Additional Health Concerns Assessment Noted Time PHQ-9 Depression Total Score: 24 024 3:24 PM CDT documented as of this encounter Care Teams Logistics Coordinator Relationship Specialty Start Date End Date Holger Soriano [place] [id number] [place] [address] PCP - General Physician Lead Sharepoint Developer Medical 09/16/23 documented as of this encounter
--- OUTSIDE RECORDS SUMMARY | 2024-02-12 08:29 | XMS_ITS | Encounter Summary ---
Author Organization [facility] Address [facility]. [place], [place] [address] [place] [address] Care Team Providers Care Gastroenterology Physician Name Role Phone Holger Soriano Primary Care Provider [phone] Reason for Visit * Reason Comments Back Pain Shoulder Pain * Physical Medicine (Urgent) - Authorized Specialty Diagnoses / Procedures Referred By Shmuel t Referred To Contact PHYSICAL THERAPY Diagnoses Left shoulder pain Low back pain Procedures OFFICE/OUTPATIENT NEW LOW MDM 30-44 MINUTES OFFICE/OUTPT VISIT,NEW,LEVL IV OFFICE/OUTPT VISIT,NEW,LEVL V OFFICE/OUTPT VISIT,EST,LEVL III OFFICE/OUTPT VISIT,EST,LEVL IV OFFICE/OUTPT VISIT,[place] [address] [place] [address] Phone: tel: fax: [facility] [address] [place] [address] Phone: tel: fax: Referral ID Status Reason Start Date Expiration Date Visits Requested Visits Authorized [id number] Authorized Physical Therapy 10/13/2023 11/11/2024 99 99 Encounter Details Date Type Department Care Team (Latest Contact Info) Description 11/21/2023 7:45 AM CDT - 11/21/2023 11:59 PM CDT Hospital Encounter [facility] [address] [place], [place] [address] [place] [address] [place] [address] [place] [address] [place] [address] Back Pain; Shoulder Pain Discharge Disposition: Home [...] complication, with long-term current use of insulin ([facility]/HCC HHS/HCC) Take 1 tablet (4 mg total) [...] exacerbated early Oct. 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 Exercise: cervical [...] Modalities Non-Timed Electrical Stimulation Unattended - Minutes- 57339: 15 Electrical Stimulation Unattended - 87864/G0283: IFC to low back x 15 min (supine, bolster under knees) (performed cervical/SH stretches during) Hot Pack - 71290: MHP to L shoulder and low back [...] Timed Code Treatment Minutes : 30 * Pamdaja Haskins, PT - 11/21/2023 7:45 AM CDT [...] 48 year old female who presents to [facility] PT with c/o low back and [...] PT Eval Moderate Complexity - Minutes - 40979: 45 (includes chart review and documentation time) Education Was Education Provided: Yes Topic: ther ex, PT POC, differential diagnosis Recipient: Patient Method: Demonstration, Verbal, Return Demonstration Response: Verbalized understanding, Asked questions PLAN Plan Treatments/Interventions: Therapeutic Activities - 29954, Neuromuscular Re- education - 09309, Gait Training - 40990, Therapeutic Exercise - 31803, Electrical Stimulation Unattended - 39805, Ultrasound - 16068, Mechanical Traction - 76538, Manual Therapy - 87799, Hot/Cold Pack - , Dry Needling - [...] Name: Oumou Middleton Patient : 1975 Patient [facility] [id number] [facility] [address] Dept: [phone] Dept Cosigned by TYLER Weaver at 11/21/2023 10:39 AM CDT documented in this encounter Plan of Treatment Upcoming Encounters Date Type Department Care Team (Late st Contact Info) Description 02/12/2024 9:00 AM SUPPLY CHAIN ENGINEER Appointment [facility] [address] [place] [address] [place] [address] [place] [address] [place] [address] [place] [address] 02/12/2024 2:00 PM SUPPLY CHAIN ENGINEER Appointment [facility] MRI [address] [place] [address] [place] [address] [place] [address] 02/16/2024 9:00 AM SUPPLY CHAIN ENGINEER Appointment [facility] [address] [place] [address] [place] [address] [place] [address] [place] [address] [place] [address] 02/19/2024 8:45 AM SUPPLY CHAIN ENGINEER Appointment [facility] [address] [place] [address] [place] [address] [place] [address] [place] [address] [place] [address] 02/19/2024 9:00 AM SUPPLY CHAIN ENGINEER Appointment [facility] [address] [place] [address] [place] [address] [place] [address] [place] [address] [place] [address] 02/23/2024 9:00 AM SUPPLY CHAIN ENGINEER Appointment [facility] [address] [place] [address] [place] [address] [place] [address] [place] [address] [place] [address] 02/24/2024 1:30 PM SUPPLY CHAIN ENGINEER Appointment [address] [address] [place] [address] [place] [address] 02/26/2024 9:00 AM SUPPLY CHAIN ENGINEER Appointment [facility] [address] [place] [address] [place] [address] [place] [address] [place] [address] [place] [address] 02/26/2024 9:15 AM SUPPLY CHAIN ENGINEER Appointment [facility] [address] [place] [address] [place] [address] [place] [address] [place] [address] [place] [address] 03/01/2024 9:00 AM SUPPLY CHAIN ENGINEER Appointment [facility] [address] [place] [address] [place] [address] [place] [address] [place] [address] [place] [address] Lorene Branch, FARM MACHINERY MECHANIC 03/02/2024 12:27 PM SUPPLY CHAIN ENGINEER Hospital Encounter [facility] Surgery [address] [place] [address] [place] [address] [place] [address] 03/02/2024 12:27 PM SUPPLY CHAIN ENGINEER - 03/02/2024 1:07 PM SUPPLY CHAIN ENGINEER Surgery [facility] Surgery [address] [place] [address] [place] [address] [place] [address] MANIPULATION SHOULDER 03/05/2024 9:00 AM SUPPLY CHAIN ENGINEER Appointment [facility] [address] [place] [address] [place] [address] [place] [address] Lorene Branch, FARM MACHINERY MECHANIC 03/08/2024 9:00 AM SUPPLY CHAIN ENGINEER Appointment [facility] [address] [place] [address] [place] [address] [place] [address] Lorene Branch, FARM MACHINERY MECHANIC 03/11/2024 9:15 AM SUPPLY CHAIN ENGINEER Appointment [facility] [address] [place] [address] [place] [address] [place] [address] Lorene Branch, FARM MACHINERY MECHANIC 03/15/2024 9:00 AM SUPPLY CHAIN ENGINEER Appointment [facility] [address] [place] [address] [place] [address] [place] [address] Lorene Branch, FARM MACHINERY MECHANIC 03/18/2024 9:15 AM SUPPLY CHAIN ENGINEER Appointment [facility] [address] [place] [address] [place] [address] [place] [address] Lorene Branch, FARM MACHINERY MECHANIC 03/22/2024 9:00 AM SUPPLY CHAIN ENGINEER Appointment [facility] [address] [place] [address] [place] [address] [place] [address] Lorene Branch, FARM MACHINERY MECHANIC 03/25/2024 9:15 AM SUPPLY CHAIN ENGINEER Appointment [facility] [address] [place] [address] [place] [address] [place] [address] Lorene Branch PTA 04/21/2024 11:20 AM SUPPLY CHAIN ENGINEER Office Visit [facility] Family & Internal Medicine [facility] [address] [place] [address] [place] [address] [place] [address] Scheduled Procedures Name Priority Associated Diagnoses Date/Ti me MANIPULATION SHOULDER Adhesive capsulitis of left shoulder 03/02/2024 12:27 PM SUPPLY CHAIN ENGINEER INJECTION JOINT Adhesive capsulitis of left shoulder 03/02/2024 12:27 PM SUPPLY CHAIN ENGINEER documented as of this encounter Visit Diagnoses Diagnosis Left shoulder pain- Primary Pain in joint, shoulder region Adhesive capsulitis of left shoulder Adhesive capsulitis of shoulder documented in this encounter Additional Health Concerns Assessment Noted Time PHQ-9 Depression Total Score: 024 3:24 PM CDT documented as of this encounter Care Teams Gastroenterology Physician Relationship Specialty [place] [address] [place] [address] PCP - General Physician [employer] [facility] 09/16/23 documented as of this encounter
--- OUTSIDE RECORDS SUMMARY | 2024-02-12 08:29 | XMS_ITS | Encounter Summary ---
Author Organization [facility] Address [facility]. [place], [place] [address] [place] [address] Care Team Providers Care Flower Grader Name Role Phone Holger Soriano Primary Care Provider [phone] Reason for Visit * Reason Comments Shoulder Pain Back Pain * Physical Medicine (Urgent) - Authorized Specialty Diagnoses / Procedures Referred By Shmuel t Referred To Contact PHYSICAL THERAPY Diagnoses Left shoulder pain Low back pain Procedures OFFICE/OUTPATIENT NEW LOW MDM 30-44 MINUTES OFFICE/OUTPT VISIT,NEW,LEVL IV OFFICE/OUTPT VISIT,NEW,LEVL V OFFICE/OUTPT VISIT,EST,LEVL III OFFICE/OUTPT VISIT,EST,LEVL IV OFFICE/OUTPT VISIT,EST,[place] [address] [place] [address] Phone: tel: fax: [facility] [address] [place] [address] Phone: tel: fax: Referral ID Status Reason Start Date Expiration Date Visits Requested Visits Authorized [id number] Authorized Physical Therapy 10/13/2023 11/11/2024 99 99 Encounter Details Date Type Department Care Team (Latest Contact Info) Description 12/08/2023 4:45 PM CDT - 12/08/2023 11:59 PM CDT Hospital Encounter [facility] [address] [place] [address] [place] [address] [place] [address] [place] [address] [place] [address] Shoulder Pain; Back Pain Discharge Disposition: Home [...] complication, with long-term current use of insulin ([facility]) Take 1 tablet (4 mg total) by [...] exacerbated early Oct. 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 [...] Modalities Non-Timed Electrical Stimulation Unattended - Minutes- 22876: 15 Electrical Stimulation Unattended - 62585/G0283: IFC to low back x 15 min [...] st Contact Info) Description 02/12/2024 9:00 AM BACKWINDER Appointment [facility] [address] [place] [address] [place] [address] [place] [address] [place] [address] [place] [address] 02/12/2024 2:00 PM BACKWINDER Appointment [facility] [address] [place] [address] [place] [address] [place] [address] 02/16/2024 9:00 AM BACKWINDER Appointment [facility] [address] [place] [address] [place] [address] [place] [address] [place] [address] [place] [address] 02/19/2024 8:45 AM BACKWINDER Appointment [facility] [address] [place] [address] [place] [address] [place] [address] [place] [address] [place] [address] 02/19/2024 9:00 AM BACKWINDER Appointment [facility] [address] [place] [address] [place] [address] [place] [address] [place] [address] [place] [address] 02/23/2024 9:00 AM BACKWINDER Appointment [facility] [address] [place] [address] [place] [address] [place] [address] [place] [address] [place] [address] 02/24/2024 1:30 PM BACKWINDER Appointment [facility] [address] [place] [address] [place] [address] [place] [address] 02/26/2024 9:00 AM BACKWINDER Appointment [facility] [address] [place] [address] [place] [address] [place] [address] [place] [address] [place] [address] 02/26/2024 9:15 AM BACKWINDER Appointment [facility] [address] [place] [address] [place] [address] [place] [address] [place] [address] [place] [address] 03/01/2024 9:00 AM BACKWINDER Appointment [facility] [address] [place] [address] [place] [address] [place] [address] [place] [address] [place] [address] Lorene Branch, HYDRO ELECTRIC STATION OPERATOR 03/02/2024 12:27 PM BACKWINDER Hospital Encounter [facility] [address] [place] [address] [place] [address] [place] [address] 03/02/2024 12:27 PM BACKWINDER - 03/02/2024 1:07 PM BACKWINDER Surgery [address] [address] [place] [address] [place] [address] MANIPULATION SHOULDER 03/05/2024 9:00 AM BACKWINDER Appointment [facility] [address] [place] [address] [place] [address] [place] [address] Lorene Branch, HYDRO ELECTRIC STATION OPERATOR 03/08/2024 9:00 AM BACKWINDER Appointment [facility] [address] [place] [address] [place] [address] [place] [address] Lorene Branch, HYDRO ELECTRIC STATION OPERATOR 03/11/2024 9:15 AM BACKWINDER Appointment [facility] [address] [place] [address] [place] [address] [place] [address] Lorene Branch, HYDRO ELECTRIC STATION OPERATOR 03/15/2024 9:00 AM BACKWINDER Appointment [facility] [address] [place] [address] [place] [address] [place] [address] Lorene Branch, HYDRO ELECTRIC STATION OPERATOR 03/18/2024 9:15 AM BACKWINDER Appointment [facility] [address] [place] [address] [place] [address] [place] [address] Lorene Branch, HYDRO ELECTRIC STATION OPERATOR 03/22/2024 9:00 AM BACKWINDER Appointment [facility] [address] [place] [address] [place] [address] [place] [address] Lorene Branch, HYDRO ELECTRIC STATION OPERATOR 03/25/2024 9:15 AM BACKWINDER Appointment [facility] [address] [place] [address] [place] [address] [place] [address] Lorene Branch, HYDRO ELECTRIC STATION OPERATOR 04/21/2024 11:20 AM BACKWINDER Office Visit [facility] Medical Group Family & Internal Medicine - [address] [address] [place] [address] [place] [address] Scheduled Procedures Name Priority Associated Diagnoses Date/Ti me MANIPULATION SHOULDER Adhesive capsulitis of left shoulder 03/02/2024 12:27 PM BACKWINDER INJECTION JOINT Adhesive capsulitis of left shoulder 03/02/2024 12:27 PM BACKWINDER documented as of this encounter Visit Diagnoses Diagnosis Left shoulder pain- Primary Pain in joint, shoulder region Adhesive capsulitis of left shoulder Adhesive capsulitis of shoulder documented in this encounter Additional Health Concerns Assessment Noted Time PHQ-9 Depression Total Score: 024 3:24 PM CDT documented as of this encounter Care Teams Flower Grader Relationship Specialty [place] [address] [place] [address] PCP - General Physician [facility] [employer] 09/16/23 documented as of this encounter
--- OUTSIDE RECORDS SUMMARY | 2024-02-12 08:29 | XMS_ITS | Encounter Summary ---
Author Organization [facility] Address [facility] [place] [address] [place] [address] Care Team Providers Care Supervisor [employer] Name Role Phone Holger Soriano Primary Care Provider [phone] Encounter Details Date Type Department Care Team [...] st Contact Info) Description 02/12/2024 9:00 AM HEAD BAKER Appointment [facility] [address] [place] [address] [place] [address] [place] [address] [place] [address] [place], [place] [address] 02/12/2024 2:00 PM HEAD BAKER Appointment [facility] MRI [address] [place] [address] [place] [address] [place] [address] 02/16/2024 9:00 AM HEAD BAKER Appointment [facility] [address] [place] [address] [place] [address] [place] [address] [place] [address] [place] [address] 02/19/2024 8:45 AM HEAD BAKER Appointment [facility] [address] [place] [address] [place] [address] [place] [address] [place] [address] [place] [address] 02/19/2024 9:00 AM HEAD BAKER Appointment [facility] [address] [place] [address] [place] [address] [place] [address] [place] [address] [place] [address] 02/23/2024 9:00 AM HEAD BAKER Appointment [facility] [address] [place] [address] [place] [address] [place] [address] [place] [address] [place] [address] 02/24/2024 1:30 PM HEAD BAKER Appointment [facility] [address] [place] [address] [place] [address] [place] [address] 02/26/2024 9:00 AM HEAD BAKER Appointment [facility] [address] [place] [address] [place] [address] [place] [address] [place] [address] [place] [address] 02/26/2024 9:15 AM HEAD BAKER Appointment [facility] [address] [place] [address] [place] [address] [place] [address] [place] [address] [place] [address] 03/01/2024 9:00 AM HEAD BAKER Appointment [facility] [address] [place] [address] [place] [address] [place] [address] [place] [address] [place] [address] Lorene Branch, GARAGE SUPERVISOR 03/02/2024 12:27 PM HEAD BAKER Hospital Encounter [facility] [address] [place] [address] [place] [address] [place] [address] 03/02/2024 12:27 PM HEAD BAKER - 03/02/2024 1:07 PM HEAD BAKER Surgery [address] [address] [place] [address] [place] [address] MANIPULATION SHOULDER 03/05/2024 9:00 AM HEAD BAKER Appointment [facility] [address] [place] [address] [place] [address] [place] [address] Lorene Branch, GARAGE SUPERVISOR 03/08/2024 9:00 AM HEAD BAKER Appointment [facility] [address] [place] [address] [place] [address] [place] [address] Lorene Branch, GARAGE SUPERVISOR 03/11/2024 9:15 AM HEAD BAKER Appointment [facility] [address] [place] [address] [place] [address] [place] [address] Lorene Branch, GARAGE SUPERVISOR 03/15/2024 9:00 AM HEAD BAKER Appointment [facility] [address] [place] [address] [place] [address] [place] [address] Lorene Branch, GARAGE SUPERVISOR 03/18/2024 9:15 AM HEAD BAKER Appointment [facility] [address] [place] [address] [place] [address] [place] [address] Lorene Branch, GARAGE SUPERVISOR 03/22/2024 9:00 AM HEAD BAKER Appointment [facility] [address] [place] [address] [place] [address] [place] [address] Lorene Branch, GARAGE SUPERVISOR 03/25/2024 9:15 AM HEAD BAKER Appointment [facility] [address] [place] [address] [place] [address] [place] [address] Lorene Branch, GARAGE SUPERVISOR 04/21/2024 11:20 AM HEAD BAKER Office Visit [facility] Medical Group Family & Internal Medicine - [address] [address] [place] [address] [place] [address] Scheduled Procedures Name Priority Associated Diagnoses Date/Ti me MANIPULATION SHOULDER Adhesive capsulitis of left shoulder 03/02/2024 12:27 PM HEAD BAKER INJECTION JOINT Adhesive capsulitis of left shoulder 03/02/2024 12:27 PM HEAD BAKER documented as of this encounter Visit Diagnoses Not on filedocumented in this encounter Additional Health Concerns Assessment Noted Time PHQ-9 Depression Total Score: 024 3:24 PM CDT documented as of this encounter Care Teams Supervisor [employer] Relationship Specialty [place] [address] [place] [address] PCP - General Physician Type [employer] [facility] 09/16/23 documented as of this encounter
--- OUTSIDE RECORDS SUMMARY | 2024-02-12 08:29 | XMS_ITS | Encounter Summary ---
Author Organization [facility] Address [facility] [place] [address] [place] [address] Care Team Providers Care General Farmer Name Role Phone Holger Soriano Primary Care Provider [phone] Reason for Visit * Reason Comments Sinus Problem Stuffy head, drainag e, pressure to eyes-no fever-x1 week Encounter Details Date Type Department Care Team (Late st Contact Info) Description 12/02/2023 3:20 PM CDT Office Visit [facility] Family & Internal Medicine [facility] [id number] [place] [phone] [place] [id number] [place] [address] Sinus Problem (Stuffy head, drainage, pressure [...] Care Everywhere. * Sinusitis Discharge Instructions, Adult (Macedonian) documented in this encounter Progress Notes * [...] Medical History: Diagnosis Date ADHD Asthma ([facility]) COPD (chronic obstructive pulmonary disease) ([facility]) History reviewed. No pertinent surgical history. [...] Portions of this note were dictated using [email or web address] speech recognition software. Occasional wrong wordor sound-alike [...] st Contact Info) Description 02/12/2024 9:00 AM ANILINE PRESS WORKER Appointment [facility] Outpatient Rehab [address] [place], [place] [id number] [place] [address] [place] [address] [place] [address] [place] [address] 02/12/2024 2:00 PM ANILINE PRESS WORKER Appointment [facility] MRI [address] [place] [address] [place] [address] [place] [address] 02/16/2024 9:00 AM ANILINE PRESS WORKER Appointment [facility] Outpatient Rehab [address] [place] [address] [place] [address] [place] [address] [place] [address] [place] [address] 02/19/2024 8:45 AM ANILINE PRESS WORKER Appointment [facility] Outpatient Rehab [address] [place] [address] [place] [address] [place] [address] [place] [address] [place] [address] 02/19/2024 9:00 AM ANILINE PRESS WORKER Appointment [facility] Outpatient Rehab [address] [place] [address] [place] [address] [place] [address] [place] [address] [place] [address] 02/23/2024 9:00 AM ANILINE PRESS WORKER Appointment [facility] Outpatient Rehab [address] [place] [address] [place] [address] [place] [address] [place] [address] [place] [address] 02/24/2024 1:30 PM ANILINE PRESS WORKER Appointment [facility] MRI [address] [place] [address] Ihsan Logan, [address] [place] [address] 02/26/2024 9:00 AM ANILINE PRESS WORKER Appointment [facility] Outpatient Rehab [address] [place] [address] [place] [address] [place] [address] [place] [address] [place] [address] 02/26/2024 9:15 AM ANILINE PRESS WORKER Appointment [facility] Outpatient Rehab [address] [place] [address] [place] [address] [place] [address] [place] [address] [place] [address] 03/01/2024 9:00 AM ANILINE PRESS WORKER Appointment [facility] Outpatient Rehab [address] [place] [address] [place] [address] [place] [address] [place] [address] [place] [address] Lorene Branch, [employer] 03/02/2024 12:27 PM ANILINE PRESS WORKER Hospital Encounter [facility] Surgery [address] [place] [address] [place] [address] [place] [address] 03/02/2024 12:27 PM ANILINE PRESS WORKER - 03/02/2024 1:07 PM ANILINE PRESS WORKER Surgery [facility] Surgery [address] [place] [address] [place] [address] [place] [address] MANIPULATION SHOULDER 03/05/2024 9:00 AM ANILINE PRESS WORKER Appointment [facility] Outpatient Rehab [address] [place] [address] [place] [address] [place] [address] Lorene Branch, [employer] 03/08/2024 9:00 AM ANILINE PRESS WORKER Appointment [facility]hab [address] [place] [address] [place] [address] [place] [address] Lorene Branch, [employer] 03/11/2024 9:15 AM ANILINE PRESS WORKER Appointment [facility] [address] [place] [address] [place] [address] [place] [address] Lorene Branch, [employer] 03/15/2024 9:00 AM ANILINE PRESS WORKER Appointment [facility]hab [address] [place] [address] [place] [address] [place] [address] Lorene Branch, [employer] 03/18/2024 9:15 AM ANILINE PRESS WORKER Appointment [facility]hab [address] [place] [address] [place] [address] [place] [address] Lorene Branch, [employer] 03/22/2024 9:00 AM ANILINE PRESS WORKER Appointment [facility] [address] [place] [address] [place] [address] [place] [address] Lorene Branch, [employer] 03/25/2024 9:15 AM ANILINE PRESS WORKER Appointment [facility]hab [address] [place] [address] [place] [address] [place] [address] Lorene Branch, [employer] 04/21/2024 11:20 AM ANILINE PRESS WORKER Office Visit [facility] Family & Internal Medicine - [address] [phone] Holger Soriano PA [address] [place] [address] Scheduled Procedures Name Priority Associated Diagnoses Date/Ti me MANIPULATION SHOULDER Adhesive capsulitis of left shoulder 03/02/2024 12:27 PM ANILINE PRESS WORKER INJECTION JOINT Adhesive capsulitis of left shoulder 03/02/2024 12:27 PM ANILINE PRESS WORKER documented as of this encounter Visit Diagnoses Diagnosis Acute non-recurrent frontal sinusitis- Primary Adhesive capsulitis of left shoulder Adhesive capsulitis of shoulder documented in this encounter Additional Health Concerns Assessment Noted Time PHQ-9 Depression Total Score: 024 3:24 PM CDT documented as of this encounter Care Teams General Farmer Relationship Specialty [place] [address] [place] [address] PCP - General Physician Coal Trimmer Machine Operator Medical 09/16/23 documented as of this encounter
--- OUTSIDE RECORDS SUMMARY | 2024-02-12 08:29 | XMS_ITS | Encounter Summary ---
Author Organization [facility] Address [facility] [place] [address] [place] [address] Care Team Providers Care Brand Ambassador Name Role Phone Holger Soriano Primary Care Provider [phone] Encounter Details Date Type Department Care Team [...] st Contact Info) Description 02/12/2024 9:00 AM DRAGLINE ENGINEER Appointment [facility] Outpatient Rehab [address] [place] [address] [place] [address] [place] [address] [place] [address] [place] [id number] 02/12/2024 2:00 PM DRAGLINE ENGINEER Appointment [facility] MRI [address] [place] [address] [place] [address] [place] [address] 02/16/2024 9:00 AM DRAGLINE ENGINEER Appointment [facility] Outpatient Rehab [address] [place] [address] [place] [address] [place] [address] [place] [address] [place] [address] 02/19/2024 8:45 AM DRAGLINE ENGINEER Appointment [facility] Outpatient Rehab [address] [place] [address] [place] [address] [place] [address] [place] [address] [place] [address] 02/19/2024 9:00 AM DRAGLINE ENGINEER Appointment [facility] Outpatient Rehab [address] [place] [address] [place] [address] [place] [address] [place] [address] [place] [address] 02/23/2024 9:00 AM DRAGLINE ENGINEER Appointment [facility] Outpatient Rehab [address] [place] [address] [place] [address] [place] [address] [place] [address] [place] [address] 02/24/2024 1:30 PM DRAGLINE ENGINEER Appointment [facility] [address] [place] [address] [place] [address] [place] [address] 02/26/2024 9:00 AM DRAGLINE ENGINEER Appointment [facility] Outpatient Rehab [address] [place] [address] [place] [address] [place] [address] [place] [address] [place] [address] 02/26/2024 9:15 AM DRAGLINE ENGINEER Appointment [facility] Outpatient Rehab [address] [place] [address] [place] [address] [place] [address] [place] [address] [place] [address] 03/01/2024 9:00 AM DRAGLINE ENGINEER Appointment [facility] Outpatient Rehab [address] [place] [address] [place] [address] [place] [address] [place] [address] [place] [address] Lorene Branch, APPLICATION DESIGNER 03/02/2024 12:27 PM DRAGLINE ENGINEER Hospital Encounter [facility] [id number] [place] [address] [place] [address] [place] [address] 03/02/2024 12:27 PM DRAGLINE ENGINEER - 03/02/2024 1:07 PM DRAGLINE ENGINEER Surgery [address] [address] [place] [address] [place] [address] MANIPULATION SHOULDER 03/05/2024 9:00 AM DRAGLINE ENGINEER Appointment [facility] Outpatient Rehab [address] [place] [address] [place] [address] [place] [address] Lorene Branch, APPLICATION DESIGNER 03/08/2024 9:00 AM DRAGLINE ENGINEER Appointment [facility] Outpatient Rehab [address] [place] [address] [place] [address] [place] [address] Lorene Branch, APPLICATION DESIGNER 03/11/2024 9:15 AM DRAGLINE ENGINEER Appointment [facility] Outpatient Rehab [address] [place] [address] [place] [address] [place] [address] Lorene Branch, APPLICATION DESIGNER 03/15/2024 9:00 AM DRAGLINE ENGINEER Appointment [facility] [address] [place] [address] [place] [address] [place] [address] Lorene Branch, APPLICATION DESIGNER 03/18/2024 9:15 AM DRAGLINE ENGINEER Appointment [facility] [address] [place] [address] [place] [address] [place] [address] Lorene Branch, APPLICATION DESIGNER 03/22/2024 9:00 AM DRAGLINE ENGINEER Appointment [facility] [address] [place] [address] [place] [address] [place] [address] Lorene Branch, APPLICATION DESIGNER 03/25/2024 9:15 AM DRAGLINE ENGINEER Appointment [facility] [address] [place] [address] [place] [address] [place] [address] Lorene Branch, APPLICATION DESIGNER 04/21/2024 11:20 AM DRAGLINE ENGINEER Office Visit [facility] Family & Internal Medicine - [address] [address] [place] [address] [place] [address] Scheduled Procedures Name Priority Associated Diagnoses Date/Ti me MANIPULATION SHOULDER Adhesive capsulitis of left shoulder 03/02/2024 12:27 PM DRAGLINE ENGINEER INJECTION JOINT Adhesive capsulitis of left shoulder 03/02/2024 12:27 PM DRAGLINE ENGINEER documented as of this encounter Visit Diagnoses Not on filedocumented in this encounter Additional Health Concerns Assessment Noted Time PHQ-9 Depression Total Score: 024 3:24 PM CDT documented as of this encounter Care Teams Brand Ambassador Relationship Specialty [place] [address] [place] [address] PCP - General Physician Skip Hoist Operator Medical 09/16/23 documented as of this encounter
--- OUTSIDE RECORDS SUMMARY | 2024-02-12 08:29 | XMS_ITS | Encounter Summary ---
Author Organization [facility] Address [facility]. [place], [place] [address] [place] [address] Care Team Providers Care Pool Finisher Name Role Phone Holger Soriano Primary Care Provider [phone] Reason for Visit * Reason Comments Back Pain Shoulder Pain * Physical Medicine (Urgent) - Authorized Specialty Diagnoses / Procedures Referred By Shmuel t Referred To Contact PHYSICAL THERAPY Diagnoses Left shoulder pain Low back pain Procedures OFFICE/OUTPATIENT NEW LOW MDM 30-44 MINUTES OFFICE/OUTPT VISIT,NEW,LEVL IV OFFICE/OUTPT VISIT,NEW,LEVL V OFFICE/OUTPT VISIT,EST,LEVL III OFFICE/OUTPT VISIT,EST,LEVL IV OFFICE/OUTPT VISIT,EST[place] [address] [place] [address] Phone: tel: fax: [facility] [address] [place] [address] Phone: tel: fax: Referral ID Status Reason Start Date Expiration Date Visits Requested Visits Authorized [id number] Authorized Physical Therapy 10/13/2023 11/11/2024 99 99 Encounter Details Date Type Department Care Team (Latest Contact Info) Description 11/24/2023 9:00 AM CDT - 11/24/2023 11:59 PM CDT Hospital Encounter [facility] [address] [place], [place] [id number] [place] [address] [place] [address] Era [employer] PTA Back Pain; Shoulder Pain [...] complication, with long-term current use of insulin ([facility]/HCC HHS/HCC) Take 1 tablet (4 mg [...] exacerbated early Oct. 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[employer], [employer] Job Duties: Has help at work to lift things currently Subjective Note: My SH is stiff and sore. My back is much looser. 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hab [address] [place] [address] [place] [address] [place] [address] [place] [address] [place] [address] 02/12/2024 2:00 PM KNOWLEDGE ENGINEER Appointment [facility] MRI [address] [place] [address] [place] [address] [place] [address] 02/16/2024 9:00 AM KNOWLEDGE ENGINEER Appointment [facility] [address] [place] [address] [place] [address] [place] [address] [place] [address] [place] [address] 02/19/2024 8:45 AM KNOWLEDGE ENGINEER Appointment [facility] [address] [place] [address] [place] [address] [place] [address] [place] [address] [place] [address] 02/19/2024 9:00 AM KNOWLEDGE ENGINEER Appointment [facility] [address] [place] [address] [place] [address] [place] [address] [place] [address] [place] [address] 02/23/2024 9:00 AM KNOWLEDGE ENGINEER Appointment [facility] [address] [place] [address] [place] [address] [place] [address] [place] [address] [place] [address] 02/24/2024 1:30 PM KNOWLEDGE ENGINEER Appointment [facility] [address] [place] [address] [place] [address] [place] [address] 02/26/2024 9:00 AM KNOWLEDGE ENGINEER Appointment [facility] [address] [place] [address] [place] [address] [place] [address] [place] [address] [place] [address] 02/26/2024 9:15 AM KNOWLEDGE ENGINEER Appointment [facility] [address] [place] [address] [place] [address] [place] [address] [place] [address] [place] [address] 03/01/2024 9:00 AM KNOWLEDGE ENGINEER Appointment [facility] [address] [place] [address] [place] [address] [place] [address] [place] [address] [place] [address] Lorene Branch, PIZZA DELIVERY 03/02/2024 12:27 PM KNOWLEDGE ENGINEER Hospital Encounter [facility] Surgery [address] [place] [address] [place] [address] [place] [address] 03/02/2024 12:27 PM KNOWLEDGE ENGINEER - 03/02/2024 1:07 PM KNOWLEDGE ENGINEER Surgery [facility] [address] [place] [address] [place] [address] [place] [address] MANIPULATION SHOULDER 03/05/2024 9:00 AM KNOWLEDGE ENGINEER Appointment [facility] [address] [place] [address] [place] [address] [place] [address] Lorene Branch, PIZZA DELIVERY 03/08/2024 9:00 AM KNOWLEDGE ENGINEER Appointment [facility] [address] [place] [address] [place] [address] [place] [address] Lorene Branch, PIZZA DELIVERY 03/11/2024 9:15 AM KNOWLEDGE ENGINEER Appointment [facility] [address] [place] [address] [place] [address] [place] [address] Lorene Branch, PIZZA DELIVERY 03/15/2024 9:00 AM KNOWLEDGE ENGINEER Appointment [facility] [address] [place] [address] [place] [address] [place] [address] Lorene Branch, PIZZA DELIVERY 03/18/2024 9:15 AM KNOWLEDGE ENGINEER Appointment [facility] [address] [place] [address] [place] [address] [place] [address] Lorene Branch, PIZZA DELIVERY 03/22/2024 9:00 AM KNOWLEDGE ENGINEER Appointment [facility] [address] [place] [address] [place] [address] [place] [address] Lorene Branch, PIZZA DELIVERY 03/25/2024 9:15 AM KNOWLEDGE ENGINEER Appointment [facility] [address] [place] [address] [place] [address] [place] [address] Lorene Branch, PIZZA DELIVERY 04/21/2024 11:20 AM KNOWLEDGE ENGINEER Office Visit [facility] Family & Internal Medicine - [address] [address] [place] [address] [place] [address] Scheduled Procedures Name Priority Associated Diagnoses Date/Ti me MANIPULATION SHOULDER Adhesive capsulitis of left shoulder 03/02/2024 12:27 PM KNOWLEDGE ENGINEER INJECTION JOINT Adhesive capsulitis of left shoulder 03/02/2024 12:27 PM KNOWLEDGE ENGINEER documented as of this encounter Visit Diagnoses Diagnosis Left shoulder pain- Primary Pain in joint, shoulder region Adhesive capsulitis of left shoulder Adhesive capsulitis of shoulder documented in this encounter Additional Health Concerns Assessment Noted Time PHQ-9 Depression Total Score: 24 024 3:24 PM CDT documented as of this encounter Care Teams Pool Finisher Relationship Specialty [place] [address] [place] [address] PCP - General Physician Director Social Service Medical 09/16/23 documented as of this encounter
--- OUTSIDE RECORDS SUMMARY | 2024-02-12 08:29 | XMS_ITS | Encounter Summary ---
Author Organization [facility] Address [facility] [place] [address] [place] [address] Care Team Providers Care Golf Tournament Consultant Name Role Phone Holger Soriano Primary Care Provider [phone] Encounter Details Date Type Department Care Team [...] st Contact Info) Description 02/12/2024 9:00 AM STORE ASSISTANT Appointment [facility] [address] [place] [address] [place] [address] [place] [address] [place] [address] [place], [place] [id number] 02/12/2024 2:00 PM STORE ASSISTANT Appointment [facility] [address] [place] [address] [place] [address] [place] [address] 02/16/2024 9:00 AM STORE ASSISTANT Appointment [facility] [address] [place] [address] [place] [address] [place] [address] [place] [address] [place] [address] 02/19/2024 8:45 AM STORE ASSISTANT Appointment [facility] [address] [place] [address] [place] [address] [place] [address] [place] [address] [place] [address] 02/19/2024 9:00 AM STORE ASSISTANT Appointment [facility] [address] [place] [address] [place] [address] [place] [address] [place] [address] [place] [address] 02/23/2024 9:00 AM STORE ASSISTANT Appointment [facility] [address] [place] [address] [place] [address] [place] [address] [place] [address] [place] [address] 02/24/2024 1:30 PM STORE ASSISTANT Appointment [facility] [address] [place] [address] [place] [address] [place] [address] 02/26/2024 9:00 AM STORE ASSISTANT Appointment [facility] [address] [place] [address] [place] [address] [place] [address] [place] [address] [place] [address] 02/26/2024 9:15 AM STORE ASSISTANT Appointment [facility] [address] [place] [address] [place] [address] [place] [address] [place] [address] [place] [address] 03/01/2024 9:00 AM STORE ASSISTANT Appointment [facility] [address] [place] [address] [place] [address] [place] [address] [place] [address] [place] [address] Lorene Branch, MANAGER RESTAURANT 03/02/2024 12:27 PM STORE ASSISTANT Hospital Encounter [facility] [address] [place] [address] [place] [address] [place] [address] 03/02/2024 12:27 PM STORE ASSISTANT - 03/02/2024 1:07 PM STORE ASSISTANT Surgery [address] [address] [place] [address] [place] [address] MANIPULATION SHOULDER 03/05/2024 9:00 AM STORE ASSISTANT Appointment [facility] [address] [place] [address] [place] [address] [place] [address] Lorene Branch, MANAGER RESTAURANT 03/08/2024 9:00 AM STORE ASSISTANT Appointment [facility] [address] [place] [address] [place] [address] [place] [address] Lorene Branch, MANAGER RESTAURANT 03/11/2024 9:15 AM STORE ASSISTANT Appointment [facility] [address] [place] [address] [place] [address] [place] [address] Lorene Branch, MANAGER RESTAURANT 03/15/2024 9:00 AM STORE ASSISTANT Appointment [facility] [address] [place] [address] [place] [address] [place] [address] Lorene Branch, MANAGER RESTAURANT 03/18/2024 9:15 AM STORE ASSISTANT Appointment [facility] [address] [place] [address] [place] [address] [place] [address] Lorene Branch, MANAGER RESTAURANT 03/22/2024 9:00 AM STORE ASSISTANT Appointment [facility] [address] [place] [address] [place] [address] [place] [address] Lorene Branch, MANAGER RESTAURANT 03/25/2024 9:15 AM STORE ASSISTANT Appointment [facility] [address] [place] [address] [place] [address] [place] [address] Lorene Branch, MANAGER RESTAURANT 04/21/2024 11:20 AM STORE ASSISTANT Office Visit [facility] Family & Internal Medicine - [address] [phone] [place] [address] [place] [address] Scheduled Procedures Name Priority Associated Diagnoses Date/Ti me MANIPULATION SHOULDER Adhesive capsulitis of left shoulder 03/02/2024 12:27 PM STORE ASSISTANT INJECTION JOINT Adhesive capsulitis of left shoulder 03/02/2024 12:27 PM STORE ASSISTANT documented as of this encounter Visit Diagnoses Not on filedocumented in this encounter Additional Health Concerns Assessment Noted Time PHQ-9 Depression Total Score: 024 3:24 PM CDT documented as of this encounter Care Teams Golf Tournament Consultant Relationship Specialty [place] [address] [place] [address] PCP - General Physician Vice President Medical Affairs Medical 09/16/23 documented as of this encounter
--- OUTSIDE RECORDS SUMMARY | 2024-02-12 08:29 | XMS_ITS | Encounter Summary ---
Author Organization [facility] Address [facility] [place], [place] [address] [place] [address] Care Team Providers Care Hydro Electric Station Operator Name Role Phone Holger Soriano Primary Care Provider [phone] Reason for Visit * Reason Comments Shoulder Pain Shoulder Re-eval * Physical Medicine (Urgent) - Authorized Specialty Diagnoses / Procedures Referred By Shmuel angel Referred To Contact PHYSICAL THERAPY Diagnoses Left shoulder pain Low back pain Procedures OFFICE/OUTPATIENT NEW LOW MDM 30-44 MINUTES OFFICE/OUTPT VISIT,NEW,LEVL IV OFFICE/OUTPT VISIT,NEW,LEVL V OFFICE/OUTPT VISIT,EST,LEVL III OFFICE/OUTPT VISIT,EST,LEVL IV OFFICE/OUTPT VISIT,EST,[place] [address] [place] [address] Phone: tel: fax: [facility] [address] [place] [address] Phone: tel: fax: Referral ID Status Reason Start Date Expiration Date Visits Requested Visits Authorized [id number] Authorized Physical Therapy 10/13/2023 11/11/2024 99 99 Encounter Details Date Type Department Care Team (Latest Contact Info) Description 12/04/2023 9:33 AM CDT - 12/04/2023 11:59 PM CDT Hospital Encounter [facility] [address] [place] [address] [place] [address] [place], [place] [address] [place] [address] [place], [place] [id number] Shoulder Pain (Shoulder Re-eval/) Discharge Disposition: Home [...] complication, with long-term current use of insulin ([facility]) Take 1 tablet (4 mg total) by mouth every 8 (eight) hours as needed for Nausea. 20 tablet 11/19/2023 4 progesterone (PROMETRIUM) 100 MG capsuleIndication s:Menopausal and female climacteric states take 1 capsule by mouth every day 90 capsule 1 06/10/2023 4 documented as of this encounter Progress Notes * Padmaja Marcia Marie, PT - 12/04/2023 10:[address] [facility] [address] [facility] [address] Dept: [phone] Dept Physical Therapy Recertification Patient name: Oumou [...] Physical Therapy Visit Note: Patient Name: Oumou Middlteon Diagnosis: Left shoulder pain (primary encounter diagnosis) [...] exacerbated early Oct. 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 Info) Description 02/12/2024 9:00 AM CORE PASTER App[address] [facility] [address] [place] [address] [place] [address] [place] [address] [place] [address] [place] [address] 02/12/2024 2:00 PM CORE PASTER Appointment [facility] [address] [place] [address] [place] [address] [place] [address] 02/16/2024 9:00 AM CORE PASTER Appointment [facility] [address] [place] [address] [place] [address] [place] [address] [place] [address] [place] [address] 02/19/2024 8:45 AM CORE PASTER Appointment [facility] [address] [place] [address] [place] [address] [place] [address] [place] [address] [place] [address] 02/19/2024 9:00 AM CORE PASTER Appointment [facility] [address] [place] [address] [place] [address] [place] [address] [place] [address] [place] [address] 02/23/2024 9:00 AM CORE PASTER Appointment [facility] [address] [place] [address] [place] [address] [place] [address] [place] [address] [place] [address] 02/24/2024 1:30 PM CORE PASTER Appointment [facility] [address] [place] [address] Ihsan Logan, [address] [place] [address] 02/26/2024 9:00 AM CORE PASTER Appointment [facility] [address] [place] [address] [place] [address] [place] [address] [place] [address] [place] [id number] 02/26/2024 9:15 AM CORE PASTER Appointment [facility] [address] [place] [address] [place] [address] [place] [address] [place] [address] [place] [address] 03/01/2024 9:00 AM CORE PASTER Appointment [facility] [address] [place] [address] [place] [address] [place] [address] [place] [address] [place] [address] Lorene Branch, WEB SITE SPECIALIST 03/02/2024 12:27 PM CORE PASTER Hospital Encounter [facility] [address] [place] [address] [place] [address] [place] [address] 03/02/2024 12:27 PM CORE PASTER - 03/02/2024 1:07 PM CORE PA[address] Surgery [facility] [address] [place] [address] [place] [address] [place] [address] MANIPULATION SHOULDER 03/05/2024 9:00 AM CORE PASTER Appointment [facility] [address] [place] [address] [place] [address] [place] [address] Lorene Branch, WEB SITE SPECIALIST 03/08/2024 9:00 AM CORE PASTER Appointment [facility] [address] [place] [address] [place] [address] [place] [address] Lorene Branch, WEB SITE SPECIALIST 03/11/2024 9:15 AM CORE PASTER Appointment [facility] [address] [place] [address] [place] [address] [place] [address] Lorene Branch, WEB SITE SPECIALIST 03/15/2024 9:00 AM CORE PASTER Appointment [facility] [address] [place] [address] [place] [address] [place] [address] Lorene Branch, WEB SITE SPECIALIST 03/18/2024 9:15 AM CORE PASTER Appointment [facility] [address] [place] [address] [place] [address] [place] [address] Lorene Branch, WEB SITE SPECIALIST 03/22/2024 9:00 AM CORE PASTER Appointment [facility] [address] [place] [address] [place] [address] [place] [address] Lorene Branch, WEB SITE SPECIALIST 03/25/2024 9:15 AM CORE PASTER Appointment [facility] [address] [place] [address] [place] [address] [place] [address] Lorene Branch, WEB SITE SPECIALIST 04/21/2024 11:20 AM CORE PASTER Office Visit [facility] Family & Internal Medicine [facility] [address] [place] [phone] [place] [address] [place], [place] [id number] Scheduled Procedures Name Priority Associated Diagnoses Date/Ti me MANIPULATION SHOULDER Adhesive capsulitis of left shoulder 03/02/2024 12:27 PM CORE PASTER INJECTION JOINT Adhesive capsulitis of left shoulder 03/02/2024 12:27 PM CORE PASTER documented as of this encounter Visit Diagnoses Diagnosis Left shoulder pain- Primary Pain in joint, shoulder region Adhesive capsulitis of left shoulder Adhesive capsulitis of shoulder documented in this encounter Additional Health Concerns Assessment Noted Time PHQ-9 Depression Total Score: 024 3:24 PM CDT documented as of this encounter Care Teams Hydro Electric Station Operator Relationship Specialty [place] [address] [place] [address] PCP - General Physician Wire Web Worker Medical 09/16/23 documented as of this encounter
--- OUTSIDE RECORDS SUMMARY | 2024-02-12 08:29 | XMS_ITS | Encounter Summary ---
Author Organization [facility] Address [facility]6 [facility] [place], [place] [address] [place] [address] Care Team Providers Care Dictaphone Operator Name Role Phone Holger Soriano Primary Care Provider [phone] Reason for Visit * Reason Comments Shoulder Pain Back Pain * Physical Medicine (Urgent) - Authorized Specialty Diagnoses / Procedures Referred By Smhuel t Referred To Contact PHYSICAL THERAPY Diagnoses Left shoulder pain Low back pain Procedures OFFICE/OUTPATIENT NEW LOW MDM 30-44 MINUTES OFFICE/OUTPT VISIT,NEW,LEVL IV OFFICE/OUTPT VISIT,NEW,LEVL V OFFICE/OUTPT VISIT,EST,LEVL III OFFICE/OUTPT VISIT,EST,LEVL IV OFFICE/OUTPT VISIT,EST,[place] [address] [place] [address] Phone: tel: fax: [facility] [address] [place] [address] Phone: tel: fax: Referral ID Status Reason Start Date Expiration Date Visits Requested Visits Authorized [id number] Authorized Physical Therapy 10/13/2023 11/11/2024 99 99 Encounter Details Date Type Department Care Team (Latest Contact Info) Description 11/27/2023 3:30 PM CDT - 11/27/2023 11:59 PM CDT Hospital Encounter [facility] [address] [place] [address] [place] [address] [place] [address] [place] [address] [place] [address] Shoulder Pain; Back Pain Discharge Disposition: Home [...] exacerbated early Oct. 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 PROM: gentle, [...] wall Modalities Non-Timed Electrical Stimulation Unattended - 04929/G0283: HELD TODAY- IFC to low back x 15 min (supine, bolster under knees) (performed cervical/SH stretches during) Hot Pack - 55098: MHP to L shoulder and low back [...] st Contact Info) Description 02/12/2024 9:00 AM SALES ASSISTANTS AND SALESPERSONS Appointment [facility] [address] [place], [place] [address] [place] [address] [place], [place] [address] [place] [address] [place] [address] 02/12/2024 2:00 PM SALES ASSISTANTS AND SALESPERSONS Appointment [facility] [address] [place] [address] [place] [address] [place] [address] 02/16/2024 9:00 AM SALES ASSISTANTS AND SALESPERSONS Appointment [facility] [address] [place] [address] [place] [address] [place] [address] [place] [address] [place] [address] 02/19/2024 8:45 AM SALES ASSISTANTS AND SALESPERSONS Appointment [facility] [address] [place] [address] [place] [address] [place] [address] [place] [address] [place] [address] 02/19/2024 9:00 AM SALES ASSISTANTS AND SALESPERSONS Appointment [facility] [address] [place] [address] [place] [address] [place] [address] [place] [address] [place] [address] 02/23/2024 9:00 AM SALES ASSISTANTS AND SALESPERSONS Appointment [facility] [address] [place] [address] [place] [address] [place] [address] [place] [address] [place] [address] 02/24/2024 1:30 PM SALES ASSISTANTS AND SALESPERSONS Appointment [facility] [address] [place] [address] [place] [address] [place] [address] 02/26/2024 9:00 AM SALES ASSISTANTS AND SALESPERSONS Appointment [facility] [address] [place] [address] [place] [address] [place] [address] [place] [address] [place] [address] 02/26/2024 9:15 AM SALES ASSISTANTS AND SALESPERSONS Appointment [facility] [address] [place] [address] [place] [address] [place] [address] [place] [address] [place] [address] 03/01/2024 9:00 AM SALES ASSISTANTS AND SALESPERSONS Appointment [facility] [address] [place] [address] [place] [address] [place] [address] [place] [address] [place] [address] Lorene Branch, APPRAISER ART 03/02/2024 12:27 PM SALES ASSISTANTS AND SALESPERSONS Hospital Encounter [address] [address] [place] [address] [place] [address] 03/02/2024 12:27 PM SALES ASSISTANTS AND SALESPERSONS - 03/02/2024 1:07 PM SALES ASSISTANTS AND SALESPERSONS Surgery [address] [address] [place] [address] [place] [address] MANIPULATION SHOULDER 03/05/2024 9:00 AM SALES ASSISTANTS AND SALESPERSONS Appointment [facility] [address] [place] [address] [place] [address] [place] [address] Lorene Branch, APPRAISER ART 03/08/2024 9:00 AM SALES ASSISTANTS AND SALESPERSONS Appointment [facility] [address] [place] [address] [place] [address] [place] [address] Lorene Branch, APPRAISER ART 03/11/2024 9:15 AM SALES ASSISTANTS AND SALESPERSONS Appointment [facility] [address] [place] [address] [place] [address] [place] [address] Lorene Branch, APPRAISER ART 03/15/2024 9:00 AM SALES ASSISTANTS AND SALESPERSONS Appointment [facility] [address] [place] [address] [place] [address] [place] [address] Lorene Branch, APPRAISER ART 03/18/2024 9:15 AM SALES ASSISTANTS AND SALESPERSONS Appointment [facility] [address] [place] [address] [place] [address] [place] [address] Lorene Branch, APPRAISER ART 03/22/2024 9:00 AM SALES ASSISTANTS AND SALESPERSONS Appointment [facility] [address] [place] [address] [place] [address] [place] [address] Lorene Branch, APPRAISER ART 03/25/2024 9:15 AM SALES ASSISTANTS AND SALESPERSONS Appointment [facility] [address] [place] [address] [place] [address] [place] [address] Lorene Branch, APPRAISER ART 04/21/2024 11:20 AM SALES ASSISTANTS AND SALESPERSONS Office Visit [facility] Family & Internal Medicine - [address] [phone] [place] [address] [place] [address] Scheduled Procedures Name Priority Associated Diagnoses Date/Ti me MANIPULATION SHOULDER Adhesive capsulitis of left shoulder 03/02/2024 12:27 PM SALES ASSISTANTS AND SALESPERSONS INJECTION JOINT Adhesive capsulitis of left shoulder 03/02/2024 12:27 PM SALES ASSISTANTS AND SALESPERSONS documented as of this encounter Visit Diagnoses Diagnosis Left shoulder pain- Primary Pain in joint, shoulder region Adhesive capsulitis of left shoulder Adhesive capsulitis of shoulder documented in this encounter Additional Health Concerns Assessment Noted Time PHQ-9 Depression Total Score: 024 3:24 PM CDT documented as of this encounter Care Teams Dictaphone Operator Relationship Specialty [place] [address] [place] [address] PCP - General Physician Chain Saw Operator Medical 09/16/23 documented as of this encounter
--- OUTSIDE RECORDS SUMMARY | 2024-02-12 08:29 | XMS_ITS | Encounter Summary ---
Author Organization [facility] Address Formerly [facility], 1928–[id number] [facility] [place] [address] [place] [address] Care Team Providers Care Osha Inspector Name Role Phone Holger Soriano Primary Care Provider [phone] Encounter Details Date Type Department Care Team [...] st Contact Info) Description 02/12/2024 9:00 AM RN ELIGIBILITY Appointment [facility] Outpatient Rehab [address] [place] [address] [place] [address] [place] [address] [place] [address] [place] [id number] 02/12/2024 2:00 PM RN ELIGIBILITY Appointment [facility] [place] [address] [place] [address] [place] [address] [place] [address] 02/16/2024 9:00 AM RN ELIGIBILITY Appointment [facility] Outpatient Rehab [address] [place] [address] [place] [address] [place] [address] [place] [address] [place] [address] 02/19/2024 8:45 AM RN ELIGIBILITY Appointment [facility] Outpatient Rehab [address] [place] [address] [place] [address] [place] [address] [place] [address] [place] [address] 02/19/2024 9:00 AM RN ELIGIBILITY Appointment [facility] Outpatient Rehab [address] [place] [address] [place] [address] [place] [address] [place] [address] [place] [address] 02/23/2024 9:00 AM RN ELIGIBILITY Appointment [facility] Outpatient Rehab [address] [place] [address] [place] [address] [place] [address] [place] [address] [place] [address] 02/24/2024 1:30 PM RN ELIGIBILITY Appointment [facility] [address] [place] [address] [place] [address] [place] [address] 02/26/2024 9:00 AM RN ELIGIBILITY Appointment [facility] Outpatient Rehab [address] [place] [address] [place] [address] [place] [address] [place] [address] [place] [address] 02/26/2024 9:15 AM RN ELIGIBILITY Appointment [facility] Outpatient Rehab [address] [place] [address] [place] [address] [place] [address] [place] [address] [place] [address] 03/01/2024 9:00 AM RN ELIGIBILITY Appointment [facility] Outpatient Rehab [address] [place] [address] [place] [address] [place] [address] [place] [address] [place] [address] Lorene Branch, BALLOON SELLER 03/02/2024 12:27 PM RN ELIGIBILITY Hospital Encounter [facility] [id number] [place] [address] [place] [address] [place] [address] 03/02/2024 12:27 PM RN ELIGIBILITY - 03/02/2024 1:07 PM RN ELIGIBILITY Surgery [address] [address] [place] [address] [place] [address] MANIPULATION SHOULDER 03/05/2024 9:00 AM RN ELIGIBILITY Appointment [facility] Outpatient Rehab [address] [place] [address] [place] [address] [place] [address] Lorene Branch, BALLOON SELLER 03/08/2024 9:00 AM RN ELIGIBILITY Appointment [facility] [address] [place] [address] [place] [address] [place] [address] oLrene Branch, BALLOON SELLER 03/11/2024 9:15 AM RN ELIGIBILITY Appointment [facility] [address] [place] [address] [place] [address] [place] [address] Lorene Branch, BALLOON SELLER 03/15/2024 9:00 AM RN ELIGIBILITY Appointment [facility] [address] [place] [address] [place] [address] [place] [address] Lorene Branch, BALLOON SELLER 03/18/2024 9:15 AM RN ELIGIBILITY Appointment [facility] [address] [place] [address] [place] [address] [place] [address] Lorene Branch, BALLOON SELLER 03/22/2024 9:00 AM RN ELIGIBILITY Appointment [facility] [address] [place] [address] [place] [address] [place] [address] Lorene Branch, BALLOON SELLER 03/25/2024 9:15 AM RN ELIGIBILITY Appointment [facility] [address] [place] [address] [place] [address] [place] [address] Lorene Branch, BALLOON SELLER 04/21/2024 11:20 AM RN ELIGIBILITY Office Visit [facility] Medical Group Family & Internal Medicine - [address] [address] [place] [address] [place] [address] Scheduled Procedures Name Priority Associated Diagnoses Date/Ti me MANIPULATION SHOULDER Adhesive capsulitis of left shoulder 03/02/2024 12:27 PM RN ELIGIBILITY INJECTION JOINT Adhesive capsulitis of left shoulder 03/02/2024 12:27 PM RN ELIGIBILITY documented as of this encounter Visit Diagnoses Not on filedocumented in this encounter Additional Health Concerns Assessment Noted Time PHQ-9 Depression Total Score: 024 3:24 PM CDT documented as of this encounter Care Teams Osha Inspector Relationship Specialty [place] [address] [place] [address] PCP - General Physician Farrowing Worker Medical 09/16/23 documented as of this encounter
--- OUTSIDE RECORDS SUMMARY | 2024-02-12 08:29 | XMS_ITS | Encounter Summary ---
Author Organization [facility] Address [facility] [place] [address] [place] [address] Care Team Providers Care Director Hris Name Role Phone Holger Soriano Primary Care Provider [phone] Encounter Details Date Type Department Care Team [...] st Contact Info) Description 02/12/2024 9:00 AM UNDERWRITING ACCOUNT REPRESENTATIVE Appointment [facility] Outpatient Rehab [address] [place] [address] [place] [address] [place] [address] [place] [address] [place] [id number] 02/12/2024 2:00 PM UNDERWRITING ACCOUNT REPRESENTATIVE Appointment [facility] MRI [address] [place] [address] [place] [address] [place] [address] 02/16/2024 9:00 AM UNDERWRITING ACCOUNT REPRESENTATIVE Appointment [facility] Outpatient Rehab [address] [place] [address] [place] [address] [place] [address] [place] [address] [place] [address] 02/19/2024 8:45 AM UNDERWRITING ACCOUNT REPRESENTATIVE Appointment [facility] Outpatient Rehab [address] [place] [address] [place] [address] [place] [address] [place] [address] [place] [address] 02/19/2024 9:00 AM UNDERWRITING ACCOUNT REPRESENTATIVE Appointment [facility] Outpatient Rehab [address] [place] [address] [place] [address] [place] [address] [place] [address] [place] [address] 02/23/2024 9:00 AM UNDERWRITING ACCOUNT REPRESENTATIVE Appointment [facility] Outpatient Rehab [address] [place] [address] [place] [address] [place] [address] [place] [address] [place] [address] 02/24/2024 1:30 PM UNDERWRITING ACCOUNT REPRESENTATIVE Appointment [facility] [address] [place] [address] [place] [address] [place] [address] 02/26/2024 9:00 AM UNDERWRITING ACCOUNT REPRESENTATIVE Appointment [facility] Outpatient Rehab [address] [place] [address] [place] [address] [place] [address] [place] [address] [place] [address] 02/26/2024 9:15 AM UNDERWRITING ACCOUNT REPRESENTATIVE Appointment [facility] Outpatient Rehab [address] [place] [address] [place] [address] [place] [address] [place] [address] [place] [address] 03/01/2024 9:00 AM UNDERWRITING ACCOUNT REPRESENTATIVE Appointment [facility] Outpatient Rehab [address] [place] [address] [place] [address] [place] [address] [place] [address] [place] [address] Lorene Branch, CLINICAL DENTAL TECHNICIAN 03/02/2024 12:27 PM UNDERWRITING ACCOUNT REPRESENTATIVE Hospital Encounter [facility] [id number] [place] [address] [place] [address] [place] [address] 03/02/2024 12:27 PM UNDERWRITING ACCOUNT REPRESENTATIVE - 03/02/2024 1:07 PM UNDERWRITING ACCOUNT REPRESENTATIVE Surgery [address] [address] [place] [address] [place] [address] MANIPULATION SHOULDER 03/05/2024 9:00 AM UNDERWRITING ACCOUNT REPRESENTATIVE Appointment [facility] Outpatient Rehab [address] [place] [address] [place] [address] [place] [address] Lorene Branch, CLINICAL DENTAL TECHNICIAN 03/08/2024 9:00 AM UNDERWRITING ACCOUNT REPRESENTATIVE Appointment [facility] [address] [place] [address] [place] [address] [place] [address] Lorene Branch, CLINICAL DENTAL TECHNICIAN 03/11/2024 9:15 AM UNDERWRITING ACCOUNT REPRESENTATIVE Appointment [facility] [address] [place] [address] [place] [address] [place] [address] Lorene Branch, CLINICAL DENTAL TECHNICIAN 03/15/2024 9:00 AM UNDERWRITING ACCOUNT REPRESENTATIVE Appointment [facility] [address] [place] [address] [place] [address] [place] [address] Lorene Branch, CLINICAL DENTAL TECHNICIAN 03/18/2024 9:15 AM UNDERWRITING ACCOUNT REPRESENTATIVE Appointment [facility] [address] [place] [address] [place] [address] [place] [address] Lorene Branch, CLINICAL DENTAL TECHNICIAN 03/22/2024 9:00 AM UNDERWRITING ACCOUNT REPRESENTATIVE Appointment [facility] [address] [place] [address] [place] [address] [place] [address] Lorene Branch, CLINICAL DENTAL TECHNICIAN 03/25/2024 9:15 AM UNDERWRITING ACCOUNT REPRESENTATIVE Appointment [facility] [address] [place] [address] [place] [address] [place] [address] Lorene Branch, CLINICAL DENTAL TECHNICIAN 04/21/2024 11:20 AM UNDERWRITING ACCOUNT REPRESENTATIVE Office Visit [facility] Medical Group Family & Internal Medicine - [address] [address] [place] [address] [place] [address] Scheduled Procedures Name Priority Associated Diagnoses Date/Ti me MANIPULATION SHOULDER Adhesive capsulitis of left shoulder 03/02/2024 12:27 PM UNDERWRITING ACCOUNT REPRESENTATIVE INJECTION JOINT Adhesive capsulitis of left shoulder 03/02/2024 12:27 PM UNDERWRITING ACCOUNT REPRESENTATIVE documented as of this encounter Visit Diagnoses Not on filedocumented in this encounter Additional Health Concerns Assessment Noted Time PHQ-9 Depression Total Score: 024 3:24 PM CDT documented as of this encounter Care Teams Director Hris Relationship Specialty [place] [address] [place] [address] PCP - General Physician Retanned Leather Roller Medical 09/16/23 documented as of this encounter
--- OUTSIDE RECORDS SUMMARY | 2024-02-12 08:29 | XMS_ITS | Encounter Summary ---
Author Organization [facility] Address On license of [facility]. [place], [place] [address] [place] [address] Care Team Providers Care Celebrity Chef Entrepreneur Media Personality Name Role Phone Holger Soriano Primary Care Provider [phone] Encounter Details Date Type Department Care Team (Late st Contact Info) Description 11/28/2023 DealerRater Message Enc [facility] Medical Group Family & Internal Medicine [facility] [address] [place] [address] [facility] Provider medication Social History Tobacco Use Types [...] (Late Contact Info) Description 02/12/2024 9:00 AM MAIL TRUCK DRIVER Appointment [facility] Outpatient Rehab [address] [place] [address] [place] [address] [place] [address] [place] [address] [place] [address] 02/12/2024 2:00 PM MAIL TRUCK DRIVER Appointment [facility] MRI [address] [place] [address] [place] [address] [place] [address] 02/16/2024 9:00 AM MAIL TRUCK DRIVER Appointment [facility] Outpatient Rehab [address] [place] [address] [place] [address] [place] [address] [place] [address] [place] [address] 02/19/2024 8:45 AM MAIL TRUCK DRIVER Appointment [facility] Outpatient Rehab [address] [place] [address] [place] [address] [place] [address] [place] [address] [place] [address] 02/19/2024 9:00 AM MAIL TRUCK DRIVER Appointment [facility] Outpatient Rehab [address] [place] [address] [place] [address] [place] [address] [place] [address] [place] [address] 02/23/2024 9:00 AM MAIL TRUCK DRIVER Appointment [facility] Outpatient Rehab [address] [place] [address] [place] [address] [place] [address] [place] [address] [place] [address] 02/24/2024 1:30 PM MAIL TRUCK DRIVER Appointment [address] [address] Ihsan Logan [address] [place] [address] 02/26/2024 9:00 AM MAIL TRUCK DRIVER Appointment [facility] Outpatient Rehab [address] [place] [address] [place] [address] [place] [address] [place] [address] [place] [address] 02/26/2024 9:15 AM MAIL TRUCK DRIVER Appointment [facility] Outpatient Rehab [address] [place] [address] [place] [address] [place] [address] [place] [address] [place] [address] 03/01/2024 9:00 AM MAIL TRUCK DRIVER Appointment [facility] Outpatient Rehab [address] [place] [address] [place] [address] [place] [address] [place] [address] [place] [address] Lorene Branch, DENTAL HYGIENIST MOBILE COORDINATOR 03/02/2024 12:27 PM MAIL TRUCK DRIVER Hospital Encounter [facility] [address] [place] [address] [place] [address] [place] [address] 03/02/2024 12:27 PM MAIL TRUCK DRIVER - 03/02/2024 1:07 PM MAIL TRUCK DRIVER Surgery [facility] Surgery [address] [place] [address] [place] [address] [place] [address] MANIPULATION SHOULDER 03/05/2024 9:00 AM MAIL TRUCK DRIVER Appointment [facility] Outpatient Rehab [address] [place] [address] [place] [address] [place] [address] Lorene Branch, DENTAL HYGIENIST MOBILE COORDINATOR 03/08/2024 9:00 AM MAIL TRUCK DRIVER Appointment [facility] Outpatient Rehab [address] [place] [address] [place] [address] [place], [place] [address] Lorene Branch, DENTAL HYGIENIST MOBILE COORDINATOR 03/11/2024 9:15 AM MAIL TRUCK DRIVER Appointment [facility] Outpatient [facility] [address] [place] [address] [place] [address] [place] [address] Lorene Branch, DENTAL HYGIENIST MOBILE COORDINATOR 03/15/2024 9:00 AM MAIL TRUCK DRIVER Appointment [facility] Out[facility] [address] [place] [address] [place] [address] [place] [address] Lorene Branch, DENTAL HYGIENIST MOBILE COORDINATOR 03/18/2024 9:15 AM MAIL TRUCK DRIVER Appointment [facility] Out[facility] [address] [place] [address] [place] [address] [place] [address] Lorene Branch, DENTAL HYGIENIST MOBILE COORDINATOR 03/22/2024 9:00 AM MAIL TRUCK DRIVER Appointment [facility] Outpatient [facility] [address] [place] [address] [place] [address] [place] [address] Lorene Branch, DENTAL HYGIENIST MOBILE COORDINATOR 03/25/2024 9:15 AM MAIL TRUCK DRIVER Appointment [facility] Outpatient [facility]hab [address] [place] [address] [place] [address] [place] [address] Lorene Branch, DENTAL HYGIENIST MOBILE COORDINATOR 04/21/2024 11:20 AM MAIL TRUCK DRIVER Office Visit [facility] Medical Group Family & Internal Medicine [facility] [address] [place] [address] [place] [address] [place] [address] Scheduled Procedures Name Priority Associated Diagnoses Date/Ti me MANIPULATION SHOULDER Adhesive capsulitis of left shoulder 03/02/2024 12:27 PM MAIL TRUCK DRIVER INJECTION JOINT Adhesive capsulitis of left shoulder 03/02/2024 12:27 PM MAIL TRUCK DRIVER documented as of this encounter Visit Diagnoses Not on filedocumented in this encounter Additional Health Concerns Infection Onset Date Last Indicated Resolved Time COVID-19 Rule Out 12/29/2023 12/29/2023 12/29/2023 12:59 PM MAIL TRUCK DRIVER Assessment Noted Time PHQ-9 Depression Total Score: 024 3:24 PM CDT documented as of this encounter Care Teams Celebrity Chef Entrepreneur Media Personality Relationship Specialty [place] [address] [place] [address] PCP - General Physician Press Assistant Medical 09/16/23 documented as of this encounter
--- OUTSIDE RECORDS SUMMARY | 2024-02-12 08:30 | XMS_ITS | Encounter Summary ---
Author Organization [facility] Address [facility] [place] [address] [place] [address] Care Team Providers Care Environmental Service Aide Name Role Phone Holger Soriano Primary Care [...] st Contact Info) Description 02/12/2024 9:00 AM BLOCK PRESS OPERATOR Appointment [facility] Outpatient Rehab [address] [place] [address] [place] [address] [place] [address] [place] [address] [place] [address] 02/12/2024 2:00 PM BLOCK PRESS OPERATOR Appointment [facility] MRI [address] [place] [address] [place] [address] [place] [address] 02/16/2024 9:00 AM BLOCK PRESS OPERATOR Appointment [facility] Outpatient Rehab [address] [place] [address] [place] [address] [place] [address] [place] [address] [place] [address] 02/19/2024 8:45 AM BLOCK PRESS OPERATOR Appointment [facility] Outpatient Rehab [address] [place] [address] [place] [address] [place] [address] [place] [address] [place] [address] 02/19/2024 9:00 AM BLOCK PRESS OPERATOR Appointment [facility] Outpatient Rehab [address] [place] [address] [place] [address] [place] [address] [place] [address] [place] [address] 02/23/2024 9:00 AM BLOCK PRESS OPERATOR Appointment [facility] Outpatient Rehab [address] [place] [address] [place] [address] [place] [address] [place] [address] [place] [address] 02/24/2024 1:30 PM BLOCK PRESS OPERATOR Appointment [facility] [address] [place] [address] [place] [address] [place] [address] 02/26/2024 9:00 AM BLOCK PRESS OPERATOR Appointment [facility] Outpatient Rehab [address] [place] [address] [place] [address] [place] [address] [place] [address] [place] [address] 02/26/2024 9:15 AM BLOCK PRESS OPERATOR Appointment [facility] Outpatient Rehab [address] [place] [address] [place] [address] [place] [address] [place] [address] [place] [address] 03/01/2024 9:00 AM BLOCK PRESS OPERATOR Appointment [facility] Outpatient Rehab [address] [place] [address] [place] [address] [place] [address] [place] [address] [place] [address] Lorene Branch, CIRCUIT DESIGN ENGINEER 03/02/2024 12:27 PM BLOCK PRESS OPERATOR Hospital Encounter [facility] [address] [place] [address] [place] [address] [place] [address] 03/02/2024 12:27 PM BLOCK PRESS OPERATOR - 03/02/2024 1:07 PM BLOCK PRESS OPERATOR Surgery [address] [address] [place] [address] [place] [address] MANIPULATION SHOULDER 03/05/2024 9:00 AM BLOCK PRESS OPERATOR Appointment [facility] Outpatient Rehab [address] [place] [address] [place] [address] [place] [address] Lorene Branch, CIRCUIT DESIGN ENGINEER 03/08/2024 9:00 AM BLOCK PRESS OPERATOR Appointment [facility] Outpatient Rehab [address] [place] [address] [place] [address] [place] [address] Lorene Branch, CIRCUIT DESIGN ENGINEER 03/11/2024 9:15 AM BLOCK PRESS OPERATOR Appointment [facility] Outpatient Rehab [address] [place] [address] [place] [address] [place] [address] Lorene Branch, CIRCUIT DESIGN ENGINEER 03/15/2024 9:00 AM BLOCK PRESS OPERATOR Appointment [facility] [address] [place] [address] [place] [address] [place] [address] Lorene Branch, CIRCUIT DESIGN ENGINEER 03/18/2024 9:15 AM BLOCK PRESS OPERATOR Appointment [facility] [address] [place] [address] [place] [address] [place] [address] Lorene Branch, CIRCUIT DESIGN ENGINEER 03/22/2024 9:00 AM BLOCK PRESS OPERATOR Appointment [facility] [address] [place] [address] [place] [address] [place] [address] Lorene Branch, CIRCUIT DESIGN ENGINEER 03/25/2024 9:15 AM BLOCK PRESS OPERATOR Appointment [facility] [address] [place] [address] [place] [address] [place] [address] Lorene Branch, CIRCUIT DESIGN ENGINEER 04/21/2024 11:20 AM BLOCK PRESS OPERATOR Office Visit [facility] Medical Group Family & Internal Medicine - [address] [address] [place] [address] [place] [address] Scheduled Procedures Name Priority Associated Diagnoses Date/Ti me MANIPULATION SHOULDER Adhesive capsulitis of left shoulder 03/02/2024 12:27 PM BLOCK PRESS OPERATOR INJECTION JOINT Adhesive capsulitis of left shoulder 03/02/2024 12:27 PM BLOCK PRESS OPERATOR documented as of this encounter Visit Diagnoses Not on filedocumented in this encounter Additional Health Concerns Assessment Noted Time PHQ-9 Depression Total Score: 024 3:24 PM CDT documented as of this encounter Care Teams Environmental Service Aide Relationship Specialty [place] [address] [place] [address] PCP - General Physician Manager Animation Medical 09/16/23 documented as of this encounter
--- OUTSIDE RECORDS SUMMARY | 2024-02-12 08:30 | XMS_ITS | Encounter Summary ---
Author Organization [facility] Address [facility] [place] [address] [place] [address] Care Team Providers Care Manager Social Media Name Role Phone Holger Soriano Primary Care Provider [phone] Encounter Details Date Type Department Care Team [...] Contact Info) Description 02/12/2024 9:00 AM SENIOR QUALITATIVE RESEARCHER Appointment [facility] Outpatient Rehab [address] [place] [address] [place] [address] [place] [address] [place] [address] [place] [address] 02/12/2024 2:00 PM SENIOR QUALITATIVE RESEARCHER Appointment [facility] MRI [address] [place] [address] [place] [address] [place] [address] 02/16/2024 9:00 AM SENIOR QUALITATIVE RESEARCHER Appointment [facility] Outpatient Rehab [address] [place] [address] [place] [address] [place] [address] [place] [address] [place] [address] 02/19/2024 8:45 AM SENIOR QUALITATIVE RESEARCHER Appointment [facility] Outpatient Rehab [address] [place] [address] [place] [address] [place] [address] [place] [address] [place] [address] 02/19/2024 9:00 AM SENIOR QUALITATIVE RESEARCHER Appointment [facility] Outpatient Rehab [address] [place] [address] [place] [address] [place] [address] [place] [address] [place] [address] 02/23/2024 9:00 AM SENIOR QUALITATIVE RESEARCHER Appointment [facility] Outpatient Rehab [address] [place] [address] [place] [address] [place] [address] [place] [address] [place] [address] 02/24/2024 1:30 PM SENIOR QUALITATIVE RESEARCHER Appointment [facility] [address] [place] [address] [place] [address] [place] [address] 02/26/2024 9:00 AM SENIOR QUALITATIVE RESEARCHER Appointment [facility] Outpatient Rehab [address] [place] [address] [place] [address] [place] [address] [place] [address] [place] [address] 02/26/2024 9:15 AM SENIOR QUALITATIVE RESEARCHER Appointment [facility] Outpatient Rehab [address] [place] [address] [place] [address] [place] [address] [place] [address] [place] [address] 03/01/2024 9:00 AM SENIOR QUALITATIVE RESEARCHER Appointment [facility] Outpatient Rehab [address] [place] [address] [place] [address] [place] [address] [place] [address] [place] [address] Lorene Branch, HUMANITIES DEPARTMENT CHAIR 03/02/2024 12:27 PM SENIOR QUALITATIVE RESEARCHER Hospital Encounter [facility] [address] [place] [address] [place] [address] [place] [address] 03/02/2024 12:27 PM SENIOR QUALITATIVE RESEARCHER - 03/02/2024 1:07 PM SENIOR QUALITATIVE RESEARCHER Surgery [address] [address] [place] [address] [place] [address] MANIPULATION SHOULDER 03/05/2024 9:00 AM SENIOR QUALITATIVE RESEARCHER Appointment [facility] Outpatient Rehab [address] [place] [address] [place] [address] [place] [address] Lorene Branch, HUMANITIES DEPARTMENT CHAIR 03/08/2024 9:00 AM SENIOR QUALITATIVE RESEARCHER Appointment [facility] Outpatient Rehab [address] [place] [address] [place] [address] [place] [address] Lorene Branch, HUMANITIES DEPARTMENT CHAIR 03/11/2024 9:15 AM SENIOR QUALITATIVE RESEARCHER Appointment [facility] Outpatient Rehab [address] [place] [address] [place] [address] [place] [address] Lorene Branch, HUMANITIES DEPARTMENT CHAIR 03/15/2024 9:00 AM SENIOR QUALITATIVE RESEARCHER Appointment [facility] [address] [place] [address] [place] [address] [place] [address] Lorene Branch, HUMANITIES DEPARTMENT CHAIR 03/18/2024 9:15 AM SENIOR QUALITATIVE RESEARCHER Appointment [facility] [address] [place] [address] [place] [address] [place] [address] Lorene Branch, HUMANITIES DEPARTMENT CHAIR 03/22/2024 9:00 AM SENIOR QUALITATIVE RESEARCHER Appointment [facility] [address] [place] [address] [place] [address] [place] [address] Lorene Branch, HUMANITIES DEPARTMENT CHAIR 03/25/2024 9:15 AM SENIOR QUALITATIVE RESEARCHER Appointment [facility] [address] [place] [address] [place] [address] [place] [address] Lorene Branch, HUMANITIES DEPARTMENT CHAIR 04/21/2024 11:20 AM SENIOR QUALITATIVE RESEARCHER Office Visit [facility] Medical Group Family & Internal Medicine - [address] [address] [place] [address] [place] [address] Scheduled Procedures Name Priority Associated Diagnoses Date/Ti me MANIPULATION SHOULDER Adhesive capsulitis of left shoulder 03/02/2024 12:27 PM SENIOR QUALITATIVE RESEARCHER INJECTION JOINT Adhesive capsulitis of left shoulder 03/02/2024 12:27 PM SENIOR QUALITATIVE RESEARCHER documented as of this encounter Visit Diagnoses Not on filedocumented in this encounter Additional Health Concerns Assessment Noted Time PHQ-9 Depression Total Score: 024 3:24 PM CDT documented as of this encounter Care Teams Manager Social Media Relationship Specialty [place] [address] [place] [address] PCP - General Physician Basket Hand Weaver Medical 09/16/23 documented as of this encounter
--- OUTSIDE RECORDS SUMMARY | 2024-02-12 08:30 | XMS_ITS | Encounter Summary ---
Author Organization [facility] Address [facility]. [place], [place] [address] [place] [address] Care Team Providers Care Boomboat Operator Name Role Phone Holger Soriano Primary Care Provider [phone] Encounter Details Date Type Department Care Team (Latest Contact Info) Description 11/07/2023 2:30 PM CDT - 11/07/2023 11:59 PM CDT Hospital Encounter [facility] Diagnostic Imaging [address] [place] [address] Syeda Sahni, [facility] [address] [facility], [address] [place] [address] Discharge Disposition: Home or Self Care (Routine [...] complication, with long-term current use of insulin ([facility]) Inject 1 mg into the skin once [...] Contact Info) Description 02/12/2024 9:00 AM MANAGER USER INTERFACE Appointment [facility] Outpatient Rehab [address] [place] [address] [place] [address] [place] [address] [place] [address] [place] [address] 02/12/2024 2:00 PM MANAGER USER INTERFACE Appointment [facility] [address] [place] [address] [place] [address] [place] [address] 02/16/2024 9:00 AM MANAGER USER INTERFACE Appointment [facility] Outpatient Rehab [address] [place] [address] [place] [address] [place] [address] [place] [address] [place] [address] 02/19/2024 8:45 AM MANAGER USER INTERFACE Appointment [facility] Outpatient Rehab [address] [place] [address] [place] [address] [place] [address] [place] [address] [place] [address] 02/19/2024 9:00 AM MANAGER USER INTERFACE Appointment [facility] Outpatient Rehab [address] [place] [address] [place] [address] [place] [address] [place] [address] [place] [address] 02/23/2024 9:00 AM MANAGER USER INTERFACE Appointment [facility] Outpatient Rehab [address] [place] [address] [place] [address] [place] [address] [place] [address] [place] [address] 02/24/2024 1:30 PM MANAGER USER INTERFACE Appointment [facility] [address] [place] [address] [place] [address] [place] [address] 02/26/2024 9:00 AM MANAGER USER INTERFACE Appointment [facility] Outpatient Rehab [address] [place] [address], [place] [address] [place] [address] [place] [address] [place] [address] [place] [address] 02/26/2024 9:15 AM MANAGER USER INTERFACE Appointment [facility] Outpatient Rehab [address] [place] [address] [place] [address] [place] [address] [place] [address] [place] [address] 03/01/2024 9:00 AM MANAGER USER INTERFACE Appointment [facility] Outpatient Rehab [address] [place] [address] [place] [address] [place] [address] [place] [address] [place] [address] Lorene Branch, OFFICE SERVICES CLERK 03/02/2024 12:27 PM MANAGER USER INTERFACE Hospital Encounter [address] [address] [place] [address] [place] [address] 03/02/2024 12:27 PM MANAGER USER INTERFACE - 03/02/2024 1:07 PM MANAGER USER INTERFACE Surgery [facility] Surgery [address] [place] [address] [place] [address] [place] [address] MANIPULATION SHOULDER 03/05/2024 9:00 AM MANAGER USER INTERFACE Appointment [facility] Outpatient Rehab [address] [place] [address] [place] [address] [place] [address] Lorene Branch, OFFICE SERVICES CLERK 03/08/2024 9:00 AM MANAGER USER INTERFACE Appointment [facility] Outpatient Rehab [address] [place] [address] [place] [address] [place] [address] Lorene Branch, OFFICE SERVICES CLERK 03/11/2024 9:15 AM MANAGER USER INTERFACE Appointment [facility] Outpatient Rehab [address] [place] [address] [place] [address] [place] [address] Lorene Branch, OFFICE SERVICES CLERK 03/15/2024 9:00 AM MANAGER USER INTERFACE Appointment [facility] Outpatient Rehab [address] [place] [address] [place] [address] [place] [address] Lorene Branch, OFFICE SERVICES CLERK 03/18/2024 9:15 AM MANAGER USER INTERFACE Appointment [facility] Outpatient Rehab [address] [place] [address] [place] [address] [place] [address] Chantal Branchreginald Kennedy, OFFICE SERVICES CLERK 03/22/2024 9:00 AM MANAGER USER INTERFACE Appointment [facility] Outpatient Rehab [address] [place] [address] [place] [address] [place], [place] [address] Chantal Branchreginald Kennedy, OFFICE SERVICES CLERK 03/25/2024 9:15 AM MANAGER USER INTERFACE Appointment [facility] Outpatient Rehab [address] [place] [address] [place] [address] [place] [address] Jose Carlos, Loerne L, OFFICE SERVICES CLERK 04/21/2024 11:20 AM MANAGER USER INTERFACE Office Visit [facility] Medical Group Family & Internal Medicine [facility] [address] [place] [address] [place] [address] [place], [place] [id number] Scheduled Procedures Name Priority Associated Diagnoses Date/Ti me MANIPULATION SHOULDER Adhesive capsulitis of left shoulder 03/02/2024 12:27 PM MANAGER USER INTERFACE INJECTION JOINT Adhesive capsulitis of left shoulder 03/02/2024 12:27 PM MANAGER USER INTERFACE documented as of this encounter Procedures Procedure [...] 6:26 PM Narrative 11/07/2023 6:28 PM CDT [facility] [address] [place] [address] IMAGING STUDIES: ? XR LUMB SPINE 3V [...] Procedure Note Basil Walker MD - 11/07/2023 [facility] [address] [place] [address] IMAGING STUDIES: XR LUMB SPINE 3V DATE: [...] 11/07/2023 6:26 PM us Syeda R Mayco SATELLITE INSTALLER-BC GENERAL IMAGING Final Re sult documented in this encounter Visit Diagnoses Diagnosis Acute bilateral low back pain with bilateral sciatica Adhesive capsulitis of left shoulder Adhesive capsulitis of shoulder documented in this encounter Additional Health Concerns Assessment Noted Time PHQ-9 Depression Total Score: 024 3:24 PM CDT documented as of this encounter Care Teams Boomboat Operator Relationship Specialty [place] [address] [place] [address] PCP - General Physician Boot And Shoe Repairman Medical 09/16/23 documented as of this encounter
--- OUTSIDE RECORDS SUMMARY | 2024-02-12 08:30 | XMS_ITS | Encounter Summary ---
Author Organization [facility] Address [facility] [place] [address] [place] [address] Care Team Providers Care Inspector Assembly Name Role Phone Holger Soriano Primary Care Provider [phone] Reason for Visit * Reason Onset Date Comments Referral 11/12/2023 Encounter Details Date Type Department Care Team (Late st Contact Info) Description 11/12/2023 Telephone [facility] Outpatient Rehab [address] [place], [place] [id number] Litzy Ferro, PT 1515 [place], [place] [phone] Referral Social History Tobacco Use Types Packs/Day [...] Contact Info) Description 02/12/2024 9:00 AM PROJECT DEVELOPMENT DIRECTOR Appointment [facility] Outpatient Rehab [address] [place] [address] [place] [address] [place] [address] [place] [address] [place] [address] 02/12/2024 2:00 PM PROJECT DEVELOPMENT DIRECTOR Appointment [facility] MRI [address] [place] [address] [place] [address] [place] [address] 02/16/2024 9:00 AM PROJECT DEVELOPMENT DIRECTOR Appointment [facility] Outpatient Rehab [address] [place] [address] [place] [address] [place] [address] [place] [address] [place] [address] 02/19/2024 8:45 AM PROJECT DEVELOPMENT DIRECTOR Appointment [facility] Outpatient Rehab [address] [place] [address] [place] [address] [place] [address] [place] [address] [place] [address] 02/19/2024 9:00 AM PROJECT DEVELOPMENT DIRECTOR Appointment [facility] Outpatient Rehab [address] [place] [address] [place] [address] [place] [address] [place] [address] [place] [address] 02/23/2024 9:00 AM PROJECT DEVELOPMENT DIRECTOR Appointment [facility] Outpatient Rehab [address] [place] [address] [place] [address] [place] [address] [place] [address] [place] [address] 02/24/2024 1:30 PM PROJECT DEVELOPMENT DIRECTOR Appointment [facility] [address] [place] [address] Desmond IhsanDO [address] [place] [address] 02/26/2024 9:00 AM PROJECT DEVELOPMENT DIRECTOR Appointment [facility] Outpatient Rehab [address]207 [place] [address] [place] [address] [place] [address] [place] [address] [place] [address] 02/26/2024 9:15 AM PROJECT DEVELOPMENT DIRECTOR Appointment [facility] Outpatient Rehab [address] [place] [address] [place] [address] [place] [address] [place] [address] [place] [address] 03/01/2024 9:00 AM PROJECT DEVELOPMENT DIRECTOR Appointment [facility] Outpatient Rehab [address] [place] [address] [place] [address] [place] [address] [place] [address] [place] [address] Lorene Branch, HOSPITALITY COORDINATOR 03/02/2024 12:27 PM PROJECT DEVELOPMENT DIRECTOR Hospital Encounter [facility] [address] [place] [address] [place] [address] [place] [address] 03/02/2024 12:27 PM PROJECT DEVELOPMENT DIRECTOR - 03/02/2024 1:07 PM PROJECT DEVELOPMENT DIRECTOR Surgery [facility] [address] [place] [address] [place] [address] [place] [address] MANIPULATION SHOULDER 03/05/2024 9:00 AM PROJECT DEVELOPMENT DIRECTOR Appointment [facility] Outpatient Rehab [address] [place] [address] [place] [address] [place] [address] Lorene Branch, HOSPITALITY COORDINATOR 03/08/2024 9:00 AM PROJECT DEVELOPMENT DIRECTOR Appointment [facility] Outpatient Rehab [address] [place] [address] [place] [address] [place] [address] Lorene Branch, HOSPITALITY COORDINATOR 03/11/2024 9:15 AM PROJECT DEVELOPMENT DIRECTOR Appointment [facility] Outpatient Rehab [address] [place] [address] [place] [address] [place] [address] Lorene Branch, HOSPITALITY COORDINATOR 03/15/2024 9:00 AM PROJECT DEVELOPMENT DIRECTOR Appointment [facility] Outpatient Rehab [address] [place] [address] [place] [address] [place] [address] Lorene Branch, HOSPITALITY COORDINATOR 03/18/2024 9:15 AM PROJECT DEVELOPMENT DIRECTOR Appointment [facility] Outpatient Rehab [address] [place] [address] [place] [address] [place] [address] Lorene Branch, HOSPITALITY COORDINATOR 03/22/2024 9:00 AM PROJECT DEVELOPMENT DIRECTOR Appointment [facility] Outpatient Rehab [address] [place] [address] [place] [address] [place] [address] Lroene Branch, HOSPITALITY COORDINATOR 03/25/2024 9:15 AM PROJECT DEVELOPMENT DIRECTOR Appointment [facility] [address] [place] [address] [place] [address] [place] [address] Lorene Branch, HOSPITALITY COORDINATOR 04/21/2024 11:20 AM PROJECT DEVELOPMENT DIRECTOR Office Visit [facility] Medical Group Family & Internal Medicine [facility] [id number] [place] [address] [place] [address] [place] [address] Scheduled Procedures Name Priority Associated Diagnoses Date/Ti me MANIPULATION SHOULDER Adhesive capsulitis of left shoulder 03/02/2024 12:27 PM PROJECT DEVELOPMENT DIRECTOR INJECTION JOINT Adhesive capsulitis of left shoulder 03/02/2024 12:27 PM PROJECT DEVELOPMENT DIRECTOR documented as of this encounter Visit Diagnoses Not on filedocumented in this encounter Additional Health Concerns Assessment Noted Time PHQ-9 Depression Total Score: 24 024 3:24 PM CDT documented as of this encounter Care Teams Inspector Assembly Relationship Specialty [place] [address] [place] [address] PCP - General Physician Stave Machine Tender Medical 09/16/23 documented as of this encounter
--- OUTSIDE RECORDS SUMMARY | 2024-02-12 08:30 | XMS_ITS | Encounter Summary ---
Author Organization [facility] Address [facility] [place] [address] [place] [address] Care Team Providers Care Keyboard Instrument Tuner Name Role Phone Holger Soriano Primary Care Provider [phone] Reason for Visit * Reason Onset Date Comments Medication 11/19/2023 Encounter Details Date Type Department Care Team (Late st Contact Info) Description 11/19/2023 Telephone [facility] Medical Group Family & Internal Medicine [facility] [address] [place] [address] [place] [address] [place] [address] Medication Social History Tobacco Use [...] st Contact Info) Description 02/12/2024 9:00 AM ROUTE CONTRACTOR Appointment [facility] Outpatient Rehab [address] [place] [address] [place] [address] [place] [address] [place] [address] [place] [address] 02/12/2024 2:00 PM ROUTE CONTRACTOR Appointment [facility] MRI [address] [place] [address] [place] [address] [facility] [place] [address] 02/16/2024 9:00 AM ROUTE CONTRACTOR Appointment [facility] Outpatient Rehab [address] [place] [address] [place] [address] [place] [address] [place] [address] [place] [address] 02/19/2024 8:45 AM ROUTE CONTRACTOR Appointment [facility]patient Rehab [address] [place] [address] [place] [address] [place] [address] [place] [address] [place] [address] 02/19/2024 9:00 AM ROUTE CONTRACTOR Appointment [facility] Rehab [address] [place] [address] [place] [address] [place] [address] [place] [address] [place] [address] 02/23/2024 9:00 AM ROUTE CONTRACTOR Appointment [facility] Rehab [address] [place] [address] [place] [address] [place] [address] [place] [address] [place] [address] 02/24/2024 1:30 PM ROUTE CONTRACTOR Appointment [facility] [address] [place] [address] Ihsan Logan, [address] [place] [address] 02/26/2024 9:00 AM ROUTE CONTRACTOR Appointment [facility]patient Rehab [address] [place] [address] [place] [address] [place] [address] [place] [address] [place] [address] 02/26/2024 9:15 AM ROUTE CONTRACTOR Appointment [facility]hab [address] [place] [address] [place] [address] [place] [address] [place] [address] [place] [address] 03/01/2024 9:00 AM ROUTE CONTRACTOR Appointment [facility]hab [address] [place] [address] [place] [address] [place] [address] [place] [address] [place] [address] Lorene Branch, PIT FURNACE OPERATOR 03/02/2024 12:27 PM ROUTE CONTRACTOR Hospital Encounter [facility] [address] [place] [address] [place] [address] [place] [address] 03/02/2024 12:27 PM ROUTE CONTRACTOR - 03/02/2024 1:07 PM ROUTE CONTRACTOR Surgery [facility] [address] [place] [address] [place] [address] [place] [address] MANIPULATION SHOULDER 03/05/2024 9:00 AM ROUTE CONTRACTOR Appointment [facility] [address] [place] [address] [place] [address] [place] [address] Lorene Branch, PIT FURNACE OPERATOR 03/08/2024 9:00 AM ROUTE CONTRACTOR Appointment [facility] [address] [place] [address] [place] [address] [place] [address] Lorene Branch, PIT FURNACE OPERATOR 03/11/2024 9:15 AM ROUTE CONTRACTOR Appointment [facility] [address] [place] [address] [place] [address] [place] [address] Lorene Branch, PIT FURNACE OPERATOR 03/15/2024 9:00 AM ROUTE CONTRACTOR Appointment [facility] [address] [place] [address] [place] [address] [place] [address] Lorene Branch, PIT FURNACE OPERATOR 03/18/2024 9:15 AM ROUTE CONTRACTOR Appointment [facility] [address] [place] [address] [place] [address] [place], [place] [address] Lorene Branch, PIT FURNACE OPERATOR 03/22/2024 9:00 AM ROUTE CONTRACTOR Appointment [facility] [address] [place] [address] [place] [address] [place] [address] Lorene Branch, PIT FURNACE OPERATOR 03/25/2024 9:15 AM ROUTE CONTRACTOR Appointment [facility] [address] [place] [address] [place] [address] [place], [place] [address] Lorene Branch, PIT FURNACE OPERATOR 04/21/2024 11:20 AM ROUTE CONTRACTOR Office Visit [facility] Medical Group Family & Internal Medicine - [address] [phone] [place] [address] [place] [address] Scheduled Procedures Name Priority Associated Diagnoses Date/Ti me MANIPULATION SHOULDER Adhesive capsulitis of left shoulder 03/02/2024 12:27 PM ROUTE CONTRACTOR INJECTION JOINT Adhesive capsulitis of left shoulder 03/02/2024 12:27 PM ROUTE CONTRACTOR documented as of this encounter Visit Diagnoses Diagnosis Type 2 diabetes mellitus without complication, with long-term current use of insulin ([facility]) Adhesive capsulitis of left shoulder Adhesive capsulitis of shoulder documented in this encounter Additional Health Concerns Assessment Noted Time PHQ-9 Depression Total Score: 24 024 3:24 PM CDT documented as of this encounter Care Teams Keyboard Instrument Tuner Relationship Specialty [place] [address] [place] [address] PCP - General Physician Split And Drum Room Supervisor Medical 09/16/23 documented as of this encounter
--- OUTSIDE RECORDS SUMMARY | 2024-02-12 08:30 | XMS_ITS | Encounter Summary ---
Author Organization [facility] Address Critical access hospital6 [facility]. [place], [place] [address] [place] [address] Care Team Providers Care Dairy Clerk Name Role Phone Holger Soriano Primary Care Provider [phone] Reason for Visit * Reason Comments Shoulder Pain * Physical Medicine (Urgent) - Authorized Specialty Diagnoses / Procedures Referred By Contac t Referred To Contact PHYSICAL THERAPY Diagnoses Left shoulder pain Low back pain Procedures OFFICE/OUTPATIENT NEW LOW MDM 30-44 MINUTES OFFICE/OUTPT VISIT,NEW,LEVL IV OFFICE/OUTPT VISIT,NEW,LEVL V OFFICE/OUTPT VISIT,EST,LEVL III OFFICE/OUTPT VISIT,EST,LEVL IV OFFICE/OUTPT VISIT,[place] [address] [place] [address] Phone: tel: fax: [facility] [address] [place] [address] Phone: tel: fax: Referral ID Status Reason Start Date Expiration Date Visits Requested Visits Authorized [id number] Authorized Physical Therapy 10/13/2023 11/11/2024 99 99 Encounter Details Date Type Department Care Team (Latest Contact Info) Description 11/17/2023 1:39 PM CDT - 11/17/2023 11:59 PM CDT Hospital Encounter [facility] [address] [place], [place] [id number] [place] [address] [place], [place] [address] [place] [address] [place], [place] [id number] Shoulder Pain Discharge Disposition: Home or Self [...] with long-term current use of insulin ([facility]/HCC [facility]/HCC) Inject 1 mg into the [...] in Nov 2022 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[employer], 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 [...] OBJECTIVE Treatment provided today: Therapeutic Exercise - 99846 Number of Minutes - 23423: 48 Sitting (Reps/Sets): 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[employer], 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, 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 Exercise: Pulleys [...] st Contact Info) Description 02/12/2024 9:00 AM PAIN MEDICINE PHYSICIAN Appointment [facility] [id number] [place] [address] [place] [address] [place] [address] [place] [address] [place] [address] 02/12/2024 2:00 PM PAIN MEDICINE PHYSICIAN Appointment [facility] [address] [place] [address] [place] [address] [place] [address] 02/16/2024 9:00 AM PAIN MEDICINE PHYSICIAN Appointment [facility] [address] [place] [address] [place] [address] [place] [address] [place] [address] [place] [address] 02/19/2024 8:45 AM PAIN MEDICINE PHYSICIAN Appointment [facility] [address] [place] [address] [place] [address] [place] [address] [place] [address] [place] [address] 02/19/2024 9:00 AM PAIN MEDICINE PHYSICIAN Appointment [facility] [address] [place] [address] [place] [address] [place] [address] [place] [address] [place] [address] 02/23/2024 9:00 AM PAIN MEDICINE PHYSICIAN Appointment [facility] [address] [place] [address] [place] [address] [place] [address] [place] [address] [place] [address] 02/24/2024 1:30 PM PAIN MEDICINE PHYSICIAN Appointment [facility] [place] [address] [place] [address] [place] [address] [place] [address] 02/26/2024 9:00 AM PAIN MEDICINE PHYSICIAN Appointment [facility] [address] [place] [address] [place] [address] [place] [address] [place] [address] [place] [address] 02/26/2024 9:15 AM PAIN MEDICINE PHYSICIAN Appointment [facility] [address] [place] [address] [place] [address] [place] [address] [place] [address] [place] [address] 03/01/2024 9:00 AM PAIN MEDICINE PHYSICIAN Appointment [facility] [address] [place] [address] [place] [address] [place] [address] [place] [address] [place] [address] Lorene Branch, RESERVOIR ENGINEERING ADVISOR 03/02/2024 12:27 PM PAIN MEDICINE PHYSICIAN Hospital Encounter [facility] [address] [place] [address] [place] [address] [place] [address] 03/02/2024 12:27 PM PAIN MEDICINE PHYSICIAN - 03/02/2024 1:07 PM PAIN MEDICINE PHYSICIAN Surgery [facility] [address] [place] [address] [place] [address] [place] [address] MANIPULATION SHOULDER 03/05/2024 9:00 AM PAIN MEDICINE PHYSICIAN Appointment [facility] [address] [place] [address] [place] [address] [place] [address] Lorene Branch, RESERVOIR ENGINEERING ADVISOR 03/08/2024 9:00 AM PAIN MEDICINE PHYSICIAN Appointment [facility] [address] [place] [address] [place] [address] [place] [address] Lorene Branch, RESERVOIR ENGINEERING ADVISOR 03/11/2024 9:15 AM PAIN MEDICINE PHYSICIAN Appointment [facility] [address] [place] [address] [place] [address] [place] [address] Lorene Branch, RESERVOIR ENGINEERING ADVISOR 03/15/2024 9:00 AM PAIN MEDICINE PHYSICIAN Appointment [facility] [address] [place] [address] [place] [address] [place] [address] Lorene Branch, RESERVOIR ENGINEERING ADVISOR 03/18/2024 9:15 AM PAIN MEDICINE PHYSICIAN Appointment [facility] [address] [place] [address] [place] [address] [place] [address] Lorene Branch, RESERVOIR ENGINEERING ADVISOR 03/22/2024 9:00 AM PAIN MEDICINE PHYSICIAN Appointment [facility] [address] [place] [address] [place] [address] [place], [place] [id number] Lorene Branch, RESERVOIR ENGINEERING ADVISOR 03/25/2024 9:15 AM PAIN MEDICINE PHYSICIAN Appointment [facility] [address] [place] [address] [place] [address] [place], [place] [id number] Lorene Branch, RESERVOIR ENGINEERING ADVISOR 04/21/2024 11:20 AM PAIN MEDICINE PHYSICIAN Office Visit [facility] Family & Internal Medicine [facility] [address] [place] [phone] [place] [address] [place] [address] Scheduled Procedures Name Priority Associated Diagnoses Date/Ti me MANIPULATION SHOULDER Adhesive capsulitis of left shoulder 03/02/2024 12:27 PM PAIN MEDICINE PHYSICIAN INJECTION JOINT Adhesive capsulitis of left shoulder 03/02/2024 12:27 PM PAIN MEDICINE PHYSICIAN documented as of this encounter Visit Diagnoses Diagnosis Left shoulder pain- Primary Pain in joint, shoulder region Adhesive capsulitis of left shoulder Adhesive capsulitis of shoulder documented in this encounter Additional Health Concerns Assessment Noted Time PHQ-9 Depression Total Score: 24 024 3:24 PM CDT documented as of this encounter Care Teams Dairy Clerk Relationship Specialty [place] [address] [place] [address] PCP - General Physician Degreaser Operator Medical 09/16/23 documented as of this encounter
--- OUTSIDE RECORDS SUMMARY | 2024-02-12 08:30 | XMS_ITS | Encounter Summary ---
Author Organization [facility] Address [facility] [place] [address] [place] [address] Care Team Providers Care Is Project Manager Name Role Phone Holger Soriano Primary Care Provider [phone] Encounter Details Date Type Department Care Team [...] st Contact Info) Description 02/12/2024 9:00 AM IMPLEMENTATION MANAGER Appointment [facility] [address] [place] [address] [place] [address] [place] [address] [place] [address] [place] [id number] 02/12/2024 2:00 PM IMPLEMENTATION MANAGER Appointment [facility] [place] [address] [place] [address] [place] [address] [place] [address] 02/16/2024 9:00 AM IMPLEMENTATION MANAGER Appointment [facility] [address] [place] [address] [place] [address] [place] [address] [place] [address] [place] [address] 02/19/2024 8:45 AM IMPLEMENTATION MANAGER Appointment [facility] [address] [place] [address] [place] [address] [place] [address] [place] [address] [place] [address] 02/19/2024 9:00 AM IMPLEMENTATION MANAGER Appointment [facility] [address] [place] [address] [place] [address] [place] [address] [place] [address] [place] [address] 02/23/2024 9:00 AM IMPLEMENTATION MANAGER Appointment [facility] [address] [place] [address] [place] [address] [place] [address] [place] [address] [place] [address] 02/24/2024 1:30 PM IMPLEMENTATION MANAGER Appointment [facility] [address] [place] [address] [place] [address] [place] [address] 02/26/2024 9:00 AM IMPLEMENTATION MANAGER Appointment [facility] [address] [place] [address] [place] [address] [place] [address] [place] [address] [place] [address] 02/26/2024 9:15 AM IMPLEMENTATION MANAGER Appointment [facility] [address] [place] [address] [place] [address] [place] [address] [place] [address] [place] [address] 03/01/2024 9:00 AM IMPLEMENTATION MANAGER Appointment [facility] [address] [place] [address] [place] [address] [place] [address] [place] [address] [place] [address] Lorene Branch, DEMONSTRATOR SEWING TECHNIQUES 03/02/2024 12:27 PM IMPLEMENTATION MANAGER Hospital Encounter [facility] [id number] [place] [address] [place] [address] [place] [address] 03/02/2024 12:27 PM IMPLEMENTATION MANAGER - 03/02/2024 1:07 PM IMPLEMENTATION MANAGER Surgery [address] [address] [place] [address] [place] [address] MANIPULATION SHOULDER 03/05/2024 9:00 AM IMPLEMENTATION MANAGER Appointment [facility] [address] [place] [address] [place] [address] [place] [address] Lorene Branch, DEMONSTRATOR SEWING TECHNIQUES 03/08/2024 9:00 AM IMPLEMENTATION MANAGER Appointment [facility] [address] [place] [address] [place] [address] [place] [address] Lorene Branch, DEMONSTRATOR SEWING TECHNIQUES 03/11/2024 9:15 AM IMPLEMENTATION MANAGER Appointment [facility] [address] [place] [address] [place] [address] [place] [address] Lorene Branch, DEMONSTRATOR SEWING TECHNIQUES 03/15/2024 9:00 AM IMPLEMENTATION MANAGER Appointment [facility] [address] [place] [address] [place] [address] [place] [address] Lorene Branch, DEMONSTRATOR SEWING TECHNIQUES 03/18/2024 9:15 AM IMPLEMENTATION MANAGER Appointment [facility] [address] [place] [address] [place] [address] [place] [address] Lorene Branch, DEMONSTRATOR SEWING TECHNIQUES 03/22/2024 9:00 AM IMPLEMENTATION MANAGER Appointment [facility] [address] [place] [address] [place] [address] [place] [address] Lorene Branch, DEMONSTRATOR SEWING TECHNIQUES 03/25/2024 9:15 AM IMPLEMENTATION MANAGER Appointment [facility] [address] [place] [address] [place] [address] [place] [address] Lorene Branch, DEMONSTRATOR SEWING TECHNIQUES 04/21/2024 11:20 AM IMPLEMENTATION MANAGER Office Visit [facility] Medical Group Family & Internal Medicine - [address] [phone] [place] [address] [place] [address] Scheduled Procedures Name Priority Associated Diagnoses Date/Ti me MANIPULATION SHOULDER Adhesive capsulitis of left shoulder 03/02/2024 12:27 PM IMPLEMENTATION MANAGER INJECTION JOINT Adhesive capsulitis of left shoulder 03/02/2024 12:27 PM IMPLEMENTATION MANAGER documented as of this encounter Visit Diagnoses Not on filedocumented in this encounter Additional Health Concerns Assessment Noted Time PHQ-9 Depression Total Score: 024 3:24 PM CDT documented as of this encounter Care Teams Is Project Manager Relationship Specialty [place] [address] [place] [address] PCP - General Physician Commercial Management Accountant Medical 09/16/23 documented as of this encounter
--- OUTSIDE RECORDS SUMMARY | 2024-02-12 08:30 | XMS_ITS | Encounter Summary ---
Author Organization [facility] Address [facility]6 [facility]. [place], [place] [address] [place] [address] Care Team Providers Care Roll Up Machine Operator Name Role Phone Holger Soriano Primary Care Provider [phone] Reason for Visit * Reason Comments Shoulder Pain Left SH pain * Physical Medicine (Urgent) - Authorized Specialty Diagnoses / Procedures Referred By Contteri t Referred To Contact PHYSICAL THERAPY Diagnoses Left shoulder pain Low back pain Procedures OFFICE/OUTPATIENT NEW LOW MDM 30-44 MINUTES OFFICE/OUTPT VISIT,NEW,LEVL IV OFFICE/OUTPT VISIT,NEW,LEVL V OFFICE/OUTPT VISIT,EST,LEVL III OFFICE/OUTPT VISIT,EST,LEVL IV OFFICE/OUTPT VISIT,EST,[place] [address] [place] [address] Phone: tel: fax: [facility] Outpatient Rehab [address] [place] [address] Phone: tel: fax: Referral ID Status Reason Start Date Expiration Date Visits Requested Visits Authorized [id number] Authorized Physical Therapy 10/13/2023 11/11/2024 99 99 Encounter Details Date Type Department Care Team (Latest Contact Info) Description 11/12/2023 3:30 PM CDT - 11/12/2023 11:59 PM CDT Hospital Encounter [facility] Outpatient Rehab [address] [place], [place] [id number] [place] [address] [place] [address] Era Field PTA Shoulder Pain (Left SH [...] complication, with long-term current use of insulin ([facility]/HCC [facility]) Inject 1 mg into the [...] this encounter Progress Notes * Era Field, BACK UP MACHINE OPERATOR - 11/12/2023 3:30 PM CDT Physical [...] in 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 PT feeder driver called to get referral for LBP, as [...] st Contact Info) Description 02/12/2024 9:00 AM INTELLIGENCE CONSULTANT Appointment [facility] [address] [place] [address] [place] [address] [place] [address] [place] [address] [place] [address] 02/12/2024 2:00 PM INTELLIGENCE CONSULTANT Appointment [facility] [address] [place] [address] [place] [address] [place] [address] 02/16/2024 9:00 AM INTELLIGENCE CONSULTANT Appointment [facility] [address] [place] [address] [place] [address] [place] [address] [place] [address] [place] [address] 02/19/2024 8:45 AM INTELLIGENCE CONSULTANT Appointment [facility] Outpatient Rehab [address] [place] [address] [place] [address] [place] [address] [place] [address] [place] [address] 02/19/2024 9:00 AM INTELLIGENCE CONSULTANT Appointment [facility] Outpatient Rehab [address] [place] [address] [place] [address] [place] [address] [place] [address] [place] [address] 02/23/2024 9:00 AM INTELLIGENCE CONSULTANT Appointment [facility] Outpatient Rehab [address] [place] [address] [place] [address] [place] [address] [place] [address] [place] [address] 02/24/2024 1:30 PM INTELLIGENCE CONSULTANT Appointment [facility] MRI [address] [place] [address] Ihsan Logan, [address] [place] [address] 02/26/2024 9:00 AM INTELLIGENCE CONSULTANT Appointment [facility] Outpatient Rehab [address] [place] [address] [place] [address] [place] [address] [place] [address] [place] [address] 02/26/2024 9:15 AM INTELLIGENCE CONSULTANT Appointment [facility] Outpatient Rehab [address] [place] [address] [place] [address] [place] [address] [place] [address] [place] [address] 03/01/2024 9:00 AM INTELLIGENCE CONSULTANT Appointment [facility] Outpatient Rehab [address] [place] [address] [place] [address] [place] [address] [place] [address] [place] [address] Lorene Branch PTA 03/02/2024 12:27 PM INTELLIGENCE CONSULTANT Hospital Encounter [facility] Surgery [address] [place] [address] Ihsan Logan, [address] [place] [address] 03/02/2024 12:27 PM INTELLIGENCE CONSULTANT - 03/02/2024 1:07 PM INTELLIGENCE CONSULTANT Surgery [facility] [address] [place] [address] [place] [address] [place] [address] MANIPULATION SHOULDER 03/05/2024 9:00 AM INTELLIGENCE CONSULTANT Appointment [facility] Outpatient Rehab [address] [place] [address] [place] [address] [place] [address] Lorene Branch, BACK UP MACHINE OPERATOR 03/08/2024 9:00 AM INTELLIGENCE CONSULTANT Appointment [facility] Outpatient Rehab [address] [place] [address] [place] [address] [place] [address] Lorene Branch, BACK UP MACHINE OPERATOR 03/11/2024 9:15 AM INTELLIGENCE CONSULTANT Appointment [facility] Outpatient Rehab [address] [place] [address] [place] [address] [place] [address] Lorene Branch, BACK UP MACHINE OPERATOR 03/15/2024 9:00 AM INTELLIGENCE CONSULTANT Appointment [facility] Outpatient Rehab [address] [place] [address] [place] [address] [place] [address] Lorene Branch, BACK UP MACHINE OPERATOR 03/18/2024 9:15 AM INTELLIGENCE CONSULTANT Appointment [facility] Outpatient Rehab [address] [place] [address] [place] [address] [place] [address] Lorene Branch, BACK UP MACHINE OPERATOR 03/22/2024 9:00 AM INTELLIGENCE CONSULTANT Appointment [facility] Outpatient Rehab [address] [place] [address] [place] [address] [place] [address] Lorene Branch, BACK UP MACHINE OPERATOR 03/25/2024 9:15 AM INTELLIGENCE CONSULTANT Appointment [facility] Outpatient Rehab [address] [place] [address] [place] [address] [place], [place] [id number] Lorene Branch, BACK UP MACHINE OPERATOR 04/21/2024 11:20 AM INTELLIGENCE CONSULTANT Office Visit [facility] Family & Internal Medicine - [place] [address] [place] [phone] [place] [address] [place] [address] Scheduled Procedures Name Priority Associated Diagnoses Date/Ti me MANIPULATION SHOULDER Adhesive capsulitis of left shoulder 03/02/2024 12:27 PM INTELLIGENCE CONSULTANT INJECTION JOINT Adhesive capsulitis of left shoulder 03/02/2024 12:27 PM INTELLIGENCE CONSULTANT documented as of this encounter Visit Diagnoses Diagnosis Left shoulder pain- Primary Pain in joint, shoulder region Adhesive capsulitis of left shoulder Adhesive capsulitis of shoulder documented in this encounter Additional Health Concerns Assessment Noted Time PHQ-9 Depression Total Score: 24 024 3:24 PM CDT documented as of this encounter Care Teams Roll Up Machine Operator Relationship Specialty Start Date End Date Holger Soriano PA [address] [place] [address] PCP - General Physician Chief Strategy Officer Medical 09/16/23 documented as of this encounter
--- OUTSIDE RECORDS SUMMARY | 2024-02-12 08:31 | XMS_ITS | Encounter Summary ---
Author Organization [facility] Address [facility]ly [facility]6 [facility]. [place], [place] [address] [place] [address] Care Team Providers Care Cold Strip Roller Name Role Phone Holger Soriano Primary Care Provider [phone] Reason for Visit * Reason Comments Back Pain Lower left side back pain. Encounter Details Date Type Department Care Team (Late st Contact Info) Description 11/07/2023 2:15 PM CDT Office Visit [facility] Family & Internal Medicine [address] [address] Syeda Sahni, [address] [place] [address] Back Pain (Lower left side [...] this encounter Progress Notes * Syeda Sahni, PHYSICIAN PRACTICE CONSULTANT-BC - 11/07/2023 2:15 PM CDT Images [...] Diagnosis Date ADHD Asthma ([facility]) COPD (chronic obstructive pulmonary disease) ([facility]) History reviewed. No pertinent surgical history. Social [...] st Contact Info) Description 02/12/2024 9:00 AM DATA PROCESSING CONSULTANT Appointment [facility] [address] [place] [address] [place] [address] [place] [address] [place] [address] [place] [address] 02/12/2024 2:00 PM DATA PROCESSING CONSULTANT Appointment [facility] [place] [address] [place] [address] [place] [address] [place] [address] 02/16/2024 9:00 AM DATA PROCESSING CONSULTANT Appointment [facility] [address] [place] [address] [place] [address] [place] [address] [place] [address] [place] [address] 02/19/2024 8:45 AM DATA PROCESSING CONSULTANT Appointment [facility] [address] [place] [address] [place] [address] [place] [address] [place] [address] [place] [address] 02/19/2024 9:00 AM DATA PROCESSING CONSULTANT Appointment [facility] [address] [place] [address] [place] [address] [place] [address] [place] [address] [place] [address] 02/23/2024 9:00 AM DATA PROCESSING CONSULTANT Appointment [facility] [address] [place] [address] [place] [address] [place] [address] [place] [address] [place] [address] 02/24/2024 1:30 PM DATA PROCESSING CONSULTANT Appointment [facility] [place] [address] [place] [address] Ihsan Logan, [address] [place] [address] 02/26/2024 9:00 AM DATA PROCESSING CONSULTANT Appointment [facility] [address] [place] [address] [place] [address] [place] [address] [place] [address] [place] [address] 02/26/2024 9:15 AM DATA PROCESSING CONSULTANT Appointment [facility] [address] [place] [address] [place] [address] [place] [address] [place] [address] [place] [address] 03/01/2024 9:00 AM DATA PROCESSING CONSULTANT Appointment [facility] [address] [place] [address] [place] [address] [place] [address] [place] [address] [place] [address] Lorene Branch, NURSING EDUCATION SPECIALIST 03/02/2024 12:27 PM DATA PROCESSING CONSULTANT Hospital Encounter [facility] [address] [place] [address] [place] [address] [place] [address] 03/02/2024 12:27 PM DATA PROCESSING CONSULTANT - 03/02/2024 1:07 PM DATA PROCESSING CONSULTANT Surgery [facility] Surgery [address] [place] [address] [place] [address] [place] [address] MANIPULATION SHOULDER 03/05/2024 9:00 AM DATA PROCESSING CONSULTANT Appointment [facility] [address] [place] [address] [place] [address] [place] [address] Lorene Branch, NURSING EDUCATION SPECIALIST 03/08/2024 9:00 AM DATA PROCESSING CONSULTANT Appointment [facility] [address] [place] [address] [place] [address] [place] [address] Lorene Branch, NURSING EDUCATION SPECIALIST 03/11/2024 9:15 AM DATA PROCESSING CONSULTANT Appointment [facility] [address] [place] [address] [place] [address] [place] [address] Lorene Branch, NURSING EDUCATION SPECIALIST 03/15/2024 9:00 AM DATA PROCESSING CONSULTANT Appointment [facility] [address] [place] [address] [place] [address] [place] [address] Lorene Branch, NURSING EDUCATION SPECIALIST 03/18/2024 9:15 AM DATA PROCESSING CONSULTANT Appointment [facility] [address] [place] [address] [place] [address] [place] [address] Lorene Branch, NURSING EDUCATION SPECIALIST 03/22/2024 9:00 AM DATA PROCESSING CONSULTANT Appointment [facility] [address] [place] [address] [place] [address] [place] [address] Lorene Branch, NURSING EDUCATION SPECIALIST 03/25/2024 9:15 AM DATA PROCESSING CONSULTANT Appointment [facility] [address] [place] [address] [place] [address] [place] [address] Lorene Branch, NURSING EDUCATION SPECIALIST 04/21/2024 11:20 AM DATA PROCESSING CONSULTANT Office Visit [facility] Family & Internal Medicine - [address] [phone] [place] [address] [place] [address] Scheduled Procedures Name Priority Associated Diagnoses Date/Ti me MANIPULATION SHOULDER Adhesive capsulitis of left shoulder 03/02/2024 12:27 PM DATA PROCESSING CONSULTANT INJECTION JOINT Adhesive capsulitis of left shoulder 03/02/2024 12:27 PM DATA PROCESSING CONSULTANT documented as of this encounter Results * XR LUMB SPINE 3V (11/07/2023 2:42 PM CDT) Anatomical Region Laterality Modality Spine Radiographic Evelyn ging 11/07/2023 6:26 PM CDT Impressions 11/07/2023 6:28 PM CDT IMPRESSION: 1. ??No acute findings. Postoperative findings as detailed above. Ordered By: SYEDA SAHNI Interpreted By: Justice Walker, 11/07/2023 6:26 PM Narrative 11/07/2023 6:[address]T [address] [place] [address] IMAGING STUDIES: ? XR LUMB SPINE 3V [...] Procedure Note Basil Walker MD - 11/07/[address] [place] [id number] IMAGING STUDIES: XR LUMB SPINE 3V DATE: [...] Walker, 11/07/2023 6:26 PM us Syeda Sahni PHYSICIAN PRACTICE CONSULTANT- GENERAL IMAGING Final Re sult documented [...] documented as of this encounter Care Teams Cold Strip Roller Relationship Specialty [place] [address] [place] [address] PCP - General Physician Electric Deicer Assembler Medical 09/16/23 documented as of this encounter
--- OUTSIDE RECORDS SUMMARY | 2024-02-12 08:31 | XMS_ITS | Encounter Summary ---
Author Organization [facility] Address [facility]6 [facility] [place] [address] [place] [address] Care Team Providers Care Child Development Associate Teacher Name Role Phone Holger Soriano Primary Care Provider [phone] Encounter Details Date Type Department Care Team [...] Contact Info) Description 02/12/2024 9:00 AM OIL SPECULATOR Appointment [facility] [address] [place] [address] [place] [address] [place] [address] [place] [address] [place] [id number] 02/12/2024 2:00 PM OIL SPECULATOR Appointment [facility] [place] [address] [place] [address] [place] [address] [place] [address] 02/16/2024 9:00 AM OIL SPECULATOR Appointment [facility] [address] [place] [address] [place] [address] [place] [address] [place] [address] [place] [address] 02/19/2024 8:45 AM OIL SPECULATOR Appointment [facility] [address] [place] [address] [place] [address] [place] [address] [place] [address] [place] [address] 02/19/2024 9:00 AM OIL SPECULATOR Appointment [facility] [address] [place] [address] [place] [address] [place] [address] [place] [address] [place] [address] 02/23/2024 9:00 AM OIL SPECULATOR Appointment [facility] [address] [place] [address] [place] [address] [place] [address] [place] [address] [place] [address] 02/24/2024 1:30 PM OIL SPECULATOR Appointment [facility] [address] [place] [address] [place] [address] [place] [address] 02/26/2024 9:00 AM OIL SPECULATOR Appointment [facility] [address] [place] [address] [place] [address] [place] [address] [place] [address] [place] [address] 02/26/2024 9:15 AM OIL SPECULATOR Appointment [facility] [address] [place] [address] [place] [address] [place] [address] [place] [address] [place] [address] 03/01/2024 9:00 AM OIL SPECULATOR Appointment [facility] [address] [place] [address] [place] [address] [place] [address] [place] [address] [place] [address] Lorene Branch, MISSION COORDINATOR 03/02/2024 12:27 PM OIL SPECULATOR Hospital Encounter [facility] [id number] [place] [address] [place] [address] [place] [address] 03/02/2024 12:27 PM OIL SPECULATOR - 03/02/2024 1:07 PM OIL SPECULATOR Surgery [address] [address] [place] [address] [place] [address] MANIPULATION SHOULDER 03/05/2024 9:00 AM OIL SPECULATOR Appointment [facility] [address] [place] [address] [place] [address] [place] [address] Lorene Branch, MISSION COORDINATOR 03/08/2024 9:00 AM OIL SPECULATOR Appointment [facility] [address] [place] [address] [place] [address] [place] [address] Lorene Branch, MISSION COORDINATOR 03/11/2024 9:15 AM OIL SPECULATOR Appointment [facility] [address] [place] [address] [place] [address] [place] [address] Lorene Branch, MISSION COORDINATOR 03/15/2024 9:00 AM OIL SPECULATOR Appointment [facility] [address] [place] [address] [place] [address] [place] [address] Lorene Branch, MISSION COORDINATOR 03/18/2024 9:15 AM OIL SPECULATOR Appointment [facility] [address] [place] [address] [place] [address] [place] [address] Lorene Branch, MISSION COORDINATOR 03/22/2024 9:00 AM OIL SPECULATOR Appointment [facility] [address] [place] [address] [place] [address] [place] [address] Lorene Branch, MISSION COORDINATOR 03/25/2024 9:15 AM OIL SPECULATOR Appointment [facility] [address] [place] [address] [place] [address] [place] [address] Lorene Branch, MISSION COORDINATOR 04/21/2024 11:20 AM OIL SPECULATOR Office Visit [facility] Family & Internal Medicine - [address] [address] [place] [address] [place] [address] Scheduled Procedures Name Priority Associated Diagnoses Date/Ti me MANIPULATION SHOULDER Adhesive capsulitis of left shoulder 03/02/2024 12:27 PM OIL SPECULATOR INJECTION JOINT Adhesive capsulitis of left shoulder 03/02/2024 12:27 PM OIL SPECULATOR documented as of this encounter Visit Diagnoses Not on filedocumented in this encounter Additional Health Concerns Assessment Noted Time PHQ-9 Depression Total Score: 024 3:24 PM CDT documented as of this encounter Care Teams Child Development Associate Teacher Relationship Specialty [place] [address] [place] [address] PCP - General Physician Precision Filer Hand Medical 09/16/23 documented as of this encounter
--- OUTSIDE RECORDS SUMMARY | 2024-02-12 08:31 | XMS_ITS | Encounter Summary ---
Author Organization [facility] Address [facility]6 [facility] [place] [address] [place] [address] Care Team Providers Care I&C Tech Name Role Phone Holger Soriano Primary Care Provider [phone] Encounter Details Date Type Department Care Team [...] st Contact Info) Description 02/12/2024 9:00 AM FLATWORK IRONER Appointment [facility] [address] [place] [address] [place] [address] [place] [address] [place] [address] [place] [phone] 02/12/2024 2:00 PM FLATWORK IRONER Appointment [facility] [address] [place] [address] [place] [address] [place] [address] 02/16/2024 9:00 AM FLATWORK IRONER Appointment [facility] [address] [place] [address] [place] [address] [place] [address] [place] [address] [place] [address] 02/19/2024 8:45 AM FLATWORK IRONER Appointment [facility] [address] [place] [address] [place] [address] [place] [address] [place] [address] [place] [address] 02/19/2024 9:00 AM FLATWORK IRONER Appointment [facility] [address] [place] [address] [place] [address] [place] [address] [place] [address] [place] [address] 02/23/2024 9:00 AM FLATWORK IRONER Appointment [facility] [address] [place] [address] [place] [address] [place] [address] [place] [address] [place] [address] 02/24/2024 1:30 PM FLATWORK IRONER Appointment [facility] [address] [place] [address] [place] [address] [place] [address] 02/26/2024 9:00 AM FLATWORK IRONER Appointment [facility] [address] [place] [address] [place] [address] [place] [address] [place] [address] [place] [address] 02/26/2024 9:15 AM FLATWORK IRONER Appointment [facility] [address] [place] [address] [place] [address] [place] [address] [place] [address] [place] [address] 03/01/2024 9:00 AM FLATWORK IRONER Appointment [facility] [address] [place] [address] [place] [address] [place] [address] [place] [address] [place] [address] Lorene Branch, USED CAR RENOVATOR 03/02/2024 12:27 PM FLATWORK IRONER Hospital Encounter [facility] [id number] [place] [address] [place] [address] [place] [address] 03/02/2024 12:27 PM FLATWORK IRONER - 03/02/2024 1:07 PM FLATWORK IRONER Surgery [address] [address] [place] [address] [place] [address] MANIPULATION SHOULDER 03/05/2024 9:00 AM FLATWORK IRONER Appointment [facility] [address] [place] [address] [place] [address] [place] [address] Lorene Branch, USED CAR RENOVATOR 03/08/2024 9:00 AM FLATWORK IRONER Appointment [facility] [address] [place] [address] [place] [address] [place] [address] Lorene Branch, USED CAR RENOVATOR 03/11/2024 9:15 AM FLATWORK IRONER Appointment [facility] [address] [place] [address] [place] [address] [place] [address] Lorene Branch, USED CAR RENOVATOR 03/15/2024 9:00 AM FLATWORK IRONER Appointment [facility] [address] [place] [address] [place] [address] [place] [address] Lorene Branch, USED CAR RENOVATOR 03/18/2024 9:15 AM FLATWORK IRONER Appointment [facility] [address] [place] [address] [place] [address] [place] [address] Lorene Brnach, USED CAR RENOVATOR 03/22/2024 9:00 AM FLATWORK IRONER Appointment [facility] [address] [place] [address] [place] [address] [place] [address] Lorene Branch, USED CAR RENOVATOR 03/25/2024 9:15 AM FLATWORK IRONER Appointment [facility] [address] [place] [address] [place] [address] [place] [address] Lorene Branch, USED CAR RENOVATOR 04/21/2024 11:20 AM FLATWORK IRONER Office Visit [facility] Medical Group Family & Internal Medicine - [address] [address] [place] [address] [place] [address] Scheduled Procedures Name Priority Associated Diagnoses Date/Ti me MANIPULATION SHOULDER Adhesive capsulitis of left shoulder 03/02/2024 12:27 PM FLATWORK IRONER INJECTION JOINT Adhesive capsulitis of left shoulder 03/02/2024 12:27 PM FLATWORK IRONER documented as of this encounter Visit Diagnoses Not on filedocumented in this encounter Additional Health Concerns Assessment Noted Time PHQ-9 Depression Total Score: 024 3:24 PM CDT documented as of this encounter Care Teams I&C Tech Relationship Specialty [place] [address] [place] [address] PCP - General Physician Waste Examiner Medical 09/16/23 documented as of this encounter
--- OUTSIDE RECORDS SUMMARY | 2024-02-12 08:31 | XMS_ITS | Encounter Summary ---
Author Organization [facility] Address [facility]. [place], [place] [address] [place] [address] Care Team Providers Care Travel Accommodations Rater Name Role Phone Holger Soriano Primary Care Provider [phone] Reason for Visit * Reason Comments Shoulder Pain * Physical Medicine (Urgent) - Authorized Specialty Diagnoses / Procedures Referred By Contac t Referred To Contact PHYSICAL THERAPY Diagnoses Left shoulder pain Low back pain Procedures OFFICE/OUTPATIENT NEW LOW MDM 30-44 MINUTES OFFICE/OUTPT VISIT,NEW,LEVL IV OFFICE/OUTPT VISIT,NEW,LEVL V OFFICE/OUTPT VISIT,EST,LEVL III OFFICE/OUTPT VISIT,EST,LEVL IV OFFICE/OUTPT VISIT,EST[place] [address] [place] [address] Phone: tel: fax: [facility] [address] [place] [address] Phone: tel: fax: Referral ID Status Reason Start Date Expiration Date Visits Requested Visits Authorized [id number] Authorized Physical Therapy 10/13/2023 11/11/2024 99 99 Encounter Details Date Type Department Care Team (Latest Contact Info) Description 10/30/2023 7:22 AM CDT - 10/30/2023 11:59 PM CDT Hospital Encounter [facility] [address] [place], [place] [phone] [place] [address] [place], [place] [phone] [place] [address] [place], [place] [id number] Shoulder Pain Discharge Disposition: Home or Self [...] complication, with long-term current use of insulin ([facility]) Inject 1 mg into [...] in Nov 2022 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[employer], [employer], 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 [...] OBJECTIVE Treatment provided today: Therapeutic Exercise - 12323 Number of Minutes - 16564: 46 Exercise: pulleys scaption, butterfly x 2 [...] 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, 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, 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 Exercise: Modalities [...] Encounters Date Type Department Care Team (Late [facility]) Description 02/12/2024 9:00 AM HR CLERK Appointment [facility] [address] [place] [address] [place] [address] [place] [address] [place] [address] [place], [place] [id number] 02/12/2024 2:00 PM HR CLERK Appointment [facility] [address] [place] [address] [place] [address] [place] [address] 02/16/2024 9:00 AM HR CLERK Appointment [facility] [address] [place] [address] [place] [address] [place] [address] [place] [address] [place] [address] 02/19/2024 8:45 AM HR CLERK Appointment [facility] [address] [place] [address] [place] [address] [place] [address] [place] [address] [place] [address] 02/19/2024 9:00 AM HR CLERK Appointment [facility] [address] [place] [address] [place] [address] [place] [address] [place] [address] [place] [address] 02/23/2024 9:00 AM HR CLERK Appointment [facility] [address] [place] [address] [place] [address] [place] [address] [place] [address] [place] [address] 02/24/2024 1:30 PM HR CLERK Appointment [facility] MRI [address] [address] Ihsan Logan, [address] [place] [address] 02/26/2024 9:00 AM HR CLERK Appointment [facility] [address] [address] [place] [address] [place] [address] [place] [address] [place] [address] 02/26/2024 9:15 AM HR CLERK Appointment [facility] [address] [address] [place] [address] [place] [address] [place] [address] [place] [address] 03/01/2024 9:00 AM HR CLERK Appointment [facility] [address] [address] [place] [address] [place] [address] [place] [address] [place] [address] Lorene Branch, PROCESS INSPECTOR 03/02/2024 12:27 PM HR CLERK Hospital Encounter [address] [address] [place] [address] [place] [address] 03/02/2024 12:27 PM HR CLERK - 03/02/2024 1:07 PM HR CLERK Surgery [facility] [address] [address] [place] [address] [place] [address] MANIPULATION SHOULDER 03/05/2024 9:00 AM HR CLERK Appointment [facility] [address] [address] [place] [address] [place] [address] Lorene Branch, PROCESS INSPECTOR 03/08/2024 9:00 AM HR CLERK Appointment [facility] [address] [address] [place] [address] [place] [address] Lorene Branch, PROCESS INSPECTOR 03/11/2024 9:15 AM HR CLERK Appointment [facility] [address] [address] [place] [address] [place] [address] Lorene Branch, PROCESS INSPECTOR 03/15/2024 9:00 AM HR CLERK Appointment [facility] [address] [address] [place] [address] [place] [address] Lorene Branch, PROCESS INSPECTOR 03/18/2024 9:15 AM HR CLERK Appointment [facility] [address] [address] [place] [address] [place] [address] Lorene Branch, PROCESS INSPECTOR 03/22/2024 9:00 AM HR CLERK Appointment [facility] [address] [place] [address] [place] [address] [place] [address] Lorene Branch, CAROLA 03/25/2024 9:15 AM HR CLERK Appointment [facility] [address] [place] [address] [place] [address] [place] [address] Lorene Branch, PROCESS INSPECTOR 04/21/2024 11:20 AM HR CLERK Office Visit [facility] Medical Group Family & Internal Medicine [facility] [address] [place] [address] [place] [address] [place] [address] Scheduled Procedures Name Priority Associated Diagnoses Date/Ti me MANIPULATION SHOULDER Adhesive capsulitis of left shoulder 03/02/2024 12:27 PM HR CLERK INJECTION JOINT Adhesive capsulitis of left shoulder 03/02/2024 12:27 PM HR CLERK documented as of this encounter Visit Diagnoses Diagnosis Left shoulder pain- Primary Pain in joint, shoulder region Adhesive capsulitis of left shoulder Adhesive capsulitis of shoulder documented in this encounter Additional Health Concerns Assessment Noted Time PHQ-9 Depression Total Score: 24 024 3:24 PM CDT documented as of this encounter Care Teams Travel Accommodations Rater Relationship Specialty [place] [address] [place] [address] PCP - General Physician Senior Account Clerk Medical 09/16/23 documented as of this encounter
--- OUTSIDE RECORDS SUMMARY | 2024-02-12 08:31 | XMS_ITS | Encounter Summary ---
Author Organization [facility] Address [facility]. [place], [place] [address] [place] [address] Care Team Providers Care Concrete Paver Name Role Phone Holger Soriano Primary Care Provider [phone] Reason for Visit * Reason Comments Shoulder Pain * Physical Medicine (Urgent) - Authorized Specialty Diagnoses / Procedures Referred By Contac t Referred To Contact PHYSICAL THERAPY Diagnoses Left shoulder pain Low back pain Procedures OFFICE/OUTPATIENT NEW LOW MDM 30-44 MINUTES OFFICE/OUTPT VISIT,NEW,LEVL IV OFFICE/OUTPT VISIT,NEW,LEVL V OFFICE/OUTPT VISIT,EST,LEVL III OFFICE/OUTPT VISIT,EST,LEVL IV OFFICE/OUTPT VISIT,[place] [address] [place] [address] Phone: tel: fax: [facility] system Outpatient Rehab [address] [place] [address] Phone: tel: fax: Referral ID Status Reason Start Date Expiration Date Visits Requested Visits Authorized [id number] Authorized Physical Therapy 10/13/2023 11/11/2024 99 99 Encounter Details Date Type Department Care Team (Latest Contact Info) Description 11/04/2023 8:50 AM CDT - 11/04/2023 11:59 PM CDT Hospital Encounter Health system Outpatient Rehab [address] [place] [address] [place] [address] [place] [address] Willis Isabela HenryCAROLA Shoulder Pain Discharge Disposition: [...] use of insulin (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 Exercise: Modalities [...] st Contact Info) Description 02/12/2024 9:00 AM NET WEB DEVELOPER Appointment Health system Outpatient Rehab [address] [place] [address] [place] [address] [place] [address] [place] [address] [place] [address] 02/12/2024 2:00 PM NET WEB DEVELOPER Appointment Health system MRI [address] [place] [address] [place] [address] [place] [address] 02/16/2024 9:00 AM NET WEB DEVELOPER Appointment [facility] system Outpatient Rehab [address] [place] [address] [place] [address] [place] [address] [place] [address] [place] [address] 02/19/2024 8:45 AM NET WEB DEVELOPER Appointment [facility] system Outpatient Rehab [address] [place] [address] [place] [address] [place] [address] [place] [address] [place] [address] 02/19/2024 9:00 AM NET WEB DEVELOPER Appointment [facility] system Outpatient Rehab [address] [place] [address] [place] [address] [place] [address] [place] [address] [place] [address] 02/23/2024 9:00 AM NET WEB DEVELOPER Appointment [facility] system Outpatient Rehab [address] [place] [address] [place] [address] [place] [address] [place] [address] [place] [address] 02/24/2024 1:30 PM NET WEB DEVELOPER Appointment [facility] [address] [place] [address] [place] [address] [place] [address] 02/26/2024 9:00 AM NET WEB DEVELOPER Appointment [facility] system Outpatient Rehab [address] [place] [address] [place] [address] [place] [address] [place] [address] [place] [address] 02/26/2024 9:15 AM NET WEB DEVELOPER Appointment [facility] system Outpatient Rehab [address] [place] [address] [place] [address] [place] [address] [place] [address] [place] [address] 03/01/2024 9:00 AM NET WEB DEVELOPER Appointment [facility] system Outpatient Rehab [address] [place] [address] [place] [address] [place] [address] [place] [address] [place] [address] Lorene Branch PTA 03/02/2024 12:27 PM NET WEB DEVELOPER Hospital Encounter Health system Surgery [address] [place] [address] Ihsan Logan, [address] [place] [address] 03/02/2024 12:27 PM NET WEB DEVELOPER - 03/02/2024 1:07 PM NET WEB DEVELOPER Surgery [facility] [address] [place] [address] Ihsan LoganDO [address] [place] [address] MANIPULATION SHOULDER 03/05/2024 9:00 AM NET WEB DEVELOPER Appointment [facility] system Outpatient Rehab [address] [place] [address] [place] [address] [place] [address] Lorene Branch, ELECTRIC TAPE SLITTER 03/08/2024 9:00 AM NET WEB DEVELOPER Appointment [facility] system Outpatient Rehab [address] [place] [address] [place] [address] [place] [address] Lorene Branch, ELECTRIC TAPE SLITTER 03/11/2024 9:15 AM NET WEB DEVELOPER Appointment [facility] system Outpatient Rehab [address] [place] [address] [place] [address] [place] [address] Lorene Branch, ELECTRIC TAPE SLITTER 03/15/2024 9:00 AM NET WEB DEVELOPER Appointment [facility] system Outpatient Rehab [address] [place] [address] [place] [address] [place] [address] Lorene Branch, ELECTRIC TAPE SLITTER 03/18/2024 9:15 AM NET WEB DEVELOPER Appointment [facility] system Outpatient Rehab [address] [place] [address] [place] [address] [place] [address] Lorene Branch, ELECTRIC TAPE SLITTER 03/22/2024 9:00 AM NET WEB DEVELOPER Appointment [facility] system Outpatient Rehab [address] [place] [address] [place] [address] [place] [address] Lorene Branch, ELECTRIC TAPE SLITTER 03/25/2024 9:15 AM NET WEB DEVELOPER Appointment [facility] system Outpatient Rehab [address] [place] [address] [place] [address] [place] [address] Lorene Branch, ELECTRIC TAPE SLITTER 04/21/2024 11:20 AM NET WEB DEVELOPER Office Visit [facility] Medical Group Family & Internal Medicine [address] [id number] [place] [address] [place], [place] [id number] Scheduled Procedures Name Priority Associated Diagnoses Date/Ti me MANIPULATION SHOULDER Adhesive capsulitis of left shoulder 03/02/2024 12:27 PM NET WEB DEVELOPER INJECTION JOINT Adhesive capsulitis of left shoulder 03/02/2024 12:27 PM NET WEB DEVELOPER documented as of this encounter Visit Diagnoses Diagnosis Left shoulder pain- Primary Pain in joint, shoulder region Adhesive capsulitis of left shoulder Adhesive capsulitis of shoulder documented in this encounter Additional Health Concerns Assessment Noted Time PHQ-9 Depression Total Score: 24 024 3:24 PM CDT documented as of this encounter Care Teams Concrete Paver Relationship Specialty [place] [address] [place] [address] PCP - General Physician Police Reserves Commander Medical 09/16/23 documented as of this encounter
--- OUTSIDE RECORDS SUMMARY | 2024-02-12 08:32 | XMS_ITS | Encounter Summary ---
Author Organization [facility] Address [facility] [place] [address] [place] [address] Care Team Providers Care Semiconductors Wafer Breaker Name Role Phone Holger Soriano Primary Care Provider [phone] Encounter Details Date Type Department Care Team [...] st Contact Info) Description 02/12/2024 9:00 AM TON CYLINDER INSPECTOR Appointment [facility] [address] [place] [address] [place] [address] [place] [address] [place] [address] [place], [place] [id number] 02/12/2024 2:00 PM TON CYLINDER INSPECTOR Appointment [facility] MRI [address] [place] [address] [place] [address] [place] [address] 02/16/2024 9:00 AM TON CYLINDER INSPECTOR Appointment [facility] [address] [place] [address] [place] [address] [place] [address] [place] [address] [place] [address] 02/19/2024 8:45 AM TON CYLINDER INSPECTOR Appointment [facility] [address] [place] [address] [place] [address] [place] [address] [place] [address] [place] [address] 02/19/2024 9:00 AM TON CYLINDER INSPECTOR Appointment [facility] [address] [place] [address] [place] [address] [place] [address] [place] [address] [place] [address] 02/23/2024 9:00 AM TON CYLINDER INSPECTOR Appointment [facility] [address] [place] [address] [place] [address] [place] [address] [place] [address] [place] [address] 02/24/2024 1:30 PM TON CYLINDER INSPECTOR Appointment [facility] [address] [place] [address] [place] [address] [place] [address] 02/26/2024 9:00 AM TON CYLINDER INSPECTOR Appointment [facility] [address] [place] [address] [place] [address] [place] [address] [place] [address] [place] [address] 02/26/2024 9:15 AM TON CYLINDER INSPECTOR Appointment [facility] [address] [place] [address] [place] [address] [place] [address] [place] [address] [place] [address] 03/01/2024 9:00 AM TON CYLINDER INSPECTOR Appointment [facility] [address] [place] [address] [place] [address] [place] [address] [place] [address] [place] [address] Lorene Branch, PHP WEB DEVELOPER 03/02/2024 12:27 PM TON CYLINDER INSPECTOR Hospital Encounter [facility] [id number] [place] [address] [place] [address] [place] [address] 03/02/2024 12:27 PM TON CYLINDER INSPECTOR - 03/02/2024 1:07 PM TON CYLINDER INSPECTOR Surgery [address] [address] [place] [address] [place] [address] MANIPULATION SHOULDER 03/05/2024 9:00 AM TON CYLINDER INSPECTOR Appointment [facility] [address] [place] [address] [place] [address] [place] [address] Lorene Branch, PHP WEB DEVELOPER 03/08/2024 9:00 AM TON CYLINDER INSPECTOR Appointment [facility] [address] [place] [address] [place] [address] [place] [address] Lorene Branch, PHP WEB DEVELOPER 03/11/2024 9:15 AM TON CYLINDER INSPECTOR Appointment [facility] [address] [place] [address] [place] [address] [place] [address] Lorene Branch, PHP WEB DEVELOPER 03/15/2024 9:00 AM TON CYLINDER INSPECTOR Appointment [facility] [address] [place] [address] [place] [address] [place] [address] Lorene Branch, PHP WEB DEVELOPER 03/18/2024 9:15 AM TON CYLINDER INSPECTOR Appointment [facility] [address] [place] [address] [place] [address] [place] [address] Lorene Branch, PHP WEB DEVELOPER 03/22/2024 9:00 AM TON CYLINDER INSPECTOR Appointment [facility] [address] [place] [address] [place] [address] [place] [address] Lorene Branch, PHP WEB DEVELOPER 03/25/2024 9:15 AM TON CYLINDER INSPECTOR Appointment [facility] [address] [place] [address] [place] [address] [place] [address] Lorene Branch, PHP WEB DEVELOPER 04/21/2024 11:20 AM TON CYLINDER INSPECTOR Office Visit [facility] Medical Group Family & Internal Medicine - [address] [phone] [place] [address] [place] [address] Scheduled Procedures Name Priority Associated Diagnoses Date/Ti me MANIPULATION SHOULDER Adhesive capsulitis of left shoulder 03/02/2024 12:27 PM TON CYLINDER INSPECTOR INJECTION JOINT Adhesive capsulitis of left shoulder 03/02/2024 12:27 PM TON CYLINDER INSPECTOR documented as of this encounter Visit Diagnoses Not on filedocumented in this encounter Additional Health Concerns Assessment Noted Time PHQ-9 Depression Total Score: 024 3:24 PM CDT documented as of this encounter Care Teams Semiconductors Wafer Breaker Relationship Specialty [place] [address] [place] [address] PCP - General Physician Boot Trimmer Medical 09/16/23 documented as of this encounter
--- OUTSIDE RECORDS SUMMARY | 2024-02-12 08:33 | XMS_ITS | Encounter Summary ---
Author Organization [facility] Address [facility] [place] [address] [place] [address] Care Team Providers Care Residential Recycle Driver Name Role Phone Holger Soriano Primary Care Provider [phone] Reason for Visit * Reason Comments Cough Sx started Friday e vening Sore Throat Fever Body Aches Congestion Encounter Details Date Type Department Care Team (Late st Contact Info) Description 10/17/2023 10:40 AM CDT Office Visit [facility] Medical Group Family & Internal Medicine [facility] [address] [place] [phone] [place] [address] [place] [address] Cough (Sx started Friday evening ); [...] Past Medical History: Diagnosis Date ADHD Asthma ([facility]) COPD (chronic obstructive pulmonary disease) ([facility]) History reviewed. [...] st Contact Info) Description 02/12/2024 9:00 AM COUNSELING DIRECTOR Appointment [facility] [address] [place] [address] [place] [address] [place] [address] [place] [address] [place] [address] 02/12/2024 2:00 PM COUNSELING DIRECTOR Appointment [facility] MRI [address] [place] [address] [place] [address] [place] [address] 02/16/2024 9:00 AM COUNSELING DIRECTOR Appointment [facility] [address] [place] [address] [place] [address] [place] [address] [place] [address] [place] [address] 02/19/2024 8:45 AM COUNSELING DIRECTOR Appointment [facility] [address] [place] [address] [place] [address] [place] [address] [place] [address] [place] [address] 02/19/2024 9:00 AM COUNSELING DIRECTOR Appointment [facility] [address] [place] [address] [place] [address] [place] [address] [place] [address] [place] [address] 02/23/2024 9:00 AM COUNSELING DIRECTOR Appointment [facility] [address] [place] [address] [place] [address] [place] [address] [place] [address] [place] [address] 02/24/2024 1:30 PM COUNSELING DIRECTOR Appointment [facility] [address] [place] [address] Ihsan Logan, [address] [place] [address] 02/26/2024 9:00 AM COUNSELING DIRECTOR Appointment [facility] [address] [place] [address] [place] [address] [place] [address] [place] [address] [place] [address] 02/26/2024 9:15 AM COUNSELING DIRECTOR Appointment [facility] [address] [place] [address] [place] [address] [place] [address] [place] [address] [place] [address] 03/01/2024 9:00 AM COUNSELING DIRECTOR Appointment [facility] [address] [place] [address] [place] [address] [place] [address] [place] [address] [place] [address] Lorene Branch, BALANCE TRUING INSPECTOR 03/02/2024 12:27 PM COUNSELING DIRECTOR Hospital Encounter [facility] Surgery [address] [place] [address] [place] [address] [place] [address] 03/02/2024 12:27 PM COUNSELING DIRECTOR - 03/02/2024 1:07 PM COUNSELING DIRECTOR Surgery [facility] Surgery [address] [place] [address] [place] [address] [place] [address] MANIPULATION SHOULDER 03/05/2024 9:00 AM COUNSELING DIRECTOR Appointment [facility] [address] [place] [address] [place] [address] [place] [address] Lorene Branch, BALANCE TRUING INSPECTOR 03/08/2024 9:00 AM COUNSELING DIRECTOR Appointment [facility] [address] [place] [address] [place] [address] [place] [address] Lorene Branch, BALANCE TRUING INSPECTOR 03/11/2024 9:15 AM COUNSELING DIRECTOR Appointment [facility] [address] [place] [address] [place] [address] [place] [address] Lorene Branch, BALANCE TRUING INSPECTOR 03/15/2024 9:00 AM COUNSELING DIRECTOR Appointment [facility] [address] [place] [address] [place] [address] [place] [address] Lorene Branch, BALANCE TRUING INSPECTOR 03/18/2024 9:15 AM COUNSELING DIRECTOR Appointment [facility] [address] [place] [address] [place] [address] [place] [address] Lorene Branch, BALANCE TRUING INSPECTOR 03/22/2024 9:00 AM COUNSELING DIRECTOR Appointment [facility] [address] [place] [address] [place] [address] [place] [address] Lorene Branch, BALANCE TRUING INSPECTOR 03/25/2024 9:15 AM COUNSELING DIRECTOR Appointment [facility] [address] [place] [address] [place] [address] [place] [address] Lorene Branch, BALANCE TRUING INSPECTOR 04/21/2024 11:20 AM COUNSELING DIRECTOR Office Visit [facility] Medical Group Family & Internal Medicine [facility] [address] [place] [phone] [place] [address] [place] [address] Scheduled Procedures Name Priority Associated Diagnoses Date/Ti me MANIPULATION SHOULDER Adhesive capsulitis of left shoulder 03/02/2024 12:27 PM COUNSELING DIRECTOR INJECTION JOINT Adhesive capsulitis of left shoulder 03/02/2024 12:27 PM COUNSELING DIRECTOR documented as of this encounter Procedures Procedure Name Priority Date/Time Associated Diagnosis Comments CORONAVIRUS (COVID-19) INFLUENZA A & B ANTIGEN IA PANEL Routine 10/17/2023 Suspected COVID-19 virus infection RAPID STREP A Routine 10/17/2023 Sore throat documented in this encounter Results * CULTURE STREP A (10/17/2023 10:59 AM CDT) SPEC DESCRIPTION THROAT 10/17/2023 12:[address] [facility] SPECIAL REQUESTS NO SPECIAL REQUEST 10/17/2023 12:[address] [facility] CULTURE RESULT NO STREPTOCOCCUS PYOGENES (GROUP A) ISOLATED 10/20/2023 7:13 AM CDT [facility] THROAT SWAB / Unknown 10/17/2023 10:59 AM CDT 10/17/2023 12:31 PM CDT Holger SCOTT MICROBIOLOGY - GENERAL ORDERAB LES Final Result [facility] [address] [place] [address], [place] [phone] [facility] [address] [place] [address], [place] [phone] * RAPID STREP A (10/17/2023) RAPID STREP TEST NEGATIVE NEGATIVE [id number] ALEXEI COWAN Internal Control: VALID VALID [id number] ARVIND HILLMAN [place] STRUCTURE OF ANTERIOR PORTION OF NECK / Unknown 10/17/2023 Holger SCOTT MICROBIOLOGY - GENERAL ORDERAB LES Final Result [id number] ARVIND HILLMAN, [place] [address] [place] [address], * CORONAVIRUS (COVID-19) INFLUENZA A & B ANTIGEN IA PANEL (10/17/2023) CORONAVIRUS ANTIGEN IA NEGATIVE NEGATIVE -[id number] [place] INFLUENZA A NEGATIVE NEGATIVE -[address], [place] INFLUENZA B NEGATIVE NEGATIVE [id number] [place] Internal Control: VALID VALID -[id number] [place] NASAL STRUCTURE / Unknown 10/17/2023 us Holger SCOTT MICROBIOLOGY - GENERAL ORDERAB LES Final Result Performing Organization Address [facility] Co de Phone Number -[phone] ARVIND HILLMAN, [place] [address] [place] [address], documented in this encounter Visit Diagnoses Diagnosis [...] documented as of this encounter Care Teams Residential Recycle Driver Relationship Specialty [place] [address] [place] [address] PCP - General Physician Gasoline Engine Assembler Medical 09/16/23 documented as of this encounter
--- OUTSIDE RECORDS SUMMARY | 2024-02-12 08:33 | XMS_ITS | Encounter Summary ---
Author Organization [facility] Address formerly [facility] [address] [place] [address] Care Team Providers Care Computer Application Developer Name Role Phone Holger Soriano Primary Care Provider [phone] Reason for Visit * Reason Onset Date Comments Question 10/20/2023 Encounter Details Date Type Department Care Team (Late st Contact Info) Description 10/20/2023 Telephone [facility] Medical Group Family & Internal Medicine [facility] [address] [place] [address] [place] [address] [place] [address] Question Social History Tobacco Use [...] low grade fever and weakness. CB # [phone] documented in this encounter Plan of Treatment Upcoming Encounters Date Type Department Care Team (Late st Contact Info) Description 02/12/2024 9:00 AM RETAIL ASSET PROTECTION SPECIALIST [facility]ointment [facility] [address] [place] [address] [place] [address] [place] [address] [place] [address] [place] [address] 02/12/2024 2:00 PM RETAIL ASSET PROTECTION SPECIALIST Appointment [facility] [address] [place] [address] [place] [address] [place] [address] 02/16/2024 9:00 AM RETAIL ASSET PROTECTION SPECIALIST [facility]ointment [facility] [address] [place] [address] [place] [address] [place] [address] [place] [address] [place] [address] 02/19/2024 8:45 AM RETAIL ASSET PROTECTION SPECIALIST [facility]ment [facility] [address] [place] [address] [place], [place] [address] [place] [address] [place] [address] [place] [address] 02/19/2024 9:00 AM RETAIL ASSET PROTECTION SPECIALIST Appointment [facility] [address] [place] [address] [place] [address] [place] [address] [place] [address] [place] [address] 02/23/2024 9:00 AM RETAIL ASSET PROTECTION SPECIALIST Appointment [facility] [address] [place] [address] [place] [address] [place] [address] [place] [address] [place] [address] 02/24/2024 1:30 PM RETAIL ASSET PROTECTION SPECIALIST Appointment [facility] [address] [place] [address] [place] [address] [place] [address] 02/26/2024 9:00 AM RETAIL ASSET PROTECTION SPECIALIST Appointment [facility] [address] [place] [address] [place] [address] [place] [address] [place] [address] [place] [address] 02/26/2024 9:15 AM RETAIL ASSET PROTECTION SPECIALIST Appointment [facility] [address] [place] [address] [place] [address] [place] [address] [place] [address] [place] [address] 03/01/2024 9:00 AM RETAIL ASSET PROTECTION SPECIALIST Appointment [facility] [address] [place] [address] [place] [address] [place] [address] [place] [address] [place] [address] Lorene Branch, JOB COMPOSITOR 03/02/2024 12:27 PM RETAIL ASSET PROTECTION SPECIALIST Hospital Encounter [facility] [address] [place] [address] [place] [address] [place] [address] 03/02/2024 12:27 PM RETAIL ASSET PROTECTION SPECIALIST - 03/02/2024 1:07 PM RETAIL ASSET PROTECTION SPECIALIST Surgery [facility] [address] [place] [address] [place]hs[place] [address] [place] [address] [facility] 03/05/2024 9:00 AM RETAIL ASSET PROTECTION SPECIALIST Appointment [facility] [address] [place] [address] [place] [address] [place] [address] Lorene Branch, JOB COMPOSITOR 03/08/2024 9:00 AM RETAIL ASSET PROTECTION SPECIALIST Appointment [facility] [address] [place] [address] [place] [address] [place] [address] Lorene Branch, JOB COMPOSITOR 03/11/2024 9:15 AM RETAIL ASSET PROTECTION SPECIALIST Appointment [facility] [address] [place] [address] [place] [address] [place] [address] Lorene Branch, JOB COMPOSITOR 03/15/2024 9:00 AM RETAIL ASSET PROTECTION SPECIALIST Appointment [facility] [address] [place] [address] [place] [address] [place] [address] Lorene Branch, JOB COMPOSITOR 03/18/2024 9:15 AM RETAIL ASSET PROTECTION SPECIALIST Appointment [facility] [address] [place] [address] [place] [address] [place] [address] Lorene Branch, JOB COMPOSITOR 03/22/2024 9:00 AM RETAIL ASSET PROTECTION SPECIALIST Appointment [facility] [address] [place] [address] [place] [address] [place] [address] Lorene Branch, JOB COMPOSITOR 03/25/2024 9:15 AM RETAIL ASSET PROTECTION SPECIALIST Appointment [facility] [address] [place] [address] [place] [address] [place] [address] Lorene Branch, JOB COMPOSITOR 04/21/2024 11:20 AM RETAIL ASSET PROTECTION SPECIALIST Office Visit [facility] Medical Group Family & Internal Medicine [facility] [address] [place] [address] [place] [address] [place] [address] Scheduled Procedures Name Priority Associated Diagnoses Date/Ti me MANIPULATION SHOULDER Adhesive capsulitis of left shoulder 03/02/2024 12:27 PM RETAIL ASSET PROTECTION SPECIALIST INJECTION JOINT Adhesive capsulitis of left shoulder 03/02/2024 12:27 PM RETAIL ASSET PROTECTION SPECIALIST documented as of this encounter Visit Diagnoses Not on filedocumented in this encounter Additional Health Concerns Assessment Noted Time PHQ-9 Depression Total Score: 024 3:24 PM CDT documented as of this encounter Care Teams Computer Application Developer Relationship Specialty [place] [address] [place] [address] PCP - General Physician Display Artist Medical 09/16/23 documented as of this encounter
--- OUTSIDE RECORDS SUMMARY | 2024-02-12 08:33 | XMS_ITS | Encounter Summary ---
Author Organization [facility] Address [facility] [place] [address] [place] [address] Care Team Providers Care Sweeper Operator Highways Name Role Phone Holger Soriano Primary Care Provider [phone] Encounter Details Date Type Department Care Team [...] st Contact Info) Description 02/12/2024 9:00 AM ZONING ENGINEER Appointment [facility] [address] [place] [address] [place] [address] [place] [address] [place] [address] [place] [address] 02/12/2024 2:00 PM ZONING ENGINEER Appointment [facility] [address] [place] [address] [place] [address] [place] [address] 02/16/2024 9:00 AM ZONING ENGINEER Appointment [facility] [address] [place] [address] [place] [address] [place] [address] [place] [address] [place] [address] 02/19/2024 8:45 AM ZONING ENGINEER Appointment [facility] [address] [place] [address] [place] [address] [place] [address] [place] [address] [place] [address] 02/19/2024 9:00 AM ZONING ENGINEER Appointment [facility] [address] [place] [address] [place] [address] [place] [address] [place] [address] [place] [address] 02/23/2024 9:00 AM ZONING ENGINEER Appointment [facility] [address] [place] [address] [place] [address] [place] [address] [place] [address] [place] [address] 02/24/2024 1:30 PM ZONING ENGINEER Appointment [facility] [address] [place] [address] [place] [address] [place] [address] 02/26/2024 9:00 AM ZONING ENGINEER Appointment [facility] [address] [place] [address] [place] [address] [place] [address] [place] [address] [place] [address] 02/26/2024 9:15 AM ZONING ENGINEER Appointment [facility] [address] [place] [address] [place] [address] [place] [address] [place] [address] [place] [address] 03/01/2024 9:00 AM ZONING ENGINEER Appointment [facility] [address] [place] [address] [place] [address] [place] [address] [place] [address] [place] [address] Lorene Branch, PHOTO OFFSET PRINTER 03/02/2024 12:27 PM ZONING ENGINEER Hospital Encounter [facility] [id number] [place] [address] [place] [address] [place] [address] 03/02/2024 12:27 PM ZONING ENGINEER - 03/02/2024 1:07 PM ZONING ENGINEER Surgery [address] [address] [place] [address] [place] [address] MANIPULATION SHOULDER 03/05/2024 9:00 AM ZONING ENGINEER Appointment [facility] [address] [place] [address] [place] [address] [place] [address] Lorene Branch, PHOTO OFFSET PRINTER 03/08/2024 9:00 AM ZONING ENGINEER Appointment [facility] [address] [place] [address] [place] [address] [place] [address] Lorene Branch, PHOTO OFFSET PRINTER 03/11/2024 9:15 AM ZONING ENGINEER Appointment [facility] [address] [place] [address] [place] [address] [place] [address] Lorene Branch, PHOTO OFFSET PRINTER 03/15/2024 9:00 AM ZONING ENGINEER Appointment [facility] [address] [place] [address] [place] [address] [place] [address] Lorene Branch, PHOTO OFFSET PRINTER 03/18/2024 9:15 AM ZONING ENGINEER Appointment [facility] [address] [place] [address] [place] [address] [place] [address] Lorene Branch, PHOTO OFFSET PRINTER 03/22/2024 9:00 AM ZONING ENGINEER Appointment [facility] [address] [place] [address] [place] [address] [place] [address] Lorene Branch, PHOTO OFFSET PRINTER 03/25/2024 9:15 AM ZONING ENGINEER Appointment [facility] [address] [place] [address] [place] [address] [place] [address] Lorene Branch, PHOTO OFFSET PRINTER 04/21/2024 11:20 AM ZONING ENGINEER Office Visit [facility] Medical Group Family & Internal Medicine - [address] [address] [place] [address] [place] [address] Scheduled Procedures Name Priority Associated Diagnoses Date/Ti me MANIPULATION SHOULDER Adhesive capsulitis of left shoulder 03/02/2024 12:27 PM ZONING ENGINEER INJECTION JOINT Adhesive capsulitis of left shoulder 03/02/2024 12:27 PM ZONING ENGINEER documented as of this encounter Visit Diagnoses Not on filedocumented in this encounter Additional Health Concerns Infection Onset Date Last Indicated Resolved Time COVID-19 Rule Out 10/17/2023 10/17/2023 10/17/2023 10:57 AM CDT Assessment Noted Time PHQ-9 Depression Total Score: 024 3:24 PM CDT documented as of this encounter Care Teams Sweeper Operator Highways Relationship Specialty [place] [address] [place] [address] PCP - General Physician Transportation Planner Medical 09/16/23 documented as of this encounter
--- OUTSIDE RECORDS SUMMARY | 2024-02-12 08:33 | XMS_ITS | Encounter Summary ---
Author Organization [facility] Address [facility]. [place], [place] [address] [place] [address] Care Team Providers Care Kier Tender Name Role Phone Holger Soriano Primary Care Provider [phone] Reason for Referral * Physical Medicine (Urgent) - Authorized Specialty Diagnoses / Procedures Referred By Contac t Referred To Contact PHYSICAL THERAPY Diagnoses Left shoulder pain Low back pain Procedures OFFICE/OUTPATIENT NEW LOW MDM 30-44 MINUTES OFFICE/OUTPT VISIT,NEW,LEVL IV OFFICE/OUTPT VISIT,NEW,LEVL V OFFICE/OUTPT VISIT,EST,LEVL III OFFICE/OUTPT VISIT,EST,LEVL IV OFFICE/OUTPT VISIT,EST[place] [address] [place] [address] Phone: tel: fax: [facility] [address] [place] [address] Phone: tel: fax: Referral ID Status Reason Start Date Expiration Date Visits Requested Visits Authorized [id number] Authorized Physical Therapy 10/13/2023 11/11/2024 99 99 Reason for Visit * Reason Onset Date Comments Orders 10/08/2023 Encounter Details Date Type Department Care Team (Late st Contact Info) Description 10/08/2023 Telephone [facility] Medical Group Family & Internal Medicine [facility] [address] [place] [address] [place] [address] [place] [address] Orders Social History Tobacco Use Types Packs/Day [...] referral was placed. Please send referral to [facility]. Thanks * Chanelle Buckner MA - 10/09/2023 8:29 AM CDT Okay to place PT referral? * Jen De Guzman - 10/08/2023 4:14 PM CDT Pt called as she is under the care of a chiropractor for L frozen shoulder and was recommended to be referred for PT. Pt is asked for PT for her L shoulder to be done here at [facility]. Thanks documented in this encounter Plan of Treatment Upcoming Encounters Date Type Department Care Team (Late st Contact Info) Description 02/12/2024 9:00 AM [employer] Appointment [facility] [address] [place], [place] [address] [place] [address] [place], [place] [address] [place] [address] [place] [address] 02/12/2024 2:00 PM [employer] Appointment [facility] MRI [address] [place] [address] [place] [address] [place] [address] 02/16/2024 9:00 AM [employer] Appointment [facility] [address] [place] [address] [place] [address] [place] [address] [place] [address] [place] [address] 02/19/2024 8:45 AM [employer] Appointment [facility] [address] [place] [address] [place] [address] [place] [address] [place] [address] [place] [address] 02/19/2024 9:00 AM [employer] Appointment [facility] [address] [place] [address] [place] [address] [place] [address] [place] [address] [place] [address] 02/23/2024 9:00 AM [employer] Appointment [facility] [address] [place] [address] [place] [address] [place] [address] [place] [address] [place] [address] 02/24/2024 1:30 PM [employer] Appointment [address] [address] [place] [address] [place] [address] 02/26/2024 9:00 AM [employer] Appointment [facility] [address] [place] [address] [place] [address] [place] [address] [place] [address] [place] [address] 02/26/2024 9:15 AM [employer] Appointment [facility] [address] [place] [address] [place] [address] [place] [address] [place] [address] [place] [address] 03/01/2024 9:00 AM [employer] Appointment [facility] [address] [place] [address] [place] [address] [place] [address] [place] [address] [place] [address] Lorene Branch, APPLICATION CHEMIST 03/02/2024 12:27 PM [employer] Hospital Encounter [facility] Surgery [address] [place] [address] [place] [address] [place] [address] 03/02/2024 12:27 PM [employer] - 03/02/2024 1:07 PM [employer] Surgery [facility] Surgery [address] [place] [address] [place] [address] [place] [address] MANIPULATION SHOULDER 03/05/2024 9:00 AM [employer] Appointment [facility] [address] [place] [address] [place] [address] [place] [address] Lorene Branch, APPLICATION CHEMIST 03/08/2024 9:00 AM [employer] Appointment [facility] [address] [place] [address] [place] [address] [place] [address] Lorene Branch, APPLICATION CHEMIST 03/11/2024 9:15 AM [employer] Appointment [facility] [address] [place] [address] [place] [address] [place] [address] Lorene Branch, APPLICATION CHEMIST 03/15/2024 9:00 AM [employer] Appointment [facility] [address] [place] [address] [place] [address] [place] [address] Lorene Branch, APPLICATION CHEMIST 03/18/2024 9:15 AM [employer] Appointment [facility] [address] [place] [address] [place] [address] [place] [address] Lorene Branch, APPLICATION CHEMIST 03/22/2024 9:00 AM [employer] Appointment [facility] [address] [place] [address] [place] [address] [place] [address] Lorene Branch, APPLICATION CHEMIST 03/25/2024 9:15 AM [employer] Appointment [facility] [address] [place] [address] [place] [address] [place] [address] Lorene Branch, APPLICATION CHEMIST 04/21/2024 11:20 AM [employer] Office Visit [facility] Medical Group Family & Internal Medicine [address] [address] [place] [address] [place] [address] Scheduled Procedures Name Priority Associated Diagnoses Date/Ti me MANIPULATION SHOULDER Adhesive capsulitis of left shoulder 03/02/2024 12:27 PM [employer] INJECTION JOINT Adhesive capsulitis of left shoulder 03/02/2024 12:27 PM [employer] Scheduled Referrals Name Type Priority Associated Diagnoses [...] documented as of this encounter Care Teams Kier Tender Relationship Specialty [place] [address] [place] [address] PCP - General Physician Stock Letterer Medical 09/16/23 documented as of this encounter
--- OUTSIDE RECORDS SUMMARY | 2024-02-12 08:33 | XMS_ITS | Encounter Summary ---
Author Organization [facility] Address Formerly [facility] Formerly [facility]. [place], [place] [address] [place] [address] Care Team Providers Care Administrative Court Justice Name Role Phone Holger Soriano Primary Care Provider Reason for Visit * Reason Comments Shoulder Pain * Physical Medicine (Urgent) - Authorized Specialty Diagnoses / Procedures Referred By Contac t Referred To Contact PHYSICAL THERAPY Diagnoses Left shoulder pain Low back pain Procedures OFFICE/OUTPATIENT NEW LOW MDM 30-44 MINUTES OFFICE/OUTPT VISIT,NEW,LEVL IV OFFICE/OUTPT VISIT,NEW,LEVL V OFFICE/OUTPT VISIT,EST,LEVL III OFFICE/OUTPT VISIT,EST,LEVL IV OFFICE/OUTPT VISIT,EST,[place] [address] [place] [address] Phone: tel: fax: [facility] [address] [place] [address] Phone: tel: fax: Referral ID Status Reason Start Date Expiration Date Visits Requested Visits Authorized [id number] Authorized Physical Therapy 10/13/2023 11/11/2024 99 99 Encounter Details Date Type Department Care Team (Latest Contact Info) Description 10/23/2023 8:29 AM CDT - 10/23/2023 11:59 PM CDT Hospital Encounter [facility] [address] [place] [address] [place] [address] [place], [place] [id number] [place] [address] [place], [place] [id number] Shoulder Pain Discharge Disposition: Home or Self [...] complication, with long-term current use of insulin ([facility]) Inject 1 mg into the [...] Fall of 2022 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 at a [...] 48 year old female who presents to [facility] PT with complaint of L shoulder and [...] PT Eval Moderate Complexity - Minutes - 85240: 60 (including chart review and documentation time) Education Was Education Provided: Yes Topic: ther ex technique, PT POC, HEP, shoulder and cervical anatomy Recipient: Patient Method: Verbal, Demonstration, Return Demonstration, Written Response: Asked questions, Verbalized understanding PLAN Plan Treatments/Interventions: Neuromuscular Re-education - 46390, Therapeutic Activities - 41773, Therapeutic Exercise - 89607, Electrical Stimulation Unattended - 47134, Mechanical Traction - 74281, Ultrasound - 44704, Manual Therapy - , Hot/Cold Pack - , Dry Needling - , Dry Needling - Therapy Frequency: 2 times/week Duration of treatment time: 8 weeks TREATMENT PROVIDED TODAY Timed Treatments Therapeutic Exercise Minutes - 93883: 15 Therapeutic Exercise - 53670: Instruction in HEP of pulleys flex and [...] Name: Oumou Middleton Patient : 1975 Patient [facility] [id number] [facility] [address] Dept: [phone] Dept Cosigned by TYLER Weaver at 10/23/2023 2:16 PM CDT documented in this encounter Plan of Treatment Upcoming Encounters Date Type Department Care Team (Late st Contact Info) Description 02/12/2024 9:00 AM WOOL BROKER Appointment [facility] [address] [place] [address] [place] [address] [place] [address] [place] [address] [place] [address] 02/12/2024 2:00 PM WOOL BROKER Appointment [facility] [address] [place] [address] [place] [address] [place] [address] 02/16/2024 9:00 AM WOOL BROKER Appointment [facility] [address] [place] [address] [place] [address] [place] [address] [place] [address] [place] [address] 02/19/2024 8:45 AM WOOL BROKER Appointment [facility] [address] [place] [address] [place] [address] [place] [address] [place] [address] [place] [address] 02/19/2024 9:00 AM WOOL BROKER Appointment [facility] [address] [place] [address] [place] [address] [place] [address] [place] [address] [place] [address] 02/23/2024 9:00 AM WOOL BROKER Appointment [facility] [address] [place] [address] [place] [address] [place] [address] [place] [address] [place] [address] 02/24/2024 1:30 PM WOOL BROKER Appointment [facility] [address] [place] [address] [place] [address] [place] [address] 02/26/2024 9:00 AM WOOL BROKER Appointment [facility] [address] [place] [address] [place] [address] [place] [address] [place] [address] [place] [address] 02/26/2024 9:15 AM WOOL BROKER Appointment [facility] [address] [place] [address] [place] [address] [place] [address] [place] [address] [place] [address] 03/01/2024 9:00 AM WOOL BROKER Appointment [facility] [address] [place] [address] [place] [address] [place] [address] [place] [address] [place] [address] Lorene Branch, PHLEBOTOMY TECHNOLOGIST 03/02/2024 12:27 PM WOOL BROKER Hospital Encounter [facility] [address] [place] [address] [place] [address] [place] [address] 03/02/2024 12:27 PM WOOL BROKER - 03/02/2024 1:07 PM WOOL BROKER Surgery [facility] [address] [place] [address] [place] [address] [place] [address] MANIPULATION SHOULDER 03/05/2024 9:00 AM WOOL BROKER Appointment [facility] [address] [place] [address] [place] [address] [place] [address] Lorene Branch, PHLEBOTOMY TECHNOLOGIST 03/08/2024 9:00 AM WOOL BROKER Appointment [facility] [address] [place] [address] [place] [address] [place] [address] Lorene Branch, PHLEBOTOMY TECHNOLOGIST 03/11/2024 9:15 AM WOOL BROKER Appointment [facility] [address] [place] [address] [place] [address] [place] [address] Lorene Branch, PHLEBOTOMY TECHNOLOGIST 03/15/2024 9:00 AM WOOL BROKER Appointment [facility] [address] [place] [address] [place] [address] [place] [address] Lorene Branch, PHLEBOTOMY TECHNOLOGIST 03/18/2024 9:15 AM WOOL BROKER Appointment [facility] [address] [place] [address] [place] [address] [place] [address] Lorene Branch, PHLEBOTOMY TECHNOLOGIST 03/22/2024 9:00 AM WOOL BROKER Appointment [facility] [address] [place] [address] [place] [address] [place] [address] Lorene Branch, PHLEBOTOMY TECHNOLOGIST 03/25/2024 9:15 AM WOOL BROKER Appointment [facility] [address] [place] [address] [place] [address] [place] [address] Lorene Branch, PHLEBOTOMY TECHNOLOGIST 04/21/2024 11:20 AM WOOL BROKER Office Visit [facility] Family & Internal Medicine [address] [phone] [place] [address] [place] [address] Scheduled Procedures Name Priority Associated Diagnoses Date/Ti me MANIPULATION SHOULDER Adhesive capsulitis of left shoulder 03/02/2024 12:27 PM WOOL BROKER INJECTION JOINT Adhesive capsulitis of left shoulder 03/02/2024 12:27 PM WOOL BROKER documented as of this encounter Visit Diagnoses Diagnosis Left shoulder pain- Primary Pain in joint, shoulder region Adhesive capsulitis of left shoulder Adhesive capsulitis of shoulder documented in this encounter Additional Health Concerns Assessment Noted Time PHQ-9 Depression Total Score: 24 024 3:24 PM CDT documented as of this encounter Care Teams Administrative Court Justice Relationship Specialty [place] [address] [place] [address] PCP - General Physician Playroom Attendant Medical 09/16/23 documented as of this encounter
--- OUTSIDE RECORDS SUMMARY | 2024-02-12 08:33 | XMS_ITS | Encounter Summary ---
Author Organization [facility] Address [facility] [place] [address] [place] [address] Care Team Providers Care Warehouse Driver Name Role Phone Holger Soriano Primary Care Provider [phone] Encounter Details Date Type Department Care Team [...] st Contact Info) Description 02/12/2024 9:00 AM PARTY DIRECTOR Appointment [facility] [address] [place] [address] [place] [address] [place] [address] [place] [address] [place] [id number] 02/12/2024 2:00 PM PARTY DIRECTOR [address]oint[address] [facility] MRI [address] [place] [address] [place] [address] [place] [address] 02/16/2024 9:00 AM PARTY DIRECTOR Appointment [facility] [address] [place] [address] [place] [address] [place] [address] [place] [address] [place] [address] 02/19/2024 8:45 AM PARTY DIRECTOR Appointment [facility] [address] [place] [address] [place] [address] [place] [address] [place] [address] [place] [address] 02/19/2024 9:00 AM PARTY DIRECTOR Appointment [facility] [address] [place] [address] [place] [address] [place] [address] [place] [address] [place] [address] 02/23/2024 9:00 AM PARTY DIRECTOR Appointment [facility] [address] [place] [address] [place] [address] [place] [address] [place] [address] [place] [address] 02/24/2024 1:30 PM PARTY DIRECTOR Appointment [facility] [address] [place] [address] [place] [address] [place] [address] 02/26/2024 9:00 AM PARTY DIRECTOR Appointment [facility] [address] [place] [address] [place] [address] [place] [address] [place] [address] [place] [address] 02/26/2024 9:15 AM PARTY DIRECTOR Appointment [facility] [address] [place] [address] [place] [address] [place] [address] [place] [address] [place] [address] 03/01/2024 9:00 AM PARTY DIRECTOR Appointment [facility] [address] [place] [address] [place] [address] [place] [address] [place] [address] [place] [address] Lorene Branch, REMNANT SORTER 03/02/2024 12:27 PM PARTY DIRECTOR Hospital Encounter [facility] [address] [place] [address] [place] [address] [place] [address] 03/02/2024 12:27 PM PARTY DIRECTOR - 03/02/2024 1:07 PM PARTY DIRECTOR Surgery [address] [address] [place] [address] [place] [address] MANIPULATION SHOULDER 03/05/2024 9:00 AM PARTY DIRECTOR Appointment [facility] [address] [place] [address] [place] [address] [place] [address] Lorene Branch, REMNANT SORTER 03/08/2024 9:00 AM PARTY DIRECTOR Appointment [facility] [address] [place] [address] [place] [address] [place] [address] Lorene Branch, REMNANT SORTER 03/11/2024 9:15 AM PARTY DIRECTOR Appointment [facility] [address] [place] [address] [place] [address] [place] [address] Lorene Branch, REMNANT SORTER 03/15/2024 9:00 AM PARTY DIRECTOR Appointment [facility] [address] [place] [address] [place] [address] [place] [address] Lorene Branch, REMNANT SORTER 03/18/2024 9:15 AM PARTY DIRECTOR Appointment [facility] [address] [place] [address] [place] [address] [place] [address] Lorene Branch, REMNANT SORTER 03/22/2024 9:00 AM PARTY DIRECTOR Appointment [facility] [address] [place] [address] [place] [address] [place] [address] Lorene Branch, REMNANT SORTER 03/25/2024 9:15 AM PARTY DIRECTOR Appointment [facility] [address] [place] [address] [place] [address] [place] [address] Lorene Branch, REMNANT SORTER 04/21/2024 11:20 AM PARTY DIRECTOR Office Visit [facility] Family & Internal Medicine - [address] [phone] [place] [address] [place] [address] Scheduled Procedures Name Priority Associated Diagnoses Date/Ti me MANIPULATION SHOULDER Adhesive capsulitis of left shoulder 03/02/2024 12:27 PM PARTY DIRECTOR INJECTION JOINT Adhesive capsulitis of left shoulder 03/02/2024 12:27 PM PARTY DIRECTOR documented as of this encounter Visit Diagnoses Not on filedocumented in this encounter Additional Health Concerns Assessment Noted Time PHQ-9 Depression Total Score: 024 3:24 PM CDT documented as of this encounter Care Teams Warehouse Driver Relationship Specialty [place] [address] [place] [address] PCP - General Physician Hydro Mechanic Medical 09/16/23 documented as of this encounter
--- OUTSIDE RECORDS SUMMARY | 2024-02-12 08:33 | XMS_ITS | Encounter Summary ---
Author Organization [facility] Address [facility] [place] [address] [place] [address] Care Team Providers Care Ultrasound Technol Name Role Phone Holger Soriano Primary Care Provider [phone] Encounter Details Date Type Department Care Team (Latest Contact Info) Description 10/17/2023 12:21 PM CDT - 10/17/2023 11:59 PM CDT Hospital Encounter [facility] [address] [place], [place] [address] [place] [address] [place], [place] [phone] Discharge Disposition: Home or Self Care (Routine [...] complication, with long-term current use of insulin ([facility]) Inject 1 mg into the [...] st Contact Info) Description 02/12/2024 9:[address] LIGHT Appointment [facility] [address] [place] [address] [place] [address] [place] [address] [place] [address] [place] [address] 02/12/2024 2:[address] LIGHT Appointment [facility] [address] [place] [address] [place] [address] [place] [address] 02/16/2024 9:[address] LIGHT Appointment [facility] [address] [place] [address] [place] [address] [place] [address] [place] [address] [place] [address] 02/19/2024 8:[address] LIGHT Appointment [facility] [address] [place] [address] [place] [address] [place] [address] [place] [address] [place] [address] 02/19/2024 9:[address] LIGHT Appointment [facility] [address] [place] [address] [place] [address] [place] [address] [place] [address] [place] [address] 02/23/2024 9:[address] LIGHT Appointment [facility] [address] [place] [address] [place] [address] [place] [address] [place] [address] [place] [address] 02/24/2024 1:[address] LIGHT Appointment [facility] MRI [address] [place] [address] [place] [address] [place] [address] 02/26/2024 9:[address] LIGHT Appointment [facility] [address] [place] [address] [place] [address] [place] [address] [place] [address] [place] [address] 02/26/2024 9:[address] LIGHT Appointment [facility] [address] [place] [address] [place] [address] [place] [address] [place] [address] [place] [address] 03/01/2024 9:[address] LIGHT Appointment [facility] [address] [place] [address] [place] [address] [place] [address] [place] [address] [place] [address] Lorene Branch PTA 03/02/2024 12:[address] LIGHT Hospital Encounter [facility] [address] [place] [address] [place] [address] [place] [address] 03/02/2024 12:[address] LIGHT - 03/02/2024 1:[address] LIGHT Surgery [facility] [address] [place] [address] [place] [address] [place] [address] MANIPULATION SHOULDER 03/05/2024 9:[address] LIGHT Appointment [facility] [address] [place] [address] [place] [address] [place] [address] Lorene Branch, PRODUCE INSPECTOR 03/08/2024 9:[address] LIGHT Appointment [facility] [address] [place] [address] [place] [address] [place] [address] Lorene Branch, PRODUCE INSPECTOR 03/11/2024 9:[address] LIGHT Appointment [facility] [address] [place] [address] [place] [address] [place] [address] Lorene Branch, PRODUCE INSPECTOR 03/15/2024 9:[address] LIGHT Appointment [facility] [address] [place] [address] [place] [address] [place] [address] Lorene Branch, PRODUCE INSPECTOR 03/18/2024 9:[address] LIGHT Appointment [facility] [address] [place] [address] [place] [address] [place] [address] Lorene Branch, PRODUCE INSPECTOR 03/22/2024 9:[address] LIGHT Appointment [facility] [address] [place] [address] [place] [address] [place], [place] [address] Lorene Branch, PRODUCE INSPECTOR 03/25/2024 9:[address] LIGHT Appointment [facility] [address] [place] [address] [place] [address] [place] [address] Lorene Branch, PRODUCE INSPECTOR 04/21/2024 11:[address] LIGHT Office Visit [facility] Family & Internal Medicine - [address] [phone] [place] [address] [place] [address] Scheduled Procedures Name Priority Associated Diagnoses Date/Ti me MANIPULATION SHOULDER Adhesive capsulitis of left shoulder 03/02/2024 12:[address] LIGHT INJECTION JOINT Adhesive capsulitis of left shoulder 03/02/2024 12:[address] LIGHT documented as of this encounter Procedures Procedure Name Priority Date/Time Associated Diagnosis Comments CULTURE STREP A Routine 10/17/2023 10:59 AM CDT Sore throat documented in this encounter Results * CULTURE STREP A (10/17/2023 10:59 AM CDT) SPEC DESCRIPTION THROAT 10/17/2023 12:21 PM CDT [facility] SPECIAL REQUESTS NO SPECIAL REQUEST 10/17/2023 12:21 PM CDT [facility] CULTURE RESULT NO STREPTOCOCCUS PYOGENES (GROUP A) ISOLATED 10/20/2023 7:13 AM CDT [facility] THROAT SWAB / Unknown 10/17/2023 10:59 AM CDT 10/17/2023 12:31 PM CDT us Holger SCOTT MICROBIOLOGY - GENERAL ORDERAB LES Final Result [facility] [address] [place] [address], [facility] [address] [place] [address], documented in this encounter Visit Diagnoses Diagnosis Sore throat Acute pharyngitis Adhesive capsulitis of left shoulder Adhesive capsulitis of shoulder documented in this encounter Additional Health Concerns Assessment Noted Time PHQ-9 Depression Total Score: 24 024 3:24 PM CDT documented as of this encounter Care Teams Ultrasound Technol Relationship Specialty [place] [address] [place] [address] PCP - General Physician Nursery Attendant Medical 09/16/23 documented as of this encounter
--- OUTSIDE RECORDS SUMMARY | 2024-02-12 08:34 | XMS_ITS | Encounter Summary ---
Author Organization [facility] Address [facility] [place] [address] [place] [address] Care Team Providers Care Voice Systems Engineer Name Role Phone Marv Young NP Primary Care Provide r Reason for Visit * Reason Onset Date Comments Medication Request 07/08/2023 Encounter Details Date Type Department Care Team (Late st Contact Info) Description 07/08/2023 Telephone [facility] Medical Group Family & Internal Medicine [facility] [address] [place] [address] Marv Young, GRACE 6 [facility] [place] [address] Medication Request Social History Tobacco [...] st Contact Info) Description 02/12/2024 9:00 AM BALLAST CLEANING MACHINE OPERATOR Appointment [facility] [address] [place] [address] [place] [address] [place] [address] [place] [address] [place] [address] 02/12/2024 2:00 PM BALLAST CLEANING MACHINE OPERATOR [facility] [address] [place] [address] [place] [address] [place] [address] 02/16/2024 9:00 AM BALLAST CLEANING MACHINE OPERATOR [facility]ointment [facility] [address] [place] [address] [place] [address] [place] [address] [place] [address] [place] [address] 02/19/2024 8:45 AM BALLAST CLEANING MACHINE OPERATOR [facility]ointment [facility] [address] [place] [address] [place] [address] [place] [address] [place] [address] [place] [address] 02/19/2024 9:00 AM BALLAST CLEANING MACHINE OPERATOR Appointment [facility] [address] [place] [address] [place] [address] [place] [address] [place] [address] [place] [address] 02/23/2024 9:00 AM BALLAST CLEANING MACHINE OPERATOR Appointment [facility] [address] [place] [address] [place] [address] [place] [address] [place] [address] [place] [address] 02/24/2024 1:30 PM BALLAST CLEANING MACHINE OPERATOR Appointment [facility] [address] [place] [address] Ihsan Logan, [address] [place] [address] 02/26/2024 9:00 AM BALLAST CLEANING MACHINE OPERATOR Appointment [facility] [address] [place] [address] [place] [address] [place] [address] [place] [address] [place] [address] 02/26/2024 9:15 AM BALLAST CLEANING MACHINE OPERATOR Appointment [facility] [address] [place] [address] [place] [address] [place] [address] [place] [address] [place] [address] 03/01/2024 9:00 AM BALLAST CLEANING MACHINE OPERATOR Appointment [facility] [address] [place] [address] [place] [address] [place] [address] [place] [address] [place] [address] Lorene Branch, BOOTH CLEANER 03/02/2024 12:27 PM BALLAST CLEANING MACHINE OPERATOR Hospital Encounter [address] [address] [place] [address] [place] [address] 03/02/2024 12:27 PM BALLAST CLEANING MACHINE OPERATOR - 03/02/2024 1:07 PM BALLAST CLEANING MACHINE OPERATOR Surgery [facility] Surgery [address] [place] [address] [place] [address] [place] [address] MANIPULATION SHOULDER 03/05/2024 9:00 AM BALLAST CLEANING MACHINE OPERATOR Appointment [facility] [address] [place] [address] [place] [address] [place] [address] Lorene Branch, BOOTH CLEANER 03/08/2024 9:00 AM BALLAST CLEANING MACHINE OPERATOR Appointment [facility] [address] [place] [address] [place] [address] [place] [address] Lorene Branch, BOOTH CLEANER 03/11/2024 9:15 AM BALLAST CLEANING MACHINE OPERATOR Appointment [facility] [address] [place] [address] [place] [address] [place] [address] Lorene Branch, BOOTH CLEANER 03/15/2024 9:00 AM BALLAST CLEANING MACHINE OPERATOR Appointment [facility] [address] [place] [address] [place] [address] [place] [address] Lorene Branch, BOOTH CLEANER 03/18/2024 9:15 AM BALLAST CLEANING MACHINE OPERATOR Appointment [facility] [address] [place] [address] [place] [address] [place] [address] Lorene Branch, BOOTH CLEANER 03/22/2024 9:00 AM BALLAST CLEANING MACHINE OPERATOR Appointment [facility] [address] [place] [address] [place] [address] [place] [address] Jose Carlos Lorene L, BOOTH CLEANER 03/25/2024 9:15 AM BALLAST CLEANING MACHINE OPERATOR Appointment [facility] [address] [place] [address] [place] [address] [place], [place] [address] Lorene Branch Marcia, BOOTH CLEANER 04/21/2024 11:20 AM BALLAST CLEANING MACHINE OPERATOR Office Visit [facility] Medical Group Family & Internal Medicine - [place] [address] [place] [phone] [place] [address] [place] [address] Scheduled Procedures Name Priority Associated Diagnoses Date/Ti me MANIPULATION SHOULDER Adhesive capsulitis of left shoulder 03/02/2024 12:27 PM BALLAST CLEANING MACHINE OPERATOR INJECTION JOINT Adhesive capsulitis of left shoulder 03/02/2024 12:27 PM BALLAST CLEANING MACHINE OPERATOR documented as of this encounter Visit Diagnoses Diagnosis Chronic left shoulder pain Pain in joint, shoulder region Adhesive capsulitis of left shoulder Adhesive capsulitis of shoulder documented in this encounter Additional Health Concerns Assessment Noted Time PHQ-9 Depression Total Score: 5 03/18/19 24 2:22 PM BALLAST CLEANING MACHINE OPERATOR documented as of this encounter Care Teams Voice Systems Engineer Relationship Specialty Start Date End Date Marv Young NP PCP - General NURSE PRACTITIONER ADULT HEALTH 03/11/23 09/14/23 documented as of this encounter
--- OUTSIDE RECORDS SUMMARY | 2024-02-12 08:34 | XMS_ITS | Encounter Summary ---
Author Organization [facility] Address Counts include 234 beds at the [facility] [place] [address] [place] [address] Care Team Providers Care Sports Leadership Instructor Name Role Phone Marv Young NP Primary Care Provide r Brennon Flores MD Primary Care Provider [phone] Holger Soriano Primary Care Provider [phone] Encounter Details Date Type Department Care Team (Late st Contact Info) Description 08/22/2023 [employer] Message Enc [facility] Medical Group Family & Internal Medicine [facility] [address] [place] [address] [facility] medication refills Social History Tobacco Use [...] st Contact Info) Description 02/12/2024 9:00 AM BLOW PIT HELPER Appointment [facility] [address] [place] [address], [place] [address] [place] [address] [place] [address] [place] [address] [place] [address] 02/12/2024 2:00 PM BLOW PIT HELPER Appointment [facility] [address] [place] [address] [place] [address] [place] [address] 02/16/2024 9:00 AM BLOW PIT HELPER Appointment [facility] [address] [place] [address] [place] [address] [place] [address] [place] [address] [place] [address] 02/19/2024 8:45 AM BLOW PIT HELPER Appointment [facility] [address] [place] [address] [place] [address] [place] [address] [place] [address] [place] [address] 02/19/2024 9:00 AM BLOW PIT HELPER Appointment [facility] [address] [place] [address] [place] [address] [place] [address] [place] [address] [place] [address] 02/23/2024 9:00 AM BLOW PIT HELPER Appointment [facility] [address] [place] [address] [place] [address] [place] [address] [place] [address] [place] [address] 02/24/2024 1:30 PM BLOW PIT HELPER Appointment [address] [address] Ihsan Logan, [address] [place] [address] 02/26/2024 9:00 AM BLOW PIT HELPER Appointment [facility] [address] [place] [address] [place] [address] [place] [address] [place] [address] [place] [address] 02/26/2024 9:15 AM BLOW PIT HELPER Appointment [facility] [address] [place] [address] [place] [address] [place] [address] [place] [address] [place] [address] 03/01/2024 9:00 AM BLOW PIT HELPER Appointment [facility] [address] [place] [address] [place] [address] [place] [address] [place] [address] [place] [address] Lorene Branch, BURLAP BAG SEWER 03/02/2024 12:27 PM BLOW PIT HELPER Hospital Encounter [facility] Surgery [address] [place] [address] [place] [address] [place] [address] 03/02/2024 12:27 PM BLOW PIT HELPER - 03/02/2024 1:07 PM BLOW PIT HELPER Surgery [facility] [address] [place] [address] [place] [address] [place] [address] MANIPULATION SHOULDER 03/05/2024 9:00 AM BLOW PIT HELPER Appointment [facility] [address] [place] [address] [place] [address] [place] [address] Lorene Branch, BURLAP BAG SEWER 03/08/2024 9:00 AM BLOW PIT HELPER Appointment [facility] [address] [place] [address] [place] [address] [place] [address] Lorene Branch, BURLAP BAG SEWER 03/11/2024 9:15 AM BLOW PIT HELPER Appointment [facility] [address] [place] [address] [place] [address] [place] [address] Lorene Branch, BURLAP BAG SEWER 03/15/2024 9:00 AM BLOW PIT HELPER Appointment [facility] [address] [place] [address] [place] [address] [place] [address] Lorene Branch, BURLAP BAG SEWER 03/18/2024 9:15 AM BLOW PIT HELPER Appointment [facility] [address] [place] [address] [place] [address] [place] [address] Lorene Branch, BURLAP BAG SEWER 03/22/2024 9:00 AM BLOW PIT HELPER Appointment [facility] [address] [place] [address] [place] [address] [place] [address] Lorene Branch, BURLAP BAG SEWER 03/25/2024 9:15 AM BLOW PIT HELPER Appointment [facility] [address] [place] [address] [place] [address] [place] [address] Lorene Branch, BURLAP BAG SEWER 04/21/2024 11:20 AM BLOW PIT HELPER Office Visit [facility] Medical Group Family & Internal Medicine [facility] [address] [place] [address] [place] [address] [place] [address] Scheduled Procedures Name Priority Associated Diagnoses Date/Ti me MANIPULATION SHOULDER Adhesive capsulitis of left shoulder 03/02/2024 12:27 PM BLOW PIT HELPER INJECTION JOINT Adhesive capsulitis of left shoulder 03/02/2024 12:27 PM BLOW PIT HELPER documented as of this encounter Visit Diagnoses Not on filedocumented in this encounter Additional Health Concerns Infection Onset Date Last Indicated Resolved Time COVID-19 Rule Out 10/17/2023 10/17/2023 10/17/2023 10:57 AM CDT COVID-19 Rule Out 12/29/2023 12/29/2023 12/29/2023 12:59 PM BLOW PIT HELPER Assessment Noted Time PHQ-9 Depression Total Score: 5 03/18/19 24 2:22 PM BLOW PIT HELPER documented as of this encounter Care Teams Sports Leadership Instructor Relationship Specialty Start Date End Date Marv Young NP PCP - General NURSE PRACTITIONER ADULT HEALTH 03/11/23 09/14/23 [place] [address] [facility] [address] [place] [address] PCP - General INTERNAL MEDICINE 09/15/23 09/15/23 [place] [address] [place] [address] PCP - General Physician Process Chemist Medical 09/16/23 documented as of this encounter
--- OUTSIDE RECORDS SUMMARY | 2024-02-12 08:34 | XMS_ITS | Encounter Summary ---
Author Organization [facility] Address [facility] [place] [place] [address] [place] [address] Care Team Providers Care Final Coat Sprayer Name Role Phone Holger Soriano Primary Care Provider [phone] Reason for Visit * Reason Comments Follow Up 3 month follow upPt has not had any of her medication due to no refill from previous PCP Diabetes Depression Insomnia NOS Encounter Details Date Type Department Care Team (Late st Contact Info) Description 09/16/2023 2:20 PM CDT Office Visit [facility] Medical Group Family & Internal Medicine [facility] [address] [place] [address] Marv Young, GRACE [address] [place] [address] [place] [address] Holger Soriano [place] [address] [place] [address] Follow Up (3 month follow up/Pt [...] to transfer care from Aman Young to in. She was to see Dr. Tripp but [...] ADHD Asthma ([facility]) COPD (chronic obstructive pulmonary disease) ([facility]) History reviewed. No pertinent surgical [...] st Contact Info) Description 02/12/2024 9:00 AM READING PROFESSOR Appointment [facility] [address] [place] [address] [place] [address] [place] [address] [place] [address] [place], [place] [address] 02/12/2024 2:00 PM READING PROFESSOR Appointment [facility] [address] [place] [address] [place] [address] [place] [address] 02/16/2024 9:00 AM READING PROFESSOR Appointment [facility] [address] [place] [address] [place] [address] [place] [address] [place] [address] [place], [place] [address] 02/19/2024 8:45 AM READING PROFESSOR Appointment [facility] [address] [place] [address] [place] [address] [place] [address] [place] [address] [place] [address] 02/19/2024 9:00 AM READING PROFESSOR Appointment [facility] [address] [place] [address] [place] [address] [place] [address] [place] [address] [place] [address] 02/23/2024 9:00 AM READING PROFESSOR Appointment [facility] [address] [place] [address] [place] [address] [place] [address] [place] [address] [place] [address] 02/24/2024 1:30 PM READING PROFESSOR Appointment [facility] [address] [place] [address] Ihsan Logan, [address] [place] [address] 02/26/2024 9:00 AM READING PROFESSOR Appointment [facility] [address] [place] [address] [place] [address] [place] [address] [place] [address] [place] [address] 02/26/2024 9:15 AM READING PROFESSOR Appointment [facility] [address] [place] [address] [place] [address] [place] [address] [place] [address] [place] [address] 03/01/2024 9:00 AM READING PROFESSOR Appointment [facility] [address] [place] [address] [place] [address] [place] [address] [place] [address] [place] [address] Lorene Branch, DIRECTOR BUSINESS INTELLIGENCE 03/02/2024 12:27 PM READING PROFESSOR Hospital Encounter [address] [address] [place] [address] [place] [address] 03/02/2024 12:27 PM READING PROFESSOR - 03/02/2024 1:07 PM READING PROFESSOR Surgery [facility] Surgery [address] [place] [address] [place] [address] [place] [address] MANIPULATION SHOULDER 03/05/2024 9:00 AM READING PROFESSOR Appointment [facility] [address] [place] [address] [place] [address] [place] [address] Lorene Branch, DIRECTOR BUSINESS INTELLIGENCE 03/08/2024 9:00 AM READING PROFESSOR Appointment [facility] [address] [place] [address] [place] [address] [place] [address] Lorene Branch, DIRECTOR BUSINESS INTELLIGENCE 03/11/2024 9:15 AM READING PROFESSOR Appointment [facility] [address] [place] [address] [place] [address] [place] [address] Lorene Branch, DIRECTOR BUSINESS INTELLIGENCE 03/15/2024 9:00 AM READING PROFESSOR Appointment [facility] [address] [place] [address] [place] [address] [place] [address] Lorene Branch, DIRECTOR BUSINESS INTELLIGENCE 03/18/2024 9:15 AM READING PROFESSOR Appointment [facility] [address] [place] [address] [place] [address] [place] [address] Lorene Branch, DIRECTOR BUSINESS INTELLIGENCE 03/22/2024 9:00 AM READING PROFESSOR Appointment [facility] [address] [place] [address] [place] [address] [place] [address] Lorene Branch, DIRECTOR BUSINESS INTELLIGENCE 03/25/2024 9:15 AM READING PROFESSOR Appointment [facility] [address] [place] [address] [place] [address] [place] [address] Lorene Branch, DIRECTOR BUSINESS INTELLIGENCE 04/21/2024 11:20 AM READING PROFESSOR Office Visit [facility] Medical Group Family & Internal Medicine [facility] [address] [place] [address] [place] [address] [place] [address] Scheduled Procedures Name Priority Associated Diagnoses Date/Ti me MANIPULATION SHOULDER Adhesive capsulitis of left shoulder 03/02/2024 12:27 PM READING PROFESSOR INJECTION JOINT Adhesive capsulitis of left shoulder 03/02/2024 12:27 PM READING PROFESSOR documented as of this encounter Visit Diagnoses Diagnosis Type 2 diabetes mellitus without complication, with long-term current use of insulin ([facility])- Primary Migraine with status migrainosus, not intractable, unspecified migraine type Bipolar I disorder with depression ([facility]) Bipolar I disorder, most recent episode (or current) depressed, unspecified Mild intermittent asthma without complication ([facility]) Unspecified asthma Radiculopathy of cervicothoracic region Brachial neuritis or radiculitis nos Depression, unspecified depression type Generalized anxiety disorder Adhesive capsulitis of left shoulder Adhesive capsulitis of shoulder documented in this encounter Additional Health Concerns Assessment Noted Time PHQ-9 Depression Total Score: 24 024 3:24 PM CDT documented as of this encounter Care Teams Final Coat Sprayer Relationship Specialty Start Date End Date Holger Soriano PA [address] [place] [address], [place] [address] PCP - General Physician [employer]roleum Refinery Laborer Medical 09/16/23 documented as of this encounter
--- OUTSIDE RECORDS SUMMARY | 2024-02-12 08:34 | XMS_ITS | Encounter Summary ---
Author Organization [facility] Address [facility] [place] [address] [place] [address] Care Team Providers Care Stoneworking Sander Name Role Phone Marv Young NP Primary Care Provide r Brennon [place] MD Primary Care Provider [phone] Holger Soriano Primary Care Provider [phone] Encounter Details Date Type Department Care Team (Late st Contact Info) Description 09/11/2023 Instamour Message Enc [facility] Medical Group Family & Internal Medicine [facility] [address] [place] [address] Kayla, [facility] Provider reschedule appoitment Social History Tobacco Use [...] st Contact Info) Description 02/12/2024 9:00 AM OVEN UNLOADER Appointment [facility] [address] [place] [address] [place] [address] [place] [address] [place] [address] [place] [address] 02/12/2024 2:00 PM OVEN UNLOADER Appointment [place] [id number] [place] [address] [place] [address] [place] [address] 02/16/2024 9:00 AM OVEN UNLOADER Appointment [facility] [address] [place] [address] [place] [address] [place] [address] [place] [address] [place] [address] 02/19/2024 8:45 AM OVEN UNLOADER Appointment [facility] [address] [place] [address] [place] [address] [place] [address] [place] [address] [place] [address] 02/19/2024 9:00 AM OVEN UNLOADER Appointment [facility] [address] [place] [address] [place] [address] [place] [address] [place] [address] [place] [address] 02/23/2024 9:00 AM OVEN UNLOADER Appointment [facility] [address] [place] [address] [place] [address] [place] [address] [place] [address] [place] [address] 02/24/2024 1:30 PM OVEN UNLOADER Appointment [facility] MRI [address] [place] [address] Ihsan Logan, [address] [place] [address] 02/26/2024 9:00 AM OVEN UNLOADER Appointment [facility] [address] [place] [address] [place] [address] [place] [address] [place] [address] [place] [address] 02/26/2024 9:15 AM OVEN UNLOADER Appointment [facility] [address] [place] [address] [place] [address] [place] [address] [place] [address] [place] [address] 03/01/2024 9:00 AM OVEN UNLOADER Appointment [facility] [address] [place] [address] [place] [address] [place] [address] [place] [address] [place] [address] Lorene Branch, REVENUE INVESTIGATOR 03/02/2024 12:27 PM OVEN UNLOADER Hospital Encounter [facility] Surgery [address] [place] [address] [place] [address] [place] [address] 03/02/2024 12:27 PM OVEN UNLOADER - 03/02/2024 1:07 PM OVEN UNLOADER Surgery [facility] Surgery [address] [place] [address] [place] [address] [place] [address] MANIPULATION SHOULDER 03/05/2024 9:00 AM OVEN UNLOADER Appointment [facility] [address] [place] [address] [place] [address] [place] [address] Lorene Branch, REVENUE INVESTIGATOR 03/08/2024 9:00 AM OVEN UNLOADER Appointment [facility] [address] [place] [address] [place] [address] [place] [address] Lorene Branch, REVENUE INVESTIGATOR 03/11/2024 9:15 AM OVEN UNLOADER Appointment [facility] [address] [place] [address] [place] [address] [place] [address] Lorene Branch, REVENUE INVESTIGATOR 03/15/2024 9:00 AM OVEN UNLOADER Appointment [facility] [address] [place] [address] [place] [address] [place] [address] Lorene Branch, REVENUE INVESTIGATOR 03/18/2024 9:15 AM OVEN UNLOADER Appointment [facility] [address] [place] [address] [place] [address] [place] [address] Lorene Branch, REVENUE INVESTIGATOR 03/22/2024 9:00 AM OVEN UNLOADER Appointment [facility] [address] [place] [address] [place] [address] [place] [address] Lorene Branch, REVENUE INVESTIGATOR 03/25/2024 9:15 AM OVEN UNLOADER Appointment [facility] [address] [place] [address] [place] [address] [place] [address] Lorene Branch, REVENUE INVESTIGATOR 04/21/2024 11:20 AM OVEN UNLOADER Office Visit [facility] Medical Group Family & Internal Medicine [facility] [address] [place] [phone] [place] [address] [place], [place] [id number] Scheduled Procedures Name Priority Associated Diagnoses Date/Ti me MANIPULATION SHOULDER Adhesive capsulitis of left shoulder 03/02/2024 12:27 PM OVEN UNLOADER INJECTION JOINT Adhesive capsulitis of left shoulder 03/02/2024 12:27 PM OVEN UNLOADER documented as of this encounter Visit Diagnoses Not on filedocumented in this encounter Additional Health Concerns Infection Onset Date Last Indicated Resolved Time COVID-19 Rule Out 10/17/2023 10/17/2023 10/17/2023 10:57 AM CDT COVID-19 Rule Out 12/29/2023 12/29/2023 12/29/2023 12:59 PM OVEN UNLOADER Assessment Noted Time PHQ-9 Depression Total Score: 5 03/18/19 2:22 PM OVEN UNLOADER documented as of this encounter Care Teams Stoneworking Sander Relationship Specialty Start Date End Date Marv Young NP PCP - General NURSE PRACTITIONER ADULT HEALTH 03/11/23 09/14/23 [place] [address] [address] PCP - General INTERNAL MEDICINE 09/15/23 09/15/23 [place] [address] [place] [address] PCP - General Physician Evaporator Medical 09/16/23 documented as of this encounter
--- OUTSIDE RECORDS SUMMARY | 2024-02-12 08:34 | XMS_ITS | Encounter Summary ---
Author Organization [facility] Address [facility] [place] [address] [place] [address] Care Team Providers Care Cable Layer Name Role Phone Marv Young NP Primary Care Provide r Brennon [place] MD Primary Care Provider [phone] Holger Soriano Primary Care Provider [phone] Encounter Details Date Type Department Care Team (Late Contact Info) Description 08/12/2023 Xcalia Message Enc [facility] Medical Group Family & Internal Medicine [facility] [address] [place] [address] [facility] Provider medications Social History Tobacco Use Types [...] (Late Contact Info) Description 02/12/2024 9:00 AM BOOM BOSS Appointment [facility] Outpatient Rehab [id number] [place] [address] [place] [address] [place] [address] [place] [address] [place] [address] 02/12/2024 2:00 PM BOOM BOSS Appointment [facility] MRI [address] [place] [address] [place] [address] [place] [address] 02/16/2024 9:00 AM BOOM BOSS Appointment [facility] Outpatient Rehab [address] [place] [address] [place] [address] [place] [address] [place] [address] [place] [address] 02/19/2024 8:45 AM BOOM BOSS Appointment [facility] Outpatient Rehab [address] [place] [address] [place] [address] [place] [address] [place] [address] [place] [address] 02/19/2024 9:00 AM BOOM BOSS Appointment [facility] Outpatient Rehab [address] [place] [address] [place] [address] [place] [address] [place] [address] [place] [address] 02/23/2024 9:00 AM BOOM BOSS Appointment [facility] Outpatient Rehab [address] [place] [address] [place] [address] [place] [address] [place] [address] [place] [address] 02/24/2024 1:30 PM BOOM BOSS Appointment [address] [address] Ihsan Logan, [address] [place] [address] 02/26/2024 9:00 AM BOOM BOSS Appointment [facility] Outpatient Rehab [address] [place] [address] [place] [address] [place] [address] [place] [address] [place] [address] 02/26/2024 9:15 AM BOOM BOSS Appointment [facility] Outpatient Rehab [address] [place] [address] [place] [address] [place] [address] [place] [address] [place] [address] 03/01/2024 9:00 AM BOOM BOSS Appointment [facility] Outpatient Rehab [address] [place] [address] [place] [address] [place] [address] [place] [address] [place] [address] Lorene Branch, ROUTE DRIVER COIN MACHINES 03/02/2024 12:27 PM BOOM BOSS Hospital Encounter [facility] [address] [place] [address] [place] [address] [place] [address] 03/02/2024 12:27 PM BOOM BOSS - 03/02/2024 1:07 PM BOOM BOSS Surgery [facility] Surgery [address] [place] [address] [place] [address] [place] [address] MANIPULATION SHOULDER 03/05/2024 9:00 AM BOOM BOSS Appointment [facility] Outpatient Rehab [address] [place] [address] [place] [address] [place] [address] Lorene Branch, ROUTE DRIVER COIN MACHINES 03/08/2024 9:00 AM BOOM BOSS Appointment [facility] Outpatient Rehab [address] [place] [address] [place] [address] [place] [address] Lorene Branch, ROUTE DRIVER COIN MACHINES 03/11/2024 9:15 AM BOOM BOSS Appointment [facility] Outpatient Rehab [address] [place] [address] [place] [address] [place] [address] Lorene Branch, ROUTE DRIVER COIN MACHINES 03/15/2024 9:00 AM BOOM BOSS Appointment [facility] Outpatient Rehab [address] [place] [address] [place] [address] [place] [address] Lorene Branch, ROUTE DRIVER COIN MACHINES 03/18/2024 9:15 AM BOOM BOSS Appointment [facility] Outpatient Rehab [address] [place] [address] [place] [address] [place] [address] Lorene Branch, ROUTE DRIVER COIN MACHINES 03/22/2024 9:00 AM BOOM BOSS Appointment [facility] Outpatient Rehab [address] [place] [address] [place] [address] [place] [address] Lorene Branch, ROUTE DRIVER COIN MACHINES 03/25/2024 9:15 AM BOOM BOSS Appointment [facility] Outpatient Rehab [address] [place] [address] [place] [address] [place] [address] Lorene Branch, ROUTE DRIVER COIN MACHINES 04/21/2024 11:20 AM BOOM BOSS Office Visit [facility] Medical Group Family & Internal Medicine [facility] [address] [place] [address] [place] [address] [place] [address] Scheduled Procedures Name Priority Associated Diagnoses Date/Ti me MANIPULATION SHOULDER Adhesive capsulitis of left shoulder 03/02/2024 12:27 PM BOOM BOSS INJECTION JOINT Adhesive capsulitis of left shoulder 03/02/2024 12:27 PM BOOM BOSS documented as of this encounter Visit Diagnoses Not on filedocumented in this encounter Additional Health Concerns Infection Onset Date Last Indicated Resolved Time COVID-19 Rule Out 10/17/2023 10/17/2023 10/17/2023 10:57 AM CDT COVID-19 Rule Out 12/29/2023 12/29/2023 12/29/2023 12:59 PM BOOM BOSS Assessment Noted Time PHQ-9 Depression Total Score: 5 03/18/19 2:22 PM BOOM BOSS documented as of this encounter Care Teams Cable Layer Relationship Specialty Start Date End Date Marv Young NP PCP - General NURSE PRACTITIONER ADULT HEALTH 03/11/23 09/14/23 [place] [address] [facility] [address] [place] [address] PCP - General INTERNAL MEDICINE 09/15/23 09/15/23 [place] [address] [place] [address] PCP - General Physician Nurse Practitioner Physician Assistant Medical 09/16/23 documented as of this encounter
--- OUTSIDE RECORDS SUMMARY | 2024-02-12 08:34 | XMS_ITS | Encounter Summary ---
Author Organization [facility] Address [facility]6 [facility]. [place], [place] [address] [place] [address] Care Team Providers Care Braider Setter Name Role Phone Brennon Flores MD Primary Care Provider [phone] Holger Soriano Primary Care Provider Encounter Details Date Type Department Care Team (Late Contact Info) Description 09/15/2023 JFDI.Asia Message Enc [facility] Medical Group Family & Internal Medicine [facility] [address] [place] [address] Kayla, [facility] Provider Rescedule appt Social History Tobacco Use [...] st Contact Info) Description 02/12/2024 9:00 AM LASTER HAND Appointment [facility] Outpatient Rehab [address] [place] [address] [place] [address] [place] [address] [place] [address] [place] [address] 02/12/2024 2:00 PM LASTER HAND Appointment [facility] MRI [address] [place] [address] [place] [address] [place] [address] 02/16/2024 9:00 AM LASTER HAND Appointment [facility] Outpatient Rehab [address] [place] [address] [place] [address] [place] [address] [place] [address] [place] [address] 02/19/2024 8:45 AM LASTER HAND Appointment [facility] Outpatient Rehab [address] [place] [address] [place] [address] [place] [address] [place] [address] [place] [address] 02/19/2024 9:00 AM LASTER HAND Appointment [facility] Outpatient Rehab [address] [place] [address] [place] [address] [place] [address] [place] [address] [place] [address] 02/23/2024 9:00 AM LASTER HAND Appointment [facility] Outpatient Rehab [address] [place] [address] [place] [address] [place] [address] [place] [address] [place] [address] 02/24/2024 1:30 PM LASTER HAND Appointment [address] [address] [place] [address] [place] [address] 02/26/2024 9:00 AM LASTER HAND Appointment [facility] Outpatient Rehab [address] [place] [address] [place] [address] [place] [address] [place] [address] [place] [address] 02/26/2024 9:15 AM LASTER HAND Appointment [facility] Outpatient Rehab [address] [place] [address] [place] [address] [place] [address] [place] [address] [place] [address] 03/01/2024 9:00 AM LASTER HAND Appointment [facility] Outpatient Rehab [address] [place] [address] [place] [address] [place] [address] [place] [address] [place] [address] Lorene Branch, RN NICU 03/02/2024 12:27 PM LASTER HAND Hospital Encounter [facility] Surgery [address] [place] [address] [place] [address] [place] [address] 03/02/2024 12:27 PM LASTER HAND - 03/02/2024 1:07 PM LASTER HAND Surgery [facility] Surgery [address] [place] [address] [place] [address] [place] [address] MANIPULATION SHOULDER 03/05/2024 9:00 AM LASTER HAND Appointment [facility] Outpatient Rehab [address] [place] [address] [place] [address] [place] [address] Lorene Branch, RN NICU 03/08/2024 9:00 AM LASTER HAND Appointment [facility] Outpatient Rehab [address] [place] [address] [place] [address] [place] [address] Lorene Branch, RN NICU 03/11/2024 9:15 AM LASTER HAND Appointment [facility] Outpatient Rehab [address] [place] [address] [place] [address] [place] [address] Lorene Branch, RN NICU 03/15/2024 9:00 AM LASTER HAND Appointment [facility] Outpatient Rehab [address] [place] [address] [place] [address] [place] [address] Lorene Branch, RN NICU 03/18/2024 9:15 AM LASTER HAND Appointment [facility] Outpatient Rehab [address] [place] [address] [place] [address] [place] [address] Lorene Branch, RN NICU 03/22/2024 9:00 AM LASTER HAND Appointment [facility] Outpatient Rehab [address] [place] [address] [place] [address] [place] [address] Lorene Branch, RN NICU 03/25/2024 9:15 AM LASTER HAND Appointment [facility] Outpatient Rehab [address] [place] [address] [place] [address] [place] [address] Lorene Branch, RN NICU 04/21/2024 11:20 AM LASTER HAND Office Visit [facility] Medical Group Family & Internal Medicine [facility] [address] [place] [address] [place] [address] [place] [address] Scheduled Procedures Name Priority Associated Diagnoses Date/Ti me MANIPULATION SHOULDER Adhesive capsulitis of left shoulder 03/02/2024 12:27 PM LASTER HAND INJECTION JOINT Adhesive capsulitis of left shoulder 03/02/2024 12:27 PM LASTER HAND documented as of this encounter Visit Diagnoses Not on filedocumented in this encounter Additional Health Concerns Infection Onset Date Last Indicated Resolved Time COVID-19 Rule Out 10/17/2023 10/17/2023 10/17/2023 10:57 AM CDT COVID-19 Rule Out 12/29/2023 12/29/2023 12/29/2023 12:59 PM LASTER HAND Assessment Noted Time PHQ-9 Depression Total Score: 5 03/18/19 2:22 PM LASTER HAND documented as of this encounter Care Teams Braider Setter Relationship Specialty Start Date End Date Brennon Flores [place] [id number] [place] [address] PCP - General INTERNAL MEDICINE 09/15/23 09/15/23 [place] [address] [place] [address] PCP - General Physician Pathology Laboratory Director Medical 09/16/23 documented as of this encounter
--- OUTSIDE RECORDS SUMMARY | 2024-02-12 08:35 | XMS_ITS | Encounter Summary ---
Author Organization [facility] Address [facility]6 [facility] [place] [address] [place] [address] Care Team Providers Care Certified Pest Control Technician Name Role Phone Marv Young NP [...] AM HIGH SCHOOL LEARNING SUPPORT TEACHER Appointment [facility] Outpatient Rehab [address] [place] [address] [place] [address] [place] [address] [place] [address] [place] [address] 02/12/2024 2:00 PM HIGH SCHOOL LEARNING SUPPORT TEACHER Appointment [facility] MRI [address] [place] [address] [place] [address] [place] [address] 02/16/2024 9:00 AM HIGH SCHOOL LEARNING SUPPORT TEACHER Appointment [facility] Outpatient Rehab [address] [place] [address] [place] [address] [place] [address] [place] [address] [place] [address] 02/19/2024 8:45 AM HIGH SCHOOL LEARNING SUPPORT TEACHER Appointment [facility] Outpatient Rehab [address] [place] [address] [place] [address] [place] [address] [place] [address] [place] [address] 02/19/2024 9:00 AM HIGH SCHOOL LEARNING SUPPORT TEACHER Appointment [facility] Outpatient Rehab [address] [place] [address] [place] [address] [place] [address] [place] [address] [place] [address] 02/23/2024 9:00 AM HIGH SCHOOL LEARNING SUPPORT TEACHER Appointment [facility] Outpatient Rehab [address] [place] [address] [place] [address] [place] [address] [place] [address] [place] [address] 02/24/2024 1:30 PM HIGH SCHOOL LEARNING SUPPORT TEACHER Appointment [facility] [address] [place] [address] [place] [address] [place] [address] 02/26/2024 9:00 AM HIGH SCHOOL LEARNING SUPPORT TEACHER Appointment [facility] Outpatient Rehab [address] [place] [address] [place] [address] [place] [address] [place] [address] [place] [address] 02/26/2024 9:15 AM HIGH SCHOOL LEARNING SUPPORT TEACHER Appointment [facility] Outpatient Rehab [address] [place] [address] [place] [address] [place] [address] [place] [address] [place] [address] 03/01/2024 9:00 AM HIGH SCHOOL LEARNING SUPPORT TEACHER Appointment [facility] Outpatient Rehab [address] [place] [address] [place] [address] [place] [address] [place] [address] [place] [address] Lorene Branch, MIGRATORY GAME BIRD BIOLOGIST 03/02/2024 12:27 PM HIGH SCHOOL LEARNING SUPPORT TEACHER Hospital Encounter [facility] Surgery [id number] [place] [address] [place] [address] [place] [address] 03/02/2024 12:27 PM HIGH SCHOOL LEARNING SUPPORT TEACHER - 03/02/2024 1:07 PM HIGH SCHOOL LEARNING SUPPORT TEACHER Surgery [address] [address] [place] [address] [place] [address] MANIPULATION SHOULDER 03/05/2024 9:00 AM HIGH SCHOOL LEARNING SUPPORT TEACHER Appointment [facility] Outpatient Rehab [address] [place] [address] [place] [address] [place] [address] Lorene Branch, MIGRATORY GAME BIRD BIOLOGIST 03/08/2024 9:00 AM HIGH SCHOOL LEARNING SUPPORT TEACHER Appointment [facility] Outpatient Rehab [address] [place] [address] [place] [address] [place] [address] Lorene Branch, MIGRATORY GAME BIRD BIOLOGIST 03/11/2024 9:15 AM HIGH SCHOOL LEARNING SUPPORT TEACHER Appointment [facility] Outpatient Rehab [address] [place] [address] [place] [address] [place] [address] Lorene Branch, MIGRATORY GAME BIRD BIOLOGIST 03/15/2024 9:00 AM HIGH SCHOOL LEARNING SUPPORT TEACHER Appointment [facility] [address] [place] [address] [place] [address] [place] [address] Lorene Branch, MIGRATORY GAME BIRD BIOLOGIST 03/18/2024 9:15 AM HIGH SCHOOL LEARNING SUPPORT TEACHER Appointment [facility] [address] [place] [address] [place] [address] [place] [address] Lorene Branch, MIGRATORY GAME BIRD BIOLOGIST 03/22/2024 9:00 AM HIGH SCHOOL LEARNING SUPPORT TEACHER Appointment [facility] [address] [place] [address] [place] [address] [place] [address] Lorene Branch, MIGRATORY GAME BIRD BIOLOGIST 03/25/2024 9:15 AM HIGH SCHOOL LEARNING SUPPORT TEACHER Appointment [facility] [address] [place] [address] [place] [address] [place] [address] Lorene Branch, MIGRATORY GAME BIRD BIOLOGIST 04/21/2024 11:20 AM HIGH SCHOOL LEARNING SUPPORT TEACHER Office Visit [facility] Medical Group Family & Internal Medicine - [place] [address] [place] [address] [place] [address] [place] [address] Scheduled Procedures Name Priority Associated Diagnoses Date/Ti [...] Depression Total Score: 5 03/18/19 2:22 PM HIGH SCHOOL LEARNING SUPPORT TEACHER documented as of this encounter Care Teams Certified Pest Control Technician Relationship Specialty Start Date End Date Marv Young NP PCP - General NURSE PRACTITIONER ADULT HEALTH 03/11/23 09/14/23 documented as of this encounter
--- OUTSIDE RECORDS SUMMARY | 2024-02-12 08:35 | XMS_ITS | Encounter Summary ---
Author Organization [facility] Address [facility] [address] [place] [address] Care Team Providers Care Beam Builder Name Role Phone Marv Young NP Primary [...] Expiration Date Visits Re quested Visits Authorized [id number] Closed 07/07/2023 08/05/2024 1 1 Reason for [...] V Marv Young, GRACE Phone: tel: fax: [facility] Medical Group Orthopedic Surgery [facility] [address] [facility] [address] [place] [address] Phone: tel: fax: Referral ID Status Reason Start Date Expiration Date Visits Requested Visits Authorized [id number] Authorized Specialty Services 07/05/2024 99 99 Encounter Details Date Type Department Care Team (Late st Contact Info) Description 07/07/2023 3:00 PM CDT Office Visit [facility] Medical Group Orthopedic Surgery - [place] [address] [place], [place] [id number] [place] [address] [place] [address] Shoulder Pain (Left Shoulder/Arm Pain) Social History [...] imaging. 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 No pertinent surgical history. [...] Portions of this note were dictated using [employer] speech recognition software. Occasional wrong wordor sound-alike substitutions may have occurred due to the inherent limitations of voice recognition software. Please read the chart carefully and recognize, using context, where the substitutions may have occurred. documented in this encounter Plan of Treatment Upcoming Encounters Date Type Department Care Team (Late st Contact Info) Description 02/12/2024 9:00 AM GLOBAL SALES EXECUTIVE Appointment [facility] Outpatient Rehab [address] [place] [address] [place] [address] [place] [address] [place] [address] [place] [address] 02/12/2024 2:00 PM GLOBAL SALES EXECUTIVE Appointment [facility] MRI [address] [place] [address] [place] [address] [place] [address] 02/16/2024 9:00 AM GLOBAL SALES EXECUTIVE Appointment [facility] Outpatient Rehab [address] [place] [address] [place] [address] [place] [address] [place] [address] [place] [address] 02/19/2024 8:45 AM GLOBAL SALES EXECUTIVE Appointment [facility] Outpatient Rehab [address] [place] [address] [place] [address] [place] [address] [place] [address] [place] [address] 02/19/2024 9:00 AM GLOBAL SALES EXECUTIVE Appointment [facility] Outpatient Rehab [address] [place] [address] [place] [address] [place] [address] [place] [address] [place] [address] 02/23/2024 9:00 AM GLOBAL SALES EXECUTIVE Appointment [facility] Outpatient Rehab [address] [place] [address] [place] [address] [place] [address] [place] [address] [place] [address] 02/24/2024 1:30 PM GLOBAL SALES EXECUTIVE Appointment [facility] [address] [place] [address] [place] [address] [place] [address] 02/26/2024 9:00 AM GLOBAL SALES EXECUTIVE Appointment [facility] Outpatient Rehab [address] [place] [address] [place] [address] [place] [address] [place] [address] [place] [address] 02/26/2024 9:15 AM GLOBAL SALES EXECUTIVE Appointment [facility] Outpatient Rehab [address] [place] [address] [place] [address] [place] [address] [place] [address] [place] [address] 03/01/2024 9:00 AM GLOBAL SALES EXECUTIVE Appointment [facility] Outpatient Rehab [address] [place] [address] [place] [address] [place] [address] [place] [address] [place], [place] [id number] Lorene Branch, CARPET INSTALLER 03/02/2024 12:27 PM GLOBAL SALES EXECUTIVE Hospital Encounter [facility] Surgery [address] [place] [address] [place] [address] [place] [address] 03/02/2024 12:27 PM GLOBAL SALES EXECUTIVE - 03/02/2024 1:07 PM GLOBAL SALES EXECUTIVE Surgery [facility] Surgery [address] [place] [address] [place] [address] [place] [address] MANIPULATION SHOULDER 03/05/2024 9:00 AM GLOBAL SALES EXECUTIVE Appointment [facility] Outpatient Rehab [address] [place] [address] [place] [address] [place], [place] [phone] Lorene Branch, CARPET INSTALLER 03/08/2024 9:00 AM GLOBAL SALES EXECUTIVE Appointment [facility] Outpatient Rehab [address] [place] [address] [place] [address] [place] [address] Lorene Branch, CARPET INSTALLER 03/11/2024 9:15 AM GLOBAL SALES EXECUTIVE Appointment [facility] Outpatient Rehab [address] [place] [address] [place] [address] [place] [address] Lorene Branch, CARPET INSTALLER 03/15/2024 9:00 AM GLOBAL SALES EXECUTIVE Appointment [facility] Outpatient Rehab [address] [place] [address] [place] [address] [place] [address] Lorene Branch, CARPET INSTALLER 03/18/2024 9:15 AM GLOBAL SALES EXECUTIVE Appointment [facility] Outpatient Rehab [address] [place] [address] [place] [address] [place] [address] Lorene Branch, CARPET INSTALLER 03/22/2024 9:00 AM GLOBAL SALES EXECUTIVE Appointment [facility] Outpatient Rehab [address] [place] [address] [place] [address] [place] [address] Lorene Branch, CARPET INSTALLER 03/25/2024 9:15 AM GLOBAL SALES EXECUTIVE Appointment [facility] Outpatient Rehab [address] [place] [address] [place] [address] [place], [place] [id number] Lorene Branch, CARPET INSTALLER 04/21/2024 11:20 AM GLOBAL SALES EXECUTIVE Office Visit [facility] Medical Group Family & Internal Medicine - [place] [address] [place] [address] [place] [address] [place] [address] Scheduled Procedures Name Priority Associated Diagnoses Date/Ti me MANIPULATION SHOULDER Adhesive capsulitis of left shoulder 03/02/2024 12:27 PM GLOBAL SALES EXECUTIVE INJECTION JOINT Adhesive capsulitis of left shoulder 03/02/2024 12:27 PM GLOBAL SALES EXECUTIVE documented as of this encounter Results * [...] 3:45 PM Narrative 12/10/2023 3:48 PM CDT [facility] [address] [place] [address] EXAMINATION:MRI of the cervical spine without contrast [...] Procedure Note Morgan Borjas MD - 12/10/2023 [facility] [address] [facility] [place] [address] EXAMINATION:MRI of the cervical spine without contrast [...] Total Score: 5 03/18/19 24 2:22 PM GLOBAL SALES EXECUTIVE documented as of this encounter Care Teams Beam Builder Relationship Specialty Start Date End Date Marv Young NP PCP - General NURSE PRACTITIONER ADULT HEALTH 03/11/23 09/14/23 documented as of this encounter
--- OUTSIDE RECORDS SUMMARY | 2024-02-12 08:36 | XMS_ITS | Encounter Summary ---
Author Organization [facility] Address [facility] [place] [address] [place] [address] Care Team Providers Care Nurse Paralegal Name Role Phone Marv Young NP Primary [...] st Contact Info) Description 02/12/2024 9:00 AM INFORMATION ANALYST Appointment [facility] Outpatient Rehab [address] [place] [address] [place] [address] [place] [address] [place] [address] [place] [address] 02/12/2024 2:00 PM INFORMATION ANALYST Appointment [facility] MRI [address] [place] [address] [place] [address] [place] [address] 02/16/2024 9:00 AM INFORMATION ANALYST Appointment [facility] Outpatient Rehab [address] [place] [address] [place] [address] [place] [address] [place] [address] [place] [address] 02/19/2024 8:45 AM INFORMATION ANALYST Appointment [facility] Outpatient Rehab [address] [place] [address] [place] [address] [place] [address] [place] [address] [place] [address] 02/19/2024 9:00 AM INFORMATION ANALYST Appointment [facility] Outpatient Rehab [address] [place] [address] [place] [address] [place] [address] [place] [address] [place] [address] 02/23/2024 9:00 AM INFORMATION ANALYST Appointment [facility] Outpatient Rehab [address] [place] [address] [place] [address] [place] [address] [place] [address] [place] [address] 02/24/2024 1:30 PM INFORMATION ANALYST Appointment [facility] [address] [place] [address] [place] [address] [place] [address] 02/26/2024 9:00 AM INFORMATION ANALYST Appointment [facility] Outpatient Rehab [address] [place] [address] [place] [address] [place] [address] [place] [address] [place] [address] 02/26/2024 9:15 AM INFORMATION ANALYST Appointment [facility] Outpatient Rehab [address] [place] [address] [place] [address] [place] [address] [place] [address] [place] [address] 03/01/2024 9:00 AM INFORMATION ANALYST Appointment [facility] Outpatient Rehab [address] [place] [address] [place] [address] [place] [address] [place] [address] [place] [address] Lorene Branch, CERTIFED REFRIGERATION OPERATOR 03/02/2024 12:27 PM INFORMATION ANALYST Hospital Encounter [facility] Surgery [id number] [place] [address] [place] [address] [place] [address] 03/02/2024 12:27 PM INFORMATION ANALYST - 03/02/2024 1:07 PM INFORMATION ANALYST Surgery [address] [address] [place] [address] [place] [address] MANIPULATION SHOULDER 03/05/2024 9:00 AM INFORMATION ANALYST Appointment [facility] Outpatient Rehab [address] [place] [address] [place] [address] [place] [address] Lorene Branch, CERTIFED REFRIGERATION OPERATOR 03/08/2024 9:00 AM INFORMATION ANALYST Appointment [facility] Outpatient Rehab [address] [place] [address] [place] [address] [place] [address] Lorene Branch, CERTIFED REFRIGERATION OPERATOR 03/11/2024 9:15 AM INFORMATION ANALYST Appointment [facility] Outpatient Rehab [address] [place] [address] [place] [address] [place] [address] Lorene Branch, CERTIFED REFRIGERATION OPERATOR 03/15/2024 9:00 AM INFORMATION ANALYST Appointment [facility] [address] [place] [address] [place] [address] [place] [address] Lorene Branch, CERTIFED REFRIGERATION OPERATOR 03/18/2024 9:15 AM INFORMATION ANALYST Appointment [facility] [address] [place] [address] [place] [address] [place] [address] Lorene Branch, CERTIFED REFRIGERATION OPERATOR 03/22/2024 9:00 AM INFORMATION ANALYST Appointment [facility] [address] [place] [address] [place] [address] [place] [address] Lorene Branch, CERTIFED REFRIGERATION OPERATOR 03/25/2024 9:15 AM INFORMATION ANALYST Appointment [facility] [address] [place] [address] [place] [address] [place] [address] Lorene Branch, CERTIFED REFRIGERATION OPERATOR 04/21/2024 11:20 AM INFORMATION ANALYST Office Visit [facility] Medical Group Family & Internal Medicine - [place] [address] [place] [address] [place] [address] [place] [address] Scheduled Procedures Name Priority Associated Diagnoses Date/Ti me MANIPULATION SHOULDER Adhesive capsulitis of left shoulder 03/02/2024 12:27 PM INFORMATION ANALYST INJECTION JOINT Adhesive capsulitis of left shoulder 03/02/2024 12:27 PM INFORMATION ANALYST documented as of this encounter Visit Diagnoses Not on filedocumented in this encounter Additional Health Concerns Assessment Noted Time PHQ-9 Depression Total Score: 5 03/18/19 2:22 PM INFORMATION ANALYST documented as of this encounter Care Teams Nurse Paralegal Relationship Specialty Start Date End Date Marv Young NP PCP - General NURSE PRACTITIONER ADULT HEALTH 03/11/23 09/14/23 documented as of this encounter
--- OUTSIDE RECORDS SUMMARY | 2024-02-12 08:36 | XMS_ITS | Encounter Summary ---
Author Organization [facility] Address [facility] [place] [address] [place] [address] Care Team Providers Care Party Plan Sales Agent Name Role Phone Marv Young NP Primary [...] st Contact Info) Description 02/12/2024 9:00 AM KNOCK UP ASSEMBLER Appointment [facility] Outpatient Rehab [address] [place] [address] [place] [address] [place] [address] [place] [address] [place] [address] 02/12/2024 2:00 PM KNOCK UP ASSEMBLER Appointment [facility] MRI [address] [place] [address] [place] [address] [place] [address] 02/16/2024 9:00 AM KNOCK UP ASSEMBLER Appointment [facility] Outpatient Rehab [address] [place] [address] [place] [address] [place] [address] [place] [address] [place] [address] 02/19/2024 8:45 AM KNOCK UP ASSEMBLER Appointment [facility] Outpatient Rehab [address] [place] [address] [place] [address] [place] [address] [place] [address] [place] [address] 02/19/2024 9:00 AM KNOCK UP ASSEMBLER Appointment [facility] Outpatient Rehab [address] [place] [address] [place] [address] [place] [address] [place] [address] [place] [address] 02/23/2024 9:00 AM KNOCK UP ASSEMBLER Appointment [facility] Outpatient Rehab [address] [place] [address] [place] [address] [place] [address] [place] [address] [place] [address] 02/24/2024 1:30 PM KNOCK UP ASSEMBLER Appointment [facility] [address] [place] [address] [place] [address] [place] [address] 02/26/2024 9:00 AM KNOCK UP ASSEMBLER Appointment [facility] Outpatient Rehab [address] [place] [address] [place] [address] [place] [address] [place] [address] [place] [address] 02/26/2024 9:15 AM KNOCK UP ASSEMBLER Appointment [facility] Outpatient Rehab [address] [place] [address] [place] [address] [place] [address] [place] [address] [place] [address] 03/01/2024 9:00 AM KNOCK UP ASSEMBLER Appointment [facility] Outpatient Rehab [address] [place] [address] [place] [address] [place] [address] [place] [address] [place] [address] Lorene Branch, HR ASSOCIATE 03/02/2024 12:27 PM KNOCK UP ASSEMBLER Hospital Encounter [facility] Surgery [address] [place] [address] [place] [address] [place] [address] 03/02/2024 12:27 PM KNOCK UP ASSEMBLER - 03/02/2024 1:07 PM KNOCK UP ASSEMBLER Surgery [address] [address] [place] [address] [place] [address] MANIPULATION SHOULDER 03/05/2024 9:00 AM KNOCK UP ASSEMBLER Appointment [facility] Outpatient Rehab [address] [place] [address] [place] [address] [place] [address] Lorene Branch, HR ASSOCIATE 03/08/2024 9:00 AM KNOCK UP ASSEMBLER Appointment [facility] Outpatient Rehab [address] [place] [address] [place] [address] [place] [address] Lorene Branch, HR ASSOCIATE 03/11/2024 9:15 AM KNOCK UP ASSEMBLER Appointment [facility] Outpatient Rehab [address] [place] [address] [place] [address] [place] [address] Lorene Branch, HR ASSOCIATE 03/15/2024 9:00 AM KNOCK UP ASSEMBLER Appointment [facility] [address] [place] [address] [place] [address] [place] [address] Lorene Branch, HR ASSOCIATE 03/18/2024 9:15 AM KNOCK UP ASSEMBLER Appointment [facility] [address] [place] [address] [place] [address] [place] [address] Lorene Branch, HR ASSOCIATE 03/22/2024 9:00 AM KNOCK UP ASSEMBLER Appointment [facility] [address] [place] [address] [place] [address] [place] [address] Lorene Branch, HR ASSOCIATE 03/25/2024 9:15 AM KNOCK UP ASSEMBLER Appointment [facility] [address] [place] [address] [place] [address] [place] [address] Lorene Branch, HR ASSOCIATE 04/21/2024 11:20 AM KNOCK UP ASSEMBLER Office Visit [facility] Medical Group Family & Internal Medicine - [place] [address] [place] [address] [place] [address] [place] [address] Scheduled Procedures Name Priority Associated Diagnoses Date/Ti me MANIPULATION SHOULDER Adhesive capsulitis of left shoulder 03/02/2024 12:27 PM KNOCK UP ASSEMBLER INJECTION JOINT Adhesive capsulitis of left shoulder 03/02/2024 12:27 PM KNOCK UP ASSEMBLER documented as of this encounter Visit Diagnoses Not on filedocumented in this encounter Additional Health Concerns Assessment Noted Time PHQ-9 Depression Total Score: 5 03/18/19 2:22 PM KNOCK UP ASSEMBLER documented as of this encounter Care Teams Party Plan Sales Agent Relationship Specialty Start Date End Date Marv Young NP PCP - General NURSE PRACTITIONER ADULT HEALTH 03/11/23 09/14/23 documented as of this encounter
--- OUTSIDE RECORDS SUMMARY | 2024-02-12 08:36 | XMS_ITS | Encounter Summary ---
Author Organization [facility] Address [facility] [place] [address] [place] [address] Care Team Providers Care Vehicle Controls Engineer Name Role Phone Marv Young NP Primary Care Provide r Encounter Details Date Type Department Care Team (Late st Contact Info) Description 06/09/2023 Orders Only [facility] Medical Group Family & Internal Medicine [address] [address] Marv Young NP [address] [facility] [place] [address] Social History Tobacco Use Types [...] per patient [facility] [place]. documented in this encounter Plan of Treatment Upcoming Encounters Date Type Department Care Team (Late st [facility] Info) Description 02/12/2024 9:00 AM VP SCIENTIFIC AFFAIRS Appointment [facility] Outpatient Rehab [address] [place] [address] [place] [address] [place] [address] [place] [address] [place] [address] 02/12/2024 2:00 PM VP SCIENTIFIC AFFAIRS Appointment [facility] MRI [address] [place] [address] [place] [address] [place] [address] 02/16/2024 9:00 AM VP SCIENTIFIC AFFAIRS Appointment [facility] Outpatient Rehab [address] [place] [address] [place] [address] [place] [address] [place] [address] [place] [address] 02/19/2024 8:45 AM VP SCIENTIFIC AFFAIRS Appointment [facility] Outpatient Rehab [address] [place] [address] [place] [address] [place] [address] [place] [address] [place] [address] 02/19/2024 9:00 AM VP SCIENTIFIC AFFAIRS Appointment [facility] Outpatient Rehab [address] [place] [address] [place] [address] [place] [address] [place] [address] [place] [address] 02/23/2024 9:00 AM VP SCIENTIFIC AFFAIRS Appointment [facility] Outpatient Rehab [address] [place] [address] [place] [address] [place] [address] [place] [address] [place] [address] 02/24/2024 1:30 PM VP SCIENTIFIC AFFAIRS Appointment [facility] [address] [place] [address] Ihsan Logan, [address] [place] [address] 02/26/2024 9:00 AM VP SCIENTIFIC AFFAIRS Appointment [facility] Outpatient Rehab [address] [place] [address] [place] [address] [place] [address] [place] [address] [place] [address] 02/26/2024 9:15 AM VP SCIENTIFIC AFFAIRS Appointment [facility] Outpatient Rehab [address] [place] [address] [place] [address] [place] [address] [place] [address] [place] [address] 03/01/2024 9:00 AM VP SCIENTIFIC AFFAIRS Appointment [facility] Outpatient Rehab [address] [place] [address] [place] [address] [place] [address] [place] [address] [place] [address] Lorene Branch, GO CART MECHANIC 03/02/2024 12:27 PM VP SCIENTIFIC AFFAIRS Hospital Encounter [facility] Surgery [address] [place] [address] [place] [address] [place] [address] 03/02/2024 12:27 PM VP SCIENTIFIC AFFAIRS - 03/02/2024 1:07 PM VP SCIENTIFIC AFFAIRS Surgery [facility] Surgery [address] [place] [address] [place] [address] [place] [address] MANIPULATION SHOULDER 03/05/2024 9:00 AM VP SCIENTIFIC AFFAIRS Appointment [facility] Outpatient Rehab [address] [place] [address] [place] [address] [place] [address] Lorene Branch, GO CART MECHANIC 03/08/2024 9:00 AM VP SCIENTIFIC AFFAIRS Appointment [facility] Outpatient Rehab [address] [place] [address] [place] [address] [place] [address] Lorene Branch, GO CART MECHANIC 03/11/2024 9:15 AM VP SCIENTIFIC AFFAIRS Appointment [facility] Outpatient Rehab [address] [place] [address] [place] [address] [place] [address] Lorene Branch, GO CART MECHANIC 03/15/2024 9:00 AM VP SCIENTIFIC AFFAIRS Appointment [facility] Outpatient Rehab [address] [place] [address] [place] [address] [place] [address] Lorene Branch, GO CART MECHANIC 03/18/2024 9:15 AM VP SCIENTIFIC AFFAIRS Appointment [facility] Outpatient Rehab [address] [place] [address] [place] [address] [place] [address] Lorene Branch, GO CART MECHANIC 03/22/2024 9:00 AM VP SCIENTIFIC AFFAIRS Appointment [facility] Outpatient Rehab [address] [place] [address] [place] [address] [place] [address] Lorene Branch, GO CART MECHANIC 03/25/2024 9:15 AM VP SCIENTIFIC AFFAIRS Appointment [facility] Outpatient Rehab [address] [place] [address] [place] [address] [place] [address] Lorene Branch, GO CART MECHANIC 04/21/2024 11:20 AM VP SCIENTIFIC AFFAIRS Office Visit [facility] Medical Group Family & Internal Medicine [facility] [address] [place] [address] [place] [address] [place] [address] Scheduled Procedures Name Priority Associated Diagnoses Date/Ti me MANIPULATION SHOULDER Adhesive capsulitis of left shoulder 03/02/2024 12:27 PM VP SCIENTIFIC AFFAIRS INJECTION JOINT Adhesive capsulitis of left shoulder 03/02/2024 12:27 PM VP SCIENTIFIC AFFAIRS documented as of this encounter Visit Diagnoses Diagnosis Tendinopathy of left biceps tendon Muscle strain of left upper arm, sequela Adhesive capsulitis of left shoulder Adhesive capsulitis of shoulder documented in this encounter Additional Health Concerns Assessment Noted Time PHQ-9 Depression Total Score: 5 03/18/19 2:22 PM VP SCIENTIFIC AFFAIRS documented as of this encounter Care Teams Vehicle Controls Engineer Relationship Specialty Start Date End Date Marv Young NP PCP - General NURSE PRACTITIONER ADULT HEALTH 03/11/23 09/14/23 documented as of this encounter
--- OUTSIDE RECORDS SUMMARY | 2024-02-12 08:36 | XMS_ITS | Encounter Summary ---
Author Organization [facility] Address Critical access hospital[facility] [place] [address] [place] [address] Care Team Providers Care Call Center Nurse Name Role Phone Marv Young FIRE CONTROL OFFICER Primary Care Provide r Reason for Referral * Imaging (Urgent) - Closed Specialty Diagnoses / Procedures Referred By Shmuel angel Referred To Contact RADIOLOGY Diagnoses Acute pain of left shoulder Procedures [place] [address] [place] [address] Phone: tel: fax: Referral ID Status Reason Start Date Expiration Date Visits Re quested Visits Authorized [id number] Closed 06/11/2023 07/10/2024 1 1 Reason for Visit * Imaging (Urgent) - Closed Specialty Diagnoses / Procedures Referred By Contac jeanne Referred To Contact RADIOLOGY Diagnoses Acute pain of left shoulder Procedures MRI [place] [address] [place] [address] Phone: tel: fax: Referral ID Status Reason Start Date Expiration Date Visits Re quested Visits Authorized [id number] Closed 06/11/2023 07/10/2024 1 1 Encounter Details Date Type Department Care Team (Latest Contact Info) Description 06/18/2023 10:11 AM CDT - 06/18/2023 11:59 PM CDT Hospital [facility] [address] [place] [address] Negrita Soriano, TYLER [address] [place] [address] Discharge Disposition: Home or Self Care (Routine [...] st Contact Info) Description 02/12/2024 9:00 AM R&D ENGINEER Appointment [facility] Outpatient Rehab [address] [place] [address] [place] [address] [place] [address] [place] [address] [place] [address] 02/12/2024 2:00 PM R&D ENGINEER Appointment [facility] MRI [address] [place] [address] [place] [address] [place] [address] 02/16/2024 9:00 AM R&D ENGINEER Appointment [facility] Outpatient Rehab [address] [place] [address] [place] [address] [place] [address] [place] [address] [place] [address] 02/19/2024 8:45 AM R&D ENGINEER Appointment [facility] Outpatient Rehab [address] [place] [address] [place] [address] [place] [address] [place] [address] [place] [address] 02/19/2024 9:00 AM R&D ENGINEER Appointment [facility] Outpatient Rehab [address] [place] [address] [place] [address] [place] [address] [place] [address] [place] [address] 02/23/2024 9:00 AM R&D ENGINEER Appointment [facility] Outpatient Rehab [address] [place] [address] [place] [address] [place] [address] [place] [address] [place] [address] 02/24/2024 1:30 PM R&D ENGINEER Appointment [facility] MRI [address] [place] [address] Ihsan Logan, [address] [place] [address] 02/26/2024 9:00 AM R&D ENGINEER Appointment [facility] Outpatient Rehab [address] [place] [address] [place] [address] [place] [address] [place] [address] [place] [address] 02/26/2024 9:15 AM R&D ENGINEER Appointment [facility] Outpatient Rehab [address] [place] [address] [place] [address] [place] [address] [place] [address] [place] [address] 03/01/2024 9:00 AM R&D ENGINEER Appointment [facility] Outpatient Rehab [address] [place] [address] [place] [address] [place] [address] [place] [address] [place] [address] Lorene Branch, FORENSICS TEAM DIRECTOR 03/02/2024 12:27 PM R&D ENGINEER Hospital Encounter [facility] Surgery [address] [place] [address] [place] [address] [place] [address] 03/02/2024 12:27 PM R&D ENGINEER - 03/02/2024 1:07 PM R&D ENGINEER Surgery [facility] Surgery [address] [place] [address] [place] [address] [place] [address] MANIPULATION SHOULDER 03/05/2024 9:00 AM R&D ENGINEER Appointment [facility] Outpatient Rehab [address] [place] [address] [place] [address] [place] [address] Lorene Branch, FORENSICS TEAM DIRECTOR 03/08/2024 9:00 AM R&D ENGINEER Appointment [facility] Outpatient Rehab [address] [place] [address] [place] [address] [place] [address] Lorene Branch, FORENSICS TEAM DIRECTOR 03/11/2024 9:15 AM R&D ENGINEER Appointment [facility] Outpatient Rehab [address] [place] [address] [place] [address] [place] [address] Lorene Branch, FORENSICS TEAM DIRECTOR 03/15/2024 9:00 AM R&D ENGINEER Appointment [facility] Outpatient Rehab [address] [place] [address] [place] [address] [place] [address] Lorene Branch, FORENSICS TEAM DIRECTOR 03/18/2024 9:15 AM R&D ENGINEER Appointment [facility] Outpatient [facility]hab [address] [place] [address] [place] [address] [place] [address] Lorene Branch, FORENSICS TEAM DIRECTOR 03/22/2024 9:00 AM R&D ENGINEER Appointment [facility] Outpatient [facility]hab [address] [place] [address] [place] [address] [place] [address] Lorene Branch, FORENSICS TEAM DIRECTOR 03/25/2024 9:15 AM R&D ENGINEER Appointment [facility] Outpatient Rehab [address] [place] [address] [place] [address] [place] [address] Jose Carlos, Lorene KennedyCAROLA 04/21/2024 11:20 AM R&D ENGINEER Office Visit [facility] Medical Group Family & Internal Medicine [facility] [address] [place] [phone] [place] [address] [place], [place] [phone] Scheduled Procedures Name Priority Associated Diagnoses Date/Ti me MANIPULATION SHOULDER Adhesive capsulitis of left shoulder 03/02/2024 12:27 PM R&D ENGINEER INJECTION JOINT Adhesive capsulitis of left shoulder 03/02/2024 12:27 PM R&D ENGINEER documented as of this encounter Procedures Procedure [...] Total Score: 5 03/18/19 24 2:22 PM R&D ENGINEER documented as of this encounter Care Teams Call Center Nurse Relationship Specialty Start Date End Date Marv Young NP PCP - General NURSE PRACTITIONER ADULT HEALTH 03/11/23 09/14/23 documented as of this encounter
--- OUTSIDE RECORDS SUMMARY | 2024-02-12 08:36 | XMS_ITS | Encounter Summary ---
Author Organization [facility] Address [facility] [place] [address] [place] [address] Care Team Providers Care Ladle Mechanic Name Role Phone Marv Quiroga NP Primary Care Provide r Reason for Referral * Imaging (Urgent) - Closed Specialty Diagnoses / Procedures Referred By Contac t Referred To Contact RADIOLOGY Diagnoses Acute pain of left shoulder Procedures MRI [place] [address] [place] [address] Phone: tel: fax: Referral ID Status Reason Start Date Expiration Date Visits Re quested Visits Authorized [id number] Closed 06/11/2023 07/10/2024 1 1 Reason for Visit * Reason Comments Pain Pt c/o left shoulder pain. Pt states she had serious fall on the ice in Feb Encounter Details Date Type Department Care Team (Late st Contact Info) Description 06/11/2023 3:00 PM CDT Office Visit [facility] Medical Group Family & Internal Medicine [facility] [address] [place] [address] [place] [address] [place] [address] Pain (Pt c/o left shoulder [...] Past Medical History: Diagnosis Date ADHD Asthma ([facility]) COPD (chronic obstructive pulmonary disease) ([facility]) History reviewed. No pertinent surgical history. Social [...] No ref. provider found PCP: MARV QUIROGA, SOFTWARE TESTING SPECIALIST documented in this encounter Plan of Treatment Upcoming Encounters Date Type Department Care Team (Late st Contact Info) Description 02/12/2024 9:00 AM FIBER DESIGNER Appointment [facility] Outpatient Rehab [address] [place] [address] [place] [address] [place] [address] [place] [address] [place] [address] 02/12/2024 2:00 PM FIBER DESIGNER Appointment [facility] MRI [address] [place] [address] [place] [address] [place] [address] 02/16/2024 9:00 AM FIBER DESIGNER Appointment [facility]patient Rehab [address] [place] [address] [place] [address] [place] [address] [place] [address] [place], [place] [phone] 02/19/2024 8:45 AM FIBER DESIGNER Appointment [facility]hab [address] [place] [address] [place] [address] [place] [address] [place] [address] [place] [address] 02/19/2024 9:00 AM FIBER DESIGNER Appointment [facility]hab [address] [place] [address] [place] [address] [place] [address] [place] [address] [place] [address] 02/23/2024 9:00 AM FIBER DESIGNER Appointment [facility] [address] [place] [address] [place] [address] [place] [address] [place] [address] [place] [address] 02/24/2024 1:30 PM FIBER DESIGNER Appointment [facility] MRI [address] [place] [address] [place] [address] [place] [address] 02/26/2024 9:00 AM FIBER DESIGNER Appointment [facility] Rehab [address] [place] [address] [place] [address] [place] [address] [place] [address] [place] [address] 02/26/2024 9:15 AM FIBER DESIGNER Appointment [facility] Out[facility]hab [address] [place] [address] [place] [address] [place] [address] [place] [address] [place] [address] 03/01/2024 9:00 AM FIBER DESIGNER Appointment [facility]hab [address] [place] [address] [place] [address] [place] [address] [place] [address] [place] [address] Lorene Branch, SUPERVISOR COATING 03/02/2024 12:27 PM FIBER DESIGNER Hospital Encounter [address] [address] [place] [address] [place] [address] 03/02/2024 12:27 PM FIBER DESIGNER - 03/02/2024 1:07 PM FIBER DESIGNER Surgery [facility] Surgery [address] [place] [address] [place] [address] [place] [address] MANIPULATION SHOULDER 03/05/2024 9:00 AM FIBER DESIGNER Appointment [facility]hab [address] [place] [address] [place] [address] [place] [address] Lorene Branch, SUPERVISOR COATING 03/08/2024 9:00 AM FIBER DESIGNER Appointment [facility]hab [address] [place] [address] [place] [address] [place] [address] Lorene Branch, SUPERVISOR COATING 03/11/2024 9:15 AM FIBER DESIGNER Appointment [facility] [address] [place] [address] [place] [address] [place] [address] Lorene Branch, SUPERVISOR COATING 03/15/2024 9:00 AM FIBER DESIGNER Appointment [facility]hab [address] [place] [address] [place] [address] [place] [address] Lorene Branch, SUPERVISOR COATING 03/18/2024 9:15 AM FIBER DESIGNER Appointment [facility]hab [address] [place] [address] [place] [address] [place] [address] Lorene Branch, SUPERVISOR COATING 03/22/2024 9:00 AM FIBER DESIGNER Appointment [facility] [address] [place] [address] [place] [address] [place] [address] Lorene Branch, SUPERVISOR COATING 03/25/2024 9:15 AM FIBER DESIGNER Appointment [facility] Rehab [address] [place], [place] [id number] Holger Soriano, TYLER [address] [place] [address] Lorene Branch, SUPERVISOR COATING 04/21/2024 11:20 AM FIBER DESIGNER Office Visit [facility] Medical Group Family & Internal Medicine [facility] [address] [place] [phone] [place] [address] [place], [place] [phone] Scheduled Procedures Name Priority Associated Diagnoses Date/Ti me MANIPULATION SHOULDER Adhesive capsulitis of left shoulder 03/02/2024 12:27 PM FIBER DESIGNER INJECTION JOINT Adhesive capsulitis of left shoulder 03/02/2024 12:27 PM FIBER DESIGNER documented as of this encounter Results * [...] Total Score: 5 03/18/19 24 2:22 PM FIBER DESIGNER documented as of this encounter Care Teams Ladle Mechanic Relationship Specialty Start Date End Date Marv Quiroga NP PCP - General NURSE PRACTITIONER ADULT HEALTH 03/11/23 09/14/23 documented as of this encounter
--- OUTSIDE RECORDS SUMMARY | 2024-02-12 08:36 | XMS_ITS | Encounter Summary ---
Author Organization [facility] Address [facility] [place] [address] [place] [address] Care Team Providers Care Physician Internist Name Role Phone Marv Quiroga GYROSCOPE TECHNICIAN Primary Care Provide r Reason for Visit * Reason Comments Follow Up Encounter Details Date Type Department Care Team (Late st Contact Info) Description 06/17/2023 2:20 PM CDT Office Visit [facility] Medical Group Family & Internal Medicine [address] [address] Marv Quiroga, GYROSCOPE TECHNICIAN [address] [place] [address] [place] [address] Follow Up Social History Tobacco [...] this encounter Progress Notes * Marv Quiroga, GYROSCOPE TECHNICIAN - 06/17/2023 2:20 PM CDT Reason for [...] Past Medical History: Diagnosis Date ADHD Asthma ([facility]) COPD (chronic obstructive pulmonary disease) ([facility]) History reviewed. No pertinent surgical history. Social [...] is moved. Patient doing well when taking [place] (5-325mg) tabs. I am scripting Cyclobenzaprine 10mg [...] complication, with long-term current use of insulin ([facility]) - A1C (BACK OFFICE) - COLLECT.CAPILLARY (FNGR,HEEL,EAR) [...] st Contact Info) Description 02/12/2024 9:00 AM ROTATING FIELD ASSEMBLER Appointment [facility] Outpatient Rehab [address] [place], [place] [id number] [place] [address] [place], [place] [phone] [place] [address] [place] [address] 02/12/2024 2:00 PM ROTATING FIELD ASSEMBLER Appointment [facility] [address] [place] [address] [place] [address] [place] [address] 02/16/2024 9:00 AM ROTATING FIELD ASSEMBLER Appointment [facility] Outpatient Rehab [address] [place] [address] [place] [address] [place] [address] [place] [address] [place] [address] 02/19/2024 8:45 AM ROTATING FIELD ASSEMBLER Appointment [facility] Outpatient Rehab [address] [place] [address] [place] [address] [place] [address] [place] [address] [place] [address] 02/19/2024 9:00 AM ROTATING FIELD ASSEMBLER Appointment [facility] Outpatient Rehab [address] [place] [address] [place] [address] [place] [address] [place] [address] [place] [address] 02/23/2024 9:00 AM ROTATING FIELD ASSEMBLER Appointment [facility] Outpatient Rehab [address] [place] [address] [place] [address] [place] [address] [place] [address] [place] [address] 02/24/2024 1:30 PM ROTATING FIELD ASSEMBLER Appointment [address] [address] [place] [address] [place] [address] 02/26/2024 9:00 AM ROTATING FIELD ASSEMBLER Appointment [facility] Outpatient Rehab [address] [place] [address] [place] [address] [place] [address] [place] [address] [place] [address] 02/26/2024 9:15 AM ROTATING FIELD ASSEMBLER Appointment [facility] Outpatient Rehab [address] [place] [address] [place] [address] [place] [address] [place] [address] [place] [address] 03/01/2024 9:00 AM ROTATING FIELD ASSEMBLER Appointment [facility] Outpatient Rehab [address] [place] [address] [place] [address] [place] [address] [place] [address] [place] [address] Lorene Branch, MIDWIFE AND BIRTH CENTER OWNER 03/02/2024 12:27 PM ROTATING FIELD ASSEMBLER Hospital Encounter [facility] [address] [place] [address] [place] [address] [place] [address] 03/02/2024 12:27 PM ROTATING FIELD ASSEMBLER - 03/02/2024 1:07 PM ROTATING FIELD ASSEMBLER Surgery [facility] Surgery [address] [place] [address] [place] [address] [place] [address] MANIPULATION SHOULDER 03/05/2024 9:00 AM ROTATING FIELD ASSEMBLER Appointment [facility] Outpatient Rehab [address] [place] [address] [place] [address] [place] [address] Lorene Branch, MIDWIFE [employer] BIRTH C[employer] OWNER 03/08/2024 9:00 AM ROTATING FIELD ASSEMBLER Appointment [facility] Outpatient Rehab [address] [place] [address] [place] [address] [place] [address] Lorene Branch, MIDWIFE [employer] BIRTH C[employer] OWNER 03/11/2024 9:15 AM ROTATING FIELD ASSEMBLER Appointment [facility] Outpatient Rehab [address] [place] [address] [place] [address] [place] [address] Lorene Branch, MIDWIFE [employer] BIRTH C[employer] OWNER 03/15/2024 9:00 AM ROTATING FIELD ASSEMBLER Appointment [facility] Outpatient Rehab [address] [place] [address] [place] [address] [place] [address] Lorene Branch, MIDWIFE AND BIRTH CENTER OWNER 03/18/2024 9:15 AM ROTATING FIELD ASSEMBLER Appointment [facility] Outpatient Rehab [address] [place] [address] [place] [address] [place] [address] Lorene Branch, MIDWIFE [employer] BIRTH C[employer] OWNER 03/22/2024 9:00 AM ROTATING FIELD ASSEMBLER Appointment [facility] Outpatient Rehab [address] [place] [address] [place] [address] [place] [address] Lorene Branch, MIDWIFE AND BIRTH C[employer] OWNER 03/25/2024 9:15 AM ROTATING FIELD ASSEMBLER Appointment [facility] Outpatient Rehab [address] [place] [address] [place] [address] [place] [address] Lorene Branch, MIDWIFE AND BIRTH CENTER OWNER 04/21/2024 11:20 AM ROTATING FIELD ASSEMBLER Office Visit [facility] Medical Group Family & Internal Medicine [facility] [address] [place] [address] [place] [address] [facility] [place] [phone] Scheduled Procedures Name Priority Associated Diagnoses Date/Ti me MANIPULATION SHOULDER Adhesive capsulitis of left shoulder 03/02/2024 12:27 PM ROTATING FIELD ASSEMBLER INJECTION JOINT Adhesive capsulitis of left shoulder 03/02/2024 12:27 PM ROTATING FIELD ASSEMBLER documented as of this encounter Procedures Procedure Name Priority Date/Time Associated Diagnosis Comments COLLECT.CAPILLARY (FNGR,HEEL,EAR) Routine 06/17/2023 2:02 PM CDT Type 2 diabetes mellitus without complication, with long-term current use of insulin ([facility]) HEMOGLOBIN, GLYCOSYLATED Routine 06/17/2023 Type 2 diabetes mellitus without complication, with long-term current use of insulin ([facility]) documented in this encounter Results * A1C (BACK OFFICE) (06/17/2023) HGB A1C 5.0 % [id number] [facility] 06/17/2023 Marv Quiroga NP LABORATORY Final Result [id number] [facility] [address] [place] [address], [place] [phone] documented in this encounter Visit Diagnoses Diagnosis Type 2 diabetes mellitus without complication, with long-term current use of insulin ([facility])- Primary Chronic left shoulder pain Pain in joint, shoulder region Muscle spasm of left shoulder Adhesive capsulitis of left shoulder Adhesive capsulitis of shoulder documented in this encounter Additional Health Concerns Assessment Noted Time PHQ-9 Depression Total Score: 5 03/18/19 24 2:22 PM ROTATING FIELD ASSEMBLER documented as of this encounter Care Teams Physician Internist Relationship Specialty Start Date End Date Marv Quiroga NP PCP - General NURSE PRACTITIONER ADULT HEALTH 03/11/23 09/14/23 documented as of this encounter
--- OUTSIDE RECORDS SUMMARY | 2024-02-12 08:36 | XMS_ITS | Encounter Summary ---
Author Organization [facility] Address [facility]6 [facility] [address] [place] [address] Care Team Providers Care Stone Setter Apprentice Name Role Phone Marv Young TRAVEL CLERK Primary Care Provide r Reason for Visit * Reason Onset Date Comments Joint Pain 06/11/2023 Request Note 06/11/2023 Encounter Details Date Type Department Care Team (Late st Contact Info) Description 06/11/2023 Telephone [facility] Family & Internal Medicine [facility] [id number] [place] [phone] Marv Young, TRAVEL CLERK [address] [place] [address] [place] [address] Joint Pain; Request Note Social [...] Fax number for work to send note: [phone] documented in this encounter Plan of Treatment Upcoming Encounters Date Type Department Care Team (Late st Contact Info) Description 02/12/2024 9:00 AM WAREHOUSE TEAM MEMBER Appointment [facility] [address] [place] [address] [place] [address] [place] [address] [place] [address] [place] [address] 02/12/2024 2:00 PM WAREHOUSE TEAM MEMBER Appointment [facility] [address] [place] [address] [place] [address] [place] [address] 02/16/2024 9:00 AM WAREHOUSE TEAM MEMBER Appointment [facility] [address] [place] [address] [place] [address] [place] [address] [place] [address] [place] [address] 02/19/2024 8:45 AM WAREHOUSE TEAM MEMBER Appointment [facility] [address] [place] [address] [place] [address] [place] [address] [place] [address] [place] [address] 02/19/2024 9:00 AM WAREHOUSE TEAM MEMBER Appointment [facility] [address] [place] [address] [place] [address] [place] [address] [place] [address] [place] [address] 02/23/2024 9:00 AM WAREHOUSE TEAM MEMBER Appointment [facility] [address] [place] [address] [place] [address] [place] [address] [place] [address] [place] [address] 02/24/2024 1:30 PM WAREHOUSE TEAM MEMBER Appointment [facility] [address] [place] [address] [place] [address] [place] [address] 02/26/2024 9:00 AM WAREHOUSE TEAM MEMBER Appointment [facility] [address] [place] [address] [place] [address] [place] [address] [place] [address] [place] [address] 02/26/2024 9:15 AM WAREHOUSE TEAM MEMBER Appointment [facility] [address] [place] [address] [place] [address] [place] [address] [place] [address] [place] [address] 03/01/2024 9:00 AM WAREHOUSE TEAM MEMBER Appointment [facility] [address] [place] [address] [place] [address] [place] [address] [place] [address] [place] [address] Lorene Branch, MAINTENANCE PIPEFITTER 03/02/2024 12:27 PM WAREHOUSE TEAM MEMBER Hospital Encounter [facility] Surgery [address] [place] [address] [place] [address] [place] [address] 03/02/2024 12:27 PM WAREHOUSE TEAM MEMBER - 03/02/2024 1:07 PM WAREHOUSE TEAM MEMBER Surgery [facility] Surgery [address] [place] [address] [place] [address] [place] [address] MANIPULATION SHOULDER 03/05/2024 9:00 AM WAREHOUSE TEAM MEMBER Appointment [facility] [address] [place] [address] [place] [address] [place] [address] Lorene Branch, MAINTENANCE PIPEFITTER 03/08/2024 9:00 AM WAREHOUSE TEAM MEMBER Appointment [facility] [address] [place] [address] [place] [address] [place] [address] Lorene Branch, MAINTENANCE PIPEFITTER 03/11/2024 9:15 AM WAREHOUSE TEAM MEMBER Appointment [facility] [address] [place] [address] [place] [address] [place] [address] Lorene Branch, MAINTENANCE PIPEFITTER 03/15/2024 9:00 AM WAREHOUSE TEAM MEMBER Appointment [facility] [address] [place] [address] [place] [address] [place] [address] Lorene Branch, MAINTENANCE PIPEFITTER 03/18/2024 9:15 AM WAREHOUSE TEAM MEMBER Appointment [facility] [address] [place] [address] [place] [address] [place] [address] Lorene Branch, MAINTENANCE PIPEFITTER 03/22/2024 9:00 AM WAREHOUSE TEAM MEMBER Appointment [facility] [address] [place] [address] [place] [address] [place] [address] Lorene Branch, MAINTENANCE PIPEFITTER 03/25/2024 9:15 AM WAREHOUSE TEAM MEMBER Appointment [facility] [address] [place] [address] [place] [address] [place], [place] [address] Lorene Branch, MAINTENANCE PIPEFITTER 04/21/2024 11:20 AM WAREHOUSE TEAM MEMBER Office Visit [facility] Family & Internal Medicine - [place] [address] [place] [address] [place] [address] [place] [address] Scheduled Procedures Name Priority Associated Diagnoses Date/Ti me MANIPULATION SHOULDER Adhesive capsulitis of left shoulder 03/02/2024 12:27 PM WAREHOUSE TEAM MEMBER INJECTION JOINT Adhesive capsulitis of left shoulder 03/02/2024 12:27 PM WAREHOUSE TEAM MEMBER documented as of this encounter Visit Diagnoses Not on filedocumented in this encounter Additional Health Concerns Assessment Noted Time PHQ-9 Depression Total Score: 5 03/18/19 24 2:22 PM WAREHOUSE TEAM MEMBER documented as of this encounter Care Teams Stone Setter Apprentice Relationship Specialty Start Date End Date Marv Young NP PCP - General NURSE PRACTITIONER ADULT HEALTH 03/11/23 09/14/23 documented as of this encounter
--- OUTSIDE RECORDS SUMMARY | 2024-02-12 08:36 | XMS_ITS | Encounter Summary ---
Author Organization [facility] Address [facility] [place] [address] [place] [address] Care Team Providers Care Nitro Man Name Role Phone Marv Young NEUROLOGY SPECIALIST Primary Care Provide r Reason for Visit * Reason Onset Date Comments Other 06/23/2023 OV canceled Encounter Details Date Type Department Care Team (Late st Contact Info) Description 06/23/2023 Telephone [facility] Group Family & Internal Medicine [address] [phone] Marv Young, NEUROLOGY SPECIALIST [address] [place] [address] [place] [address] Other (OV canceled ) Social [...] have inj shoulder Will see ortho first [phone] documented in this encounter Plan of Treatment Upcoming Encounters Date Type Department Care Team (Late st Contact Info) Description 02/12/2024 9:00 AM DRUM PULLER Appointment [facility] [address] [place] [address] [place] [address] [place] [address] [place] [address] [place] [address] 02/12/2024 2:00 PM DRUM PULLER Appointment [facility] [address] [place] [address] [place] [address] [place] [address] 02/16/2024 9:00 AM DRUM PULLER Appointment [facility] [address] [place] [address] [place] [address] [place] [address] [place] [address] [place] [address] 02/19/2024 8:45 AM DRUM PULLER Appointment [facility] [address] [place] [address] [place] [address] [place] [address] [place] [address] [place] [address] 02/19/2024 9:00 AM DRUM PULLER Appointment [facility] [address] [place] [address] [place] [address] [place] [address] [place] [address] [place] [address] 02/23/2024 9:00 AM DRUM PULLER Appointment [facility] Outpatient Rehab [address] [place] [address] [place] [address] [place] [address] [place] [address] [place] [address] 02/24/2024 1:30 PM DRUM PULLER Appointment [facility] [address] [place] [address] [place] [address] [place] [address] 02/26/2024 9:00 AM DRUM PULLER Appointment [facility]patient [facility]hab [address] [place] [address] [place] [address] [place] [address] [place] [address] [place] [address] 02/26/2024 9:15 AM DRUM PULLER Appointment [facility] [address] [place] [address] [place] [address] [place] [address] [place] [address] [place] [address] 03/01/2024 9:00 AM DRUM PULLER Appointment [facility]hab [address] [place] [address] [place] [address] [place] [address] [place] [address] [place] [address] Lorene Branch, PROOFING MACHINE OPERATOR 03/02/2024 12:27 PM DRUM PULLER Hospital Encounter [facility] Surgery [address] [place] [address] [place] [address] [place] [address] 03/02/2024 12:27 PM DRUM PULLER - 03/02/2024 1:07 PM DRUM PULLER Surgery [facility] Surgery [address] [place] [address] [place] [address] [place] [address] MANIPULATION SHOULDER 03/05/2024 9:00 AM DRUM PULLER Appointment [facility] Outpatient [facility]hab [address] [place] [address] [place] [address] [place] [address] Lorene Branch, PROOFING MACHINE OPERATOR 03/08/2024 9:00 AM DRUM PULLER Appointment [facility]hab [address] [place] [address] [place] [address] [place] [address] Lorene Branch, PROOFING MACHINE OPERATOR 03/11/2024 9:15 AM DRUM PULLER Appointment [facility] [address] [place] [address] [place] [address] [place] [address] Lorene Branch, PROOFING MACHINE OPERATOR 03/15/2024 9:00 AM DRUM PULLER Appointment [facility] [address] [place] [address] [place] [address] [place] [address] Lorene Branch, PROOFING MACHINE OPERATOR 03/18/2024 9:15 AM DRUM PULLER Appointment [facility] Outpatient [facility]hab [address] [place] [address] [place] [address] [place] [address] Lorene Branch Marcia, PROOFING MACHINE OPERATOR 03/22/2024 9:00 AM DRUM PULLER Appointment [facility] Outpatient Rehab [address] [place] [address] [place] [address] [place] [address] Lorene Branch Marcia, PROOFING MACHINE OPERATOR 03/25/2024 9:15 AM DRUM PULLER Appointment [facility]patient [facility]hab [address] [place] [address] [place] [address] [place] [address] Chantal Branchreginald Kennedy, PROOFING MACHINE OPERATOR 04/21/2024 11:20 AM DRUM PULLER Office Visit [facility] Medical Group Family & Internal Medicine [facility] [address] [place] [phone] [place] [address] [place], [place] [phone] Scheduled Procedures Name Priority Associated Diagnoses Date/Ti me MANIPULATION SHOULDER Adhesive capsulitis of left shoulder 03/02/2024 12:27 PM DRUM PULLER INJECTION JOINT Adhesive capsulitis of left shoulder 03/02/2024 12:27 PM DRUM PULLER documented as of this encounter Visit Diagnoses Not on filedocumented in this encounter Additional Health Concerns Assessment Noted Time PHQ-9 Depression Total Score: 5 03/18/19 24 2:22 PM DRUM PULLER documented as of this encounter Care Teams Nitro Man Relationship Specialty Start Date End Date Marv Young NP PCP - General NURSE PRACTITIONER ADULT HEALTH 03/11/23 09/14/23 documented as of this encounter
--- OUTSIDE RECORDS SUMMARY | 2024-02-12 08:36 | XMS_ITS | Encounter Summary ---
Author Organization [facility] Address [facility]ly [facility], [id number] [facility] [place] [address] [place] [address] Care Team Providers Care Prototype Carpenter Name Role Phone Marv Young NP Primary [...] st Contact Info) Description 02/12/2024 9:00 AM MOP HANDLE ASSEMBLER Appointment [facility]patient [facility]hab [address] [place], [place] [address] [place] [address] [place], [place] [address] [place] [address] [place] [address] 02/12/2024 2:00 PM MOP HANDLE ASSEMBLER Appointment [facility] [address] [place] [address] [place] [address] [place] [address] 02/16/2024 9:00 AM MOP HANDLE ASSEMBLER Appointment [facility] [address] [place] [address] [place] [address] [place] [address] [place] [address] [place] [address] 02/19/2024 8:45 AM MOP HANDLE ASSEMBLER Appointment [facility] [address] [place] [address] [place] [address] [place] [address] [place] [address] [place] [address] 02/19/2024 9:00 AM MOP HANDLE ASSEMBLER Appointment [facility] [address] [place] [address] [place] [address] [place] [address] [place] [address] [place] [address] 02/23/2024 9:00 AM MOP HANDLE ASSEMBLER Appointment [facility] [address] [place] [address] [place] [address] [place] [address] [place] [address] [place] [address] 02/24/2024 1:30 PM MOP HANDLE ASSEMBLER Appointment [facility] [address] [place] [address] [place] [address] [place] [address] 02/26/2024 9:00 AM MOP HANDLE ASSEMBLER Appointment [facility] [address] [place] [address] [place] [address] [place] [address] [place] [address] [place] [address] 02/26/2024 9:15 AM MOP HANDLE ASSEMBLER Appointment [facility] [address] [place] [address] [place] [address] [place] [address] [place] [address] [place] [address] 03/01/2024 9:00 AM MOP HANDLE ASSEMBLER Appointment [facility] [address] [place] [address] [place] [address] [place] [address] [place] [address] [place] [address] Lorene Branch, PRACTICAL NURSING TEACHER 03/02/2024 12:27 PM MOP HANDLE ASSEMBLER Hospital Encounter [facility] [address] [place] [address] [place] [address] [place] [address] 03/02/2024 12:27 PM MOP HANDLE ASSEMBLER - 03/02/2024 1:07 PM MOP HANDLE ASSEMBLER Surgery [address] [address] [place] [address] [place] [address] MANIPULATION SHOULDER 03/05/2024 9:00 AM MOP HANDLE ASSEMBLER Appointment [facility]patient [facility]hab [address] [place] [address] [place] [address] [place] [address] Lorene Branch, PRACTICAL NURSING TEACHER 03/08/2024 9:00 AM MOP HANDLE ASSEMBLER Appointment [facility] [address] [place] [address] [place] [address] [place] [address] Lorene Branch, PRACTICAL NURSING TEACHER 03/11/2024 9:15 AM MOP HANDLE ASSEMBLER Appointment [facility] [address] [place] [address] [place] [address] [place] [address] Lorene Branch, PRACTICAL NURSING TEACHER 03/15/2024 9:00 AM MOP HANDLE ASSEMBLER Appointment [facility] [address] [place] [address] [place] [address] [place] [address] Lorene Branch, PRACTICAL NURSING TEACHER 03/18/2024 9:15 AM MOP HANDLE ASSEMBLER Appointment [facility] [address] [place] [address] [place] [address] [place] [address] Lorene Branch, PRACTICAL NURSING TEACHER 03/22/2024 9:00 AM MOP HANDLE ASSEMBLER Appointment [facility] [address] [place] [address] [place] [address] [place] [address] Lorene Branch, PRACTICAL NURSING TEACHER 03/25/2024 9:15 AM MOP HANDLE ASSEMBLER Appointment [facility] [address] [place] [address] [place] [address] [place] [address] Lorene Branch, PRACTICAL NURSING TEACHER 04/21/2024 11:20 AM MOP HANDLE ASSEMBLER Office Visit [facility] Medical Group Family & Internal Medicine [address] [address] [place] [address] [place] [address] Scheduled Procedures Name Priority Associated Diagnoses Date/Ti me MANIPULATION SHOULDER Adhesive capsulitis of left shoulder 03/02/2024 12:27 PM MOP HANDLE ASSEMBLER INJECTION JOINT Adhesive capsulitis of left shoulder 03/02/2024 12:27 PM MOP HANDLE ASSEMBLER documented as of this encounter Visit Diagnoses Not on filedocumented in this encounter Additional Health Concerns Assessment Noted Time PHQ-9 Depression Total Score: 5 03/18/19 24 2:22 PM MOP HANDLE ASSEMBLER documented as of this encounter Care Teams Prototype Carpenter Relationship Specialty Start Date End Date Marv Young NP PCP - General NURSE PRACTITIONER ADULT HEALTH 03/11/23 09/14/23 documented as of this encounter
--- OUTSIDE RECORDS SUMMARY | 2024-02-12 08:37 | XMS_ITS | Encounter Summary ---
Author Organization [facility] Address [facility]ly [facility] [place] [address] [place] [address] Care Team Providers Care Marketing Professional Name Role Phone Marv Young LANDSCAPE ENGINEER Primary Care Provide r Reason for Visit * Reason Onset Date Comments FYI 05/29/2023 Encounter Details Date Type Department Care Team (Late st Contact Info) Description 05/29/2023 Telephone [facility] Family & Internal Medicine [facility] [id number] [place] [phone] Marv Young, LANDSCAPE ENGINEER [address] [facility] [place] [address] FYI Social History Tobacco Use [...] st Contact Info) Description 02/12/2024 9:00 AM LEASING PROFESSIONAL Appointment [facility] Outpatient Rehab [address] [place] [address] [place] [address] [place] [address] [place] [address] [place] [address] 02/12/2024 2:00 PM LEASING PROFESSIONAL Appointment [facility] MRI [address] [place] [address] [place] [address] [place] [address] 02/16/2024 9:00 AM LEASING PROFESSIONAL Appointment [facility] Outpatient Rehab [address] [place] [address] [place] [address] [place] [address] [place] [address] [place] [address] 02/19/2024 8:45 AM LEASING PROFESSIONAL Appointment [facility] Outpatient Rehab [address] [place] [address] [place] [address] [place] [address] [place] [address] [place] [address] 02/19/2024 9:00 AM LEASING PROFESSIONAL Appointment [facility] Outpatient Rehab [address] [place] [address] [place] [address] [place] [address] [place] [address] [place] [address] 02/23/2024 9:00 AM LEASING PROFESSIONAL Appointment [facility] Outpatient Rehab [address] [place] [address] [place] [address] [place] [address] [place] [address] [place] [address] 02/24/2024 1:30 PM LEASING PROFESSIONAL Appointment [facility] MRI [address] [place] [address] Ihsan Logan, [address] [place] [address] 02/26/2024 9:00 AM LEASING PROFESSIONAL Appointment [facility] Outpatient Rehab [address] [place] [address] [place] [address] [place] [address] [place] [address] [place] [address] 02/26/2024 9:15 AM LEASING PROFESSIONAL Appointment [facility] Outpatient Rehab [address] [place] [address] [place] [address] [place] [address] [place] [address] [place] [address] 03/01/2024 9:00 AM LEASING PROFESSIONAL Appointment [facility] Outpatient Rehab [address] [place] [address] [place] [address] [place] [address] [place] [address] [place] [address] Lorene Branch, MAINTENANCE PAINTER APPRENTICE 03/02/2024 12:27 PM LEASING PROFESSIONAL Hospital Encounter [facility] [address] [place] [address] [place] [address] [place] [address] 03/02/2024 12:27 PM LEASING PROFESSIONAL - 03/02/2024 1:07 PM LEASING PROFESSIONAL Surgery [facility] Surgery [address] [place] [address] [place] [address] [place] [address] MANIPULATION SHOULDER 03/05/2024 9:00 AM LEASING PROFESSIONAL Appointment [facility] Outpatient Rehab [address] [place] [address] [place] [address] [place] [address] Lorene Branch, MAINTENANCE PAINTER APPRENTICE 03/08/2024 9:00 AM LEASING PROFESSIONAL Appointment [facility] Outpatient Rehab [address] [place] [address] [place] [address] [place] [address] Lorene Branch, MAINTENANCE PAINTER APPRENTICE 03/11/2024 9:15 AM LEASING PROFESSIONAL Appointment [facility] Outpatient Rehab [address] [place] [address] [place] [address] [place] [address] Lorene Branch, MAINTENANCE PAINTER APPRENTICE 03/15/2024 9:00 AM LEASING PROFESSIONAL Appointment [facility] Outpatient Rehab [address] [place] [address] [place] [address] [place] [address] Lorene Branch, MAINTENANCE PAINTER APPRENTICE 03/18/2024 9:15 AM LEASING PROFESSIONAL Appointment [facility] Outpatient Rehab [address] [place] [address] [place] [address] [place] [address] Lorene Branch, MAINTENANCE PAINTER APPRENTICE 03/22/2024 9:00 AM LEASING PROFESSIONAL Appointment [facility] Outpatient Rehab [address] [place] [address] [place] [address] [place] [address] Lorene Branch, MAINTENANCE PAINTER APPRENTICE 03/25/2024 9:15 AM LEASING PROFESSIONAL Appointment [facility] Outpatient Rehab [address] [place] [address] [place] [address] [place] [address] Lorene Branch, MAINTENANCE PAINTER APPRENTICE 04/21/2024 11:20 AM LEASING PROFESSIONAL Office Visit [facility] Medical Group Family & Internal Medicine - [address] [phone] [place] [address] [place] [address] Scheduled Procedures Name Priority Associated Diagnoses Date/Ti me MANIPULATION SHOULDER Adhesive capsulitis of left shoulder 03/02/2024 12:27 PM LEASING PROFESSIONAL INJECTION JOINT Adhesive capsulitis of left shoulder 03/02/2024 12:27 PM LEASING PROFESSIONAL documented as of this encounter Visit Diagnoses Not on filedocumented in this encounter Additional Health Concerns Assessment Noted Time PHQ-9 Depression Total Score: 5 03/18/19 24 2:22 PM LEASING PROFESSIONAL documented as of this encounter Care Teams Marketing Professional Relationship Specialty Start Date End Date Marv Young NP PCP - General NURSE PRACTITIONER ADULT HEALTH 03/11/23 09/14/23 documented as of this encounter
--- OUTSIDE RECORDS SUMMARY | 2024-02-12 08:37 | XMS_ITS | Encounter Summary ---
Author Organization [facility] Address [facility]6 [facility] [place] [address] [place] [address] Care Team Providers Care Supervisor Vat House Name Role Phone Marv Young NP Primary Care Provide r Reason for Referral * Medication Prior Authorization - Denied Specialty Diagnoses / Procedures Referred By Contac t Referred To Contact Stacy Ny MD [address] [place] [address] Phone: tel: fax: Referral ID Status Reason Start Date Expiration Date Visits Re quested Visits Authorized [id number] Denied 1 1 Reason for Visit * Reason Comments Shoulder Pain Encounter Details Date Type Department Care Team (Late st Contact Info) Description 05/29/2023 1:34 AM CDT - 05/29/2023 2:37 AM CDT Emergency [facility] Emergency Room [address] [place] [address] Stacy Ny MD [address] [place] [address] Shoulder Pain Discharge Disposition: Home or [...] in orthopedic injury clinic: [facility] System: [facility] [id number] [place] [address], [address] [place] [address] Free surface lot parking Hours: Friday-: Noon - 7:00 pm Hours: Friday: Noon - 6:00 pm Friday: 8:00 am - Noon [address], [address] [place] [address] Free surface lot parking Hours: Friday-: Noon - 7:00 pm Hours: Friday: Noon - 6:00 pm [facility] - Now Open! Medical Office Building [address] [facility], [address] [place] [address] Free surface lot parking Hours: Friday-: Noon - 7:00 pm Friday: Noon - 6:00 pm Friday: 8:00 am - Noon Orthopedic Injury Clinic in [facility] ([facility]) [place] [address] [facility] [place] [address] [facility] Orthopedic and Walk-in Care at the [facility] Medicine [facility] Orthopedics & Sports Medicine at [place] [phone] Call to see if they take walk ins * Attachments The following attachments cannot be sent through Care Everywhere. * Shoulder Pain ED (Cuban) documented in this encounter Medications at Time [...] MG tabletIndications :Bipolar I disorder with depression ([facility] HHS/HCC) Take 1 tablet (100 mg total) by mouth nightly at bedtime. 90 tablet 03/18/2023 4 semaglutide (OZEMPIC) 1 mg/dose injection (PEN)Indications: Type 2 diabetes mellitus without complication, with long-term current use of insulin ([facility] HHS/HCC) Inject 1 mg into the skin [...] naproxen which she hasn't been able to fiber picker yet, has an MRI scheduled on [...] by mouth 2 (two) times daily. 03/18/23 Marv Young NP estradiol (ESTRACE) 2 MG tablet [...] Past Medical History: Diagnosis Date ADHD Asthma ([facility]) COPD (chronic obstructive pulmonary disease) ([facility]) PAST SURGICAL HISTORY: History reviewed. No pertinent [...] SHOULDER LT 3V Final Result by User, [id number] (05/28 221) EXAMINATION: XR HUMERUS LT MIN [...] LT MIN 2V Final Result by User, [id number] (05/28 221) EXAMINATION: XR HUMERUS LT MIN [...] st Contact Info) Description 02/12/2024 9:00 AM DEPUTY SHERIFF BAILIFF Appointment [facility] Outpatient Rehab [address] [place] [address] [place] [address] [place] [address] [place] [address] [place] [address] 02/12/2024 2:00 PM DEPUTY SHERIFF BAILIFF Appointment [facility] [place] [address] [place] [address] [place] [address] [place] [address] 02/16/2024 9:00 AM DEPUTY SHERIFF BAILIFF Appointment [facility] Outpatient Rehab [address] [place] [address] [place] [address] [place] [address] [place] [address] [place] [address] 02/19/2024 8:45 AM DEPUTY SHERIFF BAILIFF Appointment [facility] Outpatient Rehab [address] [place] [address] [place] [address] [place] [address] [place] [address] [place] [address] 02/19/2024 9:00 AM DEPUTY SHERIFF BAILIFF Appointment [facility] Outpatient Rehab [address] [place] [address] [place] [address] [place] [address] [place] [address] [place] [address] 02/23/2024 9:00 AM DEPUTY SHERIFF BAILIFF Appointment [facility] Outpatient Rehab [address] [place] [address] [place] [address] [place] [address] [place] [address] [place] [address] 02/24/2024 1:30 PM DEPUTY SHERIFF BAILIFF Appointment [address] [address] [place] [address] [place] [address] 02/26/2024 9:00 AM DEPUTY SHERIFF BAILIFF Appointment [facility] Outpatient Rehab [address] [place] [address] [place] [address] [place] [address] [place] [address] [place] [address] 02/26/2024 9:15 AM DEPUTY SHERIFF BAILIFF Appointment [facility] Outpatient Rehab [address] [place] [address] [place] [address] [place] [address] [place] [address] [place] [address] 03/01/2024 9:00 AM DEPUTY SHERIFF BAILIFF Appointment [facility] Outpatient Rehab [address] [place] [address] [place] [address] [place] [address] [place] [address] [place] [address] Lorene Branch, LMFT 03/02/2024 12:27 PM DEPUTY SHERIFF BAILIFF Hospital Encounter [facility] Surgery [address] [place] [address] [place] [address] [place] [address] 03/02/2024 12:27 PM DEPUTY SHERIFF BAILIFF - 03/02/2024 1:07 PM DEPUTY SHERIFF BAILIFF Surgery [facility] Surgery [address] [place] [address] [place] [address] [place] [address] MANIPULATION SHOULDER 03/05/2024 9:00 AM DEPUTY SHERIFF BAILIFF Appointment [facility] Outpatient Rehab [address] [place] [address] [place] [address] [place] [address] Lorene Branch, LMFT 03/08/2024 9:00 AM DEPUTY SHERIFF BAILIFF Appointment [facility] Outpatient Rehab [address] [place] [address] [place] [address] [place] [address] Lorene Branch, LMFT 03/11/2024 9:15 AM DEPUTY SHERIFF BAILIFF Appointment [facility] Outpatient Rehab [address] [place] [address] [place] [address] [place] [address] Lorene Branch, LMFT 03/15/2024 9:00 AM DEPUTY SHERIFF BAILIFF Appointment [facility] Outpatient Rehab [address] [place] [address] [place] [address] [place] [address] Lorene Branch, LMFT 03/18/2024 9:15 AM DEPUTY SHERIFF BAILIFF Appointment [facility] Outpatient Rehab [address] [place] [address] [place] [address] [place] [address] Lorene Branch, LMFT 03/22/2024 9:00 AM DEPUTY SHERIFF BAILIFF Appointment [facility] Outpatient Rehab [address] [place] [address] [place] [address] [place] [address] Lorene Branch, LMFT 03/25/2024 9:15 AM DEPUTY SHERIFF BAILIFF Appointment [facility] Outpatient Rehab [address] [place] [address] [place] [address] [place] [address] Lorene Branch, LMFT 04/21/2024 11:20 AM DEPUTY SHERIFF BAILIFF Office Visit [facility] Medical Group Family & Internal Medicine [facility] [address] [place] [address] [place] [address] [place] [address] Scheduled Procedures Name Priority Associated Diagnoses Date/Ti me MANIPULATION SHOULDER Adhesive capsulitis of left shoulder 03/02/2024 12:27 PM DEPUTY SHERIFF BAILIFF INJECTION JOINT Adhesive capsulitis of left shoulder 03/02/2024 12:27 PM DEPUTY SHERIFF BAILIFF documented as of this encounter Procedures Procedure [...] Total Score: 5 03/18/19 24 2:22 PM DEPUTY SHERIFF BAILIFF documented as of this encounter Care Teams Supervisor Vat House Relationship Specialty Start Date End Date Marv Young NP PCP - General NURSE PRACTITIONER ADULT HEALTH 03/11/23 09/14/23 documented as of this encounter
--- OUTSIDE RECORDS SUMMARY | 2024-02-12 08:37 | XMS_ITS | Encounter Summary ---
Author Organization [facility] Address [facility]6 [facility] [place] [address] [place] [address] Care Team Providers Care Margarine Churn Operator Name Role Phone Marv Young NP [...] st Contact Info) Description 02/12/2024 9:[address] [facility] Outpatient Rehab [address] [place] [address] [place] [address] [place] [address] [place] [address] [place] [address] 02/12/2024 2:[address] [facility] MRI [address] [place] [address] [place] [address] [place] [address] 02/16/2024 9:[address] [facility] Outpatient Rehab [address] [place] [address] [place] [address] [place] [address] [place] [address] [place] [address] 02/19/2024 8:[address] [facility] Outpatient Rehab [address] [place] [address] [place] [address] [place] [address] [place] [address] [place] [address] 02/19/2024 9:[address] [facility] Outpatient Rehab [address] [place] [address] [place] [address] [place] [address] [place] [address] [place] [address] 02/23/2024 9:[address] [facility] Outpatient Rehab [address] [place] [address] [place] [address] [place] [address] [place] [address] [place] [address] 02/24/2024 1:30 PM GLASSBLOWER Appointment [facility] [address] [place] [address] [place] [address] [place] [address] 02/26/2024 9:[address] [facility] Outpatient Rehab [address] [place] [address] [place] [address] [place] [address] [place] [address] [place] [address] 02/26/2024 9:[address] [facility]patient Rehab [address] [place] [address] [place] [address] [place] [address] [place] [address] [place] [address] 03/01/2024 9:[address] [facility]patient [facility]hab [address] [place] [address] [place] [address] [place] [address] [place] [address] [place] [address] Lorene Branch, TOP ICER 03/02/2024 12:27 PM GLASSBLOWER Hospital Encounter [facility] Surgery [address] [place] [address] [place] [address] [place] [address] 03/02/2024 12:27 PM GLASSBLOWER - 03/02/2024 1:07 PM GLASSBLOWER Surgery [address] [address] [place] [address] [place] [address] MANIPULATION SHOULDER 03/05/2024 9:[address] [facility] Outpatient Rehab [address] [place] [address] [place] [address] [place] [address] Lorene Branch, TOP ICER 03/08/2024 9:[address] [facility]patient [facility]hab [address] [place] [address] [place] [address] [place] [address] Lorene Branch, TOP ICER 03/11/2024 9:[address] [facility] [address] [place] [address] [place] [address] [place] [address] Lorene Branch, TOP ICER 03/15/2024 9:00 AM GLASSBLOWER Appointment [facility] [address] [place] [address] [place] [address] [place] [address] Lorene Branch, TOP ICER 03/18/2024 9:15 AM GLASSBLOWER Appointment [facility] [address] [place] [address] [place] [address] [place] [address] Lorene Branch, TOP ICER 03/22/2024 9:00 AM GLASSBLOWER Appointment [facility] [address] [place] [address] [place] [address] [place] [address] Lorene Branch, TOP ICER 03/25/2024 9:15 AM GLASSBLOWER Appointment [facility] [address] [place] [address] [place] [address] [place] [address] Lorene Branch, TOP ICER 04/21/2024 11:20 AM GLASSBLOWER Office Visit [facility] Medical Group Family & Internal Medicine - [place] [address] [place] [address] [place] [address] [place] [address] Scheduled Procedures Name Priority Associated Diagnoses Date/Ti me MANIPULATION SHOULDER Adhesive capsulitis of left shoulder 03/02/2024 12:27 PM GLASSBLOWER INJECTION JOINT Adhesive capsulitis of left shoulder 03/02/2024 12:27 PM GLASSBLOWER documented as of this encounter Visit Diagnoses Not on filedocumented in this encounter Additional Health Concerns Assessment Noted Time PHQ-9 Depression Total Score: 5 03/18/19 2:22 PM GLASSBLOWER documented as of this encounter Care Teams Margarine Churn Operator Relationship Specialty Start Date End Date Marv Young NP PCP - General NURSE PRACTITIONER ADULT HEALTH 03/11/23 09/14/23 documented as of this encounter
--- OUTSIDE RECORDS SUMMARY | 2024-02-12 08:37 | XMS_ITS | Encounter Summary ---
Author Organization [facility] Address [facility]6 [facility] [place] [address] [place] [address] Care Team Providers Care Rib Chopper Name Role Phone Marv Young HAND CUTTER APPRENTICE Primary Care Provide r Reason for Visit * Reason Onset Date Comments Medication Request 05/26/2023 Encounter Details Date Type Department Care Team (Late st Contact Info) Description 05/26/2023 Telephone [facility] Family & Internal Medicine [facility] [address] [place] [address] Marv Young, HAND CUTTER APPRENTICE [address] [facility] [place] [address] Medication Request Social History Tobacco [...] called she is scheduled for MRI in [place] on 06/13/23 9 am * Alejandra Zamudio LPN - 05/27/2023 10:11 AM CDT I called pt informed her the order for MRI in [place] was sent she can get it 06/12/23 [...] was going to order something else [facility] [phone] documented in this encounter Plan of Treatment Upcoming Encounters Date Type Department Care Team (Late st Contact Info) Description 02/12/2024 9:00 AM ESCROW MANAGER Appointment [facility] Outpatient Rehab [address] [place] [address] [place] [address] [place] [address] [place] [address] [place] [address] 02/12/2024 2:00 PM ESCROW MANAGER Appointment [facility] MRI [address] [place] [address] [place] [address] [place] [address] 02/16/2024 9:00 AM ESCROW MANAGER Appointment [facility] Outpatient Rehab [address] [place] [address] [place] [address] [place] [address] [place] [address] [place], [place] [address] 02/19/2024 8:45 AM ESCROW MANAGER Appointment [facility] Outpatient Rehab [address] [place] [address] [place] [address] [place] [address] [place] [address] [place], [place] [address] 02/19/2024 9:00 AM ESCROW MANAGER Appointment [facility] Outpatient Rehab [address] [place] [address] [place] [address] [place] [address] [place] [address] [place] [address] 02/23/2024 9:00 AM ESCROW MANAGER Appointment [facility] Outpatient Rehab [address] [place] [address] [place] [address] [place] [address] [place] [address] [place] [address] 02/24/2024 1:30 PM ESCROW MANAGER Appointment [facility] MRI [address] [place] [address] Ihsan Logan, [address] [place] [address] 02/26/2024 9:00 AM ESCROW MANAGER Appointment [facility] Outpatient Rehab [address] [place] [address] [place] [address] [place] [address] [place] [address] [place] [address] 02/26/2024 9:15 AM ESCROW MANAGER Appointment [facility] Outpatient Rehab [address] [place] [address] [place] [address] [place] [address] [place] [address] [place] [address] 03/01/2024 9:00 AM ESCROW MANAGER Appointment [facility] Outpatient Rehab [address] [place] [address] [place] [address] [place] [address] [place] [address] [place] [address] Lorene Branch, CENTRAL PROCESSING TECH 03/02/2024 12:27 PM ESCROW MANAGER Hospital Encounter [address] [address] [place] [address] [place] [address] 03/02/2024 12:27 PM ESCROW MANAGER - 03/02/2024 1:07 PM ESCROW MANAGER Surgery [facility] Surgery [address] [place] [address] [place] [address] [place] [address] MANIPULATION SHOULDER 03/05/2024 9:00 AM ESCROW MANAGER Appointment [facility] Outpatient Rehab [address] [place] [address] [place] [address] [place] [address] Lorene Branch, CENTRAL PROCESSING TECH 03/08/2024 9:00 AM ESCROW MANAGER Appointment [facility] [address] [place] [address] [place] [address] [place] [address] Lorene Branch, CENTRAL PROCESSING TECH 03/11/2024 9:15 AM ESCROW MANAGER Appointment [facility]hab [address] [place] [address] [place] [address] [place] [address] Lorene Branch, CENTRAL PROCESSING TECH 03/15/2024 9:00 AM ESCROW MANAGER Appointment [facility] [address] [place] [address] [place] [address] [place] [address] Lorene Branch, CENTRAL PROCESSING TECH 03/18/2024 9:15 AM ESCROW MANAGER Appointment [facility] [address] [place] [address] [place] [address] [place] [address] Lorene Branch, CENTRAL PROCESSING TECH 03/22/2024 9:00 AM ESCROW MANAGER Appointment [facility] [address] [place] [address] [place] [address] [place] [address] Lorene Branch, CENTRAL PROCESSING TECH 03/25/2024 9:15 AM ESCROW MANAGER Appointment [facility]hab [address] [place] [address] [place] [address] [place], [place] [id number] Jose Carlos Lorene L, CENTRAL PROCESSING TECH 04/21/2024 11:20 AM ESCROW MANAGER Office Visit [facility] Family & Internal Medicine - [facility] [address] [place] [address] [place] [address] [place], [place] [id number] Scheduled Procedures Name Priority Associated Diagnoses Date/Ti me MANIPULATION SHOULDER Adhesive capsulitis of left shoulder 03/02/2024 12:27 PM ESCROW MANAGER INJECTION JOINT Adhesive capsulitis of left shoulder 03/02/2024 12:27 PM ESCROW MANAGER documented as of this encounter Visit Diagnoses Not on filedocumented in this encounter Additional Health Concerns Assessment Noted Time PHQ-9 Depression Total Score: 5 03/18/19 2:22 PM ESCROW MANAGER documented as of this encounter Care Teams Rib Chopper Relationship Specialty Start Date End Date Marv Young NP PCP - General NURSE PRACTITIONER ADULT HEALTH 03/11/23 09/14/23 documented as of this encounter
--- OUTSIDE RECORDS SUMMARY | 2024-02-12 08:37 | XMS_ITS | Encounter Summary ---
Author Organization [facility] Address [facility]. [place], [place] [address] [place] [address] Care Team Providers Care Senior Lead Software Engineer Name Role Phone Marv Young NP Primary Care Provide r Brennon Flores MD Primary Care Provider [phone] Holger Soriano Primary Care Provider [phone] Encounter Details Date Type Department Care Team (Late st Contact Info) Description 05/29/2023 Care Management [facility] Family & Internal Medicine [address] [phone] Marv Young, GRACE [address] [place] [address] Dr. Cardozo [place] [phone] Social History Tobacco Use Types Packs/Day Years [...] st Contact Info) Description 02/12/2024 9:00 AM COUNTER MAKER Appointment [facility]hab [address] [place] [address] [place] [address] [place] [address] [place] [address] [place] [address] 02/12/2024 2:00 PM COUNTER MAKER Appointment [facility] [place] [address] [place] [address] [place] [address] [place] [address] 02/16/2024 9:00 AM COUNTER MAKER Appointment [facility] Outpatient Rehab [address] [place] [address] [place] [address] [place] [address] [place] [address] [place] [address] 02/19/2024 8:45 AM COUNTER MAKER Appointment [facility] Outpatient Rehab [address] [place] [address] [place] [address] [place] [address] [place] [address] [place] [address] 02/19/2024 9:00 AM COUNTER MAKER Appointment [facility] Outpatient Rehab [address] [place] [address] [place] [address] [place] [address] [place] [address] [place] [address] 02/23/2024 9:00 AM COUNTER MAKER [facility]ment [facility] [address] [place] [address] [place] [address] [place] [address] [place] [address] [place] [address] 02/24/2024 1:30 PM COUNTER MAKER Appointment [address] [address] [place] [address] [place] [address] 02/26/2024 9:00 AM COUNTER MAKER Appointment [facility]patient Rehab [address] [place] [address] [place] [address] [place] [address] [place] [address] [place] [address] 02/26/2024 9:15 AM COUNTER MAKER Appointment [facility]hab [address] [place] [address] [place] [address] [place] [address] [place] [address] [place] [address] 03/01/2024 9:00 AM COUNTER MAKER Appointment [facility] [address] [place] [address] [place] [address] [place] [address] [place] [address] [place] [address] Lorene Branch, VALVING MACHINE OPERATOR 03/02/2024 12:27 PM COUNTER MAKER Hospital Encounter [address] [address] [place] [address] [place] [address] 03/02/2024 12:27 PM COUNTER MAKER - 03/02/2024 1:07 PM [facility] Surgery [address] [address] [place] [address] [place] [address] MANIPULATION SHOULDER 03/05/2024 9:00 AM COUNTER MAKER Appointment [facility]hab [address] [place] [address] [place] [address] [place] [address] Lorene Branch, VALVING MACHINE OPERATOR 03/08/2024 9:00 AM COUNTER MAKER Appointment [facility] [address] [place] [address] [place] [address] [place] [address] Lorene Branch, VALVING MACHINE OPERATOR 03/11/2024 9:15 AM COUNTER MAKER Appointment [facility] [address] [place] [address] [place] [address] [place] [address] Lorene Branch, VALVING MACHINE OPERATOR 03/15/2024 9:00 AM COUNTER MAKER Appointment [facility] [address] [place] [address] [place] [address] [place] [address] Lorene Branch, VALVING MACHINE OPERATOR 03/18/2024 9:15 AM COUNTER MAKER Appointment [facility] [address] [place] [address] [place] [address] [place] [address] Lorene Branch, VALVING MACHINE OPERATOR 03/22/2024 9:00 AM COUNTER MAKER Appointment [facility] [address] [place] [address] [place] [address] [place] [address] Lorene Branch, VALVING MACHINE OPERATOR 03/25/2024 9:15 AM COUNTER MAKER Appointment [facility] [address] [place] [address] [place] [address] [place] [address] Jose Carlos Lroene CAROLA Kennedy 04/21/2024 11:20 AM COUNTER MAKER Office Visit [facility] Family & Internal Medicine [facility] [address] [place] [phone] [place] [address] [place] [address] Scheduled Procedures Name Priority Associated Diagnoses Date/Ti me MANIPULATION SHOULDER Adhesive capsulitis of left shoulder 03/02/2024 12:27 PM COUNTER MAKER INJECTION JOINT Adhesive capsulitis of left shoulder 03/02/2024 12:27 PM COUNTER MAKER documented as of this encounter Visit Diagnoses Diagnosis Strain of left biceps, initial encounter- Primary Adhesive capsulitis of left shoulder Adhesive capsulitis of shoulder documented in this encounter Additional Health Concerns Infection Onset Date Last Indicated Resolved Time COVID-19 Rule Out 10/17/2023 10/17/2023 10/17/2023 10:57 AM CDT COVID-19 Rule Out 12/29/2023 12/29/2023 12/29/2023 12:59 PM COUNTER MAKER Assessment Noted Time PHQ-9 Depression Total Score: 5 03/18/19 24 2:22 PM COUNTER MAKER documented as of this encounter Care Teams Senior Lead Software Engineer Relationship Specialty Start Date End Date Marv Young NP PCP - General NURSE PRACTITIONER ADULT HEALTH 03/11/23 09/14/23 [place] [id number] [address] PCP - General INTERNAL MEDICINE 09/15/23 09/15/23 [place] [address] [place] [address] PCP - General Physician [employer] 09/16/23 documented as of this encounter
--- OUTSIDE RECORDS SUMMARY | 2024-02-12 08:37 | XMS_ITS | Encounter Summary ---
Author Organization [facility] Address [facility] [address] [place] [address] Care Team Providers Care Pump And Still Operator Name Role Phone Marv Quiroga NP Primary [...] Expiration Date Visits Re quested Visits Authorized [id number] Closed 06/02/2023 06/01/2024 1 1 Reason for Visit * Imaging (Urgent) - Closed Specialty Diagnoses / Procedures Referred By Shmuel angel Referred To Contact RADIOLOGY Diagnoses Strain of left biceps, initial encounter Tendinopathy of left biceps tendon Procedures MRI HUMERUS LT WO CON Marv Quiroga NP Phone: tel: fax: Referral ID Status Reason Start Date Expiration Date Visits Re quested Visits Authorized [id number] Closed 06/02/2023 06/01/2024 1 1 Encounter Details Date Type Department Care Team (Latest Contact Info) Description 06/04/2023 2:34 PM CDT - 06/04/2023 11:59 PM CDT Hospital Encounter [facility] [address] [place] [address] Marv Quiroga, SKULL CHOPPER [address] [place] [address] Discharge Disposition: Home or Self [...] MG tabletIndications :Bipolar I disorder with depression ([facility] H[facility]/HCC) Take 1 tablet (100 mg total) by mouth nightly at bedtime. 90 tablet 03/18/2023 4 semaglutide (OZEMPIC) 1 mg/dose injection (PEN)Indications: Type 2 diabetes mellitus without complication, with long-term current use of insulin ([facility]) Inject 1 [...] st Contact Info) Description 02/12/2024 9:00 AM SHORER Appointment [facility] Outpatient Rehab [address] [place] [address] [place] [address] [place] [address] [place] [address] [place] [address] 02/12/2024 2:00 PM SHORER Appointment [facility] [place] [address] [place] [address] [place] [address] [place] [address] 02/16/2024 9:00 AM SHORER Appointment [facility] Outpatient Rehab [address] [place] [address] [place] [address] [place] [address] [place] [address] [place] [address] 02/19/2024 8:45 AM SHORER Appointment [facility] Outpatient Rehab [address] [place] [address] [place] [address] [place] [address] [place] [address] [place] [address] 02/19/2024 9:00 AM SHORER Appointment [facility] Outpatient Rehab [address] [place] [address] [place] [address] [place] [address] [place] [address] [place] [address] 02/23/2024 9:00 AM SHORER Appointment [facility] Outpatient Rehab [address] [place] [address] [place] [address] [place] [address] [place] [address] [place] [address] 02/24/2024 1:30 PM SHORER Appointment [facility] MRI [address] [place] [address] [place] [address] [place] [address] 02/26/2024 9:00 AM SHORER Appointment [facility] Outpatient Rehab [address] [place] [address] [place] [address] [place] [address] [place] [address] [place] [address] 02/26/2024 9:15 AM SHORER Appointment [facility] Outpatient Rehab [address] [place] [address] [place] [address] [place] [address] [place] [address] [place] [address] 03/01/2024 9:00 AM SHORER Appointment [facility] Outpatient Rehab [address] [place] [address] [place] [address] [place] [address] [place] [address] [place] [address] Lorene Branch, SECURITY FLEX OFFICER 03/02/2024 12:27 PM SHORER Hospital Encounter [facility] [address] [place] [address] [place] [address] [place] [address] 03/02/2024 12:27 PM SHORER - 03/02/2024 1:07 PM SHORER Surgery [facility] [address] [place] [address] Ihsan Logan, [address] [place] [address] MANIPULATION SHOULDER 03/05/2024 9:00 AM SHORER Appointment [facility] Outpatient Rehab [address] [place] [address] [place] [address] [place] [address] Lorene Branch, SECURITY FLEX OFFICER 03/08/2024 9:00 AM SHORER Appointment [facility] Outpatient [facility]hab [address] [place] [address] [place] [address] [place] [address] Lorene Branch, SECURITY FLEX OFFICER 03/11/2024 9:15 AM SHORER Appointment [facility]patient [facility]hab [address] [place] [address] [place] [address] [place] [address] Lorene Branch, SECURITY FLEX OFFICER 03/15/2024 9:00 AM SHORER Appointment [facility] Outpatient [facility]hab [address] [place] [address] [place] [address] [place] [address] Lorene Branch, SECURITY FLEX OFFICER 03/18/2024 9:15 AM SHORER Appointment [facility] Outpatient [facility]hab [address] [place] [address] [place] [address] [place] [address] Lorene Branch, SECURITY FLEX OFFICER 03/22/2024 9:00 AM SHORER Appointment [facility] Outpatient Rehab [address] [place] [address] [place] [address] [place] [address] Lorene Branch, SECURITY FLEX OFFICER 03/25/2024 9:15 AM SHORER Appointment [facility] Outpatient Rehab [address] [place] [address] [place] [address] [place] [address] Lorene Branch, SECURITY FLEX OFFICER 04/21/2024 11:20 AM SHORER Office Visit [facility] Family & Internal Medicine - [place] [id number] [place] [phone] Holger Soriano, TYLER [address] [place] [address] Scheduled Procedures Name Priority Associated Diagnoses Date/Ti me MANIPULATION SHOULDER Adhesive capsulitis of left shoulder 03/02/2024 12:27 PM SHORER INJECTION JOINT Adhesive capsulitis of left shoulder 03/02/2024 12:27 PM SHORER documented as of this encounter Procedures Procedure [...] joint effusion at the edge of the dtzbj-ey-kjuc. This examination is not a detailed evaluation [...] extremity. FINDINGS: At the edge of the uzzqw-ix-heoz, there is a joint effusion of the [...] extremity. FINDINGS: At the edge of the [id number]-[id number]-ydnr, there is a joint effusion of theglenohumeral [...] joint effusion at the edge of the egupg-vj-elll. Thisexamination is not a detailed evaluation of [...] Total Score: 5 03/18/19 24 2:22 PM SHORER documented as of this encounter Care Teams Pump And Still Operator Relationship Specialty Start Date End Date Marv Quiroga NP PCP - General NURSE PRACTITIONER ADULT HEALTH 03/11/23 09/14/23 documented as of this encounter
--- OUTSIDE RECORDS SUMMARY | 2024-02-12 08:37 | XMS_ITS | Encounter Summary ---
Author Organization [facility] Address [facility] [place] [address] [place] [address] Care Team Providers Care Drawing Press Operator Name Role Phone Marv Young NP [...] st Contact Info) Description 02/12/2024 9:00 AM NAIL GALVANIZER Appointment [facility] Outpatient Rehab [address] [place], [place] [address] [place] [address] [place], [place] [address] [place] [address] [place] [address] 02/12/2024 2:00 PM NAIL GALVANIZER Appointment [facility] MRI [address] [place] [address] [place] [address] [place] [address] 02/16/2024 9:00 AM NAIL GALVANIZER Appointment [facility] Outpatient Rehab [address] [place] [address] [place] [address] [place] [address] [place] [address] [place] [address] 02/19/2024 8:45 AM NAIL GALVANIZER Appointment [facility] Outpatient Rehab [address] [place] [address] [place] [address] [place] [address] [place] [address] [place] [address] 02/19/2024 9:00 AM NAIL GALVANIZER Appointment [facility] Outpatient Rehab [address] [place] [address] [place] [address] [place] [address] [place] [address] [place] [address] 02/23/2024 9:00 AM NAIL GALVANIZER Appointment [facility] Outpatient Rehab [address] [place] [address] [place] [address] [place] [address] [place] [address] [place] [address] 02/24/2024 1:30 PM NAIL GALVANIZER Appointment [facility] [address] [place] [address] [place] [address] [place] [address] 02/26/2024 9:00 AM NAIL GALVANIZER Appointment [facility] Outpatient Rehab [address] [place] [address] [place] [address] [place] [address] [place] [address] [place] [address] 02/26/2024 9:15 AM NAIL GALVANIZER Appointment [facility] Outpatient Rehab [address] [place] [address] [place] [address] [place] [address] [place] [address] [place] [address] 03/01/2024 9:00 AM NAIL GALVANIZER Appointment [facility] Outpatient Rehab [address] [place] [address] [place] [address] [place] [address] [place] [address] [place] [address] Lorene Branch, PHYSICIAN ASST 03/02/2024 12:27 PM NAIL GALVANIZER Hospital Encounter [facility] [address] [place] [address] [place] [address] [place] [address] 03/02/2024 12:27 PM NAIL GALVANIZER - 03/02/2024 1:07 PM NAIL GALVANIZER Surgery [address] [address] [place] [address] [place] [address] MANIPULATION SHOULDER 03/05/2024 9:00 AM NAIL GALVANIZER Appointment [facility] Outpatient Rehab [address] [place] [address] [place] [address] [place] [address] Lorene Branch, PHYSICIAN ASST 03/08/2024 9:00 AM NAIL GALVANIZER Appointment [facility] Outpatient Rehab [address] [place] [address] [place] [address] [place] [address] Lorene Branch, PHYSICIAN ASST 03/11/2024 9:15 AM NAIL GALVANIZER Appointment [facility] Outpatient Rehab [address] [place] [address] [place] [address] [place] [address] Lorene Branch, PHYSICIAN ASST 03/15/2024 9:00 AM NAIL GALVANIZER Appointment [facility] Outpatient Rehab [address] [place] [address] [place] [address] [place] [address] Lorene Branch, PHYSICIAN ASST 03/18/2024 9:15 AM NAIL GALVANIZER Appointment [facility] Outpatient Rehab [address] [place] [address] [place] [address] [place] [address] Lorene Branch, PHYSICIAN ASST 03/22/2024 9:00 AM NAIL GALVANIZER Appointment [facility] Outpatient Rehab [address] [place] [address] [place] [address] [place] [address] Lorene Branch, PHYSICIAN ASST 03/25/2024 9:15 AM NAIL GALVANIZER Appointment [facility] Outpatient Rehab [address] [place] [address] [place] [address] [place] [address] Lorene Branch, PHYSICIAN ASST 04/21/2024 11:20 AM NAIL GALVANIZER Office Visit [facility] Group Family & Internal Medicine [address] [phone] [place] [address] [place] [address] Scheduled Procedures Name Priority Associated Diagnoses Date/Ti me MANIPULATION SHOULDER Adhesive capsulitis of left shoulder 03/02/2024 12:27 PM NAIL GALVANIZER INJECTION JOINT Adhesive capsulitis of left shoulder 03/02/2024 12:27 PM NAIL GALVANIZER documented as of this encounter Visit Diagnoses Not on filedocumented in this encounter Additional Health Concerns Assessment Noted Time PHQ-9 Depression Total Score: 5 03/18/19 24 2:22 PM NAIL GALVANIZER documented as of this encounter Care Teams Drawing Press Operator Relationship Specialty Start Date End Date Marv Young NP PCP - General NURSE PRACTITIONER ADULT HEALTH 03/11/23 09/14/23 documented as of this encounter
--- OUTSIDE RECORDS SUMMARY | 2024-02-12 08:37 | XMS_ITS | Encounter Summary ---
Author Organization [facility] Address [facility] [place] [address] [place] [address] Care Team Providers Care Senior Water Resources Engineer Name Role Phone Marv Young BOILER CLEANER Primary Care Provide r Reason for Visit * Reason Onset Date Comments Medication Request 06/04/2023 FYI Information 06/04/2023 Encounter Details Date Type Department Care Team (Late st Contact Info) Description 06/04/2023 Telephone [facility] Family & Internal Medicine [facility] [address] [place] [phone] Marv Young, BOILER CLEANER [address] [place] [address] [place] [address] Medication Request (); Information Social [...] st Contact Info) Description 02/12/2024 9:00 AM COMPENSATION ADJUSTER Appointment [facility] [address] [place] [address] [place] [address] [place] [address] [place] [address] [place] [address] 02/12/2024 2:00 PM COMPENSATION ADJUSTER [facility]ment [facility] [address] [place] [address] [place] [address] [place] [address] 02/16/2024 9:00 AM COMPENSATION ADJUSTER Appointment [facility] [address] [place] [address] [place] [address] [place] [address] [place] [address] [place] [address] 02/19/2024 8:45 AM COMPENSATION ADJUSTER Appointment [facility] [address] [place] [address] [place] [address] [place] [address] [place] [address] [place] [address] 02/19/2024 9:00 AM COMPENSATION ADJUSTER Appointment [facility] [address] [place] [address] [place] [address] [place] [address] [place] [address] [place] [address] 02/23/2024 9:00 AM COMPENSATION ADJUSTER Appointment [facility] [address] [place] [address] [place] [address] [place] [address] [place] [address] [place] [address] 02/24/2024 1:30 PM COMPENSATION ADJUSTER Appointment [facility] [address] [place] [address] [place] [address] [place] [address] 02/26/2024 9:00 AM COMPENSATION ADJUSTER Appointment [facility] [address] [place] [address] [place] [address] [place] [address] [place] [address] [place] [address] 02/26/2024 9:15 AM COMPENSATION ADJUSTER Appointment [facility] [address] [place] [address] [place] [address] [place] [address] [place] [address] [place] [address] 03/01/2024 9:00 AM COMPENSATION ADJUSTER Appointment [facility] [address] [place] [address] [place] [address] [place] [address] [place] [address] [place] [address] Lorene Branch, FRONT END MECHANIC 03/02/2024 12:27 PM COMPENSATION ADJUSTER Hospital Encounter [facility] [address] [place] [address] [place] [address] [place] [address] 03/02/2024 12:27 PM COMPENSATION ADJUSTER - 03/02/2024 1:07 PM COMPENSATION ADJUSTER Surgery [facility] [address] [place] [address] [place] [address] [place] [address] MANIPULATION SHOULDER 03/05/2024 9:00 AM COMPENSATION ADJUSTER Appointment [facility] [address] [place] [address] [place] [address] [place] [address] Lorene Branch, FRONT END MECHANIC 03/08/2024 9:00 AM COMPENSATION ADJUSTER Appointment [facility] [address] [place] [address] [place] [address] [place] [address] Lorene Branch, FRONT END MECHANIC 03/11/2024 9:15 AM COMPENSATION ADJUSTER Appointment [facility] [address] [place] [address] [place] [address] [place] [address] Lorene Branch, FRONT END MECHANIC 03/15/2024 9:00 AM COMPENSATION ADJUSTER Appointment [facility] [address] [place] [address] [place] [address] [place] [address] Lorene Branch, FRONT END MECHANIC 03/18/2024 9:15 AM COMPENSATION ADJUSTER Appointment [facility] [address] [place] [address] [place] [address] [place] [address] Lorene Branch, FRONT END MECHANIC 03/22/2024 9:00 AM COMPENSATION ADJUSTER Appointment [facility] [address] [place] [address] [place] [address] [place], [place] [address] Lorene Branch, FRONT END MECHANIC 03/25/2024 9:15 AM COMPENSATION ADJUSTER Appointment [facility] [address] [place] [address] [place] [address] [place], [place] [address] Lorene Branch, FRONT END MECHANIC 04/21/2024 11:20 AM COMPENSATION ADJUSTER Office Visit [facility] Group Family & Internal Medicine [facility] [address] [place] [phone] [place] [address] [place] [address] Scheduled Procedures Name Priority Associated Diagnoses Date/Ti me MANIPULATION SHOULDER Adhesive capsulitis of left shoulder 03/02/2024 12:27 PM COMPENSATION ADJUSTER INJECTION JOINT Adhesive capsulitis of left shoulder 03/02/2024 12:27 PM COMPENSATION ADJUSTER documented as of this encounter Visit Diagnoses Not on filedocumented in this encounter Additional Health Concerns Assessment Noted Time PHQ-9 Depression Total Score: 5 03/18/19 2:22 PM COMPENSATION ADJUSTER documented as of this encounter Care Teams Senior Water Resources Engineer Relationship Specialty Start Date End Date Marv Young NP PCP - General NURSE PRACTITIONER ADULT HEALTH 03/11/23 09/14/23 documented as of this encounter
--- OUTSIDE RECORDS SUMMARY | 2024-02-12 08:37 | XMS_ITS | Encounter Summary ---
Author Organization [facility] Address [facility] [place] [address] [place] [address] Care Team Providers Care Medical Physics Professor Name Role Phone Marv Young NP Primary Care Provide r Encounter Details Date Type Department Care Team (Late st Contact Info) Description 06/09/2023 Care Management [facility] Family & Internal Medicine [address] [address] Marv Young, GRACE [address] [facility] [place] [address] Social History Tobacco Use Types [...] st Contact Info) Description 02/12/2024 9:00 AM HISTORICAL GUIDE Appoint[address] [facility] [address] [place] [address] [place] [address] [place] [address] [place] [address] [place] [address] 02/12/2024 2:00 PM HISTORICAL GUIDE Appointment [facility] [address] [place] [address] [place] [address] [place] [address] 02/16/2024 9:00 AM HISTORICAL GUIDE Appointment [facility] [address] [place] [address] [place] [address] [place] [address] [place] [address] [place] [address] 02/19/2024 8:45 AM HISTORICAL GUIDE Appointment [facility] [address] [place] [address] [place] [address] [place] [address] [place] [address] [place] [address] 02/19/2024 9:00 AM HISTORICAL GUIDE Appointment [facility] [address] [place] [address] [place] [address] [place] [address] [place] [address] [place] [address] 02/23/2024 9:00 AM HISTORICAL GUIDE Appointment [facility] [address] [place] [address] [place] [address] [place] [address] [place] [address] [place] [address] 02/24/2024 1:30 PM HISTORICAL GUIDE Appointment [address] [address] Ihsan Logan, [address] [place] [address] 02/26/2024 9:00 AM HISTORICAL GUIDE Appointment [facility] [address] [place] [address] [place] [address] [place] [address] [place] [address] [place] [address] 02/26/2024 9:15 AM HISTORICAL GUIDE Appointment [facility] [address] [place] [address] [place] [address] [place] [address] [place] [address] [place] [address] 03/01/2024 9:00 AM HISTORICAL GUIDE Appointment [facility] [address] [place] [address] [place] [address] [place] [address] [place] [address] [place], [place] [id number] Lorene Branch, INSTALLER INSPECTOR FINAL 03/02/2024 12:27 PM HISTORICAL GUIDE Hospital Encounter [address] [address] [place] [address] [place] [address] 03/02/2024 12:27 PM HISTORICAL GUIDE - 03/02/2024 1:07 PM HISTORICAL GUIDE Surgery [facility] Surgery [address] [place] [address] [place] [address] [place] [address] MANIPULATION SHOULDER 03/05/2024 9:00 AM HISTORICAL GUIDE Appointment [facility] [address] [place] [address] [place] [address] [place] [address] Lorene Branch, INSTALLER INSPECTOR FINAL 03/08/2024 9:00 AM HISTORICAL GUIDE Appointment [facility] [address] [place] [address] [place] [address] [place] [address] Lorene Branch, INSTALLER INSPECTOR FINAL 03/11/2024 9:15 AM HISTORICAL GUIDE Appointment [facility] [address] [place] [address] [place] [address] [place] [address] Lorene Branch, INSTALLER INSPECTOR FINAL 03/15/2024 9:00 AM HISTORICAL GUIDE Appointment [facility] [address] [place] [address] [place] [address] [place] [address] Lorene Branch, INSTALLER INSPECTOR FINAL 03/18/2024 9:15 AM HISTORICAL GUIDE Appointment [facility] [address] [place] [address] [place] [address] [place] [address] Lorene Branch, INSTALLER INSPECTOR FINAL 03/22/2024 9:00 AM HISTORICAL GUIDE Appointment [facility] [address] [place] [address] [place] [address] [place] [address] Lorene Branch, INSTALLER INSPECTOR FINAL 03/25/2024 9:15 AM HISTORICAL GUIDE Appointment [facility] [address] [place], [place] [address] [place] [address] [place] [id number] Lorene Branch, INSTALLER INSPECTOR FINAL 04/21/2024 11:20 AM HISTORICAL GUIDE Office Visit [facility] Family & Internal Medicine [facility] [address] [place] [address] [place] [address] [place] [address] Scheduled Procedures Name Priority Associated Diagnoses Date/Ti me MANIPULATION SHOULDER Adhesive capsulitis of left shoulder 03/02/2024 12:27 PM HISTORICAL GUIDE INJECTION JOINT Adhesive capsulitis of left shoulder 03/02/2024 12:27 PM HISTORICAL GUIDE documented as of this encounter Visit Diagnoses Diagnosis Tendinopathy of left biceps tendon Muscle strain of left upper arm, sequela Adhesive capsulitis of left shoulder Adhesive capsulitis of shoulder documented in this encounter Additional Health Concerns Assessment Noted Time PHQ-9 Depression Total Score: 5 03/18/19 24 2:22 PM HISTORICAL GUIDE documented as of this encounter Care Teams Medical Physics Professor Relationship Specialty Start Date End Date Marv Young NP PCP - General NURSE PRACTITIONER ADULT HEALTH 03/11/23 09/14/23 documented as of this encounter
--- OUTSIDE RECORDS SUMMARY | 2024-02-12 08:37 | XMS_ITS | Encounter Summary ---
Author Organization [facility] Address [facility] [place] [address] [place] [address] Care Team Providers Care Nut Sorter Name Role Phone Marv Young WOOD FLOORING SPECIALIST Primary Care Provide r Encounter Details Date Type Department Care Team (Late st Contact Info) Description 05/27/2023 Medication Management [facility] Family & Internal Medicine [address] [address] Marv Young, WOOD FLOORING SPECIALIST [address] [facility] [place] [address] Social History Tobacco Use Types [...] st Contact Info) Description 02/12/2024 9:00 AM CIVIL STRUCTURAL DESIGNER Appointment [facility] [id number] [place] [address] [place] [address] [place] [address] [place] [address] [place] [address] 02/12/2024 2:00 PM CIVIL STRUCTURAL DESIGNER Appointment [facility] [address] [place] [address] [place] [address] [place] [address] 02/16/2024 9:00 AM CIVIL STRUCTURAL DESIGNER Appointment [facility] [address] [place] [address] [place] [address] [place] [address] [place] [address] [place] [address] 02/19/2024 8:45 AM CIVIL STRUCTURAL DESIGNER Appointment [facility] [address] [place] [address] [place] [address] [place] [address] [place] [address] [place] [address] 02/19/2024 9:00 AM CIVIL STRUCTURAL DESIGNER Appointment [facility] [address] [place] [address] [place] [address] [place] [address] [place] [address] [place] [address] 02/23/2024 9:00 AM CIVIL STRUCTURAL DESIGNER Appointment [facility] [address] [place] [address] [place] [address] [place] [address] [place] [address] [place] [address] 02/24/2024 1:30 PM CIVIL STRUCTURAL DESIGNER Appointment [address] [address] Ihsan Logan, [address] [place] [address] 02/26/2024 9:00 AM CIVIL STRUCTURAL DESIGNER Appointment [facility] [address] [place] [address] [place] [address] [place] [address] [place] [address] [place] [address] 02/26/2024 9:15 AM CIVIL STRUCTURAL DESIGNER Appointment [facility] [address] [place] [address] [place] [address] [place] [address] [place] [address] [place] [address] 03/01/2024 9:00 AM CIVIL STRUCTURAL DESIGNER Appointment [facility] [address] [place] [address] [place] [address] [place] [address] [place] [address] [place] [address] Lorene Branch, DIRECTOR OF INSTRUCTIONAL TECHNOLOGY 03/02/2024 12:27 PM CIVIL STRUCTURAL DESIGNER Hospital Encounter [facility] Surgery [address] [place] [address] [place] [address] [place] [address] 03/02/2024 12:27 PM CIVIL STRUCTURAL DESIGNER - 03/02/2024 1:07 PM CIVIL STRUCTURAL DESIGNER Surgery [facility] Surgery [address] [place] [address] [place] [address] [place] [address] MANIPULATION SHOULDER 03/05/2024 9:00 AM CIVIL STRUCTURAL DESIGNER Appointment [facility] [address] [place] [address] [place] [address] [place] [address] Lorene Branch, DIRECTOR OF INSTRUCTIONAL TECHNOLOGY 03/08/2024 9:00 AM CIVIL STRUCTURAL DESIGNER Appointment [facility] [address] [place] [address] [place] [address] [place] [address] Lorene Branch, DIRECTOR OF INSTRUCTIONAL TECHNOLOGY 03/11/2024 9:15 AM CIVIL STRUCTURAL DESIGNER Appointment [facility] [address] [place] [address] [place] [address] [place] [address] Lorene Branch, DIRECTOR OF INSTRUCTIONAL TECHNOLOGY 03/15/2024 9:00 AM CIVIL STRUCTURAL DESIGNER Appointment [facility] [address] [place] [address] [place] [address] [place] [address] Lorene Branch, DIRECTOR OF INSTRUCTIONAL TECHNOLOGY 03/18/2024 9:15 AM CIVIL STRUCTURAL DESIGNER Appointment [facility] [address] [place] [address] [place] [address] [place] [address] Lorene Branch, DIRECTOR OF INSTRUCTIONAL TECHNOLOGY 03/22/2024 9:00 AM CIVIL STRUCTURAL DESIGNER Appointment [facility] [address] [place] [address] [place] [address] [place] [address] Lorene Branch, DIRECTOR OF INSTRUCTIONAL TECHNOLOGY 03/25/2024 9:15 AM CIVIL STRUCTURAL DESIGNER Appointment [facility] [address] [place] [address] [place] [address] [place] [address] Lorene Branch, DIRECTOR OF INSTRUCTIONAL TECHNOLOGY 04/21/2024 11:20 AM CIVIL STRUCTURAL DESIGNER Office Visit [facility] Family & Internal Medicine [facility] [address] [place] [address] [place] [address] [place] [address] Scheduled Procedures Name Priority Associated Diagnoses Date/Ti me MANIPULATION SHOULDER Adhesive capsulitis of left shoulder 03/02/2024 12:27 PM CIVIL STRUCTURAL DESIGNER INJECTION JOINT Adhesive capsulitis of left shoulder 03/02/2024 12:27 PM CIVIL STRUCTURAL DESIGNER documented as of this encounter Visit Diagnoses Diagnosis Tendinopathy of left biceps tendon- Primary Muscle strain of left upper arm, sequela Adhesive capsulitis of left shoulder Adhesive capsulitis of shoulder documented in this encounter Additional Health Concerns Assessment Noted Time PHQ-9 Depression Total Score: 5 03/18/19 24 2:22 PM CIVIL STRUCTURAL DESIGNER documented as of this encounter Care Teams Nut Sorter Relationship Specialty Start Date End Date Marv Young NP PCP - General NURSE PRACTITIONER ADULT HEALTH 03/11/23 09/14/23 documented as of this encounter
--- OUTSIDE RECORDS SUMMARY | 2024-02-12 08:37 | XMS_ITS | Encounter Summary ---
Author Organization [facility] Address [facility] [address] [place] [address] Care Team Providers Care Marketing Secretary Name Role Phone Marv Young ROLLER PRINTING SUPERVISOR Primary Care Provide r Reason for Visit * Reason Onset Date Comments Medication 06/09/2023 Encounter Details Date Type Department Care Team (Late st Contact Info) Description 06/09/2023 Telephone [facility] Family & Internal Medicine [facility] [address] [place] [address] Marv Young, ROLLER PRINTING SUPERVISOR [address] [place] [address] [place] [address] Medication Social History Tobacco Use [...] checking on medication. One medication went to [facility] and the other went to [facility]. She has now headed home to [place], can those medications be sent to [facility] in [place]. [facility]. Questions please call [facility]. documented in this encounter Plan of Treatment Upcoming Encounters Date Type Department Care Team (Late st Contact Info) Description 02/12/2024 9:00 AM CABLE MAINTAINER Appointment [facility] [address] [place] [address] [place] [address] [place] [address] [place] [address] [place] [address] 02/12/2024 2:00 PM CABLE MAINTAINER Appointment [facility] [address] [place] [address] [place] [address] [place] [address] 02/16/2024 9:00 AM CABLE MAINTAINER Appointment [facility] [address] [place] [address] [place] [address] [place] [address] [place] [address] [place] [address] 02/19/2024 8:45 AM CABLE MAINTAINER Appointment [facility] [address] [place] [address] [place] [address] [place] [address] [place] [address] [place] [address] 02/19/2024 9:00 AM CABLE MAINTAINER Appointment [facility] [address] [place] [address] [place] [address] [place] [address] [place] [address] [place] [address] 02/23/2024 9:00 AM CABLE MAINTAINER Appointment [facility] [address] [place] [address] [place] [address] [place] [address] [place] [address] [place] [address] 02/24/2024 1:30 PM CABLE MAINTAINER Appointment [address] [address] [place] [address] [place] [address] 02/26/2024 9:00 AM CABLE MAINTAINER Appointment [facility] [address] [place] [address] [place] [address] [place] [address] [place] [address] [place] [address] 02/26/2024 9:15 AM CABLE MAINTAINER Appointment [facility] [address] [place] [address] [place] [address] [place] [address] [place] [address] [place] [address] 03/01/2024 9:00 AM CABLE MAINTAINER Appointment [facility] [address] [place] [address] [place] [address] [place] [address] [place] [address] [place] [address] Lorene Branch, ACCOUNT REPRESENTATIVE 03/02/2024 12:27 PM CABLE MAINTAINER Hospital Encounter [address] [address] [place] [address] [place] [address] 03/02/2024 12:27 PM CABLE MAINTAINER - 03/02/2024 1:07 PM CABLE MAINTAINER Surgery [facility] Surgery [address] [place] [address] [place] [address] [place] [address] [place] [address] MANIPULATION SHOULDER 03/05/2024 9:00 AM CABLE MAINTAINER Appointment [facility] [address] [place] [address] [place] [address] [place] [address] Lorene Branch, ACCOUNT REPRESENTATIVE 03/08/2024 9:00 AM CABLE MAINTAINER Appointment [facility] [address] [place] [address] [place] [address] [place] [address] Lorene Branch, ACCOUNT REPRESENTATIVE 03/11/2024 9:15 AM CABLE MAINTAINER Appointment [facility] [address] [place] [address] [place] [address] [place] [address] Lorene Branch, ACCOUNT REPRESENTATIVE 03/15/2024 9:00 AM CABLE MAINTAINER Appointment [facility] [address] [place] [address] [place] [address] [place] [address] Lorene Branch, ACCOUNT REPRESENTATIVE 03/18/2024 9:15 AM CABLE MAINTAINER Appointment [facility] [address] [place] [address] [place] [address] [place] [address] Lorene Branch, ACCOUNT REPRESENTATIVE 03/22/2024 9:00 AM CABLE MAINTAINER Appointment [facility] [address] [place] [address] [place] [address] [place], [place] [id number] Jose Carlos Lorene L, ACCOUNT REPRESENTATIVE 03/25/2024 9:15 AM CABLE MAINTAINER Appointment [facility] [address] [place] [address] [place] [address] [place] [address] Lorene Branch, ACCOUNT REPRESENTATIVE 04/21/2024 11:20 AM CABLE MAINTAINER Office Visit [facility] Group Family & Internal Medicine [facility] [address] [place] [address] [place] [address] [place] [address] Scheduled Procedures Name Priority Associated Diagnoses Date/Ti me MANIPULATION SHOULDER Adhesive capsulitis of left shoulder 03/02/2024 12:27 PM CABLE MAINTAINER INJECTION JOINT Adhesive capsulitis of left shoulder 03/02/2024 12:27 PM CABLE MAINTAINER documented as of this encounter Visit Diagnoses Not on filedocumented in this encounter Additional Health Concerns Assessment Noted Time PHQ-9 Depression Total Score: 5 03/18/19 24 2:22 PM CABLE MAINTAINER documented as of this encounter Care Teams Marketing Secretary Relationship Specialty Start Date End Date Marv Young NP PCP - General NURSE PRACTITIONER ADULT HEALTH 03/11/23 09/14/23 documented as of this encounter
--- OUTSIDE RECORDS SUMMARY | 2024-02-12 08:37 | XMS_ITS | Encounter Summary ---
Author Organization [facility] Address [facility] [place] [address] [place] [address] Care Team Providers Care Optical Brightener Maker Helper Name Role Phone Jorge Quiroga NP Primary [...] Expiration Date Visits Re quested Visits Authorized [id number] Closed 06/02/2023 06/01/2024 1 1 Reason for Visit * Reason Onset Date Comments Orders 05/26/2023 Encounter Details Date Type Department Care Team (Late st Contact Info) Description 05/26/2023 Telephone [facility] Medical Group Family & Internal Medicine [address] [address] Jorge Quiroga, GRACE [address] [place] [address] [place] [address] Orders Social History Tobacco Use [...] Order will need to be changed to [place]. She is asking if this can be done soon as they can not hold the appointment time and will only schedule when they receive new order. documented in this encounter Plan of Treatment Upcoming Encounters Date Type Department Care Team (Late st Contact Info) Description 02/12/2024 9:00 AM LAB ENGINEER [address]oint[address] [facility] [address] [place] [address] [place] [address] [place] [address] [place] [address] [place] [address] 02/12/2024 2:00 PM LAB ENGINEER Appointment [facility] [place] [address] [place] [address] [place] [address] [place] [address] 02/16/2024 9:00 AM LAB ENGINEER Appointment [facility] Outpatient Rehab [address] [place] [address] [place] [address] [place] [address] [place] [address] [place] [address] 02/19/2024 8:45 AM LAB ENGINEER Appointment [facility] Outpatient Rehab [address] [place] [address] [place] [address] [place] [address] [place] [address] [place] [address] 02/19/2024 9:00 AM LAB ENGINEER Appointment [facility] Outpatient Rehab [address] [place] [address] [place] [address] [place] [address] [place] [address] [place] [address] 02/23/2024 9:00 AM LAB ENGINEER Appointment [facility]patient Rehab [address] [place] [address] [place] [address] [place] [address] [place] [address] [place] [address] 02/24/2024 1:30 PM LAB ENGINEER Appointment [address] [address] [place] [address] [place] [address] 02/26/2024 9:00 AM LAB ENGINEER Appointment [facility] Outpatient Rehab [address] [place] [address] [place] [address] [place] [address] [place] [address] [place] [address] 02/26/2024 9:15 AM LAB ENGINEER Appointment [facility] Outpatient Rehab [address] [place] [address] [place] [address] [place] [address] [place] [address] [place] [address] 03/01/2024 9:00 AM LAB ENGINEER Appointment [facility] Outpatient [facility]hab [address] [place] [address] [place] [address] [place] [address] [place] [address] [place] [address] Lorene Branch, DIETARY CLERK 03/02/2024 12:27 PM LAB ENGINEER Hospital Encounter [facility] Surgery [address] [place] [address] [place] [address] [place] [address] 03/02/2024 12:27 PM LAB ENGINEER - 03/02/2024 1:07 PM LAB ENGINEER Surgery [facility] Surgery [address] [place] [address] [place] [address] [place] [address] MANIPULATION SHOULDER 03/05/2024 9:00 AM LAB ENGINEER Appointment [facility] Outpatient Rehab [address] [place] [address] [place] [address] [place] [address] Lorene Branch, DIETARY CLERK 03/08/2024 9:00 AM LAB ENGINEER Appointment [facility] Outpatient Rehab [address] [place] [address] [place] [address] [place] [address] Lorene Branch, DIETARY CLERK 03/11/2024 9:15 AM LAB ENGINEER Appointment [facility] Outpatient Rehab [address] [place] [address] [place] [address] [place] [address] Lorene Branch, DIETARY CLERK 03/15/2024 9:00 AM LAB ENGINEER Appointment [facility] Outpatient Rehab [address] [place] [address] [place] [address] [place] [address] Lorene Branch, DIETARY CLERK 03/18/2024 9:15 AM LAB ENGINEER Appointment [facility] Outpatient [facility]hab [address] [place] [address] [place] [address] [place] [address] Lorene Branch, DIETARY CLERK 03/22/2024 9:00 AM LAB ENGINEER Appointment [facility] Outpatient Rehab [address] [place] [address] [place] [address] [place] [address] Lorene Branch, DIETARY CLERK 03/25/2024 9:15 AM LAB ENGINEER Appointment [facility] Outpatient [facility]hab [address] [place] [address] [place] [address] [place] [address] Lorene Branch, CAROLA 04/21/2024 11:20 AM LAB ENGINEER Office Visit [facility] Medical Group Family & Internal Medicine [facility] [address] [place] [address] [place] [address] [place], [place] [id number] Scheduled Procedures Name Priority Associated Diagnoses Date/Ti me MANIPULATION SHOULDER Adhesive capsulitis of left shoulder 03/02/2024 12:27 PM LAB ENGINEER INJECTION JOINT Adhesive capsulitis of left shoulder 03/02/2024 12:27 PM LAB ENGINEER documented as of this encounter Results [...] joint effusion at the edge of the uvygi-ab-kuze. This examination is not a detailed evaluation [...] extremity. FINDINGS: At the edge of the vbsig-hq-jwzv, there is a joint effusion of the [...] extremity. FINDINGS: At the edge of the gvrxf-wm-eley, there is a joint effusion of theglenohumeral [...] joint effusion at the edge of the bgmvo-tl-tvuz. Thisexamination is not a detailed evaluation of the shoulder or elbow. Ordered By: JORGE QUIROGA Interpreted By: Bonilla See, 06/05/2023 7:34 AM Jorge Quiroga NP MRI Final Result documented in this encounter Visit Diagnoses Diagnosis Strain of left biceps, initial encounter- Primary Tendinopathy of left biceps tendon Strain of left biceps, initial encounter Tendinopathy of left biceps tendon Adhesive capsulitis of left shoulder Adhesive capsulitis of shoulder documented in this encounter Additional Health Concerns Assessment Noted Time PHQ-9 Depression Total Score: 5 03/18/19 24 2:22 PM LAB ENGINEER documented as of this encounter Care Teams Optical Brightener Maker Helper Relationship Specialty Start Date End Date Jorge Quiroga NP PCP - General NURSE PRACTITIONER ADULT HEALTH 03/11/23 09/14/23 documented as of this encounter
--- OUTSIDE RECORDS SUMMARY | 2024-02-12 08:37 | XMS_ITS | Encounter Summary ---
Author Organization [facility] Address [facility] [place] [address] [place] [address] Care Team Providers Care Tongue Presser Name Role Phone Marv Young PLASTICS ENGINEER Primary Care Provide r Encounter Details Date Type Department Care Team (Late st Contact Info) Description 05/23/2023 Care Management [facility] Medical Group Family & Internal Medicine [address] [address] Marv Young, PLASTICS ENGINEER [address] [place] [address] Social History Tobacco Use Types [...] st Contact Info) Description 02/12/2024 9:00 AM EGG CASER Appointment [facility] Outpatient Rehab [address] [place] [address] [place] [address] [place] [address] [place] [address] [place] [address] 02/12/2024 2:00 PM EGG CASER Appointment [facility] [place] [address] [place] [address] [place] [address] [place] [address] 02/16/2024 9:00 AM EGG CASER Appointment [facility] Outpatient Rehab [address] [place] [address] [place] [address] [place] [address] [place] [address] [place] [address] 02/19/2024 8:45 AM EGG CASER Appointment [facility] Outpatient Rehab [address] [place] [address] [place] [address] [place] [address] [place] [address] [place] [address] 02/19/2024 9:00 AM EGG CASER Appointment [facility] Outpatient Rehab [address] [place] [address] [place] [address] [place] [address] [place] [address] [place] [address] 02/23/2024 9:00 AM EGG CASER Appointment [facility] Outpatient Rehab [address] [place] [address] [place] [address] [place] [address] [place] [address] [place] [address] 02/24/2024 1:30 PM EGG CASER Appointment [facility] [place] [address] [place] [address] Ihsan Logan, [address] [place] [address] 02/26/2024 9:00 AM EGG CASER Appointment [facility] Outpatient Rehab [address] [place] [address] [place] [address] [place] [address] [place] [address] [place] [address] 02/26/2024 9:15 AM EGG CASER Appointment [facility] Outpatient Rehab [address] [place] [address] [place] [address] [place] [address] [place] [address] [place] [address] 03/01/2024 9:00 AM EGG CASER Appointment [facility] Outpatient Rehab [address] [place] [address] [place] [address] [place] [address] Holger Soriano, TYLER [address] [place] [address] Lorene Branch, SPRING MANUFACTURING SET UP TECHNICIAN 03/02/2024 12:27 PM EGG CASER Hospital Encounter [address] [address] [place] [address] [place] [address] 03/02/2024 12:27 PM EGG CASER - 03/02/2024 1:07 PM EGG CASER Surgery [facility] Surgery [address] [place] [address] [place] [address] [place] [address] MANIPULATION SHOULDER 03/05/2024 9:00 AM EGG CASER Appointment [facility] Outpatient Rehab [address] [place] [address] [place] [address] [place] [address] Lorene Branch, SPRING MANUFACTURING SET UP TECHNICIAN 03/08/2024 9:00 AM EGG CASER Appointment [facility] Outpatient Rehab [address] [place] [address] [place] [address] [place] [address] Lorene Branch, SPRING MANUFACTURING SET UP TECHNICIAN 03/11/2024 9:15 AM EGG CASER Appointment [facility] Outpatient Rehab [address] [place] [address] [place] [address] [place] [address] Lorene Branch, SPRING MANUFACTURING SET UP TECHNICIAN 03/15/2024 9:00 AM EGG CASER Appointment [facility] Outpatient Rehab [address] [place] [address] [place] [address] [place] [address] Lorene Branch, SPRING MANUFACTURING SET UP TECHNICIAN 03/18/2024 9:15 AM EGG CASER Appointment [facility] Outpatient Rehab [address] [place] [address] [place] [address] [place] [address] Lorene Branch, SPRING MANUFACTURING SET UP TECHNICIAN 03/22/2024 9:00 AM EGG CASER Appointment [facility] Outpatient Rehab [address] [place] [address] [place] [address] [place] [address] Lorene Branch, SPRING MANUFACTURING SET UP TECHNICIAN 03/25/2024 9:15 AM EGG CASER Appointment [facility] Outpatient Rehab [address] [place] [address] [place] [address] [place] [address] Lorene Branch, SPRING MANUFACTURING SET UP TECHNICIAN 04/21/2024 11:20 AM EGG CASER Office Visit [facility] Medical Group Family & Internal Medicine [facility] [address] [place] [phone] [place] [address] [place] [address] Scheduled Procedures Name Priority Associated Diagnoses Date/Ti me MANIPULATION SHOULDER Adhesive capsulitis of left shoulder 03/02/2024 12:27 PM EGG CASER INJECTION JOINT Adhesive capsulitis of left shoulder 03/02/2024 12:27 PM EGG CASER documented as of this encounter Visit Diagnoses Diagnosis Strain of left biceps, initial encounter- Primary Tendinopathy of left biceps tendon Adhesive capsulitis of left shoulder Adhesive capsulitis of shoulder documented in this encounter Additional Health Concerns Assessment Noted Time PHQ-9 Depression Total Score: 5 03/18/19 24 2:22 PM EGG CASER documented as of this encounter Care Teams Tongue Presser Relationship Specialty Start Date End Date Marv Young NP PCP - General NURSE PRACTITIONER ADULT HEALTH 03/11/23 09/14/23 documented as of this encounter
--- OUTSIDE RECORDS SUMMARY | 2024-02-12 08:37 | XMS_ITS | Encounter Summary ---
Author Organization [facility] Address [facility] [address] [place] [address] Care Team Providers Care Shredding Machine Knife Changer Name Role Phone Marv Young NP Primary [...] st Contact Info) Description 02/12/2024 9:00 AM ORTHOTIC/PROSTHETIC PRACTITIONER Appointment [facility] Outpatient Rehab [address] [place] [address] [place] [address] [place] [address] [place] [address] [place] [address] 02/12/2024 2:00 PM ORTHOTIC/PROSTHETIC PRACTITIONER Appointment [facility] [place] [address] [place] [address] [place] [address] [place] [address] 02/16/2024 9:00 AM ORTHOTIC/PROSTHETIC PRACTITIONER Appointment [facility] Outpatient Rehab [address] [place] [address] [place] [address] [place] [address] [place] [address] [place] [address] 02/19/2024 8:45 AM ORTHOTIC/PROSTHETIC PRACTITIONER Appointment [facility] Outpatient Rehab [address] [place] [address] [place] [address] [place] [address] [place] [address] [place] [address] 02/19/2024 9:00 AM ORTHOTIC/PROSTHETIC PRACTITIONER Appointment [facility] Outpatient Rehab [address] [place] [address] [place] [address] [place] [address] [place] [address] [place] [address] 02/23/2024 9:00 AM ORTHOTIC/PROSTHETIC PRACTITIONER Appointment [facility] Outpatient [facility]hab [address] [place] [address] [place] [address] [place] [address] [place] [address] [place] [address] 02/24/2024 1:30 PM ORTHOTIC/PROSTHETIC PRACTITIONER Appointment [facility] [address] [place] [address] [place] [address] [place] [address] 02/26/2024 9:00 AM ORTHOTIC/PROSTHETIC PRACTITIONER Appointment [facility] Outpatient Rehab [address] [place] [address] [place] [address] [place] [address] [place] [address] [place] [address] 02/26/2024 9:15 AM ORTHOTIC/PROSTHETIC PRACTITIONER Appointment [facility]hab [address] [place] [address] [place] [address] [place] [address] [place] [address] [place] [address] 03/01/2024 9:00 AM ORTHOTIC/PROSTHETIC PRACTITIONER Appointment [facility] Outpatient [facility]hab [address] [place] [address] [place] [address] [place] [address] [place] [address] [place] [address] Lorene Branch, IMMIGRATION OFFICER 03/02/2024 12:27 PM ORTHOTIC/PROSTHETIC PRACTITIONER Hospital Encounter [facility] Surgery [address] [place] [address] [place] [address] [place] [address] 03/02/2024 12:27 PM ORTHOTIC/PROSTHETIC PRACTITIONER - 03/02/2024 1:07 PM ORTHOTIC/PROSTHETIC PRACTITIONER Surgery [address] [address] [place] [address] [place] [address] MANIPULATION SHOULDER 03/05/2024 9:00 AM ORTHOTIC/PROSTHETIC PRACTITIONER Appointment [facility] Outpatient Rehab [address] [place] [address] [place] [address] [place] [address] Lorene Branch, IMMIGRATION OFFICER 03/08/2024 9:00 AM ORTHOTIC/PROSTHETIC PRACTITIONER Appointment [facility] Outpatient Rehab [address] [place] [address] [place] [address] [place] [address] Lorene Branch, IMMIGRATION OFFICER 03/11/2024 9:15 AM ORTHOTIC/PROSTHETIC PRACTITIONER Appointment [facility] Outpatient Rehab [address] [place] [address] [place] [address] [place] [address] Lorene Branch, IMMIGRATION OFFICER 03/15/2024 9:00 AM ORTHOTIC/PROSTHETIC PRACTITIONER Appointment [facility] [address] [place] [address] [place] [address] [place] [address] Lorene Branch, IMMIGRATION OFFICER 03/18/2024 9:15 AM ORTHOTIC/PROSTHETIC PRACTITIONER Appointment [facility] [address] [place] [address] [place] [address] [place] [address] Lorene Branch, IMMIGRATION OFFICER 03/22/2024 9:00 AM ORTHOTIC/PROSTHETIC PRACTITIONER Appointment [facility] [address] [place] [address] [place] [address] [place] [address] Lorene Branch, IMMIGRATION OFFICER 03/25/2024 9:15 AM ORTHOTIC/PROSTHETIC PRACTITIONER Appointment [facility] [address] [place] [address] [place] [address] [place] [address] Lorene Branch, IMMIGRATION OFFICER 04/21/2024 11:20 AM ORTHOTIC/PROSTHETIC PRACTITIONER Office Visit [facility] Medical Group Family & Internal Medicine - [place] [address] [place] [address] [place] [address] [place] [address] Scheduled Procedures Name Priority Associated Diagnoses Date/Ti me MANIPULATION SHOULDER Adhesive capsulitis of left shoulder 03/02/2024 12:27 PM ORTHOTIC/PROSTHETIC PRACTITIONER INJECTION JOINT Adhesive capsulitis of left shoulder 03/02/2024 12:27 PM ORTHOTIC/PROSTHETIC PRACTITIONER documented as of this encounter Visit Diagnoses Not on filedocumented in this encounter Additional Health Concerns Assessment Noted Time PHQ-9 Depression Total Score: 5 03/18/19 2:22 PM ORTHOTIC/PROSTHETIC PRACTITIONER documented as of this encounter Care Teams Shredding Machine Knife Changer Relationship Specialty Start Date End Date Marv Young NP PCP - General NURSE PRACTITIONER ADULT HEALTH 03/11/23 09/14/23 documented as of this encounter
--- OUTSIDE RECORDS SUMMARY | 2024-02-12 08:37 | XMS_ITS | Encounter Summary ---
Author Organization [facility] Address [facility]. [place], [place] [address] [place] [address] Care Team Providers Care General Assembler Name Role Phone Marv Young NP Primary Care Provide r Brennon Flores MD Primary Care Provider [phone] Holger Soriano Primary Care Provider [phone] Reason for Visit * Reason Onset Date Comments Request Note (Return To Work) 06/05/2023 Encounter Details Date Type Department Care Team (Late st Contact Info) Description 06/05/2023 [employer] Message Enc [facility] Medical Group Family & Internal Medicine [address] [address] [facility] Provider left arm pain Social History Tobacco [...] is not working so please call her [phone] * Clarice Crooks RN - 06/05/2023 9:07 AM CDT Just making sure you are aware. I will send her work a letter today, she can return to work full duty? documented in this encounter Plan of Treatment Upcoming Encounters Date Type Department Care Team (Late st Contact Info) Description 02/12/2024 9:00 AM SPECIALTY TRIMMER Appointment [facility] Outpatient Rehab [address] [place], [place] [id number] [place] [address] [place] [place], [place] [address] [place] [address] [place] [address] 02/12/2024 2:00 PM SPECIALTY TRIMMER Appointment [facility] [place] [address] [place] [address] [place] [address] [place] [address] 02/16/2024 9:00 AM SPECIALTY TRIMMER Appointment [facility] Outpatient Rehab [address] [place] [address] [place] [address] [place] [address] [place] [address] [place] [address] 02/19/2024 8:45 AM SPECIALTY TRIMMER Appointment [facility] Outpatient Rehab [address] [place] [address] [place] [address] [place] [address] [place] [address] [place] [address] 02/19/2024 9:00 AM SPECIALTY TRIMMER Appointment [facility] Outpatient Rehab [address] [place] [address] [place] [address] [place] [address] [place] [address] [place] [address] 02/23/2024 9:00 AM SPECIALTY TRIMMER Appointment [facility] Outpatient Rehab [address] [place] [address] [place] [address] [place] [address] [place] [address] [place] [address] 02/24/2024 1:30 PM SPECIALTY TRIMMER Appointment [facility] [id number] [place] [address] [place] [address] [place] [address] 02/26/2024 9:00 AM SPECIALTY TRIMMER Appointment [facility] Outpatient Rehab [address] [place] [address] [place] [address] [place] [address] [place] [address] [place] [address] 02/26/2024 9:15 AM SPECIALTY TRIMMER Appointment [facility] Outpatient Rehab [address] [place] [address] [place] [address] [place] [address] [place] [address] [place] [address] 03/01/2024 9:00 AM SPECIALTY TRIMMER Appointment [facility] Outpatient Rehab [address] [place] [address] [place] [address] [place] [address] [place] [address] [place] [address] Lornee Branch, CATTLE TRADER 03/02/2024 12:27 PM SPECIALTY TRIMMER Hospital Encounter [facility] Surgery [address] [place] [address] [place] [address] [place] [address] 03/02/2024 12:27 PM SPECIALTY TRIMMER - 03/02/2024 1:07 PM SPECIALTY TRIMMER Surgery [facility] Surgery [address] [place] [address] [place] [address] [place] [address] MANIPULATION SHOULDER 03/05/2024 9:00 AM SPECIALTY TRIMMER Appointment [facility] Outpatient Rehab [address] [place] [address] [place] [address] [place] [address] Lorene Branch, CATTLE TRADER 03/08/2024 9:00 AM SPECIALTY TRIMMER Appointment [facility] Outpatient Rehab [address] [place] [address] [place] [address] [place] [address] Lorene Branch, CATTLE TRADER 03/11/2024 9:15 AM SPECIALTY TRIMMER Appointment [facility] [address] [place] [address] [place] [address] [place] [address] Lorene Branch, CATTLE TRADER 03/15/2024 9:00 AM SPECIALTY TRIMMER Appointment [facility] [address] [place] [address] [place] [address] [place] [address] Lorene Branch, CATTLE TRADER 03/18/2024 9:15 AM SPECIALTY TRIMMER Appointment [facility] [address] [place] [address] [place] [address] [place] [address] Lorene Branch, CATTLE TRADER 03/22/2024 9:00 AM SPECIALTY TRIMMER Appointment [facility] [address] [place] [address] [place] [address] [place] [address] Lorene Branch, CATTLE TRADER 03/25/2024 9:15 AM SPECIALTY TRIMMER Appointment [facility] [address] [place] [address] [place] [address] [place] [address] Lorene Branch, CATTLE TRADER 04/21/2024 11:20 AM SPECIALTY TRIMMER Office Visit [facility] Medical Group Family & Internal Medicine - [address] [phone] [place] [address] [place] [address] Scheduled Procedures Name Priority Associated Diagnoses Date/Ti me MANIPULATION SHOULDER Adhesive capsulitis of left shoulder 03/02/2024 12:27 PM SPECIALTY TRIMMER INJECTION JOINT Adhesive capsulitis of left shoulder 03/02/2024 12:27 PM SPECIALTY TRIMMER documented as of this encounter Visit Diagnoses Not on filedocumented in this encounter Additional Health Concerns Infection Onset Date Last Indicated Resolved Time COVID-19 Rule Out 10/17/2023 10/17/2023 10/17/2023 10:57 AM CDT COVID-19 Rule Out 12/29/2023 12/29/2023 12/29/2023 12:59 PM SPECIALTY TRIMMER Assessment Noted Time PHQ-9 Depression Total Score: 5 03/18/19 24 2:22 PM SPECIALTY TRIMMER documented as of this encounter Care Teams General Assembler Relationship Specialty Start Date End Date Marv Young NP PCP - General NURSE PRACTITIONER ADULT HEALTH 03/11/23 09/14/23 [place] [address] [address] PCP - General INTERNAL MEDICINE 09/15/23 09/15/23 [place] [address] [place] [address] PCP - General Physician [employer] Certified [employer] Medical 09/16/23 documented as of this encounter
--- OUTSIDE RECORDS SUMMARY | 2024-02-12 08:37 | XMS_ITS | Encounter Summary ---
Author Organization [facility] Address [facility]. [place], [place] [address] [place] [address] Care Team Providers Care Manager Surgical Name Role Phone Marv Young NP Primary [...] V Marv Young NP Phone: tel: fax: [facility] Orthopedic Surgery [address] [address] Phone: tel: fax: Referral ID Status Reason Start Date Expiration Date Visits Requested Visits Authorized [id number] Authorized Specialty Services 07/05/2024 99 99 Scheduling Instructions Please make sure orthopedic is covered by her insurance. Encounter Details Date Type Department Care Team (Late st Contact Info) Description 06/04/2023 [employer] Message Enc [facility] Family & Internal Medicine [address] [address] [facility] Provider MRI Social History Tobacco Use Types [...] st Contact Info) Description 02/12/2024 9:00 AM SOCIAL WORK COORDINATOR Appointment [facility] Outpatient Rehab [address] [place] [address] [place] [address] [place] [address] [place] [address] [place] [address] 02/12/2024 2:00 PM SOCIAL WORK COORDINATOR Appointment [facility] [place] [address] [place] [address] [place] [address] [place] [address] 02/16/2024 9:00 AM SOCIAL WORK COORDINATOR Appointment [facility] Outpatient Rehab [address] [place] [address] [place] [address] [place] [address] [place] [address] [place] [address] 02/19/2024 8:45 AM SOCIAL WORK COORDINATOR Appointment [facility] Outpatient Rehab [address] [place] [address] [place] [address] [place] [address] [place] [address] [place] [address] 02/19/2024 9:00 AM SOCIAL WORK COORDINATOR Appointment [facility] Outpatient Rehab [address] [place] [address] [place] [address] [place] [address] [place] [address] [place] [address] 02/23/2024 9:00 AM SOCIAL WORK COORDINATOR Appointment [facility] Outpatient Rehab [address] [place] [address] [place] [address] [place] [address] [place] [address] [place] [address] 02/24/2024 1:30 PM SOCIAL WORK COORDINATOR Appointment [facility] [place] [address] [place] [address] [place] [address] [place] [address] 02/26/2024 9:00 AM SOCIAL WORK COORDINATOR Appointment [facility] Outpatient Rehab [address] [place] [address] [place] [address] [place] [address] [place] [address] [place] [address] 02/26/2024 9:15 AM SOCIAL WORK COORDINATOR Appointment [facility] Outpatient Rehab [address] [place] [address] [place] [address] [place] [address] [place] [address] [place] [address] 03/01/2024 9:00 AM SOCIAL WORK COORDINATOR Appointment [facility] Outpatient Rehab [address] [place] [address] [place] [address] [place] [address] [place] [address] [place] [address] Lorene Branch, LEATHER TANNER 03/02/2024 12:27 PM SOCIAL WORK COORDINATOR Hospital Encounter [facility] [address] [place] [address] [place] [address] [place] [address] 03/02/2024 12:27 PM SOCIAL WORK COORDINATOR - 03/02/2024 1:07 PM SOCIAL WORK COORDINATOR Surgery [facility] [address] [place] [address] [place] [address] [place] [address] MANIPULATION SHOULDER 03/05/2024 9:00 AM SOCIAL WORK COORDINATOR Appointment [facility] Outpatient Rehab [address] [place] [address] [place] [address] [place] [address] Lorene Branch, LEATHER TANNER 03/08/2024 9:00 AM SOCIAL WORK COORDINATOR Appointment [facility] Outpatient Rehab [address] [place] [address] [place] [address] [place] [address] Lorene Branch, LEATHER TANNER 03/11/2024 9:15 AM SOCIAL WORK COORDINATOR Appointment [facility]patient Rehab [address] [place] [address] [place] [address] [place] [address] Lorene Branch, LEATHER TANNER 03/15/2024 9:00 AM SOCIAL WORK COORDINATOR Appointment [facility]patient Rehab [address] [place] [address] [place] [address] [place] [address] Lorene Branch, LEATHER TANNER 03/18/2024 9:15 AM SOCIAL WORK COORDINATOR Appointment [facility]patient Rehab [address] [place] [address] [place] [address] [place] [address] Lorene Branch, LEATHER TANNER 03/22/2024 9:00 AM SOCIAL WORK COORDINATOR Appointment [facility] Outpatient Rehab [address] [place] [address] [place] [address] [place], [place] [address] Lorene Branch, LEATHER TANNER 03/25/2024 9:15 AM SOCIAL WORK COORDINATOR Appointment [facility]patient Rehab [address] [place] [address] [place] [address] [place], [place] [address] Lorene Branch, LEATHER TANNER 04/21/2024 11:20 AM SOCIAL WORK COORDINATOR Office Visit [facility] Medical Group Family & Internal Medicine [facility] [address] [place] [phone] Holger Soriano, TYLER [address] [place] [address] Scheduled Procedures Name Priority Associated Diagnoses Date/Ti me MANIPULATION SHOULDER Adhesive capsulitis of left shoulder 03/02/2024 12:27 PM SOCIAL WORK COORDINATOR INJECTION JOINT Adhesive capsulitis of left shoulder 03/02/2024 12:27 PM SOCIAL WORK COORDINATOR Scheduled Referrals Name Type Priority Associated Diagnoses [...] Total Score: 5 03/18/19 24 2:22 PM SOCIAL WORK COORDINATOR documented as of this encounter Care Teams Manager Surgical Relationship Specialty Start Date End Date Marv Young NP PCP - General NURSE PRACTITIONER ADULT HEALTH 03/11/23 09/14/23 documented as of this encounter
--- OUTSIDE RECORDS SUMMARY | 2024-02-12 08:37 | XMS_ITS | Encounter Summary ---
Author Organization [facility] Address [facility] [place] [address] [place] [address] Care Team Providers Care Art Department Head Name Role Phone Marv Young COLLISION MECHANIC Primary Care Provide r Reason for Visit * Reason Onset Date Comments MRI/CT Orders 06/02/2023 Encounter Details Date Type Department Care Team (Late st Contact Info) Description 06/02/[address] [facility] Family & Internal Medicine [address] [address] Marv Young, COLLISION MECHANIC [address] [place] [address] [place] [address] MRI/CT Orders Social History Tobacco [...] the option of waiting until resolved per landscape manager or going to [facility]. [facility]. States she [...] point. Work excuse faxed as requested to [phone] kamla Gutierrez. * Clarice Crooks RN - 06/03/2023 8:38 AM CDT See notes below please. program development manager is trying to solve the situation. Will call patient and notify. Work note can be made. * Stacy Isaac - 06/03/2023 7:26 AM CDT Pt called checking status and she is needing to know what she needs to do please advise she does not want to do more damage to her arm. C/b # [phone] she also still needs to find an [...] Crooks RN - 06/02/2023 2:12 PM CDT program development manager is aware and is trying to [...] she just received a text message from [facility] that her MRI has beencancelled 06/13/2023. She is wanting to make sure this is correct and wondering if this is going to be rescheduled sooner? She wanted to make sure the machine or computer did not mess up as she is really needing this done. # [phone] [place] * Clarice Crooks RN - 06/02/2023 [...] scheduled for her MRI on 06/12 in [place]. Is there any possible way that we can have her Mri moved to a sooner appt. Please contact pt as thept has questions as when she is to return to work. documented in this encounter Plan of Treatment Upcoming Encounters Date Type Department Care Team (Late st Contact Info) Description 02/12/2024 9:00 AM YIELD IMPROVEMENT ENGINEER Appointment [facility] Outpatient Rehab [address] [place], [place] [phone] [place] [address] [place], [place] [phone] [place] [address] [place], [place] [address] 02/12/2024 2:00 PM YIELD IMPROVEMENT ENGINEER Appointment [facility] [place] [address] [place] [address] [place] [address] [place] [address] 02/16/2024 9:00 AM YIELD IMPROVEMENT ENGINEER Appointment [facility] Outpatient Rehab [address] [place] [address] [place] [address] [place] [address] [place] [address] [place] [address] 02/19/2024 8:45 AM YIELD IMPROVEMENT ENGINEER Appointment [facility] Outpatient Rehab [address] [place] [address] [place] [address] [place] [address] [place] [address] [place] [address] 02/19/2024 9:00 AM YIELD IMPROVEMENT ENGINEER Appointment [facility] Outpatient Rehab [address] [place] [address] [place] [address] [place] [address] [place] [address] [place] [address] 02/23/2024 9:00 AM YIELD IMPROVEMENT ENGINEER Appointment [facility] Outpatient Rehab [address] [place] [address] [place] [address] [place] [address] [place] [address] [place] [address] 02/24/2024 1:30 PM YIELD IMPROVEMENT ENGINEER Appointment [address] [address] [place] [address] [place] [address] 02/26/2024 9:00 AM YIELD IMPROVEMENT ENGINEER Appointment [facility] Outpatient Rehab [address] [place] [address] [place] [address] [place] [address] [place] [address] [place] [address] 02/26/2024 9:15 AM YIELD IMPROVEMENT ENGINEER Appointment [facility] Outpatient Rehab [address] [place] [address] [place] [address] [place] [address] [place] [address] [place] [address] 03/01/2024 9:00 AM YIELD IMPROVEMENT ENGINEER Appointment [facility] Outpatient Rehab [address] [place] [address] [place] [address] [place] [address] [place] [address] [place] [address] Lorene Branch, RISK OFFICER 03/02/2024 12:27 PM YIELD IMPROVEMENT ENGINEER Hospital Encounter [facility] [address] [place] [address] [place] [address] [place] [address] 03/02/2024 12:27 PM YIELD IMPROVEMENT ENGINEER - 03/02/2024 1:07 PM YIELD IMPROVEMENT ENGINEER Surgery [facility] Surgery [address] [place] [address] [place] [address] [place] [address] MANIPULATION SHOULDER 03/05/2024 9:00 AM YIELD IMPROVEMENT ENGINEER Appointment [facility] Outpatient Rehab [address] [place] [address] [place] [address] [place] [address] Lorene Branch, RISK OFFICER 03/08/2024 9:00 AM YIELD IMPROVEMENT ENGINEER Appointment [facility] Outpatient Rehab [address] [place] [address] [place] [address] [place] [address] Lorene Branch, RISK OFFICER 03/11/2024 9:15 AM YIELD IMPROVEMENT ENGINEER Appointment [facility] Outpatient Rehab [address] [place] [address], [place] [address] [place] [address] [place] [address] Lorene Branch, RISK OFFICER 03/15/2024 9:00 AM YIELD IMPROVEMENT ENGINEER Appointment [facility] Outpatient Rehab [address] [place] [address] [place] [address] [place] [address] Lorene Branch, RISK OFFICER 03/18/2024 9:15 AM YIELD IMPROVEMENT ENGINEER Appointment [facility] Outpatient Rehab [address] [place] [address] [place] [address] [place] [address] Lorene Branch, RISK OFFICER 03/22/2024 9:00 AM YIELD IMPROVEMENT ENGINEER Appointment [facility] Outpatient Rehab [address] [place] [address] [place] [address] [place] [address] Lorene Branch, RISK OFFICER 03/25/2024 9:15 AM YIELD IMPROVEMENT ENGINEER Appointment [facility] Outpatient Rehab [address] [place] [address] [place] [address] [place] [address] Lorene Branch, RISK OFFICER 04/21/2024 11:20 AM YIELD IMPROVEMENT ENGINEER Office Visit [facility] Family & Internal Medicine [facility] [address] [place] [address] [place] [address] [place] [address] Scheduled Procedures Name Priority Associated Diagnoses Date/Ti me MANIPULATION SHOULDER Adhesive capsulitis of left shoulder 03/02/2024 12:27 PM YIELD IMPROVEMENT ENGINEER INJECTION JOINT Adhesive capsulitis of left shoulder 03/02/2024 12:27 PM YIELD IMPROVEMENT ENGINEER documented as of this encounter Visit Diagnoses Not on filedocumented in this encounter Additional Health Concerns Assessment Noted Time PHQ-9 Depression Total Score: 5 03/18/19 24 2:22 PM YIELD IMPROVEMENT ENGINEER documented as of this encounter Care Teams Art Department Head Relationship Specialty Start Date End Date Marv Young NP PCP - General NURSE PRACTITIONER ADULT HEALTH 03/11/23 09/14/23 documented as of this encounter
--- OUTSIDE RECORDS SUMMARY | 2024-02-12 08:37 | XMS_ITS | Encounter Summary ---
Author Organization [facility] Address [facility] [place] [address] [place] [address] Care Team Providers Care Email Marketing Coordinator Name Role Phone Marv Young NP [...] st Contact Info) Description 02/12/2024 9:00 AM TAP DANCER Appointment [facility] Outpatient Rehab [address] [place], [place] [address] [place] [address] [place], [place] [address] [place] [address] [place] [address] 02/12/2024 2:00 PM TAP DANCER Appointment [facility] [place] [address] [place] [address] [place] [address] [place] [address] 02/16/2024 9:00 AM TAP DANCER Appointment [facility] Outpatient Rehab [address] [place] [address] [place] [address] [place] [address] [place] [address] [place] [address] 02/19/2024 8:45 AM TAP DANCER Appointment [facility] Outpatient Rehab [address] [place] [address] [place] [address] [place] [address] [place] [address] [place] [address] 02/19/2024 9:00 AM TAP DANCER Appointment [facility] Outpatient Rehab [address] [place] [address] [place] [address] [place] [address] [place] [address] [place] [address] 02/23/2024 9:00 AM TAP DANCER Appointment [facility] Outpatient Rehab [address] [place] [address] [place] [address] [place] [address] [place] [address] [place] [address] 02/24/2024 1:30 PM TAP DANCER Appointment [facility] [address] [place] [address] [place] [address] [place] [address] 02/26/2024 9:00 AM TAP DANCER Appointment [facility] Outpatient Rehab [address] [place] [address] [place] [address] [place] [address] [place] [address] [place] [address] 02/26/2024 9:15 AM TAP DANCER Appointment [facility] Outpatient Rehab [address] [place] [address] [place] [address] [place] [address] [place] [address] [place] [address] 03/01/2024 9:00 AM TAP DANCER Appointment [facility] Outpatient Rehab [address] [place] [address] [place] [address] [place] [address] [place] [address] [place] [address] Lorene Branch, RADIOLOGY SCHEDULER 03/02/2024 12:27 PM TAP DANCER Hospital Encounter [facility] [address] [place] [address] [place] [address] [place] [address] 03/02/2024 12:27 PM TAP DANCER - 03/02/2024 1:07 PM TAP DANCER Surgery [address] [address] [place] [address] [place] [address] MANIPULATION SHOULDER 03/05/2024 9:00 AM TAP DANCER Appointment [facility] Outpatient Rehab [address] [place] [address] [place] [address] [place] [address] Lorene Branch, RADIOLOGY SCHEDULER 03/08/2024 9:00 AM TAP DANCER Appointment [facility] Outpatient Rehab [address] [place] [address] [place] [address] [place] [address] Lorene Branch, RADIOLOGY SCHEDULER 03/11/2024 9:15 AM TAP DANCER Appointment [facility] Outpatient Rehab [address] [place] [address] [place] [address] [place] [address] Lorene Branch, RADIOLOGY SCHEDULER 03/15/2024 9:00 AM TAP DANCER Appointment [facility] Outpatient Rehab [address] [place] [address] [place] [address] [place] [address] Lorene Branch, RADIOLOGY SCHEDULER 03/18/2024 9:15 AM TAP DANCER Appointment [facility] Outpatient Rehab [address] [place] [address] [place] [address] [place] [address] Lorene Branch, RADIOLOGY SCHEDULER 03/22/2024 9:00 AM TAP DANCER Appointment [facility] Outpatient Rehab [address] [place] [address] [place] [address] [place] [address] Lorene Branch, RADIOLOGY SCHEDULER 03/25/2024 9:15 AM TAP DANCER Appointment [facility] Outpatient Rehab [address] [place] [address] [place] [address] [place] [address] Lorene Branch, RADIOLOGY SCHEDULER 04/21/2024 11:20 AM TAP DANCER Office Visit [facility] Medical Group Family & Internal Medicine [address] [address] [place] [address] [place] [address] Scheduled Procedures Name Priority Associated Diagnoses Date/Ti me MANIPULATION SHOULDER Adhesive capsulitis of left shoulder 03/02/2024 12:27 PM TAP DANCER INJECTION JOINT Adhesive capsulitis of left shoulder 03/02/2024 12:27 PM TAP DANCER documented as of this encounter Visit Diagnoses Not on filedocumented in this encounter Additional Health Concerns Assessment Noted Time PHQ-9 Depression Total Score: 5 03/18/19 24 2:22 PM TAP DANCER documented as of this encounter Care Teams Email Marketing Coordinator Relationship Specialty Start Date End Date Marv Young NP PCP - General NURSE PRACTITIONER ADULT HEALTH 03/11/23 09/14/23 documented as of this encounter
--- OUTSIDE RECORDS SUMMARY | 2024-02-12 08:38 | XMS_ITS | Encounter Summary ---
Author Organization [facility] Address [facility] [place] [address] [place] [address] Care Team Providers Care Machine I Coremaker Name Role Phone Marv Young FAST FOOD ASSISTANT RESTAURANT MANAGER Primary Care Provide r Reason for Visit * Reason Onset Date Comments Question 03/24/2023 Encounter Details Date Type Department Care Team (Late st Contact Info) Description 03/24/2023 Telephone [facility] Family & Internal Medicine [facility] [address] [place] [address] Marv Young, FAST FOOD ASSISTANT RESTAURANT MANAGER [address] [place] [address] [place] [address] Question Social History Tobacco Use [...] Pt v/u and denied any further questions. ING INSPECTOR * Stacy Marcia Isaac - 03/24/2023 2:50 PM CST PT called wanting to talk with nurse about concussion please call abck at [phone] ING INSPECTOR documented in this encounter Plan of Treatment Upcoming Encounters Date Type Department Care Team (Late st Contact [facility]) Description 02/12/2024 9:00 AM ALINING INSPECTOR Appointment [facility] Outpatient Rehab [id number] [place] [address] [place] [address] [place] [address] [place] [address] [place] [address] 02/12/2024 2:00 PM ALINING INSPECTOR Appointment [facility] [address] [place] [address] [place] [address] [place] [address] 02/16/2024 9:00 AM ALINING INSPECTOR Appointment [facility] Outpatient Rehab [address] [place] [address] [place] [address] [place] [address] [place] [address] [place] [address] 02/19/2024 8:45 AM ALINING INSPECTOR Appointment [facility] Outpatient Rehab [address] [place] [address] [place] [address] [place] [address] [place] [address] [place] [address] 02/19/2024 9:00 AM ALINING INSPECTOR Appointment [facility] Outpatient Rehab [address] [place] [address] [place] [address] [place] [address] [place] [address] [place] [address] 02/23/2024 9:00 AM ALINING INSPECTOR Appointment [facility] Outpatient Rehab [address] [place] [address] [place] [address] [place] [address] [place] [address] [place] [address] 02/24/2024 1:30 PM ALINING INSPECTOR Appointment [facility] [address] [place] [address] [place] [address] 02/26/2024 9:00 AM ALINING INSPECTOR Appointment [facility] Outpatient Rehab [address] [place] [address] [place] [address] [place] [address] [place] [address] [place] [address] 02/26/2024 9:15 AM ALINING INSPECTOR Appointment [facility] Outpatient Rehab [address] [place] [address] [place] [address] [place] [address] [place] [address] [place] [address] 03/01/2024 9:00 AM ALINING INSPECTOR Appointment [facility]patient Rehab [address] [place] [address] [place] [address] [place] [address] [place] [address] [place] [address] Lorene Branch, [employer]ARCH [employer] 03/02/2024 12:27 PM ALINING INSPECTOR Hospital Encounter [facility] [id number] [place] [address] [place] [address] [employer] [address] 03/02/2024 12:27 PM ALINING INSPECTOR - 03/02/2024 1:07 PM ALINING INSPECTOR Surgery [facility] [address] [place] [address] Ihsan Logan, [address] [employer] [address] MANIPULATION SHOULDER 03/05/2024 9:00 AM ALINING INSPECTOR Appointment [facility] Outpatient Rehab [address] [place] [address] [place] [address] [place] [address] Lorene Branch, [employer]ARCH [employer] 03/08/2024 9:00 AM ALINING INSPECTOR Appointment [facility] Outpatient Rehab [address] [place] [address] [place] [address] [place] [address] Lorene Branch, [employer]EARCH [employer] 03/11/2024 9:15 AM ALINING INSPECTOR Appointment [facility] Outpatient Rehab [address] [place] [address] [place] [address] [place] [address] Lorene Branch, [employer]ARCH [employer] 03/15/2024 9:00 AM ALINING INSPECTOR Appointment [facility]patient [facility]hab [address] [place] [address] [place] [address] [place] [address] Lorene Branch, [employer]ARCH [employer] 03/18/2024 9:15 AM ALINING INSPECTOR Appointment [facility] Outpatient Rehab [address] [place] [address] [place] [address] [place] [address] Jose Carlos Lorene Marcia, [employer]ARCH [employer] 03/22/2024 9:00 AM ALINING INSPECTOR Appointment [facility] Outpatient Rehab [address] [place] [address] [place] [address] [place] [address] Lorene Branch Marcia, [employer] 03/25/2024 9:15 AM ALINING INSPECTOR Appointment [facility] Outpatient Rehab [address] [place] [address] [place] [address] [place] [address] Lorene Branch, [employer]ARCH [employer] 04/21/2024 11:20 AM ALINING INSPECTOR Office Visit [facility] Family & Internal Medicine [facility] [address] [place] [address] [place] [address] [place] [address] Scheduled Procedures Name Priority Associated Diagnoses Date/Ti me MANIPULATION SHOULDER Adhesive capsulitis of left shoulder 03/02/2024 12:27 PM ALINING INSPECTOR INJECTION JOINT Adhesive capsulitis of left shoulder 03/02/2024 12:27 PM ALINING INSPECTOR documented as of this encounter Visit Diagnoses Not on filedocumented in this encounter Additional Health Concerns Assessment Noted Time PHQ-9 Depression Total Score: 5 03/18/19 24 2:22 PM ALINING INSPECTOR documented as of this encounter Care Teams Machine I Coremaker Relationship Specialty Start Date End Date Marv Young NP PCP - General NURSE PRACTITIONER ADULT HEALTH 03/11/23 09/14/23 documented as of this encounter
--- OUTSIDE RECORDS SUMMARY | 2024-02-12 08:38 | XMS_ITS | Encounter Summary ---
Author Organization [facility] Address [facility]6 [facility] [address] [place] [address] Care Team Providers Care Fiction And Nonfiction Writer Prose Name Role Phone Wilmer Carnes MD Primary Care Provider + [phone] Encounter Details Date Type Department Care Team [...] Contact Info) Description 02/12/2024 9:00 AM SALES SUPPORT ENGINEER Appointment [facility] Outpatient Rehab [address] [place] [address] [place] [address] [place] [address] [place] [address] [place] [address] 02/12/2024 2:00 PM SALES SUPPORT ENGINEER Appointment [facility] [address] [place] [address] [place] [address] [place] [address] 02/16/2024 9:00 AM SALES SUPPORT ENGINEER Appointment [facility] Outpatient Rehab [address] [place] [address] [place] [address] [place] [address] [place] [address] [place] [address] 02/19/2024 8:45 AM SALES SUPPORT ENGINEER Appointment [facility] Outpatient Rehab [address] [place] [address] [place] [address] [place] [address] [place] [address] [place] [address] 02/19/2024 9:00 AM SALES SUPPORT ENGINEER Appointment [facility] Outpatient Rehab [address] [place] [address] [place] [address] [place] [address] [place] [address] [place] [address] 02/23/2024 9:00 AM SALES SUPPORT ENGINEER Appointment [facility] Outpatient Rehab [address] [place] [address] [place] [address] [place] [address] [place] [address] [place] [address] 02/24/2024 1:30 PM SALES SUPPORT ENGINEER Appointment [address] [address] [place] [address] [place] [address] 02/26/2024 9:00 AM SALES SUPPORT ENGINEER Appointment [facility] Outpatient Rehab [address] [place] [address] [place] [address] [place] [address] [place] [address] [place] [address] 02/26/2024 9:15 AM SALES SUPPORT ENGINEER Appointment [facility] Outpatient Rehab [address] [place] [address] [place] [address] [place] [address] [place] [address] [place] [address] 03/01/2024 9:00 AM SALES SUPPORT ENGINEER Appointment [facility] Outpatient Rehab [address] [place] [address] [place] [address] [place] [address] [place] [address] [place] [address] Lorene Branch, SAFETY INTERN 03/02/2024 12:27 PM SALES SUPPORT ENGINEER Hospital Encounter [facility] [address] [place] [address] [place] [address] [place] [address] 03/02/2024 12:27 PM SALES SUPPORT ENGINEER - 03/02/2024 1:07 PM SALES SUPPORT ENGINEER Surgery [facility] Surgery [address] [place] [address] [place] [address] [place] [address] MANIPULATION SHOULDER 03/05/2024 9:00 AM SALES SUPPORT ENGINEER Appointment [facility] Outpatient Rehab [address] [place] [address] [place] [address] [place] [address] Lorene Branch, SAFETY INTERN 03/08/2024 9:00 AM SALES SUPPORT ENGINEER Appointment [facility] Outpatient Rehab [address] [place] [address] [place] [address] [place] [address] Lorene Branch, SAFETY INTERN 03/11/2024 9:15 AM SALES SUPPORT ENGINEER Appointment [facility] Outpatient Rehab [address] [place] [address] [place] [address] [place] [address] Lorene Branch, SAFETY INTERN 03/15/2024 9:00 AM SALES SUPPORT ENGINEER Appointment [facility] [address] [place] [address] [place] [address] [place] [address] Lorene Branch, SAFETY INTERN 03/18/2024 9:15 AM SALES SUPPORT ENGINEER Appointment [facility] [address] [place] [address] [place] [address] [place] [address] Lorene Branch, SAFETY INTERN 03/22/2024 9:00 AM SALES SUPPORT ENGINEER Appointment [facility] Outpatient [facility]hab [address] [place] [address] [place] [address] [place] [address] Lorene Branch, SAFETY INTERN 03/25/2024 9:15 AM SALES SUPPORT ENGINEER Appointment [facility] Outpatient [facility]hab [address] [place] [address] [place] [address] [place] [address] Lorene Branch, SAFETY INTERN 04/21/2024 11:20 AM SALES SUPPORT ENGINEER Office Visit [facility] Family & Internal Medicine [address] [address] [place] [address] [place] [address] Scheduled Procedures Name Priority Associated Diagnoses Date/Ti me MANIPULATION SHOULDER Adhesive capsulitis of left shoulder 03/02/2024 12:27 PM SALES SUPPORT ENGINEER INJECTION JOINT Adhesive capsulitis of left shoulder 03/02/2024 12:27 PM SALES SUPPORT ENGINEER documented as of this encounter Visit Diagnoses Not on filedocumented in this encounter Care Teams Fiction And Nonfiction Writer Prose Relationship Specialty Start Date End Date Wilmer Carnes MD [address] [place] [address] PCP - General FAMILY PRACTICE 09/03/20 03/10/23 documented as of this encounter
--- OUTSIDE RECORDS SUMMARY | 2024-02-12 08:38 | XMS_ITS | Encounter Summary ---
Author Organization [facility] Address [facility] [place] [address] [place] [address] Care Team Providers Care Can Intake Worker Name Role Phone Marv Young NP [...] st Contact Info) Description 02/12/2024 9:00 AM HR INTERN Appointment [facility] Outpatient Rehab [address] [place] [address] [place] [address] [place] [address] [place] [address] [place] [address] 02/12/2024 2:00 PM HR INTERN Appointment [facility] MRI [address] [place] [address] [place] [address] [place] [address] 02/16/2024 9:00 AM HR INTERN Appointment [facility] Outpatient Rehab [address] [place] [address] [place] [address] [place] [address] [place] [address] [place] [address] 02/19/2024 8:45 AM HR INTERN Appointment [facility] Outpatient Rehab [address] [place] [address] [place] [address] [place] [address] [place] [address] [place] [address] 02/19/2024 9:00 AM HR INTERN Appointment [facility] Outpatient Rehab [address] [place] [address] [place] [address] [place] [address] [place] [address] [place] [address] 02/23/2024 9:00 AM HR INTERN Appointment [facility] Outpatient Rehab [address] [place] [address] [place] [address] [place] [address] [place] [address] [place] [address] 02/24/2024 1:30 PM HR INTERN Appointment [facility] MRI [address] [place] [address] Ihsan Logan, [address] [place] [address] 02/26/2024 9:00 AM HR INTERN Appointment [facility] Outpatient Rehab [address] [place] [address] [place] [address] [place] [address] [place] [address] [place] [address] 02/26/2024 9:15 AM HR INTERN Appointment [facility] Outpatient Rehab [address] [place] [address] [place] [address] [place] [address] [place] [address] [place] [address] 03/01/2024 9:00 AM HR INTERN Appointment [facility] Outpatient Rehab [address] [place] [address] [place] [address] [place] [address] [place] [address] [place] [address] Lorene Branch, LEAD ELECTRICAL ENGINEER 03/02/2024 12:27 PM HR INTERN Hospital Encounter [facility] [address] [place] [address] [place] [address] [place] [address] 03/02/2024 12:27 PM HR INTERN - 03/02/2024 1:07 PM HR INTERN Surgery [facility] Surgery [address] [place] [address] [place] [address] [place] [address] MANIPULATION SHOULDER 03/05/2024 9:00 AM HR INTERN Appointment [facility] Outpatient Rehab [address] [place] [address] [place] [address] [place] [address] Lorene Branch, LEAD ELECTRICAL ENGINEER 03/08/2024 9:00 AM HR INTERN Appointment [facility] Outpatient Rehab [address] [place] [address] [place] [address] [place] [address] Lorene Branch, LEAD ELECTRICAL ENGINEER 03/11/2024 9:15 AM HR INTERN Appointment [facility] Outpatient Rehab [address] [place] [address] [place] [address] [place] [address] Lorene Branch, LEAD ELECTRICAL ENGINEER 03/15/2024 9:00 AM HR INTERN Appointment [facility] Outpatient Rehab [address] [place] [address] [place] [address] [place] [address] Lorene Branch, LEAD ELECTRICAL ENGINEER 03/18/2024 9:15 AM HR INTERN Appointment [facility] [address] [place] [address] [place] [address] [place] [address] Lorene Branch, LEAD ELECTRICAL ENGINEER 03/22/2024 9:00 AM HR INTERN Appointment [facility] Outpatient Rehab [address] [place] [address] [place] [address] [place] [address] Lorene Branch, LEAD ELECTRICAL ENGINEER 03/25/2024 9:15 AM HR INTERN Appointment [facility] Outpatient [facility]hab [address] [place] [address] [place] [address] [place] [address] Lorene Branch, LEAD ELECTRICAL ENGINEER 04/21/2024 11:20 AM HR INTERN Office Visit [facility] Family & Internal Medicine - [address] [address] [place] [address] [place] [address] Scheduled Procedures Name Priority Associated Diagnoses Date/Ti me MANIPULATION SHOULDER Adhesive capsulitis of left shoulder 03/02/2024 12:27 PM HR INTERN INJECTION JOINT Adhesive capsulitis of left shoulder 03/02/2024 12:27 PM HR INTERN documented as of this encounter Visit Diagnoses Not on filedocumented in this encounter Additional Health Concerns Assessment Noted Time PHQ-9 Depression Total Score: 5 03/18/19 24 2:22 PM HR INTERN documented as of this encounter Care Teams Can Intake Worker Relationship Specialty Start Date End Date Marv Young NP PCP - General NURSE PRACTITIONER ADULT HEALTH 03/11/23 09/14/23 documented as of this encounter
--- OUTSIDE RECORDS SUMMARY | 2024-02-12 08:38 | XMS_ITS | Encounter Summary ---
Author Organization [facility] Address [facility]6 [facility] [place] [address] [place] [address] Care Team Providers Care Bean Sprout Laborer Name Role Phone Marv Young NP Primary [...] Contact Info) Description 02/12/2024 9:00 AM SENIOR LOGISTICS MANAGER Appointment [facility] Outpatient Rehab [address] [place] [address] [place] [address] [place] [address] [place] [address] [place] [address] 02/12/2024 2:00 PM SENIOR LOGISTICS MANAGER Appointment [facility] MRI [address] [place] [address] [place] [address] [place] [address] 02/16/2024 9:00 AM SENIOR LOGISTICS MANAGER Appointment [facility] Outpatient Rehab [address] [place] [address] [place] [address] [place] [address] [place] [address] [place] [address] 02/19/2024 8:45 AM SENIOR LOGISTICS MANAGER Appointment [facility] Outpatient Rehab [address] [place] [address] [place] [address] [place] [address] [place] [address] [place] [address] 02/19/2024 9:00 AM SENIOR LOGISTICS MANAGER Appointment [facility] Outpatient Rehab [address] [place] [address] [place] [address] [place] [address] [place] [address] [place] [address] 02/23/2024 9:00 AM SENIOR LOGISTICS MANAGER Appointment [facility] Outpatient Rehab [address] [place] [address] [place] [address] [place] [address] [place] [address] [place] [address] 02/24/2024 1:30 PM SENIOR LOGISTICS MANAGER Appointment [facility] [address] [place] [address] [place] [address] [place] [address] 02/26/2024 9:00 AM SENIOR LOGISTICS MANAGER Appointment [facility] Outpatient Rehab [address] [place] [address] [place] [address] [place] [address] [place] [address] [place] [address] 02/26/2024 9:15 AM SENIOR LOGISTICS MANAGER Appointment [facility] Outpatient Rehab [address] [place] [address] [place] [address] [place] [address] [place] [address] [place] [address] 03/01/2024 9:00 AM SENIOR LOGISTICS MANAGER Appointment [facility] Outpatient Rehab [address] [place] [address] [place] [address] [place] [address] [place] [address] [place] [address] Lorene Branch, EGG PROCESSING SUPERVISOR 03/02/2024 12:27 PM SENIOR LOGISTICS MANAGER Hospital Encounter [facility] Surgery [id number] [place] [address] [place] [address] [place] [address] 03/02/2024 12:27 PM SENIOR LOGISTICS MANAGER - 03/02/2024 1:07 PM SENIOR LOGISTICS MANAGER Surgery [address] [address] [place] [address] [place] [address] MANIPULATION SHOULDER 03/05/2024 9:00 AM SENIOR LOGISTICS MANAGER Appointment [facility] Outpatient Rehab [address] [place] [address] [place] [address] [place] [address] Lorene Branch, EGG PROCESSING SUPERVISOR 03/08/2024 9:00 AM SENIOR LOGISTICS MANAGER Appointment [facility] Outpatient Rehab [address] [place] [address] [place] [address] [place] [address] Lorene Branch, EGG PROCESSING SUPERVISOR 03/11/2024 9:15 AM SENIOR LOGISTICS MANAGER Appointment [facility] Outpatient Rehab [address] [place] [address] [place] [address] [place] [address] Lorene Branch, EGG PROCESSING SUPERVISOR 03/15/2024 9:00 AM SENIOR LOGISTICS MANAGER Appointment [facility] [address] [place] [address] [place] [address] [place] [address] Lorene Branch, EGG PROCESSING SUPERVISOR 03/18/2024 9:15 AM SENIOR LOGISTICS MANAGER Appointment [facility] [address] [place] [address] [place] [address] [place] [address] Lorene Branch, EGG PROCESSING SUPERVISOR 03/22/2024 9:00 AM SENIOR LOGISTICS MANAGER Appointment [facility] [address] [place] [address] [place] [address] [place] [address] Lorene Branch, EGG PROCESSING SUPERVISOR 03/25/2024 9:15 AM SENIOR LOGISTICS MANAGER Appointment [facility] [address] [place] [address] [place] [address] [place] [address] Lorene Branch, EGG PROCESSING SUPERVISOR 04/21/2024 11:20 AM SENIOR LOGISTICS MANAGER Office Visit [facility] Group Family & Internal Medicine - [place] [address] [place] [address] [place] [address] [place] [address] Scheduled Procedures Name Priority Associated Diagnoses Date/Ti me MANIPULATION SHOULDER Adhesive capsulitis of left shoulder 03/02/2024 12:27 PM SENIOR LOGISTICS MANAGER INJECTION JOINT Adhesive capsulitis of left shoulder 03/02/2024 12:27 PM SENIOR LOGISTICS MANAGER documented as of this encounter Visit Diagnoses Not on filedocumented in this encounter Additional Health Concerns Assessment Noted Time PHQ-9 Depression Total Score: 5 03/18/19 2:22 PM SENIOR LOGISTICS MANAGER documented as of this encounter Care Teams Bean Sprout Laborer Relationship Specialty Start Date End Date Marv Young NP PCP - General NURSE PRACTITIONER ADULT HEALTH 03/11/23 09/14/23 documented as of this encounter
--- OUTSIDE RECORDS SUMMARY | 2024-02-12 08:38 | XMS_ITS | Encounter Summary ---
Author Organization [facility] Address [facility] [place] [address] [place] [address] Care Team Providers Care Fringing Machine Operator Name Role Phone Marv Young NP Primary Care Provide r Reason for Referral * (Routine) - New Request Specialty Diagnoses / Procedures Referred By Contteri t Referred To Contact Diagnoses Laceration of skin of scalp, sequela Procedures staple removal Marv Young NP Phone: tel: fax: Referral ID Status Reason Start Date Expiration Date V isits Requested Visits Authorized [id number] New Request 03/21/2023 03/21/2024 1 1 CLE DYNAMICS ENGINEER Reason for Visit * Reason Comments Suture Removal Suture removal, havi ng blurred vision and dizziness Encounter Details Date Type Department Care Team (Late st Contact Info) Description 03/21/2023 11:40 AM VEHICLE DYNAMICS ENGINEER Office Visit [facility] Family & Internal Medicine [address] [phone] Marv Young NP [address] [place] [address] [place] [place], [place] [address] Suture Removal (Suture removal, having blurred vision [...] Comments Blood Pressure 164/89 03/21/2023 11:39 AM VEHICLE DYNAMICS ENGINEER Pulse 94 03/21/2023 11:39 AM VEHICLE DYNAMICS ENGINEER Temperature 36.9 ??C (98.4 ??F) 03/21/2023 11:[address] Respiratory Rate 18 03/21/2023 11:39 AM VEHICLE DYNAMICS ENGINEER Oxygen Saturation 97% 03/21/2023 11:39 AM VEHICLE DYNAMICS ENGINEER Inhaled Oxygen Concentration - - Weight 86.2 kg (190 lb) 03/21/2023 11:39 AM VEHICLE DYNAMICS ENGINEER Height 157.5 cm (5' 2 ) 03/21/2023 11:39 AM VEHICLE DYNAMICS ENGINEER Body Mass Index 34.75 03/21/2023 11:39 AM VEHICLE DYNAMICS ENGINEER documented in this encounter Progress Notes * Marv Young, FOLDING MACHINE TENDER - 03/21/2023 11:40 AM CSTAssociated Order(s): staple [...] Negative. Musculoskeletal: Negative. Skin: Positive for wound. Corinne present in posterior scalp keeping a 4 [...] tender, moist and clean Sutures Removed: 3 Corinne Removed: 6 Patient tolerance: patient tolerated the [...] Portions of this note were dictated using Zase speech recognition software. Occasional wrong wordor sound-alike substitutions may have occurred due to the inherent limitations of voice recognition software. Please read the chart carefully and recognize, using context, where the substitutions may have occurred. Dionne Haskins PA-C evaluated and Dr Blue Paul reviewed and agrees with plan. CLE DYNAMICS ENGINEER documented in this encounter Plan of Treatment Upcoming Encounters Date Type Department Care Team (Late st Contact Info) Description 02/12/2024 9:00 AM VEHICLE DYNAMICS ENGINEER Appointment [facility] [address] [place] [address] [place] [address] [place] [address] [place] [address] [place] [address] 02/12/2024 2:00 PM VEHICLE DYNAMICS ENGINEER Appointment [facility] [address] [place] [address] [place] [address] [place] [address] 02/16/2024 9:00 AM VEHICLE DYNAMICS ENGINEER Appointment [facility] [address] [place] [address] [place] [address] [place] [address] [place] [address] [place] [address] 02/19/2024 8:45 AM VEHICLE DYNAMICS ENGINEER Appointment [facility] [address] [place] [address] [place] [address] [place] [address] [place] [address] [place] [address] 02/19/2024 9:00 AM VEHICLE DYNAMICS ENGINEER Appointment [facility] [address] [place] [address] [place] [address] [place] [address] [place] [address] [place] [address] 02/23/2024 9:00 AM VEHICLE DYNAMICS ENGINEER Appointment [facility] [address] [place] [address] [place] [address] [place] [address] [place] [address] [place] [address] 02/24/2024 1:30 PM VEHICLE DYNAMICS ENGINEER Appointment [facility] MRI [address] [place] [address] [place] [address] [place] [address] 02/26/2024 9:00 AM VEHICLE DYNAMICS ENGINEER Appointment [facility] [address] [place] [address] [place] [address] [place] [address] [place] [address] [place] [address] 02/26/2024 9:15 AM VEHICLE DYNAMICS ENGINEER Appointment [facility] [address] [place] [address] [place] [address] [place] [address] [place] [address] [place] [address] 03/01/2024 9:00 AM VEHICLE DYNAMICS ENGINEER Appointment [facility] [address] [place] [address] [place] [address] [place] [address] [place] [address] [place] [address] Lorene Branch PTA 03/02/2024 12:27 PM VEHICLE DYNAMICS ENGINEER Hospital Encounter [facility] Surgery [address] [place] [address] [place] [address] [place] [address] 03/02/2024 12:27 PM VEHICLE DYNAMICS ENGINEER - 03/02/2024 1:07 PM VEHICLE DYNAMICS ENGINEER Surgery [facility] [address] [place] [address] [place] [address]DO [address] [place] [address] MANIPULATION SHOULDER 03/05/2024 9:00 AM VEHICLE DYNAMICS ENGINEER Appointment [facility] [address] [place] [address] [place] [address] [place] [address] Lorene Branch, HOCKEY INSTRUCTOR 03/08/2024 9:00 AM VEHICLE DYNAMICS ENGINEER Appointment [facility] [address] [place] [address] [place] [address] [place] [address] Lorene Branch, HOCKEY INSTRUCTOR 03/11/2024 9:15 AM VEHICLE DYNAMICS ENGINEER Appointment [facility] [address] [place] [address] [place] [address] [place] [address] Lorene Branch, HOCKEY INSTRUCTOR 03/15/2024 9:00 AM VEHICLE DYNAMICS ENGINEER Appointment [facility] [address] [place] [address] [place] [address] [place] [address] Lorene Branch, HOCKEY INSTRUCTOR 03/18/2024 9:15 AM VEHICLE DYNAMICS ENGINEER Appointment [facility] [address] [place] [address] [place] [address] [place] [address] Lorene Branch, HOCKEY INSTRUCTOR 03/22/2024 9:00 AM VEHICLE DYNAMICS ENGINEER Appointment [facility] [address] [place] [address] [place] [address] [place] [address] Lorene Branch, HOCKEY INSTRUCTOR 03/25/2024 9:15 AM VEHICLE DYNAMICS ENGINEER Appointment [facility] [address] [place] [address] [place] [address] [place] [address] Lorene Branch, HOCKEY INSTRUCTOR 04/21/2024 11:20 AM VEHICLE DYNAMICS ENGINEER Office Visit [facility] Medical Group Family & Internal Medicine - [address] [phone] [place] [address] [place] [address] Scheduled Procedures Name Priority Associated Diagnoses Date/Ti me MANIPULATION SHOULDER Adhesive capsulitis of left shoulder 03/02/2024 12:27 PM VEHICLE DYNAMICS ENGINEER INJECTION JOINT Adhesive capsulitis of left shoulder 03/02/2024 12:27 PM VEHICLE DYNAMICS ENGINEER documented as of this encounter Procedures Procedure Name Priority Date/Time Associated Diagnosis Comments SUTURE REMOVAL Routine 03/21/2023 12:59 PM VEHICLE DYNAMICS ENGINEER Laceration of skin of scalp, sequela documented in this encounter Results * SUTURE REMOVAL (03/21/2023 12:59 PM VEHICLE DYNAMICS ENGINEER) Narrative Marv Young, FOLDING MACHINE TENDER - 03/21/2023 12:59 PM VEHICLE DYNAMICS ENGINEER Marv Young NP ? 03/21/2023 ??1:02 PM Staple removal Date/Time: 03/21/2023 12:59 PM Performed by: Marv Young NP Authorized by: Marv Young NP ??Body area: head/neck Location details: scalp Wound Appearance: tender, moist and clean Sutures Removed: 3 Corinne Removed: 6 Patient tolerance: patient tolerated the [...] Total Score: 5 03/18/19 24 2:22 PM VEHICLE DYNAMICS ENGINEER documented as of this encounter Care Teams Fringing Machine Operator Relationship Specialty Start Date End Date Marv Young NP PCP - General NURSE [facility]ACTITIONER [facility] 03/11/23 09/14/23 documented as of this encounter
--- OUTSIDE RECORDS SUMMARY | 2024-02-12 08:38 | XMS_ITS | Encounter Summary ---
Author Organization [facility] Address [facility] [place] [address] [place] [address] Care Team Providers Care Enterostomal Nurse Name Role Phone Marv Quiroga NP Primary Care Provide r Reason for Referral * Medication Prior Authorization - Authorized Specialty Diagnoses / Procedures Referred By Contac t Referred To Contact Diagnoses Type 2 diabetes mellitus without complication, with long-term current use of insulin ([facility]) Marv Quiroga NP [address] [place] [address] Phone: tel: fax: Referral ID Status Reason Start Date Expiration Date V isits Requested Visits Authorized [id number] Authorized 03/19/2023 03/19/2024 1 1 GEMENT REP Reason for Visit * Reason Comments New Patient New patient establis h care was previous pt of shannan blackburn er concussion trouble with word recall and having back pain wants xray Encounter Details Date Type Department Care Team (Late st Contact Info) Description 03/18/2023 2:00 PM MANAGEMENT REP Office Visit [facility] Family & Internal Medicine [address] [address] Marv Quiroga, [place] [address] New Patient (New patient establish care [...] Comments Blood Pressure 132/83 03/18/2023 2:08 PM MANAGEMENT REP Pulse 76 03/18/2023 2:08 PM MANAGEMENT REP Temperature 36.7 ??C (98 ??F) 03/18/2023 2:08 PM MANAGEMENT REP Respiratory Rate 16 03/18/2023 2:08 PM MANAGEMENT REP Oxygen Saturation 98% 03/18/2023 2:08 PM MANAGEMENT REP Inhaled Oxygen Concentration - - Weight 85.8 kg (189 lb 3.2 oz) 03/18/2023 2:08 P M MANAGEMENT REP Height 157.5 cm (5' 2 ) 03/18/2023 2:08 PM MANAGEMENT REP Body Mass Index 34.61 03/18/2023 2:08 PM MANAGEMENT REP documented in this encounter Progress Notes * Marv Quiroga, FIBERLINE SUPERVISOR - 03/18/2023 2:00 PM CST Reason for Visit: New Patient (New patient establish care was previous pt of lois. She was seen at [facility] for a fall where she sustained a [...] words and recall. The CT exam at [facility] showed no swelling of the brain or [...] with long-term current use of insulin ([facility]) ([facility]) - HEMOGLOBIN, GLYCOSYLATED - COLLECT.CAPILLARY (FNGR,HEEL,EAR) Post concussion syndrome Depression, unspecified depression type Generalized anxiety disorder PTSD (post-traumatic stress disorder) Menopausal and female climacteric states Mild intermittent asthma without complication ([facility]) Gastroesophageal reflux disease without esophagitis Recommendations and [...] months for A1C check. MARV QUIROGA NP GEMENT REP * Clarice Crooks RN - 03/18/2023 2:00 PM CST Letter written by provider printed and left at front end assistant for patient to nut picker today. GEMENT REP documented in this encounter Plan of Treatment Upcoming Encounters Date Type Department Care Team (Late st Contact Info) Description 02/12/2024 9:00 AM MANAGEMENT REP Appointment [facility] Out[facility]hab [address] [place] [address] [place] [address] [place] [address] [place] [address] [place] [address] 02/12/2024 2:00 PM MANAGEMENT REP Appointment [facility] MRI [address] [place] [address] [place] [address] [place] [address] 02/16/2024 9:00 AM MANAGEMENT REP Appointment [facility] [address] [place] [address] [place] [address] [place] [address] [place] [address] [place] [address] 02/19/2024 8:45 AM MANAGEMENT REP Appointment [facility] [address] [place] [address] [place] [address] [place] [address] [place] [address] [place] [address] 02/19/2024 9:00 AM MANAGEMENT REP Appointment [facility] [address] [place] [address] [place] [address] [place] [address] [place] [address] [place] [address] 02/23/2024 9:00 AM MANAGEMENT REP Appointment [facility] [address] [place] [address] [place] [address] [place] [address] [place] [address] [place] [address] 02/24/2024 1:30 PM MANAGEMENT REP Appointment [facility] [id number] [place] [address] [place] [address] [place] [address] 02/26/2024 9:00 AM MANAGEMENT REP Appointment [facility] Out[facility] [address] [place] [address] [place] [address] [place] [address] [place] [address] [place] [address] 02/26/2024 9:15 AM MANAGEMENT REP Appointment [facility] [address] [place] [address] [place] [address] [place] [address] [place] [address] [place] [address] 03/01/2024 9:00 AM MANAGEMENT REP Appointment [facility] [address] [place] [address] [place] [address] [place] [address] [place] [address] [place] [address] Lorene Branch, GRAVITY FLOW IRRIGATOR 03/02/2024 12:27 PM MANAGEMENT REP Hospital Encounter [facility] [address] [place] [address] [place] [address] [place] [address] 03/02/2024 12:27 PM MANAGEMENT REP - 03/02/2024 1:07 PM MANAGEMENT REP Surgery [facility] [address] [place] [address] [place] [address] [place] [address] MANIPULATION SHOULDER 03/05/2024 9:00 AM MANAGEMENT REP Appointment [facility] [address] [place] [address] [place] [address] [place] [address] Lorene Branch, GRAVITY FLOW IRRIGATOR 03/08/2024 9:00 AM MANAGEMENT REP Appointment [facility] [address] [place] [address] [place] [address] [place] [address] Lorene Branch, GRAVITY FLOW IRRIGATOR 03/11/2024 9:15 AM MANAGEMENT REP Appointment [facility] [address] [place] [address] [place] [address] [place] [address] Lorene Branch, GRAVITY FLOW IRRIGATOR 03/15/2024 9:00 AM MANAGEMENT REP Appointment [facility] [address] [place] [address] [place] [address] [place] [address] Lorene Branch, GRAVITY FLOW IRRIGATOR 03/18/2024 9:15 AM MANAGEMENT REP Appointment [facility] [address] [place] [address] [place] [address] [place] [address] Lorene Branch, GRAVITY FLOW IRRIGATOR 03/22/2024 9:00 AM MANAGEMENT REP Appointment [facility] [address] [place] [address] [place] [address] [place] [address] Lorene Branch, GRAVITY FLOW IRRIGATOR 03/25/2024 9:15 AM MANAGEMENT REP Appointment [facility] [address] [place] [address] [place] [address] [place] [address] Lorene Branch, GRAVITY FLOW IRRIGATOR 04/21/2024 11:20 AM MANAGEMENT REP Office Visit [facility] Medical Group Family & Internal Medicine [address] [phone] [place] [address] [place] [address] Scheduled Procedures Name Priority Associated Diagnoses Date/Ti me MANIPULATION SHOULDER Adhesive capsulitis of left shoulder 03/02/2024 12:27 PM MANAGEMENT REP INJECTION JOINT Adhesive capsulitis of left shoulder 03/02/2024 12:27 PM MANAGEMENT REP documented as of this encounter Procedures Procedure Name Priority Date/Time Associated Diagnosis Comments HEMOGLOBIN, GLYCOSYLATED Routine 03/18/2023 Type 2 diabetes mellitus without complication, with long-term current use of insulin ([facility]) COLLECT.CAPILLARY (FNGR,HEEL,EAR) Routine 03/18/2023 Type 2 diabetes mellitus without complication, with long-term current use of insulin ([facility]) documented in this encounter Results * COLLECT.CAPILLARY (FNGR,HEEL,EAR) (03/18/2023) Marv Quiroga NP PROCEDURES-UNRESULTED Final Result * HEMOGLOBIN, GLYCOSYLATED (03/18/2023) HGB A1C 5.2 % [id number] [facility] 03/18/2023 Marv Quiroga FIBERLINE SUPERVISOR LABORATORY Final Result Performing Organization Address [facility] [[email or web address]] Co de Phone Number -[phone] [facility] [address] [place] [address], [place] [phone] documented in this encounter Visit Diagnoses Diagnosis Post concussion syndrome- Primary Postconcussion syndrome Type 2 diabetes mellitus without complication, with long-term current use of insulin ([facility]) Depression, unspecified depression type Generalized anxiety disorder PTSD (post-traumatic stress disorder) Posttraumatic stress disorder Menopausal and female climacteric states Mild intermittent asthma without complication ([facility]) Unspecified asthma Gastroesophageal reflux disease without esophagitis Esophageal reflux Acute midline low back pain without sciatica 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 TBI (traumatic brain injury) Aphasia Migraine with status migrainosus, not intractable, unspecified migraine type Insomnia, unspecified type Bipolar I disorder with depression ([facility]) Bipolar I disorder, most recent episode (or current) depressed, unspecified Adhesive capsulitis of left shoulder Adhesive capsulitis of shoulder documented in this encounter Additional Health Concerns Assessment Noted Time PHQ-9 Depression Total Score: 5 03/18/19 24 2:22 PM MANAGEMENT REP documented as of this encounter Care Teams Enterostomal Nurse Relationship Specialty Start Date End Date Marv Quiroga NP PCP - General NURSE [facility] 03/11/23 09/14/23 documented as of this encounter
--- OUTSIDE RECORDS SUMMARY | 2024-02-12 08:38 | XMS_ITS | Encounter Summary ---
Author Organization [facility] Address [facility] [place] [address] [place] [address] Care Team Providers Care Wine Consultant Name Role Phone Marv Young CMM OPERATOR Primary Care Provide r Reason for Visit * Reason Onset Date Comments Advice 03/19/2023 Encounter Details Date Type Department Care Team (Late st Contact Info) Description 03/19/2023 Telephone [facility] Family & Internal Medicine [facility] [address] [place] [address] Marv Young, CMM OPERATOR [address] [place] [address] [place] [address] Advice Social History Tobacco Use [...] WO -scheduled for tomorrow at 1630 at [facility] mobile unit-patient will need to arrive approx 1615 and register at the main registration desk at [facility]. Message left for patient to return call to be informed of this information. CASTER * Isabela Dias RN - 03/19/2023 10:47 AM CST LVM for pt to call office. Marv placed order for MRI to be STAT. Can pt come today for this? Is she wanting this still at [facility]? CASTER * Isabela Dias RN - 03/19/2023 9:13 AM CST Please advise. Thanks! CASTER * Jen De Guzman - 03/19/2023 8:16 AM CST Pt called as her appt for MRI is not till 03/26 and her work note is to return to work on 03/24. If the provider wants the Mri sooner, please change the order to [facility]. If not pt will need a new work note with a ate after 03.26.2023. Please advise, thanks CASTER documented in this encounter Plan of Treatment Upcoming Encounters Date Type Department Care Team (Late st Contact Info) Description 02/12/2024 9:00 AM GRID CASTER Appointment [facility] [address] [place], [place] [id number] [place] [address] [place] [address] [place] [address] [place], [place] [address] 02/12/2024 2:00 [address] [facility] [address] [place] [address] [place] [address] [place] [address] 02/16/2024 9:00 AM GRID CASTER Appointment [facility] [address] [place] [address] [place] [address] [place] [address] [place] [address] [place] [address] 02/19/2024 8:45 AM GRID CASTER Appointment [facility] [address] [place] [address] [place] [address] [place] [address] [place] [address] [place] [address] 02/19/2024 9:00 AM GRID CASTER Appointment [facility] [address] [place] [address] [place] [address] [place] [address] [place] [address] [place] [address] 02/23/2024 9:00 AM GRID CASTER Appointment [facility] [address] [place] [address] [place] [address] [place] [address] [place] [address] [place] [address] 02/24/2024 1:30 PM GRID CASTER Appointment [address] [address] Ihsan Logan, [address] [place] [address] 02/26/2024 9:00 AM GRID CASTER Appointment [facility] [address] [place] [address] [place] [address] [place] [address] [place] [address] [place] [address] 02/26/2024 9:15 AM GRID CASTER Appointment [facility] [address] [place] [address] [place] [address] [place] [address] [place] [address] [place] [address] 03/01/2024 9:00 AM GRID CASTER Appointment [facility] [address] [place] [address] [place] [address] [place] [address] [place] [address] [place] [address] Lorene Branch, RISK CONTROL SPECIALIST 03/02/2024 12:27 PM GRID CASTER Hospital Encounter [facility] [address] [place] [address] [place] [address] [place] [address] 03/02/2024 12:27 PM GRID CASTER - 03/02/2024 1:07 PM GRID CASTER Surgery [facility] [address] [place] [address] [place] [address] [place] [address] MANIPULATION SHOULDER 03/05/2024 9:00 AM GRID CASTER Appointment [facility] [address] [place] [address] [place] [address] [place] [address] Lorene Branch, RISK CONTROL SPECIALIST 03/08/2024 9:00 AM GRID CASTER Appointment [facility] [address] [place] [address] [place] [address] [place] [address] Lorene Branch, RISK CONTROL SPECIALIST 03/11/2024 9:15 AM GRID CASTER Appointment [facility] [address] [place] [address] [place] [address] [place] [address] Lorene Branch, RISK CONTROL SPECIALIST 03/15/2024 9:00 AM GRID CASTER Appointment [facility] [address] [place] [address] [place] [address] [place] [address] Lorene Branch, RISK CONTROL SPECIALIST 03/18/2024 9:15 AM GRID CASTER Appointment [facility] [address] [place] [address] [place] [address] [place] [address] Lorene Branch, RISK CONTROL SPECIALIST 03/22/2024 9:00 AM GRID CASTER Appointment [facility] [address] [place] [address] [place] [address] [place] [address] Lorene Branch, RISK CONTROL SPECIALIST 03/25/2024 9:15 AM GRID CASTER Appointment [facility] [address] [place] [address] [place] [address] [place] [address] Lorene Branch, RISK CONTROL SPECIALIST 04/21/2024 11:20 AM GRID CASTER Office Visit [facility] Medical Group Family & Internal Medicine [address] [address] [place] [address] [place] [address] Scheduled Procedures Name Priority Associated Diagnoses Date/Ti me MANIPULATION SHOULDER Adhesive capsulitis of left shoulder 03/02/2024 12:27 PM GRID CASTER INJECTION JOINT Adhesive capsulitis of left shoulder 03/02/2024 12:27 PM GRID CASTER documented as of this encounter Visit Diagnoses Not on filedocumented in this encounter Additional Health Concerns Assessment Noted Time PHQ-9 Depression Total Score: 5 03/18/19 2:22 PM GRID CASTER documented as of this encounter Care Teams Wine Consultant Relationship Specialty Start Date End Date Marv Young NP PCP - General NURSE PRACTITIONER ADULT HEALTH 03/11/23 09/14/23 documented as of this encounter
--- OUTSIDE RECORDS SUMMARY | 2024-02-12 08:38 | XMS_ITS | Encounter Summary ---
Author Organization [facility] Address [facility] [place] [address] [place] [address] Care Team Providers Care Boom Tender Name Role Phone Marv Quiroga NP Primary Care Provide r Reason for Referral * Imaging (Emergency) - Closed Specialty Diagnoses / Procedures Referred By Contac t Referred To Contact RADIOLOGY Diagnoses Post concussion syndrome Aphasia Procedures MRI BRAIN WO CON MRI BRAIN WO CON Marv Quiroga NP Phone: tel: fax: Referral ID Status Reason Start Date Expiration Date Visits Re quested Visits Authorized [id number] Closed 03/19/2023 03/19/2024 1 1 N UNLOADER Encounter Details Date Type Department Care Team (Late st Contact Info) Description 03/19/2023 Orders Only [facility] Medical Group Family & Internal Medicine [address] [address] Marv Quiroga, GRACE [address] [place], [place] [address] [address] Social History Tobacco Use Types [...] on: 03/19/2023 11:36 AM Modules accepted: Orders N UNLOADER * Jasiel Barber RN - 03/19/2023 11:36 AM CSTAddended by: JASIEL BARBER on: 03/19/2023 11:36 AM Modules accepted: Orders N UNLOADER documented in this encounter Plan of Treatment Upcoming Encounters Date Type Department Care Team (Late st [facility] Info) Description 02/12/2024 9:00 AM GRAIN UNLOADER Appointment [facility] [address] [place] [address] [place] [address] [place] [address] [place] [address] [place] [address] 02/12/2024 2:00 PM GRAIN UNLOADER [place]ointment [facility] [place] [address] [place] [address] [place] [address] [place] [address] 02/16/2024 9:00 AM GRAIN UNLOADER Appointment [facility] [address] [place] [address] [place] [address] [place] [address] [place] [address] [place] [address] 02/19/2024 8:45 AM GRAIN UNLOADER Appointment [facility] [address] [place] [address] [place] [address] [place] [address] [place] [address] [place] [address] 02/19/2024 9:00 AM GRAIN UNLOADER Appointment [facility] [address] [place] [address] [place] [address] [place] [address] [place] [address] [place] [address] 02/23/2024 9:00 AM GRAIN UNLOADER Appointment [facility] [address] [place] [address] [place] [address] [place] [address] [place] [address] [place] [address] 02/24/2024 1:30 PM GRAIN UNLOADER Appointment [facility] [place] [address] [place] [address] [place] [address] [place] [address] 02/26/2024 9:00 AM GRAIN UNLOADER Appointment [facility] [address] [place] [address] [place] [address] [place] [address] [place] [address] [place] [address] 02/26/2024 9:15 AM GRAIN UNLOADER Appointment [facility] [address] [place] [address] [place] [address] [place] [address] [place] [address] [place] [address] 03/01/2024 9:00 AM GRAIN UNLOADER Appointment [facility] [address] [place] [address] [place] [address] [place] [address] [place] [address] [place] [address] Lorene Branch, AEROPHYSICIST 03/02/2024 12:27 PM GRAIN UNLOADER Hospital Encounter [facility] [address] [place] [address] [place] [address] [place] [address] 03/02/2024 12:27 PM GRAIN UNLOADER - 03/02/2024 1:07 PM GRAIN UNLOADER Surgery [facility] [address] [place] [address] [place] [address] [place] [address] MANIPULATION SHOULDER 03/05/2024 9:00 AM GRAIN UNLOADER Appointment [facility] [address] [place] [address] [place] [address] [place] [address] Lorene Branch, AEROPHYSICIST 03/08/2024 9:00 AM GRAIN UNLOADER Appointment [facility] [address] [place] [address] [place] [address] [place] [address] Lorene rBanch, AEROPHYSICIST 03/11/2024 9:15 AM GRAIN UNLOADER Appointment [facility] [address] [place] [address] [place] [address] [place] [address] Lorene Branch, AEROPHYSICIST 03/15/2024 9:00 AM GRAIN UNLOADER Appointment [facility] [address] [place] [address] [place] [address] [place] [address] Lorene Branch, AEROPHYSICIST 03/18/2024 9:15 AM GRAIN UNLOADER Appointment [facility] [address] [place] [address] [place] [address] [place] [address] Lorene Branch, AEROPHYSICIST 03/22/2024 9:00 AM GRAIN UNLOADER Appointment [facility] [address] [place] [address] [place] [address] [place], [place] [address] Lorene Branch, AEROPHYSICIST 03/25/2024 9:15 AM GRAIN UNLOADER Appointment [facility] [address] [place] [address] [place] [address] [place] [address] Lorene Branch, AEROPHYSICIST 04/21/2024 11:20 AM GRAIN UNLOADER Office Visit [facility] Medical Group Family & Internal Medicine [address] [id number] [place] [address] [place] [address] Scheduled Procedures Name Priority Associated Diagnoses Date/Ti me MANIPULATION SHOULDER Adhesive capsulitis of left shoulder 03/02/2024 12:27 PM GRAIN UNLOADER INJECTION JOINT Adhesive capsulitis of left shoulder 03/02/2024 12:27 PM GRAIN UNLOADER documented as of this encounter Results * MRI BRAIN WO CON (03/20/2023 9:18 AM GRAIN UNLOADER) Anatomical Region Laterality Modality Head Magnetic Resonan ce 03/20/2023 9:18 AM GRAIN UNLOADER Impressions 03/20/2023 9:23 AM GRAIN UNLOADER IMPRESSION: 1. Soft tissue edema along the [...] 03/20/2023 9:18 AM Narrative 03/20/2023 9:23 AM GRAIN UNLOADER INDICATION: Aphasia. Post concussion syndrome. History of [...] Reyna MD, 03/20/2023 9:18 AM Marv Quiroga PIG CASTING MACHINE OPERATOR MRI Final Result documented in this encounter Visit Diagnoses Diagnosis Post concussion syndrome- Primary Postconcussion syndrome Aphasia Post concussion syndrome Postconcussion syndrome Aphasia Adhesive capsulitis of left shoulder Adhesive capsulitis of shoulder documented in this encounter Additional Health Concerns Assessment Noted Time PHQ-9 Depression Total Score: 5 03/18/19 24 2:22 PM GRAIN UNLOADER documented as of this encounter Care Teams Boom Tender Relationship Specialty Start Date End Date Marv Quiroga NP PCP - General NURSE PRACTITIONER ADULT HEALTH 03/11/23 09/14/23 documented as of this encounter
--- OUTSIDE RECORDS SUMMARY | 2024-02-12 08:38 | XMS_ITS | Encounter Summary ---
Author Organization [facility] Address [facility] [place] [address] [place] [address] Care Team Providers Care Assistant Public Defender Name Role Phone Marv Young BALLPOINT PEN CARTRIDGE TESTER Primary Care Provide r Encounter Details Date Type Department Care Team (Late st Contact Info) Description 05/23/2023 Care Management [facility] Medical Group Family & Internal Medicine [address] [address] Marv Young, BALLPOINT PEN CARTRIDGE TESTER [address] [facility] [place] [address] Social History Tobacco Use Types [...] st Contact Info) Description 02/12/2024 9:00 AM SUPERVISOR ALTERATION WORKROOM Appointment [facility] Outpatient Rehab [address] [address] [place] [address] [place] [address] [place] [address] [place] [address] 02/12/2024 2:00 PM SUPERVISOR ALTERATION WORKROOM Appointment [facility] MRI [address] [place] [address] [place] [address] [place] [address] 02/16/2024 9:00 AM SUPERVISOR ALTERATION WORKROOM Appointment [facility] [address] [place] [address] [place] [address] [place] [address] [place] [address] [place] [address] 02/19/2024 8:45 AM SUPERVISOR ALTERATION WORKROOM Appointment [facility] [address] [place] [address] [place] [address] [place] [address] [place] [address] [place] [address] 02/19/2024 9:00 AM SUPERVISOR ALTERATION WORKROOM Appointment [facility] [address] [place] [address] [place] [address] [place] [address] [place] [address] [place] [address] 02/23/2024 9:00 AM SUPERVISOR ALTERATION WORKROOM Appointment [facility] [address] [place] [address] [place] [address] [place] [address] [place] [address] [place] [address] 02/24/2024 1:30 PM SUPERVISOR ALTERATION WORKROOM Appointment [address] [address] Ihsan Logan, [address] [place] [address] 02/26/2024 9:00 AM SUPERVISOR ALTERATION WORKROOM Appointment [facility] [address] [place] [address] [place] [address] [place] [address] [place] [address] [place] [address] 02/26/2024 9:15 AM SUPERVISOR ALTERATION WORKROOM Appointment [facility] [address] [place] [address] [place] [address] [place] [address] [place] [address] [place] [address] 03/01/2024 9:00 AM SUPERVISOR ALTERATION WORKROOM Appointment [facility] [address] [place] [address] [place] [address] [place] [address] [place] [address] [place] [address] Lorene Branch, AUDIT REVIEWER 03/02/2024 12:27 PM SUPERVISOR ALTERATION WORKROOM Hospital Encounter [facility] [address] [place] [address] [place] [address] [place] [address] 03/02/2024 12:27 PM SUPERVISOR ALTERATION WORKROOM - 03/02/2024 1:07 PM SUPERVISOR ALTERATION WORKROOM Surgery [facility] [address] [place] [address] [place] [address] [place] [address] MANIPULATION SHOULDER 03/05/2024 9:00 AM SUPERVISOR ALTERATION WORKROOM Appointment [facility] [address] [place] [address] [place] [address] [place] [address] Lorene Branch, AUDIT REVIEWER 03/08/2024 9:00 AM SUPERVISOR ALTERATION WORKROOM Appointment [facility] [address] [place] [address] [place] [address] [place] [address] Lorene Branch, AUDIT REVIEWER 03/11/2024 9:15 AM SUPERVISOR ALTERATION WORKROOM Appointment [facility] [address] [place] [address] [place] [address] [place] [address] Lorene Branch, AUDIT REVIEWER 03/15/2024 9:00 AM SUPERVISOR ALTERATION WORKROOM Appointment [facility] [address] [place] [address] [place] [address] [place] [address] Lorene Branch, AUDIT REVIEWER 03/18/2024 9:15 AM SUPERVISOR ALTERATION WORKROOM Appointment [facility] [address] [place] [address] [place] [address] [place] [address] Lorene Branch, AUDIT REVIEWER 03/22/2024 9:00 AM SUPERVISOR ALTERATION WORKROOM Appointment [facility] [address] [place] [address] [place] [address] [place] [address] Lorene Branch, AUDIT REVIEWER 03/25/2024 9:15 AM SUPERVISOR ALTERATION WORKROOM Appointment [facility] [address] [place] [address] [place] [address] [place] [address] Jose Carlos Lorene Marcia, AUDIT REVIEWER 04/21/2024 11:20 AM SUPERVISOR ALTERATION WORKROOM Office Visit [facility] Medical Group Family & Internal Medicine [facility] [address] [place] [address] [place] [address] [place] [address] Scheduled Procedures Name Priority Associated Diagnoses Date/Ti me MANIPULATION SHOULDER Adhesive capsulitis of left shoulder 03/02/2024 12:27 PM SUPERVISOR ALTERATION WORKROOM INJECTION JOINT Adhesive capsulitis of left shoulder 03/02/2024 12:27 PM SUPERVISOR ALTERATION WORKROOM documented as of this encounter Visit Diagnoses Diagnosis Strain of left biceps, initial encounter- Primary Tendinopathy of left biceps tendon Chronic left shoulder pain Pain in joint, shoulder region Adhesive capsulitis of left shoulder Adhesive capsulitis of shoulder documented in this encounter Additional Health Concerns Assessment Noted Time PHQ-9 Depression Total Score: 5 03/18/19 2:22 PM SUPERVISOR ALTERATION WORKROOM documented as of this encounter Care Teams Assistant Public Defender Relationship Specialty Start Date End Date Marv Young NP PCP - General NURSE PRACTITIONER ADULT HEALTH 03/11/23 09/14/23 documented as of this encounter
--- OUTSIDE RECORDS SUMMARY | 2024-02-12 08:38 | XMS_ITS | Encounter Summary ---
Author Organization [facility] Address [facility] [place] [address] [place] [address] Care Team Providers Care Correction Officer [place] [facility] Name Role Phone Marv Young DISC RULER OPERATOR Primary Care Provide r Reason for Visit * Reason Onset Date Comments Back Pain 03/18/2023 Head injury Encounter Details Date Type Department Care Team (Late st Contact Info) Description 03/18/2023 Telephone [facility] Medical Group Family & Internal Medicine [address] [address] Marv Young, DISC RULER OPERATOR [address] [facility] [place] [address] Back Pain (Head injury ) [...] of the appt scheduled for tomorrow at [facility] * Isabela Dias RN - 03/19/2023 9:23 [...] she fell 03/17/23 hit head went to [facility] she has a concussion and she is having word retrieval problems and foggy brain I spoke to April Young and he is aware pt already has appt this afternoon to est care Tho she is a previous pt of [facility] She just called again stating she has back pain and thinks she needs a x-ray will add to appt notes [phone] ISH LITERATURE PROFESSOR documented in this encounter Plan of Treatment Upcoming Encounters Date Type Department Care Team (Late st Contact Info) Description 02/12/2024 9:00 AM SPANISH LITERATURE PROFESSOR [facility]ointment [facility] [address] [place] [address] [place] [address] [place] [address] [place] [address] [place], [place] [address] 02/12/2024 2:00 PM SPANISH LITERATURE PROFESSOR [facility]ment [facility] [address] [place] [address] [place] [address] [place] [address] 02/16/2024 9:00 AM SPANISH LITERATURE PROFESSOR [facility]ointment [facility] [address] [place] [address] [place] [address] [place] [address] [place] [address] [place] [address] 02/19/2024 8:45 AM SPANISH LITERATURE PROFESSOR [facility]ointment [facility] [address] [place] [address] [place] [address] [place] [address] [place] [address] [place] [address] 02/19/2024 9:00 AM SPANISH LITERATURE PROFESSOR Appointment [facility] [address] [place] [address] [place] [address] [place] [address] [place] [address] [place] [address] 02/23/2024 9:00 AM SPANISH LITERATURE PROFESSOR Appointment [facility] [address] [place] [address] [place] [address] [place] [address] Holger Soriano, TYLER [address] [place] [address] 02/24/2024 1:30 PM SPANISH LITERATURE PROFESSOR Appointment [facility] MRI [address] [place] [address] Ihsan Logan, [address] [place] [address] 02/26/2024 9:00 AM SPANISH LITERATURE PROFESSOR Appointment [facility] [address] [place] [address] [place] [address] [place] [address] [place] [address] [place] [address] 02/26/2024 9:15 AM SPANISH LITERATURE PROFESSOR Appointment [facility] Outpatient [facility]hab [address] [place] [address] [place] [address] [place] [address] [place] [address] [place] [address] 03/01/2024 9:00 AM SPANISH LITERATURE PROFESSOR Appointment [facility]patient [facility]hab [address] [place] [address] [place] [address] [place] [address] [place] [address] [place] [address] Lorene Branch, NUTRITION TEACHER 03/02/2024 12:27 PM SPANISH LITERATURE PROFESSOR Hospital Encounter [facility] [address] [address] [place] [address] [place] [address] 03/02/2024 12:27 PM SPANISH LITERATURE PROFESSOR - 03/02/2024 1:07 PM SPANISH LITERATURE PROFESSOR Surgery [facility] Surgery [address] [place] [address] [place] [address] [place] [address] MANIPULATION SHOULDER 03/05/2024 9:00 AM SPANISH LITERATURE PROFESSOR Appointment [facility]patient [facility]hab [address] [place] [address] [place] [address] [place] [address] Lorene Branch, NUTRITION TEACHER 03/08/2024 9:00 AM SPANISH LITERATURE PROFESSOR Appointment [facility]patient [facility]hab [address] [place] [address] [place] [address] [place] [address] Lorene Branch, NUTRITION TEACHER 03/11/2024 9:15 AM SPANISH LITERATURE PROFESSOR Appointment [facility]patient [facility]hab [address] [place] [address] [place] [address] [place] [address] Lorene Branch, NUTRITION TEACHER 03/15/2024 9:00 AM SPANISH LITERATURE PROFESSOR Appointment [facility]patient [facility]hab [address] [place] [address] [place] [address] [place] [address] Lorene Branch, NUTRITION TEACHER 03/18/2024 9:15 AM SPANISH LITERATURE PROFESSOR Appointment [facility]patient [facility]hab [address] [place] [address] [place] [address] [place] [address] Lorene Branch, NUTRITION TEACHER 03/22/2024 9:00 AM SPANISH LITERATURE PROFESSOR Appointment [facility]hab [address] [place] [address] [place] [address] [place] [address] Lorene Branch, NUTRITION TEACHER 03/25/2024 9:15 AM SPANISH LITERATURE PROFESSOR Appointment [facility] [address] [place] [address] [place] [address] [place] [address] Lorene Branch, NUTRITION TEACHER 04/21/2024 11:20 AM SPANISH LITERATURE PROFESSOR Office Visit [facility] Medical Group Family & Internal Medicine [facility] [address] [place] [phone] [place] [address] [place] [address] Scheduled Procedures Name Priority Associated Diagnoses Date/Ti me MANIPULATION SHOULDER Adhesive capsulitis of left shoulder 03/02/2024 12:27 PM SPANISH LITERATURE PROFESSOR INJECTION JOINT Adhesive capsulitis of left shoulder 03/02/2024 12:27 PM SPANISH LITERATURE PROFESSOR documented as of this encounter Visit Diagnoses Not on filedocumented in this encounter Additional Health Concerns Assessment Noted Time PHQ-9 Depression Total Score: 5 03/18/19 24 2:22 PM SPANISH LITERATURE PROFESSOR documented as of this encounter Care Teams Correction Officer [place] [facility] Relationship Specialty Start Date End Date Marv Young NP PCP - General NURSE PRACTITIONER ADULT HEALTH 03/11/23 09/14/23 documented as of this encounter
--- OUTSIDE RECORDS SUMMARY | 2024-02-12 08:38 | XMS_ITS | Encounter Summary ---
Author Organization [facility] Address [facility]6 [facility] [place] [address] [place] [address] Care Team Providers Care Fine Arts Packer Name Role Phone Marv Young NP Primary [...] st Contact Info) Description 02/12/2024 9:00 AM HOT ROLL LAMINATOR Appointment [facility] [address] [place] [address] [place] [address] [place] [address] [place] [address] [place] [address] 02/12/2024 2:00 PM HOT ROLL LAMINATOR Appointment [facility] MRI [address] [place] [address] [place] [address] [place] [address] 02/16/2024 9:00 AM HOT ROLL LAMINATOR Appointment [facility] Outpatient Rehab [address] [place] [address] [place] [address] [place] [address] [place] [address] [place] [address] 02/19/2024 8:45 AM HOT ROLL LAMINATOR Appointment [facility] Outpatient Rehab [address] [place] [address] [place] [address] [place] [address] [place] [address] [place] [address] 02/19/2024 9:00 AM HOT ROLL LAMINATOR Appointment [facility] Outpatient Rehab [address] [place] [address] [place] [address] [place] [address] [place] [address] [place] [address] 02/23/2024 9:00 AM HOT ROLL LAMINATOR Appointment [facility] Outpatient Rehab [address] [place] [address] [place] [address] [place] [address] [place] [address] [place] [address] 02/24/2024 1:30 PM HOT ROLL LAMINATOR Appointment [facility] [address] [place] [address] [place] [address] [place] [address] 02/26/2024 9:00 AM HOT ROLL LAMINATOR Appointment [facility] Outpatient Rehab [address] [place] [address] [place] [address] [place] [address] [place] [address] [place] [address] 02/26/2024 9:15 AM HOT ROLL LAMINATOR Appointment [facility] Outpatient Rehab [address] [place] [address] [place] [address] [place] [address] [place] [address] [place] [address] 03/01/2024 9:00 AM HOT ROLL LAMINATOR Appointment [facility] Outpatient Rehab [address] [place] [address] [place] [address] [place] [address] [place] [address] [place] [address] Lorene Branch, HIDE SPLITTER 03/02/2024 12:27 PM HOT ROLL LAMINATOR Hospital Encounter [facility] Surgery [address] [place] [address] [place] [address] [place] [address] 03/02/2024 12:27 PM HOT ROLL LAMINATOR - 03/02/2024 1:07 PM HOT ROLL LAMINATOR Surgery [address] [address] [place] [address] [place] [address] MANIPULATION SHOULDER 03/05/2024 9:00 AM HOT ROLL LAMINATOR Appointment [facility] Outpatient Rehab [address] [place] [address] [place] [address] [place] [address] Lorene Branch, HIDE SPLITTER 03/08/2024 9:00 AM HOT ROLL LAMINATOR Appointment [facility] Outpatient Rehab [address] [place] [address] [place] [address] [place] [address] Lorene Branch, HIDE SPLITTER 03/11/2024 9:15 AM HOT ROLL LAMINATOR Appointment [facility] Outpatient Rehab [address] [place] [address] [place] [address] [place] [address] Lorene Branch, HIDE SPLITTER 03/15/2024 9:00 AM HOT ROLL LAMINATOR Appointment [facility] [address] [place] [address] [place] [address] [place] [address] Lorene Branch, HIDE SPLITTER 03/18/2024 9:15 AM HOT ROLL LAMINATOR Appointment [facility] [address] [place] [address] [place] [address] [place] [address] Lorene Branch, HIDE SPLITTER 03/22/2024 9:00 AM HOT ROLL LAMINATOR Appointment [facility] [address] [place] [address] [place] [address] [place] [address] Lorene Branch, HIDE SPLITTER 03/25/2024 9:15 AM HOT ROLL LAMINATOR Appointment [facility] [address] [place] [address] [place] [address] [place] [address] Lorene Branch, HIDE SPLITTER 04/21/2024 11:20 AM HOT ROLL LAMINATOR Office Visit [facility] Medical Group Family & Internal Medicine - [place] [address] [place] [address] [place] [address] [place] [address] Scheduled Procedures Name Priority Associated Diagnoses Date/Ti me MANIPULATION SHOULDER Adhesive capsulitis of left shoulder 03/02/2024 12:27 PM HOT ROLL LAMINATOR INJECTION JOINT Adhesive capsulitis of left shoulder 03/02/2024 12:27 PM HOT ROLL LAMINATOR documented as of this encounter Visit Diagnoses Not on filedocumented in this encounter Additional Health Concerns Assessment Noted Time PHQ-9 Depression Total Score: 5 03/18/19 2:22 PM HOT ROLL LAMINATOR documented as of this encounter Care Teams Fine Arts Packer Relationship Specialty Start Date End Date Marv Young NP PCP - General NURSE PRACTITIONER ADULT HEALTH 03/11/23 09/14/23 documented as of this encounter
--- OUTSIDE RECORDS SUMMARY | 2024-02-12 08:38 | XMS_ITS | Encounter Summary ---
Author Organization [facility] Address [facility] [place] [address] [place] [address] Care Team Providers Care Lifeguard Name Role Phone Marv Young NP Primary [...] st Contact Info) Description 02/12/2024 9:00 AM ENDS DOWN CHECKER Appointment [facility] Outpatient Rehab [address] [place] [address] [place] [address] [place] [address] [place] [address] [place] [address] 02/12/2024 2:00 PM ENDS DOWN CHECKER Appointment [facility] MRI [address] [place] [address] [place] [address] [place] [address] 02/16/2024 9:00 AM ENDS DOWN CHECKER Appointment [facility]patient [facility]hab [address] [place] [address] [place] [address] [place] [address] [place] [address] [place] [address] 02/19/2024 8:45 AM ENDS DOWN CHECKER Appointment [facility]patient [facility]hab [address] [place] [address] [place] [address] [place] [address] [place] [address] [place] [address] 02/19/2024 9:00 AM ENDS DOWN CHECKER Appointment [facility]patient [facility]hab [address] [place] [address] [place] [address] [place] [address] [place] [address] [place] [address] 02/23/2024 9:00 AM ENDS DOWN CHECKER Appointment [facility]hab [address] [place] [address] [place] [address] [place] [address] [place] [address] [place] [address] 02/24/2024 1:30 PM ENDS DOWN CHECKER Appointment [facility] MRI [address] [place] [address] Ihsan Logan, [address] [place] [address] 02/26/2024 9:00 AM ENDS DOWN CHECKER Appointment [facility] Outpatient Rehab [address] [place] [address] [place] [address] [place] [address] [place] [address] [place] [address] 02/26/2024 9:15 AM ENDS DOWN CHECKER Appointment [facility] [address] [place] [address] [place] [address] [place] [address] [place] [address] [place] [address] 03/01/2024 9:00 AM ENDS DOWN CHECKER Appointment [facility]patient [facility]hab [address] [place] [address] [place] [address] [place] [address] [place] [address] [place] [address] Lorene Branch, TRACK TEMPLATE MAKER 03/02/2024 12:27 PM ENDS DOWN CHECKER Hospital Encounter [facility] Surgery [address] [place] [address] [place] [address] [place] [address] 03/02/2024 12:27 PM ENDS DOWN CHECKER - 03/02/2024 1:07 PM ENDS DOWN CHECKER Surgery [facility] Surgery [address] [place] [address] [place] [address] [place] [address] MANIPULATION SHOULDER 03/05/2024 9:00 AM ENDS DOWN CHECKER Appointment [facility] Outpatient Rehab [address] [place] [address] [place] [address] [place] [address] Lorene Branch, TRACK TEMPLATE MAKER 03/08/2024 9:00 AM ENDS DOWN CHECKER Appointment [facility] Outpatient Rehab [address] [place] [address] [place] [address] [place] [address] Lorene Branch, TRACK TEMPLATE MAKER 03/11/2024 9:15 AM ENDS DOWN CHECKER Appointment [facility] Outpatient Rehab [address] [place] [address] [place] [address] [place] [address] Lorene Branch, TRACK TEMPLATE MAKER 03/15/2024 9:00 AM ENDS DOWN CHECKER Appointment [facility] Outpatient Rehab [address] [place] [address] [place] [address] [place] [address] Lorene Branch, TRACK TEMPLATE MAKER 03/18/2024 9:15 AM ENDS DOWN CHECKER Appointment [facility]patient Rehab [address] [place] [address] [place] [address] [place] [address] Lorene Branch, TRACK TEMPLATE MAKER 03/22/2024 9:00 AM ENDS DOWN CHECKER Appointment [facility] Outpatient Rehab [address] [place] [address] [place] [address] [place] [address] Lorene Branch, TRACK TEMPLATE MAKER 03/25/2024 9:15 AM ENDS DOWN CHECKER Appointment [facility] Outpatient Rehab [address] [place] [address] [place] [address] [place] [address] Lorene Branch, TRACK TEMPLATE MAKER 04/21/2024 11:20 AM ENDS DOWN CHECKER Office Visit [facility] Medical Group Family & Internal Medicine - [address] [address] [place] [address] [place] [address] Scheduled Procedures Name Priority Associated Diagnoses Date/Ti me MANIPULATION SHOULDER Adhesive capsulitis of left shoulder 03/02/2024 12:27 PM ENDS DOWN CHECKER INJECTION JOINT Adhesive capsulitis of left shoulder 03/02/2024 12:27 PM ENDS DOWN CHECKER documented as of this encounter Visit Diagnoses Not on filedocumented in this encounter Additional Health Concerns Assessment Noted Time PHQ-9 Depression Total Score: 5 03/18/19 24 2:22 PM ENDS DOWN CHECKER documented as of this encounter Care Teams Lifeguard Relationship Specialty Start Date End Date Marv Young NP PCP - General NURSE PRACTITIONER ADULT HEALTH 03/11/23 09/14/23 documented as of this encounter
--- OUTSIDE RECORDS SUMMARY | 2024-02-12 08:38 | XMS_ITS | Encounter Summary ---
Author Organization [facility] Address [facility] [place] [address] [place] [address] Care Team Providers Care Plain Clothes Police Officer Name Role Phone Marv Young NP Primary Care Provide r Brennon Flores MD Primary Care Provider [phone] Holger Soriano Primary Care Provider [phone] Encounter Details Date Type Department Care Team (Late st Contact Info) Description 05/12/2023 [employer] Message Enc [facility] Medical [facility] Family Medicine - [place] [address] [facility] [place] [address] Kayla, [facility] Provider Screening Social History Tobacco Use Types [...] st Contact Info) Description 02/12/2024 9:00 AM MONITORING COORDINATOR Appointment [facility] Outpatient Rehab [address] [place] [address] [place] [address] [place] [address] [place] [address] [place] [address] 02/12/2024 2:00 PM MONITORING COORDINATOR Appointment [facility] [place] [address] [place] [address] [place] [address] [place] [address] 02/16/2024 9:00 AM MONITORING COORDINATOR Appointment [facility] Outpatient Rehab [address] [place] [address] [place] [address] [place] [address] [place] [address] [place] [address] 02/19/2024 8:45 AM MONITORING COORDINATOR Appointment [facility]patient Rehab [address] [place] [address] [place] [address] [place] [address] [place] [address] [place] [address] 02/19/2024 9:00 AM MONITORING COORDINATOR Appointment [facility] Outpatient Rehab [address] [place] [address] [place] [address] [place] [address] [place] [address] [place] [address] 02/23/2024 9:00 AM MONITORING COORDINATOR Appointment [facility] Outpatient Rehab [address] [place] [address] [place] [address] [place] [address] [place] [address] [place] [address] 02/24/2024 1:30 PM MONITORING COORDINATOR Appointment [address] [address] Ihsan Logan, [address] [place] [address] 02/26/2024 9:00 AM MONITORING COORDINATOR Appointment [facility] Outpatient Rehab [address] [place] [address] [place] [address] [place] [address] [place] [address] [place] [address] 02/26/2024 9:15 AM MONITORING COORDINATOR Appointment [facility] Outpatient Rehab [address] [place] [address] [place] [address] [place] [address] [place] [address] [place] [address] 03/01/2024 9:00 AM MONITORING COORDINATOR Appointment [facility] Outpatient Rehab [address] [place] [address] [place] [address] [place] [address] [place] [address] [place] [address] Lorene Branch, ROCK DUSTER 03/02/2024 12:27 PM MONITORING COORDINATOR Hospital Encounter [facility] Surgery [address] [place] [address] [place] [address] [place] [address] 03/02/2024 12:27 PM MONITORING COORDINATOR - 03/02/2024 1:07 PM MONITORING COORDINATOR Surgery [facility] Surgery [address] [place] [address] [place] [address] [place] [address] MANIPULATION SHOULDER 03/05/2024 9:00 AM MONITORING COORDINATOR Appointment [facility] Outpatient Rehab [address] [place] [address] [place] [address] [place] [address] Lorene Branch, ROCK DUSTER 03/08/2024 9:00 AM MONITORING COORDINATOR Appointment [facility] Outpatient Rehab [address] [place] [address] [place] [address] [place] [address] Lorene Branch, ROCK DUSTER 03/11/2024 9:15 AM MONITORING COORDINATOR Appointment [facility] [address] [place] [address] [place] [address] [place] [address] Lorene Branch, ROCK DUSTER 03/15/2024 9:00 AM MONITORING COORDINATOR Appointment [facility] [address] [place] [address] [place] [address] [place] [address] Lorene Branch, ROCK DUSTER 03/18/2024 9:15 AM MONITORING COORDINATOR Appointment [facility] [address] [place] [address] [place] [address] [place] [address] Lorene Branch, ROCK DUSTER 03/22/2024 9:00 AM MONITORING COORDINATOR Appointment [facility] [address] [place] [address] [place] [address] [place] [address] Lorene Branch, ROCK DUSTER 03/25/2024 9:15 AM MONITORING COORDINATOR Appointment [facility] Outpatient Rehab [address] [place] [address] [place] [address] [place] [address] Lorene Branch, ROCK DUSTER 04/21/2024 11:20 AM MONITORING COORDINATOR Office Visit [facility] Medical Group Family & Internal Medicine [facility] [address] [place] [address] [place] [address] [place] [address] Scheduled Procedures Name Priority Associated Diagnoses Date/Ti me MANIPULATION SHOULDER Adhesive capsulitis of left shoulder 03/02/2024 12:27 PM MONITORING COORDINATOR INJECTION JOINT Adhesive capsulitis of left shoulder 03/02/2024 12:27 PM MONITORING COORDINATOR documented as of this encounter Visit Diagnoses Not on filedocumented in this encounter Additional Health Concerns Infection Onset Date Last Indicated Resolved Time COVID-19 Rule Out 10/17/2023 10/17/2023 10/17/2023 10:57 AM CDT COVID-19 Rule Out 12/29/2023 12/29/2023 12/29/2023 12:59 PM MONITORING COORDINATOR Assessment Noted Time PHQ-9 Depression Total Score: 5 03/18/19 24 2:22 PM MONITORING COORDINATOR documented as of this encounter Care Teams Plain Clothes Police Officer Relationship Specialty Start Date End Date Marv Young NP PCP - General NURSE PRACTITIONER ADULT HEALTH 03/11/23 09/14/23 [place] [address] [facility] [address] [place] [address] PCP - General INTERNAL MEDICINE 09/15/23 09/15/23 [place] [address] [place] [address] PCP - General Physician [facility] 09/16/23 documented as of this encounter
--- OUTSIDE RECORDS SUMMARY | 2024-02-12 08:38 | XMS_ITS | Encounter Summary ---
Author Organization [facility] Address [facility] [place] [address] [place] [address] Care Team Providers Care Load Out Supervisor Name Role Phone Marv Young NP Primary [...] st Contact Info) Description 02/12/2024 9:00 AM SOLDER MAKING LABORER Appointment [facility] Outpatient Rehab [address] [place] [address] [place] [address] [place] [address] [place] [address] [place] [address] 02/12/2024 2:00 PM SOLDER MAKING LABORER Appointment [facility] MRI [address] [place] [address] [place] [address] [place] [address] 02/16/2024 9:00 AM SOLDER MAKING LABORER Appointment [facility] Outpatient Rehab [address] [place] [address] [place] [address] [place] [address] [place] [address] [place] [address] 02/19/2024 8:45 AM SOLDER MAKING LABORER Appointment [facility] Outpatient Rehab [address] [place] [address] [place] [address] [place] [address] [place] [address] [place] [address] 02/19/2024 9:00 AM SOLDER MAKING LABORER Appointment [facility] Outpatient Rehab [address] [place] [address] [place] [address] [place] [address] [place] [address] [place] [address] 02/23/2024 9:00 AM SOLDER MAKING LABORER Appointment [facility] Outpatient Rehab [address] [place] [address] [place] [address] [place] [address] [place] [address] [place] [address] 02/24/2024 1:30 PM SOLDER MAKING LABORER Appointment [facility] [address] [place] [address] [place] [address] [place] [address] 02/26/2024 9:00 AM SOLDER MAKING LABORER Appointment [facility] Outpatient Rehab [address] [place] [address] [place] [address] [place] [address] [place] [address] [place] [address] 02/26/2024 9:15 AM SOLDER MAKING LABORER Appointment [facility] Outpatient Rehab [address] [place] [address] [place] [address] [place] [address] [place] [address] [place] [address] 03/01/2024 9:00 AM SOLDER MAKING LABORER Appointment [facility] Outpatient Rehab [address] [place] [address] [place] [address] [place] [address] [place] [address] [place] [address] Lorene Branch, COMMAND POST SUPERINTENDENT 03/02/2024 12:27 PM SOLDER MAKING LABORER Hospital Encounter [facility] Surgery [id number] [place] [address] [place] [address] [place] [address] 03/02/2024 12:27 PM SOLDER MAKING LABORER - 03/02/2024 1:07 PM SOLDER MAKING LABORER Surgery [address] [address] [place] [address] [place] [address] MANIPULATION SHOULDER 03/05/2024 9:00 AM SOLDER MAKING LABORER Appointment [facility] Outpatient Rehab [address] [place] [address] [place] [address] [place] [address] Lorene Branch, COMMAND POST SUPERINTENDENT 03/08/2024 9:00 AM SOLDER MAKING LABORER Appointment [facility] Outpatient Rehab [address] [place] [address] [place] [address] [place] [address] Lorene Branch, COMMAND POST SUPERINTENDENT 03/11/2024 9:15 AM SOLDER MAKING LABORER Appointment [facility] Outpatient Rehab [address] [place] [address] [place] [address] [place] [address] Loerne Branch, COMMAND POST SUPERINTENDENT 03/15/2024 9:00 AM SOLDER MAKING LABORER Appointment [facility] [address] [place] [address] [place] [address] [place] [address] Lorene Branch, COMMAND POST SUPERINTENDENT 03/18/2024 9:15 AM SOLDER MAKING LABORER Appointment [facility] [address] [place] [address] [place] [address] [place] [address] Lorene Branch, COMMAND POST SUPERINTENDENT 03/22/2024 9:00 AM SOLDER MAKING LABORER Appointment [facility] [address] [place] [address] [place] [address] [place] [address] Lorene Branch, COMMAND POST SUPERINTENDENT 03/25/2024 9:15 AM SOLDER MAKING LABORER Appointment [facility] [address] [place] [address] [place] [address] [place] [address] Lorene Branch, COMMAND POST SUPERINTENDENT 04/21/2024 11:20 AM SOLDER MAKING LABORER Office Visit [facility] Family & Internal Medicine - [address] [address] [place] [address] [place] [address] [place] [address] Scheduled Procedures Name Priority Associated Diagnoses Date/Ti me MANIPULATION SHOULDER Adhesive capsulitis of left shoulder 03/02/2024 12:27 PM SOLDER MAKING LABORER INJECTION JOINT Adhesive capsulitis of left shoulder 03/02/2024 12:27 PM SOLDER MAKING LABORER documented as of this encounter Visit Diagnoses Not on filedocumented in this encounter Additional Health Concerns Assessment Noted Time PHQ-9 Depression Total Score: 5 03/18/19 2:22 PM SOLDER MAKING LABORER documented as of this encounter Care Teams Load Out Supervisor Relationship Specialty Start Date End Date Marv Young NP PCP - General NURSE PRACTITIONER ADULT HEALTH 03/11/23 09/14/23 documented as of this encounter
--- OUTSIDE RECORDS SUMMARY | 2024-02-12 08:38 | XMS_ITS | Encounter Summary ---
Author Organization [facility] Address [facility] [place] [address] [place] [address] Care Team Providers Care Openstack Developer Name Role Phone Marv Young NP [...] st Contact Info) Description 02/12/2024 9:00 AM WASH RACK OPERATOR Appointment [facility] Outpatient Rehab [address] [place] [address] [place] [address] [place] [address] [place] [address] [place] [address] 02/12/2024 2:00 PM WASH RACK OPERATOR Appointment [facility] MRI [address] [place] [address] [place] [address] [place] [address] 02/16/2024 9:00 AM WASH RACK OPERATOR Appointment [facility] Outpatient Rehab [address] [place] [address] [place] [address] [place] [address] [place] [address] [place] [address] 02/19/2024 8:45 AM WASH RACK OPERATOR Appointment [facility] Outpatient Rehab [address] [place] [address] [place] [address] [place] [address] [place] [address] [place] [address] 02/19/2024 9:00 AM WASH RACK OPERATOR Appointment [facility] Outpatient Rehab [address] [place] [address] [place] [address] [place] [address] [place] [address] [place] [address] 02/23/2024 9:00 AM WASH RACK OPERATOR Appointment [facility] Outpatient Rehab [address] [place] [address] [place] [address] [place] [address] [place] [address] [place] [address] 02/24/2024 1:30 PM WASH RACK OPERATOR Appointment [facility] MRI [address] [place] [address] Ihsan Logan, [address] [place] [address] 02/26/2024 9:00 AM WASH RACK OPERATOR Appointment [facility] Outpatient Rehab [address] [place] [address] [place] [address] [place] [address] [place] [address] [place] [address] 02/26/2024 9:15 AM WASH RACK OPERATOR Appointment [facility] Outpatient Rehab [address] [place] [address] [place] [address] [place] [address] [place] [address] [place] [address] 03/01/2024 9:00 AM WASH RACK OPERATOR Appointment [facility] Outpatient Rehab [address] [place] [address] [place] [address] [place] [address] [place] [address] [place] [address] Lorene Branch, GEOPHYSICAL OBSERVER 03/02/2024 12:27 PM WASH RACK OPERATOR Hospital Encounter [facility] Surgery [address] [place] [address] [place] [address] [place] [address] 03/02/2024 12:27 PM WASH RACK OPERATOR - 03/02/2024 1:07 PM WASH RACK OPERATOR Surgery [facility] Surgery [address] [place] [address] [place] [address] [place] [address] MANIPULATION SHOULDER 03/05/2024 9:00 AM WASH RACK OPERATOR Appointment [facility] Outpatient Rehab [address] [place] [address] [place] [address] [place] [address] Lorene Branch, GEOPHYSICAL OBSERVER 03/08/2024 9:00 AM WASH RACK OPERATOR Appointment [facility] Outpatient Rehab [address] [place] [address] [place] [address] [place] [address] Lorene Branch, GEOPHYSICAL OBSERVER 03/11/2024 9:15 AM WASH RACK OPERATOR Appointment [facility] Outpatient Rehab [address] [place] [address] [place] [address] [place] [address] Lorene Branch, GEOPHYSICAL OBSERVER 03/15/2024 9:00 AM WASH RACK OPERATOR Appointment [facility] Outpatient Rehab [address] [place] [address] [place] [address] [place] [address] Lorene Branch, GEOPHYSICAL OBSERVER 03/18/2024 9:15 AM WASH RACK OPERATOR Appointment [facility] Outpatient Rehab [address] [place] [address] [place] [address] [place] [address] Lorene Branch, GEOPHYSICAL OBSERVER 03/22/2024 9:00 AM WASH RACK OPERATOR Appointment [facility] Outpatient Rehab [address] [place] [address] [place] [address] [place] [address] Lorene Branch, GEOPHYSICAL OBSERVER 03/25/2024 9:15 AM WASH RACK OPERATOR Appointment [facility] Outpatient Rehab [address] [place] [address] [place] [address] [place] [address] Lorene Branch, GEOPHYSICAL OBSERVER 04/21/2024 11:20 AM WASH RACK OPERATOR Office Visit [facility] Medical Group Family & Internal Medicine - [address] [address] [place] [address] [place] [address] Scheduled Procedures Name Priority Associated Diagnoses Date/Ti me MANIPULATION SHOULDER Adhesive capsulitis of left shoulder 03/02/2024 12:27 PM WASH RACK OPERATOR INJECTION JOINT Adhesive capsulitis of left shoulder 03/02/2024 12:27 PM WASH RACK OPERATOR documented as of this encounter Visit Diagnoses Not on filedocumented in this encounter Additional Health Concerns Assessment Noted Time PHQ-9 Depression Total Score: 5 03/18/19 24 2:22 PM WASH RACK OPERATOR documented as of this encounter Care Teams Openstack Developer Relationship Specialty Start Date End Date Marv Young NP PCP - General NURSE PRACTITIONER ADULT HEALTH 03/11/23 09/14/23 documented as of this encounter
--- OUTSIDE RECORDS SUMMARY | 2024-02-12 08:38 | XMS_ITS | Encounter Summary ---
Author Organization [facility] Address [facility] [facility]. [place], [place] [address] [place] [address] Care Team Providers Care General Office Worker Name Role Phone Marv Quirgoa NP Primary Care Provide r Reason for Visit * Reason Comments Congestion Chest rattle, draina ge. Was diagnosed with RSV on Friday. Encounter Details Date Type Department Care Team (Late st Contact Info) Description 04/01/2023 1:20 PM MOLD FILLER AND DRAINER Office Visit [facility] Medical [facility] Family & Internal Medicine [address] [address] Ruthy Siddiqui NP [address] [place] [address], [address] [place] [address] Congestion (Chest rattle, drainage. Was diagnosed with [...] Comments Blood Pressure 139/87 04/01/2023 12:53 PM MOLD FILLER AND DRAINER Pulse 95 04/01/2023 12:53 PM MOLD FILLER AND DRAINER Temperature 36.8 ??C (98.2 ??F) 04/01/2023 12:[address] Respiratory Rate 20 04/01/2023 12:53 PM MOLD FILLER AND DRAINER Oxygen Saturation 97% 04/01/2023 12:53 PM MOLD FILLER AND DRAINER Inhaled Oxygen Concentration - - Weight 86.2 kg (190 lb) 04/01/2023 12:53 PM MOLD FILLER AND DRAINER Height 157.5 cm (5' 2 ) 04/01/2023 12:53 PM MOLD FILLER AND DRAINER Body Mass Index 34.75 04/01/2023 12:53 PM MOLD FILLER AND DRAINER documented in this encounter Patient Instructions * Attachments The following attachments cannot be sent through Care Everywhere. * Respiratory Syncytial Virus Discharge Instructions, Adult (Samoan) documented in this encounter Progress Notes * Ruthy Siddiqui NP - 04/01/2023 1:20 PM CST Reason for Visit: Congestion (Chest rattle, drainage. Was diagnosed with RSV on Friday. ) History of Present Illness: Patient presents to [facility] with: RSV-- she was dx with RSV 1 week ago at [facility]. She was d/c with prednisone. She finished [...] the day of the encounter. This includes ggio-tg-xpdy and eag-gogj-gd-face time I provided on the day of the encounter & excludes time spent performing separately reportable services. RAVI ARGUELLO Referring Provider: No ref. provider found PCP: MARV QUIROGA NP Cosigned by Blue Paul MD at 04/02/2023 8:11 AM MOLD FILLER AND DRAINER FILLER AND DRAINER FILLER AND DRAINER documented in this encounter Plan of Treatment Upcoming Encounters Date Type Department Care Team (Late st Contact Info) Description 02/12/2024 9:00 AM MOLD FILLER AND DRAINER Appointment [facility] Outpatient Rehab [address] [place], [place] [address] [place] [address] [place] [address] [place] [address] [place] [address] 02/12/2024 2:00 PM MOLD FILLER AND DRAINER Appointment [facility] MRI [address] [place] [address] [place] [address] [place] [address] 02/16/2024 9:00 AM MOLD FILLER AND DRAINER Appointment [facility] Outpatient Rehab [address] [place] [address] [place] [address] [place] [address] [place] [address] [place] [address] 02/19/2024 8:45 AM MOLD FILLER AND DRAINER Appointment [facility] Outpatient Rehab [address] [place] [address] [place] [address] [place] [address] [place] [address] [place] [address] 02/19/2024 9:00 AM MOLD FILLER AND DRAINER Appointment [facility] Outpatient Rehab [address] [place] [address] [place] [address] [place] [address] [place] [address] [place] [address] 02/23/2024 9:00 AM MOLD FILLER AND DRAINER Appointment [facility] Outpatient Rehab [address] [place] [address] [place] [address] [place] [address] [place] [address] [place] [address] 02/24/2024 1:30 PM MOLD FILLER AND DRAINER Appointment [facility] [address] [place] [address] [place] [address] [place] [address] 02/26/2024 9:00 AM MOLD FILLER AND DRAINER Appointment [facility] Outpatient Rehab [address] [place] [address] [place] [address] [place] [address] [place] [address] [place], [place] [address] 02/26/2024 9:15 AM MOLD FILLER AND DRAINER Appointment [facility] Outpatient Rehab [address] [place] [address] [place] [address] [place] [address] [place] [address] [place] [address] 03/01/2024 9:00 AM MOLD FILLER AND DRAINER Appointment [facility] Outpatient Rehab [address] [place] [address] [place] [address] [place] [address] [place] [address] [place] [address] Lorene Branch, BRANCH LOGISTICS SUPERVISOR 03/02/2024 12:27 PM MOLD FILLER AND DRAINER Hospital Encounter [facility] [address] [place] [address] [place] [address] [place] [address] 03/02/2024 12:27 PM MOLD FILLER AND DRAINER - 03/02/2024 1:07 PM MOLD FILLER AND DRAINER Surgery [address] [address] [place] [address] [place] [address] MANIPULATION SHOULDER 03/05/2024 9:00 AM MOLD FILLER AND DRAINER Appointment [facility] Outpatient Rehab [address] [place] [address] [place] [address] [place] [address] Lorene Branch, BRANCH LOGISTICS SUPERVISOR 03/08/2024 9:00 AM MOLD FILLER AND DRAINER Appointment [facility] Outpatient Rehab [address] [place] [address] [place] [address] [place] [address] Lorene Branch, BRANCH LOGISTICS SUPERVISOR 03/11/2024 9:15 AM MOLD FILLER AND DRAINER Appointment [facility] Outpatient Rehab [address] [place] [address] [place] [address] [place] [address] Lorene Branch, BRANCH LOGISTICS SUPERVISOR 03/15/2024 9:00 AM MOLD FILLER AND DRAINER Appointment [facility] Outpatient Rehab [address] [place] [address] [place] [address] [place] [address] Lorene Branch, BRANCH LOGISTICS SUPERVISOR 03/18/2024 9:15 AM MOLD FILLER AND DRAINER Appointment [facility] Outpatient Rehab [address] [place] [address] [place] [address] [place] [address] Lorene Branch, BRANCH LOGISTICS SUPERVISOR 03/22/2024 9:00 AM MOLD FILLER AND DRAINER Appointment [facility] Outpatient Rehab [address] [place] [address] [place] [address] [place] [address] Lorene Branch, BRANCH LOGISTICS SUPERVISOR 03/25/2024 9:15 AM MOLD FILLER AND DRAINER Appointment [facility] Outpatient Rehab [address] [place] [address] [place] [address] [place] [address] Lorene Branch, BRANCH LOGISTICS SUPERVISOR 04/21/2024 11:20 AM MOLD FILLER AND DRAINER Office Visit [facility] Family & Internal Medicine [address] [address] [place] [address] [place] [address] Scheduled Procedures Name Priority Associated Diagnoses Date/Ti me MANIPULATION SHOULDER Adhesive capsulitis of left shoulder 03/02/2024 12:27 PM MOLD FILLER AND DRAINER INJECTION JOINT Adhesive capsulitis of left shoulder 03/02/2024 12:27 PM MOLD FILLER AND DRAINER documented as of this encounter Visit Diagnoses Diagnosis Acute non-recurrent sinusitis, unspecified location- Primary Acute cough Wheezing RSV/bronchiolitis Acute bronchiolitis due to respiratory syncytial virus (RSV) Adhesive capsulitis of left shoulder Adhesive capsulitis of shoulder documented in this encounter Additional Health Concerns Assessment Noted Time PHQ-9 Depression Total Score: 5 03/18/19 24 2:22 PM MOLD FILLER AND DRAINER documented as of this encounter Care Teams General Office Worker Relationship Specialty Start Date End Date Marv Quiroga NP PCP - General NURSE PRACTITIONER ADULT HEALTH 03/11/23 09/14/23 documented as of this encounter
--- OUTSIDE RECORDS SUMMARY | 2024-02-12 08:38 | XMS_ITS | Encounter Summary ---
Author Organization [facility] Address [facility]6 [facility] [place] [address] [place] [address] Care Team Providers Care Cnc Router Operator Name Role Phone Marv Young AUTOMATIC PRESSER Primary Care Provide r Reason for Visit * Reason Comments Follow Up Encounter Details Date Type Department Care Team (Late st Contact Info) Description 05/16/2023 2:20 PM CDT Office Visit [facility] Medical Group Family & Internal Medicine [address] [address] Marv Young, AUTOMATIC PRESSER [address] [place] [address] [place] [address] Follow Up Social History Tobacco [...] index is 34.57 kg/m??. Assessment and Plan Oumou was seen today for acute bicep strain. [...] st Contact Info) Description 02/12/2024 9:00 AM WEB MASTER Appointment [facility] Outpatient Rehab [address] [place] [address] [place] [address] [place] [address] [place] [address] [place] [address] 02/12/2024 2:00 PM WEB MASTER Appointment [facility] [place] [address] [place] [address] [place] [address] [place] [address] 02/16/2024 9:00 AM WEB MASTER Appointment [facility] Outpatient Rehab [address] [place] [address] [place] [address] [place] [address] [place] [address] [place] [address] 02/19/2024 8:45 AM WEB MASTER Appointment [facility] Outpatient Rehab [address] [place] [address] [place] [address] [place] [address] [place] [address] [place] [address] 02/19/2024 9:00 AM WEB MASTER Appointment [facility] Outpatient Rehab [address] [place] [address] [place] [address] [place] [address] [place] [address] [place] [address] 02/23/2024 9:00 AM WEB MASTER Appointment [facility] Outpatient Rehab [address] [place] [address] [place] [address] [place] [address] [place] [address] [place] [address] 02/24/2024 1:30 PM WEB MASTER Appointment [facility] MRI [address] [place] [address] [place] [address] [place] [address] 02/26/2024 9:00 AM WEB MASTER Appointment [facility] Outpatient Rehab [address] [place] [address] [place] [address] [place] [address] [place] [address] [place] [address] 02/26/2024 9:15 AM WEB MASTER Appointment [facility] Outpatient Rehab [address] [place] [address] [place] [address] [place] [address] [place] [address] [place] [address] 03/01/2024 9:00 AM WEB MASTER Appointment [facility] Outpatient Rehab [address] [place] [address] [place] [address] [place] [address] [place] [address] [place] [address] Lorene Branch, TUB RIDER 03/02/2024 12:27 PM WEB MASTER Hospital Encounter [facility] [address] [place] [address] [place] [address] [place] [address] 03/02/2024 12:27 PM WEB MASTER - 03/02/2024 1:07 PM WEB MASTER Surgery [facility] Surgery [address] [place] [address] [place] [address] [place] [address] MANIPULATION SHOULDER 03/05/2024 9:00 AM WEB MASTER Appointment [facility] Outpatient Rehab [address] [place] [address] [place] [address] [place] [address] Lorene Branch, TUB RIDER 03/08/2024 9:00 AM WEB MASTER Appointment [facility] Outpatient Rehab [address] [place] [address] [place] [address] [place] [address] Lorene Branch, TUB RIDER 03/11/2024 9:15 AM WEB MASTER Appointment [facility] Outpatient Rehab [address] [place] [address] [place] [address] [place] [address] Lorene Branch, TUB RIDER 03/15/2024 9:00 AM WEB MASTER Appointment [facility] Outpatient Rehab [address] [place] [address] [place] [address] [place] [address] Lorene Branch, TUB RIDER 03/18/2024 9:15 AM WEB MASTER Appointment [facility] Outpatient Rehab [address] [place] [address] [place] [address] [place] [address] Lorene Branch, TUB RIDER 03/22/2024 9:00 AM WEB MASTER Appointment [facility] Outpatient Rehab [address] [place] [address] [place] [address] [place] [address] Lorene Branch, TUB RIDER 03/25/2024 9:15 AM WEB MASTER Appointment [facility] [address] [place] [address] [place] [address] [place] [address] Lorene Branch, TUB RIDER 04/21/2024 11:20 AM WEB MASTER Office Visit [facility] Medical Group Family & Internal Medicine - [address] [phone] [place] [address] [place] [address] Scheduled Procedures Name Priority Associated Diagnoses Date/Ti me MANIPULATION SHOULDER Adhesive capsulitis of left shoulder 03/02/2024 12:27 PM WEB MASTER INJECTION JOINT Adhesive capsulitis of left shoulder 03/02/2024 12:27 PM WEB MASTER documented as of this encounter Visit Diagnoses Diagnosis Chronic left shoulder pain- Primary Pain in joint, shoulder region Tendinopathy of left biceps tendon Strain of left biceps, initial encounter Adhesive capsulitis of left shoulder Adhesive capsulitis of shoulder documented in this encounter Additional Health Concerns Assessment Noted Time PHQ-9 Depression Total Score: 5 03/18/19 2:22 PM WEB MASTER documented as of this encounter Care Teams Cnc Router Operator Relationship Specialty Start Date End Date Marv Young NP PCP - General NURSE PRACTITIONER ADULT HEALTH 03/11/23 09/14/23 documented as of this encounter
--- OUTSIDE RECORDS SUMMARY | 2024-02-12 08:38 | XMS_ITS | Encounter Summary ---
Author Organization [facility] Address Formerly [facility], [facility]. [place], [place] [address] [place] [address] Care Team Providers Care Piece Worker Name Role Phone Marv Quiroga NP Primary Care Provide r Reason for Referral * Imaging (Emergency) - Closed Specialty Diagnoses / Procedures Referred By Contac t Referred To Contact RADIOLOGY Diagnoses Post concussion syndrome Aphasia Procedures MRI BRAIN WO CON MRI BRAIN WO CON Marv Quiroga, GRACE Phone: tel: fax: Referral ID Status Reason Start Date Expiration Date Visits Re quested Visits Authorized [id number] Closed 03/19/2023 03/19/2024 1 1 FORM BEATER Reason for Visit * Imaging (Emergency) - Closed Specialty Diagnoses / Procedures Referred By Contac jeanne Referred To Contact RADIOLOGY Diagnoses Post concussion syndrome Aphasia Procedures MRI BRAIN WO CON MRI BRAIN WO CON Marv Quiroga, GRACE Phone: tel: fax: Referral ID Status Reason Start Date Expiration Date Visits Re quested Visits Authorized [id number] Closed 03/19/2023 03/19/2024 1 1 Encounter Details Date Type Department Care Team (Latest Contact Info) Description 03/20/2023 8:25 AM PLATFORM BEATER - 03/20/2023 11:59 PM PLATFORM BEATER Hospital Encounter [facility] [place] [address] Marv Quiroga, GRACE [address] [place] [address] Discharge Disposition: Home or Self Care (Routine [...] MG tabletIndications :Bipolar I disorder with depression ([facility]) Take 1 tablet (100 mg total) by mouth nightly at bedtime. 90 tablet 03/18/2023 4 semaglutide (OZEMPIC) 1 mg/dose injection (PEN)Indications: Type 2 diabetes mellitus without complication, with long-term current use of insulin ([facility]) Inject 1 mg into the skin [...] Contact Info) Description 02/12/2024 9:00 AM PLATFORM BEATER Appointment [facility] [address] [place], [place] [id number] [place] [address] [place], [place] [id number] [place] [address] [place] [address] 02/12/2024 2:00 PM PLATFORM BEATER Appointment [address] [address] [place] [address] [place] [address] 02/16/2024 9:00 AM PLATFORM BEATER Appointment [facility] [address] [place] [address] [place] [address] [place] [address] [place] [address] [place] [address] 02/19/2024 8:45 AM PLATFORM BEATER Appointment [facility] [address] [place] [address] [place] [address] [place] [address] [place] [address] [place] [address] 02/19/2024 9:00 AM PLATFORM BEATER Appointment [facility] [address] [place] [address] [place] [address] [place] [address] [place] [address] [place] [address] 02/23/2024 9:00 AM PLATFORM BEATER Appointment [facility] [address] [place] [address] [place] [address] [place] [address] [place] [address] [place] [address] 02/24/2024 1:30 PM PLATFORM BEATER Appointment [address] [address] Ihsan Logan [address] [place] [address] 02/26/2024 9:00 AM PLATFORM BEATER Appointment [facility] [address] [place] [address] [place] [address] [place] [address] [place] [address] [place] [address] 02/26/2024 9:15 AM PLATFORM BEATER Appointment [facility]hab [address] [place] [address] [place] [address] [place] [address] [place] [address] [place] [address] 03/01/2024 9:00 AM PLATFORM BEATER Appointment [facility]hab [address] [place] [address] [place] [address] [place] [address] [place] [address] [place] [address] Lorene Branch, BAG TURNER 03/02/2024 12:27 PM PLATFORM BEATER Hospital Encounter [facility] [address] [place] [address] [place] [address] [place] [address] 03/02/2024 12:27 PM PLATFORM BEATER - 03/02/2024 1:07 PM PLATFORM BEATER Surgery [facility] Surgery [address] [place] [address] [place] [address] [place] [address] MANIPULATION SHOULDER 03/05/2024 9:00 AM PLATFORM BEATER Appointment [facility] [address] [place] [address] [place] [address] [place] [address] Lorene Branch, BAG TURNER 03/08/2024 9:00 AM PLATFORM BEATER Appointment [facility] [address] [place] [address] [place] [address] [place] [address] Lorene Branch, BAG TURNER 03/11/2024 9:15 AM PLATFORM BEATER Appointment [facility] [address] [place] [address] [place] [address] [place] [address] Lorene Branch, BAG TURNER 03/15/2024 9:00 AM PLATFORM BEATER Appointment [facility] [address] [place] [address] [place] [address] [place] [address] Lorene Branch, BAG TURNER 03/18/2024 9:15 AM PLATFORM BEATER Appointment [facility] [address] [place] [address] [place] [address] [place] [address] Lorene Branch, BAG TURNER 03/22/2024 9:00 AM PLATFORM BEATER Appointment [facility] [address] [place] [address] [place] [address] [place] [address] Lorene Branch, BAG TURNER 03/25/2024 9:15 AM PLATFORM BEATER Appointment [facility] [address] [place] [address] [place] [address] [place] [address] Lorene Branch, BAG TURNER 04/21/2024 11:20 AM PLATFORM BEATER Office Visit [facility] Family & Internal Medicine - [place] [address] [place] [address] [place] [address] [place] [address] Scheduled Procedures Name Priority Associated Diagnoses Date/Ti me MANIPULATION SHOULDER Adhesive capsulitis of left shoulder 03/02/2024 12:27 PM PLATFORM BEATER INJECTION JOINT Adhesive capsulitis of left shoulder 03/02/2024 12:27 PM PLATFORM BEATER documented as of this encounter Procedures Procedure Name Priority Date/Time Associated Diagnosis Comments MRI BRAIN WO CON STAT 03/20/2023 9:18 AM PLATFORM BEATER Post concussion syndrome Aphasia documented in this encounter Results * MRI BRAIN WO CON (03/20/2023 9:18 AM PLATFORM BEATER) Anatomical Region Laterality Modality Head Magnetic Resonan ce 03/20/2023 9:18 AM PLATFORM BEATER Impressions 03/20/2023 9:23 AM PLATFORM BEATER IMPRESSION: 1. Soft tissue edema along the [...] 03/20/2023 9:18 AM Narrative 03/20/2023 9:23 AM PLATFORM BEATER INDICATION: Aphasia. Post concussion syndrome. History of [...] Total Score: 5 03/18/19 24 2:22 PM PLATFORM BEATER documented as of this encounter Care Teams Piece Worker Relationship Specialty Start Date End Date Marv Quiroga NP PCP - General NURSE PRACTITIONER ADULT HEALTH 03/11/23 09/14/23 documented as of this encounter
--- OUTSIDE RECORDS SUMMARY | 2024-02-12 08:39 | XMS_ITS | Encounter Summary ---
Author Organization [facility] Address Replaced by [facility] [place] [address] [place] [address] Care Team Providers Care Senior Core Java Developer Name Role Phone Wilmer Carnes MD Primary Care Provider [phone] Reason for Visit * Reason Comments Eye Pain Encounter Details Date Type Department Care Team (Late st Contact Info) Description 09/03/2020 7:42 AM CDT - 09/03/2020 8:19 AM CDT Emergency [facility] Emergency Room [address] [place] [address] Rand Abbott MD [address] [place] [address] [id number] Eye Pain Discharge Disposition: Home or Self [...] Care Everywhere. * Conjunctivitis (Pinkeye) Discharge Instructions (Japanese) documented in this encounter Medications at Time [...] Discharge Rand Abbott MD 09/03/20 0819 * Emily Contreras RN - 09/03/2020 7:47 AM CDT [...] st Contact Info) Description 02/12/2024 9:00 AM PROPERTY FIELD INSPECTOR Appointment [facility] [address] [place] [address] [place] [address] [place] [address] [place] [address] [place] [address] 02/12/2024 2:00 PM PROPERTY FIELD INSPECTOR [facility] [address] [place] [address] [place] [address] [place] [address] 02/16/2024 9:00 AM PROPERTY FIELD INSPECTOR [facility]ointment [facility] [address] [place] [address] [place] [address] [place] [address] [place] [address] [place] [address] 02/19/2024 8:45 AM PROPERTY FIELD INSPECTOR Appointment [facility]hab [address] [place] [address] [place] [address] [place] [address] [place] [address] [place] [address] 02/19/2024 9:00 AM PROPERTY FIELD INSPECTOR Appointment [facility] [address] [place] [address] [place] [address] [place] [address] [place] [address] [place] [address] 02/23/2024 9:00 AM PROPERTY FIELD INSPECTOR Appointment [facility] [address] [place] [address] [place] [address] [place] [address] [place] [address] [place] [address] 02/24/2024 1:30 PM PROPERTY FIELD INSPECTOR Appointment [facility] [address] [place] [address] [place] [address] [place] [address] 02/26/2024 9:00 AM PROPERTY FIELD INSPECTOR Appointment [facility] [address] [place] [address] [place] [address] [place] [address] [place] [address] [place] [address] 02/26/2024 9:15 AM PROPERTY FIELD INSPECTOR Appointment [facility] [address] [place] [address] [place] [address] [place] [address] [place] [address] [place] [address] 03/01/2024 9:00 AM PROPERTY FIELD INSPECTOR Appointment [facility]hab [address] [place] [address] [place] [address] [place] [address] [place] [address] [place] [address] Lorene Branch, PEDIATRIC RADIOLOGIST 03/02/2024 12:27 PM PROPERTY FIELD INSPECTOR Hospital Encounter [facility] Surgery [address] [place] [address] [place] [address] [place] [address] 03/02/2024 12:27 PM PROPERTY FIELD INSPECTOR - 03/02/2024 1:07 PM PROPERTY FIELD INSPECTOR Surgery [facility] Surgery [address] [place] [address] [place] [address] [place] [address] MANIPULATION [facility] 03/05/2024 9:00 AM PROPERTY FIELD INSPECTOR Appointment [facility]hab [address] [place] [address] [place] [address] [place] [address] Lorene Branch, PEDIATRIC RADIOLOGIST 03/08/2024 9:00 AM PROPERTY FIELD INSPECTOR Appointment [facility]hab [address] [place] [address] [place] [address] [place] [address] Lorene Branch, PEDIATRIC RADIOLOGIST 03/11/2024 9:15 AM PROPERTY FIELD INSPECTOR Appointment [facility] [address] [place] [address] [place] [address] [place] [address] Lorene Branch, PEDIATRIC RADIOLOGIST 03/15/2024 9:00 AM PROPERTY FIELD INSPECTOR Appointment [facility]hab [address] [place] [address] [place] [address] [place] [address] Lorene Branch, PEDIATRIC RADIOLOGIST 03/18/2024 9:15 AM PROPERTY FIELD INSPECTOR Appointment [facility] [address] [place] [address] [place] [address] [place] [address] Lorene Branch, PEDIATRIC RADIOLOGIST 03/22/2024 9:00 AM PROPERTY FIELD INSPECTOR Appointment [facility] [address] [place] [address] [place] [address] [place] [address] Lorene Branch, PEDIATRIC RADIOLOGIST 03/25/2024 9:15 AM PROPERTY FIELD INSPECTOR Appointment [facility]hab [address] [place] [address] [place] [address] [place], [place] [address] Lorene Branch, PEDIATRIC RADIOLOGIST 04/21/2024 11:20 AM PROPERTY FIELD INSPECTOR Office Visit [facility] Family & Internal Medicine - [place] [address] [place] [phone] [place] [address] [place] [address] Scheduled Procedures Name Priority Associated Diagnoses Date/Ti me MANIPULATION SHOULDER Adhesive capsulitis of left shoulder 03/02/2024 12:27 PM PROPERTY FIELD INSPECTOR INJECTION JOINT Adhesive capsulitis of left shoulder 03/02/2024 12:27 PM PROPERTY FIELD INSPECTOR documented as of this encounter Visit [...] ELVIE) documented in this encounter Care Teams Senior Core Java Developer Relationship Specialty Start Date End Date Wilmer Carnes MD [address] [place] [address] PCP - General FAMILY PRACTICE 09/03/20 03/10/23 documented as of this encounter
--- OUTSIDE RECORDS SUMMARY | 2024-02-12 08:39 | XMS_ITS | Encounter Summary ---
Author Organization [facility] Address [facility] [place] [address] [place] [address] Care Team Providers Care Hotbed Operator Name Role Phone , Joann Mills MD Primary Care Provider Unavailable Encounter Details Date Type Department Care Team (Late st Contact Info) Description 10/29/2012 Abstract [place] [address] , Generic ConversionMD Social History [...] st Contact Info) Description 02/12/2024 9:00 AM ELECTROMECHANICAL ASSEMBLER Appointment [facility]patient [facility]hab [address] [place] [address] [place] [address] [place] [address] [place] [address] [place] [address] 02/12/2024 2:00 PM ELECTROMECHANICAL ASSEMBLER Appointment [facility] [place] [address] [place] [address] [place] [address] [place] [address] 02/16/2024 9:00 AM ELECTROMECHANICAL ASSEMBLER Appointment [facility]patient [facility] [address] [place] [address] [place] [address] [place] [address] [place] [address] [place] [address] 02/19/2024 8:45 AM ELECTROMECHANICAL ASSEMBLER Appointment [facility] [address] [place] [address] [place] [address] [place] [address] [place] [address] [place] [address] 02/19/2024 9:00 AM ELECTROMECHANICAL ASSEMBLER Appointment [facility] [address] [place] [address] [place] [address] [place] [address] [place] [address] [place] [address] 02/23/2024 9:00 AM ELECTROMECHANICAL ASSEMBLER Appointment [facility] [address] [place] [address] [place] [address] [place] [address] [place] [address] [place] [address] 02/24/2024 1:30 PM ELECTROMECHANICAL ASSEMBLER Appointment [facility] MRI [address] [place] [address] [place] [address] [place] [address] 02/26/2024 9:00 AM ELECTROMECHANICAL ASSEMBLER Appointment [facility]patient [facility]hab [address] [place] [address] [place] [address] [place] [address] [place] [address] [place] [address] 02/26/2024 9:15 AM ELECTROMECHANICAL ASSEMBLER Appointment [facility] [address] [place] [address] [place] [address] [place] [address] [place] [address] [place] [address] 03/01/2024 9:00 AM ELECTROMECHANICAL ASSEMBLER Appointment [facility] [address] [place] [address] [place] [address] [place] [address] [place] [address] [place] [address] Lorene Branch, ICT CUSTOMER SUPPORT OFFICER 03/02/2024 12:27 PM ELECTROMECHANICAL ASSEMBLER Hospital Encounter [facility] [address] [place] [address] [place] [address] [place] [address] 03/02/2024 12:27 PM ELECTROMECHANICAL ASSEMBLER - 03/02/2024 1:07 PM ELECTROMECHANICAL ASSEMBLER Surgery [facility] Surgery [address] [place] [address] [place] [address] [place] [address] MANIPULATION SHOULDER 03/05/2024 9:00 AM ELECTROMECHANICAL ASSEMBLER Appointment [facility] [address] [place] [address] [place] [address] [place] [address] Lorene Branch, ICT CUSTOMER SUPPORT OFFICER 03/08/2024 9:00 AM ELECTROMECHANICAL ASSEMBLER Appointment [facility] [address] [place] [address] [place] [address] [place] [address] Lorene Branch, ICT CUSTOMER SUPPORT OFFICER 03/11/2024 9:15 AM ELECTROMECHANICAL ASSEMBLER Appointment [facility] [address] [place] [address] [place] [address] [place] [address] Lorene Branch, ICT CUSTOMER SUPPORT OFFICER 03/15/2024 9:00 AM ELECTROMECHANICAL ASSEMBLER Appointment [facility] [address] [place] [address] [place] [address] [place] [address] Lorene Branch, ICT CUSTOMER SUPPORT OFFICER 03/18/2024 9:15 AM ELECTROMECHANICAL ASSEMBLER Appointment [facility] [address] [place] [address] [place] [address] [place] [address] Lorene Branch, ICT CUSTOMER SUPPORT OFFICER 03/22/2024 9:00 AM ELECTROMECHANICAL ASSEMBLER Appointment [facility] [address] [place] [address] [place] [address] [place] [address] Lorene Branch, ICT CUSTOMER SUPPORT OFFICER 03/25/2024 9:15 AM ELECTROMECHANICAL ASSEMBLER [facility]ment [facility] [address] [place] [address] [place] [address] [place] [address] Lorene Branch, ICT CUSTOMER SUPPORT OFFICER 04/21/2024 11:20 AM ELECTROMECHANICAL ASSEMBLER Office Visit [facility] Family & Internal Medicine - [address] [phone] [place] [address] [place] [address] Scheduled Procedures Name Priority Associated Diagnoses Date/Ti me MANIPULATION SHOULDER Adhesive capsulitis of left shoulder 03/02/2024 12:27 PM ELECTROMECHANICAL ASSEMBLER INJECTION JOINT Adhesive capsulitis of left shoulder 03/02/2024 12:27 PM ELECTROMECHANICAL ASSEMBLER documented as of this encounter Visit Diagnoses Diagnosis Posttraumatic stress disorder Adhesive capsulitis of left shoulder Adhesive capsulitis of shoulder documented in this encounter Care Teams Hotbed Operator Relationship Specialty Start Date End Date Joann Granados, PCP - General 10/29/12 documented as of this encounter
--- OUTSIDE RECORDS SUMMARY | 2024-02-12 08:58 | XMS_ITS | Clinical Summary ---
Author Organization [facility] Address [address] [place] [address] Phone Care Team Providers Care Materials Associate Name Role Phone Bhavik Joyner Carl DPM Unavailable [phone] Kaylynn Alvarez APRN, WOOD DRILLING MACHINE OPERATOR Primary Care Provider [phone] Allergies Active Allergy Reactions Criticality Noted Date [...] Type 2 diabetes mellitus with hyperglycemia, unspecified mcc insulin use status from Last 3 Months or Most Recently Relevant to Health Maintenance Results * (ABNORMAL) HEMOGLOBIN A1C W/ ESTIMATED GLUCOSE (10/20/2015 11:08 AM CDT) HGB-A1C 11.2(H) 4.4 - 6.4 % 10/20/2015 12:35 PM CDT [facility] Est Average Glucose 274.7 mg/dL 10/20/2015 12:35 PM CDT [facility] Blood specimen (specimen) Venipuncture / Unknown 10/20/2015 11:08 AM CDT 10/20/2015 11:17 AM CDT Narrative [facility] - 10/20/2015 12:35 PM CDT HEMOGLOBIN A1C: DIABETIC PATIENTS: WELL-CONTROLLED: ?? 6.2 - 7.0 INTERMEDIATE WELL-CONTROLLED: ??7.0 - 9.0 POORLY-CONTROLLED: ??>9.0 us Dayan Khan APRN, WOOD DRILLING MACHINE OPERATOR CHEMISTRY ORDERABLES Fin al Result [facility] [place] [address] from Last 3 Months or Most Recently Relevant to Health Maintenance Insurance MEDICARE , [facility] [place] [id number] Care Teams Materials Associate Relationship Specialty Start Date End Date Kaylynn Alvarez APRN, WOOD DRILLING MACHINE OPERATOR [address] [place] [address] PCP - General Family Medicine 04/06/18 Bhavik Joyner DPM Consulting Physician Podiatry 11/28/16
--- OUTSIDE RECORDS SUMMARY | 2024-02-12 08:59 | XMS_ITS | Clinical Summary ---
Author Organization [facility] Address [address] [place] [address] Care Team Providers Care Assurance Senior Manager Name Role Phone Wilmer Carnes MD Primary Care Provider [phone] Allergies Active Allergy Reactions Criticality Noted Date [...] Legal Sex Female 1:16 PM DIRECTOR OF EVENT MARKETING Gender Identity Not on file Sexual [...] Comments Blood Pressure 119/74 01/24/2022 9:39 AM DIRECTOR OF EVENT MARKETING Pulse 77 01/24/2022 9:39 AM DIRECTOR OF EVENT MARKETING Temperature 37 ??C (98.6 ??F) 01/24/2022 9:39 AM DIRECTOR OF EVENT MARKETING Respiratory Rate 18 08/10/2018 12:40 PM CDT Oxygen Saturation 99% 08/10/2018 12:40 PM CDT Inhaled Oxygen Concentration - - Weight 91.8 kg (202 lb 4.8 oz) 01/24/2022 9:39 A M DIRECTOR OF EVENT MARKETING Height 157.5 cm (5' 2 ) 07/09/2018 [...] Diagnosis Comments EGFR Routine 01/24/2022 11:21 AM DIRECTOR OF EVENT MARKETING Long COVID HEMOGLOBIN A1C Routine 10/15/2018 1:00 [...] Maintenance Results * eGFR (01/24/2022 11:21 AM DIRECTOR OF EVENT MARKETING) eGFR >90 90 - 130 mL/min/1. 73 [...] reviewed 2020. Blood 01/24/2022 11:2 1 AM DIRECTOR OF EVENT MARKETING 01/24/2022 4:16 PM DIRECTOR OF EVENT MARKETING Aliyah Varghese COMMUNITY THEATER ACTOR LAB BLOOD ORDERABLES Final Result MARIA M BURGOS [facility] Department [place] [address] * (ABNORMAL) Hemoglobin A1c (10/15/2018 1:00 PM [...] children were not included. ?? (Diabetes Care 31:1534-2371, 2007). ??The eAG is not equivalent to a fasting glucose. Blood specimen (specimen) 10/15/2018 1:00 PM CDT 10/15/2018 2:50 PM CDT Enma Jones MD LAB BLOOD ORDERABLES Candy mcwilliams Result MARIA M [facility] 1 [facility] Department [place] [address] * Screening Mammogram Bilateral W Ashwin (06/19/2018 [...] has been evaluated with computer assisted technology. Group Fitness Assistant Department Head [facility] Comment:[place]OD[place], CT(ASCP) Review spinning room worker CANCELED [facility] Comment:Result [...] was performed using the APTIMA HPV Assay ([employer] This assay detects E6/E7 viral messenger RNA (mRNA) from 14 high-risk HPV types (16,18,31,33,35,39,45,51,52,56,58,59,66,68). The analytical performance characteristics of this assay have been determined by [employer]. The modifications have not been cleared or approved by the FDA. This assay has been validated pursuant to the CLIA regulations and is used for clinical purposes. Endocervical/vag inal 06/05/2018 3:25 PM CDT 06/08/2018 1:03 PM CDT Narrative Resulting Agency Comment Performing Organization Information: ?Site ID: [place] ?Name: [facility] ?Address: [address] [place] [address] ?Director: Av Schreiber D.O., MPH ?Site ID: ?Name: [facility] ?Address: [address] [place] [address] ?Director: Ben Raphael Veronica Chacon COMMUNITY THEATER ACTOR LAB PATHOLOGY ORDERABLES Final R esult [facility] - [place], [place] [facility] - [place], [place] * Hepatitis panel, acute (07/06/2014 10:46 AM CDT) HepBsAg NONREACT NONREACTIVE Comment: Siemens CentaurXP using MARGARITA (chemiluminescent immunoassay) technology. NONREACTIVE: IgM antibodies to Hepatitis B Surface antigen not detected. REACTIVE: IgM antibodies to Hepatitis B Surface antigen detected. Reactive results will be confirmed by neutralization testing. HBsAb (immune status) NONREACT NONREACTIVE 07/06/2014 11:43 AM MoniT [facility] HISTORICAL RESULTS Comment: Siemens CentaurXP using MARGARITA (chemiluminescent immunoassay) technology. NONREACTIVE: IgM antibodies to Hepatitis B Surface antibody not detected. REACTIVE: IgM antibodies to Hepatitis B Surface antibody detected. Hep B core IgM NONREACT NONREACTIVE 5 12:22 PM CDT [facility] HISTORICAL RESULTS Comment: Siemens CentaurXP using MARGARITA (chemiluminescent immunoassay) technology. NONREACTIVE: IgM antibodies to Hepatitis B Core antigen not detected. EQUIVOCAL: IgM antibodies to Hepatitis B Core antigen may or may not be present. Obtain a ??new specimen and retest. REACTIVE: IgM antibodies to Hepatitis B Core antigen detected. Hep A IgM NONREACT NONREACTIVE 07/06/2014 12:24 PM CDT [facility] HISTORICAL RESULTS Comment: Siemens CentaurXP using MARGARITA (chemiluminescent immunoassay) technology. NONREACTIVE: IgM antibodies to Hepatitis A not detected. This does not exclude possibility of exposure to Hepatitis A or early acute infection. EQUIVOCAL:IgM antibodies to Hepatitis A may or may not be present. Suggest recollection and retest. REACTIVE: Antibodies to Hepatitis A detected. Hep C Ab NONREACT NONREACTIVE 07/06/2014 12:22 PM CDT [facility] HISTORICAL RESULTS Comment: Siemens CentaurXP using MARGARITA [...] MICROBIOLOGY - GENE RAL ORDERABLES Final Result [facility] HISTORICAL RESULTS from Last 3 Months or Most Recently Relevant to Health Maintenance Insurance MEDICARE [facility] CARE OTHER HUMANA CHOICE MEDICARE PPO HU[employer] CHOICE MEDICARE PPO [facility] [place] [address] Care Teams Assurance Senior Manager Relationship Specialty Start Date End Date Wilmer Carnes MD PCP - General Family Medicine 04/19/22 Alana Gaytan, [facility] [address] [place] [address] Manager Desktop Infectious Diseases 01/24/22
--- OUTSIDE RECORDS SUMMARY | 2024-02-12 08:59 | XMS_ITS | Encounter Summary ---
Author Organization [facility] Address [address] [place] [address] Phone Care Team Providers Care Digital Account Executive Name Role Phone Enma Jones MD Primary Care Provider [phone] Wilmer Carnes MD Primary Care Provider [phone] Encounter Details Date Type Department Care Team (Late st Contact Info) Description 03/28/[address] 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
--- OUTSIDE RECORDS SUMMARY | 2024-02-12 08:59 | XMS_ITS | Encounter Summary ---
Author Organization [facility] Address [address] [place] [address] Phone Care Team Providers Care Product Handler Name Role Phone Wilmer Carnes MD Primary Care Provider [phone] Reason for Visit * Reason Comments Eustachian Tube Dysfunction Encounter Details Date Type Department Care Team (Late st Contact Info) Description 04/19/2022 1:00 PM DIGITAL ASSET COORDINATOR Office Visit [facility] ENT [address] [facility] 2nd Floor, [address] [place] [address] Melanie Leos ARCHIVAL RECORDS CLERK [address] [place], [place] [id number] Dysfunction of both eustachian tubes (Primary Dx); [...] file Legal Sex Female 1:16 PM DIGITAL ASSET COORDINATOR Gender Identity Not on file Sexual [...] this encounter Progress Notes * Melanie Leos, ARCHIVAL RECORDS CLERK - 04/19/2022 1:00 PM CST Reason for [...] with chest and bronchial congestion. Is seeing hotel operation manager in a couple weeks. Continues withdrainage.in throat. [...] with Dr Boyd regarding deviated nasl septum TAL ASSET COORDINATOR TAL ASSET COORDINATOR documented in this encounter Miscellaneous Notes * Addendum Note - Melanie Leos NP - 04/19/2022 1:00 PM CSTAddended by: MELANIE LEOS on: 04/19/2022 04:03 PM Modules accepted: Orders TAL ASSET COORDINATOR documented in this encounter Plan of Treatment Not on file documented as of this encounter Visit Diagnoses Diagnosis Dysfunction of both eustachian tubes- Primary Dysfunction of left eustachian tube DNS (deviated nasal septum) Deviated nasal septum Hyperacusis of both ears Allergic rhinitis, unspecified seasonality, unspecified trigger Epistaxis documented in this encounter Care Teams Product Handler Relationship Specialty Start Date End Date Wilmer Carnes MD PCP - General Family Medicine 04/19/22 Alana Gaytan [facility] [address] [place] [address] Machine Plate Stacker Infectious Diseases 01/24/22 documented as of this encounter
--- OUTSIDE RECORDS SUMMARY | 2024-02-12 08:59 | XMS_ITS | Encounter Summary ---
Author Organization [facility] Address [address] [place] [address] Phone Care Team Providers Care Soil Tester Name Role Phone Enma Jones MD Primary Care Provider [phone] Reason for Visit * Reason Comments Otitis Media Seen at urgent care 2 weeks ago for OM, still has ear pain both sides * Consultation (Routine) - Denied Specialty Diagnoses / Procedures Referred By Contteri t Referred To Contact Otolaryngology Diagnoses Hearing loss, unspecified hearing loss type, unspecified laterality Enma Jones MD [address] [address] [place] [address] Phone: tel: fax: [facility] (All Locations) Referral ID Status Reason Start Date Expiration Date V isits Requested Visits Authorized [id number] Denied Specialty Services Required 02/27/2022 03/29/2023 99 0 Encounter Details Date Type Department Care Team (Late st Contact Info) Description 03/28/2022 11:40 AM CLAY DRY PRESS OPERATOR Office Visit [facility] ENT [address] [facility] Medical Office Building [address] [place] [address] Melanie Mendez NP [address] [place] [address] Dysfunction of both eustachian tubes [...] on file Legal Sex Female 1:16 PM CLAY DRY PRESS OPERATOR Gender Identity Not on file [...] Doxycycline Flonase 2 sprays each nostril bid DRY PRESS OPERATOR documented in this encounter Plan [...] documented as of this encounter Care Teams Soil Tester Relationship Specialty Start Date End Date Enma Jones MD PCP - General 10/15/18 04/18/22 Alana Gaytan, [address] [address] Route Sales Associate Infectious Diseases 01/24/22 documented as of this encounter
--- OUTSIDE RECORDS SUMMARY | 2024-02-12 08:59 | XMS_ITS | Referral Summary ---
Author Organization [facility] Address [address] [place] [address] Care Team Providers Care Research Professor Name Role Phone Wilmer Carnes MD Primary Care Provider [phone] Allergies Active Allergy Reactions Criticality Noted Date [...] on file Legal Sex Female 1:16 PM BACK SIZER Gender Identity Not on file Sexual Orientation Not on file Last Filed Vital Signs Vital Sign Reading Time Taken Comments Blood Pressure 119/74 01/24/2022 9:39 AM BACK SIZER Pulse 77 01/24/2022 9:39 AM BACK SIZER Temperature 37 ??C (98.6 ??F) 01/24/2022 9:39 AM BACK SIZER Respiratory Rate 18 08/10/2018 12:40 PM CDT Oxygen Saturation 99% 08/10/2018 12:40 PM CDT Inhaled Oxygen Concentration - - Weight 91.8 kg (202 lb 4.8 oz) 01/24/2022 9:39 A M BACK SIZER Height 157.5 cm (5' 2 ) 07/09/2018 10:05 AM CDT Body Mass Index 37 07/09/2018 10:05 AM CDT Plan of Treatment Not on file Procedures Procedure Name Priority Date/Time Associated Diagnosis Comments EGFR Routine 01/24/2022 11:21 AM BACK SIZER Long COVID HEMOGLOBIN A1C Routine 10/15/2018 1:00 [...] Maintenance Results * eGFR (01/24/2022 11:21 AM BACK SIZER) eGFR >90 90 - 130 mL/min/1. 73 [...] reviewed 2020. Blood 01/24/2022 11:2 1 AM BACK SIZER 01/24/2022 4:16 PM BACK SIZER Aliyah Varghese NP LAB BLOOD ORDERABLES Final Result MARIA M BURGOS [facility] Department [place] [address] * (ABNORMAL) Hemoglobin A1c (10/15/2018 1:00 PM CDT) Hgb A1C 9.6(H) 4.0 - 5.6 % [facility] Estimated Average Glucose 229 mg/dL [facility] ([place]) Comment: The ADA recommends reporting an estimated Average Glucose (eAG) with all Hemoglobin A1c results using the equation derived from a study of 507 normal and diabetic adults. ??Minority populations were underrepresented and children were not included. ?? (Diabetes Care 31:9026-4909, 2007). ??The eAG is not equivalent to a fasting glucose. Blood specimen (specimen) 10/15/2018 1:00 PM CDT 10/15/2018 2:50 PM CDT Enma Jones MD LAB BLOOD ORDERABLES Candy l Result Performing Organization Address City/[facility]/ZIP Co de Phone Number MARIA M [facility] 1 [facility] Department [place] [address] * Screening Mammogram Bilateral W Ashwin (06/19/2018 [...] patient's of yearly mammograms. us Veronica Chacon MOLECULAR PATHOLOGIST IMG MAMMO PROCEDURES Final Resul t * [...] has been evaluated with computer assisted technology. Bandmill Operator [facility] Comment:DODGE, CT(ASCP) Review needle loom operator CANCELED [facility] Comment:Result canceled [...] was performed using the APTIMA HPV Assay ([employer] This assay detects E6/E7 viral messenger RNA (mRNA) from 14 high-risk HPV types (16,18,31,33,35,39,45,51,52,56,58,59,66,68). The analytical performance characteristics of this assay have been determined by [employer]. The modifications have not been cleared or approved by the FDA. This assay has been validated pursuant to the CLIA regulations and is used for clinical purposes. Endocervical/vag inal 06/05/2018 3:25 PM CDT 06/08/2018 1:03 PM CDT Narrative Resulting Agency Comment Performing Organization Information: ?Site ID: [place] ?Name: [facility] ?Address: [address] [place] [address] ?Director: Av Schreiber D.O., SAI ?Site ID: ?Name: [facility] ?Address: [address] [place] [address] ?Director: Ben Raphael Veronica Chacon MOLECULAR PATHOLOGIST LAB PATHOLOGY ORDERABLES Final R esult [facility] - [place], [place] [facility] [place] Lisa KERON * Hepatitis panel, acute (07/06/2014 10:46 AM CDT) HepBsAg NONREACT NONREACTIVE 07/06/2014 11:54 AM [facility] HISTORICAL RESULTS Comment: Siemens CentaurXP using MARGARITA (chemiluminescent immunoassay) technology. NONREACTIVE: IgM antibodies to Hepatitis B Surface antigen not detected. REACTIVE: IgM antibodies to Hepatitis B Surface antigen detected. Reactive results will be confirmed by neutralization testing. HBsAb (immune status) NONREACT NONREACTIVE 07/06/2014 11:43 AM AgentBridgeT [facility] [employer] HISTORICAL RESULTS Comment: Siemens CentaurXP using MARGARITA (chemiluminescent immunoassay) technology. NONREACTIVE: IgM antibodies to Hepatitis B Surface antibody not detected. REACTIVE: IgM antibodies to Hepatitis B Surface antibody detected. Hep B core IgM NONREACT NONREACTIVE 5 12:22 PM CDT [facility] HISTORICAL RESULTS Comment: Siemens CentaurXP using MARGARITA [...] CDT Lorena SCOTT LAB MICROBIOLOGY - GENE [facility] ORDERABLES Final Result [facility] HISTORICAL RESULTS from Last 3 Months or Most Recently Relevant to Health Maintenance Insurance MEDICARE [facility] C[facility] OTHER HUMANA CHOICE [facility]ICARE [facility]IC[facility] PPO [facility] MEDICARE HMO Care Teams Research Professor Relationship Specialty Start Date End Date Wilmer Carnes MD PCP - General Family Medicine 04/19/22 Alana Gaytan [facility] [address] [place] [address] Threshing Operator Infectious Diseases 01/24/22
--- OUTSIDE RECORDS SUMMARY | 2024-02-12 08:59 | XMS_ITS | Encounter Summary ---
Author Organization [facility] Address [address] [place] [address] Phone Care Team Providers Care Hotel Or Motel Room Service Supervisor Name Role Phone Wilmer Carnes MD Primary Care Provider [phone] Encounter Details Date Type Department Care Team (Late st Contact Info) Description 05/02/2022 Documentation [facility]) - [facility] ENT [address] [facility] 2nd Floor, [address] [place] [address] Melanie Mendez NP [address] [place], [place] [id number] Social History Tobacco Use Types Packs/Day Years [...] on file Legal Sex Female 1:16 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 Patient said she understood what I was telling her. ESTATE BROKER ASSOCIATE documented in this encounter Plan of Treatment Not on file documented as of this encounter Visit Diagnoses Not on filedocumented in this encounter Care Teams Hotel Or Motel Room Service Supervisor Relationship Specialty Start Date End Date Wilmer Carnes MD PCP - General Family Medicine 04/19/22 Alana Gaytan, [address] [address] Air Crew Member Infectious Diseases 01/24/22 documented as of this encounter
--- OUTSIDE RECORDS SUMMARY | 2024-02-12 08:59 | XMS_ITS | Encounter Summary ---
Author Organization [facility] Address [address] [place] [address] Phone Care Team Providers Care Floor Coverings Installer Name Role Phone Enma Jones MD Primary Care Provider [phone] Encounter Details Date Type Department Care Team (Late st Contact Info) Description 03/27/2022 Telephone [facility] ([facility]) - [facility] ENT [address] [facility] 2nd Floor, [address] [place] [address] Melanie Mendez NP [address] [place], [place] [id number] Social History Tobacco Use Types Packs/Day Years [...] on file Legal Sex Female 1:16 PM CRYSTAL 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 Her sinuses are clogged and she has ear drainage. Per Isamar, she should come in for an appointment. Patient schedule for [facility] tomorr TAL GRINDER documented in this encounter Plan of Treatment Not on file documented as of this encounter Visit Diagnoses Not on filedocumented in this encounter Care Teams Floor Coverings Installer Relationship Specialty Start Date End Date Enma Jones MD PCP - General 10/15/18 04/18/22 Alana Gaytan, [address] [address] Functional Director Infectious Diseases 01/24/22 documented as of this encounter
--- OUTSIDE RECORDS SUMMARY | 2024-02-12 08:59 | XMS_ITS | Encounter Summary ---
Author Organization [facility] Address [address] [place] [address] Phone Care Team Providers Care Roll Threader Operator Name Role Phone Wilmer Carnes MD Primary Care Provider [phone] Encounter Details Date Type Department Care Team (Late st Contact Info) Description 04/22/2022 Documentation [facility]) - [facility] ENT [address] [facility] 2nd Floor, [address] [place] [address] Melanie Mendez NP [address] [place], [place] [id number] Social History Tobacco Use Types Packs/Day Years [...] on file Legal Sex Female 1:16 PM INSTRUMENT PERSON Gender Identity Not on file Sexual Orientation Not on file documented as of this encounter Progress Notes * Clarice Geronimo - 04/22/2022 4:45 PM CST Left message for patient at [phone] letting her know we are NOT contracted with [facility] and referred the patient back to her plan's network for a surgeon that can address the deviated septum issue. RUMENT PERSON documented in this encounter Plan of Treatment Not on file documented as of this encounter Visit Diagnoses Not on filedocumented in this encounter Care Teams Roll Threader Operator Relationship Specialty Start Date End Date Wilmer Carnes MD PCP - General Family Medicine 04/19/22 Alana Gaytan, [address] [address] Gamb Cutter Infectious Diseases 01/24/22 documented as of this encounter
--- OUTSIDE RECORDS SUMMARY | 2024-02-12 08:59 | XMS_ITS | Encounter Summary ---
Author Organization [facility] Address [address] [place] [address] Phone Care Team Providers Care Head Loader Name Role Phone Enma Jones MD Primary Care Provider [phone] Encounter Details Date Type Department Care Team (Late st Contact Info) Description 03/21/2022 Documentation [facility] ENT [address] [facility] Medical Office Building [address] [place] [address] Melanie Mendez NP [address] [place] [address] Social History Tobacco Use Types [...] on file Legal Sex Female 1:16 PM SR. MANAGER MARKETING Gender Identity Not on file Sexual Orientation Not on file documented as of this encounter Progress Notes * Melanie Mendez NP - 03/21/2022 12:[address] temporal bone result normal mention of high riding jugular bulb, reviewed with Dr. Mendieta , normal. Left message for patient. . MANAGER MARKETING documented in this encounter Plan of Treatment Not on file documented as of this encounter Visit Diagnoses Not on filedocumented in this encounter Care Teams Head Loader Relationship Specialty Start Date End Date Enma Jones MD PCP - General 10/15/18 04/18/22 Alana Gaytan, [facility] [address] [place] [address] Zyglo Inspector Infectious Diseases 01/24/22 documented as of this encounter
--- OUTSIDE RECORDS SUMMARY | 2024-02-12 08:59 | XMS_ITS | Continuity of Care Document ---
Author Organization [employer] [place] Address [address] [place] [address] [address] [place] [address] Phone Care Team Providers Care Compensation Coordinator Name Role Phone Elyssa Riley FRANCOa Unavailable [...] Diagnoses Date Provider Providers Copied on Encounter [facility], [id number], tel:[phone] [place] No Information 8 Elyssa Hina. [address] [facility], [facility] [address], [address], [place]. tel:[phone] [facility] 2121 [facility] [address], [place], [address], [place] tel:[phone] [place] No Information 7 Elyssa Hina. [address] [facility], [facility] [address], [place], [address], [place]. tel:[phone] Referring Provider: Omer Frederick, [address] [place] [address] [address] [place], [address]. tel:[phone] [facility], [place], [place], [address], [place] tel:[phone] [place] No Information 7 Chiquita Cabrales. . Referring Provider: Omer Frederick, [address] [place] [address] [address] [facility] [place], [address]. tel:[phone] [facility] [address], [place], [place], [address], [place] tel:[phone] [place] No Information 7 Alpine Hina. [address] [facility], [address], [place], [place], [facility], [place]. tel:[phone] Referring Provider: Omer Frederick, [address] [place] [address] [address] [facility] [place], [address]. tel:[phone] [facility] [address] [place], [place] [address], [place], [place], [address], [place] tel:[phone] [place] No Information 7 Alpine Hina. [address] [facility], [address], [place], [place], [facility], [place]. tel:[phone] Referring Provider: Omer Frederick, [address] [place] [address] [address] [place], [address]. tel:[phone] [facility] [address] [place], [place] [address], [place], [address], [place] tel:[phone] [place] No Information 7 Elyssa Hina. [address] [facility], [address], [place], [place], [facility], [place]. tel:[phone] Referring Provider: Omer Frederick, [address] [place] [address] [address] [facility] [place], [address]. tel:[phone] [facility] [address], [place], [place], [address], tel:[phone] [place] No Information 0 7 Alpine Hina. [address] [facility], [address], [place], [address], [place]. tel:[phone] Referring Provider: Omer Frederick, [address] [place] [address] [address] [facility] [place], [address]. tel:[phone] [address], [place], [address], tel:[phone] [place] No Information Oct-2 6-201 7 Elyssa Hina. [address] [facility], [address], [place], [place], [facility], [place]. tel:[phone] Referring Provider: Omer Frederick, [address] [place] [address] [address] [place], [address]. tel:[phone] [address], [place], [address], tel:[phone] [place] No Information Oct-2 3-201 7 Elyssa Hina. [address] [facility], [address], [place], [facility], [place]. tel:[phone] Referring Provider: Omer Frederick, [address] [place] [address] [address] [place], [address]. tel:[phone] [address], [place], [address], tel:[phone] [place] No Information Oct-2 0-201 7 Alpine Hina. [address] [facility], [address], [place], [facility], [place]. tel:[phone] Referring Provider: Omer Frederick, [address] [place] [address] [address] [place], [address]. tel:[phone] [address], [place], [address], [place] tel:[phone] [place] No Information Oct-1 8-201 7 Elyssa Hina. [address] [facility], [address], [place], [place], [facility], . tel:[phone] Referring Provider: Omer Frederick, [address] [place] [address] [address] [place], [address]. tel:[phone] [facility] [address], [place], [place], [address], [place] tel:[phone] [place] No Information 2-201 7 Elyssa Hina. [address] [place] [address], [address], [place], [place], [facility], [place]. tel:[phone] Referring Provider: Omer Frederick, [address] [place] [address] [address] [place], [address]. tel:[phone], [place], [place], [address], [place] tel:[phone] [place] No Information 0 9-201 7 Elyssa Hina. [address] [place] [address], [address], [place], [place], [facility], [place]. tel:[phone] Referring Provider: Omer Frederick, [address] [place] [address] [address] [place], [address]. tel:[phone], [place], [place], [address], [place] tel:[phone] [place] No Information 2 8-201 7 Elyssa Hina. [address] [place] [address], [address], [place], [address], [place]. tel:[phone] Referring Provider: Omer Frederick, [address] [place] [address] [address] [place], [address]. tel:[phone], [place], [place], [address], [place] tel:[phone] [place] No Information Oct-2 1 7 Elyssa Hina. [address] [place] [address], [address], [place], [address], [place]. tel:[phone] Referring Provider: Omer Frederick, [address] [place] [address] [address] [place], [address]. tel:[phone], [place], [place], [address], [place] tel:[phone] [place] No Information 3201 7 Alpine Hina. [address] [facility], [facility] [address], [address], . tel:[phone] Referring Provider: Omer Frederick, [address] [place] [address] [address] [facility] [place], [address]. tel:[phone] [facility] [address], [place], [place], [address], [place] tel:[phone] [place] No Information 0 8-201 7 Elyssa Hina. [address] [facility], [address], [place], [facility], [place]. tel:[phone] Referring Provider: Omer Frederick, [address] [place] [address] [address] [place], [address]. tel:[phone] [facility] [address] [place], [place] [address], [place], [address], [place] tel:[phone] [place] No Information 6201 7 Elyssa Hina. [address] [facility], [address], [place], [address], [place]. tel:[phone] Referring Provider: Omer Frederick, [address] [place] [address] [address] [facility] [place], [address]. tel:[phone] [facility] [address] [facility] [address], [place], [address], [place] tel:[phone] [place] No Information 5201 7 Elyssa Hina. [address] [facility], [address], [place], [address], [place]. tel:[phone] Referring Provider: Omer Frederick, [address] [place] [address] [address] [facility] [place], [address]. tel:[phone] [facility], [address], [place], [address], tel:[phone] [place] No Information Sep-0 9-201 7 Alpine Hina. [address] [facility], [address], [place], [address], [place]. tel:[phone] Referring Provider: Omer Frederick, [address] [place] [address] [address], [place], [address]. tel:[phone] [facility], [address] [place], [place] [address], [place], [place], [address], [place] tel:[phone] [place] No Information 7 Alpine Hina. [address] [facility], [address], [place], [address], [place]. tel:[phone] Referring Provider: Omer Frederick, [address] [place] [address] [address] [facility] [place], [address]. tel:[phone] [facility] [address] [place], [place] [address]uite [facility], [place], [place], [address], [place] tel:[phone] [place] No Information Alpine Hina. [address] [facility], [address], [place], [address], [place]. tel:[phone] Referring Provider: Omer Frederick, [address] [facility] [address] [facility] [place], [address]. tel:[phone] [facility] [address] [place], [place] [address], [place], [place], [address], [place] tel:[phone] [place] No Information Elyssa Hina. [address] [place] [address], [address], [place], [address], [place]. tel:[phone] Referring Provider: Omer Frederick, [address] [facility] [address] [facility] [place], [address]. tel:[phone] [facility] [address] [facility], [place], [place], [address], [place] tel:[phone] [place] Ot symptoms and signs involving the musculoskelet al systemAdhesiv e capsulitis of right shoulderPost- traumatic stress disorder, unspecified José Manuel-2 5-201 7 Alpine Hina. [address] [place] [address], [address], [place], [address], [place]. tel:[phone] Referring Provider: Omer Frederick, [address] [place] [address] [address] [place], [address]. tel:[phone] [facility], [facility] [address], [place], [place], [address], [place] tel:[phone] [place] No Information Nov-2 3-201 6 Alpine Hina. [address] [place] [address], [address], [place], [address], [place]. tel:[phone] [place] [address] [address], [place], [place], [address], [place] tel:[phone] [place] No Information 1-201 6 Alpine Hina. [address] [place] [address], [address], [place], [address], [place]. tel:[phone] [facility] [address], [place], [place], [address], [place] tel:[phone] [place] No Information 8-201 6 Elyssa Hina. [address] [place] [address], [address], [place], [address], [place]. tel:[phone] [facility] [address], [place], [place], [address], [place] tel:[phone] [place] No Information 1 6-201 6 Elyssa Hina. [address] [place] [address], [address], [place], [address], [place]. tel:[phone] [place] [address] [address], [place], [place], [address], [place] tel:[phone] [place] No Information Nov-0 9-201 6 Elyssa Hina. [address] [place] [address], [address], [place], [address], [place]. tel:[phone] [place] [address] [facility] [address], [place], [place], [address], [place] tel:[phone] [place] Pain in right shoulderStiff ness of right shoulder, not elsewhere classifiedMus ese weakness (generalized) Impingement syndrome of right shoulder 6 Elyssa Santamaria. [address] [facility], [address], [place], [address], [place]. tel:[phone] Family History Family Member Type Diagnosis Age At Onset No Information Payers Payer name Insurance type Covered libertarian ID Authorjolantaa lenore(s) [place] [id number] Social History Type Description Quantity Date Captured [...]
--- OUTSIDE RECORDS SUMMARY | 2024-02-12 09:00 | XMS_ITS | Encounter Summary ---
Author Organization [facility] Address [address] [place] [address] Care Team Providers Care Homemaker Companion Name Role Phone No, Physician Primary Care Provider [phone] Reason for Visit * Reason Onset Date Comments EMB 06/26/2018 Encounter Details Date Type Department Care Team (Late st Contact Info) Description 06/26/2018 Telephone [facility] [address] [facility] [address] [place] [address] Isabela Chacon RN EMB Social History Tobacco Use Types Packs/Day Years Used Date Smoking Tobacco: Every Day Cigarettes Smokeless Tobacco: Never Alcohol Use Standard Drinks/Week Comments No 0 (1 standard drink = 0.6 oz pur e alcohol) Comments No Sex and Gender Information Value Date Recorded Sex Assigned at Not on file 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
--- OUTSIDE RECORDS SUMMARY | 2024-02-12 09:00 | XMS_ITS | Encounter Summary ---
Author Organization [facility] Address [address] [place] [address] Care Team Providers Care Government Program Manager Name Role Phone Enma Jones MD Primary Care Provider [phone] Encounter Details Date Type Department Care Team (Latest Contact Info) Description 01/24/2022 11:12 AM PRODUCTION COST ESTIMATOR - 01/24/2022 11:59 PM PRODUCTION COST ESTIMATOR Hospital Encounter [place] [id number] Discharge Disposition: Discharge to home or self [...] on file Legal Sex Female 1:16 PM PRODUCTION COST ESTIMATOR Gender Identity Not on file Sexual Orientation [...] on filedocumented in this encounter Care Teams Government Program Manager Relationship Specialty Start Date End Date Enma Jones MD PCP - General 10/15/18 04/18/22 Alana Gaytan [facility] [address] [place] [address] Site Safety Manager Infectious Diseases 01/24/22 documented as of this encounter
--- OUTSIDE RECORDS SUMMARY | 2024-02-12 09:00 | XMS_ITS | Encounter Summary ---
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 Estimated glomerular filtration [...] [email or web address] Result [facility] ([place]) 1 [facility] Department [place] [address] * Differential, auto (10/15/2018 1:00 PM CDT) Neutrophil abs 4.4 1.7 - 6.5 K/cumm [facility] ([place]) Imm gran abs 0.0 0.0 - 0.1 K/cumm [facility] ([place]) Lymphocyte abs 1.9 0.8 - 3.3 K/cumm [facility] ([place]) Monocyte abs 0.4 0.2 - 0.8 K/cumm [facility] ([place]) Eosinophil abs 0.4 0.0 - 0.5 K/cumm [facility] ([place]) Basophil abs 0.0 0.0 - 0.1 K/cumm [facility] ([place]) Neutrophil pct 61.7 % [facility] ([place]) Comment: Interpretive Data Percent cell count reference ranges are not reported, since discordance with absolute values may lead to misinterpretation of CBC data. Current Interpretive Data was last revised on 2017. Imm gran pct 0.1 % [facility] ([place]) Comment: Interpretive Data Percent cell count reference ranges are not reported, since discordance with absolute values may lead to misinterpretation of CBC data. Current Interpretive Data was last revised on 2017. Lymphocyte pct 26.6 % [facility] ([place]) Comment: Interpretive Data Percent cell count reference ranges are not reported, since discordance with absolute values may lead to misinterpretation of CBC data. Current Interpretive Data was last revised on 2017. Monocyte pct 5.0 % [facility] ([place]) Comment: Interpretive Data Percent cell count reference ranges are not reported, since discordance with absolute values may lead to misinterpretation of CBC data. Current Interpretive Data was last revised on 2017. Eosinophil pct 6.0 % [facility] ([place]) Comment: Interpretive Data Percent cell count reference ranges are not reported, since discordance with absolute values may lead to misinterpretation of CBC data. Current Interpretive Data was last revised on 2017. Basophil pct 0.6 % [facility] ([place]) Comment: Interpretive Data Percent cell count reference ranges are not reported, since discordance with absolute values may lead to misinterpretation of CBC data. Current Interpretive Data was last revised on 2017. Blood specimen (specimen) 10/15/2018 1:00 PM CDT 10/15/2018 2:50 PM CDT Enma Jones MD LAB BLOOD ORDERABLES Candy l Result Performing Organization Address [facility] de Phone Number [facility] ([place]) 1 [facility] [employer] [place] [address] * (ABNORMAL) Hemoglobin A1c (10/15/2018 1:00 PM CDT) Hgb A1C 9.6(H) 4.0 - 5.6 % [facility] ([place]) Estimated Average Glucose 229 mg/dL [facility] ([place]) Comment: The ADA recommends reporting an estimated Average Glucose (eAG) with all Hemoglobin A1c results using the equation derived from a study of 507 normal and diabetic adults. ??Minority populations were underrepresented and children were not included. ?? (Diabetes Care 31:4462-2822, 2008). ??The eAG is not equivalent to a fasting glucose. Blood specimen (specimen) 10/15/2018 1:00 PM CDT 10/15/2018 2:50 PM CDT Enma Jones MD LAB BLOOD ORDERABLES Candy l Result Performing Organization Address [facility] Co de Phone Number [facility] ([place]) 1 [facility] [employer] [place] [address] * (ABNORMAL) CBC with auto differential (10/15/2018 1:00 PM CDT) WBC 7.2 3.8 - 9.9 K/cumm [facility] ([place]) Hgb 14.1 11.9 - 15.5 g/dL [facility] ([place]) Hct 43.3 35.6 - 45.5 % [facility] ([place]) Plt 304 150 - 400 K/cumm [facility] ([place]) MPV 10.4 9.1 - 12.3 fL [facility] RBC 5.25(H) 3.90 - 5.20 M/cumm [facility] ([place]) MCV 82.5 81.3 - 96.4 fL [facility] ([place]) MCH 26.9(L) 27.1 - 33.3 pg [facility] ([place]) MCHC 32.6 32.3 - 35.7 g/dL [facility] ([place]) RDW CV 14.2 11.1 - 14.9 % [facility] ([place]) RDW SD 42.5 35.7 - 48.1 fL [facility] NRBC abs 0.00 0.00 - 0.01 K/cumm [facility] ([place]) Blood specimen (specimen) 10/15/2018 1:00 PM CDT 10/15/2018 2:50 PM CDT Enma Jones MD LAB BLOOD ORDERABLES Candy [email or web address] Result [facility] ([place]) 1 [facility] Department [place] [address] * (ABNORMAL) Basic metabolic panel (10/15/2018 1:00 PM CDT) Sodium 135 135 - 145 mmol/L [facility] ([place] Potassium, pl 3.8 3.3 - 4.9 mmol/L [facility] Chloride 101 97 - 110 mmol/L [facility]) CO2 22 22 - 32 mmol/L [facility] ([place] Anion gap 12 2 - 15 mmol/L [facility]) BUN 10 8 - 25 mg/dL [facility] ([place] Creatinine 0.43(L) [...] ORDERABLES Candy l Result Performing Organization Address City/[facility]/ZIP Co de Phone Number [facility] ([place]) 1 [facility] [place] [address] * (ABNORMAL) Hepatic function panel (10/15/2018 1:00 [...] ORDERABLES Candy l Result Performing Organization Address City/[facility]/ZIP Co de Phone Number [facility] ([place]) 1 [facility] Department of [employer] [place] [address] documented in this encounter Visit Diagnoses Not on filedocumented in this encounter Care Teams Analytical Data Miner Relationship Specialty Start Date End Date Enma Jones MD PCP - General 10/15/18 04/18/22 documented as of this encounter
--- OUTSIDE RECORDS SUMMARY | 2024-02-12 09:00 | XMS_ITS | Encounter Summary ---
Author Organization [facility] Address [address] [place] [address] Care Team Providers Care Emissions Inspector Name Role Phone No, Physician Primary Care Provider [phone] Reason for Referral * OBGYN (Routine) - Closed Specialty Diagnoses / Procedures Referred By Contteri t Referred To Contact Diagnoses Menorrhagia with irregular cycle Procedures Endometrial Biopsy Only Veronica Chacon NP Phone: tel: fax: [facility] Referral ID Status Reason Start Date Expiration Date Visits Re quested Visits Authorized [id number] Closed 07/12/2018 01/21/2020 1 1 Reason for Visit * Reason Comments Procedure EMB Encounter Details Date Type Department Care Team (Late st Contact Info) Description 07/09/2018 10:00 AM CDT Procedure visit [facility] [address] [facility] [address] [place] [address] Veronica Chacon NP [address] [place] [address] [address] [address] Menorrhagia with irregular cycle (Primary Dx) Social History Tobacco Use Types Packs/Day Years Used Date Smoking Tobacco: Every Day Cigarettes Smokeless Tobacco: Never Alcohol Use Standard Drinks/Week Comments No 0 (1 standard drink = 0.6 oz pur e alcohol) Comments No Sex and Gender Information Value Date Recorded Sex Assigned at Not on file 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 female here [...] Procedure Name Priority Date/Time Associated Diagnosis Comments GA ENDOMETRIAL BX W/WO ENDOCERVIX BX W/O DILAT SPX Routine 07/09/2018 10:00 AM CDT Menorrhagia with irregular cycle documented in this encounter Results * GA ENDOMETRIAL BX W/WO ENDOCERVIX BX W/O DILAT [...] documented as of this encounter Care Teams Emissions Inspector Relationship Specialty Start Date End Date No, Physician PCP - General 06/08/18 10/14/18 documented as of this encounter
--- OUTSIDE RECORDS SUMMARY | 2024-02-12 09:00 | XMS_ITS | Encounter Summary ---
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 * Inhalation, Chemical (Mauritanian) documented in this encounter Medications at Time [...] Date Noted ??? Type 2 diabetes mellitus ([facility]) 10/04/2013 Class: Temporary ??? Posttraumatic stress disorder [...] with Dr. Perez. He recommends contacting [facility] supervisor tubing regarding the hazmat exposure. Dicussed pt with [...] Date/Time Associated Diagnosis Comments URINE MISC TO [place] Routine 08/10/2018 1: 01 PM CDT LEAD, BLOOD Routine 08/10/2018 12:49 PM CDT BLOOD MISC TO [place] Routine 08/10/2018 12 :47 PM CDT XR CHEST PA LATERAL 2 VIEWS ED 08/10/2018 11:15 AM CDT documented in this encounter Results * URINE MISC TO [place] (08/10/2018 1:01 PM CDT) Pathologist [facility] Test name, chem HMCRU Heavy Metal/Creat Ratio, w/Reflex, U [facility] M [facility] ([place]) Misc See Comment MARIA M DIE[facility] ([place]) Comment: Test ?Result ??Flag ??Unit ?RefValue Heavy Metal/Creat Ratio, w/Reflex,U ??Arsenic/Creatinine Ratio, U ?? 7 ? mcg/g Cr ??<24 ?Arsenic Concentration ? 15 ?mcg/L ?w/Reflex ?Arsenic concentration <35 mcg/L, arsenic fractionation not ?reflexed. If clinically indicated, Arsenic Fractionation, ?Random Urine (test code 44866) can be ordered within ?twenty-eight days of collection of this specimen; however, ?samples are retained internally for only 14 days post ?analysis. ? ADDITIONAL INFORMATION ?This test was developed and its performance characteristics ?determined by [facility] in a manner consistent with CLIA ?requirements. This test has not been cleared or approved by ?the U.S. Food and Drug Administration. ??Cadmium/Creatinine Ratio, U ?? 0.3 ? mcg/g Cr ??<0.6 ? ADDITIONAL INFORMATION ?This test was developed and its performance characteristics ?determined by [facility] in a manner consistent with CLIA ?requirements. This test has not been cleared or approved by ?the U.S. Food and Drug Administration. ??Mercury/Creatinine Ratio, U ?? <2 ?mcg/g Cr ??<2 ? ADDITIONAL INFORMATION ?This test was developed and its performance characteristics ?determined by [facility] in a manner consistent with CLIA ?requirements. This test has not been cleared or approved by ?the U.S. Food and Drug Administration. ??Lead/Creatinine Ratio, U ?<1 ?mcg/g Cr ??<2 ? ADDITIONAL INFORMATION ?This test was developed and its performance characteristics ?determined by [facility] in a manner consistent with CLIA ?requirements. This test has not been cleared or approved by ?the U.S. Food and Drug Administration. ??Creatinine Conc ? 219 ? mg/dL ?Test Performed by: ?[facility] ?[address] [place] [address] ?Test Performed by: ?[facility] ?[address] [place] [address] Urine 08/10/2018 1:01 PM CDT 08/10/2018 2:28 PM CDT us Dylan Hoyt MD LAB URINE ORDERABLES Fi nal Result [facility] M [facility] ([place]) [address] [facility] Department [place] [address] * Lead, blood (08/10/2018 12:49 PM CDT) Lead <1.0 0.0 - 4.9 mcg/dL [facility]IA M HAYES ([place]) Comment: ADDITIONAL INFORMATION Testing performed by Inductively Coupled Plasma-Mass Spectrometry (ICP-MS). This test was developed and its performance characteristics determined by [facility] in a manner consistent with CLIA requirements. This test has not been cleared or approved by the U.S. Food and Drug Administration. Interpretive Data Testing performed by: [facility], [place] [address]. Blood specimen (specimen) 08/10/2018 12:49 PM CDT 08/10/2018 12:54 PM CDT us China Carmen NP LAB BLOOD ORDERABLES Final Result [facility] M [facility] ([place]) [address] [facility] Department [place] [address] * BLOOD MISC TO [place] (08/10/2018 12:47 PM CDT) Test name, chem CDB Cadmium, B MARIA M HAYES ([place]) Misc See Comment [facility]IA M DIEGO ([place]) Comment: Test ? Result ?Flag ??Unit ?? RefValue Cadmium, B ? 0.6 ? ng/mL ??0.0- 4.9 ? ADDITIONAL INFORMATION ?This test was developed and its performance characteristics ?determined by [facility] in a manner consistent with CLIA ?requirements. This test has not been cleared or approved by ?the U.S. Food and Drug Administration. ?Test Performed by: ?[facility] ?[address] [place] [address] Blood specimen (specimen) 08/10/2018 12:47 PM CDT 08/10/2018 2:34 PM CDT us Dylan Hoyt MD LAB BLOOD ORDERABLES Fi nal Result [facility] ([place]) [address] [facility] Department [place] [address] * XR Chest Pa Lateral 2 Vw [...] by: Darren Medina M.D. us China Carmen ANSWERING SERVICE TELEPHONE OPERATOR IMG XR PROCEDURES Final Res ult documented in this encounter Visit Diagnoses Diagnosis Heavy metal exposure- Primary Contact with and (suspected) exposure to other hazardous metals documented in this encounter Care Teams Supervising Architect Relationship Specialty Start Date End Date No, Physician PCP - General 06/08/18 10/14/18 documented as of this encounter
--- OUTSIDE RECORDS SUMMARY | 2024-02-12 09:00 | XMS_ITS | Encounter Summary ---
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
--- OUTSIDE RECORDS SUMMARY | 2024-02-12 09:00 | XMS_ITS | Encounter Summary ---
Author Organization [facility] Medical [facility] Address [address] [place] [address] Care Team Providers Care Real Estate Leasing Agent Name Role Phone No, Physician Primary Care Provider [phone] Encounter Details Date Type Department Care Team (Late st Contact Info) Description 07/09/2018 Orders Only [facility] [address] [facility] [address] [facility] [address] [place] [phone] Veronica Chacon, PETROLEUM SUPPLY SPECIALIST [address] [facility] [address] [address] Social History Tobacco Use Types Packs/Day Years Used Date Smoking Tobacco: Every Day Cigarettes Smokeless Tobacco: Never Alcohol Use Standard Drinks/Week Comments No 0 (1 standard drink = 0.6 oz pur e alcohol) Comments No Sex and Gender Information Value Date Recorded Sex Assigned at Not on file 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 ??Gross exam(s) [facility] at[facility] ??[id number] [place] [phone] ??Physical Biochemist: RAVI RAPHAEL MD A Micro description CANCELED [...] Comment Performing Organization Information: ?Site ID: ?Name: [email or web address] ?Address: [address] [place] [id number] ?Director: Ravi Raphael us Veronica Chacon PETROLEUM SUPPLY SPECIALIST LAB PATHOLOGY ORDERABLES Final R esult [facility] [place], [place] documented in this encounter Visit Diagnoses Not on filedocumented in this encounter Care Teams Real Estate Leasing Agent Relationship Specialty Start Date End Date No, Physician PCP - General 06/08/18 10/14/18 documented as of this encounter
--- OUTSIDE RECORDS SUMMARY | 2024-02-12 09:00 | XMS_ITS | Encounter Summary ---
Author Organization [facility] Medical [facility] Address [address] [place] [address] Care Team Providers Care Publications Inspector Name Role Phone No, Physician Primary Care Provider [phone] Reason for Visit * Reason Onset Date Comments cytotec, side effects 07/08/2018 Encounter Details Date Type Department Care Team (Late st Contact Info) Description 07/08/2018 Telephone [facility] [address] [facility] [address] [place] [address] Isabela Chacon RN cytotec, side effects Social History Tobacco Use Types Packs/Day Years Used Date Smoking Tobacco: Every Day Cigarettes Smokeless Tobacco: Never Alcohol Use Standard Drinks/Week Comments No 0 (1 standard drink = 0.6 oz pur e alcohol) Comments No Sex and Gender Information Value Date Recorded Sex Assigned at Not on file 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
--- OUTSIDE RECORDS SUMMARY | 2024-02-12 09:00 | XMS_ITS | Encounter Summary ---
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
--- OUTSIDE RECORDS SUMMARY | 2024-02-12 09:00 | XMS_ITS | Encounter Summary ---
Author Organization [facility] Address [address] [place] [address] Phone Care Team Providers Care Sap Payroll Consultant Name Role Phone Enma Jones MD Primary Care Provider [phone] Reason for Referral * (Routine) - Closed Specialty Diagnoses / Procedures Referred By Contac t Referred To Contact Diagnoses Tinnitus of both ears Procedures Tympanometry Aliyah Varghese NP [address] [facility] [address] [place] [address] Phone: tel: fax: [facility] (All Locations) Referral ID Status Reason Start Date Expiration Date Visits Re quested Visits Authorized [id number] Closed 01/28/2022 02/27/2023 1 1 S CUT OFF SUPERVISOR Reason for Visit * Reason Comments New Patient * Consultation (Routine) - Closed Specialty Diagnoses / Procedures Referred By Contac t Referred To Contact Infectious Diseases Diagnoses COVID-19 Marv Armstrong MD [address] [facility] [address] [place] [address] Phone: tel: fax: [facility] (All Locations) Referral ID Status Reason Start Date Expiration Date V isits Requested Visits Authorized [id number] Closed Specialty Services Required 09/25/2021 10/25/2022 40 40 Encounter Details Date Type Department Care Team (Late st Contact Info) Description 01/24/2022 9:00 AM GLASS CUT OFF SUPERVISOR Office Visit [facility] Infectious Diseases [address] [place] [address] [address] [place] [address] Aliyah Varghese NP [address] [facility] [address] [place] [address] Ben MUELLERID (Primary Dx); COVID-19; COVID-19 long [...] file Legal Sex Female 1:16 PM GLASS CUT OFF SUPERVISOR Gender Identity Not on file Sexual Orientation Not on file documented as of this encounter Last Filed Vital Signs Vital Sign Reading Time Taken Comments Blood Pressure 119/74 01/24/2022 9:39 AM GLASS CUT OFF SUPERVISOR Pulse 77 01/24/2022 9:39 AM GLASS CUT OFF SUPERVISOR Temperature 37 ??C (98.6 ??F) 01/24/2022 9:39 AM GLASS CUT OFF SUPERVISOR Respiratory Rate - - Oxygen Saturation - - Inhaled Oxygen Concentration - - Weight 91.8 kg (202 lb 4.8 oz) 01/24/2022 9:39 A M GLASS CUT OFF SUPERVISOR Height - - Body Mass Index 37 07/09/2018 10:05 AM CDT documented in this encounter Patient Instructions * Patient Instructions* Aliyah Varghese NP - 01/24/2022 9:00 AM GLASS CUT OFF SUPERVISOR [facility]-19 Clinic Phone number: [phone] Clinic fax number: [phone] Please have your labs drawn. We will [...] floral, resinous, spicy). Please use the website ProspectStreament.org where directions on smell training and creating a smell kit can be found Please ensure your safety by ensuring smoke and carbon monoxide alarms are working, review food expiration dates and have another smell food if there is a concern For your Hearing test, you should also receive a phone call to schedule. Mental Health Resources [facility] Medicine [place] Phone number: [phone] Website with online intake option Three locations in [place]: [facility], [facility], [facility] Service [facility] Doctoral Students supervised by PhD Psychologists Call for an appointment: [phone] [facility] Phone number: [phone] [facility] (therapy): [phone] Psychiatry Resources: [facility]: [phone] [facility] Behavioral Health: [phone] [facility]: [phone] Follow up 6 mos. You will receive electronic pre-visit questionnaires ahead of your visit. Please complete these at least 48 hours in advance of your visit. [facility] [employer] https://world.physio/toolkit/njazq-zs-twa-3674-vzcxuemkszs-pkocrs-puerto rican Body Politic: https://www.Agile Media Networkitic.com/ [employer] https://www.rcot.co.uk/kva-feqlmd-vazk-qbhil-lrgdgzg-yufmz-covid-19-0 Recommend taking precautions to avoid other viral infections - high-quality mask (ideally N95/KN95) in public indoor spaces - wash hands frequently - keep updated on vaccinations, including COVID vaccines (and boosters) and influenza vaccine S CUT OFF SUPERVISOR documented in this encounter Progress Notes * Aliyah Varghese, GRACE - 01/24/2022 9:00 AM CST [facility] (CARE) from COVID Clinic Initial Visit Chief Complaint: Chief Complaint Patient presents with New Patient HPI: Oumou Middleton is a 46 y.o. White female presenting to for long COVID evaluation. 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 Neurologic exam today with no focal deficit - laboratory evaluation for reversible factors: B12, thiamine, folate, homocysteine, Vit D, magnesium, LFTs, BMP, TSH, free T3, free T4 - Neuroimaging: deferred as no focal neurologic symptoms and symptoms not progressing - Reviewed [facility] behavioral recommendations of pacing and energy conservation, reiterated that energy management includes cognitive energy - New referrals: OT and SECURITY OFFICERS AND GUARDS Shortness of breath or dyspnea: patient had [...] confirmed pulmonary dysfunction - Referral to [facility] SECURITY OFFICERS AND GUARDS for supportive breathing exercises Disrupted Sleep: - [...] reassess hearing for improvement at next visit 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 Aliyah Varghese NP S CUT OFF SUPERVISOR * Alana Gaytan LCSW - 01/24/2022 9:00 AM CST SW met with patient in the exam room. Introduced self and role. Passed on contact phone number and encouraged patient to call with questions/concerns, or if she is needing Community Resources or any Open Claims Representative assistance. Patient acknowledged. Patient had some questions about FLMA. 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 Suggested patient have her Rough Rice Grader, or another specialist that she sees on [...] will remain available to patient as needed. S CUT OFF SUPERVISOR documented in this encounter Plan of Treatment Scheduled Orders Name Type Priority Associated Diagnoses Orde r Schedule Tympanometry Audiology Routine Tinnitus of both ears 1 Occurrences starting 01/28/2022 until 01/28/2023 documented as of this encounter Procedures Procedure Name Priority Date/Time Associated Diagnosis Comments EGFR Routine 01/24/2022 11:21 AM GLASS CUT OFF SUPERVISOR Long COVID DIFFERENTIAL AUTO Routine 01/24/2022 11: 21 AM GLASS CUT OFF SUPERVISOR Long COVID THYROID FUNCTION CASCADE Routine 01/24/2022 11:21 AM GLASS CUT OFF SUPERVISOR Long COVID HIV 1/2 ANTIBODY PLUS P24 ANTIGEN Routine 01/24/2022 11:21 AM GLASS CUT OFF SUPERVISOR Long COVID CBC WITH AUTO DIFFERENTIAL Routine 01/24/2022 11:21 AM GLASS CUT OFF SUPERVISOR Long COVID METHYLMALONIC ACID, SERUM Routine 01/24/2022 11:21 AM GLASS CUT OFF SUPERVISOR Long COVID EJ-العراقي VIRUS VCA, IGM Routine 01/24/2022 11:21 AM GLASS CUT OFF SUPERVISOR Long COVID EJ العراقي VIRUS VCA, IGG Routine 01/24/2022 11:21 AM GLASS CUT OFF SUPERVISOR Long COVID ERYTHROCYTE SEDIMENTATION RATE Routine 01/24/2022 11:21 AM GLASS CUT OFF SUPERVISOR Long COVID CRP, HIGH SENSITIVITY Routine 01/24/2022 11:21 AM GLASS CUT OFF SUPERVISOR Long COVID T3, FREE Routine 01/24/2022 11:21 AM GLASS CUT OFF SUPERVISOR Long COVID VITAMIN B1 Routine 01/24/2022 11:21 AM GLASS CUT OFF SUPERVISOR Long COVID MAGNESIUM Routine 01/24/2022 11:21 AM GLASS CUT OFF SUPERVISOR Long COVID FOLATE Routine 01/24/2022 11:21 AM GLASS CUT OFF SUPERVISOR Long COVID VITAMIN B12 Routine 01/24/2022 11:21 AM GLASS CUT OFF SUPERVISOR Long COVID CREATINE KINASE (CK), TOTAL Routine 01/24/2022 11:21 AM GLASS CUT OFF SUPERVISOR Long COVID HEPATIC FUNCTION PANEL Routine 11:21 AM GLASS CUT OFF SUPERVISOR Long COVID BASIC METABOLIC PANEL Routine 01/24/2022 11:21 AM GLASS CUT OFF SUPERVISOR Long COVID documented in this encounter Results * eGFR (01/24/2022 11:21 AM GLASS CUT OFF SUPERVISOR) [facility] eGFR >90 90 - 130 mL/min/1. 73 m2 [facility] Comment: Interpretive Data Reference Interval Normal ?>/= [...] reviewed 2020. Blood 01/24/2022 11:2 1 AM GLASS CUT OFF SUPERVISOR 01/24/2022 4:16 PM GLASS CUT OFF SUPERVISOR us Aliyah Varghese LOGGING TRACTOR OPERATOR LAB BLOOD ORDERABLES Final Result Performing Organization Address City/State/[facility] Co de Phone Number [facility] Department [place] [address] * Differential, auto (01/24/2022 11:21 AM GLASS CUT OFF SUPERVISOR) Neutrophil abs 4.2 1.7 - 6.5 K/cumm [facility] Imm gran abs 0.0 0.0 - 0.1 K/cumm [facility] Lymphocyte abs 1.8 0.8 - 3.3 K/cumm [facility] Monocyte abs 0.3 0.2 - 0.8 K/cumm [facility] Eosinophil abs 0.4 0.0 - 0.5 K/cumm [facility] Basophil abs 0.1 0.0 - 0.1 K/cumm [facility] Neutrophil pct 62.6 % [facility] Comment: Interpretive Data Percent cell count reference ranges are not reported, since discordance with absolute values may lead to misinterpretation of CBC data. Current Interpretive Data was last revised on 2017. Imm gran pct 0.3 % [facility] Comment: Interpretive Data Percent cell count reference ranges are not reported, since discordance with absolute values may lead to misinterpretation of CBC data. Current Interpretive Data was last revised on 2017. Lymphocyte pct 26.5 % [facility] Comment: Interpretive Data Percent cell count reference ranges are not reported, since discordance with absolute values may lead to misinterpretation of CBC data. Current Interpretive Data was last revised on 2017. Monocyte pct 4.5 % [facility] Comment: Interpretive Data Percent cell count reference ranges are not reported, since discordance with absolute values may lead to misinterpretation of CBC data. Current Interpretive Data was last revised on 2017. Eosinophil pct 5.2 % [facility] Comment: Interpretive Data Percent cell count reference ranges are not reported, since discordance with absolute values may lead to misinterpretation of CBC data. Current Interpretive Data was last revised on 2017. Basophil pct 0.9 % [facility] Comment: Interpretive Data Percent cell count reference ranges are not reported, since discordance with absolute values may lead to misinterpretation of CBC data. Current Interpretive Data was last revised on 2017. Blood 01/24/2022 11:2 1 AM GLASS CUT OFF SUPERVISOR 01/24/2022 4:00 PM GLASS CUT OFF SUPERVISOR us Aliyah Varghese NP LAB BLOOD ORDERABLES Final Result [facility] Department [place] [address] * HIV 1/2 Antibody plus p24 Antigen Blood (01/24/2022 11:21 AM GLASS CUT OFF SUPERVISOR) HIV 1/2 ab + p24 ag Nonreactive Nonreactive [facility] Comment:Nonreactive for HIV- 1 antigen and HIV-1/HIV-2 antibodies. No laboratory evidence of HIV infection. If acute HIV infection is suspected, consider testing for HIV-1 RNA. Current interpretive data was last revised on 21. Blood 01/24/2022 11:2 1 AM GLASS CUT OFF SUPERVISOR 01/24/2022 4:00 PM GLASS CUT OFF SUPERVISOR Aliyah Varghese NP LAB MICROBIOLOGY - GE NERAL ORDERABLES Final Result Performing Organization Address [facility] Co de Phone Number [facility] Department [place] [address] * Ej-العراقي virus VCA, IgM (01/24/2022 11:21 AM GLASS CUT OFF SUPERVISOR) EBV VCA IgM Negative Negative [facility] Comment: Interpretive Data Results ? Interpretation Negative [...] revised 05/21/2016. Blood 01/24/2022 11:2 1 AM GLASS CUT OFF SUPERVISOR 01/24/2022 4:00 PM GLASS CUT OFF SUPERVISOR Aliyah Varghese NP LAB BLOOD ORDERABLES Final Result Performing Organization Address [facility] Co de Phone Number [facility] [place] [address] * (ABNORMAL) Ej العراقي virus VCA, IgG (01/24/2022 11:21 AM GLASS CUT OFF SUPERVISOR) [facility] EBV VCA IgG Positive( A) Negative [facility] Comment: Interpretive Data Results ? Interpretation Negative ?No detectable antibody to VCA IgG ?antibody. Equivocal ? Uncertain immune status, suggest ?sending additional sample. Positive ?Indicates the presence of antibody; ?90% of the adult population will ?have been infected with EBV sometime ?in the past. Interpretive data revised 05/21/2016. Blood 01/24/2022 11:2 1 AM GLASS CUT OFF SUPERVISOR 01/24/2022 4:00 PM GLASS CUT OFF SUPERVISOR us Aliyah Varghese LOGGING TRACTOR OPERATOR LAB BLOOD ORDERABLES Final Result Performing Organization Address [facility] [place] [address] * Magnesium (01/24/2022 11:21 AM GLASS CUT OFF SUPERVISOR) [facility] Magnesium 2.0 1.4 - 2.5 mg/dL [facility] Blood 01/24/2022 11:2 1 AM GLASS CUT OFF SUPERVISOR 01/24/2022 4:00 PM GLASS CUT OFF SUPERVISOR Aliyah Varghese LOGGING TRACTOR OPERATOR LAB BLOOD ORDERABLES Final Result Performing Organization Address [facility] [place] [address] * Vitamin B1 (01/24/2022 11:21 AM GLASS CUT OFF SUPERVISOR) Thiamine (Vit B1) 129 70 - 180 nmol/L [facility] Comment: ADDITIONAL INFORMATION This test was developed and its performance characteristics determined by [facility] in a manner consistent with CLIA requirements. This test has not been cleared or approved by the U.S. Food and Drug Administration. Test Performed by: [facility] [address] [place] [address] Flue Dust Laborer: Av Pink M.D. Ph.D.; CLIA# [id number] Blood 01/24/2022 11:2 1 AM GLASS CUT OFF SUPERVISOR 01/24/2022 4:58 PM GLASS CUT OFF SUPERVISOR Aliyah Varghese NP LAB BLOOD ORDERABLES Final Result Performing Organization Address City/[facility] Co de Phone Number [facility] [place] [address] * Folate (01/24/2022 11:21 AM GLASS CUT OFF SUPERVISOR) [facility] Folic acid 8.2 >=5.0 ng/mL [facility] Blood 01/24/2022 11:2 1 AM GLASS CUT OFF SUPERVISOR 01/24/2022 4:00 PM GLASS CUT OFF SUPERVISOR Aliyah Varghese NP LAB BLOOD ORDERABLES Final Result Performing Organization Address [facility] de Phone Number [facility] [place] [address] * Methylmalonic acid, serum (01/24/2022 11:21 AM GLASS CUT OFF SUPERVISOR) [facility] MMA 0.11 <=0.40 nmol/mL [facility] Comment: ADDITIONAL INFORMATION This test was developed and its performance characteristics determined by [facility] in a manner consistent with CLIA requirements. This test has not been cleared or approved by the U.S. Food and Drug Administration. Test Performed by: [facility] [address] [address] Flue Dust Laborer: Av Pink M.D. Ph.D.; CLIA# [id number] Blood 01/24/2022 11:2 1 AM GLASS CUT OFF SUPERVISOR 01/24/2022 5:04 PM GLASS CUT OFF SUPERVISOR Aliyah Varghese NP LAB BLOOD ORDERABLES Final Result Performing Organization Address City/[facility]/[place] [address] * Vitamin B12 (01/24/2022 11:21 AM GLASS CUT OFF SUPERVISOR) Vitamin B12 564 230 - 1,250 pg/mL [facility] Blood 01/24/2022 11:2 1 AM GLASS CUT OFF SUPERVISOR 01/24/2022 4:00 PM GLASS CUT OFF SUPERVISOR Aliyah Varghese NP LAB BLOOD ORDERABLES Final Result Performing Organization Address [facility] Co de Phone Number [facility] [address] * Creatine kinase (CK), total (01/24/2022 11:21 AM GLASS CUT OFF SUPERVISOR) CK 58 30 - 200 Units/L [facility] Blood 01/24/2022 11:2 1 AM GLASS CUT OFF SUPERVISOR 01/24/2022 4:00 PM GLASS CUT OFF SUPERVISOR Aliyah Varghese NP LAB BLOOD ORDERABLES Final Result Performing Organization Address City/[facility] [place] [address] * (ABNORMAL) Erythrocyte sedimentation rate (01/24/2022 11:21 AM GLASS CUT OFF SUPERVISOR) [facility] Erythrocyte sedimentation rate 25(H) 1 - 20 mm/hr [facility] Blood 01/24/2022 11:2 1 AM GLASS CUT OFF SUPERVISOR 01/24/2022 4:00 PM GLASS CUT OFF SUPERVISOR Aliyah Varghese NP LAB BLOOD ORDERABLES Final Result Performing Organization Address City/[facility] Co de Phone Number [facility] [place] [address] * CRP (cardiac risk) (01/24/2022 11:21 AM GLASS CUT OFF SUPERVISOR) [facility] hsCRP 3.38 mg/L [facility] Comment: Interpretive data Adult only - values [...] on 2017. Blood 01/24/2022 11:2 1 AM GLASS CUT OFF SUPERVISOR 01/24/2022 4:00 PM GLASS CUT OFF SUPERVISOR Aliyah Varghese NP LAB BLOOD ORDERABLES Final Result Performing Organization Address City/[facility] Co de Phone Number [facility] [place] [address] * T3, free (01/24/2022 11:21 AM GLASS CUT OFF SUPERVISOR) [facility] Free T3 3.1 2.0 - 4.4 pg/mL [facility] Blood 01/24/2022 11:2 1 AM GLASS CUT OFF SUPERVISOR 01/24/2022 4:00 PM GLASS CUT OFF SUPERVISOR Aliyah Varghese LOGGING TRACTOR OPERATOR LAB BLOOD ORDERABLES Final Result Performing Organization Address City/[facility] Co de Phone Number [facility] Department [place] [address] * TSH reflex to free T4 (01/24/2022 11:21 AM GLASS CUT OFF SUPERVISOR) Pathologist [facility] TSH 0.42 0.30 - 4.20 mcIUnit/mL [facility] Blood 01/24/2022 11:2 1 AM GLASS CUT OFF SUPERVISOR 01/24/2022 4:00 PM GLASS CUT OFF SUPERVISOR Aliyah Varghese NP LAB BLOOD ORDERABLES Final Result Performing Organization Address [facility] de Phone Number [facility] Department [place] [address] * (ABNORMAL) Hepatic function panel (01/24/2022 11:21 AM GLASS CUT OFF SUPERVISOR) Bilirubin, total 0.8 0.1 - 1.2 mg/dL [facility] Bilirubin, direct <0.2 0.1 - 0.3 mg/dL [facility] Protein, pl 7.7 6.5 - 8.5 g/dL [facility] Albumin 4.5 3.5 - 5.0 g/dL [facility] Alk phos 80 40 - 130 Units/L [facility] ALT 49(H) 7 - 45 Units/L [facility] AST 32 10 - 45 Units/L [facility] Blood 01/24/2022 11:2 1 AM GLASS CUT OFF SUPERVISOR 01/24/2022 4:00 PM GLASS CUT OFF SUPERVISOR Aliyah Varghese LOGGING TRACTOR OPERATOR LAB BLOOD ORDERABLES Final Result Performing Organization Address City/[facility] Co de Phone Number [facility] Department [place] [address] * (ABNORMAL) Basic metabolic panel (01/24/2022 11:21 AM GLASS CUT OFF SUPERVISOR) [facility] Sodium 142 135 - 145 mmol/L [facility] Potassium, pl 3.7 3.3 - 4.9 mmol/L [facility] Chloride 105 97 - 110 mmol/L [facility] CO2 24 22 - 32 mmol/L [facility] Anion gap 13 2 - 15 mmol/L [facility] BUN 8 8 - 25 mg/dL [facility] Creatinine 0.56(L) 0.60 - 1.10 mg/dL [facility] Glucose 337(H) 70 - 199 mg/dL [facility] Comment: Interpretive Data Fasting glucose >/= 126 [...] 2017. Calcium 9.6 8.5 - 10.3 mg/dL [facility] Blood 01/24/2022 11:2 1 AM GLASS CUT OFF SUPERVISOR 01/24/2022 4:00 PM GLASS CUT OFF SUPERVISOR Aliyah Varghese NP LAB BLOOD ORDERABLES Final Result [facility] Department [place] [address] * CBC with auto differential (01/24/2022 11:21 AM GLASS CUT OFF SUPERVISOR) [facility] WBC 6.7 3.8 - 9.9 K/cumm [facility] Hgb 13.8 11.9 - 15.5 g/dL [facility] Hct 42.0 35.6 - 45.5 % [facility] Plt 314 150 - 400 K/cumm [facility] MPV 11.2 9.1 - 12.3 fL [facility] RBC 5.07 3.90 - 5.20 M/cumm [facility] MCV 82.8 81.3 - 96.4 fL [facility] MCH 27.2 27.1 - 33.3 pg [facility] MCHC 32.9 32.3 - 35.7 g/dL [facility] RDW CV 13.5 11.1 - 14.9 % [facility] RDW SD 40.4 35.7 - 48.1 fL [facility] NRBC abs 0.00 0.00 - 0.01 K/cumm [facility] Blood 01/24/2022 11:2 1 AM GLASS CUT OFF SUPERVISOR 01/24/2022 4:00 PM GLASS CUT OFF SUPERVISOR us Aliyah Varghese LOGGING TRACTOR OPERATOR LAB BLOOD ORDERABLES Final Result Performing Organization Address City/State/[facility] Co de Phone Number [facility] Department [place] [address] documented in this encounter Visit Diagnoses Diagnosis [...] 2021 documented in this encounter Care Teams Sap Payroll Consultant Relationship Specialty Start Date End Date Enma Jones MD PCP - General 10/15/18 04/18/22 Alana Gaytan, [address] [address] Textile Machine Maintenance Mechanic Infectious Diseases 01/24/22 documented as of this encounter
--- OUTSIDE RECORDS SUMMARY | 2024-02-12 09:00 | XMS_ITS | Encounter Summary ---
Author Organization [facility] Address [address] [place] [address] Care Team Providers Care Steel Post Installer Name Role Phone No, Physician Primary Care Provider [phone] Reason for Visit * Reason Onset Date Comments biopsy results 07/14/2018 Encounter Details Date Type Department Care Team (Late st Contact Info) Description 07/14/2018 Telephone Linkage [address] [facility] [address] [place] [address] Isabela Chacon RN biopsy results Social History Tobacco Use Types Packs/Day Years Used Date Smoking Tobacco: Every Day Cigarettes Smokeless Tobacco: Never Alcohol Use Standard Drinks/Week Comments No 0 (1 standard drink = 0.6 oz pur e alcohol) Comments No Sex and Gender Information Value Date Recorded Sex Assigned at Not on file Legal Sex Female 1:16 PM NEWS CORRESPONDENT Gender Identity Not on file Sexual Orientation [...] on filedocumented in this encounter Care Teams Steel Post Installer Relationship Specialty Start Date End Date No, Physician PCP - General 06/08/18 10/14/18 documented as of this encounter
--- OUTSIDE RECORDS SUMMARY | 2024-02-12 09:00 | XMS_ITS | Encounter Summary ---
Author Organization [facility] Address [address] [place] [address] Phone Care Team Providers Care Direct Mail Marketer Name Role Phone Enma Jones MD Primary Care Provider [phone] [phone] Reason for Referral * MRI/CAT/PET Scan (Routine) - Closed Specialty Diagnoses / Procedures Referred By Shmuel angel Referred To Contact Radiology Diagnoses Hyperacusis of both ears Procedures CT Temporal Bones WO Contrast Melanie Mendez NP [address] [place] [address] Phone: tel: fax: [address] [address] Referral ID Status Reason Start Date Expiration Date Visits Re quested Visits Authorized [id number] Closed 03/14/2022 04/13/2022 1 1 TRY OFFAL WORKER * Consultation (Routine) - Denied Specialty Diagnoses / Procedures Referred By Contteri t Referred To Contact Otolaryngology Diagnoses Hearing loss, unspecified hearing loss type, unspecified laterality Enma Jones MD [address] [place] [address] Phone: tel: fax: [facility] (All Locations) Referral ID Status Reason Start Date Expiration Date V isits Requested Visits Authorized [id number] Denied Specialty Services Required 02/27/2022 03/29/2023 99 0 Question Answer Please select the performing region: [facility] (All Locations) [167] # of visits: 1 TRY OFFAL WORKER Reason for Visit * Reason Comments Hearing Loss Tinnitus * Consultation (Routine) - Denied Specialty Diagnoses / Procedures Referred By Contac t Referred To Contact Otolaryngology Diagnoses Hearing loss, unspecified hearing loss type, unspecified laterality Enma Jones MD [address] [place] [address] Phone: tel: fax: [facility] (All Locations) Referral ID Status Reason Start Date Expiration Date V isits Requested Visits Authorized [id number] Denied Specialty Services Required 02/27/2022 03/29/2023 99 0 Encounter Details Date Type Department Care Team (Late st Contact Info) Description 03/01/2022 2:00 PM POULTRY OFFAL WORKER Office Visit [facility] ENT [address] [facility] Medical Office Building [address] [place] [address] Melanie Mendez NP [address] [place] [address] Hyperacusis of both ears (Primary [...] on file Legal Sex Female 1:16 PM POULTRY OFFAL WORKER Gender Identity Not on file Sexual Orientation Not on file documented as of this encounter Ordered Prescriptions Prescription Sig Dispense Quantity Refills Last Filled Start Date End Date triamcinolone (NASACORT) 55 mcg nasal inhaler Administer 2 sprays into each nostril daily 1 g 11 03/01/2022 documented in this encounter Progress Notes * Melanie Mendez, FLOOR SCRAPER - 03/01/2022 2:00 PM CST Reason for [...] of ears and nose. Previously lived in [place]. Struggled with allergies. After moving here in [...] call with results Daily nasal saline Nasacort TRY OFFAL WORKER documented in this encounter Plan of Treatment Scheduled Referrals Name Type Priority Associated Diagnoses Orde r Schedule Ambulatory referral to ENT Outpatient Referral Routine Hearing loss, unspecified hearing loss type, unspecified laterality Expected: 03/13/2022 (Approximate), Expires: 02/27/2023 documented as of this encounter Results * CT Temporal Bones WO Contrast (03/14/2022 3:15 PM POULTRY OFFAL WORKER) Anatomical Region Laterality Modality Head and Neck N/A Computed Tomogra phy 03/14/2022 3:42 PM POULTRY OFFAL WORKER Impressions 03/14/2022 4:07 PM POULTRY OFFAL WORKER No definite CT findings to explain the patient's symptoms. Dictated by: Josue Rivera MD The radiology attending physician has personally reviewed this study, and had reviewed and/or edited this written report and agrees with it. Electronically signed by: Amado Vicente M.D. Narrative 03/14/2022 4:07 PM POULTRY OFFAL WORKER EXAMINATION: CT of the temporal bones without [...] anxiety added in this encounter Care Teams Direct Mail Marketer Relationship Specialty Start Date End Date Enma Jones MD PCP - General 10/15/18 04/18/22 Alana Gaytan [facility] [address] [place] [address] Merchandise Collector Infectious Diseases 01/24/22 documented as of this encounter
--- OUTSIDE RECORDS SUMMARY | 2024-02-12 09:00 | XMS_ITS | Encounter Summary ---
Author Organization [facility] Healthcare Address [address] [place] [address] Care Team Providers Care Medical Program Specialist Name Role Phone Enma Jones MD Primary Care Provider [phone] [phone] Reason for Referral * Diagnostic Imaging (Routine) - Closed Specialty Diagnoses / Procedures Referred By Contac t Referred To Contact Radiology Diagnoses Dorsalgia Procedures MRI Lumbar Spine WO Contrast Millicent Luo MD Phone: tel: fax: [address] [address] Referral ID Status Reason Start Date Expiration Date Visits Re quested Visits Authorized [id number] Closed 03/21/2020 04/20/2021 1 1 ERSAL BANKER * Diagnostic Imaging (Routine) - Closed Specialty Diagnoses / Procedures Referred By Contac t Referred To Contact Radiology Diagnoses Cervicalgia Procedures MRI Cervical Spine WO Contrast Millicent Luo MD Phone: tel: fax: [address] [address] Referral ID Status Reason Start Date Expiration Date Visits Re quested Visits Authorized [id number] Closed 03/21/2020 04/20/2021 1 1 ERSAL BANKER Reason for Visit * Diagnostic Imaging (Routine) - Closed Specialty Diagnoses / Procedures Referred By Contac t Referred To Contact Radiology Diagnoses Cervicalgia Procedures MRI Cervical Spine WO Contrast Millicent Luo MD Phone: tel: fax: [address] [address] Referral ID Status Reason Start Date Expiration Date Visits Re quested Visits Authorized [id number] Closed 03/21/2020 04/20/2021 1 1 Encounter Details Date Type Department Care Team (Latest Contact Info) Description 04/18/2020 9:41 AM UNIVERSAL BANKER - 04/18/2020 11:59 PM UNIVERSAL BANKER Hospital Encounter [facility] [address] [place] [address] Millicent Luo MD [address] [facility] [address] [place] [address] Cervicalgia; Dorsalgia Discharge Disposition: Discharge to home [...] on file Legal Sex Female 1:16 PM UNIVERSAL BANKER Gender Identity Not on file Sexual Orientation [...] Read Routine (OP Routine) 04/18/2020 11:12 AM UNIVERSAL BANKER Cervicalgia MRI LUMBAR SPINE WO CONTRAST Schedule Routine, Read Routine (OP Routine) 04/18/2020 10:32 AM UNIVERSAL BANKER Dorsalgia documented in this encounter Results * MRI Cervical Spine WO Contrast (04/18/2020 11:12 AM UNIVERSAL BANKER) Anatomical Region Laterality Modality Spine N/A Magnetic Resonan ce 04/18/2020 10:2 7 AM UNIVERSAL BANKER Narrative 04/18/2020 12:18 PM UNIVERSAL BANKER [facility] ?Imaging Result Name: MARY LOU MIDDLETON ? Ordering Phys: MILLICENT LUO Age: 44 ?Date of : 1975 ? Accession Number: [id number] Date of Service: 04/18/2020 ??Gender: F EXAM [...] PM T: ??04/18/2020 12:15 PM Report ID: [id number] Reading Location: ??[id number] Procedure Note Felix Berg MD - 04/18/2020 [facility] Imaging Result Name: MARY LOU MIDDLETON Ordering Phys: MILLICENT LUO Age: 44 Date of : 1975 Accession Number: [id number] Date of Service: 04/18/2020 Gender: F EXAM [...] Felix Berg M.D. BALDOMERO: BALDOMERO Report ID: [id number] Reading Location: [place] [address] [place] Millicent Luo MD IMG MRI PROCEDURES Final Result * MRI Lumbar Spine WO Contrast (04/18/2020 10:32 AM UNIVERSAL BANKER) Anatomical Region Laterality Modality Spine N/A Magnetic Resonan ce 04/18/2020 9:30 AM UNIVERSAL BANKER Narrative 04/18/2020 12:18 PM UNIVERSAL BANKER [facility] ?Imaging Result Name: MARY LOU MIDDLETON ? Ordering Phys: MILLICENT LUO Age: 44 ?Date of : 1975 ? Accession Number: [id number] Date of Service: 04/18/2020 ??Gender: F EXAM [...] PM T: ??04/18/2020 12:15 PM Report ID: [id number] Reading Location: ??[id number] Procedure Note Felix Berg MD - 04/18/2020 [facility] Imaging Result Name: MARY LOU MIDDLETON Ordering Phys: MILLICENT LUO Age: 44 Date of : 1975 Accession Number: [id number] Date of Service: 04/18/2020 Gender: F EXAM [...] Felix Berg M.D. BALDOMERO: BALDOMERO Report ID: [id number] Reading Location: [place] [address] Millicent Luo MD [facility] MRI PROCEDURES Final Result documented in this encounter Visit Diagnoses Diagnosis Cervicalgia Dorsalgia Pain in thoracic spine documented in this encounter Care Teams Medical Program Specialist Relationship Specialty Start Date End Date Enma Jones MD PCP - General 10/15/18 04/18/22 documented as of this encounter
--- OUTSIDE RECORDS SUMMARY | 2024-02-12 09:00 | XMS_ITS | Encounter Summary ---
Author Organization [facility] Healthcare Address [address] [place] [address] Care Team Providers Care Power And Recovery Superintendent Name Role Phone Enma Jones MD Primary Care Provider [phone] [phone] Reason for Referral * MRI/CAT/PET Scan (Routine) - Closed Specialty Diagnoses / Procedures Referred By Contac t Referred To Contact Radiology Diagnoses Hyperacusis of both ears Procedures CT Temporal Bones WO Contrast Melanie Mendez NP [address] [place] [address] Phone: tel: fax: [place] [address] [place] [address] Referral ID Status Reason Start Date Expiration Date Visits Re quested Visits Authorized [id number] Closed 03/14/2022 04/13/2022 1 1 B DRIVER Reason for Visit * MRI/CAT/PET Scan (Routine) - Closed Specialty Diagnoses / Procedures Referred By Contac t Referred To Contact Radiology Diagnoses Hyperacusis of both ears Procedures CT Temporal Bones WO Contrast Melanie Mendez NP [address] [place] [address] Phone: tel: fax: [place] [phone] [place] [address] Referral ID Status Reason Start Date Expiration Date Visits Re quested Visits Authorized [id number] Closed 03/14/2022 04/13/2022 1 1 Encounter Details Date Type Department Care Team (Latest Contact Info) Description 03/14/2022 2:56 PM CDL B DRIVER - 03/14/2022 11:59 PM CDL B DRIVER Hospital Encounter [facility] [address] [address] Hyperacusis of both ears Discharge Disposition: Discharge [...] on file Legal Sex Female 1:16 PM CDL B DRIVER Gender Identity Not on file Sexual [...] Read Routine (OP Routine) 03/14/2022 3:15 PM CDL B DRIVER Hyperacusis of both ears documented in this encounter Results * CT Temporal Bones WO Contrast (03/14/2022 3:15 PM CDL B DRIVER) Anatomical Region Laterality Modality Head and Neck N/A Computed Tomogra phy 03/14/2022 3:42 PM CDL B DRIVER Impressions 03/14/2022 4:07 PM CDL B DRIVER No definite CT findings to explain the patient's symptoms. Dictated by: Josue Rivera MD The radiology attending physician has personally reviewed this study, and had reviewed and/or edited this written report and agrees with it. Electronically signed by: Amado Vicente M.D. Narrative 03/14/2022 4:07 PM CDL B DRIVER EXAMINATION: CT of the temporal bones without [...] signed by: Amado Vicente M.D. Melanie Mendez DEPARTMENT SUPERVISOR IMG CT PROCEDURES Final R esult documented in this encounter Visit Diagnoses Diagnosis Hyperacusis of both ears documented in this encounter Care Teams Power And Recovery Superintendent Relationship Specialty Start Date End Date Enma Jones MD PCP - General 10/15/18 04/18/22 Alana Gaytan, [facility] [address] [place] [address] Manager Sign Infectious Diseases 01/24/22 documented as of this encounter
--- OUTSIDE RECORDS SUMMARY | 2024-02-12 09:00 | XMS_ITS | Encounter Summary ---
Author Organization [facility] Address [address] [place] [address] Phone Care Team Providers Care Marine Driller Name Role Phone Enma Jones MD Primary Care Provider [phone] [phone] Reason for Visit * Reason Comments Audiometric Evaluation * (Routine) - Closed Specialty Diagnoses / Procedures Referred By Shmuel angel Referred To Contact Diagnoses Tinnitus of both ears Procedures Tympanometry Aliyah Varghese, GRACE [address] [facility] [address] [place] [address] Phone: tel: fax: [facility] (All Locations) Referral ID Status Reason Start Date Expiration Date Visits Re quested Visits Authorized [id number] Closed 01/28/2022 02/27/2023 1 1 Encounter Details Date Type Department Care Team (Latest Contact Info) Description 03/01/2022 1:00 PM RN DOCUMENTATION SPECIALIST Procedure visit [facility] Otolaryngology [address] [facility] Medical Office Building [address] [place] [address] Tea Arrington Au.D. [address] [place] [address] Tinnitus of both ears (Primary [...] file Legal Sex Female 1:16 PM RN DOCUMENTATION SPECIALIST Gender Identity Not on file Sexual Orientation Not on file documented as of this encounter Procedure Notes * Tea Arrington Au.D. - 03/01/2022 1:00 PM CST Images from the original note were not included. Procedures Sandra Monterroso, [facility] PATIENT: Oumou Middleton : 1975 TYPE OF SERVICE: Comprehensive Audiometric Evaluation DATE OF SERVICE: 03/01/2022 Referral Source: Aliyah Varghese* Audiogram completed per physician referral. The patient had an appointment with Hermelinda Brizuelairectrodolfo following today's evaluation. See scanned audiogram for results. Detailed medical history was obtained by medical office supervisor and reviewed. Results were reviewed with the patient by casing machine operator and/or physician. DOCUMENTATION SPECIALIST documented in this encounter Plan of Treatment Not on file documented as of this encounter Procedures Procedure Name Priority Date/Time Associated Diagnosis Comments AUDBASE RESULTS 03/01/2022 12:58 PM RN DOCUMENTATION SPECIALIST documented in this encounter Results * AUDBASE RESULTS (03/01/2022 12:58 PM RN DOCUMENTATION SPECIALIST) Provider Scanning AUDIOLOGY SERVICES ORDERABLES Final Result documented in this encounter Visit Diagnoses Diagnosis Tinnitus of both ears- Primary Unspecified tinnitus documented in this encounter Orders Audiology Count Last Ordered Date First Orde red Date TYMPANOMETRY 1 03/01/2022 documented in this encounter Care Teams Marine Driller Relationship Specialty Start Date End Date Enma Jones MD PCP - General 10/15/18 04/18/22 Alana Gaytan, BUILDING MAINTENANCE MECHANIC [address] [place] [address] Toys And Games Hand Finisher Infectious Diseases 01/24/22 documented as of this encounter
--- OUTSIDE RECORDS SUMMARY | 2024-02-12 09:00 | XMS_ITS | Encounter Summary ---
Author Organization [facility] Healthcare Address [address] [place] [address] Care Team Providers Care Fuel Oil Truck Driver Name Role Phone Enma Jones MD Primary Care Provider [phone] [phone] Reason for Referral * Diagnostic Imaging (Routine) - Closed Specialty Diagnoses / Procedures Referred By Contac t Referred To Contact Diagnoses Ganglion, unspecified ankle and foot Procedures US Lower Extremity Left Limited Krys Ward NP [address] [address] Phone: tel: fax: [address] [address] Referral ID Status Reason Start Date Expiration Date Visits Re quested Visits Authorized [id number] Closed 12/30/2018 07/10/2020 1 1 AL DRILL PRESS OPERATOR FOR PLASTIC Reason for Visit * Diagnostic Imaging (Routine) - Closed Specialty Diagnoses / Procedures Referred By Contac t Referred To Contact Diagnoses Ganglion, unspecified ankle and foot Procedures US Lower Extremity Left Limited Krys Ward NP [address] [address] Phone: tel: fax: [address] [address] Referral ID Status Reason Start Date Expiration Date Visits Re quested Visits Authorized [id number] Closed 12/30/2018 07/10/2020 1 1 Encounter Details Date Type Department Care Team (Latest Contact Info) Description 01/01/2019 12:00 PM RADIAL DRILL PRESS OPERATOR FOR PLASTIC - 01/01/2019 12:13 PM RADIAL DRILL PRESS OPERATOR FOR PLASTIC Hospital Encounter [facility] [address] [place] [address] Krys Ward, LINSEED OIL ORDER FILLER [address] [address] Ganglion, unspecified ankle and foot Discharge Disposition: [...] on file Legal Sex Female 1:16 PM RADIAL DRILL PRESS OPERATOR FOR PLASTIC Gender Identity Not on file Sexual Orientation [...] Read Routine (OP Routine) 01/01/2019 12:46 PM RADIAL DRILL PRESS OPERATOR FOR PLASTIC Ganglion, unspecified ankle and foot documented in this encounter Results * US Lower Extremity Left Limited (01/01/2019 12:46 PM RADIAL DRILL PRESS OPERATOR FOR PLASTIC) Anatomical Region Laterality Modality Lower Extremities Left Ultrasound 01/01/2019 2:50 PM RADIAL DRILL PRESS OPERATOR FOR PLASTIC Impressions 01/01/2019 2:53 PM RADIAL DRILL PRESS OPERATOR FOR PLASTIC 1. ??No identifiable ganglion cyst or mass corresponding to the lump on plantar surface of foot 2nd toe region. Electronically signed by: Jhony Todd Jr., M.D. Narrative 01/01/2019 2:53 PM RADIAL DRILL PRESS OPERATOR FOR PLASTIC US LOWER EXTREMITY LEFT LIMITED HISTORY: Ganglion, [...] Jhony R. Schranck Jr., M.D. Krys Ward LINSEED OIL ORDER FILLER IMG US PROCEDURES Final Resu lt documented in this encounter Visit Diagnoses Diagnosis Ganglion, unspecified ankle and foot documented in this encounter Care Teams Fuel Oil Truck Driver Relationship Specialty Start Date End Date Enma Jones MD PCP - General 10/15/18 04/18/22 documented as of this encounter
--- OUTSIDE RECORDS SUMMARY | 2024-02-12 09:00 | XMS_ITS | Encounter Summary ---
Author Organization [facility] Healthcare Address [address] [place] [address] Care Team Providers Care Environmental Field Professional Name Role Phone Enma Jones MD Primary Care Provider [phone] [phone] Reason for Referral * Diagnostic Imaging (Routine) - Closed Specialty Diagnoses / Procedures Referred By Contac t Referred To Contact Diagnoses Ganglion cyst of foot Procedures XR Foot Left 3 or More Views Krys Ward NP [address] [address] Phone: tel: fax: [address] [address] Referral ID Status Reason Start Date Expiration Date Visits Re quested Visits Authorized [id number] Closed 12/31/2018 07/11/2020 1 1 CAL IMAGING SPECIALIST Reason for Visit * Diagnostic Imaging (Routine) - Closed Specialty Diagnoses / Procedures Referred By Contac t Referred To Contact Diagnoses Ganglion cyst of foot Procedures XR Foot Left 3 or More Views Krys Ward NP [address] [address] Phone: tel: fax: [address] [address] Referral ID Status Reason Start Date Expiration Date Visits Re quested Visits Authorized [id number] Closed 12/31/2018 07/11/2020 1 1 Encounter Details Date Type Department Care Team (Latest Contact Info) Description 01/01/2019 12:14 PM MEDICAL IMAGING SPECIALIST - 01/01/2019 11:59 PM MEDICAL IMAGING SPECIALIST Hospital Encounter [facility] [address] [place] [address] Nida Worrell MD [address] [facility] [address] [place] [address] Krys Ward, MEAT CARRIER [address] [address] Ganglion cyst of foot Discharge Disposition: Discharge [...] on file Legal Sex Female 1:16 PM MEDICAL IMAGING SPECIALIST Gender Identity Not on file Sexual [...] Read Routine (OP Routine) 01/01/2019 12:20 PM MEDICAL IMAGING SPECIALIST Ganglion cyst of foot documented in this encounter Results * XR Foot Left 3 or More Views (01/01/2019 12:20 PM MEDICAL IMAGING SPECIALIST) Anatomical Region Laterality Modality Lower Extremities, Foot Left Computed Radiography 01/01/2019 2:53 PM MEDICAL IMAGING SPECIALIST Impressions 01/01/2019 2:55 PM MEDICAL IMAGING SPECIALIST 1. No discretely identifiable radiographic abnormality corresponding to the clinical finding described above. 2. ??Minimal 1st MTP joint degenerative change. 3. ??Small calcaneal spur. Electronically signed by: Jhony Todd Jr., M.D. Narrative 01/01/2019 2:55 PM MEDICAL IMAGING SPECIALIST XR FOOT LEFT 3 OR MORE VIEWS [...] by: Jhony Todd Jr., M.D. Krys Ward MEAT CARRIER IMG XR PROCEDURES Final Resu lt documented in this encounter Visit Diagnoses Diagnosis Ganglion cyst of foot documented in this encounter Care Teams Environmental Field Professional Relationship Specialty Start Date End Date Enma Jones MD PCP - General 10/15/18 04/18/22 documented as of this encounter
--- OUTSIDE RECORDS SUMMARY | 2024-02-12 09:01 | XMS_ITS | Encounter Summary ---
Author Organization [facility] Medical Group Address [address] [place] [address] Care Team Providers Care Message And Delivery Service Pricer Name Role Phone Dylan Burrell NP Primary Care Provider + Reason for Referral * Diagnostic Lab (Routine) - Closed Specialty Diagnoses / Procedures Referred By Shmuel t Referred To Contact Lab Diagnoses Well woman exam Procedures Imaging Pap and HPV mRNA E6/E7 Veronica Chacon NP Phone: tel: fax: Referral ID Status Reason Start Date Expiration Date Visits Re quested Visits Authorized [id number] Closed 06/05/2018 12/15/2019 1 1 Reason for Visit * Reason Comments New Patient WWE Encounter Details Date Type Department Care Team (Late st Contact Info) Description 06/05/2018 2:00 PM CDT Office Visit [facility] [address] [place] [address] [address] [place] [id number] Veronica Chacon NP [address] [place] [address] [address] [place] [address] Well woman exam (Primary Dx); Screening for [...] on file 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 Orders: - Imaging [...] ORDERABLES Final Resul t Performing Organization Address [facility] de Phone Number [facility] (SAL) [address] [facility] [place] [address] * TSH (06/08/2018 4:27 PM CDT) Thyroid Stimulating Hormone 0.34 0.30 - 4.20 mcIUnit/mL [facility] (SAL) Blood specimen (specimen) 06/08/2018 4:27 PM CDT 06/08/2018 5:13 PM CDT Narrative [facility] (SAL) - 06/08/2018 5:53 PM CDT us Veronica Chacon NP LAB BLOOD ORDERABLES Final Resul t Performing Organization Address [facility] de Phone Number [facility] (SAL) [address] [facility] [place] [address] * T4, free (06/08/2018 4:27 PM CDT) Free T4 1.26 0.90 - 1.70 ng/dL [facility] (SAL) Blood specimen (specimen) 06/08/2018 4:27 PM CDT 06/08/2018 5:13 PM CDT Narrative [facility] (SAL) - 06/08/2018 5:53 PM CDT us Veronica Chacon NP LAB BLOOD ORDERABLES Final Resul t Performing Organization Address [facility] Co de Phone Number [facility] (SAL) 1 [facility] [place] [address] * Follicle stimulating hormone (06/08/2018 4:27 PM CDT) FSH 6.1 IUnits/L [facility] (SAL) Comment: Interpretive Data Male: Adults: ?1.5 - 12.4 IUnits/L Female: ?? Follicular: ?3.5 - 12.5 IUnits/L Ovulation: ? 4.7 - 21.5 IUnits/L Luteal: ?1.7 - 7.7 IUnits/L Postmenopausal: 25.8 - 134.8 IUnits/L Current interpretive data was last revised 2015. Testing performed by: [facility], [address] [place]., [address] Blood specimen (specimen) 06/08/2018 4:27 PM CDT 06/09/2018 9:21 AM CDT Narrative [facility] (SAL) - 06/09/2018 9:59 AM CDT us Veronica Chacon SECURITY ASSESSOR LAB BLOOD ORDERABLES Final Resul t [facility] (SAL) 1 [facility] [place] [address] * Testosterone, Total and Free, Serum (06/08/2018 4:27 PM CDT) Testosterone 19 8 - 60 ng/dL [facility] (SAL) Comment: ADDITIONAL INFORMATION Testing performed by Liquid Chromatography-Tandem Mass Spectrometry (LC-MS/MS). This test was developed and its performance characteristics determined by [facility] in a manner consistent with CLIA requirements. This test has not been cleared or approved by the U.S. Food and Drug Administration. Test Performed by: [facility] [address] [place] [address] Testosterone, free 0.23 0.06 - 0.98 ng/dL [facility] (SAL) Comment: ADDITIONAL INFORMATION Testing performed by [facility]. This test was developed and its performance characteristics determined by [facility] in a manner consistent with CLIA requirements. This test has not been cleared or approved by the U.S. Food and Drug Administration. Blood specimen (specimen) 06/08/2018 4:27 PM CDT 06/08/2018 5:43 PM CDT Narrative [facility] (SAL) - 06/11/2018 3:08 PM CDT us Veronica Chacon NP LAB BLOOD ORDERABLES Final Resul t [facility] (ERIE) 1 [facility] [place] [address] * POCT fecal occult blood (06/05/2018 3:26 [...] has been evaluated with computer assisted technology. Business Analytics Specialist [facility] Comment:DODGE, CT(ASCP) Review slat grader CANCELED [facility] Comment:Result canceled [...] was performed using the APTIMA HPV Assay ([employer] This assay detects E6/E7 viral messenger RNA (mRNA) from 14 high-risk HPV types (16,18,31,33,35,39,45,51,52,56,58,59,66,68). The analytical performance characteristics of this assay have been determined by [facility] The modifications have not been cleared or approved by the FDA. This assay has been validated pursuant to the CLIA regulations and is used for clinical purposes. Endocervical/vag inal 06/05/2018 3:25 PM CDT 06/08/2018 1:03 PM CDT Narrative Resulting Agency Comment Performing Organization Information: ?Site ID: [place] ?Name: [facility] ?Address: [address] [place] [address] ?Director: Av Schreiber D.O., MPH ?Site ID: ?Name: [facility] ?Address: [address] [place] [address] ?Director: Ben Raphael us Veronica Chacon SECURITY ASSESSOR LAB PATHOLOGY ORDERABLES Final R esult [facility] [place] [place] [facility] Crisostomo documented [...] documented as of this encounter Care Teams Message And Delivery Service Pricer Relationship Specialty Start Date End Date Dylan Burrell NP [address] [place] [address] [address], [place] [address] PCP - General Nurse Practitioner 04/09/17 06/07/18 documented as of this encounter
--- OUTSIDE RECORDS SUMMARY | 2024-02-12 09:01 | XMS_ITS | Encounter Summary ---
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
--- OUTSIDE RECORDS SUMMARY | 2024-02-12 09:01 | XMS_ITS | Encounter Summary ---
Author Organization [facility] Healthcare Address [address] [place] [address] Care Team Providers Care Stock Preparation Supervisor Name Role Phone No, Physician Primary Care Provider [phone] Reason for Referral * Diagnostic Imaging (Routine) - Closed Specialty Diagnoses / Procedures Referred By Contac t Referred To Contact Diagnoses Visit for screening mammogram Breast pain Procedures Screening Mammogram Bilateral W Veronica Pryor NP Phone: tel: fax: [address] [phone] Referral ID Status Reason Start Date Expiration Date Visits Re quested Visits Authorized [id number] Closed 06/18/2018 12/28/2019 1 1 Reason for Visit * Diagnostic Imaging (Routine) - Closed Specialty Diagnoses / Procedures Referred By Contac t Referred To Contact Diagnoses Visit for screening mammogram Breast pain Procedures Screening Mammogram Bilateral W Veronica Pryor NP Phone: tel: fax: [address] [phone] Referral ID Status Reason Start Date Expiration Date Visits Re quested Visits Authorized [id number] Closed 06/18/2018 12/28/2019 1 1 Encounter Details Date Type Department Care Team (Latest Contact Info) Description 06/19/2018 10:35 AM CDT - 06/19/2018 11:59 PM CDT Hospital Encounter [facility] [address] [place] [address] Eber Groves MD [address] [place] [address] [address] [place] [address] Veronica Chacon NP 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
--- OUTSIDE RECORDS SUMMARY | 2024-02-12 09:01 | XMS_ITS | Encounter Summary ---
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 Gender Identity Not on file Sexual Orientation [...] - 06/08/2018 5:53 PM CDT Veronica Chacon CIRCULATOR LAB BLOOD ORDERABLES Final Resul t [facility] (SAL) 1 [facility] Department of Laboratories [place], [place] [address] * T4, free (06/08/2018 4:27 PM CDT) Free T4 1.26 0.90 - 1.70 ng/dL [facility] (SAL) Blood specimen (specimen) 06/08/2018 4:27 PM CDT 06/08/2018 5:13 PM CDT Narrative [facility] (SAL) - 06/08/2018 5:53 PM CDT us Veronica Chacon NP LAB BLOOD ORDERABLES Final Resul t Performing Organization Address [facility] Co de Phone Number [facility] (MAZON) 1 [facility] [place] [address] * Follicle stimulating hormone (06/08/2018 4:27 PM CDT) FSH 6.1 IUnits/L [facility] (SAL) Comment: Interpretive Data Male: Adults: ?1.5 - 12.4 IUnits/L Female: ?? Follicular: ?3.5 - 12.5 IUnits/L Ovulation: ? 4.7 - 21.5 IUnits/L Luteal: ?1.7 - 7.7 IUnits/L Postmenopausal: 25.8 - 134.8 IUnits/L Current interpretive data was last revised 2015. Testing performed by: [facility], [address] [place]., [address] Blood specimen (specimen) 06/08/2018 4:27 PM CDT 06/09/2018 9:21 AM CDT Narrative [facility] (SAL) - 06/09/2018 9:59 AM CDT us Veronica Chacon NP LAB BLOOD ORDERABLES Final Resul t Performing Organization Address [facility] Co de Phone Number [facility] (SAL) 1 [facility] [place] [address] * Testosterone, Total and Free, Serum (06/08/2018 4:27 PM CDT) Testosterone 19 8 - 60 ng/dL [facility] (SAL) Comment: ADDITIONAL INFORMATION Testing performed by Liquid Chromatography-Tandem Mass Spectrometry (LC-MS/MS). This test was developed and its performance characteristics determined by [facility] in a manner consistent with CLIA requirements. This test has not been cleared or approved by the U.S. Food and Drug Administration. Test Performed by: [facility] - [facility] [address] [place] [address] Testosterone, free 0.23 0.06 - 0.98 ng/dL [facility] (SAL) Comment: ADDITIONAL INFORMATION Testing performed by [facility]. This test was developed and its performance characteristics determined by [facility] in a manner consistent with CLIA requirements. This test has not been cleared or approved by the U.S. Food and Drug Administration. Blood specimen (specimen) 06/08/2018 4:27 PM CDT 06/08/2018 5:43 PM CDT Narrative [facility] (SAL) - 06/11/2018 3:08 PM CDT Veronica Chacon NP LAB BLOOD ORDERABLES Final Resul t Performing Organization Address City/[facility]/ZIP Co de Phone Number [facility] (SAL) 1 [facility] [place] [address] * (ABNORMAL) Vitamin D 25 hydroxy (06/08/2018 4:27 PM CDT) Vitamin D 25-OH 22(L) 30 - 80 ng/mL [facility] (SAL) Blood specimen (specimen) 06/08/2018 4:27 PM CDT 06/08/2018 5:13 PM CDT Narrative [facility] (SAL) - 06/08/2018 5:53 PM CDT Veronica Chacon NP LAB BLOOD ORDERABLES Final Resul t [facility] (SAL) 1 [facility] [place] [address] documented in this encounter Visit Diagnoses Diagnosis Body mass index (BMI) of 37.0-37.9 in adult Other fatigue Vasomotor symptoms due to menopause Decreased libido Symptomatic menopausal or female climacteric states Well woman exam Routine general medical examination at a health care facility documented in this encounter Care Teams Second Cutter Relationship Specialty Start Date End Date No, Physician PCP - General 06/08/18 10/14/18 documented as of this encounter
--- OUTSIDE RECORDS SUMMARY | 2024-02-12 09:01 | XMS_ITS | Encounter Summary ---
Author Organization [facility] Medical Group Address [address] [place] [address] Care Team Providers Care Drywall Stripper Helper Name Role Phone No, Physician Primary Care Provider [phone] Reason for Referral * Diagnostic Imaging (Routine) - Closed Specialty Diagnoses / Procedures Referred By Shmuel t Referred To Contact Diagnoses Visit for screening mammogram Breast pain Procedures Screening Mammogram Bilateral W Veronica Pryor NP Phone: tel: fax: [address] [phone] Referral ID Status Reason Start Date Expiration Date Visits Re quested Visits Authorized [id number] Closed 06/18/2018 12/28/2019 1 1 Reason for Visit * Reason Onset Date Comments mammogram order 06/18/2018 Encounter Details Date Type Department Care Team (Late st Contact Info) Description 06/18/2018 Telephone [facility] [address] [place] [address] [address] [place] [address] Isabela Chacon RN mammogram order Social History Tobacco Use Types Packs/Day Years Used Date Smoking Tobacco: Every Day Cigarettes Smokeless Tobacco: Never Alcohol Use Standard Drinks/Week Comments No 0 (1 standard drink = 0.6 oz pur e alcohol) Comments No Sex and Gender Information Value Date Recorded Sex Assigned at Not on file 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 Order in [facility]. documented in this encounter Plan of Treatment [...] Mastodynia documented in this encounter Care Teams Drywall Stripper Helper Relationship Specialty Start Date End Date No, Physician PCP - General 06/08/18 10/14/18 documented as of this encounter
--- OUTSIDE RECORDS SUMMARY | 2024-02-12 09:01 | XMS_ITS | Encounter Summary ---
Author Organization [facility] Medical Group Address [address] [facility] [address] [place] [address] Care Team Providers Care Prescription Benefit Specialist Name Role Phone No, Physician Primary Care Provider [phone] Reason for Visit * Reason Onset Date Comments Lab Results 06/17/2018 Encounter Details Date Type Department Care Team (Late st Contact Info) Description 06/17/2018 Telephone [facility] [address] [facility] [address] [place] [address] Katie Ferguson, certified activities director Results Social History Tobacco Use Types Packs/Day Years Used Date Smoking Tobacco: Every Day Cigarettes Smokeless Tobacco: Never Alcohol Use Standard Drinks/Week Comments No 0 (1 standard drink = 0.6 oz pur e alcohol) Comments No Sex and Gender Information Value Date Recorded Sex Assigned at Not on file 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
--- OUTSIDE RECORDS SUMMARY | 2024-02-12 09:02 | XMS_ITS | Encounter Summary ---
Author Organization [facility] Medical Group Address [address] [facility] [address] [place] [address] Care Team Providers Care Php Website Developer Name Role Phone Dayan Khan NP Primary Care Provider [phone] Encounter Details Date Type Department Care Team (Late st Contact Info) Description 01/14/2017 Telephone [facility] Medical Group Orthopedics and Sports Medicine [address] [place] [phone] Omer Frederick MD [address] [place] [address] DR [address] [address] Social History Tobacco Use Types Packs/Day Years Used Date Smoking Tobacco: Never Smokeless Tobacco: Never Alcohol Use Standard Drinks/Week Comments No 0 (1 standard drink = 0.6 oz pur e alcohol) Comments Unknown Sex and Gender Information Value Date Recorded Sex Assigned at Not on file Legal Sex Female 1:16 PM BRICK KILN BURNER Gender Identity Not on file Sexual Orientation Not on file documented as of this encounter Miscellaneous Notes * Telephone Encounter - Triny Maciel MA - 01/14/2017 4:29 PM BRICK KILN BURNER Patient will do HEP for one month then pt may resume in February. [place] will tell pt to make appt with dr dickerson K KILN BURNER * Telephone Encounter - Jhony De La O - 01/14/2017 4:11 PM CST Patient called and Is about Out of PT Session Thru medicare and Her Therapist would like to know what you Want her to don when sessions run Out She can be Reached at [phone] [place] K KILN BURNER documented in this encounter Plan of Treatment Not on file documented as of this encounter Visit Diagnoses Not on filedocumented in this encounter Care Teams Php Website Developer Relationship Specialty Start Date End Date Dayan Khan, CARDIAC CATH LAB MANAGER [address] [place] [address] PCP - General 05/24/16 04/08/17 documented as of this encounter
--- OUTSIDE RECORDS SUMMARY | 2024-02-12 09:02 | XMS_ITS | Encounter Summary ---
Author Organization [facility] Medical Group Address [address] [facility] [address] [place] [address] Care Team Providers Care Electric Motor Repairing Supervisor Name Role Phone Dylan Burrell GATE GUARD Primary Care Provider + Encounter Details Date Type Department Care Team (Late st Contact Info) Description 04/10/2017 Telephone [facility] Medical Group Orthopedics and Sports Medicine [address] [facility] [address] [place] [address] Britt Ruiz PA [address] [facility] [address] [place], [place] [phone] Social History Tobacco Use Types Packs/Day Years Used Date Smoking Tobacco: Never Smokeless Tobacco: Never Alcohol Use Standard Drinks/Week Comments No 0 (1 standard drink = 0.6 oz pur e alcohol) Comments Unknown Sex and Gender Information Value Date Recorded Sex Assigned at Not on file Legal Sex Female 1:16 PM NEW PRODUCT TRAINER Gender Identity Not on file Sexual Orientation Not on file documented as of this encounter Miscellaneous Notes * Telephone Encounter - Ellen Murphy MA - 04/10/2017 3:14 PM CST Tried to call patient, no answer. Umberto gomez said the dr that opened the MRI didn't read it or document the report and he is on vacation this week so they assigned it to another DrBriana And they will get to it as soon as possible. PRODUCT TRAINER * Telephone Encounter - Britt Ruiz PA - 04/10/2017 2:34 PM NEW PRODUCT TRAINER Please call patient and inform her no MRI has been read yet and you are calling to check the status PRODUCT TRAINER * Telephone Encounter - Michelle Toure - 04/10/2017 1:56 PM CST Pt was calling to check on the status of her mri. States she was going to get a call back and she has still not heard anything. She can be reached at [phone] PRODUCT TRAINER documented in this encounter Plan of Treatment Not on file documented as of this encounter Visit Diagnoses Not on filedocumented in this encounter Care Teams Electric Motor Repairing Supervisor Relationship Specialty Start Date End Date Dylan Burrell NP [address] [place] [address] [address] [address] PCP - General Nurse Practitioner 04/09/17 06/07/18 documented as of this encounter
--- OUTSIDE RECORDS SUMMARY | 2024-02-12 09:02 | XMS_ITS | Encounter Summary ---
Author Organization [facility] Healthcare Address [address] [place] [address] Care Team Providers Care Control Panel Assembler Name Role Phone Dylan Burrell NP Primary Care Provider + Encounter Details Date Type Department Care Team (Latest Contact Info) Description 04/25/2017 1:36 PM AVIATION MAINTENANCE INSTRUCTOR - 04/25/2017 11:59 PM AVIATION MAINTENANCE INSTRUCTOR Hospital Encounter [facility] [address] [place] [address] Garry Garcia MD [address] [facility] [address] [address] Lumbago Discharge Disposition: Discharge to home or self care Social History Tobacco Use Types Packs/Day Years Used Date Smoking Tobacco: Never Smokeless Tobacco: Never Alcohol Use Standard Drinks/Week Comments No 0 (1 standard drink = 0.6 oz pur e alcohol) Comments Unknown Sex and Gender Information Value Date Recorded Sex Assigned at Not on file Legal Sex Female 1:16 PM AVIATION MAINTENANCE INSTRUCTOR Gender Identity Not on file Sexual [...] Read Routine (OP Routine) 04/25/2017 2:19 PM AVIATION MAINTENANCE INSTRUCTOR Lumbago documented in this encounter Results * MRI Lumbar Spine WO Contrast (04/25/2017 2:19 PM AVIATION MAINTENANCE INSTRUCTOR) Anatomical Region Laterality Modality Spine N/A Magnetic Resonan ce Impressions 04/25/2017 2:42 PM AVIATION MAINTENANCE INSTRUCTOR 1. ??SMALL CENTRAL DISC PROTRUSION AT L4-L5 CAUSING MINIMAL CANAL NARROWING. ??THIS IS UNCHANGED. 2. ??MILD FORAMINAL NARROWING AT L4-L5 SECONDARY TO FACET HYPERTROPHY. 3. ??NO EVIDENCE OF FRACTURE OR MALALIGNMENT OF THE LUMBAR COLUMN. Electronically signed by: Javier Rosado M.D. Narrative 04/25/2017 2:42 PM AVIATION MAINTENANCE INSTRUCTOR MRI LUMBAR SPINE WO CONTRAST HISTORY: Low [...] neural foramina appear normal. Procedure Note Javier Rosado MD - 04/25/2017 MRI LUMBAR SPINE WO [...] Lumbago documented in this encounter Care Teams Control Panel Assembler Relationship Specialty Start Date End Date Dylan Burrell NP [address] [place] [address] [address] [place] [address] PCP - General Nurse Practitioner 04/09/17 06/07/18 documented as of this encounter
--- OUTSIDE RECORDS SUMMARY | 2024-02-12 09:02 | XMS_ITS | Encounter Summary ---
Author Organization [facility] Medical Group Address [address] [address] [place] [address] Care Team Providers Care Wrap Checker Name Role Phone Dayan Khan LAST DIPPER Primary Care Provider [phone] Encounter Details Date Type Department Care Team (Late st Contact Info) Description 12/30/2016 Orders Only [facility] Medical [facility] Orthopedics and Sports Medicine [address] [place] [address] Anna Miner RMA Adhesive bursitis of right shoulder (Primary Dx) Social History Tobacco Use Types Packs/Day Years Used Date Smoking Tobacco: Never Smokeless Tobacco: Never Alcohol Use Standard Drinks/Week Comments No 0 (1 standard drink = 0.6 oz pur e alcohol) Comments Unknown Sex and Gender Information Value Date Recorded Sex Assigned at Not on file 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
--- OUTSIDE RECORDS SUMMARY | 2024-02-12 09:02 | XMS_ITS | Encounter Summary ---
Author Organization [facility] Medical Group Address [address] [facility] [place] [address] Care Team Providers Care Marketing Director Assisted Living Name Role Phone Dayan Khan MARKETING RESEARCH INTERN Primary Care Provider [phone] Encounter Details Date Type Department Care Team (Late st Contact Info) Description 12/30/[address] [facility] Group Orthopedics and Sports Medicine [address] [facility] [address] [place] [address] Anna Miner RMA Social History Tobacco Use Types Packs/Day Years Used Date Smoking Tobacco: Never Smokeless Tobacco: Never Alcohol Use Standard Drinks/Week Comments No 0 (1 standard drink = 0.6 oz pur e alcohol) Comments Unknown Sex and Gender Information Value Date Recorded Sex Assigned at Not on file Legal Sex Female 1:16 PM OR ASSISTANT Gender Identity Not on file Sexual Orientation Not on file documented as of this encounter Miscellaneous Notes * Telephone Encounter - Anna Miner MA - 12/30/2016 2:01 PM CST Called patient to notify her that PT order has been faxed. ASSISTANT documented in this encounter Plan of Treatment Not on file documented as of this encounter Visit Diagnoses Not on filedocumented in this encounter Care Teams Marketing Director Assisted Living Relationship Specialty Start Date [place] [address] PCP - General 05/24/16 04/08/17 documented as of this encounter
--- OUTSIDE RECORDS SUMMARY | 2024-02-12 09:02 | XMS_ITS | Encounter Summary ---
Author Organization [facility] Medical Group Address [address] [facility] [facility] [address] [place] [address] Care Team Providers Care Watch Repairer Apprentice Name Role Phone Dayan Khan NP Primary Care Provider [phone] Encounter Details Date Type Department Care Team (Latest Contact Info) Description 03/13/2017 6:40 AM DERRICK BOAT CAPTAIN - 03/13/2017 11:59 PM DERRICK BOAT CAPTAIN Hospital Encounter [facility] Orthopedics and Sports Medicine [address] [place] [phone] Discharge Disposition: Discharge to home or self care Social History Tobacco Use Types Packs/Day Years Used Date Smoking Tobacco: Never Smokeless Tobacco: Never Alcohol Use Standard Drinks/Week Comments No 0 (1 standard drink = 0.6 oz pur e alcohol) Comments Unknown Sex and Gender Information Value Date Recorded Sex Assigned at Not on file Legal Sex Female 1:16 PM DERRICK BOAT CAPTAIN Gender Identity Not on file Sexual Orientation [...] Read Routine (OP Routine) 03/13/2017 8:57 AM DERRICK BOAT CAPTAIN Right shoulder pain, unspecified chronicity documented in this encounter Results * XR Shoulder Right 2 or More Views (03/13/2017 8:57 AM DERRICK BOAT CAPTAIN) Anatomical Region Laterality Modality Upper Extremities, Shoulder Right Radi ographic Imaging Narrative 03/24/2017 11:54 AM DERRICK BOAT CAPTAIN Interpretation of x-rays: ??Four views of the [...] on filedocumented in this encounter Care Teams Watch Repairer Apprentice Relationship Specialty Start Date End Date Dayan Khan, AIRCRAFT ENGINE MECHANIC SUPERVISOR [address] [place] [address] PCP - General 05/24/16 04/08/17 documented as of this encounter
--- OUTSIDE RECORDS SUMMARY | 2024-02-12 09:02 | XMS_ITS | Encounter Summary ---
Author Organization [facility] Healthcare Address [address] [place] [address] Care Team Providers Care Poultry Field Service Technician Name Role Phone Dayan Khan NP Primary Care Provider Encounter Details Date Type Department Care Team (Latest Contact Info) Description 02/03/2017 6:55 PM EQUIPMENT PROCESSER STORAGE - 02/03/2017 11:59 PM EQUIPMENT PROCESSER STORAGE Hospital Encounter [address] [address] Domenica Foy, GRACE [address] [place] [address] Lumbar radiculopathy Discharge Disposition: Discharge to home or self care Social History Tobacco Use Types Packs/Day Years Used Date Smoking Tobacco: Never Smokeless Tobacco: Never Alcohol Use Standard Drinks/Week Comments No 0 (1 standard drink = 0.6 oz pur e alcohol) Comments Unknown Sex and Gender Information Value Date Recorded Sex Assigned at Not on file Legal Sex Female 1:16 PM EQUIPMENT PROCESSER STORAGE Gender Identity Not on file Sexual Orientation [...] Read Routine (OP Routine) 02/03/2017 7:20 PM EQUIPMENT PROCESSER STORAGE Lumbar radiculopathy documented in this encounter Results * MRI Lumbar Spine WO Contrast (02/03/2017 7:20 PM EQUIPMENT PROCESSER STORAGE) Anatomical Region Laterality Modality Spine N/A Magnetic Resonan ce Impressions 02/03/2017 9:10 PM EQUIPMENT PROCESSER STORAGE 1. ??L4-L5 annular tear again noted. 2. ??No central canal or neuroforaminal narrowing noted. Electronically signed by: Moise Kline M.D. Narrative 02/03/2017 9:10 PM EQUIPMENT PROCESSER STORAGE MRI LUMBAR SPINE WO CONTRAST HISTORY: Radiculopathy, [...] signed by: Moise Kline M.D. Domenica Foy FITNESS AND WELLNESS INSTRUCTOR IMG MRI PROCEDURES Final Resul t documented in this encounter Visit Diagnoses Diagnosis Lumbar radiculopathy Thoracic or lumbosacral neuritis or radiculitis, unspecified documented in this encounter Care Teams Poultry Field Service Technician Relationship Specialty Start Date End Date Dayan Khan FITNESS AND WELLNESS [place] [address] PCP - General 05/24/16 04/08/17 documented as of this encounter
--- OUTSIDE RECORDS SUMMARY | 2024-02-12 09:02 | XMS_ITS | Encounter Summary ---
Author Organization [facility] Medical Group Address [address] [address] Care Team Providers Care Carpenter Apprentice Name Role Phone Dayan Khan NP Primary Care Provider [phone] Reason for Visit * Reason Comments Pain Encounter Details Date Type Department Care Team (Late st Contact Info) Description 03/13/2017 8:30 AM ADULT HIGH SCHOOL INSTRUCTOR Office Visit [facility] Orthopedics and Sports Medicine [address] [place] [phone] [place], [place] [address] [place] [address] [address] [place] [address] Right shoulder pain, unspecified chronicity (Primary Dx); [...] on file Legal Sex Female 1:16 PM ADULT HIGH SCHOOL INSTRUCTOR Gender Identity Not on file Sexual Orientation Not on file documented as of this encounter Last Filed Vital Signs Vital Sign Reading Time Taken Comments Blood Pressure 157/93 03/13/2017 8:49 AM ADULT HIGH SCHOOL INSTRUCTOR Pulse 83 03/13/2017 8:49 AM ADULT HIGH SCHOOL INSTRUCTOR Temperature - - Respiratory Rate - - Oxygen Saturation - - Inhaled Oxygen Concentration - - Weight 88.9 kg (196 lb) 03/13/2017 8:49 AM ADULT HIGH SCHOOL INSTRUCTOR Height 157.5 cm (5' 2 ) 03/13/2017 8:49 AM ADULT HIGH SCHOOL INSTRUCTOR Body Mass Index 35.85 03/13/2017 8:49 AM ADULT HIGH SCHOOL INSTRUCTOR documented in this encounter Progress Notes * [place] - 03/13/2017 8:30 AM CST Images from the original note were not included. Subjective Patient ID: Oumou Middleton is a 41 y.o. female. Chief Complaint: Chief Complaint Patient presents with ??? Right Upper Arm - Pain Mrs. Middleton is a very pleasant 41-year-old nager-tniw-jabdltty lady who has been receiving physicaltherapy at [...] Omer Frederick MD at 03/24/2017 10:16 PM ADULT HIGH SCHOOL INSTRUCTOR T HIGH SCHOOL INSTRUCTOR T HIGH SCHOOL INSTRUCTOR documented in this encounter Plan of Treatment Not on file documented as of this encounter Procedures Procedure Name Priority Date/Time Associated Diagnosis Comments XR SHOULDER RIGHT 2 OR MORE VIEWS Schedule Routine, Read Routine (OP Routine) 03/13/2017 8:57 AM ADULT HIGH SCHOOL INSTRUCTOR Right shoulder pain, unspecified chronicity documented in this encounter Results * XR Shoulder Right 2 or More Views (03/13/2017 8:57 AM ADULT HIGH SCHOOL INSTRUCTOR) Anatomical Region Laterality Modality Upper Extremities, Shoulder Right Radi ographic Imaging Narrative 03/24/2017 11:54 AM ADULT HIGH SCHOOL INSTRUCTOR Interpretation of x-rays: ??Four views of the [...] right documented in this encounter Care Teams Carpenter Apprentice Relationship Specialty Start Date End Date Dayan Khan NP [address] [place] [address] PCP - General 05/24/16 04/08/17 documented as of this encounter
--- OUTSIDE RECORDS SUMMARY | 2024-02-12 09:02 | XMS_ITS | Encounter Summary ---
Author Organization [facility] Medical Group Address [address] [facility] [address] [place] [address] Care Team Providers Care Transition Assistant Name Role Phone Dayan Khan NP Primary Care Provider [phone] Encounter Details Date Type Department Care Team (Late st Contact Info) Description 03/11/2017 Telephone [facility] Medical [facility] Orthopedics and Sports Medicine [address] [facility] [address] [place] [phone] Omer Frederick MD [address] [facility] [address] [place] [address] Social History Tobacco Use Types Packs/Day Years Used Date Smoking Tobacco: Never Smokeless Tobacco: Never Alcohol Use Standard Drinks/Week Comments No 0 (1 standard drink = 0.6 oz pur e alcohol) Comments Unknown Sex and Gender Information Value Date Recorded Sex Assigned at Not on file Legal Sex Female 1:16 PM CBX OPERATOR Gender Identity Not on file Sexual Orientation Not on file documented as of this encounter Miscellaneous Notes * Telephone Encounter - Michelle Toure - 03/14/2017 1:22 PM CST Lm for pt to return call. Per alpesh pt can be seen earlier if still having problems OPERATOR * Telephone Encounter - Britt Ruiz PA - 03/11/2017 4:09 PM CBX OPERATOR Please have patient come in to be seen. Thank you OPERATOR * Telephone Encounter - Michelle Toure - 03/11/2017 3:44 PM CST Pt is calling and states that her right arm popped and is very painful. PT will not allow her to come until she is seen by someone . She can be reached at [phone] OPERATOR documented in this encounter Plan of Treatment Not on file documented as of this encounter Visit Diagnoses Not on filedocumented in this encounter Care Teams Transition Assistant Relationship Specialty Start Date End Date Dayan Khan, [place] [address] PCP - General 05/24/16 04/08/17 documented as of this encounter
--- OUTSIDE RECORDS SUMMARY | 2024-02-12 09:02 | XMS_ITS | Encounter Summary ---
Author Organization [facility] Healthcare Address [address] [place] [address] Care Team Providers Care Senior Structural Engineer Name Role Phone Dayan Khan NP Primary Care Provider [phone] Reason for Referral * MRI/CAT/PET Scan (Routine) - Closed Specialty Diagnoses / Procedures Referred By Contac t Referred To Contact Radiology Diagnoses Biceps muscle strain, right, initial encounter Procedures MRI Humerus Right WO Contrast [place], PA Phone: tel: fax: Referral ID Status Reason Start Date Expiration Date Visits Re quested Visits Authorized [id number] Closed 03/31/2017 09/27/2017 1 1 ND OPERATOR Reason for Visit * MRI/CAT/PET Scan (Routine) - Closed Specialty Diagnoses / Procedures Referred By Contac jeanne Referred To Contact Radiology Diagnoses Biceps muscle strain, right, initial encounter Procedures MRI Humerus Right WO Contrast [place], [place] Phone: tel: fax: Referral ID Status Reason Start Date Expiration Date Visits Re quested Visits Authorized [id number] Closed 03/31/2017 09/27/2017 1 1 Encounter Details Date Type Department Care Team (Latest Contact Info) Description 03/31/2017 1:35 PM SECOND OPERATOR - 03/31/2017 11:59 PM SECOND OPERATOR Hospital Encounter [facility] [address] [place] [address] [place], PA [address] [place] [address] [address] [place] [address] Omer Frederick MD [address] [place] [address] [address] [place] [address] Biceps muscle strain, right, initial encounter Discharge [...] on file Legal Sex Female 1:16 PM SECOND OPERATOR Gender Identity Not on file Sexual [...] Read Routine (OP Routine) 03/31/2017 1:58 PM SECOND OPERATOR Biceps muscle strain, right, initial encounter documented in this encounter Results * MRI Humerus Right WO Contrast (03/31/2017 1:58 PM SECOND OPERATOR) Anatomical Region Laterality Modality Upper Extremities Right Magnetic Reson ance Impressions 04/23/2017 1:47 PM SECOND OPERATOR No acute findings. Electronically signed by: Moise Kline M.D. Edited by: Supriya Tidwell 04/23/2017 1:47 PM SECOND OPERATOR EXAM: MRI HUMERUS RIGHT WO CONTRAST [...] encounter documented in this encounter Care Teams Senior Structural Engineer Relationship Specialty Start Date End Date Dayan Khan NP [address] [place] [address] PCP - General 05/24/16 04/08/17 documented as of this encounter
--- OUTSIDE RECORDS SUMMARY | 2024-02-12 09:02 | XMS_ITS | Encounter Summary ---
Author Organization [facility] Address [address] [address] [place] [address] Care Team Providers Care Retail Bakery Manager Name Role Phone Dayan Khan NP Primary Care Provider [phone] Reason for Visit * Reason Comments Pain Encounter Details Date Type Department Care Team (Late st Contact Info) Description 03/25/2017 9:00 AM NETWORK SYSTEMS CONSULTANT Office Visit [facility] Orthopedics and Sports Medicine [address] [place] [phone] [place], PA [address] [facility] [address] [place] [address] Biceps strain, right, subsequent encounter (Primary Dx) Social History Tobacco Use Types Packs/Day Years Used Date Smoking Tobacco: Never Smokeless Tobacco: Never Alcohol Use Standard Drinks/Week Comments No 0 (1 standard drink = 0.6 oz pur e alcohol) Comments Unknown Sex and Gender Information Value Date Recorded Sex Assigned at Not on file Legal Sex Female 1:16 PM NETWORK SYSTEMS CONSULTANT Gender Identity Not on file Sexual Orientation Not on file documented as of this encounter Last Filed Vital Signs Vital Sign Reading Time Taken Comments Blood Pressure 107/72 03/25/2017 9:12 AM NETWORK SYSTEMS CONSULTANT Pulse 92 03/25/2017 9:12 AM NETWORK SYSTEMS CONSULTANT Temperature - - Respiratory Rate - - Oxygen Saturation - - Inhaled Oxygen Concentration - - Weight 88.9 kg (196 lb) 03/25/2017 9:12 AM NETWORK SYSTEMS CONSULTANT Height 157.5 cm (5' 2 ) 03/25/2017 9:12 AM NETWORK SYSTEMS CONSULTANT Body Mass Index 35.85 03/25/2017 9:12 AM NETWORK SYSTEMS CONSULTANT documented in this encounter Progress Notes * [...] muscle. Several days prior to examination to [facility] had experienced a painful ???pop?? in [...] Omer Frederick MD at 03/27/2017 2:01 PM NETWORK SYSTEMS CONSULTANT ORK SYSTEMS CONSULTANT ORK SYSTEMS CONSULTANT documented in this encounter Plan of Treatment Not on file documented as of this encounter Visit Diagnoses Diagnosis Biceps strain, right, subsequent encounter- Primary documented in this encounter Care Teams Retail Bakery Manager Relationship Specialty Start Date End Date Dayan Khan NP [address] [place] [address] PCP - General 05/24/16 04/08/17 documented as of this encounter
--- OUTSIDE RECORDS SUMMARY | 2024-02-12 09:02 | XMS_ITS | Encounter Summary ---
Author Organization [facility] Healthcare Address [address] [place] [address] Care Team Providers Care Dining Room Captain Name Role Phone Dayan Khan NP Primary Care Provider [phone] Encounter Details Date Type Department Care Team (Latest Contact Info) Description 02/04/2017 9:08 AM PLAYERS ASSISTANT - 02/04/2017 11:59 PM PLAYERS ASSISTANT Hospital Encounter [facility] Neurological Disorders Testing [address] [place] [address] Domenica Foy, GRACE [address] [place] [address] Lumbar radiculopathy Discharge Disposition: Discharge to home or self care Social History Tobacco Use Types Packs/Day Years Used Date Smoking Tobacco: Never Smokeless Tobacco: Never Alcohol Use Standard Drinks/Week Comments No 0 (1 standard drink = 0.6 oz pur e alcohol) Comments Unknown Sex and Gender Information Value Date Recorded Sex Assigned at Not on file Legal Sex Female 1:16 PM PLAYERS ASSISTANT Gender Identity Not on file Sexual [...] any ongoing denervation. Clinical correlation is recommended. ERS ASSISTANT documented in this encounter Plan of Treatment Scheduled Orders Name Type Priority Associated Diagnoses Orde r Schedule EMG Neurology Routine Lumbar radiculopathy Once for 1 Occurrences starting 02/04/2017 until 02/04/2017 documented as of this encounter Visit Diagnoses Diagnosis Lumbar radiculopathy Thoracic or lumbosacral neuritis or radiculitis, unspecified documented in this encounter Care Teams Dining Room Captain Relationship Specialty Start Date End Date Dayan Khan NP [address] [place] [address] PCP - General 05/24/16 04/08/17 documented as of this encounter
--- OUTSIDE RECORDS SUMMARY | 2024-02-12 09:02 | XMS_ITS | Encounter Summary ---
Author Organization [facility] Address [address] [address] Care Team Providers Care Screw Machine Tender Name Role Phone Dylan Burrell NP Primary Care Provider + Reason for Visit * Reason Comments Pain Encounter Details Date Type Department Care Team (Late st Contact Info) Description 04/22/2017 1:45 PM MD DO RESIDENT URGENT CARE Office Visit [facility] Orthopedics and Sports Medicine [address] [place] [phone] [place], PA [address] [place] [address] [address] [place] [address] Biceps strain, right, subsequent encounter (Primary Dx); Shoulder impingement syndrome, right Social History Tobacco Use Types Packs/Day Years Used Date Smoking Tobacco: Never Smokeless Tobacco: Never Alcohol Use Standard Drinks/Week Comments No 0 (1 standard drink = 0.6 oz pur e alcohol) Comments Unknown Sex and Gender Information Value Date Recorded Sex Assigned at Not on file Legal Sex Female 1:16 PM MD DO RESIDENT URGENT CARE Gender Identity Not on file Sexual Orientation Not on file documented as of this encounter Last Filed Vital Signs Vital Sign Reading Time Taken Comments Blood Pressure 108/75 04/22/2017 2:04 PM MD DO RESIDENT URGENT CARE Pulse 85 04/22/2017 2:04 PM MD DO RESIDENT URGENT CARE Temperature - - Respiratory Rate - - Oxygen Saturation - - Inhaled Oxygen Concentration - - Weight 88.9 kg (196 lb) 04/22/2017 2:04 PM MD DO RESIDENT URGENT CARE Height 157.5 cm (5' 2 ) 04/22/2017 2:04 PM MD DO RESIDENT URGENT CARE Body Mass Index 35.85 04/22/2017 2:04 PM MD DO RESIDENT URGENT CARE documented in this encounter Progress Notes * [place] - 04/22/2017 1:45 PM CST Images from the original note were not included. FOLLOW UP VISIT Subjective CHIEF COMPLAINT She had concerns including Pain of the Right Upper Arm. HISTORY OF PRESENT ILLNESS Mrs. Middleton returns to the office today to review the results of her right arm MRI which was done at [facility] on 03/31/2017 for clinical examination suggesting a tear in the medial head of the biceps. Mrs. iMddleton has experienced pain in the right arm [...] Omer Frederick MD at 04/30/2017 11:03 PM MD DO RESIDENT URGENT CARE DO RESIDENT URGENT CARE DO RESIDENT URGENT CARE documented in this encounter Plan of Treatment Not on file documented as of this encounter Visit Diagnoses Diagnosis Biceps strain, right, subsequent encounter- Primary Shoulder impingement syndrome, right documented in this encounter Care Teams Screw Machine Tender Relationship Specialty Start Date End Date Dylan Burrell NP [address] [facility] [address] [place] [address] PCP - General Nurse Practitioner 04/09/17 06/07/18 documented as of this encounter
--- OUTSIDE RECORDS SUMMARY | 2024-02-12 09:02 | XMS_ITS | Encounter Summary ---
Author Organization [facility] Healthcare Address [address] [place] [address] Care Team Providers Care Commercial Mortgage Broker Name Role Phone Dylan Burrell AIR PUMPER Primary Care Provider + Reason for Visit * Reason Comments Eye Pain Encounter Details Date Type Department Care Team (Late st Contact Info) Description 07/27/2017 6:23 PM CDT - 07/27/2017 7:52 PM CDT Emergency [facility] Emergency Department [address] [place] [address] Cabrera Carrera, DO [address] [place] [address] Acute bacterial conjunctivitis of left eye (Primary [...] file Legal Sex Female 1:16 PM DRUM SPRAYER Gender Identity Not on file Sexual Orientation [...] through Care Everywhere. * Conjunctivitis (AfterCare(R) Instructions(ER/ED)) (Nepali) documented in this encounter Medications at Time [...] ED Course as of Jul 27 1945 [place] Jul 27, 20171933 Tetracaine 0.5% ophthalmic drops placed in left eye . Eye then stained with Fluorescein strip.Eye examined under Wood's lamp. No foreign bodies, corneal abrasions, or corneal lesions noted.The procedure performed without complications. The patient tolerated procedure well. [GV] ED Course User Index [GV] China Carmen NP [facility] Acute bacterial conjunctivitis of left eye China [...] 07/27/2017 documented in this encounter Care Teams Commercial Mortgage Broker Relationship Specialty Start Date End Date Dylan Burrell NP [address] [place] [address] [address] [place] [address] PCP - General Nurse Practitioner 04/09/17 06/07/18 documented as of this encounter
--- OUTSIDE RECORDS SUMMARY | 2024-02-12 09:02 | XMS_ITS | Encounter Summary ---
Author Organization [facility] Medical Group Address [address] [facility] [address] [place] [address] Care Team Providers Care User Support Analyst Supervisor Name Role Phone Dylan Burrell NP Primary Care Provider + Reason for Visit * Reason Comments Pain Encounter Details Date Type Department Care Team (Late st Contact Info) Description 04/09/2017 3:30 PM APPAREL EMBROIDERY DIGITIZER Office Visit [facility] Medical [facility] Orthopedics and Sports Medicine 4 [facility] [address] [place] [id number] Britt Ruiz PA [address] [facility] [facility] [address] [place] [address] Biceps strain, right, subsequent encounter (Primary Dx) Social History Tobacco Use Types Packs/Day Years Used Date Smoking Tobacco: Never Smokeless Tobacco: Never Alcohol Use Standard Drinks/Week Comments No 0 (1 standard drink = 0.6 oz pur e alcohol) Comments Unknown Sex and Gender Information Value Date Recorded Sex Assigned at Not on file Legal Sex Female 1:16 PM APPAREL EMBROIDERY DIGITIZER Gender Identity Not on file Sexual Orientation Not on file documented as of this encounter Last Filed Vital Signs Vital Sign Reading Time Taken Comments Blood Pressure 120/79 04/09/2017 3:51 PM APPAREL EMBROIDERY DIGITIZER Pulse 88 04/09/2017 3:51 PM APPAREL EMBROIDERY DIGITIZER Temperature - - Respiratory Rate - - Oxygen Saturation - - Inhaled Oxygen Concentration - - Weight 88.9 kg (196 lb) 04/09/2017 3:51 PM APPAREL EMBROIDERY DIGITIZER Height 157.5 cm (5' 2 ) 04/09/2017 3:51 PM APPAREL EMBROIDERY DIGITIZER Body Mass Index 35.85 04/09/2017 3:51 PM APPAREL EMBROIDERY DIGITIZER documented in this encounter Progress Notes * [...] images with patient. MRI report unavailable from [place] at time of appointment. MRI reviewed with [...] Omer Frederick MD at 04/10/2017 8:09 AM APPAREL EMBROIDERY DIGITIZER REL EMBROIDERY DIGITIZER REL EMBROIDERY DIGITIZER documented in this encounter Plan of Treatment [...] 06/05/2018 added in this encounter Care Teams User Support Analyst Supervisor Relationship Specialty Start Date End Date Dylan Burrell NP [address] [place] [address] [address] [place] [address] PCP - General Nurse Practitioner 04/09/17 06/07/18 documented as of this encounter
--- OUTSIDE RECORDS SUMMARY | 2024-02-12 09:02 | XMS_ITS | Encounter Summary ---
Author Organization [facility] Medical Group Address [address] [facility] [address] [place] [address] Care Team Providers Care Manager Mortgage Name Role Phone Dayan Khan NP Primary Care Provider [phone] Reason for Referral * MRI/CAT/PET Scan (Routine) - Closed Specialty Diagnoses / Procedures Referred By Shmuel angel Referred To Contact Radiology Diagnoses Biceps muscle strain, right, initial encounter Procedures MRI Humerus Right WO Contrast [facility], [place] Phone: tel: fax: Referral ID Status Reason Start Date Expiration Date Visits Re quested Visits Authorized [id number] Closed 03/31/2017 09/27/2017 1 1 CIATE MARKETING MANAGER Encounter Details Date Type Department Care Team (Late st Contact Info) Description 03/31/2017 Orders Only [facility] Medical [facility] Orthopedics and Sports Medicine [address] [place] [address] [address] [address] Anna Miner RMA Biceps muscle [...] on file Legal Sex Female 1:16 PM ASSOCIATE MARKETING MANAGER Gender Identity Not on file Sexual Orientation Not on file documented as of this encounter Plan of Treatment Not on file documented as of this encounter Results * MRI Humerus Right WO Contrast (03/31/2017 1:58 PM ASSOCIATE MARKETING MANAGER) Anatomical Region Laterality Modality Upper Extremities Right Magnetic Reson ance Impressions 04/23/2017 1:47 PM ASSOCIATE MARKETING MANAGER No acute findings. Electronically signed by: Moise Kline M.D. Edited by: Supriya Rees Narrative 04/23/2017 1:47 PM ASSOCIATE MARKETING MANAGER EXAM: MRI HUMERUS RIGHT WO CONTRAST HISTORY: [...] Primary documented in this encounter Care Teams Manager Mortgage Relationship Specialty Start Date End Date Dayan [place] [address] PCP - General 05/24/16 04/08/17 documented as of this encounter
--- OUTSIDE RECORDS SUMMARY | 2024-02-12 09:02 | XMS_ITS | Encounter Summary ---
Author Organization [facility] Medical Group Address [address] [facility] [address] [place] [address] Care Team Providers Care Aerial Tram Operator Name Role Phone Dylan Burrell APPLIANCE PAINTER AND REFINISHER Primary Care Provider + Encounter Details Date Type Department Care Team (Late st Contact Info) Description 04/11/2017 Telephone [facility] Medical [facility] Orthopedics and Sports Medicine 4 [facility] [address] [place] [address] Omer Frederick MD [address] [place] [address] [address] [facility] [address] [place] [address] Social History Tobacco Use Types Packs/Day Years Used Date Smoking Tobacco: Never Smokeless Tobacco: Never Alcohol Use Standard Drinks/Week Comments No 0 (1 standard drink = 0.6 oz pur e alcohol) Comments Unknown Sex and Gender Information Value Date Recorded Sex Assigned at Not on file Legal Sex Female 1:16 PM IMPLEMENTATION COORDINATOR Gender Identity Not on file Sexual Orientation Not on file documented as of this encounter Miscellaneous Notes * Telephone Encounter - Britt Ruiz PA - 04/11/2017 4:59 PM IMPLEMENTATION COORDINATOR LM for patient with details of situation. EMENTATION COORDINATOR * Telephone Encounter - Alma Casillas - 04/11/2017 3:57 PM CST Pt is calling because she was told she would hear back about her MRI at [facility], but has not heard back. She is having a lot of pain and is worried about it. She is wanting a call at [phone]. EMENTATION COORDINATOR documented in this encounter Plan of Treatment Not on file documented as of this encounter Visit Diagnoses Not on filedocumented in this encounter Care Teams Aerial Tram Operator Relationship Specialty Start Date End Date Dylan Burrell NP [address] [place] [address] [address] [place] [address] PCP - General Nurse Practitioner 04/09/17 06/07/18 documented as of this encounter
--- OUTSIDE RECORDS SUMMARY | 2024-02-12 09:02 | XMS_ITS | Encounter Summary ---
Author Organization [facility] Medical Group Address [address] [address] Care Team Providers Care Senior Environmental Scientist Name Role Phone Dylan Burrell NP Primary Care Provider + Reason for Visit * Reason Comments Pain Encounter Details Date Type Department Care Team (Late st Contact Info) Description 05/09/2017 9:15 AM CDT Office Visit [facility] Medical Group Orthopedics and Sports Medicine [address] [place] [phone] Omer Frederick MD [address] [place] [address] [address] [address] Adhesive capsulitis of right shoulder (Primary Dx) Social History Tobacco Use Types Packs/Day Years Used Date Smoking Tobacco: Never Smokeless Tobacco: Never Alcohol Use Standard Drinks/Week Comments No 0 (1 standard drink = 0.6 oz pur e alcohol) Comments Unknown Sex and Gender Information Value Date Recorded Sex Assigned at Not on file Legal Sex Female 1:16 PM REFINERY PIPELINE OPERATOR Gender Identity Not on file Sexual [...] every morning I recommend her seeing a application engineer immediately and a dietitian she understands when [...] Primary documented in this encounter Care Teams Senior Environmental Scientist Relationship Specialty Start Date End Date Dylan Burrell NP [address] [place] [address] [place] [address] PCP - General Nurse Practitioner 04/09/17 06/07/18 documented as of this encounter
--- OUTSIDE RECORDS SUMMARY | 2024-02-12 09:02 | XMS_ITS | Encounter Summary ---
Author Organization [facility] Medical Group Address [address] [facility] [address] [place] [address] Care Team Providers Care Footwear Factory Worker Name Role Phone Dylan Burrell NP Primary Care Provider + Encounter Details Date Type Department Care Team (Late st Contact Info) Description 04/23/2017 Telephone [facility] Medical Group Orthopedics and Sports Medicine [address] [place] [phone] Omer Frederick MD [address] [place] [address] [address] [address] Social History Tobacco Use Types Packs/Day Years Used Date Smoking Tobacco: Never Smokeless Tobacco: Never Alcohol Use Standard Drinks/Week Comments No 0 (1 standard drink = 0.6 oz pur e alcohol) Comments Unknown Sex and Gender Information Value Date Recorded Sex Assigned at Not on file Legal Sex Female 1:16 PM WINDOW TREATMENT INSTALLER Gender Identity Not on file Sexual Orientation Not on file documented as of this encounter Miscellaneous Notes * Telephone Encounter - Eve Schreiber - 04/23/2017 2:47 PM CST Pt is requesting her MRI results. She states she was waiting for it to be read by a radiologist. Itlooks like it has been read, please advise. OW TREATMENT INSTALLER documented in this encounter Plan of Treatment Not on file documented as of this encounter Visit Diagnoses Not on filedocumented in this encounter Care Teams Footwear Factory Worker Relationship Specialty Start Date End Date Dylan Burrell NP [address] [facility] [address], [place] [address] PCP - General Nurse Practitioner 04/09/17 06/07/18 documented as of this encounter
--- OUTSIDE RECORDS SUMMARY | 2024-02-12 09:03 | XMS_ITS | Encounter Summary ---
Author Organization [facility] Medical Group Address [address] [facility] [address] [place] [address] Care Team Providers Care Sack Cleaner Name Role Phone Dayan Khan NP Primary Care Provider [phone] Reason for Referral * Physical Therapy (Routine) - Closed Specialty Diagnoses / Procedures Referred By Shmuel angel Referred To Contact Physical Therapy Diagnoses Adhesive capsulitis of right shoulder Omer Frederick MD Phone: tel: fax: [facility] [address] [place] [address] Phone: tel: fax: Referral ID Status Reason Start Date Expiration Date V isits Requested Visits Authorized [id number] Closed Specialty Services Required 09/11/2016 03/10/2017 12 12 Question Answer PTRFR PT Evaluate and Treat Type: PT Evaluate and Treat Therapy options discussed with patient? Yes Location provided for therapy services is: Patient requested/Patient preferred Reason for Visit * Reason Comments Pain Encounter Details Date Type Department Care Team (Late st Contact Info) Description 09/11/2016 11:30 AM CDT Office Visit [facility] Orthopedics and Sports Medicine [address] [place] [phone] Omer Frederick MD [address] [place] [address] [address] [address] Adhesive capsulitis of right shoulder (Primary Dx) Social History Tobacco Use Types Packs/Day Years Used Date Smoking Tobacco: Never Smokeless Tobacco: Never Alcohol Use Standard Drinks/Week Comments No 0 (1 standard drink = 0.6 oz pur e alcohol) Comments Unknown Sex and Gender Information Value Date Recorded Sex Assigned at Not on file Legal Sex Female 1:16 PM TECHNICAL DELIVERY MANAGER Gender Identity Not on file Sexual [...] 09/11/2016 documented in this encounter Care Teams Sack Cleaner Relationship Specialty Start Date End Date Dayan Khan, FACTORY MAINTENANCE MANAGER [address] [place] [address] PCP - General 05/24/16 04/08/17 documented as of this encounter
--- OUTSIDE RECORDS SUMMARY | 2024-02-12 09:03 | XMS_ITS | Encounter Summary ---
Author Organization [facility] Healthcare Address [address] [place] [address] Care Team Providers Care Bureau Director Name Role Phone Dayan Khan NP Primary Care Provider [phone] Encounter Details Date Type Department Care Team (Late st Contact Info) Description 08/15/2016 9:42 AM CDT - 08/15/2016 11:59 PM CDT Hospital Encounter [facility] Antoine Spencer MD [address] [place] [address] Domenica Foy NP [address] [place] [address] Discharge Disposition: Discharge to home or self care Social History Tobacco Use Types Packs/Day Years Used Date Smoking Tobacco: Never Alcohol Use Standard Drinks/Week Comments No 0 (1 standard drink = 0.6 oz pur e alcohol) Comments Unknown Sex and Gender Information Value Date Recorded Sex Assigned at Not on file Legal Sex Female 1:16 PM KNITTING INSPECTOR Gender Identity Not on file Sexual [...] PM CDT MR Lumbar Spine WO ??Acc#: ??[id number] DATE OF EXAM: ??Aug 15 2016 ?? [...] Coppola M.D ? Interpreting Physician: ??ANA LAURA COPOPLA M.D. ??Read on: ??Aug 15 2016 11:59A Transcribed by: ??PSC ??On: Aug 15 2016 11:57A Approved Electronically by: ??ANA LAURA COPPOLA M.D. ??on: ??Aug 15 2016 11:57A Ordering DR: DOMENICA FOY Attending DR: DOMENICA FOY Attending: ??DOMENICA FOY Requesting: ??DOMENICA FOY Requesting Fax: ??[phone] Attending Fax: ??[phone] Attending ID: ??[id number] Requesting ID: ??[id number] Report To 1 ID: ??[id number] Report To 1 Name: ??DOMENICA FOY Report To 1 FAX: ??[phone] NextGen Order #: ?? Procedure Note Miscellaneous, Not In File / Provider, MD Eloisa - 08/15/2016 MR Lumbar Spine WO Acc#: [id number] DATE OF EXAM: Aug 15 2016 MR [...] on: Aug 15 2016 11:59A Transcribed by: [facility] On: Aug 15 2016 11:57A Approved Electronically by: ANA LAURA COPPOLA M.D. on: Aug 15 2016 11:57A Ordering DR: DOMENICA FOY Attending DR: DOMENICA FOY Attending: DOMENICA FOY Requesting: DOMENICA FOY Requesting Attending Attending ID: [id number] Requesting ID: [id number] Report To 1 ID: [id number] Report To 1 Name: DOMENICA FOY Report To 1 FAX: [phone] NextGen Order #: us Not In File Miscellaneous IMG MRI PROCEDURES Fin al Result documented in this encounter Visit Diagnoses Not on filedocumented in this encounter Care Teams Bureau Director Relationship Specialty Start Date End Date Dayan [place] [address] PCP - General 05/24/16 04/08/17 documented as of this encounter
--- OUTSIDE RECORDS SUMMARY | 2024-02-12 09:03 | XMS_ITS | Encounter Summary ---
Author Organization [facility] Medical Group Address [address] [facility] [address] [place] [address] Care Team Providers Care Plant Operator Control Room Operator Name Role Phone Dayan Khan NP Primary Care Provider [phone] Reason for Visit * Reason Comments Pain Encounter Details Date Type Department Care Team (Late st Contact Info) Description 11/01/2016 8:45 AM CDT Office Visit [facility] Medical Group Orthopedics and Sports Medicine [address] [place] [phone] Omer Frederick MD [address] [place] [address] [address] [address] Adhesive capsulitis of right shoulder (Primary Dx) Social History Tobacco Use Types Packs/Day Years Used Date Smoking Tobacco: Never Smokeless Tobacco: Never Alcohol Use Standard Drinks/Week Comments No 0 (1 standard drink = 0.6 oz pur e alcohol) Comments Unknown Sex and Gender Information Value Date Recorded Sex Assigned at Not on file Legal Sex Female 1:16 PM RECREATIONAL THERAPY AIDE Gender Identity Not on file Sexual Orientation [...] 03/01/2022 added in this encounter Care Teams Plant Operator Control Room Operator Relationship Specialty Start Date End Date Dayan Khan NP [address] [place] [address] PCP - General 05/24/16 04/08/17 documented as of this encounter
--- OUTSIDE RECORDS SUMMARY | 2024-02-12 09:04 | XMS_ITS | Encounter Summary ---
Author Organization [facility] Healthcare Address [address] [place] [address] Care Team Providers Care Mail Agent Name Role Phone Dayan Khan NP Primary Care Provider [phone] Encounter Details Date Type Department Care Team (Late st Contact Info) Description 05/10/2016 8:56 AM CDT - 05/10/2016 11:59 PM CDT Hospital Encounter [facility] Armin Spencer MD [address] [place] [address] Discharge Disposition: Discharge to home or self care Social History Tobacco Use Types Packs/Day Years Used Date Smoking Tobacco: Never Alcohol Use Standard Drinks/Week Comments No 0 (1 standard drink = 0.6 oz pur e alcohol) Comments Unknown Sex and Gender Information Value Date Recorded Sex Assigned at Not on file Legal Sex Female 1:16 PM TACKER OFF Gender Identity Not on file Sexual Orientation [...] PM CDT MR Cervical Spine WO ??Acc#: ??[id number] DATE OF EXAM: ??May 10 2016 CLINICAL [...] SPENCER Requesting: ??DR ARMIN SPENCER Requesting Fax: ??[phone] Attending Fax: ??-- Attending ID: ??[id number] Requesting ID: ??[id number] Report To 1 ID: ??[id number] Report To 1 Name: ??ARMIN SPENCER Report To 1 FAX: ??-- NextGen Order #: ?? Procedure Note Miscellaneous, Notinfile / Provider, Eloisa, - 07/17/2016 MR Cervical Spine WO Acc#: [id number] DATE OF EXAM: May 10 2016 CLINICAL [...] SPENCER Requesting Attending Fax: -- Attending ID: [id number] Requesting ID: [id number] Report To 1 ID: [id number] Report To 1 Name: ARMIN SPENCER Report To 1 FAX: -- NextGen Order #: us Not In File Miscellaneous IMG MRI PROCEDURES Fin al Result documented in this encounter Visit Diagnoses Not on filedocumented in this encounter Care Teams Mail Agent Relationship Specialty Start Date End Date Dayan Khan, GRACE [address] [place] [address] PCP - General 05/10/16 05/23/16 documented as of this encounter
--- OUTSIDE RECORDS SUMMARY | 2024-02-12 09:04 | XMS_ITS | Encounter Summary ---
Author Organization [facility] Healthcare Address [address] [place] [address] Care Team Providers Care Release Specialist Name Role Phone Dayan Khan NP Primary Care Provider [phone] Encounter Details Date Type Department Care Team (Latest Contact Info) Description 07/15/2014 2:15 PM CDT Hospital Encounter [facility] Lorena Abraham PA [address] [place], [place] [address] Other specified abnormal findings of blood chemistry; Abdominal pain, left upper quadrant Social History Tobacco Use Types Packs/Day Years Used Date Smoking Tobacco: Never Alcohol Use Standard Drinks/Week Comments No 0 (1 standard drink = 0.6 oz pur e alcohol) Comments Unknown Sex and Gender Information Value Date Recorded Sex Assigned at Not on file Legal Sex Female 1:16 PM MAIL SORTING SUPERVISOR Gender Identity Not on file Sexual [...] Acuña M.D. JA:steven 06:36 PM 09:08 AM [facility] [E[facility]] Procedure Note Provider, MD Eloisa - [...] Acuña M.D. JA:steven 06:36 PM 09:08 AM [facility] [[facility]] Lorena SCOTT IMTerence CT PROCEDURES Final Result documented in this encounter Visit Diagnoses Diagnosis Other specified abnormal findings of blood chemistry Abdominal pain, left upper quadrant documented in this encounter Care Teams Release Specialist Relationship Specialty Start Date End Date Dayan Khan NP [address] [place] [address] PCP - General 03/05/11 12/27/15 documented as of this encounter
--- OUTSIDE RECORDS SUMMARY | 2024-02-12 09:04 | XMS_ITS | Encounter Summary ---
Author Organization [facility] Healthcare Address [address] [place] [address] Care Team Providers Care Science Tutor Name Role Phone Dayan Khan NP Primary Care Provider [phone] Encounter Details Date Type Department Care Team (Late st Contact Info) Description 01/26/2016 7:32 PM CRACKING STILL OPERATOR - 01/26/2016 11:59 PM CRACKING STILL OPERATOR Hospital Encounter [facility] Omer Frederick MD [address] [facility] [address] [place] [address] [place], PA [address] [facility] [place] [address] Impingement syndrome of right shoulder Social History Tobacco Use Types Packs/Day Years Used Date Smoking Tobacco: Never Alcohol Use Standard Drinks/Week Comments No 0 (1 standard drink = 0.6 oz pur e alcohol) Comments Unknown Sex and Gender Information Value Date Recorded Sex Assigned at Not on file Legal Sex Female 1:16 PM CRACKING STILL OPERATOR Gender Identity Not on file Sexual [...] JOINT WO CONTRAST Routine 01/26/2016 8:01 PM CRACKING STILL OPERATOR documented in this encounter Results * MRI Upper Extremity Joint WO Contrast (01/26/2016 8:01 PM CRACKING STILL OPERATOR) Anatomical Region Laterality Modality Upper Extremities N/A Magnetic Reson ance 01/26/2016 8:01 PM CRACKING STILL OPERATOR Narrative 01/29/2016 8:24 AM CRACKING STILL OPERATOR MR Shoulder WO R ??- RIGHT Acc#: ??[id number] DATE OF EXAM: ??Jan ??2015 CLINICAL HISTORY: [...] DONALD Requesting: ??JAC HA DONALD Requesting Fax: ??[phone] Attending Fax: ??[phone] Attending ID: ??[id number] Requesting ID: ??[id number] Report To 1 ID: ??[id number] Report To 1 Name: ??JAC HA DONALD Report To 1 FAX: ??[phone] NextGen Order #: Procedure Note Provider, MD Eloisa - 07/01/2016 MR Shoulder WO R - RIGHT Acc#: [id number] DATE OF EXAM: Jan 26 2016 CLINICAL [...] JAC HA DONALD Requesting Attending Attending ID: [id number] Requesting ID: [id number] Report To 1 ID: [id number] Report To 1 Name: JAC HA DONALD Report To 1 FAX: [phone] NextGen Order #: Historical Provider MD SERVIN MRI PROCEDURES Final Result documented in this encounter Visit Diagnoses Diagnosis Impingement syndrome of right shoulder documented in this encounter Care Teams Science Tutor Relationship Specialty Start Date End Date Dayan Khan NP [address] [place] [address] PCP - General 12/28/15 05/09/16 documented as of this encounter
--- OUTSIDE RECORDS SUMMARY | 2024-02-12 09:04 | XMS_ITS | Encounter Summary ---
Author Organization [facility] Healthcare Address [address] [place] [address] Care Team Providers Care Wheat Farmer Name Role Phone Dayan Khan NP Primary Care Provider [phone] Encounter Details Date Type Department Care Team (Late st Contact Info) Description 07/25/2014 1:05 PM CDT - 07/25/2014 11:59 PM CDT Hospital Encounter [facility], Mark Shin MD [address] [place] [address] Dayan Khan NP [address] [place] [address] Dietary counseling and surveillance; Type 2 or unspecified type diabetes mellitus Social History Tobacco Use Types Packs/Day Years Used Date Smoking Tobacco: Never Alcohol Use Standard Drinks/Week Comments No 0 (1 standard drink = 0.6 oz pur e alcohol) Comments Unknown Sex and Gender Information Value Date Recorded Sex Assigned at Not on file Legal Sex Female 1:16 PM BENEFITS ADVISOR Gender Identity Not on file Sexual [...] mellitus documented in this encounter Care Teams Wheat Farmer Relationship Specialty Start Date End Date Dayan Khan NP [address] [place] [address] PCP - General 03/05/11 12/27/15 documented as of this encounter
--- OUTSIDE RECORDS SUMMARY | 2024-02-12 09:04 | XMS_ITS | Encounter Summary ---
Author Organization [facility] Healthcare Address [address] [place] [address] Care Team Providers Care Bag Repairer Name Role Phone Dayan Khan NP Primary Care Provider [phone] Encounter Details Date Type Department Care Team (Late st Contact Info) Description 07/31/2016 9:06 AM CDT - 07/31/2016 11:59 PM CDT Hospital Encounter [facility] Antoine Spencer MD [address] [place] [address] Domenica Foy NP [address] [place] [address] Discharge Disposition: Discharge to home or self care Social History Tobacco Use Types Packs/Day Years Used Date Smoking Tobacco: Never Alcohol Use Standard Drinks/Week Comments No 0 (1 standard drink = 0.6 oz pur e alcohol) Comments Unknown Sex and Gender Information Value Date Recorded Sex Assigned at Not on file Legal Sex Female 1:16 PM INSTALLATION ENGINEER Gender Identity Not on file Sexual Orientation [...] Narrative 07/31/2016 3:25 PM CDT EMG ??Acc#: ??[id number] DATE OF EXAM: ??Govind ??2016 ?? CLINICAL [...] ??Read on: ??Jul ??2016 10:25A Transcribed by: ??[facility] ??On: Jul ??2016 ??2:53P Approved Electronically by: ??ELENA Garcia, DR PATEL ??on: ??Aug ??2016 ??9:23P Ordering DR: DOMENICA FOY Attending DR: DOMENICA FOY Attending: ??DOMENICA FOY Requesting: ??DOMENICA FOY Requesting Fax: ??[phone] Attending Fax: ??[phone] Attending ID: ??[id number] Requesting ID: ??[id number] Report To 1 ID: ??[id number] Report To 1 Name: ??DOMENICA FOY Report To 1 FAX: ??[phone] NextGen Order #: ?? Procedure Note Miscellaneous, Not In File - 08/29/2016 EMG Acc#: [id number] DATE OF EXAM: Jul 31 2016 CLINICAL [...] Requesting: DOMENICA FOY Requesting Attending Attending ID: [id number] Requesting ID: [id number] Report To 1 ID: [id number] Report To 1 Name: DOMENICA FOY Report To 1 FAX: [phone] NextGen Order #: us Domenica Foy APPLIANCE SERVICE REPRESENTATIVE NEUROLOGY ORDERABLES Final Res ult documented in this encounter Visit Diagnoses Not on filedocumented in this encounter Care Teams Bag Repairer Relationship Specialty Start Date End Date Dayan Khan, APPLIANCE SERVICE REPRESENTAT[place] [address] [place] [address] PCP - General 05/24/16 04/08/17 documented as of this encounter
--- OUTSIDE RECORDS SUMMARY | 2024-02-12 09:04 | XMS_ITS | Encounter Summary ---
Author Organization [facility] Healthcare Address [address] [place] [address] Care Team Providers Care Gaming Cashier Name Role Phone Dayan Khan NP Primary Care Provider [phone] Encounter Details Date Type Department Care Team (Latest Contact Info) Description 07/06/2014 9:46 AM CDT Hospital Encounter [facility] Lorena Abraham PA [address], [place] [address] Abnormal results of liver function studies; Abdominal pain, right upper quadrant Social History Tobacco Use Types Packs/Day Years Used Date Smoking Tobacco: Never Alcohol Use Standard Drinks/Week Comments No 0 (1 standard drink = 0.6 oz pur e alcohol) Comments Unknown Sex and Gender Information Value Date Recorded Sex Assigned at Not on file 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 Gender Identity Not on file Sexual Orientation [...] ANTIBODY, QUALITATIVE Routine 07/06/2014 10:46 AM CDT [id number] Routine 07/06/2014 1 0:46 AM CDT ART REFLEX TO QUANTITATIVE Routine 07/06/2014 10:46 AM CDT CERULOPLASMIN Routine 07/06/2014 10:46 AM CDT HEPATITIS PANEL, ACUTE Routine 5 10:46 AM CDT FERRITIN Routine 07/06/2014 10:46 AM CDT HEPATIC FUNCTION PANEL Routine 5 10:46 AM CDT documented in this encounter Results * Ceruloplasmin (07/06/2014 10:46 AM CDT) Ceruloplasmin 31 17 - 54 mg/dL 07/07/2014 11:04 AM CDT [facility] HISTORICAL RESULTS Comment: REFERENCE INTERVAL: Ceruloplasmin ?? Access complete set of age- and/or gender-specific ?? reference intervals for this test in the [facility] ?? Test Directory ([facility]). ?? Performed by [employer], ?? [address] [place] [address] ?? [email or web address], Anoop Yadav MD, Lab. Director ?? 07/06/2014 10:4 6 AM CDT 07/06/2014 11:05 AM CDT Lorena SCOTT LAB BLOOD ORDERABLES Fi nal Result Performing Organization Address [facility] Phone Number [facility] HISTORICAL RESULTS * Jrrsc-6-dwqbclsufri (07/06/2014 10:46 AM CDT) Pathologist [facility] Yaqyb-1-Ywjdhy ypsin 174 90 - 200 mg/dL 07/07/2014 11:04 AM CDT [facility] HISTORICAL RESULTS Comment: To convert to umol/L, multiply mg/dL by 0.185 ?? Performed by [employer], ?? [address] [place] [address] ?? [email or web address], Anoop Yadav MD, Lab. Director ?? 07/06/2014 10:4 6 AM CDT 07/06/2014 11:05 AM CDT us Lorena SCOTT LAB BLOOD ORDERABLES Fi nal Result Performing Organization Address [facility] Phone Number [facility] HISTORICAL RESULTS * Smooth muscle antibody, qualitative (07/06/2014 10:46 AM CDT) [facility] Smooth Muscle IgG Ab 11 0 - 19 Units 07/07/2014 12:29 PM CDT [facility] HISTORICAL RESULTS Comment: If F-Actin (Smooth Muscle) Antibody, IgG [...] than anti-smooth muscle antibodies. ?? Performed by [employer], ?? [address] [facility] [id number] ?? [email or web address], Anoop Yadav MD, Lab. Director ?? 07/06/2014 10:4 6 AM CDT 07/06/2014 11:05 AM CDT us Lorena Abraham PA LAB BLOOD ORDERABLES Fi nal Result [facility] HISTORICAL RESULTS * Mitochondrial M2 Ab,IgG (07/06/2014 10:46 AM CDT) Mitochondria M2 Ab 3.0 0.0 - 20.0 Units 07/07/2014 12:29 PM CDT [facility] HISTORICAL RESULTS Comment: INTERPRETIVE INFORMATION: Mitochondrial (M2) Antibody, IgG ?20.0 Units or less ......... Negative ?20.1 - 24.9 Units........... Equivocal ?25.0 Units or greater....... Positive ?? Performed by [employer], ?? [address] [facility] [place] [address] ?? [email or web address], Anoop Yadav MD, Lab. Director ?? 07/06/2014 10:4 6 AM CDT 07/06/2014 11:05 AM CDT Lorena SCOTT LAB BLOOD ORDERABLES Fi nal Result Performing Organization Address [facility] de Phone Number [facility] HISTORICAL RESULTS * ART reflex to quantitative (07/06/2014 10:46 AM CDT) ART Screen None Detected None Detected 07/08/2014 8:10 AM CDT [facility] HISTORICAL RESULTS Comment: No antibodies to Anti-Nuclear Antibodies (ART) [...] and speckled ART-IFA patterns. ?? Performed by [employer], ?? [address] [place] [address] ?? [email or web address], Anoop Yadav MD, Lab. Director ?? 07/06/2014 10:4 6 AM CDT 07/06/2014 11:05 AM CDT Lorena SCOTT LAB BLOOD ORDERABLES Fi nal Result Performing Organization Address [facility] de Phone Number [facility] HISTORICAL RESULTS * Hepatitis panel, acute (07/06/2014 10:46 AM CDT) Pathologist [facility] HepBsAg NONREACT NONREACTIVE 07/06/2014 11:54 AM CDT [facility] HISTORICAL RESULTS Comment: Siemens 3i SystemsaurXP using MARGARITA (chemiluminescent immunoassay) technology. NONREACTIVE: IgM antibodies to Hepatitis B Surface antigen not detected. REACTIVE: IgM antibodies to Hepatitis B Surface antigen detected. Reactive results will be confirmed by neutralization testing. HBsAb (immune status) NONREACT NONREACTIVE 07/06/2014 11:43 AM CDT [facility] HISTORICAL RESULTS Comment: Siemens CentaurXP using MARGARITA (chemiluminescent immunoassay) technology. NONREACTIVE: IgM antibodies to Hepatitis B Surface antibody not detected. REACTIVE: IgM antibodies to Hepatitis B Surface antibody detected. Hep B core IgM NONREACT NONREACTIVE 5 12:22 PM CDT [facility] HISTORICAL RESULTS Comment: Siemens CentaurXP using MARGARITA (chemiluminescent immunoassay) technology. NONREACTIVE: IgM antibodies to Hepatitis B Core antigen not detected. EQUIVOCAL: IgM antibodies to Hepatitis B Core antigen may or may not be present. Obtain a ??new specimen and retest. REACTIVE: IgM antibodies to Hepatitis B Core antigen detected. Hep A IgM NONREACT NONREACTIVE 07/06/2014 12:24 PM CDT [facility] HISTORICAL RESULTS Comment: Siemens CentaurXP using MARGARITA (chemiluminescent immunoassay) technology. NONREACTIVE: IgM antibodies to Hepatitis A not detected. This does not exclude possibility of exposure to Hepatitis A or early acute infection. EQUIVOCAL:IgM antibodies to Hepatitis A may or may not be present. Suggest recollection and retest. REACTIVE: Antibodies to Hepatitis A detected. Hep C Ab NONREACT NONREACTIVE 07/06/2014 12:22 PM T [facility] HISTORICAL RESULTS Comment: Siemens CentaurXP using MARGARITA [...] CDT Lorena SCOTT LAB MICROBIOLOGY - [facility] ORDERABLES Final Result [facility] HISTORICAL RESULTS * Ferritin (07/06/2014 10:46 AM CDT) Ferritin 261.5 12.0 - 263.0 ng/mL 07/06/2014 11:38 AM T [facility] HISTORICAL RESULTS Comment: Female: Premenopause ?13.0-150.0 ng/mL Female: Postmenopause ?? 12.0-263.0 ng/mL 07/06/2014 10:4 6 AM CDT 07/06/2014 11:05 AM CDT Lorena SCOTT LAB BLOOD ORDERABLES Fi nal Result [facility] HISTORICAL RESULTS * (ABNORMAL) Hepatic function panel (07/06/2014 10:46 AM CDT) [facility] Total Protein 7.7 6.4 - 8.3 g/dL 07/06/2014 11:30 AM T [facility] HISTORICAL RESULTS Albumin 4.3 3.5 - 5.2 g/dL Globulin [...] SCOTT LAB BLOOD ORDERABLES Fi nal Result [facility] HISTORICAL RESULTS documented in this encounter Visit Diagnoses Diagnosis Abnormal results of liver function studies Nonspecific abnormal results of liver function study Abdominal pain, right upper quadrant documented in this encounter Care Teams Gaming Cashier Relationship Specialty Start Date End Date Dayan Khan NP [address] [place] [address] PCP - General 03/05/11 12/27/15 documented as of this encounter
--- OUTSIDE RECORDS SUMMARY | 2024-02-12 09:04 | XMS_ITS | Encounter Summary ---
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 eGFR: >70 ml/min/1.73sq.m if -[place]er. AVE GFR for 40-49 yr. age group: ??99 ml/min/1.73sq.m Calculated using MDRD Equation BUN/creat ratio 14 10 - 20 HIST ORICAL RESULTS A. gap 18(H) 8 - 16 mmol/L HISTORICAL RESULTS Osmo, calc 289 275 - 295 mOsm/kg HISTORICAL RESULTS Calcium 9.2 8.6 - 10.2 mg/dl HISTORICAL RESULTS Serum 05/06/2014 3:05 PM CDT Kendrick Hernandez MD LAB BLOOD ORDERABLES [facility] Performing Organization Address [facility] de Phone Number HISTORICAL RESULTS [...] Kendrick Hernandez MD LAB BLOOD ORDERABLES Final [facility] Performing Organization Address [facility] de Phone Number HISTORICAL RESULTS [...] ORDERABLES Final Res ult Performing Organization Address City/[facility] Co de Phone Number HISTORICAL RESULTS * (ABNORMAL) Blood glucose (05/06/2014 2:53 PM CDT) Glucose, bld 437(H) 70 - 199 mg/dl HISTORICAL RESULTS Blood specimen (specimen) 05/06/2014 2:53 PM CDT us Historical Provider LAB BLOOD ORDERABLES Candy l Result Performing Organization Address City/[facility] Co de Phone Number HISTORICAL RESULTS * (ABNORMAL) Blood glucose (05/06/2014 10:05 AM CDT) Glucose, bld 457(VH) 70 - 199 mg/dl HISTORICAL RESULTS Venous blood 05/06/2014 10:0 5 AM CDT Narrative HISTORICAL RESULTS - 05/06/2014 6:54 PM CDT CRITICAL WB GLUCOSE CALLED TO WILLIAN POWELL WITH READBACK 05/06/14 15:22 [id number] us Sophie Alonso MD LAB BLOOD ORDERABLES Final Result Performing Organization Address City/[facility] Co de Phone Number HISTORICAL RESULTS * Discharge Laboratory Cumulative Report (05/06/2014 12:00 AM CDT) 05/06/2014 Narrative HISTORICAL RESULTS - 05/07/2014 3:04 AM CDT Patient No: [id number] ? [facility] Patient Name: OUMOU MIDDLETON ?[facility] Age: 38 YRS ?: 1975 ?Sex:F ?[address] )[phone] ?? Adm Dt: 05/06/2014 ?[place], [place] ??[address] Created: 05/07/2014 ??0304 ?? Pt. Type: E [...] ?? CONTINUED ?Page: ?? 1 Patient No: [id number] ? [facility] Patient Name: DOUBET, OUMOU J ?[facility] Age: 38 YRS ?: 1975 ?Sex:F ?[address] )[id number] ?? Adm Dt: 05/06/2014 ?[place], [place] ??[address] Created: 05/07/2014 ??0304 ?? Pt. Type: E [...] POOL Location:ER Date/Time and Lab ID:05/06/14 16:58 [id number] [[id number]] ?? MOSM/K ? CALCULATED OSMO ?289 [...] ?? CONTINUED ?Page: ?? 2 Patient No: [id number] ? [facility] Patient Name: OUMOU MIDDLETON ?[facility] Age: 38 YRS ?: 1975 ?Sex:F ?[address] )[id number] ?? Adm Dt: 05/06/2014 ?[place], [place] ??[address] Created: 05/07/2014 ??0304 ?? Pt. Type: E ? Discharge Dt: 05/06/2014 ? Pathologists: Christine Madrid MD Admit Attend Dr: KENDRICK HERNANDEZ MD ? GENERAL CHEMISTRY ?Collection Date: ?05/06/14 ? 05/06/14 ?Collection Time: ?1505 ? 1453 ? Ref Range: ?? Units: ??[10-20] ? B/C RATIO ? 14 [0.60-1.10] ??MG/DL ?CREATININE ?0.54 Lf ?05/06/14 1505 eGFR: >70 ml/min/1.73sq.m if non -[place]er. eGFR: >70 ml/min/1.73sq.m if -[place]er. AVE GFR for 40-49 yr. age group: ??99 ml/min/1.73sq.m Calculated using MDRD Equation FOOTNOTE ADDED ON ?? 05/06/14 ?? AT 1659 BY 999 ?WHOLE BLOOD CHEMISTRIES ??[70-199] ?? MG/DL ?GLUCOSE WB CYRUS ? 457 Cf ?05/06/14 1505 CRITICAL WB GLUCOSE CALLED TO WILLIAN POWELL WITH READBACK 05/06/14 15:22 [id number] FOOTNOTE REVISED ON 05/06/14 ?? AT 2354 BY [id number] Footnotes and Symbols: L = Low, C = Critical, f = Footnote ?? END OF CHART ? Page: ?? 3 us Historical Provider LAB BLOOD ORDERABLES Candy mcwilliams Result Performing Organization Address City/State/[facility] Co de Phone Number HISTORICAL RESULTS documented in this encounter Visit Diagnoses Diagnosis Type 2 or unspecified type diabetes mellitus Tobacco use disorder Encounter for long-term (current) use of other medications documented in this encounter Care Teams Fishing Boat Mate Relationship Specialty Start Date End Date Dayan Khan, SPEED READING TEACHER [address] [place] [address] PCP - General 03/05/11 12/27/15 documented as of this encounter
--- OUTSIDE RECORDS SUMMARY | 2024-02-12 09:04 | XMS_ITS | Encounter Summary ---
Author Organization [facility] Healthcare Address [address] [place] [address] Care Team Providers Care Plug And Mold Finisher Name Role Phone Dayan Khan NP Primary Care Provider [phone] Encounter Details Date Type Department Care Team (Late st Contact Info) Description 12/28/2015 6:35 PM CDT - 12/28/2015 9:55 PM CDT Hospital Encounter [facility] Dylan Castrejon MD [address] [facility] [place] [address] Type 2 diabetes mellitus with hyperglycemia (CMS/HCC); Adverse effect of glucocorticoid or synthetic analogue; Other specified places as the place of occurrence of the external cause; Nicotine dependence, uncomplicated; Obesity; terminal make up 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 current use of insulin (CMS/HCC); [facility]FP current use of aspirin; terminal make up operator current use of oral hypoglycemic drug; Exposure to other specified factors, initial encounter Social History Tobacco Use Types Packs/Day Years Used Date Smoking Tobacco: Never Alcohol Use Standard Drinks/Week Comments No 0 (1 standard drink = 0.6 oz pur e alcohol) Comments Unknown Sex and Gender Information Value Date Recorded Sex Assigned at Not on file 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 Negative ? 0.00-0.06 ng/ml ? Indeterminate ?0.07-0.10 ng/ml ? Consistent with Myocardial Injury ?Greater than 0.10 ng/ml ?? Current interpretive data was last revised on 2014 Plasma 12/28/2015 7:57 PM CDT Historical Provider MD LAB BLOOD ORDERABLES Candy l Result Performing Organization Address [facility] de Phone Number CDR HISTORICAL RESULTS * Blood cell count (CBC) (12/28/2015 7:57 PM CDT) Pathologist [facility] WBC 9.1 3.8 - 9.8 K/cumm CDR [...] morphologic exam (12/28/2015 7:57 PM CDT) Pathologist [facility] Neutrophils 61.2 44.0 - 80.0 % CDR [...] specimen (specimen) 12/28/2015 7:57 PM CDT Result [facility] Provider LAB BLOOD ORDERABLES Candy l Result Performing Organization Address [facility] Phone Number CDR HISTORICAL RESULTS * Serum estimated glomerular filtration rate (12/28/2015 7:57 PM CDT) eGFR >60 ml/min/1.7 3 m2 CDR HISTORICAL RESULTS Comment: Interpretation of Estimated GFR (eGFR): Normal ?>/= 60 mL/min/1.73m2 Possible Chronic Kidney Disease ??15 - 59 mL/min/1.73m2 Possible Kidney Failure ?< 15 ??mL/min/1.73m2 If -Citizen Of The [place] multiply value by 1.16. ??Estimated glomerular filtration [...] children. Serum 12/28/2015 7:57 PM CDT Result [facility] Provider LAB BLOOD ORDERABLES Candy l Result Performing Organization Address [facility] Phone Number CDR HISTORICAL RESULTS * (ABNORMAL) Blood glucose, POC (12/28/2015 7:26 PM CDT) Glucose, POC, bld 370(C) 71 - 98 mg/dl CDR HISTORICAL RESULTS Blood specimen (specimen) 12/28/2015 7:26 PM CDT Result [facility] Provider LAB BLOOD ORDERABLES Candy l Result Performing Organization Address [facility] de Phone Number CDR HISTORICAL RESULTS * [...] HISTORICAL RESULTS Urine 12/28/2015 7:20 PM CDT [facility] Provider LAB BLOOD ORDERABLES Candy l Result CDR HISTORICAL RESULTS * DISCHARGE LABORATORY CUMULATIVE REPORT (12/28/2015) Narrative 12/28/2015 Ordered by an unspecified provider. [facility] Provider LAB BLOOD ORDERABLES Candy l Result * ELECTROCARDIOGRAPHY (ECG) (12/28/2015) Narrative 12/28/2015 Ordered by an unspecified provider. 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
--- OUTSIDE RECORDS SUMMARY | 2024-02-12 09:04 | XMS_ITS | Encounter Summary ---
Author Organization [facility] Healthcare Address [address] [place] [address] Care Team Providers Care Address Change Clerk Name Role Phone Dayan Khan NP Primary Care Provider [phone] Encounter Details Date Type Department Care Team (Late st Contact Info) Description 04/14/2014 10:05 AM TRIMMING CUTTER - 04/14/2014 10:42 AM TRIMMING CUTTER Hospital Encounter [facility] Melvin Nguyen Low back pain; Tobacco use disorder Social History Tobacco Use Types Packs/Day Years Used Date Smoking Tobacco: Never Alcohol Use Standard Drinks/Week Comments No 0 (1 standard drink = 0.6 oz pur e alcohol) Comments Unknown Sex and Gender Information Value Date Recorded Sex Assigned at Not on file Legal Sex Female 1:16 PM TRIMMING CUTTER Gender Identity Not on file Sexual Orientation [...] disorder documented in this encounter Care Teams Address Change Clerk Relationship Specialty Start Date End Date Dayan Khan NP [address] [place] [address] PCP - General 03/05/11 12/27/15 documented as of this encounter
--- OUTSIDE RECORDS SUMMARY | 2024-02-12 09:04 | XMS_ITS | Encounter Summary ---
Author Organization [facility] Healthcare Address [address] [place] [address] Care Team Providers Care Human Resources Manager Manufacturing Name Role Phone Dayan Khan NP Primary Care Provider [phone] Encounter Details Date Type Department Care Team (Late st Contact Info) Description 09/30/2013 7:04 PM CDT - 09/30/2013 11:59 PM CDT Hospital Encounter [facility] Marcie, Alpa Martinez MD [address] [place] [address] Encounter for routine gynecological examination; Vaginitis and vulvovaginitis Social History Tobacco Use Types Packs/Day Years Used Date Smoking Tobacco: Never Assessed Comments Unknown Sex and Gender Information Value Date Recorded Sex Assigned at Not on file Legal Sex Female 1:16 PM HAY SORTER Gender Identity Not on file Sexual Orientation [...] HISTORICAL RESULTS - 10/01/2013 4:51 PM CDT [facility] ?Patient Name: ?DOUBET, OUMOU J .. ?Med. Rec#: ?? [id number] ?Pt. Acct.#: ??[id number] ?Birthdate: ?? 1975 ?Age / Sex: ?? [...] HISTORICAL RESULTS - 10/01/2013 4:51 PM CDT [facility] ?Patient Name: ?OUMOU MIDDLETON .. ?Med. Rec#: ?? [id number] ?Pt. Acct.#: ??[id number] ?Birthdate: ?? 1975 ?Age / Sex: ?? [...] vulvovaginitis documented in this encounter Care Teams Human Resources Manager Manufacturing Relationship Specialty Start Date End Date Dayan Khan, MOTOR TEACHER [address] [place] [address] PCP - General 03/05/11 12/27/15 documented as of this encounter
--- OUTSIDE RECORDS SUMMARY | 2024-02-12 09:04 | XMS_ITS | Encounter Summary ---
Author Organization [facility] Healthcare Address [address] [place] [address] Care Team Providers Care Chief Operator Lock Tender Name Role Phone Dayan Khan NP Primary Care Provider [phone] Encounter Details Date Type Department Care Team (Late st Contact Info) Description 04/21/2012 8:58 AM SLUNK SKIN CURER - 04/21/2012 11:59 PM SLUNK SKIN CURER Hospital Encounter [facility]CON[facility] Cabrera Medina MD [address] [place] [id number] Social History Tobacco Use Types Packs/Day Years Used Date Smoking Tobacco: Never Assessed Comments Unknown Sex and Gender Information Value Date Recorded Sex Assigned at Not on file Legal Sex Female 1:16 PM SLUNK SKIN CURER Gender Identity Not on file Sexual Orientation Not on file documented as of this encounter Plan of Treatment Not on file documented as of this encounter Visit Diagnoses Not on filedocumented in this encounter Care Teams Chief Operator Lock Tender Relationship Specialty Start Date End Date Dayan Khan [place] [address] PCP - General 03/05/11 12/27/15 documented as of this encounter
--- OUTSIDE RECORDS SUMMARY | 2024-02-12 09:05 | XMS_ITS | Encounter Summary ---
Author Organization [facility] Healthcare Address [address] [place] [address] Care Team Providers Care Hothouse Worker Name Role Phone Dayan Khan RECYCLER FORKLIFT DRIVER TRUCK DRIVER Primary Care Provider [phone] Encounter Details Date Type Department Care Team (Late st Contact Info) Description 06/03/2011 8:30 PM CDT - 06/03/2011 11:59 PM CDT Hospital Encounter [facility]CON[facility] Av Olivares Jr., MD [address] [place] [id number] Social History Tobacco Use Types Packs/Day Years Used Date Smoking Tobacco: Never Assessed Comments Unknown Sex and Gender Information Value Date Recorded Sex Assigned at Not on file Legal Sex Female 1:16 PM 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
--- OUTSIDE RECORDS SUMMARY | 2024-02-12 09:05 | XMS_ITS | Encounter Summary ---
Author Organization [facility] Healthcare Address [address] [place] [address] Care Team Providers Care Furnace Repairer Name Role Phone Dayan Khan CONTRACT PARALEGAL Primary Care Provider [phone] Encounter Details Date Type Department Care Team (Late st Contact Info) Description 03/06/2011 8:30 AM OIL WELL LOGGING ENGINEER - 03/06/2011 11:59 PM OIL WELL LOGGING ENGINEER Hospital Encounter [facility] iVpin Patel Social History Tobacco Use Types Packs/Day Years Used Date Smoking Tobacco: Never Assessed Comments Unknown Sex and Gender Information Value Date Recorded Sex Assigned at Not on file Legal Sex Female 1:16 PM OIL WELL LOGGING ENGINEER Gender Identity Not on file Sexual Orientation Not on file documented as of this encounter Plan of Treatment Not on file documented as of this encounter Visit Diagnoses Not on filedocumented in this encounter Care Teams Furnace Repairer Relationship Specialty Start Date End Date Dayan Khan, CONTRACT [place] [address] PCP - General 03/05/11 12/27/15 documented as of this encounter
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
--- OUTSIDE RECORDS SUMMARY | 2024-02-12 09:05 | XMS_ITS | Encounter Summary ---
Author Organization [facility] Healthcare Address [address] [place] [address] Care Team Providers Care Kaiawhina Kohanga Reo Name Role Phone Dayan Khan NP Primary Care Provider [phone] Encounter Details Date Type Department Care Team (Late st Contact Info) Description 03/08/2011 7:18 AM MDS NURSE - 03/09/2011 10:10 AM MDS NURSE Hospital Encounter [facility] Vipin Shirley MD [address] [place] [address] Calculus of gallbladder with other cholecystitis; Nausea with vomiting; Other abnormal glucose; Asthma; Sleep apnea; Tobacco use disorder; History of allergy to other specified medicinal agents Social History Tobacco Use Types Packs/Day Years Used Date Smoking Tobacco: Never Assessed Comments Unknown Sex and Gender Information Value Date Recorded Sex Assigned at Not on file Legal Sex Female 1:16 PM 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 Gender Identity Not on file Sexual Orientation Not on file documented as of this encounter Last Filed Vital Signs Vital Sign Reading Time Taken Comments Blood Pressure 115/73 03/09/2011 8:00 AM MDS NURSE Pulse 75 03/09/2011 8:00 AM MDS NURSE Temperature - - Respiratory Rate - - Oxygen Saturation - - Inhaled Oxygen Concentration - - Weight 105.8 kg (233 lb 4 oz) 03/08/2011 11:30 A M MDS NURSE Height 157.5 cm (5' 2.01 ) 03/08/2011 11:30 AM C Body Mass Index 42.65 03/08/2011 11:30 AM MDS NURSE documented in this encounter Plan of Treatment Not on file documented as of this encounter Visit Diagnoses Diagnosis Calculus of gallbladder with other cholecystitis Nausea with vomiting Other abnormal glucose Asthma Unspecified asthma Sleep apnea Unspecified sleep apnea Tobacco use disorder History of allergy to other specified medicinal agents documented in this encounter Care Teams Kaiawhina Kohanga Reo Relationship Specialty Start Date End Date Dayan Khan, BICYCLE SERVICE TECHNICIAN [address] [place] [address] PCP - General 03/05/11 12/27/15 documented as of this encounter
--- OUTSIDE RECORDS SUMMARY | 2024-02-12 09:05 | XMS_ITS | Encounter Summary ---
Author Organization [facility] Healthcare Address [address] [place] [address] Care Team Providers Care Fisheries Technical Officer Name Role Phone Unavailable Primary Care Provider Unavailabl e Encounter Details Date Type Department Care Team (Late st Contact Info) Description 08/13/2009 12:52 AM CDT - 08/13/2009 2:05 AM CDT Hospital Encounter [facility] Gary Belcher MD [address] [facility] [place] [address] Sprain of ankle; Accidental fall on or from other stairs or steps; Unspecified place of occurrence; External cause status; Tobacco use disorder; Alcohol abuse Social History Tobacco Use Types Packs/Day Years Used Date Smoking Tobacco: Never Assessed Comments Unknown Sex and Gender Information Value Date Recorded Sex Assigned at Not on file 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
== END 2024-02-07 23:39 | disposition home or self-care (01) ==
PROVIDERS: Emergency Provider Student in an Organized Health Care Education/Training Program
DX: F19.239 Other psychoactive substance dependence with withdrawal, unspecified (principal); R41.82 Altered mental status, unspecified; R25.1 Tremor, unspecified; R94.31 Abnormal electrocardiogram [ECG] [EKG]; H53.9 Unspecified visual disturbance; F41.8 Other specified anxiety disorders; Z87.891 Personal history of nicotine dependence; G47.33 Obstructive sleep apnea (adult) (pediatric); J45.909 Unspecified asthma, uncomplicated; E11.9 Type 2 diabetes mellitus without complications; E78.5 Hyperlipidemia, unspecified
CPT/HCPCS: 36415; 70450; 80053; 80143; 80179; 80307; 81001; 82010; 82077; 82948; 84703; 85025; 93005; 96361; 96374; 99284; J3360; J7120